=== PATIENT | male | born 1970 | race Caucasian/White ===

== ENCOUNTER 2017-01-31 22:04 | Inpatient (IN) | payer OTHER ==
[~2017-01-31] VITALS: Ht 188 cm; Wt 62.3 kg
[~2017-01-31 22:04] MED LIST: [UNRECOGNIZED DRUG - REMARK]
[2017-01-31] MEDS ORDERED: SODIUM CHLORIDE 0.9% 1L BAG IV* STA (22:22)
[2017-01-31 22:36] LABS: ADD SCAN DIFF NO
[2017-01-31 22:38] LABS: ABNORMAL IP MESSAGE 1; HEMATOCRIT 41.2 % (42.0-52.0); HEMOGLOBIN 14.3 g/dl (14.0-18.0); MEAN CORPUSCULAR HEMOGLOBIN 29.1 pg (29.0-33.0); MEAN CORPUSCULAR HGB CONC 34.7 g/dl (32.0-37.0); MEAN CORPUSCULAR VOLUME 83.7 fl (82.0-101.0); MEAN PLATELET VOLUME 10.3 fl (7.4-10.4); PLATELET COUNT 272 10^3/UL (140-415); RED BLOOD COUNT 4.92 10^6/ul (4.70-6.10); RED CELL DISTRIBUTION WIDTH 14.5 % (11.5-14.5); WHITE BLOOD COUNT 6.5 10^3/ul (4.8-10.8)
[2017-01-31 22:51] LABS: INR 1.1; PROTIME 14.2 Sec (12.2-14.2); PT RATIO 1.1
[2017-01-31 22:52] LABS: PARTIAL THROMBOPLASTIN TIME 24.9 Sec (25.0-35.0)
[2017-01-31] MEDS ORDERED: ONDANSETRON 4 MG INJ IV STA (22:52)
[2017-01-31] MEDS ORDERED: morphine 4 MG/ML VIAL IV STA (22:52)
[2017-01-31 23:00] LABS: ALANINE AMINOTRANSFERASE 18 IU/L (13-69); ALBUMIN 2.7 g/dl (3.3-4.9); ALBUMIN/GLOBULIN RATIO 0.71; ALKALINE PHOSPHATASE 131 IU/L (42-121); ANION GAP 20 (8-16); ASPARTATE AMINO TRANSFERASE 59 IU/L (15-46); BILIRUBIN,INDIRECT 0.7 mg/dl (0-1.1); BILIRUBIN,TOTAL 0.7 mg/dl (0.2-1.3); BLOOD UREA NITROGEN 15 mg/dl (7-20); CALCIUM 6.9 mg/dl (8.4-10.2); CARBON DIOXIDE 25 mmol/L (21-31); CHLORIDE 84 mmol/L (97-110); CREATININE 1.22 mg/dl (0.61-1.24); GLUCOSE 170 mg/dl (70-220); SODIUM 127 mmol/L (135-144); TOTAL PROTEIN 6.5 g/dl (6.1-8.1)
[2017-01-31 23:11] LABS: POTASSIUM 2.2 mmol/L (3.5-5.1)
[2017-01-31] MEDS ORDERED: metroNIDAZOLE 500 MG/NS (PMX) 100 ML IVPB STA (23:11)
[2017-01-31] MEDS ORDERED: PIPER-TAZO 3.375 GM IV (PMX) 100 ML IVPB STA (23:11)
--- NOTE | 2017-01-31 23:11 | RADRPT ---
PROCEDURE: Chest. CLINICAL INDICATION: Chest pain. TECHNIQUE: Single frontal view of the chest was obtained. COMPARISON: None. FINDINGS: The cardiac silhouette is within normal limits. The aortic arch is unremarkable. There is no focal consolidation, vascular congestion or pleural effusion. There is no pneumothorax. IMPRESSION: No evidence for active cardiopulmonary disease. .Wayne Abarca MD, MD Date Time Electronically viewed and signed by .Wayne Abarca MD, on 01/31/2017 23:11 .T/
[2017-01-31 23:12] LABS: TROPONIN-I < 0.012 ng/ml (0.00-0.12)
[2017-01-31] MEDS: POTASSIUM CHLORIDE 250 ML IVPB SCH (23:24)
[2017-01-31 23:57] LABS: LYMPHOCYTES # 1.8 10^3/ul (0.8-2.9); MONOCYTE # 0.3 10^3/ul (0.3-0.9); NEUTROPHIL # 2.7 10^3/ul (1.6-7.5)
[2017-02-01] VITALS (46 sets, daily range): BP systolic 69–102; BP diastolic 43–83; PULSE 100–156; RESP 18–57; TEMP 97.6; Ht 188 cm; Wt 62.3 kg
[2017-02-01] MEDS ORDERED: HYDROmorphONE 1 MG/ML SYG IV STA (00:50)
--- NOTE | 2017-02-01 01:31 | RADRPT ---
PROCEDURE: CT Abdomen and Pelvis without contrast. CLINICAL INDICATION: Sepsis, abdominal pain, history of Crohn's disease. TECHNIQUE: A CT scan of the abdomen and pelvis was performed without intravenous contrast. Cameron l and sagittal reformatted images were generated. Images were reviewed on a high-resolution PACS wor kstation. CTDIvol: 6.36 mGy. DLP: 411.33 mGy-cm. One or more of the following dose reduction techniques were used: - Automated exposure control. - Adjustment of the mA and/or kV according to patient size. - Use of iterative reconstruction technique. COMPARISON: None. FINDINGS: There is mild atelectasis in both lower lobes. Evaluation of the abdominal and pelvic viscera is limited by the lack of oral and intravenous contra st. The liver is enlarged (21.8 cm) and diffusely hypodense, consistent with fatty infiltration. There are stones in the gallbladder. The common bile duct is not dilated. The spleen is not enlarged. No pancreatic lesion is identified and there is no pancreatic ductal dilatation. The adrenal glands are unremarkable. The kidneys are normal in size. There is mild symmetric perinephric fat stranding, nonspecific No hy dronephrosis is seen. No urinary stone is identified. Wall thickening is noted along a loop of jejunum in the left abdominopelvic region. There is wall t hickening and pericolonic inflammation along the proximal and mid sigmoid colon, probably representi ng Crohn's colitis. There is a small to moderate amount of abdominal and pelvic hemoperitoneum, wit h several foci of gas along the right side of the mid sigmoid colon, suggestive of a perforation in this region. The appendix is dilated (10 mm) and there are a few foci of gas adjacent to its tip, h owever there is no significant periappendiceal inflammation. No definite abscess is identified. The urinary bladder is unremarkable. The pelvic organs are within normal limits. No lymphadenopathy is identified. There is a small volume of pelvic ascites. No pneumoperitoneum is seen. There are no arterial calcifications. No suspicious osseous lesion is idenitified. A left-sided trochanteric femoral nail is partially real ged. IMPRESSION: 1. Wall thickening and pericolonic inflammation along the proximal and mid sigmoid colon, probably representing Crohn's colitis. There is also wall thickening along the loop of jejunum in the left a bdominopelvic region, possibly representing Crohn's enteritis. 2. Small to moderate amount of pneumoperitoneum, consistent with a perforated viscus. There are se veral foci of gas along the right side of the mid sigmoid colon, suggestive of a perforation at this site. No definite abscess is identified. 3. Dilated appendix (10 mm), with a few foci of gas adjacent to its tip. There is no significant pe riappendiceal inflammation, however, suggesting that these are secondary findings related to the sma ll bowel and sigmoid colon pathology. 4. Hepatomegaly and fatty infiltration of the liver. 5. Cholelithiasis. Call report: A call report of the findings was made to Dr. Dave at 01:20 a.m. on 02/01/2017. RPTAT: HTAR .Jace Washburn MD, Date Time Electronically viewed and signed by .Jace Washburn MD, on 02/01/2017 01:31 .R/
--- NOTE | 2017-02-01 02:13 | ERA ---
ER Documentation Chief Complaint Date/Time DATE: 02/01/17 TIME: 02:10 Chief Complaint abd pain hx of crohn's HPI This is a 46-year-old male comes in because of 24 hours of abdominal pain getting progressively worse. No fevers no chills. Patient does have history of Crohn's. 2-3 episodes of diarrhea per hour over the past 24 hours. No blood in the diarrhea per the patient. He has noticed some mild abdominal distention as well. No fevers or chills. No other current complaints. ROS All systems reviewed and are negative except as per history of present illness. Medications Home Meds Reported Medications [Med For Chron's] No Conflict Check 06/02/16 Allergies Allergies: Coded Allergies: No Known Allergy (Unverified , 06/01/16) PMhx/Soc History of Surgery: Yes (ANAL FISTULA,LT LEG SURGERY) Anesthesia Reaction: No Hx Neurological Disorder: No Hx Respiratory Disorders: No Hx Cardiac Disorders: No Hx Psychiatric Problems: No Hx Miscellaneous Medical Probl: Yes (CHRONS DISEASE) Hx Alcohol Use: Yes Hx Substance Use: Yes Hx Tobacco Use: Yes Smoking Status: Former smoker Physical Exam Vitals Vital Signs Date Time Temp Pulse Resp B/P Pulse Ox O2 Delivery O2 Flow Rate FiO2 02/01/17 01:55 96.8 143 16 103/81 100 Nasal Cannula 02/01/17 00:07 120 16 120/80 100 Nasal Cannula 01/31/17 23:31 130 16 120/80 100 Nasal Cannula 01/31/17 22:19 128 16 86/66 100 Room Air 01/31/17 22:15 Nasal Cannula 2 01/31/17 22:12 96.8 163 20 78/53 97 Physical Exam Const: [] Head: Atraumatic Eyes: Normal Conjunctiva ENT: Normal External Ears, Nose and Mouth. Neck: Full range of motion..~ No meningismus. Resp: Clear to auscultation bilaterally Cardio: Regular rate and rhythm, no murmurs Abd: Soft, non tender, non distended. Normal bowel sounds Skin: No petechiae or rashes Back: No midline or flank tenderness Ext: No cyanosis, or edema Neur: Awake and alert Psych: Normal Mood and Affect Result Diagram: 01/31/17222301/31/172223 Results 24 hrs Laboratory Tests Test 01/31/17 22:24 02/01/17 00:32 White Blood Count 6.510^3/ul Red Blood Count 4.9210^6/ul Hemoglobin 14.3g/dl Hematocrit 41.2% Mean Corpuscular Volume 83.7fl Mean Corpuscular Hemoglobin 29.1pg Mean Corpuscular Hemoglobin Concent 34.7g/dl Red Cell Distribution Width 14.5% Platelet Count 45538^3/UL Mean Platelet Volume 10.3fl Neutrophils % 41.0% Band Neutrophils % 26.0% Lymphocytes % 28.0% Reactive Lymphocytes % 1.0% Monocytes % 4.0% Eosinophils % % Nucleated Red Blood Cells % 1.0/100WBC Neutrophils # 2.710^3/ul Lymphocytes # 1.810^3/ul Monocytes # 0.310^3/ul Eosinophils # 10^3/ul Prothrombin Time 14.2Sec Prothrombin Time Ratio 1.1 INR International Normalized Ratio 1.10 Activated Partial Thromboplast Time 24.9Sec Sodium Level 127mmol/L Potassium Level 2.2mmol/L Chloride Level 84mmol/L Carbon Dioxide Level 25mmol/L Anion Gap 20 Blood Urea Nitrogen 15mg/dl Creatinine 1.22mg/dl Glucose Level 170mg/dl Lactic Acid Level 6.8mmol/L 3.9mmol/L Calcium Level 6.9mg/dl Total Bilirubin 0.7mg/dl Direct Bilirubin 0.00mg/dl Indirect Bilirubin 0.7mg/dl Aspartate Amino Transf (AST/SGOT) 59IU/L Alanine Aminotransferase (ALT/SGPT) 18IU/L Alkaline Phosphatase 131IU/L Troponin I < 0.012ng/ml Total Protein 6.5g/dl Albumin 2.7g/dl Globulin 3.80g/dl Albumin/Globulin Ratio 0.71 Current Medications Medications (Trade) Dose Ordered Sig/Malcom Route PRN Reason Start Time Stop Time Status Last Admin Dose Admin Sodium Chloride (NS) 2,020 ml BOLUS OVER 2 HOURS STAT IV* 01/31/17 22:22 01/31/17 22:23 DC 01/31/17 22:24 Morphine Sulfate (morphine) 4 mg ONCE STAT IV 01/31/17 22:52 01/31/17 22:53 DC 01/31/17 22:58 Ondansetron HCl 4 mg 4 mg ONCE STAT IV 01/31/17 22:52 01/31/17 22:53 DC 01/31/17 22:58 Piperacillin Sod/ Tazobactam Sod 100 ml @ 200 mls/hr ONCE STAT IVPB 01/31/17 23:11 01/31/17 23:40 DC 01/31/17 23:21 Metronidazole 100 ml @ 100 mls/hr ONCE STAT IVPB 01/31/17 23:11 02/01/17 00:10 DC 02/01/17 00:05 Potassium Chloride (KCl 40 MEQ/250 ML NS) 250 ml @ 62.5 mls/hr Q4H IVPB 01/31/17 23:30 02/01/17 07:29 01/31/17 23:24 Hydromorphone HCl (Dilaudid) 1 mg ONCE STAT IV 02/01/17 00:50 02/01/17 00:53 DC 02/01/17 00:59 Procedures/MDM Patient's infectious symptoms have not stabilized and the patient is at risk of rapid decompensation. The patient will be admitted for careful hydration, antibiotic therapy, and infectious source control. Severe Sepsis Assessment: Infectious Source: Intestinal perforation End organ damage indicated by: Lactate > 2.0 mmol/L Hypotension( SBP < 90 or >40 mmHG drop or MAP < 65) Severe Sepsis Managment: Blood Cultures X 2 before broad spectrum antibiotics initiated within 3 hours of recognition. 30 ml/kg NS bolus Completed Initial Lactate: 6.8 Repeat Lactate pending Critical Care: Time: 45 minutes Treatments/Evaluations: Emergent fluid management, while maintaining close respiratory support. Immediate broad spectrum antibiotic therapy. Simultaneous assessment for possible sources in order to direct therapy. Consideration for invasive and chemical support to prevent respiratory or cardiac collapse. Septic Shock Assessment (1 hour post 30 ml/kg fluid bolus): Hypotension (SBP < 90 or 40 mmHg drop, MAP < 65): No Lactic acid > 4.0 yes Perfusion Reassessment for Septic Shock: Temp 98.9, Pulse 113, RR 18, BP 120/80 Heart Exam: Tachycardic Lung Exam: No Crackles Capillary Refill: Delayed Peripheral Pulses: Radially present Skin: Mottled, pale Accepting Care Team: Current data and ongoing care discussed. Time: 2 AM Primary Provider: Hospitalist Consulting: XOXOXO Outstanding Data: none Dr. Rankin was consulted from surgery for sigmoid perforation. Per his recommendations, patient admitted to ICU. Hospitalist made aware. Hospitalist evaluated patient here in the ER. Chest X-ray 1V Interpreted by me: Soft Tissue: No acute abnormalities Bones: No acute abnormalities Mediastinum/Cardiac Silhouette/Lungs: No acute abnormalities EKG: Rate/Rhythm: Sinus tachycardia at 1 35 bpm QRS, ST, T-waves: [No changes consistent w/ acute ischemia] Impression: Sinus tachycardia Departure Diagnosis: Primary Impression: Sepsis Qualified Code: A41.9 - Sepsis, due to unspecified organism Additional Impression: Intestinal perforation Condition: Critical CATIE LEBLANC Feb 01, 2017 02:13
[2017-02-01] MEDS ORDERED: D5W-0.45 NACL + KCL 20 MEQ 1,000 ML IV SCH (03:04)
[2017-02-01] MEDS ORDERED: ONDANSETRON 4 MG INJ IV PRN (03:30)
[2017-02-01] MEDS ORDERED: SOD CHLORIDE 0.9% 250 ML IV ONE (03:30)
[2017-02-01] MEDS: PIPER-TAZO 3.375 GM IV (PMX) 100 ML IVPB SCH ×4 (03:30→23:10)
[2017-02-01] MEDS: POTASSIUM CHLORIDE 250 ML IVPB SCH ×2 (03:30→04:30)
[2017-02-01] MEDS ORDERED: morphine 2 MG INJ IV PRN (03:30)
[2017-02-01] MEDS ORDERED: D5-NS + KCL 20 MEQ 1,000 ML IV SCH (03:30)
[2017-02-01 05:25] LABS: ADD SCAN DIFF NO
[2017-02-01 05:33] LABS: ABNORMAL IP MESSAGE 1; BASOPHIL # 0.1 10^3/ul (0.0-0.1); BASOPHILS % 1.3 % (0.0-2.0); HEMATOCRIT 37.2 % (42.0-52.0); HEMOGLOBIN 12.9 g/dl (14.0-18.0); LYMPHOCYTES # 0.3 10^3/ul (0.8-2.9); LYMPHOCYTES % 6.9 % (15.0-51.0); MEAN CORPUSCULAR HEMOGLOBIN 29.1 pg (29.0-33.0); MEAN CORPUSCULAR HGB CONC 34.7 g/dl (32.0-37.0); MEAN PLATELET VOLUME 10.8 fl (7.4-10.4); MONOCYTE # 0.3 10^3/ul (0.3-0.9); MONOCYTES % 5.6 % (0.0-11.0); NEUTROPHIL # 3.8 10^3/ul (1.6-7.5); NEUTROPHILS % 85.1 % (39.0-77.0); NUCLEATED RED BLOOD CELLS% 0.4 /100WBC (0.0-0.0); PLATELET COUNT 193 10^3/UL (140-415); RED BLOOD COUNT 4.43 10^6/ul (4.70-6.10); RED CELL DISTRIBUTION WIDTH 14.6 % (11.5-14.5); WHITE BLOOD COUNT 4.5 10^3/ul (4.8-10.8)
[2017-02-01 05:38] LABS: ALBUMIN/GLOBULIN RATIO 0.68; BILIRUBIN,INDIRECT 0.4 mg/dl (0-1.1); BILIRUBIN,TOTAL 0.4 mg/dl (0.2-1.3); CREATININE 1.26 mg/dl (0.61-1.24); TOTAL PROTEIN 4.9 g/dl (6.1-8.1)
[2017-02-01 05:45] LABS: POTASSIUM 2.6 mmol/L (3.5-5.1)
[2017-02-01 05:46] LABS: CALCIUM 5.9 mg/dl (8.4-10.2); MAGNESIUM 0.6 mg/dl (1.7-2.5)
[2017-02-01] MEDS ORDERED: SODIUM CHLORIDE 0.9% 1L BAG IV* STA (05:46)
[2017-02-01] MEDS ORDERED: POTASSIUM CHLORIDE 20 MEQ in SOD CHLORIDE 0.9% 100 ML IVPB ONE (06:30)
[2017-02-01] MEDS ORDERED: CALCIUM GLUCONATE 10% 2 GM in SOD CHLORIDE 0.9% 100 ML IVPB ONE ×2 (06:30→16:00)
[2017-02-01] MEDS ORDERED: MAGNESIUM SULFATE 6 GM in SOD CHLORIDE 0.9% 100 ML IVPB ONE (06:30)
[2017-02-01] MEDS: PANTOPRAZOLE 40 MG INJ IV SCH (06:35)
[2017-02-01] MEDS: MAG SULFATE 2GM IN 50 ML IVPB SCH ×3 (07:23→11:18)
--- NOTE | 2017-02-01 08:22 | HP ---
DATE OF ADMISSION: 01/31/2017 CHIEF COMPLAINT: Abdominal pain and diarrhea. HISTORY OF PRESENT ILLNESS: The patient is a 46-year-old male with a history of Crohn's disease sterling gnosed 4 years ago, and history of anal fistula, who presented to the emergency department complaini ng of abdominal pain, diarrhea, and vomiting. He stated the pain started 3 weeks ago and was associ ated with watery diarrhea, which according to him he was experiencing every 45 minutes. His vomitin g was described as nonbilious, nonbloody. He also denies blood in his diarrhea. Over the past 2 da ys; however, he only had 1 episode of diarrhea on each day, so diarrhea has gotten better over the p ast 2 days. He denied any chest pain, shortness of breath, fever, or chills. When he presented to the ER, he was hypotensive with a blood pressure of 78/53, tachycardia with a h eart rate of 163, respiratory rate 20, temperature 96.8, oxygen saturation 97%. Laboratory value sh ows a sodium of 127, potassium 2.2, chloride 84, lactic acid 6.8, calcium 6.9 with albumin of 2.7, A ST 59, alkaline phosphatase 131. CT of abdomen and pelvis without contrast was done, it showed findings of Crohn's colitis and possib ly Crohn's enteritis. Also, he was noted to have a small to moderate amount of pneumoperitoneum, co nsistent with a perforated viscus, right side of the mid sigmoid colon perforation without definite abscess. Also he was noted to have a dilated appendix with a few foci of gas adjacent without significant periappendiceal inflammation, so this is suggestive that this is a secondary finding re lated to the small bowel and sigmoid colon pathology. He also has cholelithiasis and hepatomegaly w ith fatty infiltration of the liver. Patient was started on antibiotics and given IV fluid, pain me dication, and his potassium was replaced. Dr. Kuo, the on-call surgeon, is aware of patient's pr esentation, who recommended an ICU admission. REVIEW OF SYSTEMS: A 12-point review of systems was performed and negative except as mentioned in H PI. PAST MEDICAL HISTORY: As per HPI. PAST SURGICAL HISTORY: He has a knee surgery and a possible surgery for anal fistula. SOCIAL HISTORY: He used to smoke, but he said he quit about a month ago. He also used to drink on a weekly basis in the past. Denied a history of illicit drug use. FAMILY HISTORY: Father with history of thyroid cancer. ALLERGIES: NO KNOWN DRUG ALLERGIES. HOME MEDICATIONS: He takes medication for Crohn's, but he does not remember the name. PHYSICAL EXAMINATION: VITAL SIGNS: Blood pressure 103/81, heart rate 143, respiratory rate 16, temperature 96.8, oxygen s aturation 100% on 2 liters. GENERAL: The patient looks uncomfortable because of the abdominal pain and also he just started hav ing continuous hiccups. He is, however, answering questions appropriately, but had to stop talking between obtain because of pain. HEENT: No obvious head deformity. No scleral icterus. Pupils reactive to light. CARDIOVASCULAR: Tachycardic, regular rhythm. LUNGS: Clear anteriorly. ABDOMEN: Not distended, was tender. He does have positive bowel sounds. EXTREMITIES: No edema. NEUROLOGIC: Unable to fully assess because of his pain, but he was noted to be able to spontaneousl y move all his extremities. LABORATORY: Pertinent positive results as mentioned in the HPI. IMAGING: CT abdomen and pelvis with results as mentioned in the HPI, and chest x-ray with no eviden ce for active cardiopulmonary disease. IMPRESSION: 1. Perforated sigmoid colon. 2. Abdominal pain, secondary to above. 3. History of Crohn's disease, diagnosed 4 years ago. 4. Diarrhea, likely secondary to Crohn's flare up. 5. Severe hypokalemia. 6. Hyponatremia. 7. Lactic acidosis. 8. Sinus tachycardia, likely a combination of pain and dehydration from excessive diarrhea. PLAN: We will admit to ICU. We will keep n.p.o. with IV fluids. He will be placed on Zofran. We will provide pain medication as needed. We will replace electrolytes. We will follow up on culture results. Currently, he is awaiting surgical evaluation and he is likely to go to the operating [place] [facility] in the morning. We will trend his lactic acid. We will also place a gastroenterology consult to help manage his Crohn's disease. He only had 2 episodes of diarrhea over the past 2 days, and prior to that for 3 weeks he had been having diarrhea every 45 minutes. We will collect stool sample, as he does have diarrhea again. Given perforated colon with lactic acidosis/infection, I am kind of h esitant to give him steroids, given the possible infectious process, and we will leave the decision up to GI. Further workup and management will be per clinical course. Dictated By: CATIE GALAN/YAN Conf#: [id number] DID#: [id number]
--- NOTE | 2017-02-01 09:12 | HPN ---
Date/Time of Note Date/Time of Note DATE: 02/01/17 TIME: 09:11 Interval H&P Admission Note Pt. seen H&P reviewed: No system changes Pt. seen H&P reviewed. No system changes (I attest that I have seen and examined the patient and reviewed the operation in detail, as well as its risks , benefits and alternatives of the operation). I attest that I have seen and examined the patient and reviewed in detail the operation, and its associated risks, benefits and alternative. I have answered all the patient's questions to the best of my ability and the patient wishes to proceed. Please refer to rest of electronic medical record for additional updates. TI HILTON M.D. Feb 01, 2017 09:12
[2017-02-01] MEDS: METOCLOPRAMIDE 10 MG INJ IV SCH ×3 (09:49→23:10)
--- NOTE | 2017-02-01 09:59 | CONS ---
[facility] INITIAL INPATIENT CONSULTATION NOTE DATE OF CONSULTATION: 02/01/2017 PLACE OF SERVICE: [facility] Emergency Department IMPRESSION AND PLAN: A very pleasant, but unfortunate 46-year-old gentleman with history of Crohn's, presenting with Crohn's colitis that appears to be moderate to severe, with perhaps a small perforation around the sigmoid colon. He does not present a picture of a major contamination of the abdominal cavity, but given his slight peritoneal signs and abdominal pain as well as tachycardia I have recommended that we consider laparoscopic exploration with washout, and if there is enough evidence of uncontrolled perforation to then consider a partial enterectomy or colon resection, and possible ostomy as a consequence. He also has fatty liver disease on the CAT scan, and we can consider doing a biopsy of the liver at that time if needed. I explained the operation and the rationale behind our recommendation as well as the risks, benefits and alternatives in detail with the patient along with his father at bedside, and obtained a consent for the operation. Patient and family appeared to understand and agreed with the plan. With above assessment, I recommend the followin. Continue aggressive resuscitation. 2. Continue broad-spectrum antimicrobials. 3. Check lactic acid every 6 hours until stabilized. 4. To the operating room in the next available time slot today for above operation. Thank you again for allowing us to participate in the care of this very pleasant gentleman and his wonderful family. If there are any questions, please feel free to contact me at . Total visit time 45 minutes, of which more than half was spent in [id number] discussion with the patient, discussions with his family, as well as coordination of care between multiple physicians and providers. UPDATED CLINICAL SUMMARY: Patient is a very pleasant 46-year-old gentleman with history of Crohn's disease as well as prior surgery for anal fistula approximately 5 years ago, and a torn meniscus repair on the left knee, presenting with abdominal pain associated with a few weeks' duration of diarrhea. COMORBIDITIES: 1. Crohn's disease. 2. Repair of anal fistula approximately 5 years ago. 3. Torn meniscus on the left knee, status post repair. DATE OF ADMISSION: 02/01/2017 HISTORY OF PRESENT ILLNESS: The patient is a very pleasant 46-year-old gentleman with above-mentioned comorbidities whom we were kindly asked to consult regarding management of abdominal pain. The patient's Crohn's disease was diagnosed approximately 4 years ago and had a history of anal fistula repair around the same time. He reported having diarrhea for a number of weeks and associated with recent nausea and vomiting and abdominal pain that brought him to the emergency department. There was no blood in his urine diarrhea or in his urine. His emesis also was nonbloody. The patient's initial presentation was concerning for shock with blood pressure 78/53 and tachycardic in 140s to 160s. Interestingly, his white blood cell count was normal, but his lactic acid was 6.8. He had a CT scan of abdomen and pelvis that demonstrated Crohn's colitis and possible Crohn's enteritis. He also had small amount of pneumoperitoneum with small bubbles of air around the colon and perhaps slight amount in the underside of the diaphragm, but no major amount of free air and no abscess noted. The patient was resuscitated and showed slight improvement in his tachycardia and his lactic acid in the ensuing next few hours. Note that I personally reviewed the patient's CT scan at approximately 1:30 a.m. and my impression was that of a contained perforation, and the patient needed further resuscitation, and because of this we did not schedule an emergency operation in the middle of the night. This morning he reported feeling slightly better, but still had abdominal pain. No other major complaints. ALLERGIES: NO KNOWN DRUG ALLERGIES. MEDICATIONS: We do not have a list of his medications currently. INPATIENT MEDICATIONS: Include: 1. DuoNeb. 2. Dilaudid. 3. Magnesium sulfate. 4. Reglan. 5. Morphine. 6. Zofran. 7. Protonix IV. 8. Zosyn. 9. Potassium chloride. SOCIAL HISTORY: The patient lives with his family. He reported quitting smoking about a month ago. He drinks on social occasions and does not use any intravenous drugs. FAMILY HISTORY: No mention of major medical, surgical, or oncologic problems in the family. There is history of thyroid cancer in the patient's father, but no other malignancies of the intestine or history of Crohn's disease mentioned. REVIEW OF SYSTEMS: Other than the above-mentioned, there are no other pertinent positives or pertinent negatives in a complete 14-point review of systems. PHYSICAL EXAMINATION: GENERAL: The patient appears to be a very pleasant gentleman of non- descent, lying in bed relatively comfortably and in no acute distress. BMI 19.4. VITAL SIGNS: Temperature 97.6. Blood pressure 94/67, pulse 148, respiratory rate 16, pulse oximetry 95% on 2 liters of nasal cannula. HEENT: Normocephalic and atraumatic. Extraocular muscles and hearing are grossly intact bilaterally and symmetrically. Sclerae are nonicteric. Oral cavity is clear; oral mucosa appeared to be pink and moist. Dentition: fair. NECK: Supple. There is no lymphadenopathy or JVD. There is no submental, submandibular or supraclavicular lymphadenopathy. CHEST: Rises symmetrically with each breath; patient is breathing comfortably. There are no audible wheezes, rales or rhonchi on the gross exam. HEART: Pulse is regular and palpable on the right wrist. Capillary refill was normal. Carotid pulses are palpable bilaterally and symmetrically in the neck. EXTREMITIES: Lower extremities contain no pitting edema around the ankles bilaterally and symmetrically. ABDOMEN: Shows a slightly distended abdomen that is soft, but tender to palpation in all quadrants with mild guarding and mild peritoneal signs. There is no evidence of organomegaly, caput medusae, engorged subcutaneous veins, or obvious evidence of ascites. SKIN: Appears to be pink and feels warm to touch. NEUROLOGIC: Awake, alert, and follows commands appropriately. LABORATORY VALUES: White blood cell count 4.5, hemoglobin 12.9, platelets 193, 000. Electrolytes show sodium 133, potassium 2.6, improved from admission level of 2.2. CO2 22, creatinine 1.26, up from 1.22. Lactic acid was 6.8, on admission 3.9 following admission around 12:30 midnight, and then 4.8 at approximately 3:50 a.m. Calcium 5.9, magnesium 0.6, total bilirubin 0.4, AST 109, ALT 34, alkaline phosphatase 77, albumin 2.0 with rehydration. INR 1.10. IMAGING: As above. Note that I personally reviewed the CT scan as mentioned above, at approximately 1:30 a.m. when I was initially called with the patient' s information, and I agree in general with their overall reported findings. Note that the official report mentions wall thickening and pericolonic inflammation along the proximal and mid sigmoid colon, probably representing Crohn's colitis. There is also wall thickening along the loop of jejunum in the left abdominopelvic region, possibly representing Crohn's enteritis. There is a small to moderate amount of pneumoperitoneum consistent with a perforated viscus. Several foci of gas along the right side of the mid sigmoid colon are present, suggestive of a perforation at this site. No definite abscess was identified. The appendix was dilated to 10 mm with a few foci of gas adjacent to its tip. There was no significant periappendiceal inflammation. There is hepatomegaly and fatty infiltration of the liver, and cholelithiasis noted. Dictated By: TI RICHMOND/YAN Conf#: [id number] DID#: [id number]
[2017-02-01] MEDS: LEVALBUTEROL (NEB) 0.63 MG/3 ML AMP HHN PRN ×2 (10:47→15:29)
[2017-02-01] MEDS ORDERED: SOD CHLORIDE 0.9% 1,000 ML IV ONE (11:30)
--- NOTE | 2017-02-01 12:00 | CONS ---
DATE OF ADMISSION: 02/01/2017 DATE OF CONSULTATION: TYPE OF CONSULTATION: Pulmonary. REASON FOR CONSULTATION: Shortness of breath. Thank you, Dr. Kuo, for this consultation. HISTORY OF PRESENT ILLNESS: This is a 46-year-old gentleman with a history of Crohn's disease, with a history of anal fistula repair 5 years ago, comes in with a several-day history of increasing abd ominal pain, nausea, vomiting and increasing abdominal distention. He had nonbloody emesis. No rect al bleeding; however, on admission found to have significant leukocytosis and lactic acidosis. CT o f the abdomen was performed and demonstrated colitis with possible enteritis and pneumoperitoneum co ncerning for possible perforation. The patient is to be taken to the OR emergently this morning by Dr. Kuo for exploration and currently remains mildly tachycardic and tachypneic. PAST MEDICAL HISTORY: Crohn disease and torn left meniscus, status post repair. SOCIAL HISTORY: He has a positive tobacco history, smoked half a pack a day up until 2 weeks ago. D enies any history of inhaler use. No history of drug use. MEDICATIONS: Per chart. ALLERGIES: NONE. FAMILY HISTORY: Noncontributory. SYSTEMS REVIEW: A 14-point review of systems was negative other than that mentioned above. PHYSICAL EXAMINATION: GENERAL: Well-nourished, well-developed gentleman, appears comfortable at rest, no acute distress. VITAL SIGNS: Temperature 98, pulse is 140, blood pressure 97/67, O2 saturation 96% on 2 L nasal can nula. NECK: Supple. No JVD or lymphadenopathy. CARDIAC: S1, S2, no added sounds or murmurs. CHEST: Diminished air entry bilaterally. ABDOMEN: Distended with mild tenderness, diminished bowel sounds. EXTREMITIES: No cyanosis, clubbing or edema. NEUROLOGIC: Generalized weakness. LABORATORY DATA: White count 4.5, hemoglobin 12.9, platelets of 193. Sodium 133, potassium 2.6, BU N 18, creatinine 1.26, bicarbonate was 22. Lactic acid initially 6.8, now 4.8, calcium 5.9. CT abdomen shows Crohn's colitis, small pneumoperitoneum with perforated viscus. IMPRESSION AND PLAN: 1. Acute abdomen. 2. Possible perforated bowel. 3. Severe sepsis. 4. Hypoxemia, likely secondary to hypoventilation from distended abdomen and diaphragmatic splintin g. Patient will require: 1. Emergent surgical evaluation with exploratory laparotomy. 2. Correction of electrolyte abnormalities preoperatively. 3. Adequate pain control. 4. DVT and GI prophylaxis. 5. Post-extubation incentive spirometry and surgical recommendations. Dictated By: RAMON CAMPA/YAN Conf#: [id number] DID#: [id number]
[2017-02-01 12:58] LABS: ADD SCAN DIFF NO
[2017-02-01 13:01] LABS: ABNORMAL IP MESSAGE 1; HEMATOCRIT 35.3 % (42.0-52.0); HEMOGLOBIN 11.9 g/dl (14.0-18.0); MEAN CORPUSCULAR HGB CONC 33.7 g/dl (32.0-37.0); MEAN CORPUSCULAR VOLUME 85.9 fl (82.0-101.0); MEAN PLATELET VOLUME 10.9 fl (7.4-10.4); PLATELET COUNT 133 10^3/UL (140-415); RED BLOOD COUNT 4.11 10^6/ul (4.70-6.10); RED CELL DISTRIBUTION WIDTH 14.9 % (11.5-14.5); WHITE BLOOD COUNT 5.9 10^3/ul (4.8-10.8)
[2017-02-01 13:17] LABS: ALBUMIN 1.8 g/dl (3.3-4.9); ALBUMIN/GLOBULIN RATIO 0.64; BILIRUBIN,INDIRECT 0.2 mg/dl (0-1.1); BILIRUBIN,TOTAL 0.2 mg/dl (0.2-1.3); CALCIUM 6.1 mg/dl (8.4-10.2); CREATININE 1.19 mg/dl (0.61-1.24); MAGNESIUM 2.4 mg/dl (1.7-2.5); PHOSPHORUS 3.9 mg/dl (2.5-4.9); TOTAL PROTEIN 4.6 g/dl (6.1-8.1)
[2017-02-01 14:07] LABS: LYMPHOCYTES # 0.6 10^3/ul (0.8-2.9); MONOCYTE # 0.9 10^3/ul (0.3-0.9); NEUTROPHIL # 4.2 10^3/ul (1.6-7.5); PLATELET ESTIMATE PLT APPEAR ADEQUATE
[2017-02-01] MEDS: NS + KCL 20 MEQ 1,000 ML IV SCH ×3 (14:30→23:11)
[2017-02-01] MEDS ORDERED: POTASSIUM CHLORIDE 250 ML IVPB ONE (14:30)
[2017-02-01] MEDS ORDERED: SOD CHLORIDE 0.9% 500 ML IV ONE (14:30)
[2017-02-01] MEDS ORDERED: PROPOFOL 20 ML ONE (16:50)
[2017-02-01] MEDS ORDERED: NEOSTIGMINE 3 MG/3 ML SYRINGE ONE (16:50)
[2017-02-01] MEDS ORDERED: ROCURONIUM 50 MG INJ ONE (16:50)
[2017-02-01] MEDS ORDERED: MIDAZOLAM 1 MG/ML 2 ML INJ ONE ×2 (16:50→18:02)
[2017-02-01] MEDS ORDERED: GLYCOPYRROLATE 0.4 MG INJ ONE (16:50)
[2017-02-01] MEDS ORDERED: LIDOCAINE 2% (SDV) 5 ML INJ ONE (16:50)
[2017-02-01] MEDS ORDERED: FENTAnyl 50 MCG/ML VIAL ONE ×2 (16:51→18:12)
[2017-02-01] MEDS ORDERED: HYDROCORTISONE 100 MG INJ ONE (17:20)
[2017-02-01] MEDS ORDERED: BUPIVACAINE 0.25%/EPI (SDV) 30 ML INJ ONE (17:47)
[2017-02-01] MEDS ORDERED: BUPIVACAINE 0.25%/EPI (SDV) 30 ML INJ INJ ONE (18:18)
[2017-02-01] MEDS ORDERED: FUROSEMIDE 20 MG INJ ONE (19:23)
[2017-02-01] MEDS ORDERED: NA PHOSPHATE/BIPHOS 133 ML ENEMA PR PRN (20:30)
[2017-02-01] MEDS ORDERED: DOCUSATE SODIUM 100 MG CAP PO PRN (20:30)
[2017-02-01] MEDS ORDERED: BISACODYL 10 MG SUPP PR PRN (20:30)
[2017-02-01] MEDS ORDERED: ALBUMIN HUMAN 5% 250 ML ONE ×2 (20:50→21:03)
--- NOTE | 2017-02-01 20:50 | OPR ---
Date/Time of Note Date/Time of Note DATE: 02/01/17 TIME: 20:48 Operative Report Free Text/Dictation [facility] Immediate Post Operative Note: Pre-op Diagnosis: perforated viscus in the setting of Crohn's dz Post-Op Diagnosis: perforated sigmoid colon in the setting of Crohn's dz Procedure: lap to open Cronin's procedure with end colostomy, liver biopsy and abdominal lavage with MARTIN Surgeon: Raina Hilton MD Technology Training Associate: none [facility] Anesthesiologist: Dr. Messer Findings: as above EBL: 200 ml Blood Products: none Specimen: sigmoid colon and liver core needle biopsy seg 5 (x3 cores) Complication: None Disposition: to pacu Disclaimer: Inadvertent spelling and grammatical errors are likely due to EHR/ dictation use and do not reflect on the quality of the delivered patient care. TI HILTON M.D. Feb 01, 2017 20:50
[2017-02-01 21:12] LABS: ADD SCAN DIFF NO
[2017-02-01 21:13] LABS: ABNORMAL IP MESSAGE 1; BASOPHILS % 0.4 % (0.0-2.0); HEMATOCRIT 35.3 % (42.0-52.0); HEMOGLOBIN 11.2 g/dl (14.0-18.0); LYMPHOCYTES # 0.3 10^3/ul (0.8-2.9); MEAN CORPUSCULAR HEMOGLOBIN 28.4 pg (29.0-33.0); MEAN CORPUSCULAR HGB CONC 31.7 g/dl (32.0-37.0); MEAN CORPUSCULAR VOLUME 89.6 fl (82.0-101.0); MEAN PLATELET VOLUME 11.3 fl (7.4-10.4); MONOCYTE # 0.3 10^3/ul (0.3-0.9); MONOCYTES % 4.5 % (0.0-11.0); NEUTROPHIL # 6.5 10^3/ul (1.6-7.5); NEUTROPHILS % 89.5 % (39.0-77.0); NUCLEATED RED BLOOD CELLS% 0.3 /100WBC (0.0-0.0); PLATELET COUNT 110 10^3/UL (140-415); RED BLOOD COUNT 3.94 10^6/ul (4.70-6.10); RED CELL DISTRIBUTION WIDTH 15.5 % (11.5-14.5); WHITE BLOOD COUNT 7.3 10^3/ul (4.8-10.8)
[2017-02-01 21:18] LABS: LYMPHOCYTES % 4.2 % (15.0-51.0)
[2017-02-01 21:23] LABS: ALBUMIN 1.7 g/dl (3.3-4.9); POTASSIUM 3.3 mmol/L (3.5-5.1)
[2017-02-01 21:24] LABS: INR 1.37; PROTIME 16.9 Sec (12.2-14.2); PT RATIO 1.3
[2017-02-01 21:25] LABS: CREATININE 1.24 mg/dl (0.61-1.24); MAGNESIUM 2.3 mg/dl (1.7-2.5); PARTIAL THROMBOPLASTIN TIME 37.9 Sec (25.0-35.0); PHOSPHORUS 5.5 mg/dl (2.5-4.9)
[2017-02-01 21:26] LABS: ALBUMIN/GLOBULIN RATIO 0.68; BILIRUBIN,INDIRECT 0.1 mg/dl (0-1.1); BILIRUBIN,TOTAL 0.1 mg/dl (0.2-1.3); TOTAL PROTEIN 4.2 g/dl (6.1-8.1)
[2017-02-01 21:40] LABS: AADO2 Arterial 348.6 mmHg (7.0-24.0); Allen Test ACCEPTAB; Arterial Base Excess -11.8 mmol/L (-3.0-3); Arterial COHb 0.3 % (0.0-3.0); Arterial Fraction of Oxyhgb 96.6 % (93.0-99.0); Arterial HCO3 14.5 mmol/L (22.0-26.0); Arterial MetHb 0.1 % (0.0-1.5); Arterial Total Hemglobin 10.6 g/dl (12.0-18.0); Blood Gas Low PEEP Setting 0 cmH2O; MODE VENT - AC
[2017-02-01] MEDS: HYDROmorphONE 1 MG/ML SYG IV PRN (21:44)
[2017-02-01] MEDS ORDERED: DEXTROSE 50% 50 ML SYRINGE ONE (22:02)
[2017-02-01] MEDS ORDERED: DEXTROSE 50% 50 ML SYRINGE IV STA (22:07)
--- NOTE | 2017-02-01 22:36 | RADRPT ---
PROCEDURE: XR Chest. CLINICAL INDICATION: Intubation. TECHNIQUE: Portable AP supine view of the chest was obtained. COMPARISON: 01/31/2017 FINDINGS: The cardiomediastinal silhouette is within normal limits. Distal tip of the new endotracheal tube i s in good position projecting 5.2 cm above the hira. A new nasogastric/orogastric tube tip is bel ow the diaphragm and inferior margin of the exposure in the region of the mid stomach. Interval dev elopment of bibasilar subsegmental atelectasis worse on the left is seen. The osseous structures ar e intact with no evidence for acute abnormality. RPTAT:HJJR IMPRESSION: 1. Distal tip of the new endotracheal tube is in good position projecting 5.2 cm above the hira. 2. New nasogastric/orogastric tube distal tip is below the inferior margin of the exposure within t he region of the stomach. 3. Development of bibasilar subsegmental atelectasis compared to 01/31/2017. Physician Myron Date Time Electronically viewed and signed by Physician Myron on 02/01/2017 22:36 JR/
[2017-02-01] MEDS: PROPOFOL 100 ML IV SCH (23:19)
[2017-02-02] VITALS (60 sets, daily range): BP systolic 85–121; BP diastolic 53–78; PULSE 105–141; RESP 12–36
--- NOTE | 2017-02-02 00:50 | OPR ---
[facility] OPERATIVE NOTE DATE OF OPERATION: 02/01/2017 PLACE OF SERVICE: [facility] PREOPERATIVE DIAGNOSES: 1. Crohn disease with perforated bowel. 2. Repair of anal fistula approximately 5 years ago. 3. Torn meniscus on the left knee status post repair. POSTOPERATIVE DIAGNOSES 1. Crohn disease with perforation of sigmoid colon and sepsis. 2. Repair of a fistula approximately 5 years ago. 3. Torn meniscus on the left knee status post repair. OPERATION PERFORMED: 1. Laparoscopic exploration converted to open sigmoid colectomy with Deena type procedure and end colostomy. 2. Core needle liver biopsy, segment 5 x3. 3. Lysis of adhesions. 4. Abdominal lavage. SURGEON: Ti Kuo MD HEATING AND VENTILATING DRAFTER: None. ANESTHESIA: General endotracheal tube anesthesia. ANESTHESIOLOGIST: Marcio Dougherty MD BRIEF SUMMARY: An otherwise uncomplicated diagnostic laparoscopy was converted first to hand assist and then to open exploration when perforated sigmoid colon was found and it was resected with a Deena type procedure and end colostomy as well as core needle liver biopsy, segment 5, due to presence of fatty liver disease, lysis of adhesions, and abdominal lavage. BRIEF HISTORY: The patient is a very pleasant 46-year-old gentleman with above- mentioned comorbidities who was admitted through the emergency department with what appeared to be a perforated viscus in the setting of Crohn disease. We spent a number of hours trying resuscitate the patient and even though he was somewhat improved with IV fluids and intravenous antimicrobials, his lactic acid was still in a 4.5 range and he had peritoneal type signs. I had consented the patient for an exploration and clearly indicated to him and his family that the operation would depend completely on what we find in the operating room. I explained to them the range of different findings of which would be anywhere from a clean contained perforation of the colon to a perforation that is jonathan and presence of stool, and the possibility of operations would include laparoscopic lavage versus exploration versus bowel resection and possible need for an ostomy placement. We also reviewed the risks , benefits, and alternatives, and after careful consideration of all of these options, the patient and family appeared to understand and agreed with plans. STATEMENT OF INFORMED CONSENT: The patient and family appeared to understand the risk of the operation to include, but not be limited to risk of postoperative pain, scar tissue, possible infection or bleeding requiring other interventions such as placement of drainage catheters under x-ray guidance or even operative interventions, possible need for bowel resection and ostomy placement, and further need for surgical takedown of the ostomy, possible injury to surrounding structures including bowel, bladder, bile duct, or blood vessels, or other solid organs such as liver, pancreas, kidneys, or other organs causing significant increase in morbidity and chance of mortality, and possibly requiring other interventions. We also discussed specifically about Crohn disease and how this disease process puts him at increased risk for fistula formation as well as further issues with bowel erosion, perforation, and enterocutaneous fistulas. We also discussed the potential of more serious problems, such significant pulmonary embolism causing major pulmonary dysfunction, myocardial arrhythmias, and infarctions, and even . We also discussed potential of blood transfusions, although I thought that this chance was very low. The patient and family appeared to understand all the above and agreed with the plans. OPERATIVE DETAILS: After obtaining informed consent, the patient was brought into the operating room and was placed in a normal supine position where successful general endotracheal tube anesthesia was performed. Intravenous access was assured by anesthesia and intravenous fluids and intravenous antimicrobials were continued. Note that the patient remained somewhat hypotensive with heart rate in the 130s in the early phases of the operation. We prepped and draped the patient's abdominal skin from the nipple line down to the level of the groins in the usual sterile fashion after placing him in a supine stirrups position. We then called a surgical time-out where patient's identification, date of , nature of the operation, presence of needed antimicrobials, presence of needed equipment, and any other concerns were reviewed and agreed upon by all members of the operating room team. I then placed a 5 mm skin incision in the right lower quadrant and introduced an [employer] trocar into the peritoneal space, visualizing all the layers of the abdominal wall as we entered. There was no indication of any injury to underlying structures once we entered the peritoneum. We noticed pus in the abdominal cavity. We insufflated the abdominal cavity to a maximum pressure of 15 mmHg and again inspected the insertion site and ensured that there was no injury to underlying structures prior to visualization of the rest of the abdominal cavity. There was significant amount of purulent adhesions on the surface of the bowel that was otherwise healthy and pink, but somewhat inflamed. I placed eventually 3 other 5 mm trocars, 1 in the right upper quadrant, 1 in the upper midline, and 1 in the lower midline and attempted to do a laparoscopic exploration. We focused our attention initially on the duodenal sweep, and the first and second portion of duodenum under the right lobe of the liver. I could not see any evidence of any perforated duodenal ulcer. We then carefully started exploring laparoscopically down towards the pelvis and it became obvious very quickly that we did not have adequate visualization with laparoscopy given the amount of inflammation that was present in the abdominal cavity. In order to assist with the visualization, I then placed a 9 cm skin incision in the lower midline and introduced a Gelport device and attempted to do a laparoscopic hand-assisted exploration. This assisted us with localizing the problem to the sigmoid. There were indeed 2 or 3 holes reminiscent of inflammatory bowel disease on the sigmoid colon where stool was coming out into the abdominal cavity. The amount of adhesions in that region were too dense for a laparoscopic hand-assisted approach and I even tried a hybrid approach, but eventually opened the lower midline to slightly above the umbilicus from the suprapubic area and placed the Florentino retractor in order to give us adequate visualization and access to the abdominal cavity. With this exposure, we were able to do adhesiolysis and dissection of the sigmoid colon from the bladder its surrounding pelvic wall and I was able to see the healthy appearing rectum more distal to the sigmoid colon. The area of inflammation appeared to be approximately 10 cm in length and the rest of the colon appeared to be reasonably healthy. I made a decision to do a Deena procedure and I intentionally did not do a colocolonic anastomosis and divert the patient given the amount of inflammation that was present. My thought process was that the patient probably did not have adequate treatment of his Crohn disease that he could benefit significantly with decreased risk of complications if we could do a Deena type procedure and end colostomy and then get the patient to recover from this operation with the plans of having intense treatment for his Crohn disease and then verification of response to the treatment and then electively to bring the patient back with a bowel prep, most likely through the expertise of one of our colorectal colleagues, in order to reverse the Deena procedure and put him back together. With this decision making, I went ahead and got circumferential control over and around the proximal rectum using a combination of blunt dissection, as well as very judicious use of cautery, and then transected the colon using a Contour curvilinear stapler using a blue load. The stapler fired without any difficulty and the staple rows were steno typist. We then repeated the same process proximally on the descending colon with another use of the blue load of the same stapler, and then used the LigaSure device to remove the perforated sigmoid as specimen. I marked the specimen with a suture proximally. Interestingly, the distal end of the bowel did have an area of methylene blue injection. The discussion that I had with the patient did include a colonoscopy that the patient had had over at [facility], but my impression was that this was more than 2 years ago. The methylene blue was present there and indicated more recent instrumentation of this area. We sent this specimen to pathology for permanent sections. We then returned to the abdominal cavity and performed more lysis of adhesions and dissection of the descending colon in order to free up a length of the descending colon that would easily reach the anterior abdominal wall for us to be able to do a tension -free end colostomy. I then did abdominal lavage using approximately 6 liters of normal saline, washing out all quadrants to clear drainage. We then used a Bard liver needle biopsy to do 3 cores from segment 5 of the liver and then sending these to pathology as a second specimen. We obtained adequate hemostasis on the surface of the liver using cautery. I then created a circular defect in the anterior abdominal wall to the left of the umbilicus and caudal to it, below the beltline, brought to the anterior rectus sheath, taking a cylinder of skin and subcutaneous tissue using scissors and then cautery to get the subcutaneous fat off. We then created a defect along the fibers of the anterior rectus sheath, and then did a muscle-splitting entry in through the posterior tissues and created a defect large enough to put 2-1/2 fingers through the defect. We then were able to deliver the distal end of the descending colon out through this area and this stayed without any tension onto the anterior abdominal wall region. Prior to closure of the fascia, we placed a 19-Chinese Luis Armando drain through the right lower quadrant 5 mm trocar site and secured this in place with a 2-0 nylon suture on the skin and laid the tip of the drain into the pelvis after cutting the drain to size. We then ensured adequate hemostasis prior to closing the fascia using running #1 PDS suture, followed by washing the wounds with copious amounts of normal saline. We then washed the wounds with copious amounts of normal saline prior to reapproximating the skin using a skin stapler that were placed widely apart. We then covered this area with a laparotomy pad and towel prior to maturing the end colostomy in the usual Neyda fashion, attaching the edges of the bowel onto the edges of the skin with a few of them anchoring the suture onto the body of the colon more proximally in order to have a nice everting colostomy and open where I was able to place my little finger and checked the patency of the colostomy. The colostomy appeared to be viable and pink. I then fashioned a colostomy bag over this area. Light dressing was then applied. At the end of the operation, both the sponge count and needle count were reported correct x2. The patient reportedly tolerated the procedure very well without any major cardiac or pulmonary issues. He was hypotensive to the 80s throughout the case , but he was responding to fluids and his tachycardia and decreased to the 110s to the 120s. Note that this was also part of that decision making for doing a Deena procedure without putting the patient back together and then diverting him. ESTIMATED BLOOD LOSS: 200 mL. SPECIMENS: 1. Sigmoid colon. 2. Core needle liver biopsy, segment 5, x3 cores. COMPLICATIONS: None. DISPOSITION: The patient is to the recovery area and then transfer to the ICU. Dictated By: TI RICHMOND/YAN Conf#: [id number] DID#: [id number] CC: CATIE ELENA MD;*EndCC* MTDD
[2017-02-02] MEDS: METOCLOPRAMIDE 10 MG INJ IV SCH ×4 (04:55→20:55)
[2017-02-02] MEDS: PIPER-TAZO 3.375 GM IV (PMX) 100 ML IVPB SCH ×4 (04:55→20:56)
[2017-02-02] MEDS: NS + KCL 20 MEQ 1,000 ML IV SCH (05:55)
[2017-02-02] MEDS: PANTOPRAZOLE 40 MG INJ IV SCH (05:55)
[2017-02-02 06:06] LABS: ADD SCAN DIFF NO
[2017-02-02 06:26] LABS: ABNORMAL IP MESSAGE 1; BASOPHIL # 0.1 10^3/ul (0.0-0.1); BASOPHILS % 1.4 % (0.0-2.0); HEMOGLOBIN 10.3 g/dl (14.0-18.0); INR 1.33; LYMPHOCYTES # 0.3 10^3/ul (0.8-2.9); LYMPHOCYTES % 3.9 % (15.0-51.0); MEAN CORPUSCULAR HEMOGLOBIN 28.5 pg (29.0-33.0); MEAN CORPUSCULAR HGB CONC 32.2 g/dl (32.0-37.0); MEAN CORPUSCULAR VOLUME 88.6 fl (82.0-101.0); MONOCYTE # 0.2 10^3/ul (0.3-0.9); MONOCYTES % 3.5 % (0.0-11.0); NEUTROPHIL # 5.7 10^3/ul (1.6-7.5); NEUTROPHILS % 85.8 % (39.0-77.0); PLATELET COUNT 91 10^3/UL (140-415); PROTIME 16.6 Sec (12.2-14.2); PT RATIO 1.3; RED BLOOD COUNT 3.61 10^6/ul (4.70-6.10); RED CELL DISTRIBUTION WIDTH 15.8 % (11.5-14.5); WHITE BLOOD COUNT 6.6 10^3/ul (4.8-10.8)
[2017-02-02 06:27] LABS: PARTIAL THROMBOPLASTIN TIME 36.5 Sec (25.0-35.0)
[2017-02-02 06:28] LABS: INR 1.36; PROTIME 16.8 Sec (12.2-14.2); PT RATIO 1.3; THROMBIN TIME 14.7 SEC (13.8-19.1)
[2017-02-02 06:29] LABS: PARTIAL THROMBOPLASTIN TIME 37.2 Sec (25.0-35.0)
[2017-02-02 06:38] LABS: PHOSPHORUS 3.1 mg/dl (2.5-4.9)
[2017-02-02 06:47] LABS: ALBUMIN 1.6 g/dl (3.3-4.9)
[2017-02-02 06:48] LABS: POTASSIUM 3.1 mmol/L (3.5-5.1)
[2017-02-02 06:50] LABS: BILIRUBIN,INDIRECT 0.2 mg/dl (0-1.1); BILIRUBIN,TOTAL 0.2 mg/dl (0.2-1.3); CREATININE 0.97 mg/dl (0.61-1.24)
[2017-02-02 06:51] LABS: ALBUMIN/GLOBULIN RATIO 0.72; TOTAL PROTEIN 3.8 g/dl (6.1-8.1)
[2017-02-02 06:58] LABS: CALCIUM 5.6 mg/dl (8.4-10.2)
[2017-02-02] MEDS ORDERED: POTASSIUM CHLORIDE 40 MEQ in SOD CHLORIDE 0.9% 1,000 ML IV SCH (07:30)
[2017-02-02 08:23] LABS: AADO2 Arterial 164.3 mmHg (7.0-24.0); Allen Test ACCEPTAB; Arterial Base Excess -10.3 mmol/L (-3.0-3); Arterial COHb 0.1 % (0.0-3.0); Arterial Fraction of Oxyhgb 96.3 % (93.0-99.0); Arterial HCO3 12.9 mmol/L (22.0-26.0); Arterial MetHb 0.3 % (0.0-1.5); Arterial Total Hemglobin 11.3 g/dl (12.0-18.0); Blood Gas Low PEEP Setting 0 cmH2O; MODE VENT - AC
[2017-02-02] MEDS ORDERED: NA BICARBONATE 8.4% 50 ML SYG IV STA (08:41)
[2017-02-02] MEDS ORDERED: ENOXAPARIN 40 MG/0.4 ML SYG SC SCH (09:00)
--- NOTE | 2017-02-02 09:00 | PN ---
Date/Time of Note Date/Time of Note DATE: 02/02/17 TIME: 08:51 Assessment/Plan VTE Prophylaxis VTE Prophylaxis Intervention: SCD's VTE Contraindication Reason: thrombocytopenia Lines/Catheters IV Catheter Type (from Nrs): Peripheral IV Urinary Cath still in place: Yes Reason Cath still needed: other (indicate) (intuabted) Assessment/Plan Assessment/Plan 46 yo M with 1. Perforated sigmoid colon 2/2 Severe Crohn's colitis S/p Urgent Open Cronin's procedure with end colostomy, liver biopsy and abdominal lavage 02/01/17 2. Abdominal pain, secondary to above. 3. History of Crohn's disease, diagnosed 4 years ago. 4. Diarrhea, likely secondary to Crohn's flare up. 5. Severe hypokalemia: improved 6. Hypocalcemia / Hypokalemia 7. SIRS with lactic acidosis 2/2 severe colitis: improved 8. Post Operative resp failure still vent dependent PLAN: * Today is post op day 1 * Continue vent weaning and possible extubation today * Continue current ICU post op care and Mgt * GI consult to aid with mgt of crohn's colitis * Replace electrolytes / monitor labs * PRN pain control/ antiemetics/ antipyretics/ supportive care PROPHYLAXIS: SCDS / PPI CC time >35mins Subjective 24 Hr Interval Summary Free Text/Dictation Patient seen alert but remains intubated and now on CPAP trials. Exam/Review of Systems Vital Signs Vitals Vital Signs Date Time Temp Pulse Resp B/P Pulse Ox O2 Delivery O2 Flow Rate FiO2 02/02/17 08:00 98.2 132 26 94/66 97 Mechanical Ventilator 02/02/17 04:59 40 02/01/17 16:30 3.0 Intake and Output 02/01/17 02/01/17 02/02/17 15:00 23:00 07:00 Intake Total 3060 ml 4845.0 ml 1060 ml Output Total 550 ml 550 ml 850 ml Balance 2510 ml 4295.0 ml 210 ml Exam Constitutional: alert, other (comfortable on the ventilator), No distress Head: normocephalic Eyes: PERRL, No icteric ENMT: intubated Respiratory: clear to auscultation, diminished breath sounds, respirations ( tachypneic), No wheezing Cardiovascular: other (tachycardic no murmuirs) Gastrointestinal: surgical scars (covered in mildly stained dressing, colostomy noted in R side, lower abd drain also noted. No concerning katt; lultitis or rash noted) Genitourinary - Male: other (abbott) Musculoskeletal: nl extremities to inspection Extremities: No edema Neurological: lethargic Results Result Diagram: 02/02/17 0545 02/02/17 0545 Results 24 hrs Laboratory Tests Test 02/01/17 12:45 02/01/17 14:20 02/01/17 21:00 02/01/17 21:08 White Blood Count 5.9 # 7.3 # Red Blood Count 4.11 L 3.94 L Hemoglobin 11.9 L 11.2 L Hematocrit 35.3 L 35.3 L Mean Corpuscular Volume 85.9 89.6 Mean Corpuscular Hemoglobin 29.0 28.4 L Mean Corpuscular Hemoglobin Concent 33.7 31.7 L Red Cell Distribution Width 14.9 H 15.5 H Platelet Count 133 #L 110 L Mean Platelet Volume 10.9 H 11.3 H Neutrophils % 72.0 89.5 H Band Neutrophils % 3.0 Lymphocytes % 10.0 L 4.2 L Monocytes % 15.0 H 4.5 Eosinophils % 0.0 Neutrophils # 4.2 6.5 Lymphocytes # 0.6 L 0.3 L Monocytes # 0.9 0.3 Eosinophils # 0.0 Platelet Estimate PLT APPEAR ADEQUATE Sodium Level 129 L 134 L Potassium Level 3.0 L 3.3 L Chloride Level 101 103 Carbon Dioxide Level 17 L 18 L Anion Gap 14 16 Blood Urea Nitrogen 18 17 Creatinine 1.19 1.24 Glucose Level 88 59 #L Lactic Acid Level 4.7 *H 5.1 *H Calcium Level 6.1 L 6.0 L Phosphorus Level 3.9 5.5 H Magnesium Level 2.4 # 2.3 Total Bilirubin 0.2 0.1 L Direct Bilirubin 0.00 0.00 Indirect Bilirubin 0.2 0.1 Aspartate Amino Transf (AST/SGOT) 157 H 203 H Alanine Aminotransferase (ALT/SGPT) 42 50 Alkaline Phosphatase 69 51 Total Protein 4.6 L 4.2 L Albumin 1.8 L 1.7 L Globulin 2.80 2.50 Albumin/Globulin Ratio 0.64 0.68 Ionized Calcium (Measured) 0.9 L Basophils % 0.4 Nucleated Red Blood Cells % 0.3 H Basophils # 0.0 Nucleated Red Blood Cells # 0.0 Prothrombin Time 16.9 H Prothrombin Time Ratio 1.3 INR International Normalized Ratio 1.37 Activated Partial Thromboplast Time 37.9 H Blood Gas Specimen Source Blood arterial Arterial Blood Date Drawn 02/01/2017 9:29:40 PM Arterial Blood pH (Temp corrected) 7.242 *L Arterial Blood pCO2 (Temp correct) 34.5 L Arterial Blood pO2 (Temp corrected) 113.4 H Arterial Blood HCO3 14.5 L Arterial Blood Base Excess -11.8 L Arterial Blood Oxygen Saturation 97.0 Raffy Test ACCEPTAB Arterial Blood Gas Puncture Site Left Radial Arterial Blood Carboxyhemoglobin 0.3 Arterial Blood Methemoglobin 0.1 Blood Gas A-a O2 Differential 348.6 H Oxyhemoglobin Percent 96.6 Total Hemoglobin 10.6 L Blood Gas Temperature 37.0 Blood Gas Respiration Rate 12.0 Blood Gas Actual Respiration Rate 22 Blood Gas Modality VENT - AC FiO2 70.0 Blood Gas Tidal Volume 650.0 Blood Gas Low PEEP Setting 0 Blood Gas Inspiratory Pressure 26.0 Blood Gas Critical Value Read Back Marcio SARKAR MD Blood Gas Notified Whom RTR Blood Gas Notified Time 02/01/2017 9:40:00 PM Test 02/01/17 21:57 02/01/17 22:52 02/02/17 05:45 02/02/17 07:00 Bedside Glucose 58 L 123 White Blood Count 6.6 Red Blood Count 3.61 L Hemoglobin 10.3 L Hematocrit 32.0 L Mean Corpuscular Volume 88.6 Mean Corpuscular Hemoglobin 28.5 L Mean Corpuscular Hemoglobin Concent 32.2 Red Cell Distribution Width 15.8 H Platelet Count 91 L Mean Platelet Volume 12.0 H Neutrophils % 85.8 H Lymphocytes % 3.9 L Monocytes % 3.5 Eosinophils % 0.0 Basophils % 1.4 Nucleated Red Blood Cells % 0.0 Neutrophils # 5.7 Lymphocytes # 0.3 L Monocytes # 0.2 L Eosinophils # 0.0 Basophils # 0.1 Nucleated Red Blood Cells # 0.0 Prothrombin Time 16.6 H Prothrombin Time Ratio 1.3 INR International Normalized Ratio 1.33 Activated Partial Thromboplast Time 36.5 H Thrombin Time 14.7 Sodium Level 135 Potassium Level 3.1 L Chloride Level 107 Carbon Dioxide Level 16 L Anion Gap 15 Blood Urea Nitrogen 17 Creatinine 0.97 Glucose Level 100 # Lactic Acid Level 2.1 Calcium Level 5.6 *L Phosphorus Level 3.1 # Magnesium Level 2.0 Total Bilirubin 0.2 Direct Bilirubin 0.00 Indirect Bilirubin 0.2 Aspartate Amino Transf (AST/SGOT) 165 H Alanine Aminotransferase (ALT/SGPT) 47 Alkaline Phosphatase 38 L B-Type Natriuretic Peptide 4170 H Total Protein 3.8 L Albumin 1.6 L Globulin 2.20 Albumin/Globulin Ratio 0.72 Blood Gas Specimen Source Blood arterial Arterial Blood Date Drawn 02/02/2017 7:45:45 AM Arterial Blood pH (Temp corrected) 7.383 Arterial Blood pCO2 (Temp correct) 22.2 L Arterial Blood pO2 (Temp corrected) 95.4 Arterial Blood HCO3 12.9 L Arterial Blood Base Excess -10.3 L Arterial Blood Oxygen Saturation 96.7 Raffy Test ACCEPTAB Arterial Blood Gas Puncture Site Right Radial Arterial Blood Carboxyhemoglobin 0.1 Arterial Blood Methemoglobin 0.3 Blood Gas A-a O2 Differential 164.3 H Oxyhemoglobin Percent 96.3 Total Hemoglobin 11.3 L Blood Gas Temperature 37.0 Blood Gas Respiration Rate 12.0 Blood Gas Actual Respiration Rate 32 Blood Gas Modality VENT - AC FiO2 40.0 Blood Gas Tidal Volume 650.0 Blood Gas Low PEEP Setting 0 Blood Gas Notified Whom JLD Blood Gas Notified Time 02/02/2017 8:22:48 AM Medications Medications Current Medications Ondansetron HCl (Zofran Inj) 4 mg Q6H PRN IV NAUSEA AND/OR VOMITING; Start at 03:30 Metoclopramide HCl (Reglan) 10 mg Q6H IV Last administered on 02/02/17 04:55; Admin Dose 10 MG; Start 02/01/17 at 03:30 Hydromorphone HCl (Dilaudid) 1 mg Q4H PRN IV pain Last administered on 21:44; Admin Dose 1 MG; Start 02/01/17 at 03:30 Pantoprazole 40 mg 40 mg DAILY@06 IV Last administered on 02/02/17 05:55; Admin Dose 40 MG; Start 02/01/17 at 06:00 Piperacillin Sod/ Tazobactam Sod (Zosyn 3.375gm/ 100 ml (Pmx)) 100 ml @ 200 mls /hr Q6H IVPB Last administered on 02/02/17 04:55; Admin Dose 200 MLS/HR; Start 02/01/17 at 03:30 Acetaminophen/ Hydrocodone Bitart ([place] (5/325)) 1 tab Q4H PRN PO PAIN LEVEL 4 -7; Start 02/01/17 at 20:30 Acetaminophen/ Hydrocodone Bitart ([place] (5/325)) 2 tab Q4H PRN PO PAIN LEVEL 7 -10; Start 02/01/17 at 20:30 Hydromorphone HCl (Dilaudid) 0.5 mg Q2 PRN IV PAIN; Start 02/01/17 at 20:30 Hydromorphone HCl (Dilaudid) 1 mg Q2 PRN IV PAIN; Start 02/01/17 at 20:30 Docusate Sodium (Colace) 100 mg BID PRN PO CONSTIPATION; Start 02/01/17 at 20: 30 Bisacodyl (Dulcolax Supp) 10 mg BID PRN [place] CONSTIPATION; Start 02/01/17 at 20: 30 Sodium Biphosphate/ Sodium Phosphate (Fleet Enema) 133 ml BID PRN [place] CONSTIPATION; Start 02/01/17 at 20:30 Enoxaparin Sodium 40 mg 40 mg DAILY SC Last administered on 02/02/17 08:38; Admin Dose 40 MG; Start 02/02/17 at 09:00 Propofol 100 ml @ 2.202 mls/ hr Q12H IV Last administered on 02/01/17 23:19; Admin Dose 4.404 MLS/HR; Start 02/01/17 at 23:30 Potassium Chloride 40 meq/ Sodium Chloride 1,020 ml @ 125 mls/hr Q8H10M IV ; Start 02/02/17 at 07:30 Potassium Chloride/Sodium Bicarbonate/ Dextrose/Sodium Chloride (KCl/Na Bicarb/ D5-1/2ns) 1,120 ml @ 125 mls/hr Q8H58M IV ; Start 02/02/17 at 10:00 Procedures Procedures PROCEDURE: XR Chest. CLINICAL INDICATION: Shortness of breath. TECHNIQUE: Single frontal view. COMPARISON: 02/01/2017. FINDINGS: The endotracheal tube and nasogastric tube remain in satisfactory position. Atelectasis at the lung bases is unchanged. The lungs are otherwise clear. The heart size is normal. There is no pleural effusion. There is no pneumothorax. IMPRESSION: 1. No change from 02/01/2017. RPTAT: QQ .Rogelio Vera MD, Date Time Electronically viewed and signed by .Rogelio Vera MD, on 02/02/2017 11:05 .R/ CC: RAMON DOUGLAS MD, [facility] VINCE PADGETT Feb 02, 2017 09:00
--- NOTE | 2017-02-02 09:16 | PN ---
Date/Time of Note Date/Time of Note DATE: 02/02/17 TIME: 09:11 Assessment/Plan Lines/Catheters IV Catheter Type (from Nrs): Peripheral IV Zeng in Place (from Nrs): Yes Assessment/Plan Assessment/Plan [facility] Progress Note Date of Service: 02/02/17 Today's Impression & Plan: Overall stable and improving. No obvious major post operative complication. No major wound problems. With above assessment, I've recommended the following for today: 1. Wean to extubate 2. D/c NG 3. Clear liquid diet and advance to regular 4. GI consultation for Crohn's management 5. Dilaudid [employer] once extubated and unrestrained 6. Toradol x4 doses 7. Lasix x4 doses 8. May decrease IV fluid rate to 100 cc/hr 9. Labs in am 10. Increase activity 11. Increase ICS 12. Keep in ICU 13. Possible transfer to regular floor tomorrow (not today) Thank you again for your great care of this very pleasant patient and wonderful family. If there are any questions, please feel free to call me at [phone]. TOTAL VISIT TIME: 20 minutes of which more than half was spent in [id number] discussion with the patient, possibly including family, as well as coordination of care between multiple physicians and providers. Disclaimer: Inadvertent spelling or grammatical errors are likely due to EHR/ dictation software use and do not reflect on the overall quality of patient care. Updated Clinical Summary: a very pleasant 46-year-old gentleman with history of Crohn's disease as well as prior surgery for anal fistula approximately 5 years ago, and a torn meniscus repair on the left knee, presenting with abdominal pain associated with a few weeks' duration of diarrhea. S/p an otherwise uncomplicated diagnostic laparoscopy was converted first to hand assist and then to open exploration when perforated sigmoid colon was found and it was resected with a Deena type procedure and end colostomy as well as core needle liver biopsy, segment 5, due to presence of fatty liver disease, lysis of adhesions, and abdominal lavage on 02/01/17. COMORBIDITIES: 1. Crohn disease with perforation of sigmoid colon and sepsis. S/p an otherwise uncomplicated diagnostic laparoscopy was converted first to hand assist and then to open exploration when perforated sigmoid colon was found and it was resected with a Deena type procedure and end colostomy as well as core needle liver biopsy, segment 5, due to presence of fatty liver disease, lysis of adhesions, and abdominal lavage on 02/01/17. 2. Repair of a fistula approximately 5 years ago. 3. Torn meniscus on the left knee status post repair. Subjective: No major events or complaints overnight; remains intubated; no abd pain and under control with medications; no n/v/d; no sob or cp; - flatus; - BM; + activity Objective: Vitals: See below Exam: GENERAL: On exam, the patient was laying in bed and appeared to be comfortable and in no acute distress. ABDOMEN: Soft, nontender and nondistended. Incision dressings are clean, dry and intact without any evidence of underlying obvious erythema, edema, discharge , or hernia. Surgery drain ss. Ostomy pink and viable; no sig air or stool. There are no peritoneal signs or guarding. SKIN: Skin appears to be pink and feels warm to touch. NEUROLOGIC: Patient is awake, alert, and follows commands appropriately. Exam/Review of Systems Vital Signs Vitals Vital Signs Date Time Temp Pulse Resp B/P Pulse Ox O2 Delivery O2 Flow Rate FiO2 02/02/17 08:00 98.2 132 26 94/66 97 Mechanical Ventilator 02/02/17 04:59 40 02/01/17 16:30 3.0 Intake and Output 02/01/17 02/01/17 02/02/17 15:00 23:00 07:00 Intake Total 3060 ml 4845.0 ml 1060 ml Output Total 550 ml 550 ml 850 ml Balance 2510 ml 4295.0 ml 210 ml Results Result Diagram: 02/02/17 0545 02/02/17 0545 TI HILTON M.D. Feb 02, 2017 09:16
[2017-02-02] MEDS ORDERED: KETOROLAC 30 MG INJ IV PRN (09:30)
[2017-02-02] MEDS ORDERED: CALCIUM GLUCONATE 10% 2 GM in SOD CHLORIDE 0.9% 100 ML IVPB ONE (10:00)
--- NOTE | 2017-02-02 10:40 | CONS ---
Date/Time of Note Date/Time of Note DATE: 02/02/17 TIME: 10:37 Consult Date/Type/Reason Admit Date/Time Feb 01, 2017 at 03:10 Initial Consult Date Type of Consultation: pulmonary ICU Subjective Patient underwent exploratory laparotomy yesterday Found to have Crohn disease with perforation of sigmoid colon and sepsis. Laparoscopic exploration converted to open sigmoid colectomy with Deena type procedure and end colostomy in addition to core needle liver biopsy, segment 5 x3 and lysis of additions with abdominal lavage. Patient remained intubated on mechanical ventilation overnight this morning is awake alert and oriented Objective Vital Signs Date Time Temp Pulse Resp B/P Pulse Ox O2 Delivery O2 Flow Rate FiO2 02/02/17 08:00 132 02/02/17 08:00 98.2 26 94/66 97 Mechanical Ventilator 02/02/17 04:59 40 02/01/17 16:30 3.0 Intake and Output 02/01/17 02/01/17 02/02/17 14:59 22:59 06:59 Intake Total 2935 ml 4970.0 ml 1060 ml Output Total 550 ml 500 ml 840 ml Balance 2385 ml 4470.0 ml 220 ml Exam PHYSICAL EXAMINATION GENERAL: Young gentleman on mechanical ventilation appears comfortable at rest VITAL SIGNS: see below. HEENT: Pupils equal, round, and reactive to light. CARDIAC: S1, S2, tachycardia. CHEST: Diminished air entry bilaterally. ABDOMEN: Mildly distended. No bowel sounds. EXTREMITIES: No cyanosis, clubbing or edema. NEUROLOGIC: No focal deficits. Results/Medications Result Diagram: 02/02/17 0545 02/02/17 0545 Results 24 hrs Laboratory Tests Test 02/01/17 12:45 02/01/17 14:20 02/01/17 21:00 02/01/17 21:08 White Blood Count 5.9 # 7.3 # Red Blood Count 4.11 L 3.94 L Hemoglobin 11.9 L 11.2 L Hematocrit 35.3 L 35.3 L Mean Corpuscular Volume 85.9 89.6 Mean Corpuscular Hemoglobin 29.0 28.4 L Mean Corpuscular Hemoglobin Concent 33.7 31.7 L Red Cell Distribution Width 14.9 H 15.5 H Platelet Count 133 #L 110 L Mean Platelet Volume 10.9 H 11.3 H Neutrophils % 72.0 89.5 H Band Neutrophils % 3.0 Lymphocytes % 10.0 L 4.2 L Monocytes % 15.0 H 4.5 Eosinophils % 0.0 Neutrophils # 4.2 6.5 Lymphocytes # 0.6 L 0.3 L Monocytes # 0.9 0.3 Eosinophils # 0.0 Platelet Estimate PLT APPEAR ADEQUATE Sodium Level 129 L 134 L Potassium Level 3.0 L 3.3 L Chloride Level 101 103 Carbon Dioxide Level 17 L 18 L Anion Gap 14 16 Blood Urea Nitrogen 18 17 Creatinine 1.19 1.24 Glucose Level 88 59 #L Lactic Acid Level 4.7 *H 5.1 *H Calcium Level 6.1 L 6.0 L Phosphorus Level 3.9 5.5 H Magnesium Level 2.4 # 2.3 Total Bilirubin 0.2 0.1 L Direct Bilirubin 0.00 0.00 Indirect Bilirubin 0.2 0.1 Aspartate Amino Transf (AST/SGOT) 157 H 203 H Alanine Aminotransferase (ALT/SGPT) 42 50 Alkaline Phosphatase 69 51 Total Protein 4.6 L 4.2 L Albumin 1.8 L 1.7 L Globulin 2.80 2.50 Albumin/Globulin Ratio 0.64 0.68 Ionized Calcium (Measured) 0.9 L Basophils % 0.4 Nucleated Red Blood Cells % 0.3 H Basophils # 0.0 Nucleated Red Blood Cells # 0.0 Prothrombin Time 16.9 H Prothrombin Time Ratio 1.3 INR International Normalized Ratio 1.37 Activated Partial Thromboplast Time 37.9 H Blood Gas Specimen Source Blood arterial Arterial Blood Date Drawn 02/01/2017 9:29:40 PM Arterial Blood pH (Temp corrected) 7.242 *L Arterial Blood pCO2 (Temp correct) 34.5 L Arterial Blood pO2 (Temp corrected) 113.4 H Arterial Blood HCO3 14.5 L Arterial Blood Base Excess -11.8 L Arterial Blood Oxygen Saturation 97.0 Raffy Test ACCEPTAB Arterial Blood Gas Puncture Site Left Radial Arterial Blood Carboxyhemoglobin 0.3 Arterial Blood Methemoglobin 0.1 Blood Gas A-a O2 Differential 348.6 H Oxyhemoglobin Percent 96.6 Total Hemoglobin 10.6 L Blood Gas Temperature 37.0 Blood Gas Respiration Rate 12.0 Blood Gas Actual Respiration Rate 22 Blood Gas Modality VENT - AC FiO2 70.0 Blood Gas Tidal Volume 650.0 Blood Gas Low PEEP Setting 0 Blood Gas Inspiratory Pressure 26.0 Blood Gas Critical Value Read Back Marcio SARKAR MD Blood Gas Notified Whom RTR Blood Gas Notified Time 02/01/2017 9:40:00 PM Test 02/01/17 21:57 02/01/17 22:52 02/02/17 05:45 02/02/17 07:00 Bedside Glucose 58 L 123 White Blood Count 6.6 Red Blood Count 3.61 L Hemoglobin 10.3 L Hematocrit 32.0 L Mean Corpuscular Volume 88.6 Mean Corpuscular Hemoglobin 28.5 L Mean Corpuscular Hemoglobin Concent 32.2 Red Cell Distribution Width 15.8 H Platelet Count 91 L Mean Platelet Volume 12.0 H Neutrophils % 85.8 H Lymphocytes % 3.9 L Monocytes % 3.5 Eosinophils % 0.0 Basophils % 1.4 Nucleated Red Blood Cells % 0.0 Neutrophils # 5.7 Lymphocytes # 0.3 L Monocytes # 0.2 L Eosinophils # 0.0 Basophils # 0.1 Nucleated Red Blood Cells # 0.0 Prothrombin Time 16.6 H Prothrombin Time Ratio 1.3 INR International Normalized Ratio 1.33 Activated Partial Thromboplast Time 36.5 H Thrombin Time 14.7 Sodium Level 135 Potassium Level 3.1 L Chloride Level 107 Carbon Dioxide Level 16 L Anion Gap 15 Blood Urea Nitrogen 17 Creatinine 0.97 Glucose Level 100 # Lactic Acid Level 2.1 Calcium Level 5.6 *L Phosphorus Level 3.1 # Magnesium Level 2.0 Total Bilirubin 0.2 Direct Bilirubin 0.00 Indirect Bilirubin 0.2 Aspartate Amino Transf (AST/SGOT) 165 H Alanine Aminotransferase (ALT/SGPT) 47 Alkaline Phosphatase 38 L B-Type Natriuretic Peptide 4170 H Total Protein 3.8 L Albumin 1.6 L Globulin 2.20 Albumin/Globulin Ratio 0.72 Blood Gas Specimen Source Blood arterial Arterial Blood Date Drawn 02/02/2017 7:45:45 AM Arterial Blood pH (Temp corrected) 7.383 Arterial Blood pCO2 (Temp correct) 22.2 L Arterial Blood pO2 (Temp corrected) 95.4 Arterial Blood HCO3 12.9 L Arterial Blood Base Excess -10.3 L Arterial Blood Oxygen Saturation 96.7 Raffy Test ACCEPTAB Arterial Blood Gas Puncture Site Right Radial Arterial Blood Carboxyhemoglobin 0.1 Arterial Blood Methemoglobin 0.3 Blood Gas A-a O2 Differential 164.3 H Oxyhemoglobin Percent 96.3 Total Hemoglobin 11.3 L Blood Gas Temperature 37.0 Blood Gas Respiration Rate 12.0 Blood Gas Actual Respiration Rate 32 Blood Gas Modality VENT - AC FiO2 40.0 Blood Gas Tidal Volume 650.0 Blood Gas Low PEEP Setting 0 Blood Gas Notified Whom JLD Blood Gas Notified Time 02/02/2017 8:22:48 AM Medications Current Medications Ondansetron HCl (Zofran Inj) 4 mg Q6H PRN IV NAUSEA AND/OR VOMITING; Start at 03:30 Metoclopramide HCl (Reglan) 10 mg Q6H IV Last administered on 02/02/17 09:33; Admin Dose 10 MG; Start 02/01/17 at 03:30 Hydromorphone HCl (Dilaudid) 1 mg Q4H PRN IV pain Last administered on 21:44; Admin Dose 1 MG; Start 02/01/17 at 03:30 Pantoprazole 40 mg 40 mg DAILY@06 IV Last administered on 02/02/17 05:55; Admin Dose 40 MG; Start 02/01/17 at 06:00 Piperacillin Sod/ Tazobactam Sod (Zosyn 3.375gm/ 100 ml (Pmx)) 100 ml @ 200 mls /hr Q6H IVPB Last administered on 02/02/17 09:34; Admin Dose 200 MLS/HR; Start 02/01/17 at 03:30 Acetaminophen/ Hydrocodone Bitart ([place] (5/325)) 1 tab Q4H PRN PO PAIN LEVEL 4 -7; Start 02/01/17 at 20:30 Acetaminophen/ Hydrocodone Bitart ([place] (5/325)) 2 tab Q4H PRN PO PAIN LEVEL 7 -10; Start 02/01/17 at 20:30 Hydromorphone HCl (Dilaudid) 0.5 mg Q2 PRN IV PAIN; Start 02/01/17 at 20:30 Hydromorphone HCl (Dilaudid) 1 mg Q2 PRN IV PAIN; Start 02/01/17 at 20:30 Docusate Sodium (Colace) 100 mg BID PRN PO CONSTIPATION; Start 02/01/17 at 20: 30 Bisacodyl (Dulcolax Supp) 10 mg BID PRN [place] CONSTIPATION; Start 02/01/17 at 20: 30 Sodium Biphosphate/ Sodium Phosphate (Fleet Enema) 133 ml BID PRN [place] CONSTIPATION; Start 02/01/17 at 20:30 Enoxaparin Sodium 40 mg 40 mg DAILY SC Last administered on 02/02/17t 08:38; Admin Dose 40 MG; Start 02/02/17 at 09:00 Propofol 100 ml @ 2.202 mls/ hr Q12H IV Last administered on 02/01/17t 23:19; Admin Dose 4.404 MLS/HR; Start 02/01/17 at 23:30 Potassium Chloride 40 meq/ Sodium Bicarbonate 100 meq/Dextrose/ Sodium Chloride 1,120 ml @ 125 mls/hr Q8H58M IV ; Start 02/02/17 at 10:00 Calcium Gluconate 2 gm/Sodium Chloride 120 ml @ 60 mls/hr ONCE ONCE IVPB ; Start 02/02/17 at 10:00; Stop 02/02/17 at 11:59 Potassium Chloride (KCl 40 MEQ/250 ML NS) 250 ml @ 62.5 mls/hr Q4H IVPB ; Start 02/02/17 at 10:00; Stop 02/02/17 at 17:59 Furosemide (Lasix) 20 mg Q6 IV ; Start 02/02/17 at 12:00; Stop 02/03/17 at 06:01 Ketorolac Tromethamine (Toradol) 30 mg Q6H PRN IV PAIN; Start 02/02/17 at 09:30 Assessment/Plan Chief Complaint/Hosp Course Assessment 1. Crohn's disease with perforation of sigmoid colon and sepsis status post arthroscopic sigmoid colectomy and end colostomy with lysis of adhesions 2. Metabolic acidosis likely secondary to hypoperfusion 3. Hypokalemia 4. Continues mechanical ventilation. Plan 1. Continue surgical care recommendations 2. Replace bicarbonate 3. Place potassium 4. CPAP weaning trial this morning extubation incentive spirometry 5. DVT and GI prophylaxis 6. Antibiotics per surgery Disposition Continue ICU care Problems: RAM[facility] D[facility]GLAS [facility], [facility] Feb 02, 2017 10:40
[2017-02-02] MEDS: POTASSIUM CHLORIDE 250 ML IVPB SCH ×2 (10:45→16:44)
[2017-02-02] MEDS ORDERED: SOD CHLORIDE 0.9% 1,000 ML IV ONE (11:00)
--- NOTE | 2017-02-02 11:06 | RADRPT ---
PROCEDURE: XR Chest. CLINICAL INDICATION: Shortness of breath. TECHNIQUE: Single frontal view. COMPARISON: 02/01/2017. FINDINGS: The endotracheal tube and nasogastric tube remain in satisfactory position. Atelectasis at the lung bases is unchanged. The lungs are otherwise clear. The heart size is normal. There is no pleural effusion. There is no pneumothorax. IMPRESSION: 1. No change from 02/01/2017. RPTAT: QQ .Rogelio Vera MD, MD Date Time Electronically viewed and signed by .Rogelio Vera MD, MD on 02/02/2017 11:05 .R/
[2017-02-02] MEDS: HYDROmorphONE 1 MG/ML SYG IV PRN (11:24)
[2017-02-02] MEDS: POTASSIUM CHLORIDE IV SCH ×2 (11:27→19:00)
[2017-02-02] MEDS: [UNRECOGNIZED DRUG - OTHER] IV SCH ×2 (11:27→19:00)
[2017-02-02] MEDS: SODIUM BICARBONATE IV SCH ×2 (11:27→19:00)
[2017-02-02] MEDS: PROPOFOL 100 ML IV SCH (12:58)
[2017-02-02] MEDS: FUROSEMIDE 20 MG INJ IV SCH ×2 (13:03→18:22)
--- NOTE | 2017-02-02 15:04 | CONS ---
DATE OF ADMISSION: 02/01/2017 DATE OF CONSULTATION: 02/02/2017 TYPE OF CONSULTATION: Infectious disease. REASON FOR CONSULTATION: Antibiotic management. HISTORY OF PRESENT ILLNESS: Lanre Frye is a 46-year-old male who was admitted with abdominal jose n and diarrhea. His past problems include: 1. History of Crohn's disease diagnosed 4 years ago. 2. History of anal fistula. 3. Status post knee surgery and possible surgery for anal fistula. Acutely, the patient presents to the emergency room with complaints of abdominal pain, diarrhea and vomiting. Pain started 3 weeks ago, was associated with watery diarrhea which occurred almost every 45 minutes. Over the past 2 days; however, he only had 1 episode of diarrhea on each day, but when he presented to the emergency room he was hypotensive with a blood pressure of 78/53. He was tachy cardic with heart rate of 163, respiratory rate of 20, and he was afebrile. His BUN and creatinine were 17/0.97, calcium was low at 5.6, albumin was also very low at 1.6 consistent without finding, t otal protein 3.8. Blood cultures were negative. A blood fluid culture of the abdominal fluid showe d gram-negative rods. A chest x-ray showed no evidence of acute cardiopulmonary disease, but a CT s can of the abdomen and pelvis showed wall thickening and pericolonic inflammation along the proximal and mid sigmoid colon, probably representing Crohn colitis. There is also wall thickening along the loop of jejunum in the left abdominopelvic region representing Crohn enteritis, small to moderate a mount of pneumoperitoneum consistent with perforated viscus. There are several foci of gas along the right side of the mid sigmoid colon, dilated appendix with a few foci of gas adjacent to its tip. No significant periappendiceal inflammation. HOSPITAL COURSE: The patient was seen in consultation by Dr. Ahmet Kuo. The patient had Crohn d isease, repair of anal fistula. On the the patient underwent a procedure laparoscopic to open Deena's procedure with end colostomy, liver biopsy and abdominal lavage for perforated sigmoid co kevin in the setting of Crohn's disease. HOSPITAL COURSE: The patient was seen in consultation by Dr. Britt, pulmonary as well. Found to have Crohn disease with perforated sigmoid colon and sepsis. He had an open sigmoid colectomy with Deena's type pouch procedure and end colostomy in addition to core needle biopsy. White count on the was 6.6. The patient is currently on propofol and he is on Zosyn. PAST MEDICAL HISTORY: Operations as outlined. FAMILY HISTORY: Noncontributory. SOCIAL HISTORY: He does not smoke, drink or abuse drugs. ALLERGIES: NONE TO PENICILLIN, SULFA OR FOODS. MEDICATIONS: Per chart. REVIEW OF SYSTEMS: As per HPI. PHYSICAL EXAMINATION: GENERAL: The patient is intubated on a respirator. VITAL SIGNS: Stable. He is afebrile. SKIN: Without generalized rash. HEENT: Within normal limits. He has an ET tube, NG tube. NECK: Supple. LYMPH NODES: None palpable. CHEST: Decreased breath sounds at the bases. HEART: Without murmur or gallop. ABDOMEN: Soft, tender. He has a colectomy, colostomy in place. EXTREMITIES: Without cyanosis, clubbing, or edema. RECTAL AND GENITAL: Deferred. NEUROLOGIC: No focal neurological abnormality. IMPRESSION AND PLAN: Mr. Frye is a 46-year-old male with Crohn disease status post perforated visc us, status post open sigmoid colectomy, Deena procedure with end colostomy and abdominal lavage, lysis of adhesions and 5 core needle biopsies. Will continue him on current therapy [facility] I will dictate my findings the hospitalist as well as Dr. Ahmet Kuo, Dr. Chris lawton Dictated By: MICKY REYES MD, JD/YAN Conf#: [id number] DID#: [id number]
--- NOTE | 2017-02-02 16:30 | CONS ---
Date/Time of Note Date/Time of Note DATE: 02/02/17 TIME: 16:07 Assessment/Plan Assessment/Plan Additional Assessment/Plan Assessment * Perforated sigmoid colon * Laparoscopic exploration,open sigmoid colectomy with Deena end colostomy * Crohns Disease * Respiratory failure stable on ventilator * Plan * continue present management * Will evaluate treatment for crohn's once recovering Consultation Date/Type/Reason Admit Date/Time Feb 01, 2017 at 03:10 Date of Consultation: Feb 02, 2017 Type of Consultation: GASTROENTEROLOGY Reason for Consultation CROHN DISEASE Referring Provider: VINCE PADGETT Hx of Present Illness 46 y/o male who had history of severe Crohns disease ,anal fistula who presented in the er 3 weeks history of diarrhea ,abdominal pain and vomiting. CT abdomen pelvis 02/02/2017 1. Wall thickening and pericolonic inflammation along the proximal and mid sigmoid colon, probably representing Crohn's colitis. There is also wall thickening along the loop of jejunum in the left abdominopelvic region, possibly representing Crohn's enteritis. 2. Small to moderate amount of pneumoperitoneum, consistent with a perforated viscus. There are several foci of gas along the right side of the mid sigmoid colon, suggestive of a perforation at this site. No definite abscess is identified. 3. Dilated appendix (10 mm), with a few foci of gas adjacent to its tip. There is no significant periappendiceal inflammation, however, suggesting that these are secondary findings related to the small bowel and sigmoid colon pathology. 4. Hepatomegaly and fatty infiltration of the liver. 5. Cholelithiasis. Patient subsequently underwent laparoscopic exploration,open sigmoid colectomy with Hartmanns end colostomy. Presently ,patient is in ICU,orally intubated,NGT in place.Patient is awake with stable vital signs. History is obtained from records and nurse in ICU Past Medical History Medical History: other (crohns disease) Social History Smoking Status: Former smoker Exam/Review of Systems Vital Signs Vitals Vital Signs Date Time Temp Pulse Resp B/P Pulse Ox O2 Delivery O2 Flow Rate FiO2 02/02/17 13:03 128 26 96/71 99 Mechanical Ventilator 02/02/17 12:00 98.3 02/02/17 11:40 40 02/01/17 16:30 3.0 Intake and Output 02/01/17 02/01/17 02/02/17 15:00 23:00 07:00 Intake Total 3060 ml 4845.0 ml 1189.404 ml Output Total 550 ml 550 ml 850 ml Balance 2510 ml 4295.0 ml 339.404 ml Exam Constitutional: frail Head: normocephalic ENMT: other (ngt in placed) Neck: supple Respiratory: diminished breath sounds, other (orally intubated on ventilator) Cardiovascular: nl pulses, regular rate and rhythm Gastrointestinal: distended, other (midline incision dressing dry ,colostomy), soft Extremities: normal pulses Skin: rash or lesions Results Result Diagram: 02/02/17 0545 02/02/17 0545 Results 24 hrs Laboratory Tests Test 02/01/17 21:00 02/01/17 21:08 02/01/17 21:57 02/01/17 22:52 White Blood Count 7.3 # Red Blood Count 3.94 L Hemoglobin 11.2 L Hematocrit 35.3 L Mean Corpuscular Volume 89.6 Mean Corpuscular Hemoglobin 28.4 L Mean Corpuscular Hemoglobin Concent 31.7 L Red Cell Distribution Width 15.5 H Platelet Count 110 L Mean Platelet Volume 11.3 H Neutrophils % 89.5 H Lymphocytes % 4.2 L Monocytes % 4.5 Eosinophils % 0.0 Basophils % 0.4 Nucleated Red Blood Cells % 0.3 H Neutrophils # 6.5 Lymphocytes # 0.3 L Monocytes # 0.3 Eosinophils # 0.0 Basophils # 0.0 Nucleated Red Blood Cells # 0.0 Prothrombin Time 16.9 H Prothrombin Time Ratio 1.3 INR International Normalized Ratio 1.37 Activated Partial Thromboplast Time 37.9 H Sodium Level 134 L Potassium Level 3.3 L Chloride Level 103 Carbon Dioxide Level 18 L Anion Gap 16 Blood Urea Nitrogen 17 Creatinine 1.24 Glucose Level 59 #L Lactic Acid Level 5.1 *H Calcium Level 6.0 L Phosphorus Level 5.5 H Magnesium Level 2.3 Total Bilirubin 0.1 L Direct Bilirubin 0.00 Indirect Bilirubin 0.1 Aspartate Amino Transf (AST/SGOT) 203 H Alanine Aminotransferase (ALT/SGPT) 50 Alkaline Phosphatase 51 Total Protein 4.2 L Albumin 1.7 L Globulin 2.50 Albumin/Globulin Ratio 0.68 Blood Gas Specimen Source Blood arterial Arterial Blood Date Drawn 02/01/2017 9:29:40 PM Arterial Blood pH (Temp corrected) 7.242 *L Arterial Blood pCO2 (Temp correct) 34.5 L Arterial Blood pO2 (Temp corrected) 113.4 H Arterial Blood HCO3 14.5 L Arterial Blood Base Excess -11.8 L Arterial Blood Oxygen Saturation 97.0 Raffy Test ACCEPTAB Arterial Blood Gas Puncture Site Left Radial Arterial Blood Carboxyhemoglobin 0.3 Arterial Blood Methemoglobin 0.1 Blood Gas A-a O2 Differential 348.6 H Oxyhemoglobin Percent 96.6 Total Hemoglobin 10.6 L Blood Gas Temperature 37.0 Blood Gas Respiration Rate 12.0 Blood Gas Actual Respiration Rate 22 Blood Gas Modality VENT - AC FiO2 70.0 Blood Gas Tidal Volume 650.0 Blood Gas Low PEEP Setting 0 Blood Gas Inspiratory Pressure 26.0 Blood Gas Critical Value Read Back Marcio SARKAR MD Blood Gas Notified Whom RTR Blood Gas Notified Time 02/01/2017 9:40:00 PM Bedside Glucose 58 L 123 Test 02/02/17 05:45 02/02/17 07:00 White Blood Count 6.6 Red Blood Count 3.61 L Hemoglobin 10.3 L Hematocrit 32.0 L Mean Corpuscular Volume 88.6 Mean Corpuscular Hemoglobin 28.5 L Mean Corpuscular Hemoglobin Concent 32.2 Red Cell Distribution Width 15.8 H Platelet Count 91 L Mean Platelet Volume 12.0 H Neutrophils % 85.8 H Lymphocytes % 3.9 L Monocytes % 3.5 Eosinophils % 0.0 Basophils % 1.4 Nucleated Red Blood Cells % 0.0 Neutrophils # 5.7 Lymphocytes # 0.3 L Monocytes # 0.2 L Eosinophils # 0.0 Basophils # 0.1 Nucleated Red Blood Cells # 0.0 Prothrombin Time 16.6 H Prothrombin Time Ratio 1.3 INR International Normalized Ratio 1.33 Activated Partial Thromboplast Time 36.5 H Thrombin Time 14.7 Sodium Level 135 Potassium Level 3.1 L Chloride Level 107 Carbon Dioxide Level 16 L Anion Gap 15 Blood Urea Nitrogen 17 Creatinine 0.97 Glucose Level 100 # Lactic Acid Level 2.1 Calcium Level 5.6 *L Phosphorus Level 3.1 # Magnesium Level 2.0 Total Bilirubin 0.2 Direct Bilirubin 0.00 Indirect Bilirubin 0.2 Aspartate Amino Transf (AST/SGOT) 165 H Alanine Aminotransferase (ALT/SGPT) 47 Alkaline Phosphatase 38 L B-Type Natriuretic Peptide 4170 H Total Protein 3.8 L Albumin 1.6 L Globulin 2.20 Albumin/Globulin Ratio 0.72 Blood Gas Specimen Source Blood arterial Arterial Blood Date Drawn 02/02/2017 7:45:45 AM Arterial Blood pH (Temp corrected) 7.383 Arterial Blood pCO2 (Temp correct) 22.2 L Arterial Blood pO2 (Temp corrected) 95.4 Arterial Blood HCO3 12.9 L Arterial Blood Base Excess -10.3 L Arterial Blood Oxygen Saturation 96.7 Raffy Test ACCEPTAB Arterial Blood Gas Puncture Site Right Radial Arterial Blood Carboxyhemoglobin 0.1 Arterial Blood Methemoglobin 0.3 Blood Gas A-a O2 Differential 164.3 H Oxyhemoglobin Percent 96.3 Total Hemoglobin 11.3 L Blood Gas Temperature 37.0 Blood Gas Respiration Rate 12.0 Blood Gas Actual Respiration Rate 32 Blood Gas Modality VENT - AC FiO2 40.0 Blood Gas Tidal Volume 650.0 Blood Gas Low PEEP Setting 0 Blood Gas Notified Whom JLD Blood Gas Notified Time 02/02/2017 8:22:48 AM Medications Medications Current Medications Ondansetron HCl (Zofran Inj) 4 mg Q6H PRN IV NAUSEA AND/OR VOMITING; Start at 03:30 Metoclopramide HCl (Reglan) 10 mg Q6H IV Last administered on 02/02/17 09:33; Admin Dose 10 MG; Start 02/01/17 at 03:30 Hydromorphone HCl (Dilaudid) 1 mg Q4H PRN IV pain Last administered on 21:44; Admin Dose 1 MG; Start 02/01/17 at 03:30 Pantoprazole 40 mg 40 mg DAILY@06 IV Last administered on 02/02/17 05:55; Admin Dose 40 MG; Start 02/01/17 at 06:00 Piperacillin Sod/ Tazobactam Sod (Zosyn 3.375gm/ 100 ml (Pmx)) 100 ml @ 200 mls /hr Q6H IVPB Last administered on 02/02/17 09:34; Admin Dose 200 MLS/HR; Start 02/01/17 at 03:30 Acetaminophen/ Hydrocodone Bitart ([place] (5/325)) 1 tab Q4H PRN PO PAIN LEVEL 4 -7; Start 02/01/17 at 20:30 Acetaminophen/ Hydrocodone Bitart ([place] (5/325)) 2 tab Q4H PRN PO PAIN LEVEL 7 -10; Start 02/01/17 at 20:30 Hydromorphone HCl (Dilaudid) 0.5 mg Q2 PRN IV PAIN; Start 02/01/17 at 20:30 Hydromorphone HCl (Dilaudid) 1 mg Q2 PRN IV PAIN Last administered on 11:24; Admin Dose 1 MG; Start 02/01/17 at 20:30 Docusate Sodium (Colace) 100 mg BID PRN PO CONSTIPATION; Start 02/01/17 at 20: 30 Bisacodyl (Dulcolax Supp) 10 mg BID PRN [place] CONSTIPATION; Start 02/01/17 at 20: 30 Sodium Biphosphate/ Sodium Phosphate (Fleet Enema) 133 ml BID PRN [place] CONSTIPATION; Start 02/01/17 at 20:30 Enoxaparin Sodium 40 mg 40 mg DAILY SC Last administered on 02/02/17 08:38; Admin Dose 40 MG; Start 02/02/17 at 09:00 Propofol 100 ml @ 2.202 mls/ hr Q12H IV Last administered on 02/02/17 12:58; Admin Dose 6.606 MLS/HR; Start 02/01/17 at 23:30 Potassium Chloride 40 meq/ Sodium Bicarbonate 100 meq/Dextrose/ Sodium Chloride 1,120 ml @ 125 mls/hr Q8H58M IV Last administered on 02/02/17 11:27; Admin Dose 125 MLS/HR; Start 02/02/17 at 10:00 Potassium Chloride (KCl 40 MEQ/250 ML NS) 250 ml @ 62.5 mls/hr Q4H IVPB Last administered on 02/02/17 10:45; Admin Dose 62.5 MLS/HR; Start 02/02/17 at 10:00 ; Stop 02/02/17 at 17:59 Furosemide (Lasix) 20 mg Q6 IV Last administered on 02/02/17 13:03; Admin Dose 20 MG; Start 02/02/17 at 12:00; Stop 02/03/17 at 06:01 Ketorolac Tromethamine (Toradol) 30 mg Q6H PRN IV PAIN; Start 02/02/17 at 09:30 SANDRA DAVIS MD Feb 02, 2017 16:17
[2017-02-02 23:28] LABS: ALBUMIN 1.7 g/dl (3.3-4.9); ALBUMIN/GLOBULIN RATIO 0.7; BILIRUBIN,INDIRECT 0.1 mg/dl (0-1.1); BILIRUBIN,TOTAL 0.1 mg/dl (0.2-1.3); CREATININE 1.27 mg/dl (0.61-1.24); PHOSPHORUS 1.6 mg/dl (2.5-4.9); POTASSIUM 3.8 mmol/L (3.5-5.1); TOTAL PROTEIN 4.1 g/dl (6.1-8.1)
[2017-02-02 23:30] LABS: CALCIUM 5.8 mg/dl (8.4-10.2)
[2017-02-03] VITALS (37 sets, daily range): BP systolic 92–127; BP diastolic 65–91; PULSE 107–127; RESP 10–35
[2017-02-03] MEDS ORDERED: CALCIUM GLUCONATE 10% 2 GM in SOD CHLORIDE 0.9% 100 ML IVPB ONE ×2
[2017-02-03] MEDS: PROPOFOL 100 ML IV SCH ×3 (00:27→21:22)
[2017-02-03] MEDS: FUROSEMIDE 20 MG INJ IV SCH ×2 (00:34→05:32)
[2017-02-03] MEDS: PIPER-TAZO 3.375 GM IV (PMX) 100 ML IVPB SCH ×2 (03:14→09:11)
[2017-02-03] MEDS: METOCLOPRAMIDE 10 MG INJ IV SCH ×4 (03:14→21:37)
[2017-02-03] MEDS: [UNRECOGNIZED DRUG - OTHER] IV SCH ×2 (04:08→09:11)
[2017-02-03] MEDS: SODIUM BICARBONATE IV SCH ×2 (04:08→09:11)
[2017-02-03] MEDS: POTASSIUM CHLORIDE IV SCH ×2 (04:08→09:11)
[2017-02-03] MEDS: HYDROmorphONE 1 MG/ML SYG IV PRN ×2 (04:38→11:57)
[2017-02-03] MEDS: PANTOPRAZOLE 40 MG INJ IV SCH (05:32)
[2017-02-03 06:30] LABS: ADD SCAN DIFF NO
[2017-02-03 06:41] LABS: ABNORMAL IP MESSAGE 1; HEMOGLOBIN 8.6 g/dl (14.0-18.0); MEAN CORPUSCULAR HEMOGLOBIN 28.9 pg (29.0-33.0); MEAN CORPUSCULAR HGB CONC 33.1 g/dl (32.0-37.0); MEAN CORPUSCULAR VOLUME 87.2 fl (82.0-101.0); MEAN PLATELET VOLUME 12.9 fl (7.4-10.4); PLATELET COUNT 49 10^3/UL (140-415); RED BLOOD COUNT 2.98 10^6/ul (4.70-6.10); RED CELL DISTRIBUTION WIDTH 16.2 % (11.5-14.5); WHITE BLOOD COUNT 5.7 10^3/ul (4.8-10.8)
[2017-02-03 06:48] LABS: ALBUMIN 1.7 g/dl (3.3-4.9); POTASSIUM 3.2 mmol/L (3.5-5.1)
[2017-02-03 06:50] LABS: PHOSPHORUS 1.1 mg/dl (2.5-4.9)
[2017-02-03 06:51] LABS: ALBUMIN/GLOBULIN RATIO 0.73; BILIRUBIN,INDIRECT 0.2 mg/dl (0-1.1); BILIRUBIN,TOTAL 0.2 mg/dl (0.2-1.3); CALCIUM 6.5 mg/dl (8.4-10.2); CREATININE 1.33 mg/dl (0.61-1.24)
[2017-02-03 06:52] LABS: MAGNESIUM 1.8 mg/dl (1.7-2.5); PARTIAL THROMBOPLASTIN TIME 32.7 Sec (25.0-35.0); PROTIME 13.2 Sec (12.2-14.2)
--- NOTE | 2017-02-03 08:53 | RADRPT ---
PROCEDURE: XR Chest. CLINICAL INDICATION: Pneumonia, CHF TECHNIQUE: AP view of the chest was obtained. COMPARISON: 1970 FINDINGS: ET tube and NG tube remain in place. The cardiomediastinal silhouette is within normal limits. T here are increasing opacities in the bilateral [id number]-[id number] lungs. No large pleural effusion is see n. There is no pneumothorax. IMPRESSION: Increasing bilateral mid - lower lung opacities which may reflect atelectasis, edema or consolidatio n. RPTAT: VV .Haroldo Mchugh MD, MD Date Time Electronically viewed and signed by .Haroldo Mchugh MD, MD on 02/03/2017 08:52 .O/
--- NOTE | 2017-02-03 09:27 | CONS ---
Date/Time of Note Date/Time of Note DATE: 02/03/17 TIME: 09:24 Assessment/Plan Assessment/Plan Additional Assessment/Plan X-ray was reviewed from today which is showing endotracheal tube at an adequate level, bibasilar atelectatic changes are present. Possibly superimposed small bilateral pleural effusions. Ventilator settings; AC of 12, tidal volume 650, PEEP of 0, 30% FiO2. Assessment recommendations; 1. Patient admitted with acute abdomen status post sigmoid resection with colostomy. 2. Respiratory failure, with bibasilar atelectasis. 3. Anemia. 4. Acute renal injury. 5. Thrombocytopenia. Discontinue Zosyn and switch the patient to cefepime because of thrombocytopenia. Stop sedation. Once the patient is off sedative effect he will be evaluated for possible weaning from ventilator. Consultation Date/Type/Reason Admit Date/Time Feb 01, 2017 at 03:10 Initial Consult Date 02/02/17 Type of Consultation: Pulmonary/critical care Referring Provider: VINCE PADGETT 24 HR Interval Summary Free Text/Dictation Patient remains critical. Still requiring full ventilator support. Has remained hemodynamically stable. General exam; middle-aged male, orally intubated, sedated, currently in no distress. Exam/Review of Systems Vital Signs Vitals Vital Signs Date Time Temp Pulse Resp B/P Pulse Ox O2 Delivery O2 Flow Rate FiO2 02/03/17 06:00 108 20 95/68 99 Mechanical Ventilator 02/03/17 05:10 30 02/03/17 04:00 98.3 02/01/17 16:30 3.0 Intake and Output 02/02/17 02/02/17 02/03/17 15:00 23:00 07:00 Intake Total 2267.078 ml 1187.824 ml 1225.41 ml Output Total 570 ml 1210 ml 1840 ml Balance 1697.078 ml -22.176 ml -614.59 ml Exam HEENT exam is; supple neck, pupils are midsize reactive to light. No lymphadenopathy. No thyromegaly. No neck bruits. Orally intubated. Dentition is fair. Chest examined; depressed breath on lung bases bilaterally. Upper lobes are clear to auscultation. S1-S2 audible, no murmurs. Regular rhythm. Abdomen exam; the colostomy placed. Midline dressings. Bowel sounds are absent. Abdomen is nondistended. Extremity exam is; no peripheral edema. Pulses 1+ bilaterally. 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 Results Result Diagram: 02/03/17 0600 02/03/17 0600 Results 24 hrs Laboratory Tests Test 02/02/17 23:00 02/03/17 06:00 Sodium Level 136 142 Potassium Level 3.8 3.2 L Chloride Level 110 109 Carbon Dioxide Level 18 L 22 Anion Gap 12 14 Blood Urea Nitrogen 21 H 21 H Creatinine 1.27 H 1.33 H Glucose Level 133 150 Calcium Level 5.8 *L 6.5 L Phosphorus Level 1.6 #L 1.1 L Magnesium Level 2.0 1.8 Total Bilirubin 0.1 L 0.2 Direct Bilirubin 0.00 0.00 Indirect Bilirubin 0.1 0.2 Aspartate Amino Transf (AST/SGOT) 127 H 115 H Alanine Aminotransferase (ALT/SGPT) 42 38 Alkaline Phosphatase 48 55 Total Protein 4.1 L 4.0 L Albumin 1.7 L 1.7 L Globulin 2.40 2.30 Albumin/Globulin Ratio 0.70 0.73 White Blood Count 5.7 Red Blood Count 2.98 L Hemoglobin 8.6 L Hematocrit 26.0 L Mean Corpuscular Volume 87.2 Mean Corpuscular Hemoglobin 28.9 L Mean Corpuscular Hemoglobin Concent 33.1 Red Cell Distribution Width 16.2 H Platelet Count 49 #L Mean Platelet Volume 12.9 H Neutrophils % Eosinophils % Neutrophils # Eosinophils # Prothrombin Time 13.2 # Prothrombin Time Ratio 1.0 INR International Normalized Ratio 1.00 Activated Partial Thromboplast Time 32.7 Lactic Acid Level 1.9 B-Type Natriuretic Peptide 5090 H Medications Medications Current Medications Ondansetron HCl (Zofran Inj) 4 mg Q6H PRN IV NAUSEA AND/OR VOMITING; Start at 03:30 Metoclopramide HCl (Reglan) 10 mg Q6H IV Last administered on 02/03/17 09:11; Admin Dose 10 MG; Start 02/01/17 at 03:30 Hydromorphone HCl (Dilaudid) 1 mg Q4H PRN IV pain Last administered on 21:44; Admin Dose 1 MG; Start 02/01/17 at 03:30 Pantoprazole 40 mg 40 mg DAILY@06 IV Last administered on 02/03/17 05:32; Admin Dose 40 MG; Start 02/01/17 at 06:00 Piperacillin Sod/ Tazobactam Sod (Zosyn 3.375gm/ 100 ml (Pmx)) 100 ml @ 200 mls /hr Q6H IVPB Last administered on 02/03/17 09:11; Admin Dose 200 MLS/HR; Start 02/01/17 at 03:30 Acetaminophen/ Hydrocodone Bitart ([place] (5/325)) 1 tab Q4H PRN PO PAIN LEVEL 4 -7; Start 02/01/17 at 20:30 Acetaminophen/ Hydrocodone Bitart ([place] (5/325)) 2 tab Q4H PRN PO PAIN LEVEL 7 -10; Start 02/01/17 at 20:30 Hydromorphone HCl (Dilaudid) 0.5 mg Q2 PRN IV PAIN; Start 02/01/17 at 20:30 Hydromorphone HCl (Dilaudid) 1 mg Q2 PRN IV PAIN Last administered on 04:38; Admin Dose 1 MG; Start 02/01/17 at 20:30 Docusate Sodium (Colace) 100 mg BID PRN PO CONSTIPATION; Start 02/01/17 at 20: 30 Bisacodyl (Dulcolax Supp) 10 mg BID PRN [place] CONSTIPATION; Start 02/01/17 at 20: 30 Sodium Biphosphate/ Sodium Phosphate (Fleet Enema) 133 ml BID PRN [place] CONSTIPATION; Start 02/01/17 at 20:30 Enoxaparin Sodium 40 mg 40 mg DAILY SC Last administered on 02/02/17 08:38; Admin Dose 40 MG; Start 02/02/17 at 09:00; Status Future Hold Propofol 100 ml @ 2.202 mls/ hr Q12H IV Last administered on 02/03/17 07:38; Admin Dose 11.01 MLS/HR; Start 02/01/17 at 23:30 Potassium Chloride/Sodium Bicarbonate/ Dextrose/Sodium Chloride (KCl/Na Bicarb/ D5-1/2ns) 1,120 ml @ 125 mls/hr Q8H58M IV Last administered on 02/03/17 09:11 ; Admin Dose 125 MLS/HR; Start 02/02/17 at 10:00 Ketorolac Tromethamine (Toradol) 30 mg Q6H PRN IV PAIN; Start 02/02/17 at 09:30 RICHAR ADRIAN Feb 03, 2017 09:26
[2017-02-03 09:44] LABS: LYMPHOCYTES # 0.3 10^3/ul (0.8-2.9); MONOCYTE # 0.1 10^3/ul (0.3-0.9); NEUTROPHIL # 4.2 10^3/ul (1.6-7.5)
[2017-02-03 09:45] LABS: PLATELET ESTIMATE PLT APPEAR DECREASED
--- NOTE | 2017-02-03 10:13 | PN ---
Date/Time of Note Date/Time of Note DATE: 02/03/17 TIME: 09:59 Assessment/Plan VTE Prophylaxis VTE Prophylaxis Intervention: SCD's Lines/Catheters IV Catheter Type (from Nrs): Peripheral IV Urinary Cath still in place: Yes Reason Cath still needed: terminal illness/intractable pain Assessment/Plan Assessment/Plan 1. Perforated sigmoid colon 2/2 Severe Crohn's colitis S/p Urgent Open Cronin's procedure with end colostomy, liver biopsy and abdominal lavage 02/01/17 2. Abdominal pain, secondary to above. 3. History of Crohn's disease, diagnosed 4 years ago. 4. Diarrhea, likely secondary to Crohn's flare up. 5. Electrolyte Abnormalities 6. SIRS with lactic acidosis 2/2 severe colitis: improved 7. Post Operative Resp failure , on a vent PLAN: * Today is post op day 2 * * Continue vent weaning and possible extubation. Failed CPAP trial yesterday * Continue current ICU post op care and Mgt * GI now on board to aid with mgt of C * Crohn's colitis * Replace electrolytes as needed * PRN pain control/ antiemetics/ antipyretics/ supportive care Subjective 24 Hr Interval Summary Free Text/Dictation Failed CPAP trial yesterday. no acute issues overnight. remained intubated Exam/Review of Systems Vital Signs Vitals Vital Signs Date Time Temp Pulse Resp B/P Pulse Ox O2 Delivery O2 Flow Rate FiO2 02/03/17 06:00 108 20 95/68 99 Mechanical Ventilator 02/03/17 05:10 30 02/03/17 04:00 98.3 02/01/17 16:30 3.0 Intake and Output 02/02/17 02/02/17 02/03/17 15:00 23:00 07:00 Intake Total 2267.078 ml 1187.824 ml 1225.41 ml Output Total 570 ml 1210 ml 1840 ml Balance 1697.078 ml -22.176 ml -614.59 ml Exam Constitutional: other (intubated. no distress on vent) Head: atraumatic, normocephalic Eyes: PERRL Respiratory: diminished breath sounds Cardiovascular: other (tachycardic with regular rhythm) Gastrointestinal: other (Right sided colostomy. surgial site covered. draining tube in place) Extremities: normal pulses Results Result Diagram: 02/03/17 0600 02/03/17 0600 Results 24 hrs Laboratory Tests Test 02/02/17 23:00 02/03/17 06:00 Sodium Level 136 142 Potassium Level 3.8 3.2 L Chloride Level 110 109 Carbon Dioxide Level 18 L 22 Anion Gap 12 14 Blood Urea Nitrogen 21 H 21 H Creatinine 1.27 H 1.33 H Glucose Level 133 150 Calcium Level 5.8 *L 6.5 L Phosphorus Level 1.6 #L 1.1 L Magnesium Level 2.0 1.8 Total Bilirubin 0.1 L 0.2 Direct Bilirubin 0.00 0.00 Indirect Bilirubin 0.1 0.2 Aspartate Amino Transf (AST/SGOT) 127 H 115 H Alanine Aminotransferase (ALT/SGPT) 42 38 Alkaline Phosphatase 48 55 Total Protein 4.1 L 4.0 L Albumin 1.7 L 1.7 L Globulin 2.40 2.30 Albumin/Globulin Ratio 0.70 0.73 White Blood Count 5.7 Red Blood Count 2.98 L Hemoglobin 8.6 L Hematocrit 26.0 L Mean Corpuscular Volume 87.2 Mean Corpuscular Hemoglobin 28.9 L Mean Corpuscular Hemoglobin Concent 33.1 Red Cell Distribution Width 16.2 H Platelet Count 49 #L Mean Platelet Volume 12.9 H Neutrophils % 74.0 Band Neutrophils % 16.0 H Lymphocytes % 5.0 L Monocytes % 1.0 Eosinophils % Metamyelocytes % 4.0 H Neutrophils # 4.2 Lymphocytes # 0.3 L Monocytes # 0.1 L Eosinophils # Metamyelocytes # 0.2 Platelet Estimate PLT APPEAR DECREASED Prothrombin Time 13.2 # Prothrombin Time Ratio 1.0 INR International Normalized Ratio 1.00 Activated Partial Thromboplast Time 32.7 Lactic Acid Level 1.9 B-Type Natriuretic Peptide 5090 H Medications Medications Current Medications Ondansetron HCl (Zofran Inj) 4 mg Q6H PRN IV NAUSEA AND/OR VOMITING; Start at 03:30 Metoclopramide HCl (Reglan) 10 mg Q6H IV Last administered on 02/03/17 09:11; Admin Dose 10 MG; Start 02/01/17 at 03:30 Hydromorphone HCl (Dilaudid) 1 mg Q4H PRN IV pain Last administered on 21:44; Admin Dose 1 MG; Start 02/01/17 at 03:30 Pantoprazole (Protonix Iv) 40 mg DAILY@06 IV Last administered on 02/03/17 05: 32; Admin Dose 40 MG; Start 02/01/17 at 06:00 Acetaminophen/ Hydrocodone Bitart ([place] (5/325)) 1 tab Q4H PRN PO PAIN LEVEL 4 -7; Start 02/01/17 at 20:30 Acetaminophen/ Hydrocodone Bitart ([place] (5/325)) 2 tab Q4H PRN PO PAIN LEVEL 7 -10; Start 02/01/17 at 20:30 Hydromorphone HCl (Dilaudid) 0.5 mg Q2 PRN IV PAIN; Start 02/01/17 at 20:30 Hydromorphone HCl (Dilaudid) 1 mg Q2 PRN IV PAIN Last administered on 04:38; Admin Dose 1 MG; Start 02/01/17 at 20:30 Docusate Sodium (Colace) 100 mg BID PRN PO CONSTIPATION; Start 02/01/17 at 20: 30 Bisacodyl (Dulcolax Supp) 10 mg BID PRN [place] CONSTIPATION; Start 02/01/17 at 20: 30 Sodium Biphosphate/ Sodium Phosphate (Fleet Enema) 133 ml BID PRN [place] CONSTIPATION; Start 02/01/17 at 20:30 Enoxaparin Sodium 40 mg 40 mg DAILY SC Last administered on 02/02/17 08:38; Admin Dose 40 MG; Start 02/02/17 at 09:00; Status Future Hold Propofol 100 ml @ 2.202 mls/ hr Q12H IV Last administered on 02/03/17 07:38; Admin Dose 11.01 MLS/HR; Start 02/01/17 at 23:30 Potassium Chloride/Sodium Bicarbonate/ Dextrose/Sodium Chloride (KCl/Na Bicarb/ D5-1/2ns) 1,120 ml @ 125 mls/hr Q8H58M IV Last administered on 02/03/17 09:11 ; Admin Dose 125 MLS/HR; Start 02/02/17 at 10:00 Ketorolac Tromethamine 30 mg 30 mg Q6H PRN IV PAIN; Start 02/02/17 at 09:30 Cefepime HCl 50 ml @ 100 mls/hr Q12 IVPB ; Start 02/03/17 at 21:00 Potassium Phosphate/Sodium Chloride (K Phos (Mm)/NS) 260 ml @ 65 mls/hr ONCE ONCE IVPB ; Start 02/03/17 at 11:30; Stop 02/03/17 at 15:29 CATIE ELENA MD Feb 03, 2017 10:13
[2017-02-03] MEDS ORDERED: POTASSIUM PHOSPHATE 30 MM in SOD CHLORIDE 0.9% 250 ML IVPB ONE (11:30)
--- NOTE | 2017-02-03 12:24 | PN ---
Date/Time of Note Date/Time of Note DATE: 02/03/17 TIME: 08:58 Assessment/Plan Lines/Catheters IV Catheter Type (from Nrsg): Peripheral IV Zeng in Place (from Nrsg): Yes Assessment/Plan Assessment/Plan [facility] Progress Note Date of Service: 02/03/17 Today's Impression & Plan: Overall stable and improving. Still needing ventilation. Indicative of how severely septic the patient was from this process. No obvious major post operative complication. No major wound problems. With above assessment, I've recommended the following for today: 1. Wean to extubate 2. D/c NG once extubated 3. Clear liquid diet and advance to regular after above 4. Dilaudid [employer]DITIONER once extubated and unrestrained 5. Consider further Lasix x4 doses 6. Labs in am 7. Increase activity 8. Increase ICS 9. Keep in ICU Thank you again for your great care of this very pleasant patient and wonderful family. If there are any questions, please feel free to call me at [phone]. TOTAL VISIT TIME: 20 minutes of which more than half was spent in [id number] discussion with the patient, possibly including family, as well as coordination of care between multiple physicians and providers. Disclaimer: Inadvertent spelling or grammatical errors are likely due to EHR/ dictation software use and do not reflect on the overall quality of patient care. Updated Clinical Summary: a very pleasant 46-year-old gentleman with history of Crohn's disease as well as prior surgery for anal fistula approximately 5 years ago, and a torn meniscus repair on the left knee, presenting with abdominal pain associated with a few weeks' duration of diarrhea. S/p an otherwise uncomplicated diagnostic laparoscopy was converted first to hand assist and then to open exploration when perforated sigmoid colon was found and it was resected with a Deena type procedure and end colostomy as well as core needle liver biopsy, segment 5, due to presence of fatty liver disease, lysis of adhesions, and abdominal lavage on 02/01/17. COMORBIDITIES: 1. Crohn disease with perforation of sigmoid colon and sepsis. S/p an otherwise uncomplicated diagnostic laparoscopy was converted first to hand assist and then to open exploration when perforated sigmoid colon was found and it was resected with a Deena type procedure and end colostomy as well as core needle liver biopsy, segment 5, due to presence of fatty liver disease, lysis of adhesions, and abdominal lavage on 02/01/17. 2. Repair of a fistula approximately 5 years ago. 3. Torn meniscus on the left knee status post repair. Subjective: No major events or complaints overnight; remains intubated; no abd pain and under control with medications; no n/v/d; no sob or cp; - flatus; - BM; + activity Objective: Vitals: See below Exam: GENERAL: On exam, the patient was laying in bed and appeared to be comfortable and in no acute distress. ABDOMEN: Soft, nontender and nondistended. Incision dressings d/c'd and incisions are clean, dry and intact without any evidence of obvious erythema, edema, discharge, or hernia. Surgery drain ss. Ostomy pink and viable; no sig air or stool. There are no peritoneal signs or guarding. SKIN: Skin appears to be pink and feels warm to touch. NEUROLOGIC: Patient is awake, alert, and follows commands appropriately. Exam/Review of Systems Vital Signs Vitals Vital Signs Date Time Temp Pulse Resp B/P Pulse Ox O2 Delivery O2 Flow Rate FiO2 02/03/17 11:00 126 35 123/89 100 Mechanical Ventilator 02/03/17 08:00 30 02/03/17 08:00 98.4 02/01/17 16:30 3.0 Intake and Output 02/02/17 02/02/17 02/03/17 15:00 23:00 07:00 Intake Total 2267.078 ml 1187.824 ml 1225.41 ml Output Total 570 ml 1210 ml 2040 ml Balance 1697.078 ml -22.176 ml -814.59 ml Results Result Diagram: 02/03/17 0600 02/03/17 0600 TI HILTON M.D. Feb 03, 2017 12:24
[2017-02-03 13:04] LABS: AADO2 Arterial 114.6 mmHg (7.0-24.0); Allen Test ACCEPTAB; Arterial Base Excess -0.7 mmol/L (-3.0-3); Arterial COHb 0.3 % (0.0-3.0); Arterial Fraction of Oxyhgb 91.1 % (93.0-99.0); Arterial HCO3 22.4 mmol/L (22.0-26.0); Arterial MetHb 0.1 % (0.0-1.5); Arterial Total Hemglobin 9.7 g/dl (12.0-18.0); Blood Gas Low PEEP Setting 0 cmH2O; Blood Gas PS 10; MODE VENT - CPAP
--- NOTE | 2017-02-03 15:43 | PN ---
Date/Time of Note Date/Time of Note DATE: 02/03/17 TIME: 15:37 Assessment/Plan VTE Prophylaxis VTE Prophylaxis Intervention: SCD's Lines/Catheters IV [facility] Type (from [facility]): Peripheral IV Urinary Cath still in place: Yes Reason Cath still needed: urinary retention Assessment/Plan Chief Complaint/Hosp Course 4 Problems: Assessment/Plan Perforated sigmoid colon * Laparoscopic exploration,open sigmoid colectomy with Deena end colostomy with liver biopsy segment V * Crohn's disease * Respiratory failure stable on ventilator * Plan * continue present management * Will evaluate treatment for Crohn's once recovering Subjective 24 Hr Interval Summary Free Text/Dictation * Course reviewed with RN * patient seen and examined * still orally intubated ,on ventilator * failed CPAP trial Exam/Review of Systems Vital Signs Vitals Vital Signs Date Time Temp Pulse Resp B/P Pulse Ox O2 Delivery O2 Flow Rate FiO2 02/03/17 15:00 113 15 92/66 96 Mechanical Ventilator 02/03/17 13:40 30 02/03/17 12:00 99.0 02/01/17 16:30 3.0 Intake and Output 02/02/17 02/02/17 02/03/17 15:00 23:00 07:00 Intake Total 2267.078 ml 1187.824 ml 1361.42 ml Output Total 570 ml 1210 ml 2040 ml Balance 1697.078 ml -22.176 ml -678.58 ml Exam Constitutional: frail ENMT: other (NGT in placed) Neck: supple Respiratory: diminished breath sounds, other (orally intubated on ventilator) Gastrointestinal: distended, other (dressing intact,colostomy pink in color), soft Genitourinary - Male: other (abbott catheter) Results Result Diagram: 02/03/17 0600 02/03/17 0600 Results 24 hrs Laboratory Tests Test 02/02/17 23:00 02/03/17 06:00 02/03/17 12:30 Sodium Level 136 142 Potassium Level 3.8 3.2 L Chloride Level 110 109 Carbon Dioxide Level 18 L 22 Anion Gap 12 14 Blood Urea Nitrogen 21 H 21 H Creatinine 1.27 H 1.33 H Glucose Level 133 150 Calcium Level 5.8 *L 6.5 L Phosphorus Level 1.6 #L 1.1 L Magnesium Level 2.0 1.8 Total Bilirubin 0.1 L 0.2 Direct Bilirubin 0.00 0.00 Indirect Bilirubin 0.1 0.2 Aspartate Amino Transf (AST/SGOT) 127 H 115 H Alanine Aminotransferase (ALT/SGPT) 42 38 Alkaline Phosphatase 48 55 Total Protein 4.1 L 4.0 L Albumin 1.7 L 1.7 L Globulin 2.40 2.30 Albumin/Globulin Ratio 0.70 0.73 White Blood Count 5.7 Red Blood Count 2.98 L Hemoglobin 8.6 L Hematocrit 26.0 L Mean Corpuscular Volume 87.2 Mean Corpuscular Hemoglobin 28.9 L Mean Corpuscular Hemoglobin Concent 33.1 Red Cell Distribution Width 16.2 H Platelet Count 49 #L Mean Platelet Volume 12.9 H Neutrophils % 74.0 Band Neutrophils % 16.0 H Lymphocytes % 5.0 L Monocytes % 1.0 Eosinophils % Metamyelocytes % 4.0 H Neutrophils # 4.2 Lymphocytes # 0.3 L Monocytes # 0.1 L Eosinophils # Metamyelocytes # 0.2 Platelet Estimate PLT APPEAR DECREASED Prothrombin Time 13.2 # Prothrombin Time Ratio 1.0 INR International Normalized Ratio 1.00 Activated Partial Thromboplast Time 32.7 Lactic Acid Level 1.9 B-Type Natriuretic Peptide 5090 H Blood Gas Specimen Source Blood arterial Arterial Blood Date Drawn 02/03/2017 12:30:16 PM Arterial Blood pH (Temp corrected) 7.474 H Arterial Blood pCO2 (Temp correct) 31.2 L Arterial Blood pO2 (Temp corrected) 62.6 L Arterial Blood HCO3 22.4 Arterial Blood Base Excess -0.7 Arterial Blood Oxygen Saturation 91.5 L Raffy Test ACCEPTAB Arterial Blood Gas Puncture Site Right Radial Arterial Blood Carboxyhemoglobin 0.3 Arterial Blood Methemoglobin 0.1 Blood Gas A-a O2 Differential 114.6 H Oxyhemoglobin Percent 91.1 L Total Hemoglobin 9.7 L Blood Gas Temperature 37.0 Blood Gas Actual Respiration Rate 32 Blood Gas Modality VENT - CPAP FiO2 30.0 Blood Gas Low PEEP Setting 0 Blood Gas Pressure Support 10 Blood Gas Notified Whom JLD Blood Gas Notified Time 02/03/2017 1:03:52 PM Medications Medications Current Medications Ondansetron HCl (Zofran Inj) 4 mg Q6H PRN IV NAUSEA AND/OR VOMITING; Start at 03:30 Metoclopramide HCl (Reglan) 10 mg Q6H IV Last administered on 02/03/17 09:11; Admin Dose 10 MG; Start 02/01/17 at 03:30 Hydromorphone HCl (Dilaudid) 1 mg Q4H PRN IV pain Last administered on 21:44; Admin Dose 1 MG; Start 02/01/17 at 03:30 Pantoprazole (Protonix Iv) 40 mg DAILY@06 IV Last administered on 02/03/17 05: 32; Admin Dose 40 MG; Start 02/01/17 at 06:00 Acetaminophen/ Hydrocodone Bitart ([place] (5/325)) 1 tab Q4H PRN PO PAIN LEVEL 4 -7; Start 02/01/17 at 20:30 Acetaminophen/ Hydrocodone Bitart ([place] (5/325)) 2 tab Q4H PRN PO PAIN LEVEL 7 -10; Start 02/01/17 at 20:30 Hydromorphone HCl (Dilaudid) 0.5 mg Q2 PRN IV PAIN; Start 02/01/17 at 20:30 Hydromorphone HCl (Dilaudid) 1 mg Q2 PRN IV PAIN Last administered on 11:57; Admin Dose 1 MG; Start 02/01/17 at 20:30 Docusate Sodium (Colace) 100 mg BID PRN PO CONSTIPATION; Start 02/01/17 at 20: 30 Bisacodyl (Dulcolax Supp) 10 mg BID PRN [place] CONSTIPATION; Start 02/01/17 at 20: 30 Sodium Biphosphate/ Sodium Phosphate (Fleet Enema) 133 ml BID PRN [place] CONSTIPATION; Start 02/01/17 at 20:30 Enoxaparin Sodium 40 mg 40 mg DAILY SC Last administered on 02/02/17 08:38; Admin Dose 40 MG; Start 02/02/17 at 09:00; Status Future Hold Propofol (Diprivan) 100 ml @ 2.202 mls/ hr Q12H IV Last administered on 07:38; Admin Dose 11.01 MLS/HR; Start 02/01/17 at 23:30 Ketorolac Tromethamine 30 mg 30 mg Q6H PRN IV PAIN; Start 02/02/17 at 09:30 Cefepime HCl 50 ml @ 100 mls/hr Q12 IVPB ; Start 02/03/17 at 21:00 Potassium Chloride/Dextrose/ Sod Cl (D5-1/2ns + KCl 40 Meq) 1,000 ml @ 125 mls/ hr Q8H IV ; Start 02/03/17 at 16:30 SANDRA DAVIS MD Feb 03, 2017 15:43
[2017-02-03] MEDS: D5W-0.45 NACL + KCL 40 MEQ 1,000 ML IV SCH (17:02)
--- NOTE | 2017-02-03 17:38 | PN ---
DATE: 02/03/2017 SUBJECTIVE: Patient is awake, comfortable on CPAP. Family at bedside. No fevers. WBC 5.7, H and H 8.6 and 26, platelets 49, neutrophils 74, bands 16, lymphs 5, BUN 21, creatinine 1.83, lactic acid 1.9. MICROBIOLOGY: Intra-abdominal fluid collection growing E. coli, enterococcus species, strep with fi nal sensitivities pending. INDWELLINGS: Endotracheal tube, NG tube, Zeng, right-sided STEVE and colostomy. ANTIMICROBIALS: The patient is on cefepime. Status post Zosyn. PHYSICAL EXAMINATION: GENERAL: This is a fragile, elderly man who is in no distress. HEENT: Head atraumatic, normocephalic. Sclerae anicteric. Buccal mucosa dry. NECK: Supple, trachea midline. CHEST: Rise symmetrical. Breath sounds diminished to bases. HEART: S1, S2. ABDOMEN: Distended. Bowel sounds hyperactive. EXTREMITIES: Without cyanosis or edema. ASSESSMENT 1. Status post perforated viscus repair on 02/01/2017. 2. Crohn's disease. 3. Acute renal failure. 4. Transaminitis with elevated total bilirubin, improving. 5. Anemia. 6. Respiratory failure with bibasilar atelectasis. 7. Significant thrombocytopenia. PLAN: We are going to change patient back to Zosyn for enterococcal coverage. Monitor his platelet count closely. Await for final intra-abdominal fluid cultures and sensitivities. Continue followi ng surgical, pulmonary and GI recommendations. Dictated By: THOMAS ELLIS EAR MACHINE OPERATOR for MICKY RAMÍREZ/NTS Conf#: [id number] DID#: [id number]
[2017-02-03] MEDS ORDERED: CEFEPIME 1GM/50 ML (PMX) 50 ML IVPB SCH (21:00)
[2017-02-03] MEDS: PIPER-TAZO 2.25 GM (PMX) 50 ML IVPB SCH (21:39)
[2017-02-04] VITALS (76 sets, daily range): BP systolic 88–113; BP diastolic 60–91; PULSE 97–117; RESP 12–34
[2017-02-04] MEDS: HYDROmorphONE 1 MG/ML SYG IV PRN (00:47)
[2017-02-04] MEDS: D5W-0.45 NACL + KCL 40 MEQ 1,000 ML IV SCH ×4 (00:50→21:06)
[2017-02-04] MEDS: METOCLOPRAMIDE 10 MG INJ IV SCH ×4 (04:34→21:06)
[2017-02-04] MEDS: PROPOFOL 100 ML IV SCH ×4 (04:41→21:07)
[2017-02-04] MEDS: PIPER-TAZO 2.25 GM (PMX) 50 ML IVPB SCH (05:28)
[2017-02-04] MEDS: PANTOPRAZOLE 40 MG INJ IV SCH (05:28)
[2017-02-04 05:58] LABS: ADD SCAN DIFF NO
[2017-02-04 05:59] LABS: AADO2 Arterial 116.2 mmHg (7.0-24.0); Allen Test ACCEPTAB; Arterial Base Excess 1.2 mmol/L (-3.0-3); Arterial COHb 0.2 % (0.0-3.0); Arterial Fraction of Oxyhgb 91.1 % (93.0-99.0); Arterial MetHb 0 % (0.0-1.5); Arterial Total Hemglobin 10.8 g/dl (12.0-18.0); Blood Gas Low PEEP Setting 0 cmH2O; MODE VENT - AC
[2017-02-04 06:16] LABS: ALBUMIN 1.8 g/dl (3.3-4.9)
[2017-02-04 06:17] LABS: POTASSIUM 3.7 mmol/L (3.5-5.1)
[2017-02-04 06:19] LABS: ALBUMIN/GLOBULIN RATIO 0.72; BILIRUBIN,INDIRECT 0.3 mg/dl (0-1.1); BILIRUBIN,TOTAL 0.3 mg/dl (0.2-1.3); CREATININE 0.94 mg/dl (0.61-1.24); TOTAL PROTEIN 4.3 g/dl (6.1-8.1)
[2017-02-04 06:20] LABS: CALCIUM 6.3 mg/dl (8.4-10.2)
[2017-02-04 06:24] LABS: ABNORMAL IP MESSAGE 1; BASOPHILS % 0.2 % (0.0-2.0); EOSINOPHILS % 0.5 % (0.0-7.0); HEMATOCRIT 27.7 % (42.0-52.0); HEMOGLOBIN 9.1 g/dl (14.0-18.0); LYMPHOCYTES # 0.4 10^3/ul (0.8-2.9); LYMPHOCYTES % 5.7 % (15.0-51.0); MEAN CORPUSCULAR HEMOGLOBIN 28.5 pg (29.0-33.0); MEAN CORPUSCULAR HGB CONC 32.9 g/dl (32.0-37.0); MEAN CORPUSCULAR VOLUME 86.8 fl (82.0-101.0); MONOCYTE # 0.3 10^3/ul (0.3-0.9); MONOCYTES % 5.1 % (0.0-11.0); NEUTROPHIL # 5.5 10^3/ul (1.6-7.5); NEUTROPHILS % 87.1 % (39.0-77.0); RED BLOOD COUNT 3.19 10^6/ul (4.70-6.10); RED CELL DISTRIBUTION WIDTH 16.4 % (11.5-14.5); WHITE BLOOD COUNT 6.3 10^3/ul (4.8-10.8)
[2017-02-04 06:34] LABS: PLATELET COUNT 29 10^3/UL (140-415)
--- NOTE | 2017-02-04 08:15 | RADRPT ---
PROCEDURE: XR Chest. CLINICAL INDICATION: INTUBATED TECHNIQUE: Single frontal view of the chest was obtained. COMPARISON: Chest x-ray from 02/03/2017 FINDINGS: The endotracheal tube and enteric tube are unchanged in position. The heart and mediastinum are within normal limits. Hazy opacities are again noted over the right mid to lower lung zones due to atelectasis and / or in filtrate. There is no significant pleural effusion or pneumothorax. IMPRESSION: No significant interval change. RPTAT: EE Physician Carlee Date Time Electronically viewed and signed by Physician Carlee on 02/04/2017 08:14 /
--- NOTE | 2017-02-04 10:14 | PN ---
Date/Time of Note Date/Time of Note DATE: 02/04/17 TIME: 10:04 Assessment/Plan VTE Prophylaxis VTE Prophylaxis Intervention: SCD's Lines/Catheters IV Catheter Type (from Nrs): Peripheral IV Urinary Cath still in place: Yes Reason Cath still needed: terminal illness/intractable pain Assessment/Plan Assessment/Plan IMPRESSION 1. Perforated sigmoid colon 2/2 Severe Crohn's colitis S/p Urgent Open Cronin's procedure with end colostomy, liver biopsy and abdominal lavage 02/01/17 2. Abdominal pain, secondary to above. 3. History of Crohn's disease, diagnosed 4 years ago. 4. Diarrhea: resolved. initial issue was likely secondary to Crohn's flare up. 5. Electrolyte Abnormalities 6. SIRS with lactic acidosis 2/2 severe colitis: improved 7. Post Operative Resp failure, on a vent: failed CPAP trial again today 8. Thrombocytopenia: PLAN: * Today is post op day #3 * Continue vent weaning and possible extubation. Failed CPAP trial again today * Continue current ICU post op care and Mgt * GI now on board to aid with mgt of Crohn's colitis * Replace electrolytes as needed * PRN pain control/ antiemetics/ antipyretics/ supportive care * Will repeat PLT in the afternoon and transfuse as needed. There is no sign of bleeding, colostomy bag with greenish/brownish stool and hgb with slight improvement from yesterday. Will send some DIC panel and also place a hematology consult Subjective 24 Hr Interval Summary Free Text/Dictation Intubated, on CPAP trial. Opens eyes to verbal stimuli and attempts to follow commands, but is lethargic. . Exam/Review of Systems Vital Signs Vitals Vital Signs Date Time Temp Pulse Resp B/P Pulse Ox O2 Delivery O2 Flow Rate FiO2 02/04/17 08:00 104 02/04/17 07:45 18 99 02/04/17 07:30 100.3 112/91 Mechanical Ventilator 02/04/17 05:10 30 02/01/17 16:30 3.0 Intake and Output 02/03/17 02/03/17 02/04/17 15:00 23:00 07:00 Intake Total 1252.02 ml 1281.20 ml 1418.16 ml Output Total 1375 ml 735 ml 975 ml Balance -122.98 ml 546.20 ml 443.16 ml Exam Constitutional: intubated. no distress on vent. lethargic, but opens eyes to verbal stimuli and attempts to follow commands, but he is weak Head: atraumatic, normocephalic Eyes: PERRL Respiratory: diminished breath sounds Cardiovascular: tachycardic with regular rhythm Gastrointestinal: Soft, Right sided colostomy with brownish/greenish stool. surgical site covered. Right sided draining tube in place Extremities: normal pulses Results Result Diagram: 02/04/17 0430 02/04/17 0430 Results 24 hrs Laboratory Tests Test 02/03/17 12:30 02/04/17 04:30 02/04/17 05:00 Blood Gas Specimen Source Blood arterial Blood arterial Arterial Blood Date Drawn 02/03/2017 12:30:16 PM 02/04/2017 5:45:54 AM Arterial Blood pH (Temp corrected) 7.474 H 7.494 H Arterial Blood pCO2 (Temp correct) 31.2 L 31.9 L Arterial Blood pO2 (Temp corrected) 62.6 L 60.2 L Arterial Blood HCO3 22.4 24.0 Arterial Blood Base Excess -0.7 1.2 Arterial Blood Oxygen Saturation 91.5 L 91.3 L Raffy Test ACCEPTAB ACCEPTAB Arterial Blood Gas Puncture Site Right Radial Right Radial Arterial Blood Carboxyhemoglobin 0.3 0.2 Arterial Blood Methemoglobin 0.1 0 Blood Gas A-a O2 Differential 114.6 H 116.2 H Oxyhemoglobin Percent 91.1 L 91.1 L Total Hemoglobin 9.7 L 10.8 L Blood Gas Temperature 37.0 37.0 Blood Gas Actual Respiration Rate 32 23 Blood Gas Modality VENT - CPAP VENT - AC FiO2 30.0 30.0 Blood Gas Low PEEP Setting 0 0 Blood Gas Pressure Support 10 Blood Gas Notified Whom BARBIE MAI Blood Gas Notified Time 02/03/2017 1:03:52 PM 02/04/2017 5:59:44 AM White Blood Count 6.3 Red Blood Count 3.19 L Hemoglobin 9.1 L Hematocrit 27.7 L Mean Corpuscular Volume 86.8 Mean Corpuscular Hemoglobin 28.5 L Mean Corpuscular Hemoglobin Concent 32.9 Red Cell Distribution Width 16.4 H Platelet Count 29 #*L Mean Platelet Volume Neutrophils % 87.1 H Lymphocytes % 5.7 L Monocytes % 5.1 Eosinophils % 0.5 Basophils % 0.2 Nucleated Red Blood Cells % 0.0 Neutrophils # 5.5 Lymphocytes # 0.4 L Monocytes # 0.3 Eosinophils # 0.0 Basophils # 0.0 Nucleated Red Blood Cells # 0.0 Sodium Level 145 H Potassium Level 3.7 Chloride Level 110 Carbon Dioxide Level 24 Anion Gap 15 Blood Urea Nitrogen 19 Creatinine 0.94 Glucose Level 119 Calcium Level 6.3 L Phosphorus Level 2.0 L Magnesium Level 1.7 Total Bilirubin 0.3 Direct Bilirubin 0.00 Indirect Bilirubin 0.3 Aspartate Amino Transf (AST/SGOT) 74 H Alanine Aminotransferase (ALT/SGPT) 31 Alkaline Phosphatase 73 Total Protein 4.3 L Albumin 1.8 L Globulin 2.50 Albumin/Globulin Ratio 0.72 Blood Gas Respiration Rate 12.0 Blood Gas Tidal Volume 650.0 Medications Medications Current Medications Ondansetron HCl (Zofran Inj) 4 mg Q6H PRN IV NAUSEA AND/OR VOMITING; Start at 03:30 Metoclopramide HCl (Reglan) 10 mg Q6H IV Last administered on 02/04/17 04:34; Admin Dose 10 MG; Start 02/01/17 at 03:30 Hydromorphone HCl (Dilaudid) 1 mg Q4H PRN IV pain Last administered on 00:47; Admin Dose 1 MG; Start 02/01/17 at 03:30 Pantoprazole (Protonix Iv) 40 mg DAILY@06 IV Last administered on 02/04/17 05: 28; Admin Dose 40 MG; Start 02/01/17 at 06:00 Acetaminophen/ Hydrocodone Bitart ([place] (5/325)) 1 tab Q4H PRN PO PAIN LEVEL 4 -7; Start 02/01/17 at 20:30 Acetaminophen/ Hydrocodone Bitart ([place] (5/325)) 2 tab Q4H PRN PO PAIN LEVEL 7 -10; Start 02/01/17 at 20:30 Hydromorphone HCl (Dilaudid) 0.5 mg Q2 PRN IV PAIN; Start 02/01/17 at 20:30 Hydromorphone HCl (Dilaudid) 1 mg Q2 PRN IV PAIN Last administered on 11:57; Admin Dose 1 MG; Start 02/01/17 at 20:30 Docusate Sodium (Colace) 100 mg BID PRN PO CONSTIPATION; Start 02/01/17 at 20: 30 Bisacodyl (Dulcolax Supp) 10 mg BID PRN [place] CONSTIPATION; Start 02/01/17 at 20: 30 Sodium Biphosphate/ Sodium Phosphate (Fleet Enema) 133 ml BID PRN [place] CONSTIPATION; Start 02/01/17 at 20:30 Enoxaparin Sodium 40 mg 40 mg DAILY SC Last administered on 02/02/17 08:38; Admin Dose 40 MG; Start 02/02/17 at 09:00; Status Future Hold Propofol (Diprivan) 100 ml @ 2.202 mls/ hr Q12H IV Last administered on 04:41; Admin Dose 13.212 MLS/HR; Start 02/01/17 at 23:30 Ketorolac Tromethamine 30 mg 30 mg Q6H PRN IV PAIN; Start 02/02/17 at 09:30 Potassium Chloride/Dextrose/ Sod Cl 1,000 ml @ 125 mls/hr Q8H IV Last administered on 02/04/17 08:04; Admin Dose 125 MLS/HR; Start 02/03/17 at 16:30 Piperacillin Sod/ Tazobactam Sod (Zosyn 2.25gm/ 50ml (Pmx)) 50 ml @ 100 mls/hr Q8 IVPB Last administered on 02/04/17 05:28; Admin Dose 100 MLS/HR; Start at 22:00 CATIE ELENA MD Feb 04, 2017 10:14
[2017-02-04] MEDS ORDERED: MAGNESIUM SULFATE 2 GM/50 ML 50 ML IVPB ONE (10:30)
--- NOTE | 2017-02-04 10:58 | CONS ---
Date/Time of Note Date/Time of Note DATE: 02/04/17 TIME: 10:56 Consult Date/Type/Reason Admit Date/Time Feb 01, 2017 at 03:10 Type of Consultation: Pulmonary/critical care Ordering Provider: VINCE PADGETT Patient remains intubated sedated on mechanical ventilation currently not requiring vasopressor support Failed previous weaning trial secondary to low tidal volume increased work of breathing Objective Vital Signs Date Time Temp Pulse Resp B/P Pulse Ox O2 Delivery O2 Flow Rate FiO2 02/04/17 10:30 111 21 94/71 100 02/04/17 07:30 100.3 Mechanical Ventilator 02/04/17 05:10 30 02/01/17 16:30 3.0 Intake and Output 02/03/17 02/03/17 02/04/17 15:00 23:00 07:00 Intake Total 1252.02 ml 1281.20 ml 1418.16 ml Output Total 1375 ml 735 ml 975 ml Balance -122.98 ml 546.20 ml 443.16 ml Exam PHYSICAL EXAMINATION GENERAL: Young gentleman on mechanical ventilation appears comfortable at rest VITAL SIGNS: see below. HEENT: Pupils equal, round, and reactive to light. CARDIAC: S1, S2, tachycardia. CHEST: Diminished air entry bilaterally. ABDOMEN: Mildly distended. No bowel sounds. EXTREMITIES: No cyanosis, clubbing or edema. NEUROLOGIC: No focal deficits. Results/Medications Result Diagram: 02/04/17 0430 02/04/17 0430 Results 24 hrs Laboratory Tests Test 02/03/17 12:30 02/04/17 04:30 02/04/17 05:00 Blood Gas Specimen Source Blood arterial Blood arterial Arterial Blood Date Drawn 02/03/2017 12:30:16 PM 02/04/2017 5:45:54 AM Arterial Blood pH (Temp corrected) 7.474 H 7.494 H Arterial Blood pCO2 (Temp correct) 31.2 L 31.9 L Arterial Blood pO2 (Temp corrected) 62.6 L 60.2 L Arterial Blood HCO3 22.4 24.0 Arterial Blood Base Excess -0.7 1.2 Arterial Blood Oxygen Saturation 91.5 L 91.3 L Raffy Test ACCEPTAB ACCEPTAB Arterial Blood Gas Puncture Site Right Radial Right Radial Arterial Blood Carboxyhemoglobin 0.3 0.2 Arterial Blood Methemoglobin 0.1 0 Blood Gas A-a O2 Differential 114.6 H 116.2 H Oxyhemoglobin Percent 91.1 L 91.1 L Total Hemoglobin 9.7 L 10.8 L Blood Gas Temperature 37.0 37.0 Blood Gas Actual Respiration Rate 32 23 Blood Gas Modality VENT - CPAP VENT - AC FiO2 30.0 30.0 Blood Gas Low PEEP Setting 0 0 Blood Gas Pressure Support 10 Blood Gas Notified Whom BARBIE MAI Blood Gas Notified Time 02/03/2017 1:03:52 PM 02/04/2017 5:59:44 AM White Blood Count 6.3 Red Blood Count 3.19 L Hemoglobin 9.1 L Hematocrit 27.7 L Mean Corpuscular Volume 86.8 Mean Corpuscular Hemoglobin 28.5 L Mean Corpuscular Hemoglobin Concent 32.9 Red Cell Distribution Width 16.4 H Platelet Count 29 #*L Mean Platelet Volume Neutrophils % 87.1 H Lymphocytes % 5.7 L Monocytes % 5.1 Eosinophils % 0.5 Basophils % 0.2 Nucleated Red Blood Cells % 0.0 Neutrophils # 5.5 Lymphocytes # 0.4 L Monocytes # 0.3 Eosinophils # 0.0 Basophils # 0.0 Nucleated Red Blood Cells # 0.0 Sodium Level 145 H Potassium Level 3.7 Chloride Level 110 Carbon Dioxide Level 24 Anion Gap 15 Blood Urea Nitrogen 19 Creatinine 0.94 Glucose Level 119 Calcium Level 6.3 L Phosphorus Level 2.0 L Magnesium Level 1.7 Total Bilirubin 0.3 Direct Bilirubin 0.00 Indirect Bilirubin 0.3 Aspartate Amino Transf (AST/SGOT) 74 H Alanine Aminotransferase (ALT/SGPT) 31 Alkaline Phosphatase 73 Total Protein 4.3 L Albumin 1.8 L Globulin 2.50 Albumin/Globulin Ratio 0.72 Blood Gas Respiration Rate 12.0 Blood Gas Tidal Volume 650.0 Medications Current Medications Ondansetron HCl (Zofran Inj) 4 mg Q6H PRN IV NAUSEA AND/OR VOMITING; Start at 03:30 Metoclopramide HCl (Reglan) 10 mg Q6H IV Last administered on 02/04/17 04:34; Admin Dose 10 MG; Start 02/01/17 at 03:30 Hydromorphone HCl (Dilaudid) 1 mg Q4H PRN IV pain Last administered on 00:47; Admin Dose 1 MG; Start 02/01/17 at 03:30 Pantoprazole (Protonix Iv) 40 mg DAILY@06 IV Last administered on 02/04/17 05: 28; Admin Dose 40 MG; Start 02/01/17 at 06:00 Acetaminophen/ Hydrocodone Bitart ([place] (5/325)) 1 tab Q4H PRN PO PAIN LEVEL 4 -7; Start 02/01/17 at 20:30 Acetaminophen/ Hydrocodone Bitart ([place] (5/325)) 2 tab Q4H PRN PO PAIN LEVEL 7 -10; Start 02/01/17 at 20:30 Hydromorphone HCl (Dilaudid) 0.5 mg Q2 PRN IV PAIN; Start 02/01/17 at 20:30 Hydromorphone HCl (Dilaudid) 1 mg Q2 PRN IV PAIN Last administered on 11:57; Admin Dose 1 MG; Start 02/01/17 at 20:30 Docusate Sodium (Colace) 100 mg BID PRN PO CONSTIPATION; Start 02/01/17 at 20: 30 Bisacodyl (Dulcolax Supp) 10 mg BID PRN [place] CONSTIPATION; Start 02/01/17 at 20: 30 Sodium Biphosphate/ Sodium Phosphate (Fleet Enema) 133 ml BID PRN [place] CONSTIPATION; Start 02/01/17 at 20:30 Enoxaparin Sodium 40 mg 40 mg DAILY SC Last administered on 02/02/17 08:38; Admin Dose 40 MG; Start 02/02/17 at 09:00; Status Future Hold Propofol (Diprivan) 100 ml @ 2.202 mls/ hr Q12H IV Last administered on 04:41; Admin Dose 13.212 MLS/HR; Start 02/01/17 at 23:30 Ketorolac Tromethamine 30 mg 30 mg Q6H PRN IV PAIN; Start 02/02/17 at 09:30 Potassium Chloride/Dextrose/ Sod Cl 1,000 ml @ 125 mls/hr Q8H IV Last administered on 02/04/17 08:04; Admin Dose 125 MLS/HR; Start 02/03/17 at 16:30 Piperacillin Sod/ Tazobactam Sod 50 ml @ 100 mls/hr Q8 IVPB Last administered on 02/04/17 05:28; Admin Dose 100 MLS/HR; Start 02/03/17 at 22:00 Potassium Phosphate 30 mm/ Sodium Chloride 260 ml @ 65 mls/hr ONCE ONCE IVPB ; Start 02/04/17 at 12:00; Stop 02/04/17 at 15:59 Magnesium Sulfate (Magnesium Sulfate 2 Gm/50 ml) 50 ml @ 25 mls/hr ONCE ONCE IVPB ; Start 02/04/17 at 10:30; Stop 02/04/17 at 12:29 Assessment/Plan Chief Complaint/Hosp Course Assessment 1. Crohn's disease with perforation of sigmoid colon and sepsis status post arthroscopic sigmoid colectomy and end colostomy with lysis of adhesions 2. Metabolic acidosis likely secondary to hypoperfusion 3. Hypokalemia 4. Hypoxemic respiratory failure possibly underlying pleural effusions with compressive atelectasis resulting in failure to wean from mechanical ventilation 5. Thrombocytopenia questionable DIC versus HIT Plan 1. Continue surgical care recommendations 2. Monitor electrolytes 3. Nasogastric tube to suction for surgery 4. CPAP weaning trial this morning as tolerated if fails will require CT chest to evaluate lung parenchyma 5. DVT and GI prophylaxis 6. Antibiotics per primary team Disposition Continue ICU care Discussed with nursing staff Critical care time 35 minutes Problems: RAMON DOUGLAS MD, [facility] Feb 04, 2017 10:58
[2017-02-04] MEDS ORDERED: POTASSIUM PHOSPHATE 30 MM in SOD CHLORIDE 0.9% 250 ML IVPB ONE (12:00)
[2017-02-04 14:21] LABS: INR 1.09; PROTIME 14.1 Sec (12.2-14.2); PT RATIO 1.1
[2017-02-04 14:22] LABS: PARTIAL THROMBOPLASTIN TIME 33.4 Sec (25.0-35.0)
[2017-02-04 14:30] LABS: FIBRIN SPLIT PRODUCT <10 ug/ml (<10)
--- NOTE | 2017-02-04 14:51 | PN ---
Date/Time of Note Date/Time of Note DATE: 02/04/17 TIME: 14:45 Assessment/Plan Lines/Catheters IV Catheter Type (from Nrs): Peripheral IV Zeng in Place (from Nrs): Yes Assessment/Plan Assessment/Plan [facility] Progress Note Date of Service: 02/04/17 Today's Impression & Plan: Overall stable and improving. Failed weaning trial again today. D/w Dr. Britt and agree with cardiology consultation and possible echo. May need L pleurocentesis. No obvious major post operative complication. No major wound problems. Updated patient's mother over the phone. With above assessment, I've recommended the following for today: 1. Wean to extubate 2. D/c NG once extubated 3. Clear liquid diet and advance to regular after above; for now, start gastric feeds through NG 4. Dilaudid [employer] once extubated and unrestrained 5. Consider further diuresis 6. Labs in am 7. Increase activity 8. Increase ICS 9. Keep in ICU 10. Agree with cardiology consultation with consideration for echo 11. Agree with holding anticoagulation while thrombocytopenic 12. Appreciate ID and rest of the excellent medical input regarding management of broad spec antimicrobials in the setting of thrombocytopenia Thank you again for your great care of this very pleasant patient and wonderful family. If there are any questions, please feel free to call me at [phone]. TOTAL VISIT TIME: 20 minutes of which more than half was spent in [id number] discussion with the patient, possibly including family, as well as coordination of care between multiple physicians and providers. Disclaimer: Inadvertent spelling or grammatical errors are likely due to EHR/ dictation software use and do not reflect on the overall quality of patient care. Updated Clinical Summary: a very pleasant 46-year-old gentleman with history of Crohn's disease as well as prior surgery for anal fistula approximately 5 years ago, and a torn meniscus repair on the left knee, presenting with abdominal pain associated with a few weeks' duration of diarrhea. S/p an otherwise uncomplicated diagnostic laparoscopy was converted first to hand assist and then to open exploration when perforated sigmoid colon was found and it was resected with a Deena type procedure and end colostomy as well as core needle liver biopsy, segment 5, due to presence of fatty liver disease, lysis of adhesions, and abdominal lavage on 02/01/17. COMORBIDITIES: 1. Crohn disease with perforation of sigmoid colon and sepsis. S/p an otherwise uncomplicated diagnostic laparoscopy was converted first to hand assist and then to open exploration when perforated sigmoid colon was found and it was resected with a Deena type procedure and end colostomy as well as core needle liver biopsy, segment 5, due to presence of fatty liver disease, lysis of adhesions, and abdominal lavage on 02/01/17. 2. Repair of a fistula approximately 5 years ago. 3. Torn meniscus on the left knee status post repair. Subjective: No major events or complaints overnight; remains intubated and failed weaning trial again; no abd pain and under control with medications; no n/v/d; no sob or cp; + flatus; + BM; + activity Objective: Vitals: See below Exam: GENERAL: On exam, the patient was laying in bed and appeared to be comfortable and in no acute distress. ABDOMEN: Soft, nontender and nondistended. Incision dressings are clean, dry and intact without any evidence of obvious underlying erythema, edema, discharge , or hernia. Surgery drain ss. Ostomy pink and viable; some air and stool in the bag. There are no peritoneal signs or guarding. SKIN: Skin appears to be pink and feels warm to touch. NEUROLOGIC: Patient is awake, alert, and follows commands appropriately. Exam/Review of Systems Vital Signs Vitals Vital Signs Date Time Temp Pulse Resp B/P Pulse Ox O2 Delivery O2 Flow Rate FiO2 02/04/17 13:32 107 25 99 35 02/04/17 11:30 96/60 02/04/17 07:30 100.3 Mechanical Ventilator 02/01/17 16:30 3.0 Intake and Output 02/03/17 02/03/17 02/04/17 15:00 23:00 07:00 Intake Total 1252.02 ml 1281.20 ml 1418.16 ml Output Total 1375 ml 735 ml 975 ml Balance -122.98 ml 546.20 ml 443.16 ml Results Result Diagram: 02/04/17 0430 02/04/17 0430 TI HILTON M.D. Feb 04, 2017 14:51
[2017-02-04] MEDS ORDERED: VANCOMYCIN IV PER PHARMACY XX SCH (15:00)
--- NOTE | 2017-02-04 15:01 | PN ---
DATE: 02/04/2017 SUBJECTIVE: The patient failed weaning yesterday. He is lying comfortably in bed, intubated, sedat ed. VITAL SIGNS: Temperature max 100.3, pulse 107, respirations 21, blood pressure 94/66, saturation 99 % on vent. LABORATORY DATA: WBC 6.3, H and H 9.1 and 27.7, platelets 29, neutrophils 87.1, no bands. BUN 19, creatinine 0.94. MICROBIOLOGY: Intra-abdominal fluid culture growing enterococcus species, strep, Proteus mirabilis, E. coli. INDWELLINGS: Endotracheal tube, NG tube, colostomy, right STEVE, Zeng catheter. ANTIMICROBIALS: The patient is on Zosyn. PHYSICAL EXAMINATION: GENERAL: This is well-developed, middle-aged white man who is lying comfortably in bed. HEENT: Head atraumatic, normocephalic. Sclerae anicteric. Buccal mucosa dry. NECK: Supple, trachea midline. CHEST: Rise symmetrical. Breath sounds diminished to bases. HEART: S1, S2. ABDOMEN: Distended, soft. Bowel sounds hyperactive. EXTREMITIES: Without cyanosis. ASSESSMENT: 1. Severe sepsis. 2. Crohn's disease status post perforated viscus repair on 02/01/2017. 3. Anemia. 4. Persistent thrombocytopenia. 5. Acute kidney injury with kidney function improving. PLAN: We are going to change antibiotics to Levaquin and vancomycin given progressive thrombocytope ulices. Monitor his renal function closely. Continue management as per primary team. We will add emp iric Flagyl for anaerobic coverage. Dictated By: THOMAS ELLIS BUTTER PRINTER for MICKY RAMÍREZ/NTS Conf#: [id number] DID#: [id number]
--- NOTE | 2017-02-04 15:12 | RADRPT ---
PROCEDURE: CT Chest without contrast. CLINICAL INDICATION: Hypoxemic respiratory failure. TECHNIQUE: Multiple contiguous helical CT images of the chest were obtained without the administra tion of intravenous contrast. Coronal and sagittal reformatted images were obtained from the source images. CTDIvol (mGy): 7.91; Total Exam DLP (mGy-cm): 298.19. One or more of the following dose reduction techniques were utilized: - Automated exposure control. - Adjustment of the mA and/or kV according to patient size. - Use of iterative reconstruction technique. COMPARISON: Chest x-ray 02/04/2017. CT abdomen/pelvis 02/01/2017. FINDINGS: Limited imaging of the lower neck is unremarkable. The heart is not enlarged. There is no pericardial effusion. There is no mediastinal, hilar or axi llary lymphadenopathy. The thoracic aorta is normal in caliber. The pulmonary arteries are not enl arged. An endotracheal tube is in place terminating within the mid portion of the trachea. Small layering bilateral pleural effusions are present. Consolidation within the dependent portions of the bilater al lower lobes is observed. Patchy ground-glass opacification with background interstitial thickeni ng is seen predominately within the anterior upper lungs. The tracheobronchial tree is normal in ca liber. Limited imaging of the upper abdomen demonstrates fatty infiltration of the liver. An enteric tube terminates within the stomach. Skeletal structures are unremarkable. Chest wall soft tissues are unremarkable. IMPRESSION: Patchy symmetric ground-glass opacification with background interstitial thickening, basilar consoli dation and small bilateral pleural effusions. Imaging findings can be seen in the setting of acute interstitial pneumonia or ARDS. Pulmonary edema and pneumonia are also included in the differential . Correlate with appropriate clinical data. RPTAT: HLST .Kandice Bonds MD, MD Date Time Electronically viewed and signed by .Kandice Bonds MD, MD on 02/04/2017 15:12 .T/
--- NOTE | 2017-02-04 15:30 | PN ---
Date/Time of Note Date/Time of Note DATE: 02/04/17 TIME: 15:25 Assessment/Plan VTE Prophylaxis VTE Prophylaxis Intervention: SCD's Lines/Catheters IV [facility] Peripheral IV Central line still needed: Yes Urinary Cath still in place: Yes Reason Cath still needed: urinary retention Assessment/Plan Assessment/Plan Perforated sigmoid colon * Laparoscopic exploration,open sigmoid colectomy with Deena end colostomy with liver biopsy segment V * Crohn's disease * Respiratory failure stable on ventilator * Plan * continue present management * Will evaluate treatment for Crohn's once recovering Subjective 24 Hr Interval Summary Free Text/Dictation * Course reviewed with RN * patient seen and examined * failed CPAP trial Exam/Review of Systems Vital Signs Vitals Vital Signs Date Time Temp Pulse Resp B/P Pulse Ox O2 Delivery O2 Flow Rate FiO2 02/04/17 13:32 107 25 99 35 02/04/17 11:30 96/60 02/04/17 07:30 100.3 Mechanical Ventilator 02/01/17 16:30 3.0 Intake and Output 02/03/17 02/03/17 02/04/17 14:59 22:59 06:59 Intake Total 1187.02 ml 1344.09 ml 1418.16 ml Output Total 1475 ml 735 ml 1075 ml Balance -287.98 ml 609.09 ml 343.16 ml Exam Constitutional: frail ENMT: intubated, other (ng tube in placed) Neck: non-tender, supple Respiratory: diminished breath sounds, other (on ventilator) Cardiovascular: nl pulses, regular rate and rhythm Gastrointestinal: bowel sounds, distended, non-tender, other (colostomy), soft Genitourinary - Male: other (abbott catheter ) Extremities: normal pulses Results Result Diagram: 02/04/17 1340 02/04/17 0430 Results 24 hrs Laboratory Tests Test 02/04/17 04:30 02/04/17 05:00 02/04/17 13:40 White Blood Count 6.3 Red Blood Count 3.19 L Hemoglobin 9.1 L Hematocrit 27.7 L Mean Corpuscular Volume 86.8 Mean Corpuscular Hemoglobin 28.5 L Mean Corpuscular Hemoglobin Concent 32.9 Red Cell Distribution Width 16.4 H Platelet Count 29 #*L Pending Mean Platelet Volume Neutrophils % 87.1 H Lymphocytes % 5.7 L Monocytes % 5.1 Eosinophils % 0.5 Basophils % 0.2 Nucleated Red Blood Cells % 0.0 Neutrophils # 5.5 Lymphocytes # 0.4 L Monocytes # 0.3 Eosinophils # 0.0 Basophils # 0.0 Nucleated Red Blood Cells # 0.0 Sodium Level 145 H Potassium Level 3.7 Chloride Level 110 Carbon Dioxide Level 24 Anion Gap 15 Blood Urea Nitrogen 19 Creatinine 0.94 Glucose Level 119 Calcium Level 6.3 L Phosphorus Level 2.0 L Magnesium Level 1.7 Total Bilirubin 0.3 Direct Bilirubin 0.00 Indirect Bilirubin 0.3 Aspartate Amino Transf (AST/SGOT) 74 H Alanine Aminotransferase (ALT/SGPT) 31 Alkaline Phosphatase 73 Total Protein 4.3 L Albumin 1.8 L Globulin 2.50 Albumin/Globulin Ratio 0.72 Blood Gas Specimen Source Blood arterial Arterial Blood Date Drawn 02/04/2017 5:45:54 AM Arterial Blood pH (Temp corrected) 7.494 H Arterial Blood pCO2 (Temp correct) 31.9 L Arterial Blood pO2 (Temp corrected) 60.2 L Arterial Blood HCO3 24.0 Arterial Blood Base Excess 1.2 Arterial Blood Oxygen Saturation 91.3 L Raffy Test ACCEPTAB Arterial Blood Gas Puncture Site Right Radial Arterial Blood Carboxyhemoglobin 0.2 Arterial Blood Methemoglobin 0 Blood Gas A-a O2 Differential 116.2 H Oxyhemoglobin Percent 91.1 L Total Hemoglobin 10.8 L Blood Gas Temperature 37.0 Blood Gas Respiration Rate 12.0 Blood Gas Actual Respiration Rate 23 Blood Gas Modality VENT - AC FiO2 30.0 Blood Gas Tidal Volume 650.0 Blood Gas Low PEEP Setting 0 Blood Gas Notified Whom MA Blood Gas Notified Time 02/04/2017 5:59:44 AM Prothrombin Time 14.1 Prothrombin Time Ratio 1.1 INR International Normalized Ratio 1.09 Activated Partial Thromboplast Time 33.4 Thrombin Time Pending Fibrinogen 407.0 Plasma Fibrin Degradation Products <10 D-Dimer Pending Medications Medications Current Medications Ondansetron HCl (Zofran Inj) 4 mg Q6H PRN IV NAUSEA AND/OR VOMITING; Start at 03:30 Metoclopramide HCl (Reglan) 10 mg Q6H IV Last administered on 02/04/17t 11:29; Admin Dose 10 MG; Start 02/01/17 at 03:30 Hydromorphone HCl (Dilaudid) 1 mg Q4H PRN IV pain Last administered on 00:47; Admin Dose 1 MG; Start 02/01/17 at 03:30 Pantoprazole (Protonix Iv) 40 mg DAILY@06 IV Last administered on 02/04/17 05: 28; Admin Dose 40 MG; Start 02/01/17 at 06:00 Acetaminophen/ Hydrocodone Bitart ([place] (5/325)) 1 tab Q4H PRN PO PAIN LEVEL 4 -7; Start 02/01/17 at 20:30 Acetaminophen/ Hydrocodone Bitart ([place] (5/325)) 2 tab Q4H PRN PO PAIN LEVEL 7 -10; Start 02/01/17 at 20:30 Hydromorphone HCl (Dilaudid) 0.5 mg Q2 PRN IV PAIN; Start 02/01/17 at 20:30 Hydromorphone HCl (Dilaudid) 1 mg Q2 PRN IV PAIN Last administered on 11:57; Admin Dose 1 MG; Start 02/01/17 at 20:30 Docusate Sodium (Colace) 100 mg BID PRN PO CONSTIPATION; Start 02/01/17 at 20: 30 Bisacodyl (Dulcolax Supp) 10 mg BID PRN [place] CONSTIPATION; Start 02/01/17 at 20: 30 Sodium Biphosphate/ Sodium Phosphate (Fleet Enema) 133 ml BID PRN [place] CONSTIPATION; Start 02/01/17 at 20:30 Enoxaparin Sodium 40 mg 40 mg DAILY SC Last administered on 02/02/17 08:38; Admin Dose 40 MG; Start 02/02/17 at 09:00; Status Future Hold Propofol (Diprivan) 100 ml @ 2.202 mls/ hr Q12H IV Last administered on 11:23; Admin Dose 13.212 MLS/HR; Start 02/01/17 at 23:30 Ketorolac Tromethamine 30 mg 30 mg Q6H PRN IV PAIN; Start 02/02/17 at 09:30 Potassium Chloride/Dextrose/ Sod Cl 1,000 ml @ 125 mls/hr Q8H IV Last administered on 02/04/17 08:04; Admin Dose 125 MLS/HR; Start 02/03/17 at 16:30 Potassium Phosphate 30 mm/ Sodium Chloride 260 ml @ 65 mls/hr ONCE ONCE IVPB Last administered on 02/04/17t 11:30; Admin Dose 65 MLS/HR; Start 02/04/17 at 12 :00; Stop 02/04/17 at 15:59 Fentanyl 100 ml @ 2.5 mls/hr TITRATE IV ; Start 02/04/17 at 11:00 Levofloxacin/ Dextrose 150 ml @ 100 mls/hr Q24H IVPB ; Start 02/04/17 at 16:00 Metronidazole 100 ml @ 100 mls/hr Q8 IVPB ; Start 02/04/17 at 15:00 Vancomycin HCl 1.25 gm/Sodium Chloride 250 ml @ 83.333 mls/ hr ONCE IVPB ; Start 02/04/17 at 18:00; Stop 02/04/17 at 23:00 Vancomycin HCl (Vancocin) 250 ml @ 125 mls/hr Q12H IVPB ; Start 02/05/17 at 06: 00 SANDRA DAVIS MD Feb 04, 2017 15:30
[2017-02-04 15:55] LABS: D-DIMER 6013.06 ng/ml (<460); THROMBIN TIME 14.7 SEC (13.8-19.1)
[2017-02-04] MEDS ORDERED: LEVOFLOXACIN 750MG/D5W (PMX) 150 ML IVPB SCH (16:00)
[2017-02-04] MEDS: metroNIDAZOLE 500 MG/NS (PMX) 100 ML IVPB SCH ×2 (16:58→23:48)
[2017-02-04 17:44] LABS: PLATELET COUNT 31 10^3/UL (140-440)
[2017-02-04] MEDS ORDERED: VANCOMYCIN 1.25 GM in SOD CHLORIDE 0.9% 250 ML IVPB SCH (18:00)
--- NOTE | 2017-02-04 18:54 | CONS ---
Date/Time of Note Date/Time of Note DATE: 02/04/17 TIME: 18:46 Assessment/Plan Assessment/Plan Additional Assessment/Plan Perforated colon status post surgery Severe sepsis Respiratory failure Crohn's disease Thrombocytopenia -Patient status post CT chest with evidence of possible ARDS versus pneumonia. There is evidence of pulmonary vascular congestion on CT chest as well as well as peripheral edema. Unfortunately, patient's hypotension at the current time inhibits the use of diuretics currently. If pressure tolerates, would start low -dose IV diuretic therapy, check echocardiogram. Consultation Date/Type/Reason Admit Date/Time Feb 01, 2017 at 03:10 Type of Consultation: cv Reason for Consultation Respiratory failure Hx of Present Illness This is a 46-year-old male with history of Crohn's disease with perforated intestine status post abdominal surgery. Patient initially on IV pressors and has remained intubated since surgery. Patient with difficulty with weaning and cardiology consultation was requested to evaluate for any cardiac etiology is possible contributing factor to his respiratory failure. History was obtained from the medical chart and patient intubated. He is able to be awakened and answers questions with head nodding. Denies any chest pain or shortness of breath at the current time. He denies any history of any cardiac etiology. Unable to be performed at the current time given patient's current status Past Medical History Medical History: other (crohns disease) Past Surgical History Abdominal surgery Social History Smoking Status: Former smoker Exam/Review of Systems Vital Signs Vitals Vital Signs Date Time Temp Pulse Resp B/P Pulse Ox O2 Delivery O2 Flow Rate FiO2 02/04/17 17:30 99 20 95/71 100 02/04/17 17:15 98.8 02/04/17 17:02 35 02/04/17 07:30 Mechanical Ventilator 02/01/17 16:30 3.0 Intake and Output 02/03/17 02/03/17 02/04/17 15:00 23:00 07:00 Intake Total 1252.02 ml 1281.20 ml 1418.16 ml Output Total 1375 ml 735 ml 975 ml Balance -122.98 ml 546.20 ml 443.16 ml Exam Sleeping but arousable, follows commands, intubated, no apparent distress Head: normocephalic ENMT: intubated Respiratory: other (Coarse breath sounds bilaterally, no wheezing) Cardiovascular: other (S1-S2 heard), regular rate and rhythm Gastrointestinal: bowel sounds, other (Bandages on abdomen), soft Extremities: edema, other (No cyanosis) Results Result Diagram: 02/04/17 1340 02/04/17 0430 Results 24 hrs Laboratory Tests Test 02/04/17 04:30 02/04/17 05:00 02/04/17 13:40 White Blood Count 6.3 Red Blood Count 3.19 L Hemoglobin 9.1 L Hematocrit 27.7 L Mean Corpuscular Volume 86.8 Mean Corpuscular Hemoglobin 28.5 L Mean Corpuscular Hemoglobin Concent 32.9 Red Cell Distribution Width 16.4 H Platelet Count 29 #*L 31 #L Mean Platelet Volume Neutrophils % 87.1 H Lymphocytes % 5.7 L Monocytes % 5.1 Eosinophils % 0.5 Basophils % 0.2 Nucleated Red Blood Cells % 0.0 Neutrophils # 5.5 Lymphocytes # 0.4 L Monocytes # 0.3 Eosinophils # 0.0 Basophils # 0.0 Nucleated Red Blood Cells # 0.0 Sodium Level 145 H Potassium Level 3.7 Chloride Level 110 Carbon Dioxide Level 24 Anion Gap 15 Blood Urea Nitrogen 19 Creatinine 0.94 Glucose Level 119 Calcium Level 6.3 L Phosphorus Level 2.0 L Magnesium Level 1.7 Total Bilirubin 0.3 Direct Bilirubin 0.00 Indirect Bilirubin 0.3 Aspartate Amino Transf (AST/SGOT) 74 H Alanine Aminotransferase (ALT/SGPT) 31 Alkaline Phosphatase 73 Total Protein 4.3 L Albumin 1.8 L Globulin 2.50 Albumin/Globulin Ratio 0.72 Blood Gas Specimen Source Blood arterial Arterial Blood Date Drawn 02/04/2017 5:45:54 AM Arterial Blood pH (Temp corrected) 7.494 H Arterial Blood pCO2 (Temp correct) 31.9 L Arterial Blood pO2 (Temp corrected) 60.2 L Arterial Blood HCO3 24.0 Arterial Blood Base Excess 1.2 Arterial Blood Oxygen Saturation 91.3 L Raffy Test ACCEPTAB Arterial Blood Gas Puncture Site Right Radial Arterial Blood Carboxyhemoglobin 0.2 Arterial Blood Methemoglobin 0 Blood Gas A-a O2 Differential 116.2 H Oxyhemoglobin Percent 91.1 L Total Hemoglobin 10.8 L Blood Gas Temperature 37.0 Blood Gas Respiration Rate 12.0 Blood Gas Actual Respiration Rate 23 Blood Gas Modality VENT - AC FiO2 30.0 Blood Gas Tidal Volume 650.0 Blood Gas Low PEEP Setting 0 Blood Gas Notified Whom MA Blood Gas Notified Time 02/04/2017 5:59:44 AM Prothrombin Time 14.1 Prothrombin Time Ratio 1.1 INR International Normalized Ratio 1.09 Activated Partial Thromboplast Time 33.4 Thrombin Time 14.7 Fibrinogen 407.0 Plasma Fibrin Degradation Products <10 D-Dimer 6013.06 H D-Dimer Comment Medications Medications Current Medications Ondansetron HCl (Zofran Inj) 4 mg Q6H PRN IV NAUSEA AND/OR VOMITING; Start at 03:30 Metoclopramide HCl (Reglan) 10 mg Q6H IV Last administered on 02/04/17 16:31; Admin Dose 10 MG; Start 02/01/17 at 03:30 Hydromorphone HCl (Dilaudid) 1 mg Q4H PRN IV pain Last administered on 00:47; Admin Dose 1 MG; Start 02/01/17 at 03:30 Pantoprazole (Protonix Iv) 40 mg DAILY@06 IV Last administered on 02/04/17 05: 28; Admin Dose 40 MG; Start 02/01/17 at 06:00 Acetaminophen/ Hydrocodone Bitart ([place] (5/325)) 1 tab Q4H PRN PO PAIN LEVEL 4 -7; Start 02/01/17 at 20:30 Acetaminophen/ Hydrocodone Bitart ([place] (5/325)) 2 tab Q4H PRN PO PAIN LEVEL 7 -10; Start 02/01/17 at 20:30 Hydromorphone HCl (Dilaudid) 0.5 mg Q2 PRN IV PAIN; Start 02/01/17 at 20:30 Hydromorphone HCl (Dilaudid) 1 mg Q2 PRN IV PAIN Last administered on 11:57; Admin Dose 1 MG; Start 02/01/17 at 20:30 Docusate Sodium (Colace) 100 mg BID PRN PO CONSTIPATION; Start 02/01/17 at 20: 30 Bisacodyl (Dulcolax Supp) 10 mg BID PRN [place] CONSTIPATION; Start 02/01/17 at 20: 30 Sodium Biphosphate/ Sodium Phosphate (Fleet Enema) 133 ml BID PRN [place] CONSTIPATION; Start 02/01/17 at 20:30 Enoxaparin Sodium 40 mg 40 mg DAILY SC Last administered on 02/02/17 08:38; Admin Dose 40 MG; Start 02/02/17 at 09:00; Status Future Hold Propofol (Diprivan) 100 ml @ 2.202 mls/ hr Q12H IV Last administered on 16:25; Admin Dose 22.02 MLS/HR; Start 02/01/17 at 23:30 Ketorolac Tromethamine 30 mg 30 mg Q6H PRN IV PAIN; Start 02/02/17 at 09:30 Potassium Chloride/Dextrose/ Sod Cl 1,000 ml @ 125 mls/hr Q8H IV Last administered on 02/04/17 08:04; Admin Dose 125 MLS/HR; Start 02/03/17 at 16:30 Fentanyl 100 ml @ 2.5 mls/hr TITRATE IV ; Start 02/04/17 at 11:00 Levofloxacin/ Dextrose 150 ml @ 100 mls/hr Q24H IVPB Last administered on 02/04 16:31; Admin Dose 100 MLS/HR; Start 02/04/17 at 16:00 Metronidazole 100 ml @ 100 mls/hr Q8 IVPB Last administered on 02/04/17 16:58 ; Admin Dose 100 MLS/HR; Start 02/04/17 at 15:00 Vancomycin HCl 1.25 gm/Sodium Chloride 250 ml @ 83.333 mls/ hr ONCE IVPB Last administered on 02/04/17 17:40; Admin Dose 83.333 MLS/HR; Start 02/04/17 at 18: 00; Stop 02/04/17 at 23:00 Vancomycin HCl (Vancocin) 250 ml @ 125 mls/hr Q12H IVPB ; Start 02/05/17 at 06: 00 Procedures Procedures ECG done January 31 demonstrates sinus tachycardia at 139 bpm, QRS 86 ms, no significant ischemic STT wave abnormalities Keith Gandhi DO Feb 04, 2017 18:54
[2017-02-04] MEDS: FENTAnyl (DRIP) 1000 mcg/100mL 100 ML IV SCH (21:12)
[2017-02-05] VITALS (54 sets, daily range): BP systolic 90–117; BP diastolic 56–79; PULSE 96–110; RESP 0–38
[2017-02-05] MEDS: PROPOFOL 100 ML IV SCH ×4 (02:45→23:49)
[2017-02-05] MEDS: METOCLOPRAMIDE 10 MG INJ IV SCH ×4 (04:11→21:31)
[2017-02-05] MEDS: D5W-0.45 NACL + KCL 40 MEQ 1,000 ML IV SCH (05:34)
[2017-02-05] MEDS: metroNIDAZOLE 500 MG/NS (PMX) 100 ML IVPB SCH ×3 (05:35→21:31)
[2017-02-05] MEDS: VANCOMYCIN 1 GM in NS 250 ML IVPB SCH ×2 (05:36→17:58)
[2017-02-05] MEDS: PANTOPRAZOLE 40 MG INJ IV SCH (05:37)
[2017-02-05] MEDS: FUROSEMIDE 20 MG INJ IV SCH ×2 (05:37→17:57)
[2017-02-05 06:06] LABS: ADD SCAN DIFF NO
[2017-02-05 07:08] LABS: ALBUMIN 1.8 g/dl (3.3-4.9); ALBUMIN/GLOBULIN RATIO 0.66; BILIRUBIN,INDIRECT 0.2 mg/dl (0-1.1); BILIRUBIN,TOTAL 0.2 mg/dl (0.2-1.3); CALCIUM 6.4 mg/dl (8.4-10.2); CREATININE 0.96 mg/dl (0.61-1.24); POTASSIUM 4.4 mmol/L (3.5-5.1); TOTAL PROTEIN 4.5 g/dl (6.1-8.1)
[2017-02-05 07:09] LABS: CALCIUM 6.3 mg/dl (8.4-10.2); PHOSPHORUS 3.1 mg/dl (2.5-4.9)
[2017-02-05 07:13] LABS: INR 1.14; PROTIME 14.6 Sec (12.2-14.2); PT RATIO 1.1
[2017-02-05 07:14] LABS: PARTIAL THROMBOPLASTIN TIME 33.9 Sec (25.0-35.0)
--- NOTE | 2017-02-05 07:43 | RADRPT ---
PROCEDURE: XR Chest. CLINICAL INDICATION: pna chf TECHNIQUE: Single frontal view of the chest was obtained. COMPARISON: Chest x-ray and CT chest from 02/04/2017 FINDINGS: The endotracheal tube is unchanged in position. The heart and mediastinum are within normal limits. There are stable small bilateral pleural effusions with compressive bibasilar atelectasis. There are increased patchy opacities in the right mid to lower lung zone due to worsening infiltrate s and / or atelectasis. There is increased prominence of interstitial markings consistent with worse ciaran congestive changes. IMPRESSION: Increased congestive changes. Increased prominence of patchy opacities in the right mid to lower lung zone consistent with worseni ng infiltrates and / or atelectasis. Small bilateral pleural effusions. RPTAT: EE Physician Carlee Date Time Electronically viewed and signed by Physician Carlee on 02/05/2017 07:43 /
[2017-02-05 07:54] LABS: Allen Test ACCEPTAB; Arterial Base Excess 0.3 mmol/L (-3.0-3); Arterial COHb 0.4 % (0.0-3.0); Arterial Fraction of Oxyhgb 94.2 % (93.0-99.0); Arterial HCO3 22.3 mmol/L (22.0-26.0); Arterial MetHb 0.4 % (0.0-1.5); Arterial Total Hemglobin 9.4 g/dl (12.0-18.0); Blood Gas Low PEEP Setting 0 cmH2O; MODE VENT - AC
--- NOTE | 2017-02-05 08:46 | PN ---
Date/Time of Note Date/Time of Note DATE: 02/05/17 TIME: 08:38 Assessment/Plan VTE Prophylaxis VTE Prophylaxis Intervention: SCD's VTE Contraindication Reason: thrombocytopenia Lines/Catheters IV Catheter Type (from Nrsg): Peripheral IV Urinary Cath still in place: Yes Reason Cath still needed: other (indicate) Assessment/Plan Assessment/Plan IMPRESSION 1. Perforated sigmoid colon 2/2 Severe Crohn's colitis S/p Urgent Open Cronin's procedure with end colostomy, liver biopsy and abdominal lavage 02/01/17 2. Acute Resp failure / ARDS, Vent dependent 3. Chronic Crohn's disease with acute colitis and diarrhea: improved Cultures growing ecoli / proteus and enterococcus 4. Persistent hypocalcemia 5. Thrombocytopenia: ?HIT 6. SIRS with lactic acidosis 2/2 severe colitis: improved PLAN: * Today is post op day #4 * Continue vent mgt / gentle diuresis / ?steroids * Continue current ICU post op care and Mgt * Replace electrolytes as needed * Continue abx per ID/ appreciate review * PRN pain control/ antiemetics/ antipyretics/ supportive care * Monitor platelet count and await hematology recs * Patient now on low dose tube feeds. Colostomy seems to be functioning well CRITICAL CARE TIME: >35 mins Subjective 24 Hr Interval Summary Free Text/Dictation Intubated and sedated for comfort, but no pressor support. Subjective hx not possible: pt non-verbal, pt critical status Exam/Review of Systems Vital Signs Vitals Vital Signs Date Time Temp Pulse Resp B/P Pulse Ox O2 Delivery O2 Flow Rate FiO2 02/05/17 08:29 104 22 100 35 02/05/17 07:00 101/63 Mechanical Ventilator 02/05/17 04:00 99.0 02/01/17 16:30 3.0 Intake and Output 02/04/17 02/04/17 02/05/17 15:00 23:00 07:00 Intake Total 1083.130 ml 1501.6392 ml 1207.836 ml Output Total 760 ml 840 ml 1175 ml Balance 323.130 ml 661.6392 ml 32.836 ml Exam Constitutional: intubated. no distress on vent. lethargic, but opens eyes to verbal stimuli and attempts to follow commands, but he is weak Head: atraumatic, normocephalic Eyes: PERRL Respiratory: diminished breath sounds Cardiovascular: tachycardic with regular rhythm Gastrointestinal: Soft, Right sided colostomy with brownish/greenish stool. surgical site covered. Right sided draining tube in place Extremities: normal pulses Genitourinary - Male: other (scrotal edema ++ . abbott to bedside drainage) Results Result Diagram: 02/04/17 1340 02/05/17 0530 Results 24 hrs Laboratory Tests Test 02/04/17 13:40 02/05/17 05:30 02/05/17 07:00 Platelet Count 31 #L Prothrombin Time 14.1 14.6 H Prothrombin Time Ratio 1.1 1.1 INR International Normalized Ratio 1.09 1.14 Activated Partial Thromboplast Time 33.4 33.9 Thrombin Time 14.7 Fibrinogen 407.0 Plasma Fibrin Degradation Products <10 D-Dimer 6013.06 H D-Dimer Comment Sodium Level 142 Potassium Level 4.4 Chloride Level 112 H Carbon Dioxide Level 25 Anion Gap 9 # Blood Urea Nitrogen 18 Creatinine 0.96 Glucose Level 125 Calcium Level 6.4 L Phosphorus Level 3.1 Magnesium Level 2.0 Total Bilirubin 0.2 Direct Bilirubin 0.00 Indirect Bilirubin 0.2 Aspartate Amino Transf (AST/SGOT) 39 Alanine Aminotransferase (ALT/SGPT) 30 Alkaline Phosphatase 88 B-Type Natriuretic Peptide 4110 H Total Protein 4.5 L Albumin 1.8 L Globulin 2.70 Albumin/Globulin Ratio 0.66 Blood Gas Specimen Source Blood arterial Arterial Blood Date Drawn 02/05/2017 7:42:08 AM Arterial Blood pH (Temp corrected) 7.536 H Arterial Blood pCO2 (Temp correct) 26.9 L Arterial Blood pO2 (Temp corrected) 76.3 L Arterial Blood HCO3 22.3 Arterial Blood Base Excess 0.3 Arterial Blood Oxygen Saturation 95.0 Raffy Test ACCEPTAB Arterial Blood Gas Puncture Site Right Radial Arterial Blood Carboxyhemoglobin 0.4 Arterial Blood Methemoglobin 0.4 Blood Gas A-a O2 Differential 142.0 H Oxyhemoglobin Percent 94.2 Total Hemoglobin 9.4 L Blood Gas Temperature 37.0 Blood Gas Respiration Rate 12.0 Blood Gas Actual Respiration Rate 21 Blood Gas Modality VENT - AC FiO2 35.0 Blood Gas Tidal Volume 650.0 Blood Gas Low PEEP Setting 0 Blood Gas Notified Whom JLD Blood Gas Notified Time 02/05/2017 7:53:49 AM Medications Medications Current Medications Ondansetron HCl (Zofran Inj) 4 mg Q6H PRN IV NAUSEA AND/OR VOMITING; Start at 03:30 Metoclopramide HCl (Reglan) 10 mg Q6H IV Last administered on 02/05/17 04:11; Admin Dose 10 MG; Start 02/01/17 at 03:30 Hydromorphone HCl (Dilaudid) 1 mg Q4H PRN IV pain Last administered on 00:47; Admin Dose 1 MG; Start 02/01/17 at 03:30 Pantoprazole (Protonix Iv) 40 mg DAILY@06 IV Last administered on 02/05/17 05: 37; Admin Dose 40 MG; Start 02/01/17 at 06:00 Acetaminophen/ Hydrocodone Bitart ([place] (5/325)) 1 tab Q4H PRN PO PAIN LEVEL 4 -7; Start 02/01/17 at 20:30 Acetaminophen/ Hydrocodone Bitart ([place] (5/325)) 2 tab Q4H PRN PO PAIN LEVEL 7 -10; Start 02/01/17 at 20:30 Hydromorphone HCl (Dilaudid) 0.5 mg Q2 PRN IV PAIN; Start 02/01/17 at 20:30 Hydromorphone HCl (Dilaudid) 1 mg Q2 PRN IV PAIN Last administered on 11:57; Admin Dose 1 MG; Start 02/01/17 at 20:30 Docusate Sodium (Colace) 100 mg BID PRN PO CONSTIPATION; Start 02/01/17 at 20: 30 Bisacodyl (Dulcolax Supp) 10 mg BID PRN [place] CONSTIPATION; Start 02/01/17 at 20: 30 Sodium Biphosphate/ Sodium Phosphate (Fleet Enema) 133 ml BID PRN [place] CONSTIPATION; Start 02/01/17 at 20:30 Enoxaparin Sodium 40 mg 40 mg DAILY SC Last administered on 02/02/17 08:38; Admin Dose 40 MG; Start 02/02/17 at 09:00; Status Future Hold Propofol (Diprivan) 100 ml @ 2.202 mls/ hr Q12H IV Last administered on 02:45; Admin Dose 17.616 MLS/HR; Start 02/01/17 at 23:30 Ketorolac Tromethamine 30 mg 30 mg Q6H PRN IV PAIN; Start 02/02/17 at 09:30 Potassium Chloride/Dextrose/ Sod Cl 1,000 ml @ 125 mls/hr Q8H IV Last administered on 02/05/17 05:34; Admin Dose 125 MLS/HR; Start 02/03/17 at 16:30 Fentanyl 100 ml @ 2.5 mls/hr TITRATE IV Last administered on 02/04/17 21:12; Admin Dose 2.5 MLS/HR; Start 02/04/17 at 11:00 Levofloxacin/ Dextrose 150 ml @ 100 mls/hr Q24H IVPB Last administered on 02/04 16:31; Admin Dose 100 MLS/HR; Start 02/04/17 at 16:00 Metronidazole 100 ml @ 100 mls/hr Q8 IVPB Last administered on 02/05/17 05:35 ; Admin Dose 100 MLS/HR; Start 02/04/17 at 15:00 Vancomycin HCl 250 ml @ 125 mls/hr Q12H IVPB Last administered on 02/05/17 05 :36; Admin Dose 125 MLS/HR; Start 02/05/17 at 06:00 Calcium Gluconate/ Sodium Chloride (Ca Gluc/NS) 120 ml @ 60 mls/hr ONCE ONCE IVPB ; Start 02/05/17 at 09:00; Stop 02/05/17 at 10:59; Status VINCE YOU Feb 05, 2017 08:46
[2017-02-05 09:31] LABS: ABNORMAL IP MESSAGE 1; HEMATOCRIT 30.5 % (42.0-52.0); HEMOGLOBIN 9.7 g/dl (14.0-18.0); MEAN CORPUSCULAR HEMOGLOBIN 28.7 pg (29.0-33.0); MEAN CORPUSCULAR HGB CONC 31.8 g/dl (32.0-37.0); MEAN CORPUSCULAR VOLUME 90.2 fl (82.0-101.0); MEAN PLATELET VOLUME 12.5 fl (7.4-10.4); PLATELET COUNT 42 10^3/UL (140-415); RED BLOOD COUNT 3.38 10^6/ul (4.70-6.10); WHITE BLOOD COUNT 10.7 10^3/ul (4.8-10.8)
--- NOTE | 2017-02-05 09:50 | PN ---
Date/Time of Note Date/Time of Note DATE: 02/05/17 TIME: 09:44 Assessment/Plan VTE Prophylaxis VTE Prophylaxis Intervention: SCD's Lines/Catheters [facility] Peripheral IV Central line still needed: Yes Urinary Cath still in place: Yes Reason Cath still needed: urinary retention Assessment/Plan Assessment/Plan Perforated sigmoid colon * Laparoscopic exploration,open sigmoid colectomy with Deena end colostomy with liver biopsy segment V * Crohn's disease * Respiratory failure stable on ventilator * Plan * continue present management * CPAP trial * Will evaluate treatment for Crohn's once recovering Subjective 24 Hr Interval Summary Free Text/Dictation * Course reviewed with RN * patient seen and examined * patient on CPAP trial * tube feeding on hold while on CPAP trial Exam/Review of Systems Vital Signs Vitals Vital Signs Date Time Temp Pulse Resp B/P Pulse Ox O2 Delivery O2 Flow Rate FiO2 02/05/17 09:16 102 22 100 35 02/05/17 09:00 94/62 Mechanical Ventilator 02/05/17 08:00 97.8 02/01/17 16:30 3.0 Intake and Output 02/04/17 02/04/17 02/05/17 15:00 23:00 07:00 Intake Total 1083.130 ml 1501.6392 ml 1207.836 ml Output Total 760 ml 840 ml 1175 ml Balance 323.130 ml 661.6392 ml 32.836 ml Exam Constitutional: frail ENMT: intubated, other (ng tube in placed) Neck: supple Respiratory: diminished breath sounds, normal air movement, other (on ventilator) Cardiovascular: regular rate and rhythm Gastrointestinal: bowel sounds, non-tender, other (colostomy ), No rebound or guarding Musculoskeletal: nl extremities to inspection Results Result Diagram: 02/04/17 1340 02/05/17 0530 Results 24 hrs Laboratory Tests Test 02/04/17 13:40 02/05/17 05:30 02/05/17 07:00 Platelet Count 31 #L Prothrombin Time 14.1 14.6 H Prothrombin Time Ratio 1.1 1.1 INR International Normalized Ratio 1.09 1.14 Activated Partial Thromboplast Time 33.4 33.9 Thrombin Time 14.7 Fibrinogen 407.0 Plasma Fibrin Degradation Products <10 D-Dimer 6013.06 H D-Dimer Comment Sodium Level 142 Potassium Level 4.4 Chloride Level 112 H Carbon Dioxide Level 25 Anion Gap 9 # Blood Urea Nitrogen 18 Creatinine 0.96 Glucose Level 125 Calcium Level 6.4 L Phosphorus Level 3.1 Magnesium Level 2.0 Total Bilirubin 0.2 Direct Bilirubin 0.00 Indirect Bilirubin 0.2 Aspartate Amino Transf (AST/SGOT) 39 Alanine Aminotransferase (ALT/SGPT) 30 Alkaline Phosphatase 88 B-Type Natriuretic Peptide 4110 H Total Protein 4.5 L Albumin 1.8 L Globulin 2.70 Albumin/Globulin Ratio 0.66 Blood Gas Specimen Source Blood arterial Arterial Blood Date Drawn 02/05/2017 7:42:08 AM Arterial Blood pH (Temp corrected) 7.536 H Arterial Blood pCO2 (Temp correct) 26.9 L Arterial Blood pO2 (Temp corrected) 76.3 L Arterial Blood HCO3 22.3 Arterial Blood Base Excess 0.3 Arterial Blood Oxygen Saturation 95.0 Raffy Test ACCEPTAB Arterial Blood Gas Puncture Site Right Radial Arterial Blood Carboxyhemoglobin 0.4 Arterial Blood Methemoglobin 0.4 Blood Gas A-a O2 Differential 142.0 H Oxyhemoglobin Percent 94.2 Total Hemoglobin 9.4 L Blood Gas Temperature 37.0 Blood Gas Respiration Rate 12.0 Blood Gas Actual Respiration Rate 21 Blood Gas Modality VENT - AC FiO2 35.0 Blood Gas Tidal Volume 650.0 Blood Gas Low PEEP Setting 0 Blood Gas Notified Whom JLD Blood Gas Notified Time 02/05/2017 7:53:49 AM Medications Medications Current Medications Ondansetron HCl (Zofran Inj) 4 mg Q6H PRN IV NAUSEA AND/OR VOMITING; Start at 03:30 Metoclopramide HCl (Reglan) 10 mg Q6H IV Last administered on 02/05/17 09:02; Admin Dose 10 MG; Start 02/01/17 at 03:30 Hydromorphone HCl (Dilaudid) 1 mg Q4H PRN IV pain Last administered on 00:47; Admin Dose 1 MG; Start 02/01/17 at 03:30 Pantoprazole (Protonix Iv) 40 mg DAILY@06 IV Last administered on 02/05/17 05: 37; Admin Dose 40 MG; Start 02/01/17 at 06:00 Acetaminophen/ Hydrocodone Bitart ([place] (5/325)) 1 tab Q4H PRN PO PAIN LEVEL 4 -7; Start 02/01/17 at 20:30 Acetaminophen/ Hydrocodone Bitart ([place] (5/325)) 2 tab Q4H PRN PO PAIN LEVEL 7 -10; Start 02/01/17 at 20:30 Hydromorphone HCl (Dilaudid) 0.5 mg Q2 PRN IV PAIN; Start 02/01/17 at 20:30 Hydromorphone HCl (Dilaudid) 1 mg Q2 PRN IV PAIN Last administered on 11:57; Admin Dose 1 MG; Start 02/01/17 at 20:30 Docusate Sodium (Colace) 100 mg BID PRN PO CONSTIPATION; Start 02/01/17 at 20: 30 Bisacodyl (Dulcolax Supp) 10 mg BID PRN [place] CONSTIPATION; Start 02/01/17 at 20: 30 Sodium Biphosphate/ Sodium Phosphate (Fleet Enema) 133 ml BID PRN [place] CONSTIPATION; Start 02/01/17 at 20:30 Enoxaparin Sodium 40 mg 40 mg DAILY SC Last administered on 02/02/17 08:38; Admin Dose 40 MG; Start 02/02/17 at 09:00; Status Future Hold Propofol (Diprivan) 100 ml @ 2.202 mls/ hr Q12H IV Last administered on 09:06; Admin Dose 17.616 MLS/HR; Start 02/01/17 at 23:30 Ketorolac Tromethamine 30 mg 30 mg Q6H PRN IV PAIN; Start 02/02/17 at 09:30 Potassium Chloride/Dextrose/ Sod Cl 1,000 ml @ 125 mls/hr Q8H IV Last administered on 02/05/17 05:34; Admin Dose 125 MLS/HR; Start 02/03/17 at 16:30 Fentanyl 100 ml @ 2.5 mls/hr TITRATE IV Last administered on 02/04/17 21:12; Admin Dose 2.5 MLS/HR; Start 02/04/17 at 11:00 Levofloxacin/ Dextrose 150 ml @ 100 mls/hr Q24H IVPB Last administered on 02/04 16:31; Admin Dose 100 MLS/HR; Start 02/04/17 at 16:00 Metronidazole 100 ml @ 100 mls/hr Q8 IVPB Last administered on 02/05/17 05:35 ; Admin Dose 100 MLS/HR; Start 02/04/17 at 15:00 Vancomycin HCl 250 ml @ 125 mls/hr Q12H IVPB Last administered on 02/05/17 05 :36; Admin Dose 125 MLS/HR; Start 02/05/17 at 06:00 Calcium Gluconate/ Sodium Chloride (Ca Gluc/NS) 120 ml @ 60 mls/hr ONCE ONCE IVPB ; Start 02/05/17 at 10:00; Stop 02/05/17 at 11:59 SANDRA DAVIS MD Feb 05, 2017 09:50
[2017-02-05] MEDS ORDERED: CALCIUM GLUCONATE 10% 2 GM in SOD CHLORIDE 0.9% 100 ML IVPB ONE (10:00)
--- NOTE | 2017-02-05 10:24 | CONS ---
Date/Time of Note Date/Time of Note DATE: 02/05/17 TIME: 10:22 Consult Date/Type/Reason Admit Date/Time Feb 01, 2017 at 03:10 Type of Consultation: pulmonary ICU Ordering Provider: VINCE PADGETT Patient remains intubated sedated this morning. Patient failed prior CPAP trials. Currently hemodynamically stable Objective Vital Signs Date Time Temp Pulse Resp B/P Pulse Ox O2 Delivery O2 Flow Rate FiO2 02/05/17 09:16 102 22 100 35 02/05/17 09:00 94/62 Mechanical Ventilator 02/05/17 08:00 97.8 02/01/17 16:30 3.0 Intake and Output 02/04/17 02/04/17 02/05/17 15:00 23:00 07:00 Intake Total 1083.130 ml 1501.6392 ml 1207.836 ml Output Total 760 ml 840 ml 1175 ml Balance 323.130 ml 661.6392 ml 32.836 ml Exam PHYSICAL EXAMINATION GENERAL: Young gentleman on mechanical ventilation appears comfortable at rest VITAL SIGNS: see below. HEENT: Pupils equal, round, and reactive to light. CARDIAC: S1, S2, tachycardia. CHEST: Diminished air entry bilaterally. ABDOMEN: Mildly distended. No bowel sounds. EXTREMITIES: No cyanosis, clubbing or edema. NEUROLOGIC: No focal deficits. Results/Medications Result Diagram: 02/05/17 0530 02/05/17 [address] chest Bilateral pleural effusions with compressive atelectasis Laboratory Tests Test 02/04/17 13:40 02/05/17 05:30 02/05/17 07:00 Platelet Count 31 #L 42 #L Prothrombin Time 14.1 14.6 H Prothrombin Time Ratio 1.1 1.1 INR International Normalized Ratio 1.09 1.14 Activated Partial Thromboplast Time 33.4 33.9 Thrombin Time 14.7 Fibrinogen 407.0 Plasma Fibrin Degradation Products <10 D-Dimer 6013.06 H D-Dimer Comment White Blood Count 10.7 # Red Blood Count 3.38 L Hemoglobin 9.7 L Hematocrit 30.5 L Mean Corpuscular Volume 90.2 Mean Corpuscular Hemoglobin 28.7 L Mean Corpuscular Hemoglobin Concent 31.8 L Red Cell Distribution Width 16.0 H Mean Platelet Volume 12.5 H Neutrophils % Lymphocytes % Monocytes % Eosinophils % Neutrophils # Lymphocytes # Monocytes # Eosinophils # Sodium Level 142 Potassium Level 4.4 Chloride Level 112 H Carbon Dioxide Level 25 Anion Gap 9 # Blood Urea Nitrogen 18 Creatinine 0.96 Glucose Level 125 Calcium Level 6.4 L Phosphorus Level 3.1 Magnesium Level 2.0 Total Bilirubin 0.2 Direct Bilirubin 0.00 Indirect Bilirubin 0.2 Aspartate Amino Transf (AST/SGOT) 39 Alanine Aminotransferase (ALT/SGPT) 30 Alkaline Phosphatase 88 B-Type Natriuretic Peptide 4110 H Total Protein 4.5 L Albumin 1.8 L Globulin 2.70 Albumin/Globulin Ratio 0.66 Blood Gas Specimen Source Blood arterial Arterial Blood Date Drawn 02/05/2017 7:42:08 AM Arterial Blood pH (Temp corrected) 7.536 H Arterial Blood pCO2 (Temp correct) 26.9 L Arterial Blood pO2 (Temp corrected) 76.3 L Arterial Blood HCO3 22.3 Arterial Blood Base Excess 0.3 Arterial Blood Oxygen Saturation 95.0 Raffy Test ACCEPTAB Arterial Blood Gas Puncture Site Right Radial Arterial Blood Carboxyhemoglobin 0.4 Arterial Blood Methemoglobin 0.4 Blood Gas A-a O2 Differential 142.0 H Oxyhemoglobin Percent 94.2 Total Hemoglobin 9.4 L Blood Gas Temperature 37.0 Blood Gas Respiration Rate 12.0 Blood Gas Actual Respiration Rate 21 Blood Gas Modality VENT - AC FiO2 35.0 Blood Gas Tidal Volume 650.0 Blood Gas Low PEEP Setting 0 Blood Gas Notified Whom JLD Blood Gas Notified Time 02/05/2017 7:53:49 AM Medications Current Medications Ondansetron HCl (Zofran Inj) 4 mg Q6H PRN IV NAUSEA AND/OR VOMITING; Start at 03:30 Metoclopramide HCl (Reglan) 10 mg Q6H IV Last administered on 02/05/17 09:02; Admin Dose 10 MG; Start 02/01/17 at 03:30 Hydromorphone HCl (Dilaudid) 1 mg Q4H PRN IV pain Last administered on 00:47; Admin Dose 1 MG; Start 02/01/17 at 03:30 Pantoprazole (Protonix Iv) 40 mg DAILY@06 IV Last administered on 02/05/17 05: 37; Admin Dose 40 MG; Start 02/01/17 at 06:00 Acetaminophen/ Hydrocodone Bitart ([place] (5/325)) 1 tab Q4H PRN PO PAIN LEVEL 4 -7; Start 02/01/17 at 20:30 Acetaminophen/ Hydrocodone Bitart ([place] (5/325)) 2 tab Q4H PRN PO PAIN LEVEL 7 -10; Start 02/01/17 at 20:30 Hydromorphone HCl (Dilaudid) 0.5 mg Q2 PRN IV PAIN; Start 02/01/17 at 20:30 Hydromorphone HCl (Dilaudid) 1 mg Q2 PRN IV PAIN Last administered on 11:57; Admin Dose 1 MG; Start 02/01/17 at 20:30 Docusate Sodium (Colace) 100 mg BID PRN PO CONSTIPATION; Start 02/01/17 at 20: 30 Bisacodyl (Dulcolax Supp) 10 mg BID PRN [place] CONSTIPATION; Start 02/01/17 at 20: 30 Sodium Biphosphate/ Sodium Phosphate (Fleet Enema) 133 ml BID PRN [place] CONSTIPATION; Start 02/01/17 at 20:30 Enoxaparin Sodium 40 mg 40 mg DAILY SC Last administered on 02/02/17 08:38; Admin Dose 40 MG; Start 02/02/17 at 09:00; Status Future Hold Propofol (Diprivan) 100 ml @ 2.202 mls/ hr Q12H IV Last administered on 09:06; Admin Dose 17.616 MLS/HR; Start 02/01/17 at 23:30 Ketorolac Tromethamine 30 mg 30 mg Q6H PRN IV PAIN; Start 02/02/17 at 09:30 Fentanyl 100 ml @ 2.5 mls/hr TITRATE IV Last administered on 02/04/17 21:12; Admin Dose 2.5 MLS/HR; Start 02/04/17 at 11:00 Levofloxacin/ Dextrose 150 ml @ 100 mls/hr Q24H IVPB Last administered on 02/04 16:31; Admin Dose 100 MLS/HR; Start 02/04/17 at 16:00 Metronidazole 100 ml @ 100 mls/hr Q8 IVPB Last administered on 02/05/17 05:35 ; Admin Dose 100 MLS/HR; Start 02/04/17 at 15:00 Vancomycin HCl 250 ml @ 125 mls/hr Q12H IVPB Last administered on 02/05/17t 05 :36; Admin Dose 125 MLS/HR; Start 02/05/17 at 06:00 Calcium Gluconate/ Sodium Chloride (Ca Gluc/NS) 120 ml @ 60 mls/hr ONCE ONCE IVPB ; Start 02/05/17 at 10:00; Stop 02/05/17 at 11:59 Assessment/Plan Chief Complaint/Hosp Course Assessment 1. Crohn's disease with perforation of sigmoid colon and sepsis status post arthroscopic sigmoid colectomy and end colostomy with lysis of adhesions 2. Resolved metabolic acidosis with septic shock 3. Improved electrolyte imbalance 4. Hypoxemic respiratory failure possibly underlying pleural effusions with compressive atelectasis resulting in failure to wean from mechanical ventilation 5. Thrombocytopenia questionable DIC versus HIT Plan 1. Continue surgical care recommendations 2. Monitor electrolytes 3. Nasogastric tube to suction for surgery 4. CPAP weaning trial this morning this morning with decreased sedation 5. DVT and GI prophylaxis 6. Antibiotics per primary team 7. Consider hematology evaluation. HIT antibodies sent, DIC panel pending. Disposition Continue ICU care Discussed with nursing staff Critical care time 35 minutes Problems: RAMON DOUGLAS MD, [facility] Feb 05, 2017 10:24
--- NOTE | 2017-02-05 10:44 | PN ---
Date/Time of Note Date/Time of Note DATE: 02/05/17 TIME: 10:41 Assessment/Plan Lines/Catheters IV Catheter Type (from Nrs): Peripheral IV Zeng in Place (from Nrs): Yes Assessment/Plan Assessment/Plan [facility] Progress Note Date of Service: 02/05/17 Today's Impression & Plan: Overall stable and improving. Failed weaning trial again. No obvious major post operative complication. No major wound problems. Updated patient's father over the phone ([phone]). With above assessment, I've recommended the following for today: 1. Wean to extubate 2. D/c NG once extubated 3. Clear liquid diet and advance to regular after above; for now, cont gastric feeds through NG 4. Dilaudid [employer] once extubated and unrestrained 5. Consider further diuresis 6. Labs in am 7. Increase activity 8. Increase ICS 9. Keep in ICU 10. F/u with cardiology consultation (much appreciate Dr. Gandhi's excellent care) with consideration for echo 11. Agree with holding anticoagulation while thrombocytopenic 12. Appreciate ID (Dr. Solares) and rest of the excellent medical input regarding management of broad spec antimicrobials in the setting of thrombocytopenia Thank you again for your great care of this very pleasant patient and wonderful family. If there are any questions, please feel free to call me at [phone]. TOTAL VISIT TIME: 20 minutes of which more than half was spent in [id number] discussion with the patient, possibly including family, as well as coordination of care between multiple physicians and providers. Disclaimer: Inadvertent spelling or grammatical errors are likely due to EHR/ dictation software use and do not reflect on the overall quality of patient care. Updated Clinical Summary: a very pleasant 46-year-old gentleman with history of Crohn's disease as well as prior surgery for anal fistula approximately 5 years ago, and a torn meniscus repair on the left knee, presenting with abdominal pain associated with a few weeks' duration of diarrhea. S/p an otherwise uncomplicated diagnostic laparoscopy was converted first to hand assist and then to open exploration when perforated sigmoid colon was found and it was resected with a Deena type procedure and end colostomy as well as core needle liver biopsy, segment 5, due to presence of fatty liver disease, lysis of adhesions, and abdominal lavage on 02/01/17. COMORBIDITIES: 1. Crohn disease with perforation of sigmoid colon and sepsis. S/p an otherwise uncomplicated diagnostic laparoscopy was converted first to hand assist and then to open exploration when perforated sigmoid colon was found and it was resected with a Deena type procedure and end colostomy as well as core needle liver biopsy, segment 5, due to presence of fatty liver disease, lysis of adhesions, and abdominal lavage on 02/01/17. 2. Repair of a fistula approximately 5 years ago. 3. Torn meniscus on the left knee status post repair. Subjective: No major events or complaints overnight; remains intubated and failed weaning trial again; no abd pain and under control with medications; no n/v/d; no sob or cp; + flatus; + BM; + activity Objective: Vitals: See below Exam: GENERAL: On exam, the patient was laying in bed and appeared to be comfortable and in no acute distress. ABDOMEN: Soft, nontender and nondistended. Incision dressings are clean, dry and intact without any evidence of obvious underlying erythema, edema, discharge , or hernia. Surgery drain ss. Ostomy pink and viable; some air and stool in the bag. There are no peritoneal signs or guarding. SKIN: Skin appears to be pink and feels warm to touch. NEUROLOGIC: Patient is arousable, alert, and follows commands appropriately. Exam/Review of Systems Vital Signs Vitals Vital Signs Date Time Temp Pulse Resp B/P Pulse Ox O2 Delivery O2 Flow Rate FiO2 02/05/17 09:16 102 22 100 35 02/05/17 09:00 94/62 Mechanical Ventilator 02/05/17 08:00 97.8 02/01/17 16:30 3.0 Intake and Output 02/04/17 02/04/17 02/05/17 15:00 23:00 07:00 Intake Total 1083.130 ml 1501.6392 ml 1207.836 ml Output Total 760 ml 840 ml 1175 ml Balance 323.130 ml 661.6392 ml 32.836 ml Results Result Diagram: 02/05/17 0530 02/05/17 0530 TI HILTON M.D. Feb 05, 2017 10:44
--- NOTE | 2017-02-05 11:29 | CONS ---
Date/Time of Note Date/Time of Note DATE: 02/05/17 TIME: 11:26 Assessment/Plan Assessment/Plan Additional Assessment/Plan Perforated colon status post surgery Severe sepsis Respiratory failure Volume overload Crohn's disease Thrombocytopenia -Patient started on IV gentle diuresis with increased urine output. Would continue diuretics as blood pressure and renal function permits. If no contraindication, would titrate off IV fluids. Echocardiogram pending. Consultation Date/Type/Reason Admit Date/Time Feb 01, 2017 at 03:10 Initial Consult Date 02/02/17 Type of Consultation: cv Referring Provider: VINCE PADGETT 24 HR Interval Summary Free Text/Dictation Patient seen and examined. Denies current chest pain or shortness of breath Exam/Review of Systems Vital Signs Vitals Vital Signs Date Time Temp Pulse Resp B/P Pulse Ox O2 Delivery O2 Flow Rate FiO2 02/05/17 11:07 105 23 99 35 02/05/17 09:00 94/62 Mechanical Ventilator 02/05/17 08:00 97.8 02/01/17 16:30 3.0 Intake and Output 02/04/17 02/04/17 02/05/17 15:00 23:00 07:00 Intake Total 1083.130 ml 1501.6392 ml 1207.836 ml Output Total 760 ml 840 ml 1175 ml Balance 323.130 ml 661.6392 ml 32.836 ml Exam Awake, follows commands, nods his head to questions, no apparent distress Head: normocephalic ENMT: intubated Respiratory: other (Coarse breath sounds bilaterally, no wheezing) Cardiovascular: other (S1-S2 heard), regular rate and rhythm Gastrointestinal: bowel sounds, other (Bandages on abdomen), soft Extremities: edema Results Result Diagram: 02/05/17 0530 02/05/17 0530 Results 24 hrs Laboratory Tests Test 02/04/17 13:40 02/05/17 05:30 02/05/17 07:00 Platelet Count 31 #L 42 #L Prothrombin Time 14.1 14.6 H Prothrombin Time Ratio 1.1 1.1 INR International Normalized Ratio 1.09 1.14 Activated Partial Thromboplast Time 33.4 33.9 Thrombin Time 14.7 Fibrinogen 407.0 Plasma Fibrin Degradation Products <10 D-Dimer 6013.06 H D-Dimer Comment White Blood Count 10.7 # Red Blood Count 3.38 L Hemoglobin 9.7 L Hematocrit 30.5 L Mean Corpuscular Volume 90.2 Mean Corpuscular Hemoglobin 28.7 L Mean Corpuscular Hemoglobin Concent 31.8 L Red Cell Distribution Width 16.0 H Mean Platelet Volume 12.5 H Neutrophils % Lymphocytes % Monocytes % Eosinophils % Neutrophils # Lymphocytes # Monocytes # Eosinophils # Sodium Level 142 Potassium Level 4.4 Chloride Level 112 H Carbon Dioxide Level 25 Anion Gap 9 # Blood Urea Nitrogen 18 Creatinine 0.96 Glucose Level 125 Calcium Level 6.4 L Phosphorus Level 3.1 Magnesium Level 2.0 Total Bilirubin 0.2 Direct Bilirubin 0.00 Indirect Bilirubin 0.2 Aspartate Amino Transf (AST/SGOT) 39 Alanine Aminotransferase (ALT/SGPT) 30 Alkaline Phosphatase 88 B-Type Natriuretic Peptide 4110 H Total Protein 4.5 L Albumin 1.8 L Globulin 2.70 Albumin/Globulin Ratio 0.66 Blood Gas Specimen Source Blood arterial Arterial Blood Date Drawn 02/05/2017 7:42:08 AM Arterial Blood pH (Temp corrected) 7.536 H Arterial Blood pCO2 (Temp correct) 26.9 L Arterial Blood pO2 (Temp corrected) 76.3 L Arterial Blood HCO3 22.3 Arterial Blood Base Excess 0.3 Arterial Blood Oxygen Saturation 95.0 Raffy Test ACCEPTAB Arterial Blood Gas Puncture Site Right Radial Arterial Blood Carboxyhemoglobin 0.4 Arterial Blood Methemoglobin 0.4 Blood Gas A-a O2 Differential 142.0 H Oxyhemoglobin Percent 94.2 Total Hemoglobin 9.4 L Blood Gas Temperature 37.0 Blood Gas Respiration Rate 12.0 Blood Gas Actual Respiration Rate 21 Blood Gas Modality VENT - AC FiO2 35.0 Blood Gas Tidal Volume 650.0 Blood Gas Low PEEP Setting 0 Blood Gas Notified Whom JLD Blood Gas Notified Time 02/05/2017 7:53:49 AM Medications Medications Current Medications Ondansetron HCl (Zofran Inj) 4 mg Q6H PRN IV NAUSEA AND/OR VOMITING; Start at 03:30 Metoclopramide HCl (Reglan) 10 mg Q6H IV Last administered on 02/05/17 09:02; Admin Dose 10 MG; Start 02/01/17 at 03:30 Hydromorphone HCl (Dilaudid) 1 mg Q4H PRN IV pain Last administered on 00:47; Admin Dose 1 MG; Start 02/01/17 at 03:30 Pantoprazole (Protonix Iv) 40 mg DAILY@06 IV Last administered on 02/05/17 05: 37; Admin Dose 40 MG; Start 02/01/17 at 06:00 Acetaminophen/ Hydrocodone Bitart ([place] (5/325)) 1 tab Q4H PRN PO PAIN LEVEL 4 -7; Start 02/01/17 at 20:30 Acetaminophen/ Hydrocodone Bitart ([place] (5/325)) 2 tab Q4H PRN PO PAIN LEVEL 7 -10; Start 02/01/17 at 20:30 Hydromorphone HCl (Dilaudid) 0.5 mg Q2 PRN IV PAIN; Start 02/01/17 at 20:30 Hydromorphone HCl (Dilaudid) 1 mg Q2 PRN IV PAIN Last administered on 11:57; Admin Dose 1 MG; Start 02/01/17 at 20:30 Docusate Sodium (Colace) 100 mg BID PRN PO CONSTIPATION; Start 02/01/17 at 20: 30 Bisacodyl (Dulcolax Supp) 10 mg BID PRN [place] CONSTIPATION; Start 02/01/17 at 20: 30 Sodium Biphosphate/ Sodium Phosphate (Fleet Enema) 133 ml BID PRN [place] CONSTIPATION; Start 02/01/17 at 20:30 Enoxaparin Sodium 40 mg 40 mg DAILY SC Last administered on 02/02/17 08:38; Admin Dose 40 MG; Start 02/02/17 at 09:00; Status Future Hold Propofol (Diprivan) 100 ml @ 2.202 mls/ hr Q12H IV Last administered on 09:06; Admin Dose 17.616 MLS/HR; Start 02/01/17 at 23:30 Ketorolac Tromethamine 30 mg 30 mg Q6H PRN IV PAIN; Start 02/02/17 at 09:30 Fentanyl 100 ml @ 2.5 mls/hr TITRATE IV Last administered on 02/04/17 21:12; Admin Dose 2.5 MLS/HR; Start 02/04/17 at 11:00 Levofloxacin/ Dextrose 150 ml @ 100 mls/hr Q24H IVPB Last administered on 4/20 /17at 16:31; Admin Dose 100 MLS/HR; Start 02/04/17 at 16:00 Metronidazole 100 ml @ 100 mls/hr Q8 IVPB Last administered on 02/05/17 05:35 ; Admin Dose 100 MLS/HR; Start 02/04/17 at 15:00 Vancomycin HCl 250 ml @ 125 mls/hr Q12H IVPB Last administered on 02/05/17 05 :36; Admin Dose 125 MLS/HR; Start 02/05/17 at 06:00 Calcium Gluconate/ Sodium Chloride (Ca Gluc/NS) 120 ml @ 60 mls/hr ONCE ONCE IVPB Last administered on 02/05/17 11:26; Admin Dose 60 MLS/HR; Start at 10:00; Stop 02/05/17 at 11:59 Keith Gandhi DO Feb 05, 2017 11:29
--- NOTE | 2017-02-05 11:54 | CONS ---
DATE OF ADMISSION: 02/01/2017 DATE OF CONSULTATION: 02/05/2017 PHYSICIAN REQUESTING CONSULTATION: Dr. Johnson. REASON FOR CONSULTATION: Thrombocytopenia. Dear Dr. Johnson: Thank you very much for asking me to see this very pleasant gentleman in hematologic consultation. As you know, Mr. Frye is a 46-year-old male who was admitted to [facility] on 02/01/2017. At that time, the patient had presented to the emergency room with complaints of abdominal pain. The patient had been experiencing some complaints of diarrhea for 1 or 2 weeks prior to admission. The patient also had recent onset of abdominal pain, as well as nausea and vomiting. The patient then came to the emergency room. The patient was hypotensive and tachycardic. He did have a CT scan of the abdomen and pelvis, which demonstrated changes felt to be consistent with Crohn' s disease or with inflammatory bowel disease. The patient also did have a pneumoperitoneum. The patient was seen in consultation by Dr. Ahmet Kuo in surgical evaluation. The patient was then taken to the OR on 02/01/2017. He underwent a laparoscopic exploration, which was converted to an open procedure. The patient underwent a sigmoid colectomy for a perforation of the sigmoid colon and a Deena procedure with end colostomy. Cultures taken of abdominal fluid did demonstrate 3+ E. coli, 2+ Proteus mirabilis, and Enterococcus species. On presentation to the emergency room, the patient had a white count of 6500, hemoglobin 14.3, hematocrit 41.2, and platelet count 272,000. At that time, the patient had a sodium of 127, potassium 2.2, BUN 15, creatinine 1.2. Lactic acid was 6.8. Total bilirubin 0.7, AST 59, ALT 18, alkaline phosphatase 131. On 02/01/2017, postoperatively, the patient's platelet count was 110,000; on , it was 91,000; on 02/03/2017, 49,000; on 02/04/2017, it had dropped to 29,000. Today, the patient's white count is 10,700, hemoglobin 9.7, hematocrit 30.5, and platelet count is 42,000. Pro time today is 41.6 seconds, INR is 1.14, and PTT is 33.9 seconds. Yesterday , fibrinogen was 407. Fibrin degradation products were less than 10, and D- dimer was 6013. Today, the patient's BUN is 18, creatinine 0.96, calcium is 6.4, albumin only 8.1. The patient is presently on vancomycin and levofloxacin, as well as metronidazole. He did receive Zosyn on 02/03/2017 and 02/04/2017; this has been discontinued. The patient also received enoxaparin 40 mg 1 time, 1 dose on 02/02/2017. The patient, unfortunately, is intubated at this time and on a ventilator. He remains sedated with propofol. Therefore, most of the information concerning the patient's presentation and past history has been obtained from the old chart. The patient does have a known history of Crohn's disease. He states apparently this had been diagnosed approximately 4 years ago. It is not clear how the patient has been treated and if in fact he has had any recent colonoscopic examinations. There is apparently a history of an anal fistula in the past. Other surgeries include some type of a knee surgery. No known history of hypertension, heart disease, diabetes, renal or hepatic disease. The patient has no known exposures to industrial toxins or ionizing radiation. He previously was a smoker, but has noted that he has not smoked now in 1 month. FAMILY HISTORY: Apparently includes the fact that his father had thyroid carcinoma. PHYSICAL EXAMINATION GENERAL: At this time reveals a well-developed male. As noted, the patient is sedated with propofol. VITAL SIGNS: Temperature is 98.7 axillary, pulse 102, respirations 20, blood pressure 94/62, pulse oximetry is 100% on FiO2 of 35. The patient is on mechanical ventilator. SKIN: No ecchymosis or petechia. There is, however, erythema, which blanches and warms to the touch in both flanks. There is no subcutaneous crepitance noted. There is tattoo present. HEAD, EARS, EYES, NOSE, AND THROAT: Normocephalic. No evidence of trauma. There is an NG tube in place. The patient has an endotracheal tube. NECK: Supple. No jugular venous distention or thyroid enlargement. CHEST: No rhonchi, wheezes, rales, or rubs. HEART: Sinus tachycardia. No S3, S4, or murmurs. No rubs. BREASTS: No gynecomastia. NODES: No palpable lymphadenopathy in the lymph node-bearing area. ABDOMEN: Distended. There is a midline surgical incision, which is covered with dressing. There is a stoma in the left lower quadrant that is putting out a dark liquid. EXTREMITIES: No clubbing. No edema or cyanosis. No palpable cords or Homans' sign. LABORATORY DATA: The peripheral smear has been reviewed. Red blood cell morphology is normal, except for some mild increased rouleaux formation. There are no fragmented red blood cells and no spherocytes. The white blood cells are slightly increased in number and some increased bands. There is definite toxic granulation and Dohle bodies present. There are no immature neutrophils, no hypersegmented polys, and no nucleated red blood cells. Lymphocytes appear normal in number and morphology. The platelets are moderately decreased, with large platelet forms seen. DISCUSSION: The patient is a 46-year-old gentleman who presented with a perforation of the sigmoid colon with resulting peritonitis. The patient has developed thrombocytopenia, which began almost immediately postoperatively. Surgery was on 02/01 and platelet count was dropping within the immediate postoperative period. The patient does not have any evidence of a consumptive coagulopathy, such as DIC, TTP, or hemolytic uremic syndrome. The patient has received agents which may be associated with thrombocytopenia, including enoxaparin and Zosyn. It should be noted, however, that thrombocytopenia started before introduction of either of these agents. As noted, I do not feel this patient has DIC. The elevated D-dimer is due to the postoperative state and I do not feel related to either a thrombotic episode or DIC. As noted, review of the peripheral smear does show some bands, but also definite toxic granulation and Dohle bodies, suggesting an infection. I am concerned by the erythema noted in the patient's flanks. The patient does have an increased MPV, which suggests that there is the production of young platelets. Also, as noted, the patient's platelet count has increased from 29,000 to 42,000 in the past 24 hours. There was a mention that the patient had received platelet transfusions; however, this does not appear to be the case. I have contacted the blood bank, and they have not released any platelets to this patient nor had any order for platelets. We will obtain a platelet antibody panel now, as well as heparin-induced platelet antibodies. We will also recheck fibrinogen. I do not feel the patient requires platelet transfusion at this time, but should be monitored closely. It is likely that the patient's platelets will recover with treatment of any infectious process. Dictated By: FEDERICO SAHA MD, SR/YAN Conf#: [id number] DID#: [id number]
[2017-02-05 13:46] LABS: PLATELET ESTIMATE PLT APPEAR DECREASED; TOXIC GRANULATION OCCASIONAL
[2017-02-05 13:47] LABS: LYMPHOCYTES # 0.3 10^3/ul (0.8-2.9); MONOCYTE # 0.1 10^3/ul (0.3-0.9); MYELOCYTES # 0.2; NEUTROPHIL # 8.2 10^3/ul (1.6-7.5); POLYCHROMASIA RARE
--- NOTE | 2017-02-05 13:55 | RADRPT ---
Echocardiogram Report Patient Name: ENIO MARROQUIN Gender: Male Date: 1970 Study Date: 05-Feb-2017 Building Maintenance Repairer: Gwendolyn Shaver ASHU Location: [facility] Ref. Physician: KEITH GANDHI Quality: Adequate Procedures: Transthoracic echocardiogram with complete 2D, M-Mode, and doppler examination. Indications: resp failure. 2D/M Mode Doppler Measurement Value Normal Ranges Measurement Value Normal Ranges LVIDd 2D 5.2 3.5 - 5.6 cm AV Peak Adilson 1.4 m/sec LVIDs 2D 3.9 2.1 - 4.1 cm AV Peak PG 7.5 mmHg LVPWd 2D 0.8 0.6 - 1.1 cm LVOT Peak Adilson 1.1 m/sec IVSd 2D 0.8 0.6 - 1.1 cm LVOT Peak PG 4.7 mmHg AoR Diam 2D 2.9 2.0 - 3.7 cm MV E Peak Adilson 0.8 m/sec EDV 2D 128.9 cm3 MV A Peak Adilson 0.6 m/sec ESV 2D 57.4 cm3 MV E/A 1.5 LA Dimen 2D 3.2 2.3 - 4.0 cm MV Decel Time 100 msec MV Decel Coke 8 MV E/A 1.5 TR Peak Adilson 2.6 m/sec TR Peak PG 26.1 mmHg RVSP 34.0 mmHg Findings Left Ventricle: Lower limits of normal systolic function. Normal left ventricular cavity size. Normal left ventricular wall thickness. Ejection fraction is visually estimated at 50 %. Right Ventricle: Normal right ventricular systolic function. Mild enlargement of right ventricle. Left Atrium: The left atrium is normal in size. Right Atrium: There is mild enlargement of right atrium. Mitral Valve: Mitral valve leaflets appear mildly thickened. Mild mitral annular calcification. Trace mitral regurgitation. Aortic Valve: Normal appearance of the aortic valve. No significant aortic stenosis or insufficiency. Tricuspid Valve: Normal appearance of the tricuspid valve. Estimated peak PA systolic pressure 34 mmHg. There is trace tricuspid regurgitation. Pulmonic Valve: Pulmonic valve not well visualized. Pericardium: Left pleural effusion seen. Aorta: Normal aortic root. IVC: Inferior vena cava without respiratory collapse, however, patient on ventilator. Conclusions 1.Lower limits of normal systolic function. Normal left ventricular cavity size. Normal left ventricular wall thickness. Ejection fraction is visually estimated at 50 %. 2.Normal right ventricular systolic function. Mild enlargement of right ventricle. 3.The left atrium is normal in size. 4.There is mild enlargement of right atrium. 5.No significant valvular stenosis or regurgitation seen. 6.Left pleural effusion seen. Electronically Signed By: Keith Gandhi 05-Feb-2017 13:54:20 -0700 Patient Name: ENIO MARROQUIN Study Date: 05-Feb-2017 [id number]
--- NOTE | 2017-02-05 17:43 | PN ---
DATE: 02/05/2017 SUBJECTIVE: The patient is lying comfortably in bed. Afebrile. He tolerates tube feeding at 20 mL/hour. WBC today increased to 10.7, platelets 42, neutrophils 77, bands 13, lymphs 3, monos 1. BUN 18, creatinine 0.96 and tones. MICROBIOLOGY: Abdominal fluid culture growing Proteus mirabilis, E. coli, enterococcus species and strep. INDWELLINGS: Endotracheal tube, NG tube, STEVE, Zeng catheter. ANTIMICROBIALS: The patient is on: 1. Vancomycin. 2. Levaquin. 3. Flagyl. PHYSICAL EXAMINATION: GENERAL: Well-developed, well-nourished, middle-aged man who is lying comfortably in bed. HEENT: Head atraumatic, normocephalic. Sclerae anicteric. Buccal mucosa dry. NECK: Supple, trachea midline. CHEST: Rise symmetrical. Breath sounds diminished to bases. HEART: S1, S2. ABDOMEN: Distended, bowel tones hypoactive. EXTREMITIES: Without cyanosis. ASSESSMENT: 1. Sepsis, status post perforated viscus repair. 2. Postoperative respiratory failure. 3. Anemia with persistent thrombocytopenia, rule out heparin-induced thrombocytopenia versus other etiologies, possibly secondary to sepsis and antibiotics. Zosyn was changed to Levaquin. 4. History of Crohn's disease. 5. Status post acute renal failure. PLAN: The patient remains stable. We will continue him on current antimicrobials. Follow recommendations of consultants. The patient had a chest x-ray this morning that revealed increased infiltrate concerning for pneumonia. We are going to change Levaquin to meropenem. Dictated By: THOMAS ELLIS MECHANICAL SERVICE TECHNICIAN for MICKY RAMÍREZ/YAN Conf#: [id number] DID#: [id number] MTDD
[2017-02-05] MEDS: ACETAMINOPHEN 650MG/20.3ML CUP GTB PRN (19:46)
[2017-02-05] MEDS: MEROPENEM 500 MG/100 ML (PMX) 100 ML IVPB SCH (21:31)
[2017-02-05] MEDS: FENTAnyl (DRIP) 1000 mcg/100mL 100 ML IV SCH (21:43)
[2017-02-06] VITALS (66 sets, daily range): BP systolic 76–113; BP diastolic 49–81; PULSE 91–108; RESP 0–28
[2017-02-06] MEDS: METOCLOPRAMIDE 10 MG INJ IV SCH ×4 (03:40→21:14)
[2017-02-06 04:52] LABS: ADD UMIC NO; URINE BILIRUBIN (Dip) NEGATIVE (NEGATIVE); URINE BLOOD (Dip) NEGATIVE (NEGATIVE); URINE COLOR LT. YELLOW (YELLOW); URINE GLUCOSE (Dip) NEGATIVE (NEGATIVE); URINE KETONES (Dip) NEGATIVE (NEGATIVE); URINE LEUKOCYTE ESTERASE (Dip) NEGATIVE (NEGATIVE); URINE NITRITE (Dip) NEGATIVE (NEGATIVE); URINE TOTAL PROTEIN (Dip) NEGATIVE (NEGATIVE); URINE UROBILINOGEN (Dip) 0.2 E.U./dL (0.1-1.0)
[2017-02-06] MEDS: ACETAMINOPHEN 650MG/20.3ML CUP GTB PRN (05:06)
[2017-02-06] MEDS: PANTOPRAZOLE 40 MG INJ IV SCH (05:06)
[2017-02-06] MEDS: FUROSEMIDE 20 MG INJ IV SCH (05:07)
[2017-02-06] MEDS: metroNIDAZOLE 500 MG/NS (PMX) 100 ML IVPB SCH ×3 (05:07→21:14)
[2017-02-06] MEDS: PROPOFOL 100 ML IV SCH ×3 (05:12→15:52)
[2017-02-06] MEDS: MEROPENEM 500 MG/100 ML (PMX) 100 ML IVPB SCH ×3 (05:18→21:14)
[2017-02-06 05:39] LABS: ALBUMIN 1.6 g/dl (3.3-4.9)
[2017-02-06 05:40] LABS: POTASSIUM 3.4 mmol/L (3.5-5.1)
[2017-02-06 05:42] LABS: BILIRUBIN,INDIRECT 0.2 mg/dl (0-1.1); BILIRUBIN,TOTAL 0.2 mg/dl (0.2-1.3); CREATININE 0.95 mg/dl (0.61-1.24); TOTAL PROTEIN 4.2 g/dl (6.1-8.1)
[2017-02-06 05:43] LABS: CALCIUM 6.8 mg/dl (8.4-10.2); MAGNESIUM 1.7 mg/dl (1.7-2.5); PHOSPHORUS 4.1 mg/dl (2.5-4.9)
[2017-02-06] MEDS: VANCOMYCIN 1 GM in NS 250 ML IVPB SCH ×2 (06:29→17:59)
[2017-02-06] MEDS ORDERED: NORepinephrine 8MG/250 ML (PMX 250 ML ONE (07:37)
[2017-02-06 08:11] LABS: ADD SCAN DIFF NO
[2017-02-06 08:18] LABS: ABNORMAL IP MESSAGE 1; HEMATOCRIT 25.7 % (42.0-52.0); HEMOGLOBIN 8.4 g/dl (14.0-18.0); MEAN CORPUSCULAR HEMOGLOBIN 29.2 pg (29.0-33.0); MEAN CORPUSCULAR HGB CONC 32.7 g/dl (32.0-37.0); MEAN CORPUSCULAR VOLUME 89.2 fl (82.0-101.0); MEAN PLATELET VOLUME 14.1 fl (7.4-10.4); PLATELET COUNT 78 10^3/UL (140-415); RED BLOOD COUNT 2.88 10^6/ul (4.70-6.10); RED CELL DISTRIBUTION WIDTH 15.5 % (11.5-14.5); WHITE BLOOD COUNT 12.4 10^3/ul (4.8-10.8)
[2017-02-06] MEDS ORDERED: SOD CHLORIDE 0.9% 1,000 ML IV SCH (08:30)
[2017-02-06] MEDS ORDERED: NORepinephrine 8MG/250 ML (PMX 250 ML IV SCH (08:30)
[2017-02-06] MEDS ORDERED: SOD CHLORIDE 0.9% 500 ML IV ONE (08:30)
--- NOTE | 2017-02-06 08:40 | CONS ---
Date/Time of Note Date/Time of Note DATE: 02/06/17 TIME: 08:39 Assessment/Plan Assessment/Plan Chief Complaint/Hosp Course ID PROGRESS NOTE TOTAL ABX DAY #7 => Vanco IV, Levaquin, Flagyl S/P Zosyn 24H INTERVAL SUMMARY * Mildly sedated on Propofol, ETT secure to Vent, opens eyes, sinus tach 111, Tc 100.0, WBC up today * Chart reviewed: Abdominal fluid culture growing Proteus mirabilis, E. coli, enterococcus species and strep * CXR 02/06/17: IMPRESSION: * 1. Findings suggestive of pulmonary vascular congestion with small bilateral pleural effusions. Lung aeration is significantly improved when compared to the prior examination. 2. Tubes and lines, as described above. 02/06/17 0445 02/06/17 0445 MICRO: BODY FLUID CULTURE Final Organism 1 ESCHERICHIA COLI QUANTITY 3+ Organism 2 PROTEUS MIRABILIS QUANTITY 2+ Organism 3 ENTEROCOCCUS SPECIES QUANTITY ISOLATED FROM BROTH ONLY Organism 4 STREP GRP D NOT ENTEROCOCCUS QUANTITY ISOLATED FROM BROTH ONLY E COLI P. MIRAB ENT SPS M.I.C. RX M.I.C. RX M.I.C. RX --------- --- --------- --- --------- --- AMPICILLIN 4 S <=2 S <=2 S CEFAZOLIN S CEFOTAXIME S S CIPROFLOXACIN <=0.25 S <=0.25 S GENTAMICIN <=1 S <=1 S LEVOFLOXACIN <=0.12 S <=0.12 S PENICILLIN-G 0.5 S VANCOMYCIN 2 S TOBRAMYCIN <=1 S <=1 S TRIMETHOPRIM/SULFAMETHOXAZOLE <=20 S <=20 S STR GRP D Zone Size RX --------- --- * AMPICILLIN S * CEFAZOLIN S * CEFOTAXIME S * CEFUROXIME S * CIPROFLOXACIN S * CLINDAMYCIN S * ERYTHROMYCIN R * PENICILLIN S * VANCOMYCIN S PHYSICAL EXAMINATION: GENERAL: VSS, NAD HEENT: Unremarkable NECK: Supple, trach-> midline CHEST: Equal chest rise bilaterally, without dyspnea on observation HEART: Pulse RRR ABDOMEN: EXTREMITIES: Warm SKIN: Warm, dry ID ASSESSMENT: 46 yo M w/PMHx Crohn's disease admitted with: 1. Sepsis, status post perforated viscus repair. * MICRO: Abdominal fluid culture growing Proteus mirabilis, E. coli, enterococcus species and strep 2. Postoperative respiratory failure. 3. HCAP w/infiltrate developing on CXR 02/05/17 4. Anemia with persistent thrombocytopenia, possibly secondary to sepsis and antibiotics. Zosyn was changed to Levaquin. * rule out heparin-induced thrombocytopenia versus other etiologies, 6. Status post acute renal failure. (-)MRSA Nares INVASIVES: * Endotracheal tube, NG tube, STEVE, Zeng catheter. ABX ALLERGIES: KNDA CURRENT ABX: TOTAL ABX DAY #7 => Vanco IV, Levaquin, Flagyl S/P Zosyn ID RECOMMENDATIONS: 1. Continue current ABX over the weekend and monitor clinical status 2. Send sputum for C&S if not in process . Problems: Consultation Date/Type/Reason Admit Date/Time Feb 01, 2017 at 03:10 Initial Consult Date 02/02/17 Type of Consultation: ID Referring Provider: VINCE PADGETT Exam/Review of Systems Vital Signs Vitals Vital Signs Date Time Temp Pulse Resp B/P Pulse Ox O2 Delivery O2 Flow Rate FiO2 02/06/17 08:00 100.0 96 18 76/59 96 Mechanical Ventilator 02/06/17 05:30 35 Intake and Output 02/05/17 02/05/17 02/06/17 14:59 22:59 06:59 Intake Total 895 ml 875.12 ml 413.58 ml Output Total 860 ml 2305 ml 3385 ml Balance 35 ml -1429.88 ml -2971.42 ml Results Result Diagram: 02/06/175 02/06/175 Results 24 hrs Laboratory Tests Test 02/05/17 11:55 02/05/17 19:00 02/06/17 04:45 Fibrinogen 483.0 #H Urine Color LT. YELLOW Urine Clarity CLEAR Urine pH 5.0 Urine Specific [place] 1.015 Urine Ketones NEGATIVE Urine Nitrite NEGATIVE Urine Bilirubin NEGATIVE Urine Urobilinogen 0.2 E.U./dL Urine Leukocyte Esterase NEGATIVE Urine Hemoglobin NEGATIVE Urine Glucose NEGATIVE Urine Total Protein NEGATIVE White Blood Count 12.4 H Red Blood Count 2.88 L Hemoglobin 8.4 L Hematocrit 25.7 L Mean Corpuscular Volume 89.2 Mean Corpuscular Hemoglobin 29.2 Mean Corpuscular Hemoglobin Concent 32.7 Red Cell Distribution Width 15.5 H Platelet Count 78 #L Mean Platelet Volume 14.1 H Neutrophils % Lymphocytes % Monocytes % Eosinophils % Neutrophils # Lymphocytes # Monocytes # Eosinophils # Sodium Level 144 Potassium Level 3.4 L Chloride Level 110 Carbon Dioxide Level 25 Anion Gap 12 Blood Urea Nitrogen 21 H Creatinine 0.95 Glucose Level 96 Calcium Level 6.8 L Phosphorus Level 4.1 Magnesium Level 1.7 Total Bilirubin 0.2 Direct Bilirubin 0.00 Indirect Bilirubin 0.2 Aspartate Amino Transf (AST/SGOT) 22 Alanine Aminotransferase (ALT/SGPT) 24 Alkaline Phosphatase 66 Total Protein 4.2 L Albumin 1.6 L Vancomycin Level Trough 12.0 Medications Medications Current Medications Ondansetron HCl (Zofran Inj) 4 mg Q6H PRN IV NAUSEA AND/OR VOMITING; Start at 03:30 Metoclopramide HCl (Reglan) 10 mg Q6H IV Last administered on 02/06/17 03:40; Admin Dose 10 MG; Start 02/01/17 at 03:30 Hydromorphone HCl (Dilaudid) 1 mg Q4H PRN IV pain Last administered on 00:47; Admin Dose 1 MG; Start 02/01/17 at 03:30 Pantoprazole (Protonix Iv) 40 mg DAILY@06 IV Last administered on 02/06/17 05: 06; Admin Dose 40 MG; Start 02/01/17 at 06:00 Acetaminophen/ Hydrocodone Bitart ([place] (5/325)) 1 tab Q4H PRN PO PAIN LEVEL 4 -7; Start 02/01/17 at 20:30 Acetaminophen/ Hydrocodone Bitart ([place] (5/325)) 2 tab Q4H PRN PO PAIN LEVEL 7 -10; Start 02/01/17 at 20:30 Hydromorphone HCl (Dilaudid) 0.5 mg Q2 PRN IV PAIN; Start 02/01/17 at 20:30 Hydromorphone HCl (Dilaudid) 1 mg Q2 PRN IV PAIN Last administered on 11:57; Admin Dose 1 MG; Start 02/01/17 at 20:30 Docusate Sodium (Colace) 100 mg BID PRN PO CONSTIPATION; Start 02/01/17 at 20: 30 Bisacodyl (Dulcolax Supp) 10 mg BID PRN [place] CONSTIPATION; Start 02/01/17 at 20: 30 Sodium Biphosphate/ Sodium Phosphate (Fleet Enema) 133 ml BID PRN [place] CONSTIPATION; Start 02/01/17 at 20:30 Enoxaparin Sodium 40 mg 40 mg DAILY SC Last administered on 02/02/17 08:38; Admin Dose 40 MG; Start 02/02/17 at 09:00; Status Future Hold Propofol (Diprivan) 100 ml @ 2.202 mls/ hr Q12H IV Last administered on 05:12; Admin Dose 17.616 MLS/HR; Start 02/01/17 at 23:30 Ketorolac Tromethamine 30 mg 30 mg Q6H PRN IV PAIN; Start 02/02/17 at 09:30 Fentanyl 100 ml @ 2.5 mls/hr TITRATE IV Last administered on 02/05/17 21:43; Admin Dose 2.5 MLS/HR; Start 02/04/17 at 11:00 Metronidazole 100 ml @ 100 mls/hr Q8 IVPB Last administered on 02/06/17 05:07 ; Admin Dose 100 MLS/HR; Start 02/04/17 at 15:00 Vancomycin HCl 250 ml @ 125 mls/hr Q12H IVPB Last administered on 02/06/17 06 :29; Admin Dose 125 MLS/HR; Start 02/05/17 at 06:00 Meropenem (Merrem 500 Mg/ 100 ml (Pmx)) 100 ml @ 200 mls/hr Q8 IVPB Last administered on 02/06/17 05:18; Admin Dose 200 MLS/HR; Start 02/05/17 at 22:00 Acetaminophen 650 mg 650 mg Q4H PRN GTB PAIN AND OR ELEVATED TEMP Last administered on 02/06/17 05:06; Admin Dose 650 MG; Start 02/05/17 at 18:30 Sodium Chloride 500 ml @ 500 mls/hr Q1H ONCE IV Last administered on 07:50; Admin Dose 500 MLS/HR; Start 02/06/17 at 08:30; Stop 02/06/17 at 09: 29 Sodium Chloride 1,000 ml @ 100 mls/hr Q10H IV ; Start 02/06/17 at 08:30 Norepinephrine 250 ml @ 1.875 mls/ hr TITRATE IV Last administered on 08:17; Admin Dose 1.875 MLS/HR; Start 02/06/17 at 08:30; Stop 02/06/17 at 12:00 Norepinephrine/ Dextrose (Levophed/D5W) 500 ml @ 1.87 mls/hr TITRATE IV ; Start 02/06/17 at 12:00 DARIUSZ QUINTERO NP Feb 06, 2017 08:40
--- NOTE | 2017-02-06 09:16 | PN ---
Date/Time of Note Date/Time of Note DATE: 02/06/17 TIME: 09:02 Assessment/Plan VTE Prophylaxis VTE Prophylaxis Intervention: SCD's Lines/Catheters [facility] Peripheral IV Urinary Cath still in place: Yes Reason Cath still needed: other (indicate) Assessment/Plan Assessment/Plan IMPRESSION 1. Perforated sigmoid colon 2/2 Severe Crohn's colitis S/p Urgent Open Cronin's procedure with end colostomy, liver biopsy and abdominal lavage 02/01/17 2. Acute Resp failure / ?ARDS, Vent dependent 3. Chronic Crohn's disease with acute colitis and diarrhea: improved Cultures growing ecoli / proteus / enterococcus 4. Persistent hypocalcemia and hypokalemia 5. Thrombocytopenia: ?HIT 6. SIRS with lactic acidosis 2/2 severe colitis 7. Systemic shock likely hypovolemic from third spacing with hypoalbuminemia PLAN: * Today is post op day #5 * Continue vent mgt / abx * Albumin infusion / wean pressors / gentle fluid hydration while NPO * NGT remains to LIS still with good output / ?reglan * Continue current ICU post op care and Mgt * Replace electrolytes as needed * PRN pain control/ antiemetics/ antipyretics/ supportive care CRITICAL CARE TIME: >35 mins Subjective 24 Hr Interval Summary Free Text/Dictation Patient seen and examined. was not tolerating tube feeds and became hypotensive overnight. Has responded well to gentle fluid boluses though. Is only now on low dose pressors. Also had mild fever yesterday Subjective hx not possible: pt non-verbal, pt critical status Exam/Review of Systems Vital Signs Vitals Vital Signs Date Time Temp Pulse Resp B/P Pulse Ox O2 Delivery O2 Flow Rate FiO2 02/06/17 08:00 100.0 96 18 76/59 96 Mechanical Ventilator 02/06/17 05:30 35 Intake and Output 02/05/17 02/05/17 02/06/17 15:00 23:00 07:00 Intake Total 905 ml 870.12 ml 408.58 ml Output Total 900 ml 2340 ml 3310 ml Balance 5 ml -1469.88 ml -2901.42 ml Exam Constitutional: intubated. no distress on vent. sedated , Head: atraumatic, normocephalic Eyes: PERRL Respiratory: diminished breath sounds Cardiovascular: tachycardic with regular rhythm Gastrointestinal: Soft, Right sided colostomy with brownish/greenish stool. surgical site covered. Right sided draining tube in place Extremities: normal pulses, generalized edema on abd as well Genitourinary - Male: other (scrotal edema ++ . abbott to bedside drainage) Results Result Diagram: 02/06/17 0445 02/06/175 Results 24 hrs Laboratory Tests Test 02/05/17 11:55 02/05/17 19:00 02/06/17 04:45 Fibrinogen 483.0 #H Urine Color LT. YELLOW Urine Clarity CLEAR Urine pH 5.0 Urine Specific [place] 1.015 Urine Ketones NEGATIVE Urine Nitrite NEGATIVE Urine Bilirubin NEGATIVE Urine Urobilinogen 0.2 E.U./dL Urine Leukocyte Esterase NEGATIVE Urine Hemoglobin NEGATIVE Urine Glucose NEGATIVE Urine Total Protein NEGATIVE White Blood Count 12.4 H Red Blood Count 2.88 L Hemoglobin 8.4 L Hematocrit 25.7 L Mean Corpuscular Volume 89.2 Mean Corpuscular Hemoglobin 29.2 Mean Corpuscular Hemoglobin Concent 32.7 Red Cell Distribution Width 15.5 H Platelet Count 78 #L Mean Platelet Volume 14.1 H Neutrophils % Lymphocytes % Monocytes % Eosinophils % Neutrophils # Lymphocytes # Monocytes # Eosinophils # Sodium Level 144 Potassium Level 3.4 L Chloride Level 110 Carbon Dioxide Level 25 Anion Gap 12 Blood Urea Nitrogen 21 H Creatinine 0.95 Glucose Level 96 Calcium Level 6.8 L Phosphorus Level 4.1 Magnesium Level 1.7 Total Bilirubin 0.2 Direct Bilirubin 0.00 Indirect Bilirubin 0.2 Aspartate Amino Transf (AST/SGOT) 22 Alanine Aminotransferase (ALT/SGPT) 24 Alkaline Phosphatase 66 Total Protein 4.2 L Albumin 1.6 L Vancomycin Level Trough 12.0 Medications Medications Current Medications Ondansetron HCl (Zofran Inj) 4 mg Q6H PRN IV NAUSEA AND/OR VOMITING; Start at 03:30 Metoclopramide HCl (Reglan) 10 mg Q6H IV Last administered on 02/06/17 08:42; Admin Dose 10 MG; Start 02/01/17 at 03:30 Hydromorphone HCl (Dilaudid) 1 mg Q4H PRN IV pain Last administered on 00:47; Admin Dose 1 MG; Start 02/01/17 at 03:30 Pantoprazole (Protonix Iv) 40 mg DAILY@06 IV Last administered on 02/06/17 05: 06; Admin Dose 40 MG; Start 02/01/17 at 06:00 Acetaminophen/ Hydrocodone Bitart ([place] (5/325)) 1 tab Q4H PRN PO PAIN LEVEL 4 -7; Start 02/01/17 at 20:30 Acetaminophen/ Hydrocodone Bitart ([place] (5/325)) 2 tab Q4H PRN PO PAIN LEVEL 7 -10; Start 02/01/17 at 20:30 Hydromorphone HCl (Dilaudid) 0.5 mg Q2 PRN IV PAIN; Start 02/01/17 at 20:30 Hydromorphone HCl (Dilaudid) 1 mg Q2 PRN IV PAIN Last administered on 11:57; Admin Dose 1 MG; Start 02/01/17 at 20:30 Docusate Sodium (Colace) 100 mg BID PRN PO CONSTIPATION; Start 02/01/17 at 20: 30 Bisacodyl (Dulcolax Supp) 10 mg BID PRN [place] CONSTIPATION; Start 02/01/17 at 20: 30 Sodium Biphosphate/ Sodium Phosphate (Fleet Enema) 133 ml BID PRN [place] CONSTIPATION; Start 02/01/17 at 20:30 Enoxaparin Sodium 40 mg 40 mg DAILY SC Last administered on 02/02/17 08:38; Admin Dose 40 MG; Start 02/02/17 at 09:00; Status Future Hold Propofol (Diprivan) 100 ml @ 2.202 mls/ hr Q12H IV Last administered on 05:12; Admin Dose 17.616 MLS/HR; Start 02/01/17 at 23:30 Ketorolac Tromethamine 30 mg 30 mg Q6H PRN IV PAIN; Start 02/02/17 at 09:30 Fentanyl 100 ml @ 2.5 mls/hr TITRATE IV Last administered on 02/05/17 21:43; Admin Dose 2.5 MLS/HR; Start 02/04/17 at 11:00 Metronidazole 100 ml @ 100 mls/hr Q8 IVPB Last administered on 02/06/17 05:07 ; Admin Dose 100 MLS/HR; Start 02/04/17 at 15:00 Vancomycin HCl 250 ml @ 125 mls/hr Q12H IVPB Last administered on 02/06/17 06 :29; Admin Dose 125 MLS/HR; Start 02/05/17 at 06:00 Meropenem (Merrem 500 Mg/ 100 ml (Pmx)) 100 ml @ 200 mls/hr Q8 IVPB Last administered on 02/06/17 05:18; Admin Dose 200 MLS/HR; Start 02/05/17 at 22:00 Acetaminophen 650 mg 650 mg Q4H PRN GTB PAIN AND OR ELEVATED TEMP Last administered on 02/06/17 05:06; Admin Dose 650 MG; Start 02/05/17 at 18:30 Sodium Chloride 500 ml @ 500 mls/hr Q1H ONCE IV Last administered on 07:50; Admin Dose 500 MLS/HR; Start 02/06/17 at 08:30; Stop 02/06/17 at 09: 29 Sodium Chloride 1,000 ml @ 100 mls/hr Q10H IV Last administered on 02/06/17 08:50; Admin Dose 100 MLS/HR; Start 02/06/17 at 08:30 Norepinephrine 250 ml @ 1.875 mls/ hr TITRATE IV Last administered on 08:17; Admin Dose 1.875 MLS/HR; Start 02/06/17 at 08:30; Stop 02/06/17 at 12:00 Norepinephrine/ Dextrose (Levophed/D5W) 500 ml @ 1.87 mls/hr TITRATE IV ; Start 02/06/17 at 12:00 VINCE PADGETT Feb 06, 2017 09:12
[2017-02-06] MEDS ORDERED: POTASSIUM CHLORIDE 250 ML IVPB ONE (09:30)
[2017-02-06] MEDS ORDERED: ALBUMIN HUMAN 25% 100 ML IV ONE (09:30)
[2017-02-06 09:46] LABS: LYMPHOCYTES # 0.1 10^3/ul (0.8-2.9); MONOCYTE # 0.4 10^3/ul (0.3-0.9); NEUTROPHIL # 10.3 10^3/ul (1.6-7.5); PLATELET ESTIMATE PLT APPEAR DECREASED; TOXIC GRANULATION 1+
[2017-02-06 09:47] LABS: TARGET CELLS OCCASIONAL
--- NOTE | 2017-02-06 10:11 | RADRPT ---
PROCEDURE: XR Chest. CLINICAL INDICATION: Respiratory failure TECHNIQUE: An AP view of the chest was obtained. COMPARISON: Chest x-ray dated 02/05/2017 FINDINGS: The endotracheal tube tip is approximately 3.5 cm above the hira. The tip of the enteric tube ex tends below the left diaphragm. There is prominence of the central pulmonary vascular markings with small bilateral pleural effusion s. No focal airspace opacification or pneumothorax is seen. The cardiomediastinal silhouette is wi thin normal limits for size. The osseous structures are unremarkable. IMPRESSION: 1. Findings suggestive of pulmonary vascular congestion with small bilateral pleural effusions. Mikayla ng aeration is significantly improved when compared to the prior examination. 2. Tubes and lines, as described above. RPTAT: HH .Ignacia Maxwell MD, MD Date Time Electronically viewed and signed by .Ignacia Maxwell MD, MD on 02/06/2017 10:11 .G/
[2017-02-06] MEDS: D5W-0.45 NACL + KCL 40 MEQ 1,000 ML IV SCH (10:41)
--- NOTE | 2017-02-06 11:00 | PN ---
Date/Time of Note Date/Time of Note DATE: 02/06/17 TIME: 10:59 Assessment/Plan VTE Prophylaxis VTE Prophylaxis Intervention: SCD's Lines/Catheters IV Catheter Type (from Nrs): Peripheral IV Urinary Cath still in place: Yes Reason Cath still needed: urinary retention Assessment/Plan Assessment/Plan Perforated colon status post surgery Severe sepsis Respiratory failure Volume overload Crohn's disease Thrombocytopenia Hypotension -wean off levophed -ivf initiated -d/c lasix due to profound output and hypotension - hold lasix for now may need to decrease fluids soon as flutid overload recently Subjective 24 Hr Interval Summary Free Text/Dictation The patient with increasaed output and hypotension Exam/Review of Systems Vital Signs Vitals Vital Signs Date Time Temp Pulse Resp B/P Pulse Ox O2 Delivery O2 Flow Rate FiO2 02/06/17 08:00 100.0 96 18 76/59 96 Mechanical Ventilator 02/06/17 05:30 35 Intake and Output 02/05/17 02/05/17 02/06/17 15:00 23:00 07:00 Intake Total 905 ml 870.12 ml 408.58 ml Output Total 900 ml 2340 ml 3310 ml Balance 5 ml -1469.88 ml -2901.42 ml Results Result Diagram: 02/06/17 0445 02/06/17 0445 Results 24 hrs Laboratory Tests Test 02/05/17 11:55 02/05/17 19:00 02/06/17 04:45 Fibrinogen 483.0 #H Urine Color LT. YELLOW Urine Clarity CLEAR Urine pH 5.0 Urine Specific [place] 1.015 Urine Ketones NEGATIVE Urine Nitrite NEGATIVE Urine Bilirubin NEGATIVE Urine Urobilinogen 0.2 E.U./dL Urine Leukocyte Esterase NEGATIVE Urine Hemoglobin NEGATIVE Urine Glucose NEGATIVE Urine Total Protein NEGATIVE White Blood Count 12.4 H Red Blood Count 2.88 L Hemoglobin 8.4 L Hematocrit 25.7 L Mean Corpuscular Volume 89.2 Mean Corpuscular Hemoglobin 29.2 Mean Corpuscular Hemoglobin Concent 32.7 Red Cell Distribution Width 15.5 H Platelet Count 78 #L Mean Platelet Volume 14.1 H Neutrophils % 83.0 H Band Neutrophils % 13.0 H Lymphocytes % 1.0 L Monocytes % 3.0 Eosinophils % Neutrophils # 10.3 H Lymphocytes # 0.1 L Monocytes # 0.4 Eosinophils # Toxic Granulation 1+ Platelet Estimate PLT APPEAR DECREASED Large Platelets FEW Target Cells OCCASIONAL Sodium Level 144 Potassium Level 3.4 L Chloride Level 110 Carbon Dioxide Level 25 Anion Gap 12 Blood Urea Nitrogen 21 H Creatinine 0.95 Glucose Level 96 Calcium Level 6.8 L Phosphorus Level 4.1 Magnesium Level 1.7 Total Bilirubin 0.2 Direct Bilirubin 0.00 Indirect Bilirubin 0.2 Aspartate Amino Transf (AST/SGOT) 22 Alanine Aminotransferase (ALT/SGPT) 24 Alkaline Phosphatase 66 Total Protein 4.2 L Albumin 1.6 L Vancomycin Level Trough 12.0 Medications Medications Current Medications Ondansetron HCl (Zofran Inj) 4 mg Q6H PRN IV NAUSEA AND/OR VOMITING; Start at 03:30 Metoclopramide HCl (Reglan) 10 mg Q6H IV Last administered on 02/06/17 08:42; Admin Dose 10 MG; Start 02/01/17 at 03:30 Hydromorphone HCl (Dilaudid) 1 mg Q4H PRN IV pain Last administered on 00:47; Admin Dose 1 MG; Start 02/01/17 at 03:30 Pantoprazole (Protonix Iv) 40 mg DAILY@06 IV Last administered on 02/06/17 05: 06; Admin Dose 40 MG; Start 02/01/17 at 06:00 Acetaminophen/ Hydrocodone Bitart ([place] (5/325)) 1 tab Q4H PRN PO PAIN LEVEL 4 -7; Start 02/01/17 at 20:30 Acetaminophen/ Hydrocodone Bitart ([place] (5/325)) 2 tab Q4H PRN PO PAIN LEVEL 7 -10; Start 02/01/17 at 20:30 Hydromorphone HCl (Dilaudid) 0.5 mg Q2 PRN IV PAIN; Start 02/01/17 at 20:30 Hydromorphone HCl (Dilaudid) 1 mg Q2 PRN IV PAIN Last administered on 11:57; Admin Dose 1 MG; Start 02/01/17 at 20:30 Docusate Sodium (Colace) 100 mg BID PRN PO CONSTIPATION; Start 02/01/17 at 20: 30 Bisacodyl (Dulcolax Supp) 10 mg BID PRN [place] CONSTIPATION; Start 02/01/17 at 20: 30 Sodium Biphosphate/ Sodium Phosphate (Fleet Enema) 133 ml BID PRN [place] CONSTIPATION; Start 02/01/17 at 20:30 Enoxaparin Sodium 40 mg 40 mg DAILY SC Last administered on 02/02/17 08:38; Admin Dose 40 MG; Start 02/02/17 at 09:00; Status Future Hold Propofol (Diprivan) 100 ml @ 2.202 mls/ hr Q12H IV Last administered on 10:39; Admin Dose 17.616 MLS/HR; Start 02/01/17 at 23:30 Ketorolac Tromethamine 30 mg 30 mg Q6H PRN IV PAIN; Start 02/02/17 at 09:30 Fentanyl 100 ml @ 2.5 mls/hr TITRATE IV Last administered on 02/05/17 21:43; Admin Dose 2.5 MLS/HR; Start 02/04/17 at 11:00 Metronidazole 100 ml @ 100 mls/hr Q8 IVPB Last administered on 02/06/17 05:07 ; Admin Dose 100 MLS/HR; Start 02/04/17 at 15:00 Vancomycin HCl 250 ml @ 125 mls/hr Q12H IVPB Last administered on 02/06/17 06 :29; Admin Dose 125 MLS/HR; Start 02/05/17 at 06:00 Meropenem (Merrem 500 Mg/ 100 ml (Pmx)) 100 ml @ 200 mls/hr Q8 IVPB Last administered on 02/06/17 05:18; Admin Dose 200 MLS/HR; Start 02/05/17 at 22:00 Acetaminophen 650 mg 650 mg Q4H PRN GTB PAIN AND OR ELEVATED TEMP Last administered on 02/06/17 05:06; Admin Dose 650 MG; Start 02/05/17 at 18:30 Sodium Chloride 1,000 ml @ 100 mls/hr Q10H IV Last administered on 02/06/17 08:50; Admin Dose 100 MLS/HR; Start 02/06/17 at 08:30; Status Future Hold Norepinephrine 250 ml @ 1.875 mls/ hr TITRATE IV Last administered on 08:17; Admin Dose 1.875 MLS/HR; Start 02/06/17 at 08:30; Stop 02/06/17 at 12:00 Norepinephrine 16 mg/Dextrose 500 ml @ 1.87 mls/hr TITRATE IV ; Start 02/06/17 at 12:00 Calcium Gluconate 2 gm/Sodium Chloride 120 ml @ 60 mls/hr Q4H IVPB ; Start at 10:00; Stop 02/06/17 at 15:59 Potassium Chloride 250 ml @ 62.5 mls/hr ONCE ONCE IVPB Last administered on 10:41; Admin Dose 62.5 MLS/HR; Start 02/06/17 at 09:30; Stop 02/06/17 at 13:29 Potassium Chloride/Dextrose/ Sod Cl 1,000 ml @ 60 mls/hr [id number] IV Last administered on 02/06/17 10:41; Admin Dose 60 MLS/HR; Start 02/06/17 at 10:00 Albumin Human (Albumin Human 25%) 100 ml @ 100 mls/hr Q8H IV ; Start 02/06/17 at 17:30; Stop 02/07/17 at 02:29 FILEMON WYNNE MD Feb 06, 2017 11:00
--- NOTE | 2017-02-06 12:11 | CONS ---
Date/Time of Note Date/Time of Note DATE: 02/06/17 TIME: 12:06 Consult Date/Type/Reason Admit Date/Time Feb 01, 2017 at 03:10 Initial Consult Date 02/02/17 Type of Consultation: Pulm/CCM Ordering Provider: VINCE PADGETT Subjective Sedated on MV. Failed CPAP trial this morning with RR to 50. Objective Vital Signs Date Time Temp Pulse Resp B/P Pulse Ox O2 Delivery O2 Flow Rate FiO2 02/06/17 08:00 91 02/06/17 08:00 100.0 18 76/59 96 Mechanical Ventilator 02/06/17 08:00 30 Intake and Output 02/05/17 02/05/17 02/06/17 15:00 23:00 07:00 Intake Total 905 ml 870.12 ml 408.58 ml Output Total 900 ml 2340 ml 3310 ml Balance 5 ml -1469.88 ml -2901.42 ml Exam HEENT: Pupils equal, round, and reactive to light. CARDIAC: S1, S2, tachycardia. CHEST: Diminished air entry bilaterally. ABDOMEN: Mildly distended. No bowel sounds. EXTREMITIES: No cyanosis, clubbing or edema. Results/Medications Result Diagram: 02/06/17 0445 02/06/17 0445 Results 24 hrs Laboratory Tests Test 02/05/17 19:00 02/06/17 04:45 Urine Color LT. YELLOW Urine Clarity CLEAR Urine pH 5.0 Urine Specific [place] 1.015 Urine Ketones NEGATIVE Urine Nitrite NEGATIVE Urine Bilirubin NEGATIVE Urine Urobilinogen 0.2 E.U./dL Urine Leukocyte Esterase NEGATIVE Urine Hemoglobin NEGATIVE Urine Glucose NEGATIVE Urine Total Protein NEGATIVE White Blood Count 12.4 H Red Blood Count 2.88 L Hemoglobin 8.4 L Hematocrit 25.7 L Mean Corpuscular Volume 89.2 Mean Corpuscular Hemoglobin 29.2 Mean Corpuscular Hemoglobin Concent 32.7 Red Cell Distribution Width 15.5 H Platelet Count 78 #L Mean Platelet Volume 14.1 H Neutrophils % 83.0 H Band Neutrophils % 13.0 H Lymphocytes % 1.0 L Monocytes % 3.0 Eosinophils % Neutrophils # 10.3 H Lymphocytes # 0.1 L Monocytes # 0.4 Eosinophils # Toxic Granulation 1+ Platelet Estimate PLT APPEAR DECREASED Large Platelets FEW Target Cells OCCASIONAL Sodium Level 144 Potassium Level 3.4 L Chloride Level 110 Carbon Dioxide Level 25 Anion Gap 12 Blood Urea Nitrogen 21 H Creatinine 0.95 Glucose Level 96 Calcium Level 6.8 L Phosphorus Level 4.1 Magnesium Level 1.7 Total Bilirubin 0.2 Direct Bilirubin 0.00 Indirect Bilirubin 0.2 Aspartate Amino Transf (AST/SGOT) 22 Alanine Aminotransferase (ALT/SGPT) 24 Alkaline Phosphatase 66 Total Protein 4.2 L Albumin 1.6 L Vancomycin Level Trough 12.0 Medications Current Medications Ondansetron HCl (Zofran Inj) 4 mg Q6H PRN IV NAUSEA AND/OR VOMITING; Start at 03:30 Metoclopramide HCl (Reglan) 10 mg Q6H IV Last administered on 02/06/17 08:42; Admin Dose 10 MG; Start 02/01/17 at 03:30 Hydromorphone HCl (Dilaudid) 1 mg Q4H PRN IV pain Last administered on 00:47; Admin Dose 1 MG; Start 02/01/17 at 03:30 Pantoprazole (Protonix Iv) 40 mg DAILY@06 IV Last administered on 02/06/17 05: 06; Admin Dose 40 MG; Start 02/01/17 at 06:00 Acetaminophen/ Hydrocodone Bitart ([place] (5/325)) 1 tab Q4H PRN PO PAIN LEVEL 4 -7; Start 02/01/17 at 20:30 Acetaminophen/ Hydrocodone Bitart ([place] (5/325)) 2 tab Q4H PRN PO PAIN LEVEL 7 -10; Start 02/01/17 at 20:30 Hydromorphone HCl (Dilaudid) 0.5 mg Q2 PRN IV PAIN; Start 02/01/17 at 20:30 Hydromorphone HCl (Dilaudid) 1 mg Q2 PRN IV PAIN Last administered on 11:57; Admin Dose 1 MG; Start 02/01/17 at 20:30 Docusate Sodium (Colace) 100 mg BID PRN PO CONSTIPATION; Start 02/01/17 at 20: 30 Bisacodyl (Dulcolax Supp) 10 mg BID PRN [place] CONSTIPATION; Start 02/01/17 at 20: 30 Sodium Biphosphate/ Sodium Phosphate (Fleet Enema) 133 ml BID PRN [place] CONSTIPATION; Start 02/01/17 at 20:30 Enoxaparin Sodium 40 mg 40 mg DAILY SC Last administered on 02/02/17 08:38; Admin Dose 40 MG; Start 02/02/17 at 09:00; Status Future Hold Propofol (Diprivan) 100 ml @ 2.202 mls/ hr Q12H IV Last administered on 10:39; Admin Dose 17.616 MLS/HR; Start 02/01/17 at 23:30 Ketorolac Tromethamine 30 mg 30 mg Q6H PRN IV PAIN; Start 02/02/17 at 09:30 Fentanyl 100 ml @ 2.5 mls/hr TITRATE IV Last administered on 02/05/17 21:43; Admin Dose 2.5 MLS/HR; Start 02/04/17 at 11:00 Metronidazole 100 ml @ 100 mls/hr Q8 IVPB Last administered on 02/06/17 05:07 ; Admin Dose 100 MLS/HR; Start 02/04/17 at 15:00 Vancomycin HCl 250 ml @ 125 mls/hr Q12H IVPB Last administered on 02/06/17 06 :29; Admin Dose 125 MLS/HR; Start 02/05/17 at 06:00 Meropenem (Merrem 500 Mg/ 100 ml (Pmx)) 100 ml @ 200 mls/hr Q8 IVPB Last administered on 02/06/17 05:18; Admin Dose 200 MLS/HR; Start 02/05/17 at 22:00 Acetaminophen 650 mg 650 mg Q4H PRN GTB PAIN AND OR ELEVATED TEMP Last administered on 02/06/17 05:06; Admin Dose 650 MG; Start 02/05/17 at 18:30 Sodium Chloride 1,000 ml @ 100 mls/hr Q10H IV Last administered on 02/06/17 08:50; Admin Dose 100 MLS/HR; Start 02/06/17 at 08:30; Status Future Hold Norepinephrine 16 mg/Dextrose 500 ml @ 1.87 mls/hr TITRATE IV ; Start 02/06/17 at 12:00 Calcium Gluconate 2 gm/Sodium Chloride 120 ml @ 60 mls/hr Q4H IVPB ; Start at 10:00; Stop 02/06/17 at 15:59 Potassium Chloride 250 ml @ 62.5 mls/hr ONCE ONCE IVPB Last administered on 10:41; Admin Dose 62.5 MLS/HR; Start 02/06/17 at 09:30; Stop 02/06/17 at 13:29 Potassium Chloride/Dextrose/ Sod Cl 1,000 ml @ 60 mls/hr [id number] IV Last administered on 02/06/17 10:41; Admin Dose 60 MLS/HR; Start 02/06/17 at 10:00 Albumin Human (Albumin Human 25%) 100 ml @ 100 mls/hr Q8H IV ; Start 02/06/17 at 17:30; Stop 02/07/17 at 02:29 Assessment/Plan Additional Assessment/Plan IMP: 1. Crohn's disease with perforation of sigmoid colon and sepsis status post arthroscopic sigmoid colectomy and end colostomy with lysis of adhesions 2. Resolved metabolic acidosis with septic shock 3. Hypoxemic respiratory failure--with imaging showing patchy GGO and effusions. Failing weaned. Etiology remains unclear. Not likely due to agitation as I tried CPAP while on deep sedation. 4. Thrombocytopenia--DIC versus HIT 5. Anemia RECS: 1. Continue surgical care recommendations 2. Vent support 3. Nasogastric tube to LIS 4. Will assess NIF/VC to assess resp muscle fxn 5. DVT and GI prophylaxis 6. Antibiotics Disposition Continue ICU care Discussed with nursing staff Critical care time 35 minutes JAYA POPE MD Feb 06, 2017 12:11
--- NOTE | 2017-02-06 12:15 | CONS ---
DATE OF ADMISSION: 02/01/2017 DATE OF CONSULTATION: 02/06/2017 SUBJECTIVE: GENERAL: The patient remains unchanged. He is still sedated with propofol and ventilator dependent . OBJECTIVE: VITAL SIGNS: Temperature 100 axillary, pulse 96 per minute and regular, respirations 18, blood pres sure 76/95 and pulse oximetry 96% on 35% oxygen by ventilator support. SKIN: No ecchymosis, no petechiae or rashes. The erythema previously noted in the flank areas has resolved. HEENT: The patient has NG tube in place and also endotracheal tube. There is no scleral icterus. NECK: Supple. No jugular venous distention or thyroid enlargement. CHEST: Clear to auscultation and percussion. No rhonchi, wheezes, rales or rubs. NODES: No palpable lymphadenopathy in lymph node bearing area. HEART: Regular sinus rhythm, no S3, S4 or murmurs. ABDOMEN: Soft. No bowel sounds. No succussion splash. There is a stoma in the anterior abdomen, which is not functioning at this time. EXTREMITIES: No clubbing or cyanosis. NEUROLOGIC: As noted, the patient is sedated with propofol, but is arousable. Protime 14.____ seconds, INR 1.14, PTT 35.9 seconds, fibrinogen 483. Creatinine is 0.95, BUN 21, al bumin is only 1.6. White count 12,400, hemoglobin 8.4, hematocrit 25.7 and platelet count is now 78,000. ASSESSMENT: 1. Perforation of sigmoid colon due to inflammatory bowel disease. 2. Thrombocytopenia, likely due to sepsis, resolving. PLAN: We will continue to monitor the patient's CBC. Platelet transfusion not required at this joycelyn e. The patient has been hypotensive. We will give a bolus of fluid as well as start on pressors. It i s likely that some of the hypotension is due to volume loss, given the fact that the patient had an NG tube output yesterday of 1700 mL. Dictated By: FEDERICO SAHA MD, SR/NTS Conf#: [id number] DID#: [id number]
--- NOTE | 2017-02-06 12:34 | PN ---
Date/Time of Note Date/Time of Note DATE: 02/06/17 TIME: 12:28 Assessment/Plan VTE Prophylaxis VTE Prophylaxis Intervention: SCD's Lines/Catheters IV Catheter Type (from [facility]): Peripheral IV Urinary Cath still in place: Yes Reason Cath still needed: other (indicate) Assessment/Plan Assessment/Plan Assessment: Perforated sigmoid colon * Laparoscopic exploration,open sigmoid colectomy with Deena end colostomy with liver biopsy segment V * h/o Crohn's disease * Respiratory failure stable on ventilator * Thrombocytopenia Plan: * continue present management * Will evaluate treatment for Crohn's once recovering Subjective 24 Hr Interval Summary Free Text/Dictation Course reviewed with RN Patient seen and examined Lethargic, episode of hypotensive Exam/Review of Systems Vital Signs Vitals Vital Signs Date Time Temp Pulse Resp B/P Pulse Ox O2 Delivery O2 Flow Rate FiO2 02/06/17 11:30 100 27 95 35 02/06/17 08:00 100.0 76/59 Mechanical Ventilator Intake and Output 02/05/17 02/05/17 02/06/17 15:00 23:00 07:00 Intake Total 905 ml 870.12 ml 408.58 ml Output Total 900 ml 2340 ml 3310 ml Balance 5 ml -1469.88 ml -2901.42 ml Exam Constitutional: frail ENMT: intubated, other (ng tube in placed) Neck: supple Respiratory: diminished breath sounds, normal air movement, other (on ventilator) Cardiovascular: regular rate and rhythm Gastrointestinal: bowel sounds, non-tender, other (colostomy ), No rebound or guarding Musculoskeletal: nl extremities to inspection Results Result Diagram: 02/06/17 0445 02/06/17 0445 Results 24 hrs Laboratory Tests Test 02/05/17 19:00 02/06/17 04:45 Urine Color LT. YELLOW Urine Clarity CLEAR Urine pH 5.0 Urine Specific [place] 1.015 Urine Ketones NEGATIVE Urine Nitrite NEGATIVE Urine Bilirubin NEGATIVE Urine Urobilinogen 0.2 E.U./dL Urine Leukocyte Esterase NEGATIVE Urine Hemoglobin NEGATIVE Urine Glucose NEGATIVE Urine Total Protein NEGATIVE White Blood Count 12.4 H Red Blood Count 2.88 L Hemoglobin 8.4 L Hematocrit 25.7 L Mean Corpuscular Volume 89.2 Mean Corpuscular Hemoglobin 29.2 Mean Corpuscular Hemoglobin Concent 32.7 Red Cell Distribution Width 15.5 H Platelet Count 78 #L Mean Platelet Volume 14.1 H Neutrophils % 83.0 H Band Neutrophils % 13.0 H Lymphocytes % 1.0 L Monocytes % 3.0 Eosinophils % Neutrophils # 10.3 H Lymphocytes # 0.1 L Monocytes # 0.4 Eosinophils # Toxic Granulation 1+ Platelet Estimate PLT APPEAR DECREASED Large Platelets FEW Target Cells OCCASIONAL Sodium Level 144 Potassium Level 3.4 L Chloride Level 110 Carbon Dioxide Level 25 Anion Gap 12 Blood Urea Nitrogen 21 H Creatinine 0.95 Glucose Level 96 Calcium Level 6.8 L Phosphorus Level 4.1 Magnesium Level 1.7 Total Bilirubin 0.2 Direct Bilirubin 0.00 Indirect Bilirubin 0.2 Aspartate Amino Transf (AST/SGOT) 22 Alanine Aminotransferase (ALT/SGPT) 24 Alkaline Phosphatase 66 Total Protein 4.2 L Albumin 1.6 L Vancomycin Level Trough 12.0 Medications Medications Current Medications Ondansetron HCl (Zofran Inj) 4 mg Q6H PRN IV NAUSEA AND/OR VOMITING; Start at 03:30 Metoclopramide HCl (Reglan) 10 mg Q6H IV Last administered on 02/06/17 08:42; Admin Dose 10 MG; Start 02/01/17 at 03:30 Hydromorphone HCl (Dilaudid) 1 mg Q4H PRN IV pain Last administered on 00:47; Admin Dose 1 MG; Start 02/01/17 at 03:30 Pantoprazole (Protonix Iv) 40 mg DAILY@06 IV Last administered on 02/06/17 05: 06; Admin Dose 40 MG; Start 02/01/17 at 06:00 Acetaminophen/ Hydrocodone Bitart ([place] (5/325)) 1 tab Q4H PRN PO PAIN LEVEL 4 -7; Start 02/01/17 at 20:30 Acetaminophen/ Hydrocodone Bitart ([place] (5/325)) 2 tab Q4H PRN PO PAIN LEVEL 7 -10; Start 02/01/17 at 20:30 Hydromorphone HCl (Dilaudid) 0.5 mg Q2 PRN IV PAIN; Start 02/01/17 at 20:30 Hydromorphone HCl (Dilaudid) 1 mg Q2 PRN IV PAIN Last administered on 11:57; Admin Dose 1 MG; Start 02/01/17 at 20:30 Docusate Sodium (Colace) 100 mg BID PRN PO CONSTIPATION; Start 02/01/17 at 20: 30 Bisacodyl (Dulcolax Supp) 10 mg BID PRN [place] CONSTIPATION; Start 02/01/17 at 20: 30 Sodium Biphosphate/ Sodium Phosphate (Fleet Enema) 133 ml BID PRN [place] CONSTIPATION; Start 02/01/17 at 20:30 Enoxaparin Sodium 40 mg 40 mg DAILY SC Last administered on 02/02/17 08:38; Admin Dose 40 MG; Start 02/02/17 at 09:00; Status Future Hold Propofol (Diprivan) 100 ml @ 2.202 mls/ hr Q12H IV Last administered on 10:39; Admin Dose 17.616 MLS/HR; Start 02/01/17 at 23:30 Ketorolac Tromethamine 30 mg 30 mg Q6H PRN IV PAIN; Start 02/02/17 at 09:30 Fentanyl 100 ml @ 2.5 mls/hr TITRATE IV Last administered on 02/05/17 21:43; Admin Dose 2.5 MLS/HR; Start 02/04/17 at 11:00 Metronidazole 100 ml @ 100 mls/hr Q8 IVPB Last administered on 02/06/17 05:07 ; Admin Dose 100 MLS/HR; Start 02/04/17 at 15:00 Vancomycin HCl 250 ml @ 125 mls/hr Q12H IVPB Last administered on 02/06/17 06 :29; Admin Dose 125 MLS/HR; Start 02/05/17 at 06:00 Meropenem (Merrem 500 Mg/ 100 ml (Pmx)) 100 ml @ 200 mls/hr Q8 IVPB Last administered on 02/06/17 05:18; Admin Dose 200 MLS/HR; Start 02/05/17 at 22:00 Acetaminophen 650 mg 650 mg Q4H PRN GTB PAIN AND OR ELEVATED TEMP Last administered on 02/06/17 05:06; Admin Dose 650 MG; Start 02/05/17 at 18:30 Sodium Chloride 1,000 ml @ 100 mls/hr Q10H IV Last administered on 02/06/17 08:50; Admin Dose 100 MLS/HR; Start 02/06/17 at 08:30; Status Future Hold Norepinephrine 16 mg/Dextrose 500 ml @ 1.87 mls/hr TITRATE IV ; Start 02/06/17 at 12:00 Calcium Gluconate 2 gm/Sodium Chloride 120 ml @ 60 mls/hr Q4H IVPB ; Start at 10:00; Stop 02/06/17 at 15:59 Potassium Chloride 250 ml @ 62.5 mls/hr ONCE ONCE IVPB Last administered on 10:41; Admin Dose 62.5 MLS/HR; Start 02/06/17 at 09:30; Stop 02/06/17 at 13:29 Potassium Chloride/Dextrose/ Sod Cl 1,000 ml @ 60 mls/hr [id number] IV Last administered on 02/06/17 10:41; Admin Dose 60 MLS/HR; Start 02/06/17 at 10:00 Albumin Human (Albumin Human 25%) 100 ml @ 100 mls/hr Q8H IV ; Start 02/06/17 at 17:30; Stop 02/07/17 at 02:29 SANDRA DAVIS MD Feb 06, 2017 12:34
[2017-02-06] MEDS: CALCIUM GLUCONATE 10% 2 GM in SOD CHLORIDE 0.9% 100 ML IVPB SCH ×2 (12:36→15:00)
--- NOTE | 2017-02-06 13:22 | PN ---
Date/Time of Note Date/Time of Note DATE: 02/06/17 TIME: 13:02 Assessment/Plan Lines/Catheters IV Catheter Type (from Nrsg): Peripheral IV Zeng in Place (from Nrsg): Yes Assessment/Plan Assessment/Plan [facility] Progress Note Date of Service: 02/06/17 Today's Impression & Plan: Overall stable but remains dependent on the Vent. No obvious major post operative complication. No major wound problems. Cannot explain vent dependence. With high D-dimer and hypoxia on the vent, PE needs to be ruled out (even though they could be confounded by his other clinical issues). His left and right lower lungs are down and there is fluid in the chest. Agree with Dr. Sweeney that the likelihood that pleural effusion drainage and bronch will make a meaningful difference in the clinical picture is low. May be something to consider if no other interveneable issue identified. His increased NG output is likely reflective of his clinically stressed picture, but CT will help. D/w team. With above assessment, I've recommended the following for today: 1. CT angio of chest to evaluate for PE; in conjunction with IV and oral contrast CT abd/pelvis 2. If PE, ok to fully anticoagulate (please discuss with cardiology and ICU) 3. May need parenteral nutrition if unable to feed by Wednesday 4. 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 Consider further diuresis when BP allows 6. Labs in am 7. Increase activity 8. Increase ICS 9. Keep in ICU Thank you again for your great care of this very pleasant patient and wonderful family. If there are any questions, please feel free to call me at [phone]. TOTAL VISIT TIME: 20 minutes of which more than half was spent in [id number] discussion with the patient, possibly including family, as well as coordination of care between multiple physicians and providers. Disclaimer: Inadvertent spelling or grammatical errors are likely due to EHR/ dictation software use and do not reflect on the overall quality of patient care. Updated Clinical Summary: a very pleasant 46-year-old gentleman with history of Crohn's disease as well as prior surgery for anal fistula approximately 5 years ago, and a torn meniscus repair on the left knee, presenting with abdominal pain associated with a few weeks' duration of diarrhea. S/p an otherwise uncomplicated diagnostic laparoscopy was converted first to hand assist and then to open exploration when perforated sigmoid colon was found and it was resected with a Deena type procedure and end colostomy as well as core needle liver biopsy, segment 5, due to presence of fatty liver disease, lysis of adhesions, and abdominal lavage on 02/01/17. Failed to wean off the vent through 02/06/17. COMORBIDITIES: 1. Crohn disease with perforation of sigmoid colon and sepsis. S/p an otherwise uncomplicated diagnostic laparoscopy was converted first to hand assist and then to open exploration when perforated sigmoid colon was found and it was resected with a Deena type procedure and end colostomy as well as core needle liver biopsy, segment 5, due to presence of fatty liver disease, lysis of adhesions, and abdominal lavage on 02/01/17. 2. Repair of a fistula approximately 5 years ago. 3. Torn meniscus on the left knee status post repair. Subjective: No major events or complaints overnight; remains intubated and failed weaning trial again; no abd pain and under control with medications; no n/v/d; no sob or cp; + flatus; + BM; + activity Objective: Vitals: See below Exam: GENERAL: On exam, the patient was laying in bed and appeared to be comfortable and in no acute distress. ABDOMEN: Soft, nontender and nondistended. Incision dressings are clean, dry and intact without any evidence of obvious underlying erythema, edema, discharge , or hernia. Surgery drain ss. Ostomy pink and viable; some air and stool in the bag. There are no peritoneal signs or guarding. SKIN: Skin appears to be pink and feels warm to touch. NEUROLOGIC: Patient is arousable, and follows commands appropriately. Exam/Review of Systems Vital Signs Vitals Vital Signs Date Time Temp Pulse Resp B/P Pulse Ox O2 Delivery O2 Flow Rate FiO2 02/06/17 11:30 100 27 95 35 02/06/17 08:00 100.0 76/59 Mechanical Ventilator Intake and Output 02/05/17 02/05/17 02/06/17 15:00 23:00 07:00 Intake Total 905 ml 870.12 ml 408.58 ml Output Total 900 ml 2340 ml 3310 ml Balance 5 ml -1469.88 ml -2901.42 ml Results Result Diagram: 02/06/17 0445 02/06/17 0445 TI HILTON M.D. Feb 06, 2017 13:13
[2017-02-06 16:08] LABS: Allen Test ACCEPTAB; Arterial Base Excess 0.5 mmol/L (-3.0-3); Arterial COHb 0.4 % (0.0-3.0); Arterial Fraction of Oxyhgb 88.6 % (93.0-99.0); Arterial HCO3 23.3 mmol/L (22.0-26.0); Arterial MetHb 0.2 % (0.0-1.5); Arterial Total Hemglobin 8.9 g/dl (12.0-18.0); MODE VENT - AC
[2017-02-06] MEDS ORDERED: LIDOCAINE 1% (MPF) 5 ML VIAL INJ ONE (17:00)
[2017-02-06] MEDS: ALBUMIN HUMAN 25% 100 ML IV SCH (18:12)
[2017-02-06 22:25] LABS: AADO2 Arterial 203.5 mmHg (7.0-24.0); Allen Test ACCEPTAB; Arterial Base Excess -0.6 mmol/L (-3.0-3); Arterial COHb 0.4 % (0.0-3.0); Arterial Fraction of Oxyhgb 97.2 % (93.0-99.0); Arterial HCO3 22.8 mmol/L (22.0-26.0); Arterial MetHb 0.5 % (0.0-1.5); MODE VENT - AC
[2017-02-07] VITALS (43 sets, daily range): BP systolic 96–150; BP diastolic 56–109; PULSE 85–120; RESP 14–36
[2017-02-07] MEDS ORDERED: IOHEXOL 100 ML ONE ×2 (00:28→00:31)
[2017-02-07] MEDS ORDERED: SOD CHLORIDE 0.9% 100 ML ONE (00:28)
[2017-02-07] MEDS ORDERED: DIATR MEGLU/DIATRIZOATE SODIUM 120 ML BTL ONE (00:30)
[2017-02-07] MEDS ORDERED: IOHEXOL 350MG/ML 50 ML BTL ONE (00:30)
[2017-02-07] MEDS: PROPOFOL 100 ML IV SCH ×2 (02:52→08:04)
[2017-02-07] MEDS: ALBUMIN HUMAN 25% 100 ML IV SCH (02:53)
[2017-02-07] MEDS: MEROPENEM 500 MG/100 ML (PMX) 100 ML IVPB SCH ×3 (05:29→21:43)
[2017-02-07] MEDS: VANCOMYCIN 1 GM in NS 250 ML IVPB SCH ×2 (05:29→18:10)
[2017-02-07] MEDS: metroNIDAZOLE 500 MG/NS (PMX) 100 ML IVPB SCH ×3 (05:30→21:44)
[2017-02-07] MEDS: PANTOPRAZOLE 40 MG INJ IV SCH (05:30)
[2017-02-07] MEDS: METOCLOPRAMIDE 10 MG INJ IV SCH ×4 (05:30→21:43)
--- NOTE | 2017-02-07 05:45 | RADRPT ---
PROCEDURE: CT angiogram chest. CLINICAL INDICATION: Shortness of breath. TECHNIQUE: CT angiogram of the chest was performed utilizing axial images with reconstructions in sagittal and coronal planes following the intravenous administration of 125 cc Omnipaque 350 contras t. The administered radiation dose is CTDI 13.9 mGy, DLP 477 mGy-cm. COMPARISON: 02/04/2017 FINDINGS: Pulmonary angiogram: The pulmonary arteries are adequately opacified to the level of the segmental pulmonary artery branches. There is minimal respiratory motion artifact. There is no evidence of p ulmonary embolus. Aortogram: There is no evidence of aortic dissection or aneurysm. Major branches of the aorta are patent. Chest: There are small to moderate bilateral pleural effusions. There is complete atelectasis of the left lower lobe and partial atelectasis of the right lower lobe. Some mosaic ground-glass opacities are seen within the perihilar regions of the aerated lungs, predominately in the upper lobes. The trach eobronchial tree is unremarkable. There is mild cardiomegaly. Coronary artery calcifications are noted. No mediastinal or hilar kisha opathy is identified. Visualized Upper abdomen: Please refer to the separately dictated examination of the abdomen. Osseous structures: Unremarkable. IMPRESSION: No evidence of pulmonary embolus. Bilateral pleural effusions with associated atelectasis. Predominantly perihilar ground-glass opacities likely due to mild pulmonary edema although numerous other entities can have an identical appearance. Findings are similar to the prior. RPTAT: HIKT .Lake Estrella MD, MD Date Time Electronically viewed and signed by .Lake Estrella MD, on 02/07/2017 05:45 .T/
[2017-02-07 05:50] LABS: INR 1.24; PROTIME 15.7 Sec (12.2-14.2); PT RATIO 1.2
[2017-02-07 05:51] LABS: PARTIAL THROMBOPLASTIN TIME 40.6 Sec (25.0-35.0)
--- NOTE | 2017-02-07 05:51 | RADRPT ---
PROCEDURE: CT abdomen and pelvis without intravenous contrast. CLINICAL INDICATION: Pain. TECHNIQUE: CT of the abdomen/pelvis was performed utilizing axial images with reconstructions in s agittal and coronal planes. The administered radiation dose is CTDI 17 mGy, DLP 945 mGy-cm. COMPARISON: No pertinent prior examinations were submitted for comparison. FINDINGS: Visualized Chest: Please refer to the separately dictated examination of the chest. Abdomen: The spleen, pancreas, and adrenal glands are unremarkable. The liver is markedly, diffusely decre ased in attenuation, compatible with hepatic steatosis. Stones are noted within the gallbladder. Th ere is gallbladder wall thickening. The gallbladder is without abnormal distension. The kidneys are without hydronephrosis. No definite urinary calculi are seen. There is dense contrast within the stomach and some of the duodenum. There is diffuse thickening of the small bowel. Previous partial resection of the sigmoid colon is noted with left lower quadrant colostomy formation. A recent midline ventral abdominal incision is noted. Moderate edema is noted throughout the mesentery. There is no evidence of intra-abdominal adenopathy. There is mild intra-abdominal ascites. Anasarc a is noted. Pelvis: No pelvic adenopathy is identified. There is a small amount of ascites within the pelvis. The prost ate and bladder are unremarkable. Osseous structures: Unremarkable. IMPRESSION: Anasarca and mild intra-abdominal ascites as well as mesenteric edema. Diffuse thickening of the small bowel and colon may be related to the ascites although enterocolitis could have an identical appearance. Marked hepatic steatosis. Cholelithiasis. Gallbladder wall thickening is likely secondary to liver disease and / or ascites. RPTAT: HIKT .Lake Estrella MD, Date Time Electronically viewed and signed by .Lake Estrella MD, on 02/07/2017 05:51 .T/
[2017-02-07 05:52] LABS: ALBUMIN 2.3 g/dl (3.3-4.9); ALBUMIN/GLOBULIN RATIO 0.88; BILIRUBIN,INDIRECT 0.2 mg/dl (0-1.1); BILIRUBIN,TOTAL 0.2 mg/dl (0.2-1.3); CALCIUM 7.6 mg/dl (8.4-10.2); CREATININE 0.92 mg/dl (0.61-1.24); MAGNESIUM 1.9 mg/dl (1.7-2.5); POTASSIUM 3.8 mmol/L (3.5-5.1); TOTAL PROTEIN 4.9 g/dl (6.1-8.1)
[2017-02-07 06:09] LABS: ALBUMIN 2.1 g/dl (3.3-4.9); CALCIUM 7.4 mg/dl (8.4-10.2); CREATININE 0.9 mg/dl (0.61-1.24); PHOSPHORUS 3.9 mg/dl (2.5-4.9)
[2017-02-07 07:41] LABS: ABNORMAL IP MESSAGE 1; BASOPHILS % 0.1 % (0.0-2.0); EOSINOPHILS # 0.1 10^3/ul (0.0-0.5); EOSINOPHILS % 0.5 % (0.0-7.0); HEMATOCRIT 22.6 % (42.0-52.0); HEMOGLOBIN 7.1 g/dl (14.0-18.0); LYMPHOCYTES # 0.6 10^3/ul (0.8-2.9); LYMPHOCYTES % 5.2 % (15.0-51.0); MEAN CORPUSCULAR HEMOGLOBIN 28.4 pg (29.0-33.0); MEAN CORPUSCULAR HGB CONC 31.4 g/dl (32.0-37.0); MEAN CORPUSCULAR VOLUME 90.4 fl (82.0-101.0); MEAN PLATELET VOLUME 13.7 fl (7.4-10.4); MONOCYTE # 0.6 10^3/ul (0.3-0.9); MONOCYTES % 4.8 % (0.0-11.0); NEUTROPHIL # 10.7 10^3/ul (1.6-7.5); NEUTROPHILS % 87.8 % (39.0-77.0); PLATELET COUNT 118 10^3/UL (140-415); RED CELL DISTRIBUTION WIDTH 15.8 % (11.5-14.5); WHITE BLOOD COUNT 12.2 10^3/ul (4.8-10.8)
[2017-02-07 07:44] LABS: ADD SCAN DIFF YES
[2017-02-07] MEDS: FENTAnyl (DRIP) 1000 mcg/100mL 100 ML IV SCH (08:05)
[2017-02-07] MEDS: D5W-0.45 NACL + KCL 40 MEQ 1,000 ML IV SCH ×2 (08:05→19:20)
--- NOTE | 2017-02-07 09:20 | PN ---
Date/Time of Note Date/Time of Note DATE: 02/07/17 TIME: 09:16 Assessment/Plan VTE Prophylaxis VTE Prophylaxis Intervention: SCD's VTE Contraindication Reason: thrombocytopenia Lines/Catheters IV Catheter Type (from Nrsg): Peripheral IV Urinary Cath still in place: Yes Reason Cath still needed: other (indicate) Assessment/Plan Assessment/Plan IMPRESSION 1. Perforated sigmoid colon 2/2 Severe Crohn's colitis S/p Urgent Open Cronin's procedure with end colostomy, liver biopsy and abdominal lavage 02/01/17 2. Acute Resp failure / ?ARDS, Vent dependent 3. Chronic Crohn's disease with acute colitis and diarrhea: improved Cultures growing ecoli / proteus / enterococcus 4. Persistent hypocalcemia and hypokalemia 5. Thrombocytopenia: ?HIT 6. SIRS with lactic acidosis 2/2 severe colitis 7. Systemic shock likely hypovolemic from third spacing with hypoalbuminemia : improved, now off pressors 8. Hx of heavy alcohol and tobacco use just until admission 9. Probable underlying COPD and Cirrhosis based on hx which explains hypoalbuminemia PLAN: * Today is post op day #6 * Continue vent mgt / abx * Continue gentle fluid hydration while NPO * NGT remains to LIS still with good output / ?reglan * Continue restraints * Continue current ICU post op care and Mgt * Replace electrolytes as needed * PRN pain control/ antiemetics/ antipyretics/ supportive care CRITICAL CARE TIME: >35 mins Subjective 24 Hr Interval Summary Free Text/Dictation Patient seen and examined. Intubated and sedated for comfort, but no pressor support. requiring restraints spoke at bedside for a long time with parents Exam/Review of Systems Vital Signs Vitals Vital Signs Date Time Temp Pulse Resp B/P Pulse Ox O2 Delivery O2 Flow Rate FiO2 02/07/17 08:00 93 02/07/17 06:00 24 111/71 99 02/07/17 05:30 Mechanical Ventilator 02/07/17 05:15 45 02/07/17 04:00 98.9 Intake and Output 02/06/17 02/06/17 02/07/17 15:00 23:00 07:00 Intake Total 450 ml 2083.480 ml 1340.812 ml Output Total 765 ml 3315 ml 1325 ml Balance -315 ml -1231.520 ml 15.812 ml Results Result Diagram: 02/07/17 0445 02/07/17 0445 Results 24 hrs Laboratory Tests Test 02/06/17 13:00 02/06/17 22:20 02/07/17 04:45 Blood Gas Specimen Source Blood arterial Blood arterial Arterial Blood Date Drawn 02/06/2017 1:10:51 PM 02/06/2017 10:10:26 PM Arterial Blood pH (Temp corrected) 7.502 H 7.466 H Arterial Blood pCO2 (Temp correct) 30.4 L 32.4 L Arterial Blood pO2 (Temp corrected) 58.2 L 152.6 H Arterial Blood HCO3 23.3 22.8 Arterial Blood Base Excess 0.5 -0.6 Arterial Blood Oxygen Saturation 89.1 L 98.1 H Raffy Test ACCEPTAB ACCEPTAB Arterial Blood Gas Puncture Site Right Radial Right Radial Arterial Blood Carboxyhemoglobin 0.4 0.4 Arterial Blood Methemoglobin 0.2 0.5 Blood Gas A-a O2 Differential 156.0 H 203.5 H Oxyhemoglobin Percent 88.6 L 97.2 Total Hemoglobin 8.9 L 8.0 L Blood Gas Temperature 37.0 37.0 Blood Gas Respiration Rate 16.0 12.0 Blood Gas Actual Respiration Rate 22 19 Blood Gas Modality VENT - AC VENT - AC FiO2 35.0 55.0 Blood Gas Tidal Volume 650.0 650.0 Blood Gas Low PEEP Setting 5.0 5.0 Blood Gas Critical Value Read Back Ayesha ISBELL RN Blood Gas Notified Whom RDIX UP Blood Gas Notified Time 02/06/2017 1:21:05 PM 02/06/2017 10:25:30 PM White Blood Count 12.2 H Red Blood Count 2.50 L Hemoglobin 7.1 L Hematocrit 22.6 L Mean Corpuscular Volume 90.4 Mean Corpuscular Hemoglobin 28.4 L Mean Corpuscular Hemoglobin Concent 31.4 L Red Cell Distribution Width 15.8 H Platelet Count 118 #L Mean Platelet Volume 13.7 H Neutrophils % 87.8 H Lymphocytes % 5.2 L Monocytes % 4.8 Eosinophils % 0.5 Basophils % 0.1 Nucleated Red Blood Cells % 0.0 Neutrophils # 10.7 H Lymphocytes # 0.6 L Monocytes # 0.6 Eosinophils # 0.1 Basophils # 0.0 Nucleated Red Blood Cells # 0.0 Prothrombin Time 15.7 H Prothrombin Time Ratio 1.2 INR International Normalized Ratio 1.24 Activated Partial Thromboplast Time 40.6 H Sodium Level 145 H Potassium Level 4.0 Chloride Level 114 H Carbon Dioxide Level 24 Anion Gap 11 Blood Urea Nitrogen 20 Creatinine 0.90 Glucose Level 96 Lactic Acid Level 1.4 Calcium Level 7.4 L Phosphorus Level 3.9 Magnesium Level 1.9 Total Bilirubin 0.2 Direct Bilirubin 0.00 Indirect Bilirubin 0.2 Aspartate Amino Transf (AST/SGOT) 19 Alanine Aminotransferase (ALT/SGPT) 27 Alkaline Phosphatase 52 B-Type Natriuretic Peptide 1570 H Total Protein 4.9 L Albumin 2.1 L Globulin 2.60 Albumin/Globulin Ratio 0.88 Lipase 191 Medications Medications Current Medications Ondansetron HCl (Zofran Inj) 4 mg Q6H PRN IV NAUSEA AND/OR VOMITING; Start at 03:30 Metoclopramide HCl (Reglan) 10 mg Q6H IV Last administered on 02/07/17 05:30; Admin Dose 10 MG; Start 02/01/17 at 03:30 Hydromorphone HCl (Dilaudid) 1 mg Q4H PRN IV pain Last administered on 00:47; Admin Dose 1 MG; Start 02/01/17 at 03:30 Pantoprazole (Protonix Iv) 40 mg DAILY@06 IV Last administered on 02/07/17 05: 30; Admin Dose 40 MG; Start 02/01/17 at 06:00 Acetaminophen/ Hydrocodone Bitart ([place] (5/325)) 1 tab Q4H PRN PO PAIN LEVEL 4 -7; Start 02/01/17 at 20:30 Acetaminophen/ Hydrocodone Bitart ([place] (5/325)) 2 tab Q4H PRN PO PAIN LEVEL 7 -10; Start 02/01/17 at 20:30 Hydromorphone HCl (Dilaudid) 0.5 mg Q2 PRN IV PAIN; Start 02/01/17 at 20:30 Hydromorphone HCl (Dilaudid) 1 mg Q2 PRN IV PAIN Last administered on 11:57; Admin Dose 1 MG; Start 02/01/17 at 20:30 Docusate Sodium (Colace) 100 mg BID PRN PO CONSTIPATION; Start 02/01/17 at 20: 30 Bisacodyl (Dulcolax Supp) 10 mg BID PRN [place] CONSTIPATION; Start 02/01/17 at 20: 30 Sodium Biphosphate/ Sodium Phosphate (Fleet Enema) 133 ml BID PRN [place] CONSTIPATION; Start 02/01/17 at 20:30 Enoxaparin Sodium 40 mg 40 mg DAILY SC Last administered on 02/02/17 08:38; Admin Dose 40 MG; Start 02/02/17 at 09:00; Status Future Hold Propofol (Diprivan) 100 ml @ 2.202 mls/ hr Q12H IV Last administered on 08:04; Admin Dose 17.616 MLS/HR; Start 02/01/17 at 23:30 Ketorolac Tromethamine 30 mg 30 mg Q6H PRN IV PAIN; Start 02/02/17 at 09:30 Fentanyl 100 ml @ 2.5 mls/hr TITRATE IV Last administered on 02/07/17 08:05; Admin Dose 2.5 MLS/HR; Start 02/04/17 at 11:00 Metronidazole 100 ml @ 100 mls/hr Q8 IVPB Last administered on 02/07/17 05:30 ; Admin Dose 100 MLS/HR; Start 02/04/17 at 15:00 Vancomycin HCl 250 ml @ 125 mls/hr Q12H IVPB Last administered on 02/07/17 05 :29; Admin Dose 125 MLS/HR; Start 02/05/17 at 06:00 Meropenem (Merrem 500 Mg/ 100 ml (Pmx)) 100 ml @ 200 mls/hr Q8 IVPB Last administered on 02/07/17 05:29; Admin Dose 200 MLS/HR; Start 02/05/17 at 22:00 Acetaminophen 650 mg 650 mg Q4H PRN GTB PAIN AND OR ELEVATED TEMP Last administered on 02/06/17 05:06; Admin Dose 650 MG; Start 02/05/17 at 18:30 Sodium Chloride 1,000 ml @ 100 mls/hr Q10H IV Last administered on 02/06/17 08:50; Admin Dose 100 MLS/HR; Start 02/06/17 at 08:30; Status Future Hold Norepinephrine 16 mg/Dextrose 500 ml @ 1.87 mls/hr TITRATE IV ; Start 02/06/17 at 12:00 Potassium Chloride/Dextrose/ Sod Cl (D5-1/2ns + KCl 40 Meq) 1,000 ml @ 60 mls/ hr [id number] IV Last administered on 02/07/17t 08:05; Admin Dose 60 MLS/HR; Start 02/06/17 at 10:00 Procedures Procedures PROCEDURE: XR Chest. CLINICAL INDICATION: Respiratory failure TECHNIQUE: An AP view of the chest was obtained. COMPARISON: Chest x-ray dated 02/05/2017 FINDINGS: The endotracheal tube tip is approximately 3.5 cm above the hira. The tip of the enteric tube extends below the left diaphragm. There is prominence of the central pulmonary vascular markings with small bilateral pleural effusions. No focal airspace opacification or pneumothorax is seen. The cardiomediastinal silhouette is within normal limits for size. The osseous structures are unremarkable. IMPRESSION: 1. Findings suggestive of pulmonary vascular congestion with small bilateral pleural effusions. Lung aeration is significantly improved when compared to the prior examination. 2. Tubes and lines, as described above. RPTAT: HH .Ignacia Maxwell MD, MD Date Time Electronically viewed and signed by .Ignacia Maxwell MD, MD on 02/06/2017 10 :11 .G/ CC: RAMON DOUGLAS MD, [facility] Feb 07, 2017 09:20
--- NOTE | 2017-02-07 09:35 | PN ---
DATE: 02/07/2017 HEMATOLOGY PROGRESS NOTE SUBJECTIVE: There has been no unusual bruising or bleeding. The patient remains sedated and on the ventilator. OBJECTIVE: VITAL SIGNS: Temperature 98.9 axillary, pulse 97 per minute, respirations 24, blood pressure 111/71 , pulse oximetry 99% on ventilator with FIO2 of 45. SKIN: No ecchymosis, no petechiae or rashes. HEENT: No mucosal lesions. No scleral icterus. NG tube in place, and endotracheal tube in place. CHEST: Clear to auscultation and percussion. No rhonchi, wheezes, rales, or rubs. NODES: No palpable lymphadenopathy. ABDOMEN: No masses or ascites. Stoma is present. EXTREMITIES: No clubbing, edema, or cyanosis. No palpable cords or Homans sign. LABORATORY DATA: White count 12,200, hemoglobin 7.1, hematocrit 22.6, and platelet count is 118,000 . Sodium 145, potassium 4, creatinine 0.90, BUN 20. ASSESSMENT: 1. Perforation of sigmoid colon. 2. Inflammatory bowel disease. 3. Thrombocytopenia, resolving. 4. Anemia. PLAN: The patient will receive 1 unit of packed red blood cells today. No other hematologic recomm endations at this time. Dictated By: FEDERICO SAHA MD SR/YAN Conf#: [id number] DID#: [id number]
--- NOTE | 2017-02-07 10:20 | RADRPT ---
PROCEDURE: XR Chest. CLINICAL INDICATION: Assess ventilator patient. TECHNIQUE: PA and Lateral views of the chest were obtained. COMPARISON: Chest x-ray 02/06/2017 06:18 a.m. FINDINGS: The soft tissues are normal. The bony elements are normal. The left ventricle is enlarged. The ca rdiomediastinal silhouette and hilar structures are normal. The pulmonary vasculature is equilibrate d could reflect supine positioning. There is a left-sided aorta. There are asymmetric perihilar and basilar infiltrates which are more extensive in the left lower lobe. The left diaphragm is silhouet ryder. A left pleural effusion is noted. An NG tube passes through the esophagus into the stomach. The left costophrenic angle is not visualized. IMPRESSION: 1. Cardiomegaly with asymmetric perihilar and basilar infiltrates greater in the left lower lobe. A pneumonia with mild pain venous obstruction might present this fashion. Pulmonary vascular congesti on worsen when compared to 02/06/2017. 2. A left pleural effusion is suspected. 3. The endotracheal tube is well-positioned T3-T4. 4. Satisfactory positioning of an NG tube distal to the GE junction. RPTAT:AAJJ Physician Rukhsana Date Time Electronically viewed and signed by Physician Rukhsana on 02/07/2017 10:20 EMIGDIO/
--- NOTE | 2017-02-07 10:30 | PN ---
Date/Time of Note Date/Time of Note DATE: 02/07/17 TIME: 10:26 Assessment/Plan Lines/Catheters IV Catheter Type (from Nrs): Peripheral IV Zeng in Place (from [email or web address] Yes Assessment/Plan Assessment/Plan [facility] Progress Note Date of Service: 02/07/17 Today's Impression & Plan: Overall stable and remains dependent on the Vent. No obvious major post operative complication. No major wound problems. Cannot explain vent dependence. PE was evaluated yesterday with Chest CT angio and no evidence found. CT abd/pelvis also did not show actionable findings (no abscess; bowel thickening somewhat expected). We still do not quite understand why he is so dependent on the vent. No indication for acute surgical intervention. Low Hg noted, but still above 7 and no evidence of obvious bleeding. I respectfully cancelled the order for blood transfusion for now and asked the team to maintain a multidisciplinary stance around blood product transfusion decisions. D/w team. With above assessment, I've recommended the following for today: 1. Cont current cares 2. Labs in am 3. May need parenteral nutrition if unable to feed by Wednesday 4. 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 Lasix today 6. Labs in am 7. Increase activity 8. Increase ICS 9. Keep in ICU Thank you again for your great care of this very pleasant patient and wonderful family. If there are any questions, please feel free to call me at [phone]. TOTAL VISIT TIME: 20 minutes of which more than half was spent in [id number] discussion with the patient, possibly including family, as well as coordination of care between multiple physicians and providers. Disclaimer: Inadvertent spelling or grammatical errors are likely due to EHR/ dictation software use and do not reflect on the overall quality of patient care. Updated Clinical Summary: a very pleasant 46-year-old gentleman with history of Crohn's disease as well as prior surgery for anal fistula approximately 5 years ago, and a torn meniscus repair on the left knee, presenting with abdominal pain associated with a few weeks' duration of diarrhea. S/p an otherwise uncomplicated diagnostic laparoscopy was converted first to hand assist and then to open exploration when perforated sigmoid colon was found and it was resected with a Deena type procedure and end colostomy as well as core needle liver biopsy, segment 5, due to presence of fatty liver disease, lysis of adhesions, and abdominal lavage on 02/01/17. Failed to wean off the vent through 02/06/17. PE was evaluated 02/07/[address] angio and no evidence found. CT abd/pelvis also did not show actionable findings (no abscess; bowel thickening somewhat expected). COMORBIDITIES: 1. Crohn disease with perforation of sigmoid colon and sepsis. S/p an otherwise uncomplicated diagnostic laparoscopy was converted first to hand assist and then to open exploration when perforated sigmoid colon was found and it was resected with a Deena type procedure and end colostomy as well as core needle liver biopsy, segment 5, due to presence of fatty liver disease, lysis of adhesions, and abdominal lavage on 02/01/17. 2. Repair of a fistula approximately 5 years ago. 3. Torn meniscus on the left knee status post repair. Subjective: No major events or complaints overnight; remains intubated and failed weaning trial again; no abd pain and under control with medications; no n/v/d; no sob or cp; + flatus; + BM; - activity Objective: Vitals: See below Exam: GENERAL: On exam, the patient was laying in bed and appeared to be comfortable and in no acute distress. ABDOMEN: Soft, nontender and nondistended. Incision dressings are clean, dry and intact without any evidence of obvious underlying erythema, edema, discharge , or hernia. Surgery drain ss. Ostomy pink and viable; some air and stool in the bag. There are no peritoneal signs or guarding. NG bilious. SKIN: Skin appears to be pink and feels warm to touch. NEUROLOGIC: Patient is arousable, and follows commands appropriately. Exam/Review of Systems Vital Signs Vitals Vital Signs Date Time Temp Pulse Resp B/P Pulse Ox O2 Delivery O2 Flow Rate FiO2 02/07/17 10:00 86 16 96/60 100 02/07/17 08:00 99.9 02/07/17 05:30 Mechanical Ventilator 02/07/17 05:15 45 Intake and Output 02/06/17 02/06/17 02/07/17 15:00 23:00 07:00 Intake Total 450 ml 2083.480 ml 1340.812 ml Output Total 765 ml 3315 ml 1325 ml Balance -315 ml -1231.520 ml 15.812 ml Results Result Diagram: 02/07/17 0445 02/07/17 0445 TI HILTON M.D. Feb 07, 2017 10:30
[2017-02-07] MEDS: FUROSEMIDE 20 MG INJ IV SCH ×3 (10:40→18:10)
[2017-02-07] MEDS: SALMETEROL/FLUTICASONE 250/50 INHA INH SCH ×2 (11:00→21:44)
--- NOTE | 2017-02-07 12:01 | PN ---
Date/Time of Note Date/Time of Note DATE: 02/07/17 TIME: 11:49 Assessment/Plan VTE Prophylaxis VTE Prophylaxis Intervention: SCD's Lines/Catheters IV [facility] (from [facility] Peripheral IV Urinary Cath still in place: Yes Reason Cath still needed: urinary retention Assessment/Plan Assessment/Plan Perforated sigmoid colon * Laparoscopic exploration,open sigmoid colectomy with Deena end colostomy with liver biopsy segment V * h/o Crohn's disease * Respiratory failure stable on ventilator * Thrombocytopenia Plan: * continue present management * Will evaluate treatment for Crohn's once recovering Subjective 24 Hr Interval Summary Free Text/Dictation * Course reviewed with RN * Patient seen and examined * Still orally intubated,on ventilator * Hemoglobin 7.1 Exam/Review of Systems Vital Signs Vitals Vital Signs Date Time Temp Pulse Resp B/P Pulse Ox O2 Delivery O2 Flow Rate FiO2 02/07/17 10:00 86 16 96/60 100 02/07/17 08:00 99.9 02/07/17 05:30 Mechanical Ventilator 02/07/17 05:15 45 Intake and Output 02/06/17 02/06/17 02/07/17 15:00 23:00 07:00 Intake Total 450 ml 2083.480 ml 1340.812 ml Output Total 765 ml 3315 ml 1375 ml Balance -315 ml -1231.520 ml -34.188 ml Exam Constitutional: frail, other (orally intubated) Head: normocephalic Eyes: nl sclera ENMT: intubated, other (ng tube in placed) Neck: non-tender, supple Respiratory: clear to auscultation, diminished breath sounds, normal air movement Cardiovascular: nl pulses, regular rate and rhythm Gastrointestinal: nl liver, spleen, non-tender, soft Musculoskeletal: nl extremities to inspection Extremities: normal pulses Skin: nl turgor, rash or lesions Lymph: nl lymph nodes Results Result Diagram: 02/07/17 0445 02/07/17 0445 Results 24 hrs Laboratory Tests Test 02/06/17 13:00 02/06/17 22:20 02/07/17 04:45 Blood Gas Specimen Source Blood arterial Blood arterial Arterial Blood Date Drawn 02/06/2017 1:10:51 PM 02/06/2017 10:10:26 PM Arterial Blood pH (Temp corrected) 7.502 H 7.466 H Arterial Blood pCO2 (Temp correct) 30.4 L 32.4 L Arterial Blood pO2 (Temp corrected) 58.2 L 152.6 H Arterial Blood HCO3 23.3 22.8 Arterial Blood Base Excess 0.5 -0.6 Arterial Blood Oxygen Saturation 89.1 L 98.1 H Raffy Test ACCEPTAB ACCEPTAB Arterial Blood Gas Puncture Site Right Radial Right Radial Arterial Blood Carboxyhemoglobin 0.4 0.4 Arterial Blood Methemoglobin 0.2 0.5 Blood Gas A-a O2 Differential 156.0 H 203.5 H Oxyhemoglobin Percent 88.6 L 97.2 Total Hemoglobin 8.9 L 8.0 L Blood Gas Temperature 37.0 37.0 Blood Gas Respiration Rate 16.0 12.0 Blood Gas Actual Respiration Rate 22 19 Blood Gas Modality VENT - AC VENT - AC FiO2 35.0 55.0 Blood Gas Tidal Volume 650.0 650.0 Blood Gas Low PEEP Setting 5.0 5.0 Blood Gas Critical Value Read Back Ayesha ISBELL RN Blood Gas Notified Whom RDIX UP Blood Gas Notified Time 02/06/2017 1:21:05 PM 02/06/2017 10:25:30 PM White Blood Count 12.2 H Red Blood Count 2.50 L Hemoglobin 7.1 L Hematocrit 22.6 L Mean Corpuscular Volume 90.4 Mean Corpuscular Hemoglobin 28.4 L Mean Corpuscular Hemoglobin Concent 31.4 L Red Cell Distribution Width 15.8 H Platelet Count 118 #L Mean Platelet Volume 13.7 H Neutrophils % 87.8 H Lymphocytes % 5.2 L Monocytes % 4.8 Eosinophils % 0.5 Basophils % 0.1 Nucleated Red Blood Cells % 0.0 Neutrophils # 10.7 H Lymphocytes # 0.6 L Monocytes # 0.6 Eosinophils # 0.1 Basophils # 0.0 Nucleated Red Blood Cells # 0.0 Prothrombin Time 15.7 H Prothrombin Time Ratio 1.2 INR International Normalized Ratio 1.24 Activated Partial Thromboplast Time 40.6 H Sodium Level 145 H Potassium Level 4.0 Chloride Level 114 H Carbon Dioxide Level 24 Anion Gap 11 Blood Urea Nitrogen 20 Creatinine 0.90 Glucose Level 96 Lactic Acid Level 1.4 Calcium Level 7.4 L Phosphorus Level 3.9 Magnesium Level 1.9 Total Bilirubin 0.2 Direct Bilirubin 0.00 Indirect Bilirubin 0.2 Aspartate Amino Transf (AST/SGOT) 19 Alanine Aminotransferase (ALT/SGPT) 27 Alkaline Phosphatase 52 B-Type Natriuretic Peptide 1570 H Total Protein 4.9 L Albumin 2.1 L Globulin 2.60 Albumin/Globulin Ratio 0.88 Lipase 191 Medications Medications Current Medications Ondansetron HCl (Zofran Inj) 4 mg Q6H PRN IV NAUSEA AND/OR VOMITING; Start at 03:30 Metoclopramide HCl (Reglan) 10 mg Q6H IV Last administered on 02/07/17 10:40; Admin Dose 10 MG; Start 02/01/17 at 03:30 Hydromorphone HCl (Dilaudid) 1 mg Q4H PRN IV pain Last administered on 00:47; Admin Dose 1 MG; Start 02/01/17 at 03:30 Pantoprazole (Protonix Iv) 40 mg DAILY@06 IV Last administered on 02/07/17 05: 30; Admin Dose 40 MG; Start 02/01/17 at 06:00 Acetaminophen/ Hydrocodone Bitart ([place] (5/325)) 1 tab Q4H PRN PO PAIN LEVEL 4 -7; Start 02/01/17 at 20:30 Acetaminophen/ Hydrocodone Bitart ([place] (5/325)) 2 tab Q4H PRN PO PAIN LEVEL 7 -10; Start 02/01/17 at 20:30 Hydromorphone HCl (Dilaudid) 0.5 mg Q2 PRN IV PAIN; Start 02/01/17 at 20:30 Hydromorphone HCl (Dilaudid) 1 mg Q2 PRN IV PAIN Last administered on 11:57; Admin Dose 1 MG; Start 02/01/17 at 20:30 Docusate Sodium (Colace) 100 mg BID PRN PO CONSTIPATION; Start 02/01/17 at 20: 30 Bisacodyl (Dulcolax Supp) 10 mg BID PRN [place] CONSTIPATION; Start 02/01/17 at 20: 30 Sodium Biphosphate/ Sodium Phosphate (Fleet Enema) 133 ml BID PRN [place] CONSTIPATION; Start 02/01/17 at 20:30 Enoxaparin Sodium 40 mg 40 mg DAILY SC Last administered on 02/02/17 08:38; Admin Dose 40 MG; Start 02/02/17 at 09:00; Status Future Hold Propofol (Diprivan) 100 ml @ 2.202 mls/ hr Q12H IV Last administered on 08:04; Admin Dose 17.616 MLS/HR; Start 02/01/17 at 23:30 Ketorolac Tromethamine 30 mg 30 mg Q6H PRN IV PAIN; Start 02/02/17 at 09:30 Fentanyl 100 ml @ 2.5 mls/hr TITRATE IV Last administered on 02/07/17 08:05; Admin Dose 2.5 MLS/HR; Start 02/04/17 at 11:00 Metronidazole 100 ml @ 100 mls/hr Q8 IVPB Last administered on 02/07/17 05:30 ; Admin Dose 100 MLS/HR; Start 02/04/17 at 15:00 Vancomycin HCl 250 ml @ 125 mls/hr Q12H IVPB Last administered on 02/07/17 05 :29; Admin Dose 125 MLS/HR; Start 02/05/17 at 06:00 Meropenem (Merrem 500 Mg/ 100 ml (Pmx)) 100 ml @ 200 mls/hr Q8 IVPB Last administered on 02/07/17 05:29; Admin Dose 200 MLS/HR; Start 02/05/17 at 22:00 Acetaminophen 650 mg 650 mg Q4H PRN GTB PAIN AND OR ELEVATED TEMP Last administered on 02/06/17 05:06; Admin Dose 650 MG; Start 02/05/17 at 18:30 Sodium Chloride 1,000 ml @ 100 mls/hr Q10H IV Last administered on 02/06/17 08:50; Admin Dose 100 MLS/HR; Start 02/06/17 at 08:30; Status Future Hold Norepinephrine 16 mg/Dextrose 500 ml @ 1.87 mls/hr TITRATE IV ; Start 02/06/17 at 12:00 Potassium Chloride/Dextrose/ Sod Cl (D5-1/2ns + KCl 40 Meq) 1,000 ml @ 60 mls/ hr [id number] IV Last administered on 02/07/17 08:05; Admin Dose 60 MLS/HR; Start 02/06/17 at 10:00 Salmeterol Xinafoate/ Fluticasone (Advair 250/50 Diskus) 1 inh BID INH ; Start 02/07/17 at 11:00 Furosemide (Lasix) 20 mg DAILY IV Last administered on 02/07/17t 10:40; Admin Dose 20 MG; Start 02/07/17 at 10:00 Furosemide (Lasix) 20 mg Q6 IV ; Start 02/07/17 at 12:00; Stop 02/08/17 at 06:01 SANDRA DAVIS MD Feb 07, 2017 11:59
--- NOTE | 2017-02-07 12:16 | CONS ---
Date/Time of Note Date/Time of Note DATE: 02/07/17 TIME: 12:12 Consult Date/Type/Reason Admit Date/Time Feb 01, 2017 at 03:10 Initial Consult Date 02/02/17 Type of Consultation: Pulm/CCM Ordering Provider: VINCE PADGETT Subjective CTA negative for PE. Looks better this am. s/p diuresis. Objective Vital Signs Date Time Temp Pulse Resp B/P Pulse Ox O2 Delivery O2 Flow Rate FiO2 02/07/17 10:00 86 16 96/60 100 02/07/17 08:00 99.9 02/07/17 05:30 Mechanical Ventilator 02/07/17 05:15 45 Intake and Output 02/06/17 02/06/17 02/07/17 15:00 23:00 07:00 Intake Total 450 ml 2083.480 ml 1340.812 ml Output Total 765 ml 3315 ml 1375 ml Balance -315 ml -1231.520 ml -34.188 ml Exam HEENT: Pupils equal, round, and reactive to light. CARDIAC: S1, S2, tachycardia. CHEST: Diminished air entry bilaterally. ABDOMEN: Mildly distended. No bowel sounds. EXTREMITIES: No cyanosis, clubbing or edema. Results/Medications Result Diagram: 02/07/17 0445 02/07/17 0445 Results 24 hrs Laboratory Tests Test 02/06/17 13:00 02/06/17 22:20 02/07/17 04:45 Blood Gas Specimen Source Blood arterial Blood arterial Arterial Blood Date Drawn 02/06/2017 1:10:51 PM 02/06/2017 10:10:26 PM Arterial Blood pH (Temp corrected) 7.502 H 7.466 H Arterial Blood pCO2 (Temp correct) 30.4 L 32.4 L Arterial Blood pO2 (Temp corrected) 58.2 L 152.6 H Arterial Blood HCO3 23.3 22.8 Arterial Blood Base Excess 0.5 -0.6 Arterial Blood Oxygen Saturation 89.1 L 98.1 H Raffy Test ACCEPTAB ACCEPTAB Arterial Blood Gas Puncture Site Right Radial Right Radial Arterial Blood Carboxyhemoglobin 0.4 0.4 Arterial Blood Methemoglobin 0.2 0.5 Blood Gas A-a O2 Differential 156.0 H 203.5 H Oxyhemoglobin Percent 88.6 L 97.2 Total Hemoglobin 8.9 L 8.0 L Blood Gas Temperature 37.0 37.0 Blood Gas Respiration Rate 16.0 12.0 Blood Gas Actual Respiration Rate 22 19 Blood Gas Modality VENT - AC VENT - AC FiO2 35.0 55.0 Blood Gas Tidal Volume 650.0 650.0 Blood Gas Low PEEP Setting 5.0 5.0 Blood Gas Critical Value Read Back Ayesha ISBELL RN Blood Gas Notified Whom RDIX UP Blood Gas Notified Time 02/06/2017 1:21:05 PM 02/06/2017 10:25:30 PM White Blood Count 12.2 H Red Blood Count 2.50 L Hemoglobin 7.1 L Hematocrit 22.6 L Mean Corpuscular Volume 90.4 Mean Corpuscular Hemoglobin 28.4 L Mean Corpuscular Hemoglobin Concent 31.4 L Red Cell Distribution Width 15.8 H Platelet Count 118 #L Mean Platelet Volume 13.7 H Neutrophils % 87.8 H Lymphocytes % 5.2 L Monocytes % 4.8 Eosinophils % 0.5 Basophils % 0.1 Nucleated Red Blood Cells % 0.0 Neutrophils # 10.7 H Lymphocytes # 0.6 L Monocytes # 0.6 Eosinophils # 0.1 Basophils # 0.0 Nucleated Red Blood Cells # 0.0 Prothrombin Time 15.7 H Prothrombin Time Ratio 1.2 INR International Normalized Ratio 1.24 Activated Partial Thromboplast Time 40.6 H Sodium Level 145 H Potassium Level 4.0 Chloride Level 114 H Carbon Dioxide Level 24 Anion Gap 11 Blood Urea Nitrogen 20 Creatinine 0.90 Glucose Level 96 Lactic Acid Level 1.4 Calcium Level 7.4 L Phosphorus Level 3.9 Magnesium Level 1.9 Total Bilirubin 0.2 Direct Bilirubin 0.00 Indirect Bilirubin 0.2 Aspartate Amino Transf (AST/SGOT) 19 Alanine Aminotransferase (ALT/SGPT) 27 Alkaline Phosphatase 52 B-Type Natriuretic Peptide 1570 H Total Protein 4.9 L Albumin 2.1 L Globulin 2.60 Albumin/Globulin Ratio 0.88 Lipase 191 Medications Current Medications Ondansetron HCl (Zofran Inj) 4 mg Q6H PRN IV NAUSEA AND/OR VOMITING; Start at 03:30 Metoclopramide HCl (Reglan) 10 mg Q6H IV Last administered on 02/07/17t 10:40; Admin Dose 10 MG; Start 02/01/17 at 03:30 Hydromorphone HCl (Dilaudid) 1 mg Q4H PRN IV pain Last administered on 00:47; Admin Dose 1 MG; Start 02/01/17 at 03:30 Pantoprazole (Protonix Iv) 40 mg DAILY@06 IV Last administered on 02/07/17 05: 30; Admin Dose 40 MG; Start 02/01/17 at 06:00 Acetaminophen/ Hydrocodone Bitart ([place] (5/325)) 1 tab Q4H PRN PO PAIN LEVEL 4 -7; Start 02/01/17 at 20:30 Acetaminophen/ Hydrocodone Bitart ([place] (5/325)) 2 tab Q4H PRN PO PAIN LEVEL 7 -10; Start 02/01/17 at 20:30 Hydromorphone HCl (Dilaudid) 0.5 mg Q2 PRN IV PAIN; Start 02/01/17 at 20:30 Hydromorphone HCl (Dilaudid) 1 mg Q2 PRN IV PAIN Last administered on 11:57; Admin Dose 1 MG; Start 02/01/17 at 20:30 Docusate Sodium (Colace) 100 mg BID PRN PO CONSTIPATION; Start 02/01/17 at 20: 30 Bisacodyl (Dulcolax Supp) 10 mg BID PRN [place] CONSTIPATION; Start 02/01/17 at 20: 30 Sodium Biphosphate/ Sodium Phosphate (Fleet Enema) 133 ml BID PRN [place] CONSTIPATION; Start 02/01/17 at 20:30 Enoxaparin Sodium 40 mg 40 mg DAILY SC Last administered on 02/02/17 08:38; Admin Dose 40 MG; Start 02/02/17 at 09:00; Status Future Hold Propofol (Diprivan) 100 ml @ 2.202 mls/ hr Q12H IV Last administered on 08:04; Admin Dose 17.616 MLS/HR; Start 02/01/17 at 23:30 Ketorolac Tromethamine 30 mg 30 mg Q6H PRN IV PAIN; Start 02/02/17 at 09:30 Fentanyl 100 ml @ 2.5 mls/hr TITRATE IV Last administered on 02/07/17 08:05; Admin Dose 2.5 MLS/HR; Start 02/04/17 at 11:00 Metronidazole 100 ml @ 100 mls/hr Q8 IVPB Last administered on 02/07/17 05:30 ; Admin Dose 100 MLS/HR; Start 02/04/17 at 15:00 Vancomycin HCl 250 ml @ 125 mls/hr Q12H IVPB Last administered on 02/07/17 05 :29; Admin Dose 125 MLS/HR; Start 02/05/17 at 06:00 Meropenem (Merrem 500 Mg/ 100 ml (Pmx)) 100 ml @ 200 mls/hr Q8 IVPB Last administered on 02/07/17 05:29; Admin Dose 200 MLS/HR; Start 02/05/17 at 22:00 Acetaminophen 650 mg 650 mg Q4H PRN GTB PAIN AND OR ELEVATED TEMP Last administered on 02/06/17 05:06; Admin Dose 650 MG; Start 02/05/17 at 18:30 Sodium Chloride 1,000 ml @ 100 mls/hr Q10H IV Last administered on 02/06/17 08:50; Admin Dose 100 MLS/HR; Start 02/06/17 at 08:30; Status Future Hold Norepinephrine 16 mg/Dextrose 500 ml @ 1.87 mls/hr TITRATE IV ; Start 02/06/17 at 12:00 Potassium Chloride/Dextrose/ Sod Cl (D5-1/2ns + KCl 40 Meq) 1,000 ml @ 60 mls/ hr [id number] IV Last administered on 02/07/17 08:05; Admin Dose 60 MLS/HR; Start 02/06/17 at 10:00 Salmeterol Xinafoate/ Fluticasone (Advair 250/50 Diskus) 1 inh BID INH ; Start 02/07/17 at 11:00 Furosemide (Lasix) 20 mg DAILY IV Last administered on 02/07/17 10:40; Admin Dose 20 MG; Start 02/07/17 at 10:00 Furosemide (Lasix) 20 mg Q6 IV ; Start 02/07/17 at 12:00; Stop 02/08/17 at 06:01 Furosemide (Lasix) 20 mg ONCE ONCE IV ; Start 02/07/17 at 12:30; Stop 02/07/17 at 12:31; Status UNV Assessment/Plan Additional Assessment/Plan IMP: 1. Crohn's disease with perforation of sigmoid colon and sepsis status post arthroscopic sigmoid colectomy and end colostomy with lysis of adhesions 2. Resolved metabolic acidosis with septic shock 3. Hypoxemic respiratory failure--with imaging showing patchy GGO and effusions 4. Thrombocytopenia--DIC versus HIT 5. Anemia RECS: 1. Wean now to CPAP/PS--> attempt to extubate 2. Lasix 3. start solumedrol 4. Will assess NIF/VC to assess resp muscle fxn 5. DVT and GI prophylaxis 6. Antibiotics Critical care time 35 minutes JAYA POPE MD Feb 07, 2017 12:16
[2017-02-07] MEDS ORDERED: FUROSEMIDE 20 MG INJ IV ONE (12:30)
--- NOTE | 2017-02-07 12:58 | CONS ---
Date/Time of Note Date/Time of Note DATE: 02/07/17 TIME: 12:56 Assessment/Plan Assessment/Plan Additional Assessment/Plan Perforated colon status post surgery Severe sepsis Respiratory failure Low normal ejection fraction 50% Volume overload Crohn's disease Thrombocytopenia, improving Anemia -Diuretics have been restarted by our pulmonary colleagues, continue his blood pressure and renal function permits. Maintain potassium above 4.0 and magnesium above 2.0. Given worsening anemia, consider blood transfusion Consultation Date/Type/Reason Admit Date/Time Feb 01, 2017 at 03:10 Initial Consult Date 02/02/17 Type of Consultation: cv Referring Provider: VINCE PADGETT 24 HR Interval Summary Free Text/Dictation Patient undergoing CPAP trials, no new cardiac issues as per nursing staff Exam/Review of Systems Vital Signs Vitals Vital Signs Date Time Temp Pulse Resp B/P Pulse Ox O2 Delivery O2 Flow Rate FiO2 02/07/17 12:00 90 02/07/17 11:40 15 99 60 02/07/17 10:00 96/60 02/07/17 08:00 99.9 02/07/17 05:30 Mechanical Ventilator Intake and Output 02/06/17 02/06/17 02/07/17 15:00 23:00 07:00 Intake Total 450 ml 2083.480 ml 1340.812 ml Output Total 765 ml 3315 ml 1375 ml Balance -315 ml -1231.520 ml -34.188 ml Exam Sedated but opens his eyes to name, no apparent distress Head: normocephalic ENMT: intubated Respiratory: other (Coarse breath sounds bilaterally, no wheezing) Cardiovascular: other (S1-S2 heard), regular rate and rhythm Gastrointestinal: bowel sounds, non-tender, soft Extremities: edema Results Result Diagram: 02/07/17 0445 02/07/17 0445 Results 24 hrs Laboratory Tests Test 02/06/17 13:00 02/06/17 22:20 02/07/17 04:45 Blood Gas Specimen Source Blood arterial Blood arterial Arterial Blood Date Drawn 02/06/2017 1:10:51 PM 02/06/2017 10:10:26 PM Arterial Blood pH (Temp corrected) 7.502 H 7.466 H Arterial Blood pCO2 (Temp correct) 30.4 L 32.4 L Arterial Blood pO2 (Temp corrected) 58.2 L 152.6 H Arterial Blood HCO3 23.3 22.8 Arterial Blood Base Excess 0.5 -0.6 Arterial Blood Oxygen Saturation 89.1 L 98.1 H Raffy Test ACCEPTAB ACCEPTAB Arterial Blood Gas Puncture Site Right Radial Right Radial Arterial Blood Carboxyhemoglobin 0.4 0.4 Arterial Blood Methemoglobin 0.2 0.5 Blood Gas A-a O2 Differential 156.0 H 203.5 H Oxyhemoglobin Percent 88.6 L 97.2 Total Hemoglobin 8.9 L 8.0 L Blood Gas Temperature 37.0 37.0 Blood Gas Respiration Rate 16.0 12.0 Blood Gas Actual Respiration Rate 22 19 Blood Gas Modality VENT - AC VENT - AC FiO2 35.0 55.0 Blood Gas Tidal Volume 650.0 650.0 Blood Gas Low PEEP Setting 5.0 5.0 Blood Gas Critical Value Read Back Ayesha ISBELL RN Blood Gas Notified Whom RDIX UP Blood Gas Notified Time 02/06/2017 1:21:05 PM 02/06/2017 10:25:30 PM White Blood Count 12.2 H Red Blood Count 2.50 L Hemoglobin 7.1 L Hematocrit 22.6 L Mean Corpuscular Volume 90.4 Mean Corpuscular Hemoglobin 28.4 L Mean Corpuscular Hemoglobin Concent 31.4 L Red Cell Distribution Width 15.8 H Platelet Count 118 #L Mean Platelet Volume 13.7 H Neutrophils % 87.8 H Lymphocytes % 5.2 L Monocytes % 4.8 Eosinophils % 0.5 Basophils % 0.1 Nucleated Red Blood Cells % 0.0 Neutrophils # 10.7 H Lymphocytes # 0.6 L Monocytes # 0.6 Eosinophils # 0.1 Basophils # 0.0 Nucleated Red Blood Cells # 0.0 Prothrombin Time 15.7 H Prothrombin Time Ratio 1.2 INR International Normalized Ratio 1.24 Activated Partial Thromboplast Time 40.6 H Sodium Level 145 H Potassium Level 4.0 Chloride Level 114 H Carbon Dioxide Level 24 Anion Gap 11 Blood Urea Nitrogen 20 Creatinine 0.90 Glucose Level 96 Lactic Acid Level 1.4 Calcium Level 7.4 L Phosphorus Level 3.9 Magnesium Level 1.9 Total Bilirubin 0.2 Direct Bilirubin 0.00 Indirect Bilirubin 0.2 Aspartate Amino Transf (AST/SGOT) 19 Alanine Aminotransferase (ALT/SGPT) 27 Alkaline Phosphatase 52 B-Type Natriuretic Peptide 1570 H Total Protein 4.9 L Albumin 2.1 L Globulin 2.60 Albumin/Globulin Ratio 0.88 Lipase 191 Medications Medications Current Medications Ondansetron HCl (Zofran Inj) 4 mg Q6H PRN IV NAUSEA AND/OR VOMITING; Start at 03:30 Metoclopramide HCl (Reglan) 10 mg Q6H IV Last administered on 02/07/17 10:40; Admin Dose 10 MG; Start 02/01/17 at 03:30 Hydromorphone HCl (Dilaudid) 1 mg Q4H PRN IV pain Last administered on 00:47; Admin Dose 1 MG; Start 02/01/17 at 03:30 Pantoprazole (Protonix Iv) 40 mg DAILY@06 IV Last administered on 02/07/17 05: 30; Admin Dose 40 MG; Start 02/01/17 at 06:00 Acetaminophen/ Hydrocodone Bitart ([place] (5/325)) 1 tab Q4H PRN PO PAIN LEVEL 4 -7; Start 02/01/17 at 20:30 Acetaminophen/ Hydrocodone Bitart ([place] (5/325)) 2 tab Q4H PRN PO PAIN LEVEL 7 -10; Start 02/01/17 at 20:30 Hydromorphone HCl (Dilaudid) 0.5 mg Q2 PRN IV PAIN; Start 02/01/17 at 20:30 Hydromorphone HCl (Dilaudid) 1 mg Q2 PRN IV PAIN Last administered on 11:57; Admin Dose 1 MG; Start 02/01/17 at 20:30 Docusate Sodium (Colace) 100 mg BID PRN PO CONSTIPATION; Start 02/01/17 at 20: 30 Bisacodyl (Dulcolax Supp) 10 mg BID PRN [place] CONSTIPATION; Start 02/01/17 at 20: 30 Sodium Biphosphate/ Sodium Phosphate (Fleet Enema) 133 ml BID PRN [place] CONSTIPATION; Start 02/01/17 at 20:30 Enoxaparin Sodium 40 mg 40 mg DAILY SC Last administered on 02/02/17 08:38; Admin Dose 40 MG; Start 02/02/17 at 09:00; Status Future Hold Propofol (Diprivan) 100 ml @ 2.202 mls/ hr Q12H IV Last administered on 08:04; Admin Dose 17.616 MLS/HR; Start 02/01/17 at 23:30 Ketorolac Tromethamine 30 mg 30 mg Q6H PRN IV PAIN; Start 02/02/17 at 09:30 Fentanyl 100 ml @ 2.5 mls/hr TITRATE IV Last administered on 02/07/17 08:05; Admin Dose 2.5 MLS/HR; Start 02/04/17 at 11:00 Metronidazole 100 ml @ 100 mls/hr Q8 IVPB Last administered on 02/07/17 05:30 ; Admin Dose 100 MLS/HR; Start 02/04/17 at 15:00 Vancomycin HCl 250 ml @ 125 mls/hr Q12H IVPB Last administered on 02/07/17 05 :29; Admin Dose 125 MLS/HR; Start 02/05/17 at 06:00 Meropenem (Merrem 500 Mg/ 100 ml (Pmx)) 100 ml @ 200 mls/hr Q8 IVPB Last administered on 02/07/17 05:29; Admin Dose 200 MLS/HR; Start 02/05/17 at 22:00 Acetaminophen 650 mg 650 mg Q4H PRN GTB PAIN AND OR ELEVATED TEMP Last administered on 02/06/17 05:06; Admin Dose 650 MG; Start 02/05/17 at 18:30 Sodium Chloride 1,000 ml @ 100 mls/hr Q10H IV Last administered on 02/06/17 08:50; Admin Dose 100 MLS/HR; Start 02/06/17 at 08:30; Status Future Hold Norepinephrine 16 mg/Dextrose 500 ml @ 1.87 mls/hr TITRATE IV ; Start 02/06/17 at 12:00 Potassium Chloride/Dextrose/ Sod Cl (D5-1/2ns + KCl 40 Meq) 1,000 ml @ 60 mls/ hr [id number] IV Last administered on 02/07/17 08:05; Admin Dose 60 MLS/HR; Start 02/06/17 at 10:00 Salmeterol Xinafoate/ Fluticasone (Advair 250/50 Diskus) 1 inh BID INH ; Start 02/07/17 at 11:00 Furosemide (Lasix) 20 mg DAILY IV Last administered on 02/07/17 10:40; Admin Dose 20 MG; Start 02/07/17 at 10:00 Furosemide (Lasix) 20 mg Q6 IV Last administered on 02/07/17t 12:27; Admin Dose 20 MG; Start 02/07/17 at 12:00; Stop 02/08/17 at 06:01 Methylprednisolone Sodium Succinate (Solu-Medrol) 40 mg Q12 IV ; Start 02/07/17 at 12:30 Keith Gandhi DO Feb 07, 2017 12:58
[2017-02-07] MEDS ORDERED: LIDOCAINE 1% (MPF) 5 ML VIAL SC ONE (14:00)
--- NOTE | 2017-02-07 14:08 | RADRPT ---
PROCEDURE: XR Chest. CLINICAL INDICATION: PICC line placement TECHNIQUE: Frontal chest x-ray COMPARISON: 02/07/2017 FINDINGS: Left-sided PICC line terminates at the cavoatrial junction. ET and NG tube remains in satisfactory position. Perihilar and lower lobe hazy opacities are again identified. There is no pneumothorax. The cardiomediastinal silhouette is unchanged. The osseous structures are intact. IMPRESSION: Left PICC line is in satisfactory position. RPTAT: QQ .Marky Goss MD, MD Date Time Electronically viewed and signed by .Marky Goss MD, on 02/07/2017 14:08 .O/
[2017-02-07] MEDS: METHYLPREDNISOLONE 40 MG INJ IV SCH ×2 (14:58→21:43)
[2017-02-07] MEDS: HYDROmorphONE 1 MG/ML SYG IV PRN (17:29)
--- NOTE | 2017-02-07 17:29 | RADRPT ---
PROCEDURE: US guidance for PICC line CLINICAL INDICATION: PICC line placement TECHNIQUE: Multiple real-time images were acquired of the patient's arm utilizing a high resolutio n transducer. This was performed by the PICC line nurse for venous access. COMPARISON: None FINDINGS: Ultrasound guidance for PICC line placement. IMPRESSION: Ultrasound guidance for PICC line placement. RPTAT: AA .Roderick Barron MD, MD Date Time Electronically viewed and signed by .Roderick Barron MD, on 02/07/2017 17:29 .S/
--- NOTE | 2017-02-07 19:43 | CONS ---
Date/Time of Note Date/Time of Note DATE: 02/07/17 TIME: 19:40 Assessment/Plan Assessment/Plan Chief Complaint/Hosp Course ID PROGRESS NOTE TOTAL ABX DAY #8 => Vanco IV, Levaquin, Flagyl S/P Zosyn 24H INTERVAL SUMMARY * Low grade TMax 100.0, NEW PICC today * Zosyn was DC'd due to progressive thrombocytopenia -- PLTs now improved 118 * MIRCO Abdominal fluid culture growing Proteus mirabilis, E. coli, enterococcus species and strep * CXR 02/07/17: worsening pulm edema / PNA MICRO: BODY FLUID CULTURE Final Organism 1 ESCHERICHIA COLI QUANTITY 3+ Organism 2 PROTEUS MIRABILIS QUANTITY 2+ Organism 3 ENTEROCOCCUS SPECIES QUANTITY ISOLATED FROM BROTH ONLY Organism 4 STREP GRP D NOT ENTEROCOCCUS QUANTITY ISOLATED FROM BROTH ONLY E COLI P. MIRAB ENT SPS M.I.C. RX M.I.C. RX M.I.C. RX --------- --- --------- --- --------- --- AMPICILLIN 4 S <=2 S <=2 S CEFAZOLIN S CEFOTAXIME S S CIPROFLOXACIN <=0.25 S <=0.25 S GENTAMICIN <=1 S <=1 S LEVOFLOXACIN <=0.12 S <=0.12 S PENICILLIN-G 0.5 S VANCOMYCIN 2 S TOBRAMYCIN <=1 S <=1 S TRIMETHOPRIM/SULFAMETHOXAZOLE <=20 S <=20 S STR GRP D Zone Size RX --------- --- * AMPICILLIN S * CEFAZOLIN S * CEFOTAXIME S * CEFUROXIME S * CIPROFLOXACIN S * CLINDAMYCIN S * ERYTHROMYCIN R * PENICILLIN S * VANCOMYCIN S PHYSICAL EXAMINATION: GENERAL: VSS, NAD HEENT: Unremarkable NECK: Supple, trach-> midline CHEST: Equal chest rise bilaterally, without dyspnea on observation HEART: Pulse RRR ABDOMEN: EXTREMITIES: Warm SKIN: Warm, dry ID ASSESSMENT: 46 yo M w/PMHx Crohn's disease admitted with: 1. Sepsis, status post perforated viscus repair. * MICRO: Abdominal fluid culture growing Proteus mirabilis, E. coli, enterococcus species and strep 2. Postoperative respiratory failure. 3. HCAP w/infiltrate developing on CXR 02/05/17 4. Anemia with persistent thrombocytopenia, possibly secondary to sepsis and antibiotics. Zosyn was changed to Levaquin. * rule out heparin-induced thrombocytopenia versus other etiologies, 6. Status post acute renal failure. (-)MRSA Nares INVASIVES: * ETT, NGT, STEVE, Zeng catheter. ABX ALLERGIES: KNDA CURRENT ABX: TOTAL ABX DAY #8 => Vanco IV, Levaquin, Flagyl S/P Zosyn ID RECOMMENDATIONS: 1. Continue current ABX over the weekend and monitor clinical status 2. Send sputum for C&S if not in process 3. Zosyn was DC'd due to progressive thrombocytopenia -- PLTs now improved 118 . . Problems: Consultation Date/Type/Reason Admit Date/Time Feb 01, 2017 at 03:10 Initial Consult Date 02/02/17 Type of Consultation: ID Referring Provider: VINCE PADGETT Exam/Review of Systems Vital Signs Vitals Vital Signs Date Time Temp Pulse Resp B/P Pulse Ox O2 Delivery O2 Flow Rate FiO2 02/07/17 19:00 96 23 123/81 96 02/07/17 16:00 98.2 02/07/17 16:00 Nasal Cannula 3.0 02/07/17 12:00 40 Intake and Output 02/06/17 02/06/17 02/07/17 15:00 23:00 07:00 Intake Total 450 ml 2083.480 ml 1340.812 ml Output Total 765 ml 3315 ml 1375 ml Balance -315 ml -1231.520 ml -34.188 ml Results Result Diagram: 02/07/17 0445 02/07/17 0445 Results 24 hrs Laboratory Tests Test 02/06/17 22:20 02/07/17 04:45 Blood Gas Specimen Source Blood arterial Arterial Blood Date Drawn 02/06/2017 10:10:26 PM Arterial Blood pH (Temp corrected) 7.466 H Arterial Blood pCO2 (Temp correct) 32.4 L Arterial Blood pO2 (Temp corrected) 152.6 H Arterial Blood HCO3 22.8 Arterial Blood Base Excess -0.6 Arterial Blood Oxygen Saturation 98.1 H Raffy Test ACCEPTAB Arterial Blood Gas Puncture Site Right Radial Arterial Blood Carboxyhemoglobin 0.4 Arterial Blood Methemoglobin 0.5 Blood Gas A-a O2 Differential 203.5 H Oxyhemoglobin Percent 97.2 Total Hemoglobin 8.0 L Blood Gas Temperature 37.0 Blood Gas Respiration Rate 12.0 Blood Gas Actual Respiration Rate 19 Blood Gas Modality VENT - AC FiO2 55.0 Blood Gas Tidal Volume 650.0 Blood Gas Low PEEP Setting 5.0 Blood Gas Notified Whom UP Blood Gas Notified Time 02/06/2017 10:25:30 PM White Blood Count 12.2 H Red Blood Count 2.50 L Hemoglobin 7.1 L Hematocrit 22.6 L Mean Corpuscular Volume 90.4 Mean Corpuscular Hemoglobin 28.4 L Mean Corpuscular Hemoglobin Concent 31.4 L Red Cell Distribution Width 15.8 H Platelet Count 118 #L Mean Platelet Volume 13.7 H Neutrophils % 87.8 H Lymphocytes % 5.2 L Monocytes % 4.8 Eosinophils % 0.5 Basophils % 0.1 Nucleated Red Blood Cells % 0.0 Neutrophils # 10.7 H Lymphocytes # 0.6 L Monocytes # 0.6 Eosinophils # 0.1 Basophils # 0.0 Nucleated Red Blood Cells # 0.0 Prothrombin Time 15.7 H Prothrombin Time Ratio 1.2 INR International Normalized Ratio 1.24 Activated Partial Thromboplast Time 40.6 H Sodium Level 145 H Potassium Level 4.0 Chloride Level 114 H Carbon Dioxide Level 24 Anion Gap 11 Blood Urea Nitrogen 20 Creatinine 0.90 Glucose Level 96 Lactic Acid Level 1.4 Calcium Level 7.4 L Phosphorus Level 3.9 Magnesium Level 1.9 Total Bilirubin 0.2 Direct Bilirubin 0.00 Indirect Bilirubin 0.2 Aspartate Amino Transf (AST/SGOT) 19 Alanine Aminotransferase (ALT/SGPT) 27 Alkaline Phosphatase 52 B-Type Natriuretic Peptide 1570 H Total Protein 4.9 L Albumin 2.1 L Globulin 2.60 Albumin/Globulin Ratio 0.88 Lipase 191 Medications Medications Current Medications Ondansetron HCl (Zofran Inj) 4 mg Q6H PRN IV NAUSEA AND/OR VOMITING; Start at 03:30 Metoclopramide HCl (Reglan) 10 mg Q6H IV Last administered on 02/07/17t 14:58; Admin Dose 10 MG; Start 02/01/17 at 03:30 Hydromorphone HCl (Dilaudid) 1 mg Q4H PRN IV pain Last administered on 17:29; Admin Dose 1 MG; Start 02/01/17 at 03:30 Pantoprazole (Protonix Iv) 40 mg DAILY@06 IV Last administered on 02/07/17 05: 30; Admin Dose 40 MG; Start 02/01/17 at 06:00 Acetaminophen/ Hydrocodone Bitart ([place] (5/325)) 1 tab Q4H PRN PO PAIN LEVEL 4 -7; Start 02/01/17 at 20:30 Acetaminophen/ Hydrocodone Bitart ([place] (5/325)) 2 tab Q4H PRN PO PAIN LEVEL 7 -10; Start 02/01/17 at 20:30 Hydromorphone HCl (Dilaudid) 0.5 mg Q2 PRN IV PAIN; Start 02/01/17 at 20:30 Hydromorphone HCl (Dilaudid) 1 mg Q2 PRN IV PAIN Last administered on 11:57; Admin Dose 1 MG; Start 02/01/17 at 20:30 Docusate Sodium (Colace) 100 mg BID PRN PO CONSTIPATION; Start 02/01/17 at 20: 30 Bisacodyl (Dulcolax Supp) 10 mg BID PRN [place] CONSTIPATION; Start 02/01/17 at 20: 30 Sodium Biphosphate/ Sodium Phosphate (Fleet Enema) 133 ml BID PRN [place] CONSTIPATION; Start 02/01/17 at 20:30 Enoxaparin Sodium 40 mg 40 mg DAILY SC Last administered on 02/02/17 08:38; Admin Dose 40 MG; Start 02/02/17 at 09:00; Status Future Hold Propofol (Diprivan) 100 ml @ 2.202 mls/ hr Q12H IV Last administered on 08:04; Admin Dose 17.616 MLS/HR; Start 02/01/17 at 23:30 Ketorolac Tromethamine 30 mg 30 mg Q6H PRN IV PAIN; Start 02/02/17 at 09:30 Fentanyl 100 ml @ 2.5 mls/hr TITRATE IV Last administered on 02/07/17 08:05; Admin Dose 2.5 MLS/HR; Start 02/04/17 at 11:00 Metronidazole 100 ml @ 100 mls/hr Q8 IVPB Last administered on 02/07/17 14:58 ; Admin Dose 100 MLS/HR; Start 02/04/17 at 15:00 Vancomycin HCl 250 ml @ 125 mls/hr Q12H IVPB Last administered on 02/07/17 18 :10; Admin Dose 125 MLS/HR; Start 02/05/17 at 06:00 Meropenem (Merrem 500 Mg/ 100 ml (Pmx)) 100 ml @ 200 mls/hr Q8 IVPB Last administered on 02/07/17 15:01; Admin Dose 200 MLS/HR; Start 02/05/17 at 22:00 Acetaminophen 650 mg 650 mg Q4H PRN GTB PAIN AND OR ELEVATED TEMP Last administered on 02/06/17 05:06; Admin Dose 650 MG; Start 02/05/17 at 18:30 Sodium Chloride 1,000 ml @ 100 mls/hr Q10H IV Last administered on 02/06/17 08:50; Admin Dose 100 MLS/HR; Start 02/06/17 at 08:30; Status Future Hold Norepinephrine 16 mg/Dextrose 500 ml @ 1.87 mls/hr TITRATE IV ; Start 02/06/17 at 12:00 Potassium Chloride/Dextrose/ Sod Cl (D5-1/2ns + KCl 40 Meq) 1,000 ml @ 60 mls/ hr [id number] IV Last administered on 02/07/17 08:05; Admin Dose 60 MLS/HR; Start 02/06/17 at 10:00 Salmeterol Xinafoate/ Fluticasone (Advair 250/50 Diskus) 1 inh BID INH ; Start 02/07/17 at 11:00 Furosemide (Lasix) 20 mg DAILY IV Last administered on 02/07/17 10:40; Admin Dose 20 MG; Start 02/07/17 at 10:00 Furosemide (Lasix) 20 mg Q6 IV Last administered on 02/07/17 18:10; Admin Dose 20 MG; Start 02/07/17 at 12:00; Stop 02/08/17 at 06:01 Methylprednisolone Sodium Succinate (Solu-Medrol) 40 mg Q12 IV Last administered on 4/23/17at 14:58; Admin Dose 40 MG; Start 02/07/17 at 12:30 IV Flush (NS 10 ml) 10 ml PRN PRN IV IV PROTOCOL; Start 02/07/17 at 14:30 DARIUSZ QUINTERO NP Feb 07, 2017 19:43
[2017-02-07] MEDS ORDERED: DIPHENHYDRAMINE 50 MG INJ IV PRN (20:00)
--- NOTE | 2017-02-07 22:11 | RADRPT ---
PROCEDURE: US DVT. CLINICAL INDICATION: Left upper extremity swelling, PICC line. TECHNIQUE: Multiple longitudinal and transverse images of the bilateral upper extremity veins were obtained with echeverria scale and color Doppler imaging. 2D grayscale measurements with compression, co odalis Doppler flow, and augmentation was performed. COMPARISON: No prior studies are available for comparison. FINDINGS: The bilateral internal jugular, subclavian, axillary, brachial, antecubital, radial, and ulnar veins are patent. There is thrombus alongside PICC line within the left basilic vein. There is occlusiv e thrombus in the bilateral cephalic veins. IMPRESSION: 1. No DVT in the bilateral upper extremities. 2. Thrombus alongside a PICC line in the left basilic vein. 3. Occlusive thrombus in the bilateral cephalic veins. RPTAT: HTAR .Jace Washburn MD, Date Time Electronically viewed and signed by .Jace Washburn MD, on 02/07/2017 22:11 .R/
[2017-02-07 22:24] LABS: HEPARIN INDUCED PLATELET AB NEGATIVE (NEGATIVE)
[2017-02-08] VITALS (21 sets, daily range): BP systolic 110–133; BP diastolic 76–99; PULSE 69–121; RESP 15–30
[2017-02-08] MEDS: FUROSEMIDE 20 MG INJ IV SCH ×4 (00:17→18:04)
[2017-02-08] MEDS: METOCLOPRAMIDE 10 MG INJ IV SCH ×4 (03:23→20:58)
[2017-02-08] MEDS: VANCOMYCIN 1 GM in NS 250 ML IVPB SCH ×2 (05:28→18:03)
[2017-02-08] MEDS: MEROPENEM 500 MG/100 ML (PMX) 100 ML IVPB SCH ×3 (05:28→22:25)
[2017-02-08] MEDS: metroNIDAZOLE 500 MG/NS (PMX) 100 ML IVPB SCH ×3 (05:29→21:07)
[2017-02-08] MEDS: PANTOPRAZOLE 40 MG INJ IV SCH (05:29)
[2017-02-08 05:50] LABS: ADD SCAN DIFF NO
[2017-02-08 05:52] LABS: ABNORMAL IP MESSAGE 1; BASOPHILS % 0.1 % (0.0-2.0); HEMATOCRIT 24.8 % (42.0-52.0); HEMOGLOBIN 7.7 g/dl (14.0-18.0); LYMPHOCYTES # 0.5 10^3/ul (0.8-2.9); LYMPHOCYTES % 3.6 % (15.0-51.0); MEAN CORPUSCULAR VOLUME 90.2 fl (82.0-101.0); MEAN PLATELET VOLUME 13.2 fl (7.4-10.4); MONOCYTE # 0.3 10^3/ul (0.3-0.9); MONOCYTES % 2.1 % (0.0-11.0); NEUTROPHIL # 13.4 10^3/ul (1.6-7.5); PLATELET COUNT 175 10^3/UL (140-415); RED BLOOD COUNT 2.75 10^6/ul (4.70-6.10); RED CELL DISTRIBUTION WIDTH 15.6 % (11.5-14.5); WHITE BLOOD COUNT 14.5 10^3/ul (4.8-10.8)
[2017-02-08 06:00] LABS: NEUTROPHILS % 92.7 % (39.0-77.0)
[2017-02-08 06:02] LABS: ALBUMIN 2.1 g/dl (3.3-4.9); POTASSIUM 3.4 mmol/L (3.5-5.1)
[2017-02-08 06:04] LABS: CREATININE 0.85 mg/dl (0.61-1.24)
[2017-02-08 06:05] LABS: ALBUMIN 1.9 g/dl (3.3-4.9); CALCIUM 7.3 mg/dl (8.4-10.2); PHOSPHORUS 4.1 mg/dl (2.5-4.9)
[2017-02-08 06:06] LABS: POTASSIUM 3.6 mmol/L (3.5-5.1)
[2017-02-08 06:08] LABS: ALBUMIN/GLOBULIN RATIO 0.76; BILIRUBIN,INDIRECT 0.2 mg/dl (0-1.1); BILIRUBIN,TOTAL 0.2 mg/dl (0.2-1.3); CREATININE 0.77 mg/dl (0.61-1.24); INR 1.15; PROTIME 14.7 Sec (12.2-14.2); PT RATIO 1.1; TOTAL PROTEIN 4.4 g/dl (6.1-8.1)
[2017-02-08 06:09] LABS: CALCIUM 7.3 mg/dl (8.4-10.2); PARTIAL THROMBOPLASTIN TIME 34.3 Sec (25.0-35.0)
--- NOTE | 2017-02-08 07:59 | RADRPT ---
PROCEDURE: XR Chest. CLINICAL INDICATION: vent TECHNIQUE: Single frontal view of the chest was obtained. COMPARISON: Chest x-ray from 02/07/2017 FINDINGS: A left-sided PICC line is again noted with its tip at the superior cavoatrial junction. There has been interval extubation and removal of the enteric tube seen previously. There is increased prominence of interstitial markings, likely due to mild to moderate congestive ch anges. There is new discoid opacity in the right mid lung due to atelectasis and / or infiltrate. There is right basilar atelectasis. There may be a layering left pleural effusion which does not appear significantly changed as well as a stable retrocardiac opacity due to atelectasis, infiltrate, and / or effusion. IMPRESSION: Interval extubation and removal of the enteric tube seen previously. Left-sided PICC line is unchanged in position. Mild to moderate congestive changes which have increased. Possible layering left pleural effusion and stable retrocardiac opacity. New discoid atelectasis versus infiltrate in the right mid lung. RPTAT: EE Physician Carlee Date Time Electronically viewed and signed by Physician Carlee on 02/08/2017 07:58 /
[2017-02-08] MEDS: PROPOFOL 100 ML IV SCH (08:33)
[2017-02-08] MEDS: METHYLPREDNISOLONE 40 MG INJ IV SCH ×2 (08:57→20:57)
[2017-02-08] MEDS: SALMETEROL/FLUTICASONE 250/50 INHA INH SCH ×2 (08:58→20:57)
--- NOTE | 2017-02-08 09:39 | CONS ---
DATE OF ADMISSION: 02/01/2017 DATE OF CONSULTATION: 02/08/2017 TYPE OF CONSULTATION: Hematology progress note. SUBJECTIVE: Mr. Frye states he is feeling better. He has no specific complaints today. The patient has been extubated. OBJECTIVE: VITAL SIGNS: Temperature 95 axillary, pulse 84 per minute and regular, respirations 20, blood pressu re 133/79, pulse oximetry 94. SKIN: Scattered ecchymoses. No petechiae or rashes. HEENT: No mucosal lesions. No scleral icterus. NECK: Supple, no jugular venous distention or thyroid enlargement. CHEST: Clear to auscultation and percussion. No rhonchi, wheezes, rales or rubs. NODES: No palpable lymphadenopathy. ABDOMEN: Soft, no masses or ascites. There is evidence of the previous surgery and colostomy. EXTREMITIES: No clubbing, edema or cyanosis. NEUROLOGIC: Normal. LABORATORY DATA: White count 14,500 with absolute neutrophil count of 13,400, hemoglobin 7.7, hemat ocrit 24.8, and platelet count is 175,000. ASSESSMENT: 1. Inflammatory bowel disease. 2. Perforated sigmoid secondary to #1. 3. Thrombocytopenia, resolved. PLAN: The patient's thrombocytopenia has resolved. Hemoglobin is stable. We will see the patient as needed in the future. Thank you very much for allowing us to see this interesting patient in sandeep [facility] consultation. Dictated By: FEDERICO SAHA MD SR/NTS Conf#: [id number] DID#: [id number]
--- NOTE | 2017-02-08 10:59 | CONS ---
Date/Time of Note Date/Time of Note DATE: 02/08/17 TIME: 10:57 Consult Date/Type/Reason Admit Date/Time Feb 01, 2017 at 03:10 Type of Consultation: pulmonary ICU Ordering Provider: VINCE PADGETT Subjective Patient stable following extubation awake alert and oriented Objective Vital Signs Date Time Temp Pulse Resp B/P Pulse Ox O2 Delivery O2 Flow Rate FiO2 02/08/17 08:00 77 02/08/17 05:00 21 133/79 94 02/08/17 00:00 98.5 02/07/17 20:00 Nasal Cannula 3.0 02/07/17 12:00 40 Intake and Output 02/07/17 02/07/17 02/08/17 15:00 23:00 07:00 Intake Total 0 ml 380 ml 860 ml Output Total 1825 ml 1550 ml 1150 ml Balance -1825 ml -1170 ml -290 ml Exam GENERAL: Elderly gentleman comfortable at rest no acute distress VITAL SIGNS: per chart NECK: Supple. No JVD or lymphadenopathy. CARDIAC EXAM: S1, S2. No added sounds or murmurs. CHEST: clear bilaterally, No added sounds, rales or wheezes ABDOMEN: Soft, nontender. No guarding or rebound. EXTREMITIES: No cyanosis, clubbing or edema. NEUROLOGIC: Generalized weakness. No focal deficits. Results/Medications Result Diagram: 02/08/17 0530 02/08/17 0530 Results 24 hrs Laboratory Tests Test 02/08/17 05:30 White Blood Count 14.5 H Red Blood Count 2.75 L Hemoglobin 7.7 L Hematocrit 24.8 L Mean Corpuscular Volume 90.2 Mean Corpuscular Hemoglobin 28.0 L Mean Corpuscular Hemoglobin Concent 31.0 L Red Cell Distribution Width 15.6 H Platelet Count 175 # Mean Platelet Volume 13.2 H Neutrophils % 92.7 H Lymphocytes % 3.6 L Monocytes % 2.1 Eosinophils % 0.0 Basophils % 0.1 Nucleated Red Blood Cells % 0.0 Neutrophils # 13.4 H Lymphocytes # 0.5 L Monocytes # 0.3 Eosinophils # 0.0 Basophils # 0.0 Nucleated Red Blood Cells # 0.0 Prothrombin Time 14.7 H Prothrombin Time Ratio 1.1 INR International Normalized Ratio 1.15 Activated Partial Thromboplast Time 34.3 Sodium Level 146 H Potassium Level 3.4 L Chloride Level 108 Carbon Dioxide Level 25 Anion Gap 16 Blood Urea Nitrogen 26 H Creatinine 0.85 Glucose Level 173 Lactic Acid Level 1.3 Calcium Level 7.3 L Phosphorus Level 4.1 Magnesium Level 1.7 Total Bilirubin 0.2 Direct Bilirubin 0.00 Indirect Bilirubin 0.2 Aspartate Amino Transf (AST/SGOT) 24 Alanine Aminotransferase (ALT/SGPT) 28 Alkaline Phosphatase 58 B-Type Natriuretic Peptide 4070 H Total Protein 4.4 L Albumin 2.1 L Globulin 2.50 Albumin/Globulin Ratio 0.76 Medications Current Medications Ondansetron HCl (Zofran Inj) 4 mg Q6H PRN IV NAUSEA AND/OR VOMITING; Start at 03:30 Metoclopramide HCl (Reglan) 10 mg Q6H IV Last administered on 02/08/17 03:23; Admin Dose 10 MG; Start 02/01/17 at 03:30 Hydromorphone HCl (Dilaudid) 1 mg Q4H PRN IV pain Last administered on 17:29; Admin Dose 1 MG; Start 02/01/17 at 03:30 Pantoprazole (Protonix Iv) 40 mg DAILY@06 IV Last administered on 02/08/17 05: 29; Admin Dose 40 MG; Start 02/01/17 at 06:00 Acetaminophen/ Hydrocodone Bitart ([place] (5/325)) 1 tab Q4H PRN PO PAIN LEVEL 4 -7; Start 02/01/17 at 20:30 Acetaminophen/ Hydrocodone Bitart ([place] (5/325)) 2 tab Q4H PRN PO PAIN LEVEL 7 -10; Start 02/01/17 at 20:30 Hydromorphone HCl (Dilaudid) 0.5 mg Q2 PRN IV PAIN; Start 02/01/17 at 20:30 Hydromorphone HCl (Dilaudid) 1 mg Q2 PRN IV PAIN Last administered on 11:57; Admin Dose 1 MG; Start 02/01/17 at 20:30 Docusate Sodium (Colace) 100 mg BID PRN PO CONSTIPATION; Start 02/01/17 at 20: 30 Bisacodyl (Dulcolax Supp) 10 mg BID PRN [place] CONSTIPATION; Start 02/01/17 at 20: 30 Sodium Biphosphate/ Sodium Phosphate (Fleet Enema) 133 ml BID PRN [place] CONSTIPATION; Start 02/01/17 at 20:30 Enoxaparin Sodium 40 mg 40 mg DAILY SC Last administered on 02/02/17 08:38; Admin Dose 40 MG; Start 02/02/17 at 09:00; Status Future Hold Propofol (Diprivan) 100 ml @ 2.202 mls/ hr Q12H IV Last administered on 08:04; Admin Dose 17.616 MLS/HR; Start 02/01/17 at 23:30 Ketorolac Tromethamine 30 mg 30 mg Q6H PRN IV PAIN; Start 02/02/17 at 09:30 Fentanyl 100 ml @ 2.5 mls/hr TITRATE IV Last administered on 02/07/17 08:05; Admin Dose 2.5 MLS/HR; Start 02/04/17 at 11:00 Metronidazole 100 ml @ 100 mls/hr Q8 IVPB Last administered on 02/08/17 05:29 ; Admin Dose 100 MLS/HR; Start 02/04/17 at 15:00 Vancomycin HCl 250 ml @ 125 mls/hr Q12H IVPB Last administered on 02/08/17 05 :28; Admin Dose 125 MLS/HR; Start 02/05/17 at 06:00 Meropenem (Merrem 500 Mg/ 100 ml (Pmx)) 100 ml @ 200 mls/hr Q8 IVPB Last administered on 02/08/17 05:28; Admin Dose 200 MLS/HR; Start 02/05/17 at 22:00 Acetaminophen 650 mg 650 mg Q4H PRN GTB PAIN AND OR ELEVATED TEMP Last administered on 02/06/17 05:06; Admin Dose 650 MG; Start 02/05/17 at 18:30 Sodium Chloride 1,000 ml @ 100 mls/hr Q10H IV Last administered on 02/06/17 08:50; Admin Dose 100 MLS/HR; Start 02/06/17 at 08:30; Status Future Hold Norepinephrine 16 mg/Dextrose 500 ml @ 1.87 mls/hr TITRATE IV ; Start 02/06/17 at 12:00 Potassium Chloride/Dextrose/ Sod Cl (D5-1/2ns + KCl 40 Meq) 1,000 ml @ 60 mls/ hr [id number] IV Last administered on 02/07/17 19:20; Admin Dose 60 MLS/HR; Start 02/06/17 at 10:00 Salmeterol Xinafoate/ Fluticasone (Advair 250/50 Diskus) 1 inh BID INH Last administered on 02/08/17 08:58; Admin Dose 1 INH; Start 02/07/17 at 11:00 Furosemide (Lasix) 20 mg DAILY IV Last administered on 02/08/17 08:58; Admin Dose 20 MG; Start 02/07/17 at 10:00 Methylprednisolone Sodium Succinate (Solu-Medrol) 40 mg Q12 IV Last administered on 02/08/17 08:57; Admin Dose 40 MG; Start 02/07/17 at 12:30 IV Flush (NS 10 ml) 10 ml PRN PRN IV IV PROTOCOL; Start 02/07/17 at 14:30 Diphenhydramine HCl (Benadryl) 25 mg Q6H PRN IV itching ; Start 02/07/17 at 20: 00 Assessment/Plan Chief Complaint/Hosp Course Assessment 1. Crohn's disease with perforation of sigmoid colon and sepsis status post arthroscopic sigmoid colectomy and end colostomy with lysis of adhesions 2. Resolved metabolic acidosis with septic shock 3. Improved electrolyte imbalance 4. Hypoxemic respiratory failure possibly underlying pleural effusions with compressive atelectasis resulting in failure to wean from mechanical ventilation 5. Thrombocytopenia improved Plan 1. Continue surgical care recommendations 2. Monitor electrolytes 3. Advance diet slowly 4. Incentive spirometry 5. DVT and GI prophylaxis 6. Antibiotics per primary team 7. Physical therapy evaluation 8. Consider iron replacement for anemia Disposition Stable to transfer to telemetry from pulmonary standpoint Discussed with nursing staff Critical care time 35 minutes Problems: RAMON DOUGLAS MD, [facility] Feb 08, 2017 10:59
[2017-02-08] MEDS: D5W-0.45 NACL + KCL 40 MEQ 1,000 ML IV SCH (12:24)
--- NOTE | 2017-02-08 13:06 | CONS ---
Date/Time of Note Date/Time of Note DATE: 02/08/17 TIME: 12:52 Assessment/Plan Assessment/Plan Chief Complaint/Hosp Course ID PROGRESS NOTE TOTAL ABX DAY #9 => Vanco IV, Merrem, Flagyl S/P Zosyn 02/03 & 02/04 24H INTERVAL SUMMARY * A/A/O -> doing well, no c/o, VSS, no fevers, on supplemental O2 via NC * s/p new PICC - WBC slightly elevated * Zosyn was DC'd due to progressive thrombocytopenia -- PLTs improved * MIRCO Abdominal fluid culture growing Proteus mirabilis, E. coli, enterococcus species and strep * CXR 02/07/17: worsening pulm edema / PNA * PATHO REPORT: LIVER: A trichrome stain shows no evidence of fibrosis. A reticulin stain shows distorted architecture of hepatic plates with normal thickness. Rare iron deposition is identified in the iron stain. A PAS with diastase stain is negative for Alpha-1 antitrypsin globules. B-Liver, segment 5 , core needle biopsy:-- Steatohepatitis with minimal necroinflammatory activity and no fibrosis. MICRO: BODY FLUID CULTURE Final Organism 1 ESCHERICHIA COLI QUANTITY 3+ Organism 2 PROTEUS MIRABILIS QUANTITY 2+ Organism 3 ENTEROCOCCUS SPECIES QUANTITY ISOLATED FROM BROTH ONLY Organism 4 STREP GRP D NOT ENTEROCOCCUS QUANTITY ISOLATED FROM BROTH ONLY E COLI P. MIRAB ENT SPS M.I.C. RX M.I.C. RX M.I.C. RX --------- --- --------- --- --------- --- AMPICILLIN 4 S <=2 S <=2 S CEFAZOLIN S CEFOTAXIME S S CIPROFLOXACIN <=0.25 S <=0.25 S GENTAMICIN <=1 S <=1 S LEVOFLOXACIN <=0.12 S <=0.12 S PENICILLIN-G 0.5 S VANCOMYCIN 2 S TOBRAMYCIN <=1 S <=1 S TRIMETHOPRIM/SULFAMETHOXAZOLE <=20 S <=20 S STR GRP D Zone Size RX --------- --- * AMPICILLIN S * CEFAZOLIN S * CEFOTAXIME S * CEFUROXIME S * CIPROFLOXACIN S * CLINDAMYCIN S * ERYTHROMYCIN R * PENICILLIN S * VANCOMYCIN S PHYSICAL EXAMINATION: GENERAL: VSS, NAD HEENT: Unremarkable NECK: Supple, trach-> midline CHEST: Equal chest rise bilaterally, without dyspnea on observation HEART: Pulse RRR ABDOMEN: EXTREMITIES: Warm SKIN: Warm, dry ID ASSESSMENT: 46 yo M w/PMHx Crohn's disease admitted with: 1. Sepsis, status post perforated viscus repair. * MICRO: Abdominal fluid culture growing Proteus mirabilis, E. coli, enterococcus species and strep * PATHO REPORT: A-Sigmoid colon, segmental resection: -- Perforation site with transmural ulcer and granulation tissue formation. -- Abscess cavity in pericolic adipose tissue. -- Multiple foci of deep fissuring ulcer with granulation tissue formation. -- Thickened muscularis propria. -- Poorly formed epithelioid granulomas. -- Reactive lymph nodes. -- Resection margins are viable. -- No evidence of malignancy. 2. Postoperative respiratory failure=> HCAP w/infiltrate developing on CXR 02/05 => EXTUBATED AND STABLE 4. Anemia with persistent thrombocytopenia, possibly secondary to sepsis and antibiotics.=> IMPROVED * Zosyn was changed to Levaquin. * rule out heparin-induced thrombocytopenia versus other etiologies, 6. Status post acute renal failure. 7. LIVER DX: Fatty liver w/necroinflammatory activity, no fibrosis --> DDx Hemochromotosis ? (+)Iron deposit on patho report ? * A trichrome stain shows no evidence of fibrosis. A reticulin stain shows distorted architecture of hepatic plates with normal thickness. Rare iron deposition is identified in the iron stain. A PAS with diastase stain is negative for Alpha-1 antitrypsin globules. B-Liver, segment 5, core needle biopsy:-- Steatohepatitis with minimal necroinflammatory activity and no fibrosis. (-)MRSA Nares INVASIVES: * ETT, NGT, STEVE, FC, PICC 02/07 ABX ALLERGIES: KNDA CURRENT ABX: TOTAL ABX DAY #9 => Vanco IV, Merrem, Flagyl S/P Zosyn ID RECOMMENDATIONS: 1. Continue current ABX => WBC elevated; PLTs improved once Zosyn DC'd 2. Liver w/Iron deposit on patho report -> Does he need work up for Hemochromatosis ? 3. Await resolution of abdominal sepsis . . Problems: Consultation Date/Type/Reason Admit Date/Time Feb 01, 2017 at 03:10 Initial Consult Date 02/02/17 Type of Consultation: ID Referring Provider: VINCE PADGETT Exam/Review of Systems Vital Signs Vitals Vital Signs Date Time Temp Pulse Resp B/P Pulse Ox O2 Delivery O2 Flow Rate FiO2 02/08/17 12:00 111 02/08/17 11:00 28 122/82 93 Nasal Cannula 02/08/17 08:00 97.7 02/07/17 20:00 3.0 02/07/17 12:00 40 Intake and Output 02/07/17 02/07/17 02/08/17 15:00 23:00 07:00 Intake Total 0 ml 380 ml 860 ml Output Total 1825 ml 1550 ml 1150 ml Balance -1825 ml -1170 ml -290 ml Results Result Diagram: 02/08/17 0530 02/08/17 0530 Results 24 hrs Laboratory Tests Test 02/08/17 05:30 White Blood Count 14.5 H Red Blood Count 2.75 L Hemoglobin 7.7 L Hematocrit 24.8 L Mean Corpuscular Volume 90.2 Mean Corpuscular Hemoglobin 28.0 L Mean Corpuscular Hemoglobin Concent 31.0 L Red Cell Distribution Width 15.6 H Platelet Count 175 # Mean Platelet Volume 13.2 H Neutrophils % 92.7 H Lymphocytes % 3.6 L Monocytes % 2.1 Eosinophils % 0.0 Basophils % 0.1 Nucleated Red Blood Cells % 0.0 Neutrophils # 13.4 H Lymphocytes # 0.5 L Monocytes # 0.3 Eosinophils # 0.0 Basophils # 0.0 Nucleated Red Blood Cells # 0.0 Prothrombin Time 14.7 H Prothrombin Time Ratio 1.1 INR International Normalized Ratio 1.15 Activated Partial Thromboplast Time 34.3 Sodium Level 146 H Potassium Level 3.4 L Chloride Level 108 Carbon Dioxide Level 25 Anion Gap 16 Blood Urea Nitrogen 26 H Creatinine 0.85 Glucose Level 173 Lactic Acid Level 1.3 Calcium Level 7.3 L Phosphorus Level 4.1 Magnesium Level 1.7 Total Bilirubin 0.2 Direct Bilirubin 0.00 Indirect Bilirubin 0.2 Aspartate Amino Transf (AST/SGOT) 24 Alanine Aminotransferase (ALT/SGPT) 28 Alkaline Phosphatase 58 B-Type Natriuretic Peptide 4070 H Total Protein 4.4 L Albumin 2.1 L Globulin 2.50 Albumin/Globulin Ratio 0.76 Medications Medications Current Medications Ondansetron HCl (Zofran Inj) 4 mg Q6H PRN IV NAUSEA AND/OR VOMITING; Start at 03:30 Metoclopramide HCl (Reglan) 10 mg Q6H IV Last administered on 02/08/17 12:24; Admin Dose 10 MG; Start 02/01/17 at 03:30 Hydromorphone HCl (Dilaudid) 1 mg Q4H PRN IV pain Last administered on 17:29; Admin Dose 1 MG; Start 02/01/17 at 03:30 Pantoprazole (Protonix Iv) 40 mg DAILY@06 IV Last administered on 02/08/17 05: 29; Admin Dose 40 MG; Start 02/01/17 at 06:00 Acetaminophen/ Hydrocodone Bitart ([place] (5/325)) 1 tab Q4H PRN PO PAIN LEVEL 4 -7; Start 02/01/17 at 20:30 Acetaminophen/ Hydrocodone Bitart ([place] (5/325)) 2 tab Q4H PRN PO PAIN LEVEL 7 -10; Start 02/01/17 at 20:30 Hydromorphone HCl (Dilaudid) 0.5 mg Q2 PRN IV PAIN; Start 02/01/17 at 20:30 Hydromorphone HCl (Dilaudid) 1 mg Q2 PRN IV PAIN Last administered on 11:57; Admin Dose 1 MG; Start 02/01/17 at 20:30 Docusate Sodium (Colace) 100 mg BID PRN PO CONSTIPATION; Start 02/01/17 at 20: 30 Bisacodyl (Dulcolax Supp) 10 mg BID PRN [place] CONSTIPATION; Start 02/01/17 at 20: 30 Sodium Biphosphate/ Sodium Phosphate (Fleet Enema) 133 ml BID PRN [place] CONSTIPATION; Start 02/01/17 at 20:30 Enoxaparin Sodium 40 mg 40 mg DAILY SC Last administered on 02/02/17 08:38; Admin Dose 40 MG; Start 02/02/17 at 09:00; Status Future Hold Propofol (Diprivan) 100 ml @ 2.202 mls/ hr Q12H IV Last administered on 08:04; Admin Dose 17.616 MLS/HR; Start 02/01/17 at 23:30 Ketorolac Tromethamine 30 mg 30 mg Q6H PRN IV PAIN; Start 02/02/17 at 09:30 Fentanyl 100 ml @ 2.5 mls/hr TITRATE IV Last administered on 02/07/17 08:05; Admin Dose 2.5 MLS/HR; Start 02/04/17 at 11:00 Metronidazole 100 ml @ 100 mls/hr Q8 IVPB Last administered on 02/08/17 05:29 ; Admin Dose 100 MLS/HR; Start 02/04/17 at 15:00 Vancomycin HCl 250 ml @ 125 mls/hr Q12H IVPB Last administered on 02/08/17 05 :28; Admin Dose 125 MLS/HR; Start 02/05/17 at 06:00 Meropenem (Merrem 500 Mg/ 100 ml (Pmx)) 100 ml @ 200 mls/hr Q8 IVPB Last administered on 02/08/17 05:28; Admin Dose 200 MLS/HR; Start 02/05/17 at 22:00 Acetaminophen 650 mg 650 mg Q4H PRN GTB PAIN AND OR ELEVATED TEMP Last administered on 02/06/17 05:06; Admin Dose 650 MG; Start 02/05/17 at 18:30 Sodium Chloride 1,000 ml @ 100 mls/hr Q10H IV Last administered on 02/06/17 08:50; Admin Dose 100 MLS/HR; Start 02/06/17 at 08:30; Status Future Hold Norepinephrine 16 mg/Dextrose 500 ml @ 1.87 mls/hr TITRATE IV ; Start 02/06/17 at 12:00 Potassium Chloride/Dextrose/ Sod Cl (D5-1/2ns + KCl 40 Meq) 1,000 ml @ 60 mls/ hr [id number] IV Last administered on 02/08/17 12:24; Admin Dose 60 MLS/HR; Start 02/06/17 at 10:00 Salmeterol Xinafoate/ Fluticasone (Advair 250/50 Diskus) 1 inh BID INH Last administered on 02/08/17 08:58; Admin Dose 1 INH; Start 02/07/17 at 11:00 Furosemide (Lasix) 20 mg DAILY IV Last administered on 02/08/17 08:58; Admin Dose 20 MG; Start 02/07/17 at 10:00 Methylprednisolone Sodium Succinate (Solu-Medrol) 40 mg Q12 IV Last administered on 02/08/17 08:57; Admin Dose 40 MG; Start 02/07/17 at 12:30 IV Flush (NS 10 ml) 10 ml PRN PRN IV IV PROTOCOL; Start 02/07/17 at 14:30 Diphenhydramine HCl (Benadryl) 25 mg Q6H PRN IV itching ; Start 02/07/17 at 20: 00 DARIUSZ QUINTERO NP Feb 08, 2017 13:02
--- NOTE | 2017-02-08 14:48 | PN ---
Date/Time of Note Date/Time of Note DATE: 02/08/17 TIME: 14:44 Assessment/Plan Lines/Catheters IV Catheter Type (from Nrsg): PICC Line Zeng in Place (from Nrsg): Yes Assessment/Plan Assessment/Plan [facility] Progress Note Date of Service: 02/08/17 Today's Impression & Plan: Overall stable and improved. Off vent and breathing well. Abd remains benign. Hg stable. Can likely transfer to tele. Recovery will take extra time with likely need for rehab. D/w team. With above assessment, I've recommended the following for today: 1. Ok to transfer to tele 2. Labs in am 3. Slowly advance diet 4. Can consider dilaudid PHYSIOTHERAPY ASSISTANT for pain control 5. Cont gentle diuresis to BMP < 200 6. Social work and case management to please start working of possible rehab vs. home health nurse set up 7. Increase activity 8. Increase ICS 9. D/c Zeng in am Thank you again for your great care of this very pleasant patient and wonderful family. If there are any questions, please feel free to call me at [phone]. TOTAL VISIT TIME: 20 minutes of which more than half was spent in [id number] discussion with the patient, possibly including family, as well as coordination of care between multiple physicians and providers. Disclaimer: Inadvertent spelling or grammatical errors are likely due to EHR/ dictation software use and do not reflect on the overall quality of patient care. Updated Clinical Summary: a very pleasant 46-year-old gentleman with history of Crohn's disease as well as prior surgery for anal fistula approximately 5 years ago, and a torn meniscus repair on the left knee, presenting with abdominal pain associated with a few weeks' duration of diarrhea. S/p an otherwise uncomplicated diagnostic laparoscopy was converted first to hand assist and then to open exploration when perforated sigmoid colon was found and it was resected with a Deena type procedure and end colostomy as well as core needle liver biopsy, segment 5, due to presence of fatty liver disease, lysis of adhesions, and abdominal lavage on 02/01/17. Failed to wean off the vent through 02/06/17. PE was evaluated 02/07/[address] angio and no evidence found. CT abd/pelvis also did not show actionable findings (no abscess; bowel thickening somewhat expected). Extubated 02/07/17. COMORBIDITIES: 1. Crohn disease with perforation of sigmoid colon and sepsis. S/p an otherwise uncomplicated diagnostic laparoscopy was converted first to hand assist and then to open exploration when perforated sigmoid colon was found and it was resected with a Deena type procedure and end colostomy as well as core needle liver biopsy, segment 5, due to presence of fatty liver disease, lysis of adhesions, and abdominal lavage on 02/01/17. 2. Repair of a fistula approximately 5 years ago. 3. Torn meniscus on the left knee status post repair. Subjective: No major events or complaints overnight other than above; off the vent and no major pulmonary complaints; tolerating liquids; no abd pain and under control with medications; no n/v/d; no sob or cp; + flatus; + BM; - activity Objective: Vitals: See below Exam: GENERAL: On exam, the patient was laying in bed and appeared to be comfortable and in no acute distress. ABDOMEN: Soft, nontender and nondistended. Incision dressings are clean, dry and intact without any evidence of obvious underlying erythema, edema, discharge , or hernia. Surgery drain ss. Ostomy pink and viable; some air and stool in the bag. There are no peritoneal signs or guarding. SKIN: Skin appears to be pink and feels warm to touch. NEUROLOGIC: Patient is awake, alert and follows commands appropriately. Exam/Review of Systems Vital Signs Vitals Vital Signs Date Time Temp Pulse Resp B/P Pulse Ox O2 Delivery O2 Flow Rate FiO2 02/08/17 12:00 111 02/08/17 12:00 98.1 25 114/79 93 Nasal Cannula 02/08/17 08:00 3.0 02/07/17 12:00 40 Intake and Output 02/07/17 02/07/17 02/08/17 15:00 23:00 07:00 Intake Total 0 ml 380 ml 860 ml Output Total 1825 ml 1550 ml 1350 ml Balance -1825 ml -1170 ml -490 ml Results Result Diagram: 02/08/17 0530 02/08/1730 TI HILTON M.D. Feb 08, 2017 14:48
--- NOTE | 2017-02-08 15:01 | PN ---
Date/Time of Note Date/Time of Note DATE: 02/08/17 TIME: 14:50 Assessment/Plan VTE Prophylaxis VTE Prophylaxis Intervention: SCD's Lines/Catheters IV Catheter Type (from Nrs): PICC Line Central line still needed: Yes Urinary Cath still in place: Yes Reason Cath still needed: urinary retention Assessment/Plan Chief Complaint/Hosp Course Assessment/Plan: 46M with: 1. Perforated sigmoid colon 2/2 Severe Crohn's colitis - S/p Urgent Open Cronin's procedure with end colostomy, liver biopsy and abdominal lavage POD # 7 - f/u surgery rec's 2. Acute Resp failure / ?ARDS, Vent dependent - Continue vent mgt / abx 3. Chronic Crohn's disease with acute colitis and diarrhea: improved - Cultures growing ecoli / proteus / enterococcus - continue current abx 4. Persistent hypocalcemia and hypokalemia - replete as needed 5. Thrombocytopenia: ?HIT - plt nL now, monitor 6. SIRS with lactic acidosis 2/2 severe colitis - abx, f/u surgery and ID rec' s 7. Systemic shock likely hypovolemic from third spacing with hypoalbuminemia : improved, now off pressors 8. Hx of heavy alcohol and tobacco use just until admission - in house counsel on cessation 9. Probable underlying COPD and Cirrhosis based on hx which explains hypoalbuminemia - monitor CRITICAL CARE TIME: = 45 mins Problems: Subjective 24 Hr Interval Summary Free Text/Dictation Pt awake, tolerating liquid diet. Exam/Review of Systems Vital Signs Vitals Vital Signs Date Time Temp Pulse Resp B/P Pulse Ox O2 Delivery O2 Flow Rate FiO2 02/08/17 12:00 111 02/08/17 12:00 98.1 25 114/79 93 Nasal Cannula 02/08/17 08:00 3.0 02/07/17 12:00 40 Intake and Output 02/07/17 02/07/17 02/08/17 15:00 23:00 07:00 Intake Total 0 ml 380 ml 860 ml Output Total 1825 ml 1550 ml 1350 ml Balance -1825 ml -1170 ml -490 ml Exam Constitutional: awake, alert, NAD, Head: atraumatic, normocephalic Eyes: PERRL Respiratory: slightly diminished breath sounds Cardiovascular: tachycardic with regular rhythm Gastrointestinal: Soft, Right sided colostomy with brownish/greenish stool. surgical site covered Extremities: normal pulses, generalized edema on abd as well Results Result Diagram: 02/08/17 0530 02/08/17 0530 Results 24 hrs Laboratory Tests Test 02/08/17 05:30 White Blood Count 14.5 H Red Blood Count 2.75 L Hemoglobin 7.7 L Hematocrit 24.8 L Mean Corpuscular Volume 90.2 Mean Corpuscular Hemoglobin 28.0 L Mean Corpuscular Hemoglobin Concent 31.0 L Red Cell Distribution Width 15.6 H Platelet Count 175 # Mean Platelet Volume 13.2 H Neutrophils % 92.7 H Lymphocytes % 3.6 L Monocytes % 2.1 Eosinophils % 0.0 Basophils % 0.1 Nucleated Red Blood Cells % 0.0 Neutrophils # 13.4 H Lymphocytes # 0.5 L Monocytes # 0.3 Eosinophils # 0.0 Basophils # 0.0 Nucleated Red Blood Cells # 0.0 Prothrombin Time 14.7 H Prothrombin Time Ratio 1.1 INR International Normalized Ratio 1.15 Activated Partial Thromboplast Time 34.3 Sodium Level 146 H Potassium Level 3.4 L Chloride Level 108 Carbon Dioxide Level 25 Anion Gap 16 Blood Urea Nitrogen 26 H Creatinine 0.85 Glucose Level 173 Lactic Acid Level 1.3 Calcium Level 7.3 L Phosphorus Level 4.1 Magnesium Level 1.7 Total Bilirubin 0.2 Direct Bilirubin 0.00 Indirect Bilirubin 0.2 Aspartate Amino Transf (AST/SGOT) 24 Alanine Aminotransferase (ALT/SGPT) 28 Alkaline Phosphatase 58 B-Type Natriuretic Peptide 4070 H Total Protein 4.4 L Albumin 2.1 L Globulin 2.50 Albumin/Globulin Ratio 0.76 Medications Medications Current Medications Ondansetron HCl (Zofran Inj) 4 mg Q6H PRN IV NAUSEA AND/OR VOMITING; Start at 03:30 Metoclopramide HCl (Reglan) 10 mg Q6H IV Last administered on 02/08/17 12:24; Admin Dose 10 MG; Start 02/01/17 at 03:30 Hydromorphone HCl (Dilaudid) 1 mg Q4H PRN IV pain Last administered on 17:29; Admin Dose 1 MG; Start 02/01/17 at 03:30 Pantoprazole (Protonix Iv) 40 mg DAILY@06 IV Last administered on 02/08/17 05: 29; Admin Dose 40 MG; Start 02/01/17 at 06:00 Acetaminophen/ Hydrocodone Bitart ([place] (5/325)) 1 tab Q4H PRN PO PAIN LEVEL 4 -7; Start 02/01/17 at 20:30 Acetaminophen/ Hydrocodone Bitart ([place] (5/325)) 2 tab Q4H PRN PO PAIN LEVEL 7 -10; Start 02/01/17 at 20:30 Hydromorphone HCl (Dilaudid) 0.5 mg Q2 PRN IV PAIN; Start 02/01/17 at 20:30 Hydromorphone HCl (Dilaudid) 1 mg Q2 PRN IV PAIN Last administered on 11:57; Admin Dose 1 MG; Start 02/01/17 at 20:30 Docusate Sodium (Colace) 100 mg BID PRN PO CONSTIPATION; Start 02/01/17 at 20: 30 Bisacodyl (Dulcolax Supp) 10 mg BID PRN [place] CONSTIPATION; Start 02/01/17 at 20: 30 Sodium Biphosphate/ Sodium Phosphate (Fleet Enema) 133 ml BID PRN [place] CONSTIPATION; Start 02/01/17 at 20:30 Enoxaparin Sodium 40 mg 40 mg DAILY SC Last administered on 02/02/17 08:38; Admin Dose 40 MG; Start 02/02/17 at 09:00; Status Future Hold Propofol (Diprivan) 100 ml @ 2.202 mls/ hr Q12H IV Last administered on 08:04; Admin Dose 17.616 MLS/HR; Start 02/01/17 at 23:30 Ketorolac Tromethamine 30 mg 30 mg Q6H PRN IV PAIN; Start 02/02/17 at 09:30 Fentanyl 100 ml @ 2.5 mls/hr TITRATE IV Last administered on 02/07/17 08:05; Admin Dose 2.5 MLS/HR; Start 02/04/17 at 11:00 Metronidazole 100 ml @ 100 mls/hr Q8 IVPB Last administered on 02/08/17 05:29 ; Admin Dose 100 MLS/HR; Start 02/04/17 at 15:00 Vancomycin HCl 250 ml @ 125 mls/hr Q12H IVPB Last administered on 02/08/17 05 :28; Admin Dose 125 MLS/HR; Start 02/05/17 at 06:00 Meropenem (Merrem 500 Mg/ 100 ml (Pmx)) 100 ml @ 200 mls/hr Q8 IVPB Last administered on 02/08/17 05:28; Admin Dose 200 MLS/HR; Start 02/05/17 at 22:00 Acetaminophen 650 mg 650 mg Q4H PRN GTB PAIN AND OR ELEVATED TEMP Last administered on 02/06/17 05:06; Admin Dose 650 MG; Start 02/05/17 at 18:30 Sodium Chloride 1,000 ml @ 100 mls/hr Q10H IV Last administered on 02/06/17 08:50; Admin Dose 100 MLS/HR; Start 02/06/17 at 08:30; Status Future Hold Norepinephrine 16 mg/Dextrose 500 ml @ 1.87 mls/hr TITRATE IV ; Start 02/06/17 at 12:00 Potassium Chloride/Dextrose/ Sod Cl (D5-1/2ns + KCl 40 Meq) 1,000 ml @ 60 mls/ hr [id number] IV Last administered on 02/08/17 12:24; Admin Dose 60 MLS/HR; Start 02/06/17 at 10:00 Salmeterol Xinafoate/ Fluticasone (Advair 250/50 Diskus) 1 inh BID INH Last administered on 02/08/17 08:58; Admin Dose 1 INH; Start 02/07/17 at 11:00 Furosemide (Lasix) 20 mg DAILY IV Last administered on 02/08/17 08:58; Admin Dose 20 MG; Start 02/07/17 at 10:00 Methylprednisolone Sodium Succinate (Solu-Medrol) 40 mg Q12 IV Last administered on 02/08/17 08:57; Admin Dose 40 MG; Start 02/07/17 at 12:30 IV Flush (NS 10 ml) 10 ml PRN PRN IV IV PROTOCOL; Start 02/07/17 at 14:30 Diphenhydramine HCl (Benadryl) 25 mg Q6H PRN IV itching ; Start 02/07/17 at 20: 00 SUSAN SANCHEZ Feb 08, 2017 15:01
--- NOTE | 2017-02-08 15:04 | PN ---
Date/Time of Note Date/Time of Note DATE: 02/08/17 TIME: 15:00 Assessment/Plan VTE Prophylaxis VTE Prophylaxis Intervention: SCD's Lines/Catheters IV Catheter Type (from [facility]): PICC Line Central line still needed: Yes Urinary Cath still in place: Yes Reason Cath still needed: urinary retention Assessment/Plan Assessment/Plan Perforated sigmoid colon * Laparoscopic exploration,open sigmoid colectomy with Deena end colostomy with liver biopsy segment V * h/o Crohn's disease * S/P extubation * Thrombocytopenia Plan: * continue present management * Will start on Pentasa 1 gram qid Subjective 24 Hr Interval Summary Free Text/Dictation * Course reviewed with RN * patient seen and examined * S/P extubation 02/07/2017 * Good colostomy output Exam/Review of Systems Vital Signs Vitals Vital Signs Date Time Temp Pulse Resp B/P Pulse Ox O2 Delivery O2 Flow Rate FiO2 02/08/17 12:00 111 02/08/17 12:00 98.1 25 114/79 93 Nasal Cannula 02/08/17 08:00 3.0 02/07/17 12:00 40 Intake and Output 02/07/17 02/07/17 02/08/17 14:59 22:59 06:59 Intake Total 0 ml 380 ml 860 ml Output Total 1725 ml 1500 ml 1350 ml Balance -1725 ml -1120 ml -490 ml Exam Constitutional: alert, oriented Head: normocephalic Eyes: PERRL, nl sclera Respiratory: clear to auscultation, diminished breath sounds, normal air movement Cardiovascular: nl pulses, regular rate and rhythm Gastrointestinal: bowel sounds, non-tender, other (colostomy functioning), soft , No rebound or guarding Neurological: nl speech Skin: nl turgor Results Result Diagram: 02/08/17 0530 02/08/17 0530 Results 24 hrs Laboratory Tests Test 02/08/17 05:30 White Blood Count 14.5 H Red Blood Count 2.75 L Hemoglobin 7.7 L Hematocrit 24.8 L Mean Corpuscular Volume 90.2 Mean Corpuscular Hemoglobin 28.0 L Mean Corpuscular Hemoglobin Concent 31.0 L Red Cell Distribution Width 15.6 H Platelet Count 175 # Mean Platelet Volume 13.2 H Neutrophils % 92.7 H Lymphocytes % 3.6 L Monocytes % 2.1 Eosinophils % 0.0 Basophils % 0.1 Nucleated Red Blood Cells % 0.0 Neutrophils # 13.4 H Lymphocytes # 0.5 L Monocytes # 0.3 Eosinophils # 0.0 Basophils # 0.0 Nucleated Red Blood Cells # 0.0 Prothrombin Time 14.7 H Prothrombin Time Ratio 1.1 INR International Normalized Ratio 1.15 Activated Partial Thromboplast Time 34.3 Sodium Level 146 H Potassium Level 3.4 L Chloride Level 108 Carbon Dioxide Level 25 Anion Gap 16 Blood Urea Nitrogen 26 H Creatinine 0.85 Glucose Level 173 Lactic Acid Level 1.3 Calcium Level 7.3 L Phosphorus Level 4.1 Magnesium Level 1.7 Total Bilirubin 0.2 Direct Bilirubin 0.00 Indirect Bilirubin 0.2 Aspartate Amino Transf (AST/SGOT) 24 Alanine Aminotransferase (ALT/SGPT) 28 Alkaline Phosphatase 58 B-Type Natriuretic Peptide 4070 H Total Protein 4.4 L Albumin 2.1 L Globulin 2.50 Albumin/Globulin Ratio 0.76 Medications Medications Current Medications Ondansetron HCl (Zofran Inj) 4 mg Q6H PRN IV NAUSEA AND/OR VOMITING; Start at 03:30 Metoclopramide HCl (Reglan) 10 mg Q6H IV Last administered on 02/08/17 12:24; Admin Dose 10 MG; Start 02/01/17 at 03:30 Hydromorphone HCl (Dilaudid) 1 mg Q4H PRN IV pain Last administered on 17:29; Admin Dose 1 MG; Start 02/01/17 at 03:30 Pantoprazole (Protonix Iv) 40 mg DAILY@06 IV Last administered on 02/08/17 05: 29; Admin Dose 40 MG; Start 02/01/17 at 06:00 Acetaminophen/ Hydrocodone Bitart ([place] (5/325)) 1 tab Q4H PRN PO PAIN LEVEL 4 -7; Start 02/01/17 at 20:30 Acetaminophen/ Hydrocodone Bitart ([place] (5/325)) 2 tab Q4H PRN PO PAIN LEVEL 7 -10; Start 02/01/17 at 20:30 Hydromorphone HCl (Dilaudid) 0.5 mg Q2 PRN IV PAIN; Start 02/01/17 at 20:30 Hydromorphone HCl (Dilaudid) 1 mg Q2 PRN IV PAIN Last administered on 11:57; Admin Dose 1 MG; Start 02/01/17 at 20:30 Docusate Sodium (Colace) 100 mg BID PRN PO CONSTIPATION; Start 02/01/17 at 20: 30 Bisacodyl (Dulcolax Supp) 10 mg BID PRN [place] CONSTIPATION; Start 02/01/17 at 20: 30 Sodium Biphosphate/ Sodium Phosphate (Fleet Enema) 133 ml BID PRN [place] CONSTIPATION; Start 02/01/17 at 20:30 Enoxaparin Sodium 40 mg 40 mg DAILY SC Last administered on 02/02/17 08:38; Admin Dose 40 MG; Start 02/02/17 at 09:00; Status Future Hold Propofol (Diprivan) 100 ml @ 2.202 mls/ hr Q12H IV Last administered on 08:04; Admin Dose 17.616 MLS/HR; Start 02/01/17 at 23:30 Ketorolac Tromethamine 30 mg 30 mg Q6H PRN IV PAIN; Start 02/02/17 at 09:30 Fentanyl 100 ml @ 2.5 mls/hr TITRATE IV Last administered on 02/07/17 08:05; Admin Dose 2.5 MLS/HR; Start 02/04/17 at 11:00 Metronidazole 100 ml @ 100 mls/hr Q8 IVPB Last administered on 02/08/17 05:29 ; Admin Dose 100 MLS/HR; Start 02/04/17 at 15:00 Vancomycin HCl 250 ml @ 125 mls/hr Q12H IVPB Last administered on 02/08/17 05 :28; Admin Dose 125 MLS/HR; Start 02/05/17 at 06:00 Meropenem (Merrem 500 Mg/ 100 ml (Pmx)) 100 ml @ 200 mls/hr Q8 IVPB Last administered on 02/08/17 05:28; Admin Dose 200 MLS/HR; Start 02/05/17 at 22:00 Acetaminophen 650 mg 650 mg Q4H PRN GTB PAIN AND OR ELEVATED TEMP Last administered on 02/06/17 05:06; Admin Dose 650 MG; Start 02/05/17 at 18:30 Sodium Chloride 1,000 ml @ 100 mls/hr Q10H IV Last administered on 02/06/17 08:50; Admin Dose 100 MLS/HR; Start 02/06/17 at 08:30; Status Future Hold Norepinephrine 16 mg/Dextrose 500 ml @ 1.87 mls/hr TITRATE IV ; Start 02/06/17 at 12:00 Potassium Chloride/Dextrose/ Sod Cl (D5-1/2ns + KCl 40 Meq) 1,000 ml @ 60 mls/ hr [id number] IV Last administered on 02/08/17 12:24; Admin Dose 60 MLS/HR; Start 02/06/17 at 10:00 Salmeterol Xinafoate/ Fluticasone (Advair 250/50 Diskus) 1 inh BID INH Last administered on 02/08/17 08:58; Admin Dose 1 INH; Start 02/07/17 at 11:00 Furosemide (Lasix) 20 mg DAILY IV Last administered on 02/08/17 08:58; Admin Dose 20 MG; Start 02/07/17 at 10:00 Methylprednisolone Sodium Succinate (Solu-Medrol) 40 mg Q12 IV Last administered on 02/08/17 08:57; Admin Dose 40 MG; Start 02/07/17 at 12:30 IV Flush (NS 10 ml) 10 ml PRN PRN IV IV PROTOCOL; Start 02/07/17 at 14:30 Diphenhydramine HCl (Benadryl) 25 mg Q6H PRN IV itching ; Start 02/07/17 at 20: 00 SANDRA DAVIS MD Feb 08, 2017 15:04
[2017-02-08] MEDS ORDERED: POTASSIUM CHLORIDE (SR) 20 MEQ TAB PO STA (15:06)
--- NOTE | 2017-02-08 15:10 | CONS ---
Date/Time of Note Date/Time of Note DATE: 02/08/17 TIME: 15:08 Assessment/Plan Assessment/Plan Additional Assessment/Plan Perforated colon status post surgery Severe sepsis Respiratory failure-extubated Low normal ejection fraction 50% Volume overload Crohn's disease Thrombocytopenia, improving Anemia -Patient status post extubation, continue Lasix 20 mg IV twice daily as blood pressure and renal function permits. Supplement potassium to maintain above 4.0 and magnesium above 2.0. Patient with bilateral superficial thrombi as well as thrombus around PICC line. Would strongly consider removing PICC line and obtain peripheral access. Consultation Date/Type/Reason Admit Date/Time Feb 01, 2017 at 03:10 Initial Consult Date 02/02/17 Type of Consultation: cv Referring Provider: VINCE PADGETT 24 HR Interval Summary Free Text/Dictation Denies chest pain, shortness of breath is better Exam/Review of Systems Vital Signs Vitals Vital Signs Date Time Temp Pulse Resp B/P Pulse Ox O2 Delivery O2 Flow Rate FiO2 02/08/17 12:00 111 02/08/17 12:00 98.1 25 114/79 93 Nasal Cannula 02/08/17 08:00 3.0 02/07/17 12:00 40 Intake and Output 02/07/17 02/07/17 02/08/17 15:00 23:00 07:00 Intake Total 0 ml 380 ml 860 ml Output Total 1825 ml 1550 ml 1350 ml Balance -1825 ml -1170 ml -490 ml Exam No apparent distress Constitutional: alert, oriented Head: normocephalic Respiratory: other (Coarse breath sounds bilaterally, no wheezing) Cardiovascular: other (S1-S2 heard), regular rate and rhythm Gastrointestinal: bowel sounds, other (Bandages), soft Extremities: edema Results Result Diagram: 02/08/17 0530 02/08/17 0530 Results 24 hrs Laboratory Tests Test 02/08/17 05:30 White Blood Count 14.5 H Red Blood Count 2.75 L Hemoglobin 7.7 L Hematocrit 24.8 L Mean Corpuscular Volume 90.2 Mean Corpuscular Hemoglobin 28.0 L Mean Corpuscular Hemoglobin Concent 31.0 L Red Cell Distribution Width 15.6 H Platelet Count 175 # Mean Platelet Volume 13.2 H Neutrophils % 92.7 H Lymphocytes % 3.6 L Monocytes % 2.1 Eosinophils % 0.0 Basophils % 0.1 Nucleated Red Blood Cells % 0.0 Neutrophils # 13.4 H Lymphocytes # 0.5 L Monocytes # 0.3 Eosinophils # 0.0 Basophils # 0.0 Nucleated Red Blood Cells # 0.0 Prothrombin Time 14.7 H Prothrombin Time Ratio 1.1 INR International Normalized Ratio 1.15 Activated Partial Thromboplast Time 34.3 Sodium Level 146 H Potassium Level 3.4 L Chloride Level 108 Carbon Dioxide Level 25 Anion Gap 16 Blood Urea Nitrogen 26 H Creatinine 0.85 Glucose Level 173 Lactic Acid Level 1.3 Calcium Level 7.3 L Phosphorus Level 4.1 Magnesium Level 1.7 Total Bilirubin 0.2 Direct Bilirubin 0.00 Indirect Bilirubin 0.2 Aspartate Amino Transf (AST/SGOT) 24 Alanine Aminotransferase (ALT/SGPT) 28 Alkaline Phosphatase 58 B-Type Natriuretic Peptide 4070 H Total Protein 4.4 L Albumin 2.1 L Globulin 2.50 Albumin/Globulin Ratio 0.76 Medications Medications Current Medications Ondansetron HCl (Zofran Inj) 4 mg Q6H PRN IV NAUSEA AND/OR VOMITING; Start at 03:30 Metoclopramide HCl (Reglan) 10 mg Q6H IV Last administered on 02/08/17 12:24; Admin Dose 10 MG; Start 02/01/17 at 03:30 Hydromorphone HCl (Dilaudid) 1 mg Q4H PRN IV pain Last administered on 17:29; Admin Dose 1 MG; Start 02/01/17 at 03:30 Pantoprazole (Protonix Iv) 40 mg DAILY@06 IV Last administered on 02/08/17 05: 29; Admin Dose 40 MG; Start 02/01/17 at 06:00 Acetaminophen/ Hydrocodone Bitart ([place] (5/325)) 1 tab Q4H PRN PO PAIN LEVEL 4 -7; Start 02/01/17 at 20:30 Acetaminophen/ Hydrocodone Bitart ([place] (5/325)) 2 tab Q4H PRN PO PAIN LEVEL 7 -10; Start 02/01/17 at 20:30 Hydromorphone HCl (Dilaudid) 0.5 mg Q2 PRN IV PAIN; Start 02/01/17 at 20:30 Hydromorphone HCl (Dilaudid) 1 mg Q2 PRN IV PAIN Last administered on 11:57; Admin Dose 1 MG; Start 02/01/17 at 20:30 Docusate Sodium (Colace) 100 mg BID PRN PO CONSTIPATION; Start 02/01/17 at 20: 30 Bisacodyl (Dulcolax Supp) 10 mg BID PRN [place] CONSTIPATION; Start 02/01/17 at 20: 30 Sodium Biphosphate/ Sodium Phosphate (Fleet Enema) 133 ml BID PRN [place] CONSTIPATION; Start 02/01/17 at 20:30 Enoxaparin Sodium 40 mg 40 mg DAILY SC Last administered on 02/02/17 08:38; Admin Dose 40 MG; Start 02/02/17 at 09:00; Status Future Hold Propofol (Diprivan) 100 ml @ 2.202 mls/ hr Q12H IV Last administered on 08:04; Admin Dose 17.616 MLS/HR; Start 02/01/17 at 23:30 Ketorolac Tromethamine 30 mg 30 mg Q6H PRN IV PAIN; Start 02/02/17 at 09:30 Fentanyl 100 ml @ 2.5 mls/hr TITRATE IV Last administered on 02/07/17 08:05; Admin Dose 2.5 MLS/HR; Start 02/04/17 at 11:00 Metronidazole 100 ml @ 100 mls/hr Q8 IVPB Last administered on 02/08/17 05:29 ; Admin Dose 100 MLS/HR; Start 02/04/17 at 15:00 Vancomycin HCl 250 ml @ 125 mls/hr Q12H IVPB Last administered on 02/08/17 05 :28; Admin Dose 125 MLS/HR; Start 02/05/17 at 06:00 Meropenem (Merrem 500 Mg/ 100 ml (Pmx)) 100 ml @ 200 mls/hr Q8 IVPB Last administered on 02/08/17 05:28; Admin Dose 200 MLS/HR; Start 02/05/17 at 22:00 Acetaminophen 650 mg 650 mg Q4H PRN GTB PAIN AND OR ELEVATED TEMP Last administered on 02/06/17 05:06; Admin Dose 650 MG; Start 02/05/17 at 18:30 Sodium Chloride 1,000 ml @ 100 mls/hr Q10H IV Last administered on 02/06/17 08:50; Admin Dose 100 MLS/HR; Start 02/06/17 at 08:30; Status Future Hold Norepinephrine 16 mg/Dextrose 500 ml @ 1.87 mls/hr TITRATE IV ; Start 02/06/17 at 12:00 Potassium Chloride/Dextrose/ Sod Cl (D5-1/2ns + KCl 40 Meq) 1,000 ml @ 60 mls/ hr [id number] IV Last administered on 02/08/17 12:24; Admin Dose 60 MLS/HR; Start 02/06/17 at 10:00 Salmeterol Xinafoate/ Fluticasone (Advair 250/50 Diskus) 1 inh BID INH Last administered on 02/08/17 08:58; Admin Dose 1 INH; Start 02/07/17 at 11:00 Furosemide (Lasix) 20 mg DAILY IV Last administered on 02/08/17 08:58; Admin Dose 20 MG; Start 02/07/17 at 10:00 Methylprednisolone Sodium Succinate (Solu-Medrol) 40 mg Q12 IV Last administered on 02/08/17 08:57; Admin Dose 40 MG; Start 02/07/17 at 12:30 IV Flush (NS 10 ml) 10 ml PRN PRN IV IV PROTOCOL; Start 02/07/17 at 14:30 Diphenhydramine HCl (Benadryl) 25 mg Q6H PRN IV itching ; Start 02/07/17 at 20: 00 Mesalamine (Pentasa) 1,000 mg QID PO ; Start 02/08/17 at 17:00; Status Keith Arita DO Feb 08, 2017 15:09
[2017-02-08] MEDS ORDERED: MAGNESIUM SULFATE 2 GM/50 ML 50 ML IVPB ONE (15:30)
[2017-02-08] MEDS ORDERED: SOD CHLORIDE 0.9% 100 ML ONE (17:48)
[2017-02-08] MEDS: MESALAMINE (SR) 250 MG CAP PO SCH ×2 (18:13→20:57)
[2017-02-08 22:06] LABS: HEPARIN INDUCED PLATELET AB NEGATIVE (NEGATIVE)
[2017-02-09] VITALS (13 sets, daily range): BP systolic 126–143; BP diastolic 73–92; PULSE 66–94; RESP 16–22
[2017-02-09] MEDS: LEVALBUTEROL (NEB) 0.63 MG/3 ML AMP HHN PRN (01:11)
[2017-02-09 02:35] LABS: PLATELET ANTIBODY - IGA NEGATIVE (NEGATIVE); PLATELET ANTIBODY - IGG NEGATIVE (NEGATIVE); PLATELET ANTIBODY - IGM NEGATIVE (NEGATIVE)
--- NOTE | 2017-02-09 02:58 | RADRPT ---
PROCEDURE: XR Abdomen. CLINICAL INDICATION: Abdominal pain. TECHNIQUE: AP abdomen x-ray. COMPARISON: There are no similar studies submitted for comparison. FINDINGS: Dilated loops of bowel are seen throughout the abdomen. Midline surgical clips are noted. A drain age catheter tip is within the pelvis. There are no definite densities overlying the kidneys and ur eters. IMPRESSION: Dilated bowel loops likely due to an ileus although obstruction would not be excluded. RPTAT: HIKT .Lake Estrella MD, MD Date Time Electronically viewed and signed by .Lake Estrella MD, MD on 02/09/2017 02:58 .T/
[2017-02-09] MEDS: ONDANSETRON INJ 8 MG in DEXTROSE 5% 50 ML IV SCH ×4 (04:08→19:49)
[2017-02-09] MEDS: METOCLOPRAMIDE 10 MG INJ IV SCH ×4 (04:09→21:40)
[2017-02-09] MEDS: D5W-0.45 NACL + KCL 40 MEQ 1,000 ML IV SCH (04:40)
[2017-02-09] MEDS: PANTOPRAZOLE 40 MG INJ IV SCH (05:34)
[2017-02-09] MEDS: FUROSEMIDE 20 MG INJ IV SCH ×2 (05:35→18:49)
[2017-02-09] MEDS: MEROPENEM 500 MG/100 ML (PMX) 100 ML IVPB SCH ×3 (05:35→21:40)
[2017-02-09] MEDS: metroNIDAZOLE 500 MG/NS (PMX) 100 ML IVPB SCH ×3 (06:33→22:33)
[2017-02-09] MEDS: VANCOMYCIN 1 GM in NS 250 ML IVPB SCH ×2 (07:12→18:49)
[2017-02-09 07:41] LABS: INR 1.01; PROTIME 13.3 Sec (12.2-14.2)
[2017-02-09 07:56] LABS: ALBUMIN 2.2 g/dl (3.3-4.9); ALBUMIN/GLOBULIN RATIO 0.7; BILIRUBIN,INDIRECT 0.1 mg/dl (0-1.1); BILIRUBIN,TOTAL 0.1 mg/dl (0.2-1.3); CALCIUM 7.6 mg/dl (8.4-10.2); CREATININE 0.72 mg/dl (0.61-1.24); MAGNESIUM 1.8 mg/dl (1.7-2.5); PHOSPHORUS 3.8 mg/dl (2.5-4.9); POTASSIUM 3.7 mmol/L (3.5-5.1); TOTAL PROTEIN 5.3 g/dl (6.1-8.1)
[2017-02-09] MEDS: ALBUTEROL/IPRATROPIUM (NEB) 3 ML AMP NEB PRN (08:00)
--- NOTE | 2017-02-09 08:26 | PN ---
Date/Time of Note Date/Time of Note DATE: 02/09/17 TIME: 08:23 Assessment/Plan Lines/Catheters IV Catheter Type (from Nrsg): Peripheral IV Zeng in Place (from Nrsg): Yes Assessment/Plan Assessment/Plan [facility] Progress Note Date of Service: 02/09/17 Today's Impression & Plan: Overall stable and improving. Abd remains benign. Hg stable. Can likely transfer to reg floor. Recovery will take extra time with likely need for rehab. D/w team. Updated his father over the phone yesterday. With above assessment, I've recommended the following for today: 1. Ok to transfer to regular floor 2. Labs in am 3. Advance diet as tolerated to regular 4. Can consider dilaudid ADMINISTRATIVE SERVICES SPECIALIST for pain control 5. Cont gentle diuresis to BMP < 200 6. Social work and case management to please start working on possible rehab vs. home health nurse set up 7. Increase activity 8. Increase ICS 9. I'll d/c surgical drain in 24-48 hrs Thank you again for your great care of this very pleasant patient and wonderful family. If there are any questions, please feel free to call me at [phone]. TOTAL VISIT TIME: 20 minutes of which more than half was spent in [id number] discussion with the patient, possibly including family, as well as coordination of care between multiple physicians and providers. Disclaimer: Inadvertent spelling or grammatical errors are likely due to EHR/ dictation software use and do not reflect on the overall quality of patient care. Updated Clinical Summary: a very pleasant 46-year-old gentleman with history of Crohn's disease as well as prior surgery for anal fistula approximately 5 years ago, and a torn meniscus repair on the left knee, presenting with abdominal pain associated with a few weeks' duration of diarrhea. S/p an otherwise uncomplicated diagnostic laparoscopy was converted first to hand assist and then to open exploration when perforated sigmoid colon was found and it was resected with a Deena type procedure and end colostomy as well as core needle liver biopsy, segment 5, due to presence of fatty liver disease, lysis of adhesions, and abdominal lavage on 02/01/17. Failed to wean off the vent through 02/06/17. PE was evaluated 02/07/[address] angio and no evidence found. CT abd/pelvis also did not show actionable findings (no abscess; bowel thickening somewhat expected). Extubated 02/07/17. COMORBIDITIES: 1. Crohn disease with perforation of sigmoid colon and sepsis. S/p an otherwise uncomplicated diagnostic laparoscopy was converted first to hand assist and then to open exploration when perforated sigmoid colon was found and it was resected with a Deena type procedure and end colostomy as well as core needle liver biopsy, segment 5, due to presence of fatty liver disease, lysis of adhesions, and abdominal lavage on 02/01/17. 2. Repair of a fistula approximately 5 years ago. 3. Torn meniscus on the left knee status post repair. Subjective: No major events or complaints overnight; no major pulmonary complaints; tolerating liquids; no abd pain and under control with medications; no n/v/d; no sob or cp; + flatus; + BM; minimal activity Objective: Vitals: See below Exam: GENERAL: On exam, the patient was laying in bed and appeared to be comfortable and in no acute distress. ABDOMEN: Soft, nontender and nondistended. Incision dressings are clean, dry and intact without any evidence of obvious underlying erythema, edema, discharge , or hernia. Surgery drain ss. Ostomy pink and viable; some air and stool in the bag. There are no peritoneal signs or guarding. SKIN: Skin appears to be pink and feels warm to touch. NEUROLOGIC: Patient is awake, alert and follows commands appropriately. Exam/Review of Systems Vital Signs Vitals Vital Signs Date Time Temp Pulse Resp B/P Pulse Ox O2 Delivery O2 Flow Rate FiO2 02/09/17 07:08 98.2 90 20 126/84 92 02/09/17 01:22 Nasal Cannula 2.0 02/07/17 12:00 40 Intake and Output 02/08/17 02/08/17 02/09/17 15:00 23:00 07:00 Intake Total 790 ml 1340 ml 784 ml Output Total 1670 ml 1125 ml 1090 ml Balance -880 ml 215 ml -306 ml Results Result Diagram: 02/08/17 0530 02/08/17 0530 TI HILTON M.D. Feb 09, 2017 08:26
[2017-02-09] MEDS: SALMETEROL/FLUTICASONE 250/50 INHA INH SCH ×2 (09:35→20:01)
[2017-02-09] MEDS: METHYLPREDNISOLONE 40 MG INJ IV SCH ×2 (09:35→19:49)
[2017-02-09] MEDS: MESALAMINE (SR) 250 MG CAP PO SCH ×2 (09:35→13:01)
[2017-02-09 10:35] LABS: ADD SCAN DIFF NO
[2017-02-09 10:47] LABS: ALBUMIN 2.3 g/dl (3.3-4.9); CALCIUM 7.7 mg/dl (8.4-10.2); CREATININE 0.73 mg/dl (0.61-1.24); PHOSPHORUS 3.9 mg/dl (2.5-4.9); POTASSIUM 3.7 mmol/L (3.5-5.1)
[2017-02-09 11:09] LABS: ABNORMAL IP MESSAGE 1; HEMATOCRIT 28.3 % (42.0-52.0); MEAN CORPUSCULAR HEMOGLOBIN 28.7 pg (29.0-33.0); MEAN CORPUSCULAR HGB CONC 31.8 g/dl (32.0-37.0); MEAN CORPUSCULAR VOLUME 90.1 fl (82.0-101.0); MEAN PLATELET VOLUME 14.1 fl (7.4-10.4); PLATELET COUNT 251 10^3/UL (140-415); RED BLOOD COUNT 3.14 10^6/ul (4.70-6.10); RED CELL DISTRIBUTION WIDTH 15.5 % (11.5-14.5); WHITE BLOOD COUNT 18.9 10^3/ul (4.8-10.8)
--- NOTE | 2017-02-09 11:14 | PN ---
Date/Time of Note Date/Time of Note DATE: 02/09/17 TIME: 11:12 Assessment/Plan VTE Prophylaxis VTE Prophylaxis Intervention: SCD's Lines/Catheters IV Catheter Type (from Nrs): Peripheral IV Urinary Cath still in place: Yes Reason Cath still needed: urinary retention Assessment/Plan Chief Complaint/Hosp Course Assessment/Plan: 46M with: 1. Perforated sigmoid colon 2/2 Severe Crohn's colitis - S/p Urgent Open Cronin's procedure with end colostomy, liver biopsy and abdominal lavage POD # 8 - f/u surgery rec's, will also get ARU eval 2. Acute Resp failure / ?ARDS, Vent dependent - Continue vent mgt / abx 3. Chronic Crohn's disease with acute colitis and diarrhea: improved - Cultures growing ecoli / proteus / enterococcus - continue current abx 4. Persistent hypocalcemia and hypokalemia - replete as needed 5. Thrombocytopenia: ?HIT - plt nL now, monitor 6. SIRS with lactic acidosis 2/2 severe colitis - abx, f/u surgery and ID rec' s 7. Systemic shock likely hypovolemic from third spacing with hypoalbuminemia : improved, now off pressors 8. Hx of heavy alcohol and tobacco use just until admission - reimbursement counselor on cessation 9. Probable underlying COPD and Cirrhosis based on hx which explains hypoalbuminemia - monitor 10. Anemia - transfuse per surgery rec's. Problems: Subjective 24 Hr Interval Summary Free Text/Dictation Pt had some nausea smpts this AM. Exam/Review of Systems Vital Signs Vitals Vital Signs Date Time Temp Pulse Resp B/P Pulse Ox O2 Delivery O2 Flow Rate FiO2 02/09/17 08:33 70 02/09/17 08:01 22 92 Nasal Cannula 2.0 02/09/17 07:08 98.2 126/84 02/07/17 12:00 40 Intake and Output 02/08/17 02/08/17 02/09/17 15:00 23:00 07:00 Intake Total 790 ml 1340 ml 784 ml Output Total 1670 ml 1125 ml 1090 ml Balance -880 ml 215 ml -306 ml Exam Constitutional: awake, alert, NAD, family at bedside Head: atraumatic, normocephalic Eyes: PERRL Respiratory: slightly diminished breath sounds Cardiovascular: tachycardic with regular rhythm Gastrointestinal: Soft, Right sided colostomy with brownish/greenish stool. surgical site covered Extremities: normal pulses, generalized edema on abd as well Results Result Diagram: 02/09/1763402/09/1735 Results 24 hrs Laboratory Tests Test 02/09/17 06:35 White Blood Count 18.9 #H Red Blood Count 3.14 L Hemoglobin 9.0 L Hematocrit 28.3 L Mean Corpuscular Volume 90.1 Mean Corpuscular Hemoglobin 28.7 L Mean Corpuscular Hemoglobin Concent 31.8 L Red Cell Distribution Width 15.5 H Platelet Count 251 # Mean Platelet Volume 14.1 H Neutrophils % 92.6 H Lymphocytes % 2.7 L Monocytes % 3.5 Eosinophils % 0.0 Basophils % 0.2 Nucleated Red Blood Cells % 0.2 H Neutrophils # 17.5 H Lymphocytes # 0.5 L Monocytes # 0.7 Eosinophils # 0.0 Basophils # 0.0 Nucleated Red Blood Cells # 0.0 Prothrombin Time 13.3 Prothrombin Time Ratio 1.0 INR International Normalized Ratio 1.01 Activated Partial Thromboplast Time 31.0 Sodium Level 144 Potassium Level 3.7 Chloride Level 111 H Carbon Dioxide Level 24 Anion Gap 13 Blood Urea Nitrogen 31 H Creatinine 0.73 Glucose Level 130 Calcium Level 7.7 L Phosphorus Level 3.9 Magnesium Level 1.8 Total Bilirubin 0.1 L Direct Bilirubin 0.00 Indirect Bilirubin 0.1 Aspartate Amino Transf (AST/SGOT) 32 Alanine Aminotransferase (ALT/SGPT) 25 Alkaline Phosphatase 109 # B-Type Natriuretic Peptide 2450 H Total Protein 5.3 L Albumin 2.3 L Globulin 3.10 Albumin/Globulin Ratio 0.70 Medications Medications Current Medications Metoclopramide HCl (Reglan) 10 mg Q6H IV Last administered on 02/09/17 09:35; Admin Dose 10 MG; Start 02/01/17 at 03:30 Hydromorphone HCl (Dilaudid) 1 mg Q4H PRN IV pain Last administered on 17:29; Admin Dose 1 MG; Start 02/01/17 at 03:30 Pantoprazole (Protonix Iv) 40 mg DAILY@06 IV Last administered on 02/09/17 05: 34; Admin Dose 40 MG; Start 02/01/17 at 06:00 Acetaminophen/ Hydrocodone Bitart ([place] (5/325)) 1 tab Q4H PRN PO PAIN LEVEL 4 -7; Start 02/01/17 at 20:30 Acetaminophen/ Hydrocodone Bitart ([place] (5/325)) 2 tab Q4H PRN PO PAIN LEVEL 7 -10; Start 02/01/17 at 20:30 Hydromorphone HCl (Dilaudid) 0.5 mg Q2 PRN IV PAIN; Start 02/01/17 at 20:30 Hydromorphone HCl (Dilaudid) 1 mg Q2 PRN IV PAIN Last administered on 11:57; Admin Dose 1 MG; Start 02/01/17 at 20:30 Docusate Sodium (Colace) 100 mg BID PRN PO CONSTIPATION; Start 02/01/17 at 20: 30 Bisacodyl (Dulcolax Supp) 10 mg BID PRN [place] CONSTIPATION; Start 02/01/17 at 20: 30 Sodium Biphosphate/ Sodium Phosphate 133 ml 133 ml BID PRN [place] CONSTIPATION; Start 02/01/17 at 20:30 Metronidazole 100 ml @ 100 mls/hr Q8 IVPB Last administered on 02/09/17 06:33 ; Admin Dose 100 MLS/HR; Start 02/04/17 at 15:00 Vancomycin HCl 250 ml @ 125 mls/hr Q12H IVPB Last administered on 02/09/17 07 :12; Admin Dose 125 MLS/HR; Start 02/05/17 at 06:00 Meropenem (Merrem 500 Mg/ 100 ml (Pmx)) 100 ml @ 200 mls/hr Q8 IVPB Last administered on 02/09/17 05:35; Admin Dose 200 MLS/HR; Start 02/05/17 at 22:00 Acetaminophen (Tylenol Liquid) 650 mg Q4H PRN GTB PAIN AND OR ELEVATED TEMP Last administered on 02/06/17 05:06; Admin Dose 650 MG; Start 02/05/17 at 18:30 Salmeterol Xinafoate/ Fluticasone (Advair 250/50 Diskus) 1 inh BID INH Last administered on 02/09/17 09:35; Admin Dose 1 INH; Start 02/07/17 at 11:00 Methylprednisolone Sodium Succinate (Solu-Medrol) 40 mg Q12 IV Last administered on 02/09/17 09:35; Admin Dose 40 MG; Start 02/07/17 at 12:30 IV Flush (NS 10 ml) 10 ml PRN PRN IV IV PROTOCOL; Start 02/07/17 at 14:30 Diphenhydramine HCl (Benadryl) 25 mg Q6H PRN IV itching ; Start 02/07/17 at 20: 00 Mesalamine 1000 mg 1,000 mg QID PO Last administered on 02/09/17 09:35; Admin Dose 1,000 MG; Start 02/08/17 at 17:00 Ondansetron HCl/ Dextrose (Zofran Inj/D5W) 54 ml @ 108 mls/hr Q6H IV Last administered on 02/09/17 07:49; Admin Dose 108 MLS/HR; Start 02/09/17 at 01:30 ; Stop 02/10/17 at 01:30 Ondansetron HCl (Zofran Inj) 8 mg Q6H PRN IV NAUSEA AND/OR VOMITING; Start at 15:30; Status SUSAN US Feb 09, 2017 11:14
[2017-02-09] MEDS ORDERED: ONDANSETRON INJ 8 MG in SOD CHLORIDE 0.9% 50 ML IV PRN (11:30)
--- NOTE | 2017-02-09 11:44 | CONS ---
Date/Time of Note Date/Time of Note DATE: 02/09/17 TIME: 11:41 Assessment/Plan Assessment/Plan Additional Assessment/Plan Assessment recommendations; 1. Patient admitted for sigmoid perforation status post laparoscopic resection with end-to-end anastomosis. 2. Mild pulmonary edema. 3. Electrolyte imbalance with interval correction. 4. Likely underlying COPD. 5. Leukocytosis, likely a steroid response. Continue current treatment. Obtain a follow-up chest x-ray. Consultation Date/Type/Reason Admit Date/Time Feb 01, 2017 at 03:10 Initial Consult Date 02/02/17 Type of Consultation: Pulmonary Referring Provider: VINCE PADGETT 24 HR Interval Summary Free Text/Dictation Patient condition stable. Complains of occasional episodes of shortness of breath and chest tightness without any overt wheezing. Denies any cough or sputum production. Denies any nausea vomiting. Denies any abdominal pain. General exam; middle-aged male, awake alert currently in no distress. Exam/Review of Systems Vital Signs Vitals Vital Signs Date Time Temp Pulse Resp B/P Pulse Ox O2 Delivery O2 Flow Rate FiO2 02/09/17 11:37 98.1 81 22 138/85 93 02/09/17 08:01 Nasal Cannula 2.0 02/07/17 12:00 40 Intake and Output 02/08/17 02/08/17 02/09/17 15:00 23:00 07:00 Intake Total 790 ml 1340 ml 784 ml Output Total 1670 ml 1125 ml 1090 ml Balance -880 ml 215 ml -306 ml Exam HEENT examined; supple neck, no JVD. No lymphadenopathy. Midline trachea. No thyromegaly. Pharynx is clear. Pupils are midsize reactive to light. Chest examination; clear to auscultation bilaterally. No added sound. S1-S2 audible, no murmurs. Regular rhythm. Abdomen exam is; soft, nontender. Normal distention. No organomegaly. Bowel sounds audible. Extremity exam is; no peripheral edema. Pulses 1+ bilaterally. Next [employer] examination; no focal deficit. Results Result Diagram: 02/09/17 0635 02/09/17 0635 Results 24 hrs Laboratory Tests Test 02/09/17 06:35 White Blood Count 18.9 #H Red Blood Count 3.14 L Hemoglobin 9.0 L Hematocrit 28.3 L Mean Corpuscular Volume 90.1 Mean Corpuscular Hemoglobin 28.7 L Mean Corpuscular Hemoglobin Concent 31.8 L Red Cell Distribution Width 15.5 H Platelet Count 251 # Mean Platelet Volume 14.1 H Neutrophils % 92.6 H Lymphocytes % 2.7 L Monocytes % 3.5 Eosinophils % 0.0 Basophils % 0.2 Nucleated Red Blood Cells % 0.2 H Neutrophils # 17.5 H Lymphocytes # 0.5 L Monocytes # 0.7 Eosinophils # 0.0 Basophils # 0.0 Nucleated Red Blood Cells # 0.0 Prothrombin Time 13.3 Prothrombin Time Ratio 1.0 INR International Normalized Ratio 1.01 Activated Partial Thromboplast Time 31.0 Sodium Level 144 Potassium Level 3.7 Chloride Level 111 H Carbon Dioxide Level 24 Anion Gap 13 Blood Urea Nitrogen 31 H Creatinine 0.73 Glucose Level 130 Calcium Level 7.7 L Phosphorus Level 3.9 Magnesium Level 1.8 Total Bilirubin 0.1 L Direct Bilirubin 0.00 Indirect Bilirubin 0.1 Aspartate Amino Transf (AST/SGOT) 32 Alanine Aminotransferase (ALT/SGPT) 25 Alkaline Phosphatase 109 # B-Type Natriuretic Peptide 2450 H Total Protein 5.3 L Albumin 2.3 L Globulin 3.10 Albumin/Globulin Ratio 0.70 Medications Medications Current Medications Metoclopramide HCl (Reglan) 10 mg Q6H IV Last administered on 02/09/17 09:35; Admin Dose 10 MG; Start 02/01/17 at 03:30 Hydromorphone HCl (Dilaudid) 1 mg Q4H PRN IV pain Last administered on 17:29; Admin Dose 1 MG; Start 02/01/17 at 03:30 Pantoprazole (Protonix Iv) 40 mg DAILY@06 IV Last administered on 02/09/17 05: 34; Admin Dose 40 MG; Start 02/01/17 at 06:00 Acetaminophen/ Hydrocodone Bitart ([place] (5/325)) 1 tab Q4H PRN PO PAIN LEVEL 4 -7; Start 02/01/17 at 20:30 Acetaminophen/ Hydrocodone Bitart ([place] (5/325)) 2 tab Q4H PRN PO PAIN LEVEL 7 -10; Start 02/01/17 at 20:30 Hydromorphone HCl (Dilaudid) 0.5 mg Q2 PRN IV PAIN; Start 02/01/17 at 20:30 Hydromorphone HCl (Dilaudid) 1 mg Q2 PRN IV PAIN Last administered on 11:57; Admin Dose 1 MG; Start 02/01/17 at 20:30 Docusate Sodium (Colace) 100 mg BID PRN PO CONSTIPATION; Start 02/01/17 at 20: 30 Bisacodyl (Dulcolax Supp) 10 mg BID PRN [place] CONSTIPATION; Start 02/01/17 at 20: 30 Sodium Biphosphate/ Sodium Phosphate 133 ml 133 ml BID PRN [place] CONSTIPATION; Start 02/01/17 at 20:30 Metronidazole 100 ml @ 100 mls/hr Q8 IVPB Last administered on 02/09/17 06:33 ; Admin Dose 100 MLS/HR; Start 02/04/17 at 15:00 Vancomycin HCl 250 ml @ 125 mls/hr Q12H IVPB Last administered on 02/09/17 07 :12; Admin Dose 125 MLS/HR; Start 02/05/17 at 06:00 Meropenem (Merrem 500 Mg/ 100 ml (Pmx)) 100 ml @ 200 mls/hr Q8 IVPB Last administered on 02/09/17 05:35; Admin Dose 200 MLS/HR; Start 02/05/17 at 22:00 Acetaminophen (Tylenol Liquid) 650 mg Q4H PRN GTB PAIN AND OR ELEVATED TEMP Last administered on 02/06/17 05:06; Admin Dose 650 MG; Start 02/05/17 at 18:30 Salmeterol Xinafoate/ Fluticasone (Advair 250/50 Diskus) 1 inh BID INH Last administered on 02/09/17 09:35; Admin Dose 1 INH; Start 02/07/17 at 11:00 Methylprednisolone Sodium Succinate (Solu-Medrol) 40 mg Q12 IV Last administered on 02/09/17 09:35; Admin Dose 40 MG; Start 02/07/17 at 12:30 IV Flush (NS 10 ml) 10 ml PRN PRN IV IV PROTOCOL; Start 02/07/17 at 14:30 Diphenhydramine HCl (Benadryl) 25 mg Q6H PRN IV itching ; Start 02/07/17 at 20: 00 Mesalamine 1000 mg 1,000 mg QID PO Last administered on 02/09/17 09:35; Admin Dose 1,000 MG; Start 02/08/17 at 17:00 Ondansetron HCl 8 mg/Dextrose 54 ml @ 108 mls/hr Q6H IV Last administered on 07:49; Admin Dose 108 MLS/HR; Start 02/09/17 at 01:30; Stop 02/10/17 at 01:30 Ondansetron HCl/ Sodium Chloride (Zofran Inj/NS) 54 ml @ 216 mls/hr Q6H PRN IV NAUSEA AND/OR VOMITING; Start 02/09/17 at 11:30 RICHAR ADRIAN Feb 09, 2017 11:43
--- NOTE | 2017-02-09 14:21 | CONS ---
Date/Time of Note Date/Time of Note DATE: 02/09/17 TIME: 14:18 Assessment/Plan Assessment/Plan Additional Assessment/Plan Perforated colon status post surgery Severe sepsis Respiratory failure-extubated Low normal ejection fraction 50% Volume overload Crohn's disease Thrombocytopenia, improving Anemia -Peripheral edema and lung examination improved, continue Lasix 20 mg IV twice daily as blood pressure and renal function permits. Supplement potassium to maintain above 4.0 and magnesium above 2.0. Consultation Date/Type/Reason Admit Date/Time Feb 01, 2017 at 03:10 Initial Consult Date 02/02/17 Type of Consultation: cv Referring Provider: VINCE PADGETT 24 HR Interval Summary Free Text/Dictation Denies shortness of breath, still difficulty with p.o. intake Exam/Review of Systems Vital Signs Vitals Vital Signs Date Time Temp Pulse Resp B/P Pulse Ox O2 Delivery O2 Flow Rate FiO2 02/09/17 12:49 85 02/09/17 11:37 98.1 22 138/85 93 02/09/17 08:01 Nasal Cannula 2.0 02/07/17 12:00 40 Intake and Output 02/08/17 02/08/17 02/09/17 15:00 23:00 07:00 Intake Total 790 ml 1340 ml 784 ml Output Total 1670 ml 1125 ml 1090 ml Balance -880 ml 215 ml -306 ml Exam No apparent distress Constitutional: alert, oriented Head: normocephalic Respiratory: other (Coarse breath sounds bilaterally, no wheezing) Cardiovascular: other (S1-S2 heard), regular rate and rhythm Gastrointestinal: bowel sounds, soft Extremities: edema Results Result Diagram: 02/09/17 0635 02/09/17 0635 Results 24 hrs Laboratory Tests Test 02/09/17 06:35 White Blood Count 18.9 #H Red Blood Count 3.14 L Hemoglobin 9.0 L Hematocrit 28.3 L Mean Corpuscular Volume 90.1 Mean Corpuscular Hemoglobin 28.7 L Mean Corpuscular Hemoglobin Concent 31.8 L Red Cell Distribution Width 15.5 H Platelet Count 251 # Mean Platelet Volume 14.1 H Neutrophils % 92.6 H Lymphocytes % 2.7 L Monocytes % 3.5 Eosinophils % 0.0 Basophils % 0.2 Nucleated Red Blood Cells % 0.2 H Neutrophils # 17.5 H Lymphocytes # 0.5 L Monocytes # 0.7 Eosinophils # 0.0 Basophils # 0.0 Nucleated Red Blood Cells # 0.0 Prothrombin Time 13.3 Prothrombin Time Ratio 1.0 INR International Normalized Ratio 1.01 Activated Partial Thromboplast Time 31.0 Sodium Level 144 Potassium Level 3.7 Chloride Level 111 H Carbon Dioxide Level 24 Anion Gap 13 Blood Urea Nitrogen 31 H Creatinine 0.73 Glucose Level 130 Calcium Level 7.7 L Phosphorus Level 3.9 Magnesium Level 1.8 Total Bilirubin 0.1 L Direct Bilirubin 0.00 Indirect Bilirubin 0.1 Aspartate Amino Transf (AST/SGOT) 32 Alanine Aminotransferase (ALT/SGPT) 25 Alkaline Phosphatase 109 # B-Type Natriuretic Peptide 2450 H Total Protein 5.3 L Albumin 2.3 L Globulin 3.10 Albumin/Globulin Ratio 0.70 Medications Medications Current Medications Metoclopramide HCl (Reglan) 10 mg Q6H IV Last administered on 02/09/17 09:35; Admin Dose 10 MG; Start 02/01/17 at 03:30 Hydromorphone HCl (Dilaudid) 1 mg Q4H PRN IV pain Last administered on 17:29; Admin Dose 1 MG; Start 02/01/17 at 03:30 Pantoprazole (Protonix Iv) 40 mg DAILY@06 IV Last administered on 02/09/17 05: 34; Admin Dose 40 MG; Start 02/01/17 at 06:00 Acetaminophen/ Hydrocodone Bitart ([place] (5/325)) 1 tab Q4H PRN PO PAIN LEVEL 4 -7; Start 02/01/17 at 20:30 Acetaminophen/ Hydrocodone Bitart ([place] (5/325)) 2 tab Q4H PRN PO PAIN LEVEL 7 -10; Start 02/01/17 at 20:30 Hydromorphone HCl (Dilaudid) 0.5 mg Q2 PRN IV PAIN; Start 02/01/17 at 20:30 Hydromorphone HCl (Dilaudid) 1 mg Q2 PRN IV PAIN Last administered on 11:57; Admin Dose 1 MG; Start 02/01/17 at 20:30 Docusate Sodium (Colace) 100 mg BID PRN PO CONSTIPATION; Start 02/01/17 at 20: 30 Bisacodyl (Dulcolax Supp) 10 mg BID PRN [place] CONSTIPATION; Start 02/01/17 at 20: 30 Sodium Biphosphate/ Sodium Phosphate 133 ml 133 ml BID PRN [place] CONSTIPATION; Start 02/01/17 at 20:30 Metronidazole 100 ml @ 100 mls/hr Q8 IVPB Last administered on 02/09/17 06:33 ; Admin Dose 100 MLS/HR; Start 02/04/17 at 15:00 Vancomycin HCl 250 ml @ 125 mls/hr Q12H IVPB Last administered on 02/09/17 07 :12; Admin Dose 125 MLS/HR; Start 02/05/17 at 06:00 Meropenem (Merrem 500 Mg/ 100 ml (Pmx)) 100 ml @ 200 mls/hr Q8 IVPB Last administered on 02/09/17 13:53; Admin Dose 200 MLS/HR; Start 02/05/17 at 22:00 Acetaminophen (Tylenol Liquid) 650 mg Q4H PRN GTB PAIN AND OR ELEVATED TEMP Last administered on 02/06/17 05:06; Admin Dose 650 MG; Start 02/05/17 at 18:30 Salmeterol Xinafoate/ Fluticasone (Advair 250/50 Diskus) 1 inh BID INH Last administered on 02/09/17 09:35; Admin Dose 1 INH; Start 02/07/17 at 11:00 Methylprednisolone Sodium Succinate (Solu-Medrol) 40 mg Q12 IV Last administered on 02/09/17 09:35; Admin Dose 40 MG; Start 02/07/17 at 12:30 IV Flush (NS 10 ml) 10 ml PRN PRN IV IV PROTOCOL; Start 02/07/17 at 14:30 Diphenhydramine HCl (Benadryl) 25 mg Q6H PRN IV itching ; Start 02/07/17 at 20: 00 Mesalamine 1000 mg 1,000 mg QID PO Last administered on 02/09/17 13:01; Admin Dose 1,000 MG; Start 02/08/17 at 17:00 Ondansetron HCl 8 mg/Dextrose 54 ml @ 108 mls/hr Q6H IV Last administered on 13:27; Admin Dose 108 MLS/HR; Start 02/09/17 at 01:30; Stop 02/10/17 at 01:30 Ondansetron HCl/ Sodium Chloride (Zofran Inj/NS) 54 ml @ 216 mls/hr Q6H PRN IV NAUSEA AND/OR VOMITING; Start 02/09/17 at 11:30 Keith Gandhi DO Feb 09, 2017 14:21
[2017-02-09 14:25] LABS: LYMPHOCYTES # 0.4 10^3/ul (0.8-2.9); MONOCYTE # 0.2 10^3/ul (0.3-0.9)
[2017-02-09] MEDS ORDERED: MAGNESIUM SULFATE 2 GM/50 ML 50 ML IVPB ONE (14:30)
[2017-02-09] MEDS ORDERED: ONDANSETRON 4 MG INJ IV PRN (15:30)
--- NOTE | 2017-02-09 16:53 | PN ---
Date/Time of Note Date/Time of Note DATE: 02/09/17 TIME: 16:47 Assessment/Plan VTE Prophylaxis VTE Prophylaxis Intervention: SCD's Lines/Catheters IV Catheter Type (from [facility]): Peripheral IV Urinary Cath still in place: Yes Reason Cath still needed: urinary retention Assessment/Plan Assessment/Plan erforated sigmoid colon * Laparoscopic exploration,open sigmoid colectomy with Deena end colostomy with liver biopsy segment V * h/o Crohn's disease * S/P extubation * Thrombocytopenia Plan: * continue present management * d/c pentasa * will reevaluate for crohns disease once recovered from surgery Subjective 24 Hr Interval Summary Free Text/Dictation * Course reviewed with RN * Patient seen and examined * Refused pentasa alleging causing his vomiting Exam/Review of Systems Vital Signs Vitals Vital Signs Date Time Temp Pulse Resp B/P Pulse Ox O2 Delivery O2 Flow Rate FiO2 02/09/17 16:15 78 02/09/17 16:00 2.0 02/09/17 15:06 98.2 16 138/87 92 02/09/17 08:01 Nasal Cannula 02/07/17 12:00 40 Intake and Output 02/08/17 02/08/17 02/09/17 15:00 23:00 07:00 Intake Total 790 ml 1340 ml 784 ml Output Total 1670 ml 1125 ml 1090 ml Balance -880 ml 215 ml -306 ml Exam Constitutional: alert Eyes: PERRL, nl sclera Neck: non-tender, supple Respiratory: congested cough, crackles/rales, diminished breath sounds Cardiovascular: nl pulses, regular rate and rhythm Gastrointestinal: bowel sounds, distended, non-tender, other (colostomy functioning), soft Genitourinary - Male: other (abbott catheter in placed) Musculoskeletal: muscle weakness Extremities: normal pulses Neurological: nl speech Skin: nl turgor Results Result Diagram: 02/09/17 0635 02/09/17 0635 Results 24 hrs Laboratory Tests Test 02/09/17 06:35 White Blood Count 18.9 #H Red Blood Count 3.14 L Hemoglobin 9.0 L Hematocrit 28.3 L Mean Corpuscular Volume 90.1 Mean Corpuscular Hemoglobin 28.7 L Mean Corpuscular Hemoglobin Concent 31.8 L Red Cell Distribution Width 15.5 H Platelet Count 251 # Mean Platelet Volume 14.1 H Neutrophils % 95.0 H Band Neutrophils % 2.0 Lymphocytes % 2.0 L Monocytes % 1.0 Eosinophils % Basophils % Nucleated Red Blood Cells % Neutrophils # 18.0 H Lymphocytes # 0.4 L Monocytes # 0.2 L Eosinophils # Basophils # Nucleated Red Blood Cells # Differential Comment MANUAL DIFF Prothrombin Time 13.3 Prothrombin Time Ratio 1.0 INR International Normalized Ratio 1.01 Activated Partial Thromboplast Time 31.0 Sodium Level 144 Potassium Level 3.7 Chloride Level 111 H Carbon Dioxide Level 24 Anion Gap 13 Blood Urea Nitrogen 31 H Creatinine 0.73 Glucose Level 130 Calcium Level 7.7 L Phosphorus Level 3.9 Magnesium Level 1.8 Total Bilirubin 0.1 L Direct Bilirubin 0.00 Indirect Bilirubin 0.1 Aspartate Amino Transf (AST/SGOT) 32 Alanine Aminotransferase (ALT/SGPT) 25 Alkaline Phosphatase 109 # B-Type Natriuretic Peptide 2450 H Total Protein 5.3 L Albumin 2.3 L Globulin 3.10 Albumin/Globulin Ratio 0.70 Medications Medications Current Medications Metoclopramide HCl (Reglan) 10 mg Q6H IV Last administered on 02/09/17 15:44; Admin Dose 10 MG; Start 02/01/17 at 03:30 Hydromorphone HCl (Dilaudid) 1 mg Q4H PRN IV pain Last administered on 17:29; Admin Dose 1 MG; Start 02/01/17 at 03:30 Pantoprazole (Protonix Iv) 40 mg DAILY@06 IV Last administered on 02/09/17 05: 34; Admin Dose 40 MG; Start 02/01/17 at 06:00 Acetaminophen/ Hydrocodone Bitart ([place] (5/325)) 1 tab Q4H PRN PO PAIN LEVEL 4 -7; Start 02/01/17 at 20:30 Acetaminophen/ Hydrocodone Bitart ([place] (5/325)) 2 tab Q4H PRN PO PAIN LEVEL 7 -10; Start 02/01/17 at 20:30 Hydromorphone HCl (Dilaudid) 0.5 mg Q2 PRN IV PAIN; Start 02/01/17 at 20:30 Hydromorphone HCl (Dilaudid) 1 mg Q2 PRN IV PAIN Last administered on 11:57; Admin Dose 1 MG; Start 02/01/17 at 20:30 Docusate Sodium (Colace) 100 mg BID PRN PO CONSTIPATION; Start 02/01/17 at 20: 30 Bisacodyl (Dulcolax Supp) 10 mg BID PRN [place] CONSTIPATION; Start 02/01/17 at 20: 30 Sodium Biphosphate/ Sodium Phosphate 133 ml 133 ml BID PRN [place] CONSTIPATION; Start 02/01/17 at 20:30 Metronidazole 100 ml @ 100 mls/hr Q8 IVPB Last administered on 02/09/17 14:50 ; Admin Dose 100 MLS/HR; Start 02/04/17 at 15:00 Vancomycin HCl 250 ml @ 125 mls/hr Q12H IVPB Last administered on 02/09/17 07 :12; Admin Dose 125 MLS/HR; Start 02/05/17 at 06:00 Meropenem (Merrem 500 Mg/ 100 ml (Pmx)) 100 ml @ 200 mls/hr Q8 IVPB Last administered on 02/09/17 13:53; Admin Dose 200 MLS/HR; Start 02/05/17 at 22:00 Acetaminophen (Tylenol Liquid) 650 mg Q4H PRN GTB PAIN AND OR ELEVATED TEMP Last administered on 02/06/17 05:06; Admin Dose 650 MG; Start 02/05/17 at 18:30 Salmeterol Xinafoate/ Fluticasone (Advair 250/50 Diskus) 1 inh BID INH Last administered on 02/09/17 09:35; Admin Dose 1 INH; Start 02/07/17 at 11:00 Methylprednisolone Sodium Succinate (Solu-Medrol) 40 mg Q12 IV Last administered on 02/09/17 09:35; Admin Dose 40 MG; Start 02/07/17 at 12:30 IV Flush (NS 10 ml) 10 ml PRN PRN IV IV PROTOCOL; Start 02/07/17 at 14:30 Diphenhydramine HCl (Benadryl) 25 mg Q6H PRN IV itching ; Start 02/07/17 at 20: 00 Mesalamine 1000 mg 1,000 mg QID PO Last administered on 02/09/17 13:01; Admin Dose 1,000 MG; Start 02/08/17 at 17:00 Ondansetron HCl 8 mg/Dextrose 54 ml @ 108 mls/hr Q6H IV Last administered on t 13:27; Admin Dose 108 MLS/HR; Start 02/09/17 at 01:30; Stop 02/10/17 at 01:30 Ondansetron HCl/ Sodium Chloride (Zofran Inj/NS) 54 ml @ 216 mls/hr Q6H PRN IV NAUSEA AND/OR VOMITING; Start 02/09/17 at 11:30 SANDRA DAVIS MD Feb 09, 2017 16:53
[2017-02-09] MEDS: HYDROCODONE/APAP (5/325) TAB PO PRN (18:48)
--- NOTE | 2017-02-09 18:49 | CONS ---
Date/Time of Note Date/Time of Note DATE: 02/09/17 TIME: 18:39 Assessment/Plan Assessment/Plan Chief Complaint/Hosp Course ID PROGRESS NOTE TOTAL ABX DAY #10 => Vanco IV, Merrem, Flagyl S/P Zosyn 02/03 & 02/04 Zosyn was DC'd due to progressive thrombocytopenia -- PLTs improved 24H INTERVAL SUMMARY * TNS out of ICU to Tele --- A/A/O -> doing OK no c/o, VSS, no fevers, on supplemental O2 via NC * WBC continues to rise, reported nausea w/Mesalamine now DC'd w/plan to Tx Crohn's once recovered * ABD X-ray today : Dilated bowel loops likely due to an ileus although obstruction would not be excluded. * Colostomy producing output * CXR 02/08/17: worsening pulm edema / PNA: Possible layering left pleural effusion and stable retrocardiac opacity. New discoid atelectasis versus infiltrate in the right mid lung. * PATHO REPORT: LIVER: A trichrome stain shows no evidence of fibrosis. A reticulin stain shows distorted architecture of hepatic plates with normal thickness. Rare iron deposition is identified in the iron stain. A PAS with diastase stain is negative for Alpha-1 antitrypsin globules. B-Liver, segment 5 , core needle biopsy:-- Steatohepatitis with minimal necroinflammatory activity and no fibrosis. MICRO: BODY FLUID CULTURE Final Organism 1 ESCHERICHIA COLI QUANTITY 3+ Organism 2 PROTEUS MIRABILIS QUANTITY 2+ Organism 3 ENTEROCOCCUS SPECIES QUANTITY ISOLATED FROM BROTH ONLY Organism 4 STREP GRP D NOT ENTEROCOCCUS QUANTITY ISOLATED FROM BROTH ONLY PHYSICAL EXAMINATION: GENERAL: VSS, NAD HEENT: Unremarkable NECK: Supple, trach-> midline CHEST: Equal chest rise bilaterally, without dyspnea on observation HEART: Pulse RRR ABDOMEN: STEVE present EXTREMITIES: Warm SKIN: Warm, dry ID ASSESSMENT: 46 yo M w/PMHx Crohn's disease admitted with: 1. Sepsis, status post perforated viscus repair. * MICRO: Abdominal fluid culture growing Proteus mirabilis, E. coli, enterococcus species and strep * PATHO REPORT: A-Sigmoid colon, segmental resection: -- Perforation site with transmural ulcer and granulation tissue formation. -- Abscess cavity in pericolic adipose tissue. -- Multiple foci of deep fissuring ulcer with granulation tissue formation. -- Thickened muscularis propria. -- Poorly formed epithelioid granulomas. -- Reactive lymph nodes. -- Resection margins are viable. -- No evidence of malignancy. 2. Postoperative respiratory failure=> HCAP w/infiltrate developing on CXR 02/05 => EXTUBATED AND STABLE 4. Anemia with persistent thrombocytopenia, possibly secondary to sepsis and antibiotics.=> IMPROVED * Zosyn was changed to Levaquin. * rule out heparin-induced thrombocytopenia versus other etiologies, 6. Status post acute renal failure. 7. LIVER DX: Fatty liver w/necroinflammatory activity, no fibrosis (-)MRSA Nares INVASIVES: * ETT, NGT, STEVE, FC, PICC 02/07 ABX ALLERGIES: KNDA CURRENT ABX: TOTAL ABX DAY #10 => Vanco IV, Merrem, Flagyl S/P Zosyn ID RECOMMENDATIONS: 1. Continue current ABX => WBC elevated; PLTs improved once Zosyn DC'd 2. Plan for increased activity and progression of diet . . . Problems: Consultation Date/Type/Reason Admit Date/Time Feb 01, 2017 at 03:10 Initial Consult Date 02/02/17 Type of Consultation: cv Referring Provider: VINCE PADGETT Exam/Review of Systems Vital Signs Vitals Vital Signs Date Time Temp Pulse Resp B/P Pulse Ox O2 Delivery O2 Flow Rate FiO2 02/09/17 16:15 78 02/09/17 16:00 2.0 02/09/17 15:06 98.2 16 138/87 92 02/09/17 08:01 Nasal Cannula 02/07/17 12:00 40 Intake and Output 02/08/17 02/08/17 02/09/17 15:00 23:00 07:00 Intake Total 790 ml 1340 ml 784 ml Output Total 1670 ml 1125 ml 1090 ml Balance -880 ml 215 ml -306 ml Results Result Diagram: 02/09/17 0635 02/09/17 0635 Results 24 hrs Laboratory Tests Test 02/09/17 06:35 White Blood Count 18.9 #H Red Blood Count 3.14 L Hemoglobin 9.0 L Hematocrit 28.3 L Mean Corpuscular Volume 90.1 Mean Corpuscular Hemoglobin 28.7 L Mean Corpuscular Hemoglobin Concent 31.8 L Red Cell Distribution Width 15.5 H Platelet Count 251 # Mean Platelet Volume 14.1 H Neutrophils % 95.0 H Band Neutrophils % 2.0 Lymphocytes % 2.0 L Monocytes % 1.0 Eosinophils % Basophils % Nucleated Red Blood Cells % Neutrophils # 18.0 H Lymphocytes # 0.4 L Monocytes # 0.2 L Eosinophils # Basophils # Nucleated Red Blood Cells # Differential Comment MANUAL DIFF Prothrombin Time 13.3 Prothrombin Time Ratio 1.0 INR International Normalized Ratio 1.01 Activated Partial Thromboplast Time 31.0 Sodium Level 144 Potassium Level 3.7 Chloride Level 111 H Carbon Dioxide Level 24 Anion Gap 13 Blood Urea Nitrogen 31 H Creatinine 0.73 Glucose Level 130 Calcium Level 7.7 L Phosphorus Level 3.9 Magnesium Level 1.8 Total Bilirubin 0.1 L Direct Bilirubin 0.00 Indirect Bilirubin 0.1 Aspartate Amino Transf (AST/SGOT) 32 Alanine Aminotransferase (ALT/SGPT) 25 Alkaline Phosphatase 109 # B-Type Natriuretic Peptide 2450 H Total Protein 5.3 L Albumin 2.3 L Globulin 3.10 Albumin/Globulin Ratio 0.70 Medications Medications Current Medications Metoclopramide HCl (Reglan) 10 mg Q6H IV Last administered on 02/09/17 15:44; Admin Dose 10 MG; Start 02/01/17 at 03:30 Hydromorphone HCl (Dilaudid) 1 mg Q4H PRN IV pain Last administered on 17:29; Admin Dose 1 MG; Start 02/01/17 at 03:30 Pantoprazole (Protonix Iv) 40 mg DAILY@06 IV Last administered on 02/09/17 05: 34; Admin Dose 40 MG; Start 02/01/17 at 06:00 Acetaminophen/ Hydrocodone Bitart ([place] (5/325)) 1 tab Q4H PRN PO PAIN LEVEL 4 -7; Start 02/01/17 at 20:30 Acetaminophen/ Hydrocodone Bitart ([place] (5/325)) 2 tab Q4H PRN PO PAIN LEVEL 7 -10; Start 02/01/17 at 20:30 Hydromorphone HCl (Dilaudid) 0.5 mg Q2 PRN IV PAIN; Start 02/01/17 at 20:30 Hydromorphone HCl (Dilaudid) 1 mg Q2 PRN IV PAIN Last administered on 11:57; Admin Dose 1 MG; Start 02/01/17 at 20:30 Docusate Sodium (Colace) 100 mg BID PRN PO CONSTIPATION; Start 02/01/17 at 20: 30 Bisacodyl (Dulcolax Supp) 10 mg BID PRN [place] CONSTIPATION; Start 02/01/17 at 20: 30 Sodium Biphosphate/ Sodium Phosphate 133 ml 133 ml BID PRN [place] CONSTIPATION; Start 02/01/17 at 20:30 Metronidazole 100 ml @ 100 mls/hr Q8 IVPB Last administered on 02/09/17 14:50 ; Admin Dose 100 MLS/HR; Start 02/04/17 at 15:00 Vancomycin HCl 250 ml @ 125 mls/hr Q12H IVPB Last administered on 02/09/17 07 :12; Admin Dose 125 MLS/HR; Start 02/05/17 at 06:00 Meropenem (Merrem 500 Mg/ 100 ml (Pmx)) 100 ml @ 200 mls/hr Q8 IVPB Last administered on 02/09/17 13:53; Admin Dose 200 MLS/HR; Start 02/05/17 at 22:00 Acetaminophen (Tylenol Liquid) 650 mg Q4H PRN GTB PAIN AND OR ELEVATED TEMP Last administered on 02/06/17 05:06; Admin Dose 650 MG; Start 02/05/17 at 18:30 Salmeterol Xinafoate/ Fluticasone (Advair 250/50 Diskus) 1 inh BID INH Last administered on 02/09/17 09:35; Admin Dose 1 INH; Start 02/07/17 at 11:00 Methylprednisolone Sodium Succinate (Solu-Medrol) 40 mg Q12 IV Last administered on 02/09/17 09:35; Admin Dose 40 MG; Start 02/07/17 at 12:30 IV Flush (NS 10 ml) 10 ml PRN PRN IV IV PROTOCOL; Start 02/07/17 at 14:30 Diphenhydramine HCl 25 mg 25 mg Q6H PRN IV itching ; Start 02/07/17 at 20:00 Ondansetron HCl 8 mg/Dextrose 54 ml @ 108 mls/hr Q6H IV Last administered on 13:27; Admin Dose 108 MLS/HR; Start 02/09/17 at 01:30; Stop 02/10/17 at 01:30 Ondansetron HCl/ Sodium Chloride (Zofran Inj/NS) 54 ml @ 216 mls/hr Q6H PRN IV NAUSEA AND/OR VOMITING; Start 02/09/17 at 11:30 DARISUZ QUINTERO LEAD FORMER Feb 09, 2017 18:49
[2017-02-10] VITALS (12 sets, daily range): BP systolic 112–142; BP diastolic 69–89; PULSE 74–128; RESP 17–20
[2017-02-10] MEDS: ONDANSETRON INJ 8 MG in DEXTROSE 5% 50 ML IV SCH (02:14)
[2017-02-10] MEDS: PANTOPRAZOLE 40 MG INJ IV SCH (05:01)
[2017-02-10] MEDS: METOCLOPRAMIDE 10 MG INJ IV SCH ×3 (05:01→15:30)
[2017-02-10] MEDS: metroNIDAZOLE 500 MG/NS (PMX) 100 ML IVPB SCH ×3 (05:01→22:35)
[2017-02-10] MEDS: FUROSEMIDE 20 MG INJ IV SCH ×2 (05:02→20:14)
[2017-02-10] MEDS: MEROPENEM 500 MG/100 ML (PMX) 100 ML IVPB SCH ×3 (05:30→23:03)
[2017-02-10] MEDS: VANCOMYCIN 1 GM in NS 250 ML IVPB SCH ×2 (06:14→20:15)
[2017-02-10 06:55] LABS: INR 1.06; PROTIME 13.8 Sec (12.2-14.2); PT RATIO 1.1
[2017-02-10 06:56] LABS: PARTIAL THROMBOPLASTIN TIME 26.3 Sec (25.0-35.0)
[2017-02-10 07:07] LABS: ALBUMIN 2.2 g/dl (3.3-4.9); ALBUMIN/GLOBULIN RATIO 0.73; BILIRUBIN,INDIRECT 0.3 mg/dl (0-1.1); BILIRUBIN,TOTAL 0.3 mg/dl (0.2-1.3); CALCIUM 7.6 mg/dl (8.4-10.2); CREATININE 0.75 mg/dl (0.61-1.24); PHOSPHORUS 3.7 mg/dl (2.5-4.9); POTASSIUM 3.5 mmol/L (3.5-5.1); TOTAL PROTEIN 5.2 g/dl (6.1-8.1)
[2017-02-10 08:39] LABS: ADD SCAN DIFF NO
[2017-02-10 08:49] LABS: ABNORMAL IP MESSAGE 1; BASOPHILS % 0.1 % (0.0-2.0); HEMATOCRIT 27.8 % (42.0-52.0); HEMOGLOBIN 8.9 g/dl (14.0-18.0); LYMPHOCYTES # 0.8 10^3/ul (0.8-2.9); LYMPHOCYTES % 4.9 % (15.0-51.0); MEAN CORPUSCULAR HEMOGLOBIN 28.7 pg (29.0-33.0); MEAN CORPUSCULAR VOLUME 89.7 fl (82.0-101.0); MEAN PLATELET VOLUME 13.7 fl (7.4-10.4); MONOCYTE # 0.7 10^3/ul (0.3-0.9); MONOCYTES % 4.3 % (0.0-11.0); NEUTROPHIL # 14.1 10^3/ul (1.6-7.5); NEUTROPHILS % 89.7 % (39.0-77.0); PLATELET COUNT 328 10^3/UL (140-415); RED CELL DISTRIBUTION WIDTH 14.8 % (11.5-14.5); WHITE BLOOD COUNT 15.7 10^3/ul (4.8-10.8)
--- NOTE | 2017-02-10 08:50 | RADRPT ---
PROCEDURE: XR Chest. CLINICAL INDICATION: chf TECHNIQUE: Single frontal view of the chest was obtained. COMPARISON: Chest x-ray from 02/08/2017 FINDINGS: There has been interval removal of the left-sided PICC line seen previously. Heart size is within normal limits. Foci of discoid atelectasis seen previously in the right mid lung are less prominent. There is a stable retrocardiac opacity due to atelectasis, infiltrate, and / or effusion. IMPRESSION: Improved aeration with decreased congestive changes and decreased prominence of opacities seen previ ously in the right mid lung. Interval removal of the left-sided PICC line seen previously. Stable retrocardiac opacity due to atelectasis, infiltrate, and / or effusion. RPTAT: EE Physician Carlee Date Time Electronically viewed and signed by Physician Carlee on 02/10/2017 08:49 /
[2017-02-10 09:07] LABS: ALBUMIN 2.2 g/dl (3.3-4.9); CALCIUM 7.8 mg/dl (8.4-10.2); CREATININE 0.74 mg/dl (0.61-1.24); PHOSPHORUS 3.7 mg/dl (2.5-4.9); POTASSIUM 3.5 mmol/L (3.5-5.1)
[2017-02-10] MEDS: METHYLPREDNISOLONE 40 MG INJ IV SCH (10:04)
[2017-02-10] MEDS: SALMETEROL/FLUTICASONE 250/50 INHA INH SCH ×2 (10:05→20:22)
--- NOTE | 2017-02-10 10:57 | PN ---
Date/Time of Note Date/Time of Note DATE: 02/10/17 TIME: 10:53 Assessment/Plan Lines/Catheters IV Catheter Type (from Nrs): Peripheral IV Zeng in Place (from Nrs): Yes Assessment/Plan Assessment/Plan [facility] Progress Note Date of Service: 02/10/17 Today's Impression & Plan: Overall stable but somewhat deteriorated with continuing rise in WBC as well as new onset confusion, all concerning for uncontrolled infection. At risk for intra-abdominal abscess given clinical picture. I took out magdalena from his wound since the wound appeared to have slightly purulent discharge. C-diff needs to be evaluated. Will also need further abdominal imaging for evaluation of abscess. High risk for complication given perforated colon in the setting of uncontrolled Crohn's. Recovery will take extra time with likely need for rehab. D/w team. With above assessment, I've recommended the following for today: 1. Check C-diff 2. Labs in am 3. May have to stay on liquid diet for now 4. Abd/pelvic CT with IV and oral contrast 5. Cont gentle diuresis to BMP < 200 6. Social work and case management to please start working on possible rehab vs. home health nurse set up 7. Increase activity 8. Increase ICS 9. Cont broad spec antimicrobials 10. Low threshold for repeat cultures 11. Low threshold for transfer back to ICU if deteriorates Thank you again for your great care of this very pleasant patient and wonderful family. If there are any questions, please feel free to call me at [phone]. TOTAL VISIT TIME: 20 minutes of which more than half was spent in [id number] discussion with the patient, possibly including family, as well as coordination of care between multiple physicians and providers. Disclaimer: Inadvertent spelling or grammatical errors are likely due to EHR/ dictation software use and do not reflect on the overall quality of patient care. Updated Clinical Summary: a very pleasant 46-year-old gentleman with history of Crohn's disease as well as prior surgery for anal fistula approximately 5 years ago, and a torn meniscus repair on the left knee, presenting with abdominal pain associated with a few weeks' duration of diarrhea. S/p an otherwise uncomplicated diagnostic laparoscopy was converted first to hand assist and then to open exploration when perforated sigmoid colon was found and it was resected with a Deena type procedure and end colostomy as well as core needle liver biopsy, segment 5, due to presence of fatty liver disease, lysis of adhesions, and abdominal lavage on 02/01/17. Failed to wean off the vent through 02/06/17. PE was evaluated 02/07/[address] angio and no evidence found. CT abd/pelvis also did not show actionable findings (no abscess; bowel thickening somewhat expected). Extubated 02/07/17. COMORBIDITIES: 1. Crohn disease with perforation of sigmoid colon and sepsis. S/p an otherwise uncomplicated diagnostic laparoscopy was converted first to hand assist and then to open exploration when perforated sigmoid colon was found and it was resected with a Deena type procedure and end colostomy as well as core needle liver biopsy, segment 5, due to presence of fatty liver disease, lysis of adhesions, and abdominal lavage on 02/01/17. 2. Repair of a fistula approximately 5 years ago. 3. Torn meniscus on the left knee status post repair. Subjective: No major events or complaints overnight; confusion reported by nursing staff; no major pulmonary complaints; tolerating liquids, but had emesis; no abd pain and under control with medications; no n/v/d currently; no sob or cp; + flatus; + BM; minimal activity Objective: Vitals: See below Exam: GENERAL: On exam, the patient was laying in bed and appeared to be comfortable and in no acute distress. ABDOMEN: Soft, nontender and nondistended. Incision dressings are clean, dry and intact without any evidence of obvious underlying erythema, edema, discharge , or hernia. Surgery drain ss and d/c'd at bedside without issues. Ostomy pink and viable; some air and stool in the bag. There are no peritoneal signs or guarding. SKIN: Skin appears to be pink and feels warm to touch. NEUROLOGIC: Patient is awake, alert but not oriented to place, and follows commands appropriately. Exam/Review of Systems Vital Signs Vitals Vital Signs Date Time Temp Pulse Resp B/P Pulse Ox O2 Delivery O2 Flow Rate FiO2 02/10/17 08:32 98 02/10/17 07:22 98.3 18 123/82 92 02/10/17 01:31 2.0 02/09/17 21:00 Nasal Cannula 02/07/17 12:00 40 Intake and Output 02/09/17 02/09/17 02/10/17 15:00 23:00 07:00 Intake Total 794 ml 580 ml 300 ml Output Total 910 ml 800 ml Balance 794 ml -330 ml -500 ml Results Result Diagram: 02/10/1759902/10/17599 TI HILTON M.D. Feb 10, 2017 10:57
--- NOTE | 2017-02-10 10:59 | PN ---
Date/Time of Note Date/Time of Note DATE: 02/10/17 TIME: 10:55 Assessment/Plan VTE Prophylaxis VTE Prophylaxis Intervention: SCD's Lines/Catheters IV [facility] Type (from [facility]): Peripheral IV Urinary Cath still in place: Yes Reason Cath still needed: urinary retention Assessment/Plan Chief Complaint/Hosp Course Assessment/Plan: 46M with: 1. Perforated sigmoid colon 2/2 Severe Crohn's colitis - S/p Urgent Open Cronin's procedure with end colostomy, liver biopsy and abdominal lavage POD # 9 - f/u surgery rec's, f/u ARU eval as well 2. Acute Resp failure / ?ARDS, Vent dependent - Continue vent mgt / abx 3. Chronic Crohn's disease with acute colitis and diarrhea: improved - Cultures growing ecoli / proteus / enterococcus - continue current abx 4. Persistent hypocalcemia and hypokalemia - replete as needed 5. Thrombocytopenia: ?HIT - plt nL now, monitor 6. SIRS with lactic acidosis 2/2 severe colitis - abx, f/u surgery and ID rec' s 7. Systemic shock likely hypovolemic from third spacing with hypoalbuminemia : improved, now off pressors 8. 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 Probable underlying COPD and Cirrhosis based on hx which explains hypoalbuminemia - monitor 10. Anemia - transfuse per surgery rec's. Problems: Subjective 24 Hr Interval Summary Free Text/Dictation Pt had some hallucinations this AM, still awaiting ARU eval. Exam/Review of Systems Vital Signs Vitals Vital Signs Date Time Temp Pulse Resp B/P Pulse Ox O2 Delivery O2 Flow Rate FiO2 02/10/17 08:32 98 02/10/17 07:22 98.3 18 123/82 92 02/10/17 01:31 2.0 02/09/17 21:00 Nasal Cannula 02/07/17 12:00 40 Intake and Output 02/09/17 02/09/17 02/10/17 15:00 23:00 07:00 Intake Total 794 ml 580 ml 300 ml Output Total 910 ml 800 ml Balance 794 ml -330 ml -500 ml Exam Constitutional: sleeping presently, NAD Head: atraumatic, normocephalic Eyes: PERRL Respiratory: slightly diminished breath sounds Cardiovascular: tachycardic with regular rhythm Gastrointestinal: Soft, Right sided colostomy with brownish/greenish stool. surgical site covered Extremities: normal pulses, generalized edema on abd as well Results Result Diagram: 02/10/17 0600 02/10/17 0600 Results 24 hrs Laboratory Tests Test 02/10/17 06:00 White Blood Count 15.7 H Red Blood Count 3.10 L Hemoglobin 8.9 L Hematocrit 27.8 L Mean Corpuscular Volume 89.7 Mean Corpuscular Hemoglobin 28.7 L Mean Corpuscular Hemoglobin Concent 32.0 Red Cell Distribution Width 14.8 H Platelet Count 328 # Mean Platelet Volume 13.7 H Neutrophils % 89.7 H Lymphocytes % 4.9 L Monocytes % 4.3 Eosinophils % 0.0 Basophils % 0.1 Nucleated Red Blood Cells % 0.0 Neutrophils # 14.1 H Lymphocytes # 0.8 Monocytes # 0.7 Eosinophils # 0.0 Basophils # 0.0 Nucleated Red Blood Cells # 0.0 Prothrombin Time 13.8 Prothrombin Time Ratio 1.1 INR International Normalized Ratio 1.06 Activated Partial Thromboplast Time 26.3 Sodium Level 140 Potassium Level 3.5 Chloride Level 110 Carbon Dioxide Level 25 Anion Gap 9 Blood Urea Nitrogen 30 H Creatinine 0.74 Glucose Level 94 Calcium Level 7.8 L Phosphorus Level 3.7 Magnesium Level 2.0 Total Bilirubin 0.3 Direct Bilirubin 0.00 Indirect Bilirubin 0.3 Aspartate Amino Transf (AST/SGOT) 39 Alanine Aminotransferase (ALT/SGPT) 27 Alkaline Phosphatase 161 H B-Type Natriuretic Peptide 2370 H Total Protein 5.2 L Albumin 2.2 L Globulin 3.00 Albumin/Globulin Ratio 0.73 Medications Medications Current Medications Metoclopramide HCl (Reglan) 10 mg Q6H IV Last administered on 02/10/17 10:03; Admin Dose 10 MG; Start 02/01/17 at 03:30 Hydromorphone HCl (Dilaudid) 1 mg Q4H PRN IV pain Last administered on 17:29; Admin Dose 1 MG; Start 02/01/17 at 03:30 Pantoprazole (Protonix Iv) 40 mg DAILY@06 IV Last administered on 02/10/17 05: 01; Admin Dose 40 MG; Start 02/01/17 at 06:00 Acetaminophen/ Hydrocodone Bitart ([place] (5/325)) 1 tab Q4H PRN PO PAIN LEVEL 4 -7 Last administered on 02/09/17 18:48; Admin Dose 1 TAB; Start 02/01/17 at 20: 30 Acetaminophen/ Hydrocodone Bitart ([place] (5/325)) 2 tab Q4H PRN PO PAIN LEVEL 7 -10; Start 02/01/17 at 20:30 Hydromorphone HCl (Dilaudid) 0.5 mg Q2 PRN IV PAIN; Start 02/01/17 at 20:30 Hydromorphone HCl (Dilaudid) 1 mg Q2 PRN IV PAIN Last administered on 11:57; Admin Dose 1 MG; Start 02/01/17 at 20:30 Docusate Sodium (Colace) 100 mg BID PRN PO CONSTIPATION; Start 02/01/17 at 20: 30 Bisacodyl (Dulcolax Supp) 10 mg BID PRN [place] CONSTIPATION; Start 02/01/17 at 20: 30 Sodium Biphosphate/ Sodium Phosphate 133 ml 133 ml BID PRN [place] CONSTIPATION; Start 02/01/17 at 20:30 Metronidazole 100 ml @ 100 mls/hr Q8 IVPB Last administered on 02/10/17 05:01 ; Admin Dose 100 MLS/HR; Start 02/04/17 at 15:00 Vancomycin HCl 250 ml @ 125 mls/hr Q12H IVPB Last administered on 02/10/17 06 :14; Admin Dose 125 MLS/HR; Start 02/05/17 at 06:00 Meropenem (Merrem 500 Mg/ 100 ml (Pmx)) 100 ml @ 200 mls/hr Q8 IVPB Last administered on 02/10/17 05:30; Admin Dose 200 MLS/HR; Start 02/05/17 at 22:00 Acetaminophen (Tylenol Liquid) 650 mg Q4H PRN GTB PAIN AND OR ELEVATED TEMP Last administered on 02/06/17 05:06; Admin Dose 650 MG; Start 02/05/17 at 18:30 Salmeterol Xinafoate/ Fluticasone (Advair 250/50 Diskus) 1 inh BID INH Last administered on 02/10/17 10:05; Admin Dose 1 INH; Start 02/07/17 at 11:00 Methylprednisolone Sodium Succinate (Solu-Medrol) 40 mg Q12 IV Last administered on 02/10/17t 10:04; Admin Dose 40 MG; Start 02/07/17 at 12:30 IV Flush (NS 10 ml) 10 ml PRN PRN IV IV PROTOCOL; Start 02/07/17 at 14:30 Diphenhydramine HCl 25 mg 25 mg Q6H PRN IV itching ; Start 02/07/17 at 20:00 Ondansetron HCl/ Sodium Chloride (Zofran Inj/NS) 54 ml @ 216 mls/hr Q6H PRN IV NAUSEA AND/OR VOMITING; Start 02/09/17 at 11:30 SUSAN SANCHEZ Feb 10, 2017 10:59
[2017-02-10] MEDS ORDERED: IOHEXOL 300MG/ML 30 ML BTL ONE (11:58)
[2017-02-10] MEDS ORDERED: SOD CHLORIDE 0.9% 1,000 ML IV ONE (12:30)
--- NOTE | 2017-02-10 13:10 | CONS ---
Date/Time of Note Date/Time of Note DATE: 02/10/17 TIME: 13:08 Assessment/Plan Assessment/Plan Additional Assessment/Plan Perforated colon status post surgery Severe sepsis Respiratory failure-extubated Low normal ejection fraction 50% Volume overload Crohn's disease Thrombocytopenia, improving Anemia -Peripheral edema and lung examination improved as well as chest x-ray, patient with frequent episodes of sinus tachycardia, we decrease Lasix to daily, supplement potassium to maintain above 4.0 and magnesium above 2.0. Consultation Date/Type/Reason Admit Date/Time Feb 01, 2017 at 03:10 Initial Consult Date 02/02/17 Type of Consultation: cv Referring Provider: VINCE PADGETT 24 HR Interval Summary Free Text/Dictation Denies chest pain, shortness of breath, palpitations Exam/Review of Systems Vital Signs Vitals Vital Signs Date Time Temp Pulse Resp B/P Pulse Ox O2 Delivery O2 Flow Rate FiO2 02/10/17 12:15 128 02/10/17 11:34 98.3 18 123/82 96 02/10/17 01:31 2.0 02/09/17 21:00 Nasal Cannula 02/07/17 12:00 40 Intake and Output 02/09/17 02/09/17 02/10/17 15:00 23:00 07:00 Intake Total 794 ml 580 ml 300 ml Output Total 910 ml 800 ml Balance 794 ml -330 ml -500 ml Exam No apparent distress, eating lunch Constitutional: alert, oriented Head: normocephalic Respiratory: other (Coarse breath sounds bilaterally, no wheezing) Cardiovascular: other, regular rate and rhythm Gastrointestinal: bowel sounds, other (Discomfort with palpation), soft Extremities: edema Results Result Diagram: 02/10/17 0600 02/10/17 0600 Results 24 hrs Laboratory Tests Test 02/10/17 06:00 White Blood Count 15.7 H Red Blood Count 3.10 L Hemoglobin 8.9 L Hematocrit 27.8 L Mean Corpuscular Volume 89.7 Mean Corpuscular Hemoglobin 28.7 L Mean Corpuscular Hemoglobin Concent 32.0 Red Cell Distribution Width 14.8 H Platelet Count 328 # Mean Platelet Volume 13.7 H Neutrophils % 89.7 H Lymphocytes % 4.9 L Monocytes % 4.3 Eosinophils % 0.0 Basophils % 0.1 Nucleated Red Blood Cells % 0.0 Neutrophils # 14.1 H Lymphocytes # 0.8 Monocytes # 0.7 Eosinophils # 0.0 Basophils # 0.0 Nucleated Red Blood Cells # 0.0 Prothrombin Time 13.8 Prothrombin Time Ratio 1.1 INR International Normalized Ratio 1.06 Activated Partial Thromboplast Time 26.3 Sodium Level 140 Potassium Level 3.5 Chloride Level 110 Carbon Dioxide Level 25 Anion Gap 9 Blood Urea Nitrogen 30 H Creatinine 0.74 Glucose Level 94 Calcium Level 7.8 L Phosphorus Level 3.7 Magnesium Level 2.0 Total Bilirubin 0.3 Direct Bilirubin 0.00 Indirect Bilirubin 0.3 Aspartate Amino Transf (AST/SGOT) 39 Alanine Aminotransferase (ALT/SGPT) 27 Alkaline Phosphatase 161 H B-Type Natriuretic Peptide 2370 H Total Protein 5.2 L Albumin 2.2 L Globulin 3.00 Albumin/Globulin Ratio 0.73 Medications Medications Current Medications Metoclopramide HCl (Reglan) 10 mg Q6H IV Last administered on 02/10/17 10:03; Admin Dose 10 MG; Start 02/01/17 at 03:30 Hydromorphone HCl (Dilaudid) 1 mg Q4H PRN IV pain Last administered on 17:29; Admin Dose 1 MG; Start 02/01/17 at 03:30 Pantoprazole (Protonix Iv) 40 mg DAILY@06 IV Last administered on 02/10/17 05: 01; Admin Dose 40 MG; Start 02/01/17 at 06:00 Acetaminophen/ Hydrocodone Bitart ([place] (5/325)) 1 tab Q4H PRN PO PAIN LEVEL 4 -7 Last administered on 02/09/17 18:48; Admin Dose 1 TAB; Start 02/01/17 at 20: 30 Acetaminophen/ Hydrocodone Bitart ([place] (5/325)) 2 tab Q4H PRN PO PAIN LEVEL 7 -10; Start 02/01/17 at 20:30 Hydromorphone HCl (Dilaudid) 0.5 mg Q2 PRN IV PAIN; Start 02/01/17 at 20:30 Hydromorphone HCl (Dilaudid) 1 mg Q2 PRN IV PAIN Last administered on 11:57; Admin Dose 1 MG; Start 02/01/17 at 20:30 Docusate Sodium (Colace) 100 mg BID PRN PO CONSTIPATION; Start 02/01/17 at 20: 30 Bisacodyl (Dulcolax Supp) 10 mg BID PRN [place] CONSTIPATION; Start 02/01/17 at 20: 30 Sodium Biphosphate/ Sodium Phosphate 133 ml 133 ml BID PRN [place] CONSTIPATION; Start 02/01/17 at 20:30 Metronidazole 100 ml @ 100 mls/hr Q8 IVPB Last administered on 02/10/17 05:01 ; Admin Dose 100 MLS/HR; Start 02/04/17 at 15:00 Vancomycin HCl 250 ml @ 125 mls/hr Q12H IVPB Last administered on 02/10/17 06 :14; Admin Dose 125 MLS/HR; Start 02/05/17 at 06:00 Meropenem (Merrem 500 Mg/ 100 ml (Pmx)) 100 ml @ 200 mls/hr Q8 IVPB Last administered on 02/10/17 05:30; Admin Dose 200 MLS/HR; Start 02/05/17 at 22:00 Acetaminophen (Tylenol Liquid) 650 mg Q4H PRN GTB PAIN AND OR ELEVATED TEMP Last administered on 02/06/17 05:06; Admin Dose 650 MG; Start 02/05/17 at 18:30 Salmeterol Xinafoate/ Fluticasone (Advair 250/50 Diskus) 1 inh BID INH Last administered on 02/10/17 10:05; Admin Dose 1 INH; Start 02/07/17 at 11:00 IV Flush (NS 10 ml) 10 ml PRN PRN IV IV PROTOCOL; Start 02/07/17 at 14:30 Diphenhydramine HCl 25 mg 25 mg Q6H PRN IV itching ; Start 02/07/17 at 20:00 Ondansetron HCl/ Sodium Chloride (Zofran Inj/NS) 54 ml @ 216 mls/hr Q6H PRN IV NAUSEA AND/OR VOMITING; Start 02/09/17 at 11:30 Prednisone (Prednisone) 40 mg DAILY PO ; Start 02/11/17 at 09:00 Miscellaneous Information VANCOMYCIN TROUGH AT 1700 ONCE ONCE XX ; Start 02/10/17 at 17:00; Stop 02/10/17 at 17:01 Sodium Chloride (NS) 1,000 ml @ 1,000 mls/hr Q1H ONCE IV Last administered on 4/26/17at 12:17; Admin Dose 1,000 MLS/HR; Start 02/10/17 at 12:30; Stop at 13:29 Keith Gandhi DO Feb 10, 2017 13:10
[2017-02-10] MEDS ORDERED: POTASSIUM CHLORIDE 20 MEQ POWDER FOR ORAL SOLN PO ONE (13:30)
--- NOTE | 2017-02-10 14:44 | CONS ---
Date/Time of Note Date/Time of Note DATE: 02/10/17 TIME: 14:42 Assessment/Plan Assessment/Plan Additional Assessment/Plan Chest x-ray was reviewed from today which is essentially clear. Assessment recommendations; 1. Patient admitted for sigmoid perforation status post laparoscopic resection with end-to-end anastomosis. 2. Status post respiratory failure. 3. Underlying COPD. 4. Leukocytosis with interval improvement. Patient off Solu-Medrol. Continue current treatment. We will sign off. Please reconsult if needed, thanks for the referral. Consultation Date/Type/Reason Admit Date/Time Feb 01, 2017 at 03:10 Initial Consult Date 02/02/17 Type of Consultation: Pulmonary Referring Provider: VINCE PADGETT 24 HR Interval Summary Free Text/Dictation Patient condition is stable. Denies any shortness of breath, abdominal pain, nausea vomiting. General exam; young male, awake alert currently in no distress. Exam/Review of Systems Vital Signs Vitals Vital Signs Date Time Temp Pulse Resp B/P Pulse Ox O2 Delivery O2 Flow Rate FiO2 02/10/17 12:15 128 02/10/17 11:34 98.3 18 123/82 96 02/10/17 08:30 Nasal Cannula 3.0 02/07/17 12:00 40 Intake and Output 02/09/17 02/09/17 02/10/17 15:00 23:00 07:00 Intake Total 794 ml 580 ml 300 ml Output Total 910 ml 800 ml Balance 794 ml -330 ml -500 ml Exam HEENT exam is; supple neck, no JVD. No lymphadenopathy. Midline trachea. No thyromegaly. Pharynx is clear. Chest examination; clear to auscultation. No added sound. S1-S2 audible, no murmurs. Regular rhythm. Abdomen exam is; soft, nontender. No organomegaly. There are dressings applied over recent laparoscopic incision sites. Extremity exam is; no peripheral edema. RIDING COACH examination; no focal deficit. Results Result Diagram: 02/10/17 0600 02/10/17 0600 Results 24 hrs Laboratory Tests Test 02/10/17 06:00 White Blood Count 15.7 H Red Blood Count 3.10 L Hemoglobin 8.9 L Hematocrit 27.8 L Mean Corpuscular Volume 89.7 Mean Corpuscular Hemoglobin 28.7 L Mean Corpuscular Hemoglobin Concent 32.0 Red Cell Distribution Width 14.8 H Platelet Count 328 # Mean Platelet Volume 13.7 H Neutrophils % 89.7 H Lymphocytes % 4.9 L Monocytes % 4.3 Eosinophils % 0.0 Basophils % 0.1 Nucleated Red Blood Cells % 0.0 Neutrophils # 14.1 H Lymphocytes # 0.8 Monocytes # 0.7 Eosinophils # 0.0 Basophils # 0.0 Nucleated Red Blood Cells # 0.0 Prothrombin Time 13.8 Prothrombin Time Ratio 1.1 INR International Normalized Ratio 1.06 Activated Partial Thromboplast Time 26.3 Sodium Level 140 Potassium Level 3.5 Chloride Level 110 Carbon Dioxide Level 25 Anion Gap 9 Blood Urea Nitrogen 30 H Creatinine 0.74 Glucose Level 94 Calcium Level 7.8 L Phosphorus Level 3.7 Magnesium Level 2.0 Total Bilirubin 0.3 Direct Bilirubin 0.00 Indirect Bilirubin 0.3 Aspartate Amino Transf (AST/SGOT) 39 Alanine Aminotransferase (ALT/SGPT) 27 Alkaline Phosphatase 161 H B-Type Natriuretic Peptide 2370 H Total Protein 5.2 L Albumin 2.2 L Globulin 3.00 Albumin/Globulin Ratio 0.73 Medications Medications Current Medications Metoclopramide HCl (Reglan) 10 mg Q6H IV Last administered on 02/10/17 10:03; Admin Dose 10 MG; Start 02/01/17 at 03:30 Hydromorphone HCl (Dilaudid) 1 mg Q4H PRN IV pain Last administered on 17:29; Admin Dose 1 MG; Start 02/01/17 at 03:30 Pantoprazole (Protonix Iv) 40 mg DAILY@06 IV Last administered on 02/10/17 05: 01; Admin Dose 40 MG; Start 02/01/17 at 06:00 Acetaminophen/ Hydrocodone Bitart ([place] (5/325)) 1 tab Q4H PRN PO PAIN LEVEL 4 -7 Last administered on 02/09/17 18:48; Admin Dose 1 TAB; Start 02/01/17 at 20: 30 Acetaminophen/ Hydrocodone Bitart ([place] (5/325)) 2 tab Q4H PRN PO PAIN LEVEL 7 -10; Start 02/01/17 at 20:30 Hydromorphone HCl (Dilaudid) 0.5 mg Q2 PRN IV PAIN; Start 02/01/17 at 20:30 Hydromorphone HCl (Dilaudid) 1 mg Q2 PRN IV PAIN Last administered on 11:57; Admin Dose 1 MG; Start 02/01/17 at 20:30 Docusate Sodium (Colace) 100 mg BID PRN PO CONSTIPATION; Start 02/01/17 at 20: 30 Bisacodyl (Dulcolax Supp) 10 mg BID PRN [place] CONSTIPATION; Start 02/01/17 at 20: 30 Sodium Biphosphate/ Sodium Phosphate 133 ml 133 ml BID PRN [place] CONSTIPATION; Start 02/01/17 at 20:30 Metronidazole 100 ml @ 100 mls/hr Q8 IVPB Last administered on 02/10/17 14:13 ; Admin Dose 100 MLS/HR; Start 02/04/17 at 15:00 Vancomycin HCl 250 ml @ 125 mls/hr Q12H IVPB Last administered on 02/10/17 06 :14; Admin Dose 125 MLS/HR; Start 02/05/17 at 06:00 Meropenem (Merrem 500 Mg/ 100 ml (Pmx)) 100 ml @ 200 mls/hr Q8 IVPB Last administered on 02/10/17 05:30; Admin Dose 200 MLS/HR; Start 02/05/17 at 22:00 Acetaminophen (Tylenol Liquid) 650 mg Q4H PRN GTB PAIN AND OR ELEVATED TEMP Last administered on 02/06/17 05:06; Admin Dose 650 MG; Start 02/05/17 at 18:30 Salmeterol Xinafoate/ Fluticasone (Advair 250/50 Diskus) 1 inh BID INH Last administered on 02/10/17 10:05; Admin Dose 1 INH; Start 02/07/17 at 11:00 IV Flush (NS 10 ml) 10 ml PRN PRN IV IV PROTOCOL; Start 02/07/17 at 14:30 Diphenhydramine HCl 25 mg 25 mg Q6H PRN IV itching ; Start 02/07/17 at 20:00 Ondansetron HCl/ Sodium Chloride (Zofran Inj/NS) 54 ml @ 216 mls/hr Q6H PRN IV NAUSEA AND/OR VOMITING; Start 02/09/17 at 11:30 Prednisone (Prednisone) 40 mg DAILY PO ; Start 02/11/17 at 09:00 Miscellaneous Information (*Rx Drug Level Order Reminder*) VANCOMYCIN TROUGH AT 1700 ONCE ONCE XX ; Start 02/10/17 at 17:00; Stop 02/10/17 at 17:01 Furosemide (Lasix) 20 mg DAILY IV ; Start 02/11/17 at 09:00 RICHAR ADRIAN Feb 10, 2017 14:44
[2017-02-10] MEDS ORDERED: SOD CHLORIDE 0.9% 0 ML ONE (16:13)
--- NOTE | 2017-02-10 16:13 | PN ---
Date/Time of Note Date/Time of Note DATE: 02/10/17 TIME: 16:09 Assessment/Plan VTE Prophylaxis VTE Prophylaxis Intervention: SCD's Lines/Catheters IV [facility] (from [facility] Peripheral IV Urinary Cath still in place: Yes Reason Cath still needed: urinary retention Assessment/Plan Assessment/Plan Perforated sigmoid colon * Laparoscopic exploration,open sigmoid colectomy with Deena end colostomy with liver biopsy segment V * h/o Crohn's disease * S/P extubation * Thrombocytopenia Plan: * continue present management * will await CT abdomen pelvis result * will reevaluate for crohns disease once recovered from surgery Subjective 24 Hr Interval Summary Free Text/Dictation * Course reviewed with RN * Patient seen and examined * patient appears confused * awaiting CT pritchett of abdomen Exam/Review of Systems Vital Signs Vitals Vital Signs Date Time Temp Pulse Resp B/P Pulse Ox O2 Delivery O2 Flow Rate FiO2 02/10/17 15:42 98.0 99 18 134/82 94 02/10/17 12:32 2.0 28 02/10/17 08:30 Nasal Cannula Intake and Output 02/09/17 02/09/17 02/10/17 15:00 23:00 07:00 Intake Total 794 ml 580 ml 300 ml Output Total 910 ml 800 ml Balance 794 ml -330 ml -500 ml Exam Constitutional: frail, other (confused) Eyes: nl sclera Neck: non-tender, supple Respiratory: diminished breath sounds, normal air movement Cardiovascular: nl pulses, regular rate and rhythm Gastrointestinal: bowel sounds, distended, other (colostomy), soft Genitourinary - Male: other (abbott catheter) Musculoskeletal: nl extremities to inspection Skin: nl turgor, rash or lesions Results Result Diagram: 02/10/17 0600 02/10/17 0600 Results 24 hrs Laboratory Tests Test 02/10/17 06:00 White Blood Count 15.7 H Red Blood Count 3.10 L Hemoglobin 8.9 L Hematocrit 27.8 L Mean Corpuscular Volume 89.7 Mean Corpuscular Hemoglobin 28.7 L Mean Corpuscular Hemoglobin Concent 32.0 Red Cell Distribution Width 14.8 H Platelet Count 328 # Mean Platelet Volume 13.7 H Neutrophils % 89.7 H Lymphocytes % 4.9 L Monocytes % 4.3 Eosinophils % 0.0 Basophils % 0.1 Nucleated Red Blood Cells % 0.0 Neutrophils # 14.1 H Lymphocytes # 0.8 Monocytes # 0.7 Eosinophils # 0.0 Basophils # 0.0 Nucleated Red Blood Cells # 0.0 Prothrombin Time 13.8 Prothrombin Time Ratio 1.1 INR International Normalized Ratio 1.06 Activated Partial Thromboplast Time 26.3 Sodium Level 140 Potassium Level 3.5 Chloride Level 110 Carbon Dioxide Level 25 Anion Gap 9 Blood Urea Nitrogen 30 H Creatinine 0.74 Glucose Level 94 Calcium Level 7.8 L Phosphorus Level 3.7 Magnesium Level 2.0 Total Bilirubin 0.3 Direct Bilirubin 0.00 Indirect Bilirubin 0.3 Aspartate Amino Transf (AST/SGOT) 39 Alanine Aminotransferase (ALT/SGPT) 27 Alkaline Phosphatase 161 H B-Type Natriuretic Peptide 2370 H Total Protein 5.2 L Albumin 2.2 L Globulin 3.00 Albumin/Globulin Ratio 0.73 Medications Medications Current Medications Metoclopramide HCl (Reglan) 10 mg Q6H IV Last administered on 02/10/17 10:03; Admin Dose 10 MG; Start 02/01/17 at 03:30 Hydromorphone HCl (Dilaudid) 1 mg Q4H PRN IV pain Last administered on 17:29; Admin Dose 1 MG; Start 02/01/17 at 03:30 Pantoprazole (Protonix Iv) 40 mg DAILY@06 IV Last administered on 02/10/17 05: 01; Admin Dose 40 MG; Start 02/01/17 at 06:00 Acetaminophen/ Hydrocodone Bitart ([place] (5/325)) 1 tab Q4H PRN PO PAIN LEVEL 4 -7 Last administered on 02/09/17 18:48; Admin Dose 1 TAB; Start 02/01/17 at 20: 30 Acetaminophen/ Hydrocodone Bitart ([place] (5/325)) 2 tab Q4H PRN PO PAIN LEVEL 7 -10; Start 02/01/17 at 20:30 Hydromorphone HCl (Dilaudid) 0.5 mg Q2 PRN IV PAIN; Start 02/01/17 at 20:30 Hydromorphone HCl (Dilaudid) 1 mg Q2 PRN IV PAIN Last administered on 11:57; Admin Dose 1 MG; Start 02/01/17 at 20:30 Docusate Sodium (Colace) 100 mg BID PRN PO CONSTIPATION; Start 02/01/17 at 20: 30 Bisacodyl (Dulcolax Supp) 10 mg BID PRN ID CONSTIPATION; Start 02/01/17 at 20: 30 Sodium Biphosphate/ Sodium Phosphate 133 ml 133 ml BID PRN ID CONSTIPATION; Start 02/01/17 at 20:30 Metronidazole 100 ml @ 100 mls/hr Q8 IVPB Last administered on 02/10/17 14:13 ; Admin Dose 100 MLS/HR; Start 02/04/17 at 15:00 Vancomycin HCl 250 ml @ 125 mls/hr Q12H IVPB Last administered on 02/10/17 06 :14; Admin Dose 125 MLS/HR; Start 02/05/17 at 06:00 Meropenem (Merrem 500 Mg/ 100 ml (Pmx)) 100 ml @ 200 mls/hr Q8 IVPB Last administered on 02/10/17 05:30; Admin Dose 200 MLS/HR; Start 02/05/17 at 22:00 Acetaminophen (Tylenol Liquid) 650 mg Q4H PRN GTB PAIN AND OR ELEVATED TEMP Last administered on 02/06/17 05:06; Admin Dose 650 MG; Start 02/05/17 at 18:30 Salmeterol Xinafoate/ Fluticasone (Advair 250/50 Diskus) 1 inh BID INH Last administered on 02/10/17 10:05; Admin Dose 1 INH; Start 02/07/17 at 11:00 IV Flush (NS 10 ml) 10 ml PRN PRN IV IV PROTOCOL; Start 02/07/17 at 14:30 Diphenhydramine HCl 25 mg 25 mg Q6H PRN IV itching ; Start 02/07/17 at 20:00 Ondansetron HCl/ Sodium Chloride (Zofran Inj/NS) 54 ml @ 216 mls/hr Q6H PRN IV NAUSEA AND/OR VOMITING; Start 02/09/17 at 11:30 Prednisone (Prednisone) 40 mg DAILY PO ; Start 02/11/17 at 09:00 Miscellaneous Information (*Rx Drug Level Order Reminder*) VANCOMYCIN TROUGH AT 1700 ONCE ONCE XX ; Start 02/10/17 at 17:00; Stop 02/10/17 at 17:01 Furosemide (Lasix) 20 mg DAILY IV ; Start 02/11/17 at 09:00 SANDRA DAVIS MD Feb 10, 2017 16:12
[2017-02-10] MEDS ORDERED: IOHEXOL 300MG/ML 150 ML BTL ONE (16:14)
[2017-02-10] MEDS ORDERED: LORAZEPAM 2 MG INJ IM PRN (19:00)
[2017-02-10] MEDS ORDERED: CHLORDIAZEPOXIDE 25 MG CAP PO SCH (19:00)
[2017-02-10] MEDS ORDERED: TRIMETHOBENZAMIDE 100 MG/ML VIAL IM PRN (19:30)
[2017-02-10] MEDS: CHLORDIAZEPOXIDE 25 MG CAP PO SCH (20:19)
[2017-02-10] MEDS: LORAZEPAM 2 MG INJ IV PRN (21:40)
[2017-02-10] MEDS: MULTIVITAMINS 10 ML, THIAMINE 100 MG, FOLIC ACID 1 MG in SOD CHLORIDE 0.9% 1,000 ML IVPB SCH (23:40)
[2017-02-11] VITALS (12 sets, daily range): BP systolic 118–139; BP diastolic 58–89; PULSE 119–141; RESP 18–36
[2017-02-11] MEDS: LORAZEPAM 2 MG INJ IV PRN ×2 (03:41→14:31)
[2017-02-11] MEDS ORDERED: SOD CHLORIDE 0.9% 250 ML IV ONE (05:00)
[2017-02-11] MEDS: PANTOPRAZOLE 40 MG INJ IV SCH (05:21)
[2017-02-11] MEDS: metroNIDAZOLE 500 MG/NS (PMX) 100 ML IVPB SCH ×3 (05:21→21:42)
[2017-02-11] MEDS: MEROPENEM 500 MG/100 ML (PMX) 100 ML IVPB SCH ×3 (05:57→21:44)
[2017-02-11] MEDS: VANCOMYCIN 1 GM in NS 250 ML IVPB SCH ×2 (06:33→18:50)
[2017-02-11] MEDS: LEVALBUTEROL (NEB) 0.63 MG/3 ML AMP HHN PRN ×2 (07:37→13:08)
[2017-02-11 08:08] LABS: ADD SCAN DIFF NO
[2017-02-11 08:16] LABS: ABNORMAL IP MESSAGE 1; HEMATOCRIT 26.1 % (42.0-52.0); HEMOGLOBIN 8.5 g/dl (14.0-18.0); MEAN CORPUSCULAR HEMOGLOBIN 28.8 pg (29.0-33.0); MEAN CORPUSCULAR HGB CONC 32.6 g/dl (32.0-37.0); MEAN CORPUSCULAR VOLUME 88.5 fl (82.0-101.0); MEAN PLATELET VOLUME 13.2 fl (7.4-10.4); PLATELET COUNT 360 10^3/UL (140-415); RED BLOOD COUNT 2.95 10^6/ul (4.70-6.10); RED CELL DISTRIBUTION WIDTH 14.3 % (11.5-14.5)
[2017-02-11 08:24] LABS: POTASSIUM 3.3 mmol/L (3.5-5.1)
[2017-02-11 08:26] LABS: CREATININE 0.67 mg/dl (0.61-1.24)
[2017-02-11 08:27] LABS: CALCIUM 7.4 mg/dl (8.4-10.2)
[2017-02-11 08:33] LABS: MAGNESIUM 1.6 mg/dl (1.7-2.5)
[2017-02-11] MEDS: SALMETEROL/FLUTICASONE 250/50 INHA INH SCH ×2 (09:00→20:43)
[2017-02-11] MEDS ORDERED: FUROSEMIDE 20 MG INJ IV SCH (09:00)
[2017-02-11] MEDS: MULTIVITAMINS 10 ML, THIAMINE 100 MG, FOLIC ACID 1 MG in SOD CHLORIDE 0.9% 1,000 ML IVPB SCH (09:16)
[2017-02-11] MEDS: predniSONE 20 MG TAB PO SCH (09:28)
[2017-02-11] MEDS: CHLORDIAZEPOXIDE 25 MG CAP PO SCH ×3 (09:29→20:43)
[2017-02-11] MEDS ORDERED: POTASSIUM CHLORIDE 250 ML IVPB ONE (09:30)
[2017-02-11] MEDS ORDERED: MAGNESIUM SULFATE 2 GM/50 ML 50 ML IVPB ONE (09:30)
[2017-02-11] MEDS ORDERED: BARIUM SULF 2% 450 ML BTL (BERRY SMOOTHIE) PO ONE (10:00)
[2017-02-11 10:44] LABS: AADO2 Arterial 134.3 mmHg (7.0-24.0); Allen Test ACCEPTAB; Arterial Base Excess -0.8 mmol/L (-3.0-3); Arterial COHb 0.3 % (0.0-3.0); Arterial Fraction of Oxyhgb 94.8 % (93.0-99.0); Arterial HCO3 22.2 mmol/L (22.0-26.0); Arterial MetHb 0.1 % (0.0-1.5); Arterial Total Hemglobin 9.6 g/dl (12.0-18.0); MODE NASAL CANNULA
--- NOTE | 2017-02-11 10:59 | PN ---
Date/Time of Note Date/Time of Note DATE: 02/11/17 TIME: 10:50 Assessment/Plan VTE Prophylaxis VTE Prophylaxis Intervention: SCD's Lines/Catheters IV Catheter Type (from Nrs): [place] Urinary Cath still in place: Yes Reason Cath still needed: urinary retention Assessment/Plan Chief Complaint/Hosp Course Assessment/Plan: 46M with: 1. Perforated sigmoid colon 2/2 Severe Crohn's colitis - S/p Urgent Open Cronin's procedure with end colostomy, liver biopsy and abdominal lavage POD # 10. Pt with some HR tachy today, more AMS. R/O worsening sepsis vs reglan withdrawal (he had received 38 doses of this prior to yesterday, when it was stopped) vs EtOH withdrawal (has prior Hx of EtOH use before admission, per family), or combo of these 3. - f/u surgery rec's, for CT scan's today C/A/P - apparently pt refused ABG - will taper reglan off over 2 days (want to avoid abrupt stoppage of this med) - continue ativan, librium low dose prn, bananna bag 2. Acute Resp failure / ?ARDS, Vent dependent - Continue vent mgt / abx - f/u CT scan's, PO steroids 3. Chronic Crohn's disease with acute colitis and diarrhea: improved - Cultures growing ecoli / proteus / enterococcus - continue current abx 4. Persistent hypocalcemia and hypokalemia - replete as needed 5. Thrombocytopenia: ?HIT - plt nL now, monitor 6. SIRS with lactic acidosis 2/2 severe colitis - abx, f/u surgery and ID rec' s 7. Systemic shock likely hypovolemic from third spacing with hypoalbuminemia : improved, now off pressors 8. Hx of heavy alcohol and tobacco use just until admission - certified alcohol counselor on cessation, see # 1 as well for possible withdrawal tx. 9. Probable underlying COPD and Cirrhosis based on hx which explains hypoalbuminemia - monitor 10. Anemia - transfuse per surgery rec's. Problems: Subjective 24 Hr Interval Summary Free Text/Dictation Pt more lethargic, and agitated this AM. Awaiting CT scan's (pending) Exam/Review of Systems Vital Signs Vitals Vital Signs Date Time Temp Pulse Resp B/P Pulse Ox O2 Delivery O2 Flow Rate FiO2 02/11/17 08:21 141 02/11/17 07:39 25 93 Nasal Cannula 4.0 02/11/17 07:23 99.8 119/83 02/10/17 17:30 28 Intake and Output 02/10/17 02/10/17 02/11/17 15:00 23:00 07:00 Intake Total 1000 ml 1000 ml 200 ml Output Total 1100 ml 1200 ml Balance 1000 ml -100 ml -1000 ml Exam Constitutional: opens eyes, but minimally responsive Head: atraumatic, normocephalic Eyes: PERRL Respiratory: slightly diminished breath sounds B/L Cardiovascular: tachycardic with regular rhythm Gastrointestinal: Soft, Right sided colostomy with brownish/greenish stool. surgical site covered Extremities: normal pulses, generalized edema on abd as well Results Result Diagram: 02/11/17 0736 02/11/17 0736 Results 24 hrs Laboratory Tests Test 02/10/17 17:20 02/11/17 07:36 02/11/17 09:07 Vancomycin Level Trough 14.0 Ethyl Alcohol Level < 10.0 White Blood Count 22.0 #H Red Blood Count 2.95 L Hemoglobin 8.5 L Hematocrit 26.1 L Mean Corpuscular Volume 88.5 Mean Corpuscular Hemoglobin 28.8 L Mean Corpuscular Hemoglobin Concent 32.6 Red Cell Distribution Width 14.3 Platelet Count 360 Mean Platelet Volume 13.2 H Neutrophils % Eosinophils % Neutrophils # Eosinophils # Sodium Level 141 Potassium Level 3.3 L Chloride Level 109 Carbon Dioxide Level 24 Anion Gap 11 Blood Urea Nitrogen 22 H Creatinine 0.67 Glucose Level 81 Calcium Level 7.4 L Phosphorus Level 4.0 Magnesium Level 1.6 L Blood Gas Specimen Source Blood arterial Arterial Blood Date Drawn 02/11/2017 10:35:52 AM Arterial Blood pH (Temp corrected) 7.475 H Arterial Blood pCO2 (Temp correct) 30.9 L Arterial Blood pO2 (Temp corrected) 86.5 Arterial Blood HCO3 22.2 Arterial Blood Base Excess -0.8 Arterial Blood Oxygen Saturation 95.2 Raffy Test ACCEPTAB Arterial Blood Gas Puncture Site Right Radial Arterial Blood Carboxyhemoglobin 0.3 Arterial Blood Methemoglobin 0.1 Blood Gas A-a O2 Differential 134.3 H Oxyhemoglobin Percent 94.8 Total Hemoglobin 9.6 L Blood Gas Temperature 37.0 Blood Gas Modality NASAL CANNULA FiO2 36.0 Blood Gas Notified Whom JLD Blood Gas Notified Time 02/11/2017 10:44:26 AM Medications Medications Current Medications Hydromorphone HCl (Dilaudid) 1 mg Q4H PRN IV pain Last administered on 17:29; Admin Dose 1 MG; Start 02/01/17 at 03:30 Pantoprazole (Protonix Iv) 40 mg DAILY@06 IV Last administered on 02/11/17 05: 21; Admin Dose 40 MG; Start 02/01/17 at 06:00 Acetaminophen/ Hydrocodone Bitart ([place] (5/325)) 1 tab Q4H PRN PO PAIN LEVEL 4 -7 Last administered on 02/09/17 18:48; Admin Dose 1 TAB; Start 02/01/17 at 20: 30 Acetaminophen/ Hydrocodone Bitart ([place] (5/325)) 2 tab Q4H PRN PO PAIN LEVEL 7 -10; Start 02/01/17 at 20:30 Hydromorphone HCl (Dilaudid) 0.5 mg Q2 PRN IV PAIN; Start 02/01/17 at 20:30 Hydromorphone HCl (Dilaudid) 1 mg Q2 PRN IV PAIN Last administered on 11:57; Admin Dose 1 MG; Start 02/01/17 at 20:30 Docusate Sodium (Colace) 100 mg BID PRN PO CONSTIPATION; Start 02/01/17 at 20: 30 Bisacodyl (Dulcolax Supp) 10 mg BID PRN NE CONSTIPATION; Start 02/01/17 at 20: 30 Sodium Biphosphate/ Sodium Phosphate 133 ml 133 ml BID PRN NE CONSTIPATION; Start 02/01/17 at 20:30 Metronidazole 100 ml @ 100 mls/hr Q8 IVPB Last administered on 02/11/17 05:21 ; Admin Dose 100 MLS/HR; Start 02/04/17 at 15:00 Vancomycin HCl 250 ml @ 125 mls/hr Q12H IVPB Last administered on 02/11/17 06 :33; Admin Dose 125 MLS/HR; Start 02/05/17 at 06:00 Meropenem (Merrem 500 Mg/ 100 ml (Pmx)) 100 ml @ 200 mls/hr Q8 IVPB Last administered on 02/11/17 05:57; Admin Dose 200 MLS/HR; Start 02/05/17 at 22:00 Acetaminophen (Tylenol Liquid) 650 mg Q4H PRN GTB PAIN AND OR ELEVATED TEMP Last administered on 02/06/17 05:06; Admin Dose 650 MG; Start 02/05/17 at 18:30 Salmeterol Xinafoate/ Fluticasone (Advair 250/50 Diskus) 1 inh BID INH Last administered on 02/10/17 20:22; Admin Dose 1 INH; Start 02/07/17 at 11:00 IV Flush (NS 10 ml) 10 ml PRN PRN IV IV PROTOCOL; Start 02/07/17 at 14:30 Diphenhydramine HCl 25 mg 25 mg Q6H PRN IV itching ; Start 02/07/17 at 20:00 Ondansetron HCl/ Sodium Chloride (Zofran Inj/NS) 54 ml @ 216 mls/hr Q6H PRN IV NAUSEA AND/OR VOMITING; Start 02/09/17 at 11:30 Prednisone (Prednisone) 40 mg DAILY PO Last administered on 02/11/17 09:28; Admin Dose 40 MG; Start 02/11/17 at 09:00 Furosemide (Lasix) 20 mg DAILY IV Last administered on 02/11/17 09:29; Admin Dose 20 MG; Start 02/11/17 at 09:00; Status Future Hold Lorazepam 1 mg 1 mg Q2 PRN IV AGITATION/ANXIETY Last administered on 02/11/17 03:41; Admin Dose 1 MG; Start 02/10/17 at 17:00 Multivitamins/ Thiamine HCl/ Folic Acid/Sodium Chloride (Mvi Adult/ Vitamin B1/ Folic Acid/NS) 1,011.2 ml @ 75 mls/hr DAILY IVPB Last administered on 09:16; Admin Dose 75 MLS/HR; Start 02/10/17 at 18:00 Lorazepam (Ativan) 1 mg Q1HWA PRN IM AGITATION/ANXIETY; Start 02/10/17 at 19:00 Chlordiazepoxide (Librium) 25 mg TID PO Last administered on 02/11/17 09:29; Admin Dose 25 MG; Start 02/10/17 at 21:00 Trimethobenzamide HCl 200 mg 200 mg Q6H PRN IM NAUSEA AND/OR VOMITING; Start at 19:30 Magnesium Sulfate 50 ml @ 25 mls/hr ONCE ONCE IVPB ; Start 02/11/17 at 09:30; Stop 02/11/17 at 11:29 Potassium Chloride (KCl 40 MEQ/250 ML NS) 250 ml @ 62.5 mls/hr ONCE ONCE IVPB ; Start 02/11/17 at 09:30; Stop 02/11/17 at 13:29 SUSAN SANCHEZ Feb 11, 2017 10:59
[2017-02-11] MEDS ORDERED: SOD CHLORIDE 0.9% 100 ML ONE (11:11)
[2017-02-11] MEDS ORDERED: IODIXANOL LOCM 100 ML BTL ONE (11:11)
[2017-02-11 11:48] LABS: LYMPHOCYTES # 0.9 10^3/ul (0.8-2.9); MONOCYTE # 0.4 10^3/ul (0.3-0.9); MYELOCYTES # 0.2
[2017-02-11] MEDS: METOCLOPRAMIDE 10 MG INJ IV SCH ×2 (11:58→20:36)
--- NOTE | 2017-02-11 13:26 | RADRPT ---
PROCEDURE: CT Chest with contrast. CLINICAL INDICATION: Shortness of breath. TECHNIQUE: CT scan of the chest with contrast was performed following the uncomplicated intravenou s administration of 100 cc of Visipaque 320. Coronal and sagittal reformatted images were obtained from the axial source images. Images were reviewed on a high-resolution PACS workstation. CTDIvol (m Gy): 13.98; Total Exam DLP (mGy-cm): 1217.65 One or more of the following dose reduction techniques were utilized: - Automated exposure control. - Adjustment of the mA and/or kV according to patient size. - Use of iterative reconstruction technique. COMPARISON: Chest x-ray 02/10/2017. CTA chest 02/07/2017. FINDINGS: Limited imaging of the lower neck is unremarkable. The heart is not enlarged. There is no pericardial effusion. There is no mediastinal, hilar or axi llary lymphadenopathy. The thoracic aorta is normal in caliber. The pulmonary arteries are not enl arged. Moderate large layering bilateral pleural effusions are present and increased. Passive atelectasis within the bilateral lower lobes is observed. Mild degenerative changes of the thoracic spine are present. Body wall soft tissues are unremarkable . IMPRESSION: Moderate large layering bilateral pleural effusions with passive atelectasis within the lung bases. RPTAT: HLST .Kandice Bonds MD, Date Time Electronically viewed and signed by .Kandice Bonds MD, on 02/11/2017 13:26 .T/
--- NOTE | 2017-02-11 13:51 | RADRPT ---
PROCEDURE: CT Abdomen and Pelvis with contrast. CLINICAL INDICATION: Elevated white blood cell count. History of perforated colon.. TECHNIQUE: Multiple contiguous axial CT images of the abdomen and pelvis were obtained following t he administration of 100 cc of Visipaque 320. Coronal and sagittal reconstructions were also perfor med. CTDIvol (mGy): 13.98; Total Exam DLP (mGy-cm): 1217.65. One or more of the following dose reduction techniques were utilized: - Automated exposure control. - Adjustment of the mA and/or kV according to patient size. - Use of iterative reconstruction technique. COMPARISON: Abdominal x-ray 02/09/2017. CT abdomen/pelvis 02/07/2017. FINDINGS: The liver and spleen are homogeneous in enhancement. The liver is diffusely low in attenuation amor tible with fatty infiltration. The hepatic and portal veins are patent. Cholelithiasis is present. The gallbladder is collapsed. Mild concentric gallbladder wall edema is observed. Mild josé miguel hepat ic fluid is present. Associated peritoneal enhancement is observed. The spleen, pancreas and adren al glands are unremarkable. The kidneys are symmetric in size and enhancement. There is no hydronephrosis or abnormal perinephr ic inflammation. There are no ureteral stones. The abdominal aorta is normal in caliber. There is no periaortic / retroperitoneal lymphadenopathy. The stomach is partially distended. A small amount of free fluid around the greater curvature is pr esent. Surgical changes compatible with sigmoid colon resection and end colostomy are again identifi ed. The visual rectal stump is collapsed. Mild fluid-filled distension of the small intestines is observed. Mild submucosal edema is also present. This is slightly improved from prior examination. Interloop ascites is present and grossly unchanged. Diffuse mesenteric edema and mesenteric hyper emia are observed. A small amount of fluid of the anterolateral left side of the abdomen is present and unchanged. Mild associated peritoneal enhancement is observed. A small amount of contrast is seen within the distal small intestines and throughout the colon. There is no extravasation of intr aluminal contrast. Abdominal surgical drain has been removed. The bladder is collapsed around a Zeng. Concentric bladder wall thickening is observed. The prost ate gland and seminal vesicles are unremarkable. Trace free pelvic fluid is present. There is no pe lvic sidewall or inguinal lymphadenopathy. Degenerative changes of the upper mid lumbar spine are present. Left femoral hardware is in place. Diffuse mesenteric edema is observed. A large wound of the lower ventral abdominal wall soft tissu es is present. IMPRESSION: Small volume ascites with mild associated peritoneal enhancement. Correlate with signs and symptoms of parotitis. A small accumulation of fluid is seen anterolaterally within the left side of the ab domen and is unchanged. Surgical changes compatible with sigmoidectomy and end colostomy. Mild fluid-filled distension of the small intestines with mild submucosal edema. RPTAT: HLST .Kandice Bonds MD, MD Date Time Electronically viewed and signed by .Kandice Bonds MD, on 02/11/2017 13:51 .T/
--- NOTE | 2017-02-11 14:17 | CONS ---
Date/Time of Note Date/Time of Note DATE: 02/11/17 TIME: 13:56 Assessment/Plan Assessment/Plan Chief Complaint/Hosp Course ID PROGRESS NOTE TOTAL ABX DAY #11 => Vanco IV, Merrem, Flagyl * S/P Zosyn 02/03 & 02/04 =>Zosyn was DC'd due to progressive thrombocytopenia -- PLTs improved * POD # 02/01/17 => s/p Laparoscopic exploration,open sigmoid colectomy with Deena end colostomy with liver biopsy segment V * 02/11/17 0736 02/11/17 0736 24H INTERVAL SUMMARY * Patient is a bit more restless today suspect delirium, appears weak, w/mild tachypnea, Tmax 99.8 + diaphoresis -- less engaging, less communicative -- still has drain. * WBC continues to rise 22,000 w/8% BANDEMIA , colostomy w/stool present * CT ABD 02/11/17: Small volume ascites with mild associated peritoneal enhancement. Correlate with signs and symptoms of parotitis [peritonitis?]. A small accumulation of fluid is seen anterolaterally within the left side of the abdomen and is unchanged. Surgical changes compatible with sigmoidectomy and end colostomy. Mild fluid-filled distension of the small intestines with mild submucosal edema. * CT CHEST 02/11/17: Moderate large layering bilateral pleural effusions with passive atelectasis within the lung bases. PHYSICAL EXAMINATION: GENERAL: VSS, restless, diaphoretic, less communicative today HEENT: Diaphoretic NECK: Supple, trach-> midline CHEST: Equal chest rise bilaterally,Mild tachypnea HEART: Pulse RRR ABDOMEN: STEVE present EXTREMITIES: Warm SKIN: Warm, dry ID ASSESSMENT: 46 yo M w/PMHx Crohn's disease admitted with: * POD # 02/01/17 => s/p Laparoscopic exploration,open sigmoid colectomy with Deena end colostomy with liver biopsy segment V 1. Sepsis, status post perforated viscus repair - SIRS continues w/ * WORSE TODAY: 22,000 w/8% BANDEMIA + TMax 99.8 today, (+)Diaphoresis, tachypnea , increased delirium => Bilateral effusions * MICRO: Abdominal fluid culture growing Proteus mirabilis, E. coli, enterococcus species and strep * CT ABD 02/11: Small volume ascites w/enhancement suggestive of peritonitis 2. Postoperative respiratory failure=> HCAP w/infiltrate developing on CXR 02/05 * CT Chest 02/11: Moderate large layering bilateral pleural effusions with passive atelectasis within the lung bases. 4. Anemia with persistent thrombocytopenia, possibly secondary to sepsis and antibiotics.=> IMPROVED * Zosyn was changed to Levaquin. * rule out heparin-induced thrombocytopenia versus other etiologies, 6. Status post acute renal failure. 7. LIVER DX: Fatty liver w/necroinflammatory activity, no fibrosis, small iron deposit on stain 9. Hx of heavy alcohol and tobacco use just until admission - ?ETOH Withdrawal SXS? 9. Probable underlying COPD and Cirrhosis based on hx which explains hypoalbuminemia - monitor (-)MRSA Nares INVASIVES: * STEVE, PICC 02/07 ABX ALLERGIES: KNDA CURRENT ABX: TOTAL ABX DAY #11 => Vanco IV, Merrem, Flagyl S/P Zosyn ID RECOMMENDATIONS: 1. WORSE TODAY: 22,000 w/8% BANDEMIA + TMax 99.8 today, (+)Diaphoresis, tachypnea, increased delirium => Bilateral effusions * CT Chest 02/11: Moderate large layering bilateral pleural effusions with passive atelectasis within the lung bases. * Suspect superimposed HCAP * Peritonitis persisting per CT ABD 2. Continue current ABX 3. Plan for increased activity and progression of diet => Patient not ready for this much activity 4. Further recs pulmonary & surgery appreciated / . . . Problems: Consultation Date/Type/Reason Admit Date/Time Feb 01, 2017 at 03:10 Initial Consult Date 02/02/17 Type of Consultation: ID Referring Provider: VINCE PADGETT Exam/Review of Systems Vital Signs Vitals Vital Signs Date Time Temp Pulse Resp B/P Pulse Ox O2 Delivery O2 Flow Rate FiO2 02/11/17 13:10 124 20 93 Nasal Cannula 4.0 02/11/17 11:44 98.0 122/66 02/10/17 17:30 28 Intake and Output 02/10/17 02/10/17 02/11/17 15:00 23:00 07:00 Intake Total 1000 ml 1000 ml 200 ml Output Total 1100 ml 1200 ml Balance 1000 ml -100 ml -1000 ml Results Result Diagram: 02/11/17 0736 02/11/17 0736 Results 24 hrs Laboratory Tests Test 02/10/17 17:20 02/11/17 07:36 02/11/17 09:07 02/11/17 10:28 Vancomycin Level Trough 14.0 Ethyl Alcohol Level < 10.0 White Blood Count 22.0 #H Red Blood Count 2.95 L Hemoglobin 8.5 L Hematocrit 26.1 L Mean Corpuscular Volume 88.5 Mean Corpuscular Hemoglobin 28.8 L Mean Corpuscular Hemoglobin Concent 32.6 Red Cell Distribution Width 14.3 Platelet Count 360 Mean Platelet Volume 13.2 H Neutrophils % 82.0 H Band Neutrophils % 8.0 H Lymphocytes % 4.0 L Reactive Lymphocytes % 2.0 Monocytes % 2.0 Eosinophils % Metamyelocytes % 1.0 H Myelocytes % 1.0 H Neutrophils # 18.0 H Lymphocytes # 0.9 Monocytes # 0.4 Eosinophils # Metamyelocytes # 0.2 Myelocytes # 0.2 Sodium Level 141 Potassium Level 3.3 L Chloride Level 109 Carbon Dioxide Level 24 Anion Gap 11 Blood Urea Nitrogen 22 H Creatinine 0.67 Glucose Level 81 Calcium Level 7.4 L Phosphorus Level 4.0 Magnesium Level 1.6 L Blood Gas Specimen Source Blood arterial Arterial Blood Date Drawn 02/11/2017 10:35:52 AM Arterial Blood pH (Temp corrected) 7.475 H Arterial Blood pCO2 (Temp correct) 30.9 L Arterial Blood pO2 (Temp corrected) 86.5 Arterial Blood HCO3 22.2 Arterial Blood Base Excess -0.8 Arterial Blood Oxygen Saturation 95.2 Raffy Test ACCEPTAB Arterial Blood Gas Puncture Site Right Radial Arterial Blood Carboxyhemoglobin 0.3 Arterial Blood Methemoglobin 0.1 Blood Gas A-a O2 Differential 134.3 H Oxyhemoglobin Percent 94.8 Total Hemoglobin 9.6 L Blood Gas Temperature 37.0 Blood Gas Modality NASAL CANNULA FiO2 36.0 Blood Gas Notified Whom JLD Blood Gas Notified Time 02/11/2017 10:44:26 AM Lactic Acid Level 0.9 Medications Medications Current Medications Hydromorphone HCl (Dilaudid) 1 mg Q4H PRN IV pain Last administered on 17:29; Admin Dose 1 MG; Start 02/01/17 at 03:30 Pantoprazole (Protonix Iv) 40 mg DAILY@06 IV Last administered on 02/11/17 05: 21; Admin Dose 40 MG; Start 02/01/17 at 06:00 Acetaminophen/ Hydrocodone Bitart ([place] (5/325)) 1 tab Q4H PRN PO PAIN LEVEL 4 -7 Last administered on 02/09/17 18:48; Admin Dose 1 TAB; Start 02/01/17 at 20: 30 Acetaminophen/ Hydrocodone Bitart ([place] (5/325)) 2 tab Q4H PRN PO PAIN LEVEL 7 -10; Start 02/01/17 at 20:30 Hydromorphone HCl (Dilaudid) 0.5 mg Q2 PRN IV PAIN; Start 02/01/17 at 20:30 Hydromorphone HCl (Dilaudid) 1 mg Q2 PRN IV PAIN Last administered on 11:57; Admin Dose 1 MG; Start 02/01/17 at 20:30 Docusate Sodium (Colace) 100 mg BID PRN PO CONSTIPATION; Start 02/01/17 at 20: 30 Bisacodyl (Dulcolax Supp) 10 mg BID PRN [place] CONSTIPATION; Start 02/01/17 at 20: 30 Sodium Biphosphate/ Sodium Phosphate 133 ml 133 ml BID PRN [place] CONSTIPATION; Start 02/01/17 at 20:30 Metronidazole 100 ml @ 100 mls/hr Q8 IVPB Last administered on 02/11/17 05:21 ; Admin Dose 100 MLS/HR; Start 02/04/17 at 15:00 Vancomycin HCl 250 ml @ 125 mls/hr Q12H IVPB Last administered on 02/11/17 06 :33; Admin Dose 125 MLS/HR; Start 02/05/17 at 06:00 Meropenem (Merrem 500 Mg/ 100 ml (Pmx)) 100 ml @ 200 mls/hr Q8 IVPB Last administered on 02/11/17 05:57; Admin Dose 200 MLS/HR; Start 02/05/17 at 22:00 Acetaminophen (Tylenol Liquid) 650 mg Q4H PRN GTB PAIN AND OR ELEVATED TEMP Last administered on 02/06/17 05:06; Admin Dose 650 MG; Start 02/05/17 at 18:30 Salmeterol Xinafoate/ Fluticasone (Advair 250/50 Diskus) 1 inh BID INH Last administered on 4/26/17at 20:22; Admin Dose 1 INH; Start 02/07/17 at 11:00 IV Flush (NS 10 ml) 10 ml PRN PRN IV IV PROTOCOL; Start 02/07/17 at 14:30 Diphenhydramine HCl 25 mg 25 mg Q6H PRN IV itching ; Start 02/07/17 at 20:00 Ondansetron HCl/ Sodium Chloride (Zofran Inj/NS) 54 ml @ 216 mls/hr Q6H PRN IV NAUSEA AND/OR VOMITING; Start 02/09/17 at 11:30 Prednisone (Prednisone) 40 mg DAILY PO Last administered on 02/11/17 09:28; Admin Dose 40 MG; Start 02/11/17 at 09:00 Furosemide (Lasix) 20 mg DAILY IV Last administered on 02/11/17 09:29; Admin Dose 20 MG; Start 02/11/17 at 09:00; Status Future Hold Lorazepam 1 mg 1 mg Q2 PRN IV AGITATION/ANXIETY Last administered on 02/11/17 03:41; Admin Dose 1 MG; Start 02/10/17 at 17:00 Multivitamins/ Thiamine HCl/ Folic Acid/Sodium Chloride (Mvi Adult/ Vitamin B1/ Folic Acid/NS) 1,011.2 ml @ 75 mls/hr DAILY IVPB Last administered on 09:16; Admin Dose 75 MLS/HR; Start 02/10/17 at 18:00 Lorazepam (Ativan) 1 mg Q1HWA PRN IM AGITATION/ANXIETY; Start 02/10/17 at 19:00 Chlordiazepoxide (Librium) 25 mg TID PO Last administered on 02/11/17 09:29; Admin Dose 25 MG; Start 02/10/17 at 21:00 Trimethobenzamide HCl (Tigan) 200 mg Q6H PRN IM NAUSEA AND/OR VOMITING; Start 02/10/17 at 19:30 Metoclopramide HCl (Reglan) 5 mg BID IV Last administered on 02/11/17 11:58; Admin Dose 5 MG; Start 02/11/17 at 11:00; Stop 02/12/17 at 23:55 DARIUSZ QUINTERO NP Feb 11, 2017 14:06
--- NOTE | 2017-02-11 14:35 | PN ---
Date/Time of Note Date/Time of Note DATE: 02/11/17 TIME: 14:30 Assessment/Plan VTE Prophylaxis VTE Prophylaxis Intervention: SCD's Lines/Catheters IV Catheter Type (from [facility]): Peripheral IV Urinary Cath still in place: Yes Reason Cath still needed: urinary retention Assessment/Plan Assessment/Plan Perforated sigmoid colon * Laparoscopic exploration,open sigmoid colectomy with Deena end colostomy with liver biopsy segment V * h/o Crohn's disease * Thrombocytopenia Plan: * continue present management * will reevaluate for Crohn disease once recovered from surgery Subjective 24 Hr Interval Summary Free Text/Dictation * Course reviewed with RN * patient seen and examined * still with confusion * CT abdomen/pelvis * Small volume ascites with mild associated peritoneal enhancement. Correlate with signs and symptoms of parotitis. A small accumulation of fluid is seen anterolaterally within the left side of the abdomen and is unchanged. Surgical changes compatible with sigmoidectomy and end colostomy. Mild fluid-filled distension of the small intestines with mild submucosal edema. Exam/Review of Systems Vital Signs Vitals Vital Signs Date Time Temp Pulse Resp B/P Pulse Ox O2 Delivery O2 Flow Rate FiO2 02/11/17 13:10 124 20 93 Nasal Cannula 4.0 02/11/17 11:44 98.0 122/66 02/10/17 17:30 28 Intake and Output 02/10/17 02/10/17 02/11/17 15:00 23:00 07:00 Intake Total 1000 ml 1000 ml 200 ml Output Total 1100 ml 1200 ml Balance 1000 ml -100 ml -1000 ml Exam Constitutional: frail Eyes: PERRL, nl sclera Neck: non-tender, supple Respiratory: crackles/rales, diminished breath sounds Cardiovascular: nl pulses, regular rate and rhythm Gastrointestinal: bowel sounds, distended, non-tender, other (colostomy ), soft Genitourinary - Male: other (abbott catheter) Musculoskeletal: nl extremities to inspection Extremities: normal pulses Skin: rash or lesions Results Result Diagram: 02/11/17 0736 02/11/17 0736 Results 24 hrs Laboratory Tests Test 02/10/17 17:20 02/11/17 07:36 02/11/17 09:07 02/11/17 10:28 Vancomycin Level Trough 14.0 Ethyl Alcohol Level < 10.0 White Blood Count 22.0 #H Red Blood Count 2.95 L Hemoglobin 8.5 L Hematocrit 26.1 L Mean Corpuscular Volume 88.5 Mean Corpuscular Hemoglobin 28.8 L Mean Corpuscular Hemoglobin Concent 32.6 Red Cell Distribution Width 14.3 Platelet Count 360 Mean Platelet Volume 13.2 H Neutrophils % 82.0 H Band Neutrophils % 8.0 H Lymphocytes % 4.0 L Reactive Lymphocytes % 2.0 Monocytes % 2.0 Eosinophils % Metamyelocytes % 1.0 H Myelocytes % 1.0 H Neutrophils # 18.0 H Lymphocytes # 0.9 Monocytes # 0.4 Eosinophils # Metamyelocytes # 0.2 Myelocytes # 0.2 Sodium Level 141 Potassium Level 3.3 L Chloride Level 109 Carbon Dioxide Level 24 Anion Gap 11 Blood Urea Nitrogen 22 H Creatinine 0.67 Glucose Level 81 Calcium Level 7.4 L Phosphorus Level 4.0 Magnesium Level 1.6 L Blood Gas Specimen Source Blood arterial Arterial Blood Date Drawn 02/11/2017 10:35:52 AM Arterial Blood pH (Temp corrected) 7.475 H Arterial Blood pCO2 (Temp correct) 30.9 L Arterial Blood pO2 (Temp corrected) 86.5 Arterial Blood HCO3 22.2 Arterial Blood Base Excess -0.8 Arterial Blood Oxygen Saturation 95.2 Raffy Test ACCEPTAB Arterial Blood Gas Puncture Site Right Radial Arterial Blood Carboxyhemoglobin 0.3 Arterial Blood Methemoglobin 0.1 Blood Gas A-a O2 Differential 134.3 H Oxyhemoglobin Percent 94.8 Total Hemoglobin 9.6 L Blood Gas Temperature 37.0 Blood Gas Modality NASAL CANNULA FiO2 36.0 Blood Gas Notified Whom JLD Blood Gas Notified Time 02/11/2017 10:44:26 AM Lactic Acid Level 0.9 Medications Medications Current Medications Hydromorphone HCl (Dilaudid) 1 mg Q4H PRN IV pain Last administered on 17:29; Admin Dose 1 MG; Start 02/01/17 at 03:30 Pantoprazole (Protonix Iv) 40 mg DAILY@06 IV Last administered on 02/11/17 05: 21; Admin Dose 40 MG; Start 02/01/17 at 06:00 Acetaminophen/ Hydrocodone Bitart ([place] (5/325)) 1 tab Q4H PRN PO PAIN LEVEL 4 -7 Last administered on 02/09/17 18:48; Admin Dose 1 TAB; Start 02/01/17 at 20: 30 Acetaminophen/ Hydrocodone Bitart ([place] (5/325)) 2 tab Q4H PRN PO PAIN LEVEL 7 -10; Start 02/01/17 at 20:30 Hydromorphone HCl (Dilaudid) 0.5 mg Q2 PRN IV PAIN; Start 02/01/17 at 20:30 Hydromorphone HCl (Dilaudid) 1 mg Q2 PRN IV PAIN Last administered on 11:57; Admin Dose 1 MG; Start 02/01/17 at 20:30 Docusate Sodium (Colace) 100 mg BID PRN PO CONSTIPATION; Start 02/01/17 at 20: 30 Bisacodyl (Dulcolax Supp) 10 mg BID PRN [place] CONSTIPATION; Start 02/01/17 at 20: 30 Sodium Biphosphate/ Sodium Phosphate 133 ml 133 ml BID PRN [place] CONSTIPATION; Start 02/01/17 at 20:30 Metronidazole 100 ml @ 100 mls/hr Q8 IVPB Last administered on 02/11/17 14:27 ; Admin Dose 100 MLS/HR; Start 02/04/17 at 15:00 Vancomycin HCl 250 ml @ 125 mls/hr Q12H IVPB Last administered on 02/11/17 06 :33; Admin Dose 125 MLS/HR; Start 02/05/17 at 06:00 Meropenem (Merrem 500 Mg/ 100 ml (Pmx)) 100 ml @ 200 mls/hr Q8 IVPB Last administered on 02/11/17 05:57; Admin Dose 200 MLS/HR; Start 02/05/17 at 22:00 Acetaminophen (Tylenol Liquid) 650 mg Q4H PRN GTB PAIN AND OR ELEVATED TEMP Last administered on 02/06/17 05:06; Admin Dose 650 MG; Start 02/05/17 at 18:30 Salmeterol Xinafoate/ Fluticasone (Advair 250/50 Diskus) 1 inh BID INH Last administered on 02/10/17 20:22; Admin Dose 1 INH; Start 02/07/17 at 11:00 IV Flush (NS 10 ml) 10 ml PRN PRN IV IV PROTOCOL; Start 02/07/17 at 14:30 Diphenhydramine HCl 25 mg 25 mg Q6H PRN IV itching ; Start 02/07/17 at 20:00 Ondansetron HCl/ Sodium Chloride (Zofran Inj/NS) 54 ml @ 216 mls/hr Q6H PRN IV NAUSEA AND/OR VOMITING; Start 02/09/17 at 11:30 Prednisone (Prednisone) 40 mg DAILY PO Last administered on 02/11/17 09:28; Admin Dose 40 MG; Start 02/11/17 at 09:00 Furosemide (Lasix) 20 mg DAILY IV Last administered on 02/11/17 09:29; Admin Dose 20 MG; Start 02/11/17 at 09:00; Status Future Hold Lorazepam 1 mg 1 mg Q2 PRN IV AGITATION/ANXIETY Last administered on 02/11/17 03:41; Admin Dose 1 MG; Start 02/10/17 at 17:00 Multivitamins/ Thiamine HCl/ Folic Acid/Sodium Chloride (Mvi Adult/ Vitamin B1/ Folic Acid/NS) 1,011.2 ml @ 75 mls/hr DAILY IVPB Last administered on 09:16; Admin Dose 75 MLS/HR; Start 02/10/17 at 18:00 Lorazepam (Ativan) 1 mg Q1HWA PRN IM AGITATION/ANXIETY; Start 02/10/17 at 19:00 Chlordiazepoxide (Librium) 25 mg TID PO Last administered on 02/11/17 09:29; Admin Dose 25 MG; Start 02/10/17 at 21:00 Trimethobenzamide HCl (Tigan) 200 mg Q6H PRN IM NAUSEA AND/OR VOMITING; Start 02/10/17 at 19:30 Metoclopramide HCl (Reglan) 5 mg BID IV Last administered on 02/11/17 11:58; Admin Dose 5 MG; Start 02/11/17 at 11:00; Stop 02/12/17 at 23:55 SANDRA DAVIS MD Feb 11, 2017 14:35
--- NOTE | 2017-02-11 14:44 | PN ---
Date/Time of Note Date/Time of Note DATE: 02/11/17 TIME: 14:36 Assessment/Plan Lines/Catheters IV Catheter Type (from Nrs): Peripheral IV Zeng in Place (from Nrs): Yes Assessment/Plan Assessment/Plan [facility] Progress Note Date of Service: 02/11/17 Today's Impression & Plan: Overall stable. WBC 22 today, with bandemia, but less neutrophil component; abd remains benign; CT showed similar picture to before without obvious abscess ( awaiting discussion with IR); not likely that he will need drainage, but will discuss further; patient confirmed significant ETOH use, supporting ETOH withdrawal as a component of his clinical picture. No indication for acute surgical intervention. Remains high risk for complication given perforated colon in the setting of uncontrolled Crohn's. Recovery will take extra time with likely need for rehab. D/w team. With above assessment, I've recommended the following for today: 1. F/u on C-diff 2. Labs in am 3. May have to stay on liquid diet for now 4. Treat ETOH withdrawal 5. Cont gentle diuresis to BMP < 200 6. Social work and case management to please start working on possible rehab vs. home health nurse set up 7. Increase activity 8. Increase ICS 9. Cont broad spec antimicrobials 10. Low threshold for repeat cultures 11. Low threshold for transfer back to ICU if deteriorates Thank you again for your great care of this very pleasant patient and wonderful family. If there are any questions, please feel free to call me at [phone]. TOTAL VISIT TIME: 20 minutes of which more than half was spent in [id number] discussion with the patient, possibly including family, as well as coordination of care between multiple physicians and providers. Disclaimer: Inadvertent spelling or grammatical errors are likely due to EHR/ dictation software use and do not reflect on the overall quality of patient care. Updated Clinical Summary: a very pleasant 46-year-old gentleman with history of Crohn's disease as well as prior surgery for anal fistula approximately 5 years ago, and a torn meniscus repair on the left knee, presenting with abdominal pain associated with a few weeks' duration of diarrhea. S/p an otherwise uncomplicated diagnostic laparoscopy was converted first to hand assist and then to open exploration when perforated sigmoid colon was found and it was resected with a Deena type procedure and end colostomy as well as core needle liver biopsy, segment 5, due to presence of fatty liver disease, lysis of adhesions, and abdominal lavage on 02/01/17. Failed to wean off the vent through 02/06/17. PE was evaluated 02/07/[address] angio and no evidence found. CT abd/pelvis also did not show actionable findings (no abscess; bowel thickening somewhat expected). Extubated 02/07/17. COMORBIDITIES: 1. Crohn disease with perforation of sigmoid colon and sepsis. S/p an otherwise uncomplicated diagnostic laparoscopy was converted first to hand assist and then to open exploration when perforated sigmoid colon was found and it was resected with a Deena type procedure and end colostomy as well as core needle liver biopsy, segment 5, due to presence of fatty liver disease, lysis of adhesions, and abdominal lavage on 02/01/17. 2. Repair of a fistula approximately 5 years ago. 3. Torn meniscus on the left knee status post repair. Subjective: No major events or complaints overnight; confusion continues, but less agitated ; no major pulmonary complaints; tolerating liquids and no emesis; no abd pain and under control with medications; no n/v/d currently; no sob or cp; + flatus; + BM; minimal activity Objective: Vitals: See below Exam: GENERAL: On exam, the patient was laying in bed and appeared to be comfortable and in no acute distress. ABDOMEN: Soft, nontender and nondistended. Incision dressings are clean, dry and intact without any evidence of obvious underlying erythema, edema, discharge , or hernia. Surgery drain site clean. Ostomy pink and viable; some air and stool in the bag. There are no peritoneal signs or guarding. SKIN: Skin appears to be pink and feels warm to touch. NEUROLOGIC: Patient is awake, alert, and follows commands appropriately. Exam/Review of Systems Vital Signs Vitals Vital Signs Date Time Temp Pulse Resp B/P Pulse Ox O2 Delivery O2 Flow Rate FiO2 02/11/17 13:10 124 20 93 Nasal Cannula 4.0 02/11/17 11:44 98.0 122/66 02/10/17 17:30 28 Intake and Output 02/10/17 02/10/17 02/11/17 15:00 23:00 07:00 Intake Total 1000 ml 1000 ml 200 ml Output Total 1100 ml 1200 ml Balance 1000 ml -100 ml -1000 ml Results Result Diagram: 02/11/17 0736 02/11/17 0736 TI HILTON M.D. Feb 11, 2017 14:43
--- NOTE | 2017-02-11 14:52 | CONS ---
Date/Time of Note Date/Time of Note DATE: 02/11/17 TIME: 14:48 Assessment/Plan Assessment/Plan Additional Assessment/Plan Perforated colon status post surgery Severe sepsis Respiratory failure-extubated Low normal ejection fraction 50% Volume overload Crohn's disease Thrombocytopenia, improving Anemia Encephalopathy -Patient with worsening mental status today and confusion. Undergoing medication adjustments. Fluid status has improved, diuretics currently on hold. Consultation Date/Type/Reason Admit Date/Time Feb 01, 2017 at 03:10 Initial Consult Date 02/02/17 Type of Consultation: cv Referring Provider: VINCE PADGETT 24 HR Interval Summary Free Text/Dictation Patient increased confusion today Exam/Review of Systems Vital Signs Vitals Vital Signs Date Time Temp Pulse Resp B/P Pulse Ox O2 Delivery O2 Flow Rate FiO2 02/11/17 13:10 124 20 93 Nasal Cannula 4.0 02/11/17 11:44 98.0 122/66 02/10/17 17:30 28 Intake and Output 02/10/17 02/10/17 02/11/17 15:00 23:00 07:00 Intake Total 1000 ml 1000 ml 200 ml Output Total 1100 ml 1200 ml Balance 1000 ml -100 ml -1000 ml Exam Confused, trying to get out of bed Head: normocephalic Respiratory: other (Coarse breath sounds bilaterally, no wheezing) Cardiovascular: other (S1-S2 heard), regular rate and rhythm (Tachycardic) Gastrointestinal: bowel sounds, non-tender, soft Extremities: edema Results Result Diagram: 02/11/17 0736 02/11/17 0736 Results 24 hrs Laboratory Tests Test 02/10/17 17:20 02/11/17 07:36 02/11/17 09:07 02/11/17 10:28 Vancomycin Level Trough 14.0 Ethyl Alcohol Level < 10.0 White Blood Count 22.0 #H Red Blood Count 2.95 L Hemoglobin 8.5 L Hematocrit 26.1 L Mean Corpuscular Volume 88.5 Mean Corpuscular Hemoglobin 28.8 L Mean Corpuscular Hemoglobin Concent 32.6 Red Cell Distribution Width 14.3 Platelet Count 360 Mean Platelet Volume 13.2 H Neutrophils % 82.0 H Band Neutrophils % 8.0 H Lymphocytes % 4.0 L Reactive Lymphocytes % 2.0 Monocytes % 2.0 Eosinophils % Metamyelocytes % 1.0 H Myelocytes % 1.0 H Neutrophils # 18.0 H Lymphocytes # 0.9 Monocytes # 0.4 Eosinophils # Metamyelocytes # 0.2 Myelocytes # 0.2 Sodium Level 141 Potassium Level 3.3 L Chloride Level 109 Carbon Dioxide Level 24 Anion Gap 11 Blood Urea Nitrogen 22 H Creatinine 0.67 Glucose Level 81 Calcium Level 7.4 L Phosphorus Level 4.0 Magnesium Level 1.6 L Blood Gas Specimen Source Blood arterial Arterial Blood Date Drawn 02/11/2017 10:35:52 AM Arterial Blood pH (Temp corrected) 7.475 H Arterial Blood pCO2 (Temp correct) 30.9 L Arterial Blood pO2 (Temp corrected) 86.5 Arterial Blood HCO3 22.2 Arterial Blood Base Excess -0.8 Arterial Blood Oxygen Saturation 95.2 Raffy Test ACCEPTAB Arterial Blood Gas Puncture Site Right Radial Arterial Blood Carboxyhemoglobin 0.3 Arterial Blood Methemoglobin 0.1 Blood Gas A-a O2 Differential 134.3 H Oxyhemoglobin Percent 94.8 Total Hemoglobin 9.6 L Blood Gas Temperature 37.0 Blood Gas Modality NASAL CANNULA FiO2 36.0 Blood Gas Notified Whom JLD Blood Gas Notified Time 02/11/2017 10:44:26 AM Lactic Acid Level 0.9 Medications Medications Current Medications Hydromorphone HCl (Dilaudid) 1 mg Q4H PRN IV pain Last administered on 17:29; Admin Dose 1 MG; Start 02/01/17 at 03:30 Pantoprazole (Protonix Iv) 40 mg DAILY@06 IV Last administered on 02/11/17 05: 21; Admin Dose 40 MG; Start 02/01/17 at 06:00 Acetaminophen/ Hydrocodone Bitart ([place] (5/325)) 1 tab Q4H PRN PO PAIN LEVEL 4 -7 Last administered on 02/09/17 18:48; Admin Dose 1 TAB; Start 02/01/17 at 20: 30 Acetaminophen/ Hydrocodone Bitart ([place] (5/325)) 2 tab Q4H PRN PO PAIN LEVEL 7 -10; Start 02/01/17 at 20:30 Hydromorphone HCl (Dilaudid) 0.5 mg Q2 PRN IV PAIN; Start 02/01/17 at 20:30 Hydromorphone HCl (Dilaudid) 1 mg Q2 PRN IV PAIN Last administered on 11:57; Admin Dose 1 MG; Start 02/01/17 at 20:30 Docusate Sodium (Colace) 100 mg BID PRN PO CONSTIPATION; Start 02/01/17 at 20: 30 Bisacodyl (Dulcolax Supp) 10 mg BID PRN [place] CONSTIPATION; Start 02/01/17 at 20: 30 Sodium Biphosphate/ Sodium Phosphate 133 ml 133 ml BID PRN [place] CONSTIPATION; Start 02/01/17 at 20:30 Metronidazole 100 ml @ 100 mls/hr Q8 IVPB Last administered on 02/11/17 14:27 ; Admin Dose 100 MLS/HR; Start 02/04/17 at 15:00 Vancomycin HCl 250 ml @ 125 mls/hr Q12H IVPB Last administered on 02/11/17 06 :33; Admin Dose 125 MLS/HR; Start 02/05/17 at 06:00 Meropenem (Merrem 500 Mg/ 100 ml (Pmx)) 100 ml @ 200 mls/hr Q8 IVPB Last administered on 02/11/17 05:57; Admin Dose 200 MLS/HR; Start 02/05/17 at 22:00 Acetaminophen (Tylenol Liquid) 650 mg Q4H PRN GTB PAIN AND OR ELEVATED TEMP Last administered on 02/06/17 05:06; Admin Dose 650 MG; Start 02/05/17 at 18:30 Salmeterol Xinafoate/ Fluticasone (Advair 250/50 Diskus) 1 inh BID INH Last administered on 02/10/17 20:22; Admin Dose 1 INH; Start 02/07/17 at 11:00 IV Flush (NS 10 ml) 10 ml PRN PRN IV IV PROTOCOL; Start 02/07/17 at 14:30 Diphenhydramine HCl 25 mg 25 mg Q6H PRN IV itching ; Start 02/07/17 at 20:00 Ondansetron HCl/ Sodium Chloride (Zofran Inj/NS) 54 ml @ 216 mls/hr Q6H PRN IV NAUSEA AND/OR VOMITING; Start 02/09/17 at 11:30 Prednisone (Prednisone) 40 mg DAILY PO Last administered on 02/11/17 09:28; Admin Dose 40 MG; Start 02/11/17 at 09:00 Furosemide (Lasix) 20 mg DAILY IV Last administered on 02/11/17 09:29; Admin Dose 20 MG; Start 02/11/17 at 09:00; Status Future Hold Lorazepam 1 mg 1 mg Q2 PRN IV AGITATION/ANXIETY Last administered on 02/11/17 14:31; Admin Dose 1 MG; Start 02/10/17 at 17:00 Multivitamins/ Thiamine HCl/ Folic Acid/Sodium Chloride (Mvi Adult/ Vitamin B1/ Folic Acid/NS) 1,011.2 ml @ 75 mls/hr DAILY IVPB Last administered on 09:16; Admin Dose 75 MLS/HR; Start 02/10/17 at 18:00 Lorazepam (Ativan) 1 mg Q1HWA PRN IM AGITATION/ANXIETY; Start 02/10/17 at 19:00 Chlordiazepoxide (Librium) 25 mg TID PO Last administered on 02/11/17 09:29; Admin Dose 25 MG; Start 02/10/17 at 21:00 Trimethobenzamide HCl (Tigan) 200 mg Q6H PRN IM NAUSEA AND/OR VOMITING; Start 02/10/17 at 19:30 Metoclopramide HCl (Reglan) 5 mg BID IV Last administered on 02/11/17 11:58; Admin Dose 5 MG; Start 02/11/17 at 11:00; Stop 02/12/17 at 23:55 Keith Gandhi DO Feb 11, 2017 14:52
[2017-02-12] VITALS (12 sets, daily range): BP systolic 105–120; BP diastolic 65–73; PULSE 93–121; RESP 18–22
[2017-02-12] MEDS: PANTOPRAZOLE 40 MG INJ IV SCH (05:01)
[2017-02-12] MEDS: MEROPENEM 500 MG/100 ML (PMX) 100 ML IVPB SCH ×3 (05:02→21:20)
[2017-02-12] MEDS: metroNIDAZOLE 500 MG/NS (PMX) 100 ML IVPB SCH ×3 (05:02→21:09)
[2017-02-12] MEDS: VANCOMYCIN 1 GM in NS 250 ML IVPB SCH ×2 (05:35→17:29)
[2017-02-12 06:40] LABS: ADD SCAN DIFF NO
[2017-02-12 06:45] LABS: EOSINOPHILS # 0.1 10^3/ul (0.0-0.5); EOSINOPHILS % 0.4 % (0.0-7.0); HEMATOCRIT 24.9 % (42.0-52.0); HEMOGLOBIN 7.7 g/dl (14.0-18.0); LYMPHOCYTES # 0.8 10^3/ul (0.8-2.9); MEAN CORPUSCULAR HEMOGLOBIN 28.5 pg (29.0-33.0); MEAN CORPUSCULAR HGB CONC 30.9 g/dl (32.0-37.0); MEAN CORPUSCULAR VOLUME 92.2 fl (82.0-101.0); MEAN PLATELET VOLUME 12.6 fl (7.4-10.4); MONOCYTE # 0.7 10^3/ul (0.3-0.9); MONOCYTES % 3.6 % (0.0-11.0); NEUTROPHIL # 18.4 10^3/ul (1.6-7.5); PLATELET COUNT 412 10^3/UL (140-415); RED CELL DISTRIBUTION WIDTH 14.7 % (11.5-14.5); WHITE BLOOD COUNT 20.4 10^3/ul (4.8-10.8)
[2017-02-12 07:00] LABS: NEUTROPHILS % 90.4 % (39.0-77.0)
[2017-02-12 07:10] LABS: MAGNESIUM 1.8 mg/dl (1.7-2.5); PHOSPHORUS 4.1 mg/dl (2.5-4.9)
[2017-02-12 07:16] LABS: POTASSIUM 3.3 mmol/L (3.5-5.1)
[2017-02-12 07:19] LABS: CREATININE 0.66 mg/dl (0.61-1.24)
[2017-02-12 07:20] LABS: CALCIUM 7.4 mg/dl (8.4-10.2)
[2017-02-12] MEDS: SALMETEROL/FLUTICASONE 250/50 INHA INH SCH ×2 (09:03→21:00)
[2017-02-12] MEDS: predniSONE 20 MG TAB PO SCH (09:03)
[2017-02-12] MEDS: METOCLOPRAMIDE 10 MG INJ IV SCH ×2 (09:03→21:09)
[2017-02-12] MEDS: MULTIVITAMINS 10 ML, THIAMINE 100 MG, FOLIC ACID 1 MG in SOD CHLORIDE 0.9% 1,000 ML IVPB SCH (09:03)
--- NOTE | 2017-02-12 09:05 | CONS ---
Date/Time of Note Date/Time of Note DATE: 02/12/17 TIME: 09:03 Assessment/Plan Assessment/Plan Additional Assessment/Plan Perforated sigmoid colon * Laparoscopic exploration,open sigmoid colectomy with Deena end colostomy with liver biopsy segment V h/o Crohn's disease Thrombocytopenia Liver Cirrhosis Plan: * continue present management * will reevaluate for Crohn disease once recovered from surgery * Further recommendations depend on clinical course * Pt seen in collaboration with Dr. Jackson Consultation Date/Type/Reason Admit Date/Time Feb 01, 2017 at 03:10 Initial Consult Date 02/02/17 Type of Consultation: GI Referring Provider: VINCE PADGETT 24 HR Interval Summary Free Text/Dictation Bernarda full liquid diet Unable to follow commands at bedside Thoracentesis planned today Exam/Review of Systems Vital Signs Vitals Vital Signs Date Time Temp Pulse Resp B/P Pulse Ox O2 Delivery O2 Flow Rate FiO2 02/12/17 08:42 110 02/12/17 07:16 98.1 20 119/71 93 02/11/17 20:32 4.0 02/11/17 19:15 Nasal Cannula 02/10/17 17:30 28 Intake and Output 02/11/17 02/11/17 02/12/17 15:00 23:00 07:00 Intake Total 50 ml 1661.2 ml 250 ml Output Total 2100 ml 1250 ml Balance 50 ml -438.8 ml -1000 ml Exam Constitutional: frail Eyes: PERRL, nl sclera Neck: non-tender, supple Respiratory: crackles/rales, diminished breath sounds Cardiovascular: nl pulses, regular rate and rhythm Gastrointestinal: bowel sounds, distended, non-tender, other (colostomy ), soft Musculoskeletal: nl extremities to inspection Extremities: normal pulses Skin: rash or lesions Results Result Diagram: 02/12/17 0608 02/12/17 0608 Results 24 hrs Laboratory Tests Test 02/11/17 09:07 02/11/17 10:28 02/12/17 06:08 Blood Gas Specimen Source Blood arterial Arterial Blood Date Drawn 02/11/2017 10:35:52 AM Arterial Blood pH (Temp corrected) 7.475 H Arterial Blood pCO2 (Temp correct) 30.9 L Arterial Blood pO2 (Temp corrected) 86.5 Arterial Blood HCO3 22.2 Arterial Blood Base Excess -0.8 Arterial Blood Oxygen Saturation 95.2 Raffy Test ACCEPTAB Arterial Blood Gas Puncture Site Right Radial Arterial Blood Carboxyhemoglobin 0.3 Arterial Blood Methemoglobin 0.1 Blood Gas A-a O2 Differential 134.3 H Oxyhemoglobin Percent 94.8 Total Hemoglobin 9.6 L Blood Gas Temperature 37.0 Blood Gas Modality NASAL CANNULA FiO2 36.0 Blood Gas Notified Whom JLD Blood Gas Notified Time 02/11/2017 10:44:26 AM Lactic Acid Level 0.9 White Blood Count 20.4 H Red Blood Count 2.70 L Hemoglobin 7.7 L Hematocrit 24.9 L Mean Corpuscular Volume 92.2 Mean Corpuscular Hemoglobin 28.5 L Mean Corpuscular Hemoglobin Concent 30.9 L Red Cell Distribution Width 14.7 H Platelet Count 412 Mean Platelet Volume 12.6 H Neutrophils % 90.4 H Lymphocytes % 4.0 L Monocytes % 3.6 Eosinophils % 0.4 Basophils % 0.0 Nucleated Red Blood Cells % 0.0 Neutrophils # 18.4 H Lymphocytes # 0.8 Monocytes # 0.7 Eosinophils # 0.1 Basophils # 0.0 Nucleated Red Blood Cells # 0.0 Sodium Level 145 H Potassium Level 3.3 L Chloride Level 111 H Carbon Dioxide Level 21 Anion Gap 16 Blood Urea Nitrogen 20 Creatinine 0.66 Glucose Level 87 Calcium Level 7.4 L Phosphorus Level 4.1 Magnesium Level 1.8 Medications Medications Current Medications Hydromorphone HCl (Dilaudid) 1 mg Q4H PRN IV pain Last administered on 17:29; Admin Dose 1 MG; Start 02/01/17 at 03:30 Pantoprazole (Protonix Iv) 40 mg DAILY@06 IV Last administered on 02/12/17 05: 01; Admin Dose 40 MG; Start 02/01/17 at 06:00 Acetaminophen/ Hydrocodone Bitart ([place] (5/325)) 1 tab Q4H PRN PO PAIN LEVEL 4 -7 Last administered on 02/09/17 18:48; Admin Dose 1 TAB; Start 02/01/17 at 20: 30 Acetaminophen/ Hydrocodone Bitart ([place] (5/325)) 2 tab Q4H PRN PO PAIN LEVEL 7 -10; Start 02/01/17 at 20:30 Hydromorphone HCl (Dilaudid) 0.5 mg Q2 PRN IV PAIN; Start 02/01/17 at 20:30 Hydromorphone HCl (Dilaudid) 1 mg Q2 PRN IV PAIN Last administered on 11:57; Admin Dose 1 MG; Start 02/01/17 at 20:30 Docusate Sodium (Colace) 100 mg BID PRN PO CONSTIPATION; Start 02/01/17 at 20: 30 Bisacodyl (Dulcolax Supp) 10 mg BID PRN [place] CONSTIPATION; Start 02/01/17 at 20: 30 Sodium Biphosphate/ Sodium Phosphate 133 ml 133 ml BID PRN [place] CONSTIPATION; Start 02/01/17 at 20:30 Metronidazole 100 ml @ 100 mls/hr Q8 IVPB Last administered on 02/12/17 05:02 ; Admin Dose 100 MLS/HR; Start 02/04/17 at 15:00 Vancomycin HCl 250 ml @ 125 mls/hr Q12H IVPB Last administered on 02/12/17 05 :35; Admin Dose 125 MLS/HR; Start 02/05/17 at 06:00 Meropenem (Merrem 500 Mg/ 100 ml (Pmx)) 100 ml @ 200 mls/hr Q8 IVPB Last administered on 02/12/17 05:02; Admin Dose 200 MLS/HR; Start 02/05/17 at 22:00 Acetaminophen (Tylenol Liquid) 650 mg Q4H PRN GTB PAIN AND OR ELEVATED TEMP Last administered on 02/06/17 05:06; Admin Dose 650 MG; Start 02/05/17 at 18:30 Salmeterol Xinafoate/ Fluticasone (Advair 250/50 Diskus) 1 inh BID INH Last administered on 02/11/17 20:43; Admin Dose 1 INH; Start 02/07/17 at 11:00 IV Flush (NS 10 ml) 10 ml PRN PRN IV IV PROTOCOL; Start 02/07/17 at 14:30 Diphenhydramine HCl 25 mg 25 mg Q6H PRN IV itching ; Start 02/07/17 at 20:00 Ondansetron HCl/ Sodium Chloride (Zofran Inj/NS) 54 ml @ 216 mls/hr Q6H PRN IV NAUSEA AND/OR VOMITING; Start 02/09/17 at 11:30 Prednisone (Prednisone) 40 mg DAILY PO Last administered on 02/11/17 09:28; Admin Dose 40 MG; Start 02/11/17 at 09:00 Furosemide (Lasix) 20 mg DAILY IV Last administered on 02/11/17 09:29; Admin Dose 20 MG; Start 02/11/17 at 09:00; Status Future Hold Lorazepam 1 mg 1 mg Q2 PRN IV AGITATION/ANXIETY Last administered on 02/11/17 14:31; Admin Dose 1 MG; Start 02/10/17 at 17:00 Multivitamins/ Thiamine HCl/ Folic Acid/Sodium Chloride (Mvi Adult/ Vitamin B1/ Folic Acid/NS) 1,011.2 ml @ 75 mls/hr DAILY IVPB Last administered on 09:16; Admin Dose 75 MLS/HR; Start 02/10/17 at 18:00 Lorazepam (Ativan) 1 mg Q1HWA PRN IM AGITATION/ANXIETY; Start 02/10/17 at 19:00 Chlordiazepoxide (Librium) 25 mg TID PO Last administered on 02/11/17 09:29; Admin Dose 25 MG; Start 02/10/17 at 21:00 Trimethobenzamide HCl (Tigan) 200 mg Q6H PRN IM NAUSEA AND/OR VOMITING; Start 02/10/17 at 19:30 Metoclopramide HCl (Reglan) 5 mg BID IV Last administered on 02/11/17 20:36; Admin Dose 5 MG; Start 02/11/17 at 11:00; Stop 02/12/17 at 23:55 TONY MCCRAY Feb 12, 2017 09:04
[2017-02-12] MEDS: CHLORDIAZEPOXIDE 25 MG CAP PO SCH ×3 (10:19→21:00)
[2017-02-12] MEDS ORDERED: POTASSIUM CHLORIDE 250 ML IVPB ONE (10:30)
--- NOTE | 2017-02-12 10:51 | PN ---
Date/Time of Note Date/Time of Note DATE: 02/12/17 TIME: 10:35 Assessment/Plan Lines/Catheters IV Catheter Type (from Nrs): Peripheral IV Zeng in Place (from Nrs): Yes Assessment/Plan Assessment/Plan [facility] Progress Note Date of Service: 02/12/17 Today's Impression & Plan: Overall stable. WBC 20.4 (from 22 yesterday); abd remains benign; ETOH withdrawal ongoing. Discussed case with IR (Dr. Vera) and agreed with aspirating the RUQ and LLQ fluid pockets with plans to put in drains if purulent. No indication for acute surgical intervention. Remains high risk for complication given perforated colon in the setting of uncontrolled Crohn's. Recovery will take extra time with likely need for rehab. D/w team. With above assessment, I've recommended the following for today: 1. F/u on C-diff 2. Labs in am 3. May have to start TPN given length of time and likelihood of not being able to take enough calories in 4. Treat ETOH withdrawal 5. Cont gentle diuresis to BMP < 200 6. Social work and case management to please start working on possible rehab vs. home health nurse set up 7. Increase activity 8. Increase ICS 9. Cont broad spec antimicrobials 10. Low threshold for repeat cultures 11. Low threshold for transfer back to ICU if deteriorates 12. CT-guided drainage of abscess LLQ and RUQ as above Thank you again for your great care of this very pleasant patient and wonderful family. If there are any questions, please feel free to call me at [phone]. TOTAL VISIT TIME: 20 minutes of which more than half was spent in [id number] discussion with the patient, possibly including family, as well as coordination of care between multiple physicians and providers. Disclaimer: Inadvertent spelling or grammatical errors are likely due to EHR/ dictation software use and do not reflect on the overall quality of patient care. Updated Clinical Summary: a very pleasant 46-year-old gentleman with history of Crohn's disease as well as prior surgery for anal fistula approximately 5 years ago, and a torn meniscus repair on the left knee, presenting with abdominal pain associated with a few weeks' duration of diarrhea. S/p an otherwise uncomplicated diagnostic laparoscopy was converted first to hand assist and then to open exploration when perforated sigmoid colon was found and it was resected with a Deena type procedure and end colostomy as well as core needle liver biopsy, segment 5, due to presence of fatty liver disease, lysis of adhesions, and abdominal lavage on 02/01/17. Failed to wean off the vent through 02/06/17. PE was evaluated 02/07/[address] angio and no evidence found. CT abd/pelvis also did not show actionable findings (no abscess; bowel thickening somewhat expected). Extubated 02/07/17. COMORBIDITIES: 1. Crohn disease with perforation of sigmoid colon and sepsis. S/p an otherwise uncomplicated diagnostic laparoscopy was converted first to hand assist and then to open exploration when perforated sigmoid colon was found and it was resected with a Deena type procedure and end colostomy as well as core needle liver biopsy, segment 5, due to presence of fatty liver disease, lysis of adhesions, and abdominal lavage on 02/01/17. 2. Repair of a fistula approximately 5 years ago. 3. Torn meniscus on the left knee status post repair. Subjective: No major events or complaints overnight; confusion continues, but less agitated ; no major pulmonary complaints; tolerating liquids and no emesis (PO intake amounts are low); no abd pain and under control with medications; no n/v/d currently; no sob or cp; + flatus; + BM; minimal activity Objective: Vitals: See below Exam: GENERAL: On exam, the patient was laying in bed and appeared to be comfortable and in no acute distress. ABDOMEN: Soft, nontender and nondistended. Incision dressings are clean, dry and without any evidence of obvious erythema, edema, discharge, or hernia. Surgery drain site clean. Ostomy pink and viable; some air and stool in the bag. There are no peritoneal signs or guarding. SKIN: Skin appears to be pink and feels warm to touch. NEUROLOGIC: Patient is awake, alert, and follows commands appropriately. Exam/Review of Systems Vital Signs Vitals Vital Signs Date Time Temp Pulse Resp B/P Pulse Ox O2 Delivery O2 Flow Rate FiO2 02/12/17 08:42 110 02/12/17 07:16 98.1 20 119/71 93 02/11/17 20:32 4.0 02/11/17 19:15 Nasal Cannula 02/10/17 17:30 28 Intake and Output 02/11/17 02/11/1702/12/17 15:00 23:00 07:00 Intake Total 50 ml 1661.2 ml 250 ml Output Total 2100 ml 1250 ml Balance 50 ml -438.8 ml -1000 ml Results Result Diagram: 02/12/17 0608 02/12/17 0608 TI HILTON M.D. Feb 12, 2017 10:51
--- NOTE | 2017-02-12 11:12 | PN ---
Date/Time of Note Date/Time of Note DATE: 02/12/17 TIME: 11:09 Assessment/Plan VTE Prophylaxis VTE Prophylaxis Intervention: SCD's Lines/Catheters IV [facility] Peripheral IV Urinary Cath still in place: Yes Reason Cath still needed: urinary retention Assessment/Plan Chief Complaint/Hosp Course Assessment/Plan: 46M with: 1. Perforated sigmoid colon 2/2 Severe Crohn's colitis - S/p Urgent Open Cronin's procedure with end colostomy, liver biopsy and abdominal lavage POD # 11. Pt with some HR tachy today, more AMS. R/O worsening sepsis vs reglan withdrawal (he had received 38 doses of this prior to yesterday, when it was stopped) vs EtOH withdrawal (has prior Hx of EtOH use before admission, per family), or combo of these 3. - f/u surgery rec's, per their rec's and CT results - planning for aspirating the RUQ and LLQ fluid pockets with plans to put in drains if purulent. - will taper reglan off over 1 day now (want to avoid abrupt stoppage of this med) - continue ativan, librium low dose prn, bananna bag 2. Acute Resp failure / ?ARDS, Vent dependent - Continue vent mgt / abx - f/u CT scan's, PO steroids 3. Chronic Crohn's disease with acute colitis and diarrhea: improved - Cultures growing ecoli / proteus / enterococcus - continue current abx 4. Persistent hypocalcemia and hypokalemia - replete as needed 5. Thrombocytopenia: ?HIT - plt nL now, monitor 6. SIRS with lactic acidosis 2/2 severe colitis - abx, f/u surgery and ID rec' s 7. Systemic shock likely hypovolemic from third spacing with hypoalbuminemia : improved, now off pressors 8. Hx of heavy alcohol and tobacco use just until admission - outreach counselor on cessation, see # 1 as well for possible withdrawal tx. 9. Probable underlying COPD and Cirrhosis based on hx which explains hypoalbuminemia - monitor 10. Anemia - transfuse per surgery rec's. Problems: Subjective 24 Hr Interval Summary Free Text/Dictation Pt still with some hallucinations, seen by surgery team today. Less tachy. Exam/Review of Systems Vital Signs Vitals Vital Signs Date Time Temp Pulse Resp B/P Pulse Ox O2 Delivery O2 Flow Rate FiO2 02/12/17 08:42 110 02/12/17 07:16 98.1 20 119/71 93 02/11/17 20:32 4.0 02/11/17 19:15 Nasal Cannula 02/10/17 17:30 28 Intake and Output 02/11/17 02/11/17 02/12/17 15:00 23:00 07:00 Intake Total 50 ml 1661.2 ml 250 ml Output Total 2100 ml 1250 ml Balance 50 ml -438.8 ml -1000 ml Exam Constitutional: opens eyes, but minimally responsive Head: atraumatic, normocephalic Eyes: PERRL Respiratory: slightly diminished breath sounds B/L Cardiovascular: tachycardic with regular rhythm Gastrointestinal: Soft, Right sided colostomy with brownish/greenish stool. surgical site covered Extremities: normal pulses, generalized edema on abd as well Results Result Diagram: 02/12/17 0608 02/12/17 0608 Results 24 hrs Laboratory Tests Test 02/12/17 06:08 White Blood Count 20.4 H Red Blood Count 2.70 L Hemoglobin 7.7 L Hematocrit 24.9 L Mean Corpuscular Volume 92.2 Mean Corpuscular Hemoglobin 28.5 L Mean Corpuscular Hemoglobin Concent 30.9 L Red Cell Distribution Width 14.7 H Platelet Count 412 Mean Platelet Volume 12.6 H Neutrophils % 90.4 H Lymphocytes % 4.0 L Monocytes % 3.6 Eosinophils % 0.4 Basophils % 0.0 Nucleated Red Blood Cells % 0.0 Neutrophils # 18.4 H Lymphocytes # 0.8 Monocytes # 0.7 Eosinophils # 0.1 Basophils # 0.0 Nucleated Red Blood Cells # 0.0 Sodium Level 145 H Potassium Level 3.3 L Chloride Level 111 H Carbon Dioxide Level 21 Anion Gap 16 Blood Urea Nitrogen 20 Creatinine 0.66 Glucose Level 87 Calcium Level 7.4 L Phosphorus Level 4.1 Magnesium Level 1.8 Medications Medications Current Medications Hydromorphone HCl (Dilaudid) 1 mg Q4H PRN IV pain Last administered on 17:29; Admin Dose 1 MG; Start 02/01/17 at 03:30 Pantoprazole (Protonix Iv) 40 mg DAILY@06 IV Last administered on 02/12/17 05: 01; Admin Dose 40 MG; Start 02/01/17 at 06:00 Acetaminophen/ Hydrocodone Bitart ([place] (5/325)) 1 tab Q4H PRN PO PAIN LEVEL 4 -7 Last administered on 02/09/17 18:48; Admin Dose 1 TAB; Start 02/01/17 at 20: 30 Acetaminophen/ Hydrocodone Bitart ([place] (5/325)) 2 tab Q4H PRN PO PAIN LEVEL 7 -10; Start 02/01/17 at 20:30 Hydromorphone HCl (Dilaudid) 0.5 mg Q2 PRN IV PAIN; Start 02/01/17 at 20:30 Hydromorphone HCl (Dilaudid) 1 mg Q2 PRN IV PAIN Last administered on 11:57; Admin Dose 1 MG; Start 02/01/17 at 20:30 Docusate Sodium (Colace) 100 mg BID PRN PO CONSTIPATION; Start 02/01/17 at 20: 30 Bisacodyl (Dulcolax Supp) 10 mg BID PRN [place] CONSTIPATION; Start 02/01/17 at 20: 30 Sodium Biphosphate/ Sodium Phosphate 133 ml 133 ml BID PRN [place] CONSTIPATION; Start 02/01/17 at 20:30 Metronidazole 100 ml @ 100 mls/hr Q8 IVPB Last administered on 02/12/17 05:02 ; Admin Dose 100 MLS/HR; Start 02/04/17 at 15:00 Vancomycin HCl 250 ml @ 125 mls/hr Q12H IVPB Last administered on 02/12/17 05 :35; Admin Dose 125 MLS/HR; Start 02/05/17 at 06:00 Meropenem (Merrem 500 Mg/ 100 ml (Pmx)) 100 ml @ 200 mls/hr Q8 IVPB Last administered on 02/12/17 05:02; Admin Dose 200 MLS/HR; Start 02/05/17 at 22:00 Acetaminophen (Tylenol Liquid) 650 mg Q4H PRN GTB PAIN AND OR ELEVATED TEMP Last administered on 02/06/17 05:06; Admin Dose 650 MG; Start 02/05/17 at 18:30 Salmeterol Xinafoate/ Fluticasone (Advair 250/50 Diskus) 1 inh BID INH Last administered on 02/12/17 09:03; Admin Dose 1 INH; Start 02/07/17 at 11:00 IV Flush (NS 10 ml) 10 ml PRN PRN IV IV PROTOCOL; Start 02/07/17 at 14:30 Diphenhydramine HCl 25 mg 25 mg Q6H PRN IV itching ; Start 02/07/17 at 20:00 Ondansetron HCl/ Sodium Chloride (Zofran Inj/NS) 54 ml @ 216 mls/hr Q6H PRN IV NAUSEA AND/OR VOMITING; Start 02/09/17 at 11:30 Prednisone (Prednisone) 40 mg DAILY PO Last administered on 02/12/17 09:03; Admin Dose 40 MG; Start 02/11/17 at 09:00 Furosemide (Lasix) 20 mg DAILY IV Last administered on 02/11/17 09:29; Admin Dose 20 MG; Start 02/11/17 at 09:00; Status Future Hold Lorazepam 1 mg 1 mg Q2 PRN IV AGITATION/ANXIETY Last administered on 02/11/17 14:31; Admin Dose 1 MG; Start 02/10/17 at 17:00 Multivitamins/ Thiamine HCl/ Folic Acid/Sodium Chloride (Mvi Adult/ Vitamin B1/ Folic Acid/NS) 1,011.2 ml @ 75 mls/hr DAILY IVPB Last administered on 09:03; Admin Dose 75 MLS/HR; Start 02/10/17 at 18:00 Lorazepam (Ativan) 1 mg Q1HWA PRN IM AGITATION/ANXIETY; Start 02/10/17 at 19:00 Chlordiazepoxide (Librium) 25 mg TID PO Last administered on 02/12/17 10:19; Admin Dose 25 MG; Start 02/10/17 at 21:00 Trimethobenzamide HCl (Tigan) 200 mg Q6H PRN IM NAUSEA AND/OR VOMITING; Start 02/10/17 at 19:30 Metoclopramide HCl 5 mg 5 mg BID IV Last administered on 02/12/17 09:03; Admin Dose 5 MG; Start 02/11/17 at 11:00; Stop 02/12/17 at 23:55 Potassium Chloride (KCl 40 MEQ/250 ML NS) 250 ml @ 62.5 mls/hr ONCE ONCE IVPB Last administered on 02/12/17 10:19; Admin Dose 62.5 MLS/HR; Start 02/12/17 at 10:30; Stop 02/12/17 at 14:29 SUSAN SANCHEZ Feb 12, 2017 11:12
--- NOTE | 2017-02-12 11:58 | CONS ---
Date/Time of Note Date/Time of Note DATE: 02/12/17 TIME: 11:54 Assessment/Plan Assessment/Plan Additional Assessment/Plan Perforated colon status post surgery Severe sepsis Respiratory failure-extubated Low normal ejection fraction 50% Volume overload Crohn's disease Thrombocytopenia, improving Anemia Encephalopathy -Patient still with confusion. Undergoing medication adjustments. Appears more congestion on lung examination today, would restart gentle IV diuretics as blood pressure and renal function permits. Supplement potassium to maintain above 4.0 and magnesium above 2.0. Consultation Date/Type/Reason Admit Date/Time Feb 01, 2017 at 03:10 Initial Consult Date 02/02/17 Type of Consultation: cv Referring Provider: VINCE PADGETT 24 HR Interval Summary Free Text/Dictation Patient still with confusion, denies shortness of breath Exam/Review of Systems Vital Signs Vitals Vital Signs Date Time Temp Pulse Resp B/P Pulse Ox O2 Delivery O2 Flow Rate FiO2 02/12/17 11:50 97.8 113 18 114/68 90 02/11/17 20:32 4.0 02/11/17 19:15 Nasal Cannula 02/10/17 17:30 28 Intake and Output 02/11/17 02/11/17 02/12/17 15:00 23:00 07:00 Intake Total 50 ml 1661.2 ml 250 ml Output Total 2100 ml 1250 ml Balance 50 ml -438.8 ml -1000 ml Exam Confused, intermittently following commands Head: normocephalic Respiratory: other (Coarse breath sounds bilaterally with mild scattered crackles, no wheezing) Cardiovascular: other (S1-S2 heard), regular rate and rhythm Gastrointestinal: bowel sounds, non-tender, soft Extremities: edema Results Result Diagram: 02/12/17 0608 02/12/17 0608 Results 24 hrs Laboratory Tests Test 02/12/17 06:08 White Blood Count 20.4 H Red Blood Count 2.70 L Hemoglobin 7.7 L Hematocrit 24.9 L Mean Corpuscular Volume 92.2 Mean Corpuscular Hemoglobin 28.5 L Mean Corpuscular Hemoglobin Concent 30.9 L Red Cell Distribution Width 14.7 H Platelet Count 412 Mean Platelet Volume 12.6 H Neutrophils % 90.4 H Lymphocytes % 4.0 L Monocytes % 3.6 Eosinophils % 0.4 Basophils % 0.0 Nucleated Red Blood Cells % 0.0 Neutrophils # 18.4 H Lymphocytes # 0.8 Monocytes # 0.7 Eosinophils # 0.1 Basophils # 0.0 Nucleated Red Blood Cells # 0.0 Sodium Level 145 H Potassium Level 3.3 L Chloride Level 111 H Carbon Dioxide Level 21 Anion Gap 16 Blood Urea Nitrogen 20 Creatinine 0.66 Glucose Level 87 Calcium Level 7.4 L Phosphorus Level 4.1 Magnesium Level 1.8 Medications Medications Current Medications Hydromorphone HCl (Dilaudid) 1 mg Q4H PRN IV pain Last administered on 17:29; Admin Dose 1 MG; Start 02/01/17 at 03:30 Pantoprazole (Protonix Iv) 40 mg DAILY@06 IV Last administered on 02/12/17 05: 01; Admin Dose 40 MG; Start 02/01/17 at 06:00 Acetaminophen/ Hydrocodone Bitart ([place] (5/325)) 1 tab Q4H PRN PO PAIN LEVEL 4 -7 Last administered on 02/09/17 18:48; Admin Dose 1 TAB; Start 02/01/17 at 20: 30 Acetaminophen/ Hydrocodone Bitart ([place] (5/325)) 2 tab Q4H PRN PO PAIN LEVEL 7 -10; Start 02/01/17 at 20:30 Hydromorphone HCl (Dilaudid) 0.5 mg Q2 PRN IV PAIN; Start 02/01/17 at 20:30 Hydromorphone HCl (Dilaudid) 1 mg Q2 PRN IV PAIN Last administered on 11:57; Admin Dose 1 MG; Start 02/01/17 at 20:30 Docusate Sodium (Colace) 100 mg BID PRN PO CONSTIPATION; Start 02/01/17 at 20: 30 Bisacodyl (Dulcolax Supp) 10 mg BID PRN [place] CONSTIPATION; Start 02/01/17 at 20: 30 Sodium Biphosphate/ Sodium Phosphate 133 ml 133 ml BID PRN [place] CONSTIPATION; Start 02/01/17 at 20:30 Metronidazole 100 ml @ 100 mls/hr Q8 IVPB Last administered on 02/12/17 05:02 ; Admin Dose 100 MLS/HR; Start 02/04/17 at 15:00 Vancomycin HCl 250 ml @ 125 mls/hr Q12H IVPB Last administered on 02/12/17 05 :35; Admin Dose 125 MLS/HR; Start 02/05/17 at 06:00 Meropenem (Merrem 500 Mg/ 100 ml (Pmx)) 100 ml @ 200 mls/hr Q8 IVPB Last administered on 02/12/17 05:02; Admin Dose 200 MLS/HR; Start 02/05/17 at 22:00 Acetaminophen (Tylenol Liquid) 650 mg Q4H PRN GTB PAIN AND OR ELEVATED TEMP Last administered on 02/06/17 05:06; Admin Dose 650 MG; Start 02/05/17 at 18:30 Salmeterol Xinafoate/ Fluticasone (Advair 250/50 Diskus) 1 inh BID INH Last administered on 02/12/17 09:03; Admin Dose 1 INH; Start 02/07/17 at 11:00 IV Flush (NS 10 ml) 10 ml PRN PRN IV IV PROTOCOL; Start 02/07/17 at 14:30 Diphenhydramine HCl 25 mg 25 mg Q6H PRN IV itching ; Start 02/07/17 at 20:00 Ondansetron HCl/ Sodium Chloride (Zofran Inj/NS) 54 ml @ 216 mls/hr Q6H PRN IV NAUSEA AND/OR VOMITING; Start 02/09/17 at 11:30 Prednisone (Prednisone) 40 mg DAILY PO Last administered on 02/12/17 09:03; Admin Dose 40 MG; Start 02/11/17 at 09:00 Furosemide (Lasix) 20 mg DAILY IV Last administered on 02/11/17 09:29; Admin Dose 20 MG; Start 02/11/17 at 09:00; Status Future Hold Lorazepam 1 mg 1 mg Q2 PRN IV AGITATION/ANXIETY Last administered on 02/11/17 14:31; Admin Dose 1 MG; Start 02/10/17 at 17:00 Multivitamins/ Thiamine HCl/ Folic Acid/Sodium Chloride (Mvi Adult/ Vitamin B1/ Folic Acid/NS) 1,011.2 ml @ 75 mls/hr DAILY IVPB Last administered on 09:03; Admin Dose 75 MLS/HR; Start 02/10/17 at 18:00 Lorazepam (Ativan) 1 mg Q1HWA PRN IM AGITATION/ANXIETY; Start 02/10/17 at 19:00 Chlordiazepoxide (Librium) 25 mg TID PO Last administered on 02/12/17 10:19; Admin Dose 25 MG; Start 02/10/17 at 21:00 Trimethobenzamide HCl (Tigan) 200 mg Q6H PRN IM NAUSEA AND/OR VOMITING; Start 02/10/17 at 19:30 Metoclopramide HCl 5 mg 5 mg BID IV Last administered on 02/12/17 09:03; Admin Dose 5 MG; Start 02/11/17 at 11:00; Stop 02/12/17 at 23:55 Potassium Chloride (KCl 40 MEQ/250 ML NS) 250 ml @ 62.5 mls/hr ONCE ONCE IVPB Last administered on 02/12/17 10:19; Admin Dose 62.5 MLS/HR; Start 02/12/17 at 10:30; Stop 02/12/17 at 14:29 Keith Gandhi DO Feb 12, 2017 11:58
[2017-02-12] MEDS ORDERED: MAGNESIUM SULFATE 2 GM/50 ML 50 ML IVPB ONE ×2 (12:00→12:30)
[2017-02-12] MEDS: FUROSEMIDE 20 MG INJ IV SCH ×2 (12:01→17:29)
[2017-02-12] MEDS ORDERED: LIDOCAINE 1% (MPF) 5 ML VIAL ONE (15:11)
[2017-02-12 16:30] LABS: AADO2 Arterial 599.6 mmHg (7.0-24.0); Allen Test ACCEPTAB; Arterial Base Excess -3.9 mmol/L (-3.0-3); Arterial COHb 0.3 % (0.0-3.0); Arterial Fraction of Oxyhgb 91.5 % (93.0-99.0); Arterial HCO3 21.1 mmol/L (22.0-26.0); Arterial MetHb 0.1 % (0.0-1.5); Arterial Total Hemglobin 8.8 g/dl (12.0-18.0); MODE MASK - NRB
--- NOTE | 2017-02-12 17:20 | RADRPT ---
PROCEDURE: XR Chest. CLINICAL INDICATION: Shortness of breath. Post right thoracentesis. TECHNIQUE: Single frontal view. COMPARISON: 02/10/2017. FINDINGS: There is atelectasis at the lung bases with left worse than right. The heart size is normal. There is a small right pleural effusion and moderate left pleural effusion. There is no pneumothorax. IMPRESSION: 1. No pneumothorax following right thoracentesis. RPTAT: QQ .Rogelio Vera MD, MD Date Time Electronically viewed and signed by .Rogelio Vera MD, MD on 02/12/2017 17:19 .R/
--- NOTE | 2017-02-12 17:35 | RADRPT ---
PROCEDURE: US guided right thoracentesis. CLINICAL INDICATION: Shortness of breath. Right pleural effusion. TECHNIQUE: Prior to the procedure, informed consent was obtained. The risks, benefits, and alternatives were e xplained to the patient or the patient's family, including but not limited to bleeding, infection, p ain, visceral or vascular damage, shock, pneumothorax, chest tube placement, air embolism, and . The patient or the patient's family understood the risks and the alternatives and wished to proce ed with the study. Informed written consent was obtained. A procedural pause was performed. The patient's name, date of , and procedure to be performed were verified. Ultrasound of the right hemithorax was performed in the axial and sagittal planes. A right pleural e ffusion is noted. Utilizing ultrasound guidance, optimal location for entry to the pleural cavity wa s ascertained. The overlying skin was prepped and draped in the usual sterile fashion. Approximate ly 10 ml of 1% Xylocaine was injected locally for pain control. Using ultrasound guidance, a 5-Fren ch Yueh catheter was introduced into the right pleural space without difficulty. Fluid was aspirated . COMPARISON: None. FINDINGS: Initial ultrasound demonstrates fluid in the right pleural space. Approximately 0.600 liters of ser ous fluid was aspirated and sent to the laboratory. IMPRESSION: 1. Satisfactory ultrasound-guided right thoracentesis. RPTAT: QQ .Rogelio Vera MD, Date Time Electronically viewed and signed by .Rogelio Vera MD, on 02/12/2017 17:34 .R/
[2017-02-12 18:09] LABS: FLUID APPEARANCE SLIGHTLY HAZY; FLUID TYPE THORACENTHESIS
[2017-02-12 18:10] LABS: FLUID LYMPHOCYTES 5 %; FLUID MONOCYTES 10 %; FLUID NEUTROPHILS 85 %; FLUID RBC EST 1+; FLUID WBC'S 531 /cmm
[2017-02-12 18:20] LABS: FLUID GLUCOSE 83 mg/dl; FLUID TYPE PLEURAL FLUID
[2017-02-12 18:21] LABS: FLUID AMYLASE < 30 U/L; FLUID TOTAL PROTEIN < 2.0 g/dl; FLUID TYPE PLEURAL FLUID
--- NOTE | 2017-02-12 18:24 | CONS ---
Date/Time of Note Date/Time of Note DATE: 02/12/17 TIME: 18:18 Assessment/Plan Assessment/Plan Chief Complaint/Hosp Course ID PROGRESS NOTE TOTAL ABX DAY #12 => Vanco IV, Merrem, Flagyl * S/P Zosyn 02/03 & 02/04 =>Zosyn was DC'd due to progressive thrombocytopenia -- PLTs improved * POD # 02/01/17 => s/p Laparoscopic exploration,open sigmoid colectomy with Deena end colostomy with liver biopsy segment V 24H INTERVAL SUMMARY * Confused, increased work of breathing started yesterday, CXR showed BLL moderate effusions, he underwent RIGHT THORA last night with some improvement, CXR post thora revealed: There is a small right pleural effusion and moderate left pleural effusion. PLEURAL FLUID HAZY WBC 538 w/increased Neuts * Now on 100% NRB, no fevers, mild tachypnea: * PLAN for IR aspirating the RUQ and LLQ fluid pockets with plans to put in drains if purulent. PHYSICAL EXAMINATION: GENERAL: VSS, restless, diaphoretic, less communicative today HEENT: Diaphoretic NECK: Supple, trach-> midline CHEST: Equal chest rise bilaterally,Mild tachypnea HEART: Pulse RRR ABDOMEN: STEVE present EXTREMITIES: Warm SKIN: Warm, dry ID ASSESSMENT: 46 yo M w/PMHx Crohn's disease admitted with: * POD # 02/01/17 => s/p Laparoscopic exploration,open sigmoid colectomy with Deena end colostomy with liver biopsy segment V 1. Sepsis, status post perforated viscus repair - SIRS continues w/ * WORSE TODAY: 22,000 w/8% BANDEMIA + TMax 99.8 today, (+)Diaphoresis, tachypnea , increased delirium => Bilateral effusions * MICRO: Abdominal fluid culture growing Proteus mirabilis, E. coli, enterococcus species and strep * CT ABD 02/11: Small volume ascites w/enhancement suggestive of peritonitis 2. Postoperative respiratory failure=> HCAP w/infiltrate developing on CXR 02/05 * CT Chest 02/11: Moderate large layering bilateral pleural effusions with passive atelectasis within the lung bases. 4. Anemia with persistent thrombocytopenia, possibly secondary to sepsis and antibiotics.=> IMPROVED * Zosyn was changed to Levaquin. * rule out heparin-induced thrombocytopenia versus other etiologies, 6. Status post acute renal failure. 7. LIVER DX: Fatty liver w/necroinflammatory activity, no fibrosis, small iron deposit on stain 9. Hx of heavy alcohol and tobacco use just until admission - ?ETOH Withdrawal SXS? 9. Probable underlying COPD and Cirrhosis based on hx which explains hypoalbuminemia - monitor (-)MRSA Nares INVASIVES: * STEVE, PICC 02/07 ABX ALLERGIES: KNDA CURRENT ABX: TOTAL ABX DAY #11 => Vanco IV, Merrem, Flagyl S/P Zosyn ID RECOMMENDATIONS: 1. PLAN for IR aspirating the RUQ and LLQ fluid pockets with plans to put in drains if purulent. 2. Continue current ABX 3. Further recs pulmonary & surgery appreciated / . . . Problems: Consultation Date/Type/Reason Admit Date/Time Feb 01, 2017 at 03:10 Initial Consult Date 02/02/17 Type of Consultation: cv Referring Provider: VINCE PADGETT Exam/Review of Systems Vital Signs Vitals Vital Signs Date Time Temp Pulse Resp B/P Pulse Ox O2 Delivery O2 Flow Rate FiO2 02/12/17 18:09 15.0 100 02/12/17 16:25 103 02/12/17 15:45 21 106/67 93 Non Rebreather 02/12/17 11:50 97.8 Intake and Output 02/11/17 02/11/17 02/12/17 15:00 23:00 07:00 Intake Total 50 ml 1661.2 ml 250 ml Output Total 2100 ml 1250 ml Balance 50 ml -438.8 ml -1000 ml Results Result Diagram: 02/12/17 0608 02/12/17 0608 Results 24 hrs Laboratory Tests Test 02/12/17 06:08 02/12/17 15:05 02/12/17 16:01 02/12/17 16:45 White Blood Count 20.4 H Red Blood Count 2.70 L Hemoglobin 7.7 L Hematocrit 24.9 L Mean Corpuscular Volume 92.2 Mean Corpuscular Hemoglobin 28.5 L Mean Corpuscular Hemoglobin Concent 30.9 L Red Cell Distribution Width 14.7 H Platelet Count 412 Mean Platelet Volume 12.6 H Neutrophils % 90.4 H Lymphocytes % 4.0 L Monocytes % 3.6 Eosinophils % 0.4 Basophils % 0.0 Nucleated Red Blood Cells % 0.0 Neutrophils # 18.4 H Lymphocytes # 0.8 Monocytes # 0.7 Eosinophils # 0.1 Basophils # 0.0 Nucleated Red Blood Cells # 0.0 Sodium Level 145 H Potassium Level 3.3 L Chloride Level 111 H Carbon Dioxide Level 21 Anion Gap 16 Blood Urea Nitrogen 20 Creatinine 0.66 Glucose Level 87 Calcium Level 7.4 L Phosphorus Level 4.1 Magnesium Level 1.8 Body Fluid Type THORACENTHESIS Body Fluid Volume 600.0 Body Fluid Color YELLOW Body Fluid Appearance SLIGHTLY HAZY Body Fluid WBC 531 Body Fluid RBC 1+ Body Fluid Neutrophils % 85 Body Fluid Lymphocytes (%) 5 Body Fluid Monocytes % 10 Body Fluid Other Cells (%) Blood Gas Specimen Source Blood arterial Arterial Blood Date Drawn 02/12/2017 4:14:26 PM Arterial Blood pH (Temp corrected) 7.366 Arterial Blood pCO2 (Temp correct) 37.6 Arterial Blood pO2 (Temp corrected) 75.8 L Arterial Blood HCO3 21.1 L Arterial Blood Base Excess -3.9 L Arterial Blood Oxygen Saturation 91.9 L Raffy Test ACCEPTAB Arterial Blood Gas Puncture Site Right Radial Arterial Blood Carboxyhemoglobin 0.3 Arterial Blood Methemoglobin 0.1 Blood Gas A-a O2 Differential 599.6 H Oxyhemoglobin Percent 91.5 L Total Hemoglobin 8.8 L Blood Gas Temperature 37.0 Blood Gas Modality MASK - NRB FiO2 100.0 Blood Gas Notified Whom LC Blood Gas Notified Time 02/12/2017 4:30:03 PM Lactic Acid Level 0.6 Troponin I < 0.012 Medications Medications Current Medications Hydromorphone HCl (Dilaudid) 1 mg Q4H PRN IV pain Last administered on 17:29; Admin Dose 1 MG; Start 02/01/17 at 03:30 Pantoprazole (Protonix Iv) 40 mg DAILY@06 IV Last administered on 02/12/17 05: 01; Admin Dose 40 MG; Start 02/01/17 at 06:00 Acetaminophen/ Hydrocodone Bitart ([place] (5/325)) 1 tab Q4H PRN PO PAIN LEVEL 4 -7 Last administered on 02/09/17 18:48; Admin Dose 1 TAB; Start 02/01/17 at 20: 30 Acetaminophen/ Hydrocodone Bitart ([place] (5/325)) 2 tab Q4H PRN PO PAIN LEVEL 7 -10; Start 02/01/17 at 20:30 Hydromorphone HCl (Dilaudid) 0.5 mg Q2 PRN IV PAIN; Start 02/01/17 at 20:30 Hydromorphone HCl (Dilaudid) 1 mg Q2 PRN IV PAIN Last administered on 11:57; Admin Dose 1 MG; Start 02/01/17 at 20:30 Docusate Sodium (Colace) 100 mg BID PRN PO CONSTIPATION; Start 02/01/17 at 20: 30 Bisacodyl (Dulcolax Supp) 10 mg BID PRN [place] CONSTIPATION; Start 02/01/17 at 20: 30 Sodium Biphosphate/ Sodium Phosphate 133 ml 133 ml BID PRN ND CONSTIPATION; Start 02/01/17 at 20:30 Metronidazole 100 ml @ 100 mls/hr Q8 IVPB Last administered on 02/12/17 15:43 ; Admin Dose 100 MLS/HR; Start 02/04/17 at 15:00 Vancomycin HCl 250 ml @ 125 mls/hr Q12H IVPB Last administered on 02/12/17 17 :29; Admin Dose 125 MLS/HR; Start 02/05/17 at 06:00 Meropenem (Merrem 500 Mg/ 100 ml (Pmx)) 100 ml @ 200 mls/hr Q8 IVPB Last administered on 02/12/17 16:42; Admin Dose 200 MLS/HR; Start 02/05/17 at 22:00 Acetaminophen (Tylenol Liquid) 650 mg Q4H PRN GTB PAIN AND OR ELEVATED TEMP Last administered on 02/06/17 05:06; Admin Dose 650 MG; Start 02/05/17 at 18:30 Salmeterol Xinafoate/ Fluticasone (Advair 250/50 Diskus) 1 inh BID INH Last administered on 02/12/17 09:03; Admin Dose 1 INH; Start 02/07/17 at 11:00 IV Flush (NS 10 ml) 10 ml PRN PRN IV IV PROTOCOL; Start 02/07/17 at 14:30 Diphenhydramine HCl 25 mg 25 mg Q6H PRN IV itching ; Start 02/07/17 at 20:00 Ondansetron HCl/ Sodium Chloride (Zofran Inj/NS) 54 ml @ 216 mls/hr Q6H PRN IV NAUSEA AND/OR VOMITING; Start 02/09/17 at 11:30 Prednisone (Prednisone) 40 mg DAILY PO Last administered on 02/12/17 09:03; Admin Dose 40 MG; Start 02/11/17 at 09:00 Lorazepam 1 mg 1 mg Q2 PRN IV AGITATION/ANXIETY Last administered on 02/11/17 14:31; Admin Dose 1 MG; Start 02/10/17 at 17:00 Multivitamins/ Thiamine HCl/ Folic Acid/Sodium Chloride (Mvi Adult/ Vitamin B1/ Folic Acid/NS) 1,011.2 ml @ 75 mls/hr DAILY IVPB Last administered on 09:03; Admin Dose 75 MLS/HR; Start 02/10/17 at 18:00 Lorazepam (Ativan) 1 mg Q1HWA PRN IM AGITATION/ANXIETY; Start 02/10/17 at 19:00 Chlordiazepoxide (Librium) 25 mg TID PO Last administered on 02/12/17 10:19; Admin Dose 25 MG; Start 02/10/17 at 21:00 Trimethobenzamide HCl (Tigan) 200 mg Q6H PRN IM NAUSEA AND/OR VOMITING; Start 02/10/17 at 19:30 Metoclopramide HCl (Reglan) 5 mg BID IV Last administered on 02/12/17 09:03; Admin Dose 5 MG; Start 02/11/17 at 11:00; Stop 02/12/17 at 23:55 DARIUSZ QUINTERO NP Feb 12, 2017 18:24
[2017-02-12] MEDS: LEVALBUTEROL (NEB) 0.63 MG/3 ML AMP HHN PRN (19:22)
[2017-02-12] MEDS ORDERED: FUROSEMIDE 20 MG INJ IV ONE (21:00)
--- NOTE | 2017-02-12 22:18 | RADRPT ---
PROCEDURE: XR Chest. CLINICAL INDICATION: Oxygen desaturation. TECHNIQUE: Single frontal view of the chest. COMPARISON: Today, about 6 hours ago. FINDINGS: Cardiomegaly. Bilateral pleural effusions are mild to moderate, left greater than right, with bilat eral dependent atelectasis versus airspace disease. No pneumothorax. The osseous structures and sof t tissues are unremarkable. IMPRESSION: No evidence for active cardiopulmonary disease. RPTAT: [facility] Physician [place] Date Time Electronically viewed and signed by Tamara Hernandes Physician on 02/12/2017 22:18 RS/
[2017-02-13] VITALS (79 sets, daily range): BP systolic 65–121; BP diastolic 43–97; PULSE 61–117; RESP 13–44
[2017-02-13] MEDS: PANTOPRAZOLE 40 MG INJ IV SCH (05:01)
[2017-02-13] MEDS: FUROSEMIDE 20 MG INJ IV SCH ×2 (05:02→05:04)
[2017-02-13] MEDS: MEROPENEM 500 MG/100 ML (PMX) 100 ML IVPB SCH ×3 (05:02→21:40)
[2017-02-13] MEDS ORDERED: SOD CHLORIDE 0.9% 500 ML IV ONE (05:30)
--- NOTE | 2017-02-13 06:28 | EN ---
Date/Time of Note Date/Time of Note DATE: 02/13/17 TIME: 06:26 ER Progress Note I was asked by the hospitalist Dr Patel to intubate the patient in ICU room 118 due to acute respiratory failure On arrival, he was having agonal breathing, respiratory therapist were at the bedside Endotracheal Intubation by me: Pre assessment performed. See preceding note for details. Pre-oxygenation performed with 100% oxygen RSI: Performed w/o complication or hypoxic events. Medications as ordered. Blade: Sidney Scope ET Tube: 7.5 cm Depth: 23 cm at the lip Intubation confirmed by colorimetric CO2, equal breath sounds, quiet over the stomach. I would not transfer the care back to the hospitalist Dr. Patel was at the bedside at 6 am CRISTINA COULTER MD Feb 13, 2017 06:28
[2017-02-13] MEDS ORDERED: NORepinephrine 8MG/250 ML (PMX 250 ML IV SCH ×2 (06:30→07:00)
--- NOTE | 2017-02-13 06:54 | EN ---
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 Started IVF and was quickly sent to ICU. While still in tele floor, his HR was noted to be in 50s. Soon after pt arrived to ICU, he became severely bradycardic with HR in 20s. He was given atropine with improvement of his HR. Pt was intubated, then became hypotensive with SBP in 50s. He was started on IVF bolus and currently SBP is 104 while on his 2nd bolus. A central line was just placed. CATIE ELENA MD Feb 13, 2017 06:54
[2017-02-13] MEDS ORDERED: DEXTROSE 5%-0.45% NACL 1,000 ML IV SCH (07:00)
--- NOTE | 2017-02-13 07:00 | RADRPT ---
PROCEDURE: XR Chest. CLINICAL INDICATION: POST INTUBATION TECHNIQUE: Portable single view of the chest COMPARISON: 02/12 FINDINGS: Endotracheal tube has been placed and appears in good position. Increased veiling density of both h emithoraces is likely due to layering pleural effusions. No pneumothorax is seen. IMPRESSION: New endotracheal tube in good position. RPTAT: [facility] Kavitha Ham Physician Date Time Electronically viewed and signed by Kavitha Ham Physician on 02/13/2017 07:00 QUINN/
[2017-02-13] MEDS: metroNIDAZOLE 500 MG/NS (PMX) 100 ML IVPB SCH ×3 (07:05→22:25)
[2017-02-13] MEDS: VANCOMYCIN 1 GM in NS 250 ML IVPB SCH ×2 (07:08→17:41)
--- NOTE | 2017-02-13 07:58 | RADRPT ---
PROCEDURE: XR Chest. CLINICAL INDICATION: Central line placement TECHNIQUE: Portable single view of the chest COMPARISON: 02/13 FINDINGS: Right internal jugular central venous line is seen with tip at the atriocaval junction. No pneumoth orax is seen. The exam is otherwise unchanged. Endotracheal tube remains in good position. IMPRESSION: New right internal jugular central venous line in good position without visible pneumothorax. RPTAT: [facility]BE Kavitha Ham Physician Date Time Electronically viewed and signed by Kavitha Ham Physician on 02/13/2017 07:57 LE/
--- NOTE | 2017-02-13 08:01 | EN ---
Date/Time of Note Date/Time of Note DATE: 02/13/17 TIME: 07:59 ER Progress Note I was called to the ICU for a 46-year-old male who was recently intubated and on pressors for hypotension with request for central line placement. According to nursing, the patient's family was unavailable to provide consent, but the patient meets criteria for emergent central line placement. Central Line Placement by me: Patient consented, sterilely draped, full prep, gown, glove, mask, time out performed. Anesthesia: None due to patient adequately sedated Location: Right internal jugular Device: Multiple lumen Technique: Seldinger technique. Secured with suture. Results: Venous return from all ports with easy saline flush. No complications. Guide wire retrieved and disposed of. No evidence of immediate complications ED Ultrasound: Central line placed by me using concurrent ultrasound guidance. Chest x-ray ordered and to be reviewed by radiology and/or primary physician. SAY JACKSON MD Feb 13, 2017 08:01
--- NOTE | 2017-02-13 08:06 | EN ---
Date/Time of Note Date/Time of Note DATE: 02/13/17 TIME: 08:04 ER Progress Note Addendum to central line procedure note: Limited history per nursing. The patient has been hypotensive and on pressors, experienced respiratory failure requiring intubation earlier this morning. Brief physical exam performed. Vital signs reviewed, blood pressure 90s over 50s. General: Unresponsive to noxious stimuli. Cor: Tachycardia, regular rhythm, no murmurs or gallops. Lungs: Clear to auscultation bilaterally. SAY JACKSON MD Feb 13, 2017 08:06
[2017-02-13 08:27] LABS: ADD SCAN DIFF NO
--- NOTE | 2017-02-13 08:36 | CONS ---
Date/Time of Note Date/Time of Note DATE: 02/13/17 TIME: 08:31 Assessment/Plan Assessment/Plan Additional Assessment/Plan Chest x-ray was reviewed from today which is showing bilateral hazy infiltrates involving lung farias bilaterally. Endotracheal tube is at an adequate level. Current ventilator settings; AC of 24, tidal volume 500, PEEP of 0, 50% FiO2. Assessment recommendations; 1. Patient initially admitted for diverticulitis status post laparoscopic sigmoid resection with colostomy. 2. Patient became hypotensive and bradycardic early this morning requiring brief CPR with intubation. 3. Status post recent thoracentesis. 4. Sepsis. 5. Likely development of large bilateral pleural effusions. Continue current treatment. Obtain CT scan of chest without contrast. Was a CT scan of chest is done I will review it and make further recommendations. 35 minutes of critical care time was spent evaluating the patient. Consultation Date/Type/Reason Admit Date/Time Feb 01, 2017 at 03:10 Initial Consult Date 02/02/17 Type of Consultation: Pulmonary/critical care Referring Provider: VINCE PADGETT 24 HR Interval Summary Free Text/Dictation Patient's condition is critical. Patient developed severe bradycardia early this morning then developed respiratory failure and had to be intubated. CPR was done lasting less than 4 minutes. By the time I saw him the patient is orally intubated, awake and alert. During resuscitation patient also received fluid bolus with interval improvement in blood pressure. General exam; young male, orally intubated, awake currently in no distress. Exam/Review of Systems Vital Signs Vitals Vital Signs Date Time Temp Pulse Resp B/P Pulse Ox O2 Delivery O2 Flow Rate FiO2 02/13/17 08:00 97.5 105 26 108/79 100 Mechanical Ventilator 02/13/17 06:05 100 02/13/17 04:30 15.0 Intake and Output 02/12/17 02/12/17 02/13/17 15:00 23:00 07:00 Intake Total 300 ml 900 ml 100 ml Output Total 900 ml 1100 ml Balance 300 ml 0 ml -1000 ml Exam HEENT exam is; supple neck, no JVD. No lymphadenopathy. Midline trachea. No thyromegaly. Patient has fair dentition. Pupils are small bilaterally. No neck masses. Chest examination; diminished breath sounds in lung bases bilaterally. Upper lobes are clear. S1-S2 audible, no murmurs. Regular rhythm. Abdomen examination; soft, there is a left lower quadrant colostomy in place. STEVE drain has been removed. Bowel sounds are sluggish. Extremity exam is; no peripheral edema. Pulses 1+ bilaterally. [employer] CRANBERRY examination; patient is awake, follow simple commands. Results Result Diagram: 02/12/17 0608 02/12/17 0608 Results 24 hrs Laboratory Tests Test 02/12/17 15:05 02/12/17 16:01 02/12/17 16:45 02/13/17 05:21 Body Fluid Type PLEURAL FLUID Body Fluid Volume 600.0 Body Fluid Color YELLOW Body Fluid Appearance SLIGHTLY HAZY Body Fluid WBC 531 Body Fluid RBC 1+ Body Fluid Neutrophils % 85 Body Fluid Lymphocytes (%) 5 Body Fluid Monocytes % 10 Body Fluid Other Cells (%) Body Fluid Glucose 83 Body Fluid Total Protein < 2.0 Body Fluid Lactate Dehydrogenase Body Fluid Amylase < 30 Blood Gas Specimen Source Blood arterial Arterial Blood Date Drawn 02/12/2017 4:14:26 PM Arterial Blood pH (Temp corrected) 7.366 Arterial Blood pCO2 (Temp correct) 37.6 Arterial Blood pO2 (Temp corrected) 75.8 L Arterial Blood HCO3 21.1 L Arterial Blood Base Excess -3.9 L Arterial Blood Oxygen Saturation 91.9 L Raffy Test ACCEPTAB Arterial Blood Gas Puncture Site Right Radial Arterial Blood Carboxyhemoglobin 0.3 Arterial Blood Methemoglobin 0.1 Blood Gas A-a O2 Differential 599.6 H Oxyhemoglobin Percent 91.5 L Total Hemoglobin 8.8 L Blood Gas Temperature 37.0 Blood Gas Modality MASK - NRB FiO2 100.0 Blood Gas Notified Whom LC Blood Gas Notified Time 02/12/2017 4:30:03 PM Lactic Acid Level 0.6 Troponin I < 0.012 Bedside Glucose 111 Medications Medications Current Medications Hydromorphone HCl (Dilaudid) 1 mg Q4H PRN IV pain Last administered on 17:29; Admin Dose 1 MG; Start 02/01/17 at 03:30 Pantoprazole (Protonix Iv) 40 mg DAILY@06 IV Last administered on 02/13/17 05: 01; Admin Dose 40 MG; Start 02/01/17 at 06:00 Acetaminophen/ Hydrocodone Bitart ([place] (5/325)) 1 tab Q4H PRN PO PAIN LEVEL 4 -7 Last administered on 02/09/17 18:48; Admin Dose 1 TAB; Start 02/01/17 at 20: 30 Acetaminophen/ Hydrocodone Bitart ([place] (5/325)) 2 tab Q4H PRN PO PAIN LEVEL 7 -10; Start 02/01/17 at 20:30 Hydromorphone HCl (Dilaudid) 0.5 mg Q2 PRN IV PAIN; Start 02/01/17 at 20:30 Hydromorphone HCl (Dilaudid) 1 mg Q2 PRN IV PAIN Last administered on 11:57; Admin Dose 1 MG; Start 02/01/17 at 20:30 Docusate Sodium (Colace) 100 mg BID PRN PO CONSTIPATION; Start 02/01/17 at 20: 30 Bisacodyl (Dulcolax Supp) 10 mg BID PRN [place] CONSTIPATION; Start 02/01/17 at 20: 30 Sodium Biphosphate/ Sodium Phosphate 133 ml 133 ml BID PRN [place] CONSTIPATION; Start 02/01/17 at 20:30 Metronidazole 100 ml @ 100 mls/hr Q8 IVPB Last administered on 02/13/17 07:05 ; Admin Dose 100 MLS/HR; Start 02/04/17 at 15:00 Vancomycin HCl 250 ml @ 125 mls/hr Q12H IVPB Last administered on 02/13/17 07 :08; Admin Dose 125 MLS/HR; Start 02/05/17 at 06:00 Meropenem (Merrem 500 Mg/ 100 ml (Pmx)) 100 ml @ 200 mls/hr Q8 IVPB Last administered on 02/13/17 05:02; Admin Dose 200 MLS/HR; Start 02/05/17 at 22:00 Acetaminophen (Tylenol Liquid) 650 mg Q4H PRN GTB PAIN AND OR ELEVATED TEMP Last administered on 02/06/17 05:06; Admin Dose 650 MG; Start 02/05/17 at 18:30 Salmeterol Xinafoate/ Fluticasone (Advair 250/50 Diskus) 1 inh BID INH Last administered on 02/12/17 09:03; Admin Dose 1 INH; Start 02/07/17 at 11:00 IV Flush (NS 10 ml) 10 ml PRN PRN IV IV PROTOCOL; Start 02/07/17 at 14:30 Diphenhydramine HCl 25 mg 25 mg Q6H PRN IV itching ; Start 02/07/17 at 20:00 Ondansetron HCl/ Sodium Chloride (Zofran Inj/NS) 54 ml @ 216 mls/hr Q6H PRN IV NAUSEA AND/OR VOMITING; Start 02/09/17 at 11:30 Prednisone (Prednisone) 40 mg DAILY PO Last administered on 02/12/17 09:03; Admin Dose 40 MG; Start 02/11/17 at 09:00 Lorazepam (Ativan) 1 mg Q2 PRN IV AGITATION/ANXIETY Last administered on 14:31; Admin Dose 1 MG; Start 02/10/17 at 17:00 Lorazepam (Ativan) 1 mg Q1HWA PRN IM AGITATION/ANXIETY; Start 02/10/17 at 19:00 Chlordiazepoxide (Librium) 25 mg TID PO Last administered on 02/12/17 10:19; Admin Dose 25 MG; Start 02/10/17 at 21:00 Trimethobenzamide HCl 200 mg 200 mg Q6H PRN IM NAUSEA AND/OR VOMITING; Start at 19:30 Norepinephrine 250 ml @ 1.875 mls/ hr TITRATE IV Last administered on 07:49; Admin Dose 1.875 MLS/HR; Start 02/13/17 at 06:30 Norepinephrine 250 ml @ 1.875 mls/ hr TITRATE IV ; Start 02/13/17 at 07:00; Stop 02/13/17 at 12:00 Dextrose/Sodium Chloride 1,000 ml @ 100 mls/hr Q10H IV Last administered on 07:24; Admin Dose 100 MLS/HR; Start 02/13/17 at 07:00 Norepinephrine/ Dextrose (Levophed/D5W) 500 ml @ 1.87 mls/hr TITRATE IV ; Start 02/13/17 at 12:00 RICHAR ADRIAN Feb 13, 2017 08:36
[2017-02-13 08:39] LABS: ABNORMAL IP MESSAGE 1; HEMATOCRIT 22.4 % (42.0-52.0); MEAN CORPUSCULAR HEMOGLOBIN 28.8 pg (29.0-33.0); MEAN CORPUSCULAR HGB CONC 29.9 g/dl (32.0-37.0); MEAN CORPUSCULAR VOLUME 96.1 fl (82.0-101.0); MEAN PLATELET VOLUME 11.7 fl (7.4-10.4); PLATELET COUNT 492 10^3/UL (140-415); RED BLOOD COUNT 2.33 10^6/ul (4.70-6.10); RED CELL DISTRIBUTION WIDTH 14.7 % (11.5-14.5)
[2017-02-13 08:45] LABS: HEMOGLOBIN 6.7 g/dl (14.0-18.0)
[2017-02-13 08:47] LABS: POTASSIUM 3.9 mmol/L (3.5-5.1)
[2017-02-13 08:49] LABS: ALBUMIN/GLOBULIN RATIO 0.71; BILIRUBIN,INDIRECT 0.1 mg/dl (0-1.1); BILIRUBIN,TOTAL 0.1 mg/dl (0.2-1.3); CREATININE 0.8 mg/dl (0.61-1.24); TOTAL PROTEIN 4.8 g/dl (6.1-8.1)
[2017-02-13 08:50] LABS: CALCIUM 7.4 mg/dl (8.4-10.2); MAGNESIUM 1.9 mg/dl (1.7-2.5)
[2017-02-13] MEDS: SALMETEROL/FLUTICASONE 250/50 INHA INH SCH ×2 (09:00→21:00)
[2017-02-13] MEDS: CHLORDIAZEPOXIDE 25 MG CAP PO SCH (09:00)
--- NOTE | 2017-02-13 09:10 | PN ---
Date/Time of Note Date/Time of Note DATE: 02/13/17 TIME: 09:03 Assessment/Plan VTE Prophylaxis VTE Prophylaxis Intervention: SCD's Lines/Catheters [facility] Central Line Central line still needed: Yes Urinary Cath still in place: Yes Reason Cath still needed: urinary retention Assessment/Plan Chief Complaint/Hosp Course Assessment/Plan: 46M with: 1. Perforated sigmoid colon 2/2 Severe Crohn's colitis - S/p Urgent Open Cronin's procedure with end colostomy, liver biopsy and abdominal lavage POD # 12. Pt now intubated. R/O worsening sepsis vs reglan withdrawal (he had received 38 doses of this prior to yesterday, then it was tapered off 2 days ago) vs EtOH withdrawal (has prior Hx of EtOH use before admission, per family) vs res distress sec to pleural effusions. - f/u surgery rec's, per their rec's and CT results - planning for aspirating the RUQ and LLQ fluid pockets with plans to put in drains if purulent - will attempt again today, possible second thoracentesis today as well. - have tapered of reglan now - continue ativan, librium low dose prn, bananna bag 2. Acute Resp failure / ?ARDS, Vent dependent - Continue vent mgt / abx , f/u pulm rec's - PO steroids 3. Chronic Crohn's disease with acute colitis and diarrhea: improved - Cultures growing ecoli / proteus / enterococcus - continue current abx 4. Persistent hypocalcemia and hypokalemia - replete as needed 5. Thrombocytopenia: ?HIT - plt nL now, monitor 6. SIRS with lactic acidosis 2/2 severe colitis - abx, f/u surgery and ID rec' s 7. Systemic shock likely hypovolemic from third spacing with hypoalbuminemia : improved, now off pressors 8. Hx of heavy alcohol and tobacco use just until admission - peer counselor on cessation, see # 1 as well for possible withdrawal tx. 9. Probable underlying COPD and Cirrhosis based on hx which explains hypoalbuminemia - monitor 10. Anemia - transfuse per surgery rec's - will get one unit today pRBC. Critical care time = 45 min. Problems: Subjective 24 Hr Interval Summary Free Text/Dictation Pt sent to ICU this AM after res distress, was able before that yesterday to get thoracentesis x 1 yesterday but abd drains not able to placed yesterday - now intubated. Awake however, opens eyes. Exam/Review of Systems Vital Signs Vitals Vital Signs Date Time Temp Pulse Resp B/P Pulse Ox O2 Delivery O2 Flow Rate FiO2 02/13/17 08:00 97.5 105 26 108/79 100 Mechanical Ventilator 02/13/17 06:05 100 02/13/17 04:30 15.0 Intake and Output 02/12/17 02/12/17 02/13/17 15:00 23:00 07:00 Intake Total 300 ml 900 ml 100 ml Output Total 900 ml 1100 ml Balance 300 ml 0 ml -1000 ml Exam Constitutional: intubated, opens eyes Head: atraumatic, normocephalic Eyes: PERRL Respiratory: slightly diminished breath sounds B/L Cardiovascular: tachycardic with regular rhythm Gastrointestinal: Soft, Right sided colostomy with brownish/greenish stool. surgical site covered Extremities: normal pulses, generalized edema on abd as well Results Result Diagram: 02/13/17 0807 02/13/17 0807 Results 24 hrs Laboratory Tests Test 02/12/17 15:05 02/12/17 16:01 02/12/17 16:45 02/13/17 05:21 Body Fluid Type PLEURAL FLUID Body Fluid Volume 600.0 Body Fluid Color YELLOW Body Fluid Appearance SLIGHTLY HAZY Body Fluid WBC 531 Body Fluid RBC 1+ Body Fluid Neutrophils % 85 Body Fluid Lymphocytes (%) 5 Body Fluid Monocytes % 10 Body Fluid Other Cells (%) Body Fluid Glucose 83 Body Fluid Total Protein < 2.0 Body Fluid Lactate Dehydrogenase Body Fluid Amylase < 30 Blood Gas Specimen Source Blood arterial Arterial Blood Date Drawn 02/12/2017 4:14:26 PM Arterial Blood pH (Temp corrected) 7.366 Arterial Blood pCO2 (Temp correct) 37.6 Arterial Blood pO2 (Temp corrected) 75.8 L Arterial Blood HCO3 21.1 L Arterial Blood Base Excess -3.9 L Arterial Blood Oxygen Saturation 91.9 L Raffy Test ACCEPTAB Arterial Blood Gas Puncture Site Right Radial Arterial Blood Carboxyhemoglobin 0.3 Arterial Blood Methemoglobin 0.1 Blood Gas A-a O2 Differential 599.6 H Oxyhemoglobin Percent 91.5 L Total Hemoglobin 8.8 L Blood Gas Temperature 37.0 Blood Gas Modality MASK - NRB FiO2 100.0 Blood Gas Notified Whom LC Blood Gas Notified Time 02/12/2017 4:30:03 PM Lactic Acid Level 0.6 Troponin I < 0.012 Bedside Glucose 111 Test 02/13/17 08:07 White Blood Count 19.0 H Red Blood Count 2.33 L Hemoglobin 6.7 *L Hematocrit 22.4 L Mean Corpuscular Volume 96.1 Mean Corpuscular Hemoglobin 28.8 L Mean Corpuscular Hemoglobin Concent 29.9 L Red Cell Distribution Width 14.7 H Platelet Count 492 H Mean Platelet Volume 11.7 H Neutrophils % Eosinophils % Neutrophils # Eosinophils # Sodium Level 147 H Potassium Level 3.9 Chloride Level 113 H Carbon Dioxide Level 23 Anion Gap 15 Blood Urea Nitrogen 22 H Creatinine 0.80 Glucose Level 117 Calcium Level 7.4 L Magnesium Level 1.9 Total Bilirubin 0.1 L Direct Bilirubin 0.00 Indirect Bilirubin 0.1 Aspartate Amino Transf (AST/SGOT) 24 Alanine Aminotransferase (ALT/SGPT) 24 Alkaline Phosphatase 87 B-Type Natriuretic Peptide Pending Total Protein 4.8 L Albumin 2.0 L Globulin 2.80 Albumin/Globulin Ratio 0.71 Medications Medications Current Medications Hydromorphone HCl (Dilaudid) 1 mg Q4H PRN IV pain Last administered on 17:29; Admin Dose 1 MG; Start 02/01/17 at 03:30 Pantoprazole (Protonix Iv) 40 mg DAILY@06 IV Last administered on 02/13/17 05: 01; Admin Dose 40 MG; Start 02/01/17 at 06:00 Acetaminophen/ Hydrocodone Bitart ([place] (5/325)) 1 tab Q4H PRN PO PAIN LEVEL 4 -7 Last administered on 02/09/17 18:48; Admin Dose 1 TAB; Start 02/01/17 at 20: 30 Acetaminophen/ Hydrocodone Bitart ([place] (5/325)) 2 tab Q4H PRN PO PAIN LEVEL 7 -10; Start 02/01/17 at 20:30 Hydromorphone HCl (Dilaudid) 0.5 mg Q2 PRN IV PAIN; Start 02/01/17 at 20:30 Hydromorphone HCl (Dilaudid) 1 mg Q2 PRN IV PAIN Last administered on 11:57; Admin Dose 1 MG; Start 02/01/17 at 20:30 Docusate Sodium (Colace) 100 mg BID PRN PO CONSTIPATION; Start 02/01/17 at 20: 30 Bisacodyl (Dulcolax Supp) 10 mg BID PRN [place] CONSTIPATION; Start 02/01/17 at 20: 30 Sodium Biphosphate/ Sodium Phosphate 133 ml 133 ml BID PRN [place] CONSTIPATION; Start 02/01/17 at 20:30 Metronidazole 100 ml @ 100 mls/hr Q8 IVPB Last administered on 02/13/17 07:05 ; Admin Dose 100 MLS/HR; Start 02/04/17 at 15:00 Vancomycin HCl 250 ml @ 125 mls/hr Q12H IVPB Last administered on 02/13/17 07 :08; Admin Dose 125 MLS/HR; Start 02/05/17 at 06:00 Meropenem (Merrem 500 Mg/ 100 ml (Pmx)) 100 ml @ 200 mls/hr Q8 IVPB Last administered on 02/13/17 05:02; Admin Dose 200 MLS/HR; Start 02/05/17 at 22:00 Acetaminophen (Tylenol Liquid) 650 mg Q4H PRN GTB PAIN AND OR ELEVATED TEMP Last administered on 02/06/17 05:06; Admin Dose 650 MG; Start 02/05/17 at 18:30 Salmeterol Xinafoate/ Fluticasone (Advair 250/50 Diskus) 1 inh BID INH Last administered on 02/12/17 09:03; Admin Dose 1 INH; Start 02/07/17 at 11:00 IV Flush (NS 10 ml) 10 ml PRN PRN IV IV PROTOCOL; Start 02/07/17 at 14:30 Diphenhydramine HCl 25 mg 25 mg Q6H PRN IV itching ; Start 02/07/17 at 20:00 Ondansetron HCl/ Sodium Chloride (Zofran Inj/NS) 54 ml @ 216 mls/hr Q6H PRN IV NAUSEA AND/OR VOMITING; Start 02/09/17 at 11:30 Prednisone (Prednisone) 40 mg DAILY PO Last administered on 02/12/17 09:03; Admin Dose 40 MG; Start 02/11/17 at 09:00 Lorazepam (Ativan) 1 mg Q2 PRN IV AGITATION/ANXIETY Last administered on 14:31; Admin Dose 1 MG; Start 02/10/17 at 17:00 Lorazepam (Ativan) 1 mg Q1HWA PRN IM AGITATION/ANXIETY; Start 02/10/17 at 19:00 Chlordiazepoxide (Librium) 25 mg TID PO Last administered on 02/12/17 10:19; Admin Dose 25 MG; Start 02/10/17 at 21:00 Trimethobenzamide HCl 200 mg 200 mg Q6H PRN IM NAUSEA AND/OR VOMITING; Start at 19:30 Norepinephrine 250 ml @ 1.875 mls/ hr TITRATE IV Last administered on 07:49; Admin Dose 1.875 MLS/HR; Start 02/13/17 at 06:30 Norepinephrine 250 ml @ 1.875 mls/ hr TITRATE IV ; Start 02/13/17 at 07:00; Stop 02/13/17 at 12:00 Dextrose/Sodium Chloride 1,000 ml @ 100 mls/hr Q10H IV Last administered on 07:24; Admin Dose 100 MLS/HR; Start 02/13/17 at 07:00 Norepinephrine/ Dextrose (Levophed/D5W) 500 ml @ 1.87 mls/hr TITRATE IV ; Start 02/13/17 at 12:00 SUSAN SANCHEZ Feb 13, 2017 09:10
--- NOTE | 2017-02-13 09:25 | CONS ---
Date/Time of Note Date/Time of Note DATE: 02/13/17 TIME: 09:22 Assessment/Plan Assessment/Plan Additional Assessment/Plan Perforated sigmoid colon * Laparoscopic exploration,open sigmoid colectomy with Deena end colostomy with liver biopsy segment V h/o Crohn's disease Thrombocytopenia Liver Cirrhosis Plan: * continue present management * will reevaluate for Crohn disease once recovered from surgery * Further recommendations depend on clinical course * Pt seen in collaboration with Dr. Jacskon Consultation Date/Type/Reason Admit Date/Time Feb 01, 2017 at 03:10 Initial Consult Date 02/02/17 Type of Consultation: GI Referring Provider: VINCE PADGETT 24 HR Interval Summary Free Text/Dictation Hgb 6.7, one unit of PRBC ordered Pt intubated and in NAD Thoracentesis planned today Exam/Review of Systems Vital Signs Vitals Vital Signs Date Time Temp Pulse Resp B/P Pulse Ox O2 Delivery O2 Flow Rate FiO2 02/13/17 09:00 97 20 107/71 100 Mechanical Ventilator 02/13/17 08:00 97.5 02/13/17 06:05 100 02/13/17 04:30 15.0 Intake and Output 02/12/17 02/12/17 02/13/17 15:00 23:00 07:00 Intake Total 300 ml 900 ml 100 ml Output Total 900 ml 1100 ml Balance 300 ml 0 ml -1000 ml Exam Constitutional: frail Eyes: PERRL, nl sclera Neck: non-tender, supple Respiratory: intubated Cardiovascular: nl pulses, regular rate and rhythm Gastrointestinal: bowel sounds, distended, non-tender, other (colostomy ), soft Musculoskeletal: nl extremities to inspection Extremities: normal pulses Skin: rash or lesions Results Result Diagram: 02/13/17 0807 02/13/17 0807 Results 24 hrs Laboratory Tests Test 02/12/17 15:05 02/12/17 16:01 02/12/17 16:45 02/13/17 05:21 Body Fluid Type PLEURAL FLUID Body Fluid Volume 600.0 Body Fluid Color YELLOW Body Fluid Appearance SLIGHTLY HAZY Body Fluid WBC 531 Body Fluid RBC 1+ Body Fluid Neutrophils % 85 Body Fluid Lymphocytes (%) 5 Body Fluid Monocytes % 10 Body Fluid Other Cells (%) Body Fluid Glucose 83 Body Fluid Total Protein < 2.0 Body Fluid Lactate Dehydrogenase Body Fluid Amylase < 30 Blood Gas Specimen Source Blood arterial Arterial Blood Date Drawn 02/12/2017 4:14:26 PM Arterial Blood pH (Temp corrected) 7.366 Arterial Blood pCO2 (Temp correct) 37.6 Arterial Blood pO2 (Temp corrected) 75.8 L Arterial Blood HCO3 21.1 L Arterial Blood Base Excess -3.9 L Arterial Blood Oxygen Saturation 91.9 L Raffy Test ACCEPTAB Arterial Blood Gas Puncture Site Right Radial Arterial Blood Carboxyhemoglobin 0.3 Arterial Blood Methemoglobin 0.1 Blood Gas A-a O2 Differential 599.6 H Oxyhemoglobin Percent 91.5 L Total Hemoglobin 8.8 L Blood Gas Temperature 37.0 Blood Gas Modality MASK - NRB FiO2 100.0 Blood Gas Notified Whom LC Blood Gas Notified Time 02/12/2017 4:30:03 PM Lactic Acid Level 0.6 Troponin I < 0.012 Bedside Glucose 111 Test 02/13/17 08:07 White Blood Count 19.0 H Red Blood Count 2.33 L Hemoglobin 6.7 *L Hematocrit 22.4 L Mean Corpuscular Volume 96.1 Mean Corpuscular Hemoglobin 28.8 L Mean Corpuscular Hemoglobin Concent 29.9 L Red Cell Distribution Width 14.7 H Platelet Count 492 H Mean Platelet Volume 11.7 H Neutrophils % Eosinophils % Neutrophils # Eosinophils # Sodium Level 147 H Potassium Level 3.9 Chloride Level 113 H Carbon Dioxide Level 23 Anion Gap 15 Blood Urea Nitrogen 22 H Creatinine 0.80 Glucose Level 117 Calcium Level 7.4 L Magnesium Level 1.9 Total Bilirubin 0.1 L Direct Bilirubin 0.00 Indirect Bilirubin 0.1 Aspartate Amino Transf (AST/SGOT) 24 Alanine Aminotransferase (ALT/SGPT) 24 Alkaline Phosphatase 87 B-Type Natriuretic Peptide 1150 H Total Protein 4.8 L Albumin 2.0 L Globulin 2.80 Albumin/Globulin Ratio 0.71 Medications Medications Current Medications Hydromorphone HCl (Dilaudid) 1 mg Q4H PRN IV pain Last administered on 17:29; Admin Dose 1 MG; Start 02/01/17 at 03:30 Pantoprazole (Protonix Iv) 40 mg DAILY@06 IV Last administered on 02/13/17 05: 01; Admin Dose 40 MG; Start 02/01/17 at 06:00 Acetaminophen/ Hydrocodone Bitart ([place] (5/325)) 1 tab Q4H PRN PO PAIN LEVEL 4 -7 Last administered on 02/09/17 18:48; Admin Dose 1 TAB; Start 02/01/17 at 20: 30 Acetaminophen/ Hydrocodone Bitart ([place] (5/325)) 2 tab Q4H PRN PO PAIN LEVEL 7 -10; Start 02/01/17 at 20:30 Hydromorphone HCl (Dilaudid) 0.5 mg Q2 PRN IV PAIN; Start 02/01/17 at 20:30 Hydromorphone HCl (Dilaudid) 1 mg Q2 PRN IV PAIN Last administered on 11:57; Admin Dose 1 MG; Start 02/01/17 at 20:30 Docusate Sodium (Colace) 100 mg BID PRN PO CONSTIPATION; Start 02/01/17 at 20: 30 Bisacodyl (Dulcolax Supp) 10 mg BID PRN [place] CONSTIPATION; Start 02/01/17 at 20: 30 Sodium Biphosphate/ Sodium Phosphate 133 ml 133 ml BID PRN [place] CONSTIPATION; Start 02/01/17 at 20:30 Metronidazole 100 ml @ 100 mls/hr Q8 IVPB Last administered on 02/13/17 07:05 ; Admin Dose 100 MLS/HR; Start 02/04/17 at 15:00 Vancomycin HCl 250 ml @ 125 mls/hr Q12H IVPB Last administered on 02/13/17 07 :08; Admin Dose 125 MLS/HR; Start 02/05/17 at 06:00 Meropenem (Merrem 500 Mg/ 100 ml (Pmx)) 100 ml @ 200 mls/hr Q8 IVPB Last administered on 02/13/17 05:02; Admin Dose 200 MLS/HR; Start 02/05/17 at 22:00 Acetaminophen (Tylenol Liquid) 650 mg Q4H PRN GTB PAIN AND OR ELEVATED TEMP Last administered on 02/06/17 05:06; Admin Dose 650 MG; Start 02/05/17 at 18:30 Salmeterol Xinafoate/ Fluticasone (Advair 250/50 Diskus) 1 inh BID INH Last administered on 02/12/17 09:03; Admin Dose 1 INH; Start 02/07/17 at 11:00 IV Flush (NS 10 ml) 10 ml PRN PRN IV IV PROTOCOL; Start 02/07/17 at 14:30 Diphenhydramine HCl 25 mg 25 mg Q6H PRN IV itching ; Start 02/07/17 at 20:00 Ondansetron HCl/ Sodium Chloride (Zofran Inj/NS) 54 ml @ 216 mls/hr Q6H PRN IV NAUSEA AND/OR VOMITING; Start 02/09/17 at 11:30 Prednisone (Prednisone) 40 mg DAILY PO Last administered on 02/12/17 09:03; Admin Dose 40 MG; Start 02/11/17 at 09:00 Lorazepam (Ativan) 1 mg Q2 PRN IV AGITATION/ANXIETY Last administered on 14:31; Admin Dose 1 MG; Start 02/10/17 at 17:00 Lorazepam (Ativan) 1 mg Q1HWA PRN IM AGITATION/ANXIETY; Start 02/10/17 at 19:00 Chlordiazepoxide (Librium) 25 mg TID PO Last administered on 02/12/17 10:19; Admin Dose 25 MG; Start 02/10/17 at 21:00 Trimethobenzamide HCl 200 mg 200 mg Q6H PRN IM NAUSEA AND/OR VOMITING; Start at 19:30 Norepinephrine 250 ml @ 1.875 mls/ hr TITRATE IV Last administered on 07:49; Admin Dose 1.875 MLS/HR; Start 02/13/17 at 06:30 Norepinephrine 250 ml @ 1.875 mls/ hr TITRATE IV ; Start 02/13/17 at 07:00; Stop 02/13/17 at 12:00 Norepinephrine 16 mg/Dextrose 500 ml @ 1.87 mls/hr TITRATE IV ; Start 02/13/17 at 12:00 Dextrose (D5W) 1,000 ml @ 75 mls/hr [id number] IV ; Start 02/13/17 at 09:30; Stop 02/13/17 at 15:00 TONY MCCRAY Feb 13, 2017 09:25
[2017-02-13] MEDS ORDERED: DEXTROSE 5% 1,000 ML IV SCH (09:30)
[2017-02-13] MEDS ORDERED: PROPOFOL 100 ML ONE (09:39)
[2017-02-13] MEDS: PROPOFOL 100 ML IV SCH ×3 (09:45→21:07)
[2017-02-13 11:17] LABS: LYMPHOCYTES # 0.6 10^3/ul (0.8-2.9); MONOCYTE # 0.6 10^3/ul (0.3-0.9)
[2017-02-13 11:18] LABS: PLATELET ESTIMATE PLT APPEAR ADEQUATE
[2017-02-13 11:29] LABS: AADO2 Arterial 535.6 mmHg (7.0-24.0); Arterial Base Excess -5.5 mmol/L (-3.0-3); Arterial COHb 0.3 % (0.0-3.0); Arterial Fraction of Oxyhgb 96.4 % (93.0-99.0); Arterial MetHb 0.2 % (0.0-1.5); Arterial Total Hemglobin 8.9 g/dl (12.0-18.0); MODE VENT - AC
[2017-02-13 13:18] LABS: ADD UMIC YES; URINE BILIRUBIN (Dip) NEGATIVE (NEGATIVE); URINE BLOOD (Dip) TRACE (NEGATIVE); URINE COLOR YELLOW (YELLOW); URINE GLUCOSE (Dip) NEGATIVE (NEGATIVE); URINE KETONES (Dip) NEGATIVE (NEGATIVE); URINE LEUKOCYTE ESTERASE (Dip) NEGATIVE (NEGATIVE); URINE NITRITE (Dip) NEGATIVE (NEGATIVE); URINE TOTAL PROTEIN (Dip) NEGATIVE (NEGATIVE); URINE UROBILINOGEN (Dip) 0.2 E.U./dL (0.1-1.0)
[2017-02-13 13:44] LABS: MUCUS,URINE OCCASIONAL; URINE RBCS 0-2 /HPF (0)
--- NOTE | 2017-02-13 13:58 | PN ---
Date/Time of Note Date/Time of Note DATE: 02/13/17 TIME: 13:48 Assessment/Plan Lines/Catheters IV Catheter Type (from Nrsg): Central Line Zeng in Place (from Nrsg): Yes Assessment/Plan Assessment/Plan [facility] Progress Note Date of Service: 02/13/17 Today's Impression & Plan: Overall deteriorated with RELIEF MAN called early this am with a few minutes coding, requiring intubation and transfer to ICU. Fortunately, mentally appears to be intact and not on pressors. Lactic acid and CO2 normal with benign appearing abd and viable ostomy. Not certain that the fluid collections in the abd are not infected, and for this reason still have plans of interrogating those through IR. Wound appears to have possibly dehisced, but no evisceration at the moment and no issues with sig fluid loss. Will need surgical repair, but will wait 24-48 hrs prior to taking to OR to assess stability. Due to infectious concerns, will likely need to do temporary closure (+/- biologics) to gain control over the situation. Equal concern are the lungs. Awaiting further clarification of the pulmonary system. Remains high risk for complication given perforated colon in the setting of uncontrolled Crohn's. Recovery will take extra time with likely need for rehab. D/w team. With above assessment, I've recommended the following for today: 1. Cont current cares in ICU 2. F/u on C-diff 3. Start TPN given length of time and likelihood of not being able to take enough calories in 4. Treat ETOH withdrawal 5. Cont gentle diuresis to BMP < 200 6. Social work and case management to please start working on possible rehab vs. home health nurse set up 7. Increase activity 8. Increase ICS 9. Cont broad spec antimicrobials 10. F/u on repeat cultures from today 11. Cont current wound care for now; will tentatively put on the schedule for Wednesday for exploration and fascia closure 12. CT-guided drainage of abscess LLQ and RUQ as above 13. Labs in am Thank you again for your great care of this very pleasant patient and wonderful family. If there are any questions, please feel free to call me at [phone]. TOTAL VISIT TIME: 20 minutes of which more than half was spent in [id number] discussion with the patient, possibly including family, as well as coordination of care between multiple physicians and providers. Disclaimer: Inadvertent spelling or grammatical errors are likely due to EHR/ dictation software use and do not reflect on the overall quality of patient care. Updated Clinical Summary: a very pleasant 46-year-old gentleman with history of Crohn's disease as well as prior surgery for anal fistula approximately 5 years ago, and a torn meniscus repair on the left knee, presenting with abdominal pain associated with a few weeks' duration of diarrhea. S/p an otherwise uncomplicated diagnostic laparoscopy was converted first to hand assist and then to open exploration when perforated sigmoid colon was found and it was resected with a Deena type procedure and end colostomy as well as core needle liver biopsy, segment 5, due to presence of fatty liver disease, lysis of adhesions, and abdominal lavage on 02/01/17. Failed to wean off the vent through 02/06/17. PE was evaluated 02/07/[address] angio and no evidence found. CT abd/pelvis also did not show actionable findings (no abscess; bowel thickening somewhat expected). Extubated 02/07/17. RELIEF MAN called early am 02/13/17 with a few minutes coding, requiring intubation and transfer to ICU. Fortunately, mentally appears to be intact and not on pressors. Lactic acid and CO2 normal with benign appearing abd and viable ostomy. COMORBIDITIES: 1. Crohn disease with perforation of sigmoid colon and sepsis. S/p an otherwise uncomplicated diagnostic laparoscopy was converted first to hand assist and then to open exploration when perforated sigmoid colon was found and it was resected with a Deena type procedure and end colostomy as well as core needle liver biopsy, segment 5, due to presence of fatty liver disease, lysis of adhesions, and abdominal lavage on 02/01/17. Complicated by respiratory failure, return trip to ICU and fascia dehiscence. 2. Repair of a fistula approximately 5 years ago. 3. Torn meniscus on the left knee status post repair. Subjective: Major events overnigh; no major complaints; arousable but sedated; does not appear to report abd pain when asked Objective: Vitals: See below Exam: GENERAL: On exam, the patient was laying in bed and appeared to be comfortable and in no acute distress. Intubated. ABDOMEN: Soft, nontender and nondistended. Incision dressings are clean without any evidence of obvious erythema, edema, discharge, but with possible fascia dehiscence given appearance of the closure suture in the middle of what appears to be widened midline fascia; no bowel evisceration; no sig leakage of fluid. Surgery drain site clean. Ostomy pink and viable; some air and stool in the bag. There are no peritoneal signs or guarding. SKIN: Skin appears to be pink and feels warm to touch. NEUROLOGIC: Patient is sedated, but appears to wake up to voice and does not follow commands appropriately. Exam/Review of Systems Vital Signs Vitals Vital Signs Date Time Temp Pulse Resp B/P Pulse Ox O2 Delivery O2 Flow Rate FiO2 02/13/17 12:00 82 02/13/17 10:30 26 99 02/13/17 10:00 100/63 Mechanical Ventilator 02/13/17 09:25 60 02/13/17 08:00 97.5 02/13/17 04:30 15.0 Intake and Output 02/12/17 02/12/17 02/13/17 15:00 23:00 07:00 Intake Total 300 ml 900 ml 100 ml Output Total 900 ml 1100 ml Balance 300 ml 0 ml -1000 ml Results Result Diagram: 02/13/17 0807 02/13/17 0807 TI HILTON M.D. Feb 13, 2017 13:58
[2017-02-13] MEDS: predniSONE 20 MG TAB PO SCH (14:05)
--- NOTE | 2017-02-13 17:13 | RADRPT ---
PROCEDURE: US guided left thoracentesis. CLINICAL INDICATION: Shortness of breath. Left pleural effusion. TECHNIQUE: Prior to the procedure, informed consent was obtained. The risks, benefits, and alternatives were e xplained to the patient or the patient's family, including but not limited to bleeding, infection, p ain, visceral or vascular damage, shock, pneumothorax, chest tube placement, air embolism, and . The patient or the patient's family understood the risks and the alternatives and wished to proce ed with the study. Informed written consent was obtained. A procedural pause was performed. The patient's name, date of , and procedure to be performed were verified. Ultrasound of the left hemithorax was performed in the axial and sagittal planes. A left pleural eff usion is noted. Utilizing ultrasound guidance, optimal location for entry to the pleural cavity was ascertained. The overlying skin was prepped and draped in the usual sterile fashion. Approximately 10 ml of 1% Xylocaine was injected locally for pain control. Using ultrasound guidance, a 5-[place] Yueh catheter was introduced into the left pleural space without difficulty. Fluid was aspirated. COMPARISON: None. FINDINGS: Initial ultrasound demonstrates fluid in the left pleural space. Approximately 0.500 liters of sero us fluid was aspirated and discarded. IMPRESSION: 1. Satisfactory ultrasound-guided left thoracentesis. RPTAT: QQ .Rogelio Vera MD, Date Time Electronically viewed and signed by .Rogelio Vera MD, on 02/13/2017 17:13 .R/
[2017-02-13] MEDS ORDERED: LIDOCAINE 1% (MPF) 5 ML VIAL ONE (17:33)
--- NOTE | 2017-02-13 18:12 | CONS ---
Date/Time of Note Date/Time of Note DATE: 02/13/17 TIME: 18:08 Assessment/Plan Assessment/Plan Chief Complaint/Hosp Course ID PROGRESS NOTE TOTAL ABX DAY #13 => Vanco IV, Merrem, Flagyl * S/P Zosyn 02/03 & 02/04 =>Zosyn was DC'd due to progressive thrombocytopenia -- PLTs improved * POD # 02/01/17 => s/p Laparoscopic exploration,open sigmoid colectomy with Deena end colostomy with liver biopsy segment V 24H INTERVAL SUMMARY * Recurrent acute hypoxic/hypercapnic respiratory failure, s/p THORA, with failure to improve, was re-intubated after successfully weaned off the Vent earlier this week and was stable for a couple of days up on tele -> progressive BLL effusions developed in addition to delirium, hypoxia. * Low grade temps, WBC remains elevated PHYSICAL EXAMINATION: GENERAL: VSS, restless, diaphoretic, less communicative today HEENT: Diaphoretic NECK: Supple, trach-> midline CHEST: Equal chest rise bilaterally,Mild tachypnea HEART: Pulse RRR ABDOMEN: STEVE present EXTREMITIES: Warm SKIN: Warm, dry ID ASSESSMENT: 46 yo M w/PMHx Crohn's disease admitted with: * POD # 02/01/17 => s/p Laparoscopic exploration,open sigmoid colectomy with Deena end colostomy with liver biopsy segment V 1. Sepsis, status post perforated viscus repair - SIRS continues w/ * WORSE 02/11/17 22,000 w/8% BANDEMIA + TMax 99.8 (+)Diaphoresis, tachypnea, increased delirium => Bilateral effusions * MICRO: Abdominal fluid culture growing Proteus mirabilis, E. coli, enterococcus species and strep * CT ABD 02/11: Small volume ascites w/enhancement suggestive of peritonitis 2. Acute recurrent respiratory failure=>Re-intubated * CT Chest 02/11: Moderate large layering bilateral pleural effusions with passive atelectasis within the lung bases. 4. Anemia with persistent thrombocytopenia, possibly secondary to sepsis and antibiotics.=> IMPROVED * Zosyn was changed to Levaquin. * rule out heparin-induced thrombocytopenia versus other etiologies, 6. Status post acute renal failure. 7. LIVER DX: Fatty liver w/necroinflammatory activity, no fibrosis, small iron deposit on stain 9. Hx of heavy alcohol and tobacco use just until admission - ?ETOH Withdrawal SXS? 9. Probable underlying COPD and Cirrhosis based on hx which explains hypoalbuminemia - monitor (-)MRSA Nares INVASIVES: * STEVE, PICC 02/07 ABX ALLERGIES: KNDA CURRENT ABX: TOTAL ABX DAY #13 => Vanco IV, Merrem, Flagyl S/P Zosyn ID RECOMMENDATIONS: 1. PLAN for IR aspirating the RUQ and LLQ fluid pockets with plans to put in drains if purulent. 2. Continue current ABX - repeat sputum cx in AM post intubation 3. Further recs pulmonary & surgery appreciated / . . . Problems: Consultation Date/Type/Reason Admit Date/Time Feb 01, 2017 at 03:10 Initial Consult Date 02/02/17 Type of Consultation: ID Referring Provider: VINCE PADGETT Exam/Review of Systems Vital Signs Vitals Vital Signs Date Time Temp Pulse Resp B/P Pulse Ox O2 Delivery O2 Flow Rate FiO2 02/13/17 17:49 91 28 99 50 02/13/17 17:15 112/72 Mechanical Ventilator 02/13/17 16:00 99.1 02/13/17 04:30 15.0 Intake and Output 02/12/17 02/12/17 02/13/17 15:00 23:00 07:00 Intake Total 300 ml 900 ml 100 ml Output Total 900 ml 1100 ml Balance 300 ml 0 ml -1000 ml Results Result Diagram: 02/13/17 0807 02/13/17 0807 Results 24 hrs Laboratory Tests Test 02/13/17 05:21 02/13/17 07:45 02/13/17 08:07 02/13/17 08:45 Bedside Glucose 111 Blood Gas Specimen Source Blood arterial Arterial Blood Date Drawn 02/13/2017 8:10:00 AM Arterial Blood pH (Temp corrected) 7.231 *L Arterial Blood pCO2 (Temp correct) 53.5 H Arterial Blood pO2 (Temp corrected) 123.9 H Arterial Blood HCO3 22.0 Arterial Blood Base Excess -5.5 L Arterial Blood Oxygen Saturation 96.9 Raffy Test N/A Arterial Blood Gas Puncture Site LB Arterial Blood Carboxyhemoglobin 0.3 Arterial Blood Methemoglobin 0.2 Blood Gas A-a O2 Differential 535.6 H Oxyhemoglobin Percent 96.4 Total Hemoglobin 8.9 L Blood Gas Temperature 37.0 Blood Gas Respiration Rate 18.0 Blood Gas Actual Respiration Rate 18 Blood Gas Modality VENT - AC FiO2 100.0 Blood Gas Tidal Volume 500.0 Blood Gas Low PEEP Setting 5.0 Blood Gas Critical Value Read Back E AMARA CHAPPELL Blood Gas Notified Whom CW Blood Gas Notified Time 02/13/2017 8:34:00 AM White Blood Count 19.0 H Red Blood Count 2.33 L Hemoglobin 6.7 *L Hematocrit 22.4 L Mean Corpuscular Volume 96.1 Mean Corpuscular Hemoglobin 28.8 L Mean Corpuscular Hemoglobin Concent 29.9 L Red Cell Distribution Width 14.7 H Platelet Count 492 H Mean Platelet Volume 11.7 H Neutrophils % 79.0 H Band Neutrophils % 15.0 H Lymphocytes % 3.0 L Monocytes % 3.0 Eosinophils % Neutrophils # 15.0 H Lymphocytes # 0.6 L Monocytes # 0.6 Eosinophils # Platelet Estimate PLT APPEAR ADEQUATE Sodium Level 147 H Potassium Level 3.9 Chloride Level 113 H Carbon Dioxide Level 23 Anion Gap 15 Blood Urea Nitrogen 22 H Creatinine 0.80 Glucose Level 117 Calcium Level 7.4 L Phosphorus Level 6.2 #H Magnesium Level 1.9 Total Bilirubin 0.1 L Direct Bilirubin 0.00 Indirect Bilirubin 0.1 Aspartate Amino Transf (AST/SGOT) 24 Alanine Aminotransferase (ALT/SGPT) 24 Alkaline Phosphatase 87 B-Type Natriuretic Peptide 1150 H Total Protein 4.8 L Albumin 2.0 L Globulin 2.80 Albumin/Globulin Ratio 0.71 Urine Color YELLOW Urine Clarity CLEAR Urine pH 5.0 Urine Specific [place] >=1.030 H Urine Ketones NEGATIVE Urine Nitrite NEGATIVE Urine Bilirubin NEGATIVE Urine Urobilinogen 0.2 E.U./dL Urine Leukocyte Esterase NEGATIVE Urine Microscopic RBC 0-2 Urine Microscopic WBC NONE SEEN Urine Amorphous Urates FEW Urine Mucus OCCASIONAL Urine Hemoglobin TRACE Urine Glucose NEGATIVE Urine Total Protein NEGATIVE Test 02/13/17 09:00 Stool Occult Blood NEGATIVE Lactic Acid Level 0.6 Medications Medications Current Medications Hydromorphone HCl (Dilaudid) 1 mg Q4H PRN IV pain Last administered on 17:29; Admin Dose 1 MG; Start 02/01/17 at 03:30 Pantoprazole (Protonix Iv) 40 mg DAILY@06 IV Last administered on 02/13/17 05: 01; Admin Dose 40 MG; Start 02/01/17 at 06:00 Acetaminophen/ Hydrocodone Bitart ([place] (5/325)) 1 tab Q4H PRN PO PAIN LEVEL 4 -7 Last administered on 02/09/17 18:48; Admin Dose 1 TAB; Start 02/01/17 at 20: 30 Acetaminophen/ Hydrocodone Bitart ([place] (5/325)) 2 tab Q4H PRN PO PAIN LEVEL 7 -10; Start 02/01/17 at 20:30 Hydromorphone HCl (Dilaudid) 0.5 mg Q2 PRN IV PAIN; Start 02/01/17 at 20:30 Hydromorphone HCl (Dilaudid) 1 mg Q2 PRN IV PAIN Last administered on 11:57; Admin Dose 1 MG; Start 02/01/17 at 20:30 Docusate Sodium (Colace) 100 mg BID PRN PO CONSTIPATION; Start 02/01/17 at 20: 30 Bisacodyl (Dulcolax Supp) 10 mg BID PRN [place] CONSTIPATION; Start 02/01/17 at 20: 30 Sodium Biphosphate/ Sodium Phosphate 133 ml 133 ml BID PRN [place] CONSTIPATION; Start 02/01/17 at 20:30 Metronidazole 100 ml @ 100 mls/hr Q8 IVPB Last administered on 02/13/17 14:14 ; Admin Dose 100 MLS/HR; Start 02/04/17 at 15:00 Vancomycin HCl 250 ml @ 125 mls/hr Q12H IVPB Last administered on 02/13/17 17 :41; Admin Dose 125 MLS/HR; Start 02/05/17 at 06:00 Meropenem (Merrem 500 Mg/ 100 ml (Pmx)) 100 ml @ 200 mls/hr Q8 IVPB Last administered on 02/13/17 15:51; Admin Dose 200 MLS/HR; Start 02/05/17 at 22:00 Acetaminophen (Tylenol Liquid) 650 mg Q4H PRN GTB PAIN AND OR ELEVATED TEMP Last administered on 02/06/17 05:06; Admin Dose 650 MG; Start 02/05/17 at 18:30 Salmeterol Xinafoate/ Fluticasone (Advair 250/50 Diskus) 1 inh BID INH Last administered on 02/12/17 09:03; Admin Dose 1 INH; Start 02/07/17 at 11:00 IV Flush (NS 10 ml) 10 ml PRN PRN IV IV PROTOCOL; Start 02/07/17 at 14:30 Diphenhydramine HCl 25 mg 25 mg Q6H PRN IV itching ; Start 02/07/17 at 20:00 Ondansetron HCl/ Sodium Chloride (Zofran Inj/NS) 54 ml @ 216 mls/hr Q6H PRN IV NAUSEA AND/OR VOMITING; Start 02/09/17 at 11:30 Prednisone (Prednisone) 40 mg DAILY PO Last administered on 02/12/17 09:03; Admin Dose 40 MG; Start 02/11/17 at 09:00 Lorazepam (Ativan) 1 mg Q2 PRN IV AGITATION/ANXIETY Last administered on 14:31; Admin Dose 1 MG; Start 02/10/17 at 17:00 Lorazepam (Ativan) 1 mg Q1HWA PRN IM AGITATION/ANXIETY; Start 02/10/17 at 19:00 Trimethobenzamide HCl 200 mg 200 mg Q6H PRN IM NAUSEA AND/OR VOMITING; Start at 19:30 Norepinephrine 250 ml @ 1.875 mls/ hr TITRATE IV Last administered on 16:18; Admin Dose 7.5 MLS/HR; Start 02/13/17 at 07:00; Stop 02/13/17 at 18: 59 Norepinephrine 16 mg/Dextrose 500 ml @ 1.87 mls/hr TITRATE IV ; Start 02/13/17 at 12:00; Status Future hold Propofol (Diprivan) 100 ml @ 2.202 mls/ hr Q12H IV Last administered on 15:21; Admin Dose 17.616 MLS/HR; Start 02/13/17 at 10:00 Chlordiazepoxide (Librium) 10 mg TID PO ; Start 02/13/17 at 21:00 DARIUSZ QUINTERO NP Feb 13, 2017 18:12
[2017-02-13] MEDS: HYDROmorphONE 1 MG/ML SYG IV PRN (19:56)
--- NOTE | 2017-02-13 20:34 | RADRPT ---
PROCEDURE: XR Chest. CLINICAL INDICATION: Shortness of breath. TECHNIQUE: Single frontal view. COMPARISON: 02/13/2017. 0651 hours. FINDINGS: The right internal jugular vein catheter and endotracheal tube remain in satisfactory position. The re is bilateral pulmonary air space disease in the mid and lower lung zones consistent with atelecta sis or pneumonia. The heart size is normal. There is a moderate right pleural effusion, larger than seen previously. There is a small left pleu ral effusion. There is no pneumothorax. IMPRESSION: 1. Larger right pleural effusion. 2. No pneumothorax following left thoracentesis. 3. No other change from the prior study done earlier the same day. RPTAT: QQ .Rogelio Vera MD, MD Date Time Electronically viewed and signed by .Rogelio Vera MD, on 02/13/2017 20:34 .R/
[2017-02-13] MEDS ORDERED: CHLORDIAZEPOXIDE 5 MG CAP PO SCH (21:00)
--- NOTE | 2017-02-13 21:03 | RADRPT ---
PROCEDURE: CT Chest without contrast. CLINICAL INDICATION: Shortness of breath. TECHNIQUE: Helical axial sections were obtained through the chest without intravenous contrast enh ancement. Coronal and sagittal reformatted images were obtained from the axial source images. Total exam DLP is 652.01 mGy-cm. CTDIvol is 14.96 mGy. One or more of the following dose reduction jose luis hniques were used: Automated exposure control, adjustment of the mA and/or kV according to patient s ize, use of iterative reconstruction technique. COMPARISON: Chest radiograph done earlier the same day. CT scan of the chest dated 02/11/2017. FINDINGS: The endotracheal tube and right internal jugular vein catheter are in satisfactory position. There is atelectasis bilaterally in the lower lobes with left worse than right. Mild patchy bilateral pul monary air space disease is also present consistent with bilateral multifocal pneumonia. The lungs are otherwise clear. There is no pulmonary nodule or mass lesion. There is no mediastinal or hilar lymphadenopathy or mass. There is no axillary, supraclavicular, or internal mammary lymphadenopathy. The thoracic aorta is not dilated. The heart size is normal. There is a small right pleural effusion and moderate left pleural effusion. There is no pericardial effusion. Images through the upper abdomen demonstrate normal visualized portions of the liver, spleen, and ad renals. There is contrast persisting within the renal parenchyma bilaterally from prior contrast inj ection dated 02/11/2017, which may indicate acute kidney injury. The osseous structures are grossly normal. IMPRESSION: 1. Endotracheal tube and right IJ catheter in satisfactory position. 2. Atelectasis bilaterally with left worse than right. 3. Mild bilateral multifocal pneumonia. 4. Small right pleural effusion and moderate left pleural effusion. 5. Possible acute kidney injury with contrast remaining in the renal parenchyma, related to prior c ontrast injection dated 02/11/2017. 6. Otherwise unremarkable study. RPTAT: QQ .Rogelio Vera MD, MD Date Time Electronically viewed and signed by .Rogelio Vera MD, on 02/13/2017 21:03 .R/
--- NOTE | 2017-02-13 22:47 | RADRPT ---
PROCEDURE: XR Chest. CLINICAL INDICATION: Check nasogastric tube position. TECHNIQUE: Single frontal view. COMPARISON: 02/13/2017. 1718 hours. FINDINGS: The endotracheal tube and right internal jugular vein catheter remain in satisfactory position. The re is a new nasogastric tube with the tip in the stomach. Bilateral pulmonary air space disease in the mid and lower lung zones consistent with atelectasis or pneumonia is unchanged. The heart size is normal. There is a moderate right pleural effusion and small left pleural effusion, unchanged. There is no pneumothorax. IMPRESSION: 1. Nasogastric tube inserted with the tip in the stomach. 2. No other change from the prior study done earlier the same day. RPTAT: QQ .Rogelio Vera MD, MD Date Time Electronically viewed and signed by .Rogelio Vera MD, MD on 02/13/2017 22:46 .R/
[2017-02-14] VITALS (91 sets, daily range): BP systolic 84–136; BP diastolic 52–80; PULSE 79–116; RESP 17–36
[2017-02-14] MEDS: PROPOFOL 100 ML IV SCH ×5 (02:05→21:37)
[2017-02-14 05:46] LABS: ADD SCAN DIFF NO
[2017-02-14 06:00] LABS: ABNORMAL IP MESSAGE 1; HEMATOCRIT 24.9 % (42.0-52.0); HEMOGLOBIN 7.7 g/dl (14.0-18.0); MEAN CORPUSCULAR HEMOGLOBIN 28.3 pg (29.0-33.0); MEAN CORPUSCULAR HGB CONC 30.9 g/dl (32.0-37.0); MEAN CORPUSCULAR VOLUME 91.5 fl (82.0-101.0); MEAN PLATELET VOLUME 11.7 fl (7.4-10.4); PLATELET COUNT 425 10^3/UL (140-415); RED BLOOD COUNT 2.72 10^6/ul (4.70-6.10); WHITE BLOOD COUNT 17.1 10^3/ul (4.8-10.8)
[2017-02-14] MEDS: MEROPENEM 500 MG/100 ML (PMX) 100 ML IVPB SCH ×3 (06:02→21:38)
[2017-02-14] MEDS: VANCOMYCIN 1 GM in NS 250 ML IVPB SCH ×2 (06:08→17:55)
[2017-02-14] MEDS: metroNIDAZOLE 500 MG/NS (PMX) 100 ML IVPB SCH ×3 (06:08→21:38)
[2017-02-14] MEDS: PANTOPRAZOLE 40 MG INJ IV SCH (06:09)
[2017-02-14 06:20] LABS: CREATININE 0.75 mg/dl (0.61-1.24)
[2017-02-14 06:21] LABS: CALCIUM 7.3 mg/dl (8.4-10.2)
[2017-02-14 08:16] LABS: AADO2 Arterial 264.4 mmHg (7.0-24.0); Arterial COHb 0.3 % (0.0-3.0); Arterial Fraction of Oxyhgb 90.7 % (93.0-99.0); Arterial HCO3 19.8 mmol/L (22.0-26.0); Arterial MetHb 0.3 % (0.0-1.5); Arterial Total Hemglobin 9.2 g/dl (12.0-18.0); MODE VENT - AC
[2017-02-14] MEDS ORDERED: POTASSIUM CHLORIDE 250 ML IVPB ONE (09:00)
[2017-02-14] MEDS ORDERED: MAGNESIUM SULFATE 2 GM/50 ML 50 ML IVPB ONE (09:00)
[2017-02-14] MEDS: predniSONE 20 MG TAB PO SCH (09:00)
[2017-02-14] MEDS: SALMETEROL/FLUTICASONE 250/50 INHA INH SCH (09:00)
--- NOTE | 2017-02-14 09:23 | CONS ---
Date/Time of Note Date/Time of Note DATE: 02/14/17 TIME: 09:03 Assessment/Plan Assessment/Plan Additional Assessment/Plan Perforated sigmoid colon * Laparoscopic exploration,open sigmoid colectomy with Deena end colostomy with liver biopsy segment V h/o Crohn's disease Thrombocytopenia Liver Cirrhosis Anemia Plan: Continue present management Will reevaluate for Crohn disease once recovered from surgery Monitor hemoglobin every 8 hours, transfuse 1 unit for hemoglobin less than 7.5 and 2 units for hemoglobin less than 7.0 Further recommendations depend on clinical course Pt seen in collaboration with Dr. Jackson Consultation Date/Type/Reason Admit Date/Time Feb 01, 2017 at 03:10 Initial Consult Date 02/02/17 Type of Consultation: GI Referring Provider: VINCE PADGETT 24 HR Interval Summary Free Text/Dictation s/p thoracentesis Intubated and sedated Hgb stable status post 1 unit PRBC yesterday Exam/Review of Systems Vital Signs Vitals Vital Signs Date Time Temp Pulse Resp B/P Pulse Ox O2 Delivery O2 Flow Rate FiO2 02/14/17 08:15 98.9 100 27 101/63 95 Mechanical Ventilator 02/14/17 07:17 50 02/13/17 04:30 15.0 Intake and Output 02/13/17 02/13/17 02/14/17 15:00 23:00 07:00 Intake Total 857.2 ml 682.426 ml 352.1156 ml Output Total 455 ml 640 ml 560 ml Balance 402.2 ml 42.426 ml -207.8844 ml Exam Constitutional: frail Eyes: PERRL, nl sclera Neck: non-tender, supple Respiratory: intubated Cardiovascular: nl pulses, regular rate and rhythm Gastrointestinal: bowel sounds, distended, non-tender, other (colostomy ), soft Musculoskeletal: nl extremities to inspection Extremities: normal pulses Skin: rash or lesions Results Result Diagram: 02/14/17 0430 02/14/17 0430 Results 24 hrs Laboratory Tests Test 02/14/17 04:30 02/14/17 05:31 02/14/17 07:20 White Blood Count 17.1 H Red Blood Count 2.72 L Hemoglobin 7.7 L Hematocrit 24.9 L Mean Corpuscular Volume 91.5 Mean Corpuscular Hemoglobin 28.3 L Mean Corpuscular Hemoglobin Concent 30.9 L Red Cell Distribution Width 16.0 H Platelet Count 425 H Mean Platelet Volume 11.7 H Neutrophils % Eosinophils % Neutrophils # Eosinophils # Sodium Level 146 H Potassium Level 3.0 L Chloride Level 113 H Carbon Dioxide Level 24 Anion Gap 12 Blood Urea Nitrogen 20 Creatinine 0.75 Glucose Level 91 Calcium Level 7.3 L Lab Scanned Report BLOOD TRANSFUSION Blood Gas Specimen Source Blood arterial Arterial Blood Date Drawn 02/14/2017 7:50:55 AM Arterial Blood pH (Temp corrected) 7.476 H Arterial Blood pCO2 (Temp correct) 27.4 L Arterial Blood pO2 (Temp corrected) 61.3 L Arterial Blood HCO3 19.8 L Arterial Blood Base Excess -3.0 Arterial Blood Oxygen Saturation 91.2 L Raffy Test N/A Arterial Blood Gas Puncture Site Right Brachial Arterial Blood Carboxyhemoglobin 0.3 Arterial Blood Methemoglobin 0.3 Blood Gas A-a O2 Differential 264.4 H Oxyhemoglobin Percent 90.7 L Total Hemoglobin 9.2 L Blood Gas Temperature 37.0 Blood Gas Respiration Rate 18.0 Blood Gas Actual Respiration Rate 28 Blood Gas Modality VENT - AC FiO2 50.0 Blood Gas Tidal Volume 550.0 Blood Gas Low PEEP Setting 5.0 Blood Gas Notified Whom CW Blood Gas Notified Time 02/14/2017 8:15:59 AM Medications Medications Current Medications Hydromorphone HCl (Dilaudid) 1 mg Q4H PRN IV pain Last administered on 19:56; Admin Dose 1 MG; Start 02/01/17 at 03:30 Pantoprazole (Protonix Iv) 40 mg DAILY@06 IV Last administered on 02/14/17 06: 09; Admin Dose 40 MG; Start 02/01/17 at 06:00 Acetaminophen/ Hydrocodone Bitart ([place] (5/325)) 1 tab Q4H PRN PO PAIN LEVEL 4 -7 Last administered on 02/09/17 18:48; Admin Dose 1 TAB; Start 02/01/17 at 20: 30 Acetaminophen/ Hydrocodone Bitart ([place] (5/325)) 2 tab Q4H PRN PO PAIN LEVEL 7 -10; Start 02/01/17 at 20:30 Hydromorphone HCl (Dilaudid) 0.5 mg Q2 PRN IV PAIN; Start 02/01/17 at 20:30 Hydromorphone HCl (Dilaudid) 1 mg Q2 PRN IV PAIN Last administered on 11:57; Admin Dose 1 MG; Start 02/01/17 at 20:30 Docusate Sodium (Colace) 100 mg BID PRN PO CONSTIPATION; Start 02/01/17 at 20: 30 Bisacodyl (Dulcolax Supp) 10 mg BID PRN [place] CONSTIPATION; Start 02/01/17 at 20: 30 Sodium Biphosphate/ Sodium Phosphate 133 ml 133 ml BID PRN [place] CONSTIPATION; Start 02/01/17 at 20:30 Metronidazole 100 ml @ 100 mls/hr Q8 IVPB Last administered on 02/14/17 06:08 ; Admin Dose 100 MLS/HR; Start 02/04/17 at 15:00 Vancomycin HCl 250 ml @ 125 mls/hr Q12H IVPB Last administered on 02/14/17 06 :08; Admin Dose 125 MLS/HR; Start 02/05/17 at 06:00 Meropenem (Merrem 500 Mg/ 100 ml (Pmx)) 100 ml @ 200 mls/hr Q8 IVPB Last administered on 02/14/17 06:02; Admin Dose 200 MLS/HR; Start 02/05/17 at 22:00 Acetaminophen (Tylenol Liquid) 650 mg Q4H PRN GTB PAIN AND OR ELEVATED TEMP Last administered on 02/06/17 05:06; Admin Dose 650 MG; Start 02/05/17 at 18:30 Salmeterol Xinafoate/ Fluticasone (Advair 250/50 Diskus) 1 inh BID INH Last administered on 02/12/17 09:03; Admin Dose 1 INH; Start 02/07/17 at 11:00 IV Flush (NS 10 ml) 10 ml PRN PRN IV IV PROTOCOL; Start 02/07/17 at 14:30 Diphenhydramine HCl 25 mg 25 mg Q6H PRN IV itching ; Start 02/07/17 at 20:00 Ondansetron HCl/ Sodium Chloride (Zofran Inj/NS) 54 ml @ 216 mls/hr Q6H PRN IV NAUSEA AND/OR VOMITING; Start 02/09/17 at 11:30 Prednisone (Prednisone) 40 mg DAILY PO Last administered on 02/12/17 09:03; Admin Dose 40 MG; Start 02/11/17 at 09:00 Lorazepam (Ativan) 1 mg Q2 PRN IV AGITATION/ANXIETY Last administered on 14:31; Admin Dose 1 MG; Start 02/10/17 at 17:00 Lorazepam (Ativan) 1 mg Q1HWA PRN IM AGITATION/ANXIETY; Start 02/10/17 at 19:00 Trimethobenzamide HCl 200 mg 200 mg Q6H PRN IM NAUSEA AND/OR VOMITING; Start at 19:30 Norepinephrine 16 mg/Dextrose 500 ml @ 1.87 mls/hr TITRATE IV ; Start 02/13/17 at 12:00; Status Future hold Propofol 100 ml @ 2.202 mls/ hr Q12H IV Last administered on 02/14/17 08:00; Admin Dose 17.616 MLS/HR; Start 02/13/17 at 10:00 Magnesium Sulfate 50 ml @ 25 mls/hr ONCE ONCE IVPB ; Start 02/14/17 at 09:00; Stop 02/14/17 at 10:59 Potassium Chloride 250 ml @ 62.5 mls/hr ONCE ONCE IVPB ; Start 02/14/17 at 09: 00; Stop 02/14/17 at 12:59 Potassium Chloride 20 meq/ Sodium Chloride 110 ml @ 55 mls/hr ONCE ONCE IVPB ; Start 02/14/17 at 15:00; Stop 02/14/17 at 16:59 Total Parenteral Nutrition (Tpn) 1,000 ml @ 80 mls/hr [id number] IV ; Start at 09:00; Status TONY MORALES Feb 14, 2017 09:13
[2017-02-14] MEDS: HYDROmorphONE 1 MG/ML SYG IV PRN ×2 (09:34→16:14)
--- NOTE | 2017-02-14 11:28 | CONS ---
Date/Time of Note Date/Time of Note DATE: 02/14/17 TIME: 11:24 Assessment/Plan Assessment/Plan Additional Assessment/Plan CT chest was reviewed yesterday which is showing bilateral moderate pleural effusions with compressive atelectasis involving lower lobes bilaterally. Patient underwent left thoracentesis yesterday 400 mL of fluid was removed. Current ventilator settings; AC of 18, tidal volume 550, PEEP of 5, 50% FiO2. Patient on Levophed at 1.1 mics per minute, propofol 40 mics per kilogram per minute. TPN has been started. Assessment recommendations; 1. Patient admitted for acute abdomen discovered to have perforated diverticula , status post sigmoid resection with colostomy. 2. Respiratory failure by the patient was informed of the floor due to hypotension and bradycardia. Requiring intubation. 3. Bilateral moderate to large pleural effusion status post bilateral thoracentesis. Compressive atelectasis involving lower lobes bilaterally. 4. Persistent leukocytosis due to underlying sepsis. 5. Ileus. Continue current supportive care. Continue current antibiotics. Obtain follow- up chest x-ray in 24 hours. 35 minutes of critical care time was spent evaluating the patient. Consultation Date/Type/Reason Admit Date/Time Feb 01, 2017 at 03:10 Initial Consult Date 02/02/17 Type of Consultation: Pulmonary/critical care Referring Provider: VINCE PADGETT 24 HR Interval Summary Free Text/Dictation Patient condition remains critical. Still requiring full ventilator support. Currently on tapering dose of Levophed. General exam; young male, orally intubated, currently in no distress. Exam/Review of Systems Vital Signs Vitals Vital Signs Date Time Temp Pulse Resp B/P Pulse Ox O2 Delivery O2 Flow Rate FiO2 02/14/17 10:45 85 22 100/65 99 Mechanical Ventilator 02/14/17 09:10 50 02/14/17 08:15 98.9 02/13/17 04:30 15.0 Intake and Output 02/13/17 02/13/17 02/14/17 15:00 23:00 07:00 Intake Total 857.2 ml 682.426 ml 352.1156 ml Output Total 455 ml 640 ml 560 ml Balance 402.2 ml 42.426 ml -207.8844 ml Exam HEENT exam is; supple neck, no JVD. No lymphadenopathy. Midline trachea. No thyromegaly. Orally intubated. Pupils are small bilaterally. Patient has a multiple carious teeth. Chest examination; diminished breath on lung bases bilaterally. Upper lobes are clear. S1-S2 audible, no murmurs. Regular rhythm. Abdomen examination; soft, nondistended. No organomegaly. Bowel sounds are very sluggish. There is a left lower quadrant colostomy in place. Extremity examination; no peripheral edema. Pulses 1+ bilaterally. Next [employer] examination; patient is sedated. Results Result Diagram: 02/14/17 0430 02/14/17 0430 Results 24 hrs Laboratory Tests Test 02/14/17 04:30 02/14/17 05:31 02/14/17 07:20 White Blood Count 17.1 H Red Blood Count 2.72 L Hemoglobin 7.7 L Hematocrit 24.9 L Mean Corpuscular Volume 91.5 Mean Corpuscular Hemoglobin 28.3 L Mean Corpuscular Hemoglobin Concent 30.9 L Red Cell Distribution Width 16.0 H Platelet Count 425 H Mean Platelet Volume 11.7 H Neutrophils % Eosinophils % Neutrophils # Eosinophils # Sodium Level 146 H Potassium Level 3.0 L Chloride Level 113 H Carbon Dioxide Level 24 Anion Gap 12 Blood Urea Nitrogen 20 Creatinine 0.75 Glucose Level 91 Calcium Level 7.3 L Lab Scanned Report BLOOD TRANSFUSION Blood Gas Specimen Source Blood arterial Arterial Blood Date Drawn 02/14/2017 7:50:55 AM Arterial Blood pH (Temp corrected) 7.476 H Arterial Blood pCO2 (Temp correct) 27.4 L Arterial Blood pO2 (Temp corrected) 61.3 L Arterial Blood HCO3 19.8 L Arterial Blood Base Excess -3.0 Arterial Blood Oxygen Saturation 91.2 L Raffy Test N/A Arterial Blood Gas Puncture Site Right Brachial Arterial Blood Carboxyhemoglobin 0.3 Arterial Blood Methemoglobin 0.3 Blood Gas A-a O2 Differential 264.4 H Oxyhemoglobin Percent 90.7 L Total Hemoglobin 9.2 L Blood Gas Temperature 37.0 Blood Gas Respiration Rate 18.0 Blood Gas Actual Respiration Rate 28 Blood Gas Modality VENT - AC FiO2 50.0 Blood Gas Tidal Volume 550.0 Blood Gas Low PEEP Setting 5.0 Blood Gas Notified Whom CW Blood Gas Notified Time 02/14/2017 8:15:59 AM Medications Medications Current Medications Hydromorphone HCl (Dilaudid) 1 mg Q4H PRN IV pain Last administered on 19:56; Admin Dose 1 MG; Start 02/01/17 at 03:30 Pantoprazole (Protonix Iv) 40 mg DAILY@06 IV Last administered on 02/14/17 06: 09; Admin Dose 40 MG; Start 02/01/17 at 06:00 Acetaminophen/ Hydrocodone Bitart ([place] (5/325)) 1 tab Q4H PRN PO PAIN LEVEL 4 -7 Last administered on 02/09/17 18:48; Admin Dose 1 TAB; Start 02/01/17 at 20: 30 Acetaminophen/ Hydrocodone Bitart ([place] (5/325)) 2 tab Q4H PRN PO PAIN LEVEL 7 -10; Start 02/01/17 at 20:30 Hydromorphone HCl (Dilaudid) 0.5 mg Q2 PRN IV PAIN Last administered on 09:34; Admin Dose 0.5 MG; Start 02/01/17 at 20:30 Hydromorphone HCl (Dilaudid) 1 mg Q2 PRN IV PAIN Last administered on 11:57; Admin Dose 1 MG; Start 02/01/17 at 20:30 Docusate Sodium (Colace) 100 mg BID PRN PO CONSTIPATION; Start 02/01/17 at 20: 30 Bisacodyl (Dulcolax Supp) 10 mg BID PRN [place] CONSTIPATION; Start 02/01/17 at 20: 30 Sodium Biphosphate/ Sodium Phosphate 133 ml 133 ml BID PRN [place] CONSTIPATION; Start 02/01/17 at 20:30 Metronidazole 100 ml @ 100 mls/hr Q8 IVPB Last administered on 02/14/17 06:08 ; Admin Dose 100 MLS/HR; Start 02/04/17 at 15:00 Vancomycin HCl 250 ml @ 125 mls/hr Q12H IVPB Last administered on 02/14/17 06 :08; Admin Dose 125 MLS/HR; Start 02/05/17 at 06:00 Meropenem (Merrem 500 Mg/ 100 ml (Pmx)) 100 ml @ 200 mls/hr Q8 IVPB Last administered on 02/14/17 06:02; Admin Dose 200 MLS/HR; Start 02/05/17 at 22:00 Acetaminophen (Tylenol Liquid) 650 mg Q4H PRN GTB PAIN AND OR ELEVATED TEMP Last administered on 02/06/17 05:06; Admin Dose 650 MG; Start 02/05/17 at 18:30 Salmeterol Xinafoate/ Fluticasone (Advair 250/50 Diskus) 1 inh BID INH Last administered on 02/12/17 09:03; Admin Dose 1 INH; Start 02/07/17 at 11:00 IV Flush (NS 10 ml) 10 ml PRN PRN IV IV PROTOCOL; Start 02/07/17 at 14:30 Diphenhydramine HCl 25 mg 25 mg Q6H PRN IV itching ; Start 02/07/17 at 20:00 Ondansetron HCl/ Sodium Chloride (Zofran Inj/NS) 54 ml @ 216 mls/hr Q6H PRN IV NAUSEA AND/OR VOMITING; Start 02/09/17 at 11:30 Prednisone (Prednisone) 40 mg DAILY PO Last administered on 02/12/17 09:03; Admin Dose 40 MG; Start 02/11/17 at 09:00 Lorazepam (Ativan) 1 mg Q2 PRN IV AGITATION/ANXIETY Last administered on 14:31; Admin Dose 1 MG; Start 02/10/17 at 17:00 Lorazepam (Ativan) 1 mg Q1HWA PRN IM AGITATION/ANXIETY; Start 02/10/17 at 19:00 Trimethobenzamide HCl 200 mg 200 mg Q6H PRN IM NAUSEA AND/OR VOMITING; Start at 19:30 Norepinephrine 16 mg/Dextrose 500 ml @ 1.87 mls/hr TITRATE IV ; Start 02/13/17 at 12:00; Status Future hold Propofol 100 ml @ 2.202 mls/ hr Q12H IV Last administered on 02/14/17 11:10; Admin Dose 17.616 MLS/HR; Start 02/13/17 at 10:00 Potassium Chloride 250 ml @ 62.5 mls/hr ONCE ONCE IVPB Last administered on 09:15; Admin Dose 62.5 MLS/HR; Start 02/14/17 at 09:00; Stop 02/14/17 at 12:59 Potassium Chloride 20 meq/ Sodium Chloride 110 ml @ 55 mls/hr ONCE ONCE IVPB ; Start 02/14/17 at 15:00; Stop 02/14/17 at 16:59 Total Parenteral Nutrition (Tpn) 1,000 ml @ 40 mls/hr Q24H IV ; Start 02/14/17 at 12:00 RICHAR ADRIAN Feb 14, 2017 11:28
[2017-02-14 11:34] LABS: BASOPHIL # 0.3 10^3/ul (0.0-0.1); EOSINOPHILS # 2.4 10^3/ul (0.0-0.5); LYMPHOCYTES # 0.9 10^3/ul (0.8-2.9); MONOCYTE # 1.4 10^3/ul (0.3-0.9); NEUTROPHIL # 12.1 10^3/ul (1.6-7.5); PLATELET ESTIMATE PLT APPEAR INCREASED
--- NOTE | 2017-02-14 11:44 | PN ---
Date/Time of Note Date/Time of Note DATE: 02/14/17 TIME: 11:42 Assessment/Plan VTE Prophylaxis VTE Prophylaxis Intervention: SCD's Lines/Catheters [facility] Central Line Central line still needed: Yes Urinary Cath still in place: Yes Reason Cath still needed: urinary retention Assessment/Plan Chief Complaint/Hosp Course Assessment/Plan: 46M with: 1. Perforated sigmoid colon 2/2 Severe Crohn's colitis - S/p Urgent Open Cronin's procedure with end colostomy, liver biopsy and abdominal lavage POD # 13. Pt now intubated. R/O worsening sepsis vs reglan withdrawal (he had received 38 doses of this prior to yesterday, then it was tapered off 3 days ago) vs EtOH withdrawal (has prior Hx of EtOH use before admission, per family) vs res distress sec to pleural effusions. - f/u surgery rec's, per their rec's and CT results - planning for aspirating the RUQ and LLQ fluid pockets with plans to put in drains if purulent - will attempt again today - have tapered of reglan now - continue ativan, librium low dose prn, bananna bag 2. Acute Resp failure / ?ARDS, Vent dependent - Continue vent mgt / abx , f/u pulm rec's - PO steroids 3. Chronic Crohn's disease with acute colitis and diarrhea: improved - Cultures growing ecoli / proteus / enterococcus - continue current abx 4. Persistent hypocalcemia and hypokalemia - replete as needed 5. Thrombocytopenia: ?HIT - plt nL now, monitor 6. SIRS with lactic acidosis 2/2 severe colitis - abx, f/u surgery and ID rec' s 7. Systemic shock likely hypovolemic from third spacing with hypoalbuminemia : improved, now off pressors 8. Hx of heavy alcohol and tobacco use just until admission - program counselor on cessation, see # 1 as well for possible withdrawal tx. 9. Probable underlying COPD and Cirrhosis based on hx which explains hypoalbuminemia - monitor 10. Anemia - transfuse per surgery rec's - will get one unit today pRBC. Critical care time = 40 min. Problems: Subjective 24 Hr Interval Summary Free Text/Dictation Pt had thoracentesis left side yesterday. Still intubated, on levophed. Exam/Review of Systems Vital Signs Vitals Vital Signs Date Time Temp Pulse Resp B/P Pulse Ox O2 Delivery O2 Flow Rate FiO2 02/14/17 10:45 85 22 100/65 99 Mechanical Ventilator 02/14/17 09:10 50 02/14/17 08:15 98.9 02/13/17 04:30 15.0 Intake and Output 02/13/17 02/13/17 02/14/17 15:00 23:00 07:00 Intake Total 857.2 ml 682.426 ml 352.1156 ml Output Total 455 ml 640 ml 560 ml Balance 402.2 ml 42.426 ml -207.8844 ml Exam Constitutional: intubated, opens eyes Head: atraumatic, normocephalic Eyes: PERRL Respiratory: slightly diminished breath sounds B/L Cardiovascular: tachycardic with regular rhythm Gastrointestinal: Soft, Right sided colostomy with brownish/greenish stool. surgical site covered Extremities: normal pulses, generalized edema on abd as well Results Result Diagram: 02/14/17 0430 02/14/17 0430 Results 24 hrs Laboratory Tests Test 02/14/17 04:30 02/14/17 05:31 02/14/17 07:20 White Blood Count 17.1 H Red Blood Count 2.72 L Hemoglobin 7.7 L Hematocrit 24.9 L Mean Corpuscular Volume 91.5 Mean Corpuscular Hemoglobin 28.3 L Mean Corpuscular Hemoglobin Concent 30.9 L Red Cell Distribution Width 16.0 H Platelet Count 425 H Mean Platelet Volume 11.7 H Neutrophils % 71.0 Lymphocytes % 5.0 L Monocytes % 8.0 Eosinophils % 14.0 H Basophils % 2.0 Neutrophils # 12.1 H Lymphocytes # 0.9 Monocytes # 1.4 H Eosinophils # 2.4 H Basophils # 0.3 H Platelet Estimate PLT APPEAR INCREASED Sodium Level 146 H Potassium Level 3.0 L Chloride Level 113 H Carbon Dioxide Level 24 Anion Gap 12 Blood Urea Nitrogen 20 Creatinine 0.75 Glucose Level 91 Calcium Level 7.3 L Lab Scanned Report BLOOD TRANSFUSION Blood Gas Specimen Source Blood arterial Arterial Blood Date Drawn 02/14/2017 7:50:55 AM Arterial Blood pH (Temp corrected) 7.476 H Arterial Blood pCO2 (Temp correct) 27.4 L Arterial Blood pO2 (Temp corrected) 61.3 L Arterial Blood HCO3 19.8 L Arterial Blood Base Excess -3.0 Arterial Blood Oxygen Saturation 91.2 L Raffy Test N/A Arterial Blood Gas Puncture Site Right Brachial Arterial Blood Carboxyhemoglobin 0.3 Arterial Blood Methemoglobin 0.3 Blood Gas A-a O2 Differential 264.4 H Oxyhemoglobin Percent 90.7 L Total Hemoglobin 9.2 L Blood Gas Temperature 37.0 Blood Gas Respiration Rate 18.0 Blood Gas Actual Respiration Rate 28 Blood Gas Modality VENT - AC FiO2 50.0 Blood Gas Tidal Volume 550.0 Blood Gas Low PEEP Setting 5.0 Blood Gas Notified Whom CW Blood Gas Notified Time 02/14/2017 8:15:59 AM Medications Medications Current Medications Hydromorphone HCl (Dilaudid) 1 mg Q4H PRN IV pain Last administered on 19:56; Admin Dose 1 MG; Start 02/01/17 at 03:30 Pantoprazole (Protonix Iv) 40 mg DAILY@06 IV Last administered on 02/14/17 06: 09; Admin Dose 40 MG; Start 02/01/17 at 06:00 Acetaminophen/ Hydrocodone Bitart ([place] (5/325)) 1 tab Q4H PRN PO PAIN LEVEL 4 -7 Last administered on 02/09/17 18:48; Admin Dose 1 TAB; Start 02/01/17 at 20: 30 Acetaminophen/ Hydrocodone Bitart ([place] (5/325)) 2 tab Q4H PRN PO PAIN LEVEL 7 -10; Start 02/01/17 at 20:30 Hydromorphone HCl (Dilaudid) 0.5 mg Q2 PRN IV PAIN Last administered on 09:34; Admin Dose 0.5 MG; Start 02/01/17 at 20:30 Hydromorphone HCl (Dilaudid) 1 mg Q2 PRN IV PAIN Last administered on 11:57; Admin Dose 1 MG; Start 02/01/17 at 20:30 Docusate Sodium (Colace) 100 mg BID PRN PO CONSTIPATION; Start 02/01/17 at 20: 30 Bisacodyl (Dulcolax Supp) [address] CONSTIPATION; Start 02/01/17 at 20: 30 Sodium Biphosphate/ Sodium Phosphate 133 ml [address] CONSTIPATION; Start 02/01/17 at 20:30 Metronidazole 100 ml @ 100 mls/hr Q8 IVPB Last administered on 02/14/17 06:08 ; Admin Dose 100 MLS/HR; Start 02/04/17 at 15:00 Vancomycin HCl 250 ml @ 125 mls/hr Q12H IVPB Last administered on 02/14/17 06 :08; Admin Dose 125 MLS/HR; Start 02/05/17 at 06:00 Meropenem (Merrem 500 Mg/ 100 ml (Pmx)) 100 ml @ 200 mls/hr Q8 IVPB Last administered on 02/14/17 06:02; Admin Dose 200 MLS/HR; Start 02/05/17 at 22:00 Acetaminophen (Tylenol Liquid) 650 mg Q4H PRN GTB PAIN AND OR ELEVATED TEMP Last administered on 02/06/17 05:06; Admin Dose 650 MG; Start 02/05/17 at 18:30 Salmeterol Xinafoate/ Fluticasone (Advair 250/50 Diskus) 1 inh BID INH Last administered on 02/12/17 09:03; Admin Dose 1 INH; Start 02/07/17 at 11:00 IV Flush (NS 10 ml) 10 ml PRN PRN IV IV PROTOCOL; Start 02/07/17 at 14:30 Diphenhydramine HCl 25 mg 25 mg Q6H PRN IV itching ; Start 02/07/17 at 20:00 Ondansetron HCl/ Sodium Chloride (Zofran Inj/NS) 54 ml @ 216 mls/hr Q6H PRN IV NAUSEA AND/OR VOMITING; Start 02/09/17 at 11:30 Prednisone (Prednisone) 40 mg DAILY PO Last administered on 02/12/17 09:03; Admin Dose 40 MG; Start 02/11/17 at 09:00 Lorazepam (Ativan) 1 mg Q2 PRN IV AGITATION/ANXIETY Last administered on 14:31; Admin Dose 1 MG; Start 02/10/17 at 17:00 Lorazepam (Ativan) 1 mg Q1HWA PRN IM AGITATION/ANXIETY; Start 02/10/17 at 19:00 Trimethobenzamide HCl 200 mg 200 mg Q6H PRN IM NAUSEA AND/OR VOMITING; Start at 19:30 Norepinephrine 16 mg/Dextrose 500 ml @ 1.87 mls/hr TITRATE IV ; Start 02/13/17 at 12:00; Status Future hold Propofol 100 ml @ 2.202 mls/ hr Q12H IV Last administered on 02/14/17 11:10; Admin Dose 17.616 MLS/HR; Start 02/13/17 at 10:00 Potassium Chloride 250 ml @ 62.5 mls/hr ONCE ONCE IVPB Last administered on 09:15; Admin Dose 62.5 MLS/HR; Start 02/14/17 at 09:00; Stop 02/14/17 at 12:59 Potassium Chloride 20 meq/ Sodium Chloride 110 ml @ 55 mls/hr ONCE ONCE IVPB ; Start 02/14/17 at 15:00; Stop 02/14/17 at 16:59 Total Parenteral Nutrition (Tpn) 1,000 ml @ 40 mls/hr Q24H IV ; Start 02/14/17 at 12:00 SUSAN SANCHEZ Feb 14, 2017 11:44
--- NOTE | 2017-02-14 12:47 | CONS ---
Date/Time of Note Date/Time of Note DATE: 02/14/17 TIME: 12:44 Assessment/Plan Assessment/Plan Chief Complaint/Hosp Course ID PROGRESS NOTE TOTAL ABX DAY #14 => Vanco IV, Merrem, Flagyl * S/P Zosyn 02/03 & 02/04 =>Zosyn was DC'd due to progressive thrombocytopenia -- PLTs improved * POD # 02/01/17 => s/p Laparoscopic exploration,open sigmoid colectomy with Deena end colostomy with liver biopsy segment V 24H INTERVAL SUMMARY * Sedated, orally intubated on the Vent -- ABD wound open w/DSG changes per RN * Recurrent acute hypoxic/hypercapnic respiratory failure, s/p THORA, with failure to improve, was re-intubated after successfully weaned off the Vent earlier this week and was stable for a couple of days up on tele -> progressive BLL effusions developed in addition to delirium, hypoxia. * Low grade temps, WBC remains elevated PHYSICAL EXAMINATION: GENERAL: VSS, restless, diaphoretic, less communicative today HEENT: Diaphoretic NECK: Supple, trach-> midline CHEST: Equal chest rise bilaterally,Mild tachypnea HEART: Pulse RRR ABDOMEN: STEVE present EXTREMITIES: Warm SKIN: Warm, dry ID ASSESSMENT: 46 yo M w/PMHx Crohn's disease admitted with: * POD # 02/01/17 => s/p Laparoscopic exploration,open sigmoid colectomy with Deena end colostomy with liver biopsy segment V 1. Sepsis, status post perforated viscus repair - SIRS continues w/ * WORSE 02/11/17 22,000 w/8% BANDEMIA + TMax 99.8 (+)Diaphoresis, tachypnea, increased delirium => Bilateral effusions * MICRO: Abdominal fluid culture growing Proteus mirabilis, E. coli, enterococcus species and strep * CT ABD 02/11: Small volume ascites w/enhancement suggestive of peritonitis 2. Acute recurrent respiratory failure=>Re-intubated * CT Chest 02/11: Moderate large layering bilateral pleural effusions with passive atelectasis within the lung bases. 4. Anemia with persistent thrombocytopenia, possibly secondary to sepsis and antibiotics.=> IMPROVED * Zosyn was changed to Levaquin. * rule out heparin-induced thrombocytopenia versus other etiologies, 6. Status post acute renal failure. 7. LIVER DX: Fatty liver w/necroinflammatory activity, no fibrosis, small iron deposit on stain 9. Hx of heavy alcohol and tobacco use just until admission - ?ETOH Withdrawal SXS? 9. Probable underlying COPD and Cirrhosis based on hx which explains hypoalbuminemia - monitor (-)MRSA Nares INVASIVES: * STEVE, PICC 02/07 ABX ALLERGIES: KNDA CURRENT ABX: TOTAL ABX DAY #14 => Vanco IV, Merrem, Flagyl S/P Zosyn ID RECOMMENDATIONS: 1. PLAN for IR aspirating the RUQ and LLQ fluid pockets with plans to put in drains if purulent. 2. Continue current ABX - repeat sputum cx and repeat ABD open wound Cx 3. Further recs pulmonary & surgery appreciated / . . . Problems: Consultation Date/Type/Reason Admit Date/Time Feb 01, 2017 at 03:10 Initial Consult Date 02/02/17 Type of Consultation: ID Referring Provider: VINCE PADGETT Exam/Review of Systems Vital Signs Vitals Vital Signs Date Time Temp Pulse Resp B/P Pulse Ox O2 Delivery O2 Flow Rate FiO2 02/14/17 10:45 85 22 100/65 99 Mechanical Ventilator 02/14/17 09:10 50 02/14/17 08:15 98.9 02/13/17 04:30 15.0 Intake and Output 02/13/17 02/13/17 02/14/17 15:00 23:00 07:00 Intake Total 857.2 ml 682.426 ml 352.1156 ml Output Total 455 ml 640 ml 560 ml Balance 402.2 ml 42.426 ml -207.8844 ml Results Result Diagram: 02/14/17 0430 02/14/17 0430 Results 24 hrs Laboratory Tests Test 02/14/17 04:30 02/14/17 05:31 02/14/17 07:20 White Blood Count 17.1 H Red Blood Count 2.72 L Hemoglobin 7.7 L Hematocrit 24.9 L Mean Corpuscular Volume 91.5 Mean Corpuscular Hemoglobin 28.3 L Mean Corpuscular Hemoglobin Concent 30.9 L Red Cell Distribution Width 16.0 H Platelet Count 425 H Mean Platelet Volume 11.7 H Neutrophils % 71.0 Lymphocytes % 5.0 L Monocytes % 8.0 Eosinophils % 14.0 H Basophils % 2.0 Neutrophils # 12.1 H Lymphocytes # 0.9 Monocytes # 1.4 H Eosinophils # 2.4 H Basophils # 0.3 H Platelet Estimate PLT APPEAR INCREASED Sodium Level 146 H Potassium Level 3.0 L Chloride Level 113 H Carbon Dioxide Level 24 Anion Gap 12 Blood Urea Nitrogen 20 Creatinine 0.75 Glucose Level 91 Calcium Level 7.3 L Lab Scanned Report BLOOD TRANSFUSION Blood Gas Specimen Source Blood arterial Arterial Blood Date Drawn 02/14/2017 7:50:55 AM Arterial Blood pH (Temp corrected) 7.476 H Arterial Blood pCO2 (Temp correct) 27.4 L Arterial Blood pO2 (Temp corrected) 61.3 L Arterial Blood HCO3 19.8 L Arterial Blood Base Excess -3.0 Arterial Blood Oxygen Saturation 91.2 L Raffy Test N/A Arterial Blood Gas Puncture Site Right Brachial Arterial Blood Carboxyhemoglobin 0.3 Arterial Blood Methemoglobin 0.3 Blood Gas A-a O2 Differential 264.4 H Oxyhemoglobin Percent 90.7 L Total Hemoglobin 9.2 L Blood Gas Temperature 37.0 Blood Gas Respiration Rate 18.0 Blood Gas Actual Respiration Rate 28 Blood Gas Modality VENT - AC FiO2 50.0 Blood Gas Tidal Volume 550.0 Blood Gas Low PEEP Setting 5.0 Blood Gas Notified Whom CW Blood Gas Notified Time 02/14/2017 8:15:59 AM Medications Medications Current Medications Hydromorphone HCl (Dilaudid) 1 mg Q4H PRN IV pain Last administered on 19:56; Admin Dose 1 MG; Start 02/01/17 at 03:30 Pantoprazole (Protonix Iv) 40 mg DAILY@06 IV Last administered on 02/14/17 06: 09; Admin Dose 40 MG; Start 02/01/17 at 06:00 Acetaminophen/ Hydrocodone Bitart (Lane (5/325)) 1 tab Q4H PRN PO PAIN LEVEL 4 -7 Last administered on 02/09/17 18:48; Admin Dose 1 TAB; Start 02/01/17 at 20: 30 Acetaminophen/ Hydrocodone Bitart (Lane (5/325)) 2 tab Q4H PRN PO PAIN LEVEL 7 -10; Start 02/01/17 at 20:30 Hydromorphone HCl (Dilaudid) 0.5 mg Q2 PRN IV PAIN Last administered on 09:34; Admin Dose 0.5 MG; Start 02/01/17 at 20:30 Hydromorphone HCl (Dilaudid) 1 mg Q2 PRN IV PAIN Last administered on 11:57; Admin Dose 1 MG; Start 02/01/17 at 20:30 Docusate Sodium (Colace) 100 mg BID PRN PO CONSTIPATION; Start 02/01/17 at 20: 30 Bisacodyl (Dulcolax Supp) 10 mg BID PRN MO CONSTIPATION; Start 02/01/17 at 20: 30 Sodium Biphosphate/ Sodium Phosphate 133 ml 133 ml BID PRN MO CONSTIPATION; Start 02/01/17 at 20:30 Metronidazole 100 ml @ 100 mls/hr Q8 IVPB Last administered on 02/14/17 06:08 ; Admin Dose 100 MLS/HR; Start 02/04/17 at 15:00 Vancomycin HCl 250 ml @ 125 mls/hr Q12H IVPB Last administered on 02/14/17 06 :08; Admin Dose 125 MLS/HR; Start 02/05/17 at 06:00 Meropenem (Merrem 500 Mg/ 100 ml (Pmx)) 100 ml @ 200 mls/hr Q8 IVPB Last administered on 02/14/17 06:02; Admin Dose 200 MLS/HR; Start 02/05/17 at 22:00 Acetaminophen (Tylenol Liquid) 650 mg Q4H PRN GTB PAIN AND OR ELEVATED TEMP Last administered on 02/06/17 05:06; Admin Dose 650 MG; Start 02/05/17 at 18:30 Salmeterol Xinafoate/ Fluticasone (Advair 250/50 Diskus) 1 inh BID INH Last administered on 02/12/17 09:03; Admin Dose 1 INH; Start 02/07/17 at 11:00; Status Future Hold IV Flush (NS 10 ml) 10 ml PRN PRN IV IV PROTOCOL; Start 02/07/17 at 14:30 Diphenhydramine HCl 25 mg 25 mg Q6H PRN IV itching ; Start 02/07/17 at 20:00 Ondansetron HCl/ Sodium Chloride (Zofran Inj/NS) 54 ml @ 216 mls/hr Q6H PRN IV NAUSEA AND/OR VOMITING; Start 02/09/17 at 11:30 Prednisone (Prednisone) 40 mg DAILY PO Last administered on 02/12/17 09:03; Admin Dose 40 MG; Start 02/11/17 at 09:00; Status Future Hold Lorazepam (Ativan) 1 mg Q2 PRN IV AGITATION/ANXIETY Last administered on 14:31; Admin Dose 1 MG; Start 02/10/17 at 17:00 Lorazepam (Ativan) 1 mg Q1HWA PRN IM AGITATION/ANXIETY; Start 02/10/17 at 19:00 Trimethobenzamide HCl 200 mg 200 mg Q6H PRN IM NAUSEA AND/OR VOMITING; Start at 19:30 Norepinephrine 16 mg/Dextrose 500 ml @ 1.87 mls/hr TITRATE IV ; Start 02/13/17 at 12:00; Status Future hold Propofol 100 ml @ 2.202 mls/ hr Q12H IV Last administered on 02/14/17 11:10; Admin Dose 17.616 MLS/HR; Start 02/13/17 at 10:00 Potassium Chloride 250 ml @ 62.5 mls/hr ONCE ONCE IVPB Last administered on 09:15; Admin Dose 62.5 MLS/HR; Start 02/14/17 at 09:00; Stop 02/14/17 at 12:59 Potassium Chloride 20 meq/ Sodium Chloride 110 ml @ 55 mls/hr ONCE ONCE IVPB ; Start 02/14/17 at 15:00; Stop 02/14/17 at 16:59 Total Parenteral Nutrition (Tpn) 1,000 ml @ 40 mls/hr Q24H IV ; Start 02/14/17 at 12:00 DARIUSZ QUINTERO NP Feb 14, 2017 12:47
[2017-02-14] MEDS: TPN 1,000 ML IV SCH (12:50)
[2017-02-14] MEDS ORDERED: IOHEXOL 300MG/ML 30 ML BTL ONE (14:11)
[2017-02-14] MEDS ORDERED: LIDOCAINE 1% (MDV) 20 ML INJ ONE (14:31)
[2017-02-14] MEDS ORDERED: POTASSIUM CHLORIDE 20 MEQ in SOD CHLORIDE 0.9% 100 ML IVPB ONE (15:00)
[2017-02-14] MEDS ORDERED: LIDOCAINE 1% (MPF) 5 ML VIAL SC ONE (16:30)
--- NOTE | 2017-02-14 16:33 | RADRPT ---
PROCEDURE: XR Chest. CLINICAL INDICATION: Verify central line placement. TECHNIQUE: Portable AP view of the chest was obtained. COMPARISON: 02/13/2017 FINDINGS: Interval retraction of the right internal jugular central venous access catheter from a satisfactory position in the superior vena cava to the thoracic inlet. The cardiomediastinal silhouette is with in normal limits. Endotracheal tube remains in good position the distal tip projecting 5 cm above t he hira. Distal tip of the nasogastric tube is below the diaphragm presumably within the stomach and unchanged. Bilateral pleural effusions slightly larger on the right with associated bibasilar a telectasis and mild interstitial edema is stable compared to the previous exam. There is no obvious pneumothorax. The osseous structures are intact with no evidence for acute abnormality. RPTAT:HJJR IMPRESSION: 1. Interval retraction of the right internal jugular approach central venous access catheter compar ed to the study of 02/13/2017, the distal tip now projecting at the thoracic inlet. 2. No evidence of pneumothorax. 3. Stable right larger than left pleural effusions and bilateral lower lobe consolidation likely at electasis in this intubated patient, the endotracheal and nasogastric tubes remain in satisfactory r adiographic positions. Physician Myron Date Time Electronically viewed and signed by Physician Myron on 02/14/2017 16:33 JR/
[2017-02-14 16:51] LABS: HEMATOCRIT 25.4 % (42.0-52.0); HEMOGLOBIN 8.2 g/dl (14.0-18.0)
[2017-02-14] MEDS: ACCU-CHEK XX SCH ×2 (17:54→21:38)
--- NOTE | 2017-02-14 18:46 | RADRPT ---
PROCEDURE: CT guided abdominal abscess drainage CLINICAL INDICATION: At pericolic gutter abscess status post surgery. TECHNIQUE: Informed written consent was obtained. The risks, benefits, and alternatives of the pr ocedure were explained to the patient. The patient was compliant and understood and wished to proce ed with the examination. A time-out was performed. A preliminary wic site coordinator CT scan of the abdomen was performed. Markers were placed on the skin for localization. The overlying skin of the left lower quadrant of the abdomen was prepped and draped in the usual sterile fashion. 10 cc of 1% lidocaine was injected locally for pain control. 10 cm long 18-gauge Chiba needle was advanced into the fluid collection using CT guidance. A 70 cm a long 0.035 inch Amplatz superstiff guide wire was placed t hrough the needle and into the fluid collection., the tract was dilated, and an 8.5 Maltese locking p igtail catheter was placed into the fluid collection without difficulty. Serous fluid was aspirated without difficulty and sent to the laboratory for further analysis. The patient tolerated procedure well. No complications occurred. Postprocedural CT scan revealed no complications. No significant hemorrhage or other abnormality was seen. Exam CTDI equals 190 mGy, and exam and DLP equals 996 mGy- cm. COMPARISON: CT dated 02/13/2017 FINDINGS: Successful percutaneous placement of 8.5 Maltese pigtail catheter to left lower quadrant fluid collec tion. Preprocedural diagnosis: Intra-abdominal abscess. Postprocedural diagnosis: Ascites. Surgeon: Dottie JOSHI. Condition: Stable Estimated blood loss: 0 cc. Specimens removed: 140 cc serous fluid Complications: None IMPRESSION: 1. Successful CT guided left lower quadrant fluid collection drainage and pigtail catheter placemen t. 2. No immediate complications. RPTAT: II .Blake Sinclair MD, Date Time Electronically viewed and signed by .Blake Sinclair MD, on 02/14/2017 18:45 .M/
[2017-02-14] MEDS ORDERED: HEPARIN (10 UNITS/ML) 5ML SYG IV ONE (20:30)
--- NOTE | 2017-02-14 20:36 | RADRPT ---
PROCEDURE: XR Chest. CLINICAL INDICATION: PICC line placement. TECHNIQUE: Portable AP view of the chest was obtained. COMPARISON: 02/14/2017 at 15:52 FINDINGS: Distal tip of the new right PICC points inferiorly in the region of the superior vena cava just abov e the right atrial junction. The cardiomediastinal silhouette is within normal limits. Bilateral l ower lobe consolidation either atelectasis or infiltrates slightly less conspicuous on the prior joe dy. Distal tip of the endotracheal tube and nasogastric tube unchanged in satisfactory positions. Distal tip of the right internal jugular central venous access catheter projects at the thoracic inl et, stable. There is no evidence of pneumothorax. The right larger left pleural effusions are agai n noted. The osseous structures are intact with no evidence for acute abnormality. Multiple monitor ing wires overlie the chest limiting fine evaluation. RPTAT:HJJR IMPRESSION: 1. Successful interval right-sided PICC placement, the distal tip projecting at the level of the fischer perior vena cava just above the right atrial junction. 2. Slight decrease in bilateral lower lobe consolidation and pleural effusions for this intubated p atient as compared to earlier the same day. 3. Right internal jugular central venous access catheter again suggested projecting at the right th oracic inlet. 4. Endotracheal and nasogastric tube stable in satisfactory positions. Physician Myron Date Time Electronically viewed and signed by Physician Myron on 02/14/2017 20:36 JR/
[2017-02-14 23:10] LABS: HEMATOCRIT 22.7 % (42.0-52.0); HEMOGLOBIN 7.3 g/dl (14.0-18.0)
[2017-02-15] VITALS (75 sets, daily range): BP systolic 95–124; BP diastolic 60–81; PULSE 84–116; RESP 16–32
[2017-02-15] MEDS ORDERED: SOD CHLORIDE 0.9% 250 ML IV* ONE
[2017-02-15] MEDS: ACCU-CHEK XX SCH ×6 (01:32→22:00)
[2017-02-15] MEDS: PROPOFOL 100 ML IV SCH ×4 (02:50→22:30)
[2017-02-15] MEDS: ACETAMINOPHEN 650MG/20.3ML CUP GTB PRN (02:52)
[2017-02-15] MEDS: PANTOPRAZOLE 40 MG INJ IV SCH (05:56)
[2017-02-15] MEDS: VANCOMYCIN 1 GM in NS 250 ML IVPB SCH ×2 (05:56→18:23)
[2017-02-15] MEDS: metroNIDAZOLE 500 MG/NS (PMX) 100 ML IVPB SCH ×3 (05:56→22:00)
[2017-02-15] MEDS: LORAZEPAM 2 MG INJ IV PRN (05:57)
[2017-02-15] MEDS: MEROPENEM 500 MG/100 ML (PMX) 100 ML IVPB SCH ×3 (05:57→22:00)
[2017-02-15 07:07] LABS: ADD SCAN DIFF NO
[2017-02-15 07:09] LABS: ABNORMAL IP MESSAGE 1; BASOPHILS % 0.1 % (0.0-2.0); EOSINOPHILS # 0.1 10^3/ul (0.0-0.5); EOSINOPHILS % 0.7 % (0.0-7.0); HEMATOCRIT 25.4 % (42.0-52.0); HEMOGLOBIN 8.2 g/dl (14.0-18.0); LYMPHOCYTES # 0.5 10^3/ul (0.8-2.9); LYMPHOCYTES % 2.6 % (15.0-51.0); MEAN CORPUSCULAR HGB CONC 32.3 g/dl (32.0-37.0); MEAN CORPUSCULAR VOLUME 89.8 fl (82.0-101.0); MEAN PLATELET VOLUME 11.6 fl (7.4-10.4); MONOCYTE # 0.5 10^3/ul (0.3-0.9); MONOCYTES % 2.5 % (0.0-11.0); NEUTROPHIL # 17.6 10^3/ul (1.6-7.5); PLATELET COUNT 375 10^3/UL (140-415); RED BLOOD COUNT 2.83 10^6/ul (4.70-6.10); RED CELL DISTRIBUTION WIDTH 15.4 % (11.5-14.5)
[2017-02-15 07:12] LABS: NEUTROPHILS % 92.6 % (39.0-77.0)
--- NOTE | 2017-02-15 07:15 | PN ---
DATE: 02/14/2017 CARDIOLOGY FOLLOWUP SUBJECTIVE: Discussed with the staff. Events noted. The patient with a cardiopulmonary arrest and marked bradycardia, respiratory failure post-thoracentesis. Required to be intubated and transferr ed to ICU. Currently intubated on Levophed drip. Rhythm strip was reviewed. Remains in sinus rhyt hm so far since then. Also had thoracentesis done on the other side as well. Remains nonverbal in the ICU on the vent on Levophed drip. MEDICATIONS: Reviewed as per medication reconciliation, personally reviewed. PHYSICAL EXAMINATION: VITAL SIGNS: Temperature 98.9, heart rate of 100, blood pressure 101/63, respiration rate of 27, sa turating 95% on 50% oxygen. HEENT: Normocephalic, atraumatic. Pupils are equal. Status post intubation on the vent. CARDIOVASCULAR: Regular rate and rhythm, ____ murmur. PULMONARY: Mild rhonchi bilateral. GASTROINTESTINAL: Status post surgery with colostomy and dressing in place. EXTREMITIES: With trivial lower extremity edema. NEUROLOGIC: Sedated. PSYCHIATRIC: Appears to be calm. LABORATORY: Sodium 146, potassium is 3, BUN of 20, creatinine 0.75, glucose of 91, proBNP of 1150 y esterday. Albumin is 2.0 as of yesterday. WBC of 17.1, hemoglobin 7.7, platelets of 425. ABG show s pH of 7.47, pCO2 of 27, pO2 of 61, bicarbonate of 19.8. Chest x-ray most recent done last night s hows NG tube inserted in the stomach, no significant change. Bilateral pulmonary airspace disease i n mid and lower lungs consistent with atelectasis or pneumonia is unchanged. Moderate right pleural effusion and small left pleural effusion. ASSESSMENT AND PLAN: 1. Status post cardiopulmonary arrest. 2. Septic shock. 3. Perforated colon, status post surgery, Deena procedure and colostomy. 4. Respiratory failure, intubated on the vent. 5. History of Crohn disease. 6. Electrolyte abnormality, hypercalcemia. 7. Thrombocytopenia. 8. History of alcohol and tobacco use. 9. History of probable chronic obstructive pulmonary disease with recurrent pleural effusion, statu s post multiple thoracenteses. 10. Severe anemia, status post transfusions. 11. Electrolyte abnormalities with hypokalemia as well as hypernatremia. RECOMMENDATIONS: I will replace the potassium. I will replace the magnesium as well. Continue wit h the ICU care. Vent support. Weaning as tolerated, will be deferred to pulmonary team. Levophed will be continued as needed and try to titrate off as tolerated. We will continue with the ICU care . More than 37 minutes of critical care time was spent in management of this patient excluding any pro cedures. Dictated By: LEONID GORDILLO MD AV/NTS Conf#: [id number] DID#: [id number] CC: SUSAN SANCHEZ; CATIE ELENA MD; TI HILTON MD;*EndCC*
[2017-02-15 07:23] LABS: ALBUMIN 1.6 g/dl (3.3-4.9)
[2017-02-15 07:24] LABS: HDL CHOLESTEROL 11 mg/dl (27-67); POTASSIUM 3.4 mmol/L (3.5-5.1); TRIGLYCERIDES 178 mg/dl (0-149)
[2017-02-15 07:26] LABS: ALBUMIN/GLOBULIN RATIO 0.69; BILIRUBIN,INDIRECT 0.3 mg/dl (0-1.1); BILIRUBIN,TOTAL 0.3 mg/dl (0.2-1.3); CREATININE 0.63 mg/dl (0.61-1.24); TOTAL PROTEIN 3.9 g/dl (6.1-8.1)
[2017-02-15 07:27] LABS: CALCIUM 7.1 mg/dl (8.4-10.2); MAGNESIUM 1.7 mg/dl (1.7-2.5)
[2017-02-15 07:28] LABS: INR 1.28; PROTIME 16.1 Sec (12.2-14.2); PT RATIO 1.3
[2017-02-15 07:31] LABS: PREALBUMIN 5.8 mg/dl (17.6-36.0)
[2017-02-15 07:33] LABS: CHOLESTEROL < 50 mg/dl (100-200)
--- NOTE | 2017-02-15 07:43 | PN ---
Date/Time of Note Date/Time of Note DATE: 02/14/17 TIME: 11:37 Assessment/Plan Lines/Catheters IV Catheter Type (from Nrsg): PICC Line Zeng in Place (from Nrsg): Yes Assessment/Plan Assessment/Plan [facility] Progress Note (late entry) Date of Service: 02/14/17 Today's Impression & Plan: Overall has remained in a critically ill but stable state. Still on the vent. C- diff negative. Awaiting interrogating the abdominal fluid collections through IR. Wound appears to have possibly dehisced, but no evisceration at the moment and no issues with sig fluid loss. On the schedule for OR for Wednesday. Due to infectious concerns, will likely need to do temporary closure (+/- biologics) to gain control over the situation. Awaiting further clarification of the pulmonary system. Remains high risk for complication given perforated colon in the setting of uncontrolled Crohn's. Recovery will take extra time with likely need for rehab. D/w team. With above assessment, I've recommended the following for today: 1. Cont current cares in ICU 2. F/u on cultures 3. TPN ordered given length of time and likelihood of not being able to take enough calories in 4. Treat ETOH withdrawal 5. Cont gentle diuresis to BMP < 200 6. Social work and case management to please start working on possible rehab vs. home health nurse set up 7. Increase activity 8. Increase ICS 9. Cont broad spec antimicrobials 10. Labs in am 11. Cont current wound care for now; will tentatively put on the schedule for Wednesday for exploration and fascia closure 12. CT-guided drainage of abscess LLQ and RUQ as above Thank you again for your great care of this very pleasant patient and wonderful family. If there are any questions, please feel free to call me at [phone]. TOTAL VISIT TIME: 20 minutes of which more than half was spent in tcup-at-radk discussion with the patient, possibly including family, as well as coordination of care between multiple physicians and providers. Disclaimer: Inadvertent spelling or grammatical errors are likely due to EHR/ dictation software use and do not reflect on the overall quality of patient care. Updated Clinical Summary: a very pleasant 46-year-old gentleman with history of Crohn's disease as well as prior surgery for anal fistula approximately 5 years ago, and a torn meniscus repair on the left knee, presenting with abdominal pain associated with a few weeks' duration of diarrhea. S/p an otherwise uncomplicated diagnostic laparoscopy was converted first to hand assist and then to open exploration when perforated sigmoid colon was found and it was resected with a Deena type procedure and end colostomy as well as core needle liver biopsy, segment 5, due to presence of fatty liver disease, lysis of adhesions, and abdominal lavage on 02/01/17. Failed to wean off the vent through 02/06/17. PE was evaluated 02/07/[address] angio and no evidence found. CT abd/pelvis also did not show actionable findings (no abscess; bowel thickening somewhat expected). Extubated 02/07/17. [employer]PER[employer] called early am 02/13/17 with a few minutes coding, requiring intubation and transfer to ICU. Fortunately, mentally appears to be intact and not on pressors. Lactic acid and CO2 normal with benign appearing abd and viable ostomy. COMORBIDITIES: 1. Crohn disease with perforation of sigmoid colon and sepsis. S/p an otherwise uncomplicated diagnostic laparoscopy was converted first to hand assist and then to open exploration when perforated sigmoid colon was found and it was resected with a Deena type procedure and end colostomy as well as core needle liver biopsy, segment 5, due to presence of fatty liver disease, lysis of adhesions, and abdominal lavage on 02/01/17. Complicated by respiratory failure, return trip to ICU and fascia dehiscence. 2. Repair of a fistula approximately 5 years ago. 3. Torn meniscus on the left knee status post repair. Subjective: Major events overnight; no major complaints; arousable but sedated; does not appear to report abd pain when asked Objective: Vitals: See below Exam: GENERAL: On exam, the patient was laying in bed and appeared to be comfortable and in no acute distress. Intubated. ABDOMEN: Soft, nontender and nondistended. Incision dressings are clean without any evidence of obvious erythema, edema, discharge, but with possible fascia dehiscence given appearance of the closure suture in the middle of what appears to be widened midline fascia; no bowel evisceration; no sig leakage of fluid. Surgery drain site clean. Ostomy pink and viable; some air and stool in the bag. There are no peritoneal signs or guarding. SKIN: Skin appears to be pink and feels warm to touch. NEUROLOGIC: Patient is sedated, but appears to wake up to voice and does not follow commands appropriately. Exam/Review of Systems Vital Signs Vitals Vital Signs Date Time Temp Pulse Resp B/P Pulse Ox O2 Delivery O2 Flow Rate FiO2 02/15/17 07:30 98.3 85 22 106/72 99 Mechanical Ventilator 02/15/17 05:45 50 02/13/17 04:30 15.0 Intake and Output 02/14/17 02/14/17 02/15/17 15:00 23:00 07:00 Intake Total 721.6 ml 226.4 ml Output Total 400 ml 670 ml 470 ml Balance 321.6 ml -443.6 ml -470 ml Results Result Diagram: 02/15/17 0630 02/15/17 0630 TI HILTON M.D. February 15, 2017 07:43
--- NOTE | 2017-02-15 09:08 | RADRPT ---
PROCEDURE: XR Chest. CLINICAL INDICATION: Check PICC line position. TECHNIQUE: Single frontal view. COMPARISON: 02/14/2017. 1922 hours. FINDINGS: There is a right arm PICC line with the tip in the lower superior vena cava. The endotracheal tube and nasogastric tube remain in satisfactory position. There is atelectasis at both lung bases, unch anged from the prior study done earlier the same day. The heart size is normal. There are moderate bilateral pleural effusions with right larger than left. There is no pneumothorax. IMPRESSION: 1. Satisfactory position of right arm PICC line. 2. No other change from the prior study done earlier the same day. RPTAT: QQ .Rogelio Vera MD, MD Date Time Electronically viewed and signed by .Rogelio Vera MD, on 02/15/2017 09:08 .R/
--- NOTE | 2017-02-15 09:09 | RADRPT ---
PROCEDURE: XR Chest. CLINICAL INDICATION: Shortness of breath. TECHNIQUE: Single frontal view. COMPARISON: 02/14/2017. FINDINGS: The right arm PICC line, endotracheal tube, nasogastric tube remain in satisfactory position. There is atelectasis at the lung bases, unchanged. The lungs are otherwise clear. The heart size is normal. Moderate bilateral pleural effusions with right larger than left are unchanged. There is no pneumothorax. IMPRESSION: 1. No change from 02/14/2017. RPTAT: QQ .Rogelio Vera MD, MD Date Time Electronically viewed and signed by .Rogelio Vera MD, MD on 02/15/2017 09:09 .R/
--- NOTE | 2017-02-15 09:33 | CONS ---
Date/Time of Note Date/Time of Note DATE: 02/15/17 TIME: 09:28 Assessment/Plan Assessment/Plan Additional Assessment/Plan Chest x-ray was reviewed from today which is showing significant improvement in bilateral pleural effusions. Endotracheal tube is at an adequate level. Ventilator settings; AC of 18, tidal volume 550, PEEP of 5, 50% FiO2. Assessment and recommendations; 1. Patient admitted for acute abdomen discovered to have perforated sigmoid colon due to diverticulitis status post laparoscopic sigmoid resection with colostomy. 2. Patient had to be reintubated because of hypotension and sepsis. 3. Anemia, patient status post packed RBC transfusion. No overt bleeding noted. 4. Persistent ileus. 5. Increasing leukocytosis. Continue current treatment. Patient will undergo reexploration of the abdomen today. Meanwhile I would recommend adding caspofungin 70 mg IV daily. Continue TPN, current sedation, other antibiotics. 35 minutes of critical care time was spent evaluating the patient . Consultation Date/Type/Reason Admit Date/Time Feb 01, 2017 at 03:10 Initial Consult Date 02/02/17 Type of Consultation: Pulmonary/critical care Referring Provider: VINCE PADGETT 24 HR Interval Summary Free Text/Dictation Patient condition remains critical. Remains ventilator dependent. Patient however has remained hemodynamically stable. Currently maintained on propofol drip. Also has been started on TPN due to ileus. General exam; young male, orally intubated, sedated, currently in no distress. Exam/Review of Systems Vital Signs Vitals Vital Signs Date Time Temp Pulse Resp B/P Pulse Ox O2 Delivery O2 Flow Rate FiO2 02/15/17 08:05 95 26 99 50 02/15/17 08:00 105/68 02/15/17 07:30 98.3 Mechanical Ventilator 02/13/17 04:30 15.0 Intake and Output 02/14/17 02/14/17 02/15/17 15:00 23:00 07:00 Intake Total 721.6 ml 226.4 ml Output Total 400 ml 670 ml 470 ml Balance 321.6 ml -443.6 ml -470 ml Exam HEENT exam is; supple neck, no JVD. No lymphadenopathy. Midline trachea. No thyromegaly. Patient has fair dentition. Pupils are small bilaterally. Chest examination; improved based on lung bases bilaterally. Upper lobes are clear. S1-S2 audible, no murmurs. Regular rhythm. Abdomen examination; soft, colostomy in place. Mildly distended. Bowel sounds are absent. Extremity exam; trace peripheral edema. Pulses 1+ bilaterally. RED CAP examination; patient is sedated. Results Result Diagram: 02/15/17 0630 02/15/17 0630 Results 24 hrs Laboratory Tests Test 02/14/17 12:47 02/14/17 16:00 02/14/17 16:35 02/14/17 17:54 Bedside Glucose 76 88 Hemoglobin 8.2 L Hematocrit 25.4 L Vancomycin Level Trough 13.6 Test 02/14/17 21:43 02/14/17 22:53 02/15/17 01:30 02/15/17 05:55 Bedside Glucose 88 100 109 Hemoglobin 7.3 L Hematocrit 22.7 L Test 02/15/17 06:30 02/15/17 08:53 White Blood Count 19.0 H Red Blood Count 2.83 L Hemoglobin 8.2 L Hematocrit 25.4 L Mean Corpuscular Volume 89.8 Mean Corpuscular Hemoglobin 29.0 Mean Corpuscular Hemoglobin Concent 32.3 Red Cell Distribution Width 15.4 H Platelet Count 375 Mean Platelet Volume 11.6 H Neutrophils % 92.6 H Lymphocytes % 2.6 L Monocytes % 2.5 Eosinophils % 0.7 Basophils % 0.1 Nucleated Red Blood Cells % 0.0 Neutrophils # 17.6 H Lymphocytes # 0.5 L Monocytes # 0.5 Eosinophils # 0.1 Basophils # 0.0 Nucleated Red Blood Cells # 0.0 Prothrombin Time 16.1 H Prothrombin Time Ratio 1.3 INR International Normalized Ratio 1.28 Sodium Level 146 H Potassium Level 3.4 L Chloride Level 113 H Carbon Dioxide Level 26 Anion Gap 10 Blood Urea Nitrogen 16 Creatinine 0.63 Glucose Level 106 Calcium Level 7.1 L Phosphorus Level 3.2 # Magnesium Level 1.7 Total Bilirubin 0.3 Direct Bilirubin 0.00 Indirect Bilirubin 0.3 Aspartate Amino Transf (AST/SGOT) 18 Alanine Aminotransferase (ALT/SGPT) 26 Alkaline Phosphatase 75 Total Protein 3.9 L Albumin 1.6 L Globulin 2.30 Albumin/Globulin Ratio 0.69 Prealbumin 5.8 L Triglycerides Level 178 H Cholesterol Level < 50 L LDL Cholesterol, Calculated HDL Cholesterol 11 L Cholesterol/HDL Ratio Bedside Glucose 116 Medications Medications Current Medications Hydromorphone HCl (Dilaudid) 1 mg Q4H PRN IV pain Last administered on 19:56; Admin Dose 1 MG; Start 02/01/17 at 03:30 Pantoprazole (Protonix Iv) 40 mg DAILY@06 IV Last administered on 02/15/17 05: 56; Admin Dose 40 MG; Start 02/01/17 at 06:00 Acetaminophen/ Hydrocodone Bitart ([place] (5/325)) 1 tab Q4H PRN PO PAIN LEVEL 4 -7 Last administered on 02/09/17 18:48; Admin Dose 1 TAB; Start 02/01/17 at 20: 30 Acetaminophen/ Hydrocodone Bitart ([place] (5/325)) 2 tab Q4H PRN PO PAIN LEVEL 7 -10; Start 02/01/17 at 20:30 Hydromorphone HCl (Dilaudid) 0.5 mg Q2 PRN IV PAIN Last administered on 16:14; Admin Dose 0.5 MG; Start 02/01/17 at 20:30 Hydromorphone HCl (Dilaudid) 1 mg Q2 PRN IV PAIN Last administered on 11:57; Admin Dose 1 MG; Start 02/01/17 at 20:30 Docusate Sodium (Colace) 100 mg BID PRN PO CONSTIPATION; Start 02/01/17 at 20: 30 Bisacodyl (Dulcolax Supp) 10 mg BID PRN [place] CONSTIPATION; Start 02/01/17 at 20: 30 Sodium Biphosphate/ Sodium Phosphate 133 ml 133 ml BID PRN [place] CONSTIPATION; Start 02/01/17 at 20:30 Metronidazole 100 ml @ 100 mls/hr Q8 IVPB Last administered on 02/15/17 05:56 ; Admin Dose 100 MLS/HR; Start 02/04/17 at 15:00 Vancomycin HCl 250 ml @ 125 mls/hr Q12H IVPB Last administered on 02/15/17 05: 56; Admin Dose 125 MLS/HR; Start 02/05/17 at 06:00 Meropenem (Merrem 500 Mg/ 100 ml (Pmx)) 100 ml @ 200 mls/hr Q8 IVPB Last administered on 02/15/17 05:57; Admin Dose 200 MLS/HR; Start 02/05/17 at 22:00 Acetaminophen (Tylenol Liquid) 650 mg Q4H PRN GTB PAIN AND OR ELEVATED TEMP Last administered on 02/15/17 02:52; Admin Dose 650 MG; Start 02/05/17 at 18:30 Salmeterol Xinafoate/ Fluticasone (Advair 250/50 Diskus) 1 inh BID INH Last administered on 02/12/17 09:03; Admin Dose 1 INH; Start 02/07/17 at 11:00; Status Future Hold IV Flush (NS 10 ml) 10 ml PRN PRN IV IV PROTOCOL; Start 02/07/17 at 14:30 Diphenhydramine HCl 25 mg 25 mg Q6H PRN IV itching ; Start 02/07/17 at 20:00 Ondansetron HCl/ Sodium Chloride (Zofran Inj/NS) 54 ml @ 216 mls/hr Q6H PRN IV NAUSEA AND/OR VOMITING; Start 02/09/17 at 11:30 Prednisone (Prednisone) 40 mg DAILY PO Last administered on 02/12/17 09:03; Admin Dose 40 MG; Start 02/11/17 at 09:00; Status Future Hold Lorazepam (Ativan) 1 mg Q2 PRN IV AGITATION/ANXIETY Last administered on 05:57; Admin Dose 1 MG; Start 02/10/17 at 17:00 Lorazepam (Ativan) 1 mg Q1HWA PRN IM AGITATION/ANXIETY; Start 02/10/17 at 19:00 Trimethobenzamide HCl 200 mg 200 mg Q6H PRN IM NAUSEA AND/OR VOMITING; Start at 19:30 Norepinephrine 16 mg/Dextrose 500 ml @ 1.87 mls/hr TITRATE IV ; Start 02/13/17 at 12:00; Status Future hold Propofol 100 ml @ 2.202 mls/ hr Q12H IV Last administered on 02/15/17 07:00; Admin Dose 13.212 MLS/HR; Start 02/13/17 at 10:00 Total Parenteral Nutrition (Tpn) 1,000 ml @ 40 mls/hr Q24H IV Last administered on 02/14/17 12:50; Admin Dose 40 MLS/HR; Start 02/14/17 at 12:00 Diagnostic Test (Pha) (Accu-Chek) 1 ea Q4 XX Last administered on 02/15/17t 05: 55; Admin Dose 1 EA; Start 02/14/17 at 17:00 RICHAR ADRIAN February 15, 2017 09:33
[2017-02-15] MEDS ORDERED: POTASSIUM CHLORIDE 250 ML IVPB ONE (10:00)
--- NOTE | 2017-02-15 10:00 | PN ---
Date/Time of Note Date/Time of Note DATE: 02/15/17 TIME: 09:43 Assessment/Plan VTE Prophylaxis VTE Prophylaxis Intervention: heparin Lines/Catheters IV Catheter Type (from Nrs): PICC Line Central line still needed: Yes Urinary Cath still in place: Yes Reason Cath still needed: other (indicate) Assessment/Plan Assessment/Plan IMPRESSION 1. Perforated sigmoid colon 2/2 Severe Crohn's colitis S/p Urgent Open Cronin's procedure with end colostomy, liver biopsy and abdominal lavage 02/01/17 Post operative paracolic abscess drained via CT 02/14/[address] 2. Recurrent Resp failure: reintubated 02/13: vent dependent 3. Exacerbation of Crohn's disease with acute colitis and diarrhea Cultures growing ecoli / proteus / enterococcus 4. Multifocal PNA + Mook Pleural effusions Effusions likely hydrostatic from hypoalbuminemia 5. Severe Sepsis with lactic acidosis 2/2 severe colitis / PNA 6. S/p Systemic shock (hypovolemic +septic) 7. TPN therapy for low prealbumin 8. Hx of heavy alcohol and tobacco use just until admission 9. Probable underlying COPD and Cirrhosis based on hx which explains hypoalbuminemia and anasarca 10. Severe anemia : improved post transfusion PLAN: * Continue current ICU care and Vent Mgt and weaning * ID managing abx and antifungal * Replace electrolytes as needed * PRN pain control/ antiemetics/ antipyretics/ supportive care CRITICAL CARE TIME: >35 mins Subjective 24 Hr Interval Summary Free Text/Dictation Patient seen and examined. Intubated and sedated for comfort Nursing reports no acute overnight events. s/p CT guided left lower quadrant fluid collection drainage and pigtail catheter placement yesterday Subjective hx not possible: pt critical status Exam/Review of Systems Vital Signs Vitals Vital Signs Date Time Temp Pulse Resp B/P Pulse Ox O2 Delivery O2 Flow Rate FiO2 02/15/17 08:05 95 26 99 50 02/15/17 08:00 105/68 02/15/17 07:30 98.3 Mechanical Ventilator 02/13/17 04:30 15.0 Intake and Output 02/14/17 02/14/17 02/15/17 14:59 22:59 06:59 Intake Total 823.4 ml 226.4 ml Output Total 400 ml 610 ml 530 ml Balance 423.4 ml -383.6 ml -530 ml Exam Constitutional: intubated, opens eyes Head: atraumatic, normocephalic Eyes: PERRL Respiratory: slightly diminished breath sounds B/L Cardiovascular: tachycardic with regular rhythm Gastrointestinal: Soft, Right sided colostomy with brownish/greenish stool. surgical site covered Extremities: normal pulses, generalized edema on abd as well Results Result Diagram: 02/15/17 0630 02/15/17 0630 Results 24 hrs Laboratory Tests Test 02/14/17 12:47 02/14/17 16:00 02/14/17 16:35 02/14/17 17:54 Bedside Glucose 76 88 Hemoglobin 8.2 L Hematocrit 25.4 L Vancomycin Level Trough 13.6 Test 02/14/17 21:43 02/14/17 22:53 02/15/17 01:30 02/15/17 05:55 Bedside Glucose 88 100 109 Hemoglobin 7.3 L Hematocrit 22.7 L Test 02/15/17 06:30 02/15/17 08:53 White Blood Count 19.0 H Red Blood Count 2.83 L Hemoglobin 8.2 L Hematocrit 25.4 L Mean Corpuscular Volume 89.8 Mean Corpuscular Hemoglobin 29.0 Mean Corpuscular Hemoglobin Concent 32.3 Red Cell Distribution Width 15.4 H Platelet Count 375 Mean Platelet Volume 11.6 H Neutrophils % 92.6 H Lymphocytes % 2.6 L Monocytes % 2.5 Eosinophils % 0.7 Basophils % 0.1 Nucleated Red Blood Cells % 0.0 Neutrophils # 17.6 H Lymphocytes # 0.5 L Monocytes # 0.5 Eosinophils # 0.1 Basophils # 0.0 Nucleated Red Blood Cells # 0.0 Prothrombin Time 16.1 H Prothrombin Time Ratio 1.3 INR International Normalized Ratio 1.28 Sodium Level 146 H Potassium Level 3.4 L Chloride Level 113 H Carbon Dioxide Level 26 Anion Gap 10 Blood Urea Nitrogen 16 Creatinine 0.63 Glucose Level 106 Calcium Level 7.1 L Phosphorus Level 3.2 # Magnesium Level 1.7 Total Bilirubin 0.3 Direct Bilirubin 0.00 Indirect Bilirubin 0.3 Aspartate Amino Transf (AST/SGOT) 18 Alanine Aminotransferase (ALT/SGPT) 26 Alkaline Phosphatase 75 Total Protein 3.9 L Albumin 1.6 L Globulin 2.30 Albumin/Globulin Ratio 0.69 Prealbumin 5.8 L Triglycerides Level 178 H Cholesterol Level < 50 L LDL Cholesterol, Calculated HDL Cholesterol 11 L Cholesterol/HDL Ratio Bedside Glucose 116 Medications Medications Current Medications Hydromorphone HCl (Dilaudid) 1 mg Q4H PRN IV pain Last administered on 19:56; Admin Dose 1 MG; Start 02/01/17 at 03:30 Pantoprazole (Protonix Iv) 40 mg DAILY@06 IV Last administered on 02/15/17 05: 56; Admin Dose 40 MG; Start 02/01/17 at 06:00 Acetaminophen/ Hydrocodone Bitart ([place] (5/325)) 1 tab Q4H PRN PO PAIN LEVEL 4 -7 Last administered on 02/09/17 18:48; Admin Dose 1 TAB; Start 02/01/17 at 20: 30 Acetaminophen/ Hydrocodone Bitart ([place] (5/325)) 2 tab Q4H PRN PO PAIN LEVEL 7 -10; Start 02/01/17 at 20:30 Hydromorphone HCl (Dilaudid) 0.5 mg Q2 PRN IV PAIN Last administered on 16:14; Admin Dose 0.5 MG; Start 02/01/17 at 20:30 Hydromorphone HCl (Dilaudid) 1 mg Q2 PRN IV PAIN Last administered on 11:57; Admin Dose 1 MG; Start 02/01/17 at 20:30 Docusate Sodium (Colace) 100 mg BID PRN PO CONSTIPATION; Start 02/01/17 at 20: 30 Bisacodyl (Dulcolax Supp) 10 mg BID PRN [place] CONSTIPATION; Start 02/01/17 at 20: 30 Sodium Biphosphate/ Sodium Phosphate 133 ml 133 ml BID PRN [place] CONSTIPATION; Start 02/01/17 at 20:30 Metronidazole 100 ml @ 100 mls/hr Q8 IVPB Last administered on 02/15/17 05:56 ; Admin Dose 100 MLS/HR; Start 02/04/17 at 15:00 Vancomycin HCl 250 ml @ 125 mls/hr Q12H IVPB Last administered on 02/15/17 05: 56; Admin Dose 125 MLS/HR; Start 02/05/17 at 06:00 Meropenem (Merrem 500 Mg/ 100 ml (Pmx)) 100 ml @ 200 mls/hr Q8 IVPB Last administered on 02/15/17 05:57; Admin Dose 200 MLS/HR; Start 02/05/17 at 22:00 Acetaminophen (Tylenol Liquid) 650 mg Q4H PRN GTB PAIN AND OR ELEVATED TEMP Last administered on 02/15/17 02:52; Admin Dose 650 MG; Start 02/05/17 at 18:30 Salmeterol Xinafoate/ Fluticasone (Advair 250/50 Diskus) 1 inh BID INH Last administered on 02/12/17 09:03; Admin Dose 1 INH; Start 02/07/17 at 11:00; Status Future Hold IV Flush (NS 10 ml) 10 ml PRN PRN IV IV PROTOCOL; Start 02/07/17 at 14:30 Diphenhydramine HCl 25 mg 25 mg Q6H PRN IV itching ; Start 02/07/17 at 20:00 Ondansetron HCl/ Sodium Chloride (Zofran Inj/NS) 54 ml @ 216 mls/hr Q6H PRN IV NAUSEA AND/OR VOMITING; Start 02/09/17 at 11:30 Prednisone (Prednisone) 40 mg DAILY PO Last administered on 02/12/17 09:03; Admin Dose 40 MG; Start 02/11/17 at 09:00; Status Future Hold Lorazepam (Ativan) 1 mg Q2 PRN IV AGITATION/ANXIETY Last administered on 05:57; Admin Dose 1 MG; Start 02/10/17 at 17:00 Lorazepam (Ativan) 1 mg Q1HWA PRN IM AGITATION/ANXIETY; Start 02/10/17 at 19:00 Trimethobenzamide HCl 200 mg 200 mg Q6H PRN IM NAUSEA AND/OR VOMITING; Start at 19:30 Norepinephrine 16 mg/Dextrose 500 ml @ 1.87 mls/hr TITRATE IV ; Start 02/13/17 at 12:00; Status Future hold Propofol 100 ml @ 2.202 mls/ hr Q12H IV Last administered on 02/15/17 07:00; Admin Dose 13.212 MLS/HR; Start 02/13/17 at 10:00 Total Parenteral Nutrition (Tpn) 1,000 ml @ 40 mls/hr Q24H IV Last administered on 02/14/17 12:50; Admin Dose 40 MLS/HR; Start 02/14/17 at 12:00 Diagnostic Test (Pha) 1 ea 1 ea Q4 XX Last administered on 02/15/17t 05:55; Admin Dose 1 EA; Start 02/14/17 at 17:00 Caspofungin/ Sodium Chloride ([place]/NS) 250 ml @ 250 mls/hr ONCE IVPB ; Start 02/15/17 at 11:00; Stop 02/15/17 at 11:59 Procedures Procedures PROCEDURE: XR Chest. CLINICAL INDICATION: Verify central line placement. TECHNIQUE: Portable AP view of the chest was obtained. COMPARISON: 02/13/2017 FINDINGS: Interval retraction of the right internal jugular central venous access catheter from a satisfactory position in the superior vena cava to the thoracic inlet. The cardiomediastinal silhouette is within normal limits. Endotracheal tube remains in good position the distal tip projecting 5 cm above the hira. Distal tip of the nasogastric tube is below the diaphragm presumably within the stomach and unchanged. Bilateral pleural effusions slightly larger on the right with associated bibasilar atelectasis and mild interstitial edema is stable compared to the previous exam. There is no obvious pneumothorax. The osseous structures are intact with no evidence for acute abnormality. RPTAT:HJJR IMPRESSION: 1. Interval retraction of the right internal jugular approach central venous access catheter compared to the study of 02/13/2017, the distal tip now projecting at the thoracic inlet. 2. No evidence of pneumothorax. 3. Stable right larger than left pleural effusions and bilateral lower lobe consolidation likely atelectasis in this intubated patient, the endotracheal and nasogastric tubes remain in satisfactory radiographic positions. Physician Myron Date Time Electronically viewed and signed by Tyrell Schroeder Physician on 02/14/2017 16:33 JR/ CC: SUSAN SANCHEZ BOLATITO M. February 15, 2017 09:54
[2017-02-15] MEDS ORDERED: CASPOFUNGIN 70 MG in SOD CHLORIDE 0.9% 250 ML IVPB SCH (11:00)
[2017-02-15] MEDS ORDERED: MIDAZOLAM 1 MG/ML 2 ML INJ ONE (11:26)
[2017-02-15] MEDS ORDERED: FENTAnyl 50 MCG/ML VIAL ONE (11:26)
--- NOTE | 2017-02-15 11:26 | HPN ---
Date/Time of Note Date/Time of Note DATE: 02/15/17 TIME: 11:26 Interval H&P Admission Note Pt. seen H&P reviewed: No system changes Pt. seen H&P reviewed. No system changes (I attest that I have seen and examined the patient and reviewed the operation in detail, as well as its risks , benefits and alternatives of the operation). I attest that I have seen and examined the patient and reviewed in detail the operation, and its associated risks, benefits and alternative. I have answered all the patient's questions to the best of my ability and the patient wishes to proceed. Please refer to rest of electronic medical record for additional updates. TI HILTON M.D. February 15, 2017 11:26
[2017-02-15] MEDS ORDERED: PROPOFOL 20 ML ONE (12:13)
[2017-02-15] MEDS ORDERED: FENTAnyl 50 MCG/ML VIAL IV PRN (12:30)
--- NOTE | 2017-02-15 13:20 | OPR ---
Date/Time of Note Date/Time of Note DATE: 02/15/17 TIME: 13:06 Operative Report Operative\Procedure Findings [facility] OPERATIVE NOTE DATE OF OPERATION: 02/15/2017 PLACE OF SERVICE: [facility] PREOPERATIVE DIAGNOSES: 1. Crohn disease with perforation of sigmoid colon and sepsis. S/p an otherwise uncomplicated diagnostic laparoscopy was converted first to hand assist and then to open exploration when perforated sigmoid colon was found and it was resected with a Deena type procedure and end colostomy as well as core needle liver biopsy, segment 5, due to presence of fatty liver disease, lysis of adhesions, and abdominal lavage on 02/01/17. Complicated by respiratory failure, return trip to ICU and fascia dehiscence. 2. Repair of a fistula approximately 5 years ago. 3. Torn meniscus on the left knee status post repair. POSTOPERATIVE DIAGNOSES 1. Crohn disease with perforation of sigmoid colon and sepsis. S/p an otherwise uncomplicated diagnostic laparoscopy was converted first to hand assist and then to open exploration when perforated sigmoid colon was found and it was resected with a Deena type procedure and end colostomy as well as core needle liver biopsy, segment 5, due to presence of fatty liver disease, lysis of adhesions, and abdominal lavage on 02/01/17. Complicated by respiratory failure, return trip to ICU and fascia dehiscence. 2. Repair of a fistula approximately 5 years ago. 3. Torn meniscus on the left knee status post repair. OPERATION PERFORMED: 1. Exploration of abdomen through recent laparotomy 2. Closure of fascia 4. Abdominal lavage. SURGEON: Ti Hilton MD BRAND SALES MANAGER: None. ANESTHESIA: General endotracheal tube anesthesia. ANESTHESIOLOGIST: Gwendolyn Ruffin MD BRIEF SUMMARY: An otherwise uncomplicated exploration of abdomen through recent laparotomy, closure of fascia and abdominal lavage was performed. Updated Clinical Summary: A very pleasant 46-year-old gentleman with history of Crohn's disease as well as prior surgery for anal fistula approximately 5 years ago, and a torn meniscus repair on the left knee, presenting with abdominal pain associated with a few weeks' duration of diarrhea. S/p an otherwise uncomplicated diagnostic laparoscopy was converted first to hand assist and then to open exploration when perforated sigmoid colon was found and it was resected with a Deena type procedure and end colostomy as well as core needle liver biopsy, segment 5, due to presence of fatty liver disease, lysis of adhesions, and abdominal lavage on 02/01/17. Failed to wean off the vent through 02/06/17. PE was evaluated 02/07/[address] angio and no evidence found. CT abd/pelvis also did not show actionable findings (no abscess; bowel thickening somewhat expected). Extubated 02/07/17. RN MOBILE called early am 02/13/17 with a few minutes coding, requiring intubation and transfer to ICU. Fortunately, mentally appears to be intact and not on pressors. Lactic acid and CO2 normal with benign appearing abd and viable ostomy. Complicated by fascia dehiscence. COMORBIDITIES: 1. Crohn disease with perforation of sigmoid colon and sepsis. S/p an otherwise uncomplicated diagnostic laparoscopy was converted first to hand assist and then to open exploration when perforated sigmoid colon was found and it was resected with a Deena type procedure and end colostomy as well as core needle liver biopsy, segment 5, due to presence of fatty liver disease, lysis of adhesions, and abdominal lavage on 02/01/17. Complicated by respiratory failure, return trip to ICU and fascia dehiscence. 2. Repair of a fistula approximately 5 years ago. 3. Torn meniscus on the left knee status post repair. BRIEF HISTORY: The patient is a very pleasant 46-year-old gentleman with history of Crohn's disease as well as prior surgery for anal fistula approximately 5 years ago, and a torn meniscus repair on the left knee, presenting with abdominal pain associated with a few weeks' duration of diarrhea. S/p an otherwise uncomplicated diagnostic laparoscopy was converted first to hand assist and then to open exploration when perforated sigmoid colon was found and it was resected with a Deena type procedure and end colostomy as well as core needle liver biopsy, segment 5, due to presence of fatty liver disease, lysis of adhesions, and abdominal lavage on 02/01/17. Failed to wean off the vent through 02/06/17. PE was evaluated 02/07/[address] angio and no evidence found. CT abd/pelvis also did not show actionable findings (no abscess; bowel thickening somewhat expected). Extubated 02/07/17. RN MOBILE called early am 02/13/17 with a few minutes coding, requiring intubation and transfer to ICU. Fortunately, mentally appears to be intact and not on pressors. Lactic acid and CO2 normal with benign appearing abd and viable ostomy. I had consented the patient's father for an exploration with possible need for temporary abdominal closure vs. possible primary repair of the fascia dehiscence. We reviewed the risks, benefits, and alternatives, and after careful consideration of all of these options, the patient's father appeared to understand and agreed with plans. Note that the patient himself was not capable of giving consent due to critical illness. STATEMENT OF INFORMED CONSENT: The patient's father appeared to understand the risk of the operation to include, but not be limited to risk of postoperative pain, scar tissue, possible infection or bleeding requiring other interventions such as placement of drainage catheters under x-ray guidance or even operative interventions, possible need for bowel resection and ostomy placement, and further need for surgical takedown of the ostomy, possible injury to surrounding structures including bowel, bladder, bile duct, or blood vessels, or other solid organs such as liver, pancreas, kidneys, or other organs causing significant increase in morbidity and chance of mortality, and possibly requiring other interventions. We also discussed specifically about increased risk for hernia development in the future, bowel erosion, perforation, and enterocutaneous fistulas. We also discussed the potential of more serious problems, such significant pulmonary embolism causing major pulmonary dysfunction, myocardial arrhythmias, and infarctions, and even . We also discussed potential of blood transfusions, although I thought that this chance was very low. The patient's father appeared to understand all the above and agreed with the plans. OPERATIVE DETAILS: After obtaining informed consent, the patient was brought into the operating room and was placed in a normal supine position where successful general endotracheal tube anesthesia was performed. Intravenous access was assured by anesthesia and intravenous fluids and intravenous antimicrobials were continued. We prepped and draped the patient's abdominal skin from the nipple line down to the level of the groins in the usual sterile fashion after placing him in a supine stirrups position. We isolated the colostomy site with a 10-10 drape. We then called a surgical time-out where patient's identification, date of , nature of the operation, presence of needed antimicrobials, presence of needed equipment, and any other concerns were reviewed and agreed upon by all members of the operating room team. I then inspected the midline fascia after taking off the few magdalena that were at the most cephalad and caudad portions of the midline incision. The midline fascia indeed appeared to have dehisced with the middle portion open approximately 90% of the length of the length of the incision. The original PDS was still intact and the fascia appeared to have fallen apart at the insertion points. Note that the intestines did not appear to be distended at this stage. I removed the middle portion of the original PDS suture and opened the laparotomy site to inspect the bowel underneath. All appeared viable. I also was able to get into the upper and lower quadrants and did gentle lavage of these areas (around 1 liter of normal saline). Clear fluid was present and no sign of abscess. I then placed interrupted [id number] #1 PDS sutures to close the dehisced fascia, followed by replacement of a few magdalena around the umbilicus to reapproximate the skin there, as well as 2 magdalena in the most cephalad portion of the skin incision, followed by placing moist Kerlix gauze in the wound. I also placed a figure-of eight 0-Vicryl suture to close the previous drain site fascia under direct visualization, but keeping the skip open. I then fashioned a colostomy bag over the viable and pink appearing colostomy site. Light dressing was then applied. At the end of the operation, both the sponge count and needle count were reported correct x2. The patient reportedly tolerated the procedure very well without any major cardiac or pulmonary issues. ESTIMATED BLOOD LOSS: 5 mL. SPECIMENS: None COMPLICATIONS: None. DISPOSITION: The patient is to the recovery area and then transfer to the ICU. TI HILTON M.D. February 15, 2017 13:19
--- NOTE | 2017-02-15 13:59 | PN ---
DATE: 02/15/2017 INFECTIOUS DISEASE PROGRESS NOTE SUBJECTIVE: No acute changes. No fevers. The patient is lying comfortably in bed, intubated, crystal ryder. He is on TPN. OBJECTIVE: VITAL SIGNS: Temperature 98.3, pulse 98, respirations 28, blood pressure 115/78, saturation 98 on 5 0 FIO2. WBC 19, H and H 8.2 and 25.4, platelets 375, neutrophils 92.6, BUN 16, creatinine 0.63. MICROBIOLOGY: Intra-abdominal fluid cultures on February 01 grew enterococcus strep, Proteus mirabil is and E. coli. DIAGNOSTICS: Chest x-ray this morning revealed unchanged atelectasis at the lung bases. INDWELLINGS: Endotracheal tube, NG tube, right upper extremity PICC line placed on February 14. Left -sided abdominal drainage catheter, colostomy. ANTIMICROBIALS: The patient is on 1. Cancidas. 2. Meropenem. 3. Flagyl. 4. Vancomycin. PHYSICAL EXAMINATION: GENERAL: Well-developed, middle-aged white man who is lying comfortably in bed. HEENT: Head atraumatic, normocephalic. Sclerae anicteric. Buccal mucosa dry. NECK: Supple, trachea midline. CHEST: Rise symmetrical. Breath sounds diminished to bases. HEART: S1, S2. ABDOMEN: Distended. Bowel tones hypoactive. EXTREMITIES: With trace edema. SKIN: With anasarca. ASSESSMENT: 1. Sepsis with persistent leukocytosis. 2. Status post perforated viscus repair. 3. Postop respiratory failure. 4. History of Crohn's disease. 5. Status post CT-guided left lower quadrant fluid collection drainage with pigtail catheter placem ent on 01/14/2017. PLAN: The patient remains hemodynamically stable, clinically unchanged. Pending exploration of the abdominal today. Continue on current antibiotics. Dictated By: THOMAS ELLIS RUBBER MOULDING MACHINE OPERATOR for MICKY RAMÍREZ/YAN Conf#: [id number] DID#: [id number]
--- NOTE | 2017-02-15 14:00 | PN ---
Date/Time of Note Date/Time of Note DATE: 02/15/17 TIME: 13:52 Assessment/Plan VTE Prophylaxis VTE Prophylaxis Intervention: SCD's Lines/Catheters IV [facility]atheter [facility] (from [facility]): PICC Line Central line still needed: Yes Urinary Cath still in place: Yes Reason Cath still needed: urinary retention Assessment/Plan Assessment/Plan S/P exploration Fascial dehiscence Perforated sigmoid colon * Laparoscopic exploration,open sigmoid colectomy with Deena end colostomy with liver biopsy segment V h/o Crohn's disease Thrombocytopenia Liver Cirrhosis Plan: * continue present management * will reevaluate for Crohn disease once recovered from surgery Subjective 24 Hr Interval Summary Free Text/Dictation * Course reviewed with RN * Patient seen and examined * S/P reexploration * Patient orally intubated,on ventilator Exam/Review of Systems Vital Signs Vitals Vital Signs Date Time Temp Pulse Resp B/P Pulse Ox O2 Delivery O2 Flow Rate FiO2 02/15/17 13:41 70 02/15/17 13:13 112 22 100 02/15/17 11:30 98.6 104/74 02/15/17 07:30 Mechanical Ventilator 02/13/17 04:30 15.0 Intake and Output 02/14/17 02/14/17 02/15/17 15:00 23:00 07:00 Intake Total 721.6 ml 226.4 ml Output Total 400 ml 670 ml 470 ml Balance 321.6 ml -443.6 ml -470 ml Exam Constitutional: frail Head: normocephalic Neck: non-tender, supple Respiratory: diminished breath sounds, other (on ventilator) Cardiovascular: nl pulses, regular rate and rhythm Gastrointestinal: distended, other (colostomy intact), soft Genitourinary - Male: other (abbott catheter) Extremities: normal pulses Skin: nl turgor Results Result Diagram: 02/15/17 0630 02/15/17 0630 Results 24 hrs Laboratory Tests Test 02/14/17 16:00 02/14/17 16:35 02/14/17 17:54 02/14/17 21:43 Hemoglobin 8.2 L Hematocrit 25.4 L Vancomycin Level Trough 13.6 Bedside Glucose 88 88 Test 02/14/17 22:53 02/15/17 01:30 02/15/17 05:55 02/15/17 06:30 Hemoglobin 7.3 L 8.2 L Hematocrit 22.7 L 25.4 L Bedside Glucose 100 109 White Blood Count 19.0 H Red Blood Count 2.83 L Mean Corpuscular Volume 89.8 Mean Corpuscular Hemoglobin 29.0 Mean Corpuscular Hemoglobin Concent 32.3 Red Cell Distribution Width 15.4 H Platelet Count 375 Mean Platelet Volume 11.6 H Neutrophils % 92.6 H Lymphocytes % 2.6 L Monocytes % 2.5 Eosinophils % 0.7 Basophils % 0.1 Nucleated Red Blood Cells % 0.0 Neutrophils # 17.6 H Lymphocytes # 0.5 L Monocytes # 0.5 Eosinophils # 0.1 Basophils # 0.0 Nucleated Red Blood Cells # 0.0 Prothrombin Time 16.1 H Prothrombin Time Ratio 1.3 INR International Normalized Ratio 1.28 Sodium Level 146 H Potassium Level 3.4 L Chloride Level 113 H Carbon Dioxide Level 26 Anion Gap 10 Blood Urea Nitrogen 16 Creatinine 0.63 Glucose Level 106 Calcium Level 7.1 L Phosphorus Level 3.2 # Magnesium Level 1.7 Total Bilirubin 0.3 Direct Bilirubin 0.00 Indirect Bilirubin 0.3 Aspartate Amino Transf (AST/SGOT) 18 Alanine Aminotransferase (ALT/SGPT) 26 Alkaline Phosphatase 75 Total Protein 3.9 L Albumin 1.6 L Globulin 2.30 Albumin/Globulin Ratio 0.69 Prealbumin 5.8 L Triglycerides Level 178 H Cholesterol Level < 50 L LDL Cholesterol, Calculated HDL Cholesterol 11 L Cholesterol/HDL Ratio Test 02/15/17 08:53 Bedside Glucose 116 Medications Medications Current Medications Hydromorphone HCl (Dilaudid) 1 mg Q4H PRN IV pain Last administered on 19:56; Admin Dose 1 MG; Start 02/01/17 at 03:30 Pantoprazole (Protonix Iv) 40 mg DAILY@06 IV Last administered on 02/15/17 05: 56; Admin Dose 40 MG; Start 02/01/17 at 06:00 Acetaminophen/ Hydrocodone Bitart ([place] (5/325)) 1 tab Q4H PRN PO PAIN LEVEL 4 -7 Last administered on 02/09/17 18:48; Admin Dose 1 TAB; Start 02/01/17 at 20: 30 Acetaminophen/ Hydrocodone Bitart ([place] (5/325)) 2 tab Q4H PRN PO PAIN LEVEL 7 -10; Start 02/01/17 at 20:30 Hydromorphone HCl (Dilaudid) 0.5 mg Q2 PRN IV PAIN Last administered on 16:14; Admin Dose 0.5 MG; Start 02/01/17 at 20:30 Hydromorphone HCl (Dilaudid) 1 mg Q2 PRN IV PAIN Last administered on 11:57; Admin Dose 1 MG; Start 02/01/17 at 20:30 Docusate Sodium (Colace) 100 mg BID PRN PO CONSTIPATION; Start 02/01/17 at 20: 30 Bisacodyl (Dulcolax Supp) 10 mg BID PRN [place] CONSTIPATION; Start 02/01/17 at 20: 30 Sodium Biphosphate/ Sodium Phosphate 133 ml 133 ml BID PRN [place] CONSTIPATION; Start 02/01/17 at 20:30 Metronidazole 100 ml @ 100 mls/hr Q8 IVPB Last administered on 02/15/17 05:56 ; Admin Dose 100 MLS/HR; Start 02/04/17 at 15:00 Vancomycin HCl 250 ml @ 125 mls/hr Q12H IVPB Last administered on 02/15/17 05: 56; Admin Dose 125 MLS/HR; Start 02/05/17 at 06:00 Meropenem (Merrem 500 Mg/ 100 ml (Pmx)) 100 ml @ 200 mls/hr Q8 IVPB Last administered on 02/15/17 05:57; Admin Dose 200 MLS/HR; Start 02/05/17 at 22:00 Acetaminophen (Tylenol Liquid) 650 mg Q4H PRN GTB PAIN AND OR ELEVATED TEMP Last administered on 02/15/17 02:52; Admin Dose 650 MG; Start 02/05/17 at 18:30 Salmeterol Xinafoate/ Fluticasone (Advair 250/50 Diskus) 1 inh BID INH Last administered on 02/12/17 09:03; Admin Dose 1 INH; Start 02/07/17 at 11:00; Status Future Hold IV Flush (NS 10 ml) 10 ml PRN PRN IV IV PROTOCOL; Start 02/07/17 at 14:30 Diphenhydramine HCl 25 mg 25 mg Q6H PRN IV itching ; Start 02/07/17 at 20:00 Ondansetron HCl/ Sodium Chloride (Zofran Inj/NS) 54 ml @ 216 mls/hr Q6H PRN IV NAUSEA AND/OR VOMITING; Start 02/09/17 at 11:30 Prednisone (Prednisone) 40 mg DAILY PO Last administered on 02/12/17 09:03; Admin Dose 40 MG; Start 02/11/17 at 09:00; Status Future Hold Lorazepam (Ativan) 1 mg Q2 PRN IV AGITATION/ANXIETY Last administered on 05:57; Admin Dose 1 MG; Start 02/10/17 at 17:00 Lorazepam (Ativan) 1 mg Q1HWA PRN IM AGITATION/ANXIETY; Start 02/10/17 at 19:00 Trimethobenzamide HCl 200 mg 200 mg Q6H PRN IM NAUSEA AND/OR VOMITING; Start at 19:30 Norepinephrine 16 mg/Dextrose 500 ml @ 1.87 mls/hr TITRATE IV ; Start 02/13/17 at 12:00; Status Future hold Propofol 100 ml @ 2.202 mls/ hr Q12H IV Last administered on 02/15/17 07:00; Admin Dose 13.212 MLS/HR; Start 02/13/17 at 10:00 Total Parenteral Nutrition (Tpn) 1,000 ml @ 40 mls/hr Q24H IV Last administered on 02/14/17 12:50; Admin Dose 40 MLS/HR; Start 02/14/17 at 12:00 Diagnostic Test (Pha) 1 ea 1 ea Q4 XX Last administered on 02/15/17 05:55; Admin Dose 1 EA; Start 02/14/17 at 17:00 Potassium Chloride (KCl 40 MEQ/250 ML NS) 250 ml @ 62.5 mls/hr ONCE ONCE IVPB Last administered on 02/15/17 13:35; Admin Dose 62.5 MLS/HR; Start 02/15/17 at 10:00; Stop 02/15/17 at 13:59 SANDRA DAVIS MD February 15, 2017 14:00
[2017-02-15] MEDS: TPN 1,000 ML IV SCH ×2 (14:10→22:30)
--- NOTE | 2017-02-15 16:06 | CONS ---
Date/Time of Note Date/Time of Note DATE: 02/15/17 TIME: 15:59 Assessment/Plan Assessment/Plan Additional Assessment/Plan Perforated colon status post surgery Severe sepsis Respiratory failure-reintubated Low normal ejection fraction 50% Volume overload Crohn's disease -Patient with respiratory failure and bradycardic cardiopulmonary arrest over the weekend. Transfer to ICU. Status post repeat abdominal surgery today. Maintain potassium above 4.0 and magnesium above 2.0. Blood pressure trend improving. Consultation Date/Type/Reason Admit Date/Time Feb 01, 2017 at 03:10 Initial Consult Date 02/02/17 Type of Consultation: cv Referring Provider: VINCE PADGETT 24 HR Interval Summary Free Text/Dictation Patient status post repeat abdominal surgery today. No new cardiac issues as per nursing staff Exam/Review of Systems Vital Signs Vitals Vital Signs Date Time Temp Pulse Resp B/P Pulse Ox O2 Delivery O2 Flow Rate FiO2 02/15/17 15:11 89 19 100 60 02/15/17 14:00 100/69 02/15/17 11:30 98.6 02/15/17 07:30 Mechanical Ventilator 02/13/17 04:30 15.0 Intake and Output 02/14/17 02/14/17 02/15/17 15:00 23:00 07:00 Intake Total 721.6 ml 226.4 ml Output Total 400 ml 670 ml 470 ml Balance 321.6 ml -443.6 ml -470 ml Exam Intubated, no apparent distress Head: normocephalic ENMT: intubated Respiratory: other (Coarse breath sounds bilaterally, no wheezing) Cardiovascular: other (S1-S2 heard), regular rate and rhythm Gastrointestinal: bowel sounds, other (No grimacing), soft Extremities: edema Results Result Diagram: 02/15/17 0630 02/15/17 0630 Results 24 hrs Laboratory Tests Test 02/14/17 16:00 02/14/17 16:35 02/14/17 17:54 02/14/17 21:43 Hemoglobin 8.2 L Hematocrit 25.4 L Vancomycin Level Trough 13.6 Bedside Glucose 88 88 Test 02/14/17 22:53 02/15/17 01:30 02/15/17 05:55 02/15/17 06:30 Hemoglobin 7.3 L 8.2 L Hematocrit 22.7 L 25.4 L Bedside Glucose 100 109 White Blood Count 19.0 H Red Blood Count 2.83 L Mean Corpuscular Volume 89.8 Mean Corpuscular Hemoglobin 29.0 Mean Corpuscular Hemoglobin Concent 32.3 Red Cell Distribution Width 15.4 H Platelet Count 375 Mean Platelet Volume 11.6 H Neutrophils % 92.6 H Lymphocytes % 2.6 L Monocytes % 2.5 Eosinophils % 0.7 Basophils % 0.1 Nucleated Red Blood Cells % 0.0 Neutrophils # 17.6 H Lymphocytes # 0.5 L Monocytes # 0.5 Eosinophils # 0.1 Basophils # 0.0 Nucleated Red Blood Cells # 0.0 Prothrombin Time 16.1 H Prothrombin Time Ratio 1.3 INR International Normalized Ratio 1.28 Sodium Level 146 H Potassium Level 3.4 L Chloride Level 113 H Carbon Dioxide Level 26 Anion Gap 10 Blood Urea Nitrogen 16 Creatinine 0.63 Glucose Level 106 Calcium Level 7.1 L Phosphorus Level 3.2 # Magnesium Level 1.7 Total Bilirubin 0.3 Direct Bilirubin 0.00 Indirect Bilirubin 0.3 Aspartate Amino Transf (AST/SGOT) 18 Alanine Aminotransferase (ALT/SGPT) 26 Alkaline Phosphatase 75 Total Protein 3.9 L Albumin 1.6 L Globulin 2.30 Albumin/Globulin Ratio 0.69 Prealbumin 5.8 L Triglycerides Level 178 H Cholesterol Level < 50 L LDL Cholesterol, Calculated HDL Cholesterol 11 L Cholesterol/HDL Ratio Test 02/15/17 08:53 02/15/17 14:01 Bedside Glucose 116 113 Medications Medications Current Medications Hydromorphone HCl (Dilaudid) 1 mg Q4H PRN IV pain Last administered on 19:56; Admin Dose 1 MG; Start 02/01/17 at 03:30 Pantoprazole (Protonix Iv) 40 mg DAILY@06 IV Last administered on 02/15/17 05: 56; Admin Dose 40 MG; Start 02/01/17 at 06:00 Acetaminophen/ Hydrocodone Bitart ([place] (5/325)) 1 tab Q4H PRN PO PAIN LEVEL 4 -7 Last administered on 02/09/17 18:48; Admin Dose 1 TAB; Start 02/01/17 at 20: 30 Acetaminophen/ Hydrocodone Bitart ([place] (5/325)) 2 tab Q4H PRN PO PAIN LEVEL 7 -10; Start 02/01/17 at 20:30 Hydromorphone HCl (Dilaudid) 0.5 mg Q2 PRN IV PAIN Last administered on 16:14; Admin Dose 0.5 MG; Start 02/01/17 at 20:30 Hydromorphone HCl (Dilaudid) 1 mg Q2 PRN IV PAIN Last administered on 11:57; Admin Dose 1 MG; Start 02/01/17 at 20:30 Docusate Sodium (Colace) 100 mg BID PRN PO CONSTIPATION; Start 02/01/17 at 20: 30 Bisacodyl (Dulcolax Supp) 10 mg BID PRN [place] CONSTIPATION; Start 02/01/17 at 20: 30 Sodium Biphosphate/ Sodium Phosphate 133 ml 133 ml BID PRN [place] CONSTIPATION; Start 02/01/17 at 20:30 Metronidazole 100 ml @ 100 mls/hr Q8 IVPB Last administered on 02/15/17 15:41 ; Admin Dose 100 MLS/HR; Start 02/04/17 at 15:00 Vancomycin HCl 250 ml @ 125 mls/hr Q12H IVPB Last administered on 02/15/17 05: 56; Admin Dose 125 MLS/HR; Start 02/05/17 at 06:00 Meropenem (Merrem 500 Mg/ 100 ml (Pmx)) 100 ml @ 200 mls/hr Q8 IVPB Last administered on 02/15/17 13:54; Admin Dose 200 MLS/HR; Start 02/05/17 at 22:00 Acetaminophen (Tylenol Liquid) 650 mg Q4H PRN GTB PAIN AND OR ELEVATED TEMP Last administered on 02/15/17 02:52; Admin Dose 650 MG; Start 02/05/17 at 18:30 Salmeterol Xinafoate/ Fluticasone (Advair 250/50 Diskus) 1 inh BID INH Last administered on 02/12/17 09:03; Admin Dose 1 INH; Start 02/07/17 at 11:00; Status Future Hold IV Flush (NS 10 ml) 10 ml PRN PRN IV IV PROTOCOL; Start 02/07/17 at 14:30 Diphenhydramine HCl 25 mg 25 mg Q6H PRN IV itching ; Start 02/07/17 at 20:00 Ondansetron HCl/ Sodium Chloride (Zofran Inj/NS) 54 ml @ 216 mls/hr Q6H PRN IV NAUSEA AND/OR VOMITING; Start 02/09/17 at 11:30 Prednisone (Prednisone) 40 mg DAILY PO Last administered on 02/12/17 09:03; Admin Dose 40 MG; Start 02/11/17 at 09:00; Status Future Hold Lorazepam (Ativan) 1 mg Q2 PRN IV AGITATION/ANXIETY Last administered on 05:57; Admin Dose 1 MG; Start 02/10/17 at 17:00 Lorazepam (Ativan) 1 mg Q1HWA PRN IM AGITATION/ANXIETY; Start 02/10/17 at 19:00 Trimethobenzamide HCl 200 mg 200 mg Q6H PRN IM NAUSEA AND/OR VOMITING; Start at 19:30 Norepinephrine 16 mg/Dextrose 500 ml @ 1.87 mls/hr TITRATE IV ; Start 02/13/17 at 12:00; Status Future hold Propofol 100 ml @ 2.202 mls/ hr Q12H IV Last administered on 02/15/17 15:40; Admin Dose 13.212 MLS/HR; Start 02/13/17 at 10:00 Total Parenteral Nutrition (Tpn) 1,000 ml @ 40 mls/hr Q24H IV Last administered on 02/15/17 14:10; Admin Dose 40 MLS/HR; Start 02/14/17 at 12:00 Diagnostic Test (Pha) (Accu-Chek) 1 ea Q4 XX Last administered on 02/15/17 05: 55; Admin Dose 1 EA; Start 02/14/17 at 17:00 Keith Gandhi DO February 15, 2017 16:06
[2017-02-15 16:20] LABS: HEMOGLOBIN 8.5 g/dl (14.0-18.0)
[2017-02-15 23:20] LABS: HEMOGLOBIN 8.5 g/dl (14.0-18.0)
[2017-02-16] VITALS (50 sets, daily range): BP systolic 92–125; BP diastolic 60–81; PULSE 83–100; RESP 10–35
[2017-02-16] MEDS: ACCU-CHEK XX SCH ×6 (01:19→21:44)
[2017-02-16] MEDS: LORAZEPAM 2 MG INJ IV PRN (01:51)
[2017-02-16] MEDS: PROPOFOL 100 ML IV SCH ×3 (06:00→17:31)
[2017-02-16] MEDS: MEROPENEM 500 MG/100 ML (PMX) 100 ML IVPB SCH ×3 (06:00→21:37)
[2017-02-16] MEDS: VANCOMYCIN 1 GM in NS 250 ML IVPB SCH ×2 (06:01→17:30)
[2017-02-16] MEDS: PANTOPRAZOLE 40 MG INJ IV SCH (06:01)
[2017-02-16] MEDS: metroNIDAZOLE 500 MG/NS (PMX) 100 ML IVPB SCH ×3 (06:01→21:37)
[2017-02-16 07:26] LABS: CREATININE 0.66 mg/dl (0.61-1.24)
[2017-02-16 07:27] LABS: CALCIUM 7.1 mg/dl (8.4-10.2)
[2017-02-16 07:40] LABS: MAGNESIUM 1.6 mg/dl (1.7-2.5); PHOSPHORUS 2.9 mg/dl (2.5-4.9)
[2017-02-16 07:56] LABS: POTASSIUM 2.9 mmol/L (3.5-5.1)
--- NOTE | 2017-02-16 08:10 | RADRPT ---
PROCEDURE: Ultrasound guidance for placement of needle in right upper extremity vein. CLINICAL INDICATION: Venous access. TECHNIQUE: Limited sonography of the right upper extremity was performed. Ultrasound images were recorded and stored in the patient's medical record. COMPARISON: None. FINDINGS: The ultrasound images demonstrate a patent right upper extremity vein. The PICC line was inserted b y the PICC line nurse. IMPRESSION: 1. Ultrasound guidance for a needle placement in a right upper extremity vein. 2. The visualized right upper extremity vein is patent. RPTAT: QQ .Rogelio Vera MD, MD Date Time Electronically viewed and signed by .Rogelio Vera MD, on 02/16/2017 08:10 .R/
[2017-02-16] MEDS: POTASSIUM CHLORIDE 250 ML IVPB SCH ×2 (08:18→12:33)
[2017-02-16] MEDS ORDERED: MAGNESIUM SULFATE 1 GM/D5W 100 ML IVPB ONE (08:30)
--- NOTE | 2017-02-16 10:02 | CONS ---
Date/Time of Note Date/Time of Note DATE: 02/16/17 TIME: 09:58 Assessment/Plan Assessment/Plan Additional Assessment/Plan Ventilator settings; AC of 18, tidal volume 500, PEEP of 5, 50% FiO2. Patient is on propofol at 30 mics per milligram per minute. BP and also is being administered.. Assessment recommendations; 1. Patient admitted for acute abdomen discovered to have sigmoid diverticulitis with perforation status post laparoscopic sigmoidectomy with colostomy. 2. Status post laparotomy yesterday. However no abscess was discovered. Patient underwent abdominal cavity irrigation. 3. Bilateral pleural effusions. 4. Persistent ileus. Continue current treatment. Obtain a chest x-ray. Once x-ray is done, patient to be evaluated for possible weaning from ventilator. Meanwhile continue current antibiotics, other supportive measures. Repeat CBC. Consultation Date/Type/Reason Admit Date/Time Feb 01, 2017 at 03:10 Initial Consult Date 02/02/17 Type of Consultation: Pulmonary/critical care Referring Provider: VINCE PADGETT 24 HR Interval Summary Free Text/Dictation Patient's condition remains critical. Underwent exploratory laparotomy yesterday however no abscess was discovered. Patient underwent abdominal cavity irrigation. General exam; young male, on ventilator, orally intubated, awake and alert. Currently in no distress. Exam/Review of Systems Vital Signs Vitals Vital Signs Date Time Temp Pulse Resp B/P Pulse Ox O2 Delivery O2 Flow Rate FiO2 02/16/17 09:30 93 29 92/69 98 Mechanical Ventilator 02/16/17 08:00 50 02/16/17 07:45 98.3 02/13/17 04:30 15.0 Intake and Output 02/15/17 02/15/17 02/16/17 15:00 23:00 07:00 Intake Total 943.908 ml 962.484 ml 620.000 ml Output Total 405 ml 360 ml 275 ml Balance 538.908 ml 602.484 ml 345.000 ml Exam HEENT exam is; supple neck, or intubated, no JVD. No lymphadenopathy. Midline trachea. No thyromegaly. No neck masses. Pupils are small bilaterally. Chest examination; diminished breath sounds lower lobes bilaterally. Upper lobes are clear to auscultation. S1-S2 audible, no murmurs. Regular rhythm. Abdomen examination; soft, midline dressing in place. STEVE drain in place. Colostomy in place. Bowel sounds are absent. Extremity examination; no peripheral edema in upper extremities. Lower extremities reveal 2+ bilateral pitting edema. 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 Results Result Diagram: 02/15/17 2300 02/16/17 0500 Results 24 hrs Laboratory Tests Test 02/15/17 14:01 02/15/17 16:10 02/15/17 18:18 02/15/17 22:02 Bedside Glucose 113 103 99 Hemoglobin 8.5 L Hematocrit 26.0 L Test 02/15/17 23:00 02/16/17 01:17 02/16/17 04:58 02/16/17 05:00 Hemoglobin 8.5 L Hematocrit 26.0 L Bedside Glucose 109 Lab Scanned Report BLOOD TRANSFUSION Sodium Level 145 H Potassium Level 2.9 *L Chloride Level 112 H Carbon Dioxide Level 26 Anion Gap 10 Blood Urea Nitrogen 16 Creatinine 0.66 Glucose Level 91 Calcium Level 7.1 L Phosphorus Level 2.9 Magnesium Level 1.6 L Test 02/16/17 05:35 02/16/17 08:41 Bedside Glucose 122 113 Medications Medications Current Medications Hydromorphone HCl (Dilaudid) 1 mg Q4H PRN IV pain Last administered on 19:56; Admin Dose 1 MG; Start 02/01/17 at 03:30 Pantoprazole (Protonix Iv) 40 mg DAILY@06 IV Last administered on 02/16/17 06: 01; Admin Dose 40 MG; Start 02/01/17 at 06:00 Acetaminophen/ Hydrocodone Bitart ([place] (5/325)) 1 tab Q4H PRN PO PAIN LEVEL 4 -7 Last administered on 02/09/17 18:48; Admin Dose 1 TAB; Start 02/01/17 at 20: 30 Acetaminophen/ Hydrocodone Bitart ([place] (5/325)) 2 tab Q4H PRN PO PAIN LEVEL 7 -10; Start 02/01/17 at 20:30 Hydromorphone HCl (Dilaudid) 0.5 mg Q2 PRN IV PAIN Last administered on 16:14; Admin Dose 0.5 MG; Start 02/01/17 at 20:30 Hydromorphone HCl (Dilaudid) 1 mg Q2 PRN IV PAIN Last administered on 11:57; Admin Dose 1 MG; Start 02/01/17 at 20:30 Docusate Sodium (Colace) 100 mg BID PRN PO CONSTIPATION; Start 02/01/17 at 20: 30 Bisacodyl (Dulcolax Supp) 10 mg BID PRN [place] CONSTIPATION; Start 02/01/17 at 20: 30 Sodium Biphosphate/ Sodium Phosphate 133 ml 133 ml BID PRN [place] CONSTIPATION; Start 02/01/17 at 20:30 Metronidazole 100 ml @ 100 mls/hr Q8 IVPB Last administered on 02/16/17 06:01 ; Admin Dose 100 MLS/HR; Start 02/04/17 at 15:00 Vancomycin HCl 250 ml @ 125 mls/hr Q12H IVPB Last administered on 02/16/17 06: 01; Admin Dose 125 MLS/HR; Start 02/05/17 at 06:00 Meropenem (Merrem 500 Mg/ 100 ml (Pmx)) 100 ml @ 200 mls/hr Q8 IVPB Last administered on 02/16/17 06:00; Admin Dose 200 MLS/HR; Start 02/05/17 at 22:00 Acetaminophen (Tylenol Liquid) 650 mg Q4H PRN GTB PAIN AND OR ELEVATED TEMP Last administered on 02/15/17 02:52; Admin Dose 650 MG; Start 02/05/17 at 18:30 Salmeterol Xinafoate/ Fluticasone (Advair 250/50 Diskus) 1 inh BID INH Last administered on 02/12/17 09:03; Admin Dose 1 INH; Start 02/07/17 at 11:00; Status Future Hold IV Flush (NS 10 ml) 10 ml PRN PRN IV IV PROTOCOL; Start 02/07/17 at 14:30 Diphenhydramine HCl 25 mg 25 mg Q6H PRN IV itching ; Start 02/07/17 at 20:00 Ondansetron HCl/ Sodium Chloride (Zofran Inj/NS) 54 ml @ 216 mls/hr Q6H PRN IV NAUSEA AND/OR VOMITING; Start 02/09/17 at 11:30 Prednisone (Prednisone) 40 mg DAILY PO Last administered on 02/12/17 09:03; Admin Dose 40 MG; Start 02/11/17 at 09:00; Status Future Hold Lorazepam (Ativan) 1 mg Q2 PRN IV AGITATION/ANXIETY Last administered on 01:51; Admin Dose 1 MG; Start 02/10/17 at 17:00 Lorazepam (Ativan) 1 mg Q1HWA PRN IM AGITATION/ANXIETY; Start 02/10/17 at 19:00 Trimethobenzamide HCl 200 mg 200 mg Q6H PRN IM NAUSEA AND/OR VOMITING; Start at 19:30 Norepinephrine 16 mg/Dextrose 500 ml @ 1.87 mls/hr TITRATE IV ; Start 02/13/17 at 12:00; Status Future hold Propofol 100 ml @ 2.202 mls/ hr Q12H IV Last administered on 02/16/17 06:00; Admin Dose 13.212 MLS/HR; Start 02/13/17 at 10:00 Total Parenteral Nutrition (Tpn) 1,000 ml @ 40 mls/hr Q24H IV Last administered on 02/15/17 22:30; Admin Dose 40 MLS/HR; Start 02/14/17 at 12:00 Diagnostic Test (Pha) 1 ea 1 ea Q4 XX Last administered on 02/16/17 08:41; Admin Dose 1 EA; Start 02/14/17 at 17:00 Potassium Chloride (KCl 40 MEQ/250 ML NS) 250 ml @ 62.5 mls/hr Q4H IVPB Last administered on 02/16/17 08:18; Admin Dose 62.5 MLS/HR; Start 02/16/17 at 08:30; Stop 02/16/17 at 16:29 RICHAR ADRIAN February 16, 2017 10:02
[2017-02-16 10:08] LABS: ADD SCAN DIFF NO
[2017-02-16 10:10] LABS: ABNORMAL IP MESSAGE 1; HEMATOCRIT 26.3 % (42.0-52.0); HEMOGLOBIN 8.3 g/dl (14.0-18.0); MEAN CORPUSCULAR HEMOGLOBIN 29.2 pg (29.0-33.0); MEAN CORPUSCULAR HGB CONC 31.6 g/dl (32.0-37.0); MEAN CORPUSCULAR VOLUME 92.6 fl (82.0-101.0); MEAN PLATELET VOLUME 12.2 fl (7.4-10.4); PLATELET COUNT 339 10^3/UL (140-415); RED BLOOD COUNT 2.84 10^6/ul (4.70-6.10); RED CELL DISTRIBUTION WIDTH 15.9 % (11.5-14.5); WHITE BLOOD COUNT 16.3 10^3/ul (4.8-10.8)
[2017-02-16] MEDS: HYDROmorphONE 1 MG/ML SYG IV PRN ×3 (10:15→23:52)
[2017-02-16 11:00] LABS: BASOPHILS % 0.2 % (0.0-2.0); EOSINOPHILS # 0.2 10^3/ul (0.0-0.5); EOSINOPHILS % 1.2 % (0.0-7.0); LYMPHOCYTES # 0.6 10^3/ul (0.8-2.9); LYMPHOCYTES % 3.6 % (15.0-51.0); MONOCYTE # 0.5 10^3/ul (0.3-0.9); MONOCYTES % 3.1 % (0.0-11.0); NEUTROPHIL # 14.6 10^3/ul (1.6-7.5); NEUTROPHILS % 89.7 % (39.0-77.0); TOTAL CELLS COUNTED % 100
--- NOTE | 2017-02-16 12:10 | PN ---
DATE: 02/16/2017 SUBJECTIVE: No acute changes overnight. The patient remains intubated, looks comfortable Per RN, t here is no urine output and they are trying to flush the Zeng catheter and possibly change it. VITAL SIGNS: Temperature 98.3, pulse 93, respirations 23, blood pressure 106/66, saturation 99% on 50 FIO2. LABORATORIES: WBC 16.3, H and H 8.3 and 26.3, platelets 339, BUN 16, creatinine 0.66. MICROBIOLOGY: Microbiology intraoperative cultures pending. INDWELLINGS: Endotracheal tube, NG tube, PICC line placed on 02/14/2017, Zeng catheter, left abdom inal drainage catheter. ANTIMICROBIALS: 1. Meropenem. 2. Vancomycin 3. Flagyl 4. Cancidas. PHYSICAL EXAMINATION: GENERAL: This is a well-developed, middle-aged white man who is lying comfortably in bed. HEENT: Head atraumatic, normocephalic. Sclerae anicteric. Buccal mucosa dry. NECK: Supple, trachea midline. CHEST: Rise symmetrical. Breath sounds diminished. HEART: S1, S2. ABDOMEN: Distended. Mid abdominal dressing intact. EXTREMITIES: With trace edema. SKIN: Positive for anasarca and scrotal and penile edema. ASSESSMENT 1. Sepsis. 2. Status post tolerated viscus repair on 02/01/2017, with exploration of the abdomen, closure of f ascia and abdominal lavage on 02/15/2017. 3. Respiratory failure, postoperative, possible pneumonia. 4. History of Crohn's disease. 5. Liver cirrhosis. 6. Status post CT-guided left lower quadrant abdominal fluid collection drainage on 01/14/2017. PLAN: The patient remains hemodynamically stable. We will continue him on current antimicrobials a nd follow surgical recommendations. Vent management as per pulmonary. The patient is also being se en by gastroenterology. Dictated By: THOMAS ELLIS ORCHESTRA TEACHER for MICKY RAMÍREZ/YAN Conf#: [id number] DID#: [id number]
--- NOTE | 2017-02-16 13:07 | PN ---
Date/Time of Note Date/Time of Note DATE: 02/16/17 TIME: 13:00 Assessment/Plan VTE Prophylaxis VTE Prophylaxis Intervention: heparin Lines/Catheters IV Catheter Type (from Nrs): Saline Lock Urinary Cath still in place: Yes Reason Cath still needed: other (indicate) Assessment/Plan Assessment/Plan IMPRESSION 1. Perforated sigmoid colon 2/2 Severe Crohn's colitis * S/p Urgent Open Cronin's procedure with end colostomy, liver biopsy and abdominal lavage 02/01/17P * S/p post operative paracolic abscess drained via CT 02/14/[address] * S/p Exploration of abdomen through recent laparotomy site with losure of fascia done 02/15/17 for Fascia dehiscence 2. Recurrent Resp failure: Extubated then reintubated 02/13: currently vent dependent 3. Exacerbation of Crohn's disease with acute colitis and diarrhea Cultures growing ecoli / proteus / enterococcus 4. Multifocal PNA + Mook Pleural effusions Effusions likely hydrostatic from hypoalbuminemia 5. Severe Sepsis with lactic acidosis 2/2 severe colitis / PNA 6. S/p Systemic shock (hypovolemic +septic) 7. TPN therapy for low prealbumin 8. Hx of heavy alcohol and tobacco use just until admission 9. Probable underlying COPD and Cirrhosis based on hx which explains hypoalbuminemia and anasarca 10. Severe anemia : improved post transfusion PLAN: * Continue current ICU care and Vent Mgt and weaning * Continue post Op care/ electrolyte management / TPN management * Will slightly increase rate from TPN * ID managing abx and antifungal * Replace electrolytes as needed * PRN pain control/ antiemetics/ antipyretics/ supportive care CRITICAL CARE TIME: >35 mins Subjective 24 Hr Interval Summary Free Text/Dictation Patient seen and examined. will open eyes and try to pull at ET tube when off sedation Subjective hx not possible: pt non-verbal, pt critical status Exam/Review of Systems Vital Signs Vitals Vital Signs Date Time Temp Pulse Resp B/P Pulse Ox O2 Delivery O2 Flow Rate FiO2 02/16/17 12:00 98.2 90 22 106/73 100 Mechanical Ventilator 02/16/17 11:30 50 02/13/17 04:30 15.0 Intake and Output 02/15/17 02/15/17 02/16/17 15:00 23:00 07:00 Intake Total 943.908 ml 962.484 ml 620.000 ml Output Total 405 ml 360 ml 275 ml Balance 538.908 ml 602.484 ml 345.000 ml Exam Constitutional: intubated, opens eyes Head: atraumatic, normocephalic Eyes: PERRL Respiratory: slightly diminished breath sounds B/L Cardiovascular: tachycardic with regular rhythm Gastrointestinal: Soft, Right sided colostomy currently empty. surgical site covered Extremities: Severe anasarca Results Result Diagram: 02/16/17 0500 02/16/17 0500 Results 24 hrs Laboratory Tests Test 02/15/17 14:01 02/15/17 16:10 02/15/17 18:18 02/15/17 22:02 Bedside Glucose 113 103 99 Hemoglobin 8.5 L Hematocrit 26.0 L Test 02/15/17 23:00 02/16/17 01:17 02/16/17 04:58 02/16/17 05:00 Hemoglobin 8.5 L 8.3 L Hematocrit 26.0 L 26.3 L Bedside Glucose 109 Lab Scanned Report BLOOD TRANSFUSION White Blood Count 16.3 H Red Blood Count 2.84 L Mean Corpuscular Volume 92.6 Mean Corpuscular Hemoglobin 29.2 Mean Corpuscular Hemoglobin Concent 31.6 L Red Cell Distribution Width 15.9 H Platelet Count 339 Mean Platelet Volume 12.2 H Neutrophils % 89.7 H Band Neutrophils % 0.0 Lymphocytes % 3.6 L Monocytes % 3.1 Eosinophils % 1.2 Basophils % 0.2 Nucleated Red Blood Cells % 0.0 Neutrophils # 14.6 H Lymphocytes # 0.6 L Monocytes # 0.5 Eosinophils # 0.2 Basophils # 0.0 Nucleated Red Blood Cells # 0.0 Sodium Level 145 H Potassium Level 2.9 *L Chloride Level 112 H Carbon Dioxide Level 26 Anion Gap 10 Blood Urea Nitrogen 16 Creatinine 0.66 Glucose Level 91 Calcium Level 7.1 L Phosphorus Level 2.9 Magnesium Level 1.6 L Test 02/16/17 05:35 02/16/17 08:41 Bedside Glucose 122 113 Medications Medications Current Medications Hydromorphone HCl (Dilaudid) 1 mg Q4H PRN IV pain Last administered on t 19:56; Admin Dose 1 MG; Start 02/01/17 at 03:30 Pantoprazole (Protonix Iv) 40 mg DAILY@06 IV Last administered on 02/16/17 06: 01; Admin Dose 40 MG; Start 02/01/17 at 06:00 Acetaminophen/ Hydrocodone Bitart ([place] (5/325)) 1 tab Q4H PRN PO PAIN LEVEL 4 -7 Last administered on 02/09/17 18:48; Admin Dose 1 TAB; Start 02/01/17 at 20: 30 Acetaminophen/ Hydrocodone Bitart ([place] (5/325)) 2 tab Q4H PRN PO PAIN LEVEL 7 -10; Start 02/01/17 at 20:30 Hydromorphone HCl (Dilaudid) 0.5 mg Q2 PRN IV PAIN Last administered on 10:15; Admin Dose 0.5 MG; Start 02/01/17 at 20:30 Hydromorphone HCl (Dilaudid) 1 mg Q2 PRN IV PAIN Last administered on 11:57; Admin Dose 1 MG; Start 02/01/17 at 20:30 Docusate Sodium (Colace) 100 mg BID PRN PO CONSTIPATION; Start 02/01/17 at 20: 30 Bisacodyl (Dulcolax Supp) 10 mg BID PRN [place] CONSTIPATION; Start 02/01/17 at 20: 30 Sodium Biphosphate/ Sodium Phosphate 133 ml 133 ml BID PRN [place] CONSTIPATION; Start 02/01/17 at 20:30 Metronidazole 100 ml @ 100 mls/hr Q8 IVPB Last administered on 02/16/17 06:01 ; Admin Dose 100 MLS/HR; Start 02/04/17 at 15:00 Vancomycin HCl 250 ml @ 125 mls/hr Q12H IVPB Last administered on 02/16/17 06: 01; Admin Dose 125 MLS/HR; Start 02/05/17 at 06:00 Meropenem (Merrem 500 Mg/ 100 ml (Pmx)) 100 ml @ 200 mls/hr Q8 IVPB Last administered on 02/16/17 06:00; Admin Dose 200 MLS/HR; Start 02/05/17 at 22:00 Acetaminophen (Tylenol Liquid) 650 mg Q4H PRN GTB PAIN AND OR ELEVATED TEMP Last administered on 02/15/17 02:52; Admin Dose 650 MG; Start 02/05/17 at 18:30 Salmeterol Xinafoate/ Fluticasone (Advair 250/50 Diskus) 1 inh BID INH Last administered on 02/12/17 09:03; Admin Dose 1 INH; Start 02/07/17 at 11:00; Status Future Hold IV Flush (NS 10 ml) 10 ml PRN PRN IV IV PROTOCOL; Start 02/07/17 at 14:30 Diphenhydramine HCl 25 mg 25 mg Q6H PRN IV itching ; Start 02/07/17 at 20:00 Ondansetron HCl/ Sodium Chloride (Zofran Inj/NS) 54 ml @ 216 mls/hr Q6H PRN IV NAUSEA AND/OR VOMITING; Start 02/09/17 at 11:30 Prednisone (Prednisone) 40 mg DAILY PO Last administered on 02/12/17 09:03; Admin Dose 40 MG; Start 02/11/17 at 09:00; Status Future Hold Lorazepam (Ativan) 1 mg Q2 PRN IV AGITATION/ANXIETY Last administered on 01:51; Admin Dose 1 MG; Start 02/10/17 at 17:00 Lorazepam (Ativan) 1 mg Q1HWA PRN IM AGITATION/ANXIETY; Start 02/10/17 at 19:00 Trimethobenzamide HCl 200 mg 200 mg Q6H PRN IM NAUSEA AND/OR VOMITING; Start at 19:30 Norepinephrine 16 mg/Dextrose 500 ml @ 1.87 mls/hr TITRATE IV ; Start 02/13/17 at 12:00; Status Future hold Propofol 100 ml @ 2.202 mls/ hr Q12H IV Last administered on 02/16/17 12:05; Admin Dose 13.1 MLS/HR; Start 02/13/17 at 10:00 Total Parenteral Nutrition (Tpn) 1,000 ml @ 40 mls/hr Q24H IV Last administered on 02/15/17 22:30; Admin Dose 40 MLS/HR; Start 02/14/17 at 12:00 Diagnostic Test (Pha) 1 ea 1 ea Q4 XX Last administered on 02/16/17 08:41; Admin Dose 1 EA; Start 02/14/17 at 17:00 Potassium Chloride 250 ml @ 62.5 mls/hr Q4H IVPB Last administered on 5/2/ 17at 12:33; Admin Dose 62.5 MLS/HR; Start 02/16/17 at 08:30; Stop 02/16/17 at 16: 29 Caspofungin/ Sodium Chloride (Cancidas/NS) 250 ml @ 250 mls/hr Q24H IVPB ; Start 02/16/17 at 12:00 Procedures Procedures PROCEDURE: XR Chest. CLINICAL INDICATION: Shortness of breath. TECHNIQUE: Single frontal view. COMPARISON: 02/14/2017. FINDINGS: The right arm PICC line, endotracheal tube, nasogastric tube remain in satisfactory position. There is atelectasis at the lung bases, unchanged. The lungs are otherwise clear. The heart size is normal. Moderate bilateral pleural effusions with right larger than left are unchanged. There is no pneumothorax. IMPRESSION: 1. No change from 02/14/2017. RPTAT: QQ .Rogelio Vera MD, MD Date Time Electronically viewed and signed by .Rogelio Vera MD, on 02/15/2017 09:09 .R/ CC: RICHAR ADRIAN BOLATITO M. February 16, 2017 13:07
[2017-02-16] MEDS: CASPOFUNGIN 50 MG in SOD CHLORIDE 0.9% 250 ML IVPB SCH (13:53)
--- NOTE | 2017-02-16 14:09 | RADRPT ---
PROCEDURE: Chest Radiograph. CLINICAL INDICATION: CHF TECHNIQUE: Single frontal chest radiograph. COMPARISON: Chest radiograph 02/15/2017 FINDINGS: An endotracheal tube, nasogastric tube, right upper extremity PICC remain in stable and radiographic ally appropriate position. The cardiomediastinal silhouette is within normal limits. There is impro landry aeration of the bilateral lung bases consistent with improving infiltrates or effusions.. The bones are intact. IMPRESSION: 1. Improving bibasilar pleural / parenchymal disease. RPTAT: KK .Patrick Rodriguez MD, MD Date Time Electronically viewed and signed by .Patrick Rodriguez MD, MD on 02/16/2017 14:09 .B/
--- NOTE | 2017-02-16 14:50 | CONS ---
Date/Time of Note Date/Time of Note DATE: 02/16/17 TIME: 14:49 Assessment/Plan Assessment/Plan Additional Assessment/Plan Perforated colon status post surgery Severe sepsis Respiratory failure-reintubated Low normal ejection fraction 50% Volume overload Crohn's disease -Blood pressure trend remained stable off IV pressors. Good urine output without IV diuretics, no need for IV diuretics at the current time. Maintain potassium above 4.0 and magnesium above 2.0. Consultation Date/Type/Reason Admit Date/Time Feb 01, 2017 at 03:10 Initial Consult Date 02/02/17 Type of Consultation: cv Referring Provider: VINCE PADGETT 24 HR Interval Summary Free Text/Dictation Patient seen and examined, no new cardiac issues as per nursing staff Exam/Review of Systems Vital Signs Vitals Vital Signs Date Time Temp Pulse Resp B/P Pulse Ox O2 Delivery O2 Flow Rate FiO2 02/16/17 12:00 98.2 90 22 106/73 100 Mechanical Ventilator 02/16/17 11:30 50 02/13/17 04:30 15.0 Intake and Output 02/15/17 02/15/17 02/16/17 15:00 23:00 07:00 Intake Total 943.908 ml 962.484 ml 620.000 ml Output Total 405 ml 360 ml 275 ml Balance 538.908 ml 602.484 ml 345.000 ml Exam Sedated and intubated Head: normocephalic ENMT: intubated Respiratory: other (Coarse breath sounds bilaterally, no wheezing) Cardiovascular: other (S1-S2 heard), regular rate and rhythm Gastrointestinal: bowel sounds, other (Bandages), soft Extremities: edema Results Result Diagram: 02/16/17 0500 02/16/17 0500 Results 24 hrs Laboratory Tests Test 02/15/17 16:10 02/15/17 18:18 02/15/17 22:02 02/15/17 23:00 Hemoglobin 8.5 L 8.5 L Hematocrit 26.0 L 26.0 L Bedside Glucose 103 99 Test 02/16/17 01:17 02/16/17 04:58 02/16/17 05:00 02/16/17 05:35 Bedside Glucose 109 122 Lab Scanned Report BLOOD TRANSFUSION White Blood Count 16.3 H Red Blood Count 2.84 L Hemoglobin 8.3 L Hematocrit 26.3 L Mean Corpuscular Volume 92.6 Mean Corpuscular Hemoglobin 29.2 Mean Corpuscular Hemoglobin Concent 31.6 L Red Cell Distribution Width 15.9 H Platelet Count 339 Mean Platelet Volume 12.2 H Neutrophils % 89.7 H Band Neutrophils % 0.0 Lymphocytes % 3.6 L Monocytes % 3.1 Eosinophils % 1.2 Basophils % 0.2 Nucleated Red Blood Cells % 0.0 Neutrophils # 14.6 H Lymphocytes # 0.6 L Monocytes # 0.5 Eosinophils # 0.2 Basophils # 0.0 Nucleated Red Blood Cells # 0.0 Sodium Level 145 H Potassium Level 2.9 *L Chloride Level 112 H Carbon Dioxide Level 26 Anion Gap 10 Blood Urea Nitrogen 16 Creatinine 0.66 Glucose Level 91 Calcium Level 7.1 L Phosphorus Level 2.9 Magnesium Level 1.6 L Test 02/16/17 08:41 02/16/17 13:36 Bedside Glucose 113 92 Medications Medications Current Medications Hydromorphone HCl (Dilaudid) 1 mg Q4H PRN IV pain Last administered on 19:56; Admin Dose 1 MG; Start 02/01/17 at 03:30 Pantoprazole (Protonix Iv) 40 mg DAILY@06 IV Last administered on 02/16/17 06: 01; Admin Dose 40 MG; Start 02/01/17 at 06:00 Acetaminophen/ Hydrocodone Bitart ([place] (5/325)) 1 tab Q4H PRN PO PAIN LEVEL 4 -7 Last administered on 02/09/17 18:48; Admin Dose 1 TAB; Start 02/01/17 at 20: 30 Acetaminophen/ Hydrocodone Bitart ([place] (5/325)) 2 tab Q4H PRN PO PAIN LEVEL 7 -10; Start 02/01/17 at 20:30 Hydromorphone HCl (Dilaudid) 0.5 mg Q2 PRN IV PAIN Last administered on 10:15; Admin Dose 0.5 MG; Start 02/01/17 at 20:30 Hydromorphone HCl (Dilaudid) 1 mg Q2 PRN IV PAIN Last administered on 11:57; Admin Dose 1 MG; Start 02/01/17 at 20:30 Docusate Sodium (Colace) 100 mg BID PRN PO CONSTIPATION; Start 02/01/17 at 20: 30 Bisacodyl (Dulcolax Supp) 10 mg BID PRN [place] CONSTIPATION; Start 02/01/17 at 20: 30 Sodium Biphosphate/ Sodium Phosphate 133 ml 133 ml BID PRN [place] CONSTIPATION; Start 02/01/17 at 20:30 Metronidazole 100 ml @ 100 mls/hr Q8 IVPB Last administered on 02/16/17 13:15 ; Admin Dose 100 MLS/HR; Start 02/04/17 at 15:00 Vancomycin HCl 250 ml @ 125 mls/hr Q12H IVPB Last administered on 02/16/17 06: 01; Admin Dose 125 MLS/HR; Start 02/05/17 at 06:00 Meropenem (Merrem 500 Mg/ 100 ml (Pmx)) 100 ml @ 200 mls/hr Q8 IVPB Last administered on 02/16/17 14:17; Admin Dose 200 MLS/HR; Start 02/05/17 at 22:00 Acetaminophen (Tylenol Liquid) 650 mg Q4H PRN GTB PAIN AND OR ELEVATED TEMP Last administered on 02/15/17 02:52; Admin Dose 650 MG; Start 02/05/17 at 18:30 Salmeterol Xinafoate/ Fluticasone (Advair 250/50 Diskus) 1 inh BID INH Last administered on 02/12/17 09:03; Admin Dose 1 INH; Start 02/07/17 at 11:00; Status Future Hold IV Flush (NS 10 ml) 10 ml PRN PRN IV IV PROTOCOL; Start 02/07/17 at 14:30 Diphenhydramine HCl 25 mg 25 mg Q6H PRN IV itching ; Start 02/07/17 at 20:00 Ondansetron HCl/ Sodium Chloride (Zofran Inj/NS) 54 ml @ 216 mls/hr Q6H PRN IV NAUSEA AND/OR VOMITING; Start 02/09/17 at 11:30 Prednisone (Prednisone) 40 mg DAILY PO Last administered on 02/12/17 09:03; Admin Dose 40 MG; Start 02/11/17 at 09:00; Status Future Hold Lorazepam (Ativan) 1 mg Q2 PRN IV AGITATION/ANXIETY Last administered on 01:51; Admin Dose 1 MG; Start 02/10/17 at 17:00 Lorazepam (Ativan) 1 mg Q1HWA PRN IM AGITATION/ANXIETY; Start 02/10/17 at 19:00 Trimethobenzamide HCl 200 mg 200 mg Q6H PRN IM NAUSEA AND/OR VOMITING; Start at 19:30 Norepinephrine 16 mg/Dextrose 500 ml @ 1.87 mls/hr TITRATE IV ; Start 02/13/17 at 12:00; Status Future hold Propofol 100 ml @ 2.202 mls/ hr Q12H IV Last administered on 02/16/17 12:05; Admin Dose 13.1 MLS/HR; Start 02/13/17 at 10:00 Total Parenteral Nutrition (Tpn) 1,000 ml @ 50 mls/hr Q20H IV Last administered on 02/15/17 22:30; Admin Dose 40 MLS/HR; Start 02/14/17 at 12:00 Diagnostic Test (Pha) 1 ea 1 ea Q4 XX Last administered on 02/16/17 08:41; Admin Dose 1 EA; Start 02/14/17 at 17:00 Potassium Chloride 250 ml @ 62.5 mls/hr Q4H IVPB Last administered on 12:33; Admin Dose 62.5 MLS/HR; Start 02/16/17 at 08:30; Stop 02/16/17 at 16: 29 Caspofungin/ Sodium Chloride (Cancidas/NS) 250 ml @ 250 mls/hr Q24H IVPB Last administered on 02/16/17 13:53; Admin Dose 250 MLS/HR; Start 02/16/17 at 12:00 Keith Gandhi DO February 16, 2017 14:50
--- NOTE | 2017-02-16 15:23 | PN ---
Date/Time of Note Date/Time of Note DATE: 02/16/17 TIME: 14:52 Assessment/Plan Lines/Catheters IV Catheter Type (from Nrsg): Saline Lock Zeng in Place (from Nrs): Yes Assessment/Plan Assessment/Plan [facility] Progress Note Date of Service: 02/16/17 Today's Impression & Plan: Overall has remained stable on the vent since OR yesterday. No obvious issues with the wound and sutures holding well. Given clean abdomen, most issues likely pulmonary and exacerbated by ETOH withdrawal. No indication for acute surgical intervention. Remains high risk for complication given perforated colon in the setting of uncontrolled Crohn's. Recovery will take extra time with likely need for rehab. D/w team. Updated patient's father. With above assessment, I've recommended the following for today: 1. Cont current cares in ICU 2. F/u on cultures 3. Cont TPN 4. Treat ETOH withdrawal 5. Cont gentle diuresis to BMP < 200 6. Social work and case management to please start working on possible rehab vs. home health nurse set up 7. Increase activity 8. Increase ICS 9. Cont broad spec antimicrobials 10. Labs in am 11. Cont current wound care for now; wound nurse consult with placement of wound vac 12. trophic feeds through NG at 10 cc per hour (will consider advancing tomorrow ) Thank you again for your great care of this very pleasant patient and wonderful family. If there are any questions, please feel free to call me at [phone]. TOTAL VISIT TIME: 20 minutes of which more than half was spent in [id number] discussion with the patient, possibly including family, as well as coordination of care between multiple physicians and providers. Disclaimer: Inadvertent spelling or grammatical errors are likely due to EHR/ dictation software use and do not reflect on the overall quality of patient care. Updated Clinical Summary: A very pleasant 46-year-old gentleman with history of Crohn's disease as well as prior surgery for anal fistula approximately 5 years ago, and a torn meniscus repair on the left knee, presenting with abdominal pain associated with a few weeks' duration of diarrhea. S/p an otherwise uncomplicated diagnostic laparoscopy was converted first to hand assist and then to open exploration when perforated sigmoid colon was found and it was resected with a Deena type procedure and end colostomy as well as core needle liver biopsy, segment 5, due to presence of fatty liver disease, lysis of adhesions, and abdominal lavage on 02/01/17. Failed to wean off the vent through 02/06/17. PE was evaluated 02/07/[address] angio and no evidence found. CT abd/pelvis also did not show actionable findings (no abscess; bowel thickening somewhat expected). Extubated 02/07/17. 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 Fortunately, mentally appears to be intact and not on pressors. Lactic acid and CO2 normal with benign appearing abd and viable ostomy. Complicated by fascia dehiscence. S/p exploration of abdomen through recent laparotomy, primary closure of fascia and abdominal lavage on 02/15/17. COMORBIDITIES: 1. Crohn disease with perforation of sigmoid colon and sepsis. S/p an otherwise uncomplicated diagnostic laparoscopy was converted first to hand assist and then to open exploration when perforated sigmoid colon was found and it was resected with a Deena type procedure and end colostomy as well as core needle liver biopsy, segment 5, due to presence of fatty liver disease, lysis of adhesions, and abdominal lavage on 02/01/17. Complicated by respiratory failure, return trip to ICU and fascia dehiscence. S/p exploration of abdomen through recent laparotomy, primary closure of fascia and abdominal lavage on 02/15. 2. Repair of a fistula approximately 5 years ago. 3. Torn meniscus on the left knee status post repair. Subjective: No major events overnight; no major complaints; arousable but sedated; does not appear to report abd pain when asked; no reported BM Objective: Vitals: See below Exam: GENERAL: On exam, the patient was laying in bed and appeared to be comfortable and in no acute distress. Intubated. ABDOMEN: Soft, nontender and nondistended. Incision dressings are clean without any evidence of obvious erythema, edema, discharge, or hernia; sutures seem to be intact. Surgery drain site clean. Ostomy pink and viable; some air and stool in the bag. There are no peritoneal signs or guarding. SKIN: Skin appears to be pink and feels warm to touch. NEUROLOGIC: Patient is sedated, but appears to wake up to voice and does not follow commands appropriately. Exam/Review of Systems Vital Signs Vitals Vital Signs Date Time Temp Pulse Resp B/P Pulse Ox O2 Delivery O2 Flow Rate FiO2 02/16/17 12:00 98.2 90 22 106/73 100 Mechanical Ventilator 02/16/17 11:30 50 02/13/17 04:30 15.0 Intake and Output 02/15/17 02/15/17 02/16/17 15:00 23:00 07:00 Intake Total 943.908 ml 962.484 ml 620.000 ml Output Total 405 ml 360 ml 275 ml Balance 538.908 ml 602.484 ml 345.000 ml Results Result Diagram: 02/16/17 0500 02/16/17 0500 TI HILTON M.D. February 16, 2017 15:23
--- NOTE | 2017-02-16 16:25 | PN ---
Date/Time of Note Date/Time of Note DATE: 02/16/17 TIME: 16:18 Assessment/Plan VTE Prophylaxis VTE Prophylaxis Intervention: SCD's Lines/Catheters IV Catheter Type (from [facility]): Saline Lock Urinary Cath still in place: Yes Reason Cath still needed: urinary retention Assessment/Plan Assessment/Plan Respiratory failure on ventilator S/P exploration Fascial dehiscence Perforated sigmoid colon * Laparoscopic exploration,open sigmoid colectomy with Deena end colostomy with liver biopsy segment V h/o Crohn's disease Thrombocytopenia Liver Cirrhosis Plan: * continue present management * will reevaluate for Crohn disease once recovered from surgery Subjective 24 Hr Interval Summary Free Text/Dictation * Course reviewed with RN * Patient seen and examined * Orally intubated on ventilator Exam/Review of Systems Vital Signs Vitals Vital Signs Date Time Temp Pulse Resp B/P Pulse Ox O2 Delivery O2 Flow Rate FiO2 02/16/17 15:00 90 35 102/69 99 Mechanical Ventilator 02/16/17 12:00 98.2 02/16/17 11:30 50 02/13/17 04:30 15.0 Intake and Output 02/15/17 02/15/17 02/16/17 14:59 22:59 06:59 Intake Total 890.696 ml 862.484 ml 620.000 ml Output Total 375 ml 350 ml 300 ml Balance 515.696 ml 512.484 ml 320.000 ml Exam Constitutional: frail Neck: non-tender, supple Respiratory: clear to auscultation, normal air movement Cardiovascular: nl pulses, regular rate and rhythm Gastrointestinal: bowel sounds, other (colostomy), soft Musculoskeletal: nl extremities to inspection Extremities: normal pulses Results Result Diagram: 02/16/17 0500 02/16/17 0500 Results 24 hrs Laboratory Tests Test 02/15/17 18:18 02/15/17 22:02 02/15/17 23:00 02/16/17 01:17 Bedside Glucose 103 99 109 Hemoglobin 8.5 L Hematocrit 26.0 L Test 02/16/17 04:58 02/16/17 05:00 02/16/17 05:35 02/16/17 08:41 Lab Scanned Report BLOOD TRANSFUSION White Blood Count 16.3 H Red Blood Count 2.84 L Hemoglobin 8.3 L Hematocrit 26.3 L Mean Corpuscular Volume 92.6 Mean Corpuscular Hemoglobin 29.2 Mean Corpuscular Hemoglobin Concent 31.6 L Red Cell Distribution Width 15.9 H Platelet Count 339 Mean Platelet Volume 12.2 H Neutrophils % 89.7 H Band Neutrophils % 0.0 Lymphocytes % 3.6 L Monocytes % 3.1 Eosinophils % 1.2 Basophils % 0.2 Nucleated Red Blood Cells % 0.0 Neutrophils # 14.6 H Lymphocytes # 0.6 L Monocytes # 0.5 Eosinophils # 0.2 Basophils # 0.0 Nucleated Red Blood Cells # 0.0 Sodium Level 145 H Potassium Level 2.9 *L Chloride Level 112 H Carbon Dioxide Level 26 Anion Gap 10 Blood Urea Nitrogen 16 Creatinine 0.66 Glucose Level 91 Calcium Level 7.1 L Phosphorus Level 2.9 Magnesium Level 1.6 L Bedside Glucose 122 113 Test 02/16/17 13:36 Bedside Glucose 92 Medications Medications Current Medications Hydromorphone HCl (Dilaudid) 1 mg Q4H PRN IV pain Last administered on 19:56; Admin Dose 1 MG; Start 02/01/17 at 03:30 Pantoprazole (Protonix Iv) 40 mg DAILY@06 IV Last administered on 02/16/17 06: 01; Admin Dose 40 MG; Start 02/01/17 at 06:00 Acetaminophen/ Hydrocodone Bitart ([place] (5/325)) 1 tab Q4H PRN PO PAIN LEVEL 4 -7 Last administered on 02/09/17 18:48; Admin Dose 1 TAB; Start 02/01/17 at 20: 30 Acetaminophen/ Hydrocodone Bitart ([place] (5/325)) 2 tab Q4H PRN PO PAIN LEVEL 7 -10; Start 02/01/17 at 20:30 Hydromorphone HCl (Dilaudid) 0.5 mg Q2 PRN IV PAIN Last administered on 10:15; Admin Dose 0.5 MG; Start 02/01/17 at 20:30 Hydromorphone HCl (Dilaudid) 1 mg Q2 PRN IV PAIN Last administered on 11:57; Admin Dose 1 MG; Start 02/01/17 at 20:30 Docusate Sodium (Colace) 100 mg BID PRN PO CONSTIPATION; Start 02/01/17 at 20: 30 Bisacodyl (Dulcolax Supp) 10 mg BID PRN [place] CONSTIPATION; Start 02/01/17 at 20: 30 Sodium Biphosphate/ Sodium Phosphate 133 ml 133 ml BID PRN [place] CONSTIPATION; Start 02/01/17 at 20:30 Metronidazole 100 ml @ 100 mls/hr Q8 IVPB Last administered on 02/16/17 13:15 ; Admin Dose 100 MLS/HR; Start 02/04/17 at 15:00 Vancomycin HCl 250 ml @ 125 mls/hr Q12H IVPB Last administered on 02/16/17 06: 01; Admin Dose 125 MLS/HR; Start 02/05/17 at 06:00 Meropenem (Merrem 500 Mg/ 100 ml (Pmx)) 100 ml @ 200 mls/hr Q8 IVPB Last administered on 02/16/17 14:17; Admin Dose 200 MLS/HR; Start 02/05/17 at 22:00 Acetaminophen (Tylenol Liquid) 650 mg Q4H PRN GTB PAIN AND OR ELEVATED TEMP Last administered on 02/15/17 02:52; Admin Dose 650 MG; Start 02/05/17 at 18:30 Salmeterol Xinafoate/ Fluticasone (Advair 250/50 Diskus) 1 inh BID INH Last administered on 02/12/17 09:03; Admin Dose 1 INH; Start 02/07/17 at 11:00; Status Future Hold IV Flush (NS 10 ml) 10 ml PRN PRN IV IV PROTOCOL; Start 02/07/17 at 14:30 Diphenhydramine HCl 25 mg 25 mg Q6H PRN IV itching ; Start 02/07/17 at 20:00 Ondansetron HCl/ Sodium Chloride (Zofran Inj/NS) 54 ml @ 216 mls/hr Q6H PRN IV NAUSEA AND/OR VOMITING; Start 02/09/17 at 11:30 Prednisone (Prednisone) 40 mg DAILY PO Last administered on 02/12/17 09:03; Admin Dose 40 MG; Start 02/11/17 at 09:00; Status Future Hold Lorazepam (Ativan) 1 mg Q2 PRN IV AGITATION/ANXIETY Last administered on 01:51; Admin Dose 1 MG; Start 02/10/17 at 17:00 Lorazepam (Ativan) 1 mg Q1HWA PRN IM AGITATION/ANXIETY; Start 02/10/17 at 19:00 Trimethobenzamide HCl 200 mg 200 mg Q6H PRN IM NAUSEA AND/OR VOMITING; Start at 19:30 Norepinephrine 16 mg/Dextrose 500 ml @ 1.87 mls/hr TITRATE IV ; Start 02/13/17 at 12:00; Status Future hold Propofol 100 ml @ 2.202 mls/ hr Q12H IV Last administered on 02/16/17 12:05; Admin Dose 13.1 MLS/HR; Start 02/13/17 at 10:00 Total Parenteral Nutrition (Tpn) 1,000 ml @ 50 mls/hr Q20H IV Last administered on 02/15/17 22:30; Admin Dose 40 MLS/HR; Start 02/14/17 at 12:00 Diagnostic Test (Pha) 1 ea 1 ea Q4 XX Last administered on 02/16/17 08:41; Admin Dose 1 EA; Start 02/14/17 at 17:00 Potassium Chloride 250 ml @ 62.5 mls/hr Q4H IVPB Last administered on 12:33; Admin Dose 62.5 MLS/HR; Start 02/16/17 at 08:30; Stop 02/16/17 at 16: 29 Caspofungin/ Sodium Chloride (Cancidas/NS) 250 ml @ 250 mls/hr Q24H IVPB Last administered on 02/16/17 13:53; Admin Dose 250 MLS/HR; Start 02/16/17 at 12:00 SANDRA DAVIS MD February 16, 2017 16:25
[2017-02-17] VITALS (53 sets, daily range): BP systolic 90–125; BP diastolic 49–83; PULSE 88–103; RESP 12–32
[2017-02-17] MEDS: TPN 1,000 ML IV SCH ×2 (00:57→22:42)
[2017-02-17] MEDS: PROPOFOL 100 ML IV SCH ×4 (01:34→18:42)
[2017-02-17] MEDS: ACCU-CHEK XX SCH ×6 (01:37→21:32)
[2017-02-17 04:42] LABS: ADD SCAN DIFF NO
[2017-02-17 04:51] LABS: BASOPHILS % 0.1 % (0.0-2.0); EOSINOPHILS # 0.3 10^3/ul (0.0-0.5); EOSINOPHILS % 1.7 % (0.0-7.0); HEMATOCRIT 24.8 % (42.0-52.0); HEMOGLOBIN 7.7 g/dl (14.0-18.0); LYMPHOCYTES # 0.7 10^3/ul (0.8-2.9); LYMPHOCYTES % 4.3 % (15.0-51.0); MEAN CORPUSCULAR HEMOGLOBIN 28.3 pg (29.0-33.0); MEAN CORPUSCULAR VOLUME 91.2 fl (82.0-101.0); MEAN PLATELET VOLUME 11.4 fl (7.4-10.4); MONOCYTE # 0.5 10^3/ul (0.3-0.9); MONOCYTES % 3.5 % (0.0-11.0); NEUTROPHIL # 13.2 10^3/ul (1.6-7.5); NEUTROPHILS % 88.6 % (39.0-77.0); PLATELET COUNT 316 10^3/UL (140-415); RED BLOOD COUNT 2.72 10^6/ul (4.70-6.10); RED CELL DISTRIBUTION WIDTH 15.9 % (11.5-14.5)
[2017-02-17 05:17] LABS: POTASSIUM 3.5 mmol/L (3.5-5.1)
[2017-02-17 05:20] LABS: CREATININE 0.65 mg/dl (0.61-1.24)
[2017-02-17 05:21] LABS: CALCIUM 7.1 mg/dl (8.4-10.2); MAGNESIUM 1.7 mg/dl (1.7-2.5); PHOSPHORUS 2.9 mg/dl (2.5-4.9)
[2017-02-17] MEDS: metroNIDAZOLE 500 MG/NS (PMX) 100 ML IVPB SCH ×3 (05:36→21:33)
[2017-02-17] MEDS: MEROPENEM 500 MG/100 ML (PMX) 100 ML IVPB SCH ×3 (05:36→21:33)
[2017-02-17] MEDS: VANCOMYCIN 1 GM in NS 250 ML IVPB SCH ×2 (05:36→18:44)
[2017-02-17] MEDS: PANTOPRAZOLE 40 MG INJ IV SCH (05:36)
[2017-02-17] MEDS: ACETAMINOPHEN 650MG/20.3ML CUP GTB PRN ×2 (06:39→20:18)
--- NOTE | 2017-02-17 09:38 | CONS ---
Date/Time of Note Date/Time of Note DATE: 02/17/17 TIME: 09:32 Assessment/Plan Assessment/Plan Additional Assessment/Plan Chest x-ray was reviewed from yesterday afternoon which is showing marked improvement in bilateral pleural effusions. Endotracheal tube is at an adequate level. Ventilator settings; AC of 18, tidal volume 550, PEEP of 5, 35% FiO2. Patient currently on propofol at 30 mics per kilogram per minute, TPN. Assessment recommendations; 1. Patient admitted for diverticular formation status post laparoscopic sigmoidectomy with colostomy. 2. Episode of brief cardiac arrest on the medical floor requiring intubation and brief CPR with preservation of mental status. 3. Status post exploration laparotomy with negative findings. 4. Generalized anasarca. 5. Anemia. 6. Improving sepsis. Continue current treatment. Add Lasix 40 mg every 12 hours preceded by albumin 25 g every 8 hours at least for 3 doses. The patient was given a weaning trial tomorrow morning. Patient was briefly assessed at bedside on CPAP mode and currently does not meet weaning criteria. Consultation Date/Type/Reason Admit Date/Time Feb 01, 2017 at 03:10 Initial Consult Date 02/02/17 Type of Consultation: Pulmonary/critical care Referring Provider: VINCE PADGETT 24 HR Interval Summary Free Text/Dictation Patient condition remains critical but patient has remained hemodynamically stable. Still on full ventilator support. Ileus has resolved, patient started on tube feeding. General exam; young male, orally intubated, readily arousable. Currently in no distress. Exam/Review of Systems Vital Signs Vitals Vital Signs Date Time Temp Pulse Resp B/P Pulse Ox O2 Delivery O2 Flow Rate FiO2 02/17/17 08:00 98.8 97 29 109/75 96 Mechanical Ventilator 02/17/17 05:25 40 Intake and Output 02/16/17 02/16/17 02/17/17 15:00 23:00 07:00 Intake Total 1455.724 ml 776.060 ml 919.193 ml Output Total 490 ml 530 ml 420 ml Balance 965.724 ml 246.060 ml 499.193 ml Exam HEENT examination; supple neck, no JVD. No lymphadenopathy. Midline trachea. No thyromegaly. Patient has fair dentition. Orally intubated. No neck masses. Chest examination; clear to auscultation. S1-S2 audible, no murmurs. Regular rhythm. Abdomen examination; soft, midline dressing in place. STEVE drain in place. Bowel sounds audible. Colostomy in place. Extremity exam is; there is generalized 2+ anasarca. 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 Results Result Diagram: 02/17/17 0400 02/17/17 0400 Results 24 hrs Laboratory Tests Test 02/16/17 13:36 02/16/17 17:23 02/16/17 21:35 02/17/17 01:06 Bedside Glucose 92 83 98 104 Test 02/17/17 04:00 02/17/17 05:20 02/17/17 09:22 White Blood Count 15.0 H Red Blood Count 2.72 L Hemoglobin 7.7 L Hematocrit 24.8 L Mean Corpuscular Volume 91.2 Mean Corpuscular Hemoglobin 28.3 L Mean Corpuscular Hemoglobin Concent 31.0 L Red Cell Distribution Width 15.9 H Platelet Count 316 Mean Platelet Volume 11.4 H Neutrophils % 88.6 H Lymphocytes % 4.3 L Monocytes % 3.5 Eosinophils % 1.7 Basophils % 0.1 Nucleated Red Blood Cells % 0.0 Neutrophils # 13.2 H Lymphocytes # 0.7 L Monocytes # 0.5 Eosinophils # 0.3 Basophils # 0.0 Nucleated Red Blood Cells # 0.0 Sodium Level 144 Potassium Level 3.5 Chloride Level 113 H Carbon Dioxide Level 25 Anion Gap 10 Blood Urea Nitrogen 18 Creatinine 0.65 Glucose Level 97 Calcium Level 7.1 L Phosphorus Level 2.9 Magnesium Level 1.7 Bedside Glucose 101 113 Medications Medications Current Medications Hydromorphone HCl (Dilaudid) 1 mg Q4H PRN IV pain Last administered on 19:56; Admin Dose 1 MG; Start 02/01/17 at 03:30 Pantoprazole (Protonix Iv) 40 mg DAILY@06 IV Last administered on 02/17/17 05: 36; Admin Dose 40 MG; Start 02/01/17 at 06:00 Acetaminophen/ Hydrocodone Bitart ([place] (5/325)) 1 tab Q4H PRN PO PAIN LEVEL 4 -7 Last administered on 02/09/17 18:48; Admin Dose 1 TAB; Start 02/01/17 at 20: 30 Acetaminophen/ Hydrocodone Bitart ([place] (5/325)) 2 tab Q4H PRN PO PAIN LEVEL 7 -10; Start 02/01/17 at 20:30 Hydromorphone HCl (Dilaudid) 0.5 mg Q2 PRN IV PAIN Last administered on 23:52; Admin Dose 0.5 MG; Start 02/01/17 at 20:30 Hydromorphone HCl (Dilaudid) 1 mg Q2 PRN IV PAIN Last administered on 11:57; Admin Dose 1 MG; Start 02/01/17 at 20:30 Docusate Sodium (Colace) 100 mg BID PRN PO CONSTIPATION; Start 02/01/17 at 20: 30 Bisacodyl (Dulcolax Supp) 10 mg BID PRN [place] CONSTIPATION; Start 02/01/17 at 20: 30 Sodium Biphosphate/ Sodium Phosphate 133 ml 133 ml BID PRN [place] CONSTIPATION; Start 02/01/17 at 20:30 Metronidazole 100 ml @ 100 mls/hr Q8 IVPB Last administered on 02/17/17 05:36 ; Admin Dose 100 MLS/HR; Start 02/04/17 at 15:00 Vancomycin HCl 250 ml @ 125 mls/hr Q12H IVPB Last administered on 02/17/17 05: 36; Admin Dose 125 MLS/HR; Start 02/05/17 at 06:00 Meropenem (Merrem 500 Mg/ 100 ml (Pmx)) 100 ml @ 200 mls/hr Q8 IVPB Last administered on 02/17/17 05:36; Admin Dose 200 MLS/HR; Start 02/05/17 at 22:00 Acetaminophen (Tylenol Liquid) 650 mg Q4H PRN GTB PAIN AND OR ELEVATED TEMP Last administered on 02/17/17 06:39; Admin Dose 650 MG; Start 02/05/17 at 18:30 Salmeterol Xinafoate/ Fluticasone (Advair 250/50 Diskus) 1 inh BID INH Last administered on 02/12/17 09:03; Admin Dose 1 INH; Start 02/07/17 at 11:00; Status Future Hold IV Flush (NS 10 ml) 10 ml PRN PRN IV IV PROTOCOL; Start 02/07/17 at 14:30 Diphenhydramine HCl 25 mg 25 mg Q6H PRN IV itching ; Start 02/07/17 at 20:00 Ondansetron HCl/ Sodium Chloride (Zofran Inj/NS) 54 ml @ 216 mls/hr Q6H PRN IV NAUSEA AND/OR VOMITING; Start 02/09/17 at 11:30 Prednisone (Prednisone) 40 mg DAILY PO Last administered on 02/12/17 09:03; Admin Dose 40 MG; Start 02/11/17 at 09:00; Status Future Hold Lorazepam (Ativan) 1 mg Q2 PRN IV AGITATION/ANXIETY Last administered on 01:51; Admin Dose 1 MG; Start 02/10/17 at 17:00 Lorazepam (Ativan) 1 mg Q1HWA PRN IM AGITATION/ANXIETY; Start 02/10/17 at 19:00 Trimethobenzamide HCl 200 mg 200 mg Q6H PRN IM NAUSEA AND/OR VOMITING; Start at 19:30 Norepinephrine 16 mg/Dextrose 500 ml @ 1.87 mls/hr TITRATE IV ; Start 02/13/17 at 12:00; Status Future hold Propofol 100 ml @ 2.202 mls/ hr Q12H IV Last administered on 02/17/17 07:04; Admin Dose 13.212 MLS/HR; Start 02/13/17 at 10:00 Total Parenteral Nutrition (Tpn) 1,000 ml @ 50 mls/hr Q20H IV Last administered on 02/17/17 00:57; Admin Dose 50 MLS/HR; Start 02/14/17 at 12:00 Diagnostic Test (Pha) 1 ea 1 ea Q4 XX Last administered on 02/17/17 05:32; Admin Dose 1 EA; Start 02/14/17 at 17:00 Caspofungin/ Sodium Chloride (Cancidas/NS) 250 ml @ 250 mls/hr Q24H IVPB Last administered on 02/16/17 13:53; Admin Dose 250 MLS/HR; Start 02/16/17 at 12:00 RICHAR ADRIAN February 17, 2017 09:37
[2017-02-17] MEDS ORDERED: FUROSEMIDE 40 MG INJ IV SCH (10:00)
[2017-02-17] MEDS: ALBUMIN HUMAN 25% 50 ML IV SCH ×2 (10:24→17:37)
--- NOTE | 2017-02-17 10:25 | PN ---
Date/Time of Note Date/Time of Note DATE: 02/17/17 TIME: 10:23 Assessment/Plan Lines/Catheters IV Catheter Type (from Nrsg): PICC Line Zeng in Place (from Nrsg): Yes Assessment/Plan Assessment/Plan [facility] Progress Note Date of Service: 02/17/17 Today's Impression & Plan: Overall stable. Still on the vent. No obvious issues with the wound and sutures holding well. Abd remains benign. Still with pulmonary issues exacerbated by ETOH withdrawal. No indication for acute surgical intervention. Remains high risk for complication given perforated colon in the setting of uncontrolled Crohn's. Recovery will take extra time with likely need for rehab. D/w team. With above assessment, I've recommended the following for today: 1. Cont current cares in ICU 2. F/u on cultures 3. Cont TPN 4. Treat ETOH withdrawal 5. Cont gentle diuresis to BMP < 200 6. Social work and case management to please start working on possible rehab vs. home health nurse set up 7. Increase activity 8. Increase ICS 9. Cont broad spec antimicrobials 10. Labs in am 11. Cont current wound care; wound nurse consult with placement of wound vac 12. Increase gastric feeds to goal rate as tolerated Thank you again for your great care of this very pleasant patient and wonderful family. If there are any questions, please feel free to call me at [phone]. TOTAL VISIT TIME: 20 minutes of which more than half was spent in [id number] discussion with the patient, possibly including family, as well as coordination of care between multiple physicians and providers. Disclaimer: Inadvertent spelling or grammatical errors are likely due to EHR/ dictation software use and do not reflect on the overall quality of patient care. Updated Clinical Summary: A very pleasant 46-year-old gentleman with history of Crohn's disease as well as prior surgery for anal fistula approximately 5 years ago, and a torn meniscus repair on the left knee, presenting with abdominal pain associated with a few weeks' duration of diarrhea. S/p an otherwise uncomplicated diagnostic laparoscopy was converted first to hand assist and then to open exploration when perforated sigmoid colon was found and it was resected with a Deena type procedure and end colostomy as well as core needle liver biopsy, segment 5, due to presence of fatty liver disease, lysis of adhesions, and abdominal lavage on 02/01/17. Failed to wean off the vent through 02/06/17. PE was evaluated 02/07/[address] angio and no evidence found. CT abd/pelvis also did not show actionable findings (no abscess; bowel thickening somewhat expected). Extubated 02/07/17. 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 Fortunately, mentally appears to be intact and not on pressors. Lactic acid and CO2 normal with benign appearing abd and viable ostomy. Complicated by fascia dehiscence. S/p exploration of abdomen through recent laparotomy, primary closure of fascia and abdominal lavage on 02/15/17. COMORBIDITIES: 1. Crohn disease with perforation of sigmoid colon and sepsis. S/p an otherwise uncomplicated diagnostic laparoscopy was converted first to hand assist and then to open exploration when perforated sigmoid colon was found and it was resected with a Deena type procedure and end colostomy as well as core needle liver biopsy, segment 5, due to presence of fatty liver disease, lysis of adhesions, and abdominal lavage on 02/01/17. Complicated by respiratory failure, return trip to ICU and fascia dehiscence. S/p exploration of abdomen through recent laparotomy, primary closure of fascia and abdominal lavage on 02/15. 2. Repair of a fistula approximately 5 years ago. 3. Torn meniscus on the left knee status post repair. Subjective: No major events overnight; no major complaints; arousable but sedated; does not appear to report abd pain when asked; no reported BM Objective: Vitals: See below Exam: GENERAL: On exam, the patient was laying in bed and appeared to be comfortable and in no acute distress. Intubated. ABDOMEN: Soft, nontender and nondistended. Incision dressings are clean without any evidence of obvious erythema, edema, discharge, or hernia; sutures seem to be intact. Surgery drain site clean. Ostomy pink and viable; some air and stool in the bag. There are no peritoneal signs or guarding. SKIN: Skin appears to be pink and feels warm to touch. NEUROLOGIC: Patient is sedated, but appears to wake up to voice and does not follow commands appropriately. Exam/Review of Systems Vital Signs Vitals Vital Signs Date Time Temp Pulse Resp B/P Pulse Ox O2 Delivery O2 Flow Rate FiO2 02/17/17 08:00 98.8 97 29 109/75 96 Mechanical Ventilator 02/17/17 05:25 40 Intake and Output 02/16/17 02/16/17 02/17/17 15:00 23:00 07:00 Intake Total 1455.724 ml 776.060 ml 919.193 ml Output Total 490 ml 530 ml 420 ml Balance 965.724 ml 246.060 ml 499.193 ml Results Result Diagram: 02/17/17 0400 02/17/17 0400 TI HILTON M.D. February 17, 2017 10:25
--- NOTE | 2017-02-17 11:40 | RADRPT ---
PROCEDURE: XR Chest 1 View. CLINICAL INDICATION: Shortness of breath TECHNIQUE: AP view of the chest was obtained. COMPARISON: Yesterday FINDINGS: The cardiomediastinal silhouette is within normal limits. Endotracheal and nasogastric tubes are sta ble right-sided PICC line is unchanged. Central pulmonary vascular congestion and interstitial prom inence in both lungs is unchanged. Bilateral lower lung infiltrates, combined with small pleural ef fusions are stable. The osseous structures are unchanged. IMPRESSION: Stable central pulmonary vascular congestion and interstitial prominence in both lungs. Stable bilateral lower lung infiltrates, combined with small pleural effusions. RPTAT: AA .Schuyler Ugalde MD, MD Date Time Electronically viewed and signed by .cShuyler Ugalde MD, MD on 02/17/2017 11:40 .P/
[2017-02-17 12:18] LABS: HEMATOCRIT 23.4 % (42.0-52.0); HEMOGLOBIN 7.2 g/dl (14.0-18.0)
[2017-02-17 12:27] LABS: POTASSIUM 4.1 mmol/L (3.5-5.1)
[2017-02-17 12:30] LABS: MAGNESIUM 1.6 mg/dl (1.7-2.5)
[2017-02-17] MEDS: CASPOFUNGIN 50 MG in SOD CHLORIDE 0.9% 250 ML IVPB SCH (12:54)
[2017-02-17] MEDS: HYDROmorphONE 1 MG/ML SYG IV PRN (13:00)
--- NOTE | 2017-02-17 13:33 | CONS ---
Date/Time of Note Date/Time of Note DATE: 02/17/17 TIME: 13:32 Assessment/Plan Assessment/Plan Additional Assessment/Plan Perforated colon status post surgery Severe sepsis Respiratory failure-reintubated Low normal ejection fraction 50% Volume overload Crohn's disease Acute blood loss anemia -Blood pressure trend overall remained stable off IV pressors. Patient started on IV diuretics. Would order potassium and magnesium supplementation currently. Maintain potassium above 4.0 and magnesium above 2.0. Patient's anemia is worsening, would consider transfusion Consultation Date/Type/Reason Admit Date/Time Feb 01, 2017 at 03:10 Initial Consult Date 02/02/17 Type of Consultation: cv Referring Provider: VINCE PADGETT 24 HR Interval Summary Free Text/Dictation Patient seen and examined, no new cardiac issues as per nursing staff Exam/Review of Systems Vital Signs Vitals Vital Signs Date Time Temp Pulse Resp B/P Pulse Ox O2 Delivery O2 Flow Rate FiO2 02/17/17 11:30 97 28 101/63 96 Mechanical Ventilator 02/17/17 11:20 40 02/17/17 08:00 98.8 Intake and Output 02/16/17 02/16/17 02/17/17 15:00 23:00 07:00 Intake Total 1455.724 ml 776.060 ml 919.193 ml Output Total 490 ml 530 ml 420 ml Balance 965.724 ml 246.060 ml 499.193 ml Exam Sedated but occasionally following commands, no apparent distress Head: normocephalic ENMT: intubated Respiratory: other (Coarse breath sounds bilaterally, no wheezing) Cardiovascular: other (S1-S2 heard), regular rate and rhythm Gastrointestinal: bowel sounds, non-tender, soft Extremities: edema Results Result Diagram: 02/17/17 1200 02/17/17 1200 Results 24 hrs Laboratory Tests Test 02/16/17 13:36 02/16/17 17:23 02/16/17 21:35 02/17/17 01:06 Bedside Glucose 92 83 98 104 Test 02/17/17 04:00 02/17/17 05:20 02/17/17 09:22 02/17/17 12:00 White Blood Count 15.0 H Red Blood Count 2.72 L Hemoglobin 7.7 L 7.2 L Hematocrit 24.8 L 23.4 L Mean Corpuscular Volume 91.2 Mean Corpuscular Hemoglobin 28.3 L Mean Corpuscular Hemoglobin Concent 31.0 L Red Cell Distribution Width 15.9 H Platelet Count 316 Mean Platelet Volume 11.4 H Neutrophils % 88.6 H Lymphocytes % 4.3 L Monocytes % 3.5 Eosinophils % 1.7 Basophils % 0.1 Nucleated Red Blood Cells % 0.0 Neutrophils # 13.2 H Lymphocytes # 0.7 L Monocytes # 0.5 Eosinophils # 0.3 Basophils # 0.0 Nucleated Red Blood Cells # 0.0 Sodium Level 144 Potassium Level 3.5 4.1 Chloride Level 113 H Carbon Dioxide Level 25 Anion Gap 10 Blood Urea Nitrogen 18 Creatinine 0.65 Glucose Level 97 Calcium Level 7.1 L Phosphorus Level 2.9 Magnesium Level 1.7 1.6 L Bedside Glucose 101 113 Test 02/17/17 13:04 Bedside Glucose 115 Medications Medications Current Medications Hydromorphone HCl (Dilaudid) 1 mg Q4H PRN IV pain Last administered on 13:00; Admin Dose 1 MG; Start 02/01/17 at 03:30 Pantoprazole (Protonix Iv) 40 mg DAILY@06 IV Last administered on 02/17/17 05: 36; Admin Dose 40 MG; Start 02/01/17 at 06:00 Acetaminophen/ Hydrocodone Bitart ([employer] (5/325)) 1 tab Q4H PRN PO PAIN LEVEL 4 -7 Last administered on 02/09/17 18:48; Admin Dose 1 TAB; Start 02/01/17 at 20: 30 Acetaminophen/ Hydrocodone Bitart ([employer] (5/325)) 2 tab Q4H PRN PO PAIN LEVEL 7 -10; Start 02/01/17 at 20:30 Hydromorphone HCl (Dilaudid) 0.5 mg Q2 PRN IV PAIN Last administered on 23:52; Admin Dose 0.5 MG; Start 02/01/17 at 20:30 Hydromorphone HCl (Dilaudid) 1 mg Q2 PRN IV PAIN Last administered on 11:57; Admin Dose 1 MG; Start 02/01/17 at 20:30 Docusate Sodium (Colace) 100 mg BID PRN PO CONSTIPATION; Start 02/01/17 at 20: 30 Bisacodyl (Dulcolax Supp) 10 mg BID PRN [place] CONSTIPATION; Start 02/01/17 at 20: 30 Sodium Biphosphate/ Sodium Phosphate 133 ml 133 ml BID PRN [place] CONSTIPATION; Start 02/01/17 at 20:30 Metronidazole 100 ml @ 100 mls/hr Q8 IVPB Last administered on 02/17/17 05:36 ; Admin Dose 100 MLS/HR; Start 02/04/17 at 15:00 Vancomycin HCl 250 ml @ 125 mls/hr Q12H IVPB Last administered on 02/17/17 05: 36; Admin Dose 125 MLS/HR; Start 02/05/17 at 06:00 Meropenem (Merrem 500 Mg/ 100 ml (Pmx)) 100 ml @ 200 mls/hr Q8 IVPB Last administered on 02/17/17 05:36; Admin Dose 200 MLS/HR; Start 02/05/17 at 22:00 Acetaminophen (Tylenol Liquid) 650 mg Q4H PRN GTB PAIN AND OR ELEVATED TEMP Last administered on 02/17/17 06:39; Admin Dose 650 MG; Start 02/05/17 at 18:30 Salmeterol Xinafoate/ Fluticasone (Advair 250/50 Diskus) 1 inh BID INH Last administered on 02/12/17 09:03; Admin Dose 1 INH; Start 02/07/17 at 11:00; Status Future Hold IV Flush (NS 10 ml) 10 ml PRN PRN IV IV PROTOCOL; Start 02/07/17 at 14:30 Diphenhydramine HCl 25 mg 25 mg Q6H PRN IV itching ; Start 02/07/17 at 20:00 Ondansetron HCl/ Sodium Chloride (Zofran Inj/NS) 54 ml @ 216 mls/hr Q6H PRN IV NAUSEA AND/OR VOMITING; Start 02/09/17 at 11:30 Prednisone (Prednisone) 40 mg DAILY PO Last administered on 02/12/17 09:03; Admin Dose 40 MG; Start 02/11/17 at 09:00; Status Future Hold Lorazepam (Ativan) 1 mg Q2 PRN IV AGITATION/ANXIETY Last administered on 01:51; Admin Dose 1 MG; Start 02/10/17 at 17:00 Lorazepam (Ativan) 1 mg Q1HWA PRN IM AGITATION/ANXIETY; Start 02/10/17 at 19:00 Trimethobenzamide HCl 200 mg 200 mg Q6H PRN IM NAUSEA AND/OR VOMITING; Start at 19:30 Norepinephrine 16 mg/Dextrose 500 ml @ 1.87 mls/hr TITRATE IV ; Start 02/13/17 at 12:00; Status Future hold Propofol 100 ml @ 2.202 mls/ hr Q12H IV Last administered on 02/17/17 07:04; Admin Dose 13.212 MLS/HR; Start 02/13/17 at 10:00 Total Parenteral Nutrition (Tpn) 1,000 ml @ 50 mls/hr Q20H IV Last administered on 02/17/17 00:57; Admin Dose 50 MLS/HR; Start 02/14/17 at 12:00 Diagnostic Test (Pha) 1 ea 1 ea Q4 XX Last administered on 02/17/17 05:32; Admin Dose 1 EA; Start 02/14/17 at 17:00 Caspofungin 50 mg/ Sodium Chloride 250 ml @ 250 mls/hr Q24H IVPB Last administered on 02/17/17 12:54; Admin Dose 250 MLS/HR; Start 02/16/17 at 12:00 Albumin Human (Albumin Human 25%) 50 ml @ 100 mls/hr Q8H IV Last administered on 02/17/17 10:24; Admin Dose 100 MLS/HR; Start 02/17/17 at 09:30; Stop 02/18/17 at 01:59 Keith Gandhi DO February 17, 2017 13:33
[2017-02-17] MEDS ORDERED: POTASSIUM CHLORIDE 20 MEQ POWDER FOR ORAL SOLN NGT ONE (14:00)
--- NOTE | 2017-02-17 14:28 | PN ---
Date/Time of Note Date/Time of Note DATE: 02/17/17 TIME: 09.00 Assessment/Plan VTE Prophylaxis VTE Prophylaxis Intervention: heparin Lines/Catheters IV Catheter Type (from Nrs): PICC Line Central line still needed: Yes Urinary Cath still in place: Yes Reason Cath still needed: other (indicate) Assessment/Plan Assessment/Plan IMPRESSION 1. Perforated sigmoid colon 2/2 Severe Crohn's colitis * S/p Urgent Open Cronin's procedure with end colostomy, liver biopsy and abdominal lavage 02/01/17P * S/p post operative paracolic abscess drained via CT 02/14/[address] * S/p Exploration of abdomen through recent laparotomy site with closure of fascia done 02/15/17 for Fascia dehiscence 2. Recurrent Resp failure: Extubated then reintubated 02/13: currently vent dependent 3. Exacerbation of Crohn's disease with acute colitis and diarrhea Cultures growing ecoli / proteus / enterococcus 4. Multifocal PNA + Mook Pleural effusions Effusions likely hydrostatic from hypoalbuminemia 5. Severe Sepsis with lactic acidosis 2/2 severe colitis / PNA 6. S/p Systemic shock (hypovolemic +septic) 7. TPN therapy for low prealbumin 8. Hx of heavy alcohol and tobacco use just until admission 9. Probable underlying COPD and Cirrhosis based on hx which explains hypoalbuminemia and anasarca 10. Severe recurrent anemia 11. Hypomagnesemia PLAN: * Continue current ICU care and Vent Mgt and weaning * Continue post Op wound care/ electrolyte management / TPN management * Planned for wound vac placement today * Agree with transfusion * Pulm also giving Lasix / albumin combo today * ID managing abx and antifungal * Replace electrolytes as needed * PRN pain control/ antiemetics/ antipyretics/ supportive care * Low dose heparin for prophylaxis CRITICAL CARE TIME: >35 mins Subjective 24 Hr Interval Summary Free Text/Dictation Patient seen and examined. Intubated and sedated for comfort, but no pressor support. Subjective hx not possible: pt non-verbal, pt critical status Exam/Review of Systems Vital Signs Vitals Vital Signs Date Time Temp Pulse Resp B/P Pulse Ox O2 Delivery O2 Flow Rate FiO2 02/17/17 14:00 95 20 105/65 96 Mechanical Ventilator 02/17/17 12:00 98.9 02/17/17 11:20 40 Intake and Output 02/16/17 02/16/17 02/17/17 15:00 23:00 07:00 Intake Total 1455.724 ml 776.060 ml 919.193 ml Output Total 490 ml 530 ml 420 ml Balance 965.724 ml 246.060 ml 499.193 ml Exam Constitutional: other (arousable, able to shake hands and move both upper extremities) Head: normocephalic Eyes: PERRL, icteric ENMT: intubated Respiratory: crackles/rales (coarse), diminished breath sounds, No labored breathing Cardiovascular: nl pulses, regular rate and rhythm Gastrointestinal: bowel sounds, distended (mildly), other (surgical wound clean and non oozing with mid line deficit, Colostomy to the Left still empty), soft Genitourinary - Male: other (still with scrotal and penile edema) Extremities: pitting pedal edema (+++) Neurological: lethargic, No unresponsive Skin: other (icteric) Results Result Diagram: 02/17/17 1200 02/17/17 1200 Results 24 hrs Laboratory Tests Test 02/16/17 17:23 02/16/17 21:35 02/17/17 01:06 02/17/17 04:00 Bedside Glucose 83 98 104 White Blood Count 15.0 H Red Blood Count 2.72 L Hemoglobin 7.7 L Hematocrit 24.8 L Mean Corpuscular Volume 91.2 Mean Corpuscular Hemoglobin 28.3 L Mean Corpuscular Hemoglobin Concent 31.0 L Red Cell Distribution Width 15.9 H Platelet Count 316 Mean Platelet Volume 11.4 H Neutrophils % 88.6 H Lymphocytes % 4.3 L Monocytes % 3.5 Eosinophils % 1.7 Basophils % 0.1 Nucleated Red Blood Cells % 0.0 Neutrophils # 13.2 H Lymphocytes # 0.7 L Monocytes # 0.5 Eosinophils # 0.3 Basophils # 0.0 Nucleated Red Blood Cells # 0.0 Sodium Level 144 Potassium Level 3.5 Chloride Level 113 H Carbon Dioxide Level 25 Anion Gap 10 Blood Urea Nitrogen 18 Creatinine 0.65 Glucose Level 97 Calcium Level 7.1 L Phosphorus Level 2.9 Magnesium Level 1.7 Test 02/17/17 05:20 02/17/17 09:22 02/17/17 12:00 02/17/17 13:04 Bedside Glucose 101 113 115 Hemoglobin 7.2 L Hematocrit 23.4 L Potassium Level 4.1 Magnesium Level 1.6 L Medications Medications Current Medications Hydromorphone HCl (Dilaudid) 1 mg Q4H PRN IV pain Last administered on 13:00; Admin Dose 1 MG; Start 02/01/17 at 03:30 Pantoprazole (Protonix Iv) 40 mg DAILY@06 IV Last administered on 02/17/17 05: 36; Admin Dose 40 MG; Start 02/01/17 at 06:00 Acetaminophen/ Hydrocodone Bitart ([place] (5/325)) 1 tab Q4H PRN PO PAIN LEVEL 4 -7 Last administered on 02/09/17 18:48; Admin Dose 1 TAB; Start 02/01/17 at 20: 30 Acetaminophen/ Hydrocodone Bitart ([place] (5/325)) 2 tab Q4H PRN PO PAIN LEVEL 7 -10; Start 02/01/17 at 20:30 Hydromorphone HCl (Dilaudid) 0.5 mg Q2 PRN IV PAIN Last administered on 23:52; Admin Dose 0.5 MG; Start 02/01/17 at 20:30 Hydromorphone HCl (Dilaudid) 1 mg Q2 PRN IV PAIN Last administered on 11:57; Admin Dose 1 MG; Start 02/01/17 at 20:30 Docusate Sodium (Colace) 100 mg BID PRN PO CONSTIPATION; Start 02/01/17 at 20: 30 Bisacodyl (Dulcolax Supp) 10 mg BID PRN [place] CONSTIPATION; Start 02/01/17 at 20: 30 Sodium Biphosphate/ Sodium Phosphate 133 ml 133 ml BID PRN [place] CONSTIPATION; Start 02/01/17 at 20:30 Metronidazole 100 ml @ 100 mls/hr Q8 IVPB Last administered on 02/17/17 05:36 ; Admin Dose 100 MLS/HR; Start 02/04/17 at 15:00 Vancomycin HCl 250 ml @ 125 mls/hr Q12H IVPB Last administered on 02/17/17 05: 36; Admin Dose 125 MLS/HR; Start 02/05/17 at 06:00 Meropenem (Merrem 500 Mg/ 100 ml (Pmx)) 100 ml @ 200 mls/hr Q8 IVPB Last administered on 02/17/17 05:36; Admin Dose 200 MLS/HR; Start 02/05/17 at 22:00 Acetaminophen (Tylenol Liquid) 650 mg Q4H PRN GTB PAIN AND OR ELEVATED TEMP Last administered on 02/17/17 06:39; Admin Dose 650 MG; Start 02/05/17 at 18:30 Salmeterol Xinafoate/ Fluticasone (Advair 250/50 Diskus) 1 inh BID INH Last administered on 02/12/17 09:03; Admin Dose 1 INH; Start 02/07/17 at 11:00; Status Future Hold IV Flush (NS 10 ml) 10 ml PRN PRN IV IV PROTOCOL; Start 02/07/17 at 14:30 Diphenhydramine HCl 25 mg 25 mg Q6H PRN IV itching ; Start 02/07/17 at 20:00 Ondansetron HCl/ Sodium Chloride (Zofran Inj/NS) 54 ml @ 216 mls/hr Q6H PRN IV NAUSEA AND/OR VOMITING; Start 02/09/17 at 11:30 Prednisone (Prednisone) 40 mg DAILY PO Last administered on 02/12/17 09:03; Admin Dose 40 MG; Start 02/11/17 at 09:00; Status Future Hold Lorazepam (Ativan) 1 mg Q2 PRN IV AGITATION/ANXIETY Last administered on 01:51; Admin Dose 1 MG; Start 02/10/17 at 17:00 Lorazepam (Ativan) 1 mg Q1HWA PRN IM AGITATION/ANXIETY; Start 02/10/17 at 19:00 Trimethobenzamide HCl 200 mg 200 mg Q6H PRN IM NAUSEA AND/OR VOMITING; Start at 19:30 Norepinephrine 16 mg/Dextrose 500 ml @ 1.87 mls/hr TITRATE IV ; Start 02/13/17 at 12:00; Status Future hold Propofol 100 ml @ 2.202 mls/ hr Q12H IV Last administered on 02/17/17 13:37; Admin Dose 17.616 MLS/HR; Start 02/13/17 at 10:00 Total Parenteral Nutrition (Tpn) 1,000 ml @ 50 mls/hr Q20H IV Last administered on 02/17/17 00:57; Admin Dose 50 MLS/HR; Start 02/14/17 at 12:00 Diagnostic Test (Pha) 1 ea 1 ea Q4 XX Last administered on 02/17/17 05:32; Admin Dose 1 EA; Start 02/14/17 at 17:00 Caspofungin 50 mg/ Sodium Chloride 250 ml @ 250 mls/hr Q24H IVPB Last administered on 02/17/17 12:54; Admin Dose 250 MLS/HR; Start 02/16/17 at 12:00 Albumin Human 50 ml @ 100 mls/hr Q8H IV Last administered on 02/17/17 10:24; Admin Dose 100 MLS/HR; Start 02/17/17 at 09:30; Stop 02/18/17 at 01:59 Magnesium Sulfate/ Sodium Chloride (Magnesium Sulfate/NS) 106 ml @ 35.333 mls/ hr ONCE ONCE IVPB ; Start 02/17/17 at 15:00; Stop 02/17/17 at 17:59 Procedures Procedures PROCEDURE: XR Chest 1 View. CLINICAL INDICATION: Shortness of breath TECHNIQUE: AP view of the chest was obtained. COMPARISON: Yesterday FINDINGS: The cardiomediastinal silhouette is within normal limits. Endotracheal and nasogastric tubes are stable right-sided PICC line is unchanged. Central pulmonary vascular congestion and interstitial prominence in both lungs is unchanged. Bilateral lower lung infiltrates, combined with small pleural effusions are stable. The osseous structures are unchanged. IMPRESSION: Stable central pulmonary vascular congestion and interstitial prominence in both lungs. Stable bilateral lower lung infiltrates, combined with small pleural effusions. RPTAT: AA .Schuyler Ugalde MD, Date Time Electronically viewed and signed by .Schuyler Ugalde MD, on 02/17/2017 11:40 .P/ CC: TAHMINA JHA BOLATITO M. February 17, 2017 14:28
[2017-02-17] MEDS ORDERED: MAGNESIUM SULFATE 2 GM/50 ML 50 ML IVPB ONE (14:30)
[2017-02-17] MEDS ORDERED: MAGNESIUM SULFATE 3 GM in SOD CHLORIDE 0.9% 100 ML IVPB ONE (15:00)
--- NOTE | 2017-02-17 17:54 | PN ---
Date/Time of Note Date/Time of Note DATE: 02/17/17 TIME: 17:51 Assessment/Plan VTE Prophylaxis VTE Prophylaxis Intervention: SCD's Lines/Catheters IV [facility] ([facility]): P[facility] Line Central line still needed: Yes Urinary Cath still in place: Yes Reason Cath still needed: urinary retention Assessment/Plan Assessment/Plan S/P exploration Fascial dehiscence Perforated sigmoid colon * Laparoscopic exploration,open sigmoid colectomy with Deena end colostomy with liver biopsy segment V h/o Crohn's disease Thrombocytopenia Liver Cirrhosis Plan: * continue present management * will reevaluate for Crohn disease once recovered from surgery Subjective 24 Hr Interval Summary Free Text/Dictation * Course reviewed with RN * Patient on TPN/tube feeding * afebrile Exam/Review of Systems Vital Signs Vitals Vital Signs Date Time Temp Pulse Resp B/P Pulse Ox O2 Delivery O2 Flow Rate FiO2 02/17/17 16:00 93 02/17/17 15:20 32 97 40 02/17/17 14:00 105/65 Mechanical Ventilator 02/17/17 12:00 98.9 Intake and Output 02/16/17 02/16/17 02/17/17 14:59 22:59 06:59 Intake Total 1608.936 ml 712.848 ml 872.405 ml Output Total 455 ml 510 ml 390 ml Balance 1153.936 ml 202.848 ml 482.405 ml Exam Constitutional: frail ENMT: intubated Neck: supple Respiratory: diminished breath sounds, normal air movement Cardiovascular: nl pulses, regular rate and rhythm Gastrointestinal: non-tender, soft, No rebound or guarding Musculoskeletal: nl extremities to inspection Extremities: normal pulses Results Result Diagram: 02/17/17 1200 02/17/17 1200 Results 24 hrs Laboratory Tests Test 02/16/17 21:35 02/17/17 01:06 02/17/17 04:00 02/17/17 05:20 Bedside Glucose 98 104 101 White Blood Count 15.0 H Red Blood Count 2.72 L Hemoglobin 7.7 L Hematocrit 24.8 L Mean Corpuscular Volume 91.2 Mean Corpuscular Hemoglobin 28.3 L Mean Corpuscular Hemoglobin Concent 31.0 L Red Cell Distribution Width 15.9 H Platelet Count 316 Mean Platelet Volume 11.4 H Neutrophils % 88.6 H Lymphocytes % 4.3 L Monocytes % 3.5 Eosinophils % 1.7 Basophils % 0.1 Nucleated Red Blood Cells % 0.0 Neutrophils # 13.2 H Lymphocytes # 0.7 L Monocytes # 0.5 Eosinophils # 0.3 Basophils # 0.0 Nucleated Red Blood Cells # 0.0 Sodium Level 144 Potassium Level 3.5 Chloride Level 113 H Carbon Dioxide Level 25 Anion Gap 10 Blood Urea Nitrogen 18 Creatinine 0.65 Glucose Level 97 Calcium Level 7.1 L Phosphorus Level 2.9 Magnesium Level 1.7 Test 02/17/17 09:22 02/17/17 12:00 02/17/17 13:04 02/17/17 17:47 Bedside Glucose 113 115 103 Hemoglobin 7.2 L Hematocrit 23.4 L Potassium Level 4.1 Magnesium Level 1.6 L Medications Medications Current Medications Hydromorphone HCl (Dilaudid) 1 mg Q4H PRN IV pain Last administered on 13:00; Admin Dose 1 MG; Start 02/01/17 at 03:30 Pantoprazole (Protonix Iv) 40 mg DAILY@06 IV Last administered on 02/17/17 05: 36; Admin Dose 40 MG; Start 02/01/17 at 06:00 Acetaminophen/ Hydrocodone Bitart ([place] (5/325)) 1 tab Q4H PRN PO PAIN LEVEL 4 -7 Last administered on 02/09/17 18:48; Admin Dose 1 TAB; Start 02/01/17 at 20: 30 Acetaminophen/ Hydrocodone Bitart ([employer] (5/325)) 2 tab Q4H PRN PO PAIN LEVEL 7 -10; Start 02/01/17 at 20:30 Hydromorphone HCl (Dilaudid) 0.5 mg Q2 PRN IV PAIN Last administered on 23:52; Admin Dose 0.5 MG; Start 02/01/17 at 20:30 Hydromorphone HCl (Dilaudid) 1 mg Q2 PRN IV PAIN Last administered on 11:57; Admin Dose 1 MG; Start 02/01/17 at 20:30 Docusate Sodium (Colace) 100 mg BID PRN PO CONSTIPATION; Start 02/01/17 at 20: 30 Bisacodyl (Dulcolax Supp) 10 mg BID PRN [place] CONSTIPATION; Start 02/01/17 at 20: 30 Sodium Biphosphate/ Sodium Phosphate 133 ml 133 ml BID PRN [place] CONSTIPATION; Start 02/01/17 at 20:30 Metronidazole 100 ml @ 100 mls/hr Q8 IVPB Last administered on 02/17/17 14:50 ; Admin Dose 100 MLS/HR; Start 02/04/17 at 15:00 Vancomycin HCl 250 ml @ 125 mls/hr Q12H IVPB Last administered on 02/17/17 05: 36; Admin Dose 125 MLS/HR; Start 02/05/17 at 06:00 Meropenem (Merrem 500 Mg/ 100 ml (Pmx)) 100 ml @ 200 mls/hr Q8 IVPB Last administered on 02/17/17 14:50; Admin Dose 200 MLS/HR; Start 02/05/17 at 22:00 Acetaminophen (Tylenol Liquid) 650 mg Q4H PRN GTB PAIN AND OR ELEVATED TEMP Last administered on 02/17/17 06:39; Admin Dose 650 MG; Start 02/05/17 at 18:30 Salmeterol Xinafoate/ Fluticasone (Advair 250/50 Diskus) 1 inh BID INH Last administered on 02/12/17 09:03; Admin Dose 1 INH; Start 02/07/17 at 11:00; Status Future Hold IV Flush (NS 10 ml) 10 ml PRN PRN IV IV PROTOCOL; Start 02/07/17 at 14:30 Diphenhydramine HCl 25 mg 25 mg Q6H PRN IV itching ; Start 02/07/17 at 20:00 Ondansetron HCl/ Sodium Chloride (Zofran Inj/NS) 54 ml @ 216 mls/hr Q6H PRN IV NAUSEA AND/OR VOMITING; Start 02/09/17 at 11:30 Prednisone (Prednisone) 40 mg DAILY PO Last administered on 02/12/17 09:03; Admin Dose 40 MG; Start 02/11/17 at 09:00; Status Future Hold Lorazepam (Ativan) 1 mg Q2 PRN IV AGITATION/ANXIETY Last administered on 01:51; Admin Dose 1 MG; Start 02/10/17 at 17:00 Lorazepam (Ativan) 1 mg Q1HWA PRN IM AGITATION/ANXIETY; Start 02/10/17 at 19:00 Trimethobenzamide HCl 200 mg 200 mg Q6H PRN IM NAUSEA AND/OR VOMITING; Start at 19:30 Norepinephrine 16 mg/Dextrose 500 ml @ 1.87 mls/hr TITRATE IV ; Start 02/13/17 at 12:00; Status Future hold Propofol 100 ml @ 2.202 mls/ hr Q12H IV Last administered on 02/17/17 13:37; Admin Dose 17.616 MLS/HR; Start 02/13/17 at 10:00 Total Parenteral Nutrition (Tpn) 1,000 ml @ 50 mls/hr Q20H IV Last administered on 02/17/17 00:57; Admin Dose 50 MLS/HR; Start 02/14/17 at 12:00 Diagnostic Test (Pha) 1 ea 1 ea Q4 XX Last administered on 02/17/17 05:32; Admin Dose 1 EA; Start 02/14/17 at 17:00 Caspofungin 50 mg/ Sodium Chloride 250 ml @ 250 mls/hr Q24H IVPB Last administered on 02/17/17 12:54; Admin Dose 250 MLS/HR; Start 02/16/17 at 12:00 Albumin Human 50 ml @ 100 mls/hr Q8H IV Last administered on 02/17/17 17:37; Admin Dose 100 MLS/HR; Start 02/17/17 at 09:30; Stop 02/18/17 at 01:59 Magnesium Sulfate/ Sodium Chloride (Magnesium Sulfate/NS) 106 ml @ 35.333 mls/ hr ONCE ONCE IVPB ; Start 02/17/17 at 15:00; Stop 02/17/17 at 17:59 Miscellaneous Information (*Rx Drug Level Order Reminder*) VANCO TR LEVEL PRIOR... ONCE ONCE XX ; Start 02/18/17 at 17:00; Stop 02/18/17 at 17:01 Furosemide (Lasix) 20 mg Q6 IV ; Start 02/18/17 at 00:00 SANDRA DAVIS MD February 17, 2017 17:54
[2017-02-18] VITALS (59 sets, daily range): BP systolic 100–131; BP diastolic 62–99; PULSE 85–124; RESP 13–35
[2017-02-18] MEDS: FUROSEMIDE 20 MG INJ IV SCH ×4 (00:10→17:22)
[2017-02-18] MEDS: PROPOFOL 100 ML IV SCH ×3 (00:49→14:00)
[2017-02-18] MEDS: ACCU-CHEK XX SCH ×6 (01:00→21:08)
[2017-02-18] MEDS: ALBUMIN HUMAN 25% 50 ML IV SCH (01:01)
[2017-02-18 04:50] LABS: ADD SCAN DIFF NO
[2017-02-18 05:02] LABS: BASOPHILS % 0.1 % (0.0-2.0); EOSINOPHILS # 0.2 10^3/ul (0.0-0.5); EOSINOPHILS % 1.5 % (0.0-7.0); HEMATOCRIT 26.9 % (42.0-52.0); HEMOGLOBIN 8.5 g/dl (14.0-18.0); LYMPHOCYTES # 0.7 10^3/ul (0.8-2.9); LYMPHOCYTES % 4.2 % (15.0-51.0); MEAN CORPUSCULAR HEMOGLOBIN 28.2 pg (29.0-33.0); MEAN CORPUSCULAR HGB CONC 31.6 g/dl (32.0-37.0); MEAN CORPUSCULAR VOLUME 89.4 fl (82.0-101.0); MEAN PLATELET VOLUME 11.7 fl (7.4-10.4); MONOCYTE # 0.7 10^3/ul (0.3-0.9); MONOCYTES % 4.5 % (0.0-11.0); PLATELET COUNT 299 10^3/UL (140-415); RED BLOOD COUNT 3.01 10^6/ul (4.70-6.10)
[2017-02-18 05:16] LABS: POTASSIUM 3.6 mmol/L (3.5-5.1)
[2017-02-18 05:19] LABS: CREATININE 0.69 mg/dl (0.61-1.24)
[2017-02-18 05:20] LABS: CALCIUM 7.5 mg/dl (8.4-10.2); MAGNESIUM 1.7 mg/dl (1.7-2.5); PHOSPHORUS 3.2 mg/dl (2.5-4.9)
[2017-02-18] MEDS: PANTOPRAZOLE 40 MG INJ IV SCH (05:40)
[2017-02-18] MEDS: VANCOMYCIN 1 GM in NS 250 ML IVPB SCH ×2 (05:41→17:22)
[2017-02-18] MEDS: MEROPENEM 500 MG/100 ML (PMX) 100 ML IVPB SCH ×3 (05:41→21:45)
[2017-02-18 05:44] LABS: NEUTROPHILS % 87.6 % (39.0-77.0)
--- NOTE | 2017-02-18 06:49 | PN ---
DATE: 02/17/2017 SUBJECTIVE: The patient spiked fever this morning of 101.3. Per report, he was pancultured He is in no distress, intubated and sedated. VITAL SIGNS: Temperature currently 98.8, pulse 97, respirations 29, blood pressure 109/75, saturation 96% on 35% FIO2. LABORATORY DATA: WBC 15, H and H 7.7 and 24.8, platelets 316, neutrophils 88.6, no bands. BUN 18 , creatinine 0.65. MICROBIOLOGY: Intraoperative cultures since 02/14/2017 remain negative. INDWELLINGS: Endotracheal tube, NG tube, Zeng catheter, left-sided intra- abdominal catheter and PICC line placed on 02/14/2017 ANTIMICROBIALS: The patient is on: 1. Cancidas. 2. Meropenem. 3. Vancomycin. 4. Flagyl. PHYSICAL EXAMINATION: GENERAL: Well-developed, middle-aged white man who is in no distress. HEENT: Head atraumatic, normocephalic. Sclerae anicteric. Buccal mucosa dry. NECK: Supple, trachea midline. CHEST: Rise symmetrical. Breath sounds diminished to bases. HEART: S1, S2. ABDOMEN: Distended, bowel sounds hypoactive. EXTREMITIES: With bilateral edema. ASSESSMENT: 1. Sepsis. 2. Status post perforated viscus repair on 02/01/2017, complicated by intra- abdominal abscess, status post fluid collection drainage on 02/14/2017. 3. Status post exploration of the abdomen, closure of fascia and abdominal lavage on 02/24/2017. 4. Respiratory failure. 5. Pneumonia. 6. History of Crohn's disease. PLAN: The patient remains hemodynamically stable. Surgery on case. Pulmonary , gastroenterology, cardiology follows him as well. He is covered with broad- spectrum antibiotics. Panculture was done this morning. Dictated By: THOMAS ELLIS [employer] EXP[employer]ER for MICKY REYES MD NI/NTS Conf#: [id number] DID#: [id number]
[2017-02-18] MEDS: metroNIDAZOLE 500 MG/NS (PMX) 100 ML IVPB SCH ×3 (06:53→21:45)
[2017-02-18 08:24] LABS: POST-TRANSFUSION BILIRUBIN 0.1 mg/dl
[2017-02-18] MEDS: ACETAMINOPHEN 650MG/20.3ML CUP GTB PRN (08:34)
--- NOTE | 2017-02-18 09:50 | CONS ---
Date/Time of Note Date/Time of Note DATE: 02/18/17 TIME: 09:46 Assessment/Plan Assessment/Plan Additional Assessment/Plan Ventilator setting; AC of 18, tidal volume 550, PEEP of 5, 30% FiO2. The patient currently on propofol at 40 mics per milligram per minute. ABN's continue. Patient also tube feeding centimeters per hour. Next Assessment recommendations; 1. Patient admitted for diverticulitis with perforated sigmoid colon status post laparoscopic sigmoidectomy with colostomy. 2. Episode of aortic arrest on the floor requiring brief CPR with preservation of adequate mental status. 3. Ongoing sepsis, with interval improvement. 4. Patient status post reexploration of the abdomen, no obvious pathology was discovered. 5. Generalized edema, patient started on intravenous Lasix and albumin. 6. Bilateral pleural effusions, radiologically improved. 7. Anemia. 8. Improving ileus. Obtain a chest x-ray. Hold sedation. Once x-ray is done I will reviewed and make further recommendations regarding weaning from ventilator. 35 minutes of critical care time was spent evaluating the patient. Consultation Date/Type/Reason Admit Date/Time Feb 01, 2017 at 03:10 Initial Consult Date 02/02/17 Type of Consultation: Pulmonary/critical care Referring Provider: VINCE PADGETT 24 HR Interval Summary Free Text/Dictation Patient condition remains critical. Still requiring full ventilator support. Patient however has remained hemodynamically stable, not requiring any pressor support. General exam; young male, orally intubated, arousable. Currently in no distress. Exam/Review of Systems Vital Signs Vitals Vital Signs Date Time Temp Pulse Resp B/P Pulse Ox O2 Delivery O2 Flow Rate FiO2 02/18/17 09:27 96 26 95 30 02/18/17 06:30 108/70 02/18/17 06:00 99.6 Mechanical Ventilator Intake and Output 02/17/17 02/17/17 02/18/17 15:00 23:00 07:00 Intake Total 1162.886 ml 1820.928 ml 918.312 ml Output Total 1350 ml 595 ml 1780 ml Balance -187.114 ml 1225.928 ml -861.688 ml Exam HEENT exam is; supple neck, no JVD. No lymphadenopathy. Midline trachea. No thyromegaly. Orally intubated. Patient has fair dentition. Pupils are small bilaterally. Chest examination; diminished but clear breath sounds bilaterally. S1-S2 audible, normal murmurs. Regular rhythm. Abdomen examination; soft, colostomy in place. Midline dressing in place. Bowel sounds are audible. Extremity exam is; decreased generalized anasarca. INFORMATION SYSTEMS ARCHITECT examination; patient is mildly sedated but arousable. Results Result Diagram: 02/18/17 0330 02/18/17 0330 Results 24 hrs Laboratory Tests Test 02/17/17 12:00 02/17/17 13:00 02/17/17 13:04 02/17/17 17:47 Hemoglobin 7.2 L Hematocrit 23.4 L Potassium Level 4.1 Magnesium Level 1.6 L Stool Occult Blood NEGATIVE Bedside Glucose 115 103 Test 02/17/17 21:32 02/18/17 01:00 02/18/17 03:30 02/18/17 05:25 Bedside Glucose 103 107 102 White Blood Count 16.0 H Red Blood Count 3.01 L Hemoglobin 8.5 L Hematocrit 26.9 L Mean Corpuscular Volume 89.4 Mean Corpuscular Hemoglobin 28.2 L Mean Corpuscular Hemoglobin Concent 31.6 L Red Cell Distribution Width 16.0 H Platelet Count 299 Mean Platelet Volume 11.7 H Neutrophils % 87.6 H Lymphocytes % 4.2 L Monocytes % 4.5 Eosinophils % 1.5 Basophils % 0.1 Nucleated Red Blood Cells % 0.0 Neutrophils # 14.0 H Lymphocytes # 0.7 L Monocytes # 0.7 Eosinophils # 0.2 Basophils # 0.0 Nucleated Red Blood Cells # 0.0 Sodium Level 142 Potassium Level 3.6 Chloride Level 110 Carbon Dioxide Level 25 Anion Gap 11 Blood Urea Nitrogen 18 Creatinine 0.69 Glucose Level 105 Calcium Level 7.5 L Phosphorus Level 3.2 Magnesium Level 1.7 Test 02/18/17 05:26 02/18/17 08:53 Lab Scanned Report BLOOD TRANSFUSION Bedside Glucose 113 Medications Medications Current Medications Hydromorphone HCl (Dilaudid) 1 mg Q4H PRN IV pain Last administered on 13:00; Admin Dose 1 MG; Start 02/01/17 at 03:30 Pantoprazole (Protonix Iv) 40 mg DAILY@06 IV Last administered on 02/18/17 05: 40; Admin Dose 40 MG; Start 02/01/17 at 06:00 Acetaminophen/ Hydrocodone Bitart ([place] (5/325)) 1 tab Q4H PRN PO PAIN LEVEL 4 -7 Last administered on 02/09/17 18:48; Admin Dose 1 TAB; Start 02/01/17 at 20: 30 Acetaminophen/ Hydrocodone Bitart ([place] (5/325)) 2 tab Q4H PRN PO PAIN LEVEL 7 -10; Start 02/01/17 at 20:30 Hydromorphone HCl (Dilaudid) 0.5 mg Q2 PRN IV PAIN Last administered on 23:52; Admin Dose 0.5 MG; Start 02/01/17 at 20:30 Hydromorphone HCl (Dilaudid) 1 mg Q2 PRN IV PAIN Last administered on 11:57; Admin Dose 1 MG; Start 02/01/17 at 20:30 Docusate Sodium (Colace) 100 mg BID PRN PO CONSTIPATION; Start 02/01/17 at 20: 30 Bisacodyl (Dulcolax Supp) 10 mg BID PRN [place] CONSTIPATION; Start 02/01/17 at 20: 30 Sodium Biphosphate/ Sodium Phosphate 133 ml 133 ml BID PRN [place] CONSTIPATION; Start 02/01/17 at 20:30 Metronidazole 100 ml @ 100 mls/hr Q8 IVPB Last administered on 02/18/17 06:53 ; Admin Dose 100 MLS/HR; Start 02/04/17 at 15:00 Vancomycin HCl 250 ml @ 125 mls/hr Q12H IVPB Last administered on 02/18/17 05: 41; Admin Dose 125 MLS/HR; Start 02/05/17 at 06:00 Meropenem (Merrem 500 Mg/ 100 ml (Pmx)) 100 ml @ 200 mls/hr Q8 IVPB Last administered on 02/18/17 05:41; Admin Dose 200 MLS/HR; Start 02/05/17 at 22:00 Acetaminophen (Tylenol Liquid) 650 mg Q4H PRN GTB PAIN AND OR ELEVATED TEMP Last administered on 02/18/17 08:34; Admin Dose 650 MG; Start 02/05/17 at 18:30 Salmeterol Xinafoate/ Fluticasone (Advair 250/50 Diskus) 1 inh BID INH Last administered on 02/12/17 09:03; Admin Dose 1 INH; Start 02/07/17 at 11:00; Status Future Hold IV Flush (NS 10 ml) 10 ml PRN PRN IV IV PROTOCOL; Start 02/07/17 at 14:30 Diphenhydramine HCl 25 mg 25 mg Q6H PRN IV itching ; Start 02/07/17 at 20:00 Ondansetron HCl/ Sodium Chloride (Zofran Inj/NS) 54 ml @ 216 mls/hr Q6H PRN IV NAUSEA AND/OR VOMITING; Start 02/09/17 at 11:30 Prednisone (Prednisone) 40 mg DAILY PO Last administered on 02/12/17 09:03; Admin Dose 40 MG; Start 02/11/17 at 09:00; Status Future Hold Lorazepam (Ativan) 1 mg Q2 PRN IV AGITATION/ANXIETY Last administered on 01:51; Admin Dose 1 MG; Start 02/10/17 at 17:00 Lorazepam (Ativan) 1 mg Q1HWA PRN IM AGITATION/ANXIETY; Start 02/10/17 at 19:00 Trimethobenzamide HCl 200 mg 200 mg Q6H PRN IM NAUSEA AND/OR VOMITING; Start at 19:30 Norepinephrine 16 mg/Dextrose 500 ml @ 1.87 mls/hr TITRATE IV ; Start 02/13/17 at 12:00; Status Future hold Propofol 100 ml @ 2.202 mls/ hr Q12H IV Last administered on 02/18/17 05:23; Admin Dose 17.616 MLS/HR; Start 02/13/17 at 10:00 Total Parenteral Nutrition (Tpn) 1,000 ml @ 50 mls/hr Q20H IV Last administered on 02/17/17 22:42; Admin Dose 50 MLS/HR; Start 02/14/17 at 12:00 Diagnostic Test (Pha) 1 ea 1 ea Q4 XX Last administered on 02/18/17 05:25; Admin Dose 1 EA; Start 02/14/17 at 17:00 Caspofungin/ Sodium Chloride (Cancidas/NS) 250 ml @ 250 mls/hr Q24H IVPB Last administered on 02/17/17 12:54; Admin Dose 250 MLS/HR; Start 02/16/17 at 12:00 Miscellaneous Information (*Rx Drug Level Order Reminder*) VANCO TR LEVEL PRIOR... ONCE ONCE XX ; Start 02/18/17 at 17:00; Stop 02/18/17 at 17:01 Furosemide (Lasix) 20 mg Q6 IV Last administered on 02/18/17t 05:40; Admin Dose 20 MG; Start 02/18/17 at 00:00 RICHAR ADRIAN February 18, 2017 09:50
[2017-02-18 11:27] LABS: AADO2 Arterial 104.8 mmHg (7.0-24.0); Allen Test ACCEPTAB; Arterial Base Excess 1.5 mmol/L (-3.0-3); Arterial COHb 0.3 % (0.0-3.0); Arterial Fraction of Oxyhgb 92.5 % (93.0-99.0); Arterial MetHb 0.2 % (0.0-1.5); Arterial Total Hemglobin 9.3 g/dl (12.0-18.0); Blood Gas PS 10; MODE VENT - CPAP
[2017-02-18] MEDS: CASPOFUNGIN 50 MG in SOD CHLORIDE 0.9% 250 ML IVPB SCH (12:07)
--- NOTE | 2017-02-18 12:08 | PN ---
DATE: 02/17/2017 SUBJECTIVE: The patient is in CPAP, awake, follows commands, looks comfortable. He is afebrile. VITAL SIGNS: Temperature max this morning 100.8, heart rate 95, respirations 26, blood pressure 116 /68, saturation 100% on 30% FIO2. LABORATORY DATA: WBC 16, H and H 8.5 and 26.9, platelets 299, neutrophils 87.6. BUN 18, creatinine 0.69. MICROBIOLOGY: Blood and urine cultures since 02/14/2017 remain negative. INDWELLINGS: Endotracheal tube, NG tube, Zeng catheter, intra-abdominal catheter and PICC line. ANTIMICROBIALS: 1. Cancidas. 2. Meropenem. 3. Vancomycin. 4. Flagyl. PHYSICAL EXAMINATION: GENERAL: This is a chronically ill-appearing, middle-aged white man who is awake, in no distress. HEENT: Head atraumatic, normocephalic. Sclerae anicteric. Buccal mucosa dry. NECK: Supple, trachea midline. CHEST: Rise symmetrical. Breath sounds with scattered rhonchi. HEART: S1, S2. ABDOMEN: Distended. Mid abdominal dressing intact. Bowel sounds hyperactive. EXTREMITIES: With bilateral lower extremity edema. ASSESSMENT: 1. Sepsis with low-grade fevers and leukocytosis. 2. Status post perforated viscus repair on 02/01/2017 complicated by intra-abdominal abscess draina ge on 02/14/2017. 3. Status post exploration of the abdomen, closure of fascia and abdominal lavage on 02/15/2017. 4. Respiratory failure, possible pneumonia. 5. History of Crohn's disease. PLAN: The patient remains hemodynamically stable. So far tolerates weaning trials. He is covered with broad-spectrum antibiotics. Dictated By: THOMAS ELLIS BURGLAR ALARM SUPERINTENDENT for MICKY RAMÍREZ/NTS Conf#: [id number] DID#: [id number]
--- NOTE | 2017-02-18 14:33 | PN ---
Date/Time of Note Date/Time of Note DATE: 02/18/17 TIME: 14:31 Assessment/Plan Lines/Catheters IV Catheter Type (from Nrsg): PICC Line Zeng in Place (from Nrsg): Yes Assessment/Plan Assessment/Plan [facility] Progress Note Date of Service: 02/18/17 Today's Impression & Plan: Overall stable. Still on the vent. No obvious issues with the wound and sutures holding well, now with wound vac. Abd remains benign. Still with pulmonary issues exacerbated by ETOH withdrawal. No indication for acute surgical intervention. Remains high risk for complication given perforated colon in the setting of uncontrolled Crohn's. Recovery will take extra time with likely need for rehab. D/w team. With above assessment, I've recommended the following for today: 1. Cont current cares in ICU 2. F/u on cultures 3. Cont TPN 4. Treat ETOH withdrawal 5. Cont gentle diuresis to BMP < 200 6. Social work and case management to please start working on possible rehab vs. home health nurse set up 7. Increase activity 8. Increase ICS 9. Cont broad spec antimicrobials 10. Labs in am 11. Cont current wound care with wound vac 12. Increase gastric feeds to goal rate as tolerated Thank you again for your great care of this very pleasant patient and wonderful family. If there are any questions, please feel free to call me at [phone]. TOTAL VISIT TIME: 20 minutes of which more than half was spent in [id number] discussion with the patient, possibly including family, as well as coordination of care between multiple physicians and providers. Disclaimer: Inadvertent spelling or grammatical errors are likely due to EHR/ dictation software use and do not reflect on the overall quality of patient care. Updated Clinical Summary: A very pleasant 46-year-old gentleman with history of Crohn's disease as well as prior surgery for anal fistula approximately 5 years ago, and a torn meniscus repair on the left knee, presenting with abdominal pain associated with a few weeks' duration of diarrhea. S/p an otherwise uncomplicated diagnostic laparoscopy was converted first to hand assist and then to open exploration when perforated sigmoid colon was found and it was resected with a Deena type procedure and end colostomy as well as core needle liver biopsy, segment 5, due to presence of fatty liver disease, lysis of adhesions, and abdominal lavage on 02/01/17. Failed to wean off the vent through 02/06/17. PE was evaluated 02/07/[address] angio and no evidence found. CT abd/pelvis also did not show actionable findings (no abscess; bowel thickening somewhat expected). Extubated 02/07/17. 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 Fortunately, mentally appears to be intact and not on pressors. Lactic acid and CO2 normal with benign appearing abd and viable ostomy. Complicated by fascia dehiscence. S/p exploration of abdomen through recent laparotomy, primary closure of fascia and abdominal lavage on 02/15/17. COMORBIDITIES: 1. Crohn disease with perforation of sigmoid colon and sepsis. S/p an otherwise uncomplicated diagnostic laparoscopy was converted first to hand assist and then to open exploration when perforated sigmoid colon was found and it was resected with a Deena type procedure and end colostomy as well as core needle liver biopsy, segment 5, due to presence of fatty liver disease, lysis of adhesions, and abdominal lavage on 02/01/17. Complicated by respiratory failure, return trip to ICU and fascia dehiscence. S/p exploration of abdomen through recent laparotomy, primary closure of fascia and abdominal lavage on 02/15. 2. Repair of a fistula approximately 5 years ago. 3. Torn meniscus on the left knee status post repair. Subjective: No major events overnight; no major complaints; arousable but sedated; does not appear to report abd pain when asked; + BM Objective: Vitals: See below Exam: GENERAL: On exam, the patient was laying in bed and appeared to be comfortable and in no acute distress. Intubated. ABDOMEN: Soft, nontender and nondistended. Incision wound vac dressings are clean without any evidence of obvious erythema, edema, discharge, or hernia. Surgery drain site clean. Ostomy pink and viable; some air and stool in the bag. There are no peritoneal signs or guarding. SKIN: Skin appears to be pink and feels warm to touch. NEUROLOGIC: Patient is sedated, but appears to wake up to voice and does not follow commands appropriately. Exam/Review of Systems Vital Signs Vitals Vital Signs Date Time Temp Pulse Resp B/P Pulse Ox O2 Delivery O2 Flow Rate FiO2 02/18/17 13:45 84 27 95 30 02/18/17 12:30 106/68 Mechanical Ventilator 02/18/17 12:00 97.6 Intake and Output 02/17/17 02/17/17 02/18/17 15:00 23:00 07:00 Intake Total 1162.886 ml 1820.928 ml 935.928 ml Output Total 1350 ml 595 ml 1780 ml Balance -187.114 ml 1225.928 ml -844.072 ml Results Result Diagram: 02/18/17 0330 02/18/17 0330 TI HILTON M.D. February 18, 2017 14:33
--- NOTE | 2017-02-18 14:40 | CONS ---
Date/Time of Note Date/Time of Note DATE: 02/18/17 TIME: 14:39 Assessment/Plan Assessment/Plan Additional Assessment/Plan Perforated colon status post surgery Severe sepsis Respiratory failure-reintubated Low normal ejection fraction 50% Volume overload Crohn's disease Acute blood loss anemia -Lower extremity edema improving. Continue IV diuretics as blood pressure and renal function permits. Supplement potassium to maintain above 4.0 and magnesium above 2.0. Consultation Date/Type/Reason Admit Date/Time Feb 01, 2017 at 03:10 Initial Consult Date 02/02/17 Type of Consultation: cv Referring Provider: VINCE PADGETT 24 HR Interval Summary Free Text/Dictation Patient seen and examined, no new cardiac issues as per nursing staff Exam/Review of Systems Vital Signs Vitals Vital Signs Date Time Temp Pulse Resp B/P Pulse Ox O2 Delivery O2 Flow Rate FiO2 02/18/17 13:45 84 27 95 30 02/18/17 12:30 106/68 Mechanical Ventilator 02/18/17 12:00 97.6 Intake and Output 02/17/17 02/17/17 02/18/17 15:00 23:00 07:00 Intake Total 1162.886 ml 1820.928 ml 935.928 ml Output Total 1350 ml 595 ml 1780 ml Balance -187.114 ml 1225.928 ml -844.072 ml Exam Sedated but opens his eyes to his name, no apparent distress Head: normocephalic ENMT: intubated Respiratory: other (Coarse breath sounds bilaterally, no wheezing) Cardiovascular: other (S1-S2 heard), regular rate and rhythm Gastrointestinal: bowel sounds, non-tender, other (Bandages), soft Extremities: edema Results Result Diagram: 02/18/17 0330 02/18/17 0330 Results 24 hrs Laboratory Tests Test 02/17/17 17:47 02/17/17 21:32 02/18/17 01:00 02/18/17 03:30 Bedside Glucose 103 103 107 White Blood Count 16.0 H Red Blood Count 3.01 L Hemoglobin 8.5 L Hematocrit 26.9 L Mean Corpuscular Volume 89.4 Mean Corpuscular Hemoglobin 28.2 L Mean Corpuscular Hemoglobin Concent 31.6 L Red Cell Distribution Width 16.0 H Platelet Count 299 Mean Platelet Volume 11.7 H Neutrophils % 87.6 H Lymphocytes % 4.2 L Monocytes % 4.5 Eosinophils % 1.5 Basophils % 0.1 Nucleated Red Blood Cells % 0.0 Neutrophils # 14.0 H Lymphocytes # 0.7 L Monocytes # 0.7 Eosinophils # 0.2 Basophils # 0.0 Nucleated Red Blood Cells # 0.0 Sodium Level 142 Potassium Level 3.6 Chloride Level 110 Carbon Dioxide Level 25 Anion Gap 11 Blood Urea Nitrogen 18 Creatinine 0.69 Glucose Level 105 Calcium Level 7.5 L Phosphorus Level 3.2 Magnesium Level 1.7 Test 02/18/17 05:25 02/18/17 05:26 02/18/17 08:53 02/18/17 11:15 Bedside Glucose 102 113 Lab Scanned Report BLOOD TRANSFUSION Blood Gas Specimen Source Blood arterial Arterial Blood Date Drawn 02/18/2017 11:15:29 AM Arterial Blood pH (Temp corrected) 7.472 H Arterial Blood pCO2 (Temp correct) 35.0 Arterial Blood pO2 (Temp corrected) 68.0 L Arterial Blood HCO3 25.0 Arterial Blood Base Excess 1.5 Arterial Blood Oxygen Saturation 93.0 L Raffy Test ACCEPTAB Arterial Blood Gas Puncture Site Right Radial Arterial Blood Carboxyhemoglobin 0.3 Arterial Blood Methemoglobin 0.2 Blood Gas A-a O2 Differential 104.8 H Oxyhemoglobin Percent 92.5 L Total Hemoglobin 9.3 L Blood Gas Temperature 37.0 Blood Gas Actual Respiration Rate 27 Blood Gas Modality VENT - CPAP FiO2 30.0 Blood Gas Low PEEP Setting 5.0 Blood Gas Pressure Support 10 Blood Gas Notified Whom JLD Blood Gas Notified Time 02/18/2017 11:27:13 AM Test 02/18/17 11:54 02/18/17 13:14 Lab Scanned Report REFERENCE LAB Bedside Glucose 115 Medications Medications Current Medications Hydromorphone HCl (Dilaudid) 1 mg Q4H PRN IV pain Last administered on 13:00; Admin Dose 1 MG; Start 02/01/17 at 03:30 Pantoprazole (Protonix Iv) 40 mg DAILY@06 IV Last administered on 02/18/17 05: 40; Admin Dose 40 MG; Start 02/01/17 at 06:00 Acetaminophen/ Hydrocodone Bitart ([place] (5/325)) 1 tab Q4H PRN PO PAIN LEVEL 4 -7 Last administered on 02/09/17 18:48; Admin Dose 1 TAB; Start 02/01/17 at 20: 30 Acetaminophen/ Hydrocodone Bitart ([place] (5/325)) 2 tab Q4H PRN PO PAIN LEVEL 7 -10; Start 02/01/17 at 20:30 Hydromorphone HCl (Dilaudid) 0.5 mg Q2 PRN IV PAIN Last administered on 23:52; Admin Dose 0.5 MG; Start 02/01/17 at 20:30 Hydromorphone HCl (Dilaudid) 1 mg Q2 PRN IV PAIN Last administered on 11:57; Admin Dose 1 MG; Start 02/01/17 at 20:30 Docusate Sodium (Colace) 100 mg BID PRN PO CONSTIPATION; Start 02/01/17 at 20: 30 Bisacodyl (Dulcolax Supp) 10 mg BID PRN [place] CONSTIPATION; Start 02/01/17 at 20: 30 Sodium Biphosphate/ Sodium Phosphate 133 ml 133 ml BID PRN [place] CONSTIPATION; Start 02/01/17 at 20:30 Metronidazole 100 ml @ 100 mls/hr Q8 IVPB Last administered on 02/18/17 14:09 ; Admin Dose 100 MLS/HR; Start 02/04/17 at 15:00 Vancomycin HCl 250 ml @ 125 mls/hr Q12H IVPB Last administered on 02/18/17 05: 41; Admin Dose 125 MLS/HR; Start 02/05/17 at 06:00 Meropenem (Merrem 500 Mg/ 100 ml (Pmx)) 100 ml @ 200 mls/hr Q8 IVPB Last administered on 02/18/17 14:08; Admin Dose 200 MLS/HR; Start 02/05/17 at 22:00 Acetaminophen (Tylenol Liquid) 650 mg Q4H PRN GTB PAIN AND OR ELEVATED TEMP Last administered on 02/18/17 08:34; Admin Dose 650 MG; Start 02/05/17 at 18:30 Salmeterol Xinafoate/ Fluticasone (Advair 250/50 Diskus) 1 inh BID INH Last administered on 02/12/17 09:03; Admin Dose 1 INH; Start 02/07/17 at 11:00; Status Future Hold IV Flush (NS 10 ml) 10 ml PRN PRN IV IV PROTOCOL; Start 02/07/17 at 14:30 Diphenhydramine HCl 25 mg 25 mg Q6H PRN IV itching ; Start 02/07/17 at 20:00 Ondansetron HCl/ Sodium Chloride (Zofran Inj/NS) 54 ml @ 216 mls/hr Q6H PRN IV NAUSEA AND/OR VOMITING; Start 02/09/17 at 11:30 Prednisone (Prednisone) 40 mg DAILY PO Last administered on 02/12/17 09:03; Admin Dose 40 MG; Start 02/11/17 at 09:00; Status Future Hold Lorazepam (Ativan) 1 mg Q2 PRN IV AGITATION/ANXIETY Last administered on 01:51; Admin Dose 1 MG; Start 02/10/17 at 17:00 Lorazepam (Ativan) 1 mg Q1HWA PRN IM AGITATION/ANXIETY; Start 02/10/17 at 19:00 Trimethobenzamide HCl 200 mg 200 mg Q6H PRN IM NAUSEA AND/OR VOMITING; Start at 19:30 Norepinephrine 16 mg/Dextrose 500 ml @ 1.87 mls/hr TITRATE IV ; Start 02/13/17 at 12:00; Status Future hold Propofol 100 ml @ 2.202 mls/ hr Q12H IV Last administered on 02/18/17 14:00; Admin Dose 17.616 MLS/HR; Start 02/13/17 at 10:00 Total Parenteral Nutrition (Tpn) 1,000 ml @ 50 mls/hr Q20H IV Last administered on 02/17/17 22:42; Admin Dose 50 MLS/HR; Start 02/14/17 at 12:00 Diagnostic Test (Pha) 1 ea 1 ea Q4 XX Last administered on 02/18/17 13:15; Admin Dose 1 EA; Start 02/14/17 at 17:00 Caspofungin/ Sodium Chloride (Cancidas/NS) 250 ml @ 250 mls/hr Q24H IVPB Last administered on 02/18/17 12:07; Admin Dose 250 MLS/HR; Start 02/16/17 at 12:00 Miscellaneous Information (*Rx Drug Level Order Reminder*) VANCO TR LEVEL PRIOR... ONCE ONCE XX ; Start 02/18/17 at 17:00; Stop 02/18/17 at 17:01 Furosemide (Lasix) 20 mg Q6 IV Last administered on 02/18/17t 12:06; Admin Dose 20 MG; Start 02/18/17 at 00:00 Keith Gandhi DO February 18, 2017 14:40
[2017-02-18] MEDS ORDERED: POTASSIUM CHLORIDE 20 MEQ POWDER FOR ORAL SOLN NGT ONE (15:00)
[2017-02-18] MEDS ORDERED: MAGNESIUM SULFATE 2 GM/50 ML 50 ML IVPB ONE (15:00)
--- NOTE | 2017-02-18 16:58 | PN ---
Date/Time of Note Date/Time of Note DATE: 02/18/17 TIME: 16:54 Assessment/Plan VTE Prophylaxis VTE Prophylaxis Intervention: heparin Lines/Catheters IV Catheter Type (from Nrs): PICC Line Central line still needed: Yes Urinary Cath still in place: Yes Reason Cath still needed: other (indicate) Assessment/Plan Assessment/Plan IMPRESSION 1. Perforated sigmoid colon 2/2 Severe Crohn's colitis * S/p Urgent Open Cronin's procedure with end colostomy, liver biopsy and abdominal lavage 02/01/17P * S/p post operative paracolic abscess drained via CT 02/14/[address] * S/p Exploration of abdomen through recent laparotomy site with closure of fascia done 02/15/17 for Fascia dehiscence 2. Recurrent Resp failure: Extubated then reintubated 02/13: currently vent dependent 3. Exacerbation of Crohn's disease with acute colitis and diarrhea Cultures growing ecoli / proteus / enterococcus 4. Multifocal PNA + Mook Pleural effusions Effusions likely hydrostatic from hypoalbuminemia 5. Severe Sepsis with lactic acidosis 2/2 severe colitis / PNA 6. S/p Systemic shock (hypovolemic +septic) 7. TPN therapy for low prealbumin + tube feeds 8. Hx of heavy alcohol and tobacco use just until admission 9. Probable underlying COPD and Cirrhosis based on hx which explains hypoalbuminemia and anasarca 10. Severe recurrent anemia likely 2/2 occult blood loss from multiple sources : PRN transfusions 11. Hypomagnesemia PLAN: * Continue current ICU care and Vent Mgt and weaning * Continue post Op wound care/ electrolyte management * Begin to wean TPN if tolerating tube feeds * Continue Wound care and wound Vac * ID managing abx and antifungal * Replace electrolytes as needed * Continue albumin therapy * PRN pain control/ antiemetics/ antipyretics/ supportive care * Low dose heparin for prophylaxis CRITICAL CARE TIME: >35 mins Subjective 24 Hr Interval Summary Free Text/Dictation Patient seen and examined. Remains intubated. No pressor support. Currently on both TPN, and has been started on tube feeds. Now having dark greenish produce in his colostomy bag. Possible CPAP trials today. Nursing reports no acute overnight events. Exam/Review of Systems Vital Signs Vitals Vital Signs Date Time Temp Pulse Resp B/P Pulse Ox O2 Delivery O2 Flow Rate FiO2 02/18/17 16:00 99.5 95 30 116/80 97 Mechanical Ventilator 02/18/17 15:45 30 Intake and Output 02/17/17 02/17/17 02/18/17 15:00 23:00 07:00 Intake Total 1162.886 ml 1820.928 ml 985.928 ml Output Total 1350 ml 595 ml 1780 ml Balance -187.114 ml 1225.928 ml -794.072 ml Exam Constitutional: other (arousable, able to shake hands and move both upper extremities) Head: normocephalic Eyes: PERRL, icteric ENMT: intubated Respiratory: crackles/rales (coarse), diminished breath sounds, No labored breathing Cardiovascular: nl pulses, regular rate and rhythm Gastrointestinal: bowel sounds, distended (mildly), other (surgical wound clean and non oozing with mid line deficit covered with wound vac, Colostomy with dark gren stool), soft Genitourinary - Male: other (still with scrotal and penile edema) Extremities: pitting pedal edema (+++) Neurological: lethargic, No unresponsive Skin: other (icteric) Results Result Diagram: 02/18/17 0330 02/18/17 0330 Results 24 hrs Laboratory Tests Test 02/17/17 17:47 02/17/17 21:32 02/18/17 01:00 02/18/17 03:30 Bedside Glucose 103 103 107 White Blood Count 16.0 H Red Blood Count 3.01 L Hemoglobin 8.5 L Hematocrit 26.9 L Mean Corpuscular Volume 89.4 Mean Corpuscular Hemoglobin 28.2 L Mean Corpuscular Hemoglobin Concent 31.6 L Red Cell Distribution Width 16.0 H Platelet Count 299 Mean Platelet Volume 11.7 H Neutrophils % 87.6 H Lymphocytes % 4.2 L Monocytes % 4.5 Eosinophils % 1.5 Basophils % 0.1 Nucleated Red Blood Cells % 0.0 Neutrophils # 14.0 H Lymphocytes # 0.7 L Monocytes # 0.7 Eosinophils # 0.2 Basophils # 0.0 Nucleated Red Blood Cells # 0.0 Sodium Level 142 Potassium Level 3.6 Chloride Level 110 Carbon Dioxide Level 25 Anion Gap 11 Blood Urea Nitrogen 18 Creatinine 0.69 Glucose Level 105 Calcium Level 7.5 L Phosphorus Level 3.2 Magnesium Level 1.7 Test 02/18/17 05:25 02/18/17 05:26 02/18/17 08:53 02/18/17 11:15 Bedside Glucose 102 113 Lab Scanned Report BLOOD TRANSFUSION Blood Gas Specimen Source Blood arterial Arterial Blood Date Drawn 02/18/2017 11:15:29 AM Arterial Blood pH (Temp corrected) 7.472 H Arterial Blood pCO2 (Temp correct) 35.0 Arterial Blood pO2 (Temp corrected) 68.0 L Arterial Blood HCO3 25.0 Arterial Blood Base Excess 1.5 Arterial Blood Oxygen Saturation 93.0 L Raffy Test ACCEPTAB Arterial Blood Gas Puncture Site Right Radial Arterial Blood Carboxyhemoglobin 0.3 Arterial Blood Methemoglobin 0.2 Blood Gas A-a O2 Differential 104.8 H Oxyhemoglobin Percent 92.5 L Total Hemoglobin 9.3 L Blood Gas Temperature 37.0 Blood Gas Actual Respiration Rate 27 Blood Gas Modality VENT - CPAP FiO2 30.0 Blood Gas Low PEEP Setting 5.0 Blood Gas Pressure Support 10 Blood Gas Notified Whom JLD Blood Gas Notified Time 02/18/2017 11:27:13 AM Test 02/18/17 11:54 02/18/17 13:14 Lab Scanned Report REFERENCE LAB Bedside Glucose 115 Medications Medications Current Medications Hydromorphone HCl (Dilaudid) 1 mg Q4H PRN IV pain Last administered on 13:00; Admin Dose 1 MG; Start 02/01/17 at 03:30 Pantoprazole (Protonix Iv) 40 mg DAILY@06 IV Last administered on 02/18/17 05: 40; Admin Dose 40 MG; Start 02/01/17 at 06:00 Acetaminophen/ Hydrocodone Bitart ([place] (5/325)) 1 tab Q4H PRN PO PAIN LEVEL 4 -7 Last administered on 02/09/17 18:48; Admin Dose 1 TAB; Start 02/01/17 at 20: 30 Acetaminophen/ Hydrocodone Bitart ([place] (5/325)) 2 tab Q4H PRN PO PAIN LEVEL 7 -10; Start 02/01/17 at 20:30 Hydromorphone HCl (Dilaudid) 0.5 mg Q2 PRN IV PAIN Last administered on 23:52; Admin Dose 0.5 MG; Start 02/01/17 at 20:30 Hydromorphone HCl (Dilaudid) 1 mg Q2 PRN IV PAIN Last administered on 11:57; Admin Dose 1 MG; Start 02/01/17 at 20:30 Docusate Sodium (Colace) 100 mg BID PRN PO CONSTIPATION; Start 02/01/17 at 20: 30 Bisacodyl (Dulcolax Supp) 10 mg BID PRN [place] CONSTIPATION; Start 02/01/17 at 20: 30 Sodium Biphosphate/ Sodium Phosphate 133 ml 133 ml BID PRN [place] CONSTIPATION; Start 02/01/17 at 20:30 Metronidazole 100 ml @ 100 mls/hr Q8 IVPB Last administered on 02/18/17 14:09 ; Admin Dose 100 MLS/HR; Start 02/04/17 at 15:00 Vancomycin HCl 250 ml @ 125 mls/hr Q12H IVPB Last administered on 02/18/17 05: 41; Admin Dose 125 MLS/HR; Start 02/05/17 at 06:00 Meropenem (Merrem 500 Mg/ 100 ml (Pmx)) 100 ml @ 200 mls/hr Q8 IVPB Last administered on 02/18/17 14:08; Admin Dose 200 MLS/HR; Start 02/05/17 at 22:00 Acetaminophen (Tylenol Liquid) 650 mg Q4H PRN GTB PAIN AND OR ELEVATED TEMP Last administered on 02/18/17 08:34; Admin Dose 650 MG; Start 02/05/17 at 18:30 Salmeterol Xinafoate/ Fluticasone (Advair 250/50 Diskus) 1 inh BID INH Last administered on 02/12/17 09:03; Admin Dose 1 INH; Start 02/07/17 at 11:00; Status Future Hold IV Flush (NS 10 ml) 10 ml PRN PRN IV IV PROTOCOL; Start 02/07/17 at 14:30 Diphenhydramine HCl 25 mg 25 mg Q6H PRN IV itching ; Start 02/07/17 at 20:00 Ondansetron HCl/ Sodium Chloride (Zofran Inj/NS) 54 ml @ 216 mls/hr Q6H PRN IV NAUSEA AND/OR VOMITING; Start 02/09/17 at 11:30 Prednisone (Prednisone) 40 mg DAILY PO Last administered on 02/12/17 09:03; Admin Dose 40 MG; Start 02/11/17 at 09:00; Status Future Hold Lorazepam (Ativan) 1 mg Q2 PRN IV AGITATION/ANXIETY Last administered on 01:51; Admin Dose 1 MG; Start 02/10/17 at 17:00 Lorazepam (Ativan) 1 mg Q1HWA PRN IM AGITATION/ANXIETY; Start 02/10/17 at 19:00 Trimethobenzamide HCl 200 mg 200 mg Q6H PRN IM NAUSEA AND/OR VOMITING; Start at 19:30 Norepinephrine 16 mg/Dextrose 500 ml @ 1.87 mls/hr TITRATE IV ; Start 02/13/17 at 12:00; Status Future hold Propofol 100 ml @ 2.202 mls/ hr Q12H IV Last administered on 02/18/17 14:00; Admin Dose 17.616 MLS/HR; Start 02/13/17 at 10:00 Total Parenteral Nutrition (Tpn) 1,000 ml @ 50 mls/hr Q20H IV Last administered on 02/17/17 22:42; Admin Dose 50 MLS/HR; Start 02/14/17 at 12:00 Diagnostic Test (Pha) 1 ea 1 ea Q4 XX Last administered on 02/18/17 13:15; Admin Dose 1 EA; Start 02/14/17 at 17:00 Caspofungin/ Sodium Chloride (Cancidas/NS) 250 ml @ 250 mls/hr Q24H IVPB Last administered on 02/18/17 12:07; Admin Dose 250 MLS/HR; Start 02/16/17 at 12:00 Miscellaneous Information (*Rx Drug Level Order Reminder*) VANCO TR LEVEL PRIOR... ONCE ONCE XX ; Start 02/18/17 at 17:00; Stop 02/18/17 at 17:01 Furosemide 20 mg 20 mg Q6 IV Last administered on 02/18/17 12:06; Admin Dose 20 MG; Start 02/18/17 at 00:00 Magnesium Sulfate (Magnesium Sulfate 2 Gm/50 ml) 50 ml @ 25 mls/hr ONCE ONCE IVPB Last administered on 02/18/17 15:47; Admin Dose 25 MLS/HR; Start 02/18/17 at 15:00; Stop 02/18/17 at 16:59 Procedures Procedures PROCEDURE: XR Chest 1 View. CLINICAL INDICATION: Shortness of breath TECHNIQUE: AP view of the chest was obtained. COMPARISON: Yesterday FINDINGS: The cardiomediastinal silhouette is within normal limits. Endotracheal and nasogastric tubes are stable right-sided PICC line is unchanged. Central pulmonary vascular congestion and interstitial prominence in both lungs is unchanged. Bilateral lower lung infiltrates, combined with small pleural effusions are stable. The osseous structures are unchanged. IMPRESSION: Stable central pulmonary vascular congestion and interstitial prominence in both lungs. Stable bilateral lower lung infiltrates, combined with small pleural effusions. RPTAT: AA .Schuyler Ugalde MD, MD Date Time Electronically viewed and signed by .Schuyler Ugalde MD, on 02/17/2017 11:40 .P/ CC: TAHMINA JHA BOLATITO M. February 18, 2017 16:58
--- NOTE | 2017-02-18 17:29 | PN ---
Date/Time of Note Date/Time of Note DATE: 02/18/17 TIME: 17:27 Assessment/Plan VTE Prophylaxis VTE Prophylaxis Intervention: SCD's Lines/Catheters IV [facility] Type (from [facility]): PICC Line Central line still needed: Yes Urinary Cath still in place: Yes Reason Cath still needed: urinary retention Assessment/Plan Assessment/Plan Respiratory failure on ventilator S/P exploration Fascial dehiscence Perforated sigmoid colon * Laparoscopic exploration,open sigmoid colectomy with Deena end colostomy with liver biopsy segment V h/o Crohn's disease Thrombocytopenia Plan: * continue present management * will reevaluate for Crohn disease once recovered from surgery Subjective 24 Hr Interval Summary Free Text/Dictation * Course reviewed with RN * patient seen and examined * ventilator dependent Exam/Review of Systems Vital Signs Vitals Vital Signs Date Time Temp Pulse Resp B/P Pulse Ox O2 Delivery O2 Flow Rate FiO2 02/18/17 16:00 99.5 95 30 116/80 97 Mechanical Ventilator 02/18/17 15:45 30 Intake and Output 02/17/17 02/17/17 02/18/17 15:00 23:00 07:00 Intake Total 1162.886 ml 1820.928 ml 985.928 ml Output Total 1350 ml 595 ml 1780 ml Balance -187.114 ml 1225.928 ml -794.072 ml Exam Constitutional: frail ENMT: intubated Respiratory: congested cough, diminished breath sounds Cardiovascular: nl pulses, regular rate and rhythm Gastrointestinal: bowel sounds, other (colostomy), soft Extremities: normal pulses Results Result Diagram: 02/18/17 0330 02/18/17 0330 Results 24 hrs Laboratory Tests Test 02/17/17 17:47 02/17/17 21:32 02/18/17 01:00 02/18/17 03:30 Bedside Glucose 103 103 107 White Blood Count 16.0 H Red Blood Count 3.01 L Hemoglobin 8.5 L Hematocrit 26.9 L Mean Corpuscular Volume 89.4 Mean Corpuscular Hemoglobin 28.2 L Mean Corpuscular Hemoglobin Concent 31.6 L Red Cell Distribution Width 16.0 H Platelet Count 299 Mean Platelet Volume 11.7 H Neutrophils % 87.6 H Lymphocytes % 4.2 L Monocytes % 4.5 Eosinophils % 1.5 Basophils % 0.1 Nucleated Red Blood Cells % 0.0 Neutrophils # 14.0 H Lymphocytes # 0.7 L Monocytes # 0.7 Eosinophils # 0.2 Basophils # 0.0 Nucleated Red Blood Cells # 0.0 Sodium Level 142 Potassium Level 3.6 Chloride Level 110 Carbon Dioxide Level 25 Anion Gap 11 Blood Urea Nitrogen 18 Creatinine 0.69 Glucose Level 105 Calcium Level 7.5 L Phosphorus Level 3.2 Magnesium Level 1.7 Test 02/18/17 05:25 02/18/17 05:26 02/18/17 08:53 02/18/17 11:15 Bedside Glucose 102 113 Lab Scanned Report BLOOD TRANSFUSION Blood Gas Specimen Source Blood arterial Arterial Blood Date Drawn 02/18/2017 11:15:29 AM Arterial Blood pH (Temp corrected) 7.472 H Arterial Blood pCO2 (Temp correct) 35.0 Arterial Blood pO2 (Temp corrected) 68.0 L Arterial Blood HCO3 25.0 Arterial Blood Base Excess 1.5 Arterial Blood Oxygen Saturation 93.0 L Raffy Test ACCEPTAB Arterial Blood Gas Puncture Site Right Radial Arterial Blood Carboxyhemoglobin 0.3 Arterial Blood Methemoglobin 0.2 Blood Gas A-a O2 Differential 104.8 H Oxyhemoglobin Percent 92.5 L Total Hemoglobin 9.3 L Blood Gas Temperature 37.0 Blood Gas Actual Respiration Rate 27 Blood Gas Modality VENT - CPAP FiO2 30.0 Blood Gas Low PEEP Setting 5.0 Blood Gas Pressure Support 10 Blood Gas Notified Whom JLD Blood Gas Notified Time 02/18/2017 11:27:13 AM Test 02/18/17 11:54 02/18/17 13:14 02/18/17 17:17 Lab Scanned Report REFERENCE LAB Bedside Glucose 115 92 Medications Medications Current Medications Hydromorphone HCl (Dilaudid) 1 mg Q4H PRN IV pain Last administered on 13:00; Admin Dose 1 MG; Start 02/01/17 at 03:30 Pantoprazole (Protonix Iv) 40 mg DAILY@06 IV Last administered on 02/18/17 05: 40; Admin Dose 40 MG; Start 02/01/17 at 06:00 Acetaminophen/ Hydrocodone Bitart ([place] (5/325)) 1 tab Q4H PRN PO PAIN LEVEL 4 -7 Last administered on 02/09/17 18:48; Admin Dose 1 TAB; Start 02/01/17 at 20: 30 Acetaminophen/ Hydrocodone Bitart ([place] (5/325)) 2 tab Q4H PRN PO PAIN LEVEL 7 -10; Start 02/01/17 at 20:30 Hydromorphone HCl (Dilaudid) 0.5 mg Q2 PRN IV PAIN Last administered on 23:52; Admin Dose 0.5 MG; Start 02/01/17 at 20:30 Hydromorphone HCl (Dilaudid) 1 mg Q2 PRN IV PAIN Last administered on 11:57; Admin Dose 1 MG; Start 02/01/17 at 20:30 Docusate Sodium (Colace) 100 mg BID PRN PO CONSTIPATION; Start 02/01/17 at 20: 30 Bisacodyl (Dulcolax Supp) 10 mg BID PRN [place] CONSTIPATION; Start 02/01/17 at 20: 30 Sodium Biphosphate/ Sodium Phosphate 133 ml 133 ml BID PRN [place] CONSTIPATION; Start 02/01/17 at 20:30 Metronidazole 100 ml @ 100 mls/hr Q8 IVPB Last administered on 02/18/17 14:09 ; Admin Dose 100 MLS/HR; Start 02/04/17 at 15:00 Vancomycin HCl 250 ml @ 125 mls/hr Q12H IVPB Last administered on 02/18/17 17: 22; Admin Dose 125 MLS/HR; Start 02/05/17 at 06:00 Meropenem (Merrem 500 Mg/ 100 ml (Pmx)) 100 ml @ 200 mls/hr Q8 IVPB Last administered on 02/18/17 14:08; Admin Dose 200 MLS/HR; Start 02/05/17 at 22:00 Acetaminophen (Tylenol Liquid) 650 mg Q4H PRN GTB PAIN AND OR ELEVATED TEMP Last administered on 02/18/17 08:34; Admin Dose 650 MG; Start 02/05/17 at 18:30 Salmeterol Xinafoate/ Fluticasone (Advair 250/50 Diskus) 1 inh BID INH Last administered on 02/12/17 09:03; Admin Dose 1 INH; Start 02/07/17 at 11:00; Status Future Hold IV Flush (NS 10 ml) 10 ml PRN PRN IV IV PROTOCOL; Start 02/07/17 at 14:30 Diphenhydramine HCl 25 mg 25 mg Q6H PRN IV itching ; Start 02/07/17 at 20:00 Ondansetron HCl/ Sodium Chloride (Zofran Inj/NS) 54 ml @ 216 mls/hr Q6H PRN IV NAUSEA AND/OR VOMITING; Start 02/09/17 at 11:30 Prednisone (Prednisone) 40 mg DAILY PO Last administered on 02/12/17 09:03; Admin Dose 40 MG; Start 02/11/17 at 09:00; Status Future Hold Lorazepam (Ativan) 1 mg Q2 PRN IV AGITATION/ANXIETY Last administered on 01:51; Admin Dose 1 MG; Start 02/10/17 at 17:00 Lorazepam (Ativan) 1 mg Q1HWA PRN IM AGITATION/ANXIETY; Start 02/10/17 at 19:00 Trimethobenzamide HCl 200 mg 200 mg Q6H PRN IM NAUSEA AND/OR VOMITING; Start at 19:30 Norepinephrine 16 mg/Dextrose 500 ml @ 1.87 mls/hr TITRATE IV ; Start 02/13/17 at 12:00; Status Future hold Propofol 100 ml @ 2.202 mls/ hr Q12H IV Last administered on 02/18/17 14:00; Admin Dose 17.616 MLS/HR; Start 02/13/17 at 10:00 Total Parenteral Nutrition (Tpn) 1,000 ml @ 50 mls/hr Q20H IV Last administered on 02/17/17 22:42; Admin Dose 50 MLS/HR; Start 02/14/17 at 12:00 Diagnostic Test (Pha) 1 ea 1 ea Q4 XX Last administered on 02/18/17 17:18; Admin Dose 1 EA; Start 02/14/17 at 17:00 Caspofungin/ Sodium Chloride (Cancidas/NS) 250 ml @ 250 mls/hr Q24H IVPB Last administered on 02/18/17 12:07; Admin Dose 250 MLS/HR; Start 02/16/17 at 12:00 Furosemide 20 mg 20 mg Q6 IV Last administered on 02/18/17 17:22; Admin Dose 20 MG; Start 02/18/17 at 00:00 Albumin Human (Albumin Human 25%) 100 ml @ 100 mls/hr DAILY IV ; Start 02/19/17 at 09:00; Stop 02/21/17 at 09:59 SANRDA DAVIS MD February 18, 2017 17:29
[2017-02-18] MEDS: HYDROmorphONE 1 MG/ML SYG IV PRN (17:31)
[2017-02-18] MEDS: LORAZEPAM 2 MG INJ IV PRN (17:31)
[2017-02-19] VITALS (61 sets, daily range): BP systolic 94–133; BP diastolic 58–87; PULSE 87–108; RESP 14–38
[2017-02-19] MEDS: TPN 1,000 ML IV SCH ×2 (00:04→20:33)
[2017-02-19] MEDS: ACCU-CHEK XX SCH ×6 (00:46→20:33)
[2017-02-19] MEDS: FUROSEMIDE 20 MG INJ IV SCH ×4 (00:46→17:30)
[2017-02-19] MEDS: PROPOFOL 100 ML IV SCH ×5 (01:14→20:32)
[2017-02-19 05:10] LABS: ADD SCAN DIFF NO
[2017-02-19 05:17] LABS: BASOPHILS % 0.1 % (0.0-2.0); EOSINOPHILS # 0.3 10^3/ul (0.0-0.5); EOSINOPHILS % 1.9 % (0.0-7.0); HEMATOCRIT 26.5 % (42.0-52.0); HEMOGLOBIN 8.4 g/dl (14.0-18.0); LYMPHOCYTES # 0.7 10^3/ul (0.8-2.9); LYMPHOCYTES % 4.1 % (15.0-51.0); MEAN CORPUSCULAR HEMOGLOBIN 28.2 pg (29.0-33.0); MEAN CORPUSCULAR HGB CONC 31.7 g/dl (32.0-37.0); MEAN CORPUSCULAR VOLUME 88.9 fl (82.0-101.0); MEAN PLATELET VOLUME 11.6 fl (7.4-10.4); MONOCYTE # 0.8 10^3/ul (0.3-0.9); NEUTROPHIL # 14.7 10^3/ul (1.6-7.5); NEUTROPHILS % 86.9 % (39.0-77.0); PLATELET COUNT 304 10^3/UL (140-415); RED BLOOD COUNT 2.98 10^6/ul (4.70-6.10); RED CELL DISTRIBUTION WIDTH 15.7 % (11.5-14.5); WHITE BLOOD COUNT 16.9 10^3/ul (4.8-10.8)
[2017-02-19 05:42] LABS: POTASSIUM 3.4 mmol/L (3.5-5.1)
[2017-02-19 05:45] LABS: CREATININE 0.66 mg/dl (0.61-1.24)
[2017-02-19 05:46] LABS: CALCIUM 7.7 mg/dl (8.4-10.2); MAGNESIUM 1.6 mg/dl (1.7-2.5); PHOSPHORUS 3.9 mg/dl (2.5-4.9)
[2017-02-19] MEDS ORDERED: VANCOMYCIN 1.25 GM in SOD CHLORIDE 0.9% 250 ML IVPB SCH (06:00)
[2017-02-19] MEDS: PANTOPRAZOLE 40 MG INJ IV SCH (06:12)
[2017-02-19] MEDS: MEROPENEM 500 MG/100 ML (PMX) 100 ML IVPB SCH ×3 (06:12→23:06)
[2017-02-19] MEDS: metroNIDAZOLE 500 MG/NS (PMX) 100 ML IVPB SCH ×3 (06:12→23:06)
[2017-02-19] MEDS: ACETAMINOPHEN 650MG/20.3ML CUP GTB PRN ×2 (06:35→12:52)
--- NOTE | 2017-02-19 07:48 | RADRPT ---
PROCEDURE: XR Chest. CLINICAL INDICATION: Shortness of breath. TECHNIQUE: Single frontal view. COMPARISON: 02/17/2017. FINDINGS: The endotracheal tube and nasogastric tube are in satisfactory position. There is atelectasis or pn eumonia at the lung bases, unchanged. The heart size is normal. There are small bilateral pleural effusions. There is no pneumothorax. IMPRESSION: 1. No change from 02/17/2017. RPTAT: QQ .Rogelio Vera MD, MD Date Time Electronically viewed and signed by .Rogelio Vera MD, MD on 02/19/2017 07:48 .R/
--- NOTE | 2017-02-19 08:43 | CONS ---
Date/Time of Note Date/Time of Note DATE: 02/19/17 TIME: 08:43 Assessment/Plan Assessment/Plan Additional Assessment/Plan Perforated sigmoid colon * Laparoscopic exploration,open sigmoid colectomy with Deena end colostomy with liver biopsy segment V h/o Crohn's disease Thrombocytopenia Liver Cirrhosis Anemia Plan: Continue present management Will reevaluate for Crohn's disease once recovered from surgery Monitor hemoglobin every 8 hours, transfuse 1 unit for hemoglobin less than 7.5 and 2 units for hemoglobin less than 7.0 Further recommendations depend on clinical course Pt seen in collaboration with Dr. Jackson Consultation Date/Type/Reason Admit Date/Time Feb 01, 2017 at 03:10 Initial Consult Date 02/02/17 Type of Consultation: cv Referring Provider: VINCE PADGETT Exam/Review of Systems Vital Signs Vitals Vital Signs Date Time Temp Pulse Resp B/P Pulse Ox O2 Delivery O2 Flow Rate FiO2 02/19/17 07:21 105 25 96 45 02/19/17 07:00 99.8 110/71 Mechanical Ventilator Intake and Output 02/18/17 02/18/17 02/19/17 15:00 23:00 07:00 Intake Total 1098.080 ml 715.232 ml 1255.814 ml Output Total 965 ml 1860 ml 1245 ml Balance 133.080 ml -1144.768 ml 10.814 ml Exam Constitutional: frail Eyes: PERRL, nl sclera Neck: non-tender, supple Respiratory: intubated Cardiovascular: nl pulses, regular rate and rhythm Gastrointestinal: bowel sounds, distended, non-tender, other (colostomy ), soft Musculoskeletal: nl extremities to inspection Extremities: normal pulses Skin: rash or lesions Results Result Diagram: 02/19/17 0500 02/19/17 0500 Results 24 hrs Laboratory Tests Test 02/18/17 08:53 02/18/17 11:15 02/18/17 11:54 02/18/17 13:14 Bedside Glucose 113 115 Blood Gas Specimen Source Blood arterial Arterial Blood Date Drawn 02/18/2017 11:15:29 AM Arterial Blood pH (Temp corrected) 7.472 H Arterial Blood pCO2 (Temp correct) 35.0 Arterial Blood pO2 (Temp corrected) 68.0 L Arterial Blood HCO3 25.0 Arterial Blood Base Excess 1.5 Arterial Blood Oxygen Saturation 93.0 L Raffy Test ACCEPTAB Arterial Blood Gas Puncture Site Right Radial Arterial Blood Carboxyhemoglobin 0.3 Arterial Blood Methemoglobin 0.2 Blood Gas A-a O2 Differential 104.8 H Oxyhemoglobin Percent 92.5 L Total Hemoglobin 9.3 L Blood Gas Temperature 37.0 Blood Gas Actual Respiration Rate 27 Blood Gas Modality VENT - CPAP FiO2 30.0 Blood Gas Low PEEP Setting 5.0 Blood Gas Pressure Support 10 Blood Gas Notified Whom JLD Blood Gas Notified Time 02/18/2017 11:27:13 AM Lab Scanned Report REFERENCE LAB Test 02/18/17 16:55 02/18/17 17:17 02/18/17 21:07 02/19/17 00:46 Vancomycin Level Trough 8.9 L Bedside Glucose 92 77 104 Test 02/19/17 05:00 02/19/17 06:23 White Blood Count 16.9 H Red Blood Count 2.98 L Hemoglobin 8.4 L Hematocrit 26.5 L Mean Corpuscular Volume 88.9 Mean Corpuscular Hemoglobin 28.2 L Mean Corpuscular Hemoglobin Concent 31.7 L Red Cell Distribution Width 15.7 H Platelet Count 304 Mean Platelet Volume 11.6 H Neutrophils % 86.9 H Lymphocytes % 4.1 L Monocytes % 5.0 Eosinophils % 1.9 Basophils % 0.1 Nucleated Red Blood Cells % 0.0 Neutrophils # 14.7 H Lymphocytes # 0.7 L Monocytes # 0.8 Eosinophils # 0.3 Basophils # 0.0 Nucleated Red Blood Cells # 0.0 Sodium Level 140 Potassium Level 3.4 L Chloride Level 105 Carbon Dioxide Level 25 Anion Gap 13 Blood Urea Nitrogen 18 Creatinine 0.66 Glucose Level 102 Calcium Level 7.7 L Phosphorus Level 3.9 Magnesium Level 1.6 L Bedside Glucose 125 Medications Medications Current Medications Hydromorphone HCl (Dilaudid) 1 mg Q4H PRN IV pain Last administered on 17:31; Admin Dose 1 MG; Start 02/01/17 at 03:30 Pantoprazole (Protonix Iv) 40 mg DAILY@06 IV Last administered on 02/19/17 06: 12; Admin Dose 40 MG; Start 02/01/17 at 06:00 Acetaminophen/ Hydrocodone Bitart ([place] (5/325)) 1 tab Q4H PRN PO PAIN LEVEL 4 -7 Last administered on 02/09/17 18:48; Admin Dose 1 TAB; Start 02/01/17 at 20: 30 Acetaminophen/ Hydrocodone Bitart ([place] (5/325)) 2 tab Q4H PRN PO PAIN LEVEL 7 -10; Start 02/01/17 at 20:30 Hydromorphone HCl (Dilaudid) 0.5 mg Q2 PRN IV PAIN Last administered on 23:52; Admin Dose 0.5 MG; Start 02/01/17 at 20:30 Hydromorphone HCl (Dilaudid) 1 mg Q2 PRN IV PAIN Last administered on 11:57; Admin Dose 1 MG; Start 02/01/17 at 20:30 Docusate Sodium (Colace) 100 mg BID PRN PO CONSTIPATION; Start 02/01/17 at 20: 30 Bisacodyl (Dulcolax Supp) 10 mg BID PRN [place] CONSTIPATION; Start 02/01/17 at 20: 30 Sodium Biphosphate/ Sodium Phosphate 133 ml 133 ml BID PRN [place] CONSTIPATION; Start 02/01/17 at 20:30 Metronidazole 100 ml @ 100 mls/hr Q8 IVPB Last administered on 02/19/17 06:12 ; Admin Dose 100 MLS/HR; Start 02/04/17 at 15:00 Meropenem (Merrem 500 Mg/ 100 ml (Pmx)) 100 ml @ 200 mls/hr Q8 IVPB Last administered on 02/19/17 06:12; Admin Dose 200 MLS/HR; Start 02/05/17 at 22:00 Acetaminophen (Tylenol Liquid) 650 mg Q4H PRN GTB PAIN AND OR ELEVATED TEMP Last administered on 02/19/17 06:35; Admin Dose 650 MG; Start 02/05/17 at 18:30 Salmeterol Xinafoate/ Fluticasone (Advair 250/50 Diskus) 1 inh BID INH Last administered on 02/12/17 09:03; Admin Dose 1 INH; Start 02/07/17 at 11:00; Status Future Hold IV Flush (NS 10 ml) 10 ml PRN PRN IV IV PROTOCOL; Start 02/07/17 at 14:30 Diphenhydramine HCl 25 mg 25 mg Q6H PRN IV itching ; Start 02/07/17 at 20:00 Ondansetron HCl/ Sodium Chloride (Zofran Inj/NS) 54 ml @ 216 mls/hr Q6H PRN IV NAUSEA AND/OR VOMITING; Start 02/09/17 at 11:30 Prednisone (Prednisone) 40 mg DAILY PO Last administered on 02/12/17 09:03; Admin Dose 40 MG; Start 02/11/17 at 09:00; Status Future Hold Lorazepam (Ativan) 1 mg Q2 PRN IV AGITATION/ANXIETY Last administered on 17:31; Admin Dose 1 MG; Start 02/10/17 at 17:00 Lorazepam (Ativan) 1 mg Q1HWA PRN IM AGITATION/ANXIETY; Start 02/10/17 at 19:00 Trimethobenzamide HCl 200 mg 200 mg Q6H PRN IM NAUSEA AND/OR VOMITING; Start at 19:30 Norepinephrine 16 mg/Dextrose 500 ml @ 1.87 mls/hr TITRATE IV ; Start 02/13/17 at 12:00; Status Future hold Propofol 100 ml @ 2.202 mls/ hr Q12H IV Last administered on 02/19/17 04:18; Admin Dose 15.414 MLS/HR; Start 02/13/17 at 10:00 Total Parenteral Nutrition (Tpn) 1,000 ml @ 50 mls/hr Q20H IV Last administered on 02/19/17 00:04; Admin Dose 50 MLS/HR; Start 02/14/17 at 12:00 Diagnostic Test (Pha) 1 ea 1 ea Q4 XX Last administered on 02/19/17 05:00; Admin Dose 1 EA; Start 02/14/17 at 17:00 Caspofungin/ Sodium Chloride (Cancidas/NS) 250 ml @ 250 mls/hr Q24H IVPB Last administered on 02/18/17 12:07; Admin Dose 250 MLS/HR; Start 02/16/17 at 12:00 Furosemide 20 mg 20 mg Q6 IV Last administered on 02/19/17 06:12; Admin Dose 20 MG; Start 02/18/17 at 00:00 Albumin Human 100 ml @ 100 mls/hr DAILY IV ; Start 02/19/17 at 09:00; Stop at 09:59 Vancomycin HCl/ Sodium Chloride (Vancocin/NS) 250 ml @ 83.333 mls/ hr Q12H IVPB Last administered on 02/19/17t 06:33; Admin Dose 83.333 MLS/HR; Start at 06:00 TONY MCCRAY February 19, 2017 08:43
[2017-02-19] MEDS: ALBUMIN HUMAN 25% 100 ML IV SCH (09:20)
[2017-02-19] MEDS: FENTAnyl (DRIP) 1000 mcg/100mL 100 ML IV SCH (10:42)
--- NOTE | 2017-02-19 10:57 | CONS ---
Date/Time of Note Date/Time of Note DATE: 02/19/17 TIME: 10:55 Consult Date/Type/Reason Admit Date/Time Feb 01, 2017 at 03:10 Type of Consultation: pulmonary ICU Ordering Provider: VINCE PADGETT Subjective Patient remains intubated on mechanical ventilation, mostly somnolent on sedation but follows simple commands off propofol Currently hemodynamically stable Objective Vital Signs Date Time Temp Pulse Resp B/P Pulse Ox O2 Delivery O2 Flow Rate FiO2 02/19/17 08:00 104 02/19/17 07:21 25 96 45 02/19/17 07:00 99.8 110/71 Mechanical Ventilator Intake and Output 02/18/17 02/18/17 02/19/17 15:00 23:00 07:00 Intake Total 1098.080 ml 715.232 ml 1255.814 ml Output Total 965 ml 1860 ml 1245 ml Balance 133.080 ml -1144.768 ml 10.814 ml Exam PHYSICAL EXAMINATION GENERAL chronically ill-appearing gentleman on mechanical ventilation comfortable at rest VITAL SIGNS: see below. HEENT: Pupils equal, round, and reactive to light. CARDIAC: S1, S2, tachycardia. CHEST: Diminished air entry bilaterally. ABDOMEN: Mildly distended. Distal bowel sounds no guarding or rebound EXTREMITIES: No cyanosis, clubbing edema +2 NEUROLOGIC: Generalized weakness Results/Medications Result Diagram: 02/19/17 0500 02/19/17 0500 Results 24 hrs Laboratory Tests Test 02/18/17 11:15 02/18/17 11:54 02/18/17 13:14 02/18/17 16:55 Blood Gas Specimen Source Blood arterial Arterial Blood Date Drawn 02/18/2017 11:15:29 AM Arterial Blood pH (Temp corrected) 7.472 H Arterial Blood pCO2 (Temp correct) 35.0 Arterial Blood pO2 (Temp corrected) 68.0 L Arterial Blood HCO3 25.0 Arterial Blood Base Excess 1.5 Arterial Blood Oxygen Saturation 93.0 L Raffy Test ACCEPTAB Arterial Blood Gas Puncture Site Right Radial Arterial Blood Carboxyhemoglobin 0.3 Arterial Blood Methemoglobin 0.2 Blood Gas A-a O2 Differential 104.8 H Oxyhemoglobin Percent 92.5 L Total Hemoglobin 9.3 L Blood Gas Temperature 37.0 Blood Gas Actual Respiration Rate 27 Blood Gas Modality VENT - CPAP FiO2 30.0 Blood Gas Low PEEP Setting 5.0 Blood Gas Pressure Support 10 Blood Gas Notified Whom JLD Blood Gas Notified Time 02/18/2017 11:27:13 AM Lab Scanned Report REFERENCE LAB Bedside Glucose 115 Vancomycin Level Trough 8.9 L Test 02/18/17 17:17 02/18/17 21:07 02/19/17 00:46 02/19/17 05:00 Bedside Glucose 92 77 104 White Blood Count 16.9 H Red Blood Count 2.98 L Hemoglobin 8.4 L Hematocrit 26.5 L Mean Corpuscular Volume 88.9 Mean Corpuscular Hemoglobin 28.2 L Mean Corpuscular Hemoglobin Concent 31.7 L Red Cell Distribution Width 15.7 H Platelet Count 304 Mean Platelet Volume 11.6 H Neutrophils % 86.9 H Lymphocytes % 4.1 L Monocytes % 5.0 Eosinophils % 1.9 Basophils % 0.1 Nucleated Red Blood Cells % 0.0 Neutrophils # 14.7 H Lymphocytes # 0.7 L Monocytes # 0.8 Eosinophils # 0.3 Basophils # 0.0 Nucleated Red Blood Cells # 0.0 Sodium Level 140 Potassium Level 3.4 L Chloride Level 105 Carbon Dioxide Level 25 Anion Gap 13 Blood Urea Nitrogen 18 Creatinine 0.66 Glucose Level 102 Calcium Level 7.7 L Phosphorus Level 3.9 Magnesium Level 1.6 L Test 02/19/17 06:23 02/19/17 09:21 Bedside Glucose 125 128 Medications Current Medications Hydromorphone HCl (Dilaudid) 1 mg Q4H PRN IV pain Last administered on 17:31; Admin Dose 1 MG; Start 02/01/17 at 03:30 Pantoprazole (Protonix Iv) 40 mg DAILY@06 IV Last administered on 02/19/17 06: 12; Admin Dose 40 MG; Start 02/01/17 at 06:00 Acetaminophen/ Hydrocodone Bitart ([place] (5/325)) 1 tab Q4H PRN PO PAIN LEVEL 4 -7 Last administered on 02/09/17 18:48; Admin Dose 1 TAB; Start 02/01/17 at 20: 30 Acetaminophen/ Hydrocodone Bitart ([place] (5/325)) 2 tab Q4H PRN PO PAIN LEVEL 7 -10; Start 02/01/17 at 20:30 Hydromorphone HCl (Dilaudid) 0.5 mg Q2 PRN IV PAIN Last administered on 23:52; Admin Dose 0.5 MG; Start 02/01/17 at 20:30 Hydromorphone HCl (Dilaudid) 1 mg Q2 PRN IV PAIN Last administered on 11:57; Admin Dose 1 MG; Start 02/01/17 at 20:30 Docusate Sodium (Colace) 100 mg BID PRN PO CONSTIPATION; Start 02/01/17 at 20: 30 Bisacodyl (Dulcolax Supp) 10 mg BID PRN [place] CONSTIPATION; Start 02/01/17 at 20: 30 Sodium Biphosphate/ Sodium Phosphate 133 ml 133 ml BID PRN [place] CONSTIPATION; Start 02/01/17 at 20:30 Metronidazole 100 ml @ 100 mls/hr Q8 IVPB Last administered on 02/19/17 06:12 ; Admin Dose 100 MLS/HR; Start 02/04/17 at 15:00 Meropenem (Merrem 500 Mg/ 100 ml (Pmx)) 100 ml @ 200 mls/hr Q8 IVPB Last administered on 02/19/17 06:12; Admin Dose 200 MLS/HR; Start 02/05/17 at 22:00 Acetaminophen (Tylenol Liquid) 650 mg Q4H PRN GTB PAIN AND OR ELEVATED TEMP Last administered on 02/19/17 06:35; Admin Dose 650 MG; Start 02/05/17 at 18:30 Salmeterol Xinafoate/ Fluticasone (Advair 250/50 Diskus) 1 inh BID INH Last administered on 02/12/17 09:03; Admin Dose 1 INH; Start 02/07/17 at 11:00; Status Future Hold IV Flush (NS 10 ml) 10 ml PRN PRN IV IV PROTOCOL; Start 02/07/17 at 14:30 Diphenhydramine HCl 25 mg 25 mg Q6H PRN IV itching ; Start 02/07/17 at 20:00 Ondansetron HCl/ Sodium Chloride (Zofran Inj/NS) 54 ml @ 216 mls/hr Q6H PRN IV NAUSEA AND/OR VOMITING; Start 02/09/17 at 11:30 Prednisone (Prednisone) 40 mg DAILY PO Last administered on 02/12/17 09:03; Admin Dose 40 MG; Start 02/11/17 at 09:00; Status Future Hold Lorazepam (Ativan) 1 mg Q2 PRN IV AGITATION/ANXIETY Last administered on 17:31; Admin Dose 1 MG; Start 02/10/17 at 17:00 Lorazepam (Ativan) 1 mg Q1HWA PRN IM AGITATION/ANXIETY; Start 02/10/17 at 19:00 Trimethobenzamide HCl 200 mg 200 mg Q6H PRN IM NAUSEA AND/OR VOMITING; Start at 19:30 Norepinephrine 16 mg/Dextrose 500 ml @ 1.87 mls/hr TITRATE IV ; Start 02/13/17 at 12:00; Status Future hold Propofol 100 ml @ 2.202 mls/ hr Q12H IV Last administered on 02/19/17 10:44; Admin Dose 15.414 MLS/HR; Start 02/13/17 at 10:00 Total Parenteral Nutrition (Tpn) 1,000 ml @ 50 mls/hr Q20H IV Last administered on 02/19/17 00:04; Admin Dose 50 MLS/HR; Start 02/14/17 at 12:00 Diagnostic Test (Pha) 1 ea 1 ea Q4 XX Last administered on 02/19/17 09:20; Admin Dose 1 EA; Start 02/14/17 at 17:00 Caspofungin/ Sodium Chloride (Cancidas/NS) 250 ml @ 250 mls/hr Q24H IVPB Last administered on 02/18/17 12:07; Admin Dose 250 MLS/HR; Start 02/16/17 at 12:00 Furosemide 20 mg 20 mg Q6 IV Last administered on 02/19/17 06:12; Admin Dose 20 MG; Start 02/18/17 at 00:00 Albumin Human 100 ml @ 100 mls/hr DAILY IV Last administered on 02/19/17 09:20 ; Admin Dose 100 MLS/HR; Start 02/19/17 at 09:00; Stop 02/21/17 at 09:59 Vancomycin HCl 1.25 gm/Sodium Chloride 250 ml @ 83.333 mls/ hr Q12H IVPB Last administered on 02/19/17 06:33; Admin Dose 83.333 MLS/HR; Start 02/19/17 at 06:00 Fentanyl (Sublimaze) 100 ml @ 2.5 mls/hr TITRATE IV Last administered on t 10:42; Admin Dose 2.5 MLS/HR; Start 02/19/17 at 10:00 Assessment/Plan Chief Complaint/Hosp Course Assessment 1. Crohn's disease with perforation of sigmoid colon and sepsis status post arthroscopic sigmoid colectomy and end colostomy with lysis of adhesions 2. Resolved metabolic acidosis with septic shock 3. Improved electrolyte imbalance 4. Hypoxemic respiratory failure possibly underlying pleural effusions with compressive atelectasis resulting in failure to wean from mechanical ventilation 5. Thrombocytopenia improved Plan 1. Add fentanyl to sedatives, decrease propofol as tolerated 2. CPAP trial if neurologically more alert decrease propofol 3. Continue surgical wound care 4. Continue broad-spectrum antibiotic coverage 5. Feeding via TPN 6. DVT GI prophylaxis Disposition Continue ICU care Disposition Stable to transfer to telemetry from pulmonary standpoint Discussed with nursing staff Critical care time 35 minutes Problems: RAMON DOUGLAS MD, FCCP February 19, 2017 10:57
--- NOTE | 2017-02-19 11:53 | CONS ---
Date/Time of Note Date/Time of Note DATE: 02/19/17 TIME: 11:51 Assessment/Plan Assessment/Plan Additional Assessment/Plan Perforated colon status post surgery Severe sepsis Respiratory failure-reintubated Low normal ejection fraction 50% Volume overload Crohn's disease Acute blood loss anemia -Lower extremity edema and respiratory status improving. Continue IV diuretics as blood pressure and renal function permits. Supplement potassium to maintain above 4.0 and magnesium above 2.0. Consultation Date/Type/Reason Admit Date/Time Feb 01, 2017 at 03:10 Initial Consult Date 02/02/17 Type of Consultation: cv Referring Provider: VINCE PADGETT 24 HR Interval Summary Free Text/Dictation Patient remains intubated, no new cardiac issues as per nursing staff Exam/Review of Systems Vital Signs Vitals Vital Signs Date Time Temp Pulse Resp B/P Pulse Ox O2 Delivery O2 Flow Rate FiO2 02/19/17 08:00 104 02/19/17 07:21 25 96 45 02/19/17 07:00 99.8 110/71 Mechanical Ventilator Intake and Output 02/18/17 02/18/17 02/19/17 15:00 23:00 07:00 Intake Total 1098.080 ml 715.232 ml 1255.814 ml Output Total 965 ml 1860 ml 1245 ml Balance 133.080 ml -1144.768 ml 10.814 ml Exam Intubated and sedated, no apparent distress Head: normocephalic ENMT: intubated Respiratory: other (Coarse breath sounds bilaterally, no wheezing) Cardiovascular: other (S1-S2 heard), regular rate and rhythm Gastrointestinal: bowel sounds, non-tender, soft Extremities: edema Results Result Diagram: 02/19/17 0500 02/19/17 0500 Results 24 hrs Laboratory Tests Test 02/18/17 11:54 02/18/17 13:14 02/18/17 16:55 02/18/17 17:17 Lab Scanned Report REFERENCE LAB Bedside Glucose 115 92 Vancomycin Level Trough 8.9 L Test 02/18/17 21:07 02/19/17 00:46 02/19/17 05:00 02/19/17 06:23 Bedside Glucose 77 104 125 White Blood Count 16.9 H Red Blood Count 2.98 L Hemoglobin 8.4 L Hematocrit 26.5 L Mean Corpuscular Volume 88.9 Mean Corpuscular Hemoglobin 28.2 L Mean Corpuscular Hemoglobin Concent 31.7 L Red Cell Distribution Width 15.7 H Platelet Count 304 Mean Platelet Volume 11.6 H Neutrophils % 86.9 H Lymphocytes % 4.1 L Monocytes % 5.0 Eosinophils % 1.9 Basophils % 0.1 Nucleated Red Blood Cells % 0.0 Neutrophils # 14.7 H Lymphocytes # 0.7 L Monocytes # 0.8 Eosinophils # 0.3 Basophils # 0.0 Nucleated Red Blood Cells # 0.0 Sodium Level 140 Potassium Level 3.4 L Chloride Level 105 Carbon Dioxide Level 25 Anion Gap 13 Blood Urea Nitrogen 18 Creatinine 0.66 Glucose Level 102 Calcium Level 7.7 L Phosphorus Level 3.9 Magnesium Level 1.6 L Test 02/19/17 09:21 Bedside Glucose 128 Medications Medications Current Medications Hydromorphone HCl (Dilaudid) 1 mg Q4H PRN IV pain Last administered on 17:31; Admin Dose 1 MG; Start 02/01/17 at 03:30 Pantoprazole (Protonix Iv) 40 mg DAILY@06 IV Last administered on 02/19/17 06: 12; Admin Dose 40 MG; Start 02/01/17 at 06:00 Acetaminophen/ Hydrocodone Bitart ([place] (5/325)) 1 tab Q4H PRN PO PAIN LEVEL 4 -7 Last administered on 02/09/17 18:48; Admin Dose 1 TAB; Start 02/01/17 at 20: 30 Acetaminophen/ Hydrocodone Bitart ([place] (5/325)) 2 tab Q4H PRN PO PAIN LEVEL 7 -10; Start 02/01/17 at 20:30 Hydromorphone HCl (Dilaudid) 0.5 mg Q2 PRN IV PAIN Last administered on 23:52; Admin Dose 0.5 MG; Start 02/01/17 at 20:30 Hydromorphone HCl (Dilaudid) 1 mg Q2 PRN IV PAIN Last administered on 11:57; Admin Dose 1 MG; Start 02/01/17 at 20:30 Docusate Sodium (Colace) 100 mg BID PRN PO CONSTIPATION; Start 02/01/17 at 20: 30 Bisacodyl (Dulcolax Supp) 10 mg BID PRN [place] CONSTIPATION; Start 02/01/17 at 20: 30 Sodium Biphosphate/ Sodium Phosphate 133 ml 133 ml BID PRN [place] CONSTIPATION; Start 02/01/17 at 20:30 Metronidazole 100 ml @ 100 mls/hr Q8 IVPB Last administered on 02/19/17 06:12 ; Admin Dose 100 MLS/HR; Start 02/04/17 at 15:00 Meropenem (Merrem 500 Mg/ 100 ml (Pmx)) 100 ml @ 200 mls/hr Q8 IVPB Last administered on 02/19/17 06:12; Admin Dose 200 MLS/HR; Start 02/05/17 at 22:00 Acetaminophen (Tylenol Liquid) 650 mg Q4H PRN GTB PAIN AND OR ELEVATED TEMP Last administered on 02/19/17 06:35; Admin Dose 650 MG; Start 02/05/17 at 18:30 Salmeterol Xinafoate/ Fluticasone (Advair 250/50 Diskus) 1 inh BID INH Last administered on 02/12/17 09:03; Admin Dose 1 INH; Start 02/07/17 at 11:00; Status Future Hold IV Flush (NS 10 ml) 10 ml PRN PRN IV IV PROTOCOL; Start 02/07/17 at 14:30 Diphenhydramine HCl 25 mg 25 mg Q6H PRN IV itching ; Start 02/07/17 at 20:00 Ondansetron HCl/ Sodium Chloride (Zofran Inj/NS) 54 ml @ 216 mls/hr Q6H PRN IV NAUSEA AND/OR VOMITING; Start 02/09/17 at 11:30 Prednisone (Prednisone) 40 mg DAILY PO Last administered on 02/12/17 09:03; Admin Dose 40 MG; Start 02/11/17 at 09:00; Status Future Hold Lorazepam (Ativan) 1 mg Q2 PRN IV AGITATION/ANXIETY Last administered on 17:31; Admin Dose 1 MG; Start 02/10/17 at 17:00 Lorazepam (Ativan) 1 mg Q1HWA PRN IM AGITATION/ANXIETY; Start 02/10/17 at 19:00 Trimethobenzamide HCl 200 mg 200 mg Q6H PRN IM NAUSEA AND/OR VOMITING; Start at 19:30 Norepinephrine 16 mg/Dextrose 500 ml @ 1.87 mls/hr TITRATE IV ; Start 02/13/17 at 12:00; Status Future hold Propofol 100 ml @ 2.202 mls/ hr Q12H IV Last administered on 02/19/17 10:44; Admin Dose 15.414 MLS/HR; Start 02/13/17 at 10:00 Total Parenteral Nutrition (Tpn) 1,000 ml @ 50 mls/hr Q20H IV Last administered on 02/19/17 00:04; Admin Dose 50 MLS/HR; Start 02/14/17 at 12:00 Diagnostic Test (Pha) 1 ea 1 ea Q4 XX Last administered on 02/19/17 09:20; Admin Dose 1 EA; Start 02/14/17 at 17:00 Caspofungin/ Sodium Chloride (Cancidas/NS) 250 ml @ 250 mls/hr Q24H IVPB Last administered on 02/18/17 12:07; Admin Dose 250 MLS/HR; Start 02/16/17 at 12:00 Furosemide 20 mg 20 mg Q6 IV Last administered on 02/19/17 06:12; Admin Dose 20 MG; Start 02/18/17 at 00:00 Albumin Human 100 ml @ 100 mls/hr DAILY IV Last administered on 02/19/17 09:20 ; Admin Dose 100 MLS/HR; Start 02/19/17 at 09:00; Stop 02/21/17 at 09:59 Vancomycin HCl 1.25 gm/Sodium Chloride 250 ml @ 83.333 mls/ hr Q12H IVPB Last administered on 02/19/17 06:33; Admin Dose 83.333 MLS/HR; Start 02/19/17 at 06:00 Fentanyl (Sublimaze) 100 ml @ 2.5 mls/hr TITRATE IV Last administered on 10:42; Admin Dose 2.5 MLS/HR; Start 02/19/17 at 10:00 Keith Gandhi DO February 19, 2017 11:53
[2017-02-19] MEDS ORDERED: POTASSIUM CHLORIDE 20 MEQ POWDER FOR ORAL SOLN NGT ONE ×2 (12:00→18:00)
--- NOTE | 2017-02-19 12:06 | PN ---
Date/Time of Note Date/Time of Note DATE: 02/19/17 TIME: 11:59 Assessment/Plan VTE Prophylaxis VTE Prophylaxis Intervention: heparin Lines/Catheters IV Catheter Type (from Nrs): PICC Line Central line still needed: Yes Urinary Cath still in place: Yes Reason Cath still needed: other (indicate) Assessment/Plan Assessment/Plan IMPRESSION 1. Perforated sigmoid colon 2/2 Severe Crohn's colitis * S/p Urgent Open Cronin's procedure with end colostomy, liver biopsy and abdominal lavage 02/01/17P * S/p post operative paracolic abscess drained via CT 02/14/[address] * S/p Exploration of abdomen through recent laparotomy site with closure of fascia done 02/15/17 for Fascia dehiscence 2. Recurrent Resp failure: Extubated then reintubated 02/13: currently vent dependent 3. Exacerbation of Crohn's disease with acute colitis and diarrhea Cultures growing ecoli / proteus / enterococcus 4. Multifocal PNA + Mook Pleural effusions Effusions likely hydrostatic from hypoalbuminemia 5. Severe Sepsis with lactic acidosis 2/2 severe colitis / PNA 6. S/p Systemic shock (hypovolemic +septic) 7. TPN therapy for low prealbumin + tube feeds 8. Hx of heavy alcohol and tobacco use just until admission 9. Probable underlying COPD and Cirrhosis based on hx which explains hypoalbuminemia and anasarca 10. Severe recurrent anemia likely 2/2 occult blood loss from multiple sources : PRN transfusions 11. Hypomagnesemia PLAN: * Continue current ICU care and Vent Mgt and weaning * Continue post Op wound care/ electrolyte management * Begin to wean TPN if tolerating tube feeds * Continue Wound care and wound Vac * ID managing abx and antifungal * Replace electrolytes as needed * Continue albumin therapy * PRN pain control/ antiemetics/ antipyretics/ supportive care * Low dose heparin for prophylaxis CRITICAL CARE TIME: >35 mins Subjective 24 Hr Interval Summary Free Text/Dictation Patient seen and examined. Nursing reports no acute overnight events. Subjective hx not possible: pt non-verbal, pt critical status Exam/Review of Systems Vital Signs Vitals Vital Signs Date Time Temp Pulse Resp B/P Pulse Ox O2 Delivery O2 Flow Rate FiO2 02/19/17 08:00 104 02/19/17 07:21 25 96 45 02/19/17 07:00 99.8 110/71 Mechanical Ventilator Intake and Output 02/18/17 02/18/17 02/19/17 15:00 23:00 07:00 Intake Total 1098.080 ml 715.232 ml 1255.814 ml Output Total 965 ml 1860 ml 1245 ml Balance 133.080 ml -1144.768 ml 10.814 ml Exam Constitutional: other (arousable, able to shake hands and move both upper extremities) Head: normocephalic Eyes: PERRL, icteric ENMT: intubated Respiratory: crackles/rales (coarse), diminished breath sounds, No labored breathing Cardiovascular: nl pulses, regular rate and rhythm Gastrointestinal: bowel sounds, distended (mildly), other (surgical wound clean and non oozing with mid line deficit covered with wound vac, Colostomy with dark green stool), soft Genitourinary - Male: other (still with scrotal and penile edema) Extremities: pitting edema in all extremities (+++) Neurological: lethargic, No unresponsive Skin: other (icteric) Results Result Diagram: 02/19/17 0500 02/19/17 0500 Results 24 hrs Laboratory Tests Test 02/18/17 13:14 02/18/17 16:55 02/18/17 17:17 02/18/17 21:07 Bedside Glucose 115 92 77 Vancomycin Level Trough 8.9 L Test 02/19/17 00:46 02/19/17 05:00 02/19/17 06:23 02/19/17 09:21 Bedside Glucose 104 125 128 White Blood Count 16.9 H Red Blood Count 2.98 L Hemoglobin 8.4 L Hematocrit 26.5 L Mean Corpuscular Volume 88.9 Mean Corpuscular Hemoglobin 28.2 L Mean Corpuscular Hemoglobin Concent 31.7 L Red Cell Distribution Width 15.7 H Platelet Count 304 Mean Platelet Volume 11.6 H Neutrophils % 86.9 H Lymphocytes % 4.1 L Monocytes % 5.0 Eosinophils % 1.9 Basophils % 0.1 Nucleated Red Blood Cells % 0.0 Neutrophils # 14.7 H Lymphocytes # 0.7 L Monocytes # 0.8 Eosinophils # 0.3 Basophils # 0.0 Nucleated Red Blood Cells # 0.0 Sodium Level 140 Potassium Level 3.4 L Chloride Level 105 Carbon Dioxide Level 25 Anion Gap 13 Blood Urea Nitrogen 18 Creatinine 0.66 Glucose Level 102 Calcium Level 7.7 L Phosphorus Level 3.9 Magnesium Level 1.6 L Medications Medications Current Medications Hydromorphone HCl (Dilaudid) 1 mg Q4H PRN IV pain Last administered on 17:31; Admin Dose 1 MG; Start 02/01/17 at 03:30 Pantoprazole (Protonix Iv) 40 mg DAILY@06 IV Last administered on 02/19/17 06: 12; Admin Dose 40 MG; Start 02/01/17 at 06:00 Acetaminophen/ Hydrocodone Bitart ([place] (5/325)) 1 tab Q4H PRN PO PAIN LEVEL 4 -7 Last administered on 02/09/17 18:48; Admin Dose 1 TAB; Start 02/01/17 at 20: 30 Acetaminophen/ Hydrocodone Bitart ([place] (5/325)) 2 tab Q4H PRN PO PAIN LEVEL 7 -10; Start 02/01/17 at 20:30 Hydromorphone HCl (Dilaudid) 0.5 mg Q2 PRN IV PAIN Last administered on 23:52; Admin Dose 0.5 MG; Start 02/01/17 at 20:30 Hydromorphone HCl (Dilaudid) 1 mg Q2 PRN IV PAIN Last administered on 11:57; Admin Dose 1 MG; Start 02/01/17 at 20:30 Docusate Sodium (Colace) 100 mg BID PRN PO CONSTIPATION; Start 02/01/17 at 20: 30 Bisacodyl (Dulcolax Supp) 10 mg BID PRN [place] CONSTIPATION; Start 02/01/17 at 20: 30 Sodium Biphosphate/ Sodium Phosphate 133 ml 133 ml BID PRN [place] CONSTIPATION; Start 02/01/17 at 20:30 Metronidazole 100 ml @ 100 mls/hr Q8 IVPB Last administered on 02/19/17 06:12 ; Admin Dose 100 MLS/HR; Start 02/04/17 at 15:00 Meropenem (Merrem 500 Mg/ 100 ml (Pmx)) 100 ml @ 200 mls/hr Q8 IVPB Last administered on 02/19/17 06:12; Admin Dose 200 MLS/HR; Start 02/05/17 at 22:00 Acetaminophen (Tylenol Liquid) 650 mg Q4H PRN GTB PAIN AND OR ELEVATED TEMP Last administered on 02/19/17 06:35; Admin Dose 650 MG; Start 02/05/17 at 18:30 Salmeterol Xinafoate/ Fluticasone (Advair 250/50 Diskus) 1 inh BID INH Last administered on 02/12/17 09:03; Admin Dose 1 INH; Start 02/07/17 at 11:00; Status Future Hold IV Flush (NS 10 ml) 10 ml PRN PRN IV IV PROTOCOL; Start 02/07/17 at 14:30 Diphenhydramine HCl 25 mg 25 mg Q6H PRN IV itching ; Start 02/07/17 at 20:00 Ondansetron HCl/ Sodium Chloride (Zofran Inj/NS) 54 ml @ 216 mls/hr Q6H PRN IV NAUSEA AND/OR VOMITING; Start 02/09/17 at 11:30 Prednisone (Prednisone) 40 mg DAILY PO Last administered on 02/12/17 09:03; Admin Dose 40 MG; Start 02/11/17 at 09:00; Status Future Hold Lorazepam (Ativan) 1 mg Q2 PRN IV AGITATION/ANXIETY Last administered on 17:31; Admin Dose 1 MG; Start 02/10/17 at 17:00 Lorazepam (Ativan) 1 mg Q1HWA PRN IM AGITATION/ANXIETY; Start 02/10/17 at 19:00 Trimethobenzamide HCl 200 mg 200 mg Q6H PRN IM NAUSEA AND/OR VOMITING; Start at 19:30 Norepinephrine 16 mg/Dextrose 500 ml @ 1.87 mls/hr TITRATE IV ; Start 02/13/17 at 12:00; Status Future hold Propofol 100 ml @ 2.202 mls/ hr Q12H IV Last administered on 02/19/17 10:44; Admin Dose 15.414 MLS/HR; Start 02/13/17 at 10:00 Total Parenteral Nutrition (Tpn) 1,000 ml @ 50 mls/hr Q20H IV Last administered on 02/19/17 00:04; Admin Dose 50 MLS/HR; Start 02/14/17 at 12:00 Diagnostic Test (Pha) 1 ea 1 ea Q4 XX Last administered on 02/19/17 09:20; Admin Dose 1 EA; Start 02/14/17 at 17:00 Caspofungin/ Sodium Chloride (Cancidas/NS) 250 ml @ 250 mls/hr Q24H IVPB Last administered on 02/18/17 12:07; Admin Dose 250 MLS/HR; Start 02/16/17 at 12:00 Furosemide 20 mg 20 mg Q6 IV Last administered on 02/19/17 06:12; Admin Dose 20 MG; Start 02/18/17 at 00:00 Albumin Human 100 ml @ 100 mls/hr DAILY IV Last administered on 02/19/17 09:20 ; Admin Dose 100 MLS/HR; Start 02/19/17 at 09:00; Stop 02/21/17 at 09:59 Vancomycin HCl 1.25 gm/Sodium Chloride 250 ml @ 83.333 mls/ hr Q12H IVPB Last administered on 02/19/17 06:33; Admin Dose 83.333 MLS/HR; Start 02/19/17 at 06:00 Fentanyl 100 ml @ 2.5 mls/hr TITRATE IV Last administered on 02/19/17 10:42; Admin Dose 2.5 MLS/HR; Start 02/19/17 at 10:00 Magnesium Sulfate/ Sodium Chloride (Magnesium Sulfate/NS) 106 ml @ 35.333 mls/ hr ONCE ONCE IVPB ; Start 02/19/17 at 12:00; Stop 02/19/17 at 14:59; Status UNV Potassium Chloride (Potassium Chloride Pwd/Soln) 40 meq ONCE ONCE NGT ; Start 02/19/17 at 12:00; Stop 02/19/17 at 12:01; Status UNV Potassium Chloride (Potassium Chloride Pwd/Soln) 40 meq ONCE ONCE NGT ; Start 02/19/17 at 18:00; Stop 02/19/17 at 18:01; Status UNV Procedures Procedures PROCEDURE: XR Chest. CLINICAL INDICATION: Shortness of breath. TECHNIQUE: Single frontal view. COMPARISON: 02/17/2017. FINDINGS: The endotracheal tube and nasogastric tube are in satisfactory position. There is atelectasis or pneumonia at the lung bases, unchanged. The heart size is normal. There are small bilateral pleural effusions. There is no pneumothorax. IMPRESSION: 1. No change from 02/17/2017. RPTAT: QQ .Rogelio Vera MD, MD Date Time Electronically viewed and signed by .Rogelio Vera MD, on 02/19/2017 07:48 .R/ CC: RICHAR ADRIAN BOLATITO M. February 19, 2017 12:06
[2017-02-19] MEDS: CASPOFUNGIN 50 MG in SOD CHLORIDE 0.9% 250 ML IVPB SCH (12:52)
[2017-02-19] MEDS ORDERED: MAGNESIUM SULFATE 3 GM in SOD CHLORIDE 0.9% 100 ML IVPB ONE (13:00)
--- NOTE | 2017-02-19 13:09 | PN ---
DATE: 02/19/2017 SUBJECTIVE: No acute changes overnight. The patient again spiked fever today of 100.2 in the morni ng. He is awake, comfortable, on vent and in no distress. VITAL SIGNS: Temperature 99.8, pulse 104, respirations 27, blood pressure 110/71, saturation 93% on 45% FIO2. LABORATORY DATA: WBC 16.9, H and H 8.1 and 26.5, platelet 304, neutrophils 86.9. BUN 18, creatinin e 0.66. MICROBIOLOGY: Cultures remain negative. INDWELLINGS: Endotracheal tube, NG tube, Zeng catheter, left-sided abdominal drainage catheter. DIAGNOSTICS: Chest x-ray revealed unchanged atelectasis or pneumonia at lung bases. ANTIMICROBIALS: 1. Vancomycin. 2. Cancidas. 3. Meropenem. 4. Flagyl. PHYSICAL EXAMINATION: GENERAL: This is a well-developed, middle-aged white man who is awake, in no distress. HEENT: Head atraumatic, normocephalic. Sclerae anicteric. Buccal mucosa dry. NECK: Supple. CHEST: Rise symmetrical. Breath sounds clear, diminished to bases. HEART: S1, S2. ABDOMEN: Soft. Mid abdominal dressing to wound VAC. EXTREMITIES: Without cyanosis. Bilateral edema, dependent. SKIN: Positive for anasarca. ASSESSMENT: 1. Ongoing sepsis with low-grade fevers and leukocytosis. 2. Healthcare-associated pneumonia. 3. History of Crohn's disease. 4. Status post perforated viscus repair on 02/01/2017 complicated by intra-abdominal abscess, statu s post drainage on 02/14/2017. 5. Status post exploration of the abdomen with abdominal lavage on 02/15/2017. 6. Anemia. PLAN: The patient remains hemodynamically stable. Failed weaning trials yesterday. Covered with b road-spectrum antibiotics. Surgery, cardiology, gastroenterology and pulmonary follow. Dictated By: THOMAS ELLIS POND TENDER for MICKY RAMÍREZ/YAN Conf#: [id number] DID#: [id number]
--- NOTE | 2017-02-19 13:58 | PN ---
Date/Time of Note Date/Time of Note DATE: 02/19/17 TIME: 13:56 Assessment/Plan Lines/Catheters IV Catheter Type (from Nrsg): PICC Line Zeng in Place (from Nrsg): Yes Assessment/Plan Assessment/Plan [facility] Progress Note Date of Service: 02/19/17 Today's Impression & Plan: Overall stable and seems more improved. Still on the vent. No obvious issues with the wound and abd remains benign. Still with pulmonary issues exacerbated by ETOH withdrawal. Fevers noted last night. No indication for acute surgical intervention. Remains high risk for complication given perforated colon in the setting of uncontrolled Crohn's. Recovery will take extra time with likely need for rehab. D/w team and updated patient's father over the phone. With above assessment, I've recommended the following for today: 1. Cont current cares in ICU 2. F/u on cultures 3. Cont TPN 4. Treat ETOH withdrawal 5. Cont gentle diuresis to BMP < 200 6. Social work and case management to please start working on possible rehab vs. home health nurse set up 7. Increase activity 8. Increase ICS 9. Cont broad spec antimicrobials 10. Labs in am 11. Cont current wound care with wound vac 12. Increase gastric feeds to goal rate as tolerated Thank you again for your great care of this very pleasant patient and wonderful family. If there are any questions, please feel free to call me at [phone]. TOTAL VISIT TIME: 20 minutes of which more than half was spent in [id number] discussion with the patient, possibly including family, as well as coordination of care between multiple physicians and providers. Disclaimer: Inadvertent spelling or grammatical errors are likely due to EHR/ dictation software use and do not reflect on the overall quality of patient care. Updated Clinical Summary: A very pleasant 46-year-old gentleman with history of Crohn's disease as well as prior surgery for anal fistula approximately 5 years ago, and a torn meniscus repair on the left knee, presenting with abdominal pain associated with a few weeks' duration of diarrhea. S/p an otherwise uncomplicated diagnostic laparoscopy was converted first to hand assist and then to open exploration when perforated sigmoid colon was found and it was resected with a Deena type procedure and end colostomy as well as core needle liver biopsy, segment 5, due to presence of fatty liver disease, lysis of adhesions, and abdominal lavage on 02/01/17. Failed to wean off the vent through 02/06/17. PE was evaluated 02/07/[address] angio and no evidence found. CT abd/pelvis also did not show actionable findings (no abscess; bowel thickening somewhat expected). Extubated 02/07/17. 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 Fortunately, mentally appears to be intact and not on pressors. Lactic acid and CO2 normal with benign appearing abd and viable ostomy. Complicated by fascia dehiscence. S/p exploration of abdomen through recent laparotomy, primary closure of fascia and abdominal lavage on 02/15/17. COMORBIDITIES: 1. Crohn disease with perforation of sigmoid colon and sepsis. S/p an otherwise uncomplicated diagnostic laparoscopy was converted first to hand assist and then to open exploration when perforated sigmoid colon was found and it was resected with a Deena type procedure and end colostomy as well as core needle liver biopsy, segment 5, due to presence of fatty liver disease, lysis of adhesions, and abdominal lavage on 02/01/17. Complicated by respiratory failure, return trip to ICU and fascia dehiscence. S/p exploration of abdomen through recent laparotomy, primary closure of fascia and abdominal lavage on 02/15. 2. Repair of a fistula approximately 5 years ago. 3. Torn meniscus on the left knee status post repair. Subjective: No major events overnight; no major complaints; arousable but sedated; does not appear to report abd pain when asked; + BM Objective: Vitals: See below Exam: GENERAL: On exam, the patient was laying in bed and appeared to be comfortable and in no acute distress. Intubated. ABDOMEN: Soft, nontender and nondistended. Incision wound vac dressings are clean without any evidence of obvious erythema, edema, discharge, or hernia. Surgery drain site clean. Ostomy pink and viable; some air and stool in the bag. There are no peritoneal signs or guarding. SKIN: Skin appears to be pink and feels warm to touch. NEUROLOGIC: Patient is sedated, but appears to wake up to voice and does not follow commands appropriately. Exam/Review of Systems Vital Signs Vitals Vital Signs Date Time Temp Pulse Resp B/P Pulse Ox O2 Delivery O2 Flow Rate FiO2 02/19/17 13:08 95 29 97 40 02/19/17 07:00 99.8 110/71 Mechanical Ventilator Intake and Output 02/18/17 02/18/17 02/19/17 15:00 23:00 07:00 Intake Total 1098.080 ml 715.232 ml 1255.814 ml Output Total 965 ml 1860 ml 1245 ml Balance 133.080 ml -1144.768 ml 10.814 ml Results Result Diagram: 02/19/17 0500 02/19/17 0500 TI HILTON M.D. February 19, 2017 13:58
[2017-02-19] MEDS: VANCOMYCIN 1.5 GM in SOD CHLORIDE 0.9% 250 ML IVPB SCH (17:30)
[2017-02-20] VITALS (36 sets, daily range): BP systolic 93–128; BP diastolic 55–84; PULSE 85–115; RESP 18–35
[2017-02-20] MEDS: FUROSEMIDE 20 MG INJ IV SCH ×4 (00:31→18:07)
[2017-02-20] MEDS: ACCU-CHEK XX SCH ×6 (00:36→21:17)
[2017-02-20] MEDS: ACETAMINOPHEN 650MG/20.3ML CUP GTB PRN (01:22)
[2017-02-20] MEDS: PROPOFOL 100 ML IV SCH ×2 (01:55→08:21)
[2017-02-20] MEDS: FENTAnyl (DRIP) 1000 mcg/100mL 100 ML IV SCH (04:45)
[2017-02-20 05:07] LABS: ADD SCAN DIFF NO
[2017-02-20 05:12] LABS: BASOPHILS % 0.2 % (0.0-2.0); EOSINOPHILS # 0.3 10^3/ul (0.0-0.5); EOSINOPHILS % 2.1 % (0.0-7.0); HEMATOCRIT 23.8 % (42.0-52.0); HEMOGLOBIN 7.5 g/dl (14.0-18.0); LYMPHOCYTES # 0.7 10^3/ul (0.8-2.9); LYMPHOCYTES % 4.7 % (15.0-51.0); MEAN CORPUSCULAR HEMOGLOBIN 28.5 pg (29.0-33.0); MEAN CORPUSCULAR HGB CONC 31.5 g/dl (32.0-37.0); MEAN CORPUSCULAR VOLUME 90.5 fl (82.0-101.0); MEAN PLATELET VOLUME 11.7 fl (7.4-10.4); MONOCYTE # 0.8 10^3/ul (0.3-0.9); MONOCYTES % 5.6 % (0.0-11.0); NEUTROPHIL # 12.1 10^3/ul (1.6-7.5); NEUTROPHILS % 85.1 % (39.0-77.0); PLATELET COUNT 306 10^3/UL (140-415); RED BLOOD COUNT 2.63 10^6/ul (4.70-6.10); RED CELL DISTRIBUTION WIDTH 15.1 % (11.5-14.5); WHITE BLOOD COUNT 14.2 10^3/ul (4.8-10.8)
[2017-02-20] MEDS: metroNIDAZOLE 500 MG/NS (PMX) 100 ML IVPB SCH ×3 (05:19→22:05)
[2017-02-20] MEDS: MEROPENEM 500 MG/100 ML (PMX) 100 ML IVPB SCH ×3 (05:19→21:32)
[2017-02-20] MEDS: PANTOPRAZOLE 40 MG INJ IV SCH (05:19)
[2017-02-20 05:34] LABS: POTASSIUM 3.9 mmol/L (3.5-5.1)
[2017-02-20 05:36] LABS: CREATININE 0.66 mg/dl (0.61-1.24)
[2017-02-20 05:37] LABS: CALCIUM 7.4 mg/dl (8.4-10.2); MAGNESIUM 1.7 mg/dl (1.7-2.5); PHOSPHORUS 4.1 mg/dl (2.5-4.9)
[2017-02-20] MEDS: VANCOMYCIN 1.5 GM in SOD CHLORIDE 0.9% 250 ML IVPB SCH ×2 (05:58→18:07)
--- NOTE | 2017-02-20 07:41 | CONS ---
Date/Time of Note Date/Time of Note DATE: 02/20/17 TIME: 07:32 Assessment/Plan Assessment/Plan Additional Assessment/Plan Additional Assessment/Plan Perforated sigmoid colon * Laparoscopic exploration,open sigmoid colectomy with Deena end colostomy with liver biopsy segment V h/o Crohn's disease Thrombocytopenia Liver Cirrhosis Anemia Plan: Continue present management Will reevaluate for Crohn's disease once recovered from surgery Monitor hemoglobin every 8 hours, transfuse 1 unit for hemoglobin less than 7.5 and 2 units for hemoglobin less than 7.0 Further recommendations depend on clinical course Pt seen in collaboration with Dr. Jackson Consultation Date/Type/Reason Admit Date/Time Feb 01, 2017 at 03:10 Initial Consult Date 02/02/17 Type of Consultation: Gastroenterology Referring Provider: VINCE PADGETT 24 HR Interval Summary Free Text/Dictation Hemoglobin stable at 7.5, rechecked at 1200 Tube feed at goal rate with minimal residual Intubated and sedated Exam/Review of Systems Vital Signs Vitals Vital Signs Date Time Temp Pulse Resp B/P Pulse Ox O2 Delivery O2 Flow Rate FiO2 02/20/17 06:00 96 20 105/63 96 Mechanical Ventilator 02/20/17 05:08 40 02/20/17 04:00 99.3 Intake and Output 02/19/17 02/19/17 02/20/17 15:00 23:00 07:00 Intake Total 1443.790 ml 1115.232 ml 929.161 ml Output Total 1195 ml 1910 ml 1220 ml Balance 248.790 ml -794.768 ml -290.839 ml Exam Constitutional: frail, intubated and sedated Eyes: nl sclera Neck: non-tender, supple Respiratory: intubated Cardiovascular: nl pulses, regular rate and rhythm Gastrointestinal: bowel sounds, distended, non-tender, other (colostomy ), soft Musculoskeletal: nl extremities to inspection Extremities: normal pulses Skin: rash or lesions Results Result Diagram: 02/20/1743902/20/17439 Results 24 hrs Laboratory Tests Test 02/19/17 09:21 02/19/17 12:58 02/19/17 17:17 02/19/17 20:35 Bedside Glucose 128 93 117 91 Test 02/20/17 00:35 02/20/17 04:40 02/20/17 05:18 Bedside Glucose 96 116 White Blood Count 14.2 H Red Blood Count 2.63 L Hemoglobin 7.5 L Hematocrit 23.8 L Mean Corpuscular Volume 90.5 Mean Corpuscular Hemoglobin 28.5 L Mean Corpuscular Hemoglobin Concent 31.5 L Red Cell Distribution Width 15.1 H Platelet Count 306 Mean Platelet Volume 11.7 H Neutrophils % 85.1 H Lymphocytes % 4.7 L Monocytes % 5.6 Eosinophils % 2.1 Basophils % 0.2 Nucleated Red Blood Cells % 0.0 Neutrophils # 12.1 H Lymphocytes # 0.7 L Monocytes # 0.8 Eosinophils # 0.3 Basophils # 0.0 Nucleated Red Blood Cells # 0.0 Sodium Level 136 Potassium Level 3.9 Chloride Level 102 Carbon Dioxide Level 28 Anion Gap 10 Blood Urea Nitrogen 17 Creatinine 0.66 Glucose Level 103 Calcium Level 7.4 L Phosphorus Level 4.1 Magnesium Level 1.7 Medications Medications Current Medications Hydromorphone HCl (Dilaudid) 1 mg Q4H PRN IV pain Last administered on 17:31; Admin Dose 1 MG; Start 02/01/17 at 03:30 Pantoprazole (Protonix Iv) 40 mg DAILY@06 IV Last administered on 02/20/17 05: 19; Admin Dose 40 MG; Start 02/01/17 at 06:00 Acetaminophen/ Hydrocodone Bitart ([place] (5/325)) 1 tab Q4H PRN PO PAIN LEVEL 4 -7 Last administered on 02/09/17 18:48; Admin Dose 1 TAB; Start 02/01/17 at 20: 30 Acetaminophen/ Hydrocodone Bitart ([place] (5/325)) 2 tab Q4H PRN PO PAIN LEVEL 7 -10; Start 02/01/17 at 20:30 Hydromorphone HCl (Dilaudid) 0.5 mg Q2 PRN IV PAIN Last administered on 23:52; Admin Dose 0.5 MG; Start 02/01/17 at 20:30 Hydromorphone HCl (Dilaudid) 1 mg Q2 PRN IV PAIN Last administered on 11:57; Admin Dose 1 MG; Start 02/01/17 at 20:30 Docusate Sodium (Colace) 100 mg BID PRN PO CONSTIPATION; Start 02/01/17 at 20: 30 Bisacodyl (Dulcolax Supp) 10 mg BID PRN [place] CONSTIPATION; Start 02/01/17 at 20: 30 Sodium Biphosphate/ Sodium Phosphate 133 ml 133 ml BID PRN [place] CONSTIPATION; Start 02/01/17 at 20:30 Metronidazole 100 ml @ 100 mls/hr Q8 IVPB Last administered on 02/20/17 05:19 ; Admin Dose 100 MLS/HR; Start 02/04/17 at 15:00 Meropenem (Merrem 500 Mg/ 100 ml (Pmx)) 100 ml @ 200 mls/hr Q8 IVPB Last administered on 02/20/17 05:19; Admin Dose 200 MLS/HR; Start 02/05/17 at 22:00 Acetaminophen (Tylenol Liquid) 650 mg Q4H PRN GTB PAIN AND OR ELEVATED TEMP Last administered on 02/20/17 01:22; Admin Dose 650 MG; Start 02/05/17 at 18:30 Salmeterol Xinafoate/ Fluticasone (Advair 250/50 Diskus) 1 inh BID INH Last administered on 02/12/17 09:03; Admin Dose 1 INH; Start 02/07/17 at 11:00; Status Future Hold IV Flush (NS 10 ml) 10 ml PRN PRN IV IV PROTOCOL; Start 02/07/17 at 14:30 Diphenhydramine HCl 25 mg 25 mg Q6H PRN IV itching ; Start 02/07/17 at 20:00 Ondansetron HCl/ Sodium Chloride (Zofran Inj/NS) 54 ml @ 216 mls/hr Q6H PRN IV NAUSEA AND/OR VOMITING; Start 02/09/17 at 11:30 Prednisone (Prednisone) 40 mg DAILY PO Last administered on 02/12/17 09:03; Admin Dose 40 MG; Start 02/11/17 at 09:00; Status Future Hold Lorazepam (Ativan) 1 mg Q2 PRN IV AGITATION/ANXIETY Last administered on 17:31; Admin Dose 1 MG; Start 02/10/17 at 17:00 Lorazepam (Ativan) 1 mg Q1HWA PRN IM AGITATION/ANXIETY; Start 02/10/17 at 19:00 Trimethobenzamide HCl 200 mg 200 mg Q6H PRN IM NAUSEA AND/OR VOMITING; Start at 19:30 Norepinephrine 16 mg/Dextrose 500 ml @ 1.87 mls/hr TITRATE IV ; Start 02/13/17 at 12:00; Status Future hold Propofol 100 ml @ 2.202 mls/ hr Q12H IV Last administered on 02/20/17 01:55; Admin Dose 15.414 MLS/HR; Start 02/13/17 at 10:00 Total Parenteral Nutrition (Tpn) 1,000 ml @ 50 mls/hr Q20H IV Last administered on 02/19/17 20:33; Admin Dose 50 MLS/HR; Start 02/14/17 at 12:00 Diagnostic Test (Pha) 1 ea 1 ea Q4 XX Last administered on 02/20/17 05:10; Admin Dose 1 EA; Start 02/14/17 at 17:00 Caspofungin/ Sodium Chloride (Cancidas/NS) 250 ml @ 250 mls/hr Q24H IVPB Last administered on 02/19/17 12:52; Admin Dose 250 MLS/HR; Start 02/16/17 at 12:00 Furosemide 20 mg 20 mg Q6 IV Last administered on 02/20/17 05:20; Admin Dose 20 MG; Start 02/18/17 at 00:00 Albumin Human 100 ml @ 100 mls/hr DAILY IV Last administered on 02/19/17 09:20 ; Admin Dose 100 MLS/HR; Start 02/19/17 at 09:00; Stop 02/21/17 at 09:59 Fentanyl 100 ml @ 2.5 mls/hr TITRATE IV Last administered on 02/20/17 04:45; Admin Dose 5 MLS/HR; Start 02/19/17 at 10:00 Vancomycin HCl/ Sodium Chloride (Vancocin/NS) 250 ml @ 83.333 mls/ hr Q12H IVPB Last administered on 02/20/17 05:58; Admin Dose 83.333 MLS/HR; Start at 18:00 TONY MCCRAY February 20, 2017 07:41
[2017-02-20 08:07] LABS: AADO2 Arterial 139.6 mmHg (7.0-24.0); Allen Test ACCEPTAB; Arterial Base Excess 1.2 mmol/L (-3.0-3); Arterial COHb 0.3 % (0.0-3.0); Arterial Fraction of Oxyhgb 95.7 % (93.0-99.0); Arterial MetHb 0.5 % (0.0-1.5); Arterial Total Hemglobin 9.5 g/dl (12.0-18.0); MODE VENT - AC
[2017-02-20] MEDS: ALBUMIN HUMAN 25% 100 ML IV SCH (09:06)
--- NOTE | 2017-02-20 09:18 | CONS ---
Date/Time of Note Date/Time of Note DATE: 02/20/17 TIME: 09:17 Assessment/Plan Assessment/Plan Chief Complaint/Hosp Course Perforated colon status post surgery Severe sepsis Respiratory failure-reintubated Low normal ejection fraction 50% Volume overload Crohn's disease Acute blood loss anemia Problems: Additional Assessment/Plan no change in cardiac care ventilator mgt, weaning trial ongoing Consultation Date/Type/Reason Admit Date/Time Feb 01, 2017 at 03:10 Initial Consult Date 02/02/17 Type of Consultation: cv Referring Provider: VINCE PADGETT 24 HR Interval Summary Free Text/Dictation intubated Subjective hx not possible: pt non-verbal, pt critical status Exam/Review of Systems Vital Signs Vitals Vital Signs Date Time Temp Pulse Resp B/P Pulse Ox O2 Delivery O2 Flow Rate FiO2 02/20/17 08:00 92 02/20/17 06:00 20 105/63 96 Mechanical Ventilator 02/20/17 05:08 40 02/20/17 04:00 99.3 Intake and Output 02/19/17 02/19/17 02/20/17 15:00 23:00 07:00 Intake Total 1443.790 ml 1115.232 ml 929.161 ml Output Total 1195 ml 1910 ml 1220 ml Balance 248.790 ml -794.768 ml -290.839 ml Exam ENMT: intubated Neck: jvd Respiratory: clear to auscultation Cardiovascular: regular rate and rhythm Musculoskeletal: nl extremities to inspection Results Result Diagram: 02/20/17 0440 02/20/17 0440 Results 24 hrs Laboratory Tests Test 02/19/17 09:21 02/19/17 12:58 02/19/17 17:17 02/19/17 20:35 Bedside Glucose 128 93 117 91 Test 02/20/17 00:35 02/20/17 04:40 02/20/17 05:18 02/20/17 07:00 Bedside Glucose 96 116 White Blood Count 14.2 H Red Blood Count 2.63 L Hemoglobin 7.5 L Hematocrit 23.8 L Mean Corpuscular Volume 90.5 Mean Corpuscular Hemoglobin 28.5 L Mean Corpuscular Hemoglobin Concent 31.5 L Red Cell Distribution Width 15.1 H Platelet Count 306 Mean Platelet Volume 11.7 H Neutrophils % 85.1 H Lymphocytes % 4.7 L Monocytes % 5.6 Eosinophils % 2.1 Basophils % 0.2 Nucleated Red Blood Cells % 0.0 Neutrophils # 12.1 H Lymphocytes # 0.7 L Monocytes # 0.8 Eosinophils # 0.3 Basophils # 0.0 Nucleated Red Blood Cells # 0.0 Sodium Level 136 Potassium Level 3.9 Chloride Level 102 Carbon Dioxide Level 28 Anion Gap 10 Blood Urea Nitrogen 17 Creatinine 0.66 Glucose Level 103 Calcium Level 7.4 L Phosphorus Level 4.1 Magnesium Level 1.7 Blood Gas Specimen Source Blood arterial Arterial Blood Date Drawn 02/20/2017 7:38:00 AM Arterial Blood pH (Temp corrected) 7.406 Arterial Blood pCO2 (Temp correct) 42.4 Arterial Blood pO2 (Temp corrected) 96.8 Arterial Blood HCO3 26.0 Arterial Blood Base Excess 1.2 Arterial Blood Oxygen Saturation 96.5 Raffy Test ACCEPTAB Arterial Blood Gas Puncture Site Right Radial Arterial Blood Carboxyhemoglobin 0.3 Arterial Blood Methemoglobin 0.5 Blood Gas A-a O2 Differential 139.6 H Oxyhemoglobin Percent 95.7 Total Hemoglobin 9.5 L Blood Gas Temperature 37.0 Blood Gas Respiration Rate 18.0 Blood Gas Actual Respiration Rate 18 Blood Gas Modality VENT - AC FiO2 40.0 Blood Gas Tidal Volume 550.0 Blood Gas Low PEEP Setting 5.0 Blood Gas Notified Whom DT Blood Gas Notified Time 02/20/2017 8:07:00 AM Test 02/20/17 09:08 Bedside Glucose 99 Medications Medications Current Medications Hydromorphone HCl (Dilaudid) 1 mg Q4H PRN IV pain Last administered on 17:31; Admin Dose 1 MG; Start 02/01/17 at 03:30 Pantoprazole (Protonix Iv) 40 mg DAILY@06 IV Last administered on 02/20/17 05: 19; Admin Dose 40 MG; Start 02/01/17 at 06:00 Acetaminophen/ Hydrocodone Bitart ([place] (5/325)) 1 tab Q4H PRN PO PAIN LEVEL 4 -7 Last administered on 02/09/17 18:48; Admin Dose 1 TAB; Start 02/01/17 at 20: 30 Acetaminophen/ Hydrocodone Bitart ([place] (5/325)) 2 tab Q4H PRN PO PAIN LEVEL 7 -10; Start 02/01/17 at 20:30 Hydromorphone HCl (Dilaudid) 0.5 mg Q2 PRN IV PAIN Last administered on 23:52; Admin Dose 0.5 MG; Start 02/01/17 at 20:30 Hydromorphone HCl (Dilaudid) 1 mg Q2 PRN IV PAIN Last administered on 11:57; Admin Dose 1 MG; Start 02/01/17 at 20:30 Docusate Sodium (Colace) 100 mg BID PRN PO CONSTIPATION; Start 02/01/17 at 20: 30 Bisacodyl (Dulcolax Supp) 10 mg BID PRN [place] CONSTIPATION; Start 02/01/17 at 20: 30 Sodium Biphosphate/ Sodium Phosphate 133 ml 133 ml BID PRN [place] CONSTIPATION; Start 02/01/17 at 20:30 Metronidazole 100 ml @ 100 mls/hr Q8 IVPB Last administered on 02/20/17 05:19 ; Admin Dose 100 MLS/HR; Start 02/04/17 at 15:00 Meropenem (Merrem 500 Mg/ 100 ml (Pmx)) 100 ml @ 200 mls/hr Q8 IVPB Last administered on 02/20/17 05:19; Admin Dose 200 MLS/HR; Start 02/05/17 at 22:00 Acetaminophen (Tylenol Liquid) 650 mg Q4H PRN GTB PAIN AND OR ELEVATED TEMP Last administered on 02/20/17 01:22; Admin Dose 650 MG; Start 02/05/17 at 18:30 Salmeterol Xinafoate/ Fluticasone (Advair 250/50 Diskus) 1 inh BID INH Last administered on 02/12/17 09:03; Admin Dose 1 INH; Start 02/07/17 at 11:00; Status Future Hold IV Flush (NS 10 ml) 10 ml PRN PRN IV IV PROTOCOL; Start 02/07/17 at 14:30 Diphenhydramine HCl 25 mg 25 mg Q6H PRN IV itching ; Start 02/07/17 at 20:00 Ondansetron HCl/ Sodium Chloride (Zofran Inj/NS) 54 ml @ 216 mls/hr Q6H PRN IV NAUSEA AND/OR VOMITING; Start 02/09/17 at 11:30 Prednisone (Prednisone) 40 mg DAILY PO Last administered on 02/12/17 09:03; Admin Dose 40 MG; Start 02/11/17 at 09:00; Status Future Hold Lorazepam (Ativan) 1 mg Q2 PRN IV AGITATION/ANXIETY Last administered on 17:31; Admin Dose 1 MG; Start 02/10/17 at 17:00 Lorazepam (Ativan) 1 mg Q1HWA PRN IM AGITATION/ANXIETY; Start 02/10/17 at 19:00 Trimethobenzamide HCl 200 mg 200 mg Q6H PRN IM NAUSEA AND/OR VOMITING; Start at 19:30 Norepinephrine 16 mg/Dextrose 500 ml @ 1.87 mls/hr TITRATE IV ; Start 02/13/17 at 12:00; Status Future hold Propofol 100 ml @ 2.202 mls/ hr Q12H IV Last administered on 02/20/17 08:21; Admin Dose 15.414 MLS/HR; Start 02/13/17 at 10:00 Total Parenteral Nutrition (Tpn) 1,000 ml @ 50 mls/hr Q20H IV Last administered on 02/19/17 20:33; Admin Dose 50 MLS/HR; Start 02/14/17 at 12:00 Diagnostic Test (Pha) 1 ea 1 ea Q4 XX Last administered on 02/20/17 09:08; Admin Dose 1 EA; Start 02/14/17 at 17:00 Caspofungin/ Sodium Chloride (Cancidas/NS) 250 ml @ 250 mls/hr Q24H IVPB Last administered on 02/19/17 12:52; Admin Dose 250 MLS/HR; Start 02/16/17 at 12:00 Furosemide 20 mg 20 mg Q6 IV Last administered on 02/20/17 05:20; Admin Dose 20 MG; Start 02/18/17 at 00:00 Albumin Human 100 ml @ 100 mls/hr DAILY IV Last administered on 02/20/17 09:06 ; Admin Dose 100 MLS/HR; Start 02/19/17 at 09:00; Stop 02/21/17 at 09:59 Fentanyl 100 ml @ 2.5 mls/hr TITRATE IV Last administered on 02/20/17 04:45; Admin Dose 5 MLS/HR; Start 02/19/17 at 10:00 Vancomycin HCl/ Sodium Chloride (Vancocin/NS) 250 ml @ 83.333 mls/ hr Q12H IVPB Last administered on 02/20/17t 05:58; Admin Dose 83.333 MLS/HR; Start at 18:00 CAIT ELLIS MD February 20, 2017 09:18
--- NOTE | 2017-02-20 09:32 | CONS ---
Date/Time of Note Date/Time of Note DATE: 02/20/17 TIME: 09:30 Consult Date/Type/Reason Admit Date/Time Feb 01, 2017 at 03:10 Type of Consultation: Pulmonary ICU Ordering Provider: VINCE PADGETT Subjective Patient awake alert this morning for simple commands still has significant neuromuscular weakness Objective Vital Signs Date Time Temp Pulse Resp B/P Pulse Ox O2 Delivery O2 Flow Rate FiO2 02/20/17 08:00 92 02/20/17 06:00 20 105/63 96 Mechanical Ventilator 02/20/17 05:08 40 02/20/17 04:00 99.3 Intake and Output 02/19/17 02/19/17 02/20/17 15:00 23:00 07:00 Intake Total 1443.790 ml 1115.232 ml 929.161 ml Output Total 1195 ml 1910 ml 1220 ml Balance 248.790 ml -794.768 ml -290.839 ml Exam PHYSICAL EXAMINATION GENERAL chronically ill-appearing gentleman on mechanical ventilation comfortable at rest VITAL SIGNS: see below. HEENT: Pupils equal, round, and reactive to light. CARDIAC: S1, S2, tachycardia. CHEST: Diminished air entry bilaterally. ABDOMEN: Mildly distended. Distal bowel sounds no guarding or rebound EXTREMITIES: No cyanosis, clubbing edema +2 NEUROLOGIC: Generalized weakness Results/Medications Result Diagram: 02/20/17 0440 02/20/17 0440 Results 24 hrs Chest x-ray Mild pulmonary edema Laboratory Tests Test 02/19/17 12:58 02/19/17 17:17 02/19/17 20:35 02/20/17 00:35 Bedside Glucose 93 117 91 96 Test 02/20/17 04:40 02/20/17 05:18 02/20/17 07:00 02/20/17 09:08 White Blood Count 14.2 H Red Blood Count 2.63 L Hemoglobin 7.5 L Hematocrit 23.8 L Mean Corpuscular Volume 90.5 Mean Corpuscular Hemoglobin 28.5 L Mean Corpuscular Hemoglobin Concent 31.5 L Red Cell Distribution Width 15.1 H Platelet Count 306 Mean Platelet Volume 11.7 H Neutrophils % 85.1 H Lymphocytes % 4.7 L Monocytes % 5.6 Eosinophils % 2.1 Basophils % 0.2 Nucleated Red Blood Cells % 0.0 Neutrophils # 12.1 H Lymphocytes # 0.7 L Monocytes # 0.8 Eosinophils # 0.3 Basophils # 0.0 Nucleated Red Blood Cells # 0.0 Sodium Level 136 Potassium Level 3.9 Chloride Level 102 Carbon Dioxide Level 28 Anion Gap 10 Blood Urea Nitrogen 17 Creatinine 0.66 Glucose Level 103 Calcium Level 7.4 L Phosphorus Level 4.1 Magnesium Level 1.7 Bedside Glucose 116 99 Blood Gas Specimen Source Blood arterial Arterial Blood Date Drawn 02/20/2017 7:38:00 AM Arterial Blood pH (Temp corrected) 7.406 Arterial Blood pCO2 (Temp correct) 42.4 Arterial Blood pO2 (Temp corrected) 96.8 Arterial Blood HCO3 26.0 Arterial Blood Base Excess 1.2 Arterial Blood Oxygen Saturation 96.5 Raffy Test ACCEPTAB Arterial Blood Gas Puncture Site Right Radial Arterial Blood Carboxyhemoglobin 0.3 Arterial Blood Methemoglobin 0.5 Blood Gas A-a O2 Differential 139.6 H Oxyhemoglobin Percent 95.7 Total Hemoglobin 9.5 L Blood Gas Temperature 37.0 Blood Gas Respiration Rate 18.0 Blood Gas Actual Respiration Rate 18 Blood Gas Modality VENT - AC FiO2 40.0 Blood Gas Tidal Volume 550.0 Blood Gas Low PEEP Setting 5.0 Blood Gas Notified Whom DT Blood Gas Notified Time 02/20/2017 8:07:00 AM Medications Current Medications Hydromorphone HCl (Dilaudid) 1 mg Q4H PRN IV pain Last administered on 17:31; Admin Dose 1 MG; Start 02/01/17 at 03:30 Pantoprazole (Protonix Iv) 40 mg DAILY@06 IV Last administered on 02/20/17 05: 19; Admin Dose 40 MG; Start 02/01/17 at 06:00 Acetaminophen/ Hydrocodone Bitart ([place] (5/325)) 1 tab Q4H PRN PO PAIN LEVEL 4 -7 Last administered on 02/09/17 18:48; Admin Dose 1 TAB; Start 02/01/17 at 20: 30 Acetaminophen/ Hydrocodone Bitart ([place] (5/325)) 2 tab Q4H PRN PO PAIN LEVEL 7 -10; Start 02/01/17 at 20:30 Hydromorphone HCl (Dilaudid) 0.5 mg Q2 PRN IV PAIN Last administered on 23:52; Admin Dose 0.5 MG; Start 02/01/17 at 20:30 Hydromorphone HCl (Dilaudid) 1 mg Q2 PRN IV PAIN Last administered on 11:57; Admin Dose 1 MG; Start 02/01/17 at 20:30 Docusate Sodium (Colace) 100 mg BID PRN PO CONSTIPATION; Start 02/01/17 at 20: 30 Bisacodyl (Dulcolax Supp) 10 mg BID PRN [place] CONSTIPATION; Start 02/01/17 at 20: 30 Sodium Biphosphate/ Sodium Phosphate 133 ml 133 ml BID PRN [place] CONSTIPATION; Start 02/01/17 at 20:30 Metronidazole 100 ml @ 100 mls/hr Q8 IVPB Last administered on 02/20/17 05:19 ; Admin Dose 100 MLS/HR; Start 02/04/17 at 15:00 Meropenem (Merrem 500 Mg/ 100 ml (Pmx)) 100 ml @ 200 mls/hr Q8 IVPB Last administered on 02/20/17 05:19; Admin Dose 200 MLS/HR; Start 02/05/17 at 22:00 Acetaminophen (Tylenol Liquid) 650 mg Q4H PRN GTB PAIN AND OR ELEVATED TEMP Last administered on 02/20/17 01:22; Admin Dose 650 MG; Start 02/05/17 at 18:30 Salmeterol Xinafoate/ Fluticasone (Advair 250/50 Diskus) 1 inh BID INH Last administered on 02/12/17 09:03; Admin Dose 1 INH; Start 02/07/17 at 11:00; Status Future Hold IV Flush (NS 10 ml) 10 ml PRN PRN IV IV PROTOCOL; Start 02/07/17 at 14:30 Diphenhydramine HCl 25 mg 25 mg Q6H PRN IV itching ; Start 02/07/17 at 20:00 Ondansetron HCl/ Sodium Chloride (Zofran Inj/NS) 54 ml @ 216 mls/hr Q6H PRN IV NAUSEA AND/OR VOMITING; Start 02/09/17 at 11:30 Prednisone (Prednisone) 40 mg DAILY PO Last administered on 02/12/17 09:03; Admin Dose 40 MG; Start 02/11/17 at 09:00; Status Future Hold Lorazepam (Ativan) 1 mg Q2 PRN IV AGITATION/ANXIETY Last administered on 17:31; Admin Dose 1 MG; Start 02/10/17 at 17:00 Lorazepam (Ativan) 1 mg Q1HWA PRN IM AGITATION/ANXIETY; Start 02/10/17 at 19:00 Trimethobenzamide HCl 200 mg 200 mg Q6H PRN IM NAUSEA AND/OR VOMITING; Start at 19:30 Norepinephrine 16 mg/Dextrose 500 ml @ 1.87 mls/hr TITRATE IV ; Start 02/13/17 at 12:00; Status Future hold Propofol 100 ml @ 2.202 mls/ hr Q12H IV Last administered on 02/20/17 08:21; Admin Dose 15.414 MLS/HR; Start 02/13/17 at 10:00 Total Parenteral Nutrition (Tpn) 1,000 ml @ 50 mls/hr Q20H IV Last administered on 02/19/17 20:33; Admin Dose 50 MLS/HR; Start 02/14/17 at 12:00 Diagnostic Test (Pha) 1 ea 1 ea Q4 XX Last administered on 02/20/17 09:08; Admin Dose 1 EA; Start 02/14/17 at 17:00 Caspofungin/ Sodium Chloride (Cancidas/NS) 250 ml @ 250 mls/hr Q24H IVPB Last administered on 02/19/17 12:52; Admin Dose 250 MLS/HR; Start 02/16/17 at 12:00 Furosemide 20 mg 20 mg Q6 IV Last administered on 02/20/17 05:20; Admin Dose 20 MG; Start 02/18/17 at 00:00 Albumin Human 100 ml @ 100 mls/hr DAILY IV Last administered on 02/20/17 09:06 ; Admin Dose 100 MLS/HR; Start 02/19/17 at 09:00; Stop 02/21/17 at 09:59 Fentanyl 100 ml @ 2.5 mls/hr TITRATE IV Last administered on 02/20/17 04:45; Admin Dose 5 MLS/HR; Start 02/19/17 at 10:00 Vancomycin HCl/ Sodium Chloride (Vancocin/NS) 250 ml @ 83.333 mls/ hr Q12H IVPB Last administered on 02/20/17 05:58; Admin Dose 83.333 MLS/HR; Start at 18:00 Assessment/Plan Chief Complaint/Hosp Course Assessment 1. Crohn's disease with perforation of sigmoid colon and sepsis status post arthroscopic sigmoid colectomy and end colostomy with lysis of adhesions 2. Resolved metabolic acidosis with septic shock 3. Improved electrolyte imbalance 4. Hypoxemic respiratory failure possibly underlying pleural effusions with compressive atelectasis resulting in failure to wean from mechanical ventilation 5. Thrombocytopenia improved 6. Postop anemia Plan 1. Add fentanyl to sedatives, decrease propofol as tolerated 2. CPAP trial if neurologically more alert decrease propofol 3. Continue surgical wound care 4. Continue broad-spectrum antibiotic coverage 5. Feeding via TPN and nasogastric tube 6. DVT GI prophylaxis Disposition Continue ICU care Problems: RAMON DOUGLAS MD, FCCP February 20, 2017 09:32
--- NOTE | 2017-02-20 09:38 | RADRPT ---
PROCEDURE: XR Chest 1 View. CLINICAL INDICATION: Shortness of breath TECHNIQUE: AP view of the chest was obtained. COMPARISON: Yesterday FINDINGS: The cardiomediastinal silhouette is within normal limits. Endotracheal and nasogastric tubes are sta ble and appear in grossly appropriate location. Left lower lobe infiltrates and small left pleural effusion are stable. Patchy right basilar infiltrates are stable. Right-sided PICC line is unchange d. The osseous structures are stable. IMPRESSION: Stable left lower lobe infiltrates, combined small pleural effusion. Stable right basilar infiltrates. RPTAT: AA .Schuyler Ugalde MD, Date Time Electronically viewed and signed by .Scuhyler Ugalde MD, on 02/20/2017 09:38 .P/
[2017-02-20 12:16] LABS: HEMATOCRIT 24.3 % (42.0-52.0); HEMOGLOBIN 7.6 g/dl (14.0-18.0)
[2017-02-20] MEDS: CASPOFUNGIN 50 MG in SOD CHLORIDE 0.9% 250 ML IVPB SCH (12:42)
--- NOTE | 2017-02-20 13:04 | CONS ---
Date/Time of Note Date/Time of Note DATE: 02/20/17 TIME: 13:02 Assessment/Plan Assessment/Plan Chief Complaint/Hosp Course SUBJECTIVE: No acute changes overnight. The patien spiked fever today of 102. He is awake, comfortable, on vent and in no distress. MICROBIOLOGY: Cultures remain negative. INDWELLINGS: Endotracheal tube, NG tube, Zeng catheter, left-sided abdominal drainage catheter. DIAGNOSTICS: Chest x-ray revealed unchanged atelectasis or pneumonia at lung bases. ANTIMICROBIALS: 1. Vancomycin. 2. Cancidas. 3. Meropenem. 4. Flagyl. PHYSICAL EXAMINATION: GENERAL: This is a well-developed, middle-aged white man who is awake, in no distress. HEENT: Head atraumatic, normocephalic. Sclerae anicteric. Buccal mucosa dry. NECK: Supple. CHEST: Rise symmetrical. Breath sounds clear, diminished to bases. HEART: S1, S2. ABDOMEN: Soft. Mid abdominal dressing to wound VAC. EXTREMITIES: Without cyanosis. Bilateral edema, dependent. SKIN: Positive for anasarca. ASSESSMENT: 1. Ongoing sepsis with on/off fevers and leukocytosis. 2. Healthcare-associated pneumonia. 3. History of Crohn's disease. 4. Status post perforated viscus repair on 02/01/2017 complicated by intra- abdominal abscess, status post drainage on 02/14/2017. 5. Status post exploration of the abdomen with abdominal lavage on 02/15/2017. 6. Anemia. PLAN: The patient remains hemodynamically stable. Given ongoing fevers recommend repeat CT abdomen, continue abx, weaning trials per pulmonary, GI/ surgical rec-s [facility] staff Problems: Consultation Date/Type/Reason Admit Date/Time Feb 01, 2017 at 03:10 Initial Consult Date 02/02/17 Type of Consultation: ID Referring Provider: VINCE PADGETT Exam/Review of Systems Vital Signs Vitals Vital Signs Date Time Temp Pulse Resp B/P Pulse Ox O2 Delivery O2 Flow Rate FiO2 02/20/17 12:00 107 02/20/17 10:55 18 98 40 02/20/17 09:00 110/72 Mechanical Ventilator 02/20/17 07:30 98.8 Intake and Output 02/19/17 02/19/17 02/20/17 15:00 23:00 07:00 Intake Total 1443.790 ml 1115.232 ml 969.161 ml Output Total 1195 ml 1910 ml 1470 ml Balance 248.790 ml -794.768 ml -500.839 ml Results Result Diagram: 02/20/17 1145 02/20/17 0440 Results 24 hrs Laboratory Tests Test 02/19/17 17:17 02/19/17 20:35 02/20/17 00:35 02/20/17 04:40 Bedside Glucose 117 91 96 White Blood Count 14.2 H Red Blood Count 2.63 L Hemoglobin 7.5 L Hematocrit 23.8 L Mean Corpuscular Volume 90.5 Mean Corpuscular Hemoglobin 28.5 L Mean Corpuscular Hemoglobin Concent 31.5 L Red Cell Distribution Width 15.1 H Platelet Count 306 Mean Platelet Volume 11.7 H Neutrophils % 85.1 H Lymphocytes % 4.7 L Monocytes % 5.6 Eosinophils % 2.1 Basophils % 0.2 Nucleated Red Blood Cells % 0.0 Neutrophils # 12.1 H Lymphocytes # 0.7 L Monocytes # 0.8 Eosinophils # 0.3 Basophils # 0.0 Nucleated Red Blood Cells # 0.0 Sodium Level 136 Potassium Level 3.9 Chloride Level 102 Carbon Dioxide Level 28 Anion Gap 10 Blood Urea Nitrogen 17 Creatinine 0.66 Glucose Level 103 Calcium Level 7.4 L Phosphorus Level 4.1 Magnesium Level 1.7 Test 02/20/17 05:18 02/20/17 07:00 02/20/17 09:08 02/20/17 11:45 Bedside Glucose 116 99 Blood Gas Specimen Source Blood arterial Arterial Blood Date Drawn 02/20/2017 7:38:00 AM Arterial Blood pH (Temp corrected) 7.406 Arterial Blood pCO2 (Temp correct) 42.4 Arterial Blood pO2 (Temp corrected) 96.8 Arterial Blood HCO3 26.0 Arterial Blood Base Excess 1.2 Arterial Blood Oxygen Saturation 96.5 Raffy Test ACCEPTAB Arterial Blood Gas Puncture Site Right Radial Arterial Blood Carboxyhemoglobin 0.3 Arterial Blood Methemoglobin 0.5 Blood Gas A-a O2 Differential 139.6 H Oxyhemoglobin Percent 95.7 Total Hemoglobin 9.5 L Blood Gas Temperature 37.0 Blood Gas Respiration Rate 18.0 Blood Gas Actual Respiration Rate 18 Blood Gas Modality VENT - AC FiO2 40.0 Blood Gas Tidal Volume 550.0 Blood Gas Low PEEP Setting 5.0 Blood Gas Notified Whom DT Blood Gas Notified Time 02/20/2017 8:07:00 AM Hemoglobin 7.6 L Hematocrit 24.3 L Medications Medications Current Medications Hydromorphone HCl (Dilaudid) 1 mg Q4H PRN IV pain Last administered on 17:31; Admin Dose 1 MG; Start 02/01/17 at 03:30 Pantoprazole (Protonix Iv) 40 mg DAILY@06 IV Last administered on 02/20/17 05: 19; Admin Dose 40 MG; Start 02/01/17 at 06:00 Acetaminophen/ Hydrocodone Bitart ([place] (5/325)) 1 tab Q4H PRN PO PAIN LEVEL 4 -7 Last administered on 02/09/17 18:48; Admin Dose 1 TAB; Start 02/01/17 at 20: 30 Acetaminophen/ Hydrocodone Bitart ([place] (5/325)) 2 tab Q4H PRN PO PAIN LEVEL 7 -10; Start 02/01/17 at 20:30 Hydromorphone HCl (Dilaudid) 0.5 mg Q2 PRN IV PAIN Last administered on 23:52; Admin Dose 0.5 MG; Start 02/01/17 at 20:30 Hydromorphone HCl (Dilaudid) 1 mg Q2 PRN IV PAIN Last administered on 11:57; Admin Dose 1 MG; Start 02/01/17 at 20:30 Docusate Sodium (Colace) 100 mg BID PRN PO CONSTIPATION; Start 02/01/17 at 20: 30 Bisacodyl (Dulcolax Supp) 10 mg BID PRN [place] CONSTIPATION; Start 02/01/17 at 20: 30 Sodium Biphosphate/ Sodium Phosphate 133 ml 133 ml BID PRN [place] CONSTIPATION; Start 02/01/17 at 20:30 Metronidazole 100 ml @ 100 mls/hr Q8 IVPB Last administered on 02/20/17 05:19 ; Admin Dose 100 MLS/HR; Start 02/04/17 at 15:00 Meropenem (Merrem 500 Mg/ 100 ml (Pmx)) 100 ml @ 200 mls/hr Q8 IVPB Last administered on 02/20/17 05:19; Admin Dose 200 MLS/HR; Start 02/05/17 at 22:00 Acetaminophen (Tylenol Liquid) 650 mg Q4H PRN GTB PAIN AND OR ELEVATED TEMP Last administered on 02/20/17 01:22; Admin Dose 650 MG; Start 02/05/17 at 18:30 Salmeterol Xinafoate/ Fluticasone (Advair 250/50 Diskus) 1 inh BID INH Last administered on 02/12/17 09:03; Admin Dose 1 INH; Start 02/07/17 at 11:00; Status Future Hold IV Flush (NS 10 ml) 10 ml PRN PRN IV IV PROTOCOL; Start 02/07/17 at 14:30 Diphenhydramine HCl 25 mg 25 mg Q6H PRN IV itching ; Start 02/07/17 at 20:00 Ondansetron HCl/ Sodium Chloride (Zofran Inj/NS) 54 ml @ 216 mls/hr Q6H PRN IV NAUSEA AND/OR VOMITING; Start 02/09/17 at 11:30 Prednisone (Prednisone) 40 mg DAILY PO Last administered on 02/12/17 09:03; Admin Dose 40 MG; Start 02/11/17 at 09:00; Status Future Hold Lorazepam (Ativan) 1 mg Q2 PRN IV AGITATION/ANXIETY Last administered on 17:31; Admin Dose 1 MG; Start 02/10/17 at 17:00 Lorazepam (Ativan) 1 mg Q1HWA PRN IM AGITATION/ANXIETY; Start 02/10/17 at 19:00 Trimethobenzamide HCl 200 mg 200 mg Q6H PRN IM NAUSEA AND/OR VOMITING; Start at 19:30 Norepinephrine 16 mg/Dextrose 500 ml @ 1.87 mls/hr TITRATE IV ; Start 02/13/17 at 12:00; Status Future hold Total Parenteral Nutrition (Tpn) 1,000 ml @ 50 mls/hr Q20H IV Last administered on 02/19/17 20:33; Admin Dose 50 MLS/HR; Start 02/14/17 at 12:00 Diagnostic Test (Pha) 1 ea 1 ea Q4 XX Last administered on 02/20/17 09:08; Admin Dose 1 EA; Start 02/14/17 at 17:00 Caspofungin/ Sodium Chloride (Cancidas/NS) 250 ml @ 250 mls/hr Q24H IVPB Last administered on 02/20/17 12:42; Admin Dose 250 MLS/HR; Start 02/16/17 at 12:00 Furosemide 20 mg 20 mg Q6 IV Last administered on 02/20/17 12:42; Admin Dose 20 MG; Start 02/18/17 at 00:00 Albumin Human 100 ml @ 100 mls/hr DAILY IV Last administered on 02/20/17 09:06 ; Admin Dose 100 MLS/HR; Start 02/19/17 at 09:00; Stop 02/21/17 at 09:59 Vancomycin HCl/ Sodium Chloride (Vancocin/NS) 250 ml @ 83.333 mls/ hr Q12H IVPB Last administered on 02/20/17 05:58; Admin Dose 83.333 MLS/HR; Start at 18:00 THOMAS ELLIS NP February 20, 2017 13:04
[2017-02-20 14:41] LABS: AADO2 Arterial 148.3 mmHg (7.0-24.0); Allen Test ACCEPTAB; Arterial Base Excess 1.8 mmol/L (-3.0-3); Arterial COHb 0.3 % (0.0-3.0); Arterial Fraction of Oxyhgb 95.3 % (93.0-99.0); Arterial HCO3 26.6 mmol/L (22.0-26.0); Arterial MetHb 0.3 % (0.0-1.5); Arterial Total Hemglobin 10.1 g/dl (12.0-18.0); Blood Gas PS 10; MODE VENT - CPAP
--- NOTE | 2017-02-20 15:54 | PN ---
Date/Time of Note Date/Time of Note DATE: 02/20/17 TIME: 15:51 Assessment/Plan Lines/Catheters IV Catheter Type (from Nrs): Peripheral IV Zeng in Place (from Nrs): Yes Assessment/Plan Assessment/Plan [facility] Progress Note Date of Service: 02/20/17 Today's Impression & Plan: Overall stable and seems improved. Extubated earlier. So far doing well from a pulmonary standpoint. No obvious issues with the wound and abd remains benign. No indication for acute surgical intervention. Remains high risk for complication given perforated colon in the setting of uncontrolled Crohn's. Recovery will take extra time with likely need for rehab. D/w team and updated patient's father over the phone. With above assessment, I've recommended the following for today: 1. Cont current cares in ICU 2. F/u on cultures 3. Cont TPN 4. Treat ETOH withdrawal 5. Cont gentle diuresis to BMP < 200 6. Social work and case management to please start working on possible rehab vs. home health nurse set up 7. Increase activity 8. Increase ICS 9. Cont broad spec antimicrobials 10. Labs in am 11. Cont current wound care with wound vac 12. Increase gastric feeds to goal rate as tolerated 13. SBFT testing on Wednesday and possible d/c NG and start of diet afterwards 14. D/c L abdominal drain on Wednesday Thank you again for your great care of this very pleasant patient and wonderful family. If there are any questions, please feel free to call me at [phone]. TOTAL VISIT TIME: 20 minutes of which more than half was spent in [id number] discussion with the patient, possibly including family, as well as coordination of care between multiple physicians and providers. Disclaimer: Inadvertent spelling or grammatical errors are likely due to EHR/ dictation software use and do not reflect on the overall quality of patient care. Updated Clinical Summary: A very pleasant 46-year-old gentleman with history of Crohn's disease as well as prior surgery for anal fistula approximately 5 years ago, and a torn meniscus repair on the left knee, presenting with abdominal pain associated with a few weeks' duration of diarrhea. S/p an otherwise uncomplicated diagnostic laparoscopy was converted first to hand assist and then to open exploration when perforated sigmoid colon was found and it was resected with a Deena type procedure and end colostomy as well as core needle liver biopsy, segment 5, due to presence of fatty liver disease, lysis of adhesions, and abdominal lavage on 02/01/17. Failed to wean off the vent through 02/06/17. PE was evaluated 02/07/[address] angio and no evidence found. CT abd/pelvis also did not show actionable findings (no abscess; bowel thickening somewhat expected). Extubated 02/07/17. W[employer] OPERATOR called early am 02/13/17 with a few minutes coding, requiring intubation and transfer to ICU. Fortunately, mentally appears to be intact and not on pressors. Lactic acid and CO2 normal with benign appearing abd and viable ostomy. Complicated by fascia dehiscence. S/p exploration of abdomen through recent laparotomy, primary closure of fascia and abdominal lavage on 02/15/17. COMORBIDITIES: 1. Crohn disease with perforation of sigmoid colon and sepsis. S/p an otherwise uncomplicated diagnostic laparoscopy was converted first to hand assist and then to open exploration when perforated sigmoid colon was found and it was resected with a Deena type procedure and end colostomy as well as core needle liver biopsy, segment 5, due to presence of fatty liver disease, lysis of adhesions, and abdominal lavage on 02/01/17. Complicated by respiratory failure, return trip to ICU and fascia dehiscence. S/p exploration of abdomen through recent laparotomy, primary closure of fascia and abdominal lavage on 02/15. 2. Repair of a fistula approximately 5 years ago. 3. Torn meniscus on the left knee status post repair. Subjective: No major events overnight; no major complaints; mild SOB, but no CP; + BM Objective: Vitals: See below Exam: GENERAL: On exam, the patient was laying in bed and appeared to be comfortable and in no acute distress. ABDOMEN: Soft, nontender and nondistended. Incision wound vac dressings are clean without any evidence of obvious erythema, edema, discharge, or hernia. Surgery drain site clean. Ostomy pink and viable; some air and stool in the bag. There are no peritoneal signs or guarding. SKIN: Skin appears to be pink and feels warm to touch. NEUROLOGIC: Patient is awake, alert and follows commands appropriately. Exam/Review of Systems Vital Signs Vitals Vital Signs Date Time Temp Pulse Resp B/P Pulse Ox O2 Delivery O2 Flow Rate FiO2 02/20/17 15:17 95 3.0 02/20/17 12:00 107 02/20/17 10:55 18 40 02/20/17 09:00 110/72 Mechanical Ventilator 02/20/17 07:30 98.8 Intake and Output 02/19/17 02/19/17 02/20/17 15:00 23:00 07:00 Intake Total 1443.790 ml 1115.232 ml 969.161 ml Output Total 1195 ml 1910 ml 1470 ml Balance 248.790 ml -794.768 ml -500.839 ml Results Result Diagram: 02/20/17 1145 02/20/17 0440 TI HILTON M.D. February 20, 2017 15:54
[2017-02-20] MEDS: TPN 1,000 ML IV SCH (18:08)
--- NOTE | 2017-02-20 18:24 | PN ---
Date/Time of Note Date/Time of Note DATE: 02/20/17 TIME: 929 Assessment/Plan VTE Prophylaxis VTE Prophylaxis Intervention: heparin Lines/Catheters IV Catheter Type (from Nrs): Peripheral IV Urinary Cath still in place: Yes Reason Cath still needed: other (indicate) Assessment/Plan Assessment/Plan IMPRESSION 1. Perforated sigmoid colon 2/2 Severe Crohn's colitis * S/p Urgent Open Cronin's procedure with end colostomy, liver biopsy and abdominal lavage 02/01/17P * S/p post operative paracolic abscess drained via CT 02/14/[address] * S/p Exploration of abdomen through recent laparotomy site with closure of fascia done 02/15/17 for Fascia dehiscence 2. Recurrent Resp failure: Extubated then reintubated 02/13: currently vent dependent 3. Exacerbation of Crohn's disease with acute colitis and diarrhea Cultures growing ecoli / proteus / enterococcus 4. Multifocal PNA + Mook Pleural effusions Effusions likely hydrostatic from hypoalbuminemia 5. Severe Sepsis with lactic acidosis 2/2 severe colitis / PNA 6. S/p Systemic shock (hypovolemic +septic) 7. TPN therapy for low prealbumin + tube feeds 8. Hx of heavy alcohol and tobacco use just until admission 9. Probable underlying COPD and Cirrhosis based on hx which explains hypoalbuminemia and anasarca 10. Severe recurrent anemia likely 2/2 occult blood loss from multiple sources : PRN transfusions 11. Hypomagnesemia PLAN: * Continue current ICU care and Vent weaning / CPAP trials * Continue post Op wound care/ electrolyte management * Cut dose of TPN in 1/2, d/c tomorrow if patient continues to tolerate tube feeds * Continue Wound care and wound Vac * ID managing abx and antifungal * Replace electrolytes as needed * Continue albumin therapy * PRN pain control/ antiemetics/ antipyretics/ supportive care * Low dose heparin for prophylaxis CRITICAL CARE TIME: >35 mins Subjective 24 Hr Interval Summary Free Text/Dictation CPAP trials Nursing reports no acute overnight events. Patient seen and examined. Exam/Review of Systems Vital Signs Vitals Vital Signs Date Time Temp Pulse Resp B/P Pulse Ox O2 Delivery O2 Flow Rate FiO2 02/20/17 16:00 111 02/20/17 15:17 95 3.0 02/20/17 10:55 18 40 02/20/17 09:00 110/72 Mechanical Ventilator 02/20/17 07:30 98.8 Intake and Output 02/19/17 02/19/17 02/20/17 15:00 23:00 07:00 Intake Total 1443.790 ml 1115.232 ml 969.161 ml Output Total 1195 ml 1910 ml 1470 ml Balance 248.790 ml -794.768 ml -500.839 ml Exam Constitutional: other (arousable, able to shake hands and move both upper extremities) Head: normocephalic Eyes: PERRL, icteric ENMT: intubated Respiratory: crackles/rales (coarse), diminished breath sounds, No labored breathing Cardiovascular: nl pulses, regular rate and rhythm Gastrointestinal: bowel sounds, distended (mildly), other (surgical wound clean and non oozing with mid line deficit covered with wound vac, Colostomy with dark green stool), soft Genitourinary - Male: other (still with scrotal and penile edema) Extremities: pitting edema in all extremities (+++) Neurological: lethargic, No unresponsive Skin: other (icteric) Results Result Diagram: 02/20/17 1145 02/20/17 0440 Results 24 hrs Laboratory Tests Test 02/19/17 20:35 02/20/17 00:35 02/20/17 04:40 02/20/17 05:18 Bedside Glucose 91 96 116 White Blood Count 14.2 H Red Blood Count 2.63 L Hemoglobin 7.5 L Hematocrit 23.8 L Mean Corpuscular Volume 90.5 Mean Corpuscular Hemoglobin 28.5 L Mean Corpuscular Hemoglobin Concent 31.5 L Red Cell Distribution Width 15.1 H Platelet Count 306 Mean Platelet Volume 11.7 H Neutrophils % 85.1 H Lymphocytes % 4.7 L Monocytes % 5.6 Eosinophils % 2.1 Basophils % 0.2 Nucleated Red Blood Cells % 0.0 Neutrophils # 12.1 H Lymphocytes # 0.7 L Monocytes # 0.8 Eosinophils # 0.3 Basophils # 0.0 Nucleated Red Blood Cells # 0.0 Sodium Level 136 Potassium Level 3.9 Chloride Level 102 Carbon Dioxide Level 28 Anion Gap 10 Blood Urea Nitrogen 17 Creatinine 0.66 Glucose Level 103 Calcium Level 7.4 L Phosphorus Level 4.1 Magnesium Level 1.7 Test 02/20/17 07:00 02/20/17 09:08 02/20/17 11:00 02/20/17 11:45 Blood Gas Specimen Source Blood arterial Blood arterial Arterial Blood Date Drawn 02/20/2017 7:38:00 AM 02/20/2017 11:10:00 AM Arterial Blood pH (Temp corrected) 7.406 7.415 Arterial Blood pCO2 (Temp correct) 42.4 42.4 Arterial Blood pO2 (Temp corrected) 96.8 88.1 Arterial Blood HCO3 26.0 26.6 H Arterial Blood Base Excess 1.2 1.8 Arterial Blood Oxygen Saturation 96.5 95.9 Raffy Test ACCEPTAB ACCEPTAB Arterial Blood Gas Puncture Site Right Radial Right Radial Arterial Blood Carboxyhemoglobin 0.3 0.3 Arterial Blood Methemoglobin 0.5 0.3 Blood Gas A-a O2 Differential 139.6 H 148.3 H Oxyhemoglobin Percent 95.7 95.3 Total Hemoglobin 9.5 L 10.1 L Blood Gas Temperature 37.0 37.0 Blood Gas Respiration Rate 18.0 Blood Gas Actual Respiration Rate 18 20 Blood Gas Modality VENT - AC VENT - CPAP FiO2 40.0 40.0 Blood Gas Tidal Volume 550.0 Blood Gas Low PEEP Setting 5.0 Blood Gas Notified Whom DT TM Blood Gas Notified Time 02/20/2017 8:07:00 AM 02/20/2017 11:17:00 AM Bedside Glucose 99 Blood Gas High PEEP Setting 5.0 Blood Gas Pressure Support 10 Hemoglobin 7.6 L Hematocrit 24.3 L Test 02/20/17 13:19 02/20/17 18:05 Bedside Glucose 99 105 Medications Medications Current Medications Hydromorphone HCl (Dilaudid) 1 mg Q4H PRN IV pain Last administered on 17:31; Admin Dose 1 MG; Start 02/01/17 at 03:30 Pantoprazole (Protonix Iv) 40 mg DAILY@06 IV Last administered on 02/20/17 05: 19; Admin Dose 40 MG; Start 02/01/17 at 06:00 Acetaminophen/ Hydrocodone Bitart ([place] (5/325)) 1 tab Q4H PRN PO PAIN LEVEL 4 -7 Last administered on 02/09/17 18:48; Admin Dose 1 TAB; Start 02/01/17 at 20: 30 Acetaminophen/ Hydrocodone Bitart ([place] (5/325)) 2 tab Q4H PRN PO PAIN LEVEL 7 -10; Start 02/01/17 at 20:30 Hydromorphone HCl (Dilaudid) 0.5 mg Q2 PRN IV PAIN Last administered on 23:52; Admin Dose 0.5 MG; Start 02/01/17 at 20:30 Hydromorphone HCl (Dilaudid) 1 mg Q2 PRN IV PAIN Last administered on 11:57; Admin Dose 1 MG; Start 02/01/17 at 20:30 Docusate Sodium (Colace) 100 mg BID PRN PO CONSTIPATION; Start 02/01/17 at 20: 30 Bisacodyl (Dulcolax Supp) 10 mg BID PRN [place] CONSTIPATION; Start 02/01/17 at 20: 30 Sodium Biphosphate/ Sodium Phosphate 133 ml 133 ml BID PRN [place] CONSTIPATION; Start 02/01/17 at 20:30 Metronidazole 100 ml @ 100 mls/hr Q8 IVPB Last administered on 02/20/17 13:23 ; Admin Dose 100 MLS/HR; Start 02/04/17 at 15:00 Meropenem (Merrem 500 Mg/ 100 ml (Pmx)) 100 ml @ 200 mls/hr Q8 IVPB Last administered on 02/20/17 13:23; Admin Dose 200 MLS/HR; Start 02/05/17 at 22:00 Acetaminophen (Tylenol Liquid) 650 mg Q4H PRN GTB PAIN AND OR ELEVATED TEMP Last administered on 02/20/17 01:22; Admin Dose 650 MG; Start 02/05/17 at 18:30 Salmeterol Xinafoate/ Fluticasone (Advair 250/50 Diskus) 1 inh BID INH Last administered on 02/12/17 09:03; Admin Dose 1 INH; Start 02/07/17 at 11:00; Status Future Hold IV Flush (NS 10 ml) 10 ml PRN PRN IV IV PROTOCOL; Start 02/07/17 at 14:30 Diphenhydramine HCl 25 mg 25 mg Q6H PRN IV itching ; Start 02/07/17 at 20:00 Ondansetron HCl/ Sodium Chloride (Zofran Inj/NS) 54 ml @ 216 mls/hr Q6H PRN IV NAUSEA AND/OR VOMITING; Start 02/09/17 at 11:30 Prednisone (Prednisone) 40 mg DAILY PO Last administered on 02/12/17 09:03; Admin Dose 40 MG; Start 02/11/17 at 09:00; Status Future Hold Lorazepam (Ativan) 1 mg Q2 PRN IV AGITATION/ANXIETY Last administered on 17:31; Admin Dose 1 MG; Start 02/10/17 at 17:00 Lorazepam (Ativan) 1 mg Q1HWA PRN IM AGITATION/ANXIETY; Start 02/10/17 at 19:00 Trimethobenzamide HCl 200 mg 200 mg Q6H PRN IM NAUSEA AND/OR VOMITING; Start at 19:30 Norepinephrine 16 mg/Dextrose 500 ml @ 1.87 mls/hr TITRATE IV ; Start 02/13/17 at 12:00; Status Future hold Total Parenteral Nutrition (Tpn) 1,000 ml @ 0 mls/hr Q20H IV Last administered on 02/20/17 18:08; Admin Dose 20 MLS/HR; Start 02/14/17 at 12:00 Diagnostic Test (Pha) 1 ea 1 ea Q4 XX Last administered on 02/20/17 17:00; Admin Dose 1 EA; Start 02/14/17 at 17:00 Caspofungin/ Sodium Chloride (Cancidas/NS) 250 ml @ 250 mls/hr Q24H IVPB Last administered on 02/20/17 12:42; Admin Dose 250 MLS/HR; Start 02/16/17 at 12:00 Furosemide 20 mg 20 mg Q6 IV Last administered on 02/20/17 18:07; Admin Dose 20 MG; Start 02/18/17 at 00:00 Albumin Human 100 ml @ 100 mls/hr DAILY IV Last administered on 02/20/17 09:06 ; Admin Dose 100 MLS/HR; Start 02/19/17 at 09:00; Stop 02/21/17 at 09:59 Vancomycin HCl/ Sodium Chloride (Vancocin/NS) 250 ml @ 83.333 mls/ hr Q12H IVPB Last administered on 02/20/17 18:07; Admin Dose 83.333 MLS/HR; Start at 18:00 Miscellaneous Information (*Rx Drug Level Order Reminder*) VANCOMYCIN TROUGH 02/21 AT 0500 ONCE ONCE XX ; Start 02/21/17 at 05:00; Stop 02/21/17 at 05:01 VINCE PADGETT February 20, 2017 18:24
[2017-02-20] MEDS ORDERED: DOCUSATE SODIUM 100 MG CAP PO SCH (21:00)
[2017-02-20] MEDS: DOCUSATE SODIUM 10 MG/ML (10ML CUP) NGT SCH ×2 (21:17→21:32)
[2017-02-21] VITALS (24 sets, daily range): BP systolic 104–119; BP diastolic 62–90; PULSE 97–113; RESP 16–38
[2017-02-21] MEDS: FUROSEMIDE 20 MG INJ IV SCH ×4 (00:15→17:56)
[2017-02-21] MEDS: ACCU-CHEK XX SCH ×6 (00:21→20:47)
[2017-02-21 05:08] LABS: ADD SCAN DIFF NO
[2017-02-21 05:13] LABS: BASOPHILS % 0.2 % (0.0-2.0); EOSINOPHILS # 0.3 10^3/ul (0.0-0.5); HEMATOCRIT 22.7 % (42.0-52.0); HEMOGLOBIN 7.3 g/dl (14.0-18.0); LYMPHOCYTES # 0.6 10^3/ul (0.8-2.9); LYMPHOCYTES % 4.5 % (15.0-51.0); MEAN CORPUSCULAR HEMOGLOBIN 28.6 pg (29.0-33.0); MEAN CORPUSCULAR HGB CONC 32.2 g/dl (32.0-37.0); MEAN PLATELET VOLUME 11.2 fl (7.4-10.4); MONOCYTES % 6.9 % (0.0-11.0); NEUTROPHIL # 11.8 10^3/ul (1.6-7.5); NEUTROPHILS % 84.5 % (39.0-77.0); PLATELET COUNT 326 10^3/UL (140-415); RED BLOOD COUNT 2.55 10^6/ul (4.70-6.10); RED CELL DISTRIBUTION WIDTH 14.5 % (11.5-14.5); WHITE BLOOD COUNT 13.9 10^3/ul (4.8-10.8)
[2017-02-21 05:25] LABS: POTASSIUM 3.4 mmol/L (3.5-5.1)
[2017-02-21 05:27] LABS: CREATININE 0.59 mg/dl (0.61-1.24)
[2017-02-21 05:28] LABS: PHOSPHORUS 4.3 mg/dl (2.5-4.9)
[2017-02-21 05:29] LABS: CALCIUM 7.6 mg/dl (8.4-10.2); MAGNESIUM 1.3 mg/dl (1.7-2.5)
[2017-02-21] MEDS: PANTOPRAZOLE 40 MG INJ IV SCH (05:30)
[2017-02-21] MEDS: MEROPENEM 500 MG/100 ML (PMX) 100 ML IVPB SCH ×3 (05:30→22:08)
[2017-02-21] MEDS: metroNIDAZOLE 500 MG/NS (PMX) 100 ML IVPB SCH ×3 (06:14→22:08)
--- NOTE | 2017-02-21 08:22 | CONS ---
Date/Time of Note Date/Time of Note DATE: 02/21/17 TIME: 08:21 Assessment/Plan Assessment/Plan Additional Assessment/Plan Perforated sigmoid colon * Laparoscopic exploration,open sigmoid colectomy with Deena end colostomy with liver biopsy segment V h/o Crohn's disease Thrombocytopenia Liver Cirrhosis Anemia Plan: Continue present management Will reevaluate for Crohn's disease once recovered from surgery Monitor hemoglobin every 8 hours, transfuse 1 unit for hemoglobin less than 7.5 and 2 units for hemoglobin less than 7.0 Further recommendations depend on clinical course Pt seen in collaboration with Dr. Jackson Consultation Date/Type/Reason Admit Date/Time Feb 01, 2017 at 03:10 Initial Consult Date 02/02/17 Type of Consultation: GI Referring Provider: VINCE PADGETT 24 HR Interval Summary Free Text/Dictation Successfully extubated yesterday Tube feed with minimal residual Exam/Review of Systems Vital Signs Vitals Vital Signs Date Time Temp Pulse Resp B/P Pulse Ox O2 Delivery O2 Flow Rate FiO2 02/21/17 07:00 109 35 118/70 91 Nasal Cannula 3.0 02/21/17 04:00 98.5 02/20/17 10:55 40 Intake and Output 02/20/17 02/20/17 02/21/17 15:00 23:00 07:00 Intake Total 930.414 ml 1330.00 ml 840 ml Output Total 1650 ml 1440 ml 1425 ml Balance -719.586 ml -110.00 ml -585 ml Exam Constitutional: frail Eyes: nl sclera Neck: non-tender, supple Respiratory: intubated Cardiovascular: nl pulses, regular rate and rhythm Gastrointestinal: bowel sounds, distended, non-tender, other (colostomy ), soft Musculoskeletal: nl extremities to inspection Extremities: normal pulses Skin: rash or lesions Results Result Diagram: 02/21/17 0500 02/21/17 0500 Results 24 hrs Laboratory Tests Test 02/20/17 09:08 02/20/17 11:00 02/20/17 11:45 02/20/17 13:19 Bedside Glucose 99 99 Blood Gas Specimen Source Blood arterial Arterial Blood Date Drawn 02/20/2017 11:10:00 AM Arterial Blood pH (Temp corrected) 7.415 Arterial Blood pCO2 (Temp correct) 42.4 Arterial Blood pO2 (Temp corrected) 88.1 Arterial Blood HCO3 26.6 H Arterial Blood Base Excess 1.8 Arterial Blood Oxygen Saturation 95.9 Raffy Test ACCEPTAB Arterial Blood Gas Puncture Site Right Radial Arterial Blood Carboxyhemoglobin 0.3 Arterial Blood Methemoglobin 0.3 Blood Gas A-a O2 Differential 148.3 H Oxyhemoglobin Percent 95.3 Total Hemoglobin 10.1 L Blood Gas Temperature 37.0 Blood Gas Actual Respiration Rate 20 Blood Gas Modality VENT - CPAP FiO2 40.0 Blood Gas High PEEP Setting 5.0 Blood Gas Pressure Support 10 Blood Gas Notified Whom TM Blood Gas Notified Time 02/20/2017 11:17:00 AM Hemoglobin 7.6 L Hematocrit 24.3 L Test 02/20/17 18:05 02/20/17 21:15 02/21/17 00:18 02/21/17 05:00 Bedside Glucose 105 112 108 White Blood Count 13.9 H Red Blood Count 2.55 L Hemoglobin 7.3 L Hematocrit 22.7 L Mean Corpuscular Volume 89.0 Mean Corpuscular Hemoglobin 28.6 L Mean Corpuscular Hemoglobin Concent 32.2 Red Cell Distribution Width 14.5 Platelet Count 326 Mean Platelet Volume 11.2 H Neutrophils % 84.5 H Lymphocytes % 4.5 L Monocytes % 6.9 Eosinophils % 2.0 Basophils % 0.2 Nucleated Red Blood Cells % 0.0 Neutrophils # 11.8 H Lymphocytes # 0.6 L Monocytes # 1.0 H Eosinophils # 0.3 Basophils # 0.0 Nucleated Red Blood Cells # 0.0 Sodium Level 137 Potassium Level 3.4 L Chloride Level 97 Carbon Dioxide Level 32 H Anion Gap 11 Blood Urea Nitrogen 17 Creatinine 0.59 L Glucose Level 107 Calcium Level 7.6 L Phosphorus Level 4.3 Magnesium Level 1.3 L Prealbumin 6.6 L Vancomycin Level Trough 21.8 *H Test 02/21/17 05:01 Bedside Glucose 115 Medications Medications Current Medications Pantoprazole (Protonix Iv) 40 mg DAILY@06 IV Last administered on 02/21/17 05: 30; Admin Dose 40 MG; Start 02/01/17 at 06:00 Acetaminophen/ Hydrocodone Bitart ([place] (5/325)) 1 tab Q4H PRN PO PAIN LEVEL 4 -7 Last administered on 02/09/17 18:48; Admin Dose 1 TAB; Start 02/01/17 at 20: 30 Acetaminophen/ Hydrocodone Bitart ([place] (5/325)) 2 tab Q4H PRN PO PAIN LEVEL 7 -10; Start 02/01/17 at 20:30 Bisacodyl (Dulcolax Supp) 10 mg BID PRN [place] CONSTIPATION; Start 02/01/17 at 20: 30 Sodium Biphosphate/ Sodium Phosphate 133 ml 133 ml BID PRN IN CONSTIPATION; Start 02/01/17 at 20:30 Metronidazole 100 ml @ 100 mls/hr Q8 IVPB Last administered on 02/21/17 06:14 ; Admin Dose 100 MLS/HR; Start 02/04/17 at 15:00 Meropenem (Merrem 500 Mg/ 100 ml (Pmx)) 100 ml @ 200 mls/hr Q8 IVPB Last administered on 02/21/17 05:30; Admin Dose 200 MLS/HR; Start 02/05/17 at 22:00 Acetaminophen (Tylenol Liquid) 650 mg Q4H PRN GTB PAIN AND OR ELEVATED TEMP Last administered on 02/20/17 01:22; Admin Dose 650 MG; Start 02/05/17 at 18:30 Salmeterol Xinafoate/ Fluticasone (Advair 250/50 Diskus) 1 inh BID INH Last administered on 02/12/17 09:03; Admin Dose 1 INH; Start 02/07/17 at 11:00; Status Future Hold IV Flush (NS 10 ml) 10 ml PRN PRN IV IV PROTOCOL; Start 02/07/17 at 14:30 Diphenhydramine HCl 25 mg 25 mg Q6H PRN IV itching ; Start 02/07/17 at 20:00 Ondansetron HCl/ Sodium Chloride (Zofran Inj/NS) 54 ml @ 216 mls/hr Q6H PRN IV NAUSEA AND/OR VOMITING; Start 02/09/17 at 11:30 Prednisone (Prednisone) 40 mg DAILY PO Last administered on 02/12/17 09:03; Admin Dose 40 MG; Start 02/11/17 at 09:00; Status Future Hold Lorazepam (Ativan) 1 mg Q2 PRN IV AGITATION/ANXIETY Last administered on 17:31; Admin Dose 1 MG; Start 02/10/17 at 17:00 Lorazepam (Ativan) 1 mg Q1HWA PRN IM AGITATION/ANXIETY; Start 02/10/17 at 19:00 Trimethobenzamide HCl 200 mg 200 mg Q6H PRN IM NAUSEA AND/OR VOMITING; Start at 19:30 Norepinephrine 16 mg/Dextrose 500 ml @ 1.87 mls/hr TITRATE IV ; Start 02/13/17 at 12:00; Status Future hold Total Parenteral Nutrition (Tpn) 1,000 ml @ 0 mls/hr Q20H IV Last administered on 02/20/17 18:08; Admin Dose 20 MLS/HR; Start 02/14/17 at 12:00 Diagnostic Test (Pha) 1 ea 1 ea Q4 XX Last administered on 02/21/17 05:06; Admin Dose 1 EA; Start 02/14/17 at 17:00 Caspofungin/ Sodium Chloride (Cancidas/NS) 250 ml @ 250 mls/hr Q24H IVPB Last administered on 02/20/17 12:42; Admin Dose 250 MLS/HR; Start 02/16/17 at 12:00 Furosemide (Lasix) 20 mg Q6 IV Last administered on 02/21/17 05:30; Admin Dose 20 MG; Start 02/18/17 at 00:00 Morphine Sulfate (morphine) 2 mg Q4H PRN IV pain; Start 02/20/17 at 18:30 Docusate Sodium 100 mg 100 mg BID NGT Last administered on 02/20/17 21:32; Admin Dose 100 MG; Start 02/20/17 at 21:00 Vancomycin HCl/ Sodium Chloride (Vancocin/NS) 250 ml @ 83.333 mls/ hr Q12H IVPB ; Start 02/21/17 at 09:00 TONY MCCRAY February 21, 2017 08:22
[2017-02-21] MEDS: LEVALBUTEROL (NEB) 0.63 MG/3 ML AMP HHN PRN (08:45)
[2017-02-21] MEDS: DOCUSATE SODIUM 10 MG/ML (10ML CUP) NGT SCH ×2 (09:04→20:57)
[2017-02-21] MEDS: VANCOMYCIN 1.25 GM in SOD CHLORIDE 0.9% 250 ML IVPB SCH ×2 (09:05→20:44)
[2017-02-21] MEDS ORDERED: MAGNESIUM SULFATE 1 GM/D5W 100 ML IVPB ONE (09:30)
[2017-02-21] MEDS ORDERED: POTASSIUM CHLORIDE 20 MEQ in SOD CHLORIDE 0.9% 100 ML IVPB ONE (10:30)
--- NOTE | 2017-02-21 10:49 | PN ---
Date/Time of Note Date/Time of Note DATE: 02/21/17 TIME: 10:47 Assessment/Plan Lines/Catheters IV Catheter Type (from Nrs): Peripheral IV Zeng in Place (from Nrs): Yes Assessment/Plan Assessment/Plan [facility] Progress Note Date of Service: 02/21/17 Today's Impression & Plan: Overall stable. Remains extubated with tenuous, but acceptable pulmonary picture. No obvious issues with the wound and abd remains benign. No indication for acute surgical intervention. Remains high risk for complication given perforated colon in the setting of uncontrolled Crohn's. Recovery will take extra time with likely need for rehab. D/w team and updated patient's father over the phone. With above assessment, I've recommended the following for today: 1. Cont current cares in ICU 2. F/u on cultures 3. Cont TPN 4. Treat ETOH withdrawal 5. Cont gentle diuresis to BMP < 200 6. Social work and case management to please start working on possible rehab vs. home health nurse set up 7. Increase activity 8. Increase ICS 9. Cont broad spec antimicrobials 10. Labs in am 11. Cont current wound care with wound vac 12. D/C NG 13. Swallow test and if ok, to start clear liquid diet 14. D/c L abdominal drain on Wednesday Thank you again for your great care of this very pleasant patient and wonderful family. If there are any questions, please feel free to call me at [phone]. TOTAL VISIT TIME: 20 minutes of which more than half was spent in [id number] discussion with the patient, possibly including family, as well as coordination of care between multiple physicians and providers. Disclaimer: Inadvertent spelling or grammatical errors are likely due to EHR/ dictation software use and do not reflect on the overall quality of patient care. Updated Clinical Summary: A very pleasant 46-year-old gentleman with history of Crohn's disease as well as prior surgery for anal fistula approximately 5 years ago, and a torn meniscus repair on the left knee, presenting with abdominal pain associated with a few weeks' duration of diarrhea. S/p an otherwise uncomplicated diagnostic laparoscopy was converted first to hand assist and then to open exploration when perforated sigmoid colon was found and it was resected with a Deena type procedure and end colostomy as well as core needle liver biopsy, segment 5, due to presence of fatty liver disease, lysis of adhesions, and abdominal lavage on 02/01/17. Failed to wean off the vent through 02/06/17. PE was evaluated 02/07/[address] angio and no evidence found. CT abd/pelvis also did not show actionable findings (no abscess; bowel thickening somewhat expected). Extubated 02/07/17. [employer] called early am 02/13/17 with a few minutes coding, requiring intubation and transfer to ICU. Fortunately, mentally appears to be intact and not on pressors. Lactic acid and CO2 normal with benign appearing abd and viable ostomy. Complicated by fascia dehiscence. S/p exploration of abdomen through recent laparotomy, primary closure of fascia and abdominal lavage on 02/15/17. COMORBIDITIES: 1. Crohn disease with perforation of sigmoid colon and sepsis. S/p an otherwise uncomplicated diagnostic laparoscopy was converted first to hand assist and then to open exploration when perforated sigmoid colon was found and it was resected with a Deena type procedure and end colostomy as well as core needle liver biopsy, segment 5, due to presence of fatty liver disease, lysis of adhesions, and abdominal lavage on 02/01/17. Complicated by respiratory failure, return trip to ICU and fascia dehiscence. S/p exploration of abdomen through recent laparotomy, primary closure of fascia and abdominal lavage on 02/15. 2. Repair of a fistula approximately 5 years ago. 3. Torn meniscus on the left knee status post repair. Subjective: No major events overnight; no major complaints; mild SOB, but no CP; + BM Objective: Vitals: See below Exam: GENERAL: On exam, the patient was laying in bed and appeared to be comfortable and in no acute distress. ABDOMEN: Soft, nontender and nondistended. Incision wound vac dressings are clean without any evidence of obvious erythema, edema, discharge, or hernia. Surgery drain site clean. Ostomy pink and viable; some air and stool in the bag. There are no peritoneal signs or guarding. SKIN: Skin appears to be pink and feels warm to touch. NEUROLOGIC: Patient is awake, alert and follows commands appropriately. Exam/Review of Systems Vital Signs Vitals Vital Signs Date Time Temp Pulse Resp B/P Pulse Ox O2 Delivery O2 Flow Rate FiO2 02/21/17 08:46 100 24 93 Nasal Cannula 4.0 02/21/17 07:00 118/70 02/21/17 04:00 98.5 02/20/17 10:55 40 Intake and Output 02/20/17 02/20/17 02/21/17 14:59 22:59 06:59 Intake Total 1013.747 ml 1210.00 ml 880 ml Output Total 1725 ml 1465 ml 1575 ml Balance -711.253 ml -255.00 ml -695 ml Results Result Diagram: 02/21/17 0500 02/21/17 0500 TI HILTON M.D. February 21, 2017 10:49
[2017-02-21 11:34] LABS: INR 1.26; PROTIME 15.9 Sec (12.2-14.2); PT RATIO 1.2
[2017-02-21] MEDS: CASPOFUNGIN 50 MG in SOD CHLORIDE 0.9% 250 ML IVPB SCH (11:51)
[2017-02-21] MEDS ORDERED: MAGNESIUM SULFATE 2 GM/50 ML 50 ML IVPB ONE (12:30)
[2017-02-21] MEDS ORDERED: POTASSIUM CHLORIDE 20 MEQ POWDER FOR ORAL SOLN NGT ONE (12:30)
--- NOTE | 2017-02-21 12:30 | CONS ---
Date/Time of Note Date/Time of Note DATE: 02/21/17 TIME: 12:28 Assessment/Plan Assessment/Plan Additional Assessment/Plan Perforated colon status post surgery Severe sepsis Respiratory failure-extubated Low normal ejection fraction 50% Acute decompensated diastolic congestive heart failure Crohn's disease Acute blood loss anemia -Patient extubated, continue diuretics as blood pressure and renal function permits. Supplement potassium to maintain above 4.0 and magnesium above 2.0. Consultation Date/Type/Reason Admit Date/Time Feb 01, 2017 at 03:10 Initial Consult Date 02/02/17 Type of Consultation: cv Referring Provider: VINCE PADGETT 24 HR Interval Summary Free Text/Dictation Patient seen and examined, extubated yesterday, no new cardiac issues as per nursing staff Exam/Review of Systems Vital Signs Vitals Vital Signs Date Time Temp Pulse Resp B/P Pulse Ox O2 Delivery O2 Flow Rate FiO2 02/21/17 10:00 102 23 106/78 93 Nasal Cannula 3.0 02/21/17 08:00 99.1 02/20/17 10:55 40 Intake and Output 02/20/17 02/20/17 02/21/17 15:00 23:00 07:00 Intake Total 930.414 ml 1330.00 ml 880 ml Output Total 1650 ml 1440 ml 1625 ml Balance -719.586 ml -110.00 ml -745 ml Exam Confused, no apparent distress Constitutional: alert Head: normocephalic Respiratory: other (Coarse breath sounds bilaterally, no wheezing) Cardiovascular: other (S1-S2 heard), regular rate and rhythm Gastrointestinal: bowel sounds, non-tender, soft Extremities: edema Results Result Diagram: 02/21/17 0500 02/21/17 0500 Results 24 hrs Laboratory Tests Test 02/20/17 13:19 02/20/17 18:05 02/20/17 21:15 02/21/17 00:18 Bedside Glucose 99 105 112 108 Test 02/21/17 05:00 02/21/17 05:01 02/21/17 09:07 02/21/17 10:48 White Blood Count 13.9 H Red Blood Count 2.55 L Hemoglobin 7.3 L Hematocrit 22.7 L Mean Corpuscular Volume 89.0 Mean Corpuscular Hemoglobin 28.6 L Mean Corpuscular Hemoglobin Concent 32.2 Red Cell Distribution Width 14.5 Platelet Count 326 Mean Platelet Volume 11.2 H Neutrophils % 84.5 H Lymphocytes % 4.5 L Monocytes % 6.9 Eosinophils % 2.0 Basophils % 0.2 Nucleated Red Blood Cells % 0.0 Neutrophils # 11.8 H Lymphocytes # 0.6 L Monocytes # 1.0 H Eosinophils # 0.3 Basophils # 0.0 Nucleated Red Blood Cells # 0.0 Sodium Level 137 Potassium Level 3.4 L Chloride Level 97 Carbon Dioxide Level 32 H Anion Gap 11 Blood Urea Nitrogen 17 Creatinine 0.59 L Glucose Level 107 Calcium Level 7.6 L Phosphorus Level 4.3 Magnesium Level 1.3 L Prealbumin 6.6 L Vancomycin Level Trough 21.8 *H Bedside Glucose 115 122 Prothrombin Time 15.9 H Prothrombin Time Ratio 1.2 INR International Normalized Ratio 1.26 Ionized Calcium (Measured) 1.1 Medications Medications Current Medications Pantoprazole (Protonix Iv) 40 mg DAILY@06 IV Last administered on 02/21/17 05: 30; Admin Dose 40 MG; Start 02/01/17 at 06:00 Acetaminophen/ Hydrocodone Bitart ([place] (5/325)) 1 tab Q4H PRN PO PAIN LEVEL 4 -7 Last administered on 02/09/17 18:48; Admin Dose 1 TAB; Start 02/01/17 at 20: 30 Acetaminophen/ Hydrocodone Bitart ([place] (5/325)) 2 tab Q4H PRN PO PAIN LEVEL 7 -10; Start 02/01/17 at 20:30 Bisacodyl (Dulcolax Supp) 10 mg BID PRN [place] CONSTIPATION; Start 02/01/17 at 20: 30 Sodium Biphosphate/ Sodium Phosphate 133 ml 133 ml BID PRN DE CONSTIPATION; Start 02/01/17 at 20:30 Metronidazole 100 ml @ 100 mls/hr Q8 IVPB Last administered on 02/21/17 06:14 ; Admin Dose 100 MLS/HR; Start 02/04/17 at 15:00 Meropenem (Merrem 500 Mg/ 100 ml (Pmx)) 100 ml @ 200 mls/hr Q8 IVPB Last administered on 02/21/17 05:30; Admin Dose 200 MLS/HR; Start 02/05/17 at 22:00 Acetaminophen (Tylenol Liquid) 650 mg Q4H PRN GTB PAIN AND OR ELEVATED TEMP Last administered on 02/20/17 01:22; Admin Dose 650 MG; Start 02/05/17 at 18:30 Salmeterol Xinafoate/ Fluticasone (Advair 250/50 Diskus) 1 inh BID INH Last administered on 02/12/17 09:03; Admin Dose 1 INH; Start 02/07/17 at 11:00; Status Future Hold IV Flush (NS 10 ml) 10 ml PRN PRN IV IV PROTOCOL; Start 02/07/17 at 14:30 Diphenhydramine HCl 25 mg 25 mg Q6H PRN IV itching ; Start 02/07/17 at 20:00 Ondansetron HCl/ Sodium Chloride (Zofran Inj/NS) 54 ml @ 216 mls/hr Q6H PRN IV NAUSEA AND/OR VOMITING; Start 02/09/17 at 11:30 Prednisone (Prednisone) 40 mg DAILY PO Last administered on 02/12/17 09:03; Admin Dose 40 MG; Start 02/11/17 at 09:00; Status Future Hold Lorazepam (Ativan) 1 mg Q2 PRN IV AGITATION/ANXIETY Last administered on 17:31; Admin Dose 1 MG; Start 02/10/17 at 17:00 Lorazepam (Ativan) 1 mg Q1HWA PRN IM AGITATION/ANXIETY; Start 02/10/17 at 19:00 Trimethobenzamide HCl 200 mg 200 mg Q6H PRN IM NAUSEA AND/OR VOMITING; Start at 19:30 Norepinephrine 16 mg/Dextrose 500 ml @ 1.87 mls/hr TITRATE IV ; Start 02/13/17 at 12:00; Status Future hold Total Parenteral Nutrition (Tpn) 1,000 ml @ 0 mls/hr Q20H IV Last administered on 02/20/17 18:08; Admin Dose 20 MLS/HR; Start 02/14/17 at 12:00 Diagnostic Test (Pha) 1 ea 1 ea Q4 XX Last administered on 02/21/17 09:07; Admin Dose 1 EA; Start 02/14/17 at 17:00 Caspofungin/ Sodium Chloride (Cancidas/NS) 250 ml @ 250 mls/hr Q24H IVPB Last administered on 5/7/17at 11:51; Admin Dose 250 MLS/HR; Start 02/16/17 at 12:00 Furosemide (Lasix) 20 mg Q6 IV Last administered on 02/21/17 11:49; Admin Dose 20 MG; Start 02/18/17 at 00:00 Morphine Sulfate (morphine) 2 mg Q4H PRN IV pain; Start 02/20/17 at 18:30 Docusate Sodium 100 mg 100 mg BID NGT Last administered on 02/21/17 09:04; Admin Dose 100 MG; Start 02/20/17 at 21:00 Vancomycin HCl 1.25 gm/Sodium Chloride 250 ml @ 83.333 mls/ hr Q12H IVPB Last administered on 02/21/17 09:05; Admin Dose 83.333 MLS/HR; Start 02/21/17 at 09:00 Potassium Chloride/Sodium Chloride (KCl/NS) 110 ml @ 55 mls/hr ONCE ONCE IVPB Last administered on 02/21/17 11:49; Admin Dose 55 MLS/HR; Start 02/21/17 at 10 :30; Stop 02/21/17 at 12:29 Keith Gandhi DO February 21, 2017 12:29
--- NOTE | 2017-02-21 13:31 | CONS ---
Date/Time of Note Date/Time of Note DATE: 02/21/17 TIME: 13:29 Consult Date/Type/Reason Admit Date/Time Feb 01, 2017 at 03:10 Type of Consultation: pulmonary ICU Ordering Provider: VINCE PADGETT Subjective Patient stable postextubation Awake alert and oriented Denies chest pain Mild shortness of breath with productive cough which is able to clear Objective Vital Signs Date Time Temp Pulse Resp B/P Pulse Ox O2 Delivery O2 Flow Rate FiO2 02/21/17 12:00 99 02/21/17 10:00 23 106/78 93 Nasal Cannula 3.0 02/21/17 08:00 99.1 02/20/17 10:55 40 Intake and Output 02/20/17 02/20/17 02/21/17 15:00 23:00 07:00 Intake Total 930.414 ml 1330.00 ml 880 ml Output Total 1650 ml 1440 ml 1625 ml Balance -719.586 ml -110.00 ml -745 ml Exam PHYSICAL EXAMINATION GENERAL chronically ill-appearing gentleman nasal cannula oxygen VITAL SIGNS: see below. HEENT: Pupils equal, round, and reactive to light. CARDIAC: S1, S2, CHEST: Diminished air entry bilaterally. ABDOMEN: Mildly distended. Distal bowel sounds no guarding or rebound EXTREMITIES: No cyanosis, clubbing edema +2 NEUROLOGIC: Generalized weakness Results/Medications Result Diagram: 02/21/17 0500 02/21/17 0500 Results 24 hrs Laboratory Tests Test 02/20/17 18:05 02/20/17 21:15 02/21/17 00:18 02/21/17 05:00 Bedside Glucose 105 112 108 White Blood Count 13.9 H Red Blood Count 2.55 L Hemoglobin 7.3 L Hematocrit 22.7 L Mean Corpuscular Volume 89.0 Mean Corpuscular Hemoglobin 28.6 L Mean Corpuscular Hemoglobin Concent 32.2 Red Cell Distribution Width 14.5 Platelet Count 326 Mean Platelet Volume 11.2 H Neutrophils % 84.5 H Lymphocytes % 4.5 L Monocytes % 6.9 Eosinophils % 2.0 Basophils % 0.2 Nucleated Red Blood Cells % 0.0 Neutrophils # 11.8 H Lymphocytes # 0.6 L Monocytes # 1.0 H Eosinophils # 0.3 Basophils # 0.0 Nucleated Red Blood Cells # 0.0 Sodium Level 137 Potassium Level 3.4 L Chloride Level 97 Carbon Dioxide Level 32 H Anion Gap 11 Blood Urea Nitrogen 17 Creatinine 0.59 L Glucose Level 107 Calcium Level 7.6 L Phosphorus Level 4.3 Magnesium Level 1.3 L Prealbumin 6.6 L Vancomycin Level Trough 21.8 *H Test 02/21/17 05:01 02/21/17 09:07 02/21/17 10:48 02/21/17 12:37 Bedside Glucose 115 122 112 Prothrombin Time 15.9 H Prothrombin Time Ratio 1.2 INR International Normalized Ratio 1.26 Ionized Calcium (Measured) 1.1 Medications Current Medications Pantoprazole (Protonix Iv) 40 mg DAILY@06 IV Last administered on 02/21/17 05: 30; Admin Dose 40 MG; Start 02/01/17 at 06:00 Acetaminophen/ Hydrocodone Bitart ([place] (5/325)) 1 tab Q4H PRN PO PAIN LEVEL 4 -7 Last administered on 02/09/17 18:48; Admin Dose 1 TAB; Start 02/01/17 at 20: 30 Acetaminophen/ Hydrocodone Bitart ([place] (5/325)) 2 tab Q4H PRN PO PAIN LEVEL 7 -10; Start 02/01/17 at 20:30 Bisacodyl (Dulcolax Supp) 10 mg BID PRN [place] CONSTIPATION; Start 02/01/17 at 20: 30 Sodium Biphosphate/ Sodium Phosphate 133 ml 133 ml BID PRN [place] CONSTIPATION; Start 02/01/17 at 20:30 Metronidazole 100 ml @ 100 mls/hr Q8 IVPB Last administered on 02/21/17 06:14 ; Admin Dose 100 MLS/HR; Start 02/04/17 at 15:00 Meropenem (Merrem 500 Mg/ 100 ml (Pmx)) 100 ml @ 200 mls/hr Q8 IVPB Last administered on 02/21/17 05:30; Admin Dose 200 MLS/HR; Start 02/05/17 at 22:00 Acetaminophen (Tylenol Liquid) 650 mg Q4H PRN GTB PAIN AND OR ELEVATED TEMP Last administered on 02/20/17 01:22; Admin Dose 650 MG; Start 02/05/17 at 18:30 Salmeterol Xinafoate/ Fluticasone (Advair 250/50 Diskus) 1 inh BID INH Last administered on 02/12/17 09:03; Admin Dose 1 INH; Start 02/07/17 at 11:00; Status Future Hold IV Flush (NS 10 ml) 10 ml PRN PRN IV IV PROTOCOL; Start 02/07/17 at 14:30 Diphenhydramine HCl 25 mg 25 mg Q6H PRN IV itching ; Start 02/07/17 at 20:00 Ondansetron HCl/ Sodium Chloride (Zofran Inj/NS) 54 ml @ 216 mls/hr Q6H PRN IV NAUSEA AND/OR VOMITING; Start 02/09/17 at 11:30 Prednisone (Prednisone) 40 mg DAILY PO Last administered on 02/12/17 09:03; Admin Dose 40 MG; Start 02/11/17 at 09:00; Status Future Hold Lorazepam (Ativan) 1 mg Q2 PRN IV AGITATION/ANXIETY Last administered on 17:31; Admin Dose 1 MG; Start 02/10/17 at 17:00 Lorazepam (Ativan) 1 mg Q1HWA PRN IM AGITATION/ANXIETY; Start 02/10/17 at 19:00 Trimethobenzamide HCl 200 mg 200 mg Q6H PRN IM NAUSEA AND/OR VOMITING; Start at 19:30 Norepinephrine/ Dextrose (Levophed/D5W) 500 ml @ 1.87 mls/hr TITRATE IV ; Start 02/13/17 at 12:00; Status Future hold Diagnostic Test (Pha) 1 ea 1 ea Q4 XX Last administered on 02/21/17 12:38; Admin Dose 1 EA; Start 02/14/17 at 17:00 Caspofungin/ Sodium Chloride (Cancidas/NS) 250 ml @ 250 mls/hr Q24H IVPB Last administered on 02/21/17 11:51; Admin Dose 250 MLS/HR; Start 02/16/17 at 12:00 Furosemide (Lasix) 20 mg Q6 IV Last administered on 02/21/17 11:49; Admin Dose 20 MG; Start 02/18/17 at 00:00 Morphine Sulfate (morphine) 2 mg Q4H PRN IV pain; Start 02/20/17 at 18:30 Docusate Sodium 100 mg 100 mg BID NGT Last administered on 02/21/17 09:04; Admin Dose 100 MG; Start 02/20/17 at 21:00 Vancomycin HCl 1.25 gm/Sodium Chloride 250 ml @ 83.333 mls/ hr Q12H IVPB Last administered on 02/21/17 09:05; Admin Dose 83.333 MLS/HR; Start 02/21/17 at 09:00 Magnesium Sulfate (Magnesium Sulfate 2 Gm/50 ml) 50 ml @ 25 mls/hr ONCE ONCE IVPB Last administered on 02/21/17 12:40; Admin Dose 25 MLS/HR; Start 02/21/17 at 12:30; Stop 02/21/17 at 14:29 Assessment/Plan Chief Complaint/Hosp Course Assessment 1. Crohn's disease with perforation of sigmoid colon and sepsis status post arthroscopic sigmoid colectomy and end colostomy with lysis of adhesions 2. Resolved metabolic acidosis with septic shock 3. Improved electrolyte imbalance 4. Hypoxemic respiratory failure possibly underlying pleural effusions with compressive atelectasis now extubated, probable left pleural effusion 5. Thrombocytopenia improved 6. Postop anemia Plan 1. Continue pain control 2. Continue incentive spirometry, likely need thoracentesis of left pleural effusion tomorrow 3. Continue surgical wound care 4. Continue broad-spectrum antibiotic coverage 5. Consider removal of nasogastric tube tomorrow speech therapy evaluation 6. DVT GI prophylaxis Disposition Continue ICU care Problems: RAMON DOUGLAS MD, [facility] February 21, 2017 13:31
--- NOTE | 2017-02-21 13:36 | RADRPT ---
PROCEDURE: XR Chest. CLINICAL INDICATION: Shortness of breath. TECHNIQUE: Single frontal view. COMPARISON: 02/20/2017. FINDINGS: The endotracheal tube has been removed. The nasogastric tube tip is in the stomach. Mild pulmonary edema is worse than seen previously. There is mild atelectasis at the lung bases, also worse than seen previously. The heart size is normal. There are small bilateral pleural effusions, slightly larger than seen previously. There is no pneumothorax. IMPRESSION: 1. Worse appearance of the lungs and larger bilateral pleural effusions. 2. Endotracheal tube removed. 3. No other change from 02/20/2017. RPTAT: QQ .Rogelio Vera MD, MD Date Time Electronically viewed and signed by .Rogelio Vera MD, on 02/21/2017 13:36 .R/
--- NOTE | 2017-02-21 14:59 | PN ---
Date/Time of Note Date/Time of Note DATE: 02/21/17 TIME: 14:53 Assessment/Plan VTE Prophylaxis VTE Prophylaxis Intervention: heparin VTE Contraindication Reason: thrombocytopenia Lines/Catheters IV Catheter Type (from Nrsg): Peripheral IV Urinary Cath still in place: Yes Reason Cath still needed: other (indicate) Assessment/Plan Assessment/Plan IMPRESSION 1. Perforated sigmoid colon 2/2 Severe Crohn's colitis * S/p Urgent Open Cronin's procedure with end colostomy, liver biopsy and abdominal lavage 02/01/17P * S/p post operative paracolic abscess drained via CT 02/14/[address] * S/p Exploration of abdomen through recent laparotomy site with closure of fascia done 02/15/17 for Fascia dehiscence 2. Recurrent Resp failure: Extubated then reintubated 02/13: currently vent dependent 3. Exacerbation of Crohn's disease with acute colitis and diarrhea Cultures growing ecoli / proteus / enterococcus 4. Multifocal PNA + Mook Pleural effusions Effusions likely hydrostatic from hypoalbuminemia 5. Severe Sepsis with lactic acidosis 2/2 severe colitis / PNA 6. S/p Systemic shock (hypovolemic +septic) 7. TPN therapy for low prealbumin + tube feeds 8. Hx of heavy alcohol and tobacco use just until admission 9. Probable underlying COPD and Cirrhosis based on hx which explains hypoalbuminemia and anasarca 10. Severe recurrent anemia likely 2/2 occult blood loss from multiple sources : PRN transfusions 11. Hypomagnesemia PLAN: * d/c TPN and Continue tube feeds * Gentle diuresis with daily albumin * Continue post Op wound care/ electrolyte management * Continue Wound care and wound Vac * ID managing abx and antifungal * Replace electrolytes as needed * PRN pain control/ antiemetics/ antipyretics/ supportive care * Low dose heparin for prophylaxis CRITICAL CARE TIME: >35 mins Subjective 24 Hr Interval Summary Free Text/Dictation patient stable post extubation Confused speech Nursing reports no acute overnight events. Exam/Review of Systems Vital Signs Vitals Vital Signs Date Time Temp Pulse Resp B/P Pulse Ox O2 Delivery O2 Flow Rate FiO2 02/21/17 12:00 99 02/21/17 10:00 23 106/78 93 Nasal Cannula 3.0 02/21/17 08:00 99.1 02/20/17 10:55 40 Intake and Output 02/20/17 02/20/1717 14:59 22:59 06:59 Intake Total 1013.747 ml 1210.00 ml 880 ml Output Total 1725 ml 1465 ml 1575 ml Balance -711.253 ml -255.00 ml -695 ml Exam Constitutional: alert, No distress, No oriented Psych: confusion Head: normocephalic Eyes: PERRL, icteric ENMT: other (NGT) Respiratory: congested cough, diminished breath sounds, No wheezing Cardiovascular: regular rate and rhythm, No murmurs/extra sounds Gastrointestinal: distended (mildly), firm (mildly), other (midline surgical dressing with wound vac / L sided colostomy and drain / colostomy has dark green fluidy stool), soft Genitourinary - Male: other (significant scrotal and penile edema) Musculoskeletal: swelling (generalized severe anasarca) Extremities: pitting pedal edema Neurological: confused, lethargic Results Result Diagram: 02/21/17 0500 02/21/17 0500 Results 24 hrs Laboratory Tests Test 02/20/17 18:05 02/20/17 21:15 02/21/17 00:18 02/21/17 05:00 Bedside Glucose 105 112 108 White Blood Count 13.9 H Red Blood Count 2.55 L Hemoglobin 7.3 L Hematocrit 22.7 L Mean Corpuscular Volume 89.0 Mean Corpuscular Hemoglobin 28.6 L Mean Corpuscular Hemoglobin Concent 32.2 Red Cell Distribution Width 14.5 Platelet Count 326 Mean Platelet Volume 11.2 H Neutrophils % 84.5 H Lymphocytes % 4.5 L Monocytes % 6.9 Eosinophils % 2.0 Basophils % 0.2 Nucleated Red Blood Cells % 0.0 Neutrophils # 11.8 H Lymphocytes # 0.6 L Monocytes # 1.0 H Eosinophils # 0.3 Basophils # 0.0 Nucleated Red Blood Cells # 0.0 Sodium Level 137 Potassium Level 3.4 L Chloride Level 97 Carbon Dioxide Level 32 H Anion Gap 11 Blood Urea Nitrogen 17 Creatinine 0.59 L Glucose Level 107 Calcium Level 7.6 L Phosphorus Level 4.3 Magnesium Level 1.3 L Prealbumin 6.6 L Vancomycin Level Trough 21.8 *H Test 02/21/17 05:01 02/21/17 09:07 02/21/17 10:48 02/21/17 12:37 Bedside Glucose 115 122 112 Prothrombin Time 15.9 H Prothrombin Time Ratio 1.2 INR International Normalized Ratio 1.26 Ionized Calcium (Measured) 1.1 Medications Medications Current Medications Pantoprazole (Protonix Iv) 40 mg DAILY@06 IV Last administered on 02/21/17 05: 30; Admin Dose 40 MG; Start 02/01/17 at 06:00 Acetaminophen/ Hydrocodone Bitart ([place] (5/325)) 1 tab Q4H PRN PO PAIN LEVEL 4 -7 Last administered on 02/09/17 18:48; Admin Dose 1 TAB; Start 02/01/17 at 20: 30 Acetaminophen/ Hydrocodone Bitart ([place] (5/325)) 2 tab Q4H PRN PO PAIN LEVEL 7 -10; Start 02/01/17 at 20:30 Bisacodyl (Dulcolax Supp) 10 mg BID PRN IN CONSTIPATION; Start 02/01/17 at 20: 30 Sodium Biphosphate/ Sodium Phosphate 133 ml 133 ml BID PRN IN CONSTIPATION; Start 02/01/17 at 20:30 Metronidazole 100 ml @ 100 mls/hr Q8 IVPB Last administered on 02/21/17 06:14 ; Admin Dose 100 MLS/HR; Start 02/04/17 at 15:00 Meropenem (Merrem 500 Mg/ 100 ml (Pmx)) 100 ml @ 200 mls/hr Q8 IVPB Last administered on 02/21/17 05:30; Admin Dose 200 MLS/HR; Start 02/05/17 at 22:00 Acetaminophen (Tylenol Liquid) 650 mg Q4H PRN GTB PAIN AND OR ELEVATED TEMP Last administered on 02/20/17 01:22; Admin Dose 650 MG; Start 02/05/17 at 18:30 Salmeterol Xinafoate/ Fluticasone (Advair 250/50 Diskus) 1 inh BID INH Last administered on 02/12/17 09:03; Admin Dose 1 INH; Start 02/07/17 at 11:00; Status Future Hold IV Flush (NS 10 ml) 10 ml PRN PRN IV IV PROTOCOL; Start 02/07/17 at 14:30 Diphenhydramine HCl 25 mg 25 mg Q6H PRN IV itching ; Start 02/07/17 at 20:00 Ondansetron HCl/ Sodium Chloride (Zofran Inj/NS) 54 ml @ 216 mls/hr Q6H PRN IV NAUSEA AND/OR VOMITING; Start 02/09/17 at 11:30 Prednisone (Prednisone) 40 mg DAILY PO Last administered on 02/12/17 09:03; Admin Dose 40 MG; Start 02/11/17 at 09:00; Status Future Hold Lorazepam (Ativan) 1 mg Q2 PRN IV AGITATION/ANXIETY Last administered on 17:31; Admin Dose 1 MG; Start 02/10/17 at 17:00 Lorazepam (Ativan) 1 mg Q1HWA PRN IM AGITATION/ANXIETY; Start 02/10/17 at 19:00 Trimethobenzamide HCl 200 mg 200 mg Q6H PRN IM NAUSEA AND/OR VOMITING; Start at 19:30 Norepinephrine/ Dextrose (Levophed/D5W) 500 ml @ 1.87 mls/hr TITRATE IV ; Start 02/13/17 at 12:00; Status Future hold Diagnostic Test (Pha) 1 ea 1 ea Q4 XX Last administered on 02/21/17 12:38; Admin Dose 1 EA; Start 02/14/17 at 17:00 Caspofungin/ Sodium Chloride (Cancidas/NS) 250 ml @ 250 mls/hr Q24H IVPB Last administered on 02/21/17 11:51; Admin Dose 250 MLS/HR; Start 02/16/17 at 12:00 Furosemide (Lasix) 20 mg Q6 IV Last administered on 02/21/17 11:49; Admin Dose 20 MG; Start 02/18/17 at 00:00 Morphine Sulfate (morphine) 2 mg Q4H PRN IV pain; Start 02/20/17 at 18:30 Docusate Sodium 100 mg 100 mg BID NGT Last administered on 02/21/17 09:04; Admin Dose 100 MG; Start 02/20/17 at 21:00 Vancomycin HCl/ Sodium Chloride (Vancocin/NS) 250 ml @ 83.333 mls/ hr Q12H IVPB Last administered on 02/21/17 09:05; Admin Dose 83.333 MLS/HR; Start at 09:00 Procedures Procedures PROCEDURE: XR Chest. CLINICAL INDICATION: Shortness of breath. TECHNIQUE: Single frontal view. COMPARISON: 02/20/2017. FINDINGS: The endotracheal tube has been removed. The nasogastric tube tip is in the stomach. Mild pulmonary edema is worse than seen previously. There is mild atelectasis at the lung bases, also worse than seen previously. The heart size is normal. There are small bilateral pleural effusions, slightly larger than seen previously. There is no pneumothorax. IMPRESSION: 1. Worse appearance of the lungs and larger bilateral pleural effusions. 2. Endotracheal tube removed. 3. No other change from 02/20/2017. RPTAT: QQ .Rogelio Vera MD, MD Date Time Electronically viewed and signed by .Rogelio Vera MD, MD on 02/21/2017 13:36 .R/ CC: RAMON DOUGLAS MD, [facility] VINCE PADGETT February 21, 2017 14:59
--- NOTE | 2017-02-21 15:53 | CONS ---
Date/Time of Note Date/Time of Note DATE: 02/21/17 TIME: 15:51 Assessment/Plan Assessment/Plan Chief Complaint/Hosp Course SUBJECTIVE: No acute changes overnight. S/p extubated, alert, looks comfortable, no fevers INDWELLINGS: NG tube, Zeng catheter, left-sided abdominal drainage catheter. ANTIMICROBIALS: 1. Vancomycin. 2. Cancidas. 3. Meropenem. 4. Flagyl. PHYSICAL EXAMINATION: GENERAL: This is a well-developed, middle-aged white man who is awake, in no distress. HEENT: Head atraumatic, normocephalic. Sclerae anicteric. Buccal mucosa dry. NECK: Supple. CHEST: Rise symmetrical. Breath sounds clear, diminished to bases. HEART: S1, S2. ABDOMEN: Soft. Mid abdominal dressing to wound VAC. EXTREMITIES: Without cyanosis. Bilateral edema, dependent. SKIN: Positive for anasarca. ASSESSMENT: 1. Sepsis 2. Healthcare-associated pneumonia. 3. History of Crohn's disease. 4. Status post perforated viscus repair on 02/01/2017 complicated by intra- abdominal abscess, status post drainage on 02/14/2017. 5. Status post exploration of the abdomen with abdominal lavage on 02/15/2017. 6. Anemia. PLAN: The patient remains stable post extubation. Continue abx, aspiration precautions, f/u pulmonary/GI/surgical rec-s. Consider repeat CT abdomen if spikes fever [facility] staff Problems: Consultation Date/Type/Reason Admit Date/Time Feb 01, 2017 at 03:10 Initial Consult Date 02/02/17 Type of Consultation: ID Referring Provider: VINCE PADGETT Exam/Review of Systems Vital Signs Vitals Vital Signs Date Time Temp Pulse Resp B/P Pulse Ox O2 Delivery O2 Flow Rate FiO2 02/21/17 12:00 99 02/21/17 10:00 23 106/78 93 Nasal Cannula 3.0 02/21/17 08:00 99.1 02/20/17 10:55 40 Intake and Output 02/20/17 02/20/17 02/21/17 15:00 23:00 07:00 Intake Total 930.414 ml 1330.00 ml 880 ml Output Total 1650 ml 1440 ml 1625 ml Balance -719.586 ml -110.00 ml -745 ml Results Result Diagram: 02/21/17 0500 02/21/17 0500 Results 24 hrs Laboratory Tests Test 02/20/17 18:05 02/20/17 21:15 02/21/17 00:18 02/21/17 05:00 Bedside Glucose 105 112 108 White Blood Count 13.9 H Red Blood Count 2.55 L Hemoglobin 7.3 L Hematocrit 22.7 L Mean Corpuscular Volume 89.0 Mean Corpuscular Hemoglobin 28.6 L Mean Corpuscular Hemoglobin Concent 32.2 Red Cell Distribution Width 14.5 Platelet Count 326 Mean Platelet Volume 11.2 H Neutrophils % 84.5 H Lymphocytes % 4.5 L Monocytes % 6.9 Eosinophils % 2.0 Basophils % 0.2 Nucleated Red Blood Cells % 0.0 Neutrophils # 11.8 H Lymphocytes # 0.6 L Monocytes # 1.0 H Eosinophils # 0.3 Basophils # 0.0 Nucleated Red Blood Cells # 0.0 Sodium Level 137 Potassium Level 3.4 L Chloride Level 97 Carbon Dioxide Level 32 H Anion Gap 11 Blood Urea Nitrogen 17 Creatinine 0.59 L Glucose Level 107 Calcium Level 7.6 L Phosphorus Level 4.3 Magnesium Level 1.3 L Prealbumin 6.6 L Vancomycin Level Trough 21.8 *H Test 02/21/17 05:01 02/21/17 09:07 02/21/17 10:48 02/21/17 12:37 Bedside Glucose 115 122 112 Prothrombin Time 15.9 H Prothrombin Time Ratio 1.2 INR International Normalized Ratio 1.26 Ionized Calcium (Measured) 1.1 Medications Medications Current Medications Pantoprazole (Protonix Iv) 40 mg DAILY@06 IV Last administered on 02/21/17 05: 30; Admin Dose 40 MG; Start 02/01/17 at 06:00 Acetaminophen/ Hydrocodone Bitart ([place] (5/325)) 1 tab Q4H PRN PO PAIN LEVEL 4 -7 Last administered on 02/09/17 18:48; Admin Dose 1 TAB; Start 02/01/17 at 20: 30 Acetaminophen/ Hydrocodone Bitart ([place] (5/325)) 2 tab Q4H PRN PO PAIN LEVEL 7 -10; Start 02/01/17 at 20:30 Bisacodyl (Dulcolax Supp) 10 mg BID PRN [place] CONSTIPATION; Start 02/01/17 at 20: 30 Sodium Biphosphate/ Sodium Phosphate 133 ml 133 ml BID PRN [place] CONSTIPATION; Start 02/01/17 at 20:30 Metronidazole 100 ml @ 100 mls/hr Q8 IVPB Last administered on 02/21/17 15:08 ; Admin Dose 100 MLS/HR; Start 02/04/17 at 15:00 Meropenem (Merrem 500 Mg/ 100 ml (Pmx)) 100 ml @ 200 mls/hr Q8 IVPB Last administered on 02/21/17 15:10; Admin Dose 200 MLS/HR; Start 02/05/17 at 22:00 Acetaminophen (Tylenol Liquid) 650 mg Q4H PRN GTB PAIN AND OR ELEVATED TEMP Last administered on 02/20/17 01:22; Admin Dose 650 MG; Start 02/05/17 at 18:30 Salmeterol Xinafoate/ Fluticasone (Advair 250/50 Diskus) 1 inh BID INH Last administered on 02/12/17 09:03; Admin Dose 1 INH; Start 02/07/17 at 11:00; Status Future Hold IV Flush (NS 10 ml) 10 ml PRN PRN IV IV PROTOCOL; Start 02/07/17 at 14:30 Diphenhydramine HCl 25 mg 25 mg Q6H PRN IV itching ; Start 02/07/17 at 20:00 Ondansetron HCl/ Sodium Chloride (Zofran Inj/NS) 54 ml @ 216 mls/hr Q6H PRN IV NAUSEA AND/OR VOMITING; Start 02/09/17 at 11:30 Prednisone (Prednisone) 40 mg DAILY PO Last administered on 02/12/17 09:03; Admin Dose 40 MG; Start 02/11/17 at 09:00; Status Future Hold Lorazepam (Ativan) 1 mg Q2 PRN IV AGITATION/ANXIETY Last administered on 17:31; Admin Dose 1 MG; Start 02/10/17 at 17:00 Lorazepam (Ativan) 1 mg Q1HWA PRN IM AGITATION/ANXIETY; Start 02/10/17 at 19:00 Trimethobenzamide HCl 200 mg 200 mg Q6H PRN IM NAUSEA AND/OR VOMITING; Start at 19:30 Norepinephrine/ Dextrose (Levophed/D5W) 500 ml @ 1.87 mls/hr TITRATE IV ; Start 02/13/17 at 12:00; Status Future hold Diagnostic Test (Pha) 1 ea 1 ea Q4 XX Last administered on 02/21/17 12:38; Admin Dose 1 EA; Start 02/14/17 at 17:00 Caspofungin/ Sodium Chloride (Cancidas/NS) 250 ml @ 250 mls/hr Q24H IVPB Last administered on 02/21/17 11:51; Admin Dose 250 MLS/HR; Start 02/16/17 at 12:00 Furosemide (Lasix) 20 mg Q6 IV Last administered on 02/21/17 11:49; Admin Dose 20 MG; Start 02/18/17 at 00:00 Morphine Sulfate (morphine) 2 mg Q4H PRN IV pain; Start 02/20/17 at 18:30 Docusate Sodium 100 mg 100 mg BID NGT Last administered on 02/21/17 09:04; Admin Dose 100 MG; Start 02/20/17 at 21:00 Vancomycin HCl/ Sodium Chloride (Vancocin/NS) 250 ml @ 83.333 mls/ hr Q12H IVPB Last administered on 02/21/17 09:05; Admin Dose 83.333 MLS/HR; Start at 09:00 THOMAS ELLIS NP February 21, 2017 15:53
[2017-02-21] MEDS: morphine 2 MG INJ IV PRN (19:56)
[2017-02-21] MEDS ORDERED: ZOLPIDEM 5 MG TAB PO PRN (21:00)
[2017-02-22] VITALS (24 sets, daily range): BP systolic 105–135; BP diastolic 64–115; PULSE 105–119; RESP 15–39
[2017-02-22] MEDS: FUROSEMIDE 20 MG INJ IV SCH ×4 (00:18→17:22)
[2017-02-22] MEDS: ACCU-CHEK XX SCH ×3 (01:02→08:40)
[2017-02-22] MEDS: metroNIDAZOLE 500 MG/NS (PMX) 100 ML IVPB SCH (05:39)
[2017-02-22] MEDS: MEROPENEM 500 MG/100 ML (PMX) 100 ML IVPB SCH ×3 (05:39→21:10)
[2017-02-22] MEDS: PANTOPRAZOLE 40 MG INJ IV SCH (05:49)
[2017-02-22 06:01] LABS: ADD SCAN DIFF NO
[2017-02-22 06:17] LABS: BASOPHILS % 0.2 % (0.0-2.0); EOSINOPHILS # 0.3 10^3/ul (0.0-0.5); EOSINOPHILS % 2.2 % (0.0-7.0); HEMATOCRIT 22.7 % (42.0-52.0); HEMOGLOBIN 7.3 g/dl (14.0-18.0); LYMPHOCYTES # 0.7 10^3/ul (0.8-2.9); LYMPHOCYTES % 5.4 % (15.0-51.0); MEAN CORPUSCULAR HEMOGLOBIN 28.2 pg (29.0-33.0); MEAN CORPUSCULAR HGB CONC 32.2 g/dl (32.0-37.0); MEAN CORPUSCULAR VOLUME 87.6 fl (82.0-101.0); MEAN PLATELET VOLUME 11.4 fl (7.4-10.4); MONOCYTE # 0.9 10^3/ul (0.3-0.9); NEUTROPHIL # 10.8 10^3/ul (1.6-7.5); PLATELET COUNT 386 10^3/UL (140-415); RED BLOOD COUNT 2.59 10^6/ul (4.70-6.10); RED CELL DISTRIBUTION WIDTH 14.3 % (11.5-14.5); WHITE BLOOD COUNT 12.9 10^3/ul (4.8-10.8)
[2017-02-22 06:32] LABS: INR 1.2; PROTIME 15.3 Sec (12.2-14.2); PT RATIO 1.2
[2017-02-22 06:33] LABS: PARTIAL THROMBOPLASTIN TIME 42.1 Sec (25.0-35.0)
[2017-02-22 06:43] LABS: ALBUMIN 2.1 g/dl (3.3-4.9); ALBUMIN/GLOBULIN RATIO 0.67; BILIRUBIN,INDIRECT 0.3 mg/dl (0-1.1); BILIRUBIN,TOTAL 0.3 mg/dl (0.2-1.3); CALCIUM 7.7 mg/dl (8.4-10.2); CREATININE 0.62 mg/dl (0.61-1.24); MAGNESIUM 1.6 mg/dl (1.7-2.5); PHOSPHORUS 3.8 mg/dl (2.5-4.9); POTASSIUM 3.2 mmol/L (3.5-5.1); TOTAL PROTEIN 5.2 g/dl (6.1-8.1)
[2017-02-22] MEDS: DOCUSATE SODIUM 10 MG/ML (10ML CUP) NGT SCH ×2 (08:39→21:00)
[2017-02-22] MEDS: VANCOMYCIN 1.25 GM in SOD CHLORIDE 0.9% 250 ML IVPB SCH (08:39)
--- NOTE | 2017-02-22 09:02 | RADRPT ---
PROCEDURE: Chest Radiograph. CLINICAL INDICATION: Pneumonia. CHF. TECHNIQUE: Single frontal chest radiograph. COMPARISON: Chest radiograph 02/21/2017 FINDINGS: A nasogastric tube and right upper extremity PICC remain in stable and radiographically appropriate position. There is mild improved aeration of the bilateral lung farias with persistent patchy bilat eral infiltrates or edema. Small bilateral pleural effusions are likely present. The bones are i ntact. IMPRESSION: 1. Mild improved aeration of the bilateral lung farias. 2. Otherwise stable radiographic appearance of chest compared to 02/21/2017. RPTAT: [facility] .Patrick Rodriguez MD, MD Date Time Electronically viewed and signed by .Patrick Rodriguez MD, on 02/22/2017 09:02 .B/
[2017-02-22 09:06] LABS: AADO2 Arterial 111.7 mmHg (7.0-24.0); Allen Test ACCEPTAB; Arterial Base Excess 9.2 mmol/L (-3.0-3); Arterial COHb 0.3 % (0.0-3.0); Arterial MetHb 0.4 % (0.0-1.5); Arterial Total Hemglobin 8.2 g/dl (12.0-18.0); MODE NASAL CANNULA
[2017-02-22] MEDS ORDERED: POTASSIUM CHLORIDE (SR) 20 MEQ TAB PO STA (09:26)
[2017-02-22] MEDS ORDERED: MAGNESIUM SULFATE 2 GM/50 ML 50 ML IVPB ONE (09:30)
[2017-02-22] MEDS ORDERED: POTASSIUM CHLORIDE 20 MEQ POWDER FOR ORAL SOLN PO SCH (09:31)
--- NOTE | 2017-02-22 10:49 | CONS ---
Date/Time of Note Date/Time of Note DATE: 02/22/17 TIME: 10:49 Consult Date/Type/Reason Admit Date/Time Feb 01, 2017 at 03:10 Type of Consultation: pulmonary ICU Ordering Provider: VINCE PADGETT Subjective Patient comfortable this morning Confused and disoriented No respiratory distress Objective Vital Signs Date Time Temp Pulse Resp B/P Pulse Ox O2 Delivery O2 Flow Rate FiO2 02/22/17 09:00 114 30 120/76 94 Nasal Cannula 3.0 02/22/17 07:00 99.0 02/20/17 10:55 40 Intake and Output 02/21/17 02/21/17 02/22/17 15:00 23:00 07:00 Intake Total 1240.00 ml 936.66 ml 663.33 ml Output Total 1570 ml 1340 ml 1080 ml Balance -330.00 ml -403.34 ml -416.67 ml Exam PHYSICAL EXAMINATION GENERAL chronically ill-appearing gentleman nasal cannula oxygen VITAL SIGNS: see below. HEENT: Pupils equal, round, and reactive to light. CARDIAC: S1, S2, CHEST: Diminished air entry bilaterally. ABDOMEN: Mildly distended. Distal bowel sounds no guarding or rebound EXTREMITIES: No cyanosis, clubbing edema +2 NEUROLOGIC: Generalized weakness Results/Medications Result Diagram: 02/22/17 0500 02/22/17 0500 Results 24 hrs Laboratory Tests Test 02/21/17 12:37 02/21/17 17:21 02/21/17 20:46 02/22/17 01:01 Bedside Glucose 112 99 113 103 Test 02/22/17 04:57 02/22/17 05:00 02/22/17 07:57 02/22/17 08:40 Bedside Glucose 112 120 White Blood Count 12.9 H Red Blood Count 2.59 L Hemoglobin 7.3 L Hematocrit 22.7 L Mean Corpuscular Volume 87.6 Mean Corpuscular Hemoglobin 28.2 L Mean Corpuscular Hemoglobin Concent 32.2 Red Cell Distribution Width 14.3 Platelet Count 386 Mean Platelet Volume 11.4 H Neutrophils % 84.0 H Lymphocytes % 5.4 L Monocytes % 7.0 Eosinophils % 2.2 Basophils % 0.2 Nucleated Red Blood Cells % 0.0 Neutrophils # 10.8 H Lymphocytes # 0.7 L Monocytes # 0.9 Eosinophils # 0.3 Basophils # 0.0 Nucleated Red Blood Cells # 0.0 Prothrombin Time 15.3 H Prothrombin Time Ratio 1.2 INR International Normalized Ratio 1.20 Activated Partial Thromboplast Time 42.1 H Sodium Level 134 L Potassium Level 3.2 L Chloride Level 98 Carbon Dioxide Level 32 H Anion Gap 7 L Blood Urea Nitrogen 14 Creatinine 0.62 Glucose Level 101 Calcium Level 7.7 L Phosphorus Level 3.8 Magnesium Level 1.6 L Total Bilirubin 0.3 Direct Bilirubin 0.00 Indirect Bilirubin 0.3 Aspartate Amino Transf (AST/SGOT) 30 Alanine Aminotransferase (ALT/SGPT) 30 Alkaline Phosphatase 101 B-Type Natriuretic Peptide 508 H Total Protein 5.2 L Albumin 2.1 L Globulin 3.10 Albumin/Globulin Ratio 0.67 Blood Gas Specimen Source Blood arterial Arterial Blood Date Drawn 02/22/2017 8:20:34 AM Arterial Blood pH (Temp corrected) 7.561 *H Arterial Blood pCO2 (Temp correct) 36.5 Arterial Blood pO2 (Temp corrected) 59.3 L Arterial Blood HCO3 32.0 H Arterial Blood Base Excess 9.2 H Arterial Blood Oxygen Saturation 90.6 L Raffy Test ACCEPTAB Arterial Blood Gas Puncture Site Right Radial Arterial Blood Carboxyhemoglobin 0.3 Arterial Blood Methemoglobin 0.4 Blood Gas A-a O2 Differential 111.7 H Oxyhemoglobin Percent 90.0 L Total Hemoglobin 8.2 L Blood Gas Temperature 37.0 Blood Gas Modality NASAL CANNULA FiO2 30.0 Blood Gas Critical Value Read Back Shelli BAE RN Blood Gas Notified Whom JLD Blood Gas Notified Time 02/22/2017 9:06:15 AM Medications Current Medications Pantoprazole (Protonix Iv) 40 mg DAILY@06 IV Last administered on 02/22/17 05: 49; Admin Dose 40 MG; Start 02/01/17 at 06:00 Acetaminophen/ Hydrocodone Bitart ([place] (5/325)) 1 tab Q4H PRN PO PAIN LEVEL 4 -7 Last administered on 02/09/17 18:48; Admin Dose 1 TAB; Start 02/01/17 at 20: 30 Acetaminophen/ Hydrocodone Bitart ([place] (5/325)) 2 tab Q4H PRN PO PAIN LEVEL 7 -10; Start 02/01/17 at 20:30 Bisacodyl (Dulcolax Supp) 10 mg BID PRN [place] CONSTIPATION; Start 02/01/17 at 20: 30 Sodium Biphosphate/ Sodium Phosphate 133 ml 133 ml BID PRN [place] CONSTIPATION; Start 02/01/17 at 20:30 Metronidazole 100 ml @ 100 mls/hr Q8 IVPB Last administered on 02/22/17 05:39 ; Admin Dose 100 MLS/HR; Start 02/04/17 at 15:00 Meropenem (Merrem 500 Mg/ 100 ml (Pmx)) 100 ml @ 200 mls/hr Q8 IVPB Last administered on 02/22/17 05:39; Admin Dose 200 MLS/HR; Start 02/05/17 at 22:00 Acetaminophen (Tylenol Liquid) 650 mg Q4H PRN GTB PAIN AND OR ELEVATED TEMP Last administered on 02/20/17 01:22; Admin Dose 650 MG; Start 02/05/17 at 18:30 Salmeterol Xinafoate/ Fluticasone (Advair 250/50 Diskus) 1 inh BID INH Last administered on 02/12/17 09:03; Admin Dose 1 INH; Start 02/07/17 at 11:00; Status Future Hold IV Flush (NS 10 ml) 10 ml PRN PRN IV IV PROTOCOL; Start 02/07/17 at 14:30 Diphenhydramine HCl 25 mg 25 mg Q6H PRN IV itching ; Start 02/07/17 at 20:00 Ondansetron HCl/ Sodium Chloride (Zofran Inj/NS) 54 ml @ 216 mls/hr Q6H PRN IV NAUSEA AND/OR VOMITING; Start 02/09/17 at 11:30 Prednisone (Prednisone) 40 mg DAILY PO Last administered on 02/12/17 09:03; Admin Dose 40 MG; Start 02/11/17 at 09:00; Status Future Hold Lorazepam (Ativan) 1 mg Q2 PRN IV AGITATION/ANXIETY Last administered on 17:31; Admin Dose 1 MG; Start 02/10/17 at 17:00 Lorazepam (Ativan) 1 mg Q1HWA PRN IM AGITATION/ANXIETY; Start 02/10/17 at 19:00 Trimethobenzamide HCl 200 mg 200 mg Q6H PRN IM NAUSEA AND/OR VOMITING; Start at 19:30 Norepinephrine/ Dextrose (Levophed/D5W) 500 ml @ 1.87 mls/hr TITRATE IV ; Start 02/13/17 at 12:00; Status Future hold Diagnostic Test (Pha) 1 ea 1 ea Q4 XX Last administered on 02/22/17 08:40; Admin Dose 1 EA; Start 02/14/17 at 17:00 Caspofungin/ Sodium Chloride (Cancidas/NS) 250 ml @ 250 mls/hr Q24H IVPB Last administered on 02/21/17 11:51; Admin Dose 250 MLS/HR; Start 02/16/17 at 12:00 Furosemide (Lasix) 20 mg Q6 IV Last administered on 02/22/17 05:40; Admin Dose 20 MG; Start 02/18/17 at 00:00 Morphine Sulfate (morphine) 2 mg Q4H PRN IV pain Last administered on 02/21/17 19:56; Admin Dose 2 MG; Start 02/20/17 at 18:30 Docusate Sodium 100 mg 100 mg BID NGT Last administered on 02/22/17 08:39; Admin Dose 100 MG; Start 02/20/17 at 21:00 Vancomycin HCl 1.25 gm/Sodium Chloride 250 ml @ 83.333 mls/ hr Q12H IVPB Last administered on 02/22/17 08:39; Admin Dose 83.333 MLS/HR; Start 02/21/17 at 09:00 Magnesium Sulfate (Magnesium Sulfate 2 Gm/50 ml) 50 ml @ 25 mls/hr ONCE ONCE IVPB Last administered on 02/22/17 09:38; Admin Dose 25 MLS/HR; Start 02/22/17 at 09:30; Stop 02/22/17 at 11:29 Assessment/Plan Chief Complaint/Hosp Course Assessment 1. Crohn's disease with perforation of sigmoid colon and sepsis status post arthroscopic sigmoid colectomy and end colostomy with lysis of adhesions 2. Resolved metabolic acidosis with septic shock 3. Improved electrolyte imbalance 4. Hypoxemic respiratory failure possibly underlying pleural effusions with compressive atelectasis now extubated, probable left pleural effusion 5. Thrombocytopenia improved 6. Postop anemia 7. Encephalopathy likely toxic metabolic Plan 1. Withdrawal pain meds possible 2. Continue incentive spirometry, likely need thoracentesis of left pleural effusion tomorrow 3. Continue surgical wound care 4. Continue broad-spectrum antibiotic coverage 5. Patient still has significant aspiration risk discussed with speech therapy 6. DVT GI prophylaxis Disposition Continue ICU care Problems: RAMON DOUGLAS MD, FCCP February 22, 2017 10:49
--- NOTE | 2017-02-22 11:44 | PN ---
Date/Time of Note Date/Time of Note DATE: 02/22/17 TIME: 11:40 Assessment/Plan VTE Prophylaxis VTE Prophylaxis Intervention: heparin Lines/Catheters IV Catheter Type (from Nrs): PICC Line Central line still needed: Yes Urinary Cath still in place: Yes Reason Cath still needed: urinary retention Assessment/Plan Chief Complaint/Hosp Course Assessment/Plan: 46M with: 1. Perforated sigmoid colon 2/2 Severe Crohn's colitis * S/p Urgent Open Cronin's procedure with end colostomy, liver biopsy and abdominal lavage 02/01/17P * S/p post operative paracolic abscess drained via CT 02/14/[address] * S/p Exploration of abdomen through recent laparotomy site with closure of fascia done 02/15/17 for Fascia dehiscence 2. Recurrent Resp failure: Extubated then reintubated 02/13: currently vent dependent 3. Exacerbation of Crohn's disease with acute colitis and diarrhea Cultures growing ecoli / proteus / enterococcus 4. Multifocal PNA + Mook Pleural effusions - Effusions likely hydrostatic from hypoalbuminemia - monitor 5. Severe Sepsis with lactic acidosis 2/2 severe colitis / PNA 6. S/p Systemic shock (hypovolemic +septic) 7. TPN therapy for low prealbumin + tube feeds - Gentle diuresis with daily albumin 8. Hx of heavy alcohol and tobacco use just until admission - monitor 9. Probable underlying COPD and Cirrhosis based on hx which explains hypoalbuminemia and anasarca 10. Severe recurrent anemia likely 2/2 occult blood loss from multiple sources : PRN transfusions 11. Hypomagnesemia - replete PLAN: * Continue tube feeds * Continue post Op wound care/ electrolyte management * Continue Wound care and wound Vac * ID managing abx and antifungal * Replace electrolytes as needed * PRN pain control/ antiemetics/ antipyretics/ supportive care * Low dose heparin for prophylaxis CRITICAL CARE TIME: 45 mins Problems: Subjective 24 Hr Interval Summary Free Text/Dictation Pt still confused. Exam/Review of Systems Vital Signs Vitals Vital Signs Date Time Temp Pulse Resp B/P Pulse Ox O2 Delivery O2 Flow Rate FiO2 02/22/17 11:00 107 26 119/83 93 Nasal Cannula 3.0 02/22/17 07:00 99.0 02/20/17 10:55 40 Intake and Output 02/21/17 02/21/17 02/22/17 15:00 23:00 07:00 Intake Total 1240.00 ml 936.66 ml 663.33 ml Output Total 1570 ml 1340 ml 1080 ml Balance -330.00 ml -403.34 ml -416.67 ml Exam Constitutional: awake, confused, No distress Psych: confusion Head: normocephalic Eyes: PERRL, icteric ENMT: other (NGT) Respiratory: congested cough, diminished breath sounds, No wheezing Cardiovascular: regular rate and rhythm, No murmurs/extra sounds Gastrointestinal: distended (mildly), firm (mildly), other (midline surgical dressing with wound vac / L sided colostomy and drain / colostomy has dark green fluidy stool), soft Genitourinary - Male: other (significant scrotal and penile edema) Musculoskeletal: swelling (generalized severe anasarca) Extremities: pitting pedal edema Neurological: confused, lethargic Results Result Diagram: 02/22/17 0500 02/22/17 0500 Results 24 hrs Laboratory Tests Test 02/21/17 12:37 02/21/17 17:21 02/21/17 20:46 02/22/17 01:01 Bedside Glucose 112 99 113 103 Test 02/22/17 04:57 02/22/17 05:00 02/22/17 07:57 02/22/17 08:40 Bedside Glucose 112 120 White Blood Count 12.9 H Red Blood Count 2.59 L Hemoglobin 7.3 L Hematocrit 22.7 L Mean Corpuscular Volume 87.6 Mean Corpuscular Hemoglobin 28.2 L Mean Corpuscular Hemoglobin Concent 32.2 Red Cell Distribution Width 14.3 Platelet Count 386 Mean Platelet Volume 11.4 H Neutrophils % 84.0 H Lymphocytes % 5.4 L Monocytes % 7.0 Eosinophils % 2.2 Basophils % 0.2 Nucleated Red Blood Cells % 0.0 Neutrophils # 10.8 H Lymphocytes # 0.7 L Monocytes # 0.9 Eosinophils # 0.3 Basophils # 0.0 Nucleated Red Blood Cells # 0.0 Prothrombin Time 15.3 H Prothrombin Time Ratio 1.2 INR International Normalized Ratio 1.20 Activated Partial Thromboplast Time 42.1 H Sodium Level 134 L Potassium Level 3.2 L Chloride Level 98 Carbon Dioxide Level 32 H Anion Gap 7 L Blood Urea Nitrogen 14 Creatinine 0.62 Glucose Level 101 Calcium Level 7.7 L Phosphorus Level 3.8 Magnesium Level 1.6 L Total Bilirubin 0.3 Direct Bilirubin 0.00 Indirect Bilirubin 0.3 Aspartate Amino Transf (AST/SGOT) 30 Alanine Aminotransferase (ALT/SGPT) 30 Alkaline Phosphatase 101 B-Type Natriuretic Peptide 508 H Total Protein 5.2 L Albumin 2.1 L Globulin 3.10 Albumin/Globulin Ratio 0.67 Blood Gas Specimen Source Blood arterial Arterial Blood Date Drawn 02/22/2017 8:20:34 AM Arterial Blood pH (Temp corrected) 7.561 *H Arterial Blood pCO2 (Temp correct) 36.5 Arterial Blood pO2 (Temp corrected) 59.3 L Arterial Blood HCO3 32.0 H Arterial Blood Base Excess 9.2 H Arterial Blood Oxygen Saturation 90.6 L Raffy Test ACCEPTAB Arterial Blood Gas Puncture Site Right Radial Arterial Blood Carboxyhemoglobin 0.3 Arterial Blood Methemoglobin 0.4 Blood Gas A-a O2 Differential 111.7 H Oxyhemoglobin Percent 90.0 L Total Hemoglobin 8.2 L Blood Gas Temperature 37.0 Blood Gas Modality NASAL CANNULA FiO2 30.0 Blood Gas Critical Value Read Back Shelli BAE RN Blood Gas Notified Whom [place] Blood Gas Notified Time 02/22/2017 9:06:15 AM Medications Medications Current Medications Pantoprazole (Protonix Iv) 40 mg DAILY@06 IV Last administered on 02/22/17 05: 49; Admin Dose 40 MG; Start 02/01/17 at 06:00 Acetaminophen/ Hydrocodone Bitart ([place] (5/325)) 1 tab Q4H PRN PO PAIN LEVEL 4 -7 Last administered on 02/09/17 18:48; Admin Dose 1 TAB; Start 02/01/17 at 20: 30 Acetaminophen/ Hydrocodone Bitart ([place] (5/325)) 2 tab Q4H PRN PO PAIN LEVEL 7 -10; Start 02/01/17 at 20:30 Bisacodyl (Dulcolax Supp) 10 mg BID PRN [place] CONSTIPATION; Start 02/01/17 at 20: 30 Sodium Biphosphate/ Sodium Phosphate 133 ml 133 ml BID PRN [place] CONSTIPATION; Start 02/01/17 at 20:30 Metronidazole 100 ml @ 100 mls/hr Q8 IVPB Last administered on 02/22/17 05:39 ; Admin Dose 100 MLS/HR; Start 02/04/17 at 15:00 Meropenem (Merrem 500 Mg/ 100 ml (Pmx)) 100 ml @ 200 mls/hr Q8 IVPB Last administered on 02/22/17 05:39; Admin Dose 200 MLS/HR; Start 02/05/17 at 22:00 Acetaminophen (Tylenol Liquid) 650 mg Q4H PRN GTB PAIN AND OR ELEVATED TEMP Last administered on 02/20/17 01:22; Admin Dose 650 MG; Start 02/05/17 at 18:30 Salmeterol Xinafoate/ Fluticasone (Advair 250/50 Diskus) 1 inh BID INH Last administered on 02/12/17 09:03; Admin Dose 1 INH; Start 02/07/17 at 11:00; Status Future Hold IV Flush (NS 10 ml) 10 ml PRN PRN IV IV PROTOCOL; Start 02/07/17 at 14:30 Diphenhydramine HCl 25 mg 25 mg Q6H PRN IV itching ; Start 02/07/17 at 20:00 Ondansetron HCl/ Sodium Chloride (Zofran Inj/NS) 54 ml @ 216 mls/hr Q6H PRN IV NAUSEA AND/OR VOMITING; Start 02/09/17 at 11:30 Prednisone (Prednisone) 40 mg DAILY PO Last administered on 02/12/17 09:03; Admin Dose 40 MG; Start 02/11/17 at 09:00; Status Future Hold Lorazepam (Ativan) 1 mg Q2 PRN IV AGITATION/ANXIETY Last administered on 17:31; Admin Dose 1 MG; Start 02/10/17 at 17:00 Lorazepam (Ativan) 1 mg Q1HWA PRN IM AGITATION/ANXIETY; Start 02/10/17 at 19:00 Trimethobenzamide HCl 200 mg 200 mg Q6H PRN IM NAUSEA AND/OR VOMITING; Start at 19:30 Norepinephrine/ Dextrose (Levophed/D5W) 500 ml @ 1.87 mls/hr TITRATE IV ; Start 02/13/17 at 12:00; Status Future hold Diagnostic Test (Pha) 1 ea 1 ea Q4 XX Last administered on 02/22/17 08:40; Admin Dose 1 EA; Start 02/14/17 at 17:00 Caspofungin/ Sodium Chloride (Cancidas/NS) 250 ml @ 250 mls/hr Q24H IVPB Last administered on 02/21/17 11:51; Admin Dose 250 MLS/HR; Start 02/16/17 at 12:00 Furosemide (Lasix) 20 mg Q6 IV Last administered on 02/22/17 05:40; Admin Dose 20 MG; Start 02/18/17 at 00:00 Morphine Sulfate (morphine) 2 mg Q4H PRN IV pain Last administered on 02/21/17 19:56; Admin Dose 2 MG; Start 02/20/17 at 18:30 Docusate Sodium 100 mg 100 mg BID NGT Last administered on 02/22/17 08:39; Admin Dose 100 MG; Start 02/20/17 at 21:00 Vancomycin HCl/ Sodium Chloride (Vancocin/NS) 250 ml @ 83.333 mls/ hr Q12H IVPB Last administered on 02/22/17 08:39; Admin Dose 83.333 MLS/HR; Start at 09:00 SUSAN SANCHEZ February 22, 2017 11:44
[2017-02-22] MEDS: CASPOFUNGIN 50 MG in SOD CHLORIDE 0.9% 250 ML IVPB SCH (12:22)
--- NOTE | 2017-02-22 13:03 | CONS ---
Date/Time of Note Date/Time of Note DATE: 02/22/17 TIME: 13:01 Assessment/Plan Assessment/Plan Chief Complaint/Hosp Course SUBJECTIVE: No acute changes overnight. Awake, confused, tolerates TF, no fevers, nad INDWELLINGS: NG tube, Zeng catheter, left-sided abdominal drainage catheter, PICC ANTIMICROBIALS: 1. Vancomycin. 2. Cancidas. 3. Meropenem. 4. Flagyl. PHYSICAL EXAMINATION: GENERAL: This is a well-developed, middle-aged white man who is awake, in no distress. HEENT: Head atraumatic, normocephalic. Sclerae anicteric. Buccal mucosa dry. NECK: Supple. CHEST: Rise symmetrical. Breath sounds clear, diminished to bases. HEART: S1, S2. ABDOMEN: Soft. Mid abdominal dressing to wound VAC. EXTREMITIES: Without cyanosis. Bilateral edema, dependent. SKIN: Positive for anasarca. ASSESSMENT: 1. Sepsis 2. Healthcare-associated pneumonia. 3. History of Crohn's disease. 4. Status post perforated viscus repair on 02/01/2017 complicated by intra- abdominal abscess, status post drainage on 02/14/2017. 5. Status post exploration of the abdomen with abdominal lavage on 02/15/2017. 6. Anemia. PLAN: The patient remains stable post extubation. Continue abx, aspiration precautions, dc Flagyl NATHANIEL staff Problems: Consultation Date/Type/Reason Admit Date/Time Feb 01, 2017 at 03:10 Initial Consult Date 02/02/17 Type of Consultation: ID Referring Provider: VINCE PADGETT Exam/Review of Systems Vital Signs Vitals Vital Signs Date Time Temp Pulse Resp B/P Pulse Ox O2 Delivery O2 Flow Rate FiO2 02/22/17 12:00 98.8 107 28 117/80 94 Nasal Cannula 3.0 02/20/17 10:55 40 Intake and Output 02/21/17 02/21/17 02/22/17 15:00 23:00 07:00 Intake Total 1240.00 ml 936.66 ml 663.33 ml Output Total 1570 ml 1340 ml 1080 ml Balance -330.00 ml -403.34 ml -416.67 ml Results Result Diagram: 02/22/17 0500 02/22/17 0500 Results 24 hrs Laboratory Tests Test 02/21/17 17:21 02/21/17 20:46 02/22/17 01:01 02/22/17 04:57 Bedside Glucose 99 113 103 112 Test 02/22/17 05:00 02/22/17 07:57 02/22/17 08:40 White Blood Count 12.9 H Red Blood Count 2.59 L Hemoglobin 7.3 L Hematocrit 22.7 L Mean Corpuscular Volume 87.6 Mean Corpuscular Hemoglobin 28.2 L Mean Corpuscular Hemoglobin Concent 32.2 Red Cell Distribution Width 14.3 Platelet Count 386 Mean Platelet Volume 11.4 H Neutrophils % 84.0 H Lymphocytes % 5.4 L Monocytes % 7.0 Eosinophils % 2.2 Basophils % 0.2 Nucleated Red Blood Cells % 0.0 Neutrophils # 10.8 H Lymphocytes # 0.7 L Monocytes # 0.9 Eosinophils # 0.3 Basophils # 0.0 Nucleated Red Blood Cells # 0.0 Prothrombin Time 15.3 H Prothrombin Time Ratio 1.2 INR International Normalized Ratio 1.20 Activated Partial Thromboplast Time 42.1 H Sodium Level 134 L Potassium Level 3.2 L Chloride Level 98 Carbon Dioxide Level 32 H Anion Gap 7 L Blood Urea Nitrogen 14 Creatinine 0.62 Glucose Level 101 Calcium Level 7.7 L Phosphorus Level 3.8 Magnesium Level 1.6 L Total Bilirubin 0.3 Direct Bilirubin 0.00 Indirect Bilirubin 0.3 Aspartate Amino Transf (AST/SGOT) 30 Alanine Aminotransferase (ALT/SGPT) 30 Alkaline Phosphatase 101 B-Type Natriuretic Peptide 508 H Total Protein 5.2 L Albumin 2.1 L Globulin 3.10 Albumin/Globulin Ratio 0.67 Blood Gas Specimen Source Blood arterial Arterial Blood Date Drawn 02/22/2017 8:20:34 AM Arterial Blood pH (Temp corrected) 7.561 *H Arterial Blood pCO2 (Temp correct) 36.5 Arterial Blood pO2 (Temp corrected) 59.3 L Arterial Blood HCO3 32.0 H Arterial Blood Base Excess 9.2 H Arterial Blood Oxygen Saturation 90.6 L Raffy Test ACCEPTAB Arterial Blood Gas Puncture Site Right Radial Arterial Blood Carboxyhemoglobin 0.3 Arterial Blood Methemoglobin 0.4 Blood Gas A-a O2 Differential 111.7 H Oxyhemoglobin Percent 90.0 L Total Hemoglobin 8.2 L Blood Gas Temperature 37.0 Blood Gas Modality NASAL CANNULA FiO2 30.0 Blood Gas Critical Value Read Back Shelli BAE RN Blood Gas Notified Whom JLD Blood Gas Notified Time 02/22/2017 9:06:15 AM Bedside Glucose 120 Medications Medications Current Medications Pantoprazole (Protonix Iv) 40 mg DAILY@06 IV Last administered on 02/22/17 05: 49; Admin Dose 40 MG; Start 02/01/17 at 06:00 Acetaminophen/ Hydrocodone Bitart (Flora (5/325)) 1 tab Q4H PRN PO PAIN LEVEL 4 -7 Last administered on 02/09/17 18:48; Admin Dose 1 TAB; Start 02/01/17 at 20: 30 Acetaminophen/ Hydrocodone Bitart (Flora (5/325)) 2 tab Q4H PRN PO PAIN LEVEL 7 -10; Start 02/01/17 at 20:30 Bisacodyl (Dulcolax Supp) 10 mg BID PRN [place] CONSTIPATION; Start 02/01/17 at 20: 30 Sodium Biphosphate/ Sodium Phosphate 133 ml 133 ml BID PRN [place] CONSTIPATION; Start 02/01/17 at 20:30 Metronidazole 100 ml @ 100 mls/hr Q8 IVPB Last administered on 02/22/17 05:39 ; Admin Dose 100 MLS/HR; Start 02/04/17 at 15:00 Meropenem (Merrem 500 Mg/ 100 ml (Pmx)) 100 ml @ 200 mls/hr Q8 IVPB Last administered on 02/22/17 05:39; Admin Dose 200 MLS/HR; Start 02/05/17 at 22:00 Acetaminophen (Tylenol Liquid) 650 mg Q4H PRN GTB PAIN AND OR ELEVATED TEMP Last administered on 02/20/17 01:22; Admin Dose 650 MG; Start 02/05/17 at 18:30 Salmeterol Xinafoate/ Fluticasone (Advair 250/50 Diskus) 1 inh BID INH Last administered on 02/12/17 09:03; Admin Dose 1 INH; Start 02/07/17 at 11:00; Status Future Hold IV Flush (NS 10 ml) 10 ml PRN PRN IV IV PROTOCOL; Start 02/07/17 at 14:30 Diphenhydramine HCl 25 mg 25 mg Q6H PRN IV itching ; Start 02/07/17 at 20:00 Ondansetron HCl/ Sodium Chloride (Zofran Inj/NS) 54 ml @ 216 mls/hr Q6H PRN IV NAUSEA AND/OR VOMITING; Start 02/09/17 at 11:30 Prednisone (Prednisone) 40 mg DAILY PO Last administered on 02/12/17 09:03; Admin Dose 40 MG; Start 02/11/17 at 09:00; Status Future Hold Lorazepam (Ativan) 1 mg Q2 PRN IV AGITATION/ANXIETY Last administered on 17:31; Admin Dose 1 MG; Start 02/10/17 at 17:00 Lorazepam (Ativan) 1 mg Q1HWA PRN IM AGITATION/ANXIETY; Start 02/10/17 at 19:00 Trimethobenzamide HCl 200 mg 200 mg Q6H PRN IM NAUSEA AND/OR VOMITING; Start at 19:30 Norepinephrine 16 mg/Dextrose 500 ml @ 1.87 mls/hr TITRATE IV ; Start 02/13/17 at 12:00; Status Future hold Caspofungin/ Sodium Chloride (Cancidas/NS) 250 ml @ 250 mls/hr Q24H IVPB Last administered on 02/22/17 12:22; Admin Dose 250 MLS/HR; Start 02/16/17 at 12:00 Furosemide (Lasix) 20 mg Q6 IV Last administered on 02/22/17 12:04; Admin Dose 20 MG; Start 02/18/17 at 00:00 Morphine Sulfate (morphine) 2 mg Q4H PRN IV pain Last administered on 02/21/17 19:56; Admin Dose 2 MG; Start 02/20/17 at 18:30 Docusate Sodium 100 mg 100 mg BID NGT Last administered on 02/22/17 08:39; Admin Dose 100 MG; Start 02/20/17 at 21:00 Vancomycin HCl/ Sodium Chloride (Vancocin/NS) 250 ml @ 83.333 mls/ hr Q12H IVPB Last administered on 02/22/17 08:39; Admin Dose 83.333 MLS/HR; Start at 09:00 Miscellaneous Information (*Rx Drug Level Order Reminder*) 1 ONCE ONCE XX ; Start 02/22/17 at 20:00; Stop 02/22/17 at 20:01 THOMAS ELLIS NP February 22, 2017 13:03
[2017-02-22] MEDS: LORAZEPAM 2 MG INJ IV PRN ×2 (13:17→16:47)
--- NOTE | 2017-02-22 14:58 | CONS ---
Date/Time of Note Date/Time of Note DATE: 02/22/17 TIME: 14:57 Assessment/Plan Assessment/Plan Additional Assessment/Plan Perforated colon status post surgery Severe sepsis Respiratory failure-extubated Low normal ejection fraction 50% Acute decompensated diastolic congestive heart failure Crohn's disease Acute blood loss anemia -Continue diuretics as blood pressure and renal function permits. Supplement potassium to maintain above 4.0 and magnesium above 2.0. Consultation Date/Type/Reason Admit Date/Time Feb 01, 2017 at 03:10 Initial Consult Date 02/02/17 Type of Consultation: cv Referring Provider: VINCE PADGETT 24 HR Interval Summary Free Text/Dictation No new cardiac issues as per nursing staff Exam/Review of Systems Vital Signs Vitals Vital Signs Date Time Temp Pulse Resp B/P Pulse Ox O2 Delivery O2 Flow Rate FiO2 02/22/17 14:00 109 28 123/79 96 Nasal Cannula 3.0 02/22/17 12:00 98.8 02/20/17 10:55 40 Intake and Output 02/21/17 02/21/17 02/22/17 15:00 23:00 07:00 Intake Total 1240.00 ml 936.66 ml 663.33 ml Output Total 1570 ml 1340 ml 1080 ml Balance -330.00 ml -403.34 ml -416.67 ml Exam Alert but confused at times, no apparent distress, following commands Head: normocephalic Respiratory: other (Coarse breath sounds bilaterally, no wheezing) Cardiovascular: other (S1-S2 heard), regular rate and rhythm Gastrointestinal: bowel sounds, non-tender, soft Extremities: edema Results Result Diagram: 02/22/17 0500 02/22/17 0500 Results 24 hrs Laboratory Tests Test 02/21/17 17:21 02/21/17 20:46 02/22/17 01:01 02/22/17 04:57 Bedside Glucose 99 113 103 112 Test 02/22/17 05:00 02/22/17 07:57 02/22/17 08:40 White Blood Count 12.9 H Red Blood Count 2.59 L Hemoglobin 7.3 L Hematocrit 22.7 L Mean Corpuscular Volume 87.6 Mean Corpuscular Hemoglobin 28.2 L Mean Corpuscular Hemoglobin Concent 32.2 Red Cell Distribution Width 14.3 Platelet Count 386 Mean Platelet Volume 11.4 H Neutrophils % 84.0 H Lymphocytes % 5.4 L Monocytes % 7.0 Eosinophils % 2.2 Basophils % 0.2 Nucleated Red Blood Cells % 0.0 Neutrophils # 10.8 H Lymphocytes # 0.7 L Monocytes # 0.9 Eosinophils # 0.3 Basophils # 0.0 Nucleated Red Blood Cells # 0.0 Prothrombin Time 15.3 H Prothrombin Time Ratio 1.2 INR International Normalized Ratio 1.20 Activated Partial Thromboplast Time 42.1 H Sodium Level 134 L Potassium Level 3.2 L Chloride Level 98 Carbon Dioxide Level 32 H Anion Gap 7 L Blood Urea Nitrogen 14 Creatinine 0.62 Glucose Level 101 Calcium Level 7.7 L Phosphorus Level 3.8 Magnesium Level 1.6 L Total Bilirubin 0.3 Direct Bilirubin 0.00 Indirect Bilirubin 0.3 Aspartate Amino Transf (AST/SGOT) 30 Alanine Aminotransferase (ALT/SGPT) 30 Alkaline Phosphatase 101 B-Type Natriuretic Peptide 508 H Total Protein 5.2 L Albumin 2.1 L Globulin 3.10 Albumin/Globulin Ratio 0.67 Blood Gas Specimen Source Blood arterial Arterial Blood Date Drawn 02/22/2017 8:20:34 AM Arterial Blood pH (Temp corrected) 7.561 *H Arterial Blood pCO2 (Temp correct) 36.5 Arterial Blood pO2 (Temp corrected) 59.3 L Arterial Blood HCO3 32.0 H Arterial Blood Base Excess 9.2 H Arterial Blood Oxygen Saturation 90.6 L Raffy Test ACCEPTAB Arterial Blood Gas Puncture Site Right Radial Arterial Blood Carboxyhemoglobin 0.3 Arterial Blood Methemoglobin 0.4 Blood Gas A-a O2 Differential 111.7 H Oxyhemoglobin Percent 90.0 L Total Hemoglobin 8.2 L Blood Gas Temperature 37.0 Blood Gas Modality NASAL CANNULA FiO2 30.0 Blood Gas Critical Value Read Back Shelli BAE RN Blood Gas Notified Whom SORAIDAD Blood Gas Notified Time 02/22/2017 9:06:15 AM Bedside Glucose 120 Medications Medications Current Medications Pantoprazole (Protonix Iv) 40 mg DAILY@06 IV Last administered on 02/22/17 05: 49; Admin Dose 40 MG; Start 02/01/17 at 06:00 Acetaminophen/ Hydrocodone Bitart ([place] (5/325)) 1 tab Q4H PRN PO PAIN LEVEL 4 -7 Last administered on 02/09/17 18:48; Admin Dose 1 TAB; Start 02/01/17 at 20: 30 Acetaminophen/ Hydrocodone Bitart ([place] (5/325)) 2 tab Q4H PRN PO PAIN LEVEL 7 -10; Start 02/01/17 at 20:30 Bisacodyl (Dulcolax Supp) 10 mg BID PRN [place] CONSTIPATION; Start 02/01/17 at 20: 30 Sodium Biphosphate/ Sodium Phosphate 133 ml 133 ml BID PRN [place] CONSTIPATION; Start 02/01/17 at 20:30 Meropenem (Merrem 500 Mg/ 100 ml (Pmx)) 100 ml @ 200 mls/hr Q8 IVPB Last administered on 02/22/17 14:03; Admin Dose 200 MLS/HR; Start 02/05/17 at 22:00 Acetaminophen (Tylenol Liquid) 650 mg Q4H PRN GTB PAIN AND OR ELEVATED TEMP Last administered on 02/20/17 01:22; Admin Dose 650 MG; Start 02/05/17 at 18:30 Salmeterol Xinafoate/ Fluticasone (Advair 250/50 Diskus) 1 inh BID INH Last administered on 02/12/17 09:03; Admin Dose 1 INH; Start 02/07/17 at 11:00; Status Future Hold IV Flush (NS 10 ml) 10 ml PRN PRN IV IV PROTOCOL; Start 02/07/17 at 14:30 Diphenhydramine HCl 25 mg 25 mg Q6H PRN IV itching ; Start 02/07/17 at 20:00 Ondansetron HCl/ Sodium Chloride (Zofran Inj/NS) 54 ml @ 216 mls/hr Q6H PRN IV NAUSEA AND/OR VOMITING; Start 02/09/17 at 11:30 Prednisone (Prednisone) 40 mg DAILY PO Last administered on 02/12/17 09:03; Admin Dose 40 MG; Start 02/11/17 at 09:00; Status Future Hold Lorazepam (Ativan) 1 mg Q2 PRN IV AGITATION/ANXIETY Last administered on 13:17; Admin Dose 1 MG; Start 02/10/17 at 17:00 Lorazepam (Ativan) 1 mg Q1HWA PRN IM AGITATION/ANXIETY; Start 02/10/17 at 19:00 Trimethobenzamide HCl 200 mg 200 mg Q6H PRN IM NAUSEA AND/OR VOMITING; Start at 19:30 Norepinephrine 16 mg/Dextrose 500 ml @ 1.87 mls/hr TITRATE IV ; Start 02/13/17 at 12:00; Status Future hold Caspofungin/ Sodium Chloride (Cancidas/NS) 250 ml @ 250 mls/hr Q24H IVPB Last administered on 02/22/17 12:22; Admin Dose 250 MLS/HR; Start 02/16/17 at 12:00 Furosemide (Lasix) 20 mg Q6 IV Last administered on 02/22/17 12:04; Admin Dose 20 MG; Start 02/18/17 at 00:00 Morphine Sulfate (morphine) 2 mg Q4H PRN IV pain Last administered on 02/21/17 19:56; Admin Dose 2 MG; Start 02/20/17 at 18:30 Docusate Sodium 100 mg 100 mg BID NGT Last administered on 02/22/17 08:39; Admin Dose 100 MG; Start 02/20/17 at 21:00 Vancomycin HCl/ Sodium Chloride (Vancocin/NS) 250 ml @ 83.333 mls/ hr Q12H IVPB Last administered on 02/22/17 08:39; Admin Dose 83.333 MLS/HR; Start at 09:00 Miscellaneous Information (*Rx Drug Level Order Reminder*) 1 ONCE ONCE XX ; Start 02/22/17 at 20:00; Stop 02/22/17 at 20:01 Keith Gandhi DO February 22, 2017 14:58
--- NOTE | 2017-02-22 16:53 | PN ---
Date/Time of Note Date/Time of Note DATE: 02/22/17 TIME: 16:51 Assessment/Plan VTE Prophylaxis VTE Prophylaxis Intervention: SCD's Lines/Catheters IV C[facility]ter Type (from [facility]): PICC Line Central line still needed: Yes Urinary Cath still in place: Yes Reason Cath still needed: urinary retention Assessment/Plan Assessment/Plan Perforated sigmoid colon * Laparoscopic exploration,open sigmoid colectomy with Deena end colostomy with liver biopsy segment V h/o Crohn's disease Thrombocytopenia Liver Cirrhosis Anemia Plan: Continue present management Will reevaluate for Crohn's disease once recovered from surgery Subjective 24 Hr Interval Summary Free Text/Dictation * Course reviewed with RN * patient seen and examined * extubayed ,but with confusion Exam/Review of Systems Vital Signs Vitals Vital Signs Date Time Temp Pulse Resp B/P Pulse Ox O2 Delivery O2 Flow Rate FiO2 02/22/17 16:00 110 02/22/17 16:00 99.1 24 129/81 96 Nasal Cannula 3.0 02/20/17 10:55 40 Intake and Output 02/21/17 02/21/17 02/22/17 15:00 23:00 07:00 Intake Total 1240.00 ml 936.66 ml 663.33 ml Output Total 1570 ml 1340 ml 1080 ml Balance -330.00 ml -403.34 ml -416.67 ml Exam Constitutional: alert, frail Neck: non-tender, supple Respiratory: clear to auscultation, normal air movement Cardiovascular: regular rate and rhythm Gastrointestinal: bowel sounds, non-tender, other (colostomy), soft Musculoskeletal: nl gait and stance Extremities: normal pulses Skin: nl turgor Results Result Diagram: 02/22/17 0500 02/22/17 0500 Results 24 hrs Laboratory Tests Test 02/21/17 17:21 02/21/17 20:46 02/22/17 01:01 02/22/17 04:57 Bedside Glucose 99 113 103 112 Test 02/22/17 05:00 02/22/17 07:57 02/22/17 08:40 White Blood Count 12.9 H Red Blood Count 2.59 L Hemoglobin 7.3 L Hematocrit 22.7 L Mean Corpuscular Volume 87.6 Mean Corpuscular Hemoglobin 28.2 L Mean Corpuscular Hemoglobin Concent 32.2 Red Cell Distribution Width 14.3 Platelet Count 386 Mean Platelet Volume 11.4 H Neutrophils % 84.0 H Lymphocytes % 5.4 L Monocytes % 7.0 Eosinophils % 2.2 Basophils % 0.2 Nucleated Red Blood Cells % 0.0 Neutrophils # 10.8 H Lymphocytes # 0.7 L Monocytes # 0.9 Eosinophils # 0.3 Basophils # 0.0 Nucleated Red Blood Cells # 0.0 Prothrombin Time 15.3 H Prothrombin Time Ratio 1.2 INR International Normalized Ratio 1.20 Activated Partial Thromboplast Time 42.1 H Sodium Level 134 L Potassium Level 3.2 L Chloride Level 98 Carbon Dioxide Level 32 H Anion Gap 7 L Blood Urea Nitrogen 14 Creatinine 0.62 Glucose Level 101 Calcium Level 7.7 L Phosphorus Level 3.8 Magnesium Level 1.6 L Total Bilirubin 0.3 Direct Bilirubin 0.00 Indirect Bilirubin 0.3 Aspartate Amino Transf (AST/SGOT) 30 Alanine Aminotransferase (ALT/SGPT) 30 Alkaline Phosphatase 101 B-Type Natriuretic Peptide 508 H Total Protein 5.2 L Albumin 2.1 L Globulin 3.10 Albumin/Globulin Ratio 0.67 Blood Gas Specimen Source Blood arterial Arterial Blood Date Drawn 02/22/2017 8:20:34 AM Arterial Blood pH (Temp corrected) 7.561 *H Arterial Blood pCO2 (Temp correct) 36.5 Arterial Blood pO2 (Temp corrected) 59.3 L Arterial Blood HCO3 32.0 H Arterial Blood Base Excess 9.2 H Arterial Blood Oxygen Saturation 90.6 L Raffy Test ACCEPTAB Arterial Blood Gas Puncture Site Right Radial Arterial Blood Carboxyhemoglobin 0.3 Arterial Blood Methemoglobin 0.4 Blood Gas A-a O2 Differential 111.7 H Oxyhemoglobin Percent 90.0 L Total Hemoglobin 8.2 L Blood Gas Temperature 37.0 Blood Gas Modality NASAL CANNULA FiO2 30.0 Blood Gas Critical Value Read Back Shelli BAE RN Blood Gas Notified Whom SORAIDAD Blood Gas Notified Time 02/22/2017 9:06:15 AM Bedside Glucose 120 Medications Medications Current Medications Pantoprazole (Protonix Iv) 40 mg DAILY@06 IV Last administered on 02/22/17 05: 49; Admin Dose 40 MG; Start 02/01/17 at 06:00 Acetaminophen/ Hydrocodone Bitart ([place] (5/325)) 1 tab Q4H PRN PO PAIN LEVEL 4 -7 Last administered on 02/09/17 18:48; Admin Dose 1 TAB; Start 02/01/17 at 20: 30 Acetaminophen/ Hydrocodone Bitart ([place] (5/325)) 2 tab Q4H PRN PO PAIN LEVEL 7 -10; Start 02/01/17 at 20:30 Bisacodyl (Dulcolax Supp) 10 mg BID PRN [place] CONSTIPATION; Start 02/01/17 at 20: 30 Sodium Biphosphate/ Sodium Phosphate 133 ml 133 ml BID PRN [place] CONSTIPATION; Start 02/01/17 at 20:30 Meropenem (Merrem 500 Mg/ 100 ml (Pmx)) 100 ml @ 200 mls/hr Q8 IVPB Last administered on 02/22/17 14:03; Admin Dose 200 MLS/HR; Start 02/05/17 at 22:00 Acetaminophen (Tylenol Liquid) 650 mg Q4H PRN GTB PAIN AND OR ELEVATED TEMP Last administered on 02/20/17 01:22; Admin Dose 650 MG; Start 02/05/17 at 18:30 Salmeterol Xinafoate/ Fluticasone (Advair 250/50 Diskus) 1 inh BID INH Last administered on 02/12/17 09:03; Admin Dose 1 INH; Start 02/07/17 at 11:00; Status Future Hold IV Flush (NS 10 ml) 10 ml PRN PRN IV IV PROTOCOL; Start 02/07/17 at 14:30 Diphenhydramine HCl 25 mg 25 mg Q6H PRN IV itching ; Start 02/07/17 at 20:00 Ondansetron HCl/ Sodium Chloride (Zofran Inj/NS) 54 ml @ 216 mls/hr Q6H PRN IV NAUSEA AND/OR VOMITING; Start 02/09/17 at 11:30 Prednisone (Prednisone) 40 mg DAILY PO Last administered on 02/12/17 09:03; Admin Dose 40 MG; Start 02/11/17 at 09:00; Status Future Hold Lorazepam (Ativan) 1 mg Q2 PRN IV AGITATION/ANXIETY Last administered on 16:47; Admin Dose 1 MG; Start 02/10/17 at 17:00 Lorazepam (Ativan) 1 mg Q1HWA PRN IM AGITATION/ANXIETY; Start 02/10/17 at 19:00 Trimethobenzamide HCl 200 mg 200 mg Q6H PRN IM NAUSEA AND/OR VOMITING; Start at 19:30 Norepinephrine 16 mg/Dextrose 500 ml @ 1.87 mls/hr TITRATE IV ; Start 02/13/17 at 12:00; Status Future hold Caspofungin/ Sodium Chloride (Cancidas/NS) 250 ml @ 250 mls/hr Q24H IVPB Last administered on 02/22/17 12:22; Admin Dose 250 MLS/HR; Start 02/16/17 at 12:00 Furosemide (Lasix) 20 mg Q6 IV Last administered on 02/22/17 12:04; Admin Dose 20 MG; Start 02/18/17 at 00:00 Morphine Sulfate (morphine) 2 mg Q4H PRN IV pain Last administered on 02/21/17 19:56; Admin Dose 2 MG; Start 02/20/17 at 18:30 Docusate Sodium 100 mg 100 mg BID NGT Last administered on 02/22/17 08:39; Admin Dose 100 MG; Start 02/20/17 at 21:00 Vancomycin HCl/ Sodium Chloride (Vancocin/NS) 250 ml @ 83.333 mls/ hr Q12H IVPB Last administered on 02/22/17 08:39; Admin Dose 83.333 MLS/HR; Start at 09:00 Miscellaneous Information (*Rx Drug Level Order Reminder*) 1 ONCE ONCE XX ; Start 02/22/17 at 20:00; Stop 02/22/17 at 20:01 SANDRA DAVIS MD February 22, 2017 16:53
[2017-02-23] VITALS (24 sets, daily range): BP systolic 104–125; BP diastolic 69–102; PULSE 92–115; RESP 10–35
[2017-02-23] MEDS: FUROSEMIDE 20 MG INJ IV SCH ×4 (00:41→17:11)
[2017-02-23] MEDS: VANCOMYCIN 1 GM in NS 250 ML IVPB SCH ×2 (01:00→12:37)
[2017-02-23 05:21] LABS: ADD SCAN DIFF NO
[2017-02-23] MEDS: MEROPENEM 500 MG/100 ML (PMX) 100 ML IVPB SCH (05:33)
[2017-02-23] MEDS: PANTOPRAZOLE 40 MG INJ IV SCH (05:33)
[2017-02-23 05:35] LABS: ABNORMAL IP MESSAGE 1; MEAN CORPUSCULAR HEMOGLOBIN 28.2 pg (29.0-33.0); MEAN CORPUSCULAR HGB CONC 31.4 g/dl (32.0-37.0); MEAN CORPUSCULAR VOLUME 89.8 fl (82.0-101.0); MEAN PLATELET VOLUME 10.9 fl (7.4-10.4); PLATELET COUNT 443 10^3/UL (140-415); RED BLOOD COUNT 2.45 10^6/ul (4.70-6.10); RED CELL DISTRIBUTION WIDTH 14.4 % (11.5-14.5); WHITE BLOOD COUNT 13.3 10^3/ul (4.8-10.8)
[2017-02-23 05:57] LABS: POTASSIUM 3.1 mmol/L (3.5-5.1)
[2017-02-23 06:00] LABS: CREATININE 0.61 mg/dl (0.61-1.24)
[2017-02-23 06:01] LABS: CALCIUM 7.4 mg/dl (8.4-10.2); MAGNESIUM 1.6 mg/dl (1.7-2.5); PHOSPHORUS 5.2 mg/dl (2.5-4.9)
[2017-02-23 06:16] LABS: HEMOGLOBIN 6.9 g/dl (14.0-18.0)
[2017-02-23] MEDS: DOCUSATE SODIUM 10 MG/ML (10ML CUP) NGT SCH ×2 (08:03→21:00)
[2017-02-23] MEDS: LEVALBUTEROL (NEB) 0.63 MG/3 ML AMP HHN PRN (08:04)
[2017-02-23] MEDS: POTASSIUM CHLORIDE 50 ML IVPB PRN ×5 (08:56→16:39)
[2017-02-23] MEDS ORDERED: MAGNESIUM SULFATE 2 GM/50 ML 50 ML IVPB ONE ×2 (09:00→15:00)
--- NOTE | 2017-02-23 09:32 | RADRPT ---
PROCEDURE: XR Chest. CLINICAL INDICATION: Pneumonia. CHF. TECHNIQUE: Single frontal chest x-ray. COMPARISON: Exam dated 02/22/2017. FINDINGS: An enteric tube has been removed. There is a well-positioned right-sided PICC tip overlying the sup erior cavoatrial junction. The cardiomediastinal silhouette is within normal limits. Layering bilat eral pleural effusions are not significantly changed. Mild diffuse prominence of the interstitium i s improved. There is no pneumothorax. There are no acute osseous abnormalities. IMPRESSION: 1. Improved interstitial disease with similar layering bilateral effusions. 2. Interval removal of the enteric tube. RPTAT: GG .Wilfrido Soto MD, MD Date Time Electronically viewed and signed by .Wilfrido Soto MD, MD on 02/23/2017 09:31 .P/
[2017-02-23 10:26] LABS: AADO2 Arterial 468.3 mmHg (7.0-24.0); Allen Test ACCEPTAB; Arterial Base Excess 8.3 mmol/L (-3.0-3); Arterial COHb 0.3 % (0.0-3.0); Arterial Fraction of Oxyhgb 98.2 % (93.0-99.0); Arterial HCO3 33.7 mmol/L (22.0-26.0); Arterial MetHb 0.3 % (0.0-1.5); Arterial Total Hemglobin 7.6 g/dl (12.0-18.0); MODE MASK - NRB
--- NOTE | 2017-02-23 10:58 | PN ---
Date/Time of Note Date/Time of Note DATE: 02/23/17 TIME: 10:55 Assessment/Plan VTE Prophylaxis VTE Prophylaxis Intervention: heparin Lines/Catheters IV Catheter Type (from Nrs): PICC Line Central line still needed: Yes Urinary Cath still in place: Yes Reason Cath still needed: urinary retention Assessment/Plan Chief Complaint/Hosp Course Assessment/Plan: 46M with: 1. Perforated sigmoid colon 2/2 Severe Crohn's colitis * S/p Urgent Open Cronin's procedure with end colostomy, liver biopsy and abdominal lavage 02/01/17P * S/p post operative paracolic abscess drained via CT 02/14/[address] * S/p Exploration of abdomen through recent laparotomy site with closure of fascia done 02/15/17 for Fascia dehiscence - Continue Wound care and wound Vac 2. Recurrent Resp failure: Extubated then reintubated 02/13: currently vent dependent 3. Exacerbation of Crohn's disease with acute colitis and diarrhea Cultures growing ecoli / proteus / enterococcus 4. Multifocal PNA + Mook Pleural effusions - Effusions likely hydrostatic from hypoalbuminemia - monitor, ID managing abx and antifungal 5. Severe Sepsis with lactic acidosis 2/2 severe colitis / PNA 6. S/p Systemic shock (hypovolemic +septic) 7. TPN therapy for low prealbumin + tube feeds - Gentle diuresis with daily albumin 8. Hx of heavy alcohol and tobacco use just until admission - monitor 9. Probable underlying COPD and Cirrhosis based on hx which explains hypoalbuminemia and anasarca 10. Severe recurrent anemia likely 2/2 occult blood loss from multiple sources : PRN transfusions - for one unit pRBC today 11. Hypomagnesemia - replete again today * PRN pain control/ antiemetics/ antipyretics/ supportive care * Low dose heparin for prophylaxis CRITICAL CARE TIME: 40 mins Problems: Subjective 24 Hr Interval Summary Free Text/Dictation Pt more lethargic today. Getting one unit pRBC transfusion today as well. Exam/Review of Systems Vital Signs Vitals Vital Signs Date Time Temp Pulse Resp B/P Pulse Ox O2 Delivery O2 Flow Rate FiO2 02/23/17 10:00 98.9 97 35 111/75 92 Non Rebreather 15.0 02/20/17 10:55 40 Intake and Output 02/22/17 02/22/17 02/23/17 15:00 23:00 07:00 Intake Total 1033.332 ml 200 ml 0 ml Output Total 1935 ml 730 ml 765 ml Balance -901.668 ml -530 ml -765 ml Exam Constitutional: confused, No distress Head: normocephalic Eyes: PERRL, icteric ENMT: other (NGT) Respiratory: some diminished breath sounds, No wheezing Cardiovascular: regular rate and rhythm, No murmurs/extra sounds Gastrointestinal: distended (mildly), firm (mildly), other (midline surgical dressing with wound vac / L sided colostomy and drain / colostomy has dark green fluidy stool), soft Genitourinary - Male: other (significant scrotal and penile edema) Musculoskeletal: swelling (generalized severe anasarca) Extremities: pitting pedal edema Neurological: confused, lethargic Results Result Diagram: 02/23/17 0430 02/23/17 0430 Results 24 hrs Laboratory Tests Test 02/22/17 20:10 02/23/17 04:30 02/23/17 09:42 Vancomycin Level Trough 18.6 White Blood Count 13.3 H Red Blood Count 2.45 L Hemoglobin 6.9 *L Hematocrit 22.0 L Mean Corpuscular Volume 89.8 Mean Corpuscular Hemoglobin 28.2 L Mean Corpuscular Hemoglobin Concent 31.4 L Red Cell Distribution Width 14.4 Platelet Count 443 H Mean Platelet Volume 10.9 H Neutrophils % Eosinophils % Neutrophils # Eosinophils # Sodium Level 137 Potassium Level 3.1 L Chloride Level 95 L Carbon Dioxide Level 33 H Anion Gap 12 Blood Urea Nitrogen 13 Creatinine 0.61 Glucose Level 94 Calcium Level 7.4 L Phosphorus Level 5.2 H Magnesium Level 1.6 L Blood Gas Specimen Source Blood arterial Arterial Blood Date Drawn 02/23/2017 10:15:45 AM Arterial Blood pH (Temp corrected) 7.421 Arterial Blood pCO2 (Temp correct) 53.1 H Arterial Blood pO2 (Temp corrected) 191.6 H Arterial Blood HCO3 33.7 H Arterial Blood Base Excess 8.3 H Arterial Blood Oxygen Saturation 98.8 H Raffy Test ACCEPTAB Arterial Blood Gas Puncture Site Right Radial Arterial Blood Carboxyhemoglobin 0.3 Arterial Blood Methemoglobin 0.3 Blood Gas A-a O2 Differential 468.3 H Oxyhemoglobin Percent 98.2 Total Hemoglobin 7.6 L Blood Gas Temperature 37.0 Blood Gas Modality MASK - NRB FiO2 100.0 Blood Gas Notified Whom JLD Blood Gas Notified Time 02/23/2017 10:26:22 AM Medications Medications Current Medications Pantoprazole (Protonix Iv) 40 mg DAILY@06 IV Last administered on 02/23/17 05: 33; Admin Dose 40 MG; Start 02/01/17 at 06:00 Acetaminophen/ Hydrocodone Bitart ([place] (5/325)) 1 tab Q4H PRN PO PAIN LEVEL 4 -7 Last administered on 02/09/17 18:48; Admin Dose 1 TAB; Start 02/01/17 at 20: 30 Acetaminophen/ Hydrocodone Bitart ([place] (5/325)) 2 tab Q4H PRN PO PAIN LEVEL 7 -10; Start 02/01/17 at 20:30 Bisacodyl (Dulcolax Supp) 10 mg BID PRN [place] CONSTIPATION; Start 02/01/17 at 20: 30 Sodium Biphosphate/ Sodium Phosphate 133 ml 133 ml BID PRN [place] CONST[place]ATION; Start 02/01/17 at 20:30 Meropenem (Merrem 500 Mg/ 100 ml (Pmx)) 100 ml @ 200 mls/hr Q8 IVPB Last administered on 02/23/17 05:33; Admin Dose 200 MLS/HR; Start 02/05/17 at 22:00 Acetaminophen (Tylenol Liquid) 650 mg Q4H PRN GTB PAIN AND OR ELEVATED TEMP Last administered on 02/20/17 01:22; Admin Dose 650 MG; Start 02/05/17 at 18:30 Salmeterol Xinafoate/ Fluticasone (Advair 250/50 Diskus) 1 inh BID INH Last administered on 02/12/17 09:03; Admin Dose 1 INH; Start 02/07/17 at 11:00; Status Future Hold IV Flush (NS 10 ml) 10 ml PRN PRN IV IV PROTOCOL; Start 02/07/17 at 14:30 Diphenhydramine HCl 25 mg 25 mg Q6H PRN IV itching ; Start 02/07/17 at 20:00 Ondansetron HCl/ Sodium Chloride (Zofran Inj/NS) 54 ml @ 216 mls/hr Q6H PRN IV NAUSEA AND/OR VOMITING; Start 02/09/17 at 11:30 Prednisone (Prednisone) 40 mg DAILY PO Last administered on 02/12/17 09:03; Admin Dose 40 MG; Start 02/11/17 at 09:00; Status Future Hold Lorazepam (Ativan) 1 mg Q2 PRN IV AGITATION/ANXIETY Last administered on 16:47; Admin Dose 1 MG; Start 02/10/17 at 17:00 Lorazepam (Ativan) 1 mg Q1HWA PRN IM AGITATION/ANXIETY; Start 02/10/17 at 19:00 Trimethobenzamide HCl 200 mg 200 mg Q6H PRN IM NAUSEA AND/OR VOMITING; Start at 19:30 Norepinephrine 16 mg/Dextrose 500 ml @ 1.87 mls/hr TITRATE IV ; Start 02/13/17 at 12:00; Status Future hold Caspofungin/ Sodium Chloride (Cancidas/NS) 250 ml @ 250 mls/hr Q24H IVPB Last administered on 02/22/17 12:22; Admin Dose 250 MLS/HR; Start 02/16/17 at 12:00 Furosemide (Lasix) 20 mg Q6 IV Last administered on 02/23/17 05:32; Admin Dose 20 MG; Start 02/18/17 at 00:00 Morphine Sulfate (morphine) 2 mg Q4H PRN IV pain Last administered on 02/21/17 19:56; Admin Dose 2 MG; Start 02/20/17 at 18:30 Docusate Sodium 100 mg 100 mg BID NGT Last administered on 02/22/17 08:39; Admin Dose 100 MG; Start 02/20/17 at 21:00 Vancomycin HCl 250 ml @ 125 mls/hr Q12H IVPB Last administered on 02/23/17 01: 00; Admin Dose 125 MLS/HR; Start 02/23/17 at 01:00 Magnesium Sulfate (Magnesium Sulfate 2 Gm/50 ml) 50 ml @ 25 mls/hr ONCE ONCE IVPB Last administered on 02/23/17 08:53; Admin Dose 25 MLS/HR; Start 02/23/17 at 09:00; Stop 02/23/17 at 10:59 SUSAN SANCHEZ February 23, 2017 10:58
[2017-02-23 11:16] LABS: EOSINOPHILS # 0.4 10^3/ul (0.0-0.5); HYPOCHROMASIA 1+; LYMPHOCYTES # 0.8 10^3/ul (0.8-2.9); MONOCYTE # 0.3 10^3/ul (0.3-0.9); NEUTROPHIL # 11.8 10^3/ul (1.6-7.5)
--- NOTE | 2017-02-23 11:19 | CONS ---
Date/Time of Note Date/Time of Note DATE: 02/23/17 TIME: 11:18 Consult Date/Type/Reason Admit Date/Time Feb 01, 2017 at 03:10 Type of Consultation: pulmonary ICU Ordering Provider: VINCE PADGETT Subjective Patient remains confused this morning increasing lethargy Poor inspiratory effort Remains hemodynamic stable at present Objective Vital Signs Date Time Temp Pulse Resp B/P Pulse Ox O2 Delivery O2 Flow Rate FiO2 02/23/17 10:00 98.9 97 35 111/75 92 Non Rebreather 15.0 02/20/17 10:55 40 Intake and Output 02/22/17 02/22/17 02/23/17 15:00 23:00 07:00 Intake Total 1033.332 ml 200 ml 0 ml Output Total 1935 ml 730 ml 765 ml Balance -901.668 ml -530 ml -765 ml Exam PHYSICAL EXAMINATION GENERAL chronically ill-appearing gentleman nasal cannula oxygen VITAL SIGNS: see below. HEENT: Pupils equal, round, and reactive to light. CARDIAC: S1, S2, CHEST: Diminished air entry bilaterally. ABDOMEN: Mildly distended. Distal bowel sounds no guarding or rebound EXTREMITIES: No cyanosis, clubbing edema +2 NEUROLOGIC: Generalized weakness Results/Medications Result Diagram: 02/23/17 0430 02/23/17 0430 Results 24 hrs Chest x-ray Bilateral pleural effusions left greater than right Laboratory Tests Test 02/22/17 20:10 02/23/17 04:30 02/23/17 09:42 Vancomycin Level Trough 18.6 White Blood Count 13.3 H Red Blood Count 2.45 L Hemoglobin 6.9 *L Hematocrit 22.0 L Mean Corpuscular Volume 89.8 Mean Corpuscular Hemoglobin 28.2 L Mean Corpuscular Hemoglobin Concent 31.4 L Red Cell Distribution Width 14.4 Platelet Count 443 H Mean Platelet Volume 10.9 H Neutrophils % 89.0 H Lymphocytes % 6.0 L Monocytes % 2.0 Eosinophils % 3.0 Neutrophils # 11.8 H Lymphocytes # 0.8 Monocytes # 0.3 Eosinophils # 0.4 Hypochromasia 1+ Sodium Level 137 Potassium Level 3.1 L Chloride Level 95 L Carbon Dioxide Level 33 H Anion Gap 12 Blood Urea Nitrogen 13 Creatinine 0.61 Glucose Level 94 Calcium Level 7.4 L Phosphorus Level 5.2 H Magnesium Level 1.6 L Blood Gas Specimen Source Blood arterial Arterial Blood Date Drawn 02/23/2017 10:15:45 AM Arterial Blood pH (Temp corrected) 7.421 Arterial Blood pCO2 (Temp correct) 53.1 H Arterial Blood pO2 (Temp corrected) 191.6 H Arterial Blood HCO3 33.7 H Arterial Blood Base Excess 8.3 H Arterial Blood Oxygen Saturation 98.8 H Raffy Test ACCEPTAB Arterial Blood Gas Puncture Site Right Radial Arterial Blood Carboxyhemoglobin 0.3 Arterial Blood Methemoglobin 0.3 Blood Gas A-a O2 Differential 468.3 H Oxyhemoglobin Percent 98.2 Total Hemoglobin 7.6 L Blood Gas Temperature 37.0 Blood Gas Modality MASK - NRB FiO2 100.0 Blood Gas Notified Whom JLD Blood Gas Notified Time 02/23/2017 10:26:22 AM Medications Current Medications Pantoprazole (Protonix Iv) 40 mg DAILY@06 IV Last administered on 02/23/17 05: 33; Admin Dose 40 MG; Start 02/01/17 at 06:00 Acetaminophen/ Hydrocodone Bitart ([place] (5/325)) 1 tab Q4H PRN PO PAIN LEVEL 4 -7 Last administered on 02/09/17 18:48; Admin Dose 1 TAB; Start 02/01/17 at 20: 30 Acetaminophen/ Hydrocodone Bitart ([place] (5/325)) 2 tab Q4H PRN PO PAIN LEVEL 7 -10; Start 02/01/17 at 20:30 Bisacodyl (Dulcolax Supp) 10 mg BID PRN [place] CONSTIPATION; Start 02/01/17 at 20: 30 Sodium Biphosphate/ Sodium Phosphate 133 ml 133 ml BID PRN [place] CONSTIPATION; Start 02/01/17 at 20:30 Meropenem (Merrem 500 Mg/ 100 ml (Pmx)) 100 ml @ 200 mls/hr Q8 IVPB Last administered on 02/23/17 05:33; Admin Dose 200 MLS/HR; Start 02/05/17 at 22:00 Acetaminophen (Tylenol Liquid) 650 mg Q4H PRN GTB PAIN AND OR ELEVATED TEMP Last administered on 02/20/17 01:22; Admin Dose 650 MG; Start 02/05/17 at 18:30 Salmeterol Xinafoate/ Fluticasone (Advair 250/50 Diskus) 1 inh BID INH Last administered on 02/12/17 09:03; Admin Dose 1 INH; Start 02/07/17 at 11:00; Status Future Hold IV Flush (NS 10 ml) 10 ml PRN PRN IV IV PROTOCOL; Start 02/07/17 at 14:30 Diphenhydramine HCl 25 mg 25 mg Q6H PRN IV itching ; Start 02/07/17 at 20:00 Ondansetron HCl/ Sodium Chloride (Zofran Inj/NS) 54 ml @ 216 mls/hr Q6H PRN IV NAUSEA AND/OR VOMITING; Start 02/09/17 at 11:30 Prednisone (Prednisone) 40 mg DAILY PO Last administered on 02/12/17 09:03; Admin Dose 40 MG; Start 02/11/17 at 09:00; Status Future Hold Lorazepam (Ativan) 1 mg Q2 PRN IV AGITATION/ANXIETY Last administered on 16:47; Admin Dose 1 MG; Start 02/10/17 at 17:00 Lorazepam (Ativan) 1 mg Q1HWA PRN IM AGITATION/ANXIETY; Start 02/10/17 at 19:00 Trimethobenzamide HCl 200 mg 200 mg Q6H PRN IM NAUSEA AND/OR VOMITING; Start at 19:30 Norepinephrine 16 mg/Dextrose 500 ml @ 1.87 mls/hr TITRATE IV ; Start 02/13/17 at 12:00; Status Future hold Caspofungin/ Sodium Chloride (Cancidas/NS) 250 ml @ 250 mls/hr Q24H IVPB Last administered on 02/22/17 12:22; Admin Dose 250 MLS/HR; Start 02/16/17 at 12:00 Furosemide (Lasix) 20 mg Q6 IV Last administered on 02/23/17 05:32; Admin Dose 20 MG; Start 02/18/17 at 00:00 Morphine Sulfate (morphine) 2 mg Q4H PRN IV pain Last administered on 02/21/17 19:56; Admin Dose 2 MG; Start 02/20/17 at 18:30 Docusate Sodium 100 mg 100 mg BID NGT Last administered on 02/22/17 08:39; Admin Dose 100 MG; Start 02/20/17 at 21:00 Vancomycin HCl (Vancocin) 250 ml @ 125 mls/hr Q12H IVPB Last administered on t 01:00; Admin Dose 125 MLS/HR; Start 02/23/17 at 01:00 Assessment/Plan Chief Complaint/Hosp Course Assessment 1. Crohn's disease with perforation of sigmoid colon and sepsis status post arthroscopic sigmoid colectomy and end colostomy with lysis of adhesions 2. Resolved metabolic acidosis with septic shock 3. Improved electrolyte imbalance 4. Hypoxemic respiratory failure possibly underlying pleural effusions with compressive atelectasis now extubated, moderate left pleural effusion chest x- ray 5. Thrombocytopenia improved 6. Anemia worsening hemoglobin no active GI bleeding 7. Encephalopathy likely toxic metabolic Plan 1. DC sedation 2. Continue incentive spirometry, thoracentesis left lung with pleural fluid studies 3. Continue surgical wound care 4. Continue broad-spectrum antibiotic coverage 5. Patient still has significant aspiration risk discussed with speech therapy 6. DVT GI prophylaxis Disposition Continue ICU care Problems: RAMON DOUGLAS MD, FCCP February 23, 2017 11:19
[2017-02-23] MEDS: CASPOFUNGIN 50 MG in SOD CHLORIDE 0.9% 250 ML IVPB SCH (11:36)
--- NOTE | 2017-02-23 13:23 | CONS ---
Date/Time of Note Date/Time of Note DATE: 02/23/17 TIME: 13:20 Assessment/Plan Assessment/Plan Chief Complaint/Hosp Course SUBJECTIVE: No acute changes overnight. Awake, on venti mask, no fevers, nad INDWELLINGS: Zeng catheter, left-sided abdominal drainage catheter, PICC ANTIMICROBIALS: 1. Vancomycin. 2. Cancidas. 3. Meropenem. PHYSICAL EXAMINATION: GENERAL: This is a well-developed, middle-aged white man who is awake, in no distress. HEENT: Head atraumatic, normocephalic. Sclerae anicteric. Buccal mucosa dry. NECK: Supple. CHEST: Rise symmetrical. Breath sounds clear, diminished to bases. HEART: S1, S2. ABDOMEN: Soft. Mid abdominal dressing to wound VAC. EXTREMITIES: Without cyanosis. Bilateral edema, dependent. SKIN: Positive for anasarca. ASSESSMENT: 1. S/p sepsis 2. S/p healthcare-associated pneumonia. 3. History of Crohn's disease. 4. Status post perforated viscus repair on 02/01/2017 complicated by intra- abdominal abscess, status post drainage on 02/14/2017. 5. Status post exploration of the abdomen with abdominal lavage on 02/15/2017. 6. Anemia. 7. Resp failure/pl effusion PLAN: Hemodynamically stable, no fevers, repeat cx's negative, willl dc abx and observe, plan for thoracentesis, aspiration precautions DW staff DW Dr Raina Kuo Problems: Consultation Date/Type/Reason Admit Date/Time Feb 01, 2017 at 03:10 Initial Consult Date 02/02/17 Type of Consultation: ID Referring Provider: VINCE PADGETT Exam/Review of Systems Vital Signs Vitals Vital Signs Date Time Temp Pulse Resp B/P Pulse Ox O2 Delivery O2 Flow Rate FiO2 02/23/17 12:00 93 30 112/77 99 Non Rebreather 15.0 02/23/17 10:00 98.9 02/20/17 10:55 40 Intake and Output 02/22/17 02/22/17 02/23/17 15:00 23:00 07:00 Intake Total 1033.332 ml 200 ml 0 ml Output Total 1935 ml 730 ml 765 ml Balance -901.668 ml -530 ml -765 ml Results Result Diagram: 02/23/17 0430 02/23/17 0430 Results 24 hrs Laboratory Tests Test 02/22/17 20:10 02/23/17 04:30 02/23/17 09:42 Vancomycin Level Trough 18.6 White Blood Count 13.3 H Red Blood Count 2.45 L Hemoglobin 6.9 *L Hematocrit 22.0 L Mean Corpuscular Volume 89.8 Mean Corpuscular Hemoglobin 28.2 L Mean Corpuscular Hemoglobin Concent 31.4 L Red Cell Distribution Width 14.4 Platelet Count 443 H Mean Platelet Volume 10.9 H Neutrophils % 89.0 H Lymphocytes % 6.0 L Monocytes % 2.0 Eosinophils % 3.0 Neutrophils # 11.8 H Lymphocytes # 0.8 Monocytes # 0.3 Eosinophils # 0.4 Hypochromasia 1+ Sodium Level 137 Potassium Level 3.1 L Chloride Level 95 L Carbon Dioxide Level 33 H Anion Gap 12 Blood Urea Nitrogen 13 Creatinine 0.61 Glucose Level 94 Calcium Level 7.4 L Phosphorus Level 5.2 H Magnesium Level 1.6 L Blood Gas Specimen Source Blood arterial Arterial Blood Date Drawn 02/23/2017 10:15:45 AM Arterial Blood pH (Temp corrected) 7.421 Arterial Blood pCO2 (Temp correct) 53.1 H Arterial Blood pO2 (Temp corrected) 191.6 H Arterial Blood HCO3 33.7 H Arterial Blood Base Excess 8.3 H Arterial Blood Oxygen Saturation 98.8 H Raffy Test ACCEPTAB Arterial Blood Gas Puncture Site Right Radial Arterial Blood Carboxyhemoglobin 0.3 Arterial Blood Methemoglobin 0.3 Blood Gas A-a O2 Differential 468.3 H Oxyhemoglobin Percent 98.2 Total Hemoglobin 7.6 L Blood Gas Temperature 37.0 Blood Gas Modality MASK - NRB FiO2 100.0 Blood Gas Notified Whom JLD Blood Gas Notified Time 02/23/2017 10:26:22 AM Medications Medications Current Medications Pantoprazole (Protonix Iv) 40 mg DAILY@06 IV Last administered on 02/23/17 05: 33; Admin Dose 40 MG; Start 02/01/17 at 06:00 Acetaminophen/ Hydrocodone Bitart ([place] (5/325)) 1 tab Q4H PRN PO PAIN LEVEL 4 -7 Last administered on 02/09/17 18:48; Admin Dose 1 TAB; Start 02/01/17 at 20: 30 Acetaminophen/ Hydrocodone Bitart ([place] (5/325)) 2 tab Q4H PRN PO PAIN LEVEL 7 -10; Start 02/01/17 at 20:30 Bisacodyl (Dulcolax Supp) 10 mg BID PRN [place] CONSTIPATION; Start 02/01/17 at 20: 30 Sodium Biphosphate/ Sodium Phosphate 133 ml 133 ml BID PRN [place] CONSTIPATION; Start 02/01/17 at 20:30 Meropenem (Merrem 500 Mg/ 100 ml (Pmx)) 100 ml @ 200 mls/hr Q8 IVPB Last administered on 02/23/17 05:33; Admin Dose 200 MLS/HR; Start 02/05/17 at 22:00 Acetaminophen (Tylenol Liquid) 650 mg Q4H PRN GTB PAIN AND OR ELEVATED TEMP Last administered on 02/20/17 01:22; Admin Dose 650 MG; Start 02/05/17 at 18:30 Salmeterol Xinafoate/ Fluticasone (Advair 250/50 Diskus) 1 inh BID INH Last administered on 02/12/17 09:03; Admin Dose 1 INH; Start 02/07/17 at 11:00; Status Future Hold IV Flush (NS 10 ml) 10 ml PRN PRN IV IV PROTOCOL; Start 02/07/17 at 14:30 Diphenhydramine HCl 25 mg 25 mg Q6H PRN IV itching ; Start 02/07/17 at 20:00 Ondansetron HCl/ Sodium Chloride (Zofran Inj/NS) 54 ml @ 216 mls/hr Q6H PRN IV NAUSEA AND/OR VOMITING; Start 02/09/17 at 11:30 Prednisone (Prednisone) 40 mg DAILY PO Last administered on 02/12/17 09:03; Admin Dose 40 MG; Start 02/11/17 at 09:00; Status Future Hold Lorazepam (Ativan) 1 mg Q2 PRN IV AGITATION/ANXIETY Last administered on 16:47; Admin Dose 1 MG; Start 02/10/17 at 17:00 Lorazepam (Ativan) 1 mg Q1HWA PRN IM AGITATION/ANXIETY; Start 02/10/17 at 19:00 Trimethobenzamide HCl 200 mg 200 mg Q6H PRN IM NAUSEA AND/OR VOMITING; Start at 19:30 Norepinephrine 16 mg/Dextrose 500 ml @ 1.87 mls/hr TITRATE IV ; Start 02/13/17 at 12:00; Status Future hold Caspofungin/ Sodium Chloride (Cancidas/NS) 250 ml @ 250 mls/hr Q24H IVPB Last administered on 02/23/17 11:36; Admin Dose 250 MLS/HR; Start 02/16/17 at 12:00 Furosemide (Lasix) 20 mg Q6 IV Last administered on 02/23/17 11:36; Admin Dose 20 MG; Start 02/18/17 at 00:00 Morphine Sulfate (morphine) 2 mg Q4H PRN IV pain Last administered on 02/21/17 19:56; Admin Dose 2 MG; Start 02/20/17 at 18:30 Docusate Sodium 100 mg 100 mg BID NGT Last administered on 02/22/17 08:39; Admin Dose 100 MG; Start 02/20/17 at 21:00 Vancomycin HCl (Vancocin) 250 ml @ 125 mls/hr Q12H IVPB Last administered on 12:37; Admin Dose 125 MLS/HR; Start 02/23/17 at 01:00 THOMAS ELLIS NP February 23, 2017 13:23
--- NOTE | 2017-02-23 13:46 | PN ---
Date/Time of Note Date/Time of Note DATE: 02/22/17 TIME: 13:37 Assessment/Plan Lines/Catheters IV Catheter Type (from Nrsg): PICC Line Zeng in Place (from Nrsg): Yes Assessment/Plan Assessment/Plan [facility] Progress Note (late entry) Date of Service: 02/22/17 Today's Impression & Plan: Overall stable. Remains extubated with improved pulmonary picture. No obvious issues with the wound and abd remains benign. No indication for acute surgical intervention. Remains high risk for complication given perforated colon in the setting of uncontrolled Crohn's. Recovery will take extra time with likely need for rehab. With above assessment, I've recommended the following for today: 1. Cont current cares in ICU 2. F/u on cultures 3. Cont TPN 4. Treat ETOH withdrawal 5. Cont gentle diuresis to BMP < 200 6. Social work and case management to please start working on possible rehab vs. home health nurse set up 7. Increase activity 8. Increase ICS 9. Cont broad spec antimicrobials 10. Labs in am 11. Cont current wound care with wound vac 12. D/C NG 13. Swallow test and if ok, to start clear liquid diet 14. D/c L abdominal drain Thank you again for your great care of this very pleasant patient and wonderful family. If there are any questions, please feel free to call me at [phone]. TOTAL VISIT TIME: 20 minutes of which more than half was spent in [id number] discussion with the patient, possibly including family, as well as coordination of care between multiple physicians and providers. Disclaimer: Inadvertent spelling or grammatical errors are likely due to EHR/ dictation software use and do not reflect on the overall quality of patient care. Updated Clinical Summary: A very pleasant 46-year-old gentleman with history of Crohn's disease as well as prior surgery for anal fistula approximately 5 years ago, and a torn meniscus repair on the left knee, presenting with abdominal pain associated with a few weeks' duration of diarrhea. S/p an otherwise uncomplicated diagnostic laparoscopy was converted first to hand assist and then to open exploration when perforated sigmoid colon was found and it was resected with a Deena type procedure and end colostomy as well as core needle liver biopsy, segment 5, due to presence of fatty liver disease, lysis of adhesions, and abdominal lavage on 02/01/17. Failed to wean off the vent through 02/06/17. PE was evaluated 02/07/[address] angio and no evidence found. CT abd/pelvis also did not show actionable findings (no abscess; bowel thickening somewhat expected). Extubated 02/07/17. STATIONARY FIREMAN called early am 02/13/17 with a few minutes coding, requiring intubation and transfer to ICU. Fortunately, mentally appears to be intact and not on pressors. Lactic acid and CO2 normal with benign appearing abd and viable ostomy. Complicated by fascia dehiscence. S/p exploration of abdomen through recent laparotomy, primary closure of fascia and abdominal lavage on 02/15/17. COMORBIDITIES: 1. Crohn disease with perforation of sigmoid colon and sepsis. S/p an otherwise uncomplicated diagnostic laparoscopy was converted first to hand assist and then to open exploration when perforated sigmoid colon was found and it was resected with a Deena type procedure and end colostomy as well as core needle liver biopsy, segment 5, due to presence of fatty liver disease, lysis of adhesions, and abdominal lavage on 02/01/17. Complicated by respiratory failure, return trip to ICU and fascia dehiscence. S/p exploration of abdomen through recent laparotomy, primary closure of fascia and abdominal lavage on 02/15. 2. Repair of a fistula approximately 5 years ago. 3. Torn meniscus on the left knee status post repair. Subjective: No major events overnight; no major complaints; no major SOB and no CP; + BM Objective: Vitals: See below Exam: GENERAL: On exam, the patient was laying in bed and appeared to be comfortable and in no acute distress. ABDOMEN: Soft, nontender and nondistended. Incision wound vac dressings are clean without any evidence of obvious erythema, edema, discharge, or hernia. Surgery drain site clean. Ostomy pink and viable; some air and stool in the bag. There are no peritoneal signs or guarding. SKIN: Skin appears to be pink and feels warm to touch. NEUROLOGIC: Patient is awake, alert and follows commands appropriately. Exam/Review of Systems Vital Signs Vitals Vital Signs Date Time Temp Pulse Resp B/P Pulse Ox O2 Delivery O2 Flow Rate FiO2 02/23/17 12:00 93 30 112/77 99 Non Rebreather 15.0 02/23/17 10:00 98.9 02/20/17 10:55 40 Intake and Output 02/22/17 02/22/17 02/23/17 15:00 23:00 07:00 Intake Total 1033.332 ml 200 ml 0 ml Output Total 1935 ml 730 ml 765 ml Balance -901.668 ml -530 ml -765 ml Results Result Diagram: 02/23/17 0430 02/23/17 0430 TI HILTON M.D. February 23, 2017 13:46
--- NOTE | 2017-02-23 13:49 | PN ---
Date/Time of Note Date/Time of Note DATE: 02/23/17 TIME: 13:46 Assessment/Plan Lines/Catheters IV Catheter Type (from Nrs): PICC Line Zeng in Place (from Nrs): Yes Assessment/Plan Assessment/Plan [facility] Progress Note Date of Service: 02/23/17 Today's Impression & Plan: Overall stable. Remains extubated with improved pulmonary picture. Still with waxing mental status (not hypoxic and follows commands; no evidence for brain injury or stroke, but may need to evaluate if this continues). No obvious issues with the wound and abd remains benign. No indication for acute surgical intervention. Remains high risk for complication given perforated colon in the setting of uncontrolled Crohn's. Recovery will take extra time with likely need for rehab. D/W Dr. Britt and with patient's father over the phone. With above assessment, I've recommended the following for today: 1. Cont current cares in ICU 2. F/u on cultures 3. Cont TPN 4. Treat ETOH withdrawal 5. Cont gentle diuresis to BMP < 200 6. Social work and case management to please start working on possible rehab vs. home health nurse set up 7. Increase activity 8. Increase ICS 9. Cont broad spec antimicrobials 10. Labs in am 11. Cont current wound care with wound vac 12. Consider brain CT 13. Swallow test and if ok, to start clear liquid diet 14. D/c L abdominal drain Thank you again for your great care of this very pleasant patient and wonderful family. If there are any questions, please feel free to call me at [phone]. TOTAL VISIT TIME: 20 minutes of which more than half was spent in [id number] discussion with the patient, possibly including family, as well as coordination of care between multiple physicians and providers. Disclaimer: Inadvertent spelling or grammatical errors are likely due to EHR/ dictation software use and do not reflect on the overall quality of patient care. Updated Clinical Summary: A very pleasant 46-year-old gentleman with history of Crohn's disease as well as prior surgery for anal fistula approximately 5 years ago, and a torn meniscus repair on the left knee, presenting with abdominal pain associated with a few weeks' duration of diarrhea. S/p an otherwise uncomplicated diagnostic laparoscopy was converted first to hand assist and then to open exploration when perforated sigmoid colon was found and it was resected with a Deena type procedure and end colostomy as well as core needle liver biopsy, segment 5, due to presence of fatty liver disease, lysis of adhesions, and abdominal lavage on 02/01/17. Failed to wean off the vent through 02/06/17. PE was evaluated 02/07/[address] angio and no evidence found. CT abd/pelvis also did not show actionable findings (no abscess; bowel thickening somewhat expected). Extubated 02/07/17. HEBREW PROFESSOR called early am 02/13/17 with a few minutes coding, requiring intubation and transfer to ICU. Fortunately, mentally appears to be intact and not on pressors. Lactic acid and CO2 normal with benign appearing abd and viable ostomy. Complicated by fascia dehiscence. S/p exploration of abdomen through recent laparotomy, primary closure of fascia and abdominal lavage on 02/15/17. COMORBIDITIES: 1. Crohn disease with perforation of sigmoid colon and sepsis. S/p an otherwise uncomplicated diagnostic laparoscopy was converted first to hand assist and then to open exploration when perforated sigmoid colon was found and it was resected with a Deena type procedure and end colostomy as well as core needle liver biopsy, segment 5, due to presence of fatty liver disease, lysis of adhesions, and abdominal lavage on 02/01/17. Complicated by respiratory failure, return trip to ICU and fascia dehiscence. S/p exploration of abdomen through recent laparotomy, primary closure of fascia and abdominal lavage on 02/15. 2. Repair of a fistula approximately 5 years ago. 3. Torn meniscus on the left knee status post repair. Subjective: No major events overnight; no major complaints; no major SOB and no CP; + BM; reported "yes" to whether he was hungry Objective: Vitals: See below Exam: GENERAL: On exam, the patient was laying in bed and appeared to be comfortable and in no acute distress. ABDOMEN: Soft, nontender and nondistended. Incision wound vac dressings are clean without any evidence of obvious erythema, edema, discharge, or hernia. Wound vac with no sig drainage. Surgery drain site clean. Ostomy pink and viable ; some air and stool in the bag. There are no peritoneal signs or guarding. SKIN: Skin appears to be pink and feels warm to touch. NEUROLOGIC: Patient is awake, alert and follows commands appropriately. Exam/Review of Systems Vital Signs Vitals Vital Signs Date Time Temp Pulse Resp B/P Pulse Ox O2 Delivery O2 Flow Rate FiO2 02/23/17 12:00 93 30 112/77 99 Non Rebreather 15.0 02/23/17 10:00 98.9 02/20/17 10:55 40 Intake and Output 02/22/17 02/22/17 02/23/17 15:00 23:00 07:00 Intake Total 1033.332 ml 200 ml 0 ml Output Total 1935 ml 730 ml 765 ml Balance -901.668 ml -530 ml -765 ml Results Result Diagram: 02/23/17 0430 02/23/17 0430 TI HILTON M.D. February 23, 2017 13:49
[2017-02-23] MEDS: ALBUTEROL/IPRATROPIUM (NEB) 3 ML AMP HHN SCH ×2 (14:19→20:24)
[2017-02-23] MEDS ORDERED: FUROSEMIDE 20 MG INJ IV ONE (14:30)
[2017-02-23 14:38] LABS: HEMATOCRIT 26.1 % (42.0-52.0); HEMOGLOBIN 8.3 g/dl (14.0-18.0)
[2017-02-23] MEDS ORDERED: POTASSIUM CHLORIDE (SR) 20 MEQ TAB PO STA (14:40)
--- NOTE | 2017-02-23 14:43 | CONS ---
Date/Time of Note Date/Time of Note DATE: 02/23/17 TIME: 14:42 Assessment/Plan Assessment/Plan Additional Assessment/Plan Perforated colon status post surgery Severe sepsis Respiratory failure-extubated Low normal ejection fraction 50% Acute decompensated diastolic congestive heart failure Crohn's disease Acute blood loss anemia -We will order extra dose of diuretics, patient planned for thoracentesis. Supplement potassium to maintain above 4.0 and magnesium above 2.0. Consultation Date/Type/Reason Admit Date/Time Feb 01, 2017 at 03:10 Initial Consult Date 02/02/17 Type of Consultation: cv Referring Provider: VINCE PADGETT 24 HR Interval Summary Free Text/Dictation Patient denies shortness of breath. Requiring nonrebreather secondary to hypoxia Exam/Review of Systems Vital Signs Vitals Vital Signs Date Time Temp Pulse Resp B/P Pulse Ox O2 Delivery O2 Flow Rate FiO2 02/23/17 14:20 95 30 95 Non Rebreather Mask 15.0 02/23/17 14:00 125/102 02/23/17 10:00 98.9 02/20/17 10:55 40 Intake and Output 02/22/17 02/22/17 02/23/17 15:00 23:00 07:00 Intake Total 1033.332 ml 200 ml 0 ml Output Total 1935 ml 730 ml 765 ml Balance -901.668 ml -530 ml -765 ml Exam Follows commands, confused at times, on nonrebreather mask, no apparent distress Constitutional: alert Head: normocephalic Respiratory: other Cardiovascular: other (S1-S2 heard), regular rate and rhythm Gastrointestinal: bowel sounds, non-tender, soft Extremities: edema Results Result Diagram: 02/23/17 0430 02/23/17 0430 Results 24 hrs Laboratory Tests Test 02/22/17 20:10 02/23/17 04:30 02/23/17 09:42 Vancomycin Level Trough 18.6 White Blood Count 13.3 H Red Blood Count 2.45 L Hemoglobin 6.9 *L Hematocrit 22.0 L Mean Corpuscular Volume 89.8 Mean Corpuscular Hemoglobin 28.2 L Mean Corpuscular Hemoglobin Concent 31.4 L Red Cell Distribution Width 14.4 Platelet Count 443 H Mean Platelet Volume 10.9 H Neutrophils % 89.0 H Lymphocytes % 6.0 L Monocytes % 2.0 Eosinophils % 3.0 Neutrophils # 11.8 H Lymphocytes # 0.8 Monocytes # 0.3 Eosinophils # 0.4 Hypochromasia 1+ Sodium Level 137 Potassium Level 3.1 L Chloride Level 95 L Carbon Dioxide Level 33 H Anion Gap 12 Blood Urea Nitrogen 13 Creatinine 0.61 Glucose Level 94 Calcium Level 7.4 L Phosphorus Level 5.2 H Magnesium Level 1.6 L Blood Gas Specimen Source Blood arterial Arterial Blood Date Drawn 02/23/2017 10:15:45 AM Arterial Blood pH (Temp corrected) 7.421 Arterial Blood pCO2 (Temp correct) 53.1 H Arterial Blood pO2 (Temp corrected) 191.6 H Arterial Blood HCO3 33.7 H Arterial Blood Base Excess 8.3 H Arterial Blood Oxygen Saturation 98.8 H Raffy Test ACCEPTAB Arterial Blood Gas Puncture Site Right Radial Arterial Blood Carboxyhemoglobin 0.3 Arterial Blood Methemoglobin 0.3 Blood Gas A-a O2 Differential 468.3 H Oxyhemoglobin Percent 98.2 Total Hemoglobin 7.6 L Blood Gas Temperature 37.0 Blood Gas Modality MASK - NRB FiO2 100.0 Blood Gas Notified Whom JLD Blood Gas Notified Time 02/23/2017 10:26:22 AM Medications Medications Current Medications Pantoprazole (Protonix Iv) 40 mg DAILY@06 IV Last administered on 02/23/17 05: 33; Admin Dose 40 MG; Start 02/01/17 at 06:00 Acetaminophen/ Hydrocodone Bitart ([place] (5/325)) 1 tab Q4H PRN PO PAIN LEVEL 4 -7 Last administered on 02/09/17 18:48; Admin Dose 1 TAB; Start 02/01/17 at 20: 30 Acetaminophen/ Hydrocodone Bitart ([place] (5/325)) 2 tab Q4H PRN PO PAIN LEVEL 7 -10; Start 02/01/17 at 20:30 Bisacodyl (Dulcolax Supp) 10 mg BID PRN [place] CONSTIPATION; Start 02/01/17 at 20: 30 Sodium Biphosphate/ Sodium Phosphate (Fleet Enema) 133 ml BID PRN [place] CONSTIPATION; Start 02/01/17 at 20:30 Acetaminophen (Tylenol Liquid) 650 mg Q4H PRN GTB PAIN AND OR ELEVATED TEMP Last administered on 02/20/17 01:22; Admin Dose 650 MG; Start 02/05/17 at 18:30 Salmeterol Xinafoate/ Fluticasone (Advair 250/50 Diskus) 1 inh BID INH Last administered on 02/12/17 09:03; Admin Dose 1 INH; Start 02/07/17 at 11:00; Status Future Hold IV Flush (NS 10 ml) 10 ml PRN PRN IV IV PROTOCOL; Start 02/07/17 at 14:30 Diphenhydramine HCl 25 mg 25 mg Q6H PRN IV itching ; Start 02/07/17 at 20:00 Ondansetron HCl/ Sodium Chloride (Zofran Inj/NS) 54 ml @ 216 mls/hr Q6H PRN IV NAUSEA AND/OR VOMITING; Start 02/09/17 at 11:30 Prednisone (Prednisone) 40 mg DAILY PO Last administered on 02/12/17 09:03; Admin Dose 40 MG; Start 02/11/17 at 09:00; Status Future Hold Lorazepam (Ativan) 1 mg Q2 PRN IV AGITATION/ANXIETY Last administered on 16:47; Admin Dose 1 MG; Start 02/10/17 at 17:00 Lorazepam (Ativan) 1 mg Q1HWA PRN IM AGITATION/ANXIETY; Start 02/10/17 at 19:00 Trimethobenzamide HCl 200 mg 200 mg Q6H PRN IM NAUSEA AND/OR VOMITING; Start at 19:30 Norepinephrine/ Dextrose (Levophed/D5W) 500 ml @ 1.87 mls/hr TITRATE IV ; Start 02/13/17 at 12:00; Status Future hold Furosemide (Lasix) 20 mg Q6 IV Last administered on 02/23/17 11:36; Admin Dose 20 MG; Start 02/18/17 at 00:00 Morphine Sulfate (morphine) 2 mg Q4H PRN IV pain Last administered on 02/21/17 19:56; Admin Dose 2 MG; Start 02/20/17 at 18:30 Docusate Sodium (Colace Liquid Cup) 100 mg BID NGT Last administered on 08:39; Admin Dose 100 MG; Start 02/20/17 at 21:00 Keith Gandhi DO February 23, 2017 14:43
[2017-02-23] MEDS ORDERED: MAGNESIUM SULFATE 3 GM in SOD CHLORIDE 0.9% 100 ML IVPB ONE (15:00)
[2017-02-23] MEDS ORDERED: LIDOCAINE 1% (MPF) 5 ML VIAL ONE (15:21)
--- NOTE | 2017-02-23 15:35 | RADRPT ---
PROCEDURE: XR Chest. CLINICAL INDICATION: Status post thoracentesis TECHNIQUE: Single portable view of the chest was obtained COMPARISON: Yesterday FINDINGS: There is decreased left pleural effusion. The heart, lungs and mediastinum are otherwise unchanged. There is no evidence of pneumothorax status post thoracentesis. The heart is normal in size. There is a small to moderate right pleural effusion. There is a right-sided PICC line in appropriate posi tion. RPTAT:AA IMPRESSION: Decreased left pleural effusion. No pneumothorax status post thoracentesis. .Roderick Barron MD, MD Date Time Electronically viewed and signed by .Roderick Barron MD, on 02/23/2017 15:35 .S/
--- NOTE | 2017-02-23 15:45 | RADRPT ---
PROCEDURE: US guided left thoracentesis. CLINICAL INDICATION: Shortness of breath. Left pleural effusion. TECHNIQUE: Prior to the procedure, informed consent was obtained. The risks, benefits, and alternatives were e xplained to the patient or the patient's family, including but not limited to bleeding, infection, p ain, visceral or vascular damage, shock, pneumothorax, chest tube placement, air embolism, and . The patient or the patient's family understood the risks and the alternatives and wished to proce ed with the study. Informed written consent was obtained. A procedural pause was performed. The patient's name, date of , and procedure to be performed were verified. Ultrasound of the left hemithorax was performed in the axial and sagittal planes. A left pleural eff usion is noted. Utilizing ultrasound guidance, optimal location for entry to the pleural cavity was ascertained. The overlying skin was prepped and draped in the usual sterile fashion. Approximately 10 ml of 1% Xylocaine was injected locally for pain control. Using ultrasound guidance, a 5-Nepali Yueh catheter was introduced into the left pleural space without difficulty. Fluid was aspirated. COMPARISON: None. FINDINGS: Initial ultrasound demonstrates fluid in the left pleural space. Approximately 0.700 liters of sero us fluid was aspirated and sent to the laboratory. IMPRESSION: 1. Satisfactory ultrasound-guided left thoracentesis. RPTAT: QQ .Rogelio Vera MD, Date Time Electronically viewed and signed by .Rogelio Vera MD, on 02/23/2017 15:44 .R/
[2017-02-23] MEDS: morphine 2 MG INJ IV PRN (15:57)
--- NOTE | 2017-02-23 17:01 | PN ---
Date/Time of Note Date/Time of Note DATE: 02/23/17 TIME: 16:57 Assessment/Plan VTE Prophylaxis VTE Prophylaxis Intervention: SCD's Lines/Catheters IV Catheter Type (from [facility] PICC Line Central line still needed: Yes Urinary Cath still in place: Yes Reason Cath still needed: urinary retention Assessment/Plan Assessment/Plan Perforated sigmoid colon * Laparoscopic exploration,open sigmoid colectomy with Deena end colostomy with liver biopsy segment V h/o Crohn's disease Thrombocytopenia Liver Cirrhosis Anemia hemoglobin 8.3 Plan: Continue present management Will reevaluate for Crohn's disease once recovered from surgery Subjective 24 Hr Interval Summary Free Text/Dictation * Course reviewed with RN * Patient seen and examined * Hemoglobin 8.3 Exam/Review of Systems Vital Signs Vitals Vital Signs Date Time Temp Pulse Resp B/P Pulse Ox O2 Delivery O2 Flow Rate FiO2 02/23/17 16:00 98.9 104 35 116/83 91 Non Rebreather 15.0 02/20/17 10:55 40 Intake and Output 02/22/17 02/22/17 02/23/17 15:00 23:00 07:00 Intake Total 1033.332 ml 200 ml 0 ml Output Total 1935 ml 730 ml 765 ml Balance -901.668 ml -530 ml -765 ml Exam Constitutional: frail Neck: supple Respiratory: clear to auscultation, normal air movement Cardiovascular: nl pulses, regular rate and rhythm Gastrointestinal: bowel sounds, non-tender, soft Musculoskeletal: nl extremities to inspection Results Result Diagram: 02/23/17 1406 02/23/17 1406 Results 24 hrs Laboratory Tests Test 02/22/17 20:10 02/23/17 04:30 02/23/17 09:42 02/23/17 14:06 Vancomycin Level Trough 18.6 White Blood Count 13.3 H Red Blood Count 2.45 L Hemoglobin 6.9 *L 8.3 #L Hematocrit 22.0 L 26.1 L Mean Corpuscular Volume 89.8 Mean Corpuscular Hemoglobin 28.2 L Mean Corpuscular Hemoglobin Concent 31.4 L Red Cell Distribution Width 14.4 Platelet Count 443 H Mean Platelet Volume 10.9 H Neutrophils % 89.0 H Lymphocytes % 6.0 L Monocytes % 2.0 Eosinophils % 3.0 Neutrophils # 11.8 H Lymphocytes # 0.8 Monocytes # 0.3 Eosinophils # 0.4 Hypochromasia 1+ Sodium Level 137 Potassium Level 3.1 L 3.6 Chloride Level 95 L Carbon Dioxide Level 33 H Anion Gap 12 Blood Urea Nitrogen 13 Creatinine 0.61 Glucose Level 94 Calcium Level 7.4 L Phosphorus Level 5.2 H Magnesium Level 1.6 L Blood Gas Specimen Source Blood arterial Arterial Blood Date Drawn 02/23/2017 10:15:45 AM Arterial Blood pH (Temp corrected) 7.421 Arterial Blood pCO2 (Temp correct) 53.1 H Arterial Blood pO2 (Temp corrected) 191.6 H Arterial Blood HCO3 33.7 H Arterial Blood Base Excess 8.3 H Arterial Blood Oxygen Saturation 98.8 H Raffy Test ACCEPTAB Arterial Blood Gas Puncture Site Right Radial Arterial Blood Carboxyhemoglobin 0.3 Arterial Blood Methemoglobin 0.3 Blood Gas A-a O2 Differential 468.3 H Oxyhemoglobin Percent 98.2 Total Hemoglobin 7.6 L Blood Gas Temperature 37.0 Blood Gas Modality MASK - NRB FiO2 100.0 Blood Gas Notified Whom JLD Blood Gas Notified Time 02/23/2017 10:26:22 AM Medications Medications Current Medications Pantoprazole (Protonix Iv) 40 mg DAILY@06 IV Last administered on 02/23/17 05: 33; Admin Dose 40 MG; Start 02/01/17 at 06:00 Acetaminophen/ Hydrocodone Bitart ([place] (5/325)) 1 tab Q4H PRN PO PAIN LEVEL 4 -7 Last administered on 02/09/17 18:48; Admin Dose 1 TAB; Start 02/01/17 at 20: 30 Acetaminophen/ Hydrocodone Bitart ([place] (5/325)) 2 tab Q4H PRN PO PAIN LEVEL 7 -10; Start 02/01/17 at 20:30 Bisacodyl (Dulcolax Supp) 10 mg BID PRN [place] CONSTIPATION; Start 02/01/17 at 20: 30 Sodium Biphosphate/ Sodium Phosphate (Fleet Enema) 133 ml BID PRN [place] CONSTIPATION; Start 02/01/17 at 20:30 Acetaminophen (Tylenol Liquid) 650 mg Q4H PRN GTB PAIN AND OR ELEVATED TEMP Last administered on 02/20/17 01:22; Admin Dose 650 MG; Start 02/05/17 at 18:30 Salmeterol Xinafoate/ Fluticasone (Advair 250/50 Diskus) 1 inh BID INH Last administered on 02/12/17 09:03; Admin Dose 1 INH; Start 02/07/17 at 11:00; Status Future Hold IV Flush (NS 10 ml) 10 ml PRN PRN IV IV PROTOCOL; Start 02/07/17 at 14:30 Diphenhydramine HCl 25 mg 25 mg Q6H PRN IV itching ; Start 02/07/17 at 20:00 Ondansetron HCl/ Sodium Chloride (Zofran Inj/NS) 54 ml @ 216 mls/hr Q6H PRN IV NAUSEA AND/OR VOMITING; Start 02/09/17 at 11:30 Prednisone (Prednisone) 40 mg DAILY PO Last administered on 02/12/17 09:03; Admin Dose 40 MG; Start 02/11/17 at 09:00; Status Future Hold Lorazepam (Ativan) 1 mg Q2 PRN IV AGITATION/ANXIETY Last administered on 16:47; Admin Dose 1 MG; Start 02/10/17 at 17:00 Lorazepam (Ativan) 1 mg Q1HWA PRN IM AGITATION/ANXIETY; Start 02/10/17 at 19:00 Trimethobenzamide HCl 200 mg 200 mg Q6H PRN IM NAUSEA AND/OR VOMITING; Start at 19:30 Norepinephrine/ Dextrose (Levophed/D5W) 500 ml @ 1.87 mls/hr TITRATE IV ; Start 02/13/17 at 12:00; Status Future hold Furosemide (Lasix) 20 mg Q6 IV Last administered on 02/23/17 11:36; Admin Dose 20 MG; Start 02/18/17 at 00:00; Stop 02/23/17 at 18:00 Morphine Sulfate (morphine) 2 mg Q4H PRN IV pain Last administered on 02/23/17 15:57; Admin Dose 2 MG; Start 02/20/17 at 18:30 Docusate Sodium 100 mg 100 mg BID NGT Last administered on 02/22/17 08:39; Admin Dose 100 MG; Start 02/20/17 at 21:00 Magnesium Sulfate (Magnesium Sulfate 2 Gm/50 ml) 50 ml @ 25 mls/hr ONCE ONCE IVPB Last administered on 02/23/17 15:00; Admin Dose 25 MLS/HR; Start 02/23/17 at 15:00; Stop 02/23/17 at 16:59 SANDRA DAVIS MD February 23, 2017 17:01
[2017-02-23 17:21] LABS: FLUID LD 387 U/L; FLUID TOTAL PROTEIN < 2.0 g/dl; FLUID TYPE FLUID
[2017-02-23 18:06] LABS: FLUID APPEARANCE SLIGHTLY HAZY; FLUID RBC EST 1+; FLUID TYPE PLEURAL; FLUID WBC'S 263 /cmm
[2017-02-23 18:07] LABS: FLUID BASOPHIL 0 %; FLUID EOSINOPHIL 0 %; FLUID LYMPHOCYTES 19 %; FLUID MONOCYTES 12 %; FLUID NEUTROPHILS 69 %
[2017-02-23 19:53] LABS: FLUID GLUCOSE 85 mg/dl; FLUID TYPE FLUID
[2017-02-23] MEDS ORDERED: POTASSIUM CHLORIDE (SR) 20 MEQ TAB PO ONE (21:00)
[2017-02-24] VITALS (35 sets, daily range): BP systolic 94–130; BP diastolic 56–95; PULSE 98–129; RESP 10–43
[2017-02-24] MEDS: POTASSIUM CHLORIDE 50 ML IVPB PRN ×4 (00:17→23:30)
[2017-02-24] MEDS: ALBUTEROL/IPRATROPIUM (NEB) 3 ML AMP HHN SCH ×4 (02:47→19:39)
[2017-02-24] MEDS: FUROSEMIDE 40 MG INJ IV SCH ×2 (05:04→18:16)
[2017-02-24] MEDS: PANTOPRAZOLE 40 MG INJ IV SCH (05:04)
[2017-02-24 05:22] LABS: ADD SCAN DIFF NO
[2017-02-24 05:26] LABS: BASOPHIL # 0.1 10^3/ul (0.0-0.1); BASOPHILS % 0.3 % (0.0-2.0); EOSINOPHILS # 0.3 10^3/ul (0.0-0.5); EOSINOPHILS % 1.5 % (0.0-7.0); HEMATOCRIT 26.1 % (42.0-52.0); HEMOGLOBIN 8.3 g/dl (14.0-18.0); LYMPHOCYTES # 0.7 10^3/ul (0.8-2.9); MEAN CORPUSCULAR HEMOGLOBIN 28.5 pg (29.0-33.0); MEAN CORPUSCULAR HGB CONC 31.8 g/dl (32.0-37.0); MEAN CORPUSCULAR VOLUME 89.7 fl (82.0-101.0); MEAN PLATELET VOLUME 10.5 fl (7.4-10.4); MONOCYTES % 5.9 % (0.0-11.0); NEUTROPHIL # 14.5 10^3/ul (1.6-7.5); NEUTROPHILS % 87.6 % (39.0-77.0); PLATELET COUNT 460 10^3/UL (140-415); RED BLOOD COUNT 2.91 10^6/ul (4.70-6.10); RED CELL DISTRIBUTION WIDTH 14.3 % (11.5-14.5); WHITE BLOOD COUNT 16.5 10^3/ul (4.8-10.8)
[2017-02-24 05:44] LABS: POTASSIUM 3.6 mmol/L (3.5-5.1)
[2017-02-24 05:47] LABS: CREATININE 0.59 mg/dl (0.61-1.24)
[2017-02-24 05:48] LABS: CALCIUM 7.4 mg/dl (8.4-10.2); MAGNESIUM 1.9 mg/dl (1.7-2.5); PHOSPHORUS 3.7 mg/dl (2.5-4.9)
[2017-02-24 08:12] LABS: AADO2 Arterial 611.8 mmHg (7.0-24.0); Allen Test ACCEPTAB; Arterial Base Excess 7.1 mmol/L (-3.0-3); Arterial COHb 0.1 % (0.0-3.0); Arterial Fraction of Oxyhgb 91.5 % (93.0-99.0); Arterial HCO3 30.4 mmol/L (22.0-26.0); Arterial MetHb 0.6 % (0.0-1.5); Arterial Total Hemglobin 8.7 g/dl (12.0-18.0); MODE MASK - NRB
--- NOTE | 2017-02-24 08:48 | RADRPT ---
PROCEDURE: Chest Radiograph. CLINICAL INDICATION: Pneumonia. CHF. TECHNIQUE: Single frontal chest radiograph. COMPARISON: Chest radiograph of 07/04 FINDINGS: A right upper extremity PICC remains in place with distal tip in the region of the cavoatrial juncti on. There has been interval complete whiteout of the left hemithorax with mediastinal shift to the left consistent with collapse of the left lung. An underlying effusion may be present. There is a trace right pleural effusion with adjacent atelectasis. The bones are intact. IMPRESSION: 1. Interval complete whiteout of the left hemithorax with mediastinal shift to the left consistent with complete collapse of the left lung. 2. Trace right pleural effusion with adjacent atelectasis. Call report: A call report was made to patient's RN Donna at approximately 08:45 a.m. on 02/24/2017 . RPTAT: KK .Patrick Rodriguez MD, Date Time Electronically viewed and signed by .Patrick Rodriguez MD, MD on 02/24/2017 08:48 .B/
[2017-02-24] MEDS: DOCUSATE SODIUM 10 MG/ML (10ML CUP) NGT SCH ×2 (09:00→21:00)
--- NOTE | 2017-02-24 09:32 | PN ---
Date/Time of Note Date/Time of Note DATE: 02/24/17 TIME: 09:25 Assessment/Plan Lines/Catheters IV Catheter Type (from Nrs): Saline Lock Zeng in Place (from Nrs): Yes Assessment/Plan Assessment/Plan [facility] Progress Note Date of Service: 02/24/17 Today's Impression & Plan: Overall stable. Remains extubated with ongoing pulmonary issues, including possible more effusion on the left vs mucus plug (CXR this am shows whitening of the left lung farias). Still with waxing mental status (not hypoxic and follows commands; for the most part oriented, which is an improvement over the last few weeks; no evidence for brain injury or stroke, but may need to evaluate if this continues). No obvious issues with the wound and abd remains benign. No indication for acute surgical intervention. Remains high risk for complication given perforated colon in the setting of uncontrolled Crohn's. Recovery will take extra time with likely need for rehab. D/W Dr. Britt today and with patient's father over the phone yesterday. With above assessment, I've recommended the following for today: 1. Cont current cares in ICU 2. F/u on cultures 3. Cont TPN 4. Pulmonary toilet and recheck of status for the left lung 5. Cont gentle diuresis to BMP < 200 6. Social work and case management to please start working on possible rehab vs. home health nurse set up 7. Increase activity 8. Increase ICS 9. Cont broad spec antimicrobials 10. Labs in am 11. Cont current wound care with wound vac 12. Consider neurohormonal lab checks (TSH, PTH, cortisol levels, etc) 13. Ongoing swallow evaluation and once ok, to start increase oral intake 14. D/c L abdominal drain Thank you again for your great care of this very pleasant patient and wonderful family. If there are any questions, please feel free to call me at [phone]. TOTAL VISIT TIME: 20 minutes of which more than half was spent in [id number] discussion with the patient, possibly including family, as well as coordination of care between multiple physicians and providers. Disclaimer: Inadvertent spelling or grammatical errors are likely due to EHR/ dictation software use and do not reflect on the overall quality of patient care. Updated Clinical Summary: A very pleasant 46-year-old gentleman with history of Crohn's disease as well as prior surgery for anal fistula approximately 5 years ago, and a torn meniscus repair on the left knee, presenting with abdominal pain associated with a few weeks' duration of diarrhea. S/p an otherwise uncomplicated diagnostic laparoscopy was converted first to hand assist and then to open exploration when perforated sigmoid colon was found and it was resected with a Deena type procedure and end colostomy as well as core needle liver biopsy, segment 5, due to presence of fatty liver disease, lysis of adhesions, and abdominal lavage on 02/01/17. Failed to wean off the vent through 02/06/17. PE was evaluated 02/07/[address] angio and no evidence found. CT abd/pelvis also did not show actionable findings (no abscess; bowel thickening somewhat expected). Extubated 02/07/17. [facility] FORMER called early am 02/13/17 with a few minutes coding, requiring intubation and transfer to ICU. Fortunately, mentally appears to be intact and not on pressors. Lactic acid and CO2 normal with benign appearing abd and viable ostomy. Complicated by fascia dehiscence. S/p exploration of abdomen through recent laparotomy, primary closure of fascia and abdominal lavage on 02/15/17. COMORBIDITIES: 1. Crohn disease with perforation of sigmoid colon and sepsis. S/p an otherwise uncomplicated diagnostic laparoscopy was converted first to hand assist and then to open exploration when perforated sigmoid colon was found and it was resected with a Deena type procedure and end colostomy as well as core needle liver biopsy, segment 5, due to presence of fatty liver disease, lysis of adhesions, and abdominal lavage on 02/01/17. Complicated by respiratory failure, return trip to ICU and fascia dehiscence. S/p exploration of abdomen through recent laparotomy, primary closure of fascia and abdominal lavage on 02/15. 2. Repair of a fistula approximately 5 years ago. 3. Torn meniscus on the left knee status post repair. Subjective: No major events overnight; no major complaints; no major SOB and no CP; + BM; confused, but more oriented on direct questioning Objective: Vitals: See below Exam: GENERAL: On exam, the patient was laying in bed and appeared to be comfortable and in no acute distress. ABDOMEN: Soft, nontender and nondistended. Incision wound vac dressings are clean without any evidence of obvious erythema, edema, discharge, or hernia. Wound vac with no sig drainage. Surgery drain site clean. Ostomy pink and viable ; some air and stool in the bag. There are no peritoneal signs or guarding. SKIN: Skin appears to be pink and feels warm to touch. NEUROLOGIC: Patient is awake, alert and follows commands appropriately. Oriented to self, place (for the most part), year and president. Exam/Review of Systems Vital Signs Vitals Vital Signs Date Time Temp Pulse Resp B/P Pulse Ox O2 Delivery O2 Flow Rate FiO2 02/24/17 08:20 15.0 02/24/17 08:20 109 26 91 Non Rebreather Mask 02/24/17 05:00 118/59 02/24/17 04:00 98.0 02/20/17 10:55 40 Intake and Output 02/23/17 02/23/17 02/24/17 15:00 23:00 07:00 Intake Total 250 ml 150 ml 50 ml Output Total 1015 ml 1130 ml 1000 ml Balance -765 ml -980 ml -950 ml Results Result Diagram: 02/24/17 0500 02/24/17 0500 TI HILTON M.D. February 24, 2017 09:32
--- NOTE | 2017-02-24 10:59 | CONS ---
Date/Time of Note Date/Time of Note DATE: 02/24/17 TIME: 10:57 Consult Date/Type/Reason Admit Date/Time Feb 01, 2017 at 03:10 Type of Consultation: pulmonary ICU Ordering Provider: VINCE PADGETT Patient underwent thoracentesis of 0.7 L from left lung yesterday Tolerated procedure without decortication This morning has complete opacification of left lung likely consistent with mucous plugging less confused Adequate saturations Objective Vital Signs Date Time Temp Pulse Resp B/P Pulse Ox O2 Delivery O2 Flow Rate FiO2 02/24/17 08:20 15.0 02/24/17 08:20 109 26 91 Non Rebreather Mask 02/24/17 05:00 118/59 02/24/17 04:00 98.0 02/20/17 10:55 40 Intake and Output 02/23/17 02/23/17 02/24/17 15:00 23:00 07:00 Intake Total 250 ml 150 ml 50 ml Output Total 1015 ml 1130 ml 1000 ml Balance -765 ml -980 ml -950 ml Results/Medications Result Diagram: 02/24/17 0500 02/24/17 0500 Results 24 hrs Laboratory Tests Test 02/23/17 14:00 02/23/17 14:06 02/23/17 19:54 02/24/17 05:00 Body Fluid Type FLUID Body Fluid Volume 725.0 Body Fluid Color YELLOW Body Fluid Appearance SLIGHTLY HAZY Body Fluid WBC 263 Body Fluid RBC 1+ Body Fluid Neutrophils % 69 Body Fluid Lymphocytes (%) 19 Body Fluid Monocytes % 12 Body Fluid Eosinophils % 0 Body Fluid Basophils % 0 Body Fluid Other Cells (%) Body Fluid Glucose 85 Body Fluid Total Protein < 2.0 Body Fluid Lactate Dehydrogenase 387 Hemoglobin 8.3 #L 8.3 L Hematocrit 26.1 L 26.1 L Potassium Level 3.6 3.7 3.6 White Blood Count 16.5 #H Red Blood Count 2.91 L Mean Corpuscular Volume 89.7 Mean Corpuscular Hemoglobin 28.5 L Mean Corpuscular Hemoglobin Concent 31.8 L Red Cell Distribution Width 14.3 Platelet Count 460 H Mean Platelet Volume 10.5 H Neutrophils % 87.6 H Lymphocytes % 4.0 L Monocytes % 5.9 Eosinophils % 1.5 Basophils % 0.3 Nucleated Red Blood Cells % 0.0 Neutrophils # 14.5 H Lymphocytes # 0.7 L Monocytes # 1.0 H Eosinophils # 0.3 Basophils # 0.1 Nucleated Red Blood Cells # 0.0 Sodium Level 140 Chloride Level 97 Carbon Dioxide Level 31 Anion Gap 16 Blood Urea Nitrogen 13 Creatinine 0.59 L Glucose Level 85 Calcium Level 7.4 L Phosphorus Level 3.7 Magnesium Level 1.9 Test 02/24/17 05:46 02/24/17 07:00 Lab Scanned Report BLOOD TRANSFUSION Blood Gas Specimen Source Blood arterial Arterial Blood Date Drawn 02/24/2017 7:33:01 AM Arterial Blood pH (Temp corrected) 7.520 H Arterial Blood pCO2 (Temp correct) 38.1 Arterial Blood pO2 (Temp corrected) 63.1 L Arterial Blood HCO3 30.4 H Arterial Blood Base Excess 7.1 H Arterial Blood Oxygen Saturation 92.1 L Raffy Test ACCEPTAB Arterial Blood Gas Puncture Site Right Radial Arterial Blood Carboxyhemoglobin 0.1 Arterial Blood Methemoglobin 0.6 Blood Gas A-a O2 Differential 611.8 H Oxyhemoglobin Percent 91.5 L Total Hemoglobin 8.7 L Blood Gas Temperature 37.0 Blood Gas Modality MASK - NRB FiO2 100.0 Blood Gas Notified Whom JLD Blood Gas Notified Time 02/24/2017 8:12:43 AM Medications Current Medications Pantoprazole (Protonix Iv) 40 mg DAILY@06 IV Last administered on 02/24/17 05: 04; Admin Dose 40 MG; Start 02/01/17 at 06:00 Acetaminophen/ Hydrocodone Bitart ([place] (5/325)) 1 tab Q4H PRN PO PAIN LEVEL 4 -7 Last administered on 02/09/17 18:48; Admin Dose 1 TAB; Start 02/01/17 at 20: 30 Acetaminophen/ Hydrocodone Bitart ([place] (5/325)) 2 tab Q4H PRN PO PAIN LEVEL 7 -10; Start 02/01/17 at 20:30 Bisacodyl (Dulcolax Supp) 10 mg BID PRN [place] CONSTIPATION; Start 02/01/17 at 20: 30 Sodium Biphosphate/ Sodium Phosphate (Fleet Enema) 133 ml BID PRN [place] CONSTIPATION; Start 02/01/17 at 20:30 Acetaminophen (Tylenol Liquid) 650 mg Q4H PRN GTB PAIN AND OR ELEVATED TEMP Last administered on 02/20/17 01:22; Admin Dose 650 MG; Start 02/05/17 at 18:30 Salmeterol Xinafoate/ Fluticasone (Advair 250/50 Diskus) 1 inh BID INH Last administered on 02/12/17 09:03; Admin Dose 1 INH; Start 02/07/17 at 11:00; Status Future Hold IV Flush (NS 10 ml) 10 ml PRN PRN IV IV PROTOCOL; Start 02/07/17 at 14:30 Diphenhydramine HCl 25 mg 25 mg Q6H PRN IV itching ; Start 02/07/17 at 20:00 Ondansetron HCl/ Sodium Chloride (Zofran Inj/NS) 54 ml @ 216 mls/hr Q6H PRN IV NAUSEA AND/OR VOMITING; Start 02/09/17 at 11:30 Prednisone (Prednisone) 40 mg DAILY PO Last administered on 02/12/17 09:03; Admin Dose 40 MG; Start 02/11/17 at 09:00; Status Future Hold Lorazepam (Ativan) 1 mg Q2 PRN IV AGITATION/ANXIETY Last administered on 16:47; Admin Dose 1 MG; Start 02/10/17 at 17:00 Lorazepam (Ativan) 1 mg Q1HWA PRN IM AGITATION/ANXIETY; Start 02/10/17 at 19:00 Trimethobenzamide HCl 200 mg 200 mg Q6H PRN IM NAUSEA AND/OR VOMITING; Start at 19:30 Norepinephrine/ Dextrose (Levophed/D5W) 500 ml @ 1.87 mls/hr TITRATE IV ; Start 02/13/17 at 12:00; Status Future hold Morphine Sulfate (morphine) 2 mg Q4H PRN IV pain Last administered on 02/23/17 15:57; Admin Dose 2 MG; Start 02/20/17 at 18:30 Docusate Sodium (Colace Liquid Cup) 100 mg BID NGT Last administered on 08:39; Admin Dose 100 MG; Start 02/20/17 at 21:00 Assessment/Plan Chief Complaint/Hosp Course Assessment 1. Crohn's disease with perforation of sigmoid colon and sepsis status post arthroscopic sigmoid colectomy and end colostomy with lysis of adhesions 2. Resolved metabolic acidosis with septic shock 3. Improved electrolyte imbalance 4. Hypoxemic respiratory failure possibly underlying pleural effusions with compressive atelectasis now extubated, moderate left pleural effusion chest x- ray status post thoracentesis now with likely mucous plugging with complete volume loss of left lung 5. Thrombocytopenia improved 6. Anemia worsening hemoglobin no active GI bleeding 7. Encephalopathy likely toxic metabolic Plan 1. DC sedation 2. Continue incentive spirometry, pleural fluid consistent with transudative effusion given low protein count. Left lung opacification likely secondary to mucous plugging will add Mucomyst and initiate chest PT. If this fails patient will require bronchoscopy which may require intubation which would set him back in his recovery. 3. Continue surgical wound care 4. Continue broad-spectrum antibiotic coverage 5. Patient still has significant aspiration risk discussed with speech therapy 6. DVT GI prophylaxis Disposition Continue ICU care Discussed with general surgery Problems: RAMON DOUGLAS MD, [facility] February 24, 2017 10:59
--- NOTE | 2017-02-24 11:13 | PN ---
Date/Time of Note Date/Time of Note DATE: 02/24/17 TIME: 11:07 Assessment/Plan VTE Prophylaxis VTE Prophylaxis Intervention: heparin Lines/Catheters IV Catheter Type (from Nrs): Saline Lock Urinary Cath still in place: Yes Reason Cath still needed: urinary retention Assessment/Plan Chief Complaint/Hosp Course Assessment/Plan: 46M with: 1. Perforated sigmoid colon 2/2 Severe Crohn's colitis * S/p Urgent Open Cronin's procedure with end colostomy, liver biopsy and abdominal lavage 02/01/17P * S/p post operative paracolic abscess drained via CT 02/14/[address] * S/p Exploration of abdomen through recent laparotomy site with closure of fascia done 02/15/17 for Fascia dehiscence - Continue Wound care and wound Vac 2. Recurrent Resp failure: Extubated then reintubated 02/13: now extubated, on NRB. CXR with left sided whiteout - for CBT, and mucomist, per pulm hold off on bronch for now. 3. Exacerbation of Crohn's disease with acute colitis and diarrhea Cultures growing ecoli / proteus / enterococcus 4. Multifocal PNA + Mook Pleural effusions - Effusions likely hydrostatic from hypoalbuminemia - monitor, ID managing abx and antifungal 5. Severe Sepsis with lactic acidosis 2/2 severe colitis / PNA 6. S/p Systemic shock (hypovolemic +septic) 7. TPN therapy for low prealbumin + tube feeds - Gentle diuresis with daily albumin 8. Hx of heavy alcohol and tobacco use just until admission - monitor 9. Probable underlying COPD and Cirrhosis based on hx which explains hypoalbuminemia and anasarca 10. Severe recurrent anemia likely 2/2 occult blood loss from multiple sources : PRN transfusions 11. Hypomagnesemia - replete as needed * PRN pain control/ antiemetics/ antipyretics/ supportive care * Low dose heparin for prophylaxis CRITICAL CARE TIME: 40 mins Problems: Subjective 24 Hr Interval Summary Free Text/Dictation Pt a bit more alert today, has left lung white out on CXR, on NRB since yesterday. Exam/Review of Systems Vital Signs Vitals Vital Signs Date Time Temp Pulse Resp B/P Pulse Ox O2 Delivery O2 Flow Rate FiO2 02/24/17 08:20 15.0 02/24/17 08:20 109 26 91 Non Rebreather Mask 02/24/17 05:00 118/59 02/24/17 04:00 98.0 02/20/17 10:55 40 Intake and Output 02/23/17 02/23/17 02/24/17 14:59 22:59 06:59 Intake Total 250 ml 150 ml 50 ml Output Total 1215 ml 1230 ml 1100 ml Balance -965 ml -1080 ml -1050 ml Exam Constitutional: confused, No distress Head: normocephalic Eyes: PERRL, icteric ENMT: other (NGT) Respiratory: some diminished breath sounds, No wheezing Cardiovascular: regular rate and rhythm, No murmurs/extra sounds Gastrointestinal: other (midline surgical dressing with wound vac / L sided colostomy and drain / colostomy has dark green fluidy stool), soft otherwise Genitourinary - Male: other (significant scrotal and penile edema) Musculoskeletal: swelling (generalized severe anasarca) Extremities: pitting pedal edema Neurological: confused, lethargic Results Result Diagram: 02/24/17 0500 02/24/17 0500 Results 24 hrs Laboratory Tests Test 02/23/17 14:00 02/23/17 14:06 02/23/17 19:54 02/24/17 05:00 Body Fluid Type FLUID Body Fluid Volume 725.0 Body Fluid Color YELLOW Body Fluid Appearance SLIGHTLY HAZY Body Fluid WBC 263 Body Fluid RBC 1+ Body Fluid Neutrophils % 69 Body Fluid Lymphocytes (%) 19 Body Fluid Monocytes % 12 Body Fluid Eosinophils % 0 Body Fluid Basophils % 0 Body Fluid Other Cells (%) Body Fluid Glucose 85 Body Fluid Total Protein < 2.0 Body Fluid Lactate Dehydrogenase 387 Hemoglobin 8.3 #L 8.3 L Hematocrit 26.1 L 26.1 L Potassium Level 3.6 3.7 3.6 White Blood Count 16.5 #H Red Blood Count 2.91 L Mean Corpuscular Volume 89.7 Mean Corpuscular Hemoglobin 28.5 L Mean Corpuscular Hemoglobin Concent 31.8 L Red Cell Distribution Width 14.3 Platelet Count 460 H Mean Platelet Volume 10.5 H Neutrophils % 87.6 H Lymphocytes % 4.0 L Monocytes % 5.9 Eosinophils % 1.5 Basophils % 0.3 Nucleated Red Blood Cells % 0.0 Neutrophils # 14.5 H Lymphocytes # 0.7 L Monocytes # 1.0 H Eosinophils # 0.3 Basophils # 0.1 Nucleated Red Blood Cells # 0.0 Sodium Level 140 Chloride Level 97 Carbon Dioxide Level 31 Anion Gap 16 Blood Urea Nitrogen 13 Creatinine 0.59 L Glucose Level 85 Calcium Level 7.4 L Phosphorus Level 3.7 Magnesium Level 1.9 Test 02/24/17 05:46 02/24/17 07:00 Lab Scanned Report BLOOD TRANSFUSION Blood Gas Specimen Source Blood arterial Arterial Blood Date Drawn 02/24/2017 7:33:01 AM Arterial Blood pH (Temp corrected) 7.520 H Arterial Blood pCO2 (Temp correct) 38.1 Arterial Blood pO2 (Temp corrected) 63.1 L Arterial Blood HCO3 30.4 H Arterial Blood Base Excess 7.1 H Arterial Blood Oxygen Saturation 92.1 L Raffy Test ACCEPTAB Arterial Blood Gas Puncture Site Right Radial Arterial Blood Carboxyhemoglobin 0.1 Arterial Blood Methemoglobin 0.6 Blood Gas A-a O2 Differential 611.8 H Oxyhemoglobin Percent 91.5 L Total Hemoglobin 8.7 L Blood Gas Temperature 37.0 Blood Gas Modality MASK - NRB FiO2 100.0 Blood Gas Notified Whom JLD Blood Gas Notified Time 02/24/2017 8:12:43 AM Medications Medications Current Medications Pantoprazole (Protonix Iv) 40 mg DAILY@06 IV Last administered on 02/24/17 05: 04; Admin Dose 40 MG; Start 02/01/17 at 06:00 Acetaminophen/ Hydrocodone Bitart ([place] (5/325)) 1 tab Q4H PRN PO PAIN LEVEL 4 -7 Last administered on 02/09/17 18:48; Admin Dose 1 TAB; Start 02/01/17 at 20: 30 Acetaminophen/ Hydrocodone Bitart ([place] (5/325)) 2 tab Q4H PRN PO PAIN LEVEL 7 -10; Start 02/01/17 at 20:30 Bisacodyl (Dulcolax Supp) 10 mg BID PRN [place] CONSTIPATION; Start 02/01/17 at 20: 30 Sodium Biphosphate/ Sodium Phosphate (Fleet Enema) 133 ml BID PRN [place] CONSTIPATION; Start 02/01/17 at 20:30 Acetaminophen (Tylenol Liquid) 650 mg Q4H PRN GTB PAIN AND OR ELEVATED TEMP Last administered on 02/20/17 01:22; Admin Dose 650 MG; Start 02/05/17 at 18:30 Salmeterol Xinafoate/ Fluticasone (Advair 250/50 Diskus) 1 inh BID INH Last administered on 02/12/17 09:03; Admin Dose 1 INH; Start 02/07/17 at 11:00; Status Future Hold IV Flush (NS 10 ml) 10 ml PRN PRN IV IV PROTOCOL; Start 02/07/17 at 14:30 Diphenhydramine HCl 25 mg 25 mg Q6H PRN IV itching ; Start 02/07/17 at 20:00 Ondansetron HCl/ Sodium Chloride (Zofran Inj/NS) 54 ml @ 216 mls/hr Q6H PRN IV NAUSEA AND/OR VOMITING; Start 02/09/17 at 11:30 Prednisone (Prednisone) 40 mg DAILY PO Last administered on 02/12/17 09:03; Admin Dose 40 MG; Start 02/11/17 at 09:00; Status Future Hold Lorazepam (Ativan) 1 mg Q2 PRN IV AGITATION/ANXIETY Last administered on 16:47; Admin Dose 1 MG; Start 02/10/17 at 17:00 Lorazepam (Ativan) 1 mg Q1HWA PRN IM AGITATION/ANXIETY; Start 02/10/17 at 19:00 Trimethobenzamide HCl 200 mg 200 mg Q6H PRN IM NAUSEA AND/OR VOMITING; Start at 19:30 Norepinephrine/ Dextrose (Levophed/D5W) 500 ml @ 1.87 mls/hr TITRATE IV ; Start 02/13/17 at 12:00; Status Future hold Morphine Sulfate (morphine) 2 mg Q4H PRN IV pain Last administered on 02/23/17 15:57; Admin Dose 2 MG; Start 02/20/17 at 18:30 Docusate Sodium (Colace Liquid Cup) 100 mg BID NGT Last administered on 08:39; Admin Dose 100 MG; Start 02/20/17 at 21:00 SUSAN SANCHEZ February 24, 2017 11:13
[2017-02-24] MEDS: ALBUTEROL/IPRATROPIUM (NEB) 3 ML AMP NEB PRN (12:06)
[2017-02-24] MEDS: ACETYLCYSTEINE 20% 4 ML VIAL NEB SCH ×3 (12:06→19:40)
[2017-02-24] MEDS: morphine 2 MG INJ IV PRN (12:41)
--- NOTE | 2017-02-24 13:13 | PN ---
DATE: 02/24/2017 INFECTIOUS DISEASE PROGRESS NOTE SUBJECTIVE: The patient is awake, on face mask, looks comfortable. He had a low-grade fever of 100 this morning. VITAL SIGNS: Temperature 98, pulse 109, respirations 26, blood pressure 118/59, saturation 94 on 15 liters nonrebreather mask. LABORATORY DATA: WBC 16.5, H and H 8.3 and 26.1, platelets 460, neutrophils 87.6, no bands. BUN 13 , creatinine 0.59. MICROBIOLOGY: The patient had thoracentesis yesterday, fluid cultures pending. INDWELLINGS: PICC line, colostomy, Zeng catheter. DIAGNOSTICS: Chest x-ray revealed complete whiteout of the left hemothorax with mediastinal shift t he left, consistent with complete collapse of the left lung. Trace right pleural effusion with rivera cent atelectasis. PHYSICAL EXAMINATION: GENERAL: This is a well-nourished, well-developed, middle-aged white man who is awake, in no distre ss. HEENT: Head atraumatic, normocephalic. Sclerae anicteric. Buccal mucosa dry. NECK: Supple, trachea midline. CHEST: Rise symmetrical. Breath sounds diminished to bases. HEART: S1, S2. ABDOMEN: Soft. Bowel sounds present. Wound VAC present. EXTREMITIES: Without cyanosis. ASSESSMENT: 1. Resolving sepsis. 2. Crohn's disease status post perforated viscus repair on 02/01/2017, status post abscess drainag e on 02/14/2017, status post exploration and abdominal lavage on 02/15/2017 with the wound VAC place ment. 3. Respiratory failure. 4. Pleural effusion status post thoracentesis. 5. Status post sepsis pneumonia. PLAN: The patient completed antibiotics, currently off, hemodynamically clinically stable, pulmonar y, gastroenterology, and surgery on case, cardiology also on case. We will oneal culture him p.r.n. i f he spikes fever of 101 and above. Dictated By: THOMAS ELLIS BEEHIVE KILN SUPERVISOR for MICKY RAMÍREZ/YAN Conf#: [id number] DID#: [id number]
--- NOTE | 2017-02-24 13:52 | CONS ---
Date/Time of Note Date/Time of Note DATE: 02/24/17 TIME: 13:51 Assessment/Plan Assessment/Plan Additional Assessment/Plan Perforated colon status post surgery Severe sepsis Respiratory failure-extubated Low normal ejection fraction 50% Acute decompensated diastolic congestive heart failure Crohn's disease Acute blood loss anemia -Patient with collapsed left lung, undergoing treatment with our pulmonary colleagues. Continue diuretics as blood pressure and renal function permits and plan to titrate down over the next 1-2 days if continues to improve. May potassium above 4.0 and magnesium above 2.0. Consultation Date/Type/Reason Admit Date/Time Feb 01, 2017 at 03:10 Initial Consult Date 02/02/17 Type of Consultation: cv Referring Provider: VINCE PADGETT 24 HR Interval Summary Free Text/Dictation Patient with hypoxia noted today with left lung collapse Exam/Review of Systems Vital Signs Vitals Vital Signs Date Time Temp Pulse Resp B/P Pulse Ox O2 Delivery O2 Flow Rate FiO2 02/24/17 11:50 11 28 93 Non Rebreather Mask 15.0 02/24/17 05:00 118/59 02/24/17 04:00 98.0 02/20/17 10:55 40 Intake and Output 02/23/17 02/23/17 02/24/17 15:00 23:00 07:00 Intake Total 250 ml 150 ml 50 ml Output Total 1015 ml 1130 ml 1000 ml Balance -765 ml -980 ml -950 ml Exam Confused at times, on nonrebreather Constitutional: alert Head: normocephalic Respiratory: other (Decreased breath sounds left lung field, no wheezing) Cardiovascular: other (S1-S2 heard), regular rate and rhythm Gastrointestinal: bowel sounds, non-tender Extremities: edema Results Result Diagram: 02/24/17 0500 02/24/17 0500 Results 24 hrs Laboratory Tests Test 02/23/17 14:00 02/23/17 14:06 02/23/17 19:54 02/24/17 05:00 Body Fluid Type FLUID Body Fluid Volume 725.0 Body Fluid Color YELLOW Body Fluid Appearance SLIGHTLY HAZY Body Fluid WBC 263 Body Fluid RBC 1+ Body Fluid Neutrophils % 69 Body Fluid Lymphocytes (%) 19 Body Fluid Monocytes % 12 Body Fluid Eosinophils % 0 Body Fluid Basophils % 0 Body Fluid Other Cells (%) Body Fluid Glucose 85 Body Fluid Total Protein < 2.0 Body Fluid Lactate Dehydrogenase 387 Hemoglobin 8.3 #L 8.3 L Hematocrit 26.1 L 26.1 L Potassium Level 3.6 3.7 3.6 White Blood Count 16.5 #H Red Blood Count 2.91 L Mean Corpuscular Volume 89.7 Mean Corpuscular Hemoglobin 28.5 L Mean Corpuscular Hemoglobin Concent 31.8 L Red Cell Distribution Width 14.3 Platelet Count 460 H Mean Platelet Volume 10.5 H Neutrophils % 87.6 H Lymphocytes % 4.0 L Monocytes % 5.9 Eosinophils % 1.5 Basophils % 0.3 Nucleated Red Blood Cells % 0.0 Neutrophils # 14.5 H Lymphocytes # 0.7 L Monocytes # 1.0 H Eosinophils # 0.3 Basophils # 0.1 Nucleated Red Blood Cells # 0.0 Sodium Level 140 Chloride Level 97 Carbon Dioxide Level 31 Anion Gap 16 Blood Urea Nitrogen 13 Creatinine 0.59 L Glucose Level 85 Calcium Level 7.4 L Phosphorus Level 3.7 Magnesium Level 1.9 Test 02/24/17 05:46 02/24/17 07:00 02/24/17 11:40 Lab Scanned Report BLOOD TRANSFUSION Blood Gas Specimen Source Blood arterial Arterial Blood Date Drawn 02/24/2017 7:33:01 AM Arterial Blood pH (Temp corrected) 7.520 H Arterial Blood pCO2 (Temp correct) 38.1 Arterial Blood pO2 (Temp corrected) 63.1 L Arterial Blood HCO3 30.4 H Arterial Blood Base Excess 7.1 H Arterial Blood Oxygen Saturation 92.1 L Raffy Test ACCEPTAB Arterial Blood Gas Puncture Site Right Radial Arterial Blood Carboxyhemoglobin 0.1 Arterial Blood Methemoglobin 0.6 Blood Gas A-a O2 Differential 611.8 H Oxyhemoglobin Percent 91.5 L Total Hemoglobin 8.7 L Blood Gas Temperature 37.0 Blood Gas Modality MASK - NRB FiO2 100.0 Blood Gas Notified Whom JLD Blood Gas Notified Time 02/24/2017 8:12:43 AM Ammonia < 0 L Medications Medications Current Medications Pantoprazole (Protonix Iv) 40 mg DAILY@06 IV Last administered on 02/24/17 05: 04; Admin Dose 40 MG; Start 02/01/17 at 06:00 Acetaminophen/ Hydrocodone Bitart ([place] (5/325)) 1 tab Q4H PRN PO PAIN LEVEL 4 -7 Last administered on 02/09/17 18:48; Admin Dose 1 TAB; Start 02/01/17 at 20: 30 Acetaminophen/ Hydrocodone Bitart ([place] (5/325)) 2 tab Q4H PRN PO PAIN LEVEL 7 -10; Start 02/01/17 at 20:30 Bisacodyl (Dulcolax Supp) 10 mg BID PRN [place] CONSTIPATION; Start 02/01/17 at 20: 30 Sodium Biphosphate/ Sodium Phosphate (Fleet Enema) 133 ml BID PRN [place] CONSTIPATION; Start 02/01/17 at 20:30 Acetaminophen (Tylenol Liquid) 650 mg Q4H PRN GTB PAIN AND OR ELEVATED TEMP Last administered on 02/20/17 01:22; Admin Dose 650 MG; Start 02/05/17 at 18:30 Salmeterol Xinafoate/ Fluticasone (Advair 250/50 Diskus) 1 inh BID INH Last administered on 02/12/17 09:03; Admin Dose 1 INH; Start 02/07/17 at 11:00; Status Future Hold IV Flush (NS 10 ml) 10 ml PRN PRN IV IV PROTOCOL; Start 02/07/17 at 14:30 Diphenhydramine HCl 25 mg 25 mg Q6H PRN IV itching ; Start 02/07/17 at 20:00 Ondansetron HCl/ Sodium Chloride (Zofran Inj/NS) 54 ml @ 216 mls/hr Q6H PRN IV NAUSEA AND/OR VOMITING; Start 02/09/17 at 11:30 Prednisone (Prednisone) 40 mg DAILY PO Last administered on 02/12/17 09:03; Admin Dose 40 MG; Start 02/11/17 at 09:00; Status Future Hold Lorazepam (Ativan) 1 mg Q2 PRN IV AGITATION/ANXIETY Last administered on 16:47; Admin Dose 1 MG; Start 02/10/17 at 17:00 Lorazepam (Ativan) 1 mg Q1HWA PRN IM AGITATION/ANXIETY; Start 02/10/17 at 19:00 Trimethobenzamide HCl 200 mg 200 mg Q6H PRN IM NAUSEA AND/OR VOMITING; Start at 19:30 Norepinephrine/ Dextrose (Levophed/D5W) 500 ml @ 1.87 mls/hr TITRATE IV ; Start 02/13/17 at 12:00; Status Future hold Morphine Sulfate (morphine) 2 mg Q4H PRN IV pain Last administered on 12:41; Admin Dose 2 MG; Start 02/20/17 at 18:30 Docusate Sodium (Colace Liquid Cup) 100 mg BID NGT Last administered on 08:39; Admin Dose 100 MG; Start 02/20/17 at 21:00 Keith Gandhi DO February 24, 2017 13:52
[2017-02-24] MEDS ORDERED: MAGNESIUM SULFATE 2 GM/50 ML 50 ML IVPB ONE (14:00)
--- NOTE | 2017-02-24 15:33 | PN ---
Date/Time of Note Date/Time of Note DATE: 02/24/17 TIME: 15:28 Assessment/Plan VTE Prophylaxis VTE Prophylaxis Intervention: SCD's Lines/Catheters IV Catheter Type (from Nrs): PICC Line Central line still needed: Yes Urinary Cath still in place: Yes Reason Cath still needed: urinary retention Assessment/Plan Assessment/Plan Assessment/Plan Perforated sigmoid colon * Laparoscopic exploration,open sigmoid colectomy with Deena end colostomy with liver biopsy segment V h/o Crohn's disease Thrombocytopenia Liver Cirrhosis Anemia hemoglobin Atelectasis,compressive managed by pulmonary Plan: Continue present management Will reevaluate for Crohn's disease once recovered from surgery Subjective 24 Hr Interval Summary Free Text/Dictation * Course reviewed with RN * patient seen and examined * Collapsed left lung by x ray Exam/Review of Systems Vital Signs Vitals Vital Signs Date Time Temp Pulse Resp B/P Pulse Ox O2 Delivery O2 Flow Rate FiO2 02/24/17 12:00 105 02/24/17 11:50 28 93 Non Rebreather Mask 15.0 02/24/17 05:00 118/59 02/24/17 04:00 98.0 02/20/17 10:55 40 Intake and Output 02/23/17 02/23/17 02/24/17 15:00 23:00 07:00 Intake Total 250 ml 150 ml 50 ml Output Total 1015 ml 1130 ml 1125 ml Balance -765 ml -980 ml -1075 ml Exam Constitutional: frail Neck: non-tender, supple Respiratory: crackles/rales, diminished breath sounds Cardiovascular: nl pulses, regular rate and rhythm Gastrointestinal: non-tender, other (colostomy ), soft Musculoskeletal: nl extremities to inspection Lymph: nl lymph nodes Results Result Diagram: 02/24/17 0500 02/24/17 0500 Results 24 hrs Laboratory Tests Test 02/23/17 19:54 02/24/17 05:00 02/24/17 05:46 02/24/17 07:00 Potassium Level 3.7 3.6 White Blood Count 16.5 #H Red Blood Count 2.91 L Hemoglobin 8.3 L Hematocrit 26.1 L Mean Corpuscular Volume 89.7 Mean Corpuscular Hemoglobin 28.5 L Mean Corpuscular Hemoglobin Concent 31.8 L Red Cell Distribution Width 14.3 Platelet Count 460 H Mean Platelet Volume 10.5 H Neutrophils % 87.6 H Lymphocytes % 4.0 L Monocytes % 5.9 Eosinophils % 1.5 Basophils % 0.3 Nucleated Red Blood Cells % 0.0 Neutrophils # 14.5 H Lymphocytes # 0.7 L Monocytes # 1.0 H Eosinophils # 0.3 Basophils # 0.1 Nucleated Red Blood Cells # 0.0 Sodium Level 140 Chloride Level 97 Carbon Dioxide Level 31 Anion Gap 16 Blood Urea Nitrogen 13 Creatinine 0.59 L Glucose Level 85 Calcium Level 7.4 L Phosphorus Level 3.7 Magnesium Level 1.9 Lab Scanned Report BLOOD TRANSFUSION Blood Gas Specimen Source Blood arterial Arterial Blood Date Drawn 02/24/2017 7:33:01 AM Arterial Blood pH (Temp corrected) 7.520 H Arterial Blood pCO2 (Temp correct) 38.1 Arterial Blood pO2 (Temp corrected) 63.1 L Arterial Blood HCO3 30.4 H Arterial Blood Base Excess 7.1 H Arterial Blood Oxygen Saturation 92.1 L Raffy Test ACCEPTAB Arterial Blood Gas Puncture Site Right Radial Arterial Blood Carboxyhemoglobin 0.1 Arterial Blood Methemoglobin 0.6 Blood Gas A-a O2 Differential 611.8 H Oxyhemoglobin Percent 91.5 L Total Hemoglobin 8.7 L Blood Gas Temperature 37.0 Blood Gas Modality MASK - NRB FiO2 100.0 Blood Gas Notified Whom JLD Blood Gas Notified Time 02/24/2017 8:12:43 AM Test 02/24/17 11:40 Ammonia < 0 L Medications Medications Current Medications Pantoprazole (Protonix Iv) 40 mg DAILY@06 IV Last administered on 02/24/17 05: 04; Admin Dose 40 MG; Start 02/01/17 at 06:00 Acetaminophen/ Hydrocodone Bitart ([place] (5/325)) 1 tab Q4H PRN PO PAIN LEVEL 4 -7 Last administered on 02/09/17 18:48; Admin Dose 1 TAB; Start 02/01/17 at 20: 30 Acetaminophen/ Hydrocodone Bitart ([place] (5/325)) 2 tab Q4H PRN PO PAIN LEVEL 7 -10; Start 02/01/17 at 20:30 Bisacodyl (Dulcolax Supp) 10 mg BID PRN [place] CONSTIPATION; Start 02/01/17 at 20: 30 Sodium Biphosphate/ Sodium Phosphate (Fleet Enema) 133 ml BID PRN [place] CONSTIPATION; Start 02/01/17 at 20:30 Acetaminophen (Tylenol Liquid) 650 mg Q4H PRN GTB PAIN AND OR ELEVATED TEMP Last administered on 02/20/17 01:22; Admin Dose 650 MG; Start 02/05/17 at 18:30 Salmeterol Xinafoate/ Fluticasone (Advair 250/50 Diskus) 1 inh BID INH Last administered on 02/12/17 09:03; Admin Dose 1 INH; Start 02/07/17 at 11:00; Status Future Hold IV Flush (NS 10 ml) 10 ml PRN PRN IV IV PROTOCOL; Start 02/07/17 at 14:30 Diphenhydramine HCl 25 mg 25 mg Q6H PRN IV itching ; Start 02/07/17 at 20:00 Ondansetron HCl/ Sodium Chloride (Zofran Inj/NS) 54 ml @ 216 mls/hr Q6H PRN IV NAUSEA AND/OR VOMITING; Start 02/09/17 at 11:30 Prednisone (Prednisone) 40 mg DAILY PO Last administered on 02/12/17 09:03; Admin Dose 40 MG; Start 02/11/17 at 09:00; Status Future Hold Lorazepam (Ativan) 1 mg Q2 PRN IV AGITATION/ANXIETY Last administered on 16:47; Admin Dose 1 MG; Start 02/10/17 at 17:00 Lorazepam (Ativan) 1 mg Q1HWA PRN IM AGITATION/ANXIETY; Start 02/10/17 at 19:00 Trimethobenzamide HCl 200 mg 200 mg Q6H PRN IM NAUSEA AND/OR VOMITING; Start at 19:30 Norepinephrine/ Dextrose (Levophed/D5W) 500 ml @ 1.87 mls/hr TITRATE IV ; Start 02/13/17 at 12:00; Status Future hold Morphine Sulfate (morphine) 2 mg Q4H PRN IV pain Last administered on 12:41; Admin Dose 2 MG; Start 02/20/17 at 18:30 Docusate Sodium 100 mg 100 mg BID NGT Last administered on 02/22/17 08:39; Admin Dose 100 MG; Start 02/20/17 at 21:00 Magnesium Sulfate (Magnesium Sulfate 2 Gm/50 ml) 50 ml @ 25 mls/hr ONCE ONCE IVPB Last administered on 5/10/17at 14:58; Admin Dose 25 MLS/HR; Start at 14:00; Stop 02/24/17 at 15:59 SANDRA DAVIS MD February 24, 2017 15:33
[2017-02-24] MEDS: LORAZEPAM 2 MG INJ IV PRN (20:10)
[2017-02-25] VITALS (76 sets, daily range): BP systolic 71–133; BP diastolic 46–96; PULSE 103–137; RESP 8–35
[2017-02-25] MEDS: ACETAMINOPHEN 650MG/20.3ML CUP GTB PRN ×3 (00:33→20:00)
[2017-02-25] MEDS: POTASSIUM CHLORIDE 50 ML IVPB PRN ×2 (00:33→08:16)
[2017-02-25] MEDS ORDERED: ACETAMINOPHEN 1000MG/100ML IV 100 ML IVPB ONE (01:00)
[2017-02-25 01:03] LABS: AADO2 Arterial 619.1 mmHg (7.0-24.0); Allen Test ACCEPTAB; Arterial Base Excess 7.9 mmol/L (-3.0-3); Arterial COHb 0.3 % (0.0-3.0); Arterial Fraction of Oxyhgb 86.7 % (93.0-99.0); Arterial HCO3 31.4 mmol/L (22.0-26.0); Arterial MetHb 0.4 % (0.0-1.5); Arterial Total Hemglobin 9.5 g/dl (12.0-18.0); MODE HFNC
[2017-02-25] MEDS: ACETYLCYSTEINE 20% 4 ML VIAL NEB SCH ×4 (01:10→20:10)
[2017-02-25] MEDS: ALBUTEROL/IPRATROPIUM (NEB) 3 ML AMP HHN SCH ×3 (01:10→14:24)
[2017-02-25 03:47] LABS: AADO2 Arterial 603.4 mmHg (7.0-24.0); Allen Test ACCEPTAB; Arterial Base Excess 8.5 mmol/L (-3.0-3); Arterial COHb 0.3 % (0.0-3.0); Arterial HCO3 32.6 mmol/L (22.0-26.0); Arterial MetHb 0.2 % (0.0-1.5); Arterial Total Hemglobin 9.8 g/dl (12.0-18.0); Blood Gas IEPAP 15/5; Blood Gas PS 10; MODE MASK - BIPAP
[2017-02-25 05:38] LABS: ADD SCAN DIFF NO
[2017-02-25 05:42] LABS: BASOPHIL # 0.1 10^3/ul (0.0-0.1); BASOPHILS % 0.3 % (0.0-2.0); EOSINOPHILS # 0.2 10^3/ul (0.0-0.5); EOSINOPHILS % 1.2 % (0.0-7.0); HEMOGLOBIN 8.3 g/dl (14.0-18.0); LYMPHOCYTES # 0.8 10^3/ul (0.8-2.9); MEAN CORPUSCULAR HEMOGLOBIN 28.8 pg (29.0-33.0); MEAN CORPUSCULAR HGB CONC 31.9 g/dl (32.0-37.0); MEAN CORPUSCULAR VOLUME 90.3 fl (82.0-101.0); MEAN PLATELET VOLUME 10.9 fl (7.4-10.4); MONOCYTE # 1.3 10^3/ul (0.3-0.9); MONOCYTES % 6.5 % (0.0-11.0); NEUTROPHIL # 17.2 10^3/ul (1.6-7.5); NEUTROPHILS % 87.1 % (39.0-77.0); PLATELET COUNT 514 10^3/UL (140-415); RED BLOOD COUNT 2.88 10^6/ul (4.70-6.10); RED CELL DISTRIBUTION WIDTH 14.5 % (11.5-14.5); WHITE BLOOD COUNT 19.7 10^3/ul (4.8-10.8)
[2017-02-25] MEDS: PANTOPRAZOLE 40 MG INJ IV SCH (05:51)
[2017-02-25] MEDS: FUROSEMIDE 40 MG INJ IV SCH (05:51)
[2017-02-25 06:41] LABS: POTASSIUM 3.7 mmol/L (3.5-5.1)
[2017-02-25 06:44] LABS: CREATININE 0.51 mg/dl (0.61-1.24)
[2017-02-25 06:45] LABS: CALCIUM 7.7 mg/dl (8.4-10.2); MAGNESIUM 1.7 mg/dl (1.7-2.5)
--- NOTE | 2017-02-25 08:26 | RADRPT ---
PROCEDURE: Chest Radiograph. CLINICAL INDICATION: Pneumonia. CHF. TECHNIQUE: Single frontal chest radiograph. COMPARISON: Chest radiograph 02/24/2017 FINDINGS: A right upper extremity PICC is in unchanged position. There is persistent complete whiteout of the left hemithorax with air bronchograms consistent with complete collapse. The right lung remains cl ear. The bones are intact. IMPRESSION: 1. Stable radiographic appearance of chest compared to 02/24/2017 with complete whiteout of the lef t hemithorax. RPTAT: KK .Patrick Rodriguez MD, MD Date Time Electronically viewed and signed by .Patrick Rodriguez MD, on 02/25/2017 08:25 .B/
[2017-02-25 08:39] LABS: AADO2 Arterial 521.3 mmHg (7.0-24.0); Allen Test ACCEPTAB; Arterial Base Excess 10.3 mmol/L (-3.0-3); Arterial COHb 0.3 % (0.0-3.0); Arterial Fraction of Oxyhgb 97.7 % (93.0-99.0); Arterial HCO3 34.5 mmol/L (22.0-26.0); Arterial MetHb 0.5 % (0.0-1.5); Arterial Total Hemglobin 9.4 g/dl (12.0-18.0); Blood Gas IEPAP 15/5; MODE MASK - BIPAP
[2017-02-25] MEDS ORDERED: SUCCINYLCHOLINE CHLORIDE 100 MG/5 ML SYG IV ONE ×2 (10:00→12:00)
[2017-02-25] MEDS ORDERED: MIDAZOLAM 1 MG/ML 2 ML INJ IV ONE (10:00)
[2017-02-25] MEDS ORDERED: morphine 2 MG INJ IV ONE (10:00)
[2017-02-25] MEDS ORDERED: ETOMIDATE 20 MG INJ IV ONE (10:00)
[2017-02-25] MEDS: FENTAnyl (DRIP) 1000 mcg/100mL 100 ML IV SCH (10:15)
[2017-02-25] MEDS: MIDAZOLAM (DRIP) 50 mg/50 mL 50 ML IV SCH ×2 (10:15→18:11)
--- NOTE | 2017-02-25 11:03 | CONS ---
Date/Time of Note Date/Time of Note DATE: 02/25/17 TIME: 10:59 Consult Date/Type/Reason Admit Date/Time Feb 01, 2017 at 03:10 Type of Consultation: Pulmonary ICU Ordering Provider: VINCE PADGETT Subjective Patient placed on BiPAP overnight for increasing shortness of breath Significant lethargy this morning Saturating adequately Objective Vital Signs Date Time Temp Pulse Resp B/P Pulse Ox O2 Delivery O2 Flow Rate FiO2 02/25/17 08:56 131 100 100 02/25/17 08:47 43 02/25/17 08:00 97.4 125/85 BIPAP 02/24/17 13:00 15.0 Intake and Output 02/24/17 02/24/17 02/25/17 15:00 23:00 07:00 Intake Total 150 ml 300 ml 100 ml Output Total 550 ml 890 ml 900 ml Balance -400 ml -590 ml -800 ml Exam PHYSICAL EXAMINATION GENERAL chronically ill-appearing gentleman BiPAP VITAL SIGNS: see below. HEENT: Pupils equal, round, and reactive to light. CARDIAC: S1, S2, CHEST: Diminished air entry bilaterally. ABDOMEN: Mildly distended. Distal bowel sounds no guarding or rebound EXTREMITIES: No cyanosis, clubbing edema +2 NEUROLOGIC: Generalized weakness Results/Medications Result Diagram: 02/25/17 0450 02/25/17 0450 Results 24 hrs Laboratory Tests Test 02/24/17 11:40 02/24/17 21:15 02/25/17 00:48 02/25/17 03:30 Ammonia < 9 L Potassium Level 3.4 L Blood Gas Specimen Source Blood arterial Blood arterial Arterial Blood Date Drawn 02/25/2017 12:55:16 AM 02/25/2017 3:30:54 AM Arterial Blood pH (Temp corrected) 7.516 H 7.496 H Arterial Blood pCO2 (Temp correct) 39.7 43.1 Arterial Blood pO2 (Temp corrected) 54.2 *L 66.5 L Arterial Blood HCO3 31.4 H 32.6 H Arterial Blood Base Excess 7.9 H 8.5 H Arterial Blood Oxygen Saturation 87.3 L 92.5 L Raffy Test ACCEPTAB ACCEPTAB Arterial Blood Gas Puncture Site Right Radial Right Radial Arterial Blood Carboxyhemoglobin 0.3 0.3 Arterial Blood Methemoglobin 0.4 0.2 Blood Gas A-a O2 Differential 619.1 H 603.4 H Oxyhemoglobin Percent 86.7 L 92.0 L Total Hemoglobin 9.5 L 9.8 L Blood Gas Temperature 37.0 37.0 Blood Gas Actual Respiration Rate 32 32 Blood Gas Modality HFNC MASK - BIPAP FiO2 100.0 100.0 Blood Gas Critical Value Read Back AYO CHAPPELL Blood Gas Notified Whom PAU MAI Blood Gas Notified Time 02/25/2017 1:03:17 AM 02/25/2017 3:47:31 AM Blood Gas Respiration Rate 16.0 Blood Gas Pressure Support 10 Blood Gas IPAP/EPAP Ratio 15/ Test 02/25/17 04:50 02/25/17 07:00 White Blood Count 19.7 H Red Blood Count 2.88 L Hemoglobin 8.3 L Hematocrit 26.0 L Mean Corpuscular Volume 90.3 Mean Corpuscular Hemoglobin 28.8 L Mean Corpuscular Hemoglobin Concent 31.9 L Red Cell Distribution Width 14.5 Platelet Count 514 H Mean Platelet Volume 10.9 H Neutrophils % 87.1 H Lymphocytes % 4.0 L Monocytes % 6.5 Eosinophils % 1.2 Basophils % 0.3 Nucleated Red Blood Cells % 0.0 Neutrophils # 17.2 H Lymphocytes # 0.8 Monocytes # 1.3 H Eosinophils # 0.2 Basophils # 0.1 Nucleated Red Blood Cells # 0.0 Sodium Level 139 Potassium Level 3.7 Chloride Level 95 L Carbon Dioxide Level 32 H Anion Gap 16 Blood Urea Nitrogen 14 Creatinine 0.51 L Glucose Level 97 Calcium Level 7.7 L Phosphorus Level 4.0 Magnesium Level 1.7 Blood Gas Specimen Source Blood arterial Arterial Blood Date Drawn 02/25/2017 7:51:47 AM Arterial Blood pH (Temp corrected) 7.505 H Arterial Blood pCO2 (Temp correct) 44.7 Arterial Blood pO2 (Temp corrected) 147.0 H Arterial Blood HCO3 34.5 H Arterial Blood Base Excess 10.3 H Arterial Blood Oxygen Saturation 98.5 H Raffy Test ACCEPTAB Arterial Blood Gas Puncture Site Left Radial Arterial Blood Carboxyhemoglobin 0.3 Arterial Blood Methemoglobin 0.5 Blood Gas A-a O2 Differential 521.3 H Oxyhemoglobin Percent 97.7 Total Hemoglobin 9.4 L Blood Gas Temperature 37.0 Blood Gas Respiration Rate 16.0 Blood Gas Actual Respiration Rate 34 Blood Gas Modality MASK - BIPAP FiO2 100.0 Blood Gas IPAP/EPAP Ratio 15/5 Blood Gas Notified Whom JLD Blood Gas Notified Time 02/25/2017 8:39:39 AM Medications Current Medications Pantoprazole (Protonix Iv) 40 mg DAILY@06 IV Last administered on 02/25/17 05: 51; Admin Dose 40 MG; Start 02/01/17 at 06:00 Acetaminophen/ Hydrocodone Bitart ([place] (5/325)) 1 tab Q4H PRN PO PAIN LEVEL 4 -7 Last administered on 02/09/17 18:48; Admin Dose 1 TAB; Start 02/01/17 at 20: 30 Acetaminophen/ Hydrocodone Bitart ([place] (5/325)) 2 tab Q4H PRN PO PAIN LEVEL 7 -10; Start 02/01/17 at 20:30 Bisacodyl (Dulcolax Supp) 10 mg BID PRN [place] CONSTIPATION; Start 02/01/17 at 20: 30 Sodium Biphosphate/ Sodium Phosphate (Fleet Enema) 133 ml BID PRN [place] CONSTIPATION; Start 02/01/17 at 20:30 Acetaminophen (Tylenol Liquid) 650 mg Q4H PRN GTB PAIN AND OR ELEVATED TEMP Last administered on 02/25/17 00:33; Admin Dose 650 MG; Start 02/05/17 at 18:30 Salmeterol Xinafoate/ Fluticasone (Advair 250/50 Diskus) 1 inh BID INH Last administered on 02/12/17 09:03; Admin Dose 1 INH; Start 02/07/17 at 11:00; Status Future Hold IV Flush (NS 10 ml) 10 ml PRN PRN IV IV PROTOCOL; Start 02/07/17 at 14:30 Diphenhydramine HCl 25 mg 25 mg Q6H PRN IV itching ; Start 02/07/17 at 20:00 Ondansetron HCl/ Sodium Chloride (Zofran Inj/NS) 54 ml @ 216 mls/hr Q6H PRN IV NAUSEA AND/OR VOMITING; Start 02/09/17 at 11:30 Prednisone (Prednisone) 40 mg DAILY PO Last administered on 02/12/17 09:03; Admin Dose 40 MG; Start 02/11/17 at 09:00; Status Future Hold Lorazepam (Ativan) 1 mg Q2 PRN IV AGITATION/ANXIETY Last administered on 20:10; Admin Dose 1 MG; Start 02/10/17 at 17:00 Lorazepam (Ativan) 1 mg Q1HWA PRN IM AGITATION/ANXIETY; Start 02/10/17 at 19:00 Trimethobenzamide HCl 200 mg 200 mg Q6H PRN IM NAUSEA AND/OR VOMITING; Start at 19:30 Norepinephrine/ Dextrose (Levophed/D5W) 500 ml @ 1.87 mls/hr TITRATE IV ; Start 02/13/17 at 12:00; Status Future hold Morphine Sulfate (morphine) 2 mg Q4H PRN IV pain Last administered on 12:41; Admin Dose 2 MG; Start 02/20/17 at 18:30 Docusate Sodium 100 mg 100 mg QHS PRN NGT For Constipation; Start 02/25/17 at 21:00 Fentanyl 100 ml @ 2.5 mls/hr TITRATE IV ; Start 02/25/17 at 10:00 Midazolam HCl (Versed) 50 ml @ 1 mls/hr TITRATE IV ; Start 02/25/17 at 10:00 Etomidate (Amidate) 10 mg ONCE ONCE IV ; Start 02/25/17 at 10:00; Stop at 10:01; Status UNV Succinylcholine Chloride (Anectine Syringe) 100 mg ONCE ONCE IV ; Start at 10:00; Stop 02/25/17 at 10:01; Status UNV Midazolam HCl (Versed) 2 mg ONCE ONCE IV ; Start 02/25/17 at 10:00; Stop at 10:01; Status UNV Morphine Sulfate (morphine) 2 mg ONCE ONCE IV ; Start 02/25/17 at 10:00; Stop 02/25/17 at 10:01; Status UNV Assessment/Plan Chief Complaint/Hosp Course Assessment 1. Crohn's disease with perforation of sigmoid colon and sepsis status post arthroscopic sigmoid colectomy and end colostomy with lysis of adhesions 2. Resolved metabolic acidosis with septic shock 3. Improved electrolyte imbalance 4. Hypoxemic respiratory failure mucus plugging left mainstem bronchus will require intubation mechanical ventilation and bronchoscopy 5. Thrombocytopenia resolved, likely underlying pneumonia 6. Anemia worsening hemoglobin no active GI bleeding 7. Encephalopathy likely toxic metabolic Plan 1. Will require emergent intubation and bronchoscopy 2. Broncho-alveolar lavage with cultures to be sent 3. Continue surgical wound care 4. Continue broad-spectrum antibiotic coverage 5. Patient still has significant aspiration risk discussed with speech therapy 6. DVT GI prophylaxis Disposition Continue ICU care Problems: RAMON DOUGLAS MD, [facility] February 25, 2017 11:03
--- NOTE | 2017-02-25 11:07 | EN ---
Date/Time of Note Date/Time of Note DATE: 02/25/17 TIME: 11:03 Event Note Medicine Medicine Event Note Procedure note Endotracheal intubation Indication hypoxemic respiratory failure Description The patient was placed in supine position with neck extended his blood pressure EKG and pulse oximetry were continuously monitored. He received 10 mg of etomidate and 100 mg of succinylcholine. Using laryngoscope Jovita blade 4, Vocal cords were visualized noted to be normal in appearance and movement size 7.5 endotracheal tube was passed through the vocal cords without resistance. This was secured at 24 centimeters to the lip. CO2 capnometer was immediately positive. Patient had equal breath sounds bilaterally. He was placed mechanical ventilation post intubation chest x-ray requested Patient tolerated procedure without complication RAMON DOUGLAS MD, [facility] February 25, 2017 11:07
[2017-02-25 11:08] LABS: AADO2 Arterial 445.2 mmHg (7.0-24.0); Allen Test ACCEPTAB; Arterial Base Excess 5.9 mmol/L (-3.0-3); Arterial COHb 0.3 % (0.0-3.0); Arterial HCO3 31.4 mmol/L (22.0-26.0); Arterial MetHb 0.6 % (0.0-1.5); Arterial Total Hemglobin 8.5 g/dl (12.0-18.0); MODE VENT - AC
--- NOTE | 2017-02-25 11:10 | EN ---
Date/Time of Note Date/Time of Note DATE: 02/25/17 TIME: 11:08 Event Note Medicine Medicine Event Note Procedure note Procedure was bronchoscopy with lavage Indication was left mainstem bronchus mucus plugging with volume loss of left lung subsequent hypoxemic respiratory failure Description Patient was intubated on mechanical ventilation using a flexible fiberoptic bronchoscope endotracheal tube was entered. The main hira was noted to be sharp in appearance copious secretions could be seen coming from left mainstem bronchus. Right lung was examined in detail moderate secretions were noted and easily lavaged. All orifices were patent. Left lung was then entered. Copious secretions could be seen coming from the left lung. These were easily lavaged and anatomy was noted to be within normal limits with no bronchial lesions and normal mucosa. Bronchoalveolar lavage was performed left lingula with samples to be collected for Gram stain and culture. Patient tolerated procedure without complication postprocedure chest x-rays pending at time of this dictation RAMON DOUGLAS MD, [facility] February 25, 2017 11:10
--- NOTE | 2017-02-25 11:14 | RADRPT ---
PROCEDURE: XR Chest. CLINICAL INDICATION: Check nasogastric tube position. TECHNIQUE: Single frontal view. COMPARISON: 02/25/2017. 0538 hours. FINDINGS: There is no nasogastric tube visualized. There is a new endotracheal tube in satisfactory position with the tip 5.5 cm above the hira. There is right basilar atelectasis, unchanged. There is cam ed improved aeration of the left lung. The heart size is normal. There is a small right pleural effusion and moderate left pleural effusion. There is no pneumothorax. IMPRESSION: 1. There is no nasogastric tube visualized. 2. Endotracheal tube in satisfactory position. 3. Unchanged right basilar atelectasis. 4. Marked improved aeration of the left lung. 5. Small right pleural effusion and moderate left pleural effusion. RPTAT: QQ .Rogelio Vera MD, Date Time Electronically viewed and signed by .Rogelio Vera MD, on 02/25/2017 11:13 .R/
--- NOTE | 2017-02-25 11:49 | RADRPT ---
PROCEDURE: XR Chest AP portable CLINICAL INDICATION: Post intubation, post bronchoscopy TECHNIQUE: An AP portable radiograph of the chest was submitted. COMPARISON: Study earlier on the morning of the same date FINDINGS: Support Hardware: The endotracheal tube and a right upper extremity PICC catheter are stable in posi tioning. Cardiovascular: The cardiovascular silhouette appears unremarkable. Lung Clark: The left lung remains largely opacified with greatest density projecting through the he art within the left lower lobe with an atelectatic component. Subsegmental atelectasis is again see n within the medial right lung base slightly improved. Pleural Spaces: There is again suspicion of small bilateral pleural fluid accumulations. Left apica l pleural capping is again evident. Osseous Structures: The osseous structures appear intact. Soft Tissues: The soft tissues appear unremarkable. IMPRESSION: 1. The endotracheal tube and right upper extremity PICC catheter stable in positioning. 2. Persistent diffuse left lung infiltrate which is most dense seen to the heart with in the medial left lower lobe along with an atelectatic component. Subsegmental atelectasis is slightly improved at the medial right lung base. 3. Left apical pleural capping, unchanged with suggestion of small bilateral pleural fluid accumula tions, unchanged. Physician Lani Date Time Electronically viewed and signed by Physician Lani on 02/25/2017 11:49 /
[2017-02-25] MEDS ORDERED: ETOMIDATE 20 MG INJ ONE (12:00)
[2017-02-25] MEDS ORDERED: MIDAZOLAM 1 MG/ML 2 ML INJ ONE (12:00)
[2017-02-25] MEDS: PIPER-TAZO 3.375 GM IV (PMX) 100 ML IVPB SCH ×2 (12:13→22:00)
--- NOTE | 2017-02-25 12:28 | PN ---
Date/Time of Note Date/Time of Note DATE: 02/25/17 TIME: 12:21 Assessment/Plan VTE Prophylaxis VTE Prophylaxis Intervention: heparin Lines/Catheters IV Catheter Type (from Nrs): PICC Line Central line still needed: Yes Urinary Cath still in place: Yes Reason Cath still needed: urinary retention Assessment/Plan Chief Complaint/Hosp Course Assessment/Plan: 46M with: 1. Perforated sigmoid colon 2/2 Severe Crohn's colitis * S/p Urgent Open Cronin's procedure with end colostomy, liver biopsy and abdominal lavage 02/01/17P * S/p post operative paracolic abscess drained via CT 02/14/[address] * S/p Exploration of abdomen through recent laparotomy site with closure of fascia done 02/15/17 for Fascia dehiscence - Continue Wound care and wound Vac 2. Recurrent Resp failure: Extubated then reintubated 02/13: now extubated, on NRB. CXR with left sided whiteout - for CBT, and mucomist, per pulm hold off on bronch for now. 3. Exacerbation of Crohn's disease with acute colitis and diarrhea Cultures growing ecoli / proteus / enterococcus 4. Multifocal PNA + Mook Pleural effusions - Effusions likely hydrostatic from hypoalbuminemia - monitor, ID managing abx and antifungal 5. Severe Sepsis with lactic acidosis 2/2 severe colitis / PNA - now with fevers again, oneal cx, back on abx. 6. S/p Systemic shock (hypovolemic +septic) - again, see # 5, abx. 7. TPN therapy for low prealbumin + tube feeds - Gentle diuresis with daily albumin 8. Hx of heavy alcohol and tobacco use just until admission - monitor 9. Probable underlying COPD and Cirrhosis based on hx which explains hypoalbuminemia and anasarca - monitor 10. Severe recurrent anemia likely 2/2 occult blood loss from multiple sources : PRN transfusions 11. Hypomagnesemia - replete as needed * Low dose heparin for prophylaxis CRITICAL CARE TIME: 40 mins Problems: Subjective 24 Hr Interval Summary Free Text/Dictation Pt with worsening res distress this AM, now intubated. S/p bronchoscopy earlier today as well. Exam/Review of Systems Vital Signs Vitals Vital Signs Date Time Temp Pulse Resp B/P Pulse Ox O2 Delivery O2 Flow Rate FiO2 02/25/17 10:15 137 16 100 100 02/25/17 08:00 97.4 125/85 BIPAP 02/24/17 13:00 15.0 Intake and Output 02/24/17 02/24/17 02/25/17 15:00 23:00 07:00 Intake Total 150 ml 300 ml 100 ml Output Total 550 ml 890 ml 900 ml Balance -400 ml -590 ml -800 ml Exam Constitutional: intubated, NAD Head: normocephalic Eyes: PERRL, icteric ENMT: other (NGT) Respiratory: some diminished breath sounds, No wheezing Cardiovascular: regular rate and rhythm, No murmurs/extra sounds Gastrointestinal: other (midline surgical dressing with wound vac / L sided colostomy and drain / colostomy has dark green fluidy stool), soft otherwise Genitourinary - Male: other (significant scrotal and penile edema) Musculoskeletal: swelling (generalized severe anasarca) Extremities: pitting pedal edema Neurological: confused, lethargic Results Result Diagram: 02/25/17 0450 02/25/17 0450 Results 24 hrs Laboratory Tests Test 02/24/17 21:15 02/25/17 00:48 02/25/17 03:30 02/25/17 04:50 Potassium Level 3.4 L 3.7 Blood Gas Specimen Source Blood arterial Blood arterial Arterial Blood Date Drawn 02/25/2017 12:55:16 AM 02/25/2017 3:30:54 AM Arterial Blood pH (Temp corrected) 7.516 H 7.496 H Arterial Blood pCO2 (Temp correct) 39.7 43.1 Arterial Blood pO2 (Temp corrected) 54.2 *L 66.5 L Arterial Blood HCO3 31.4 H 32.6 H Arterial Blood Base Excess 7.9 H 8.5 H Arterial Blood Oxygen Saturation 87.3 L 92.5 L Raffy Test ACCEPTAB ACCEPTAB Arterial Blood Gas Puncture Site Right Radial Right Radial Arterial Blood Carboxyhemoglobin 0.3 0.3 Arterial Blood Methemoglobin 0.4 0.2 Blood Gas A-a O2 Differential 619.1 H 603.4 H Oxyhemoglobin Percent 86.7 L 92.0 L Total Hemoglobin 9.5 L 9.8 L Blood Gas Temperature 37.0 37.0 Blood Gas Actual Respiration Rate 32 32 Blood Gas Modality HFNC MASK - BIPAP FiO2 100.0 100.0 Blood Gas Critical Value Read Back AYO CHAPPELL Blood Gas Notified Whom PAU MAI Blood Gas Notified Time 02/25/2017 1:03:17 AM 02/25/2017 3:47:31 AM Blood Gas Respiration Rate 16.0 Blood Gas Pressure Support 10 Blood Gas IPAP/EPAP Ratio 15/5 White Blood Count 19.7 H Red Blood Count 2.88 L Hemoglobin 8.3 L Hematocrit 26.0 L Mean Corpuscular Volume 90.3 Mean Corpuscular Hemoglobin 28.8 L Mean Corpuscular Hemoglobin Concent 31.9 L Red Cell Distribution Width 14.5 Platelet Count 514 H Mean Platelet Volume 10.9 H Neutrophils % 87.1 H Lymphocytes % 4.0 L Monocytes % 6.5 Eosinophils % 1.2 Basophils % 0.3 Nucleated Red Blood Cells % 0.0 Neutrophils # 17.2 H Lymphocytes # 0.8 Monocytes # 1.3 H Eosinophils # 0.2 Basophils # 0.1 Nucleated Red Blood Cells # 0.0 Sodium Level 139 Chloride Level 95 L Carbon Dioxide Level 32 H Anion Gap 16 Blood Urea Nitrogen 14 Creatinine 0.51 L Glucose Level 97 Calcium Level 7.7 L Phosphorus Level 4.0 Magnesium Level 1.7 Test 02/25/17 07:00 02/25/17 11:00 Blood Gas Specimen Source Blood arterial Blood arterial Arterial Blood Date Drawn 02/25/2017 7:51:47 AM 02/25/2017 10:50:54 AM Arterial Blood pH (Temp corrected) 7.505 H 7.401 Arterial Blood pCO2 (Temp correct) 44.7 51.8 H Arterial Blood pO2 (Temp corrected) 147.0 H 216.0 H Arterial Blood HCO3 34.5 H 31.4 H Arterial Blood Base Excess 10.3 H 5.9 H Arterial Blood Oxygen Saturation 98.5 H 98.9 H Raffy Test ACCEPTAB ACCEPTAB Arterial Blood Gas Puncture Site Left Radial Right Radial Arterial Blood Carboxyhemoglobin 0.3 0.3 Arterial Blood Methemoglobin 0.5 0.6 Blood Gas A-a O2 Differential 521.3 H 445.2 H Oxyhemoglobin Percent 97.7 98.0 Total Hemoglobin 9.4 L 8.5 L Blood Gas Temperature 37.0 37.0 Blood Gas Respiration Rate 16.0 16.0 Blood Gas Actual Respiration Rate 34 18 Blood Gas Modality MASK - BIPAP VENT - AC FiO2 100.0 100.0 Blood Gas IPAP/EPAP Ratio 15/5 Blood Gas Notified Whom JLD JLD Blood Gas Notified Time 02/25/2017 8:39:39 AM 02/25/2017 11:08:28 AM Blood Gas Tidal Volume 550.0 Blood Gas Low PEEP Setting 5.0 Medications Medications Current Medications Pantoprazole (Protonix Iv) 40 mg DAILY@06 IV Last administered on 02/25/17 05: 51; Admin Dose 40 MG; Start 02/01/17 at 06:00 Acetaminophen/ Hydrocodone Bitart ([place] (5/325)) 1 tab Q4H PRN PO PAIN LEVEL 4 -7 Last administered on 02/09/17 18:48; Admin Dose 1 TAB; Start 02/01/17 at 20: 30 Acetaminophen/ Hydrocodone Bitart ([place] (5/325)) 2 tab Q4H PRN PO PAIN LEVEL 7 -10; Start 02/01/17 at 20:30 Bisacodyl (Dulcolax Supp) 10 mg BID PRN [place] CONSTIPATION; Start 02/01/17 at 20: 30 Sodium Biphosphate/ Sodium Phosphate (Fleet Enema) 133 ml BID PRN [place] CONSTIPATION; Start 02/01/17 at 20:30 Acetaminophen (Tylenol Liquid) 650 mg Q4H PRN GTB PAIN AND OR ELEVATED TEMP Last administered on 02/25/17 00:33; Admin Dose 650 MG; Start 02/05/17 at 18:30 Salmeterol Xinafoate/ Fluticasone (Advair 250/50 Diskus) 1 inh BID INH Last administered on 02/12/17 09:03; Admin Dose 1 INH; Start 02/07/17 at 11:00; Status Future Hold IV Flush (NS 10 ml) 10 ml PRN PRN IV IV PROTOCOL; Start 02/07/17 at 14:30 Diphenhydramine HCl 25 mg 25 mg Q6H PRN IV itching ; Start 02/07/17 at 20:00 Ondansetron HCl/ Sodium Chloride (Zofran Inj/NS) 54 ml @ 216 mls/hr Q6H PRN IV NAUSEA AND/OR VOMITING; Start 02/09/17 at 11:30 Prednisone (Prednisone) 40 mg DAILY PO Last administered on 02/12/17 09:03; Admin Dose 40 MG; Start 02/11/17 at 09:00; Status Future Hold Lorazepam (Ativan) 1 mg Q2 PRN IV AGITATION/ANXIETY Last administered on 20:10; Admin Dose 1 MG; Start 02/10/17 at 17:00 Lorazepam (Ativan) 1 mg Q1HWA PRN IM AGITATION/ANXIETY; Start 02/10/17 at 19:00 Trimethobenzamide HCl 200 mg 200 mg Q6H PRN IM NAUSEA AND/OR VOMITING; Start at 19:30 Norepinephrine/ Dextrose (Levophed/D5W) 500 ml @ 1.87 mls/hr TITRATE IV ; Start 02/13/17 at 12:00; Status Future hold Morphine Sulfate (morphine) 2 mg Q4H PRN IV pain Last administered on 12:41; Admin Dose 2 MG; Start 02/20/17 at 18:30 Docusate Sodium 100 mg 100 mg QHS PRN NGT For Constipation; Start 02/25/17 at 21:00 Fentanyl 100 ml @ 2.5 mls/hr TITRATE IV ; Start 02/25/17 at 10:00 Midazolam HCl 50 ml @ 1 mls/hr TITRATE IV ; Start 02/25/17 at 10:00 Piperacillin Sod/ Tazobactam Sod (Zosyn 3.375gm/ 100 ml (Pmx)) 100 ml @ 200 mls /hr Q8 IVPB Last administered on 02/25/17 12:13; Admin Dose 200 MLS/HR; Start 02/25/17 at 12:00 SUSAN SANCHEZ February 25, 2017 12:28
--- NOTE | 2017-02-25 13:17 | PN ---
DATE: 02/24/2017 SUBJECTIVE: The patient spiked fever of 102.5 yesterday. He is status post bronchoscopy, reintubat ed, in no distress, currently afebrile. LABORATORY DATA: WBC today 19.7 with H and H 8.3 and 26, platelets 514, neutrophils 87.1. BUN 14, creatinine 0.51. DIAGNOSTICS: Chest x-ray revealed right basilar atelectasis and improved aeration of the left lung. MICROBIOLOGY: Repeat cultures pending. ANTIMICROBIALS: The patient was started on Zosyn this morning. INDWELLINGS: Endotracheal tube, Zeng catheter, PICC line. PHYSICAL EXAMINATION: GENERAL: This is a well-developed, middle-aged white man who is intubated and sedated, in no distre ss. HEENT: Head atraumatic, normocephalic. Sclerae anicteric. Buccal mucosa dry. NECK: Supple, trachea midline. CHEST: Rise symmetrical. Breath sounds diminished to bases. HEART: S1, S2. ABDOMEN: Soft, bowel sounds present. EXTREMITIES: No cyanosis. ASSESSMENT: 1. Acute respiratory failure, possible aspiration, status post bronchoscopy this morning with karla recio 2. Status post perforated viscus repair on 02/01/2017, complicated by abscess drainage on 7, status post abdominal exploration and lavage on 02/15/2017. 3. Persistent fevers, likely pulmonary source. 4. Crohn's disease. PLAN: The patient remains hemodynamically stable. Started back on antibiotics. Bronchoalveolar la vage pending. Repeat cultures pending. Dictated By: [facility] [employer] for MICKY RAMÍREZ/YAN Conf#: [id number] DID#: [id number]
[2017-02-25 13:34] LABS: ADD UMIC YES; URINE BILIRUBIN (Dip) 1+ (NEGATIVE); URINE BLOOD (Dip) NEGATIVE (NEGATIVE); URINE COLOR YELLOW (YELLOW); URINE GLUCOSE (Dip) NEGATIVE (NEGATIVE); URINE KETONES (Dip) NEGATIVE (NEGATIVE); URINE LEUKOCYTE ESTERASE (Dip) NEGATIVE (NEGATIVE); URINE NITRITE (Dip) NEGATIVE (NEGATIVE); URINE TOTAL PROTEIN (Dip) TRACE (NEGATIVE); URINE UROBILINOGEN (Dip) 0.2 E.U./dL (0.1-1.0)
[2017-02-25 13:57] LABS: BACTERIA,URINE MANY; URIC ACID CRYSTALS,URINE MODERATE
[2017-02-25] MEDS ORDERED: MAGNESIUM SULFATE 1 GM/D5W 100 ML IVPB ONE ×2 (14:15→16:00)
[2017-02-25 14:38] LABS: ICTOTEST NEGATIVE (NEGATIVE)
[2017-02-25] MEDS ORDERED: SOD CHLORIDE 0.9% 250 ML IV ONE (15:00)
[2017-02-25] MEDS ORDERED: NORepinephrine 8MG/250 ML (PMX 250 ML IV SCH (16:00)
--- NOTE | 2017-02-25 16:51 | CONS ---
Date/Time of Note Date/Time of Note DATE: 02/25/17 TIME: 16:49 Assessment/Plan Assessment/Plan Additional Assessment/Plan Perforated colon status post surgery Severe sepsis Respiratory [id number] Low normal ejection fraction 50% Acute decompensated diastolic congestive heart failure Crohn's disease Acute blood loss anemia -Patient reintubated and status post bronchoscopy. Chest x-ray with significant improvement. Patient with blood pressure on the lower and since intubated and on sedation. Would DC IV Lasix, give gentle IV fluids for blood pressure. Maintain potassium above 4.0 and magnesium above 2.0. Consultation Date/Type/Reason Admit Date/Time Feb 01, 2017 at 03:10 Initial Consult Date 02/02/17 Type of Consultation: cv Referring Provider: VINCE PADGETT 24 HR Interval Summary Free Text/Dictation Patient reintubated this morning secondary to worsening respiratory status. Patient now with blood pressure on the lower end Exam/Review of Systems Vital Signs Vitals Vital Signs Date Time Temp Pulse Resp B/P Pulse Ox O2 Delivery O2 Flow Rate FiO2 02/25/17 14:32 117 23 99 70 02/25/17 08:00 97.4 125/85 BIPAP 02/24/17 13:00 15.0 Intake and Output 02/24/17 02/24/17 02/25/17 15:00 23:00 07:00 Intake Total 150 ml 300 ml 100 ml Output Total 550 ml 890 ml 900 ml Balance -400 ml -590 ml -800 ml Exam Sedated and intubated, no apparent distress Head: normocephalic ENMT: intubated Respiratory: other (Coarse breath sounds bilaterally, no wheezing) Cardiovascular: other (S1-S2 heard), regular rate and rhythm Gastrointestinal: bowel sounds, non-tender, soft Extremities: edema Results Result Diagram: 02/25/17 0450 02/25/17 0450 Results 24 hrs Laboratory Tests Test 02/24/17 21:15 02/25/17 00:48 02/25/17 03:30 02/25/17 04:50 Potassium Level 3.4 L 3.7 Blood Gas Specimen Source Blood arterial Blood arterial Arterial Blood Date Drawn 02/25/2017 12:55:16 AM 02/25/2017 3:30:54 AM Arterial Blood pH (Temp corrected) 7.516 H 7.496 H Arterial Blood pCO2 (Temp correct) 39.7 43.1 Arterial Blood pO2 (Temp corrected) 54.2 *L 66.5 L Arterial Blood HCO3 31.4 H 32.6 H Arterial Blood Base Excess 7.9 H 8.5 H Arterial Blood Oxygen Saturation 87.3 L 92.5 L Raffy Test ACCEPTAB ACCEPTAB Arterial Blood Gas Puncture Site Right Radial Right Radial Arterial Blood Carboxyhemoglobin 0.3 0.3 Arterial Blood Methemoglobin 0.4 0.2 Blood Gas A-a O2 Differential 619.1 H 603.4 H Oxyhemoglobin Percent 86.7 L 92.0 L Total Hemoglobin 9.5 L 9.8 L Blood Gas Temperature 37.0 37.0 Blood Gas Actual Respiration Rate 32 32 Blood Gas Modality HFNC MASK - BIPAP FiO2 100.0 100.0 Blood Gas Critical Value Read Back AYO CHAPPELL Blood Gas Notified Whom PAU MAI Blood Gas Notified Time 02/25/2017 1:03:17 AM 02/25/2017 3:47:31 AM Blood Gas Respiration Rate 16.0 Blood Gas Pressure Support 10 Blood Gas IPAP/EPAP Ratio 15/5 White Blood Count 19.7 H Red Blood Count 2.88 L Hemoglobin 8.3 L Hematocrit 26.0 L Mean Corpuscular Volume 90.3 Mean Corpuscular Hemoglobin 28.8 L Mean Corpuscular Hemoglobin Concent 31.9 L Red Cell Distribution Width 14.5 Platelet Count 514 H Mean Platelet Volume 10.9 H Neutrophils % 87.1 H Lymphocytes % 4.0 L Monocytes % 6.5 Eosinophils % 1.2 Basophils % 0.3 Nucleated Red Blood Cells % 0.0 Neutrophils # 17.2 H Lymphocytes # 0.8 Monocytes # 1.3 H Eosinophils # 0.2 Basophils # 0.1 Nucleated Red Blood Cells # 0.0 Sodium Level 139 Chloride Level 95 L Carbon Dioxide Level 32 H Anion Gap 16 Blood Urea Nitrogen 14 Creatinine 0.51 L Glucose Level 97 Calcium Level 7.7 L Phosphorus Level 4.0 Magnesium Level 1.7 Test 02/25/17 07:00 02/25/17 11:00 02/25/17 12:24 02/25/17 13:11 Blood Gas Specimen Source Blood arterial Blood arterial Arterial Blood Date Drawn 02/25/2017 7:51:47 AM 02/25/2017 10:50:54 AM Arterial Blood pH (Temp corrected) 7.505 H 7.401 Arterial Blood pCO2 (Temp correct) 44.7 51.8 H Arterial Blood pO2 (Temp corrected) 147.0 H 216.0 H Arterial Blood HCO3 34.5 H 31.4 H Arterial Blood Base Excess 10.3 H 5.9 H Arterial Blood Oxygen Saturation 98.5 H 98.9 H Raffy Test ACCEPTAB ACCEPTAB Arterial Blood Gas Puncture Site Left Radial Right Radial Arterial Blood Carboxyhemoglobin 0.3 0.3 Arterial Blood Methemoglobin 0.5 0.6 Blood Gas A-a O2 Differential 521.3 H 445.2 H Oxyhemoglobin Percent 97.7 98.0 Total Hemoglobin 9.4 L 8.5 L Blood Gas Temperature 37.0 37.0 Blood Gas Respiration Rate 16.0 16.0 Blood Gas Actual Respiration Rate 34 18 Blood Gas Modality MASK - BIPAP VENT - AC FiO2 100.0 100.0 Blood Gas IPAP/EPAP Ratio 15 Blood Gas Notified Whom JLD JLD Blood Gas Notified Time 02/25/2017 8:39:39 AM 02/25/2017 11:08:28 AM Blood Gas Tidal Volume 550.0 Blood Gas Low PEEP Setting 5.0 Lactic Acid Level 0.9 Urine Color YELLOW Urine Clarity CLEAR Urine pH 5.5 Urine Specific [place] 1.025 Urine Ketones NEGATIVE Urine Nitrite NEGATIVE Urine Bilirubin 1+ H Urine Ictotest NEGATIVE Urine Urobilinogen 0.2 E.U./dL Urine Leukocyte Esterase NEGATIVE Urine Microscopic RBC 5-10 Urine Microscopic WBC 10-25 Urine Uric Acid Crystals MODERATE Urine Bacteria MANY Urine Hemoglobin NEGATIVE Urine Glucose NEGATIVE Urine Total Protein TRACE Medications Medications Current Medications Pantoprazole (Protonix Iv) 40 mg DAILY@06 IV Last administered on 02/25/17 05: 51; Admin Dose 40 MG; Start 02/01/17 at 06:00 Acetaminophen/ Hydrocodone Bitart ([place] (5/325)) 1 tab Q4H PRN PO PAIN LEVEL 4 -7 Last administered on 02/09/17 18:48; Admin Dose 1 TAB; Start 02/01/17 at 20: 30 Acetaminophen/ Hydrocodone Bitart ([place] (5/325)) 2 tab Q4H PRN PO PAIN LEVEL 7 -10; Start 02/01/17 at 20:30 Bisacodyl (Dulcolax Supp) 10 mg BID PRN [place] CONSTIPATION; Start 02/01/17 at 20: 30 Sodium Biphosphate/ Sodium Phosphate (Fleet Enema) 133 ml BID PRN [place] CONSTIPATION; Start 02/01/17 at 20:30 Acetaminophen (Tylenol Liquid) 650 mg Q4H PRN GTB PAIN AND OR ELEVATED TEMP Last administered on 02/25/17 12:58; Admin Dose 650 MG; Start 02/05/17 at 18:30 Salmeterol Xinafoate/ Fluticasone (Advair 250/50 Diskus) 1 inh BID INH Last administered on 02/12/17 09:03; Admin Dose 1 INH; Start 02/07/17 at 11:00; Status Future Hold IV Flush (NS 10 ml) 10 ml PRN PRN IV IV PROTOCOL; Start 02/07/17 at 14:30 Diphenhydramine HCl 25 mg 25 mg Q6H PRN IV itching ; Start 02/07/17 at 20:00 Ondansetron HCl/ Sodium Chloride (Zofran Inj/NS) 54 ml @ 216 mls/hr Q6H PRN IV NAUSEA AND/OR VOMITING; Start 02/09/17 at 11:30 Prednisone (Prednisone) 40 mg DAILY PO Last administered on 02/12/17 09:03; Admin Dose 40 MG; Start 02/11/17 at 09:00; Status Future Hold Lorazepam (Ativan) 1 mg Q2 PRN IV AGITATION/ANXIETY Last administered on 20:10; Admin Dose 1 MG; Start 02/10/17 at 17:00 Lorazepam (Ativan) 1 mg Q1HWA PRN IM AGITATION/ANXIETY; Start 02/10/17 at 19:00 Trimethobenzamide HCl 200 mg 200 mg Q6H PRN IM NAUSEA AND/OR VOMITING; Start at 19:30 Norepinephrine/ Dextrose (Levophed/D5W) 500 ml @ 1.87 mls/hr TITRATE IV ; Start 02/13/17 at 12:00; Status Future hold Morphine Sulfate (morphine) 2 mg Q4H PRN IV pain Last administered on 12:41; Admin Dose 2 MG; Start 02/20/17 at 18:30 Docusate Sodium 100 mg 100 mg QHS PRN NGT For Constipation; Start 02/25/17 at 21:00 Fentanyl 100 ml @ 2.5 mls/hr TITRATE IV ; Start 02/25/17 at 10:00 Midazolam HCl 50 ml @ 1 mls/hr TITRATE IV ; Start 02/25/17 at 10:00 Piperacillin Sod/ Tazobactam Sod 100 ml @ 200 mls/hr Q8 IVPB Last administered on 02/25/17t 12:13; Admin Dose 200 MLS/HR; Start 02/25/17 at 12:00 Magnesium Sulfate/ Dextrose (Magnesium Sulfate 1 Gm/D5W) 100 ml @ 100 mls/hr ONCE ONCE IVPB ; Start 02/25/17 at 16:00; Stop 02/25/17 at 16:59 Keith Gandhi DO February 25, 2017 16:51
[2017-02-25] MEDS: IPRATROPIUM (HFA) 12.9 GM INHALER INH SCH (20:10)
[2017-02-25] MEDS: ALBUTEROL 18 GM INHALER INH SCH (20:10)
[2017-02-25] MEDS ORDERED: DOCUSATE SODIUM 10 MG/ML (10ML CUP) NGT PRN (21:00)
[2017-02-25 23:27] LABS: POTASSIUM 3.3 mmol/L (3.5-5.1)
[2017-02-25 23:30] LABS: MAGNESIUM 2.1 mg/dl (1.7-2.5)
[2017-02-26] VITALS (69 sets, daily range): BP systolic 80–125; BP diastolic 53–85; PULSE 90–125; RESP 15–24
[2017-02-26] MEDS: ACETAMINOPHEN 650MG/20.3ML CUP GTB PRN ×3 (01:21→18:09)
[2017-02-26] MEDS: POTASSIUM CHLORIDE 50 ML IVPB PRN ×4 (01:23→06:40)
[2017-02-26] MEDS: ALBUTEROL 18 GM INHALER INH SCH ×4 (01:31→20:14)
[2017-02-26] MEDS: IPRATROPIUM (HFA) 12.9 GM INHALER INH SCH ×4 (01:31→20:13)
[2017-02-26] MEDS: ACETYLCYSTEINE 20% 4 ML VIAL NEB SCH ×4 (01:32→20:15)
[2017-02-26 05:28] LABS: ADD SCAN DIFF NO
[2017-02-26] MEDS: PANTOPRAZOLE 40 MG INJ IV SCH (05:32)
[2017-02-26] MEDS: PIPER-TAZO 3.375 GM IV (PMX) 100 ML IVPB SCH (05:32)
[2017-02-26 05:33] LABS: BASOPHILS % 0.2 % (0.0-2.0); EOSINOPHILS # 0.5 10^3/ul (0.0-0.5); EOSINOPHILS % 2.8 % (0.0-7.0); HEMATOCRIT 23.9 % (42.0-52.0); HEMOGLOBIN 7.4 g/dl (14.0-18.0); LYMPHOCYTES # 0.9 10^3/ul (0.8-2.9); LYMPHOCYTES % 4.4 % (15.0-51.0); MEAN CORPUSCULAR HEMOGLOBIN 28.6 pg (29.0-33.0); MEAN CORPUSCULAR VOLUME 92.3 fl (82.0-101.0); MEAN PLATELET VOLUME 10.8 fl (7.4-10.4); MONOCYTES % 5.1 % (0.0-11.0); NEUTROPHIL # 16.9 10^3/ul (1.6-7.5); NEUTROPHILS % 86.4 % (39.0-77.0); PLATELET COUNT 474 10^3/UL (140-415); RED BLOOD COUNT 2.59 10^6/ul (4.70-6.10); RED CELL DISTRIBUTION WIDTH 14.8 % (11.5-14.5); WHITE BLOOD COUNT 19.5 10^3/ul (4.8-10.8)
[2017-02-26 06:01] LABS: POTASSIUM 3.8 mmol/L (3.5-5.1)
[2017-02-26 06:04] LABS: CREATININE 0.86 mg/dl (0.61-1.24)
[2017-02-26 06:05] LABS: CALCIUM 7.6 mg/dl (8.4-10.2); MAGNESIUM 2.1 mg/dl (1.7-2.5); PHOSPHORUS 4.7 mg/dl (2.5-4.9)
--- NOTE | 2017-02-26 09:15 | PN ---
Date/Time of Note Date/Time of Note DATE: 02/25/17 TIME: 12:06 Assessment/Plan Lines/Catheters IV Catheter Type (from [facility]): PICC Line Ezng in Place (from [facility]): Yes Assessment/Plan Chief Complaint/Hosp Course Coverage for Dr. Kuo: 1. Crohn's disease with sigmoid perforation and abdominal sepsis complicated with dehiscence and re-closure and washout -abx -supportive -judicious fluid management 2. Respiratory re-failure with left sided white out s/p re-intubation this am -vent management -pulmonary toilette -abx per ID -judicious fluid management with gentle diuresis 3. Fever probably 2nd #2 -as above 4. Anemia -monitor and tx prn 5. Encephalopathy ? toxic metabolic -? imaging at some point -tx as above 6. Leukocytosis with Sepsis (multifactorial with lung, abdomen, ? other) -as above 7. Thrombocytosis 2nd inflammatory state -monitor 8. Significant hypoalbuminemia multifactorial -eventual nutritional optimization Thank you, Late entry 02/25 Problems: Subjective 24 Hr Interval Summary Fever. Continued respiratory failure with left sided white out requiring re- intubation this morning. No cough. No sz. No bleeding. No bloating. No rashes. Ostomy functional. No vomiting. Exam/Review of Systems Vital Signs Vitals Vital Signs Date Time Temp Pulse Resp B/P Pulse Ox O2 Delivery O2 Flow Rate FiO2 02/26/17 08:47 115 02/26/17 07:30 21 109/65 96 02/26/17 07:00 Mechanical Ventilator 02/26/17 05:25 35 02/26/17 04:00 100.0 02/24/17 13:00 15.0 Intake and Output 02/25/17 02/25/17 02/26/17 15:00 23:00 07:00 Intake Total 243 ml 636.0 ml 747.5 ml Output Total 600 ml 280 ml 260 ml Balance -357 ml 356.0 ml 487.5 ml Exam Constitutional: other (Intubated and sedated), No alert, No oriented Psych: confusion, No nl mood/affect Head: atraumatic, normocephalic Eyes: PERRL, nl conjunctiva, No icteric ENMT: intubated, mucosa pink and moist, nl external ears & nose, nl lips & teeth Neck: non-tender, supple Respiratory: diminished breath sounds, No congested cough, No normal air movement (Left sided diminished) Cardiovascular: No edema, No regular rate and rhythm (tachy) Gastrointestinal: other (Ostomy pink/patent), soft, No distended Musculoskeletal: nl extremities to inspection, No joint tenderness, No nl gait and stance Extremities: No calf tenderness, No cyanosis Neurological: No nl mental status, No nl speech, No nl strength Skin: nl turgor, No diaphoresis Lymph: nl lymph nodes Results Result Diagram: 02/26/17 0445 02/26/17 0445 DAY SMITH MD February 26, 2017 09:15
[2017-02-26 09:21] LABS: AADO2 Arterial 97.8 mmHg (7.0-24.0); Allen Test ACCEPTAB; Arterial Base Excess 4.8 mmol/L (-3.0-3); Arterial COHb 0.5 % (0.0-3.0); Arterial Fraction of Oxyhgb 92.5 % (93.0-99.0); Arterial HCO3 28.7 mmol/L (22.0-26.0); Arterial MetHb 0.2 % (0.0-1.5); MODE VENT - AC
--- NOTE | 2017-02-26 10:34 | RADRPT ---
PROCEDURE: XR Chest. CLINICAL INDICATION: Pneumonia; CHF. TECHNIQUE: Single frontal view of the chest was obtained. COMPARISON: Chest x-ray 02/25/2017 11:29 a.m. FINDINGS: The soft tissues are normal. There is left apical pleural thickening. The bony elements are normal . The left ventricle is mildly enlarged. The cardiomediastinal silhouette and hilar structures are normal. The pulmonary vasculature is increased. There is a left-sided aorta. There are asymmetric pulmonary infiltrates greater in the left perihilar area and left lung and in the right lower lobe. Bilateral pleural effusions are present. PICC line catheter enters a right arm with its tip in the superior vena cava. An NG tube is positioned distal to the GE junction. An endotracheal tube is i n place with its distal tip 2.8 cm from the hira. IMPRESSION: 1. Cardiomegaly with asymmetric infiltrates more prominent in the left lung and in the right lower l brianna field. A pneumonia, or pneumonia with asymmetric pulmonary edema from CHF might present this fa shion. 2. Satisfactory positioning of the PICC line catheter, endotracheal tube and nasogastric tube. 3. Left apical pleural thickening. RPTAT:AAJJ Physician Rukhsana Date Time Electronically viewed and signed by Physician Rukhsana on 02/26/2017 10:34 [id number]/
--- NOTE | 2017-02-26 11:16 | CONS ---
Date/Time of Note Date/Time of Note DATE: 02/26/17 TIME: 11:12 Assessment/Plan Assessment/Plan Additional Assessment/Plan Perforated sigmoid colon * Laparoscopic exploration,open sigmoid colectomy with Deena end colostomy with liver biopsy segment V h/o Crohn's disease Respiratory failure secondary Thrombocytopenia Liver Cirrhosis Anemia hemoglobin Atelectasis,compressive managed by pulmonary Plan: Continue present management Will reevaluate for Crohn's disease once recovered from surgery Further recommendations depend on clinical course Patient seen in collaboration with Dr. Jackson Consultation Date/Type/Reason Admit Date/Time Feb 01, 2017 at 03:10 Initial Consult Date 02/02/17 Type of Consultation: Gastroenterology Referring Provider: VINCE PADGETT 24 HR Interval Summary Free Text/Dictation Thoracentesis planned today Intubated but not sedated and following commands Hemoglobin at 7.4, all transfusions per Dr. Kuo Tube feed with minimal residual Exam/Review of Systems Vital Signs Vitals Vital Signs Date Time Temp Pulse Resp B/P Pulse Ox O2 Delivery O2 Flow Rate FiO2 02/26/17 10:30 116 21 97/63 94 02/26/17 10:00 Mechanical Ventilator 02/26/17 08:00 102.5 02/26/17 05:25 35 02/24/17 13:00 15.0 Intake and Output 02/25/17 02/25/17 02/26/17 15:00 23:00 07:00 Intake Total 243 ml 636.0 ml 747.5 ml Output Total 600 ml 280 ml 260 ml Balance -357 ml 356.0 ml 487.5 ml Exam Constitutional: frail Neck: non-tender, supple Respiratory: crackles/rales, diminished breath sounds Cardiovascular: nl pulses, regular rate and rhythm Gastrointestinal: non-tender, other (colostomy ), soft Musculoskeletal: nl extremities to inspection Lymph: nl lymph nodes Results Result Diagram: 02/26/17 0445 02/26/17 0445 Results 24 hrs Laboratory Tests Test 02/25/17 12:24 02/25/17 13:11 02/25/17 22:15 02/26/17 04:45 Lactic Acid Level 0.9 Urine Color YELLOW Urine Clarity CLEAR Urine pH 5.5 Urine Specific [place] 1.025 Urine Ketones NEGATIVE Urine Nitrite NEGATIVE Urine Bilirubin 1+ H Urine Ictotest NEGATIVE Urine Urobilinogen 0.2 E.U./dL Urine Leukocyte Esterase NEGATIVE Urine Microscopic RBC 5-10 Urine Microscopic WBC 10-25 Urine Uric Acid Crystals MODERATE Urine Bacteria MANY Urine Hemoglobin NEGATIVE Urine Glucose NEGATIVE Urine Total Protein TRACE Potassium Level 3.3 L 3.8 Magnesium Level 2.1 2.1 White Blood Count 19.5 H Red Blood Count 2.59 L Hemoglobin 7.4 L Hematocrit 23.9 L Mean Corpuscular Volume 92.3 Mean Corpuscular Hemoglobin 28.6 L Mean Corpuscular Hemoglobin Concent 31.0 L Red Cell Distribution Width 14.8 H Platelet Count 474 H Mean Platelet Volume 10.8 H Neutrophils % 86.4 H Lymphocytes % 4.4 L Monocytes % 5.1 Eosinophils % 2.8 Basophils % 0.2 Nucleated Red Blood Cells % 0.0 Neutrophils # 16.9 H Lymphocytes # 0.9 Monocytes # 1.0 H Eosinophils # 0.5 Basophils # 0.0 Nucleated Red Blood Cells # 0.0 Sodium Level 140 Chloride Level 97 Carbon Dioxide Level 33 H Anion Gap 14 Blood Urea Nitrogen 18 Creatinine 0.86 Glucose Level 106 Calcium Level 7.6 L Phosphorus Level 4.7 Test 02/26/17 07:00 02/26/17 09:30 Blood Gas Specimen Source Blood arterial Arterial Blood Date Drawn 02/26/2017 7:50:22 AM Arterial Blood pH (Temp corrected) 7.476 H Arterial Blood pCO2 (Temp correct) 39.8 Arterial Blood pO2 (Temp corrected) 69.3 L Arterial Blood HCO3 28.7 H Arterial Blood Base Excess 4.8 H Arterial Blood Oxygen Saturation 93.2 L Raffy Test ACCEPTAB Arterial Blood Gas Puncture Site Left Radial Arterial Blood Carboxyhemoglobin 0.5 Arterial Blood Methemoglobin 0.2 Blood Gas A-a O2 Differential 97.8 H Oxyhemoglobin Percent 92.5 L Total Hemoglobin 10.0 L Blood Gas Temperature 37.0 Blood Gas Respiration Rate 16.0 Blood Gas Actual Respiration Rate 19 Blood Gas Modality VENT - AC FiO2 30.0 Blood Gas Tidal Volume 550.0 Blood Gas Low PEEP Setting 5.0 Blood Gas Notified Whom JLD Blood Gas Notified Time 02/26/2017 9:20:36 AM Lactic Acid Level 2.0 Medications Medications Current Medications Pantoprazole (Protonix Iv) 40 mg DAILY@06 IV Last administered on 02/26/17t 05: 32; Admin Dose 40 MG; Start 02/01/17 at 06:00 Acetaminophen/ Hydrocodone Bitart ([place] (5/325)) 1 tab Q4H PRN PO PAIN LEVEL 4 -7 Last administered on 02/09/17 18:48; Admin Dose 1 TAB; Start 02/01/17 at 20: 30 Acetaminophen/ Hydrocodone Bitart ([place] (5/325)) 2 tab Q4H PRN PO PAIN LEVEL 7 -10; Start 02/01/17 at 20:30 Bisacodyl (Dulcolax Supp) 10 mg BID PRN [place] CONSTIPATION; Start 02/01/17 at 20: 30 Sodium Biphosphate/ Sodium Phosphate (Fleet Enema) 133 ml BID PRN [place] CONSTIPATION; Start 02/01/17 at 20:30 Acetaminophen (Tylenol Liquid) 650 mg Q4H PRN GTB PAIN AND OR ELEVATED TEMP Last administered on 02/26/17 08:37; Admin Dose 650 MG; Start 02/05/17 at 18:30 Salmeterol Xinafoate/ Fluticasone (Advair 250/50 Diskus) 1 inh BID INH Last administered on 02/12/17 09:03; Admin Dose 1 INH; Start 02/07/17 at 11:00; Status Future Hold IV Flush (NS 10 ml) 10 ml PRN PRN IV IV PROTOCOL; Start 02/07/17 at 14:30 Diphenhydramine HCl 25 mg 25 mg Q6H PRN IV itching ; Start 02/07/17 at 20:00 Ondansetron HCl/ Sodium Chloride (Zofran Inj/NS) 54 ml @ 216 mls/hr Q6H PRN IV NAUSEA AND/OR VOMITING; Start 02/09/17 at 11:30 Prednisone (Prednisone) 40 mg DAILY PO Last administered on 02/12/17 09:03; Admin Dose 40 MG; Start 02/11/17 at 09:00; Status Future Hold Lorazepam (Ativan) 1 mg Q2 PRN IV AGITATION/ANXIETY Last administered on 20:10; Admin Dose 1 MG; Start 02/10/17 at 17:00 Lorazepam (Ativan) 1 mg Q1HWA PRN IM AGITATION/ANXIETY; Start 02/10/17 at 19:00 Trimethobenzamide HCl 200 mg 200 mg Q6H PRN IM NAUSEA AND/OR VOMITING; Start at 19:30 Norepinephrine/ Dextrose (Levophed/D5W) 500 ml @ 1.87 mls/hr TITRATE IV ; Start 02/13/17 at 12:00; Status Future hold Morphine Sulfate (morphine) 2 mg Q4H PRN IV pain Last administered on 12:41; Admin Dose 2 MG; Start 02/20/17 at 18:30 Docusate Sodium 100 mg 100 mg QHS PRN NGT For Constipation; Start 02/25/17 at 21:00 Fentanyl 100 ml @ 2.5 mls/hr TITRATE IV Last administered on 02/25/17 10:15; Admin Dose 3 MLS/HR; Start 02/25/17 at 10:00 Midazolam HCl 50 ml @ 1 mls/hr TITRATE IV Last administered on 02/25/17 18:11 ; Admin Dose 3 MLS/HR; Start 02/25/17 at 10:00 Piperacillin Sod/ Tazobactam Sod (Zosyn 3.375gm/ 100 ml (Pmx)) 100 ml @ 200 mls /hr Q8 IVPB Last administered on 02/26/17 05:32; Admin Dose 200 MLS/HR; Start 02/25/17 at 12:00 TONY MCCRAY February 26, 2017 11:16
--- NOTE | 2017-02-26 12:26 | CONS ---
Date/Time of Note Date/Time of Note DATE: 02/26/17 TIME: 12:23 Assessment/Plan Assessment/Plan Additional Assessment/Plan Perforated colon status post surgery Severe sepsis Respiratory [id number] Low normal ejection fraction 50% Acute decompensated diastolic congestive heart failure Crohn's disease Acute blood loss anemia -Patient with tachycardia and fevers overnight. Sinus tachycardia likely manifestation of fevers, sepsis and respiratory failure. IV diuretics on hold. Would not restart until blood pressure remains stable. Antibiotics as per infectious disease. Updated patient's family at bedside regarding cardiac status. Consultation Date/Type/Reason Admit Date/Time Feb 01, 2017 at 03:10 Initial Consult Date 02/02/17 Type of Consultation: cv Referring Provider: VINCE PADGETT 24 HR Interval Summary Free Text/Dictation Patient remains intubated and sedated. Family at bedside. Febrile overnight with tachycardia. Exam/Review of Systems Vital Signs Vitals Vital Signs Date Time Temp Pulse Resp B/P Pulse Ox O2 Delivery O2 Flow Rate FiO2 02/26/17 10:30 116 21 97/63 94 02/26/17 10:00 Mechanical Ventilator 02/26/17 08:00 102.5 02/26/17 08:00 35 02/24/17 13:00 15.0 Intake and Output 02/25/17 02/25/17 02/26/17 15:00 23:00 07:00 Intake Total 243 ml 636.0 ml 747.5 ml Output Total 600 ml 280 ml 260 ml Balance -357 ml 356.0 ml 487.5 ml Exam Sedated and intubated, intermittently awake. No apparent distress Head: normocephalic ENMT: intubated Respiratory: other (Coarse breath sounds bilaterally with scattered rhonchi, no wheezing) Cardiovascular: other (S1-S2 heard), regular rate and rhythm Gastrointestinal: bowel sounds, non-tender, soft Extremities: edema, other (No cyanosis) Results Result Diagram: 02/26/17 0445 02/26/17 0445 Results 24 hrs Laboratory Tests Test 02/25/17 12:24 02/25/17 13:11 02/25/17 22:15 02/26/17 04:45 Lactic Acid Level 0.9 Urine Color YELLOW Urine Clarity CLEAR Urine pH 5.5 Urine Specific [place] 1.025 Urine Ketones NEGATIVE Urine Nitrite NEGATIVE Urine Bilirubin 1+ H Urine Ictotest NEGATIVE Urine Urobilinogen 0.2 E.U./dL Urine Leukocyte Esterase NEGATIVE Urine Microscopic RBC 5-10 Urine Microscopic WBC 10-25 Urine Uric Acid Crystals MODERATE Urine Bacteria MANY Urine Hemoglobin NEGATIVE Urine Glucose NEGATIVE Urine Total Protein TRACE Potassium Level 3.3 L 3.8 Magnesium Level 2.1 2.1 White Blood Count 19.5 H Red Blood Count 2.59 L Hemoglobin 7.4 L Hematocrit 23.9 L Mean Corpuscular Volume 92.3 Mean Corpuscular Hemoglobin 28.6 L Mean Corpuscular Hemoglobin Concent 31.0 L Red Cell Distribution Width 14.8 H Platelet Count 474 H Mean Platelet Volume 10.8 H Neutrophils % 86.4 H Lymphocytes % 4.4 L Monocytes % 5.1 Eosinophils % 2.8 Basophils % 0.2 Nucleated Red Blood Cells % 0.0 Neutrophils # 16.9 H Lymphocytes # 0.9 Monocytes # 1.0 H Eosinophils # 0.5 Basophils # 0.0 Nucleated Red Blood Cells # 0.0 Sodium Level 140 Chloride Level 97 Carbon Dioxide Level 33 H Anion Gap 14 Blood Urea Nitrogen 18 Creatinine 0.86 Glucose Level 106 Calcium Level 7.6 L Phosphorus Level 4.7 Test 02/26/17 07:00 02/26/17 09:30 Blood Gas Specimen Source Blood arterial Arterial Blood Date Drawn 02/26/2017 7:50:22 AM Arterial Blood pH (Temp corrected) 7.476 H Arterial Blood pCO2 (Temp correct) 39.8 Arterial Blood pO2 (Temp corrected) 69.3 L Arterial Blood HCO3 28.7 H Arterial Blood Base Excess 4.8 H Arterial Blood Oxygen Saturation 93.2 L Raffy Test ACCEPTAB Arterial Blood Gas Puncture Site Left Radial Arterial Blood Carboxyhemoglobin 0.5 Arterial Blood Methemoglobin 0.2 Blood Gas A-a O2 Differential 97.8 H Oxyhemoglobin Percent 92.5 L Total Hemoglobin 10.0 L Blood Gas Temperature 37.0 Blood Gas Respiration Rate 16.0 Blood Gas Actual Respiration Rate 19 Blood Gas Modality VENT - AC FiO2 30.0 Blood Gas Tidal Volume 550.0 Blood Gas Low PEEP Setting 5.0 Blood Gas Notified Whom JLD Blood Gas Notified Time 02/26/2017 9:20:36 AM Lactic Acid Level 2.0 Medications Medications Current Medications Pantoprazole (Protonix Iv) 40 mg DAILY@06 IV Last administered on 02/26/17 05: 32; Admin Dose 40 MG; Start 02/01/17 at 06:00 Acetaminophen/ Hydrocodone Bitart ([place] (5/325)) 1 tab Q4H PRN PO PAIN LEVEL 4 -7 Last administered on 02/09/17 18:48; Admin Dose 1 TAB; Start 02/01/17 at 20: 30 Acetaminophen/ Hydrocodone Bitart ([place] (5/325)) 2 tab Q4H PRN PO PAIN LEVEL 7 -10; Start 02/01/17 at 20:30 Bisacodyl (Dulcolax Supp) 10 mg BID PRN [place] CONSTIPATION; Start 02/01/17 at 20: 30 Sodium Biphosphate/ Sodium Phosphate (Fleet Enema) 133 ml BID PRN [place] CONSTIPATION; Start 02/01/17 at 20:30 Acetaminophen (Tylenol Liquid) 650 mg Q4H PRN GTB PAIN AND OR ELEVATED TEMP Last administered on 02/26/17 08:37; Admin Dose 650 MG; Start 02/05/17 at 18:30 Salmeterol Xinafoate/ Fluticasone (Advair 250/50 Diskus) 1 inh BID INH Last administered on 02/12/17 09:03; Admin Dose 1 INH; Start 02/07/17 at 11:00; Status Future Hold IV Flush (NS 10 ml) 10 ml PRN PRN IV IV PROTOCOL; Start 02/07/17 at 14:30 Diphenhydramine HCl 25 mg 25 mg Q6H PRN IV itching ; Start 02/07/17 at 20:00 Ondansetron HCl/ Sodium Chloride (Zofran Inj/NS) 54 ml @ 216 mls/hr Q6H PRN IV NAUSEA AND/OR VOMITING; Start 02/09/17 at 11:30 Prednisone (Prednisone) 40 mg DAILY PO Last administered on 02/12/17 09:03; Admin Dose 40 MG; Start 02/11/17 at 09:00; Status Future Hold Lorazepam (Ativan) 1 mg Q2 PRN IV AGITATION/ANXIETY Last administered on 20:10; Admin Dose 1 MG; Start 02/10/17 at 17:00 Lorazepam (Ativan) 1 mg Q1HWA PRN IM AGITATION/ANXIETY; Start 02/10/17 at 19:00 Trimethobenzamide HCl 200 mg 200 mg Q6H PRN IM NAUSEA AND/OR VOMITING; Start at 19:30 Norepinephrine/ Dextrose (Levophed/D5W) 500 ml @ 1.87 mls/hr TITRATE IV ; Start 02/13/17 at 12:00; Status Future hold Morphine Sulfate (morphine) 2 mg Q4H PRN IV pain Last administered on 12:41; Admin Dose 2 MG; Start 02/20/17 at 18:30 Docusate Sodium 100 mg 100 mg QHS PRN NGT For Constipation; Start 02/25/17 at 21:00 Fentanyl 100 ml @ 2.5 mls/hr TITRATE IV Last administered on 02/25/17 10:15; Admin Dose 3 MLS/HR; Start 02/25/17 at 10:00 Midazolam HCl 50 ml @ 1 mls/hr TITRATE IV Last administered on 02/25/17 18:11 ; Admin Dose 3 MLS/HR; Start 02/25/17 at 10:00 Piperacillin Sod/ Tazobactam Sod (Zosyn 3.375gm/ 100 ml (Pmx)) 100 ml @ 200 mls /hr Q8 IVPB Last administered on 02/26/17 05:32; Admin Dose 200 MLS/HR; Start 02/25/17 at 12:00 Keith Gandhi DO February 26, 2017 12:26
[2017-02-26] MEDS ORDERED: VANCOMYCIN IV PER PHARMACY XX SCH (12:30)
--- NOTE | 2017-02-26 12:41 | PN ---
Date/Time of Note Date/Time of Note DATE: 02/26/17 TIME: 12:38 Assessment/Plan VTE Prophylaxis VTE Prophylaxis Intervention: heparin Lines/Catheters IV [facility]ter [facility]from [facility] PICC Line Central line still needed: Yes Urinary Cath still in place: Yes Reason Cath still needed: urinary retention Assessment/Plan Chief Complaint/Hosp Course Assessment/Plan: 46M with: 1. Perforated sigmoid colon 2/2 Severe Crohn's colitis * S/p Urgent Open Cronin's procedure with end colostomy, liver biopsy and abdominal lavage 02/01/17P * S/p post operative paracolic abscess drained via CT 02/14/[address] * S/p Exploration of abdomen through recent laparotomy site with closure of fascia done 02/15/17 for Fascia dehiscence - Continue Wound care and wound Vac 2. Recurrent Resp failure: Extubated then reintubated 02/13, extubated, then reintubated 02/25/17. S/p bronch. -CBT, and mucomist, abx, f/u pulm rec's 3. Exacerbation of Crohn's disease with acute colitis and diarrhea Cultures eralier were growing ecoli / proteus / enterococcus 4. Multifocal PNA + Mook Pleural effusions - Effusions likely hydrostatic from hypoalbuminemia - monitor, ID managing abx and antifungal 5. Severe Sepsis with lactic acidosis 2/2 severe colitis / PNA - now with fevers again, oneal cx, back on abx. 6. S/p Systemic shock (hypovolemic +septic) - again, see # 5, abx. 7. TPN therapy for low prealbumin + tube feeds - Gentle diuresis with daily albumin 8. Hx of heavy alcohol and tobacco use just until admission - monitor 9. Probable underlying COPD and Cirrhosis based on hx which explains hypoalbuminemia and anasarca - monitor 10. Severe recurrent anemia likely 2/2 occult blood loss from multiple sources : PRN transfusions 11. Hypomagnesemia - replete as needed * Low dose heparin for prophylaxis CRITICAL CARE TIME: 40 mins Problems: Subjective 24 Hr Interval Summary Free Text/Dictation Pt still with fevers, awaiting thoracentesis, still intubated. Exam/Review of Systems Vital Signs Vitals Vital Signs Date Time Temp Pulse Resp B/P Pulse Ox O2 Delivery O2 Flow Rate FiO2 02/26/17 10:30 116 21 97/63 94 02/26/17 10:00 Mechanical Ventilator 02/26/17 08:00 102.5 02/26/17 08:00 35 02/24/17 13:00 15.0 Intake and Output 02/25/17 02/25/17 02/26/17 15:00 23:00 07:00 Intake Total 243 ml 636.0 ml 747.5 ml Output Total 600 ml 280 ml 260 ml Balance -357 ml 356.0 ml 487.5 ml Exam Constitutional: intubated, NAD Head: normocephalic Eyes: PERRL, icteric ENMT: other (NGT) Respiratory: some diminished breath sounds, No wheezing Cardiovascular: regular rate and rhythm, No murmurs/extra sounds Gastrointestinal: other (midline surgical dressing with wound vac / L sided colostomy and drain / colostomy has dark green fluidy stool), soft otherwise Genitourinary - Male: other (significant scrotal and penile edema) Musculoskeletal: swelling (generalized severe anasarca) Extremities: pitting pedal edema Neurological: intubated Results Result Diagram: 02/26/17 0445 02/26/17 0445 Results 24 hrs Laboratory Tests Test 02/25/17 13:11 02/25/17 22:15 02/26/17 04:45 02/26/17 07:00 Urine Color YELLOW Urine Clarity CLEAR Urine pH 5.5 Urine Specific [place] 1.025 Urine Ketones NEGATIVE Urine Nitrite NEGATIVE Urine Bilirubin 1+ H Urine Ictotest NEGATIVE Urine Urobilinogen 0.2 E.U./dL Urine Leukocyte Esterase NEGATIVE Urine Microscopic RBC 5-10 Urine Microscopic WBC 10-25 Urine Uric Acid Crystals MODERATE Urine Bacteria MANY Urine Hemoglobin NEGATIVE Urine Glucose NEGATIVE Urine Total Protein TRACE Potassium Level 3.3 L 3.8 Magnesium Level 2.1 2.1 White Blood Count 19.5 H Red Blood Count 2.59 L Hemoglobin 7.4 L Hematocrit 23.9 L Mean Corpuscular Volume 92.3 Mean Corpuscular Hemoglobin 28.6 L Mean Corpuscular Hemoglobin Concent 31.0 L Red Cell Distribution Width 14.8 H Platelet Count 474 H Mean Platelet Volume 10.8 H Neutrophils % 86.4 H Lymphocytes % 4.4 L Monocytes % 5.1 Eosinophils % 2.8 Basophils % 0.2 Nucleated Red Blood Cells % 0.0 Neutrophils # 16.9 H Lymphocytes # 0.9 Monocytes # 1.0 H Eosinophils # 0.5 Basophils # 0.0 Nucleated Red Blood Cells # 0.0 Sodium Level 140 Chloride Level 97 Carbon Dioxide Level 33 H Anion Gap 14 Blood Urea Nitrogen 18 Creatinine 0.86 Glucose Level 106 Calcium Level 7.6 L Phosphorus Level 4.7 Blood Gas Specimen Source Blood arterial Arterial Blood Date Drawn 02/26/2017 7:50:22 AM Arterial Blood pH (Temp corrected) 7.476 H Arterial Blood pCO2 (Temp correct) 39.8 Arterial Blood pO2 (Temp corrected) 69.3 L Arterial Blood HCO3 28.7 H Arterial Blood Base Excess 4.8 H Arterial Blood Oxygen Saturation 93.2 L Raffy Test ACCEPTAB Arterial Blood Gas Puncture Site Left Radial Arterial Blood Carboxyhemoglobin 0.5 Arterial Blood Methemoglobin 0.2 Blood Gas A-a O2 Differential 97.8 H Oxyhemoglobin Percent 92.5 L Total Hemoglobin 10.0 L Blood Gas Temperature 37.0 Blood Gas Respiration Rate 16.0 Blood Gas Actual Respiration Rate 19 Blood Gas Modality VENT - AC FiO2 30.0 Blood Gas Tidal Volume 550.0 Blood Gas Low PEEP Setting 5.0 Blood Gas Notified Whom JLD Blood Gas Notified Time 02/26/2017 9:20:36 AM Test 02/26/17 09:30 Lactic Acid Level 2.0 Medications Medications Current Medications Pantoprazole (Protonix Iv) 40 mg DAILY@06 IV Last administered on 02/26/17 05: 32; Admin Dose 40 MG; Start 02/01/17 at 06:00 Acetaminophen/ Hydrocodone Bitart ([place] (5/325)) 1 tab Q4H PRN PO PAIN LEVEL 4 -7 Last administered on 02/09/17 18:48; Admin Dose 1 TAB; Start 02/01/17 at 20: 30 Acetaminophen/ Hydrocodone Bitart ([place] (5/325)) 2 tab Q4H PRN PO PAIN LEVEL 7 -10; Start 02/01/17 at 20:30 Bisacodyl (Dulcolax Supp) 10 mg BID PRN [place] CONSTIPATION; Start 02/01/17 at 20: 30 Sodium Biphosphate/ Sodium Phosphate (Fleet Enema) 133 ml BID PRN [place] CONSTIPATION; Start 02/01/17 at 20:30 Acetaminophen (Tylenol Liquid) 650 mg Q4H PRN GTB PAIN AND OR ELEVATED TEMP Last administered on 02/26/17 08:37; Admin Dose 650 MG; Start 02/05/17 at 18:30 Salmeterol Xinafoate/ Fluticasone (Advair 250/50 Diskus) 1 inh BID INH Last administered on 02/12/17 09:03; Admin Dose 1 INH; Start 02/07/17 at 11:00; Status Future Hold IV Flush (NS 10 ml) 10 ml PRN PRN IV IV PROTOCOL; Start 02/07/17 at 14:30 Diphenhydramine HCl 25 mg 25 mg Q6H PRN IV itching ; Start 02/07/17 at 20:00 Ondansetron HCl/ Sodium Chloride (Zofran Inj/NS) 54 ml @ 216 mls/hr Q6H PRN IV NAUSEA AND/OR VOMITING; Start 02/09/17 at 11:30 Prednisone (Prednisone) 40 mg DAILY PO Last administered on 02/12/17 09:03; Admin Dose 40 MG; Start 02/11/17 at 09:00; Status Future Hold Lorazepam (Ativan) 1 mg Q2 PRN IV AGITATION/ANXIETY Last administered on 20:10; Admin Dose 1 MG; Start 02/10/17 at 17:00 Lorazepam (Ativan) 1 mg Q1HWA PRN IM AGITATION/ANXIETY; Start 02/10/17 at 19:00 Trimethobenzamide HCl 200 mg 200 mg Q6H PRN IM NAUSEA AND/OR VOMITING; Start at 19:30 Norepinephrine/ Dextrose (Levophed/D5W) 500 ml @ 1.87 mls/hr TITRATE IV ; Start 02/13/17 at 12:00; Status Future hold Morphine Sulfate (morphine) 2 mg Q4H PRN IV pain Last administered on 12:41; Admin Dose 2 MG; Start 02/20/17 at 18:30 Docusate Sodium 100 mg 100 mg QHS PRN NGT For Constipation; Start 02/25/17 at 21:00 Fentanyl 100 ml @ 2.5 mls/hr TITRATE IV Last administered on 02/25/17 10:15; Admin Dose 3 MLS/HR; Start 02/25/17 at 10:00 Midazolam HCl 50 ml @ 1 mls/hr TITRATE IV Last administered on 02/25/17 18:11 ; Admin Dose 3 MLS/HR; Start 02/25/17 at 10:00 Piperacillin Sod/ Tazobactam Sod (Zosyn 3.375gm/ 100 ml (Pmx)) 100 ml @ 200 mls /hr Q8 IVPB Last administered on 02/26/17 05:32; Admin Dose 200 MLS/HR; Start 02/25/17 at 12:00 SUSAN SANCHEZ February 26, 2017 12:41
[2017-02-26] MEDS: FENTAnyl (DRIP) 1000 mcg/100mL 100 ML IV SCH (13:45)
--- NOTE | 2017-02-26 13:58 | PN ---
Date/Time of Note Date/Time of Note DATE: 02/26/17 TIME: 13:49 Assessment/Plan Lines/Catheters IV Catheter Type (from Nrs): PICC Line Zeng in Place (from Nrs): Yes Assessment/Plan Assessment/Plan [facility] Progress Note Date of Service: 02/26/17 Today's Impression & Plan: Overall stable. Remains intubated with ongoing pulmonary issues. Much improved L lung farias on today's CXR. Etiology of failure to thrive is unclear. Abd remains benign and seems to be tolerating gastric feeds, although ostomy outputs are still minimal. No obvious abd distension, pain, wound issues or other obvious clarifying signs or symptoms. Stool guaiac negative x 2 (most recent one on the ), yet chronically loosing blood requiring infrequent blood transfusions. Overall unclear clinical picture. Discussed with Dr. Britt and left a message for patient's father to update him over the phone. No indication for acute surgical intervention. Remains high risk for complication given perforated colon in the setting of uncontrolled Crohn's. Recovery will take extra time with likely need for rehab. With above assessment, I've recommended the following for today: 1. Cont current cares in ICU 2. F/u on cultures 3. Cont TPN 4. Pulmonary toilet and recheck of status for the left lung; agree with plans to interrogate the left chest cavity later today and possible extubation tomorrow am 5. Cont gentle diuresis to BMP < 200 6. Social work and case management to please start working on possible rehab vs. home health nurse set up 7. Increase activity 8. Increase ICS 9. Wean off broad spec antimicrobials 10. Labs in am 11. Cont current wound care with wound vac 12. Follow up on neurohormonal lab checks (TSH, PTH, cortisol levels, etc) Thank you again for your great care of this very pleasant patient and wonderful family. If there are any questions, please feel free to call me at [phone]. TOTAL VISIT TIME: 20 minutes of which more than half was spent in [id number] discussion with the patient, possibly including family, as well as coordination of care between multiple physicians and providers. Disclaimer: Inadvertent spelling or grammatical errors are likely due to EHR/ dictation software use and do not reflect on the overall quality of patient care. Updated Clinical Summary: A very pleasant 46-year-old gentleman with history of Crohn's disease as well as prior surgery for anal fistula approximately 5 years ago, and a torn meniscus repair on the left knee, presenting with abdominal pain associated with a few weeks' duration of diarrhea. S/p an otherwise uncomplicated diagnostic laparoscopy was converted first to hand assist and then to open exploration when perforated sigmoid colon was found and it was resected with a Deena type procedure and end colostomy as well as core needle liver biopsy, segment 5, due to presence of fatty liver disease, lysis of adhesions, and abdominal lavage on 02/01/17. Failed to wean off the vent through 02/06/17. PE was evaluated 02/07/[address] angio and no evidence found. CT abd/pelvis also did not show actionable findings (no abscess; bowel thickening somewhat expected). Extubated 02/07/17. CORE INSPECTOR called early am 02/13/17 with a few minutes coding, requiring intubation and transfer to ICU. Fortunately, mentally appears to be intact and not on pressors. Lactic acid and CO2 normal with benign appearing abd and viable ostomy. Complicated by fascia dehiscence. S/p exploration of abdomen through recent laparotomy, primary closure of fascia and abdominal lavage on 02/15/17. Reintubated 02/25/17 for bronchoscopy to remove mucus plug. COMORBIDITIES: 1. Crohn disease with perforation of sigmoid colon and sepsis. S/p an otherwise uncomplicated diagnostic laparoscopy was converted first to hand assist and then to open exploration when perforated sigmoid colon was found and it was resected with a Deena type procedure and end colostomy as well as core needle liver biopsy, segment 5, due to presence of fatty liver disease, lysis of adhesions, and abdominal lavage on 02/01/17. Complicated by respiratory failure, return trip to ICU and fascia dehiscence. S/p exploration of abdomen through recent laparotomy, primary closure of fascia and abdominal lavage on 02/15. 2. Repair of a fistula approximately 5 years ago. 3. Torn meniscus on the left knee status post repair. Subjective: No major events overnight; no major complaints; no major SOB and no CP; + BM; remained intubated Objective: Vitals: See below Exam: GENERAL: On exam, the patient was laying in bed and appeared to be comfortable and in no acute distress. On the vent with orogastric tube feeding at 60 cc per hr. ABDOMEN: Soft, nontender and nondistended. Incision wound vac dressings are clean without any evidence of obvious erythema, edema, discharge, or hernia. Wound vac with no sig drainage. Surgery drain site clean. Ostomy pink and viable ; some air and stool in the bag. There are no peritoneal signs or guarding. SKIN: Skin appears to be pink and feels warm to touch. NEUROLOGIC: Patient is awake, alert and follows commands appropriately. Exam/Review of Systems Vital Signs Vitals Vital Signs Date Time Temp Pulse Resp B/P Pulse Ox O2 Delivery O2 Flow Rate FiO2 02/26/17 12:48 107 02/26/17 10:30 21 97/63 94 02/26/17 10:00 Mechanical Ventilator 02/26/17 08:00 102.5 02/26/17 08:00 35 02/24/17 13:00 15.0 Intake and Output 02/25/17 02/25/17 02/26/17 15:00 23:00 07:00 Intake Total 243 ml 636.0 ml 747.5 ml Output Total 600 ml 280 ml 260 ml Balance -357 ml 356.0 ml 487.5 ml Results Result Diagram: 02/26/17 0445 02/26/17 0445 TI HILTON M.D. February 26, 2017 13:58
[2017-02-26] MEDS ORDERED: MEROPENEM 1 GM/100 ML (PMX) 100 ML IVPB SCH (14:00)
--- NOTE | 2017-02-26 14:04 | CONS ---
Date/Time of Note Date/Time of Note DATE: 02/26/17 TIME: 14:01 Consult Date/Type/Reason Admit Date/Time Feb 01, 2017 at 03:10 Type of Consultation: Pulmonary ICU Ordering Provider: VINCE PADGETT Subjective Patient reintubated yesterday for hypoxemic respiratory failure and mucous plugging Status post bronchoscopy with clearance of extensive secretions in the left mainstem bronchus with improved aeration radiographically Remains intubated currently with profound neuromuscular weakness Objective Vital Signs Date Time Temp Pulse Resp B/P Pulse Ox O2 Delivery O2 Flow Rate FiO2 02/26/17 12:48 107 02/26/17 10:30 21 97/63 94 02/26/17 10:00 Mechanical Ventilator 02/26/17 08:00 102.5 02/26/17 08:00 35 02/24/17 13:00 15.0 Intake and Output 02/25/17 02/25/17 02/26/17 15:00 23:00 07:00 Intake Total 243 ml 636.0 ml 747.5 ml Output Total 600 ml 280 ml 260 ml Balance -357 ml 356.0 ml 487.5 ml Exam PHYSICAL EXAMINATION GENERAL chronically ill-appearing gentleman on mechanical ventilation VITAL SIGNS: see below. HEENT: Pupils equal, round, and reactive to light. CARDIAC: S1, S2, CHEST: Diminished air entry bilaterally. ABDOMEN: Mildly distended. Distal bowel sounds no guarding or rebound EXTREMITIES: No cyanosis, clubbing edema +2 NEUROLOGIC: Generalized weakness Results/Medications Result Diagram: 02/26/17 0445 02/26/17 0445 Results 24 hrs Laboratory Tests Test 02/25/17 22:15 02/26/17 04:45 02/26/17 07:00 02/26/17 09:30 Potassium Level 3.3 L 3.8 Magnesium Level 2.1 2.1 White Blood Count 19.5 H Red Blood Count 2.59 L Hemoglobin 7.4 L Hematocrit 23.9 L Mean Corpuscular Volume 92.3 Mean Corpuscular Hemoglobin 28.6 L Mean Corpuscular Hemoglobin Concent 31.0 L Red Cell Distribution Width 14.8 H Platelet Count 474 H Mean Platelet Volume 10.8 H Neutrophils % 86.4 H Lymphocytes % 4.4 L Monocytes % 5.1 Eosinophils % 2.8 Basophils % 0.2 Nucleated Red Blood Cells % 0.0 Neutrophils # 16.9 H Lymphocytes # 0.9 Monocytes # 1.0 H Eosinophils # 0.5 Basophils # 0.0 Nucleated Red Blood Cells # 0.0 Sodium Level 140 Chloride Level 97 Carbon Dioxide Level 33 H Anion Gap 14 Blood Urea Nitrogen 18 Creatinine 0.86 Glucose Level 106 Calcium Level 7.6 L Phosphorus Level 4.7 Blood Gas Specimen Source Blood arterial Arterial Blood Date Drawn 02/26/2017 7:50:22 AM Arterial Blood pH (Temp corrected) 7.476 H Arterial Blood pCO2 (Temp correct) 39.8 Arterial Blood pO2 (Temp corrected) 69.3 L Arterial Blood HCO3 28.7 H Arterial Blood Base Excess 4.8 H Arterial Blood Oxygen Saturation 93.2 L Raffy Test ACCEPTAB Arterial Blood Gas Puncture Site Left Radial Arterial Blood Carboxyhemoglobin 0.5 Arterial Blood Methemoglobin 0.2 Blood Gas A-a O2 Differential 97.8 H Oxyhemoglobin Percent 92.5 L Total Hemoglobin 10.0 L Blood Gas Temperature 37.0 Blood Gas Respiration Rate 16.0 Blood Gas Actual Respiration Rate 19 Blood Gas Modality VENT - AC FiO2 30.0 Blood Gas Tidal Volume 550.0 Blood Gas Low PEEP Setting 5.0 Blood Gas Notified Whom JLD Blood Gas Notified Time 02/26/2017 9:20:36 AM Lactic Acid Level 2.0 Test 02/26/17 12:35 Lactic Acid Level 2.2 Medications Current Medications Pantoprazole (Protonix Iv) 40 mg DAILY@06 IV Last administered on 02/26/17 05: 32; Admin Dose 40 MG; Start 02/01/17 at 06:00 Acetaminophen/ Hydrocodone Bitart ([place] (5/325)) 1 tab Q4H PRN PO PAIN LEVEL 4 -7 Last administered on 02/09/17 18:48; Admin Dose 1 TAB; Start 02/01/17 at 20: 30 Acetaminophen/ Hydrocodone Bitart ([place] (5/325)) 2 tab Q4H PRN PO PAIN LEVEL 7 -10; Start 02/01/17 at 20:30 Bisacodyl (Dulcolax Supp) 10 mg BID PRN [place] CONSTIPATION; Start 02/01/17 at 20: 30 Sodium Biphosphate/ Sodium Phosphate (Fleet Enema) 133 ml BID PRN [place] CONSTIPATION; Start 02/01/17 at 20:30 Acetaminophen (Tylenol Liquid) 650 mg Q4H PRN GTB PAIN AND OR ELEVATED TEMP Last administered on 02/26/17 08:37; Admin Dose 650 MG; Start 02/05/17 at 18:30 Salmeterol Xinafoate/ Fluticasone (Advair 250/50 Diskus) 1 inh BID INH Last administered on 02/12/17 09:03; Admin Dose 1 INH; Start 02/07/17 at 11:00; Status Future Hold IV Flush (NS 10 ml) 10 ml PRN PRN IV IV PROTOCOL; Start 02/07/17 at 14:30 Diphenhydramine HCl 25 mg 25 mg Q6H PRN IV itching ; Start 02/07/17 at 20:00 Ondansetron HCl/ Sodium Chloride (Zofran Inj/NS) 54 ml @ 216 mls/hr Q6H PRN IV NAUSEA AND/OR VOMITING; Start 02/09/17 at 11:30 Prednisone (Prednisone) 40 mg DAILY PO Last administered on 02/12/17 09:03; Admin Dose 40 MG; Start 02/11/17 at 09:00; Status Future Hold Lorazepam (Ativan) 1 mg Q2 PRN IV AGITATION/ANXIETY Last administered on 20:10; Admin Dose 1 MG; Start 02/10/17 at 17:00 Lorazepam (Ativan) 1 mg Q1HWA PRN IM AGITATION/ANXIETY; Start 02/10/17 at 19:00 Trimethobenzamide HCl 200 mg 200 mg Q6H PRN IM NAUSEA AND/OR VOMITING; Start at 19:30 Norepinephrine/ Dextrose (Levophed/D5W) 500 ml @ 1.87 mls/hr TITRATE IV ; Start 02/13/17 at 12:00; Status Future hold Morphine Sulfate (morphine) 2 mg Q4H PRN IV pain Last administered on 12:41; Admin Dose 2 MG; Start 02/20/17 at 18:30 Docusate Sodium 100 mg 100 mg QHS PRN NGT For Constipation; Start 02/25/17 at 21:00 Fentanyl 100 ml @ 2.5 mls/hr TITRATE IV Last administered on 02/26/17 13:45; Admin Dose 2.5 MLS/HR; Start 02/25/17 at 10:00 Midazolam HCl 50 ml @ 1 mls/hr TITRATE IV Last administered on 02/25/17t 18:11 ; Admin Dose 3 MLS/HR; Start 02/25/17 at 10:00 Vancomycin HCl 1.75 gm/Sodium Chloride 500 ml @ 125 mls/hr ONCE IVPB ; Start at 15:00; Stop 02/26/17 at 17:00 Meropenem 100 ml @ 200 mls/hr Q8 IVPB ; Start 02/26/17 at 14:00 Fluconazole 100 ml @ 100 mls/hr Q24H IVPB ; Start 02/26/17 at 17:00 Vancomycin HCl (Vancocin) 250 ml @ 125 mls/hr Q12H IVPB ; Start 02/27/17 at 03: 00 Assessment/Plan Chief Complaint/Hosp Course Assessment 1. Crohn's disease with perforation of sigmoid colon and sepsis status post arthroscopic sigmoid colectomy and end colostomy with lysis of adhesions 2. Resolved metabolic acidosis with septic shock 3. Improved electrolyte imbalance 4. Hypoxemic respiratory failure mucus plugging left mainstem bronchus status post intubation and bronchoscopy now with evidence of increasing left pleural effusion again 5. Thrombocytopenia resolved, likely underlying pneumonia 6. Anemia worsening hemoglobin no active GI bleeding stool guaiac negative questionable retroperitoneal bleed 7. Encephalopathy likely toxic metabolic 8. Likely critical illness neuropathy Plan 1. Continue mechanical ventilation 2. Thoracentesis left pleural effusion with pleural fluid studies 3. Continue surgical wound care discussed with , CT abdomen if hemoglobin continues to drop 4. Continue broad-spectrum antibiotic coverage 5. Patient still has significant aspiration risk discussed with speech therapy 6. DVT GI prophylaxis Disposition Continue ICU care May require tracheostomy if patient is unable to ventilate adequately Problems: RAMON DOUGLAS MD, [facility] February 26, 2017 14:04
[2017-02-26] MEDS: MEROPENEM 1 GM/100 ML (PMX) 100 ML IVPB SCH ×2 (14:16→22:05)
--- NOTE | 2017-02-26 14:30 | PN ---
DATE: 02/26/2017 INFECTIOUS DISEASE PROGRESS NOTE SUBJECTIVE: No acute changes. The patient remains intubated, continuously spiking fevers. T-max t his morning 102.5. He wakes up, comfortable on the vent. He is not on pressors. WBC 19.5, H and H 7.4 and 23.9, platelets 474, neutrophils 86.4. BUN 18, creatinine 0.86. MICROBIOLOGY: Blood cultures from 02/25/2017 remain negative. Urine culture negative. DIAGNOSTICS: Chest x-ray this morning revealed cardiomegaly with infiltrates. INDWELLINGS: PICC line, endotracheal tube, NG tube, Zeng catheter. ANTIMICROBIALS: The patient was restarted on: 1. Zosyn. 2. Fluconazole. 3. Vancomycin. 4. Meropenem. PHYSICAL EXAMINATION: GENERAL: This is a well-developed, middle-aged man, who is comfortable on the vent. HEENT: Head atraumatic, normocephalic. Sclerae are anicteric. Buccal mucosa dry. NECK: Supple, trachea midline. CHEST: Chest rise is symmetrical. Breath sounds diminished to the bases. HEART: S1, S2. ABDOMEN: Soft. Bowel tones present. EXTREMITIES: Without cyanosis. Bilateral trace edema. ASSESSMENT: 1. Severe sepsis. 2. Healthcare-associated pneumonia. 3. Crohn's disease with sigmoid perforation, status post viscus repair on 02/01/2017, abscess drain age on 02/14/2017, and abdominal exploration with lavage on 02/15/2017. 4. Recurrent respiratory failure. 5. Cirrhosis. 6. Anemia. PLAN: The patient is hemodynamically stable; however, with persistent leukocytosis and fevers, stat us post bronchoscopy yesterday, with evidence of bilateral pneumonias per chest x-ray. He is being followed by multiple consultants. Surgery is on the case as well. We will continue him on the curr ent regimen, await for bronchoalveolar lavage cultures, await for final blood and urine cultures. Dictated By: THOMAS ELLIS FAT PURIFICATION WORKER for MICKY RAMÍREZ/YAN Conf#: [id number] DID#: [id number]
[2017-02-26] MEDS ORDERED: VANCOMYCIN 1.75 GM in NS 500 ML IVPB SCH ×2 (15:00→16:30)
[2017-02-26] MEDS ORDERED: FLUCONAZOLE 200 MG/NS (PMX) 100 ML IVPB SCH (15:30)
[2017-02-26] MEDS ORDERED: LIDOCAINE 1% (MPF) 5 ML VIAL ONE (15:43)
--- NOTE | 2017-02-26 16:01 | RADRPT ---
PROCEDURE: US guided left thoracentesis. CLINICAL INDICATION: Shortness of breath. Left pleural effusion. TECHNIQUE: Prior to the procedure, informed consent was obtained. The risks, benefits, and alternatives were e xplained to the patient or the patient's family, including but not limited to bleeding, infection, p ain, visceral or vascular damage, shock, pneumothorax, chest tube placement, air embolism, and . The patient or the patient's family understood the risks and the alternatives and wished to proce ed with the study. Informed written consent was obtained. A procedural pause was performed. The patient's name, date of , and procedure to be performed were verified. Ultrasound of the left hemithorax was performed in the axial and sagittal planes. A left pleural eff usion is noted. Utilizing ultrasound guidance, optimal location for entry to the pleural cavity was ascertained. The overlying skin was prepped and draped in the usual sterile fashion. Approximately 10 ml of 1% Xylocaine was injected locally for pain control. Using ultrasound guidance, a 5-Setswana Yueh catheter was introduced into the left pleural space without difficulty. Fluid was aspirated. COMPARISON: None. FINDINGS: Initial ultrasound demonstrates fluid in the left pleural space. Approximately 0.400 liters of sero us fluid was aspirated and sent to the laboratory. IMPRESSION: 1. Satisfactory ultrasound-guided left thoracentesis. RPTAT: QQ .Rogelio Vera MD, Date Time Electronically viewed and signed by .Rogelio Vera MD, on 02/26/2017 16:01 .R/
--- NOTE | 2017-02-26 16:11 | RADRPT ---
PROCEDURE: XR Chest. CLINICAL INDICATION: Shortness of breath. Post left thoracentesis. TECHNIQUE: Single frontal view. COMPARISON: Prior study done earlier the same day. FINDINGS: The endotracheal tube, nasogastric tube, and right arm PICC line remain in satisfactory position. P ulmonary edema and atelectasis at the lung bases is slightly improved. The heart size is normal. There are small bilateral pleural effusions with the left pleural effusion now smaller than seen pre viously. There is no pneumothorax. IMPRESSION: 1. No pneumothorax following left thoracentesis. RPTAT: QQ .Rogelio Vera MD, MD Date Time Electronically viewed and signed by .Rogelio Vera MD, on 02/26/2017 16:10 .R/
[2017-02-26 16:45] LABS: FLUID APPEARANCE BLOODY
[2017-02-26 16:46] LABS: FLUID WBC'S 5480 /cmm
[2017-02-26 16:48] LABS: FLUID EOSINOPHIL 0 %
[2017-02-26 16:49] LABS: FLUID TYPE PLEURAL
[2017-02-26 16:58] LABS: FLUID TOTAL PROTEIN 2.6 g/dl; FLUID TYPE THORACENTESIS FLUID
[2017-02-26 17:01] LABS: FLUID GLUCOSE 90 mg/dl; FLUID TYPE THORACENTESIS FLUID
[2017-02-26 17:04] LABS: THYROID STIMULATING HORMONE 5.04 MIU/L (0.465-4.680)
[2017-02-26] MEDS: FLUCONAZOLE 200 MG/NS (PMX) 100 ML IVPB SCH (20:01)
[2017-02-27] VITALS (43 sets, daily range): BP systolic 100–134; BP diastolic 58–89; PULSE 83–116; RESP 16–31
[2017-02-27] MEDS: ACETAMINOPHEN 650MG/20.3ML CUP GTB PRN ×2 (01:54→12:37)
[2017-02-27] MEDS: ACETYLCYSTEINE 20% 4 ML VIAL NEB SCH ×4 (02:01→19:59)
[2017-02-27] MEDS: IPRATROPIUM (HFA) 12.9 GM INHALER INH SCH ×4 (02:01→19:59)
[2017-02-27] MEDS: ALBUTEROL 18 GM INHALER INH SCH ×4 (02:01→19:59)
[2017-02-27] MEDS: VANCOMYCIN 1 GM in NS 250 ML IVPB SCH ×2 (03:50→15:24)
[2017-02-27 04:26] LABS: ADD SCAN DIFF NO
[2017-02-27 04:31] LABS: ABNORMAL IP MESSAGE 1; MEAN CORPUSCULAR HEMOGLOBIN 28.3 pg (29.0-33.0); MEAN CORPUSCULAR HGB CONC 30.5 g/dl (32.0-37.0); MEAN CORPUSCULAR VOLUME 92.8 fl (82.0-101.0); PLATELET COUNT 451 10^3/UL (140-415); RED BLOOD COUNT 2.37 10^6/ul (4.70-6.10); RED CELL DISTRIBUTION WIDTH 14.9 % (11.5-14.5); WHITE BLOOD COUNT 16.4 10^3/ul (4.8-10.8)
[2017-02-27 04:57] LABS: POTASSIUM 3.8 mmol/L (3.5-5.1)
[2017-02-27 05:00] LABS: CALCIUM 7.4 mg/dl (8.4-10.2); CREATININE 0.74 mg/dl (0.61-1.24); PHOSPHORUS 4.4 mg/dl (2.5-4.9)
[2017-02-27 05:01] LABS: MAGNESIUM 1.6 mg/dl (1.7-2.5)
[2017-02-27] MEDS: POTASSIUM CHLORIDE 50 ML IVPB PRN (05:32)
[2017-02-27] MEDS ORDERED: SOD CHLORIDE 0.9% 250 ML IV* ONE (05:33)
[2017-02-27] MEDS: PANTOPRAZOLE 40 MG INJ IV SCH (05:40)
[2017-02-27] MEDS ORDERED: MAGNESIUM SULFATE 1 GM/D5W 100 ML IVPB ONE (06:00)
[2017-02-27] MEDS ORDERED: VANCOMYCIN 1 GM in NS 250 ML IVPB SCH (06:00)
[2017-02-27 08:12] LABS: EOSINOPHILS # 0.2 10^3/ul (0.0-0.5); LYMPHOCYTES # 0.5 10^3/ul (0.8-2.9); MONOCYTE # 0.8 10^3/ul (0.3-0.9); NEUTROPHIL # 14.9 10^3/ul (1.6-7.5)
[2017-02-27] MEDS: MEROPENEM 1 GM/100 ML (PMX) 100 ML IVPB SCH ×3 (08:47→21:10)
[2017-02-27 09:08] LABS: AADO2 Arterial 148.9 mmHg (7.0-24.0); Allen Test ACCEPTAB; Arterial Base Excess 8.3 mmol/L (-3.0-3); Arterial COHb 0.3 % (0.0-3.0); Arterial Fraction of Oxyhgb 95.4 % (93.0-99.0); Arterial HCO3 32.5 mmol/L (22.0-26.0); Arterial MetHb 0.3 % (0.0-1.5); Arterial Total Hemglobin 8.3 g/dl (12.0-18.0); MODE VENT - AC
--- NOTE | 2017-02-27 09:42 | CONS ---
Date/Time of Note Date/Time of Note DATE: 02/27/17 TIME: 09:39 Assessment/Plan Assessment/Plan Additional Assessment/Plan Perforated sigmoid colon * Laparoscopic exploration,open sigmoid colectomy with Deena end colostomy with liver biopsy segment V h/o Crohn's disease Respiratory failure secondary Thrombocytopenia Liver Cirrhosis Anemia hemoglobin Atelectasis,compressive managed by pulmonary Plan: Continue present management Will reevaluate for Crohn's disease once recovered from surgery Further recommendations depend on clinical course Patient seen in collaboration with Dr. Jackson Consultation Date/Type/Reason Admit Date/Time Feb 01, 2017 at 03:10 Initial Consult Date 02/02/17 Type of Consultation: GI Referring Provider: VINCE PADGETT 24 HR Interval Summary Free Text/Dictation 0.40 L of fluid removed from pleural space Intubated but alert and following commands Tube feed at 60 with minimal residual Colostomy with soft brown stool Exam/Review of Systems Vital Signs Vitals Vital Signs Date Time Temp Pulse Resp B/P Pulse Ox O2 Delivery O2 Flow Rate FiO2 02/27/17 06:30 98 17 109/75 100 02/27/17 06:00 Mechanical Ventilator 02/27/17 05:39 40 02/27/17 04:00 99.8 02/24/17 13:00 15.0 Intake and Output 02/26/17 02/26/17 02/27/17 15:00 23:00 07:00 Intake Total 677.5 ml 1130.0 ml 797.5 ml Output Total 350 ml 370 ml 931 ml Balance 327.5 ml 760.0 ml -133.5 ml Exam Constitutional: frail Neck: non-tender, supple Respiratory: crackles/rales, diminished breath sounds Cardiovascular: nl pulses, regular rate and rhythm Gastrointestinal: non-tender, other (colostomy ), soft Musculoskeletal: nl extremities to inspection Lymph: nl lymph nodes Results Result Diagram: 02/27/17 0400 02/27/17 0400 Results 24 hrs Laboratory Tests Test 02/26/17 12:35 02/26/17 15:30 02/26/17 16:00 02/27/17 04:00 Lactic Acid Level 2.2 2.4 H Body Fluid Type THORACENTESIS FLUID Body Fluid Volume 430.0 Body Fluid Color RED Body Fluid Appearance BLOODY Body Fluid WBC 5480 Body Fluid RBC Body Fluid Neutrophils % 94.0 Body Fluid Lymphocytes (%) 3.0 Body Fluid Monocytes % 3.0 Body Fluid Eosinophils % 0 Body Fluid Glucose 90 Body Fluid Total Protein 2.6 Body Fluid Lactate Dehydrogenase Thyroid Stimulating Hormone (TSH) 5.040 H Random Cortisol 21.4 White Blood Count 16.4 H Red Blood Count 2.37 L Hemoglobin 6.7 *L Hematocrit 22.0 L Mean Corpuscular Volume 92.8 Mean Corpuscular Hemoglobin 28.3 L Mean Corpuscular Hemoglobin Concent 30.5 L Red Cell Distribution Width 14.9 H Platelet Count 451 H Mean Platelet Volume 11.0 H Neutrophils % 91.0 H Lymphocytes % 3.0 L Monocytes % 5.0 Eosinophils % 1.0 Basophils % Nucleated Red Blood Cells % Neutrophils # 14.9 H Lymphocytes # 0.5 L Monocytes # 0.8 Eosinophils # 0.2 Basophils # Nucleated Red Blood Cells # Differential Comment MANUAL DIFF Sodium Level 140 Potassium Level 3.8 Chloride Level 99 Carbon Dioxide Level 32 H Anion Gap 13 Blood Urea Nitrogen 22 H Creatinine 0.74 Glucose Level 112 Calcium Level 7.4 L Phosphorus Level 4.4 Magnesium Level 1.6 L Test 02/27/17 07:00 Blood Gas Specimen Source Blood arterial Arterial Blood Date Drawn 02/27/2017 8:00:28 AM Arterial Blood pH (Temp corrected) 7.484 H Arterial Blood pCO2 (Temp correct) 44.3 Arterial Blood pO2 (Temp corrected) 85.4 Arterial Blood HCO3 32.5 H Arterial Blood Base Excess 8.3 H Arterial Blood Oxygen Saturation 96.0 Raffy Test ACCEPTAB Arterial Blood Gas Puncture Site Right Radial Arterial Blood Carboxyhemoglobin 0.3 Arterial Blood Methemoglobin 0.3 Blood Gas A-a O2 Differential 148.9 H Oxyhemoglobin Percent 95.4 Total Hemoglobin 8.3 L Blood Gas Temperature 37.0 Blood Gas Respiration Rate 16.0 Blood Gas Actual Respiration Rate 21 Blood Gas Modality VENT - AC FiO2 40.0 Blood Gas Tidal Volume 550.0 Blood Gas High PEEP Setting 5.0 Blood Gas Notified Whom TM Blood Gas Notified Time 02/27/2017 9:08:45 AM Medications Medications Current Medications Pantoprazole (Protonix Iv) 40 mg DAILY@06 IV Last administered on 02/27/17t 05: 40; Admin Dose 40 MG; Start 02/01/17 at 06:00 Acetaminophen/ Hydrocodone Bitart ([place] (5/325)) 1 tab Q4H PRN PO PAIN LEVEL 4 -7 Last administered on 02/09/17 18:48; Admin Dose 1 TAB; Start 02/01/17 at 20: 30 Acetaminophen/ Hydrocodone Bitart ([place] (5/325)) 2 tab Q4H PRN PO PAIN LEVEL 7 -10; Start 02/01/17 at 20:30 Bisacodyl (Dulcolax Supp) 10 mg BID PRN [place] CONSTIPATION; Start 02/01/17 at 20: 30 Sodium Biphosphate/ Sodium Phosphate (Fleet Enema) 133 ml BID PRN [place] CONSTIPATION; Start 02/01/17 at 20:30 Acetaminophen (Tylenol Liquid) 650 mg Q4H PRN GTB PAIN AND OR ELEVATED TEMP Last administered on 02/27/17 01:54; Admin Dose 650 MG; Start 02/05/17 at 18:30 Salmeterol Xinafoate/ Fluticasone (Advair 250/50 Diskus) 1 inh BID INH Last administered on 02/12/17 09:03; Admin Dose 1 INH; Start 02/07/17 at 11:00; Status Future Hold IV Flush (NS 10 ml) 10 ml PRN PRN IV IV PROTOCOL; Start 02/07/17 at 14:30 Diphenhydramine HCl 25 mg 25 mg Q6H PRN IV itching ; Start 02/07/17 at 20:00 Ondansetron HCl/ Sodium Chloride (Zofran Inj/NS) 54 ml @ 216 mls/hr Q6H PRN IV NAUSEA AND/OR VOMITING; Start 02/09/17 at 11:30 Prednisone (Prednisone) 40 mg DAILY PO Last administered on 02/12/17 09:03; Admin Dose 40 MG; Start 02/11/17 at 09:00; Status Future Hold Lorazepam (Ativan) 1 mg Q2 PRN IV AGITATION/ANXIETY Last administered on 20:10; Admin Dose 1 MG; Start 02/10/17 at 17:00 Lorazepam (Ativan) 1 mg Q1HWA PRN IM AGITATION/ANXIETY; Start 02/10/17 at 19:00 Trimethobenzamide HCl 200 mg 200 mg Q6H PRN IM NAUSEA AND/OR VOMITING; Start at 19:30 Norepinephrine/ Dextrose (Levophed/D5W) 500 ml @ 1.87 mls/hr TITRATE IV ; Start 02/13/17 at 12:00; Status Future hold Morphine Sulfate (morphine) 2 mg Q4H PRN IV pain Last administered on 12:41; Admin Dose 2 MG; Start 02/20/17 at 18:30 Docusate Sodium 100 mg 100 mg QHS PRN NGT For Constipation; Start 02/25/17 at 21:00 Fentanyl 100 ml @ 2.5 mls/hr TITRATE IV Last administered on 02/26/17 13:45; Admin Dose 2.5 MLS/HR; Start 02/25/17 at 10:00 Midazolam HCl 50 ml @ 1 mls/hr TITRATE IV Last administered on 02/25/17 18:11 ; Admin Dose 3 MLS/HR; Start 02/25/17 at 10:00 Meropenem 100 ml @ 200 mls/hr Q8 IVPB Last administered on 02/27/17 08:47; Admin Dose 200 MLS/HR; Start 02/26/17 at 14:00 Fluconazole 100 ml @ 100 mls/hr Q24H IVPB Last administered on 02/26/17 20:01 ; Admin Dose 100 MLS/HR; Start 02/26/17 at 17:00 Vancomycin HCl (Vancocin) 250 ml @ 125 mls/hr Q12H IVPB Last administered on 03:50; Admin Dose 125 MLS/HR; Start 02/27/17 at 03:00 TONY MCCRAY February 27, 2017 09:42
--- NOTE | 2017-02-27 11:07 | PN ---
Date/Time of Note Date/Time of Note DATE: 02/27/17 TIME: 11:06 Assessment/Plan VTE Prophylaxis VTE Prophylaxis Intervention: SCD's Lines/Catheters IV Catheter Type (from Nrs): PICC Line Central line still needed: No Urinary Cath still in place: Yes Reason Cath still needed: urinary retention Assessment/Plan Assessment/Plan Perforated colon status post surgery Severe sepsis Respiratory [id number] Low normal ejection fraction 50% Acute decompensated diastolic congestive heart failure Crohn's disease Acute blood loss anemia - Sinus tachycardia likely manifestation of fevers, sepsis and respiratory failure. IV diuretics on hold. Would not restart until blood pressure remains stable. Antibiotics as per infectious disease. Updated patient's family at bedside regarding cardiac status. Subjective 24 Hr Interval Summary Free Text/Dictation The patient with no change Exam/Review of Systems Vital Signs Vitals Vital Signs Date Time Temp Pulse Resp B/P Pulse Ox O2 Delivery O2 Flow Rate FiO2 02/27/17 08:00 105 02/27/17 06:30 17 109/75 100 02/27/17 06:00 Mechanical Ventilator 02/27/17 05:39 40 02/27/17 04:00 99.8 02/24/17 13:00 15.0 Intake and Output 02/26/17 02/26/17 02/27/17 15:00 23:00 07:00 Intake Total 677.5 ml 1130.0 ml 797.5 ml Output Total 350 ml 370 ml 931 ml Balance 327.5 ml 760.0 ml -133.5 ml Results Result Diagram: 02/27/17 0400 02/27/17 0400 Results 24 hrs Laboratory Tests Test 02/26/17 12:35 02/26/17 15:30 02/26/17 16:00 02/27/17 04:00 Lactic Acid Level 2.2 2.4 H Body Fluid Type THORACENTESIS FLUID Body Fluid Volume 430.0 Body Fluid Color RED Body Fluid Appearance BLOODY Body Fluid WBC 5480 Body Fluid RBC Body Fluid Neutrophils % 94.0 Body Fluid Lymphocytes (%) 3.0 Body Fluid Monocytes % 3.0 Body Fluid Eosinophils % 0 Body Fluid Glucose 90 Body Fluid Total Protein 2.6 Body Fluid Lactate Dehydrogenase Thyroid Stimulating Hormone (TSH) 5.040 H Random Cortisol 21.4 White Blood Count 16.4 H Red Blood Count 2.37 L Hemoglobin 6.7 *L Hematocrit 22.0 L Mean Corpuscular Volume 92.8 Mean Corpuscular Hemoglobin 28.3 L Mean Corpuscular Hemoglobin Concent 30.5 L Red Cell Distribution Width 14.9 H Platelet Count 451 H Mean Platelet Volume 11.0 H Neutrophils % 91.0 H Lymphocytes % 3.0 L Monocytes % 5.0 Eosinophils % 1.0 Basophils % Nucleated Red Blood Cells % Neutrophils # 14.9 H Lymphocytes # 0.5 L Monocytes # 0.8 Eosinophils # 0.2 Basophils # Nucleated Red Blood Cells # Differential Comment MANUAL DIFF Sodium Level 140 Potassium Level 3.8 Chloride Level 99 Carbon Dioxide Level 32 H Anion Gap 13 Blood Urea Nitrogen 22 H Creatinine 0.74 Glucose Level 112 Calcium Level 7.4 L Phosphorus Level 4.4 Magnesium Level 1.6 L Test 02/27/17 07:00 Blood Gas Specimen Source Blood arterial Arterial Blood Date Drawn 02/27/2017 8:00:28 AM Arterial Blood pH (Temp corrected) 7.484 H Arterial Blood pCO2 (Temp correct) 44.3 Arterial Blood pO2 (Temp corrected) 85.4 Arterial Blood HCO3 32.5 H Arterial Blood Base Excess 8.3 H Arterial Blood Oxygen Saturation 96.0 Raffy Test ACCEPTAB Arterial Blood Gas Puncture Site Right Radial Arterial Blood Carboxyhemoglobin 0.3 Arterial Blood Methemoglobin 0.3 Blood Gas A-a O2 Differential 148.9 H Oxyhemoglobin Percent 95.4 Total Hemoglobin 8.3 L Blood Gas Temperature 37.0 Blood Gas Respiration Rate 16.0 Blood Gas Actual Respiration Rate 21 Blood Gas Modality VENT - AC FiO2 40.0 Blood Gas Tidal Volume 550.0 Blood Gas High PEEP Setting 5.0 Blood Gas Notified Whom TM Blood Gas Notified Time 02/27/2017 9:08:45 AM Medications Medications Current Medications Pantoprazole (Protonix Iv) 40 mg DAILY@06 IV Last administered on 02/27/17 05: 40; Admin Dose 40 MG; Start 02/01/17 at 06:00 Acetaminophen/ Hydrocodone Bitart ([place] (5/325)) 1 tab Q4H PRN PO PAIN LEVEL 4 -7 Last administered on 02/09/17 18:48; Admin Dose 1 TAB; Start 02/01/17 at 20: 30 Acetaminophen/ Hydrocodone Bitart ([place] (5/325)) 2 tab Q4H PRN PO PAIN LEVEL 7 -10; Start 02/01/17 at 20:30 Bisacodyl (Dulcolax Supp) 10 mg BID PRN [place] CONSTIPATION; Start 02/01/17 at 20: 30 Sodium Biphosphate/ Sodium Phosphate (Fleet Enema) 133 ml BID PRN [place] CONSTIPATION; Start 02/01/17 at 20:30 Acetaminophen (Tylenol Liquid) 650 mg Q4H PRN GTB PAIN AND OR ELEVATED TEMP Last administered on 02/27/17 01:54; Admin Dose 650 MG; Start 02/05/17 at 18:30 Salmeterol Xinafoate/ Fluticasone (Advair 250/50 Diskus) 1 inh BID INH Last administered on 02/12/17 09:03; Admin Dose 1 INH; Start 02/07/17 at 11:00; Status Future Hold IV Flush (NS 10 ml) 10 ml PRN PRN IV IV PROTOCOL; Start 02/07/17 at 14:30 Diphenhydramine HCl 25 mg 25 mg Q6H PRN IV itching ; Start 02/07/17 at 20:00 Ondansetron HCl/ Sodium Chloride (Zofran Inj/NS) 54 ml @ 216 mls/hr Q6H PRN IV NAUSEA AND/OR VOMITING; Start 02/09/17 at 11:30 Prednisone (Prednisone) 40 mg DAILY PO Last administered on 02/12/17 09:03; Admin Dose 40 MG; Start 02/11/17 at 09:00; Status Future Hold Lorazepam (Ativan) 1 mg Q2 PRN IV AGITATION/ANXIETY Last administered on 20:10; Admin Dose 1 MG; Start 02/10/17 at 17:00 Lorazepam (Ativan) 1 mg Q1HWA PRN IM AGITATION/ANXIETY; Start 02/10/17 at 19:00 Trimethobenzamide HCl 200 mg 200 mg Q6H PRN IM NAUSEA AND/OR VOMITING; Start at 19:30 Norepinephrine/ Dextrose (Levophed/D5W) 500 ml @ 1.87 mls/hr TITRATE IV ; Start 02/13/17 at 12:00; Status Future hold Morphine Sulfate (morphine) 2 mg Q4H PRN IV pain Last administered on 12:41; Admin Dose 2 MG; Start 02/20/17 at 18:30 Docusate Sodium 100 mg 100 mg QHS PRN NGT For Constipation; Start 02/25/17 at 21:00 Fentanyl 100 ml @ 2.5 mls/hr TITRATE IV Last administered on 02/26/17 13:45; Admin Dose 2.5 MLS/HR; Start 02/25/17 at 10:00 Midazolam HCl 50 ml @ 1 mls/hr TITRATE IV Last administered on 02/25/17 18:11 ; Admin Dose 3 MLS/HR; Start 02/25/17 at 10:00 Meropenem 100 ml @ 200 mls/hr Q8 IVPB Last administered on 02/27/17 08:47; Admin Dose 200 MLS/HR; Start 02/26/17 at 14:00 Fluconazole 100 ml @ 100 mls/hr Q24H IVPB Last administered on 02/26/17 20:01 ; Admin Dose 100 MLS/HR; Start 02/26/17 at 17:00 Vancomycin HCl (Vancocin) 250 ml @ 125 mls/hr Q12H IVPB Last administered on 03:50; Admin Dose 125 MLS/HR; Start 02/27/17 at 03:00 FILEMON WYNNE MD February 27, 2017 11:07
--- NOTE | 2017-02-27 11:23 | RADRPT ---
PROCEDURE: XR Chest. CLINICAL INDICATION: Pneumonia, CHF TECHNIQUE: Single frontal chest x-ray. COMPARISON: 02/26/2017 FINDINGS: Hazy bibasilar pulmonary opacities are grossly stable, likely atelectasis and/or small pleural effus ions. There is no pneumothorax. Endotracheal tube, nasogastric tube, and right-sided PICC line rem ain in place. Cardiomediastinal silhouette is within normal limits. The osseous structures are unr emarkable. IMPRESSION: 1. Grossly stable bibasilar atelectasis and/or small pleural effusions. 2. Lines and tubes remain in place. 3. No significant interval change. RPTAT: QQ .Angel Whiteside MD, MD Date Time Electronically viewed and signed by .Angel Whiteside MD, on 02/27/2017 11:23 .R/
--- NOTE | 2017-02-27 11:24 | PN ---
Date/Time of Note Date/Time of Note DATE: 02/27/17 TIME: 11:19 Assessment/Plan VTE Prophylaxis VTE Prophylaxis Intervention: SCD's Lines/Catheters IV Catheter Type (from Nrs): PICC Line Central line still needed: Yes Urinary Cath still in place: Yes Reason Cath still needed: urinary retention Assessment/Plan Chief Complaint/Hosp Course Assessment/Plan: 46M with: 1. Perforated sigmoid colon 2/2 Severe Crohn's colitis * S/p Urgent Open Cronin's procedure with end colostomy, liver biopsy and abdominal lavage 02/01/17P * S/p post operative paracolic abscess drained via CT 02/14/[address] * S/p Exploration of abdomen through recent laparotomy site with closure of fascia done 02/15/17 for Fascia dehiscence - Continue Wound care and wound Vac 2. Recurrent Resp failure: Extubated then reintubated 02/13, extubated, then reintubated 02/25/17. S/p bronch. + fevere -CBT, and mucomist, abx, f/u pulm rec's 3. Exacerbation of Crohn's disease with acute colitis and diarrhea Cultures eralier were growing ecoli / proteus / enterococcus 4. Multifocal PNA + Mook Pleural effusions - Effusions likely hydrostatic from hypoalbuminemia. + fevers - monitor, ID managing abx and antifungal 5. Severe Sepsis with lactic acidosis 2/2 severe colitis / PNA - now with fevers again, oneal cx, back on abx. 6. S/p Systemic shock (hypovolemic +septic) - again, see # 5, abx. 7. TPN therapy for low prealbumin + tube feeds - Gentle diuresis with daily albumin 8. Hx of heavy alcohol and tobacco use just until admission - monitor 9. Probable underlying COPD and Cirrhosis based on hx which explains hypoalbuminemia and anasarca - monitor 10. Severe recurrent anemia likely 2/2 occult blood loss from multiple sources : PRN transfusions 11. Hypomagnesemia - replete as needed * SCD's for DVT ppx CRITICAL CARE TIME: 40 mins Problems: Subjective 24 Hr Interval Summary Free Text/Dictation Pt had thoracentesis yesterday. Still + fevers. Getting pRBC transfusion, still intubated. Exam/Review of Systems Vital Signs Vitals Vital Signs Date Time Temp Pulse Resp B/P Pulse Ox O2 Delivery O2 Flow Rate FiO2 5/13/17 08:00 105 02/27/17 06:30 17 109/75 100 02/27/17 06:00 Mechanical Ventilator 02/27/17 05:39 40 02/27/17 04:00 99.8 02/24/17 13:00 15.0 Intake and Output 02/26/17 02/26/17 02/27/17 15:00 23:00 07:00 Intake Total 677.5 ml 1130.0 ml 797.5 ml Output Total 350 ml 370 ml 931 ml Balance 327.5 ml 760.0 ml -133.5 ml Exam Constitutional: intubated, but awake today, NAD Head: normocephalic Eyes: PERRL, icteric ENMT: other (NGT) Respiratory: some diminished breath sounds, No wheezing Cardiovascular: regular rate and rhythm, No murmurs/extra sounds Gastrointestinal: other (midline surgical dressing with wound vac / L sided colostomy and drain / colostomy has dark green fluidy stool), soft otherwise Genitourinary - Male: other (significant scrotal and penile edema) Musculoskeletal: swelling (generalized severe anasarca) Extremities: pitting pedal edema Neurological: intubated Results Result Diagram: 02/27/17 0400 02/27/17 0400 Results 24 hrs Laboratory Tests Test 02/26/17 12:35 02/26/17 15:30 02/26/17 16:00 02/27/17 04:00 Lactic Acid Level 2.2 2.4 H Body Fluid Type THORACENTESIS FLUID Body Fluid Volume 430.0 Body Fluid Color RED Body Fluid Appearance BLOODY Body Fluid WBC 5480 Body Fluid RBC Body Fluid Neutrophils % 94.0 Body Fluid Lymphocytes (%) 3.0 Body Fluid Monocytes % 3.0 Body Fluid Eosinophils % 0 Body Fluid Glucose 90 Body Fluid Total Protein 2.6 Body Fluid Lactate Dehydrogenase Thyroid Stimulating Hormone (TSH) 5.040 H Random Cortisol 21.4 White Blood Count 16.4 H Red Blood Count 2.37 L Hemoglobin 6.7 *L Hematocrit 22.0 L Mean Corpuscular Volume 92.8 Mean Corpuscular Hemoglobin 28.3 L Mean Corpuscular Hemoglobin Concent 30.5 L Red Cell Distribution Width 14.9 H Platelet Count 451 H Mean Platelet Volume 11.0 H Neutrophils % 91.0 H Lymphocytes % 3.0 L Monocytes % 5.0 Eosinophils % 1.0 Basophils % Nucleated Red Blood Cells % Neutrophils # 14.9 H Lymphocytes # 0.5 L Monocytes # 0.8 Eosinophils # 0.2 Basophils # Nucleated Red Blood Cells # Differential Comment MANUAL DIFF Sodium Level 140 Potassium Level 3.8 Chloride Level 99 Carbon Dioxide Level 32 H Anion Gap 13 Blood Urea Nitrogen 22 H Creatinine 0.74 Glucose Level 112 Calcium Level 7.4 L Phosphorus Level 4.4 Magnesium Level 1.6 L Test 02/27/17 07:00 Blood Gas Specimen Source Blood arterial Arterial Blood Date Drawn 02/27/2017 8:00:28 AM Arterial Blood pH (Temp corrected) 7.484 H Arterial Blood pCO2 (Temp correct) 44.3 Arterial Blood pO2 (Temp corrected) 85.4 Arterial Blood HCO3 32.5 H Arterial Blood Base Excess 8.3 H Arterial Blood Oxygen Saturation 96.0 Raffy Test ACCEPTAB Arterial Blood Gas Puncture Site Right Radial Arterial Blood Carboxyhemoglobin 0.3 Arterial Blood Methemoglobin 0.3 Blood Gas A-a O2 Differential 148.9 H Oxyhemoglobin Percent 95.4 Total Hemoglobin 8.3 L Blood Gas Temperature 37.0 Blood Gas Respiration Rate 16.0 Blood Gas Actual Respiration Rate 21 Blood Gas Modality VENT - AC FiO2 40.0 Blood Gas Tidal Volume 550.0 Blood Gas High PEEP Setting 5.0 Blood Gas Notified Whom TM Blood Gas Notified Time 02/27/2017 9:08:45 AM Medications Medications Current Medications Pantoprazole (Protonix Iv) 40 mg DAILY@06 IV Last administered on 02/27/17 05: 40; Admin Dose 40 MG; Start 02/01/17 at 06:00 Acetaminophen/ Hydrocodone Bitart ([place] (5/325)) 1 tab Q4H PRN PO PAIN LEVEL 4 -7 Last administered on 02/09/17 18:48; Admin Dose 1 TAB; Start 02/01/17 at 20: 30 Acetaminophen/ Hydrocodone Bitart ([place] (5/325)) 2 tab Q4H PRN PO PAIN LEVEL 7 -10; Start 02/01/17 at 20:30 Bisacodyl (Dulcolax Supp) 10 mg BID PRN [place] CONSTIPATION; Start 02/01/17 at 20: 30 Sodium Biphosphate/ Sodium Phosphate (Fleet Enema) 133 ml BID PRN [place] CONSTIPATION; Start 02/01/17 at 20:30 Acetaminophen (Tylenol Liquid) 650 mg Q4H PRN GTB PAIN AND OR ELEVATED TEMP Last administered on 02/27/17 01:54; Admin Dose 650 MG; Start 02/05/17 at 18:30 Salmeterol Xinafoate/ Fluticasone (Advair 250/50 Diskus) 1 inh BID INH Last administered on 02/12/17 09:03; Admin Dose 1 INH; Start 02/07/17 at 11:00; Status Future Hold IV Flush (NS 10 ml) 10 ml PRN PRN IV IV PROTOCOL; Start 02/07/17 at 14:30 Diphenhydramine HCl 25 mg 25 mg Q6H PRN IV itching ; Start 02/07/17 at 20:00 Ondansetron HCl/ Sodium Chloride (Zofran Inj/NS) 54 ml @ 216 mls/hr Q6H PRN IV NAUSEA AND/OR VOMITING; Start 02/09/17 at 11:30 Prednisone (Prednisone) 40 mg DAILY PO Last administered on 02/12/17 09:03; Admin Dose 40 MG; Start 02/11/17 at 09:00; Status Future Hold Lorazepam (Ativan) 1 mg Q2 PRN IV AGITATION/ANXIETY Last administered on 20:10; Admin Dose 1 MG; Start 02/10/17 at 17:00 Lorazepam (Ativan) 1 mg Q1HWA PRN IM AGITATION/ANXIETY; Start 02/10/17 at 19:00 Trimethobenzamide HCl 200 mg 200 mg Q6H PRN IM NAUSEA AND/OR VOMITING; Start at 19:30 Norepinephrine/ Dextrose (Levophed/D5W) 500 ml @ 1.87 mls/hr TITRATE IV ; Start 02/13/17 at 12:00; Status Future hold Morphine Sulfate (morphine) 2 mg Q4H PRN IV pain Last administered on 12:41; Admin Dose 2 MG; Start 02/20/17 at 18:30 Docusate Sodium 100 mg 100 mg QHS PRN NGT For Constipation; Start 02/25/17 at 21:00 Fentanyl 100 ml @ 2.5 mls/hr TITRATE IV Last administered on 02/26/17 13:45; Admin Dose 2.5 MLS/HR; Start 02/25/17 at 10:00 Midazolam HCl 50 ml @ 1 mls/hr TITRATE IV Last administered on 02/25/17 18:11 ; Admin Dose 3 MLS/HR; Start 02/25/17 at 10:00 Meropenem 100 ml @ 200 mls/hr Q8 IVPB Last administered on 02/27/17 08:47; Admin Dose 200 MLS/HR; Start 02/26/17 at 14:00 Fluconazole 100 ml @ 100 mls/hr Q24H IVPB Last administered on 02/26/17 20:01 ; Admin Dose 100 MLS/HR; Start 02/26/17 at 17:00 Vancomycin HCl (Vancocin) 250 ml @ 125 mls/hr Q12H IVPB Last administered on 03:50; Admin Dose 125 MLS/HR; Start 02/27/17 at 03:00 SUSAN SANCHEZ February 27, 2017 11:24
--- NOTE | 2017-02-27 13:12 | CONS ---
Date/Time of Note Date/Time of Note DATE: 02/27/17 TIME: 13:05 Consult Date/Type/Reason Admit Date/Time Feb 01, 2017 at 03:10 Initial Consult Date 02/02/17 Type of Consultation: Pulm/CCM Ordering Provider: VINCE PADGETT Subjective Alert and awake on vent. Writing on note pad. Vital capacity 1600 ml. Objective Vital Signs Date Time Temp Pulse Resp B/P Pulse Ox O2 Delivery O2 Flow Rate FiO2 02/27/17 08:00 105 02/27/17 06:30 17 109/75 100 02/27/17 06:00 Mechanical Ventilator 02/27/17 05:39 40 02/27/17 04:00 99.8 02/24/17 13:00 15.0 Intake and Output 02/26/17 02/26/17 02/27/17 15:00 23:00 07:00 Intake Total 677.5 ml 1130.0 ml 797.5 ml Output Total 350 ml 370 ml 931 ml Balance 327.5 ml 760.0 ml -133.5 ml Exam HEENT: Neck supple; no JVD; no LAD CVS: RRR, S1 and S2 CHEST: Clear ABD: Soft, NT, + BS; wound clear EXT: No c/c/e Results/Medications Result Diagram: 02/27/17 0400 02/27/17 0400 Results 24 hrs Laboratory Tests Test 02/26/17 15:30 02/26/17 16:00 02/27/17 04:00 02/27/17 07:00 Body Fluid Type THORACENTESIS FLUID Body Fluid Volume 430.0 Body Fluid Color RED Body Fluid Appearance BLOODY Body Fluid WBC 5480 Body Fluid RBC Body Fluid Neutrophils % 94.0 Body Fluid Lymphocytes (%) 3.0 Body Fluid Monocytes % 3.0 Body Fluid Eosinophils % 0 Body Fluid Glucose 90 Body Fluid Total Protein 2.6 Body Fluid Lactate Dehydrogenase Thyroid Stimulating Hormone (TSH) 5.040 H Random Cortisol 21.4 White Blood Count 16.4 H Red Blood Count 2.37 L Hemoglobin 6.7 *L Hematocrit 22.0 L Mean Corpuscular Volume 92.8 Mean Corpuscular Hemoglobin 28.3 L Mean Corpuscular Hemoglobin Concent 30.5 L Red Cell Distribution Width 14.9 H Platelet Count 451 H Mean Platelet Volume 11.0 H Neutrophils % 91.0 H Lymphocytes % 3.0 L Monocytes % 5.0 Eosinophils % 1.0 Basophils % Nucleated Red Blood Cells % Neutrophils # 14.9 H Lymphocytes # 0.5 L Monocytes # 0.8 Eosinophils # 0.2 Basophils # Nucleated Red Blood Cells # Differential Comment MANUAL DIFF Sodium Level 140 Potassium Level 3.8 Chloride Level 99 Carbon Dioxide Level 32 H Anion Gap 13 Blood Urea Nitrogen 22 H Creatinine 0.74 Glucose Level 112 Lactic Acid Level 2.4 H Calcium Level 7.4 L Phosphorus Level 4.4 Magnesium Level 1.6 L Blood Gas Specimen Source Blood arterial Arterial Blood Date Drawn 02/27/2017 8:00:28 AM Arterial Blood pH (Temp corrected) 7.484 H Arterial Blood pCO2 (Temp correct) 44.3 Arterial Blood pO2 (Temp corrected) 85.4 Arterial Blood HCO3 32.5 H Arterial Blood Base Excess 8.3 H Arterial Blood Oxygen Saturation 96.0 Raffy Test ACCEPTAB Arterial Blood Gas Puncture Site Right Radial Arterial Blood Carboxyhemoglobin 0.3 Arterial Blood Methemoglobin 0.3 Blood Gas A-a O2 Differential 148.9 H Oxyhemoglobin Percent 95.4 Total Hemoglobin 8.3 L Blood Gas Temperature 37.0 Blood Gas Respiration Rate 16.0 Blood Gas Actual Respiration Rate 21 Blood Gas Modality VENT - AC FiO2 40.0 Blood Gas Tidal Volume 550.0 Blood Gas High PEEP Setting 5.0 Blood Gas Notified Whom TM Blood Gas Notified Time 02/27/2017 9:08:45 AM Medications Current Medications Pantoprazole (Protonix Iv) 40 mg DAILY@06 IV Last administered on 02/27/17 05: 40; Admin Dose 40 MG; Start 02/01/17 at 06:00 Acetaminophen/ Hydrocodone Bitart ([place] (5/325)) 1 tab Q4H PRN PO PAIN LEVEL 4 -7 Last administered on 02/09/17 18:48; Admin Dose 1 TAB; Start 02/01/17 at 20: 30 Acetaminophen/ Hydrocodone Bitart ([place] (5/325)) 2 tab Q4H PRN PO PAIN LEVEL 7 -10; Start 02/01/17 at 20:30 Bisacodyl (Dulcolax Supp) 10 mg BID PRN [place] CONSTIPATION; Start 02/01/17 at 20: 30 Sodium Biphosphate/ Sodium Phosphate (Fleet Enema) 133 ml BID PRN [place] CONSTIPATION; Start 02/01/17 at 20:30 Acetaminophen (Tylenol Liquid) 650 mg Q4H PRN GTB PAIN AND OR ELEVATED TEMP Last administered on 02/27/17 12:37; Admin Dose 650 MG; Start 02/05/17 at 18:30 Salmeterol Xinafoate/ Fluticasone (Advair 250/50 Diskus) 1 inh BID INH Last administered on 02/12/17 09:03; Admin Dose 1 INH; Start 02/07/17 at 11:00; Status Future Hold IV Flush (NS 10 ml) 10 ml PRN PRN IV IV PROTOCOL; Start 02/07/17 at 14:30 Diphenhydramine HCl 25 mg 25 mg Q6H PRN IV itching ; Start 02/07/17 at 20:00 Ondansetron HCl/ Sodium Chloride (Zofran Inj/NS) 54 ml @ 216 mls/hr Q6H PRN IV NAUSEA AND/OR VOMITING; Start 02/09/17 at 11:30 Prednisone (Prednisone) 40 mg DAILY PO Last administered on 02/12/17 09:03; Admin Dose 40 MG; Start 02/11/17 at 09:00; Status Future Hold Lorazepam (Ativan) 1 mg Q2 PRN IV AGITATION/ANXIETY Last administered on 20:10; Admin Dose 1 MG; Start 02/10/17 at 17:00 Lorazepam (Ativan) 1 mg Q1HWA PRN IM AGITATION/ANXIETY; Start 02/10/17 at 19:00 Trimethobenzamide HCl 200 mg 200 mg Q6H PRN IM NAUSEA AND/OR VOMITING; Start at 19:30 Norepinephrine/ Dextrose (Levophed/D5W) 500 ml @ 1.87 mls/hr TITRATE IV ; Start 02/13/17 at 12:00; Status Future hold Morphine Sulfate (morphine) 2 mg Q4H PRN IV pain Last administered on 12:41; Admin Dose 2 MG; Start 02/20/17 at 18:30 Docusate Sodium 100 mg 100 mg QHS PRN NGT For Constipation; Start 02/25/17 at 21:00 Fentanyl 100 ml @ 2.5 mls/hr TITRATE IV Last administered on 02/26/17 13:45; Admin Dose 2.5 MLS/HR; Start 02/25/17 at 10:00 Midazolam HCl 50 ml @ 1 mls/hr TITRATE IV Last administered on 02/25/17 18:11 ; Admin Dose 3 MLS/HR; Start 02/25/17 at 10:00 Meropenem 100 ml @ 200 mls/hr Q8 IVPB Last administered on 02/27/17 08:47; Admin Dose 200 MLS/HR; Start 02/26/17 at 14:00 Fluconazole 100 ml @ 100 mls/hr Q24H IVPB Last administered on 02/26/17 20:01 ; Admin Dose 100 MLS/HR; Start 02/26/17 at 17:00 Vancomycin HCl (Vancocin) 250 ml @ 125 mls/hr Q12H IVPB Last administered on 03:50; Admin Dose 125 MLS/HR; Start 02/27/17 at 03:00 Assessment/Plan Additional Assessment/Plan IMP: 1. Recurrent respiratory failure with mucus plugging and complete left lung ATX. Concern for neuromuscular weakness, though examination and Vital Capacity not consistent. Concern for bulbar issue resulting in recurrent failure 2. Crohn's Disease s/p perf 3. Fevers/Leukocytosis--r/o intra-abdominal source 4. Anemia 5. Thrombocytopenia resolved RECS: 1. Continue mechanical ventilation; will attempt weaning again however, this recurrent trend without clear etiology is troubling 2. f/u pleural fluid studies 3. CT abdomen/pelvis is reasonable 4. Continue broad-spectrum antibiotic coverage 5. Patient still has significant aspiration risk discussed with speech therapy 6. DVT GI prophylaxis 35 min cc time JAYA POPE MD February 27, 2017 13:12
--- NOTE | 2017-02-27 13:45 | PN ---
Date/Time of Note Date/Time of Note DATE: 02/27/17 TIME: 13:42 Assessment/Plan Lines/Catheters IV Catheter Type (from Nrs): PICC Line Zeng in Place (from Nrsg): Yes Assessment/Plan Assessment/Plan [facility] Progress Note Date of Service: 02/27/17 Today's Impression & Plan: Overall stable. Remains intubated with ongoing pulmonary issues. Etiology of failure to thrive is unclear. Abd remains benign and seems to be tolerating gastric feeds, although ostomy outputs are still minimal. No obvious abd distension, pain, wound issues or other obvious clarifying signs or symptoms. Stool guaiac negative x 2 (most recent one on the ), yet chronically loosing blood requiring infrequent blood transfusions. TSH slightly elevated; random cortisol normal. Overall unclear clinical picture. Discussed with Dr. Sweeney ( who had just updated patient's father). No indication for acute surgical intervention. Remains high risk for complication given perforated colon in the setting of uncontrolled Crohn's. Recovery will take extra time with likely need for rehab. With above assessment, I've recommended the following for today: 1. Cont current cares in ICU 2. F/u on cultures 3. Cont TPN 4. Pulmonary toilet and recheck of status for the left lung; agree with plans to extubate today 5. Cont gentle diuresis to BMP < 200 6. Social work and case management to please start working on possible rehab vs. home health nurse set up 7. Increase activity 8. Increase ICS 9. Wean off broad spec antimicrobials 10. Labs in am 11. Cont current wound care with wound vac 12. Consider hematology consultation and send peripheral smear 13. Add LFT's to tomorrow's labs 14. May consider brain MRI Thank you again for your great care of this very pleasant patient and wonderful family. If there are any questions, please feel free to call me at [phone]. TOTAL VISIT TIME: 20 minutes of which more than half was spent in [id number] discussion with the patient, possibly including family, as well as coordination of care between multiple physicians and providers. Disclaimer: Inadvertent spelling or grammatical errors are likely due to EHR/ dictation software use and do not reflect on the overall quality of patient care. Updated Clinical Summary: A very pleasant 46-year-old gentleman with history of Crohn's disease as well as prior surgery for anal fistula approximately 5 years ago, and a torn meniscus repair on the left knee, presenting with abdominal pain associated with a few weeks' duration of diarrhea. S/p an otherwise uncomplicated diagnostic laparoscopy was converted first to hand assist and then to open exploration when perforated sigmoid colon was found and it was resected with a Deena type procedure and end colostomy as well as core needle liver biopsy, segment 5, due to presence of fatty liver disease, lysis of adhesions, and abdominal lavage on 02/01/17. Failed to wean off the vent through 02/06/17. PE was evaluated 02/07/[address] angio and no evidence found. CT abd/pelvis also did not show actionable findings (no abscess; bowel thickening somewhat expected). Extubated 02/07/17. 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 Fortunately, mentally appears to be intact and not on pressors. Lactic acid and CO2 normal with benign appearing abd and viable ostomy. Complicated by fascia dehiscence. S/p exploration of abdomen through recent laparotomy, primary closure of fascia and abdominal lavage on 02/15/17. Reintubated 02/25/17 for bronchoscopy to remove mucus plug. COMORBIDITIES: 1. Crohn disease with perforation of sigmoid colon and sepsis. S/p an otherwise uncomplicated diagnostic laparoscopy was converted first to hand assist and then to open exploration when perforated sigmoid colon was found and it was resected with a Deena type procedure and end colostomy as well as core needle liver biopsy, segment 5, due to presence of fatty liver disease, lysis of adhesions, and abdominal lavage on 02/01/17. Complicated by respiratory failure, return trip to ICU and fascia dehiscence. S/p exploration of abdomen through recent laparotomy, primary closure of fascia and abdominal lavage on 02/15. 2. Repair of a fistula approximately 5 years ago. 3. Torn meniscus on the left knee status post repair. Subjective: No major events overnight; no major complaints; no major SOB and no CP; + BM; remained intubated Objective: Vitals: See below Exam: GENERAL: On exam, the patient was laying in bed and appeared to be comfortable and in no acute distress. On the vent. ABDOMEN: Soft, nontender and nondistended. Incision wound vac dressings are clean without any evidence of obvious erythema, edema, discharge, or hernia. Wound vac with no sig drainage. Surgery drain site clean. Ostomy pink and viable ; some air and stool in the bag. There are no peritoneal signs or guarding. SKIN: Skin appears to be pink and feels warm to touch. NEUROLOGIC: Patient is awake, alert and follows commands appropriately. Exam/Review of Systems Vital Signs Vitals Vital Signs Date Time Temp Pulse Resp B/P Pulse Ox O2 Delivery O2 Flow Rate FiO2 02/27/17 12:00 94 02/27/17 09:00 40 02/27/17 06:30 17 109/75 100 02/27/17 06:00 Mechanical Ventilator 02/27/17 04:00 99.8 02/24/17 13:00 15.0 Intake and Output 02/26/17 02/26/17 02/27/17 15:00 23:00 07:00 Intake Total 677.5 ml 1130.0 ml 797.5 ml Output Total 350 ml 370 ml 931 ml Balance 327.5 ml 760.0 ml -133.5 ml Results Result Diagram: 02/27/17 0400 02/27/17 0400 TI HILTON M.D. February 27, 2017 13:45
[2017-02-27] MEDS ORDERED: BARIUM SULF 2% 450 ML BTL (BERRY SMOOTHIE) PO ONE (14:30)
[2017-02-27] MEDS: FLUCONAZOLE 200 MG/NS (PMX) 100 ML IVPB SCH (17:33)
--- NOTE | 2017-02-27 18:30 | PN ---
DATE: 02/27/2017 SUBJECTIVE: The patient is awake, looks comfortable. He is still confused. He is still spiking fe vers with a T-max last night of 101.5. T-current 100, pulse 97, respirations 23, blood pressure 112 /72, saturation 97 on vent. WBC 16.4, H and H 6.7 and 22, platelets 451, neutrophils 91, BUN 22, creatinine 0.74. MICROBIOLOGY: Pleural fluid cultures remain negative. Bronchoalveolar lavage cultures preliminary negative. INDWELLINGS: Endotracheal tube, Zeng catheter, PICC line. ANTIMICROBIALS: 1. Vancomycin. 2. Meropenem. 3. Fluconazole. PHYSICAL EXAMINATION: GENERAL: This is an ill-appearing, middle-aged white man who is awake, in no distress. HEENT: Head atraumatic, normocephalic. Sclerae anicteric. Buccal mucosa dry. NECK: Supple, trachea midline. CHEST: Rise symmetrical. Breath sounds with scattered rhonchi. HEART: S1, S2. ABDOMEN: Soft. Bowel tones present. EXTREMITIES: With bilateral dependent edema lower extremities. ASSESSMENT: 1. Sepsis with ongoing fevers, rule out intraabdominal abscess. 2. Recurrent respiratory failure, status post reintubated. 3. Pneumonia with mucus plugs. 4. History of Crohn's disease, status post perforated viscus repair. 5. Acute on chronic anemia. PLAN: The patient remains hemodynamically stable, again with ongoing high fevers. Pulmonary cultur es have been negative. We are going to repeat CT of the abdomen to rule out intraabdominal patholog y. Dictated By: THOMAS ELLIS CONVALESCENT SITTER for MICKY RAMÍREZ/YAN Conf#: [id number] DID#: [id number]
[2017-02-28] VITALS (38 sets, daily range): BP systolic 110–143; BP diastolic 68–91; PULSE 93–107; RESP 10–41
[2017-02-28] MEDS ORDERED: ACETAMINOPHEN 1000MG/100ML IV 100 ML IVPB SCH (01:30)
[2017-02-28] MEDS: ACETYLCYSTEINE 20% 4 ML VIAL NEB SCH ×4 (01:46→20:05)
[2017-02-28] MEDS: ALBUTEROL/IPRATROPIUM (NEB) 3 ML AMP HHN SCH ×4 (01:46→20:05)
[2017-02-28] MEDS: LORAZEPAM 2 MG INJ IV PRN (03:35)
[2017-02-28] MEDS: VANCOMYCIN 1 GM in NS 250 ML IVPB SCH ×2 (03:49→15:45)
[2017-02-28 05:35] LABS: ADD SCAN DIFF NO
[2017-02-28 05:43] LABS: ABNORMAL IP MESSAGE 1; BASOPHIL # 0.1 10^3/ul (0.0-0.1); BASOPHILS % 0.7 % (0.0-2.0); EOSINOPHILS # 0.4 10^3/ul (0.0-0.5); EOSINOPHILS % 3.3 % (0.0-7.0); HEMATOCRIT 25.7 % (42.0-52.0); LYMPHOCYTES # 0.6 10^3/ul (0.8-2.9); LYMPHOCYTES % 4.6 % (15.0-51.0); MEAN CORPUSCULAR HEMOGLOBIN 28.4 pg (29.0-33.0); MEAN CORPUSCULAR HGB CONC 31.1 g/dl (32.0-37.0); MEAN CORPUSCULAR VOLUME 91.1 fl (82.0-101.0); MEAN PLATELET VOLUME 10.7 fl (7.4-10.4); MONOCYTE # 0.7 10^3/ul (0.3-0.9); MONOCYTES % 5.8 % (0.0-11.0); NEUTROPHIL # 10.9 10^3/ul (1.6-7.5); NEUTROPHILS % 84.9 % (39.0-77.0); PLATELET COUNT 486 10^3/UL (140-415); RED BLOOD COUNT 2.82 10^6/ul (4.70-6.10); RED CELL DISTRIBUTION WIDTH 14.3 % (11.5-14.5); WHITE BLOOD COUNT 12.8 10^3/ul (4.8-10.8)
[2017-02-28] MEDS: PANTOPRAZOLE 40 MG INJ IV SCH (05:57)
[2017-02-28] MEDS: MEROPENEM 1 GM/100 ML (PMX) 100 ML IVPB SCH ×3 (05:58→21:16)
[2017-02-28 06:10] LABS: POTASSIUM 3.6 mmol/L (3.5-5.1)
[2017-02-28 06:13] LABS: CREATININE 0.69 mg/dl (0.61-1.24)
[2017-02-28 06:14] LABS: CALCIUM 7.7 mg/dl (8.4-10.2)
[2017-02-28] MEDS: POTASSIUM CHLORIDE 50 ML IVPB PRN (06:57)
[2017-02-28] MEDS ORDERED: LIDOCAINE 1% (MPF) 5 ML VIAL SC ONE (07:30)
--- NOTE | 2017-02-28 09:26 | CONS ---
Date/Time of Note Date/Time of Note DATE: 02/28/17 TIME: 09:25 Assessment/Plan Assessment/Plan Additional Assessment/Plan Perforated sigmoid colon * Laparoscopic exploration,open sigmoid colectomy with Deena end colostomy with liver biopsy segment V h/o Crohn's disease Respiratory failure secondary Thrombocytopenia Liver Cirrhosis Anemia hemoglobin Atelectasis,compressive managed by pulmonary Plan: Continue present management Will reevaluate for Crohn's disease once recovered from surgery Further recommendations depend on clinical course Patient seen in collaboration with Dr. Jackson Consultation Date/Type/Reason Admit Date/Time Feb 01, 2017 at 03:10 Initial Consult Date 02/02/17 Type of Consultation: GI Referring Provider: VINCE PADGETT 24 HR Interval Summary Free Text/Dictation Safely extubated CT scan in process Exam/Review of Systems Vital Signs Vitals Vital Signs Date Time Temp Pulse Resp B/P Pulse Ox O2 Delivery O2 Flow Rate FiO2 02/28/17 08:30 98 24 98 Nasal Cannula 3.0 02/28/17 06:00 122/81 02/28/17 04:00 99.1 02/28/17 02:39 33 Intake and Output 02/27/17 02/27/17 02/28/17 15:00 23:00 07:00 Intake Total 995.0 ml 450 ml 350 ml Output Total 540 ml 710 ml 800 ml Balance 455.0 ml -260 ml -450 ml Exam Constitutional: frail Neck: non-tender, supple Respiratory: crackles/rales, diminished breath sounds Cardiovascular: nl pulses, regular rate and rhythm Gastrointestinal: non-tender, other (colostomy ), soft Musculoskeletal: nl extremities to inspection Lymph: nl lymph nodes Results Result Diagram: 02/28/17 0500 02/28/17 0500 Results 24 hrs Laboratory Tests Test 02/27/17 13:25 02/27/17 18:00 02/28/17 00:42 02/28/17 02:21 Lactic Acid Level 1.4 0.8 0.9 Vancomycin Level Trough 15.9 Test 02/28/17 05:00 White Blood Count 12.8 #H Red Blood Count 2.82 L Hemoglobin 8.0 L Hematocrit 25.7 L Mean Corpuscular Volume 91.1 Mean Corpuscular Hemoglobin 28.4 L Mean Corpuscular Hemoglobin Concent 31.1 L Red Cell Distribution Width 14.3 Platelet Count 486 H Mean Platelet Volume 10.7 H Neutrophils % 84.9 H Lymphocytes % 4.6 L Monocytes % 5.8 Eosinophils % 3.3 Basophils % 0.7 Nucleated Red Blood Cells % 0.0 Neutrophils # 10.9 H Lymphocytes # 0.6 L Monocytes # 0.7 Eosinophils # 0.4 Basophils # 0.1 Nucleated Red Blood Cells # 0.0 Sodium Level 142 Potassium Level 3.6 Chloride Level 101 Carbon Dioxide Level 31 Anion Gap 14 Blood Urea Nitrogen 18 Creatinine 0.69 Glucose Level 88 Lactic Acid Level 0.9 Calcium Level 7.7 L Magnesium Level 1.6 L Medications Medications Current Medications Pantoprazole (Protonix Iv) 40 mg DAILY@06 IV Last administered on 02/28/17 05: 57; Admin Dose 40 MG; Start 02/01/17 at 06:00 Acetaminophen/ Hydrocodone Bitart ([place] (5/325)) 1 tab Q4H PRN PO PAIN LEVEL 4 -7 Last administered on 02/09/17 18:48; Admin Dose 1 TAB; Start 02/01/17 at 20: 30 Acetaminophen/ Hydrocodone Bitart ([place] (5/325)) 2 tab Q4H PRN PO PAIN LEVEL 7 -10; Start 02/01/17 at 20:30 Bisacodyl (Dulcolax Supp) 10 mg BID PRN [place] CONSTIPATION; Start 02/01/17 at 20: 30 Sodium Biphosphate/ Sodium Phosphate (Fleet Enema) 133 ml BID PRN [place] CONSTIPATION; Start 02/01/17 at 20:30 Acetaminophen (Tylenol Liquid) 650 mg Q4H PRN GTB PAIN AND OR ELEVATED TEMP Last administered on 02/27/17 12:37; Admin Dose 650 MG; Start 02/05/17 at 18:30 Salmeterol Xinafoate/ Fluticasone (Advair 250/50 Diskus) 1 inh BID INH Last administered on 02/12/17 09:03; Admin Dose 1 INH; Start 02/07/17 at 11:00; Status Future Hold IV Flush (NS 10 ml) 10 ml PRN PRN IV IV PROTOCOL; Start 02/07/17 at 14:30 Diphenhydramine HCl 25 mg 25 mg Q6H PRN IV itching ; Start 02/07/17 at 20:00 Ondansetron HCl/ Sodium Chloride (Zofran Inj/NS) 54 ml @ 216 mls/hr Q6H PRN IV NAUSEA AND/OR VOMITING; Start 02/09/17 at 11:30 Prednisone (Prednisone) 40 mg DAILY PO Last administered on 02/12/17 09:03; Admin Dose 40 MG; Start 02/11/17 at 09:00; Status Future Hold Lorazepam (Ativan) 1 mg Q2 PRN IV AGITATION/ANXIETY Last administered on 03:35; Admin Dose 1 MG; Start 02/10/17 at 17:00 Lorazepam (Ativan) 1 mg Q1HWA PRN IM AGITATION/ANXIETY; Start 02/10/17 at 19:00 Trimethobenzamide HCl 200 mg 200 mg Q6H PRN IM NAUSEA AND/OR VOMITING; Start at 19:30 Norepinephrine/ Dextrose (Levophed/D5W) 500 ml @ 1.87 mls/hr TITRATE IV ; Start 02/13/17 at 12:00; Status Future hold Morphine Sulfate (morphine) 2 mg Q4H PRN IV pain Last administered on 12:41; Admin Dose 2 MG; Start 02/20/17 at 18:30 Docusate Sodium 100 mg 100 mg QHS PRN NGT For Constipation; Start 02/25/17 at 21:00 Fentanyl 100 ml @ 2.5 mls/hr TITRATE IV Last administered on 02/26/17 13:45; Admin Dose 2.5 MLS/HR; Start 02/25/17 at 10:00 Midazolam HCl 50 ml @ 1 mls/hr TITRATE IV Last administered on 02/25/17 18:11 ; Admin Dose 3 MLS/HR; Start 02/25/17 at 10:00 Meropenem 100 ml @ 200 mls/hr Q8 IVPB Last administered on 02/28/17 05:58; Admin Dose 200 MLS/HR; Start 02/26/17 at 14:00 Fluconazole 100 ml @ 100 mls/hr Q24H IVPB Last administered on 02/27/17 17:33 ; Admin Dose 100 MLS/HR; Start 02/26/17 at 17:00 Vancomycin HCl 250 ml @ 125 mls/hr Q12H IVPB Last administered on 02/28/17 03 :49; Admin Dose 125 MLS/HR; Start 02/27/17 at 03:00 Acetaminophen (Ofirmev 1000mg/ 100ml Iv) 100 ml @ 50 mls/hr Q6H PRN IVPB fever ; Start 02/28/17 at 07:30 TONY MCCRAY February 28, 2017 09:26
--- NOTE | 2017-02-28 10:22 | PN ---
Date/Time of Note Date/Time of Note DATE: 02/28/17 TIME: 10:19 Assessment/Plan VTE Prophylaxis VTE Prophylaxis Intervention: SCD's Lines/Catheters IV Catheter Type (from Nrs): Peripheral IV Urinary Cath still in place: Yes Reason Cath still needed: urinary retention Assessment/Plan Chief Complaint/Hosp Course Assessment/Plan: 46M with: 1. Perforated sigmoid colon 2/2 Severe Crohn's colitis * S/p Urgent Open Cronin's procedure with end colostomy, liver biopsy and abdominal lavage 02/01/17P * S/p post operative paracolic abscess drained via CT 02/14/[address] * S/p Exploration of abdomen through recent laparotomy site with closure of fascia done 02/15/17 for Fascia dehiscence - Continue Wound care and wound Vac 2. Recurrent Resp failure: Extubated then reintubated 02/13, extubated, then reintubated 02/25/17, then extubated last night. S/p bronch 2 days ago, still + fevers -CBT, and mucomist, abx, f/u pulm rec's 3. Exacerbation of Crohn's disease with acute colitis and diarrhea Cultures earlier were growing ecoli / proteus / enterococcus - for CT A/P to further assess today - f/u results 4. Multifocal PNA + Mook Pleural effusions - Effusions likely hydrostatic from hypoalbuminemia. + fevers - monitor, ID managing abx and antifungal 5. Severe Sepsis with lactic acidosis 2/2 severe colitis / PNA - now with fevers again, oneal cx, back on abx. - CT A/P 6. S/p Systemic shock (hypovolemic +septic) - again, see # 5, abx. 7. TPN therapy for low prealbumin + tube feeds - Gentle diuresis with daily albumin 8. Hx of heavy alcohol and tobacco use just until admission - monitor 9. Probable underlying COPD and Cirrhosis based on hx which explains hypoalbuminemia and anasarca - monitor 10. Severe recurrent anemia likely 2/2 occult blood loss from multiple sources : PRN transfusions 11. Hypomagnesemia - replete as needed * SCD's for DVT ppx CRITICAL CARE TIME: 45 mins Problems: Subjective 24 Hr Interval Summary Free Text/Dictation Pt extubated, still + fever last night, still confused but answering questions. Had pRBC transfusion last night. Awaiting CT A/P for later today. Exam/Review of Systems Vital Signs Vitals Vital Signs Date Time Temp Pulse Resp B/P Pulse Ox O2 Delivery O2 Flow Rate FiO2 02/28/17 08:30 98 24 98 Nasal Cannula 3.0 02/28/17 06:00 122/81 02/28/17 04:00 99.1 02/28/17 02:39 33 Intake and Output 02/27/17 02/27/17 02/28/17 15:00 23:00 07:00 Intake Total 995.0 ml 450 ml 350 ml Output Total 540 ml 710 ml 800 ml Balance 455.0 ml -260 ml -450 ml Exam Constitutional: extubated, awake, confused Head: normocephalic Eyes: PERRL, icteric ENMT: other (NGT) Respiratory: some diminished breath sounds, No wheezing Cardiovascular: regular rate and rhythm, No murmurs/extra sounds Gastrointestinal: other (midline surgical dressing with wound vac / L sided colostomy and drain / colostomy has dark green fluidy stool), soft otherwise Genitourinary - Male: other (significant scrotal and penile edema) Musculoskeletal: swelling (generalized severe anasarca) Extremities: some + pitting pedal edema Neurological: no focal deficits Results Result Diagram: 02/28/17 0500 02/28/17 0500 Results 24 hrs Laboratory Tests Test 02/27/17 13:25 02/27/17 18:00 02/28/17 00:42 02/28/17 02:21 Lactic Acid Level 1.4 0.8 0.9 Vancomycin Level Trough 15.9 Test 02/28/17 05:00 White Blood Count 12.8 #H Red Blood Count 2.82 L Hemoglobin 8.0 L Hematocrit 25.7 L Mean Corpuscular Volume 91.1 Mean Corpuscular Hemoglobin 28.4 L Mean Corpuscular Hemoglobin Concent 31.1 L Red Cell Distribution Width 14.3 Platelet Count 486 H Mean Platelet Volume 10.7 H Neutrophils % 84.9 H Lymphocytes % 4.6 L Monocytes % 5.8 Eosinophils % 3.3 Basophils % 0.7 Nucleated Red Blood Cells % 0.0 Neutrophils # 10.9 H Lymphocytes # 0.6 L Monocytes # 0.7 Eosinophils # 0.4 Basophils # 0.1 Nucleated Red Blood Cells # 0.0 Sodium Level 142 Potassium Level 3.6 Chloride Level 101 Carbon Dioxide Level 31 Anion Gap 14 Blood Urea Nitrogen 18 Creatinine 0.69 Glucose Level 88 Lactic Acid Level 0.9 Calcium Level 7.7 L Magnesium Level 1.6 L Medications Medications Current Medications Pantoprazole (Protonix Iv) 40 mg DAILY@06 IV Last administered on 02/28/17 05: 57; Admin Dose 40 MG; Start 02/01/17 at 06:00 Acetaminophen/ Hydrocodone Bitart ([place] (5/325)) 1 tab Q4H PRN PO PAIN LEVEL 4 -7 Last administered on 02/09/17 18:48; Admin Dose 1 TAB; Start 02/01/17 at 20: 30 Acetaminophen/ Hydrocodone Bitart ([place] (5/325)) 2 tab Q4H PRN PO PAIN LEVEL 7 -10; Start 02/01/17 at 20:30 Bisacodyl (Dulcolax Supp) 10 mg BID PRN [place] CONSTIPATION; Start 02/01/17 at 20: 30 Sodium Biphosphate/ Sodium Phosphate (Fleet Enema) 133 ml BID PRN [place] CONSTIPATION; Start 02/01/17 at 20:30 Acetaminophen (Tylenol Liquid) 650 mg Q4H PRN GTB PAIN AND OR ELEVATED TEMP Last administered on 02/27/17 12:37; Admin Dose 650 MG; Start 02/05/17 at 18:30 Salmeterol Xinafoate/ Fluticasone (Advair 250/50 Diskus) 1 inh BID INH Last administered on 02/12/17 09:03; Admin Dose 1 INH; Start 02/07/17 at 11:00; Status Future Hold IV Flush (NS 10 ml) 10 ml PRN PRN IV IV PROTOCOL; Start 02/07/17 at 14:30 Diphenhydramine HCl 25 mg 25 mg Q6H PRN IV itching ; Start 02/07/17 at 20:00 Ondansetron HCl/ Sodium Chloride (Zofran Inj/NS) 54 ml @ 216 mls/hr Q6H PRN IV NAUSEA AND/OR VOMITING; Start 02/09/17 at 11:30 Prednisone (Prednisone) 40 mg DAILY PO Last administered on 02/12/17 09:03; Admin Dose 40 MG; Start 02/11/17 at 09:00; Status Future Hold Lorazepam (Ativan) 1 mg Q2 PRN IV AGITATION/ANXIETY Last administered on 03:35; Admin Dose 1 MG; Start 02/10/17 at 17:00 Lorazepam (Ativan) 1 mg Q1HWA PRN IM AGITATION/ANXIETY; Start 02/10/17 at 19:00 Trimethobenzamide HCl 200 mg 200 mg Q6H PRN IM NAUSEA AND/OR VOMITING; Start at 19:30 Norepinephrine/ Dextrose (Levophed/D5W) 500 ml @ 1.87 mls/hr TITRATE IV ; Start 02/13/17 at 12:00; Status Future hold Morphine Sulfate (morphine) 2 mg Q4H PRN IV pain Last administered on 12:41; Admin Dose 2 MG; Start 02/20/17 at 18:30 Docusate Sodium 100 mg 100 mg QHS PRN NGT For Constipation; Start 02/25/17 at 21:00 Fentanyl 100 ml @ 2.5 mls/hr TITRATE IV Last administered on 02/26/17 13:45; Admin Dose 2.5 MLS/HR; Start 02/25/17 at 10:00 Midazolam HCl 50 ml @ 1 mls/hr TITRATE IV Last administered on 02/25/17 18:11 ; Admin Dose 3 MLS/HR; Start 02/25/17 at 10:00 Meropenem 100 ml @ 200 mls/hr Q8 IVPB Last administered on 02/28/17 05:58; Admin Dose 200 MLS/HR; Start 02/26/17 at 14:00 Fluconazole 100 ml @ 100 mls/hr Q24H IVPB Last administered on 02/27/17 17:33 ; Admin Dose 100 MLS/HR; Start 02/26/17 at 17:00 Vancomycin HCl 250 ml @ 125 mls/hr Q12H IVPB Last administered on 02/28/17 03 :49; Admin Dose 125 MLS/HR; Start 02/27/17 at 03:00 Acetaminophen 100 ml @ 50 mls/hr Q6H PRN IVPB fever; Start 02/28/17 at 07:30 Magnesium Sulfate/ Dextrose (Magnesium Sulfate 1 Gm/D5W) 100 ml @ 100 mls/hr ONCE ONCE IVPB ; Start 02/28/17 at 10:30; Stop 5/14/17 at 11:29; Status UNV RAHI,SUSAN S. February 28, 2017 10:22
--- NOTE | 2017-02-28 10:25 | PN ---
DATE: 02/28/2017 SUBJECTIVE: The patient is alert, rightward gaze. PHYSICAL EXAMINATION VITAL SIGNS: Temperature 99.1, pulse 90, blood pressure 122/81, oxygen saturation 98%. LABORATORY RESULTS: White count 12.8, hemoglobin 8.0, hematocrit 25.7, platelet count 486. Sodium 142, potassium 3.6, BUN 18, creatinine 0.6. CURRENT MEDICATIONS: 1. Vancomycin. 2. Fluconazole. 3. Meropenem. 4. Colace. 5. Fentanyl. 6. Morphine. 7. Tigan. 8. Ativan. ASSESSMENT: Perforated colon, status post surgery, sepsis, decompensated heart failure, now extubat ed. Would continue management as per surgical and infectious disease recommendations. Dictated By: ROGELIO CASIANO/YAN Conf#: [id number] DID#: [id number]
[2017-02-28] MEDS ORDERED: MAGNESIUM SULFATE 1 GM/D5W 100 ML IVPB ONE (10:30)
[2017-02-28 10:54] LABS: AADO2 Arterial 122.9 mmHg (7.0-24.0); Allen Test ACCEPTAB; Arterial Base Excess 4.4 mmol/L (-3.0-3); Arterial COHb 0.4 % (0.0-3.0); Arterial Fraction of Oxyhgb 84.4 % (93.0-99.0); Arterial HCO3 27.8 mmol/L (22.0-26.0); Arterial MetHb 0.3 % (0.0-1.5); Arterial Total Hemglobin 8.6 g/dl (12.0-18.0); MODE NASAL CANNULA
--- NOTE | 2017-02-28 12:07 | RADRPT ---
PROCEDURE: CT abdomen and pelvis with contrast. CLINICAL INDICATION: abdominal pain TECHNIQUE: CT scan of the abdomen and pelvis with contrast [facility] The patient was scanned after administration of 100 cc of Isovue 300 intravenous contrast. O ral contrast was also administered. Sagittal and coronal reformatted images were obtained from the axial source images. One or more of the following dose reduction techniques were used: - Automated exposure control. - Adjustment of the mA and/or kV according to patient size. - Use of iterative reconstruction technique. DLP 1640.96 mGycm. CTDIvol 12.6 and 12.4 mGy COMPARISON: 02/14/2017 FINDINGS: There is a small to moderate layering right-sided pleural effusion. There is a loculated small to m oderate left-sided pleural effusion with pleural thickening and tenting of the lung parenchyma towar ds the pleural margin. There is associated atelectasis of portions of the bilateral lower lobes. P eribronchial ground-glass is seen in the lower lungs with subpleural scarring. The heart is mildly enlarged.. Coronary artery calcifications are seen in the heart. There are multiple enhancing fluid collection seen within the abdomen and pelvis including several s ubserosal perihepatic fluid collections and the largest of these is at the dome measuring up to 7.9 x 2.7 cm which appears new from prior exam. Several other smaller collections are seen extending in feriorly along the right pericolic gutter. There is a crescentic fluid structure is seen along the left lower quadrant at the perineal margin measuring 7.5 x 1.6 cm with enhancing wall. There previo usly then a pigtail catheter placed. There is diffuse anasarca of the soft tissues of the abdomen and pelvis. There is hepatomegaly seen with diminished appearance of fatty infiltration liver since prior studie s. There is no evidence of a parenchymal hepatic lesion however there is a scalloped appearance of the pancreatic margin secondary to the serosal fluid collections. The gallbladder is partially cont racted with several layering gallstones with mild gallbladder wall thickening that is indeterminate significance. The portal vein is intact without thrombus. There is mild splenomegaly. The adrenal glands are unremarkable. The kidneys enhance symmetrically without hydronephrosis and the pancreas is within normal limits without focal lesion or surrounding inflammatory changes. There is an area of loculated fluid seen on the greater curvature of the stomach with prominent diff use mesenteric fat stranding and there is a small amount of free fluid within the peritoneal cavity. There is a left lower quadrant colostomy. There is generalized wall thickening of the small and l arge bowel without obstruction and there is no intraperitoneal free air. Zeng catheter of rectal tumor present. The prostate is at the upper limits of normal in size. Aor tic atherosclerosis is seen. There are degenerative changes of the lumbar spine without fracture or dislocation. RPTAT: AA IMPRESSION: There are several enhancing fluid collections seen with multiple collections around the hepatic tamie in and the largest of these at the dome which is new from prior study along with other fluid collect ion seen extending along the right pericolic gutter inferiorly. These are worrisome for multiple abd ominal abscesses. There is a crescentic left lower quadrant enhancing fluid collection which has diminished in size fr om prior exam and is consistent with residual abscess after prior drainage. There is a loculated left-sided mild to moderate pleural effusion and a layering right-sided mild to moderate sized pleural effusion. Cardiomegaly and diffuse anasarca is present. There is loculated fluid seen without an enhancing wall along the greater curvature of the stomach. There is diffuse wall thickening of the small and large bowel which could represent third spacing of fluid. Left lower quadrant colostomy is seen without obstruction. Gallbladder wall thickening is seen with cholelithiasis. This could represent third spacing of flui d into the gallbladder wall. Peribronchial ground-glass in the lower lungs could represent edema or atypical inflammation/infecti on. RPTAT: AA .Ifeoma Ty MD, Date Time Electronically viewed and signed by .Ifeoma Ty MD, MD on 02/28/2017 12:06 .Misty/
--- NOTE | 2017-02-28 12:31 | CONS ---
Date/Time of Note Date/Time of Note DATE: 02/28/17 TIME: 12:25 Consult Date/Type/Reason Admit Date/Time Feb 01, 2017 at 03:10 Initial Consult Date 02/02/17 Type of Consultation: Pulm Ordering Provider: VINCE PADGETT Subjective Tolerated extubation. However, a bit more confused after receiving ativan overnight. CT abdomen/pelvis reviewed. Objective Vital Signs Date Time Temp Pulse Resp B/P Pulse Ox O2 Delivery O2 Flow Rate FiO2 02/28/17 12:00 98.2 97 17 123/83 94 Nasal Cannula 4.0 02/28/17 02:39 33 Intake and Output 02/27/17 02/27/17 02/28/17 15:00 23:00 07:00 Intake Total 995.0 ml 450 ml 350 ml Output Total 540 ml 710 ml 800 ml Balance 455.0 ml -260 ml -450 ml Exam HEENT: Neck supple; no JVD; no LAD CVS: RRR, S1 and S2 CHEST: Clear anteriorly ABD: Soft, NT, + BS; wound clear EXT: No c/c/e Results/Medications Result Diagram: 02/28/17 0500 02/28/17 0500 Results 24 hrs Laboratory Tests Test 02/27/17 13:25 02/27/17 18:00 02/28/17 00:42 02/28/17 02:21 Lactic Acid Level 1.4 0.8 0.9 Vancomycin Level Trough 15.9 Test 02/28/17 05:00 02/28/17 10:00 White Blood Count 12.8 #H Red Blood Count 2.82 L Hemoglobin 8.0 L Hematocrit 25.7 L Mean Corpuscular Volume 91.1 Mean Corpuscular Hemoglobin 28.4 L Mean Corpuscular Hemoglobin Concent 31.1 L Red Cell Distribution Width 14.3 Platelet Count 486 H Mean Platelet Volume 10.7 H Neutrophils % 84.9 H Lymphocytes % 4.6 L Monocytes % 5.8 Eosinophils % 3.3 Basophils % 0.7 Nucleated Red Blood Cells % 0.0 Neutrophils # 10.9 H Lymphocytes # 0.6 L Monocytes # 0.7 Eosinophils # 0.4 Basophils # 0.1 Nucleated Red Blood Cells # 0.0 Sodium Level 142 Potassium Level 3.6 Chloride Level 101 Carbon Dioxide Level 31 Anion Gap 14 Blood Urea Nitrogen 18 Creatinine 0.69 Glucose Level 88 Lactic Acid Level 0.9 Calcium Level 7.7 L Magnesium Level 1.6 L Blood Gas Specimen Source Blood arterial Arterial Blood Date Drawn 02/28/2017 10:37:57 AM Arterial Blood pH (Temp corrected) 7.504 H Arterial Blood pCO2 (Temp correct) 36.1 Arterial Blood pO2 (Temp corrected) 48.6 *L Arterial Blood HCO3 27.8 H Arterial Blood Base Excess 4.4 H Arterial Blood Oxygen Saturation 85.0 L Raffy Test ACCEPTAB Arterial Blood Gas Puncture Site Right Radial Arterial Blood Carboxyhemoglobin 0.4 Arterial Blood Methemoglobin 0.3 Blood Gas A-a O2 Differential 122.9 H Oxyhemoglobin Percent 84.4 L Total Hemoglobin 8.6 L Blood Gas Temperature 37.0 Blood Gas Actual Respiration Rate 20 Blood Gas Modality NASAL CANNULA FiO2 30.0 Blood Gas Critical Value Read Back RN. Leti CORTES Blood Gas Notified Whom WAI DÍAZ Blood Gas Notified Time 02/28/2017 10:54:14 AM Medications Current Medications Pantoprazole (Protonix Iv) 40 mg DAILY@06 IV Last administered on 02/28/17 05: 57; Admin Dose 40 MG; Start 02/01/17 at 06:00 Acetaminophen/ Hydrocodone Bitart ([place] (5/325)) 1 tab Q4H PRN PO PAIN LEVEL 4 -7 Last administered on 02/09/17 18:48; Admin Dose 1 TAB; Start 02/01/17 at 20: 30 Acetaminophen/ Hydrocodone Bitart ([place] (5/325)) 2 tab Q4H PRN PO PAIN LEVEL 7 -10; Start 02/01/17 at 20:30 Bisacodyl (Dulcolax Supp) 10 mg BID PRN [place] CONSTIPATION; Start 02/01/17 at 20: 30 Sodium Biphosphate/ Sodium Phosphate (Fleet Enema) 133 ml BID PRN [place] CONSTIPATION; Start 02/01/17 at 20:30 Acetaminophen (Tylenol Liquid) 650 mg Q4H PRN GTB PAIN AND OR ELEVATED TEMP Last administered on 02/27/17 12:37; Admin Dose 650 MG; Start 02/05/17 at 18:30 Salmeterol Xinafoate/ Fluticasone (Advair 250/50 Diskus) 1 inh BID INH Last administered on 02/12/17 09:03; Admin Dose 1 INH; Start 02/07/17 at 11:00; Status Future Hold IV Flush (NS 10 ml) 10 ml PRN PRN IV IV PROTOCOL; Start 02/07/17 at 14:30 Diphenhydramine HCl 25 mg 25 mg Q6H PRN IV itching ; Start 02/07/17 at 20:00 Ondansetron HCl/ Sodium Chloride (Zofran Inj/NS) 54 ml @ 216 mls/hr Q6H PRN IV NAUSEA AND/OR VOMITING; Start 02/09/17 at 11:30 Prednisone (Prednisone) 40 mg DAILY PO Last administered on 02/12/17 09:03; Admin Dose 40 MG; Start 02/11/17 at 09:00; Status Future Hold Lorazepam (Ativan) 1 mg Q2 PRN IV AGITATION/ANXIETY Last administered on 03:35; Admin Dose 1 MG; Start 02/10/17 at 17:00 Lorazepam (Ativan) 1 mg Q1HWA PRN IM AGITATION/ANXIETY; Start 02/10/17 at 19:00 Trimethobenzamide HCl 200 mg 200 mg Q6H PRN IM NAUSEA AND/OR VOMITING; Start at 19:30 Norepinephrine/ Dextrose (Levophed/D5W) 500 ml @ 1.87 mls/hr TITRATE IV ; Start 02/13/17 at 12:00; Status Future hold Morphine Sulfate (morphine) 2 mg Q4H PRN IV pain Last administered on 12:41; Admin Dose 2 MG; Start 02/20/17 at 18:30 Docusate Sodium 100 mg 100 mg QHS PRN NGT For Constipation; Start 02/25/17 at 21:00 Fentanyl 100 ml @ 2.5 mls/hr TITRATE IV Last administered on 02/26/17 13:45; Admin Dose 2.5 MLS/HR; Start 02/25/17 at 10:00 Midazolam HCl 50 ml @ 1 mls/hr TITRATE IV Last administered on 02/25/17 18:11 ; Admin Dose 3 MLS/HR; Start 02/25/17 at 10:00 Meropenem 100 ml @ 200 mls/hr Q8 IVPB Last administered on 02/28/17 05:58; Admin Dose 200 MLS/HR; Start 02/26/17 at 14:00 Fluconazole 100 ml @ 100 mls/hr Q24H IVPB Last administered on 02/27/17 17:33 ; Admin Dose 100 MLS/HR; Start 02/26/17 at 17:00 Vancomycin HCl 250 ml @ 125 mls/hr Q12H IVPB Last administered on 02/28/17 03 :49; Admin Dose 125 MLS/HR; Start 02/27/17 at 03:00 Acetaminophen (Ofirmev 1000mg/ 100ml Iv) 100 ml @ 50 mls/hr Q6H PRN IVPB fever ; Start 02/28/17 at 07:30 Assessment/Plan Additional Assessment/Plan IMP: 1. Recurrent respiratory failure with mucus plugging and complete left lung ATX. Concern for neuromuscular weakness, though examination and Vital Capacity not consistent. Concern for bulbar issue resulting in recurrent failure 2. Crohn's Disease s/p perf 3. Intra-abdominal abscesses 4. Pleural effusions, with minimal loculation 5. Anemia RECS: 1. D/C ativan 2. Haldol prn agitation 3. Will discuss possible CT-guided percutaneous drainage of inta-abdominal abscesses with IR 4. Continue broad-spectrum antibiotic coverage 5. Swallow eval 6. DVT GI prophylaxis 35 min cc time JAYA POPE MD February 28, 2017 12:30
--- NOTE | 2017-02-28 14:36 | CONS ---
Date/Time of Note Date/Time of Note DATE: 02/28/17 TIME: 14:33 Assessment/Plan Assessment/Plan Chief Complaint/Hosp Course SUBJECTIVE: S/p extubated, awake, looks comfortable. MICROBIOLOGY: Pleural fluid cultures remain negative. Bronchoalveolar lavage cultures preliminary negative. INDWELLINGS: Zeng catheter, PICC line. ANTIMICROBIALS: 1. Vancomycin. 2. Meropenem. 3. Fluconazole. PHYSICAL EXAMINATION: GENERAL: This is an ill-appearing, middle-aged white man who is awake, in no distress. HEENT: Head atraumatic, normocephalic. Sclerae anicteric. Buccal mucosa dry. NECK: Supple, trachea midline. CHEST: Rise symmetrical. Breath sounds with scattered rhonchi. HEART: S1, S2. ABDOMEN: Soft. Bowel tones present. EXTREMITIES: With bilateral dependent edema lower extremities. ASSESSMENT: 1. Ongoing fevers 2 to multiple intraabdominal abscesses. 2. Recurrent respiratory failure, status post reintubated, extubated yesterday. 3. Pneumonia. 4. History of Crohn's disease, status post perforated viscus repair. 5. Acute on chronic anemia. PLAN: The patient remains hemodynamically stable, covered with abx, will dw surgery further plan of care in regards to CT abdomen findings. Continue NPO/ aspiration precautions DW staff Problems: Consultation Date/Type/Reason Admit Date/Time Feb 01, 2017 at 03:10 Initial Consult Date 02/02/17 Type of Consultation: ID Referring Provider: VINCE PADGETT Exam/Review of Systems Vital Signs Vitals Vital Signs Date Time Temp Pulse Resp B/P Pulse Ox O2 Delivery O2 Flow Rate FiO2 02/28/17 12:30 95 10 143/91 02/28/17 12:00 98.2 94 Nasal Cannula 4.0 02/28/17 02:39 33 Intake and Output 02/27/17 02/27/17 02/28/17 15:00 23:00 07:00 Intake Total 995.0 ml 450 ml 350 ml Output Total 540 ml 710 ml 800 ml Balance 455.0 ml -260 ml -450 ml Results Result Diagram: 02/28/17 0500 02/28/17 0500 Results 24 hrs Laboratory Tests Test 02/27/17 18:00 02/28/17 00:42 02/28/17 02:21 02/28/17 05:00 Lactic Acid Level 0.8 0.9 0.9 Vancomycin Level Trough 15.9 White Blood Count 12.8 #H Red Blood Count 2.82 L Hemoglobin 8.0 L Hematocrit 25.7 L Mean Corpuscular Volume 91.1 Mean Corpuscular Hemoglobin 28.4 L Mean Corpuscular Hemoglobin Concent 31.1 L Red Cell Distribution Width 14.3 Platelet Count 486 H Mean Platelet Volume 10.7 H Neutrophils % 84.9 H Lymphocytes % 4.6 L Monocytes % 5.8 Eosinophils % 3.3 Basophils % 0.7 Nucleated Red Blood Cells % 0.0 Neutrophils # 10.9 H Lymphocytes # 0.6 L Monocytes # 0.7 Eosinophils # 0.4 Basophils # 0.1 Nucleated Red Blood Cells # 0.0 Sodium Level 142 Potassium Level 3.6 Chloride Level 101 Carbon Dioxide Level 31 Anion Gap 14 Blood Urea Nitrogen 18 Creatinine 0.69 Glucose Level 88 Calcium Level 7.7 L Magnesium Level 1.6 L Test 02/28/17 10:00 02/28/17 12:28 Blood Gas Specimen Source Blood arterial Arterial Blood Date Drawn 02/28/2017 10:37:57 AM Arterial Blood pH (Temp corrected) 7.504 H Arterial Blood pCO2 (Temp correct) 36.1 Arterial Blood pO2 (Temp corrected) 48.6 *L Arterial Blood HCO3 27.8 H Arterial Blood Base Excess 4.4 H Arterial Blood Oxygen Saturation 85.0 L Raffy Test ACCEPTAB Arterial Blood Gas Puncture Site Right Radial Arterial Blood Carboxyhemoglobin 0.4 Arterial Blood Methemoglobin 0.3 Blood Gas A-a O2 Differential 122.9 H Oxyhemoglobin Percent 84.4 L Total Hemoglobin 8.6 L Blood Gas Temperature 37.0 Blood Gas Actual Respiration Rate 20 Blood Gas Modality NASAL CANNULA FiO2 30.0 Blood Gas Critical Value Read Back RN. Leti CORTES Blood Gas Notified Whom WAI DÍAZ Blood Gas Notified Time 02/28/2017 10:54:14 AM Lactic Acid Level 0.9 Medications Medications Current Medications Pantoprazole (Protonix Iv) 40 mg DAILY@06 IV Last administered on 02/28/17 05: 57; Admin Dose 40 MG; Start 02/01/17 at 06:00 Acetaminophen/ Hydrocodone Bitart ([place] (5/325)) 1 tab Q4H PRN PO PAIN LEVEL 4 -7 Last administered on 02/09/17 18:48; Admin Dose 1 TAB; Start 02/01/17 at 20: 30 Acetaminophen/ Hydrocodone Bitart ([place] (5/325)) 2 tab Q4H PRN PO PAIN LEVEL 7 -10; Start 02/01/17 at 20:30 Bisacodyl (Dulcolax Supp) 10 mg BID PRN [place] CONSTIPATION; Start 02/01/17 at 20: 30 Sodium Biphosphate/ Sodium Phosphate (Fleet Enema) 133 ml BID PRN [place] CONSTIPATION; Start 02/01/17 at 20:30 Acetaminophen (Tylenol Liquid) 650 mg Q4H PRN GTB PAIN AND OR ELEVATED TEMP Last administered on 02/27/17 12:37; Admin Dose 650 MG; Start 02/05/17 at 18:30 Salmeterol Xinafoate/ Fluticasone (Advair 250/50 Diskus) 1 inh BID INH Last administered on 02/12/17 09:03; Admin Dose 1 INH; Start 02/07/17 at 11:00; Status Future Hold IV Flush (NS 10 ml) 10 ml PRN PRN IV IV PROTOCOL; Start 02/07/17 at 14:30 Diphenhydramine HCl 25 mg 25 mg Q6H PRN IV itching ; Start 02/07/17 at 20:00 Ondansetron HCl/ Sodium Chloride (Zofran Inj/NS) 54 ml @ 216 mls/hr Q6H PRN IV NAUSEA AND/OR VOMITING; Start 02/09/17 at 11:30 Prednisone (Prednisone) 40 mg DAILY PO Last administered on 02/12/17 09:03; Admin Dose 40 MG; Start 02/11/17 at 09:00; Status Future Hold Lorazepam (Ativan) 1 mg Q1HWA PRN IM AGITATION/ANXIETY; Start 02/10/17 at 19:00 Trimethobenzamide HCl 200 mg 200 mg Q6H PRN IM NAUSEA AND/OR VOMITING; Start at 19:30 Norepinephrine/ Dextrose (Levophed/D5W) 500 ml @ 1.87 mls/hr TITRATE IV ; Start 02/13/17 at 12:00; Status Future hold Morphine Sulfate (morphine) 2 mg Q4H PRN IV pain Last administered on 12:41; Admin Dose 2 MG; Start 02/20/17 at 18:30 Docusate Sodium 100 mg 100 mg QHS PRN NGT For Constipation; Start 02/25/17 at 21:00 Fentanyl 100 ml @ 2.5 mls/hr TITRATE IV Last administered on 02/26/17 13:45; Admin Dose 2.5 MLS/HR; Start 02/25/17 at 10:00 Midazolam HCl 50 ml @ 1 mls/hr TITRATE IV Last administered on 02/25/17 18:11 ; Admin Dose 3 MLS/HR; Start 02/25/17 at 10:00 Meropenem 100 ml @ 200 mls/hr Q8 IVPB Last administered on 02/28/17 14:32; Admin Dose 200 MLS/HR; Start 02/26/17 at 14:00 Fluconazole 100 ml @ 100 mls/hr Q24H IVPB Last administered on 02/27/17 17:33 ; Admin Dose 100 MLS/HR; Start 02/26/17 at 17:00 Vancomycin HCl 250 ml @ 125 mls/hr Q12H IVPB Last administered on 02/28/17 03 :49; Admin Dose 125 MLS/HR; Start 02/27/17 at 03:00 Acetaminophen (Ofirmev 1000mg/ 100ml Iv) 100 ml @ 50 mls/hr Q6H PRN IVPB fever ; Start 02/28/17 at 07:30 Haloperidol (Haldol) 5 mg Q6H PRN IV AGITATION/ANXIETY; Start 02/28/17 at 13:00 THOMAS ELLIS NP February 28, 2017 14:36
[2017-02-28] MEDS: FLUCONAZOLE 200 MG/NS (PMX) 100 ML IVPB SCH (17:29)
[2017-03-01] VITALS (46 sets, daily range): BP systolic 99–134; BP diastolic 69–93; PULSE 82–107; RESP 17–42
[2017-03-01] MEDS: ALBUTEROL/IPRATROPIUM (NEB) 3 ML AMP HHN SCH ×4 (02:10→19:49)
[2017-03-01] MEDS: ACETYLCYSTEINE 20% 4 ML VIAL NEB SCH ×4 (02:11→19:49)
--- NOTE | 2017-03-01 02:30 | RADRPT ---
PROCEDURE: XR Chest. CLINICAL INDICATION: Ventilated patient. TECHNIQUE: Single frontal view of the chest. COMPARISON: 02/27/2017. FINDINGS: Right central venous line in place with tip in superior vena cava. Endotracheal intubation has been removed over interval. Nasogastric tube has been removed over interval. Bilateral pleural effusio ns are mild and bilateral patchy air space disease at mid lung zone lung bases compatible with mild to moderate failure. Failure is increased over interval since 02/27/2017. No signs of pneumothorax are seen. The osseous structures and soft tissues are unremarkable. IMPRESSION: Mild to moderate failure with bilateral pleural effusions, increased over interval since 02/27/2017. RPTAT: [facility] Physician [place] Date Time Electronically viewed and signed by Physician [place] on 03/01/2017 02:30 RS/
[2017-03-01] MEDS: VANCOMYCIN 1 GM in NS 250 ML IVPB SCH ×2 (04:59→15:13)
[2017-03-01] MEDS: PANTOPRAZOLE 40 MG INJ IV SCH (05:09)
[2017-03-01] MEDS: MEROPENEM 1 GM/100 ML (PMX) 100 ML IVPB SCH ×3 (05:09→22:02)
[2017-03-01 06:01] LABS: ADD SCAN DIFF NO
[2017-03-01 06:02] LABS: BASOPHIL # 0.1 10^3/ul (0.0-0.1); BASOPHILS % 0.6 % (0.0-2.0); EOSINOPHILS # 0.4 10^3/ul (0.0-0.5); EOSINOPHILS % 3.5 % (0.0-7.0); HEMATOCRIT 25.6 % (42.0-52.0); HEMOGLOBIN 7.9 g/dl (14.0-18.0); LYMPHOCYTES # 0.6 10^3/ul (0.8-2.9); LYMPHOCYTES % 5.5 % (15.0-51.0); MEAN CORPUSCULAR HEMOGLOBIN 28.3 pg (29.0-33.0); MEAN CORPUSCULAR HGB CONC 30.9 g/dl (32.0-37.0); MEAN CORPUSCULAR VOLUME 91.8 fl (82.0-101.0); MEAN PLATELET VOLUME 10.6 fl (7.4-10.4); MONOCYTE # 0.9 10^3/ul (0.3-0.9); NEUTROPHIL # 9.1 10^3/ul (1.6-7.5); NEUTROPHILS % 81.4 % (39.0-77.0); PLATELET COUNT 496 10^3/UL (140-415); RED BLOOD COUNT 2.79 10^6/ul (4.70-6.10); RED CELL DISTRIBUTION WIDTH 14.3 % (11.5-14.5); WHITE BLOOD COUNT 11.2 10^3/ul (4.8-10.8)
[2017-03-01 07:13] LABS: CALCIUM 7.9 mg/dl (8.4-10.2); CREATININE 0.62 mg/dl (0.61-1.24); POTASSIUM 3.6 mmol/L (3.5-5.1)
--- NOTE | 2017-03-01 08:11 | RADRPT ---
PROCEDURE: XR Chest. CLINICAL INDICATION: Shortness of breath. TECHNIQUE: Single frontal view. COMPARISON: 02/28/2017. FINDINGS: There is bilateral pulmonary air space disease in the mid and lower lung zones consistent with pulmo nary edema. The lungs are otherwise clear. The heart size is normal. There are small bilateral pleural effusions. There is no pneumothorax. IMPRESSION: 1. No change from 02/28/2017. RPTAT: QQ .Rogelio Vera MD, MD Date Time Electronically viewed and signed by .Rogelio Vera MD, MD on 03/01/2017 08:11 .R/
--- NOTE | 2017-03-01 08:54 | PN ---
Date/Time of Note Date/Time of Note DATE: 03/01/17 TIME: 08:38 Assessment/Plan VTE Prophylaxis VTE Prophylaxis Intervention: SCD's Lines/Catheters IV Catheter Type (from [facility]): Sal[facility] Lock Urinary Cath still in place: Yes Reason Cath still needed: other (indicate) Assessment/Plan Assessment/Plan 1. Perforated sigmoid colon 2/2 Severe Crohn's colitis * S/p Urgent Open Cronin's procedure with end colostomy, liver biopsy and abdominal lavage 02/01/17P * S/p post operative paracolic abscess drained via CT 02/14/[address] * S/p Exploration of abdomen through recent laparotomy site with closure of fascia done 02/15/17 for Fascia dehiscence 2. Recurrent Resp failure: Extubated then reintubated 02/13, extubated, then reintubated 02/25/17, then extubated 02/27 * Status post bronchoscopy with clearance of extensive secretions in the left mainstem bronchus with improved aeration radiographically 02/25 * Pulm concerned about possible neuromuscular injury contributing to recurrent resp failure 3. Exacerbation of Crohn's disease with acute colitis and diarrhea Cultures earlier were growing ecoli / proteus / enterococcus - for CT A/P to further assess today - f/u results 4. Multifocal PNA + Mook Pleural effusions - Effusions likely hydrostatic from hypoalbuminemia. + fevers - monitor, ID managing abx and antifungal 5. Severe Sepsis with lactic acidosis 2/2 severe colitis / PNA - now with fevers again, oneal cx, back on abx. - CT A/P showing new multiple abscesses, planned for possible interventional radiology drainage today. 6. S/p Systemic shock (hypovolemic +septic) - again, see # 5, abx. 7. TPN therapy for low prealbumin + tube feeds - Gentle diuresis with daily albumin 8. Hx of heavy alcohol and tobacco use just until admission - monitor 9. Probable underlying COPD and Cirrhosis based on hx which explains hypoalbuminemia and anasarca - monitor 10. Severe recurrent anemia likely 2/2 occult blood loss from multiple sources : PRN transfusions 11. Hypomagnesemia - replete as needed * SCD's for DVT ppx CRITICAL CARE TIME: >35 mins Subjective 24 Hr Interval Summary Free Text/Dictation * Nursing reports a wet cough, and continued fever. Exam/Review of Systems Vital Signs Vitals Vital Signs Date Time Temp Pulse Resp B/P Pulse Ox O2 Delivery O2 Flow Rate FiO2 03/01/17 08:08 4.0 36 03/01/17 08:05 93 27 98 03/01/17 06:30 119/79 03/01/17 04:30 98.6 03/01/17 00:29 Nasal Cannula Intake and Output 02/28/17 02/28/17 03/01/17 15:00 23:00 07:00 Intake Total 50 ml 690 ml 105 ml Output Total 650 ml 665 ml 631 ml Balance -600 ml 25 ml -526 ml Exam Constitutional: extubated, awake, confused Head: normocephalic Eyes: PERRL, icteric ENMT: other (NGT) Respiratory: some diminished breath sounds, No wheezing Cardiovascular: regular rate and rhythm, No murmurs/extra sounds Gastrointestinal: other (midline surgical dressing with wound vac / L sided colostomy and drain / colostomy has dark green fluidy stool), soft otherwise Genitourinary - Male: other (significant scrotal and penile edema) Musculoskeletal: swelling (generalized severe anasarca) Extremities: some + pitting pedal edema Neurological: Lethargic Results Result Diagram: 03/01/17 0535 03/01/17 0535 Results 24 hrs Laboratory Tests Test 02/28/17 10:00 02/28/17 12:28 02/28/17 17:40 02/28/17 21:27 Blood Gas Specimen Source Blood arterial Arterial Blood Date Drawn 02/28/2017 10:37:57 AM Arterial Blood pH (Temp corrected) 7.504 H Arterial Blood pCO2 (Temp correct) 36.1 Arterial Blood pO2 (Temp corrected) 48.6 *L Arterial Blood HCO3 27.8 H Arterial Blood Base Excess 4.4 H Arterial Blood Oxygen Saturation 85.0 L Raffy Test ACCEPTAB Arterial Blood Gas Puncture Site Right Radial Arterial Blood Carboxyhemoglobin 0.4 Arterial Blood Methemoglobin 0.3 Blood Gas A-a O2 Differential 122.9 H Oxyhemoglobin Percent 84.4 L Total Hemoglobin 8.6 L Blood Gas Temperature 37.0 Blood Gas Actual Respiration Rate 20 Blood Gas Modality NASAL CANNULA FiO2 30.0 Blood Gas Critical Value Read Back RN. Leti CORTES Blood Gas Notified Whom WAI DÍAZ Blood Gas Notified Time 02/28/2017 10:54:14 AM Lactic Acid Level 0.9 0.8 Bedside Glucose 75 Test 03/01/17 02:06 03/01/17 04:58 03/01/17 05:35 Bedside Glucose 87 Lab Scanned Report BLOOD TRANSFUSION White Blood Count 11.2 H Red Blood Count 2.79 L Hemoglobin 7.9 L Hematocrit 25.6 L Mean Corpuscular Volume 91.8 Mean Corpuscular Hemoglobin 28.3 L Mean Corpuscular Hemoglobin Concent 30.9 L Red Cell Distribution Width 14.3 Platelet Count 496 H Mean Platelet Volume 10.6 H Neutrophils % 81.4 H Lymphocytes % 5.5 L Monocytes % 8.0 Eosinophils % 3.5 Basophils % 0.6 Nucleated Red Blood Cells % 0.0 Neutrophils # 9.1 H Lymphocytes # 0.6 L Monocytes # 0.9 Eosinophils # 0.4 Basophils # 0.1 Nucleated Red Blood Cells # 0.0 Sodium Level 141 Potassium Level 3.6 Chloride Level 106 Carbon Dioxide Level 26 Anion Gap 13 Blood Urea Nitrogen 14 Creatinine 0.62 Glucose Level 84 Calcium Level 7.9 L Medications Medications Current Medications Pantoprazole (Protonix Iv) 40 mg DAILY@06 IV Last administered on 03/01/17 05: 09; Admin Dose 40 MG; Start 02/01/17 at 06:00 Acetaminophen/ Hydrocodone Bitart ([place] (5/325)) 1 tab Q4H PRN PO PAIN LEVEL 4 -7 Last administered on 02/09/17 18:48; Admin Dose 1 TAB; Start 02/01/17 at 20: 30 Acetaminophen/ Hydrocodone Bitart ([place] (5/325)) 2 tab Q4H PRN PO PAIN LEVEL 7 -10; Start 02/01/17 at 20:30 Bisacodyl (Dulcolax Supp) 10 mg BID PRN [place] CONSTIPATION; Start 02/01/17 at 20: 30 Sodium Biphosphate/ Sodium Phosphate (Fleet Enema) 133 ml BID PRN [place] CONSTIPATION; Start 02/01/17 at 20:30 Acetaminophen (Tylenol Liquid) 650 mg Q4H PRN GTB PAIN AND OR ELEVATED TEMP Last administered on 02/27/17 12:37; Admin Dose 650 MG; Start 02/05/17 at 18:30 Salmeterol Xinafoate/ Fluticasone (Advair 250/50 Diskus) 1 inh BID INH Last administered on 02/12/17 09:03; Admin Dose 1 INH; Start 02/07/17 at 11:00; Status Future Hold IV Flush (NS 10 ml) 10 ml PRN PRN IV IV PROTOCOL; Start 02/07/17 at 14:30 Diphenhydramine HCl 25 mg 25 mg Q6H PRN IV itching ; Start 02/07/17 at 20:00 Ondansetron HCl/ Sodium Chloride (Zofran Inj/NS) 54 ml @ 216 mls/hr Q6H PRN IV NAUSEA AND/OR VOMITING; Start 02/09/17 at 11:30 Prednisone (Prednisone) 40 mg DAILY PO Last administered on 02/12/17 09:03; Admin Dose 40 MG; Start 02/11/17 at 09:00; Status Future Hold Lorazepam (Ativan) 1 mg Q1HWA PRN IM AGITATION/ANXIETY; Start 02/10/17 at 19:00 Trimethobenzamide HCl 200 mg 200 mg Q6H PRN IM NAUSEA AND/OR VOMITING; Start at 19:30 Norepinephrine/ Dextrose (Levophed/D5W) 500 ml @ 1.87 mls/hr TITRATE IV ; Start 02/13/17 at 12:00; Status Future hold Morphine Sulfate (morphine) 2 mg Q4H PRN IV pain Last administered on 12:41; Admin Dose 2 MG; Start 02/20/17 at 18:30 Docusate Sodium 100 mg 100 mg QHS PRN NGT For Constipation; Start 02/25/17 at 21:00 Fentanyl 100 ml @ 2.5 mls/hr TITRATE IV Last administered on 02/26/17 13:45; Admin Dose 2.5 MLS/HR; Start 02/25/17 at 10:00 Midazolam HCl 50 ml @ 1 mls/hr TITRATE IV Last administered on 02/25/17 18:11 ; Admin Dose 3 MLS/HR; Start 02/25/17 at 10:00 Meropenem 100 ml @ 200 mls/hr Q8 IVPB Last administered on 03/01/17 05:09; Admin Dose 200 MLS/HR; Start 02/26/17 at 14:00 Fluconazole 100 ml @ 100 mls/hr Q24H IVPB Last administered on 02/28/17 17:29 ; Admin Dose 100 MLS/HR; Start 02/26/17 at 17:00 Vancomycin HCl 250 ml @ 125 mls/hr Q12H IVPB Last administered on 03/01/17 04 :59; Admin Dose 125 MLS/HR; Start 02/27/17 at 03:00 Acetaminophen (Ofirmev 1000mg/ 100ml Iv) 100 ml @ 50 mls/hr Q6H PRN IVPB fever ; Start 02/28/17 at 07:30 Haloperidol (Haldol) 5 mg Q6H PRN IV AGITATION/ANXIETY; Start 02/28/17 at 13:00 Procedures Procedures IMPRESSION: There are several enhancing fluid collections seen with multiple collections around the hepatic margin and the largest of these at the dome which is new from prior study along with other fluid collection seen extending along the right pericolic gutter inferiorly. These are worrisome for multiple abdominal abscesses. There is a crescentic left lower quadrant enhancing fluid collection which has diminished in size from prior exam and is consistent with residual abscess after prior drainage. There is a loculated left-sided mild to moderate pleural effusion and a layering right-sided mild to moderate sized pleural effusion. Cardiomegaly and diffuse anasarca is present. There is loculated fluid seen without an enhancing wall along the greater curvature of the stomach. There is diffuse wall thickening of the small and large bowel which could represent third spacing of fluid. Left lower quadrant colostomy is seen without obstruction. Gallbladder wall thickening is seen with cholelithiasis. This could represent third spacing of fluid into the gallbladder wall. Peribronchial ground-glass in the lower lungs could represent edema or atypical inflammation/infection. RPTAT: AA .Ifeoma Ty MD, MD Date Time Electronically viewed and signed by .Ifeoma Ty MD, on 02/28/2017 12:06 VINCE PADGETT March 01, 2017 08:48
[2017-03-01] MEDS: ACETAMINOPHEN 1000MG/100ML IV 100 ML IVPB PRN (08:55)
--- NOTE | 2017-03-01 09:48 | CONS ---
Date/Time of Note Date/Time of Note DATE: 03/01/17 TIME: 09:45 Assessment/Plan Assessment/Plan Additional Assessment/Plan Chest x-ray was reviewed from today which is showing scant left lower lobe infiltrate. Assessment recommendations; 1. Patient initially admitted for perforated diverticulum and required laparoscopic sigmoid resection with colostomy. 2. Status post respiratory failure 2, now successfully extubated with significant overall clinical improvement. 3. Recent complete left lung atelectasis due to mucous plugging status post bronchoscopy. 4. Anemia. 5. Pneumonia. Continue current treatment. Patient responding well to current treatment regimen. Consultation Date/Type/Reason Admit Date/Time Feb 01, 2017 at 03:10 Initial Consult Date 02/02/17 Type of Consultation: Pulmonary/critical care Referring Provider: VINCE PADGETT 24 HR Interval Summary Free Text/Dictation Patient condition is stable. Remains awake alert. Denies any shortness of breath, chest pain. Any abdominal pain, nausea vomiting. General exam; young male, awake alert currently in no distress. Exam/Review of Systems Vital Signs Vitals Vital Signs Date Time Temp Pulse Resp B/P Pulse Ox O2 Delivery O2 Flow Rate FiO2 03/01/17 08:08 4.0 36 03/01/17 08:05 93 27 98 03/01/17 06:30 119/79 03/01/17 04:30 98.6 03/01/17 00:29 Nasal Cannula Intake and Output 02/28/17 02/28/17 03/01/17 15:00 23:00 07:00 Intake Total 50 ml 690 ml 105 ml Output Total 650 ml 665 ml 631 ml Balance -600 ml 25 ml -526 ml Exam HEENT examination; supple neck, no JVD. No lymphadenopathy. Midline trachea. No thyromegaly. Pharynx is clear. Patient has fair dentition. Pupils are midsize and reactive to light. Neck Chest examination; clear to auscultation. S1-S2 audible, no murmurs. Regular rhythm. Abdomen examination; soft, there is a dressing applied in the midline. Bowel sounds are audible. No organomegaly. Nontender abdomen. Extremity examination; no peripheral edema. EDGE ROLLER examination; no focal deficit but the patient does have generalized muscular weakness. Results Result Diagram: 03/01/17 0535 03/01/17 0535 Results 24 hrs Laboratory Tests Test 02/28/17 10:00 02/28/17 12:28 02/28/17 17:40 02/28/17 21:27 Blood Gas Specimen Source Blood arterial Arterial Blood Date Drawn 02/28/2017 10:37:57 AM Arterial Blood pH (Temp corrected) 7.504 H Arterial Blood pCO2 (Temp correct) 36.1 Arterial Blood pO2 (Temp corrected) 48.6 *L Arterial Blood HCO3 27.8 H Arterial Blood Base Excess 4.4 H Arterial Blood Oxygen Saturation 85.0 L Raffy Test ACCEPTAB Arterial Blood Gas Puncture Site Right Radial Arterial Blood Carboxyhemoglobin 0.4 Arterial Blood Methemoglobin 0.3 Blood Gas A-a O2 Differential 122.9 H Oxyhemoglobin Percent 84.4 L Total Hemoglobin 8.6 L Blood Gas Temperature 37.0 Blood Gas Actual Respiration Rate 20 Blood Gas Modality NASAL CANNULA FiO2 30.0 Blood Gas Critical Value Read Back RN. Leti CORTES Blood Gas Notified Whom WAI DÍAZ Blood Gas Notified Time 02/28/2017 10:54:14 AM Lactic Acid Level 0.9 0.8 Bedside Glucose 75 Test 03/01/17 02:06 03/01/17 04:58 03/01/17 05:35 Bedside Glucose 87 Lab Scanned Report BLOOD TRANSFUSION White Blood Count 11.2 H Red Blood Count 2.79 L Hemoglobin 7.9 L Hematocrit 25.6 L Mean Corpuscular Volume 91.8 Mean Corpuscular Hemoglobin 28.3 L Mean Corpuscular Hemoglobin Concent 30.9 L Red Cell Distribution Width 14.3 Platelet Count 496 H Mean Platelet Volume 10.6 H Neutrophils % 81.4 H Lymphocytes % 5.5 L Monocytes % 8.0 Eosinophils % 3.5 Basophils % 0.6 Nucleated Red Blood Cells % 0.0 Neutrophils # 9.1 H Lymphocytes # 0.6 L Monocytes # 0.9 Eosinophils # 0.4 Basophils # 0.1 Nucleated Red Blood Cells # 0.0 Sodium Level 141 Potassium Level 3.6 Chloride Level 106 Carbon Dioxide Level 26 Anion Gap 13 Blood Urea Nitrogen 14 Creatinine 0.62 Glucose Level 84 Calcium Level 7.9 L Medications Medications Current Medications Pantoprazole (Protonix Iv) 40 mg DAILY@06 IV Last administered on 03/01/17t 05: 09; Admin Dose 40 MG; Start 02/01/17 at 06:00 Acetaminophen/ Hydrocodone Bitart ([place] (5/325)) 1 tab Q4H PRN PO PAIN LEVEL 4 -7 Last administered on 02/09/17 18:48; Admin Dose 1 TAB; Start 02/01/17 at 20: 30 Acetaminophen/ Hydrocodone Bitart ([place] (5/325)) 2 tab Q4H PRN PO PAIN LEVEL 7 -10; Start 02/01/17 at 20:30 Bisacodyl (Dulcolax Supp) [address] CONSTIPATION; Start 02/01/17 at 20: 30 Sodium Biphosphate/ Sodium Phosphate (Fleet Enema) [address] CONSTIPATION; Start 02/01/17 at 20:30 Acetaminophen (Tylenol Liquid) 650 mg Q4H PRN GTB PAIN AND OR ELEVATED TEMP Last administered on 02/27/17 12:37; Admin Dose 650 MG; Start 02/05/17 at 18:30 Salmeterol Xinafoate/ Fluticasone (Advair 250/50 Diskus) 1 inh BID INH Last administered on 02/12/17 09:03; Admin Dose 1 INH; Start 02/07/17 at 11:00; Status Future Hold IV Flush (NS 10 ml) 10 ml PRN PRN IV IV PROTOCOL; Start 02/07/17 at 14:30 Diphenhydramine HCl 25 mg 25 mg Q6H PRN IV itching ; Start 02/07/17 at 20:00 Ondansetron HCl/ Sodium Chloride (Zofran Inj/NS) 54 ml @ 216 mls/hr Q6H PRN IV NAUSEA AND/OR VOMITING; Start 02/09/17 at 11:30 Prednisone (Prednisone) 40 mg DAILY PO Last administered on 02/12/17 09:03; Admin Dose 40 MG; Start 02/11/17 at 09:00; Status Future Hold Lorazepam (Ativan) 1 mg Q1HWA PRN IM AGITATION/ANXIETY; Start 02/10/17 at 19:00 Trimethobenzamide HCl 200 mg 200 mg Q6H PRN IM NAUSEA AND/OR VOMITING; Start at 19:30 Norepinephrine/ Dextrose (Levophed/D5W) 500 ml @ 1.87 mls/hr TITRATE IV ; Start 02/13/17 at 12:00; Status Future hold Morphine Sulfate (morphine) 2 mg Q4H PRN IV pain Last administered on 12:41; Admin Dose 2 MG; Start 02/20/17 at 18:30 Docusate Sodium 100 mg 100 mg QHS PRN NGT For Constipation; Start 02/25/17 at 21:00 Fentanyl 100 ml @ 2.5 mls/hr TITRATE IV Last administered on 02/26/17 13:45; Admin Dose 2.5 MLS/HR; Start 02/25/17 at 10:00 Midazolam HCl 50 ml @ 1 mls/hr TITRATE IV Last administered on 02/25/17 18:11 ; Admin Dose 3 MLS/HR; Start 02/25/17 at 10:00 Meropenem 100 ml @ 200 mls/hr Q8 IVPB Last administered on 03/01/17 05:09; Admin Dose 200 MLS/HR; Start 02/26/17 at 14:00 Fluconazole 100 ml @ 100 mls/hr Q24H IVPB Last administered on 02/28/17 17:29 ; Admin Dose 100 MLS/HR; Start 02/26/17 at 17:00 Vancomycin HCl 250 ml @ 125 mls/hr Q12H IVPB Last administered on 03/01/17 04 :59; Admin Dose 125 MLS/HR; Start 02/27/17 at 03:00 Acetaminophen (Ofirmev 1000mg/ 100ml Iv) 100 ml @ 50 mls/hr Q6H PRN IVPB fever Last administered on 03/01/17 08:55; Admin Dose 50 MLS/HR; Start at 07:30 Haloperidol (Haldol) 5 mg Q6H PRN IV AGITATION/ANXIETY; Start 02/28/17 at 13:00 RICHAR ADRIAN March 01, 2017 09:48
[2017-03-01] MEDS ORDERED: LIDOCAINE 1% (MPF) 5 ML VIAL SC ONE (12:00)
--- NOTE | 2017-03-01 12:50 | CONS ---
Date/Time of Note Date/Time of Note DATE: 03/01/17 TIME: 12:48 Assessment/Plan Assessment/Plan Chief Complaint/Hosp Course SUBJECTIVE: No events, low grade temp, awake, looks comfortable, still confused. MICROBIOLOGY: Pleural fluid cultures remain negative. Bronchoalveolar lavage cultures preliminary negative. INDWELLINGS: Zeng catheter ANTIMICROBIALS: 1. Vancomycin. 2. Meropenem. 3. Fluconazole. PHYSICAL EXAMINATION: GENERAL: This is an ill-appearing, middle-aged white man who is awake, in no distress. HEENT: Head atraumatic, normocephalic. Sclerae anicteric. Buccal mucosa dry. NECK: Supple, trachea midline. CHEST: Rise symmetrical. Breath sounds with scattered rhonchi. HEART: S1, S2. ABDOMEN: Soft. Bowel tones present. EXTREMITIES: With bilateral dependent edema lower extremities. ASSESSMENT: 1. Ongoing fevers==> likely 2 to multiple intraabdominal abscesses===> improved 2. Recurrent respiratory failure, status post reintubated, extubated yesterday. 3. Pneumonia. 4. History of Crohn's disease, status post perforated viscus repair. 5. Acute on chronic anemia. PLAN: The patient remains hemodynamically stable, covered with abx, surgery follows, continue present care, pending PICC DW staff Problems: Consultation Date/Type/Reason Admit Date/Time Feb 01, 2017 at 03:10 Initial Consult Date 02/02/17 Type of Consultation: ID Referring Provider: VINCE PADGETT Exam/Review of Systems Vital Signs Vitals Vital Signs Date Time Temp Pulse Resp B/P Pulse Ox O2 Delivery O2 Flow Rate FiO2 03/01/17 12:42 4.0 03/01/17 12:30 85 22 121/77 98 03/01/17 12:00 98.4 Nasal Cannula 03/01/17 08:14 36 Intake and Output 02/28/17 02/28/17 03/01/17 15:00 23:00 07:00 Intake Total 50 ml 690 ml 455 ml Output Total 650 ml 665 ml 631 ml Balance -600 ml 25 ml -176 ml Results Result Diagram: 03/01/17 0535 03/01/17 0535 Results 24 hrs Laboratory Tests Test 02/28/17 17:40 02/28/17 21:27 03/01/17 02:06 03/01/17 04:58 Lactic Acid Level 0.8 Bedside Glucose 75 87 Lab Scanned Report BLOOD TRANSFUSION Test 03/01/17 05:35 White Blood Count 11.2 H Red Blood Count 2.79 L Hemoglobin 7.9 L Hematocrit 25.6 L Mean Corpuscular Volume 91.8 Mean Corpuscular Hemoglobin 28.3 L Mean Corpuscular Hemoglobin Concent 30.9 L Red Cell Distribution Width 14.3 Platelet Count 496 H Mean Platelet Volume 10.6 H Neutrophils % 81.4 H Lymphocytes % 5.5 L Monocytes % 8.0 Eosinophils % 3.5 Basophils % 0.6 Nucleated Red Blood Cells % 0.0 Neutrophils # 9.1 H Lymphocytes # 0.6 L Monocytes # 0.9 Eosinophils # 0.4 Basophils # 0.1 Nucleated Red Blood Cells # 0.0 Sodium Level 141 Potassium Level 3.6 Chloride Level 106 Carbon Dioxide Level 26 Anion Gap 13 Blood Urea Nitrogen 14 Creatinine 0.62 Glucose Level 84 Calcium Level 7.9 L Medications Medications Current Medications Pantoprazole (Protonix Iv) 40 mg DAILY@06 IV Last administered on 03/01/17 05: 09; Admin Dose 40 MG; Start 02/01/17 at 06:00 Acetaminophen/ Hydrocodone Bitart ([place] (5/325)) 1 tab Q4H PRN PO PAIN LEVEL 4 -7 Last administered on 02/09/17 18:48; Admin Dose 1 TAB; Start 02/01/17 at 20: 30 Acetaminophen/ Hydrocodone Bitart ([place] (5/325)) 2 tab Q4H PRN PO PAIN LEVEL 7 -10; Start 02/01/17 at 20:30 Bisacodyl (Dulcolax Supp) 10 mg BID PRN [place] CONSTIPATION; Start 02/01/17 at 20: 30 Sodium Biphosphate/ Sodium Phosphate (Fleet Enema) 133 ml BID PRN [place] CONSTIPATION; Start 02/01/17 at 20:30 Acetaminophen (Tylenol Liquid) 650 mg Q4H PRN GTB PAIN AND OR ELEVATED TEMP Last administered on 02/27/17 12:37; Admin Dose 650 MG; Start 02/05/17 at 18:30 Salmeterol Xinafoate/ Fluticasone (Advair 250/50 Diskus) 1 inh BID INH Last administered on 02/12/17 09:03; Admin Dose 1 INH; Start 02/07/17 at 11:00; Status Future Hold IV Flush (NS 10 ml) 10 ml PRN PRN IV IV PROTOCOL; Start 02/07/17 at 14:30 Diphenhydramine HCl 25 mg 25 mg Q6H PRN IV itching ; Start 02/07/17 at 20:00 Ondansetron HCl/ Sodium Chloride (Zofran Inj/NS) 54 ml @ 216 mls/hr Q6H PRN IV NAUSEA AND/OR VOMITING; Start 02/09/17 at 11:30 Prednisone (Prednisone) 40 mg DAILY PO Last administered on 02/12/17 09:03; Admin Dose 40 MG; Start 02/11/17 at 09:00; Status Future Hold Lorazepam (Ativan) 1 mg Q1HWA PRN IM AGITATION/ANXIETY; Start 02/10/17 at 19:00 Trimethobenzamide HCl ([place]) 200 mg Q6H PRN IM NAUSEA AND/OR VOMITING; Start 02/10/17 at 19:30 Morphine Sulfate (morphine) 2 mg Q4H PRN IV pain Last administered on 12:41; Admin Dose 2 MG; Start 02/20/17 at 18:30 Docusate Sodium 100 mg 100 mg QHS PRN NGT For Constipation; Start 02/25/17 at 21:00 Meropenem 100 ml @ 200 mls/hr Q8 IVPB Last administered on 03/01/17 05:09; Admin Dose 200 MLS/HR; Start 02/26/17 at 14:00 Fluconazole 100 ml @ 100 mls/hr Q24H IVPB Last administered on 02/28/17 17:29 ; Admin Dose 100 MLS/HR; Start 02/26/17 at 17:00 Vancomycin HCl 250 ml @ 125 mls/hr Q12H IVPB Last administered on 03/01/17 04 :59; Admin Dose 125 MLS/HR; Start 02/27/17 at 03:00 Acetaminophen (Ofirmev 1000mg/ 100ml Iv) 100 ml @ 50 mls/hr Q6H PRN IVPB fever Last administered on 03/01/17 08:55; Admin Dose 50 MLS/HR; Start at 07:30 Haloperidol 5 mg 5 mg Q6H PRN IV AGITATION/ANXIETY; Start 02/28/17 at 13:00 Total Parenteral Nutrition (Tpn) 1,000 ml @ 50 mls/hr Q20H IV ; Start 03/01/17 at 12:00 THOMAS ELLIS NP March 01, 2017 12:50
[2017-03-01] MEDS ORDERED: POTASSIUM CHLORIDE (SR) 20 MEQ TAB PO STA (13:35)
--- NOTE | 2017-03-01 13:37 | CONS ---
Date/Time of Note Date/Time of Note DATE: 03/01/17 TIME: 13:34 Assessment/Plan Assessment/Plan Additional Assessment/Plan Perforated colon status post surgery Severe sepsis Respiratory failure-extubated Low normal ejection fraction 50% Acute decompensated diastolic congestive heart failure Crohn's disease Acute blood loss anemia -Chest x-ray and recent CT of the pelvis with visualized portions of the lungs demonstrate pleural effusions and pulmonary vascular congestion. Restart diuretics and titrate as blood pressure and renal function permits. Maintain potassium above 4.0 and magnesium above 2.0. Consultation Date/Type/Reason Admit Date/Time Feb 01, 2017 at 03:10 Initial Consult Date 02/02/17 Type of Consultation: cv Referring Provider: VINCE PADGETT 24 HR Interval Summary Free Text/Dictation Denies shortness of breath, chest pain or abdominal pain Exam/Review of Systems Vital Signs Vitals Vital Signs Date Time Temp Pulse Resp B/P Pulse Ox O2 Delivery O2 Flow Rate FiO2 03/01/17 13:27 84 22 99 4.0 36 03/01/17 12:30 121/77 03/01/17 12:00 98.4 Nasal Cannula Intake and Output 02/28/17 02/28/17 03/01/17 15:00 23:00 07:00 Intake Total 50 ml 690 ml 455 ml Output Total 650 ml 665 ml 631 ml Balance -600 ml 25 ml -176 ml Exam Confused at times, follows commands, no apparent distress Constitutional: alert Head: normocephalic Respiratory: other (Coarse breath sounds bilaterally, no wheezing) Cardiovascular: other (S1-S2 heard), regular rate and rhythm Gastrointestinal: bowel sounds, non-tender, soft Extremities: edema Results Result Diagram: 03/01/17 0535 03/01/17 0535 Results 24 hrs Laboratory Tests Test 02/28/17 17:40 02/28/17 21:27 03/01/17 02:06 03/01/17 04:58 Lactic Acid Level 0.8 Bedside Glucose 75 87 Lab Scanned Report BLOOD TRANSFUSION Test 03/01/17 05:35 White Blood Count 11.2 H Red Blood Count 2.79 L Hemoglobin 7.9 L Hematocrit 25.6 L Mean Corpuscular Volume 91.8 Mean Corpuscular Hemoglobin 28.3 L Mean Corpuscular Hemoglobin Concent 30.9 L Red Cell Distribution Width 14.3 Platelet Count 496 H Mean Platelet Volume 10.6 H Neutrophils % 81.4 H Lymphocytes % 5.5 L Monocytes % 8.0 Eosinophils % 3.5 Basophils % 0.6 Nucleated Red Blood Cells % 0.0 Neutrophils # 9.1 H Lymphocytes # 0.6 L Monocytes # 0.9 Eosinophils # 0.4 Basophils # 0.1 Nucleated Red Blood Cells # 0.0 Sodium Level 141 Potassium Level 3.6 Chloride Level 106 Carbon Dioxide Level 26 Anion Gap 13 Blood Urea Nitrogen 14 Creatinine 0.62 Glucose Level 84 Calcium Level 7.9 L Medications Medications Current Medications Pantoprazole (Protonix Iv) 40 mg DAILY@06 IV Last administered on 03/01/17 05: 09; Admin Dose 40 MG; Start 02/01/17 at 06:00 Acetaminophen/ Hydrocodone Bitart ([place] (5/325)) 1 tab Q4H PRN PO PAIN LEVEL 4 -7 Last administered on 02/09/17 18:48; Admin Dose 1 TAB; Start 02/01/17 at 20: 30 Acetaminophen/ Hydrocodone Bitart ([place] (5/325)) 2 tab Q4H PRN PO PAIN LEVEL 7 -10; Start 02/01/17 at 20:30 Bisacodyl (Dulcolax Supp) 10 mg BID PRN [place] CONSTIPATION; Start 02/01/17 at 20: 30 Sodium Biphosphate/ Sodium Phosphate (Fleet Enema) 133 ml BID PRN [place] CONSTIPATION; Start 02/01/17 at 20:30 Acetaminophen (Tylenol Liquid) 650 mg Q4H PRN GTB PAIN AND OR ELEVATED TEMP Last administered on 02/27/17 12:37; Admin Dose 650 MG; Start 02/05/17 at 18:30 Salmeterol Xinafoate/ Fluticasone (Advair 250/50 Diskus) 1 inh BID INH Last administered on 02/12/17 09:03; Admin Dose 1 INH; Start 02/07/17 at 11:00; Status Future Hold IV Flush (NS 10 ml) 10 ml PRN PRN IV IV PROTOCOL; Start 02/07/17 at 14:30 Diphenhydramine HCl 25 mg 25 mg Q6H PRN IV itching ; Start 02/07/17 at 20:00 Ondansetron HCl/ Sodium Chloride (Zofran Inj/NS) 54 ml @ 216 mls/hr Q6H PRN IV NAUSEA AND/OR VOMITING; Start 02/09/17 at 11:30 Prednisone (Prednisone) 40 mg DAILY PO Last administered on 02/12/17 09:03; Admin Dose 40 MG; Start 02/11/17 at 09:00; Status Future Hold Lorazepam (Ativan) 1 mg Q1HWA PRN IM AGITATION/ANXIETY; Start 02/10/17 at 19:00 Trimethobenzamide HCl (Tigan) 200 mg Q6H PRN IM NAUSEA AND/OR VOMITING; Start 02/10/17 at 19:30 Morphine Sulfate (morphine) 2 mg Q4H PRN IV pain Last administered on 12:41; Admin Dose 2 MG; Start 02/20/17 at 18:30 Docusate Sodium 100 mg 100 mg QHS PRN NGT For Constipation; Start 02/25/17 at 21:00 Meropenem 100 ml @ 200 mls/hr Q8 IVPB Last administered on 03/01/17 05:09; Admin Dose 200 MLS/HR; Start 02/26/17 at 14:00 Fluconazole 100 ml @ 100 mls/hr Q24H IVPB Last administered on 02/28/17 17:29 ; Admin Dose 100 MLS/HR; Start 02/26/17 at 17:00 Vancomycin HCl 250 ml @ 125 mls/hr Q12H IVPB Last administered on 03/01/17 04 :59; Admin Dose 125 MLS/HR; Start 02/27/17 at 03:00 Acetaminophen (Ofirmev 1000mg/ 100ml Iv) 100 ml @ 50 mls/hr Q6H PRN IVPB fever Last administered on 03/01/17 08:55; Admin Dose 50 MLS/HR; Start at 07:30 Haloperidol 5 mg 5 mg Q6H PRN IV AGITATION/ANXIETY; Start 02/28/17 at 13:00 Total Parenteral Nutrition (Tpn) 1,000 ml @ 50 mls/hr Q20H IV ; Start 03/01/17 at 12:00 Keith Gandhi DO March 01, 2017 13:37
[2017-03-01] MEDS ORDERED: POTASSIUM CHLORIDE 20 MEQ POWDER FOR ORAL SOLN PO ONE (14:30)
[2017-03-01] MEDS: HALOPERIDOL 5 MG INJ IV PRN (15:13)
[2017-03-01] MEDS: FUROSEMIDE 20 MG INJ IV SCH ×2 (15:26→22:02)
--- NOTE | 2017-03-01 16:13 | RADRPT ---
PROCEDURE: XR Chest. CLINICAL INDICATION: Check PICC line position. TECHNIQUE: Single frontal view. COMPARISON: 03/01/2017. 0612 hours. FINDINGS: There is a right arm PICC line with the tip in the lower superior vena cava. There is bilateral pul monary air space disease in the mid and lower lung zones consistent with pulmonary edema. The lungs are otherwise clear. The heart size is normal. There are small bilateral pleural effusions. There is no pneumothorax. IMPRESSION: 1. Satisfactory position of right arm PICC line. 2. Pulmonary edema and small bilateral pleural effusions, unchanged. RPTAT: QQ .Rogelio Vera MD, MD Date Time Electronically viewed and signed by .Rogelio Vera MD, MD on 03/01/2017 16:13 .R/
--- NOTE | 2017-03-01 16:24 | PN ---
Date/Time of Note Date/Time of Note DATE: 03/01/17 TIME: 16:21 Assessment/Plan Lines/Catheters IV Catheter Type (from Nrs): Saline Lock Zeng in Place (from Nrs): Yes Assessment/Plan Assessment/Plan [facility] Progress Note Date of Service: 03/01/17 Today's Impression & Plan: Overall stable. Remains extubated. Abd benign. Discussed CT findings with Dr. Vera and we both agreed that there is not enough indication to interrogate these collections at this time. No indication for acute surgical intervention. Remains high risk for complication given perforated colon in the setting of uncontrolled Crohn's. Recovery will take extra time with likely need for rehab. With above assessment, I've recommended the following for today: 1. Cont current cares in ICU 2. F/u on cultures 3. Cont TPN 4. Pulmonary toilet and recheck of status for the left lung; agree with plans to extubate today 5. Cont gentle diuresis to BMP < 200 6. Social work and case management to please start working on possible rehab vs. home health nurse set up 7. Increase activity 8. Increase ICS 9. Wean off broad spec antimicrobials 10. Labs in am 11. Cont current wound care with wound vac 12. Consider hematology consultation and send peripheral smear 13. May consider brain MRI Thank you again for your great care of this very pleasant patient and wonderful family. If there are any questions, please feel free to call me at [phone]. TOTAL VISIT TIME: 20 minutes of which more than half was spent in [id number] discussion with the patient, possibly including family, as well as coordination of care between multiple physicians and providers. Disclaimer: Inadvertent spelling or grammatical errors are likely due to EHR/ dictation software use and do not reflect on the overall quality of patient care. Updated Clinical Summary: A very pleasant 46-year-old gentleman with history of Crohn's disease as well as prior surgery for anal fistula approximately 5 years ago, and a torn meniscus repair on the left knee, presenting with abdominal pain associated with a few weeks' duration of diarrhea. S/p an otherwise uncomplicated diagnostic laparoscopy was converted first to hand assist and then to open exploration when perforated sigmoid colon was found and it was resected with a Deena type procedure and end colostomy as well as core needle liver biopsy, segment 5, due to presence of fatty liver disease, lysis of adhesions, and abdominal lavage on 02/01/17. Failed to wean off the vent through 02/06/17. PE was evaluated 02/07/[address] angio and no evidence found. CT abd/pelvis also did not show actionable findings (no abscess; bowel thickening somewhat expected). Extubated 02/07/17. 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 Fortunately, mentally appears to be intact and not on pressors. Lactic acid and CO2 normal with benign appearing abd and viable ostomy. Complicated by fascia dehiscence. S/p exploration of abdomen through recent laparotomy, primary closure of fascia and abdominal lavage on 02/15/17. Reintubated 02/25/17 for bronchoscopy to remove mucus plug. COMORBIDITIES: 1. Crohn disease with perforation of sigmoid colon and sepsis. S/p an otherwise uncomplicated diagnostic laparoscopy was converted first to hand assist and then to open exploration when perforated sigmoid colon was found and it was resected with a Deena type procedure and end colostomy as well as core needle liver biopsy, segment 5, due to presence of fatty liver disease, lysis of adhesions, and abdominal lavage on 02/01/17. Complicated by respiratory failure, return trip to ICU and fascia dehiscence. S/p exploration of abdomen through recent laparotomy, primary closure of fascia and abdominal lavage on 02/15. 2. Repair of a fistula approximately 5 years ago. 3. Torn meniscus on the left knee status post repair. Subjective: No major events overnight per report; confused; undergoing PICC line replacement Objective: Vitals: See below Exam: Unable to examine. Undergoing PICC line placement. Wounds looked great according to the nurse. Patient confused. Exam/Review of Systems Vital Signs Vitals Vital Signs Date Time Temp Pulse Resp B/P Pulse Ox O2 Delivery O2 Flow Rate FiO2 03/01/17 13:38 87 21 100 4.0 36 03/01/17 12:30 121/77 03/01/17 12:00 98.4 Nasal Cannula Intake and Output 02/28/17 02/28/17 03/01/17 15:00 23:00 07:00 Intake Total 50 ml 690 ml 455 ml Output Total 650 ml 665 ml 631 ml Balance -600 ml 25 ml -176 ml Results Result Diagram: 03/01/17 0535 03/01/17 0535 TI HILTON M.D. March 01, 2017 16:24
--- NOTE | 2017-03-01 16:41 | PN ---
Date/Time of Note Date/Time of Note DATE: 03/01/17 TIME: 16:38 Assessment/Plan VTE Prophylaxis VTE Prophylaxis Intervention: SCD's Lines/Catheters IV Catheter Type (from Nrs): PICC Line Central line still needed: Yes Urinary Cath still in place: Yes Reason Cath still needed: urinary retention Assessment/Plan Assessment/Plan Perforated sigmoid colon * Laparoscopic exploration,open sigmoid colectomy with Deena end colostomy with liver biopsy segment V h/o Crohn's disease Respiratory failure secondary resolving Thrombocytopenia Liver Cirrhosis Anemia hemoglobin Atelectasis,compressive managed by pulmonary Plan Continue present management Will reevaluate for Crohn's disease once recovered from surgery Subjective 24 Hr Interval Summary Free Text/Dictation * Course reviewed with RN * Patient seen and examined * No abdominal pain,nor fever Exam/Review of Systems Vital Signs Vitals Vital Signs Date Time Temp Pulse Resp B/P Pulse Ox O2 Delivery O2 Flow Rate FiO2 03/01/17 16:00 95 03/01/17 13:38 21 100 4.0 36 03/01/17 12:30 121/77 03/01/17 12:00 98.4 Nasal Cannula Intake and Output 02/28/17 02/28/17 03/01/17 15:00 23:00 07:00 Intake Total 50 ml 690 ml 455 ml Output Total 650 ml 665 ml 631 ml Balance -600 ml 25 ml -176 ml Exam Constitutional: alert Psych: nl mood/affect Neck: non-tender, supple Respiratory: clear to auscultation, normal air movement Cardiovascular: nl pulses, regular rate and rhythm Gastrointestinal: bowel sounds, non-tender, soft, No rebound or guarding Musculoskeletal: nl extremities to inspection Results Result Diagram: 03/01/17 0535 03/01/17 0535 Results 24 hrs Laboratory Tests Test 02/28/17 17:40 02/28/17 21:27 03/01/17 02:06 03/01/17 04:58 Lactic Acid Level 0.8 Bedside Glucose 75 87 Lab Scanned Report BLOOD TRANSFUSION Test 03/01/17 05:35 White Blood Count 11.2 H Red Blood Count 2.79 L Hemoglobin 7.9 L Hematocrit 25.6 L Mean Corpuscular Volume 91.8 Mean Corpuscular Hemoglobin 28.3 L Mean Corpuscular Hemoglobin Concent 30.9 L Red Cell Distribution Width 14.3 Platelet Count 496 H Mean Platelet Volume 10.6 H Neutrophils % 81.4 H Lymphocytes % 5.5 L Monocytes % 8.0 Eosinophils % 3.5 Basophils % 0.6 Nucleated Red Blood Cells % 0.0 Neutrophils # 9.1 H Lymphocytes # 0.6 L Monocytes # 0.9 Eosinophils # 0.4 Basophils # 0.1 Nucleated Red Blood Cells # 0.0 Sodium Level 141 Potassium Level 3.6 Chloride Level 106 Carbon Dioxide Level 26 Anion Gap 13 Blood Urea Nitrogen 14 Creatinine 0.62 Glucose Level 84 Calcium Level 7.9 L Medications Medications Current Medications Pantoprazole (Protonix Iv) 40 mg DAILY@06 IV Last administered on 03/01/17 05: 09; Admin Dose 40 MG; Start 02/01/17 at 06:00 Acetaminophen/ Hydrocodone Bitart ([place] (5/325)) 1 tab Q4H PRN PO PAIN LEVEL 4 -7 Last administered on 02/09/17 18:48; Admin Dose 1 TAB; Start 02/01/17 at 20: 30 Acetaminophen/ Hydrocodone Bitart ([place] (5/325)) 2 tab Q4H PRN PO PAIN LEVEL 7 -10; Start 02/01/17 at 20:30 Bisacodyl (Dulcolax Supp) 10 mg BID PRN [place] CONSTIPATION; Start 02/01/17 at 20: 30 Sodium Biphosphate/ Sodium Phosphate (Fleet Enema) 133 ml BID PRN [place] CONSTIPATION; Start 02/01/17 at 20:30 Acetaminophen (Tylenol Liquid) 650 mg Q4H PRN GTB PAIN AND OR ELEVATED TEMP Last administered on 02/27/17 12:37; Admin Dose 650 MG; Start 02/05/17 at 18:30 Salmeterol Xinafoate/ Fluticasone (Advair 250/50 Diskus) 1 inh BID INH Last administered on 02/12/17 09:03; Admin Dose 1 INH; Start 02/07/17 at 11:00; Status Future Hold IV Flush (NS 10 ml) 10 ml PRN PRN IV IV PROTOCOL; Start 02/07/17 at 14:30 Diphenhydramine HCl 25 mg 25 mg Q6H PRN IV itching ; Start 02/07/17 at 20:00 Ondansetron HCl/ Sodium Chloride (Zofran Inj/NS) 54 ml @ 216 mls/hr Q6H PRN IV NAUSEA AND/OR VOMITING; Start 02/09/17 at 11:30 Prednisone (Prednisone) 40 mg DAILY PO Last administered on 02/12/17 09:03; Admin Dose 40 MG; Start 02/11/17 at 09:00; Status Future Hold Lorazepam (Ativan) 1 mg Q1HWA PRN IM AGITATION/ANXIETY; Start 02/10/17 at 19:00 Trimethobenzamide HCl (Tigan) 200 mg Q6H PRN IM NAUSEA AND/OR VOMITING; Start 02/10/17 at 19:30 Morphine Sulfate (morphine) 2 mg Q4H PRN IV pain Last administered on 12:41; Admin Dose 2 MG; Start 02/20/17 at 18:30 Docusate Sodium 100 mg 100 mg QHS PRN NGT For Constipation; Start 02/25/17 at 21:00 Meropenem 100 ml @ 200 mls/hr Q8 IVPB Last administered on 03/01/17 15:13; Admin Dose 200 MLS/HR; Start 02/26/17 at 14:00 Fluconazole 100 ml @ 100 mls/hr Q24H IVPB Last administered on 02/28/17 17:29 ; Admin Dose 100 MLS/HR; Start 02/26/17 at 17:00 Vancomycin HCl 250 ml @ 125 mls/hr Q12H IVPB Last administered on 03/01/17 15 :13; Admin Dose 125 MLS/HR; Start 02/27/17 at 03:00 Acetaminophen (Ofirmev 1000mg/ 100ml Iv) 100 ml @ 50 mls/hr Q6H PRN IVPB fever Last administered on 03/01/17 08:55; Admin Dose 50 MLS/HR; Start at 07:30 Haloperidol 5 mg 5 mg Q6H PRN IV AGITATION/ANXIETY Last administered on 15:13; Admin Dose 5 MG; Start 02/28/17 at 13:00 Total Parenteral Nutrition (Tpn) 1,000 ml @ 50 mls/hr Q20H IV ; Start 03/01/17 at 12:00 Furosemide (Lasix) 20 mg Q8 IV Last administered on 03/01/17 15:26; Admin Dose 20 MG; Start 03/01/17 at 14:00 SANDRA DAVIS MD March 01, 2017 16:41
[2017-03-01] MEDS: FLUCONAZOLE 200 MG/NS (PMX) 100 ML IVPB SCH (17:10)
[2017-03-01] MEDS: TPN 1,000 ML IV SCH (18:40)
[2017-03-01] MEDS ORDERED: SOD CHLORIDE 0.9% 100 ML ONE (19:10)
[2017-03-02] VITALS (30 sets, daily range): BP systolic 108–165; BP diastolic 63–98; PULSE 85–120; RESP 16–40
[2017-03-02] MEDS: ACETYLCYSTEINE 20% 4 ML VIAL NEB SCH ×4 (01:31→19:37)
[2017-03-02] MEDS: ALBUTEROL/IPRATROPIUM (NEB) 3 ML AMP HHN SCH ×4 (01:31→19:37)
[2017-03-02] MEDS: VANCOMYCIN 1 GM in NS 250 ML IVPB SCH ×2 (03:26→15:35)
[2017-03-02] MEDS: HALOPERIDOL 5 MG INJ IV PRN (04:12)
[2017-03-02 06:01] LABS: ADD SCAN DIFF NO; CALCIUM 7.9 mg/dl (8.4-10.2); CREATININE 0.59 mg/dl (0.61-1.24); POTASSIUM 3.8 mmol/L (3.5-5.1)
[2017-03-02 06:07] LABS: BASOPHIL # 0.1 10^3/ul (0.0-0.1); BASOPHILS % 0.4 % (0.0-2.0); EOSINOPHILS # 0.4 10^3/ul (0.0-0.5); EOSINOPHILS % 3.8 % (0.0-7.0); HEMATOCRIT 25.1 % (42.0-52.0); HEMOGLOBIN 7.6 g/dl (14.0-18.0); LYMPHOCYTES # 0.8 10^3/ul (0.8-2.9); LYMPHOCYTES % 6.9 % (15.0-51.0); MEAN CORPUSCULAR HEMOGLOBIN 27.8 pg (29.0-33.0); MEAN CORPUSCULAR HGB CONC 30.3 g/dl (32.0-37.0); MEAN CORPUSCULAR VOLUME 91.9 fl (82.0-101.0); MEAN PLATELET VOLUME 11.2 fl (7.4-10.4); NEUTROPHIL # 9.1 10^3/ul (1.6-7.5); NEUTROPHILS % 78.9 % (39.0-77.0); PLATELET COUNT 441 10^3/UL (140-415); RED BLOOD COUNT 2.73 10^6/ul (4.70-6.10); RED CELL DISTRIBUTION WIDTH 14.6 % (11.5-14.5); WHITE BLOOD COUNT 11.5 10^3/ul (4.8-10.8)
[2017-03-02] MEDS: FUROSEMIDE 20 MG INJ IV SCH ×3 (06:46→21:13)
[2017-03-02] MEDS: PANTOPRAZOLE 40 MG INJ IV SCH (06:46)
[2017-03-02] MEDS: MEROPENEM 1 GM/100 ML (PMX) 100 ML IVPB SCH ×3 (06:47→21:13)
[2017-03-02] MEDS: TPN 1,000 ML IV SCH ×2 (08:00→14:56)
[2017-03-02 08:27] LABS: AADO2 Arterial 98.8 mmHg (7.0-24.0); Allen Test ACCEPTAB; Arterial Base Excess 7.5 mmol/L (-3.0-3); Arterial COHb 0.1 % (0.0-3.0); Arterial Fraction of Oxyhgb 96.2 % (93.0-99.0); Arterial HCO3 31.3 mmol/L (22.0-26.0); Arterial MetHb 0.1 % (0.0-1.5); MODE NASAL CANNULA
--- NOTE | 2017-03-02 08:31 | RADRPT ---
PROCEDURE: XR Chest 1 View. CLINICAL INDICATION: Shortness of breath TECHNIQUE: AP view of the chest was obtained. COMPARISON: Yesterday FINDINGS: The cardiomediastinal silhouette is within normal limits. Right-sided PICC line is stable. Central pulmonary vascular congestion and interstitial prominence in both lungs is unchanged. Left mid and lower lung infiltrates combined with small pleural effusion are unchanged. Right basilar atelectasi s versus mild infiltrates and small right pleural effusion are stable. The osseous structures are un changed. IMPRESSION: Stable mild central pulmonary vascular congestion and interstitial prominence in both lungs. Stable left mid and lower lung infiltrates, combined with small pleural effusion. Stable right basilar atelectasis versus infiltrates, combined with small pleural effusion. RPTAT: AA .Schuyler Ugalde MD, Date Time Electronically viewed and signed by .Schuyler Ugalde MD, on 03/02/2017 08:31 .P/
--- NOTE | 2017-03-02 10:28 | CONS ---
Date/Time of Note Date/Time of Note DATE: 03/02/17 TIME: 10:26 Assessment/Plan Assessment/Plan Additional Assessment/Plan Chest x-ray was reviewed from today which is showing continued improvement in left lung infiltrates. Right lung farias are clear. Next Assessment recommendations; 1. Patient admitted with sigmoid diverticulitis status post laparoscopic sigmoid resection with colostomy. 2. Patient had a respiratory failure immediately postop and then subsequently later on due to development of complete left lung atelectasis no successfully extubated again with continued improvement in chest x-ray. 3. 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 4. Anemia. Continue current treatment. Discontinue as needed Haldol dosing and start the patient on Haldol 3 mg IM every 8 hours at least for 3 scheduled doses. Consultation Date/Type/Reason Admit Date/Time Feb 01, 2017 at 03:10 Initial Consult Date 02/02/17 Type of Consultation: Pulmonary/critical care Referring Provider: VINCE PADGETT 24 HR Interval Summary Free Text/Dictation Patient's condition is tenuous at best. Patient is having hallucinations. And has to be restrained. Has remained hemodynamically stable. General exam; middle-aged male, awake, alert. Confused. Patient however is not in any distress. Exam/Review of Systems Vital Signs Vitals Vital Signs Date Time Temp Pulse Resp B/P Pulse Ox O2 Delivery O2 Flow Rate FiO2 03/02/17 08:22 96 4.0 03/02/17 08:00 98.7 93 25 127/86 Nasal Cannula 03/01/17 13:38 36 Intake and Output 03/01/17 03/01/17 03/02/17 14:59 22:59 06:59 Intake Total 350 ml 995 ml 750 ml Output Total 455 ml 1315 ml 1250 ml Balance -105 ml -320 ml -500 ml Exam HEENT exam is; supple neck, no JVD. No lymphadenopathy. Midline trachea. No thyromegaly. Patient has fair dentition. Pupils are midsize. Chest examination; diminished but clear vessel. S1-S2 audible, no murmurs. Regular rhythm. Abdomen examination; soft, colostomy in place. Bowel sounds audible. Nontender. Nondistended. Extremity examination; no peripheral edema. COMPLEX HUMAN RESOURCES MANAGER examination; patient is awake moves all 4 extremities on command. Results Result Diagram: 03/02/17 0415 03/02/17 041 Results 24 hrs Laboratory Tests Test 03/02/17 04:15 03/02/17 07:00 White Blood Count 11.5 H Red Blood Count 2.73 L Hemoglobin 7.6 L Hematocrit 25.1 L Mean Corpuscular Volume 91.9 Mean Corpuscular Hemoglobin 27.8 L Mean Corpuscular Hemoglobin Concent 30.3 L Red Cell Distribution Width 14.6 H Platelet Count 441 H Mean Platelet Volume 11.2 H Neutrophils % 78.9 H Lymphocytes % 6.9 L Monocytes % 9.0 Eosinophils % 3.8 Basophils % 0.4 Nucleated Red Blood Cells % 0.0 Neutrophils # 9.1 H Lymphocytes # 0.8 Monocytes # 1.0 H Eosinophils # 0.4 Basophils # 0.1 Nucleated Red Blood Cells # 0.0 Sodium Level 140 Potassium Level 3.8 Chloride Level 104 Carbon Dioxide Level 31 Anion Gap 9 Blood Urea Nitrogen 12 Creatinine 0.59 L Glucose Level 103 Calcium Level 7.9 L Phosphorus Level 3.5 Magnesium Level 1.3 L Blood Gas Specimen Source Blood arterial Arterial Blood Date Drawn 03/02/2017 7:49:05 AM Arterial Blood pH (Temp corrected) 7.501 H Arterial Blood pCO2 (Temp correct) 41.0 Arterial Blood pO2 (Temp corrected) 88.6 Arterial Blood HCO3 31.3 H Arterial Blood Base Excess 7.5 H Arterial Blood Oxygen Saturation 96.4 Raffy Test ACCEPTAB Arterial Blood Gas Puncture Site Right Radial Arterial Blood Carboxyhemoglobin 0.1 Arterial Blood Methemoglobin 0.1 Blood Gas A-a O2 Differential 98.8 H Oxyhemoglobin Percent 96.2 Total Hemoglobin 11.0 L Blood Gas Temperature 37.0 Blood Gas Modality NASAL CANNULA FiO2 33.0 Blood Gas Notified Whom JLD Blood Gas Notified Time 03/02/2017 8:27:33 AM Medications Medications Current Medications Pantoprazole (Protonix Iv) 40 mg DAILY@06 IV Last administered on 03/02/17 06: 46; Admin Dose 40 MG; Start 02/01/17 at 06:00 Acetaminophen/ Hydrocodone Bitart ([place] (5/325)) 1 tab Q4H PRN PO PAIN LEVEL 4 -7 Last administered on 02/09/17 18:48; Admin Dose 1 TAB; Start 02/01/17 at 20: 30 Acetaminophen/ Hydrocodone Bitart ([place] (5/325)) 2 tab Q4H PRN PO PAIN LEVEL 7 -10; Start 02/01/17 at 20:30 Bisacodyl (Dulcolax Supp) 10 mg BID PRN [place] CONSTIPATION; Start 02/01/17 at 20: 30 Sodium Biphosphate/ Sodium Phosphate (Fleet Enema) 133 ml BID PRN [place] CONSTIPATION; Start 02/01/17 at 20:30 Acetaminophen (Tylenol Liquid) 650 mg Q4H PRN GTB PAIN AND OR ELEVATED TEMP Last administered on 02/27/17 12:37; Admin Dose 650 MG; Start 02/05/17 at 18:30 Salmeterol Xinafoate/ Fluticasone (Advair 250/50 Diskus) 1 inh BID INH Last administered on 02/12/17 09:03; Admin Dose 1 INH; Start 02/07/17 at 11:00; Status Future Hold IV Flush (NS 10 ml) 10 ml PRN PRN IV IV PROTOCOL; Start 02/07/17 at 14:30 Diphenhydramine HCl 25 mg 25 mg Q6H PRN IV itching Last administered on 00:00; Admin Dose 25 MG; Start 02/07/17 at 20:00 Ondansetron HCl/ Sodium Chloride (Zofran Inj/NS) 54 ml @ 216 mls/hr Q6H PRN IV NAUSEA AND/OR VOMITING; Start 02/09/17 at 11:30 Prednisone (Prednisone) 40 mg DAILY PO Last administered on 02/12/17 09:03; Admin Dose 40 MG; Start 02/11/17 at 09:00; Status Future Hold Lorazepam (Ativan) 1 mg Q1HWA PRN IM AGITATION/ANXIETY; Start 02/10/17 at 19:00 Trimethobenzamide HCl (Tigan) 200 mg Q6H PRN IM NAUSEA AND/OR VOMITING; Start 02/10/17 at 19:30 Morphine Sulfate (morphine) 2 mg Q4H PRN IV pain Last administered on 12:41; Admin Dose 2 MG; Start 02/20/17 at 18:30 Docusate Sodium 100 mg 100 mg QHS PRN NGT For Constipation; Start 02/25/17 at 21:00 Meropenem 100 ml @ 200 mls/hr Q8 IVPB Last administered on 03/02/17 06:47; Admin Dose 200 MLS/HR; Start 02/26/17 at 14:00 Fluconazole 100 ml @ 100 mls/hr Q24H IVPB Last administered on 03/01/17 17:10 ; Admin Dose 100 MLS/HR; Start 02/26/17 at 17:00 Vancomycin HCl 250 ml @ 125 mls/hr Q12H IVPB Last administered on 03/02/17 03 :26; Admin Dose 125 MLS/HR; Start 02/27/17 at 03:00 Acetaminophen (Ofirmev 1000mg/ 100ml Iv) 100 ml @ 50 mls/hr Q6H PRN IVPB fever Last administered on 03/01/17 08:55; Admin Dose 50 MLS/HR; Start at 07:30 Furosemide 20 mg 20 mg Q8 IV Last administered on 03/02/17 06:46; Admin Dose 20 MG; Start 03/01/17 at 14:00 Total Parenteral Nutrition (Tpn) 1,000 ml @ 50 mls/hr Q20H IV ; Start 03/02/17 at 14:00 RICHAR ADRIAN March 02, 2017 10:28
--- NOTE | 2017-03-02 11:38 | PN ---
Date/Time of Note Date/Time of Note DATE: 03/02/17 TIME: 11:28 Assessment/Plan VTE Prophylaxis VTE Prophylaxis Intervention: SCD's Lines/Catheters IV Catheter Type (from [facility]): PICC Line Central line still needed: Yes Urinary Cath still in place: Yes Reason Cath still needed: other (indicate) Assessment/Plan Assessment/Plan 1. Perforated sigmoid colon 2/2 Severe Crohn's colitis * S/p Urgent Open Cronin's procedure with end colostomy, liver biopsy and abdominal lavage 02/01/17P * S/p post operative paracolic abscess drained via CT 02/14/[address] * S/p Exploration of abdomen through recent laparotomy site with closure of fascia done 02/15/17 for Fascia dehiscence 2. Recurrent Resp failure: Extubated then reintubated 02/13, extubated, then reintubated 02/25/17, then extubated 02/27 * Status post bronchoscopy with clearance of extensive secretions in the left mainstem bronchus with improved aeration radiographically 02/25 * Pulm concerned about possible neuromuscular injury contributing to recurrent resp failure 3. Exacerbation of Crohn's disease with acute colitis and diarrhea Cultures earlier were growing ecoli / proteus / enterococcus 4. Multifocal PNA + Mook Pleural effusions - Effusions likely hydrostatic from hypoalbuminemia. + fevers - monitor, ID managing abx and antifungal 5. Severe Sepsis with lactic acidosis 2/2 severe colitis / PNA - now with fevers again though last episode was >24hrs ago, back on abx. - CT A/P showing new multiple abscesses / infection not likely from these per surgery - Continue abx per ID 6. S/p Systemic shock (hypovolemic +septic) - again, see # 5, abx. 7. TPN therapy for low prealbumin + tube feeds - Gentle diuresis with daily albumin 8. Hx of heavy alcohol and tobacco use just until admission - monitor 9. Probable underlying COPD and Cirrhosis based on hx which explains hypoalbuminemia and anasarca - monitor 10. Severe recurrent anemia likely 2/2 occult blood loss from multiple sources : PRN transfusions 11. Hypomagnesemia - replete as needed 12. TPN therapy: patient is not eeating very well yet, begin weaning when appetite improved. 13. Encephalopathy / Confusion : patient may have suffered some anoxic brain insult during the course of his hospitalization / May improve / continue restraints for now / will start low dose seroquel when less of an aspiration risk. Dispo: Remain in ICU for now, high reintubation risk especially with diet Plan to transfer when doing well with diet Heparin if ok with surgery CRITICAL CARE TIME: >35 mins Subjective 24 Hr Interval Summary Free Text/Dictation awake alert, confused, trying to climb out of bed, restraints Exam/Review of Systems Vital Signs Vitals Vital Signs Date Time Temp Pulse Resp B/P Pulse Ox O2 Delivery O2 Flow Rate FiO2 03/02/17 08:22 96 4.0 03/02/17 08:00 98.7 93 25 127/86 Nasal Cannula 03/01/17 13:38 36 Intake and Output 03/01/17 03/01/17 03/02/17 15:00 23:00 07:00 Intake Total 100 ml 1145 ml 600 ml Output Total 420 ml 1625 ml 900 ml Balance -320 ml -480 ml -300 ml Exam Constitutional: extubated, awake, confused, restraints, climbing out of bed Head: normocephalic Eyes: PERRL, icteric Respiratory: some diminished breath sounds, No wheezing Cardiovascular: regular rate and rhythm, No murmurs/extra sounds Gastrointestinal: other (midline surgical dressing with wound vac / L sided colostomy and drain / colostomy has dark green fluidy stool), soft otherwise Genitourinary - Male: other (significant scrotal and penile edema) Musculoskeletal: swelling (generalized severe anasarca) Extremities: some + pitting pedal edema Neurological: Lethargic Results Result Diagram: 03/02/17 0415 03/02/17 0415 Results 24 hrs Laboratory Tests Test 03/02/17 04:15 03/02/17 07:00 White Blood Count 11.5 H Red Blood Count 2.73 L Hemoglobin 7.6 L Hematocrit 25.1 L Mean Corpuscular Volume 91.9 Mean Corpuscular Hemoglobin 27.8 L Mean Corpuscular Hemoglobin Concent 30.3 L Red Cell Distribution Width 14.6 H Platelet Count 441 H Mean Platelet Volume 11.2 H Neutrophils % 78.9 H Lymphocytes % 6.9 L Monocytes % 9.0 Eosinophils % 3.8 Basophils % 0.4 Nucleated Red Blood Cells % 0.0 Neutrophils # 9.1 H Lymphocytes # 0.8 Monocytes # 1.0 H Eosinophils # 0.4 Basophils # 0.1 Nucleated Red Blood Cells # 0.0 Sodium Level 140 Potassium Level 3.8 Chloride Level 104 Carbon Dioxide Level 31 Anion Gap 9 Blood Urea Nitrogen 12 Creatinine 0.59 L Glucose Level 103 Calcium Level 7.9 L Phosphorus Level 3.5 Magnesium Level 1.3 L Blood Gas Specimen Source Blood arterial Arterial Blood Date Drawn 03/02/2017 7:49:05 AM Arterial Blood pH (Temp corrected) 7.501 H Arterial Blood pCO2 (Temp correct) 41.0 Arterial Blood pO2 (Temp corrected) 88.6 Arterial Blood HCO3 31.3 H Arterial Blood Base Excess 7.5 H Arterial Blood Oxygen Saturation 96.4 Raffy Test ACCEPTAB Arterial Blood Gas Puncture Site Right Radial Arterial Blood Carboxyhemoglobin 0.1 Arterial Blood Methemoglobin 0.1 Blood Gas A-a O2 Differential 98.8 H Oxyhemoglobin Percent 96.2 Total Hemoglobin 11.0 L Blood Gas Temperature 37.0 Blood Gas Modality NASAL CANNULA FiO2 33.0 Blood Gas Notified Whom JLD Blood Gas Notified Time 03/02/2017 8:27:33 AM Medications Medications Current Medications Pantoprazole (Protonix Iv) 40 mg DAILY@06 IV Last administered on 03/02/17 06: 46; Admin Dose 40 MG; Start 02/01/17 at 06:00 Acetaminophen/ Hydrocodone Bitart ([place] (5/325)) 1 tab Q4H PRN PO PAIN LEVEL 4 -7 Last administered on 02/09/17 18:48; Admin Dose 1 TAB; Start 02/01/17 at 20: 30 Acetaminophen/ Hydrocodone Bitart ([place] (5/325)) 2 tab Q4H PRN PO PAIN LEVEL 7 -10; Start 02/01/17 at 20:30 Bisacodyl (Dulcolax Supp) 10 mg BID PRN [place] CONSTIPATION; Start 02/01/17 at 20: 30 Sodium Biphosphate/ Sodium Phosphate (Fleet Enema) 133 ml BID PRN [place] CONSTIPATION; Start 02/01/17 at 20:30 Acetaminophen (Tylenol Liquid) 650 mg Q4H PRN GTB PAIN AND OR ELEVATED TEMP Last administered on 02/27/17 12:37; Admin Dose 650 MG; Start 02/05/17 at 18:30 Salmeterol Xinafoate/ Fluticasone (Advair 250/50 Diskus) 1 inh BID INH Last administered on 02/12/17 09:03; Admin Dose 1 INH; Start 02/07/17 at 11:00; Status Future Hold IV Flush (NS 10 ml) 10 ml PRN PRN IV IV PROTOCOL; Start 02/07/17 at 14:30 Diphenhydramine HCl 25 mg 25 mg Q6H PRN IV itching Last administered on 00:00; Admin Dose 25 MG; Start 02/07/17 at 20:00 Ondansetron HCl/ Sodium Chloride (Zofran Inj/NS) 54 ml @ 216 mls/hr Q6H PRN IV NAUSEA AND/OR VOMITING; Start 02/09/17 at 11:30 Prednisone (Prednisone) 40 mg DAILY PO Last administered on 02/12/17 09:03; Admin Dose 40 MG; Start 02/11/17 at 09:00; Status Future Hold Lorazepam (Ativan) 1 mg Q1HWA PRN IM AGITATION/ANXIETY; Start 02/10/17 at 19:00 Trimethobenzamide HCl (Tigan) 200 mg Q6H PRN IM NAUSEA AND/OR VOMITING; Start 02/10/17 at 19:30 Morphine Sulfate (morphine) 2 mg Q4H PRN IV pain Last administered on 12:41; Admin Dose 2 MG; Start 02/20/17 at 18:30 Docusate Sodium 100 mg 100 mg QHS PRN NGT For Constipation; Start 02/25/17 at 21:00 Meropenem 100 ml @ 200 mls/hr Q8 IVPB Last administered on 03/02/17 06:47; Admin Dose 200 MLS/HR; Start 02/26/17 at 14:00 Fluconazole 100 ml @ 100 mls/hr Q24H IVPB Last administered on 03/01/17 17:10 ; Admin Dose 100 MLS/HR; Start 02/26/17 at 17:00 Vancomycin HCl 250 ml @ 125 mls/hr Q12H IVPB Last administered on 03/02/17 03 :26; Admin Dose 125 MLS/HR; Start 02/27/17 at 03:00 Acetaminophen (Ofirmev 1000mg/ 100ml Iv) 100 ml @ 50 mls/hr Q6H PRN IVPB fever Last administered on 03/01/17 08:55; Admin Dose 50 MLS/HR; Start at 07:30 Furosemide 20 mg 20 mg Q8 IV Last administered on 03/02/17t 06:46; Admin Dose 20 MG; Start 03/01/17 at 14:00 Total Parenteral Nutrition (Tpn) 1,000 ml @ 50 mls/hr Q20H IV ; Start 03/02/17 at 14:00 Procedures Procedures PROCEDURE: XR Chest 1 View. CLINICAL INDICATION: Shortness of breath TECHNIQUE: AP view of the chest was obtained. COMPARISON: Yesterday FINDINGS: The cardiomediastinal silhouette is within normal limits. Right-sided PICC line is stable. Central pulmonary vascular congestion and interstitial prominence in both lungs is unchanged. Left mid and lower lung infiltrates combined with small pleural effusion are unchanged. Right basilar atelectasis versus mild infiltrates and small right pleural effusion are stable. The osseous structures are unchanged. IMPRESSION: Stable mild central pulmonary vascular congestion and interstitial prominence in both lungs. Stable left mid and lower lung infiltrates, combined with small pleural effusion. Stable right basilar atelectasis versus infiltrates, combined with small pleural effusion. RPTAT: AA .Schuyler Ugalde MD, MD Date Time Electronically viewed and signed by .Schuyler Ugalde MD, MD on 03/02/2017 08:31 .P/ CC: RICHAR ADRIAN BOLATITO M. March 02, 2017 11:38
--- NOTE | 2017-03-02 12:33 | CONS ---
Date/Time of Note Date/Time of Note DATE: 03/02/17 TIME: 12:31 Assessment/Plan Assessment/Plan Chief Complaint/Hosp Course SUBJECTIVE: No events, awake, looks comfortable, still confused. MICROBIOLOGY: Pleural fluid cultures remain negative. Bronchoalveolar lavage cultures + yeast. INDWELLINGS: Zeng catheter PICC 03/01 ANTIMICROBIALS: 1. Vancomycin. 2. Meropenem. 3. Fluconazole. PHYSICAL EXAMINATION: GENERAL: This is an ill-appearing, middle-aged white man who is awake, in no distress. HEENT: Head atraumatic, normocephalic. Sclerae anicteric. Buccal mucosa dry. NECK: Supple, trachea midline. CHEST: Rise symmetrical. Breath sounds with scattered rhonchi. HEART: S1, S2. ABDOMEN: Soft. Bowel tones present. EXTREMITIES: With bilateral dependent edema lower extremities. ASSESSMENT: 1. Resolving sepsis 2. Recurrent respiratory failure, status post reintubated and extubated. 3. Pneumonia, s/p bronchoscopy===> BAL cx + yeast. 4. History of Crohn's disease, status post perforated viscus repair. 5. Multiple intraabdominal abscesses===> too small for CT guided drainage 6. Anemia PLAN: The patient remains hemodynamically stable, continue TPN, abx, aspiration precautions, surgical rec-s noted DW staff Problems: Consultation Date/Type/Reason Admit Date/Time Feb 01, 2017 at 03:10 Initial Consult Date 02/02/17 Type of Consultation: id Referring Provider: VINCE PADGETT Exam/Review of Systems Vital Signs Vitals Vital Signs Date Time Temp Pulse Resp B/P Pulse Ox O2 Delivery O2 Flow Rate FiO2 03/02/17 08:22 96 4.0 03/02/17 08:00 98.7 93 25 127/86 Nasal Cannula 03/01/17 13:38 36 Intake and Output 03/01/17 03/01/17 03/02/17 15:00 23:00 07:00 Intake Total 100 ml 1145 ml 600 ml Output Total 420 ml 1625 ml 900 ml Balance -320 ml -480 ml -300 ml Results Result Diagram: 03/02/17 0415 03/02/17 0415 Results 24 hrs Laboratory Tests Test 03/02/17 04:15 03/02/17 07:00 White Blood Count 11.5 H Red Blood Count 2.73 L Hemoglobin 7.6 L Hematocrit 25.1 L Mean Corpuscular Volume 91.9 Mean Corpuscular Hemoglobin 27.8 L Mean Corpuscular Hemoglobin Concent 30.3 L Red Cell Distribution Width 14.6 H Platelet Count 441 H Mean Platelet Volume 11.2 H Neutrophils % 78.9 H Lymphocytes % 6.9 L Monocytes % 9.0 Eosinophils % 3.8 Basophils % 0.4 Nucleated Red Blood Cells % 0.0 Neutrophils # 9.1 H Lymphocytes # 0.8 Monocytes # 1.0 H Eosinophils # 0.4 Basophils # 0.1 Nucleated Red Blood Cells # 0.0 Sodium Level 140 Potassium Level 3.8 Chloride Level 104 Carbon Dioxide Level 31 Anion Gap 9 Blood Urea Nitrogen 12 Creatinine 0.59 L Glucose Level 103 Calcium Level 7.9 L Phosphorus Level 3.5 Magnesium Level 1.3 L Blood Gas Specimen Source Blood arterial Arterial Blood Date Drawn 03/02/2017 7:49:05 AM Arterial Blood pH (Temp corrected) 7.501 H Arterial Blood pCO2 (Temp correct) 41.0 Arterial Blood pO2 (Temp corrected) 88.6 Arterial Blood HCO3 31.3 H Arterial Blood Base Excess 7.5 H Arterial Blood Oxygen Saturation 96.4 Raffy Test ACCEPTAB Arterial Blood Gas Puncture Site Right Radial Arterial Blood Carboxyhemoglobin 0.1 Arterial Blood Methemoglobin 0.1 Blood Gas A-a O2 Differential 98.8 H Oxyhemoglobin Percent 96.2 Total Hemoglobin 11.0 L Blood Gas Temperature 37.0 Blood Gas Modality NASAL CANNULA FiO2 33.0 Blood Gas Notified Whom JLD Blood Gas Notified Time 03/02/2017 8:27:33 AM Medications Medications Current Medications Pantoprazole (Protonix Iv) 40 mg DAILY@06 IV Last administered on 03/02/17 06: 46; Admin Dose 40 MG; Start 02/01/17 at 06:00 Acetaminophen/ Hydrocodone Bitart ([place] (5/325)) 1 tab Q4H PRN PO PAIN LEVEL 4 -7 Last administered on 02/09/17 18:48; Admin Dose 1 TAB; Start 02/01/17 at 20: 30 Acetaminophen/ Hydrocodone Bitart ([place] (5/325)) 2 tab Q4H PRN PO PAIN LEVEL 7 -10; Start 02/01/17 at 20:30 Bisacodyl (Dulcolax Supp) 10 mg BID PRN [place] CONSTIPATION; Start 02/01/17 at 20: 30 Sodium Biphosphate/ Sodium Phosphate (Fleet Enema) 133 ml BID PRN [place] CONSTIPATION; Start 02/01/17 at 20:30 Acetaminophen (Tylenol Liquid) 650 mg Q4H PRN GTB PAIN AND OR ELEVATED TEMP Last administered on 02/27/17 12:37; Admin Dose 650 MG; Start 02/05/17 at 18:30 Salmeterol Xinafoate/ Fluticasone (Advair 250/50 Diskus) 1 inh BID INH Last administered on 02/12/17 09:03; Admin Dose 1 INH; Start 02/07/17 at 11:00; Status Future Hold IV Flush (NS 10 ml) 10 ml PRN PRN IV IV PROTOCOL; Start 02/07/17 at 14:30 Diphenhydramine HCl 25 mg 25 mg Q6H PRN IV itching Last administered on 00:00; Admin Dose 25 MG; Start 02/07/17 at 20:00 Ondansetron HCl/ Sodium Chloride (Zofran Inj/NS) 54 ml @ 216 mls/hr Q6H PRN IV NAUSEA AND/OR VOMITING; Start 02/09/17 at 11:30 Prednisone (Prednisone) 40 mg DAILY PO Last administered on 02/12/17 09:03; Admin Dose 40 MG; Start 02/11/17 at 09:00; Status Future Hold Lorazepam (Ativan) 1 mg Q1HWA PRN IM AGITATION/ANXIETY; Start 02/10/17 at 19:00 Trimethobenzamide HCl (Tigan) 200 mg Q6H PRN IM NAUSEA AND/OR VOMITING; Start 02/10/17 at 19:30 Morphine Sulfate (morphine) 2 mg Q4H PRN IV pain Last administered on 12:41; Admin Dose 2 MG; Start 02/20/17 at 18:30 Docusate Sodium 100 mg 100 mg QHS PRN NGT For Constipation; Start 02/25/17 at 21:00 Meropenem 100 ml @ 200 mls/hr Q8 IVPB Last administered on 03/02/17 06:47; Admin Dose 200 MLS/HR; Start 02/26/17 at 14:00 Fluconazole 100 ml @ 100 mls/hr Q24H IVPB Last administered on 03/01/17 17:10 ; Admin Dose 100 MLS/HR; Start 02/26/17 at 17:00 Vancomycin HCl 250 ml @ 125 mls/hr Q12H IVPB Last administered on 03/02/17 03 :26; Admin Dose 125 MLS/HR; Start 02/27/17 at 03:00 Acetaminophen (Ofirmev 1000mg/ 100ml Iv) 100 ml @ 50 mls/hr Q6H PRN IVPB fever Last administered on 03/01/17 08:55; Admin Dose 50 MLS/HR; Start at 07:30 Furosemide 20 mg 20 mg Q8 IV Last administered on 03/02/17 06:46; Admin Dose 20 MG; Start 03/01/17 at 14:00 Total Parenteral Nutrition (Tpn) 1,000 ml @ 50 mls/hr Q20H IV ; Start 03/02/17 at 14:00 THOMAS ELLIS NP March 02, 2017 12:33
[2017-03-02] MEDS ORDERED: POTASSIUM CHLORIDE (SR) 20 MEQ TAB PO STA (13:07)
--- NOTE | 2017-03-02 13:10 | CONS ---
Date/Time of Note Date/Time of Note DATE: 03/02/17 TIME: 13:08 Assessment/Plan Assessment/Plan Additional Assessment/Plan Perforated colon status post surgery Severe sepsis Respiratory failure-extubated Low normal ejection fraction 50% Acute decompensated diastolic congestive heart failure Crohn's disease Acute blood loss anemia -Lung examination improved, continue IV diuretics as blood pressure and renal function permits. Supplement potassium to maintain above 4.0 and magnesium above 2.0. Consultation Date/Type/Reason Admit Date/Time Feb 01, 2017 at 03:10 Initial Consult Date 02/02/17 Type of Consultation: cv Referring Provider: VINCE PADGETT 24 HR Interval Summary Free Text/Dictation Denies shortness of breath, chest pain, palpitations. Still with episodes of confusion as per nursing staff Exam/Review of Systems Vital Signs Vitals Vital Signs Date Time Temp Pulse Resp B/P Pulse Ox O2 Delivery O2 Flow Rate FiO2 03/02/17 12:00 98.9 101 40 125/85 96 Nasal Cannula 3.0 03/01/17 13:38 36 Intake and Output 03/01/17 03/01/17 03/02/17 15:00 23:00 07:00 Intake Total 100 ml 1145 ml 600 ml Output Total 420 ml 1625 ml 900 ml Balance -320 ml -480 ml -300 ml Exam Confused at times, no apparent distress, following commands Constitutional: alert Head: normocephalic Neck: supple Respiratory: other (Coarse breath sounds bilaterally, no wheezing) Cardiovascular: other (S1-S2 heard), regular rate and rhythm Gastrointestinal: bowel sounds, non-tender, soft Extremities: edema Results Result Diagram: 03/02/17 0415 03/02/17 0415 Results 24 hrs Laboratory Tests Test 03/02/17 04:15 03/02/17 07:00 White Blood Count 11.5 H Red Blood Count 2.73 L Hemoglobin 7.6 L Hematocrit 25.1 L Mean Corpuscular Volume 91.9 Mean Corpuscular Hemoglobin 27.8 L Mean Corpuscular Hemoglobin Concent 30.3 L Red Cell Distribution Width 14.6 H Platelet Count 441 H Mean Platelet Volume 11.2 H Neutrophils % 78.9 H Lymphocytes % 6.9 L Monocytes % 9.0 Eosinophils % 3.8 Basophils % 0.4 Nucleated Red Blood Cells % 0.0 Neutrophils # 9.1 H Lymphocytes # 0.8 Monocytes # 1.0 H Eosinophils # 0.4 Basophils # 0.1 Nucleated Red Blood Cells # 0.0 Sodium Level 140 Potassium Level 3.8 Chloride Level 104 Carbon Dioxide Level 31 Anion Gap 9 Blood Urea Nitrogen 12 Creatinine 0.59 L Glucose Level 103 Calcium Level 7.9 L Phosphorus Level 3.5 Magnesium Level 1.3 L Blood Gas Specimen Source Blood arterial Arterial Blood Date Drawn 03/02/2017 7:49:05 AM Arterial Blood pH (Temp corrected) 7.501 H Arterial Blood pCO2 (Temp correct) 41.0 Arterial Blood pO2 (Temp corrected) 88.6 Arterial Blood HCO3 31.3 H Arterial Blood Base Excess 7.5 H Arterial Blood Oxygen Saturation 96.4 Raffy Test ACCEPTAB Arterial Blood Gas Puncture Site Right Radial Arterial Blood Carboxyhemoglobin 0.1 Arterial Blood Methemoglobin 0.1 Blood Gas A-a O2 Differential 98.8 H Oxyhemoglobin Percent 96.2 Total Hemoglobin 11.0 L Blood Gas Temperature 37.0 Blood Gas Modality NASAL CANNULA FiO2 33.0 Blood Gas Notified Whom JLD Blood Gas Notified Time 03/02/2017 8:27:33 AM Medications Medications Current Medications Pantoprazole (Protonix Iv) 40 mg DAILY@06 IV Last administered on 03/02/17 06: 46; Admin Dose 40 MG; Start 02/01/17 at 06:00 Acetaminophen/ Hydrocodone Bitart ([place] (5/325)) 1 tab Q4H PRN PO PAIN LEVEL 4 -7 Last administered on 02/09/17 18:48; Admin Dose 1 TAB; Start 02/01/17 at 20: 30 Acetaminophen/ Hydrocodone Bitart ([place] (5/325)) 2 tab Q4H PRN PO PAIN LEVEL 7 -10; Start 02/01/17 at 20:30 Bisacodyl (Dulcolax Supp) 10 mg BID PRN [place] CONSTIPATION; Start 02/01/17 at 20: 30 Sodium Biphosphate/ Sodium Phosphate (Fleet Enema) 133 ml BID PRN [place] CONSTIPATION; Start 02/01/17 at 20:30 Acetaminophen (Tylenol Liquid) 650 mg Q4H PRN GTB PAIN AND OR ELEVATED TEMP Last administered on 02/27/17 12:37; Admin Dose 650 MG; Start 02/05/17 at 18:30 Salmeterol Xinafoate/ Fluticasone (Advair 250/50 Diskus) 1 inh BID INH Last administered on 02/12/17 09:03; Admin Dose 1 INH; Start 02/07/17 at 11:00; Status Future Hold IV Flush (NS 10 ml) 10 ml PRN PRN IV IV PROTOCOL; Start 02/07/17 at 14:30 Diphenhydramine HCl 25 mg 25 mg Q6H PRN IV itching Last administered on 00:00; Admin Dose 25 MG; Start 02/07/17 at 20:00 Ondansetron HCl/ Sodium Chloride (Zofran Inj/NS) 54 ml @ 216 mls/hr Q6H PRN IV NAUSEA AND/OR VOMITING; Start 02/09/17 at 11:30 Prednisone (Prednisone) 40 mg DAILY PO Last administered on 02/12/17 09:03; Admin Dose 40 MG; Start 02/11/17 at 09:00; Status Future Hold Lorazepam (Ativan) 1 mg Q1HWA PRN IM AGITATION/ANXIETY; Start 02/10/17 at 19:00 Trimethobenzamide HCl (Tigan) 200 mg Q6H PRN IM NAUSEA AND/OR VOMITING; Start 02/10/17 at 19:30 Morphine Sulfate (morphine) 2 mg Q4H PRN IV pain Last administered on 12:41; Admin Dose 2 MG; Start 02/20/17 at 18:30 Docusate Sodium 100 mg 100 mg QHS PRN NGT For Constipation; Start 02/25/17 at 21:00 Meropenem 100 ml @ 200 mls/hr Q8 IVPB Last administered on 03/02/17 06:47; Admin Dose 200 MLS/HR; Start 02/26/17 at 14:00 Fluconazole 100 ml @ 100 mls/hr Q24H IVPB Last administered on 03/01/17 17:10 ; Admin Dose 100 MLS/HR; Start 02/26/17 at 17:00 Vancomycin HCl 250 ml @ 125 mls/hr Q12H IVPB Last administered on 03/02/17 03 :26; Admin Dose 125 MLS/HR; Start 02/27/17 at 03:00 Acetaminophen (Ofirmev 1000mg/ 100ml Iv) 100 ml @ 50 mls/hr Q6H PRN IVPB fever Last administered on 03/01/17 08:55; Admin Dose 50 MLS/HR; Start at 07:30 Furosemide 20 mg 20 mg Q8 IV Last administered on 03/02/17 06:46; Admin Dose 20 MG; Start 03/01/17 at 14:00 Total Parenteral Nutrition (Tpn) 1,000 ml @ 50 mls/hr Q20H IV ; Start 03/02/17 at 14:00 Keith Gandhi DO March 02, 2017 13:10
[2017-03-02] MEDS ORDERED: HALOPERIDOL 5 MG INJ IM SCH (14:00)
[2017-03-02] MEDS ORDERED: MAGNESIUM SULFATE 4 GM/100 ML 100 ML IVPB ONE (14:30)
--- NOTE | 2017-03-02 16:34 | PN ---
Date/Time of Note Date/Time of Note DATE: 03/02/17 TIME: 16:31 Assessment/Plan VTE Prophylaxis VTE Prophylaxis Intervention: SCD's Lines/Catheters IV [facility] ([facility]): PICC Line Central line still needed: Yes Urinary Cath still in place: Yes Reason Cath still needed: urinary retention Assessment/Plan Assessment/Plan Perforated sigmoid colon * Laparoscopic exploration,open sigmoid colectomy with Deena end colostomy with liver biopsy segment V h/o Crohn's disease Respiratory failure secondary resolving Thrombocytopenia Liver Cirrhosis Anemia hemoglobin Atelectasis,compressive managed by pulmonary Plan Continue present management Will reevaluate for Crohn's disease once recovered from surgery Subjective 24 Hr Interval Summary Free Text/Dictation * Course reviewed with RN * Patient seen and examined * still confused * Hemoglobin 7.6 Exam/Review of Systems Vital Signs Vitals Vital Signs Date Time Temp Pulse Resp B/P Pulse Ox O2 Delivery O2 Flow Rate FiO2 03/02/17 16:00 98.3 104 27 121/82 97 Nasal Cannula 3.0 03/01/17 13:38 36 Intake and Output 03/01/17 03/01/17 03/02/17 14:59 22:59 06:59 Intake Total 350 ml 995 ml 750 ml Output Total 455 ml 1315 ml 1250 ml Balance -105 ml -320 ml -500 ml Exam Constitutional: frail Neck: non-tender, supple Respiratory: clear to auscultation, diminished breath sounds, normal air movement Cardiovascular: nl pulses, regular rate and rhythm Gastrointestinal: non-tender, other (colostomy), soft Musculoskeletal: nl extremities to inspection Results Result Diagram: 03/02/17 0415 03/02/17 0415 Results 24 hrs Laboratory Tests Test 03/02/17 04:15 03/02/17 07:00 White Blood Count 11.5 H Red Blood Count 2.73 L Hemoglobin 7.6 L Hematocrit 25.1 L Mean Corpuscular Volume 91.9 Mean Corpuscular Hemoglobin 27.8 L Mean Corpuscular Hemoglobin Concent 30.3 L Red Cell Distribution Width 14.6 H Platelet Count 441 H Mean Platelet Volume 11.2 H Neutrophils % 78.9 H Lymphocytes % 6.9 L Monocytes % 9.0 Eosinophils % 3.8 Basophils % 0.4 Nucleated Red Blood Cells % 0.0 Neutrophils # 9.1 H Lymphocytes # 0.8 Monocytes # 1.0 H Eosinophils # 0.4 Basophils # 0.1 Nucleated Red Blood Cells # 0.0 Sodium Level 140 Potassium Level 3.8 Chloride Level 104 Carbon Dioxide Level 31 Anion Gap 9 Blood Urea Nitrogen 12 Creatinine 0.59 L Glucose Level 103 Calcium Level 7.9 L Phosphorus Level 3.5 Magnesium Level 1.3 L Blood Gas Specimen Source Blood arterial Arterial Blood Date Drawn 03/02/2017 7:49:05 AM Arterial Blood pH (Temp corrected) 7.501 H Arterial Blood pCO2 (Temp correct) 41.0 Arterial Blood pO2 (Temp corrected) 88.6 Arterial Blood HCO3 31.3 H Arterial Blood Base Excess 7.5 H Arterial Blood Oxygen Saturation 96.4 Raffy Test ACCEPTAB Arterial Blood Gas Puncture Site Right Radial Arterial Blood Carboxyhemoglobin 0.1 Arterial Blood Methemoglobin 0.1 Blood Gas A-a O2 Differential 98.8 H Oxyhemoglobin Percent 96.2 Total Hemoglobin 11.0 L Blood Gas Temperature 37.0 Blood Gas Modality NASAL CANNULA FiO2 33.0 Blood Gas Notified Whom JLD Blood Gas Notified Time 03/02/2017 8:27:33 AM Medications Medications Current Medications Pantoprazole (Protonix Iv) 40 mg DAILY@06 IV Last administered on 03/02/17 06: 46; Admin Dose 40 MG; Start 02/01/17 at 06:00 Acetaminophen/ Hydrocodone Bitart ([place] (5/325)) 1 tab Q4H PRN PO PAIN LEVEL 4 -7 Last administered on 02/09/17 18:48; Admin Dose 1 TAB; Start 02/01/17 at 20: 30 Acetaminophen/ Hydrocodone Bitart ([place] (5/325)) 2 tab Q4H PRN PO PAIN LEVEL 7 -10; Start 02/01/17 at 20:30 Bisacodyl (Dulcolax Supp) 10 mg BID PRN [place] CONSTIPATION; Start 02/01/17 at 20: 30 Sodium Biphosphate/ Sodium Phosphate (Fleet Enema) 133 ml BID PRN [place] CONSTIPATION; Start 02/01/17 at 20:30 Acetaminophen (Tylenol Liquid) 650 mg Q4H PRN GTB PAIN AND OR ELEVATED TEMP Last administered on 02/27/17 12:37; Admin Dose 650 MG; Start 02/05/17 at 18:30 Salmeterol Xinafoate/ Fluticasone (Advair 250/50 Diskus) 1 inh BID INH Last administered on 02/12/17 09:03; Admin Dose 1 INH; Start 02/07/17 at 11:00; Status Future Hold IV Flush (NS 10 ml) 10 ml PRN PRN IV IV PROTOCOL; Start 02/07/17 at 14:30 Diphenhydramine HCl 25 mg 25 mg Q6H PRN IV itching Last administered on 00:00; Admin Dose 25 MG; Start 02/07/17 at 20:00 Ondansetron HCl/ Sodium Chloride (Zofran Inj/NS) 54 ml @ 216 mls/hr Q6H PRN IV NAUSEA AND/OR VOMITING; Start 02/09/17 at 11:30 Prednisone (Prednisone) 40 mg DAILY PO Last administered on 02/12/17 09:03; Admin Dose 40 MG; Start 02/11/17 at 09:00; Status Future Hold Lorazepam (Ativan) 1 mg Q1HWA PRN IM AGITATION/ANXIETY; Start 02/10/17 at 19:00 Trimethobenzamide HCl (Tigan) 200 mg Q6H PRN IM NAUSEA AND/OR VOMITING; Start 02/10/17 at 19:30 Morphine Sulfate (morphine) 2 mg Q4H PRN IV pain Last administered on 12:41; Admin Dose 2 MG; Start 02/20/17 at 18:30 Docusate Sodium 100 mg 100 mg QHS PRN NGT For Constipation; Start 02/25/17 at 21:00 Meropenem 100 ml @ 200 mls/hr Q8 IVPB Last administered on 03/02/17 13:42; Admin Dose 200 MLS/HR; Start 02/26/17 at 14:00 Fluconazole 100 ml @ 100 mls/hr Q24H IVPB Last administered on 03/01/17 17:10 ; Admin Dose 100 MLS/HR; Start 02/26/17 at 17:00 Vancomycin HCl 250 ml @ 125 mls/hr Q12H IVPB Last administered on 03/02/17 15 :35; Admin Dose 125 MLS/HR; Start 02/27/17 at 03:00 Acetaminophen (Ofirmev 1000mg/ 100ml Iv) 100 ml @ 50 mls/hr Q6H PRN IVPB fever Last administered on 03/01/17 08:55; Admin Dose 50 MLS/HR; Start at 07:30 Furosemide 20 mg 20 mg Q8 IV Last administered on 03/02/17 14:56; Admin Dose 20 MG; Start 03/01/17 at 14:00 Total Parenteral Nutrition 1,000 ml @ 50 mls/hr Q20H IV Last administered on 14:56; Admin Dose 50 MLS/HR; Start 03/02/17 at 14:00 Magnesium Sulfate (Magnesium Sulfate 4 Gm/100 ml) 100 ml @ 25 mls/hr ONCE ONCE IVPB ; Start 03/02/17 at 14:30; Stop 03/02/17 at 18:29 Miscellaneous Information (*Rx Drug Level Order Reminder*) 1 ONCE ONCE XX ; Start 03/03/17 at 02:00; Stop 03/03/17 at 02:01 SANDRA DAVIS MD March 02, 2017 16:34
--- NOTE | 2017-03-02 16:44 | PN ---
Date/Time of Note Date/Time of Note DATE: 03/02/17 TIME: 16:38 Assessment/Plan Lines/Catheters IV Catheter Type (from Nrsg): PICC Line Zeng in Place (from Nrsg): Yes Assessment/Plan Assessment/Plan [facility] Progress Note Date of Service: 03/02/17 Today's Impression & Plan: Overall stable. Remains extubated and so far no major pulmonary issues noted or reported. Significantly confused, but interestingly is oriented to person, year and president (not to place or reason for being in the hospital). Abd remains benign. No evidence for peritonitis or major symptomatic abscess. Ostomy still pink and viable and productive, although amounts are low. Still not clear why he is failing to thrive and having [employer] issues. Remains high risk for complication given perforated colon in the setting of uncontrolled Crohn's. Recovery will take extra time with likely need for rehab. With above assessment, I've recommended the following for today: 1. Cont current cares in ICU 2. F/u on cultures 3. Cont TPN 4. Pulmonary toilet 5. Cont gentle diuresis to BMP < 200 6. Social work and case management to please start working on possible rehab vs. home health nurse set up 7. Increase activity 8. Increase ICS 9. Wean off broad spec antimicrobials 10. Labs in am 11. Cont current wound care with wound vac 12. Consider hematology consultation and send peripheral smear 13. Add LFT's to tomorrow's labs 14. May consider brain MRI 15. Please resume prophylactic anticoagulation (no contraindication from surgical standpoint) Thank you again for your great care of this very pleasant patient and wonderful family. If there are any questions, please feel free to call me at [phone]. TOTAL VISIT TIME: 20 minutes of which more than half was spent in [id number] discussion with the patient, possibly including family, as well as coordination of care between multiple physicians and providers. Disclaimer: Inadvertent spelling or grammatical errors are likely due to EHR/ dictation software use and do not reflect on the overall quality of patient care. Updated Clinical Summary: A very pleasant 46-year-old gentleman with history of Crohn's disease as well as prior surgery for anal fistula approximately 5 years ago, and a torn meniscus repair on the left knee, presenting with abdominal pain associated with a few weeks' duration of diarrhea. S/p an otherwise uncomplicated diagnostic laparoscopy was converted first to hand assist and then to open exploration when perforated sigmoid colon was found and it was resected with a Deena type procedure and end colostomy as well as core needle liver biopsy, segment 5, due to presence of fatty liver disease, lysis of adhesions, and abdominal lavage on 02/01/17. Failed to wean off the vent through 02/06/17. PE was evaluated 02/07/[address] angio and no evidence found. CT abd/pelvis also did not show actionable findings (no abscess; bowel thickening somewhat expected). Extubated 02/07/17. [employer] called early am 02/13/17 with a few minutes coding, requiring intubation and transfer to ICU. Fortunately, mentally appears to be intact and not on pressors. Lactic acid and CO2 normal with benign appearing abd and viable ostomy. Complicated by fascia dehiscence. S/p exploration of abdomen through recent laparotomy, primary closure of fascia and abdominal lavage on 02/15/17. Reintubated 02/25/17 for bronchoscopy to remove mucus plug. Extubated 02/28/17. COMORBIDITIES: 1. Crohn disease with perforation of sigmoid colon and sepsis. S/p an otherwise uncomplicated diagnostic laparoscopy was converted first to hand assist and then to open exploration when perforated sigmoid colon was found and it was resected with a Deena type procedure and end colostomy as well as core needle liver biopsy, segment 5, due to presence of fatty liver disease, lysis of adhesions, and abdominal lavage on 02/01/17. Complicated by respiratory failure, return trip to ICU and fascia dehiscence. S/p exploration of abdomen through recent laparotomy, primary closure of fascia and abdominal lavage on 02/15. 2. Repair of a fistula approximately 5 years ago. 3. Torn meniscus on the left knee status post repair. Subjective: No major events overnight; no major complaints; no major SOB and no CP; + BM Objective: Vitals: See below Exam: GENERAL: On exam, the patient was laying in bed and appeared to be comfortable and in no acute distress. On the vent. ABDOMEN: Soft, nontender and nondistended. Incision wound vac dressings are clean without any evidence of obvious erythema, edema, discharge, or hernia. Wound vac with no sig drainage. Surgery drain site clean. Ostomy pink and viable ; some air and stool in the bag. There are no peritoneal signs or guarding. SKIN: Skin appears to be pink and feels warm to touch. NEUROLOGIC: Patient is awake, alert and does not follow commands appropriately. Significantly confused and speaking in comprehensible but non-sense terms, but interestingly is oriented to person, year and president (not to place or reason for being in the hospital). Exam/Review of Systems Vital Signs Vitals Vital Signs Date Time Temp Pulse Resp B/P Pulse Ox O2 Delivery O2 Flow Rate FiO2 03/02/17 16:00 98.3 104 27 121/82 97 Nasal Cannula 3.0 03/01/17 13:38 36 Intake and Output 03/01/17 03/01/17 03/02/17 15:00 23:00 07:00 Intake Total 100 ml 1145 ml 650 ml Output Total 420 ml 1625 ml 900 ml Balance -320 ml -480 ml -250 ml Results Result Diagram: 03/02/17 0415 03/02/17 0415 TI HILTON M.D. March 02, 2017 16:44
[2017-03-02] MEDS: FLUCONAZOLE 200 MG/NS (PMX) 100 ML IVPB SCH (17:40)
[2017-03-03] VITALS (24 sets, daily range): BP systolic 110–140; BP diastolic 71–108; PULSE 89–109; RESP 16–36
[2017-03-03] MEDS: ALBUTEROL/IPRATROPIUM (NEB) 3 ML AMP HHN SCH ×4 (01:42→19:26)
[2017-03-03] MEDS: ACETYLCYSTEINE 20% 4 ML VIAL NEB SCH ×4 (01:42→19:32)
[2017-03-03] MEDS: VANCOMYCIN 1 GM in NS 250 ML IVPB SCH (03:27)
[2017-03-03 05:40] LABS: ADD SCAN DIFF NO
[2017-03-03 06:03] LABS: BASOPHIL # 0.1 10^3/ul (0.0-0.1); BASOPHILS % 0.4 % (0.0-2.0); EOSINOPHILS # 0.5 10^3/ul (0.0-0.5); EOSINOPHILS % 4.6 % (0.0-7.0); HEMATOCRIT 25.7 % (42.0-52.0); HEMOGLOBIN 7.9 g/dl (14.0-18.0); LYMPHOCYTES # 0.9 10^3/ul (0.8-2.9); LYMPHOCYTES % 7.6 % (15.0-51.0); MEAN CORPUSCULAR HEMOGLOBIN 27.8 pg (29.0-33.0); MEAN CORPUSCULAR HGB CONC 30.7 g/dl (32.0-37.0); MEAN CORPUSCULAR VOLUME 90.5 fl (82.0-101.0); MEAN PLATELET VOLUME 10.7 fl (7.4-10.4); MONOCYTES % 8.4 % (0.0-11.0); NEUTROPHIL # 8.8 10^3/ul (1.6-7.5); NEUTROPHILS % 77.3 % (39.0-77.0); PLATELET COUNT 435 10^3/UL (140-415); RED BLOOD COUNT 2.84 10^6/ul (4.70-6.10); RED CELL DISTRIBUTION WIDTH 14.4 % (11.5-14.5); WHITE BLOOD COUNT 11.4 10^3/ul (4.8-10.8)
[2017-03-03 06:05] LABS: MAGNESIUM 1.9 mg/dl (1.7-2.5); PHOSPHORUS 3.6 mg/dl (2.5-4.9); POTASSIUM 3.6 mmol/L (3.5-5.1)
[2017-03-03 06:07] LABS: CREATININE 0.6 mg/dl (0.61-1.24)
[2017-03-03 06:08] LABS: CALCIUM 8.4 mg/dl (8.4-10.2)
[2017-03-03] MEDS: PANTOPRAZOLE 40 MG INJ IV SCH (06:32)
[2017-03-03] MEDS: FUROSEMIDE 20 MG INJ IV SCH ×2 (06:32→14:04)
[2017-03-03] MEDS: MEROPENEM 1 GM/100 ML (PMX) 100 ML IVPB SCH ×3 (06:33→22:05)
[2017-03-03] MEDS: ENOXAPARIN 40 MG/0.4 ML SYG SC SCH (08:42)
[2017-03-03] MEDS: TPN 1,000 ML IV SCH (09:56)
--- NOTE | 2017-03-03 10:16 | PN ---
Date/Time of Note Date/Time of Note DATE: 03/03/17 TIME: 10:09 Assessment/Plan VTE Prophylaxis VTE Prophylaxis Intervention: LMWH Lines/Catheters IV Catheter Type (from Nrs): PICC Line Central line still needed: Yes Urinary Cath still in place: Yes Reason Cath still needed: other (indicate) (Severe debility) Assessment/Plan Assessment/Plan 1. Perforated sigmoid colon 2/2 Severe Crohn's colitis * S/p Urgent Open Cronin's procedure with end colostomy, liver biopsy and abdominal lavage 02/01/17P * S/p post operative paracolic abscess drained via CT 02/14/[address] * S/p Exploration of abdomen through recent laparotomy site with closure of fascia done 02/15/17 for Fascia dehiscence 2. Recurrent Resp failure: Extubated then reintubated 02/13, extubated, then reintubated 02/25/17, then extubated 02/27 * Status post bronchoscopy with clearance of extensive secretions in the left mainstem bronchus with improved aeration radiographically 02/25 * Pulm concerned about possible neuromuscular injury contributing to recurrent resp failure 3. Exacerbation of Crohn's disease with acute colitis and diarrhea Cultures earlier were growing ecoli / proteus / enterococcus 4. Multifocal PNA + Mook Pleural effusions - Effusions likely hydrostatic from hypoalbuminemia. + fevers - monitor, ID managing abx and antifungal 5. Severe Sepsis with lactic acidosis 2/2 severe colitis / PNA - now with fevers again though last episode was >24hrs ago, back on abx. - CT A/P showing new multiple abscesses / infection not likely from these per surgery - Continue abx per ID 6. S/p Systemic shock (hypovolemic +septic) - again, see # 5, abx: Resolved 7. TPN therapy for low prealbumin + tube feeds 8. Hx of heavy alcohol and tobacco use just until admission - monitor 9. Probable underlying COPD and Cirrhosis based on hx which explains hypoalbuminemia and anasarca - monitor 10. Severe recurrent anemia likely 2/2 occult blood loss from multiple sources : PRN transfusions 11. Hypomagnesemia - replete as needed 12. TPN therapy: patient is not eating very well yet, begin weaning when appetite improved. 13. Encephalopathy / Confusion : patient may have suffered some anoxic brain insult during the course of his hospitalization / May improve / continue restraints for now as needed/ will start low dose seroquel when less of an aspiration risk. Dispo: Patient is stable to transfer now to telemetry if okay with pulmonary. CRITICAL CARE TIME: >35 mins Subjective 24 Hr Interval Summary Free Text/Dictation Patient is looking much better today. Still having a wet cough. Currently undergoing chest PT. Seems to be able to cough just a little bit better. Exam/Review of Systems Vital Signs Vitals Vital Signs Date Time Temp Pulse Resp B/P Pulse Ox O2 Delivery O2 Flow Rate FiO2 03/03/17 09:00 104 35 117/85 99 Nasal Cannula 3.0 03/03/17 08:45 98.8 03/03/17 08:00 32 Intake and Output 03/02/17 03/02/17 03/03/17 15:00 23:00 07:00 Intake Total 850 ml 800.0 ml 625 ml Output Total 1360 ml 2240 ml 1710 ml Balance -510 ml -1440.0 ml -1085 ml Exam Constitutional: extubated, awake, confused, less lethargic, and more cooperative. Head: normocephalic Eyes: PERRL, icteric Respiratory: some diminished breath sounds, No wheezing Cardiovascular: regular rate and rhythm, No murmurs/extra sounds Gastrointestinal: other (midline surgical dressing with wound vac / L sided colostomy and drain / colostomy has dark green fluidy stool), soft otherwise Genitourinary - Male: other (significant scrotal and penile edema) Musculoskeletal: swelling (generalized severe anasarca) Extremities: + pitting pedal edema Neurological: Lethargic Results Result Diagram: 03/03/1730 03/03/17 0530 Results 24 hrs Laboratory Tests Test 03/03/17 02:00 03/03/17 05:30 03/03/17 09:31 Vancomycin Level Trough 18.6 White Blood Count 11.4 H Red Blood Count 2.84 L Hemoglobin 7.9 L Hematocrit 25.7 L Mean Corpuscular Volume 90.5 Mean Corpuscular Hemoglobin 27.8 L Mean Corpuscular Hemoglobin Concent 30.7 L Red Cell Distribution Width 14.4 Platelet Count 435 H Mean Platelet Volume 10.7 H Neutrophils % 77.3 H Lymphocytes % 7.6 L Monocytes % 8.4 Eosinophils % 4.6 Basophils % 0.4 Nucleated Red Blood Cells % 0.0 Neutrophils # 8.8 H Lymphocytes # 0.9 Monocytes # 1.0 H Eosinophils # 0.5 Basophils # 0.1 Nucleated Red Blood Cells # 0.0 Sodium Level 140 Potassium Level 3.6 Chloride Level 100 Carbon Dioxide Level 31 Anion Gap 13 Blood Urea Nitrogen 13 Creatinine 0.60 L Glucose Level 111 Calcium Level 8.4 Phosphorus Level 3.6 Magnesium Level 1.9 Lab Scanned Report REFERENCE LAB Medications Medications Current Medications Pantoprazole (Protonix Iv) 40 mg DAILY@06 IV Last administered on 03/03/17 06: 32; Admin Dose 40 MG; Start 02/01/17 at 06:00 Acetaminophen/ Hydrocodone Bitart ([place] (5/325)) 1 tab Q4H PRN PO PAIN LEVEL 4 -7 Last administered on 02/09/17 18:48; Admin Dose 1 TAB; Start 02/01/17 at 20: 30 Acetaminophen/ Hydrocodone Bitart ([place] (5/325)) 2 tab Q4H PRN PO PAIN LEVEL 7 -10; Start 02/01/17 at 20:30 Bisacodyl (Dulcolax Supp) 10 mg BID PRN [place] CONSTIPATION; Start 02/01/17 at 20: 30 Sodium Biphosphate/ Sodium Phosphate (Fleet Enema) 133 ml BID PRN [place] CONSTIPATION; Start 02/01/17 at 20:30 Acetaminophen (Tylenol Liquid) 650 mg Q4H PRN GTB PAIN AND OR ELEVATED TEMP Last administered on 02/27/17 12:37; Admin Dose 650 MG; Start 02/05/17 at 18:30 Salmeterol Xinafoate/ Fluticasone (Advair 250/50 Diskus) 1 inh BID INH Last administered on 02/12/17 09:03; Admin Dose 1 INH; Start 02/07/17 at 11:00; Status Future Hold IV Flush (NS 10 ml) 10 ml PRN PRN IV IV PROTOCOL; Start 02/07/17 at 14:30 Diphenhydramine HCl 25 mg 25 mg Q6H PRN IV itching Last administered on 00:00; Admin Dose 25 MG; Start 02/07/17 at 20:00 Ondansetron HCl/ Sodium Chloride (Zofran Inj/NS) 54 ml @ 216 mls/hr Q6H PRN IV NAUSEA AND/OR VOMITING; Start 02/09/17 at 11:30 Prednisone (Prednisone) 40 mg DAILY PO Last administered on 02/12/17 09:03; Admin Dose 40 MG; Start 02/11/17 at 09:00; Status Future Hold Lorazepam (Ativan) 1 mg Q1HWA PRN IM AGITATION/ANXIETY; Start 02/10/17 at 19:00 Trimethobenzamide HCl (Tigan) 200 mg Q6H PRN IM NAUSEA AND/OR VOMITING; Start 02/10/17 at 19:30 Morphine Sulfate (morphine) 2 mg Q4H PRN IV pain Last administered on 12:41; Admin Dose 2 MG; Start 02/20/17 at 18:30 Docusate Sodium 100 mg 100 mg QHS PRN NGT For Constipation; Start 02/25/17 at 21:00 Meropenem 100 ml @ 200 mls/hr Q8 IVPB Last administered on 03/03/17 06:33; Admin Dose 200 MLS/HR; Start 02/26/17 at 14:00 Fluconazole 100 ml @ 100 mls/hr Q24H IVPB Last administered on 03/02/17 17:40 ; Admin Dose 100 MLS/HR; Start 02/26/17 at 17:00 Acetaminophen (Ofirmev 1000mg/ 100ml Iv) 100 ml @ 50 mls/hr Q6H PRN IVPB fever Last administered on 03/01/17 08:55; Admin Dose 50 MLS/HR; Start at 07:30 Furosemide 20 mg 20 mg Q8 IV Last administered on 03/03/17 06:32; Admin Dose 20 MG; Start 03/01/17 at 14:00 Total Parenteral Nutrition (Tpn) 1,000 ml @ 50 mls/hr Q20H IV Last administered on 03/03/17 09:56; Admin Dose 50 MLS/HR; Start 03/02/17 at 14:00 Enoxaparin Sodium 40 mg 40 mg DAILY SC Last administered on 03/03/17 08:42; Admin Dose 40 MG; Start 03/03/17 at 09:00 Vancomycin HCl/ Sodium Chloride (Vancocin/NS) 150 ml @ 75 mls/hr Q12H IVPB ; Start 03/03/17 at 15:00 Procedures Procedures PROCEDURE: XR Chest 1 View. CLINICAL INDICATION: Shortness of breath TECHNIQUE: AP view of the chest was obtained. COMPARISON: Yesterday FINDINGS: The cardiomediastinal silhouette is within normal limits. Right-sided PICC line is stable. Central pulmonary vascular congestion and interstitial prominence in both lungs is unchanged. Left mid and lower lung infiltrates combined with small pleural effusion are unchanged. Right basilar atelectasis versus mild infiltrates and small right pleural effusion are stable. The osseous structures are unchanged. IMPRESSION: Stable mild central pulmonary vascular congestion and interstitial prominence in both lungs. Stable left mid and lower lung infiltrates, combined with small pleural effusion. Stable right basilar atelectasis versus infiltrates, combined with small pleural effusion. RPTAT: AA .Schuyler Ugalde MD, Date Time Electronically viewed and signed by .Schuyler Ugalde MD, on 03/02/2017 08:31 .P/ CC: RICHAR ADRIAN BOLATITO M. March 03, 2017 10:16
--- NOTE | 2017-03-03 10:42 | CONS ---
Date/Time of Note Date/Time of Note DATE: 03/03/17 TIME: 10:39 Assessment/Plan Assessment/Plan Additional Assessment/Plan Assessment recommendations; 1. Patient admitted for acute diverticulitis with rupture requiring a laparoscopic sigmoid resection with colostomy. 2. Postop respiratory failure requiring intubation again for complete left lung atelectasis with marked radiological improvement outpatient no successfully extubated several days ago. 3. Pneumonia. 4. In-hospital psychosis with very gradual clinical improvement. 5. Anemia. Continue current supportive care. Consultation Date/Type/Reason Admit Date/Time Feb 01, 2017 at 03:10 Initial Consult Date 02/02/17 Type of Consultation: Pulmonary/critical care Referring Provider: VINCE PADGETT 24 HR Interval Summary Free Text/Dictation Patient condition is gradually improving although very slowly. Patient seems less confused today. Answering questions appropriately. Denies any shortness of breath, abdominal pain, nausea vomiting. General exam; young male, awake alert currently in no distress. Exam/Review of Systems Vital Signs Vitals Vital Signs Date Time Temp Pulse Resp B/P Pulse Ox O2 Delivery O2 Flow Rate FiO2 03/03/17 09:00 104 35 117/85 99 Nasal Cannula 3.0 03/03/17 08:45 98.8 03/03/17 08:00 32 Intake and Output 03/02/17 03/02/17 03/03/17 15:00 23:00 07:00 Intake Total 850 ml 800.0 ml 625 ml Output Total 1360 ml 2240 ml 1710 ml Balance -510 ml -1440.0 ml -1085 ml Exam HEENT examination; supple neck, no JVD. No lymphadenopathy. Midline trachea. No thyromegaly. Patient has fair dentition. Pupils are small bilaterally. Chest examination; clear to auscultation. S1-S2 audible, no murmurs. Regular rhythm. Abdomen examination; soft, no organomegaly. There is a well-healed midline incision. Colostomy in place. Bowel sounds audible. Extremity examination; no peripheral edema. Pulses 1+ bilaterally. ACUTE CARE SURGEON examination; no focal motor deficit. Results Result Diagram: 03/03/17 0530 03/03/17 0530 Results 24 hrs Laboratory Tests Test 03/03/17 02:00 03/03/17 05:30 03/03/17 09:31 Vancomycin Level Trough 18.6 White Blood Count 11.4 H Red Blood Count 2.84 L Hemoglobin 7.9 L Hematocrit 25.7 L Mean Corpuscular Volume 90.5 Mean Corpuscular Hemoglobin 27.8 L Mean Corpuscular Hemoglobin Concent 30.7 L Red Cell Distribution Width 14.4 Platelet Count 435 H Mean Platelet Volume 10.7 H Neutrophils % 77.3 H Lymphocytes % 7.6 L Monocytes % 8.4 Eosinophils % 4.6 Basophils % 0.4 Nucleated Red Blood Cells % 0.0 Neutrophils # 8.8 H Lymphocytes # 0.9 Monocytes # 1.0 H Eosinophils # 0.5 Basophils # 0.1 Nucleated Red Blood Cells # 0.0 Sodium Level 140 Potassium Level 3.6 Chloride Level 100 Carbon Dioxide Level 31 Anion Gap 13 Blood Urea Nitrogen 13 Creatinine 0.60 L Glucose Level 111 Calcium Level 8.4 Phosphorus Level 3.6 Magnesium Level 1.9 Lab Scanned Report REFERENCE LAB Medications Medications Current Medications Pantoprazole (Protonix Iv) 40 mg DAILY@06 IV Last administered on 03/03/17 06: 32; Admin Dose 40 MG; Start 02/01/17 at 06:00 Acetaminophen/ Hydrocodone Bitart ([place] (5/325)) 1 tab Q4H PRN PO PAIN LEVEL 4 -7 Last administered on 02/09/17 18:48; Admin Dose 1 TAB; Start 02/01/17 at 20: 30 Acetaminophen/ Hydrocodone Bitart ([place] (5/325)) 2 tab Q4H PRN PO PAIN LEVEL 7 -10; Start 02/01/17 at 20:30 Bisacodyl (Dulcolax Supp) 10 mg BID PRN [place] CONSTIPATION; Start 02/01/17 at 20: 30 Sodium Biphosphate/ Sodium Phosphate (Fleet Enema) 133 ml BID PRN [place] CONSTIPATION; Start 02/01/17 at 20:30 Acetaminophen (Tylenol Liquid) 650 mg Q4H PRN GTB PAIN AND OR ELEVATED TEMP Last administered on 02/27/17 12:37; Admin Dose 650 MG; Start 02/05/17 at 18:30 Salmeterol Xinafoate/ Fluticasone (Advair 250/50 Diskus) 1 inh BID INH Last administered on 02/12/17 09:03; Admin Dose 1 INH; Start 02/07/17 at 11:00; Status Future Hold IV Flush (NS 10 ml) 10 ml PRN PRN IV IV PROTOCOL; Start 02/07/17 at 14:30 Diphenhydramine HCl 25 mg 25 mg Q6H PRN IV itching Last administered on 00:00; Admin Dose 25 MG; Start 02/07/17 at 20:00 Ondansetron HCl/ Sodium Chloride (Zofran Inj/NS) 54 ml @ 216 mls/hr Q6H PRN IV NAUSEA AND/OR VOMITING; Start 02/09/17 at 11:30 Prednisone (Prednisone) 40 mg DAILY PO Last administered on 02/12/17 09:03; Admin Dose 40 MG; Start 02/11/17 at 09:00; Status Future Hold Lorazepam (Ativan) 1 mg Q1HWA PRN IM AGITATION/ANXIETY; Start 02/10/17 at 19:00 Trimethobenzamide HCl (Tigan) 200 mg Q6H PRN IM NAUSEA AND/OR VOMITING; Start 02/10/17 at 19:30 Morphine Sulfate (morphine) 2 mg Q4H PRN IV pain Last administered on 12:41; Admin Dose 2 MG; Start 02/20/17 at 18:30 Docusate Sodium 100 mg 100 mg QHS PRN NGT For Constipation; Start 02/25/17 at 21:00 Meropenem 100 ml @ 200 mls/hr Q8 IVPB Last administered on 03/03/17 06:33; Admin Dose 200 MLS/HR; Start 02/26/17 at 14:00 Fluconazole 100 ml @ 100 mls/hr Q24H IVPB Last administered on 03/02/17 17:40 ; Admin Dose 100 MLS/HR; Start 02/26/17 at 17:00 Acetaminophen (Ofirmev 1000mg/ 100ml Iv) 100 ml @ 50 mls/hr Q6H PRN IVPB fever Last administered on 03/01/17 08:55; Admin Dose 50 MLS/HR; Start at 07:30 Furosemide 20 mg 20 mg Q8 IV Last administered on 03/03/17 06:32; Admin Dose 20 MG; Start 03/01/17 at 14:00 Total Parenteral Nutrition (Tpn) 1,000 ml @ 50 mls/hr Q20H IV Last administered on 03/03/17 09:56; Admin Dose 50 MLS/HR; Start 03/02/17 at 14:00 Enoxaparin Sodium 40 mg 40 mg DAILY SC Last administered on 03/03/17 08:42; Admin Dose 40 MG; Start 03/03/17 at 09:00 Vancomycin HCl/ Sodium Chloride (Vancocin/NS) 150 ml @ 75 mls/hr Q12H IVPB ; Start 03/03/17 at 15:00 RICHAR ADRIAN March 03, 2017 10:42
--- NOTE | 2017-03-03 11:09 | CONS ---
Date/Time of Note Date/Time of Note DATE: 03/03/17 TIME: 11:08 Assessment/Plan Assessment/Plan Additional Assessment/Plan Perforated colon status post surgery Severe sepsis Respiratory failure-extubated Low normal ejection fraction 50% Acute decompensated diastolic congestive heart failure Crohn's disease Acute blood loss anemia -Lung examination lower extremity edema continues to improve. In discussion with nurse, patient with intermittent compliance with p.o. medications. Would switch Lasix to twice daily, supplement potassium to maintain above 4.0 and magnesium above 2.0. Consultation Date/Type/Reason Admit Date/Time Feb 01, 2017 at 03:10 Initial Consult Date 02/02/17 Type of Consultation: cv Referring Provider: VINCE PADGETT 24 HR Interval Summary Free Text/Dictation Denies shortness of breath, palpitations, chest pain Exam/Review of Systems Vital Signs Vitals Vital Signs Date Time Temp Pulse Resp B/P Pulse Ox O2 Delivery O2 Flow Rate FiO2 03/03/17 09:00 104 35 117/85 99 Nasal Cannula 3.0 03/03/17 08:45 98.8 03/03/17 08:00 32 Intake and Output 03/02/17 03/02/17 03/03/17 15:00 23:00 07:00 Intake Total 850 ml 800.0 ml 625 ml Output Total 1360 ml 2240 ml 1710 ml Balance -510 ml -1440.0 ml -1085 ml Exam Following commands, confused at times, no apparent distress Constitutional: alert Head: normocephalic Respiratory: other (Coarse breath sounds bilaterally, no wheezing) Cardiovascular: other (S1-S2 heard), regular rate and rhythm Gastrointestinal: bowel sounds, non-tender, soft Extremities: edema Results Result Diagram: 03/03/17 0530 03/03/17 0530 Results 24 hrs Laboratory Tests Test 03/03/17 02:00 03/03/17 05:30 03/03/17 09:31 Vancomycin Level Trough 18.6 White Blood Count 11.4 H Red Blood Count 2.84 L Hemoglobin 7.9 L Hematocrit 25.7 L Mean Corpuscular Volume 90.5 Mean Corpuscular Hemoglobin 27.8 L Mean Corpuscular Hemoglobin Concent 30.7 L Red Cell Distribution Width 14.4 Platelet Count 435 H Mean Platelet Volume 10.7 H Neutrophils % 77.3 H Lymphocytes % 7.6 L Monocytes % 8.4 Eosinophils % 4.6 Basophils % 0.4 Nucleated Red Blood Cells % 0.0 Neutrophils # 8.8 H Lymphocytes # 0.9 Monocytes # 1.0 H Eosinophils # 0.5 Basophils # 0.1 Nucleated Red Blood Cells # 0.0 Sodium Level 140 Potassium Level 3.6 Chloride Level 100 Carbon Dioxide Level 31 Anion Gap 13 Blood Urea Nitrogen 13 Creatinine 0.60 L Glucose Level 111 Calcium Level 8.4 Phosphorus Level 3.6 Magnesium Level 1.9 Lab Scanned Report REFERENCE LAB Medications Medications Current Medications Pantoprazole (Protonix Iv) 40 mg DAILY@06 IV Last administered on 03/03/17 06: 32; Admin Dose 40 MG; Start 02/01/17 at 06:00 Acetaminophen/ Hydrocodone Bitart ([place] (5/325)) 1 tab Q4H PRN PO PAIN LEVEL 4 -7 Last administered on 02/09/17 18:48; Admin Dose 1 TAB; Start 02/01/17 at 20: 30 Acetaminophen/ Hydrocodone Bitart ([place] (5/325)) 2 tab Q4H PRN PO PAIN LEVEL 7 -10; Start 02/01/17 at 20:30 Bisacodyl (Dulcolax Supp) 10 mg BID PRN [place] CONSTIPATION; Start 02/01/17 at 20: 30 Sodium Biphosphate/ Sodium Phosphate (Fleet Enema) 133 ml BID PRN [place] CONSTIPATION; Start 02/01/17 at 20:30 Acetaminophen (Tylenol Liquid) 650 mg Q4H PRN GTB PAIN AND OR ELEVATED TEMP Last administered on 02/27/17 12:37; Admin Dose 650 MG; Start 02/05/17 at 18:30 Salmeterol Xinafoate/ Fluticasone (Advair 250/50 Diskus) 1 inh BID INH Last administered on 02/12/17 09:03; Admin Dose 1 INH; Start 02/07/17 at 11:00; Status Future Hold IV Flush (NS 10 ml) 10 ml PRN PRN IV IV PROTOCOL; Start 02/07/17 at 14:30 Diphenhydramine HCl 25 mg 25 mg Q6H PRN IV itching Last administered on 00:00; Admin Dose 25 MG; Start 02/07/17 at 20:00 Ondansetron HCl/ Sodium Chloride (Zofran Inj/NS) 54 ml @ 216 mls/hr Q6H PRN IV NAUSEA AND/OR VOMITING; Start 02/09/17 at 11:30 Prednisone (Prednisone) 40 mg DAILY PO Last administered on 02/12/17 09:03; Admin Dose 40 MG; Start 02/11/17 at 09:00; Status Future Hold Lorazepam (Ativan) 1 mg Q1HWA PRN IM AGITATION/ANXIETY; Start 02/10/17 at 19:00 Trimethobenzamide HCl (Tigan) 200 mg Q6H PRN IM NAUSEA AND/OR VOMITING; Start 02/10/17 at 19:30 Morphine Sulfate (morphine) 2 mg Q4H PRN IV pain Last administered on 12:41; Admin Dose 2 MG; Start 02/20/17 at 18:30 Docusate Sodium 100 mg 100 mg QHS PRN NGT For Constipation; Start 02/25/17 at 21:00 Meropenem 100 ml @ 200 mls/hr Q8 IVPB Last administered on 03/03/17 06:33; Admin Dose 200 MLS/HR; Start 02/26/17 at 14:00 Fluconazole 100 ml @ 100 mls/hr Q24H IVPB Last administered on 03/02/17 17:40 ; Admin Dose 100 MLS/HR; Start 02/26/17 at 17:00 Acetaminophen (Ofirmev 1000mg/ 100ml Iv) 100 ml @ 50 mls/hr Q6H PRN IVPB fever Last administered on 03/01/17 08:55; Admin Dose 50 MLS/HR; Start at 07:30 Furosemide 20 mg 20 mg Q8 IV Last administered on 03/03/17 06:32; Admin Dose 20 MG; Start 03/01/17 at 14:00 Total Parenteral Nutrition (Tpn) 1,000 ml @ 50 mls/hr Q20H IV Last administered on 03/03/17 09:56; Admin Dose 50 MLS/HR; Start 03/02/17 at 14:00 Enoxaparin Sodium 40 mg 40 mg DAILY SC Last administered on 03/03/17 08:42; Admin Dose 40 MG; Start 03/03/17 at 09:00 Vancomycin HCl/ Sodium Chloride (Vancocin/NS) 150 ml @ 75 mls/hr Q12H IVPB ; Start 03/03/17 at 15:00 Keith Gandhi DO March 03, 2017 11:09
[2017-03-03] MEDS: POTASSIUM CHLORIDE 50 ML IVPB SCH ×2 (11:12→14:02)
[2017-03-03] MEDS ORDERED: MAGNESIUM SULFATE 2 GM/50 ML 50 ML IVPB ONE (11:30)
--- NOTE | 2017-03-03 14:01 | PN ---
DATE: INFECTIOUS DISEASE PROGRESS NOTE SUBJECTIVE: The patient is awake, looks comfortable. Denies pain. No fevers. VITAL SIGNS: Temperature 98.8, pulse 104, respirations 24, blood pressure 117/85, saturation 99 on 3 liters. INDWELLINGS: PICC line placed on 03/01/2017 and Zeng catheter. ANTIMICROBIALS: 1. Vancomycin. 2. Meropenem. 3. Fluconazole. OBJECTIVE: GENERAL: Well-developed, middle-aged white man who is awake, in no distress. HEENT: Atraumatic, normocephalic. Sclerae are anicteric. Buccal mucosa dry. NECK: Supple. CHEST: Rise symmetrical. Breath sounds clear, diminished bases. HEART: S1, S2. ABDOMEN: Soft. Wound VAC present. EXTREMITIES: With bilateral lower extremity dependent edema. ASSESSMENT: 1. Resolving sepsis status post shock. 2. Status post acute respiratory failure, extubated several days ago. 3. History of Crohn's disease and liver cirrhosis. 4. Status post perforated sigmoid colon repair complicated by intra-abdominal abscess status post d rainage and abdominal exploration with lavaged on 02/15/2017. 5. Evidence of multiple intra-abdominal abscesses per CT scan done on 02/28/2017, too small to be C T-guide aspirated as per surgical note. PLAN: The patient remains stable, overall improving. We will continue him on current antimicrobial s. Continue anti aspiration precautions. Follow recommendations of consultants. Dictated By: CLARE SANTIAGO/YAN Conf#: [id number] DID#: [id number]
[2017-03-03] MEDS: VANCOMYCIN 750 MG in SOD CHLORIDE 0.9% 150 ML IVPB SCH (15:42)
--- NOTE | 2017-03-03 16:22 | PN ---
Date/Time of Note Date/Time of Note DATE: 03/03/17 TIME: 16:20 Assessment/Plan VTE Prophylaxis VTE Prophylaxis Intervention: SCD's Lines/Catheters IV Catheter Type (from Nrs): PICC Line Central line still needed: Yes Urinary Cath still in place: Yes Reason Cath still needed: urinary retention Assessment/Plan Assessment/Plan Assessment/Plan Perforated sigmoid colon * Laparoscopic exploration,open sigmoid colectomy with Deena end colostomy with liver biopsy segment V h/o Crohn's disease Respiratory failure Thrombocytopenia Liver Cirrhosis Anemia hemoglobin Atelectasis,compressive managed by pulmonary Plan Continue present management Will reevaluate for Crohn's disease once recovered from surgery will sign out for now but if needed were available Subjective 24 Hr Interval Summary Free Text/Dictation * Course reviewed with RN * patient seen and examined * bouts of confusion,afebrile Exam/Review of Systems Vital Signs Vitals Vital Signs Date Time Temp Pulse Resp B/P Pulse Ox O2 Delivery O2 Flow Rate FiO2 03/03/17 15:00 104 34 115/88 94 Nasal Cannula 03/03/17 13:50 3.0 32 03/03/17 12:00 98.0 Intake and Output 03/02/17 03/02/17 03/03/17 15:00 23:00 07:00 Intake Total 850 ml 800.0 ml 625 ml Output Total 1360 ml 2240 ml 1710 ml Balance -510 ml -1440.0 ml -1085 ml Exam Constitutional: frail Neck: non-tender, supple Respiratory: clear to auscultation, diminished breath sounds, normal air movement Cardiovascular: nl pulses, regular rate and rhythm Gastrointestinal: bowel sounds, non-tender, other (colostomy), soft Musculoskeletal: nl extremities to inspection Extremities: normal pulses Results Result Diagram: 03/03/17 0530 03/03/17 0530 Results 24 hrs Laboratory Tests Test 03/03/17 02:00 03/03/17 05:30 03/03/17 09:31 Vancomycin Level Trough 18.6 White Blood Count 11.4 H Red Blood Count 2.84 L Hemoglobin 7.9 L Hematocrit 25.7 L Mean Corpuscular Volume 90.5 Mean Corpuscular Hemoglobin 27.8 L Mean Corpuscular Hemoglobin Concent 30.7 L Red Cell Distribution Width 14.4 Platelet Count 435 H Mean Platelet Volume 10.7 H Neutrophils % 77.3 H Lymphocytes % 7.6 L Monocytes % 8.4 Eosinophils % 4.6 Basophils % 0.4 Nucleated Red Blood Cells % 0.0 Neutrophils # 8.8 H Lymphocytes # 0.9 Monocytes # 1.0 H Eosinophils # 0.5 Basophils # 0.1 Nucleated Red Blood Cells # 0.0 Sodium Level 140 Potassium Level 3.6 Chloride Level 100 Carbon Dioxide Level 31 Anion Gap 13 Blood Urea Nitrogen 13 Creatinine 0.60 L Glucose Level 111 Calcium Level 8.4 Phosphorus Level 3.6 Magnesium Level 1.9 Lab Scanned Report REFERENCE LAB Medications Medications Current Medications Pantoprazole (Protonix Iv) 40 mg DAILY@06 IV Last administered on 03/03/17 06: 32; Admin Dose 40 MG; Start 02/01/17 at 06:00 Acetaminophen/ Hydrocodone Bitart ([place] (5/325)) 1 tab Q4H PRN PO PAIN LEVEL 4 -7 Last administered on 02/09/17 18:48; Admin Dose 1 TAB; Start 02/01/17 at 20: 30 Acetaminophen/ Hydrocodone Bitart ([place] (5/325)) 2 tab Q4H PRN PO PAIN LEVEL 7 -10; Start 02/01/17 at 20:30 Bisacodyl (Dulcolax Supp) 10 mg BID PRN [place] CONSTIPATION; Start 02/01/17 at 20: 30 Sodium Biphosphate/ Sodium Phosphate (Fleet Enema) 133 ml BID PRN [place] CONSTIPATION; Start 02/01/17 at 20:30 Acetaminophen (Tylenol Liquid) 650 mg Q4H PRN GTB PAIN AND OR ELEVATED TEMP Last administered on 02/27/17 12:37; Admin Dose 650 MG; Start 02/05/17 at 18:30 Salmeterol Xinafoate/ Fluticasone (Advair 250/50 Diskus) 1 inh BID INH Last administered on 02/12/17 09:03; Admin Dose 1 INH; Start 02/07/17 at 11:00; Status Future Hold IV Flush (NS 10 ml) 10 ml PRN PRN IV IV PROTOCOL; Start 02/07/17 at 14:30 Diphenhydramine HCl 25 mg 25 mg Q6H PRN IV itching Last administered on 00:00; Admin Dose 25 MG; Start 02/07/17 at 20:00 Ondansetron HCl/ Sodium Chloride (Zofran Inj/NS) 54 ml @ 216 mls/hr Q6H PRN IV NAUSEA AND/OR VOMITING; Start 02/09/17 at 11:30 Prednisone (Prednisone) 40 mg DAILY PO Last administered on 02/12/17 09:03; Admin Dose 40 MG; Start 02/11/17 at 09:00; Status Future Hold Lorazepam (Ativan) 1 mg Q1HWA PRN IM AGITATION/ANXIETY; Start 02/10/17 at 19:00 Trimethobenzamide HCl (Tigan) 200 mg Q6H PRN IM NAUSEA AND/OR VOMITING; Start 02/10/17 at 19:30 Morphine Sulfate (morphine) 2 mg Q4H PRN IV pain Last administered on 12:41; Admin Dose 2 MG; Start 02/20/17 at 18:30 Docusate Sodium 100 mg 100 mg QHS PRN NGT For Constipation; Start 02/25/17 at 21:00 Meropenem 100 ml @ 200 mls/hr Q8 IVPB Last administered on 03/03/17 14:03; Admin Dose 200 MLS/HR; Start 02/26/17 at 14:00 Fluconazole 100 ml @ 100 mls/hr Q24H IVPB Last administered on 03/02/17 17:40 ; Admin Dose 100 MLS/HR; Start 02/26/17 at 17:00 Acetaminophen 100 ml @ 50 mls/hr Q6H PRN IVPB fever Last administered on 08:55; Admin Dose 50 MLS/HR; Start 02/28/17 at 07:30 Total Parenteral Nutrition (Tpn) 1,000 ml @ 50 mls/hr Q20H IV Last administered on 03/03/17 09:56; Admin Dose 50 MLS/HR; Start 03/02/17 at 14:00 Enoxaparin Sodium 40 mg 40 mg DAILY SC Last administered on 03/03/17 08:42; Admin Dose 40 MG; Start 03/03/17 at 09:00 Vancomycin HCl/ Sodium Chloride (Vancocin/NS) 150 ml @ 75 mls/hr Q12H IVPB Last administered on 03/03/17 15:42; Admin Dose 75 MLS/HR; Start 03/03/17 at 15 :00 SANDRA DAVIS MD March 03, 2017 16:22
--- NOTE | 2017-03-03 16:59 | PN ---
Date/Time of Note Date/Time of Note DATE: 03/03/17 TIME: 16:56 Assessment/Plan Lines/Catheters IV Catheter Type (from Nrsg): PICC Line Zeng in Place (from Nrsg): Yes Assessment/Plan Assessment/Plan [facility] Progress Note Date of Service: 03/03/17 Today's Impression & Plan: Overall stable. Remains extubated and so far no major pulmonary issues noted or reported. Still significantly confused. Abd remains benign. No evidence for peritonitis or major symptomatic abscess. Ostomy still pink and viable and productive. 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 Remains high risk for complication given perforated colon in the setting of uncontrolled Crohn's. Recovery will take extra time with likely need for rehab. With above assessment, I've recommended the following for today: 1. Cont current cares in ICU 2. F/u on cultures 3. Cont TPN 4. Pulmonary toilet 5. Cont gentle diuresis to BMP < 200 6. Social work and case management to please start working on possible rehab vs. home health nurse set up 7. Increase activity 8. Increase ICS 9. Wean off broad spec antimicrobials 10. Labs in am 11. Cont current wound care with wound vac 12. Consider hematology consultation and send peripheral smear 13. Add LFT's to tomorrow's labs 14. I ordered a brain MRI 15. Continue prophylactic anticoagulation (no contraindication from surgical standpoint) Thank you again for your great care of this very pleasant patient and wonderful family. If there are any questions, please feel free to call me at [phone]. TOTAL VISIT TIME: 20 minutes of which more than half was spent in [id number] discussion with the patient, possibly including family, as well as coordination of care between multiple physicians and providers. Disclaimer: Inadvertent spelling or grammatical errors are likely due to EHR/ dictation software use and do not reflect on the overall quality of patient care. Updated Clinical Summary: A very pleasant 46-year-old gentleman with history of Crohn's disease as well as prior surgery for anal fistula approximately 5 years ago, and a torn meniscus repair on the left knee, presenting with abdominal pain associated with a few weeks' duration of diarrhea. S/p an otherwise uncomplicated diagnostic laparoscopy was converted first to hand assist and then to open exploration when perforated sigmoid colon was found and it was resected with a Deena type procedure and end colostomy as well as core needle liver biopsy, segment 5, due to presence of fatty liver disease, lysis of adhesions, and abdominal lavage on 02/01/17. Failed to wean off the vent through 02/06/17. PE was evaluated 02/07/[address] angio and no evidence found. CT abd/pelvis also did not show actionable findings (no abscess; bowel thickening somewhat expected). Extubated 02/07/17. [employer] HELPER called early am 02/13/17 with a few minutes coding, requiring intubation and transfer to ICU. Fortunately, mentally appears to be intact and not on pressors. Lactic acid and CO2 normal with benign appearing abd and viable ostomy. Complicated by fascia dehiscence. S/p exploration of abdomen through recent laparotomy, primary closure of fascia and abdominal lavage on 02/15/17. Reintubated 02/25/17 for bronchoscopy to remove mucus plug. Extubated 02/28/17. COMORBIDITIES: 1. Crohn disease with perforation of sigmoid colon and sepsis. S/p an otherwise uncomplicated diagnostic laparoscopy was converted first to hand assist and then to open exploration when perforated sigmoid colon was found and it was resected with a Deena type procedure and end colostomy as well as core needle liver biopsy, segment 5, due to presence of fatty liver disease, lysis of adhesions, and abdominal lavage on 02/01/17. Complicated by respiratory failure, return trip to ICU and fascia dehiscence. S/p exploration of abdomen through recent laparotomy, primary closure of fascia and abdominal lavage on 02/15. 2. Repair of a fistula approximately 5 years ago. 3. Torn meniscus on the left knee status post repair. Subjective: No major events overnight; no major complaints; no major SOB and no CP; + BM Objective: Vitals: See below Exam: GENERAL: On exam, the patient was laying in bed and appeared to be comfortable and in no acute distress. ABDOMEN: Soft, nontender and nondistended. Incision wound vac dressings are clean without any evidence of obvious erythema, edema, discharge, or hernia. Wound vac with no sig drainage. Surgery drain site clean. Ostomy pink and viable ; some air and stool in the bag. There are no peritoneal signs or guarding. SKIN: Skin appears to be pink and feels warm to touch. NEUROLOGIC: Patient is awake, alert and does not follow commands appropriately. Significantly confused and speaking in comprehensible but non-sense terms. Exam/Review of Systems Vital Signs Vitals Vital Signs Date Time Temp Pulse Resp B/P Pulse Ox O2 Delivery O2 Flow Rate FiO2 03/03/17 16:00 106 35 117/83 98 Nasal Cannula 03/03/17 13:50 3.0 32 03/03/17 12:00 98.0 Intake and Output 03/02/17 03/02/17 03/03/17 15:00 23:00 07:00 Intake Total 850 ml 800.0 ml 625 ml Output Total 1360 ml 2240 ml 1710 ml Balance -510 ml -1440.0 ml -1085 ml Results Result Diagram: 03/03/17 0530 03/03/17 0530 TI HILTON M.D. March 03, 2017 16:59
[2017-03-03] MEDS: FLUCONAZOLE 200 MG/NS (PMX) 100 ML IVPB SCH (17:09)
[2017-03-04] VITALS (25 sets, daily range): BP systolic 121–158; BP diastolic 80–103; PULSE 95–112; RESP 10–47
[2017-03-04] MEDS: ALBUTEROL/IPRATROPIUM (NEB) 3 ML AMP HHN SCH ×4 (01:08→19:35)
[2017-03-04] MEDS: ACETYLCYSTEINE 20% 4 ML VIAL NEB SCH ×4 (01:18→19:43)
[2017-03-04] MEDS: VANCOMYCIN 750 MG in SOD CHLORIDE 0.9% 150 ML IVPB SCH ×2 (02:32→14:55)
[2017-03-04] MEDS: PANTOPRAZOLE 40 MG INJ IV SCH (05:07)
[2017-03-04] MEDS: FUROSEMIDE 20 MG INJ IV SCH ×2 (05:07→17:09)
[2017-03-04] MEDS: MEROPENEM 1 GM/100 ML (PMX) 100 ML IVPB SCH ×3 (05:08→21:51)
[2017-03-04] MEDS: TPN 1,000 ML IV SCH (05:08)
[2017-03-04 06:11] LABS: ADD SCAN DIFF NO
[2017-03-04 06:20] LABS: BASOPHIL # 0.1 10^3/ul (0.0-0.1); BASOPHILS % 0.4 % (0.0-2.0); EOSINOPHILS # 0.5 10^3/ul (0.0-0.5); EOSINOPHILS % 4.6 % (0.0-7.0); HEMATOCRIT 26.6 % (42.0-52.0); HEMOGLOBIN 8.2 g/dl (14.0-18.0); LYMPHOCYTES # 0.7 10^3/ul (0.8-2.9); LYMPHOCYTES % 6.3 % (15.0-51.0); MEAN CORPUSCULAR HEMOGLOBIN 28.2 pg (29.0-33.0); MEAN CORPUSCULAR HGB CONC 30.8 g/dl (32.0-37.0); MEAN CORPUSCULAR VOLUME 91.4 fl (82.0-101.0); MONOCYTE # 0.9 10^3/ul (0.3-0.9); NEUTROPHIL # 9.2 10^3/ul (1.6-7.5); NEUTROPHILS % 79.1 % (39.0-77.0); PLATELET COUNT 428 10^3/UL (140-415); RED BLOOD COUNT 2.91 10^6/ul (4.70-6.10); RED CELL DISTRIBUTION WIDTH 14.5 % (11.5-14.5); WHITE BLOOD COUNT 11.6 10^3/ul (4.8-10.8)
[2017-03-04 06:54] LABS: MAGNESIUM 1.7 mg/dl (1.7-2.5); PHOSPHORUS 4.3 mg/dl (2.5-4.9)
[2017-03-04 06:55] LABS: POTASSIUM 4.1 mmol/L (3.5-5.1)
[2017-03-04 06:58] LABS: CALCIUM 8.6 mg/dl (8.4-10.2); CREATININE 0.54 mg/dl (0.61-1.24)
[2017-03-04] MEDS ORDERED: ETOMIDATE 20 MG INJ ONE (07:00)
[2017-03-04] MEDS ORDERED: ROCURONIUM 50 MG INJ ONE (07:00)
[2017-03-04] MEDS: ENOXAPARIN 40 MG/0.4 ML SYG SC SCH (08:24)
--- NOTE | 2017-03-04 10:29 | CONS ---
Date/Time of Note Date/Time of Note DATE: 03/04/17 TIME: 10:26 Assessment/Plan Assessment/Plan Additional Assessment/Plan Assessment recommendations; 1. Patient admitted for acute diverticulitis status post laparoscopic sigmoidectomy with colostomy, patient also developed pneumonia and was extubated after surgery but had to be reintubated for complete atelectasis of the left lung and required a bronchoscopy with significant improvement since then. 2. ICU psychosis. 3. Pneumonia. Continue current treatment. Will obtain follow-up chest x-ray. Patient will be moved to a different room with more natural light in order to possibly help him over in coming acute psychosis that he is experiencing. Consultation Date/Type/Reason Admit Date/Time Feb 01, 2017 at 03:10 Initial Consult Date 02/02/17 Type of Consultation: Pulmonary/critical care Referring Provider: VINCE PADGETT 24 HR Interval Summary Free Text/Dictation Patient's condition remains tenuous at best in terms of persistent ICU psychosis. Patient however has remained hemodynamically stable. General exam; middle-aged male, awake, alert. Exhibiting obvious confusion. Exam/Review of Systems Vital Signs Vitals Vital Signs Date Time Temp Pulse Resp B/P Pulse Ox O2 Delivery O2 Flow Rate FiO2 03/04/17 09:03 109 34 121/80 96 Nasal Cannula 3.0 03/04/17 08:00 98.1 03/03/17 17:58 32 Intake and Output 03/03/17 03/03/17 03/04/17 15:00 23:00 07:00 Intake Total 600 ml 650 ml 550 ml Output Total 1400 ml 1167 ml 690 ml Balance -800 ml -517 ml -140 ml Exam HEENT examination; supple neck, no JVD. No lymphadenopathy. Midline trachea. Patient has fair dentition. Chest examined; diminished but clear vessel. S1-S2 audible, no murmurs. Regular rhythm. Abdomen examination; soft, nontender. Colostomy in place. Bowel sounds audible. Extremity exam; trace peripheral edema. GOLD NIB GRINDER exam is; patient is awake and moves all 4 extremities. Results Result Diagram: 03/04/17 0500 03/04/17 0500 Results 24 hrs Laboratory Tests Test 03/04/17 05:00 White Blood Count 11.6 H Red Blood Count 2.91 L Hemoglobin 8.2 L Hematocrit 26.6 L Mean Corpuscular Volume 91.4 Mean Corpuscular Hemoglobin 28.2 L Mean Corpuscular Hemoglobin Concent 30.8 L Red Cell Distribution Width 14.5 Platelet Count 428 H Mean Platelet Volume 11.0 H Neutrophils % 79.1 H Lymphocytes % 6.3 L Monocytes % 8.0 Eosinophils % 4.6 Basophils % 0.4 Nucleated Red Blood Cells % 0.0 Neutrophils # 9.2 H Lymphocytes # 0.7 L Monocytes # 0.9 Eosinophils # 0.5 Basophils # 0.1 Nucleated Red Blood Cells # 0.0 Sodium Level 139 Potassium Level 4.1 Chloride Level 98 Carbon Dioxide Level 31 Anion Gap 14 Blood Urea Nitrogen 15 Creatinine 0.54 L Glucose Level 98 Calcium Level 8.6 Phosphorus Level 4.3 Magnesium Level 1.7 Medications Medications Current Medications Pantoprazole (Protonix Iv) 40 mg DAILY@06 IV Last administered on 03/04/17 05: 07; Admin Dose 40 MG; Start 02/01/17 at 06:00 Acetaminophen/ Hydrocodone Bitart ([place] (5/325)) 1 tab Q4H PRN PO PAIN LEVEL 4 -7 Last administered on 02/09/17 18:48; Admin Dose 1 TAB; Start 02/01/17 at 20: 30 Acetaminophen/ Hydrocodone Bitart ([place] (5/325)) 2 tab Q4H PRN PO PAIN LEVEL 7 -10; Start 02/01/17 at 20:30 Bisacodyl (Dulcolax Supp) 10 mg BID PRN [place] CONSTIPATION; Start 02/01/17 at 20: 30 Sodium Biphosphate/ Sodium Phosphate (Fleet Enema) 133 ml BID PRN [place] CONSTIPATION; Start 02/01/17 at 20:30 Acetaminophen (Tylenol Liquid) 650 mg Q4H PRN GTB PAIN AND OR ELEVATED TEMP Last administered on 02/27/17 12:37; Admin Dose 650 MG; Start 02/05/17 at 18:30 Salmeterol Xinafoate/ Fluticasone (Advair 250/50 Diskus) 1 inh BID INH Last administered on 02/12/17 09:03; Admin Dose 1 INH; Start 02/07/17 at 11:00; Status Future Hold IV Flush (NS 10 ml) 10 ml PRN PRN IV IV PROTOCOL; Start 02/07/17 at 14:30 Diphenhydramine HCl 25 mg 25 mg Q6H PRN IV itching Last administered on 00:00; Admin Dose 25 MG; Start 02/07/17 at 20:00 Ondansetron HCl/ Sodium Chloride (Zofran Inj/NS) 54 ml @ 216 mls/hr Q6H PRN IV NAUSEA AND/OR VOMITING; Start 02/09/17 at 11:30 Prednisone (Prednisone) 40 mg DAILY PO Last administered on 02/12/17 09:03; Admin Dose 40 MG; Start 02/11/17 at 09:00; Status Future Hold Lorazepam (Ativan) 1 mg Q1HWA PRN IM AGITATION/ANXIETY; Start 02/10/17 at 19:00 Trimethobenzamide HCl (Tigan) 200 mg Q6H PRN IM NAUSEA AND/OR VOMITING; Start 02/10/17 at 19:30 Morphine Sulfate (morphine) 2 mg Q4H PRN IV pain Last administered on 12:41; Admin Dose 2 MG; Start 02/20/17 at 18:30 Docusate Sodium 100 mg 100 mg QHS PRN NGT For Constipation; Start 02/25/17 at 21:00 Meropenem 100 ml @ 200 mls/hr Q8 IVPB Last administered on 03/04/17 05:08; Admin Dose 200 MLS/HR; Start 02/26/17 at 14:00 Fluconazole 100 ml @ 100 mls/hr Q24H IVPB Last administered on 03/03/17 17:09 ; Admin Dose 100 MLS/HR; Start 02/26/17 at 17:00 Acetaminophen 100 ml @ 50 mls/hr Q6H PRN IVPB fever Last administered on 08:55; Admin Dose 50 MLS/HR; Start 02/28/17 at 07:30 Total Parenteral Nutrition (Tpn) 1,000 ml @ 50 mls/hr Q20H IV Last administered on 03/04/17 05:08; Admin Dose 50 MLS/HR; Start 03/02/17 at 14:00 Enoxaparin Sodium 40 mg 40 mg DAILY SC Last administered on 03/04/17 08:24; Admin Dose 40 MG; Start 03/03/17 at 09:00 Vancomycin HCl/ Sodium Chloride (Vancocin/NS) 150 ml @ 75 mls/hr Q12H IVPB Last administered on 03/04/17t 02:32; Admin Dose 75 MLS/HR; Start 03/03/17 at 15 :00 RICHAR ADRIAN March 04, 2017 10:29
--- NOTE | 2017-03-04 10:43 | PN ---
Date/Time of Note Date/Time of Note DATE: 03/04/17 TIME: 10:36 Assessment/Plan VTE Prophylaxis VTE Prophylaxis Intervention: LMWH Lines/Catheters IV [facility]atheter Type (from [facility]): PICC Line Central line still needed: Yes Urinary Cath still in place: Yes Reason Cath still needed: other (indicate) Assessment/Plan Assessment/Plan 1. Perforated sigmoid colon 2/2 Severe Crohn's colitis * S/p Urgent Open Cronin's procedure with end colostomy, liver biopsy and abdominal lavage 02/01/17P * S/p post operative paracolic abscess drained via CT 02/14/[address] * S/p Exploration of abdomen through recent laparotomy site with closure of fascia done 02/15/17 for Fascia dehiscence 2. Recurrent Resp failure: Extubated then reintubated 02/13, extubated, then reintubated 02/25/17, then extubated 02/27 * Status post bronchoscopy with clearance of extensive secretions in the left mainstem bronchus with improved aeration radiographically 02/25 * Pulm concerned about possible neuromuscular injury contributing to recurrent resp failure 3. Exacerbation of Crohn's disease with acute colitis and diarrhea Cultures earlier were growing ecoli / proteus / enterococcus 4. Multifocal PNA + Mook Pleural effusions - Effusions likely hydrostatic from hypoalbuminemia. + fevers - monitor, ID managing abx and antifungal 5. Severe Sepsis with lactic acidosis 2/2 severe colitis / PNA - now with fevers again though last episode was >24hrs ago, back on abx. - CT A/P showing new multiple abscesses / infection not likely from these per surgery - Continue abx per ID 6. S/p Systemic shock (hypovolemic +septic) - again, see # 5, abx: Resolved 7. TPN therapy for low prealbumin + tube feeds: patient is not eating very well yet, begin weaning when appetite improved. 8. Hx of heavy alcohol and tobacco use just until admission - monitor 9. Probable underlying COPD and Cirrhosis based on hx which explains hypoalbuminemia and anasarca - monitor 10. Severe recurrent anemia likely 2/2 occult blood loss from multiple sources : PRN transfusions 11. Hypomagnesemia - replete as needed 12. Encephalopathy / Confusion : patient may have suffered some anoxic brain insult during the course of his hospitalization / May improve / continue restraints for now as needed/ will start low dose seroquel when less of an aspiration risk /MRI pending Dispo: Patient is stable to transfer now to telemetry if okay with pulmonary. CRITICAL CARE TIME: >35 mins Subjective 24 Hr Interval Summary Free Text/Dictation Patient remains confused, but a lot calmer, and a lot more stable respiratory feliciano. Nursing reports extremely poor appetite Exam/Review of Systems Vital Signs Vitals Vital Signs Date Time Temp Pulse Resp B/P Pulse Ox O2 Delivery O2 Flow Rate FiO2 03/04/17 09:03 109 34 121/80 96 Nasal Cannula 3.0 03/04/17 08:00 98.1 03/03/17 17:58 32 Intake and Output 03/03/17 03/03/17 03/04/17 15:00 23:00 07:00 Intake Total 600 ml 650 ml 550 ml Output Total 1400 ml 1167 ml 690 ml Balance -800 ml -517 ml -140 ml Exam Constitutional: extubated, awake, confused, less lethargic, and more cooperative. Head: normocephalic Eyes: PERRL, icteric Respiratory: some diminished breath sounds, No wheezing Cardiovascular: regular rate and rhythm, No murmurs/extra sounds Gastrointestinal: other (midline surgical dressing with wound vac / L sided colostomy and drain / colostomy has dark green fluidy stool), soft otherwise Genitourinary - Male: other (significant scrotal and penile edema) Musculoskeletal: swelling (generalized anasarca) Extremities: + pitting pedal edema, patient moves both upper extremities spontaneously, but he still having difficulty moving both lower extremities. Some medial deviation of left foot noted. Neurological: Lethargic Results Result Diagram: 03/04/17 0500 03/04/17 0500 Results 24 hrs Laboratory Tests Test 03/04/17 05:00 White Blood Count 11.6 H Red Blood Count 2.91 L Hemoglobin 8.2 L Hematocrit 26.6 L Mean Corpuscular Volume 91.4 Mean Corpuscular Hemoglobin 28.2 L Mean Corpuscular Hemoglobin Concent 30.8 L Red Cell Distribution Width 14.5 Platelet Count 428 H Mean Platelet Volume 11.0 H Neutrophils % 79.1 H Lymphocytes % 6.3 L Monocytes % 8.0 Eosinophils % 4.6 Basophils % 0.4 Nucleated Red Blood Cells % 0.0 Neutrophils # 9.2 H Lymphocytes # 0.7 L Monocytes # 0.9 Eosinophils # 0.5 Basophils # 0.1 Nucleated Red Blood Cells # 0.0 Sodium Level 139 Potassium Level 4.1 Chloride Level 98 Carbon Dioxide Level 31 Anion Gap 14 Blood Urea Nitrogen 15 Creatinine 0.54 L Glucose Level 98 Calcium Level 8.6 Phosphorus Level 4.3 Magnesium Level 1.7 Medications Medications Current Medications Pantoprazole (Protonix Iv) 40 mg DAILY@06 IV Last administered on 03/04/17 05: 07; Admin Dose 40 MG; Start 02/01/17 at 06:00 Acetaminophen/ Hydrocodone Bitart ([place] (5/325)) 1 tab Q4H PRN PO PAIN LEVEL 4 -7 Last administered on 02/09/17 18:48; Admin Dose 1 TAB; Start 02/01/17 at 20: 30 Acetaminophen/ Hydrocodone Bitart ([place] (5/325)) 2 tab Q4H PRN PO PAIN LEVEL 7 -10; Start 02/01/17 at 20:30 Bisacodyl (Dulcolax Supp) 10 mg BID PRN [place] CONSTIPATION; Start 02/01/17 at 20: 30 Sodium Biphosphate/ Sodium Phosphate (Fleet Enema) 133 ml BID PRN [place] CONSTIPATION; Start 02/01/17 at 20:30 Acetaminophen (Tylenol Liquid) 650 mg Q4H PRN GTB PAIN AND OR ELEVATED TEMP Last administered on 02/27/17 12:37; Admin Dose 650 MG; Start 02/05/17 at 18:30 Salmeterol Xinafoate/ Fluticasone (Advair 250/50 Diskus) 1 inh BID INH Last administered on 02/12/17 09:03; Admin Dose 1 INH; Start 02/07/17 at 11:00; Status Future Hold IV Flush (NS 10 ml) 10 ml PRN PRN IV IV PROTOCOL; Start 02/07/17 at 14:30 Diphenhydramine HCl 25 mg 25 mg Q6H PRN IV itching Last administered on 00:00; Admin Dose 25 MG; Start 02/07/17 at 20:00 Ondansetron HCl/ Sodium Chloride (Zofran Inj/NS) 54 ml @ 216 mls/hr Q6H PRN IV NAUSEA AND/OR VOMITING; Start 02/09/17 at 11:30 Prednisone (Prednisone) 40 mg DAILY PO Last administered on 02/12/17 09:03; Admin Dose 40 MG; Start 02/11/17 at 09:00; Status Future Hold Lorazepam (Ativan) 1 mg Q1HWA PRN IM AGITATION/ANXIETY; Start 02/10/17 at 19:00 Trimethobenzamide HCl (Tigan) 200 mg Q6H PRN IM NAUSEA AND/OR VOMITING; Start 02/10/17 at 19:30 Morphine Sulfate (morphine) 2 mg Q4H PRN IV pain Last administered on 12:41; Admin Dose 2 MG; Start 02/20/17 at 18:30 Docusate Sodium 100 mg 100 mg QHS PRN NGT For Constipation; Start 02/25/17 at 21:00 Meropenem 100 ml @ 200 mls/hr Q8 IVPB Last administered on 03/04/17 05:08; Admin Dose 200 MLS/HR; Start 02/26/17 at 14:00 Fluconazole 100 ml @ 100 mls/hr Q24H IVPB Last administered on 03/03/17 17:09 ; Admin Dose 100 MLS/HR; Start 02/26/17 at 17:00 Acetaminophen 100 ml @ 50 mls/hr Q6H PRN IVPB fever Last administered on 08:55; Admin Dose 50 MLS/HR; Start 02/28/17 at 07:30 Total Parenteral Nutrition (Tpn) 1,000 ml @ 50 mls/hr Q20H IV Last administered on 03/04/17 05:08; Admin Dose 50 MLS/HR; Start 03/02/17 at 14:00 Enoxaparin Sodium 40 mg 40 mg DAILY SC Last administered on 03/04/17 08:24; Admin Dose 40 MG; Start 03/03/17 at 09:00 Vancomycin HCl/ Sodium Chloride (Vancocin/NS) 150 ml @ 75 mls/hr Q12H IVPB Last administered on 03/04/17 02:32; Admin Dose 75 MLS/HR; Start 03/03/17 at 15 :00 VINCE PADGETT March 04, 2017 10:43
[2017-03-04 11:57] LABS: TOTAL IRON BINDING CAPACITY 147 ug/dl (241-421)
[2017-03-04 12:00] LABS: IRON < 10 ug/dl (35-150)
--- NOTE | 2017-03-04 13:31 | PN ---
DATE: 03/04/2017 SUBJECTIVE: The patient is alert, confused, looks comfortable, no fevers. LABORATORY DATA: WBC today 11.6, platelets 428, neutrophils 79.1, H and H 8.2 and 26.6. BUN 15, cr eatinine 0.54. INDWELLINGS: PICC line, Zeng catheter. ANTIMICROBIALS: 1. Vancomycin. 2. Merrem 3. Fluconazole. PHYSICAL EXAMINATION: GENERAL: Ill-appearing, middle-aged white man who is alert, in no distress. HEENT: Head atraumatic, normocephalic. Sclerae anicteric. Buccal mucosa dry. NECK: Supple. CHEST: Rise symmetrical. Breath sounds diminished to bases. HEART: S1, S2. ABDOMEN: Soft, bowel sounds present. EXTREMITIES: With bilateral lower extremity dependent trace edema. ASSESSMENT: 1. Resolving sepsis status post shock. 2. Status post pneumonia, respiratory failure. 3. Crohn's disease. 4. Status post perforated viscus repair. 5. History of ETOH abuse. 6. Evidence of multiple small intra-abdominal abscesses per CT of the abdomen, too small to drain. PLAN: The patient remains stable, no fevers. White blood cell count improving. He is being seen b y multiple consultants. Continue on current antimicrobials. Dictated By: [facility] MUSIC THERAPIST for MICKY RAMÍREZ/YAN Conf#: [id number] DID#: [id number]
--- NOTE | 2017-03-04 13:46 | PN ---
Date/Time of Note Date/Time of Note DATE: 03/04/17 TIME: 13:44 Assessment/Plan Lines/Catheters IV Catheter Type (from Nrsg): PICC Line Zeng in Place (from Nrsg): Yes Assessment/Plan Assessment/Plan [facility] Progress Note Date of Service: 03/04/17 Today's Impression & Plan: Overall stable. Still significantly confused. Abd remains benign. No evidence for peritonitis or major symptomatic abscess. Ostomy still pink and viable and productive. Still not clear why he is failing to thrive and having SALESPERSON SURGICAL APPLIANCES issues. Remains high risk for complication given perforated colon in the setting of uncontrolled Crohn's. Recovery will take extra time with likely need for rehab. With above assessment, I've recommended the following for today: 1. Cont current cares in ICU 2. F/u on cultures 3. Cont TPN 4. Pulmonary toilet 5. Cont gentle diuresis to BMP < 200 6. Social work and case management to please start working on possible rehab vs. home health nurse set up 7. Increase activity 8. Increase ICS 9. Wean off broad spec antimicrobials 10. Labs in am 11. Cont current wound care with wound vac 12. Consider hematology consultation and send peripheral smear 13. Add LFT's to tomorrow's labs 14. I ordered a brain MRI 15. Continue prophylactic anticoagulation (no contraindication from surgical standpoint) Thank you again for your great care of this very pleasant patient and wonderful family. If there are any questions, please feel free to call me at [phone]. TOTAL VISIT TIME: 20 minutes of which more than half was spent in [id number] discussion with the patient, possibly including family, as well as coordination of care between multiple physicians and providers. Disclaimer: Inadvertent spelling or grammatical errors are likely due to EHR/ dictation software use and do not reflect on the overall quality of patient care. Updated Clinical Summary: A very pleasant 46-year-old gentleman with history of Crohn's disease as well as prior surgery for anal fistula approximately 5 years ago, and a torn meniscus repair on the left knee, presenting with abdominal pain associated with a few weeks' duration of diarrhea. S/p an otherwise uncomplicated diagnostic laparoscopy was converted first to hand assist and then to open exploration when perforated sigmoid colon was found and it was resected with a Deena type procedure and end colostomy as well as core needle liver biopsy, segment 5, due to presence of fatty liver disease, lysis of adhesions, and abdominal lavage on 02/01/17. Failed to wean off the vent through 02/06/17. PE was evaluated 02/07/[address] angio and no evidence found. CT abd/pelvis also did not show actionable findings (no abscess; bowel thickening somewhat expected). Extubated 02/07/17. COMMUNITY WORKER called early am 02/13/17 with a few minutes coding, requiring intubation and transfer to ICU. Fortunately, mentally appears to be intact and not on pressors. Lactic acid and CO2 normal with benign appearing abd and viable ostomy. Complicated by fascia dehiscence. S/p exploration of abdomen through recent laparotomy, primary closure of fascia and abdominal lavage on 02/15/17. Reintubated 02/25/17 for bronchoscopy to remove mucus plug. Extubated 02/28/17. COMORBIDITIES: 1. Crohn disease with perforation of sigmoid colon and sepsis. S/p an otherwise uncomplicated diagnostic laparoscopy was converted first to hand assist and then to open exploration when perforated sigmoid colon was found and it was resected with a Deena type procedure and end colostomy as well as core needle liver biopsy, segment 5, due to presence of fatty liver disease, lysis of adhesions, and abdominal lavage on 02/01/17. Complicated by respiratory failure, return trip to ICU and fascia dehiscence. S/p exploration of abdomen through recent laparotomy, primary closure of fascia and abdominal lavage on 02/15. 2. Repair of a fistula approximately 5 years ago. 3. Torn meniscus on the left knee status post repair. Subjective: No major events overnight; no major complaints; no major SOB and no CP; + BM Objective: Vitals: See below Exam: GENERAL: On exam, the patient was laying in bed and appeared to be comfortable and in no acute distress. ABDOMEN: Soft, nontender and nondistended. Incision wound vac dressings are clean without any evidence of obvious erythema, edema, discharge, or hernia. Wound vac with no sig drainage. Surgery drain site clean. Ostomy pink and viable ; some air and stool in the bag. There are no peritoneal signs or guarding. SKIN: Skin appears to be pink and feels warm to touch. NEUROLOGIC: Patient is awake, alert and does not follow commands appropriately. Significantly confused and speaking in comprehensible but non-sense terms. Exam/Review of Systems Vital Signs Vitals Vital Signs Date Time Temp Pulse Resp B/P Pulse Ox O2 Delivery O2 Flow Rate FiO2 03/04/17 12:00 100 03/04/17 12:00 98.4 37 132/98 96 Nasal Cannula 3.0 03/03/17 17:58 32 Intake and Output 03/03/17 03/03/17 03/04/17 15:00 23:00 07:00 Intake Total 600 ml 650 ml 550 ml Output Total 1400 ml 1167 ml 690 ml Balance -800 ml -517 ml -140 ml Results Result Diagram: 03/04/17 0500 03/04/17 0500 TI HILTON M.D. March 04, 2017 13:46
--- NOTE | 2017-03-04 13:48 | CONS ---
Date/Time of Note Date/Time of Note DATE: 03/04/17 TIME: 13:47 Assessment/Plan Assessment/Plan Additional Assessment/Plan Perforated colon status post surgery Severe sepsis Respiratory failure-extubated Low normal ejection fraction 50% Acute decompensated diastolic congestive heart failure Crohn's disease Acute blood loss anemia -Volume status continues to improve. Would continue diuretics at the current time and titrate down as patient responds. Maintain potassium above 4.0 and magnesium above 2.0. Consultation Date/Type/Reason Admit Date/Time Feb 01, 2017 at 03:10 Initial Consult Date 02/02/17 Type of Consultation: cv Referring Provider: VINCE PADGETT 24 HR Interval Summary Free Text/Dictation Patient seen and examined. No new cardiac issues as per nursing staff Exam/Review of Systems Vital Signs Vitals Vital Signs Date Time Temp Pulse Resp B/P Pulse Ox O2 Delivery O2 Flow Rate FiO2 03/04/17 13:00 99 22 127/88 96 Nasal Cannula 3.0 03/04/17 12:00 98.4 03/03/17 17:58 32 Intake and Output 03/03/17 03/03/17 03/04/17 15:00 23:00 07:00 Intake Total 600 ml 650 ml 550 ml Output Total 1400 ml 1167 ml 690 ml Balance -800 ml -517 ml -140 ml Exam Confused at times, no apparent distress Constitutional: alert Head: normocephalic Respiratory: other (Coarse breath sounds bilaterally, no wheezing) Cardiovascular: other (S1-S2 heard), regular rate and rhythm Gastrointestinal: bowel sounds, non-tender, soft Extremities: edema Results Result Diagram: 03/04/17 0500 03/04/17 0500 Results 24 hrs Laboratory Tests Test 03/04/17 05:00 White Blood Count 11.6 H Red Blood Count 2.91 L Hemoglobin 8.2 L Hematocrit 26.6 L Mean Corpuscular Volume 91.4 Mean Corpuscular Hemoglobin 28.2 L Mean Corpuscular Hemoglobin Concent 30.8 L Red Cell Distribution Width 14.5 Platelet Count 428 H Mean Platelet Volume 11.0 H Neutrophils % 79.1 H Lymphocytes % 6.3 L Monocytes % 8.0 Eosinophils % 4.6 Basophils % 0.4 Nucleated Red Blood Cells % 0.0 Neutrophils # 9.2 H Lymphocytes # 0.7 L Monocytes # 0.9 Eosinophils # 0.5 Basophils # 0.1 Nucleated Red Blood Cells # 0.0 Sodium Level 139 Potassium Level 4.1 Chloride Level 98 Carbon Dioxide Level 31 Anion Gap 14 Blood Urea Nitrogen 15 Creatinine 0.54 L Glucose Level 98 Calcium Level 8.6 Phosphorus Level 4.3 Magnesium Level 1.7 Iron Level < 10 L Total Iron Binding Capacity 147 L Percent Iron Saturation Medications Medications Current Medications Pantoprazole (Protonix Iv) 40 mg DAILY@06 IV Last administered on 03/04/17 05: 07; Admin Dose 40 MG; Start 02/01/17 at 06:00 Acetaminophen/ Hydrocodone Bitart ([place] (5/325)) 1 tab Q4H PRN PO PAIN LEVEL 4 -7 Last administered on 02/09/17 18:48; Admin Dose 1 TAB; Start 02/01/17 at 20: 30 Acetaminophen/ Hydrocodone Bitart ([place] (5/325)) 2 tab Q4H PRN PO PAIN LEVEL 7 -10; Start 02/01/17 at 20:30 Bisacodyl (Dulcolax Supp) 10 mg BID PRN [place] CONSTIPATION; Start 02/01/17 at 20: 30 Sodium Biphosphate/ Sodium Phosphate (Fleet Enema) 133 ml BID PRN [place] CONSTIPATION; Start 02/01/17 at 20:30 Acetaminophen (Tylenol Liquid) 650 mg Q4H PRN GTB PAIN AND OR ELEVATED TEMP Last administered on 02/27/17 12:37; Admin Dose 650 MG; Start 02/05/17 at 18:30 IV Flush (NS 10 ml) 10 ml PRN PRN IV IV PROTOCOL; Start 02/07/17 at 14:30 Diphenhydramine HCl 25 mg 25 mg Q6H PRN IV itching Last administered on 00:00; Admin Dose 25 MG; Start 02/07/17 at 20:00 Ondansetron HCl/ Sodium Chloride (Zofran Inj/NS) 54 ml @ 216 mls/hr Q6H PRN IV NAUSEA AND/OR VOMITING; Start 02/09/17 at 11:30 Lorazepam (Ativan) 1 mg Q1HWA PRN IM AGITATION/ANXIETY; Start 02/10/17 at 19:00 Trimethobenzamide HCl (Tigan) 200 mg Q6H PRN IM NAUSEA AND/OR VOMITING; Start 02/10/17 at 19:30 Morphine Sulfate (morphine) 2 mg Q4H PRN IV pain Last administered on 12:41; Admin Dose 2 MG; Start 02/20/17 at 18:30 Docusate Sodium 100 mg 100 mg QHS PRN NGT For Constipation; Start 02/25/17 at 21:00 Meropenem 100 ml @ 200 mls/hr Q8 IVPB Last administered on 03/04/17 05:08; Admin Dose 200 MLS/HR; Start 02/26/17 at 14:00 Fluconazole 100 ml @ 100 mls/hr Q24H IVPB Last administered on 03/03/17 17:09 ; Admin Dose 100 MLS/HR; Start 02/26/17 at 17:00 Acetaminophen 100 ml @ 50 mls/hr Q6H PRN IVPB fever Last administered on 08:55; Admin Dose 50 MLS/HR; Start 02/28/17 at 07:30 Total Parenteral Nutrition (Tpn) 1,000 ml @ 50 mls/hr Q20H IV Last administered on 03/04/17 05:08; Admin Dose 50 MLS/HR; Start 03/02/17 at 14:00 Enoxaparin Sodium 40 mg 40 mg DAILY SC Last administered on 03/04/17 08:24; Admin Dose 40 MG; Start 03/03/17 at 09:00 Vancomycin HCl/ Sodium Chloride (Vancocin/NS) 150 ml @ 75 mls/hr Q12H IVPB Last administered on 03/04/17 02:32; Admin Dose 75 MLS/HR; Start 03/03/17 at 15 :00 Keith Gandhi DO March 04, 2017 13:48
[2017-03-04] MEDS ORDERED: MAGNESIUM SULFATE 2 GM/50 ML 50 ML IVPB ONE (14:00)
[2017-03-04] MEDS: FLUCONAZOLE 200 MG/NS (PMX) 100 ML IVPB SCH (17:09)
[2017-03-04 23:53] LABS: AADO2 Arterial 92.5 mmHg (7.0-24.0); Allen Test ACCEPTAB; Arterial Base Excess 0.1 mmol/L (-3.0-3); Arterial COHb 0.3 % (0.0-3.0); Arterial Fraction of Oxyhgb 94.7 % (93.0-99.0); Arterial HCO3 27.6 mmol/L (22.0-26.0); Arterial MetHb 0.3 % (0.0-1.5); Arterial Total Hemglobin 10.3 g/dl (12.0-18.0); MODE NASAL CANNULA
[2017-03-05] VITALS (51 sets, daily range): BP systolic 83–152; BP diastolic 66–94; PULSE 84–144; RESP 14–35
[2017-03-05] MEDS ORDERED: LORAZEPAM 2 MG INJ IV ONE (00:38)
[2017-03-05 01:18] LABS: AADO2 Arterial 404.1 mmHg (7.0-24.0); Allen Test ACCEPTAB; Arterial Base Excess 2.5 mmol/L (-3.0-3); Arterial COHb 0.3 % (0.0-3.0); Arterial Fraction of Oxyhgb 98.5 % (93.0-99.0); Arterial HCO3 29.4 mmol/L (22.0-26.0); Arterial MetHb 0.3 % (0.0-1.5); Arterial Total Hemglobin 9.9 g/dl (12.0-18.0); Blood Gas IEPAP 18/5; MODE MASK - BIPAP
[2017-03-05] MEDS: TPN 1,000 ML IV SCH ×2 (01:51→23:46)
[2017-03-05 02:29] LABS: AADO2 Arterial 165.4 mmHg (7.0-24.0); Allen Test ACCEPTAB; Arterial COHb 0.3 % (0.0-3.0); Arterial Fraction of Oxyhgb 93.3 % (93.0-99.0); Arterial HCO3 30.3 mmol/L (22.0-26.0); Arterial MetHb 0.2 % (0.0-1.5); Arterial Total Hemglobin 9.8 g/dl (12.0-18.0); Blood Gas IEPAP 22/5; MODE BIPAP
[2017-03-05] MEDS: ALBUTEROL/IPRATROPIUM (NEB) 3 ML AMP HHN SCH ×4 (02:40→19:22)
[2017-03-05] MEDS: ACETYLCYSTEINE 20% 4 ML VIAL NEB SCH ×4 (02:51→19:22)
[2017-03-05] MEDS: VANCOMYCIN 750 MG in SOD CHLORIDE 0.9% 150 ML IVPB SCH ×2 (03:47→15:10)
[2017-03-05] MEDS: morphine 2 MG INJ IV PRN (04:14)
--- NOTE | 2017-03-05 04:40 | QN ---
Documentation Comment Called to ICU for stat emergency intubation. Patient had been extubated today and was failing with acidotic blood gas tachycardia and desaturation. ET intubation note: Patient was creatinine with bag mask ventilation to oxygen saturation 100%. RSI was used with 20 of etomidate 100 rocuronium. Size 7.5 ET tube was easily introduced through visualized cords using a MAC 4 blade. Tubes are visualized. Entitled CO2 color change was positive. Patient saturating 100% of the procedure with no change in vital signs. Tolerated well , no complications. GEOVANNY HORVATH DO March 05, 2017 04:40
[2017-03-05] MEDS ORDERED: ROCURONIUM 50 MG INJ IV ONE (05:00)
[2017-03-05] MEDS ORDERED: SOD CHLORIDE 0.9% 500 ML IV ONE (05:00)
[2017-03-05] MEDS ORDERED: ETOMIDATE 20 MG INJ IV ONE (05:00)
--- NOTE | 2017-03-05 05:11 | RADRPT ---
PROCEDURE: Chest. CLINICAL INDICATION: Chest pain. TECHNIQUE: Single frontal view of the chest was obtained. COMPARISON: 03/02/2017. FINDINGS: There is an endotracheal tube 5 cm above the hira. There is a right-sided PICC line extending to the SVC. The cardiac silhouette is within normal limits. The aortic arch is unremarkable. There a re hazy opacities bilaterally. There are bilateral small pleural effusions with underlying atelecta sis. There is no pneumothorax. IMPRESSION: Bilateral hazy opacities could represent interstitial edema or infiltrates, slightly decreased. Bilateral small pleural effusions with underlying atelectasis, slightly decreased. Tube and line in place. .Wayne Abarca MD, Date Time Electronically viewed and signed by .Wayne Abarca MD, MD on 03/05/2017 05:10 .T/
[2017-03-05] MEDS: PROPOFOL 100 ML IV SCH ×2 (05:14→17:49)
[2017-03-05] MEDS: FUROSEMIDE 20 MG INJ IV SCH ×2 (05:24→17:49)
[2017-03-05] MEDS: MEROPENEM 1 GM/100 ML (PMX) 100 ML IVPB SCH ×3 (05:31→23:45)
[2017-03-05] MEDS: PANTOPRAZOLE 40 MG INJ IV SCH (05:31)
[2017-03-05 05:34] LABS: AADO2 Arterial 322.3 mmHg (7.0-24.0); Allen Test ACCEPTAB; Arterial Base Excess 4.6 mmol/L (-3.0-3); Arterial COHb 0.3 % (0.0-3.0); Arterial Fraction of Oxyhgb 98.8 % (93.0-99.0); Arterial HCO3 30.3 mmol/L (22.0-26.0); Arterial MetHb 0.3 % (0.0-1.5); Arterial Total Hemglobin 9.8 g/dl (12.0-18.0); MODE VENT - AC
[2017-03-05 06:04] LABS: ADD SCAN DIFF NO
[2017-03-05 06:09] LABS: BASOPHIL # 0.1 10^3/ul (0.0-0.1); BASOPHILS % 0.3 % (0.0-2.0); EOSINOPHILS # 0.4 10^3/ul (0.0-0.5); EOSINOPHILS % 2.9 % (0.0-7.0); HEMATOCRIT 29.1 % (42.0-52.0); HEMOGLOBIN 8.9 g/dl (14.0-18.0); LYMPHOCYTES # 0.9 10^3/ul (0.8-2.9); LYMPHOCYTES % 5.5 % (15.0-51.0); MEAN CORPUSCULAR HEMOGLOBIN 27.9 pg (29.0-33.0); MEAN CORPUSCULAR HGB CONC 30.6 g/dl (32.0-37.0); MEAN CORPUSCULAR VOLUME 91.2 fl (82.0-101.0); MEAN PLATELET VOLUME 11.3 fl (7.4-10.4); MONOCYTE # 1.3 10^3/ul (0.3-0.9); MONOCYTES % 8.2 % (0.0-11.0); NEUTROPHIL # 12.6 10^3/ul (1.6-7.5); NEUTROPHILS % 81.5 % (39.0-77.0); PLATELET COUNT 467 10^3/UL (140-415); RED BLOOD COUNT 3.19 10^6/ul (4.70-6.10); RED CELL DISTRIBUTION WIDTH 14.7 % (11.5-14.5); WHITE BLOOD COUNT 15.4 10^3/ul (4.8-10.8)
[2017-03-05 06:24] LABS: ALBUMIN 2.5 g/dl (3.3-4.9); POTASSIUM 4.6 mmol/L (3.5-5.1)
[2017-03-05 06:26] LABS: CREATININE 0.53 mg/dl (0.61-1.24)
[2017-03-05 06:27] LABS: PHOSPHORUS 5.4 mg/dl (2.5-4.9)
[2017-03-05 06:28] LABS: CALCIUM 8.9 mg/dl (8.4-10.2)
[2017-03-05] MEDS: ENOXAPARIN 40 MG/0.4 ML SYG SC SCH (09:07)
--- NOTE | 2017-03-05 09:35 | CONS ---
Date/Time of Note Date/Time of Note DATE: 03/05/17 TIME: 09:31 Assessment/Plan Assessment/Plan Additional Assessment/Plan Chest X ray was reviewed from this morning which is essentially unremarkable. Endotracheal tube is at an adequate level. Ventilator setting; AC of 16, tidal volume 500, PEEP of 5, 60% FiO2. Patient currently on propofol at 10 mics micrograms per minute, TPN as well. Assessment recommendations; 1. Patient initially admitted for diverticulitis with rupture requiring laparoscopic sigmoid resection with colostomy. However patient could not be immediately extubated because of delirium as well as pneumonia got extubated and had to be reintubated for development of complete left lung atelectasis, got extubated again and had to be reintubated again this morning because of very poor mental status as well as ICU psychosis and worsening hypoxemia. 2. Multiple small abdominal abscesses, requiring continued IV antibiotics. 3. Ileus, on TPN. Next Continue current treatment. Patient did have a tracheostomy performed. Prognosis is guarded. Next 35 minutes of critical care time spent evaluating the patient. Consultation Date/Type/Reason Admit Date/Time Feb 01, 2017 at 03:10 Initial Consult Date 02/02/17 Type of Consultation: Pulmonary/critical care Referring Provider: VINCE PADGETT 24 HR Interval Summary Free Text/Dictation Patient condition has taken a turn for the worse. Patient had to be reintubated early this morning by the ER physician because of worsening hypoxemia and severe mental agitation. Next Miller; young male, orally intubated, sedated currently in no distress. Exam/Review of Systems Vital Signs Vitals Vital Signs Date Time Temp Pulse Resp B/P Pulse Ox O2 Delivery O2 Flow Rate FiO2 03/05/17 08:00 115 03/05/17 07:39 18 100 60 03/05/17 06:00 94/66 Mechanical Ventilator 03/05/17 04:00 98.2 03/05/17 02:00 5.0 Intake and Output 03/04/17 03/04/17 03/05/17 15:00 23:00 07:00 Intake Total 525 ml 775 ml 615.57 ml Output Total 970 ml 1020 ml 445 ml Balance -445 ml -245 ml 170.57 ml Exam HEENT exam is; supple neck, no JVD. No lymphadenopathy. Midline trachea. No thyromegaly. Orally intubated. Patient has fair dentition. Chest examination; clear to auscultation. S1-S2 audible, no murmurs. Regular rhythm. Abdomen examination; soft, colostomy in place bowel sounds audible. No organomegaly felt. Extremity exam is; trace edema. C[employer] WORK[employer] HEL[employer] examination; patient is sedated. Results Result Diagram: 03/05/17 0500 03/05/17 0500 Results 24 hrs Laboratory Tests Test 03/04/17 23:40 03/05/17 01:30 03/05/17 02:30 03/05/17 05:00 Blood Gas Specimen Source Blood arterial Blood arterial Blood arterial Arterial Blood Date Drawn 03/04/2017 11:49:27 PM 03/05/2017 1:10:44 AM 03/05/2017 2:20:50 AM Arterial Blood pH (Temp corrected) 7.281 *L 7.322 L 7.465 H Arterial Blood pCO2 (Temp correct) 59.9 H 58.2 H 43.1 Arterial Blood pO2 (Temp corrected) 94.7 250.7 H 70.2 L Arterial Blood HCO3 27.6 H 29.4 H 30.3 H Arterial Blood Base Excess 0.1 2.5 6.0 H Arterial Blood Oxygen Saturation 95.3 99.1 H 93.8 L Raffy Test ACCEPTAB ACCEPTAB ACCEPTAB Arterial Blood Gas Puncture Site Left Radial Left Radial Left Radial Arterial Blood Carboxyhemoglobin 0.3 0.3 0.3 Arterial Blood Methemoglobin 0.3 0.3 0.2 Blood Gas A-a O2 Differential 92.5 H 404.1 H 165.4 H Oxyhemoglobin Percent 94.7 98.5 93.3 Total Hemoglobin 10.3 L 9.9 L 9.8 L Blood Gas Temperature 37.0 37.0 37.0 Blood Gas Modality NASAL CANNULA MASK - BIPAP BIPAP FiO2 36.0 100.0 40.0 Blood Gas Critical Value Read Back DEV ALEYDA CHAPPELL Blood Gas Notified Whom KENYETTA KUMARI RCP Blood Gas Notified Time 03/04/2017 11:53:09 PM 03/05/2017 1:17:49 AM 03/05/2017 2:28:59 AM Blood Gas Respiration Rate 18.0 20.0 Blood Gas Actual Respiration Rate 27 20 Blood Gas Tidal Volume 433.0 639.0 Blood Gas IPAP/EPAP Ratio 04/03 08/03 White Blood Count 15.4 #H Red Blood Count 3.19 L Hemoglobin 8.9 L Hematocrit 29.1 L Mean Corpuscular Volume 91.2 Mean Corpuscular Hemoglobin 27.9 L Mean Corpuscular Hemoglobin Concent 30.6 L Red Cell Distribution Width 14.7 H Platelet Count 467 H Mean Platelet Volume 11.3 H Neutrophils % 81.5 H Lymphocytes % 5.5 L Monocytes % 8.2 Eosinophils % 2.9 Basophils % 0.3 Nucleated Red Blood Cells % 0.0 Neutrophils # 12.6 H Lymphocytes # 0.9 Monocytes # 1.3 H Eosinophils # 0.4 Basophils # 0.1 Nucleated Red Blood Cells # 0.0 Sodium Level 138 Potassium Level 4.6 Chloride Level 95 L Carbon Dioxide Level 30 Anion Gap 18 H Blood Urea Nitrogen 18 Creatinine 0.53 L Glucose Level 113 Calcium Level 8.9 Phosphorus Level 5.4 H Magnesium Level 1.8 Albumin 2.5 L Test 03/05/17 05:30 Blood Gas Specimen Source Blood arterial Arterial Blood Date Drawn 03/05/2017 5:15:50 AM Arterial Blood pH (Temp corrected) 7.393 Arterial Blood pCO2 (Temp correct) 50.9 H Arterial Blood pO2 (Temp corrected) 339.8 H Arterial Blood HCO3 30.3 H Arterial Blood Base Excess 4.6 H Arterial Blood Oxygen Saturation 99.4 H Raffy Test ACCEPTAB Arterial Blood Gas Puncture Site Left Radial Arterial Blood Carboxyhemoglobin 0.3 Arterial Blood Methemoglobin 0.3 Blood Gas A-a O2 Differential 322.3 H Oxyhemoglobin Percent 98.8 Total Hemoglobin 9.8 L Blood Gas Temperature 37.0 Blood Gas Respiration Rate 14.0 Blood Gas Actual Respiration Rate 14 Blood Gas Modality VENT - AC FiO2 100.0 Blood Gas Tidal Volume 500.0 Blood Gas Low PEEP Setting 5.0 Blood Gas Notified Whom MA Blood Gas Notified Time 03/05/2017 5:34:36 AM Medications Medications Current Medications Pantoprazole (Protonix Iv) 40 mg DAILY@06 IV Last administered on 03/05/17 05: 31; Admin Dose 40 MG; Start 02/01/17 at 06:00 Acetaminophen/ Hydrocodone Bitart ([place] (5/325)) 1 tab Q4H PRN PO PAIN LEVEL 4 -7 Last administered on 02/09/17 18:48; Admin Dose 1 TAB; Start 02/01/17 at 20: 30 Acetaminophen/ Hydrocodone Bitart ([place] (5/325)) 2 tab Q4H PRN PO PAIN LEVEL 7 -10; Start 02/01/17 at 20:30 Bisacodyl (Dulcolax Supp) 10 mg BID PRN [place] CONSTIPATION; Start 02/01/17 at 20: 30 Sodium Biphosphate/ Sodium Phosphate (Fleet Enema) 133 ml BID PRN [place] CONSTIPATION; Start 02/01/17 at 20:30 Acetaminophen (Tylenol Liquid) 650 mg Q4H PRN GTB PAIN AND OR ELEVATED TEMP Last administered on 02/27/17 12:37; Admin Dose 650 MG; Start 02/05/17 at 18:30 IV Flush (NS 10 ml) 10 ml PRN PRN IV IV PROTOCOL; Start 02/07/17 at 14:30 Diphenhydramine HCl 25 mg 25 mg Q6H PRN IV itching Last administered on 00:00; Admin Dose 25 MG; Start 02/07/17 at 20:00 Ondansetron HCl/ Sodium Chloride (Zofran Inj/NS) 54 ml @ 216 mls/hr Q6H PRN IV NAUSEA AND/OR VOMITING; Start 02/09/17 at 11:30 Lorazepam (Ativan) 1 mg Q1HWA PRN IM AGITATION/ANXIETY; Start 02/10/17 at 19:00 Trimethobenzamide HCl (Tigan) 200 mg Q6H PRN IM NAUSEA AND/OR VOMITING; Start 02/10/17 at 19:30 Morphine Sulfate (morphine) 2 mg Q4H PRN IV pain Last administered on 04:14; Admin Dose 2 MG; Start 02/20/17 at 18:30 Docusate Sodium 100 mg 100 mg QHS PRN NGT For Constipation; Start 02/25/17 at 21:00 Meropenem 100 ml @ 200 mls/hr Q8 IVPB Last administered on 03/05/17 05:31; Admin Dose 200 MLS/HR; Start 02/26/17 at 14:00 Fluconazole 100 ml @ 100 mls/hr Q24H IVPB Last administered on 03/04/17 17:09 ; Admin Dose 100 MLS/HR; Start 02/26/17 at 17:00 Acetaminophen 100 ml @ 50 mls/hr Q6H PRN IVPB fever Last administered on 08:55; Admin Dose 50 MLS/HR; Start 02/28/17 at 07:30 Total Parenteral Nutrition (Tpn) 1,000 ml @ 50 mls/hr Q20H IV Last administered on 03/05/17 01:51; Admin Dose 50 MLS/HR; Start 03/02/17 at 14:00 Enoxaparin Sodium 40 mg 40 mg DAILY SC Last administered on 03/05/17 09:07; Admin Dose 40 MG; Start 03/03/17 at 09:00 Vancomycin HCl 750 mg/Sodium Chloride 150 ml @ 75 mls/hr Q12H IVPB Last administered on 03/05/17 03:47; Admin Dose 75 MLS/HR; Start 03/03/17 at 15:00 Propofol (Diprivan) 100 ml @ 2.787 mls/ hr Q12H IV Last administered on 05:14; Admin Dose 5.574 MLS/HR; Start 03/05/17 at 05:00 RICHAR ADRIAN March 05, 2017 09:35
--- NOTE | 2017-03-05 09:51 | CONS ---
Date/Time of Note Date/Time of Note DATE: 03/05/17 TIME: 09:50 Assessment/Plan Assessment/Plan Additional Assessment/Plan Perforated colon status post surgery Severe sepsis Respiratory failure-reintubated Low normal ejection fraction 50% Acute decompensated diastolic congestive heart failure Crohn's disease Acute blood loss anemia -Unfortunately, patient with worsening respiratory status overnight and this morning and reintubated. Would continue IV diuretics as blood pressure and renal function permits. Maintain potassium above 4.0 and magnesium above 2.0. Consultation Date/Type/Reason Admit Date/Time Feb 01, 2017 at 03:10 Initial Consult Date 02/02/17 Type of Consultation: cv Referring Provider: VINCE PADGETT 24 HR Interval Summary Free Text/Dictation Patient with worsening respiratory status overnight and reintubated this morning. Exam/Review of Systems Vital Signs Vitals Vital Signs Date Time Temp Pulse Resp B/P Pulse Ox O2 Delivery O2 Flow Rate FiO2 03/05/17 09:27 101 16 100 60 03/05/17 06:00 94/66 Mechanical Ventilator 03/05/17 04:00 98.2 03/05/17 02:00 5.0 Intake and Output 03/04/17 03/04/17 03/05/17 15:00 23:00 07:00 Intake Total 525 ml 775 ml 615.57 ml Output Total 970 ml 1020 ml 445 ml Balance -445 ml -245 ml 170.57 ml Exam Sedated and intubated, no apparent distress Head: normocephalic ENMT: intubated Respiratory: other (Coarse breath sounds bilaterally, no wheezing) Cardiovascular: other (S1-S2 heard), regular rate and rhythm Gastrointestinal: bowel sounds, non-tender, soft Extremities: edema Results Result Diagram: 03/05/17 0500 03/05/17 0500 Results 24 hrs Laboratory Tests Test 03/04/17 23:40 03/05/17 01:30 03/05/17 02:30 03/05/17 05:00 Blood Gas Specimen Source Blood arterial Blood arterial Blood arterial Arterial Blood Date Drawn 03/04/2017 11:49:27 PM 03/05/2017 1:10:44 AM 03/05/2017 2:20:50 AM Arterial Blood pH (Temp corrected) 7.281 *L 7.322 L 7.465 H Arterial Blood pCO2 (Temp correct) 59.9 H 58.2 H 43.1 Arterial Blood pO2 (Temp corrected) 94.7 250.7 H 70.2 L Arterial Blood HCO3 27.6 H 29.4 H 30.3 H Arterial Blood Base Excess 0.1 2.5 6.0 H Arterial Blood Oxygen Saturation 95.3 99.1 H 93.8 L Raffy Test ACCEPTAB ACCEPTAB ACCEPTAB Arterial Blood Gas Puncture Site Left Radial Left Radial Left Radial Arterial Blood Carboxyhemoglobin 0.3 0.3 0.3 Arterial Blood Methemoglobin 0.3 0.3 0.2 Blood Gas A-a O2 Differential 92.5 H 404.1 H 165.4 H Oxyhemoglobin Percent 94.7 98.5 93.3 Total Hemoglobin 10.3 L 9.9 L 9.8 L Blood Gas Temperature 37.0 37.0 37.0 Blood Gas Modality NASAL CANNULA MASK - BIPAP BIPAP FiO2 36.0 100.0 40.0 Blood Gas Critical Value Read Back MARCELA MAYNARD RN Blood Gas Notified Whom KENYETTA KUMARI RCP Blood Gas Notified Time 03/04/2017 11:53:09 PM 03/05/2017 1:17:49 AM 03/05/2017 2:28:59 AM Blood Gas Respiration Rate 18.0 20.0 Blood Gas Actual Respiration Rate 27 20 Blood Gas Tidal Volume 433.0 639.0 Blood Gas IPAP/EPAP Ratio 18/ 22/5 White Blood Count 15.4 #H Red Blood Count 3.19 L Hemoglobin 8.9 L Hematocrit 29.1 L Mean Corpuscular Volume 91.2 Mean Corpuscular Hemoglobin 27.9 L Mean Corpuscular Hemoglobin Concent 30.6 L Red Cell Distribution Width 14.7 H Platelet Count 467 H Mean Platelet Volume 11.3 H Neutrophils % 81.5 H Lymphocytes % 5.5 L Monocytes % 8.2 Eosinophils % 2.9 Basophils % 0.3 Nucleated Red Blood Cells % 0.0 Neutrophils # 12.6 H Lymphocytes # 0.9 Monocytes # 1.3 H Eosinophils # 0.4 Basophils # 0.1 Nucleated Red Blood Cells # 0.0 Sodium Level 138 Potassium Level 4.6 Chloride Level 95 L Carbon Dioxide Level 30 Anion Gap 18 H Blood Urea Nitrogen 18 Creatinine 0.53 L Glucose Level 113 Calcium Level 8.9 Phosphorus Level 5.4 H Magnesium Level 1.8 Albumin 2.5 L Test 03/05/17 05:30 Blood Gas Specimen Source Blood arterial Arterial Blood Date Drawn 03/05/2017 5:15:50 AM Arterial Blood pH (Temp corrected) 7.393 Arterial Blood pCO2 (Temp correct) 50.9 H Arterial Blood pO2 (Temp corrected) 339.8 H Arterial Blood HCO3 30.3 H Arterial Blood Base Excess 4.6 H Arterial Blood Oxygen Saturation 99.4 H Raffy Test ACCEPTAB Arterial Blood Gas Puncture Site Left Radial Arterial Blood Carboxyhemoglobin 0.3 Arterial Blood Methemoglobin 0.3 Blood Gas A-a O2 Differential 322.3 H Oxyhemoglobin Percent 98.8 Total Hemoglobin 9.8 L Blood Gas Temperature 37.0 Blood Gas Respiration Rate 14.0 Blood Gas Actual Respiration Rate 14 Blood Gas Modality VENT - AC FiO2 100.0 Blood Gas Tidal Volume 500.0 Blood Gas Low PEEP Setting 5.0 Blood Gas Notified Whom MA Blood Gas Notified Time 03/05/2017 5:34:36 AM Medications Medications Current Medications Pantoprazole (Protonix Iv) 40 mg DAILY@06 IV Last administered on 03/05/17 05: 31; Admin Dose 40 MG; Start 02/01/17 at 06:00 Acetaminophen/ Hydrocodone Bitart ([place] (5/325)) 1 tab Q4H PRN PO PAIN LEVEL 4 -7 Last administered on 02/09/17 18:48; Admin Dose 1 TAB; Start 02/01/17 at 20: 30 Acetaminophen/ Hydrocodone Bitart ([place] (5/325)) 2 tab Q4H PRN PO PAIN LEVEL 7 -10; Start 02/01/17 at 20:30 Bisacodyl (Dulcolax Supp) 10 mg BID PRN [place] CONSTIPATION; Start 02/01/17 at 20: 30 Sodium Biphosphate/ Sodium Phosphate (Fleet Enema) 133 ml BID PRN [place] CONSTIPATION; Start 02/01/17 at 20:30 Acetaminophen (Tylenol Liquid) 650 mg Q4H PRN GTB PAIN AND OR ELEVATED TEMP Last administered on 02/27/17 12:37; Admin Dose 650 MG; Start 02/05/17 at 18:30 IV Flush (NS 10 ml) 10 ml PRN PRN IV IV PROTOCOL; Start 02/07/17 at 14:30 Diphenhydramine HCl 25 mg 25 mg Q6H PRN IV itching Last administered on 00:00; Admin Dose 25 MG; Start 02/07/17 at 20:00 Ondansetron HCl/ Sodium Chloride (Zofran Inj/NS) 54 ml @ 216 mls/hr Q6H PRN IV NAUSEA AND/OR VOMITING; Start 02/09/17 at 11:30 Lorazepam (Ativan) 1 mg Q1HWA PRN IM AGITATION/ANXIETY; Start 02/10/17 at 19:00 Trimethobenzamide HCl (Tigan) 200 mg Q6H PRN IM NAUSEA AND/OR VOMITING; Start 02/10/17 at 19:30 Morphine Sulfate (morphine) 2 mg Q4H PRN IV pain Last administered on 04:14; Admin Dose 2 MG; Start 02/20/17 at 18:30 Docusate Sodium 100 mg 100 mg QHS PRN NGT For Constipation; Start 02/25/17 at 21:00 Meropenem 100 ml @ 200 mls/hr Q8 IVPB Last administered on 03/05/17 05:31; Admin Dose 200 MLS/HR; Start 02/26/17 at 14:00 Fluconazole 100 ml @ 100 mls/hr Q24H IVPB Last administered on 03/04/17 17:09 ; Admin Dose 100 MLS/HR; Start 02/26/17 at 17:00 Acetaminophen 100 ml @ 50 mls/hr Q6H PRN IVPB fever Last administered on 08:55; Admin Dose 50 MLS/HR; Start 02/28/17 at 07:30 Total Parenteral Nutrition (Tpn) 1,000 ml @ 50 mls/hr Q20H IV Last administered on 03/05/17 01:51; Admin Dose 50 MLS/HR; Start 03/02/17 at 14:00 Enoxaparin Sodium 40 mg 40 mg DAILY SC Last administered on 03/05/17 09:07; Admin Dose 40 MG; Start 03/03/17 at 09:00 Vancomycin HCl 750 mg/Sodium Chloride 150 ml @ 75 mls/hr Q12H IVPB Last administered on 03/05/17 03:47; Admin Dose 75 MLS/HR; Start 03/03/17 at 15:00 Propofol (Diprivan) 100 ml @ 2.787 mls/ hr Q12H IV Last administered on t 05:14; Admin Dose 5.574 MLS/HR; Start 03/05/17 at 05:00 Keith Gandhi DO March 05, 2017 09:51
[2017-03-05 12:13] LABS: HEMOGLOBIN 6.7 g/dl (14.0-18.0)
--- NOTE | 2017-03-05 12:40 | PN ---
Date/Time of Note Date/Time of Note DATE: 03/05/17 TIME: 12:37 Assessment/Plan VTE Prophylaxis VTE Prophylaxis Intervention: LMWH Lines/Catheters IV Catheter Type (from Nrs): PICC Line Central line still needed: Yes Urinary Cath still in place: Yes Reason Cath still needed: terminal illness/intractable pain Assessment/Plan Assessment/Plan 1. Perforated sigmoid colon 2/2 Severe Crohn's colitis * S/p Urgent Open Cronin's procedure with end colostomy, liver biopsy and abdominal lavage 02/01/17P * S/p post operative paracolic abscess drained via CT 02/14/[address] * S/p Exploration of abdomen through recent laparotomy site with closure of fascia done 02/15/17 for Fascia dehiscence 2. Recurrent Resp failure: Extubated then reintubated 02/13, extubated, then reintubated 02/25/17, then extubated 02/27 and reintubated 03/04 * Status post bronchoscopy with clearance of extensive secretions in the left mainstem bronchus with improved aeration radiographically 02/25 * Pulm concerned about possible neuromuscular injury contributing to recurrent resp failure 3. Exacerbation of Crohn's disease with acute colitis and diarrhea Cultures earlier were growing ecoli / proteus / enterococcus 4. Multifocal PNA + Mook Pleural effusions - Effusions likely hydrostatic from hypoalbuminemia. + fevers - monitor, ID managing abx and antifungal 5. Severe Sepsis with lactic acidosis 2/2 severe colitis / PNA - now with fevers again though last episode was >24hrs ago, back on abx. - CT A/P showing new multiple abscesses / infection not likely from these per surgery - Continue abx per ID 6. S/p Systemic shock (hypovolemic +septic) - again, see # 5, abx: Resolved 7. TPN therapy for low prealbumin + tube feeds: patient is not eating very well yet, begin weaning when appetite improved. 8. Hx of heavy alcohol and tobacco use just until admission - monitor 9. Probable underlying COPD and Cirrhosis based on hx which explains hypoalbuminemia and anasarca - monitor 10. Severe recurrent anemia likely 2/2 occult blood loss from multiple sources : PRN transfusions 11. Hypomagnesemia - replete as needed 12. Encephalopathy / Confusion : patient may have suffered some anoxic brain insult during the course of his hospitalization / May improve / continue restraints for now as needed/ will start low dose seroquel when less of an aspiration risk /MRI pending Dispo: Due to recurrent respiratory failure, and vent dependence, patient may benefit from tracheostomy placement. Will obtain palliative care consultation to assist the family in making this decision Continue all other ICU supportive care CRITICAL CARE TIME: >35 mins Subjective 24 Hr Interval Summary Free Text/Dictation Patient got reintubated this morning again for hypoxemia and worsening mental status. Currently intubated and sedated. Exam/Review of Systems Vital Signs Vitals Vital Signs Date Time Temp Pulse Resp B/P Pulse Ox O2 Delivery O2 Flow Rate FiO2 03/05/17 11:25 109 16 100 50 03/05/17 10:30 99/73 03/05/17 10:00 Mechanical Ventilator 03/05/17 08:00 99.1 03/05/17 02:00 5.0 Intake and Output 03/04/17 03/04/17 03/05/17 15:00 23:00 07:00 Intake Total 525 ml 775 ml 615.57 ml Output Total 970 ml 1020 ml 445 ml Balance -445 ml -245 ml 170.57 ml Exam Constitutional: intubated, comfortable on vent Head: normocephalic Eyes: PERRL, icteric ENMT: Intubated Respiratory: some diminished breath sounds, No wheezing Cardiovascular: regular rate and rhythm, No murmurs/extra sounds Gastrointestinal: other (midline surgical dressing with wound vac / L sided colostomy and drain / colostomy has dark green fluidy stool), soft otherwise Genitourinary - Male: other (significant scrotal and penile edema) Musculoskeletal: swelling (generalized severe anasarca) Extremities: pitting pedal edema Neurological: intubated Results Result Diagram: 03/05/17 0500 03/05/17 0500 Results 24 hrs Laboratory Tests Test 03/04/17 23:40 03/05/17 01:30 03/05/17 02:30 03/05/17 05:00 Blood Gas Specimen Source Blood arterial Blood arterial Blood arterial Arterial Blood Date Drawn 03/04/2017 11:49:27 PM 03/05/2017 1:10:44 AM 03/05/2017 2:20:50 AM Arterial Blood pH (Temp corrected) 7.281 *L 7.322 L 7.465 H Arterial Blood pCO2 (Temp correct) 59.9 H 58.2 H 43.1 Arterial Blood pO2 (Temp corrected) 94.7 250.7 H 70.2 L Arterial Blood HCO3 27.6 H 29.4 H 30.3 H Arterial Blood Base Excess 0.1 2.5 6.0 H Arterial Blood Oxygen Saturation 95.3 99.1 H 93.8 L Raffy Test ACCEPTAB ACCEPTAB ACCEPTAB Arterial Blood Gas Puncture Site Left Radial Left Radial Left Radial Arterial Blood Carboxyhemoglobin 0.3 0.3 0.3 Arterial Blood Methemoglobin 0.3 0.3 0.2 Blood Gas A-a O2 Differential 92.5 H 404.1 H 165.4 H Oxyhemoglobin Percent 94.7 98.5 93.3 Total Hemoglobin 10.3 L 9.9 L 9.8 L Blood Gas Temperature 37.0 37.0 37.0 Blood Gas Modality NASAL CANNULA MASK - BIPAP BIPAP FiO2 36.0 100.0 40.0 Blood Gas Critical Value Read Back MARCELA MAYNARD RN Blood Gas Notified Whom KENYETTA KUMARI RCP Blood Gas Notified Time 03/04/2017 11:53:09 PM 03/05/2017 1:17:49 AM 03/05/2017 2:28:59 AM Blood Gas Respiration Rate 18.0 20.0 Blood Gas Actual Respiration Rate 27 20 Blood Gas Tidal Volume 433.0 639.0 Blood Gas IPAP/EPAP Ratio 18/ 22/5 White Blood Count 15.4 #H Red Blood Count 3.19 L Hemoglobin 8.9 L Hematocrit 29.1 L Mean Corpuscular Volume 91.2 Mean Corpuscular Hemoglobin 27.9 L Mean Corpuscular Hemoglobin Concent 30.6 L Red Cell Distribution Width 14.7 H Platelet Count 467 H Mean Platelet Volume 11.3 H Neutrophils % 81.5 H Lymphocytes % 5.5 L Monocytes % 8.2 Eosinophils % 2.9 Basophils % 0.3 Nucleated Red Blood Cells % 0.0 Neutrophils # 12.6 H Lymphocytes # 0.9 Monocytes # 1.3 H Eosinophils # 0.4 Basophils # 0.1 Nucleated Red Blood Cells # 0.0 Sodium Level 138 Potassium Level 4.6 Chloride Level 95 L Carbon Dioxide Level 30 Anion Gap 18 H Blood Urea Nitrogen 18 Creatinine 0.53 L Glucose Level 113 Calcium Level 8.9 Phosphorus Level 5.4 H Magnesium Level 1.8 Albumin 2.5 L Test 03/05/17 05:30 Blood Gas Specimen Source Blood arterial Arterial Blood Date Drawn 03/05/2017 5:15:50 AM Arterial Blood pH (Temp corrected) 7.393 Arterial Blood pCO2 (Temp correct) 50.9 H Arterial Blood pO2 (Temp corrected) 339.8 H Arterial Blood HCO3 30.3 H Arterial Blood Base Excess 4.6 H Arterial Blood Oxygen Saturation 99.4 H Raffy Test ACCEPTAB Arterial Blood Gas Puncture Site Left Radial Arterial Blood Carboxyhemoglobin 0.3 Arterial Blood Methemoglobin 0.3 Blood Gas A-a O2 Differential 322.3 H Oxyhemoglobin Percent 98.8 Total Hemoglobin 9.8 L Blood Gas Temperature 37.0 Blood Gas Respiration Rate 14.0 Blood Gas Actual Respiration Rate 14 Blood Gas Modality VENT - AC FiO2 100.0 Blood Gas Tidal Volume 500.0 Blood Gas Low PEEP Setting 5.0 Blood Gas Notified Whom MA Blood Gas Notified Time 03/05/2017 5:34:36 AM Medications Medications Current Medications Pantoprazole (Protonix Iv) 40 mg DAILY@06 IV Last administered on 03/05/17 05: 31; Admin Dose 40 MG; Start 02/01/17 at 06:00 Acetaminophen/ Hydrocodone Bitart ([place] (5/325)) 1 tab Q4H PRN PO PAIN LEVEL 4 -7 Last administered on 02/09/17 18:48; Admin Dose 1 TAB; Start 02/01/17 at 20: 30 Acetaminophen/ Hydrocodone Bitart ([place] (5/325)) 2 tab Q4H PRN PO PAIN LEVEL 7 -10; Start 02/01/17 at 20:30 Bisacodyl (Dulcolax Supp) 10 mg BID PRN MS CONSTIPATION; Start 02/01/17 at 20: 30 Sodium Biphosphate/ Sodium Phosphate (Fleet Enema) 133 ml BID PRN MS CONSTIPATION; Start 02/01/17 at 20:30 Acetaminophen (Tylenol Liquid) 650 mg Q4H PRN GTB PAIN AND OR ELEVATED TEMP Last administered on 02/27/17 12:37; Admin Dose 650 MG; Start 02/05/17 at 18:30 IV Flush (NS 10 ml) 10 ml PRN PRN IV IV PROTOCOL; Start 02/07/17 at 14:30 Diphenhydramine HCl 25 mg 25 mg Q6H PRN IV itching Last administered on 00:00; Admin Dose 25 MG; Start 02/07/17 at 20:00 Ondansetron HCl/ Sodium Chloride (Zofran Inj/NS) 54 ml @ 216 mls/hr Q6H PRN IV NAUSEA AND/OR VOMITING; Start 02/09/17 at 11:30 Lorazepam (Ativan) 1 mg Q1HWA PRN IM AGITATION/ANXIETY; Start 02/10/17 at 19:00 Trimethobenzamide HCl (Tigan) 200 mg Q6H PRN IM NAUSEA AND/OR VOMITING; Start 02/10/17 at 19:30 Morphine Sulfate (morphine) 2 mg Q4H PRN IV pain Last administered on 04:14; Admin Dose 2 MG; Start 02/20/17 at 18:30 Docusate Sodium 100 mg 100 mg QHS PRN NGT For Constipation; Start 02/25/17 at 21:00 Meropenem 100 ml @ 200 mls/hr Q8 IVPB Last administered on 03/05/17 05:31; Admin Dose 200 MLS/HR; Start 02/26/17 at 14:00 Fluconazole 100 ml @ 100 mls/hr Q24H IVPB Last administered on 03/04/17 17:09 ; Admin Dose 100 MLS/HR; Start 02/26/17 at 17:00 Acetaminophen 100 ml @ 50 mls/hr Q6H PRN IVPB fever Last administered on 08:55; Admin Dose 50 MLS/HR; Start 02/28/17 at 07:30 Total Parenteral Nutrition (Tpn) 1,000 ml @ 50 mls/hr Q20H IV Last administered on 03/05/17 01:51; Admin Dose 50 MLS/HR; Start 03/02/17 at 14:00 Enoxaparin Sodium 40 mg 40 mg DAILY SC Last administered on 03/05/17 09:07; Admin Dose 40 MG; Start 03/03/17 at 09:00 Vancomycin HCl 750 mg/Sodium Chloride 150 ml @ 75 mls/hr Q12H IVPB Last administered on 03/05/17 03:47; Admin Dose 75 MLS/HR; Start 03/03/17 at 15:00 Propofol (Diprivan) 100 ml @ 2.787 mls/ hr Q12H IV Last administered on t 05:14; Admin Dose 5.574 MLS/HR; Start 03/05/17 at 05:00 Procedures Procedures PROCEDURE: Chest. CLINICAL INDICATION: Chest pain. TECHNIQUE: Single frontal view of the chest was obtained. COMPARISON: 03/02/2017. FINDINGS: There is an endotracheal tube 5 cm above the hira. There is a right-sided PICC line extending to the SVC. The cardiac silhouette is within normal limits. The aortic arch is unremarkable. There are hazy opacities bilaterally. There are bilateral small pleural effusions with underlying atelectasis. There is no pneumothorax. IMPRESSION: Bilateral hazy opacities could represent interstitial edema or infiltrates, slightly decreased. Bilateral small pleural effusions with underlying atelectasis, slightly decreased. Tube and line in place. .Wayne Abarca MD, MD Date Time Electronically viewed and signed by .Wayne Abarca MD, on 03/05/2017 05:10 .T/ CC: MICK HERRERA MD, B[place] M. March 05, 2017 12:40
--- NOTE | 2017-03-05 13:56 | RADRPT ---
PROCEDURE: XR Chest AP portable CLINICAL INDICATION: Endotracheal tube placement verification TECHNIQUE: An AP portable radiograph of the chest was submitted. COMPARISON: Stated earlier on the same date FINDINGS: Support Hardware: The endotracheal tube is stable in positioning with the tip at the level of T4. T he right upper extremity PICC catheter is also stable in positioning. Cardiovascular: The cardiovascular silhouette appears unremarkable. Lung Clark: There is again atelectasis and possibly infiltrate within the left lower lobe and subse gmental atelectasis is seen within the medial right lung base. Pleural Spaces: A small left pleural fluid accumulation cannot be excluded as the costophrenic angle is blunted. No pneumothorax is evident. Osseous Structures: The osseous structures appear intact. Soft Tissues: The soft tissues appear unremarkable. IMPRESSION: 1. The endotracheal tube and the right upper extremity PICC catheter remain satisfactorily position ed. 2. Persistent atelectasis involving the left lower lobe with subsegmental atelectasis again seen at the medial right lung base. A small left pleural fluid accumulation can again not be excluded. Physician Lani Date Time Electronically viewed and signed by Physician Lani on 03/05/2017 13:55 /
--- NOTE | 2017-03-05 15:15 | PN ---
Date/Time of Note Date/Time of Note DATE: 03/05/17 TIME: 15:09 Assessment/Plan Lines/Catheters IV Catheter Type (from Nrsg): PICC Line Zeng in Place (from Nrsg): Yes Assessment/Plan Assessment/Plan [facility] Progress Note Date of Service: 03/05/17 Today's Impression & Plan: Overall semi stable with need for mechanical ventilation early this am. This is the third episode. PaO2 appropriately increased and therefore argues against PE. Not on pressors, but SBP slightly on the low side. Abd remains benign. No evidence for peritonitis or major symptomatic abscess. Ostomy still pink and viable and productive. 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 Discussed option of trach with family (two separate phone conversions; one with his father; separate phone call to his mother). Answered all questions. Family understandably anxious and frustrated about lack of clinical improvement. Remains high risk for complication given perforated colon in the setting of uncontrolled Crohn's. Recovery will take extra time with likely need for rehab. With above assessment, I've recommended the following for today: 1. Cont current cares in ICU 2. F/u on cultures 3. Cont TPN (goal should be about 1800 to 2000 kCal per day) 4. Pulmonary toilet 5. Cont gentle diuresis to BMP < 200 6. Social work and case management to please start working on possible rehab vs. home health nurse set up 7. Increase activity 8. Increase ICS 9. Wean off broad spec antimicrobials 10. Labs in am 11. Cont current wound care with wound vac 12. F/u on hematology w/u 13. Add HIV, hep virus panel, LFT's, lactic acid, lipase and BNP to tomorrow's labs 14. F/u on brain MRI 15. Continue prophylactic anticoagulation (no contraindication from surgical standpoint) 16. Set up for trach for early next week Thank you again for your great care of this very pleasant patient and wonderful family. If there are any questions, please feel free to call me at [phone]. TOTAL VISIT TIME: 20 minutes of which more than half was spent in [id number] discussion with the patient, possibly including family, as well as coordination of care between multiple physicians and providers. Disclaimer: Inadvertent spelling or grammatical errors are likely due to EHR/ dictation software use and do not reflect on the overall quality of patient care. Updated Clinical Summary: A very pleasant 46-year-old gentleman with history of Crohn's disease as well as prior surgery for anal fistula approximately 5 years ago, and a torn meniscus repair on the left knee, presenting with abdominal pain associated with a few weeks' duration of diarrhea. S/p an otherwise uncomplicated diagnostic laparoscopy was converted first to hand assist and then to open exploration when perforated sigmoid colon was found and it was resected with a Deena type procedure and end colostomy as well as core needle liver biopsy, segment 5, due to presence of fatty liver disease, lysis of adhesions, and abdominal lavage on 02/01/17. Failed to wean off the vent through 02/06/17. PE was evaluated 02/07/[address] angio and no evidence found. CT abd/pelvis also did not show actionable findings (no abscess; bowel thickening somewhat expected). Extubated 02/07/17. A[employer]ION SPECIALIST called early am 02/13/17 with a few minutes coding, requiring intubation and transfer to ICU. Fortunately, mentally appears to be intact and not on pressors. Lactic acid and CO2 normal with benign appearing abd and viable ostomy. Complicated by fascia dehiscence. S/p exploration of abdomen through recent laparotomy, primary closure of fascia and abdominal lavage on 02/15/17. Reintubated 02/25/17 for bronchoscopy to remove mucus plug. Extubated 02/28/17. Re-intubated 03/05/17 due to respiratory failure and hypoxia. COMORBIDITIES: 1. Crohn disease with perforation of sigmoid colon and sepsis. S/p an otherwise uncomplicated diagnostic laparoscopy was converted first to hand assist and then to open exploration when perforated sigmoid colon was found and it was resected with a Deena type procedure and end colostomy as well as core needle liver biopsy, segment 5, due to presence of fatty liver disease, lysis of adhesions, and abdominal lavage on 02/01/17. Complicated by respiratory failure, return trip to ICU and fascia dehiscence. S/p exploration of abdomen through recent laparotomy, primary closure of fascia and abdominal lavage on 02/15. 2. Repair of a fistula approximately 5 years ago. 3. Torn meniscus on the left knee status post repair. Subjective: Events as above; required reintubation due to respiratory failure/hypoxia; no major complaints; no major SOB and no CP; + BM Objective: Vitals: See below Exam: GENERAL: On exam, the patient was laying in bed and appeared to be comfortable and in no acute distress. Intubated and on the vent. Eyes closed, but opens to voice. ABDOMEN: Soft, nontender and nondistended. Incision wound vac dressings are clean without any evidence of obvious erythema, edema, discharge, or hernia. Wound vac with no sig drainage. Surgery drain site clean. Ostomy pink and viable ; some air and stool in the bag. There are no peritoneal signs or guarding. SKIN: Skin appears to be pink and feels warm to touch. NEUROLOGIC: Patient's eyes closed, but opens to voice and follows simple commands appropriately. Exam/Review of Systems Vital Signs Vitals Vital Signs Date Time Temp Pulse Resp B/P Pulse Ox O2 Delivery O2 Flow Rate FiO2 03/05/17 14:30 110 18 92/68 03/05/17 14:00 96 Mechanical Ventilator 03/05/17 13:22 45 03/05/17 12:00 99.6 03/05/17 02:00 5.0 Intake and Output 03/04/17 03/04/17 03/05/17 15:00 23:00 07:00 Intake Total 525 ml 775 ml 615.57 ml Output Total 970 ml 1020 ml 445 ml Balance -445 ml -245 ml 170.57 ml Results Result Diagram: 03/05/17 0500 03/05/17 0500 TI HILTON M.D. March 05, 2017 15:15
[2017-03-05 15:55] LABS: HAAIG REFLEX REFLEX FILED
[2017-03-05] MEDS: ACETAMINOPHEN 1000MG/100ML IV 100 ML IVPB PRN (16:09)
[2017-03-05 17:15] LABS: HEPATITIS B CORE ANTIBODY NEGATIVE (NEGATIVE)
[2017-03-05] MEDS: FLUCONAZOLE 200 MG/NS (PMX) 100 ML IVPB SCH (17:48)
--- NOTE | 2017-03-05 23:14 | RADRPT ---
PROCEDURE: MRI Brain with and without contrast. CLINICAL INDICATION: Altered mental status, history of perforated colon. TECHNIQUE: An MRI of the brain was performed with and without contrast utilizing the following seq uences: Sagittal T1 weighted, sagittal FLAIR, axial T1, axial FLAIR, axial T2 weighted, axial diffu shelly weighted (EPI technique [id number]), axial ADC mapping, and post contrast axial and coronal T1 weig hted, and axial FLAIR. 10 cc of Magnevist was given intravenously without complication. The images were reviewed on a high-resolution PACS workstation. COMPARISON: No prior studies are available for comparison. FINDINGS: Diffusion weighted sequences demonstrate no evidence of acute lacunar or lobar infarction. There is no intracranial hemorrhage, extra-axial fluid collection, mass lesion, midline shift or hydrocephal ous. There is mild prominence of the cerebral sulci, lateral and third ventricles. The basal cister ns are patent. The signal intensity is normal throughout the cerebrum, brain stem and cerebellum. Normal flow voids are visible the proximal intracranial arteries and dural sinuses, indicating paten cy. The midline structures are intact. The postcontrast images show no abnormal parenchymal, leptom eningeal, or dural enhancement. There are moderate inflammatory changes of the left frontal sinus, left anterior ethmoid air cells a nd the left maxillary sinus. There is mild fluid opacification of the mastoid air cells and middle ear cavities. The orbits, calvarium and extracranial soft tissues are normal in appearance. IMPRESSION: 1. No acute intracranial abnormality. No intracranial hemorrhage, enhancing mass lesion, infarctio n or hydrocephalous. 2. Mild peripheral and central cerebral volume loss. 3. Moderate inflammatory changes of the left frontal sinus, ethmoid air cells and maxillary sinus. Given the distribution of findings, concern is raised for possible ostiomeatal unit obstruction. 4. Mild inflammatory changes of the bilateral mastoid air cells without evidence of coalescent mast oiditis. RPTAT: HGAS .Romeo Hill MD, Date Time Electronically viewed and signed by .Romeo Hill MD, on 03/05/2017 23:13 .S/
[2017-03-06] VITALS (55 sets, daily range): BP systolic 95–134; BP diastolic 67–92; PULSE 84–126; RESP 16–34
[2017-03-06] MEDS: ALBUTEROL/IPRATROPIUM (NEB) 3 ML AMP HHN SCH ×4 (01:08→20:00)
[2017-03-06] MEDS: ACETYLCYSTEINE 20% 4 ML VIAL NEB SCH ×4 (01:08→19:50)
[2017-03-06] MEDS: VANCOMYCIN 750 MG in SOD CHLORIDE 0.9% 150 ML IVPB SCH ×2 (03:00→15:46)
[2017-03-06 05:48] LABS: ADD SCAN DIFF NO
[2017-03-06] MEDS: MEROPENEM 1 GM/100 ML (PMX) 100 ML IVPB SCH ×3 (05:48→23:50)
[2017-03-06] MEDS: PANTOPRAZOLE 40 MG INJ IV SCH (05:49)
[2017-03-06] MEDS: FUROSEMIDE 20 MG INJ IV SCH ×2 (05:49→18:34)
[2017-03-06 05:54] LABS: BASOPHIL # 0.1 10^3/ul (0.0-0.1); BASOPHILS % 0.4 % (0.0-2.0); EOSINOPHILS # 0.5 10^3/ul (0.0-0.5); EOSINOPHILS % 3.5 % (0.0-7.0); HEMATOCRIT 25.3 % (42.0-52.0); HEMOGLOBIN 7.8 g/dl (14.0-18.0); LYMPHOCYTES # 0.9 10^3/ul (0.8-2.9); LYMPHOCYTES % 6.1 % (15.0-51.0); MEAN CORPUSCULAR HEMOGLOBIN 27.7 pg (29.0-33.0); MEAN CORPUSCULAR HGB CONC 30.8 g/dl (32.0-37.0); MEAN CORPUSCULAR VOLUME 89.7 fl (82.0-101.0); MEAN PLATELET VOLUME 11.6 fl (7.4-10.4); MONOCYTES % 7.4 % (0.0-11.0); NEUTROPHIL # 11.4 10^3/ul (1.6-7.5); NEUTROPHILS % 81.3 % (39.0-77.0); PLATELET COUNT 451 10^3/UL (140-415); RED BLOOD COUNT 2.82 10^6/ul (4.70-6.10)
[2017-03-06 06:04] LABS: INR 1.09; PROTIME 14.1 Sec (12.2-14.2); PT RATIO 1.1
[2017-03-06 06:05] LABS: PARTIAL THROMBOPLASTIN TIME 39.4 Sec (25.0-35.0)
[2017-03-06 06:16] LABS: ALBUMIN 2.4 g/dl (3.3-4.9); POTASSIUM 4.1 mmol/L (3.5-5.1)
[2017-03-06 06:17] LABS: ALBUMIN 2.2 g/dl (3.3-4.9)
[2017-03-06 06:18] LABS: POTASSIUM 4.4 mmol/L (3.5-5.1)
[2017-03-06 06:19] LABS: BILIRUBIN,INDIRECT 0.1 mg/dl (0-1.1); BILIRUBIN,TOTAL 0.1 mg/dl (0.2-1.3); CALCIUM 8.5 mg/dl (8.4-10.2); CREATININE 0.55 mg/dl (0.61-1.24); CREATININE 0.57 mg/dl (0.61-1.24); PHOSPHORUS 3.9 mg/dl (2.5-4.9)
[2017-03-06 06:20] LABS: ALBUMIN/GLOBULIN RATIO 0.64; TOTAL PROTEIN 5.6 g/dl (6.1-8.1)
[2017-03-06 06:21] LABS: CALCIUM 8.5 mg/dl (8.4-10.2); MAGNESIUM 1.5 mg/dl (1.7-2.5)
[2017-03-06] MEDS: PROPOFOL 100 ML IV SCH ×3 (06:58→18:34)
[2017-03-06] MEDS: ACETAMINOPHEN 1000MG/100ML IV 100 ML IVPB PRN ×2 (08:23→20:44)
[2017-03-06] MEDS: ENOXAPARIN 40 MG/0.4 ML SYG SC SCH (08:24)
--- NOTE | 2017-03-06 10:33 | PN ---
Date/Time of Note Date/Time of Note DATE: 03/06/17 TIME: 10:29 Assessment/Plan VTE Prophylaxis VTE Prophylaxis Intervention: LMWH Lines/Catheters IV Catheter Type (from Nrs): PICC Line Central line still needed: Yes Urinary Cath still in place: Yes Reason Cath still needed: other (indicate) (Intubated and sedated) Assessment/Plan Assessment/Plan 1. Perforated sigmoid colon 2/2 Severe Crohn's colitis * S/p Urgent Open Cronin's procedure with end colostomy, liver biopsy and abdominal lavage 02/01/17P * S/p post operative paracolic abscess drained via CT 02/14/[address] * S/p Exploration of abdomen through recent laparotomy site with closure of fascia done 02/15/17 for Fascia dehiscence 2. Recurrent Resp failure: Extubated then reintubated 02/13, extubated, then reintubated 02/25/17, then extubated 02/27 and reintubated 03/04 * Status post bronchoscopy with clearance of extensive secretions in the left mainstem bronchus with improved aeration radiographically 02/25 * Pulm concerned about possible neuromuscular injury contributing to recurrent resp failure 3. Exacerbation of Crohn's disease with acute colitis and diarrhea Cultures earlier were growing ecoli / proteus / enterococcus 4. Multifocal PNA + Mook Pleural effusions - Effusions likely hydrostatic from hypoalbuminemia. + fevers - monitor, ID managing abx and antifungal 5. Severe Sepsis with lactic acidosis 2/2 severe colitis / PNA - now with fevers again though last episode was >24hrs ago, back on abx. - CT A/P showing new multiple abscesses / infection not likely from these per surgery - Continue abx per ID 6. S/p Systemic shock (hypovolemic +septic) - again, see # 5, abx: Resolved 7. TPN therapy for low prealbumin: 8. Hx of heavy alcohol and tobacco use just until admission - monitor 9. Probable underlying COPD and Cirrhosis based on hx which explains hypoalbuminemia and anasarca - monitor 10. Severe recurrent anemia likely 2/2 occult blood loss from multiple sources : PRN transfusions 11. Hypomagnesemia - replete as needed 12. Encephalopathy / Confusion : patient may have suffered some anoxic brain insult during the course of his hospitalization MRI concerning for possible ostiomeatal unit obstruction / will discuss with ENT the implications of this Dispo: Due to recurrent respiratory failure , (third reintubation ) and vent dependence, patient may benefit from tracheostomy placement. Palliative care consultation to assist the family in making this decision Consider resuming tube feeds while intubated Continue all other ICU supportive care CRITICAL CARE TIME: >35 mins Subjective 24 Hr Interval Summary Free Text/Dictation Remains intubated and sedated. No acute overnight events Nursing reports no concerns. Subjective hx not possible: pt critical status Exam/Review of Systems Vital Signs Vitals Vital Signs Date Time Temp Pulse Resp B/P Pulse Ox O2 Delivery O2 Flow Rate FiO2 03/06/17 09:15 99.7 03/06/17 08:30 114 03/06/17 08:30 16 113/79 100 Mechanical Ventilator 03/06/17 07:40 40 03/05/17 02:00 5.0 Intake and Output 03/05/17 03/05/17 03/06/17 15:00 23:00 07:00 Intake Total 444.56 ml 300.13 ml 843.99 ml Output Total 470 ml 635 ml 525 ml Balance -25.44 ml -334.87 ml 318.99 ml Exam Constitutional: intubated, comfortable on vent Head: normocephalic Eyes: PERRL, icteric ENMT: Intubated Respiratory: some diminished breath sounds, No wheezing Cardiovascular: regular rate and rhythm, No murmurs/extra sounds Gastrointestinal: other (midline surgical dressing with wound vac / L sided colostomy and drain / colostomy has dark green fluidy stool), soft otherwise Genitourinary - Male: other (significant scrotal and penile edema) Musculoskeletal: swelling (generalized severe anasarca) Extremities: pitting pedal edema Neurological: intubated Results Result Diagram: 03/06/17 0440 03/06/17 0440 Results 24 hrs Laboratory Tests Test 03/05/17 15:45 03/06/17 02:20 03/06/17 04:40 Hepatitis B Surface Antigen NEGATIVE Hepatitis B Core Total Antibody NEGATIVE Hepatitis C Antibody NEGATIVE HIV (1&2) Antibody NEGATIVE Vancomycin Level Trough 15.9 White Blood Count 14.0 H Red Blood Count 2.82 L Hemoglobin 7.8 L Hematocrit 25.3 L Mean Corpuscular Volume 89.7 Mean Corpuscular Hemoglobin 27.7 L Mean Corpuscular Hemoglobin Concent 30.8 L Red Cell Distribution Width 15.0 H Platelet Count 451 H Mean Platelet Volume 11.6 H Neutrophils % 81.3 H Lymphocytes % 6.1 L Monocytes % 7.4 Eosinophils % 3.5 Basophils % 0.4 Nucleated Red Blood Cells % 0.0 Neutrophils # 11.4 H Lymphocytes # 0.9 Monocytes # 1.0 H Eosinophils # 0.5 Basophils # 0.1 Nucleated Red Blood Cells # 0.0 Prothrombin Time 14.1 Prothrombin Time Ratio 1.1 INR International Normalized Ratio 1.09 Activated Partial Thromboplast Time 39.4 H Sodium Level 135 Potassium Level 4.1 Chloride Level 95 L Carbon Dioxide Level 30 Anion Gap 14 Blood Urea Nitrogen 18 Creatinine 0.57 L Glucose Level 97 Lactic Acid Level 1.4 Calcium Level 8.5 Phosphorus Level 3.9 Magnesium Level 1.5 L Total Bilirubin 0.1 L Direct Bilirubin 0.00 Indirect Bilirubin 0.1 Aspartate Amino Transf (AST/SGOT) 29 Alanine Aminotransferase (ALT/SGPT) 26 Alkaline Phosphatase 127 H B-Type Natriuretic Peptide 611 H Total Protein 5.6 L Albumin 2.4 L Globulin 3.40 H Albumin/Globulin Ratio 0.64 Lipase 67 Medications Medications Current Medications Pantoprazole (Protonix Iv) 40 mg DAILY@06 IV Last administered on 03/06/17 05: 49; Admin Dose 40 MG; Start 02/01/17 at 06:00 Acetaminophen/ Hydrocodone Bitart ([place] (5/325)) 1 tab Q4H PRN PO PAIN LEVEL 4 -7 Last administered on 02/09/17 18:48; Admin Dose 1 TAB; Start 02/01/17 at 20: 30 Acetaminophen/ Hydrocodone Bitart ([place] (5/325)) 2 tab Q4H PRN PO PAIN LEVEL 7 -10; Start 02/01/17 at 20:30 Bisacodyl (Dulcolax Supp) 10 mg BID PRN [place] CONSTIPATION; Start 02/01/17 at 20: 30 Sodium Biphosphate/ Sodium Phosphate (Fleet Enema) 133 ml BID PRN [place] CONSTIPATION; Start 02/01/17 at 20:30 Acetaminophen (Tylenol Liquid) 650 mg Q4H PRN GTB PAIN AND OR ELEVATED TEMP Last administered on 02/27/17 12:37; Admin Dose 650 MG; Start 02/05/17 at 18:30 IV Flush (NS 10 ml) 10 ml PRN PRN IV IV PROTOCOL; Start 02/07/17 at 14:30 Diphenhydramine HCl 25 mg 25 mg Q6H PRN IV itching Last administered on 00:00; Admin Dose 25 MG; Start 02/07/17 at 20:00 Ondansetron HCl/ Sodium Chloride (Zofran Inj/NS) 54 ml @ 216 mls/hr Q6H PRN IV NAUSEA AND/OR VOMITING; Start 02/09/17 at 11:30 Lorazepam (Ativan) 1 mg Q1HWA PRN IM AGITATION/ANXIETY; Start 02/10/17 at 19:00 Trimethobenzamide HCl (Tigan) 200 mg Q6H PRN IM NAUSEA AND/OR VOMITING; Start 02/10/17 at 19:30 Morphine Sulfate (morphine) 2 mg Q4H PRN IV pain Last administered on 04:14; Admin Dose 2 MG; Start 02/20/17 at 18:30 Docusate Sodium 100 mg 100 mg QHS PRN NGT For Constipation; Start 02/25/17 at 21:00 Meropenem 100 ml @ 200 mls/hr Q8 IVPB Last administered on 03/06/17 05:48; Admin Dose 200 MLS/HR; Start 02/26/17 at 14:00 Fluconazole 100 ml @ 100 mls/hr Q24H IVPB Last administered on 03/05/17 17:48 ; Admin Dose 100 MLS/HR; Start 02/26/17 at 17:00 Acetaminophen 100 ml @ 50 mls/hr Q6H PRN IVPB fever Last administered on 08:23; Admin Dose 50 MLS/HR; Start 02/28/17 at 07:30 Total Parenteral Nutrition (Tpn) 1,000 ml @ 50 mls/hr Q20H IV Last administered on 03/05/17 23:46; Admin Dose 50 MLS/HR; Start 03/02/17 at 14:00 Enoxaparin Sodium 40 mg 40 mg DAILY SC Last administered on 03/06/17 08:24; Admin Dose 40 MG; Start 03/03/17 at 09:00 Vancomycin HCl 750 mg/Sodium Chloride 150 ml @ 75 mls/hr Q12H IVPB Last administered on 03/06/17 03:00; Admin Dose 75 MLS/HR; Start 03/03/17 at 15:00 Propofol (Diprivan) 100 ml @ 2.787 mls/ hr Q12H IV Last administered on 06:58; Admin Dose 5.574 MLS/HR; Start 03/05/17 at 05:00 Procedures Procedures PROCEDURE: MRI Brain with and without contrast. CLINICAL INDICATION: Altered mental status, history of perforated colon. TECHNIQUE: An MRI of the brain was performed with and without contrast utilizing the following sequences: Sagittal T1 weighted, sagittal FLAIR, axial T1, axial FLAIR, axial T2 weighted, axial diffusion weighted (EPI technique b= 1000), axial ADC mapping, and post contrast axial and coronal T1 weighted, and axial FLAIR. 10 cc of Magnevist was given intravenously without complication. The images were reviewed on a high-resolution PACS workstation. COMPARISON: No prior studies are available for comparison. FINDINGS: Diffusion weighted sequences demonstrate no evidence of acute lacunar or lobar infarction. There is no intracranial hemorrhage, extra-axial fluid collection, mass lesion, midline shift or hydrocephalous. There is mild prominence of the cerebral sulci, lateral and third ventricles. The basal cisterns are patent. The signal intensity is normal throughout the cerebrum, brain stem and cerebellum. Normal flow voids are visible the proximal intracranial arteries and dural sinuses, indicating patency. The midline structures are intact. The postcontrast images show no abnormal parenchymal, leptomeningeal, or dural enhancement. There are moderate inflammatory changes of the left frontal sinus, left anterior ethmoid air cells and the left maxillary sinus. There is mild fluid opacification of the mastoid air cells and middle ear cavities. The orbits, calvarium and extracranial soft tissues are normal in appearance. IMPRESSION: 1. No acute intracranial abnormality. No intracranial hemorrhage, enhancing mass lesion, infarction or hydrocephalous. 2. Mild peripheral and central cerebral volume loss. 3. Moderate inflammatory changes of the left frontal sinus, ethmoid air cells and maxillary sinus. Given the distribution of findings, concern is raised for possible ostiomeatal unit obstruction. 4. Mild inflammatory changes of the bilateral mastoid air cells without evidence of coalescent mastoiditis. RPTAT: HGAS .Romeo Hill MD, MD Date Time Electronically viewed and signed by .Romeo Hill MD, MD on 03/05/2017 23: 13 .S/ CC: TI HILTON M.D., [place] M. March 06, 2017 10:33
--- NOTE | 2017-03-06 10:54 | CONS ---
Date/Time of Note Date/Time of Note DATE: 03/06/17 TIME: 10:23 Assessment/Plan Assessment/Plan Chief Complaint/Hosp Course ID PROGRESS NOTE TOTAL ABX DAY # => Vanco IV, Merrem, Diflucan 24H INTERVAL SUMMARY * Orally intubated-> Vented, non-communicative, failure to thrive ? * Fevers today - all micro has been negative -- appreciate surgeon note, no evidence ABD infection * Per RN sedation OFF -> Possible extubation attempt? * MRI BRAIN 03/05/17: * 1. No acute intracranial abnormality. No intracranial hemorrhage, enhancing mass lesion, infarction or hydrocephalous. * 2. Mild peripheral and central cerebral volume loss. * 3. Moderate inflammatory changes of the left frontal sinus, ethmoid air cells and maxillary sinus. Given the distribution of findings, concern is raised for possible ostiomeatal unit obstruction. * 4. Mild inflammatory changes of the bilateral mastoid air cells without evidence of coalescent mastoiditis. PHYSICAL EXAMINATION: GENERAL: Critically ill on the Vent in the ICU, calm, looks comfortable HEENT: ETT-> Secure to Vent NECK: Supple, trach midline CHEST: Equal chest rise bilaterally, without tachypnea HEART: Mild tachycardia ABDOMEN: STEVE present EXTREMITIES: Warm SKIN: Warm, dry ID ASSESSMENT: 46 yo M w/PMHx Crohn's disease admitted with: * POD # 02/01/17 => s/p Laparoscopic exploration,open sigmoid colectomy with Deena end colostomy with liver biopsy segment V * POD # 02/15/17=> S/p exploration of abdomen through recent laparotomy, primary closure of fascia and abdominal lavage. 1. Resolving sepsis, status post perforated viscus repair - OFF Pressors, SIRS continues w/ * Fever today ?SIRS vs lines, HCAP ? Sinusitis? * CT 02/28/17: There are several enhancing fluid collections seen with multiple collections around the hepatic margin and the largest of these at the dome which is new from prior study along with other fluid collection seen extending along the right pericolic gutter inferiorly. These are worrisome for multiple abdominal abscesses. There is a crescentic left lower quadrant enhancing fluid collection which has diminished in size from prior exam and is consistent with residual abscess after prior drainage. * s/p peritonitis w/ 02/01/17MICRO: Abdominal fluid culture growing Proteus mirabilis, E. coli, enterococcus species and strep * CT ABD 02/11: Small volume ascites w/enhancement suggestive of peritonitis 2. Acute recurrent respiratory failure=>Suspect HCAP although all micro is negative * Loculated pleural effusions on CT 02/28/17 * s/p THORA 03/04/17 Micro (-) * s/p Bronch -> BAL (+)Yeast 4. Anasarca: CT 02/28/17 5. Left frontal ethmoid/maxillary sinusitis w/ possible ostiomeatal unit obstruction. * Mild inflammatory changes of the bilateral mastoid air cells without evidence of coalescent mastoiditis. 6. Status post acute renal failure. 7. LIVER DX: Fatty liver w/necroinflammatory activity, no fibrosis, small iron deposit on stain * CT 02/28/17 -> less fatty liver seen as compared to prior 8. Hx of heavy alcohol and tobacco use just until admission - ?ETOH Withdrawal SXS? 9. Probable underlying COPD 10. Hepatosplenomegaly w/pancreatic fluid margin - QUERY early underlying Cirrhosis based on hx which explains hypoalbuminemia - monitor 11. Anemia with persistent thrombocytopenia, possibly secondary to early liver disease, sepsis and antibiotics * Zosyn was changed to Levaquin. * rule out heparin-induced thrombocytopenia versus other etiologies (-)MRSA Nares INVASIVES: * STEVE, PICC 02/27, ETT, OGT ABX ALLERGIES: KNDA CURRENT ABX: TOTAL ABX DAY #14 => Vanco IV, Merrem, Diflucan S/P Zosyn ID RECOMMENDATIONS: 1. Per RN, possible extubation attempt; hence will NOT DC ABX due to pending risk of aspiration 2. Alternatively, if no extubation planned - consider ABD HOLIDAY 48H "Time Out " -- stop ABX and if he spikes fevers repeat cultures 48H off ABX * Low B/P in setting of anemia, hypoalbuminemia w/anasarca == not clearly related to sepsis although he is clearly at risk 3. Further recs pulmonary & surgery appreciated / . . . Problems: Consultation Date/Type/Reason Admit Date/Time Feb 01, 2017 at 03:10 Initial Consult Date 02/02/17 Type of Consultation: ID Referring Provider: VINCE PADGETT Exam/Review of Systems Vital Signs Vitals Vital Signs Date Time Temp Pulse Resp B/P Pulse Ox O2 Delivery O2 Flow Rate FiO2 520/17 09:15 99.7 03/06/17 08:30 114 03/06/17 08:30 16 113/79 100 Mechanical Ventilator 03/06/17 07:40 40 03/05/17 02:00 5.0 Intake and Output 03/05/17 03/05/17 03/06/17 15:00 23:00 07:00 Intake Total 444.56 ml 300.13 ml 843.99 ml Output Total 470 ml 635 ml 525 ml Balance -25.44 ml -334.87 ml 318.99 ml Results Result Diagram: 03/06/170 03/06/17 0440 Results 24 hrs Laboratory Tests Test 03/05/17 15:45 03/06/17 02:20 03/06/17 04:40 Hepatitis B Surface Antigen NEGATIVE Hepatitis B Core Total Antibody NEGATIVE Hepatitis C Antibody NEGATIVE HIV (1&2) Antibody NEGATIVE Vancomycin Level Trough 15.9 White Blood Count 14.0 H Red Blood Count 2.82 L Hemoglobin 7.8 L Hematocrit 25.3 L Mean Corpuscular Volume 89.7 Mean Corpuscular Hemoglobin 27.7 L Mean Corpuscular Hemoglobin Concent 30.8 L Red Cell Distribution Width 15.0 H Platelet Count 451 H Mean Platelet Volume 11.6 H Neutrophils % 81.3 H Lymphocytes % 6.1 L Monocytes % 7.4 Eosinophils % 3.5 Basophils % 0.4 Nucleated Red Blood Cells % 0.0 Neutrophils # 11.4 H Lymphocytes # 0.9 Monocytes # 1.0 H Eosinophils # 0.5 Basophils # 0.1 Nucleated Red Blood Cells # 0.0 Prothrombin Time 14.1 Prothrombin Time Ratio 1.1 INR International Normalized Ratio 1.09 Activated Partial Thromboplast Time 39.4 H Sodium Level 135 Potassium Level 4.1 Chloride Level 95 L Carbon Dioxide Level 30 Anion Gap 14 Blood Urea Nitrogen 18 Creatinine 0.57 L Glucose Level 97 Lactic Acid Level 1.4 Calcium Level 8.5 Phosphorus Level 3.9 Magnesium Level 1.5 L Total Bilirubin 0.1 L Direct Bilirubin 0.00 Indirect Bilirubin 0.1 Aspartate Amino Transf (AST/SGOT) 29 Alanine Aminotransferase (ALT/SGPT) 26 Alkaline Phosphatase 127 H B-Type Natriuretic Peptide 611 H Total Protein 5.6 L Albumin 2.4 L Globulin 3.40 H Albumin/Globulin Ratio 0.64 Lipase 67 Medications Medications Current Medications Pantoprazole (Protonix Iv) 40 mg DAILY@06 IV Last administered on 03/06/17 05: 49; Admin Dose 40 MG; Start 02/01/17 at 06:00 Acetaminophen/ Hydrocodone Bitart ([place] (5/325)) 1 tab Q4H PRN PO PAIN LEVEL 4 -7 Last administered on 02/09/17 18:48; Admin Dose 1 TAB; Start 02/01/17 at 20: 30 Acetaminophen/ Hydrocodone Bitart ([place] (5/325)) 2 tab Q4H PRN PO PAIN LEVEL 7 -10; Start 02/01/17 at 20:30 Bisacodyl (Dulcolax Supp) 10 mg BID PRN [place] CONSTIPATION; Start 02/01/17 at 20: 30 Sodium Biphosphate/ Sodium Phosphate (Fleet Enema) 133 ml BID PRN [place] CONSTIPATION; Start 02/01/17 at 20:30 Acetaminophen (Tylenol Liquid) 650 mg Q4H PRN GTB PAIN AND OR ELEVATED TEMP Last administered on 02/27/17 12:37; Admin Dose 650 MG; Start 02/05/17 at 18:30 IV Flush (NS 10 ml) 10 ml PRN PRN IV IV PROTOCOL; Start 02/07/17 at 14:30 Diphenhydramine HCl 25 mg 25 mg Q6H PRN IV itching Last administered on 00:00; Admin Dose 25 MG; Start 02/07/17 at 20:00 Ondansetron HCl/ Sodium Chloride (Zofran Inj/NS) 54 ml @ 216 mls/hr Q6H PRN IV NAUSEA AND/OR VOMITING; Start 02/09/17 at 11:30 Lorazepam (Ativan) 1 mg Q1HWA PRN IM AGITATION/ANXIETY; Start 02/10/17 at 19:00 Trimethobenzamide HCl (Tigan) 200 mg Q6H PRN IM NAUSEA AND/OR VOMITING; Start 02/10/17 at 19:30 Morphine Sulfate (morphine) 2 mg Q4H PRN IV pain Last administered on 04:14; Admin Dose 2 MG; Start 02/20/17 at 18:30 Docusate Sodium 100 mg 100 mg QHS PRN NGT For Constipation; Start 02/25/17 at 21:00 Meropenem 100 ml @ 200 mls/hr Q8 IVPB Last administered on 03/06/17 05:48; Admin Dose 200 MLS/HR; Start 02/26/17 at 14:00 Fluconazole 100 ml @ 100 mls/hr Q24H IVPB Last administered on 03/05/17 17:48 ; Admin Dose 100 MLS/HR; Start 02/26/17 at 17:00 Acetaminophen 100 ml @ 50 mls/hr Q6H PRN IVPB fever Last administered on 08:23; Admin Dose 50 MLS/HR; Start 02/28/17 at 07:30 Total Parenteral Nutrition (Tpn) 1,000 ml @ 50 mls/hr Q20H IV Last administered on 03/05/17 23:46; Admin Dose 50 MLS/HR; Start 03/02/17 at 14:00 Enoxaparin Sodium 40 mg 40 mg DAILY SC Last administered on 03/06/17 08:24; Admin Dose 40 MG; Start 03/03/17 at 09:00 Vancomycin HCl 750 mg/Sodium Chloride 150 ml @ 75 mls/hr Q12H IVPB Last administered on 03/06/17 03:00; Admin Dose 75 MLS/HR; Start 03/03/17 at 15:00 Propofol (Diprivan) 100 ml @ 2.787 mls/ hr Q12H IV Last administered on 06:58; Admin Dose 5.574 MLS/HR; Start 03/05/17 at 05:00 DARIUSZ QUINTERO NP March 06, 2017 10:35
--- NOTE | 2017-03-06 11:56 | CONS ---
Date/Time of Note Date/Time of Note DATE: 03/06/17 TIME: 11:52 Assessment/Plan Assessment/Plan Additional Assessment/Plan Chest x-ray was reviewed from yesterday evening which is essentially clear now. Ventilator setting; AC of 16, tidal volume 550, PEEP of 5, 40% FiO2. Next Patient currently on propofol 15 mics per milligram per minute, also on TPN. Next Assessment recommendations; 1. Patient admitted initially for diverticulitis with perforation requiring laparoscopic sigmoid resection with colostomy and then has had a very complicated postop course requiring multiple re-intubations due to pneumonia as well as atelectasis then subsequently developed significant ICU psychosis with hypoxemia and tachypnea requiring reintubation again. However over the last 24 hours the patient's overall status has markedly improved again. 2. Anemia. 3. Abdominal abscesses, currently on appropriate antibiotic regimen. Hold sedation again. Once the patient is off sedation he will be evaluated for weaning from ventilator again. Meanwhile continue supportive care. 35 minutes of critical care time was spent evaluating the patient. Consultation Date/Type/Reason Admit Date/Time Feb 01, 2017 at 03:10 Initial Consult Date 02/02/17 Type of Consultation: Pulmonary/critical care Referring Provider: VINCE PADGETT 24 HR Interval Summary Free Text/Dictation Patient condition remains critical but stable. Patient is completely awake and alert. Not exhibiting any further signs of ICU psychosis. Has remained hemodynamically stable. General exam; middle-aged male, orally intubated, currently in no distress. Awake and alert. Exam/Review of Systems Vital Signs Vitals Vital Signs Date Time Temp Pulse Resp B/P Pulse Ox O2 Delivery O2 Flow Rate FiO2 03/06/17 09:15 99.7 03/06/17 08:30 114 03/06/17 08:30 16 113/79 100 Mechanical Ventilator 03/06/17 08:00 40 03/05/17 02:00 5.0 Intake and Output 03/05/17 03/05/17 03/06/17 15:00 23:00 07:00 Intake Total 444.56 ml 300.13 ml 843.99 ml Output Total 470 ml 635 ml 525 ml Balance -25.44 ml -334.87 ml 318.99 ml Exam HEENT examination; supple neck, no JVD. No lymphadenopathy. Midline trachea. No thyromegaly. Orally intubated. Patient has fair dentition. Pupils are small bilaterally. Chest examination; clear to auscultation. S1-S2 audible, no murmurs. Regular rhythm. Abdomen examination; soft, nontender. No organomegaly. Bowel sounds audible. Colostomy in place. Extremity examination; no peripheral edema. RNP examination; patient is awake and alert follows commands and moves all 4 extremities. Results Result Diagram: 03/06/17 0440 03/06/17 0440 Results 24 hrs Laboratory Tests Test 03/05/17 15:45 03/06/17 02:20 03/06/17 04:40 Hepatitis B Surface Antigen NEGATIVE Hepatitis B Core Total Antibody NEGATIVE Hepatitis C Antibody NEGATIVE HIV (1&2) Antibody NEGATIVE Vancomycin Level Trough 15.9 White Blood Count 14.0 H Red Blood Count 2.82 L Hemoglobin 7.8 L Hematocrit 25.3 L Mean Corpuscular Volume 89.7 Mean Corpuscular Hemoglobin 27.7 L Mean Corpuscular Hemoglobin Concent 30.8 L Red Cell Distribution Width 15.0 H Platelet Count 451 H Mean Platelet Volume 11.6 H Neutrophils % 81.3 H Lymphocytes % 6.1 L Monocytes % 7.4 Eosinophils % 3.5 Basophils % 0.4 Nucleated Red Blood Cells % 0.0 Neutrophils # 11.4 H Lymphocytes # 0.9 Monocytes # 1.0 H Eosinophils # 0.5 Basophils # 0.1 Nucleated Red Blood Cells # 0.0 Prothrombin Time 14.1 Prothrombin Time Ratio 1.1 INR International Normalized Ratio 1.09 Activated Partial Thromboplast Time 39.4 H Sodium Level 135 Potassium Level 4.1 Chloride Level 95 L Carbon Dioxide Level 30 Anion Gap 14 Blood Urea Nitrogen 18 Creatinine 0.57 L Glucose Level 97 Lactic Acid Level 1.4 Calcium Level 8.5 Phosphorus Level 3.9 Magnesium Level 1.5 L Total Bilirubin 0.1 L Direct Bilirubin 0.00 Indirect Bilirubin 0.1 Aspartate Amino Transf (AST/SGOT) 29 Alanine Aminotransferase (ALT/SGPT) 26 Alkaline Phosphatase 127 H B-Type Natriuretic Peptide 611 H Total Protein 5.6 L Albumin 2.4 L Globulin 3.40 H Albumin/Globulin Ratio 0.64 Lipase 67 Medications Medications Current Medications Pantoprazole (Protonix Iv) 40 mg DAILY@06 IV Last administered on 03/06/17t 05: 49; Admin Dose 40 MG; Start 02/01/17 at 06:00 Acetaminophen/ Hydrocodone Bitart ([place] (5/325)) 1 tab Q4H PRN PO PAIN LEVEL 4 -7 Last administered on 02/09/17 18:48; Admin Dose 1 TAB; Start 02/01/17 at 20: 30 Acetaminophen/ Hydrocodone Bitart ([place] (5/325)) 2 tab Q4H PRN PO PAIN LEVEL 7 -10; Start 02/01/17 at 20:30 Bisacodyl (Dulcolax Supp) 10 mg BID PRN [place] CONSTIPATION; Start 02/01/17 at 20: 30 Sodium Biphosphate/ Sodium Phosphate (Fleet Enema) 133 ml BID PRN [place] CONSTIPATION; Start 02/01/17 at 20:30 Acetaminophen (Tylenol Liquid) 650 mg Q4H PRN GTB PAIN AND OR ELEVATED TEMP Last administered on 02/27/17 12:37; Admin Dose 650 MG; Start 02/05/17 at 18:30 IV Flush (NS 10 ml) 10 ml PRN PRN IV IV PROTOCOL; Start 02/07/17 at 14:30 Diphenhydramine HCl 25 mg 25 mg Q6H PRN IV itching Last administered on 00:00; Admin Dose 25 MG; Start 02/07/17 at 20:00 Ondansetron HCl/ Sodium Chloride (Zofran Inj/NS) 54 ml @ 216 mls/hr Q6H PRN IV NAUSEA AND/OR VOMITING; Start 02/09/17 at 11:30 Lorazepam (Ativan) 1 mg Q1HWA PRN IM AGITATION/ANXIETY; Start 02/10/17 at 19:00 Trimethobenzamide HCl (Tigan) 200 mg Q6H PRN IM NAUSEA AND/OR VOMITING; Start 02/10/17 at 19:30 Morphine Sulfate (morphine) 2 mg Q4H PRN IV pain Last administered on 04:14; Admin Dose 2 MG; Start 02/20/17 at 18:30 Docusate Sodium 100 mg 100 mg QHS PRN NGT For Constipation; Start 02/25/17 at 21:00 Meropenem 100 ml @ 200 mls/hr Q8 IVPB Last administered on 03/06/17 05:48; Admin Dose 200 MLS/HR; Start 02/26/17 at 14:00 Fluconazole 100 ml @ 100 mls/hr Q24H IVPB Last administered on 03/05/17 17:48 ; Admin Dose 100 MLS/HR; Start 02/26/17 at 17:00 Acetaminophen 100 ml @ 50 mls/hr Q6H PRN IVPB fever Last administered on 08:23; Admin Dose 50 MLS/HR; Start 02/28/17 at 07:30 Total Parenteral Nutrition (Tpn) 1,000 ml @ 50 mls/hr Q20H IV Last administered on 03/05/17 23:46; Admin Dose 50 MLS/HR; Start 03/02/17 at 14:00 Enoxaparin Sodium 40 mg 40 mg DAILY SC Last administered on 03/06/17 08:24; Admin Dose 40 MG; Start 03/03/17 at 09:00 Vancomycin HCl 750 mg/Sodium Chloride 150 ml @ 75 mls/hr Q12H IVPB Last administered on 03/06/17 03:00; Admin Dose 75 MLS/HR; Start 03/03/17 at 15:00 Propofol (Diprivan) 100 ml @ 2.787 mls/ hr Q12H IV Last administered on 06:58; Admin Dose 5.574 MLS/HR; Start 03/05/17 at 05:00 RICHAR ADRIAN March 06, 2017 11:56
[2017-03-06] MEDS: morphine 2 MG INJ IV PRN (12:22)
--- NOTE | 2017-03-06 13:43 | PN ---
DATE: 03/05/2017 SUBJECTIVE: The patient was intubated yesterday, currently spiking fevers with a T-max of 100.8. H e is in no distress. WBC today is 15.4; H and H 8.2 and 29.1, platelets 467, neutrophils 81.5, BUN 18, creatinine 0.53. DIAGNOSTICS: Chest x-ray revealed bilateral hazy opacities, slightly decreased. INDWELLING: Endotracheal tube, right upper extremity PICC line, Zeng catheter. ANTIMICROBIALS: 1. Vancomycin. 2. Meropenem. 3. Fluconazole. PHYSICAL EXAMINATION: GENERAL: This is a well-developed, chronically ill-appearing, middle-aged white man, who is intubat ed and sedated, in no distress. HEENT: Head atraumatic, normocephalic. Sclerae anicteric. Buccal mucosa dry. NECK: Supple, trachea midline. CHEST: Rise symmetrical. Breath sounds diminished at the bases. HEART: S1, S2. ABDOMEN: Soft, bowel tones present. EXTREMITIES: Without cyanosis. Bilateral lower extremities: Trace dependent edema. ASSESSMENT: 1. Recurrent respiratory failure, status post reintubated. 2. Pneumonia with secretion retention. 3. Multiple small intraabdominal abscesses, too small to be drained. 4. Crohn's disease status post perforated viscus repair. 5. History of ethyl alcohol abuse. PLAN: The patient remains stable, comfortable on vent. Continue present care. Continue on current antibiotics. Bronchial wash with culture on 02/25 is growing yeast. Dictated By: THOMAS E[employer]ICER joshua RAMÍREZ/NTS Conf#: [id number] DID#: [id number]
--- NOTE | 2017-03-06 14:33 | PN ---
Date/Time of Note Date/Time of Note DATE: 03/06/17 TIME: 14:30 Assessment/Plan Lines/Catheters IV Catheter Type (from Nrsg): PICC Line Zeng in Place (from Nrsg): Yes Assessment/Plan Assessment/Plan [facility] Progress Note Date of Service: 03/06/17 Today's Impression & Plan: Overall stable on the vent. Failed CPAP. Abd benign. HIV negative and hepatitis B&C neg. Brain MRI did not contribute to the diagnosis, but no mass effect, obvious hemorrhage or other explanatory findings. No indication for acute surgical intervention. Remains high risk for complication given perforated colon in the setting of uncontrolled Crohn's. Recovery will take extra time with likely need for rehab. With above assessment, I've recommended the following for today: 1. Cont current cares in ICU 2. F/u on cultures 3. Cont TPN (goal should be about 1800 to 2000 kCal per day) 4. Pulmonary toilet 5. Cont gentle diuresis to BMP < 200 6. Social work and case management to please start working on possible rehab vs. home health nurse set up 7. Increase activity 8. Increase ICS 9. Wean off broad spec antimicrobials 10. Labs in am 11. Cont current wound care with wound vac 12. F/u on hematology w/u 13. Continue prophylactic anticoagulation (no contraindication from surgical standpoint) 14. Set up for trach for early next week Thank you again for your great care of this very pleasant patient and wonderful family. If there are any questions, please feel free to call me at [phone]. TOTAL VISIT TIME: 20 minutes of which more than half was spent in [id number] discussion with the patient, possibly including family, as well as coordination of care between multiple physicians and providers. Disclaimer: Inadvertent spelling or grammatical errors are likely due to EHR/ dictation software use and do not reflect on the overall quality of patient care. Updated Clinical Summary: A very pleasant 46-year-old gentleman with history of Crohn's disease as well as prior surgery for anal fistula approximately 5 years ago, and a torn meniscus repair on the left knee, presenting with abdominal pain associated with a few weeks' duration of diarrhea. S/p an otherwise uncomplicated diagnostic laparoscopy was converted first to hand assist and then to open exploration when perforated sigmoid colon was found and it was resected with a Deena type procedure and end colostomy as well as core needle liver biopsy, segment 5, due to presence of fatty liver disease, lysis of adhesions, and abdominal lavage on 02/01/17. Failed to wean off the vent through 02/06/17. PE was evaluated 02/07/[address] angio and no evidence found. CT abd/pelvis also did not show actionable findings (no abscess; bowel thickening somewhat expected). Extubated 02/07/17. [facility] TILER called early am 02/13/17 with a few minutes coding, requiring intubation and transfer to ICU. Fortunately, mentally appears to be intact and not on pressors. Lactic acid and CO2 normal with benign appearing abd and viable ostomy. Complicated by fascia dehiscence. S/p exploration of abdomen through recent laparotomy, primary closure of fascia and abdominal lavage on 02/15/17. Reintubated 02/25/17 for bronchoscopy to remove mucus plug. Extubated 02/28/17. Re-intubated 03/05/17 due to respiratory failure and hypoxia. COMORBIDITIES: 1. Crohn disease with perforation of sigmoid colon and sepsis. S/p an otherwise uncomplicated diagnostic laparoscopy was converted first to hand assist and then to open exploration when perforated sigmoid colon was found and it was resected with a Deena type procedure and end colostomy as well as core needle liver biopsy, segment 5, due to presence of fatty liver disease, lysis of adhesions, and abdominal lavage on 02/01/17. Complicated by respiratory failure, return trip to ICU and fascia dehiscence. S/p exploration of abdomen through recent laparotomy, primary closure of fascia and abdominal lavage on 02/15. 2. Repair of a fistula approximately 5 years ago. 3. Torn meniscus on the left knee status post repair. Subjective: Events as above; on the vent Objective: Vitals: See below Exam: GENERAL: On exam, the patient was laying in bed and appeared to be comfortable and in no acute distress. Intubated and on the vent. Eyes open and responds to voice. ABDOMEN: Soft, nontender and nondistended. Incision wound vac dressings are clean without any evidence of obvious erythema, edema, discharge, or hernia. Wound vac with no sig drainage. Surgery drain site clean. Ostomy pink and viable ; some air and stool in the bag. There are no peritoneal signs or guarding. SKIN: Skin appears to be pink and feels warm to touch. NEUROLOGIC: Patient's eyes open and responds to voice. and follows simple commands appropriately. Exam/Review of Systems Vital Signs Vitals Vital Signs Date Time Temp Pulse Resp B/P Pulse Ox O2 Delivery O2 Flow Rate FiO2 03/06/17 13:55 116 16 100 40 03/06/17 13:00 116/82 Mechanical Ventilator 03/06/17 12:00 98.6 03/05/17 02:00 5.0 Intake and Output 03/05/17 03/05/17 03/06/17 15:00 23:00 07:00 Intake Total 444.56 ml 300.13 ml 843.99 ml Output Total 470 ml 635 ml 525 ml Balance -25.44 ml -334.87 ml 318.99 ml Results Result Diagram: 03/06/17 0440 03/06/17 0440 TI HILTON M.D. March 06, 2017 14:33
[2017-03-06] MEDS: FLUCONAZOLE 200 MG/NS (PMX) 100 ML IVPB SCH (17:53)
[2017-03-06] MEDS: TPN 1,000 ML IV SCH (20:39)
[2017-03-07] VITALS (43 sets, daily range): BP systolic 96–128; BP diastolic 69–88; PULSE 85–99; RESP 15–23
[2017-03-07] MEDS: ALBUTEROL/IPRATROPIUM (NEB) 3 ML AMP HHN SCH (01:02)
[2017-03-07] MEDS: ACETYLCYSTEINE 20% 4 ML VIAL NEB SCH ×4 (01:12→19:23)
[2017-03-07] MEDS: VANCOMYCIN 750 MG in SOD CHLORIDE 0.9% 150 ML IVPB SCH ×2 (03:46→16:59)
[2017-03-07 05:06] LABS: ADD SCAN DIFF NO
[2017-03-07 05:10] LABS: BASOPHIL # 0.1 10^3/ul (0.0-0.1); BASOPHILS % 0.5 % (0.0-2.0); EOSINOPHILS # 0.5 10^3/ul (0.0-0.5); EOSINOPHILS % 3.2 % (0.0-7.0); HEMATOCRIT 23.4 % (42.0-52.0); HEMOGLOBIN 7.4 g/dl (14.0-18.0); LYMPHOCYTES # 0.8 10^3/ul (0.8-2.9); LYMPHOCYTES % 5.4 % (15.0-51.0); MEAN CORPUSCULAR HEMOGLOBIN 28.1 pg (29.0-33.0); MEAN CORPUSCULAR HGB CONC 31.6 g/dl (32.0-37.0); MEAN PLATELET VOLUME 11.4 fl (7.4-10.4); MONOCYTE # 1.2 10^3/ul (0.3-0.9); MONOCYTES % 7.6 % (0.0-11.0); NEUTROPHIL # 12.6 10^3/ul (1.6-7.5); NEUTROPHILS % 81.7 % (39.0-77.0); PLATELET COUNT 459 10^3/UL (140-415); RED BLOOD COUNT 2.63 10^6/ul (4.70-6.10); RED CELL DISTRIBUTION WIDTH 15.2 % (11.5-14.5); WHITE BLOOD COUNT 15.4 10^3/ul (4.8-10.8)
[2017-03-07] MEDS: PROPOFOL 100 ML IV SCH ×3 (05:16→20:44)
[2017-03-07] MEDS: FUROSEMIDE 20 MG INJ IV SCH ×2 (05:26→18:11)
[2017-03-07] MEDS: PANTOPRAZOLE 40 MG INJ IV SCH (05:26)
[2017-03-07] MEDS: MEROPENEM 1 GM/100 ML (PMX) 100 ML IVPB SCH ×3 (05:26→22:16)
[2017-03-07 05:28] LABS: ALBUMIN 2.5 g/dl (3.3-4.9); POTASSIUM 4.1 mmol/L (3.5-5.1)
[2017-03-07 05:30] LABS: CREATININE 0.59 mg/dl (0.61-1.24)
[2017-03-07 05:31] LABS: CALCIUM 8.6 mg/dl (8.4-10.2); PHOSPHORUS 4.5 mg/dl (2.5-4.9)
[2017-03-07] MEDS: ALBUTEROL 18 GM INHALER INH SCH ×3 (08:00→19:23)
[2017-03-07] MEDS: IPRATROPIUM (HFA) 12.9 GM INHALER INH SCH ×3 (08:00→19:23)
[2017-03-07] MEDS: ENOXAPARIN 40 MG/0.4 ML SYG SC SCH (09:24)
--- NOTE | 2017-03-07 09:39 | PN ---
Date/Time of Note Date/Time of Note DATE: 03/07/17 TIME: 09:24 Assessment/Plan VTE Prophylaxis VTE Prophylaxis Intervention: LMWH Lines/Catheters IV Catheter Type (from Nrs): PICC Line Central line still needed: Yes Urinary Cath still in place: Yes Reason Cath still needed: other (indicate) Assessment/Plan Assessment/Plan 1. Perforated sigmoid colon 2/2 Severe Crohn's colitis * S/p Urgent Open Cronin's procedure with end colostomy, liver biopsy and abdominal lavage 02/01/17P * S/p post operative paracolic abscess drained via CT 02/14/[address] * S/p Exploration of abdomen through recent laparotomy site with closure of fascia done 02/15/17 for Fascia dehiscence 2. Recurrent Resp failure: Extubated then reintubated 02/13, extubated, then reintubated 02/25/17, then extubated 02/27 and reintubated 03/04 * Status post bronchoscopy with clearance of extensive secretions in the left mainstem bronchus with improved aeration radiographically 02/25 * Pulm concerned about possible neuromuscular injury contributing to recurrent resp failure 3. Exacerbation of Crohn's disease with acute colitis and diarrhea Cultures earlier were growing ecoli / proteus / enterococcus 4. Multifocal PNA + Mook Pleural effusions - Effusions likely hydrostatic from hypoalbuminemia. + fevers - monitor, ID managing abx and antifungal 5. Severe Sepsis with lactic acidosis 2/2 severe colitis / PNA - now with fevers again though last episode was >24hrs ago, back on abx. - CT A/P showing new multiple abscesses / infection not likely from these per surgery - Continue abx per ID 6. S/p Systemic shock (hypovolemic +septic) - again, see # 5, abx: Resolved 7. TPN therapy for low prealbumin: 8. Hx of heavy alcohol and tobacco use just until admission - monitor 9. Probable underlying COPD and Cirrhosis based on hx which explains hypoalbuminemia and anasarca - monitor 10. Severe recurrent anemia likely 2/2 occult blood loss from multiple sources : PRN transfusions 11. Hypomagnesemia - replete as needed 12. Encephalopathy / Confusion : patient may have suffered some anoxic brain insult during the course of his hospitalization MRI concerning for possible ostiomeatal unit obstruction / will discuss with ENT the implications of this Dispo: Due to recurrent respiratory failure , (third reintubation ) and vent dependence, patient may benefit from tracheostomy placement, however pulmonary seems optimistic about re-extubation spoke also with ENT regarding MRI findings of sinusitis, not likely to be contributory, but Dr. Brito will see patient. Palliative care consultation to assist the family in making this decision Consider resuming tube feeds while intubated Continue all other ICU supportive care CRITICAL CARE TIME: >35 mins Subjective 24 Hr Interval Summary Free Text/Dictation Remains intubated and sedated. Weaning trials the plan for today. Subjective hx not possible: pt non-verbal Exam/Review of Systems Vital Signs Vitals Vital Signs Date Time Temp Pulse Resp B/P Pulse Ox O2 Delivery O2 Flow Rate FiO2 03/07/17 08:00 93 03/07/17 08:00 99.9 17 110/81 100 Mechanical Ventilator 03/07/17 05:53 40 03/05/17 02:00 5.0 Intake and Output 03/06/17 03/06/17 03/07/17 15:00 23:00 07:00 Intake Total 413.92 ml 522.440 ml 755.592 ml Output Total 1005 ml 700 ml 640 ml Balance -591.08 ml -177.560 ml 115.592 ml Exam Constitutional: intubated, comfortable on vent Head: normocephalic Eyes: PERRL, icteric ENMT: Intubated Respiratory: some diminished breath sounds, No wheezing Cardiovascular: regular rate and rhythm, No murmurs/extra sounds Gastrointestinal: other (midline surgical dressing with wound vac / L sided colostomy and drain / colostomy has dark green fluidy stool), soft otherwise Genitourinary - Male: other (significant scrotal and penile edema) Musculoskeletal: swelling (generalized severe anasarca) Extremities: pitting pedal edema Neurological: intubated Results Result Diagram: 03/07/17 0430 03/07/17 0430 Results 24 hrs Laboratory Tests Test 03/07/17 04:30 White Blood Count 15.4 H Red Blood Count 2.63 L Hemoglobin 7.4 L Hematocrit 23.4 L Mean Corpuscular Volume 89.0 Mean Corpuscular Hemoglobin 28.1 L Mean Corpuscular Hemoglobin Concent 31.6 L Red Cell Distribution Width 15.2 H Platelet Count 459 H Mean Platelet Volume 11.4 H Neutrophils % 81.7 H Lymphocytes % 5.4 L Monocytes % 7.6 Eosinophils % 3.2 Basophils % 0.5 Nucleated Red Blood Cells % 0.0 Neutrophils # 12.6 H Lymphocytes # 0.8 Monocytes # 1.2 H Eosinophils # 0.5 Basophils # 0.1 Nucleated Red Blood Cells # 0.0 Sodium Level 134 L Potassium Level 4.1 Chloride Level 94 L Carbon Dioxide Level 30 Anion Gap 14 Blood Urea Nitrogen 18 Creatinine 0.59 L Glucose Level 101 Calcium Level 8.6 Phosphorus Level 4.5 Albumin 2.5 L Medications Medications Current Medications Pantoprazole (Protonix Iv) 40 mg DAILY@06 IV Last administered on 03/07/17 05: 26; Admin Dose 40 MG; Start 02/01/17 at 06:00 Acetaminophen/ Hydrocodone Bitart ([place] (5/325)) 1 tab Q4H PRN PO PAIN LEVEL 4 -7 Last administered on 02/09/17 18:48; Admin Dose 1 TAB; Start 02/01/17 at 20: 30 Acetaminophen/ Hydrocodone Bitart ([place] (5/325)) 2 tab Q4H PRN PO PAIN LEVEL 7 -10; Start 02/01/17 at 20:30 Bisacodyl (Dulcolax Supp) 10 mg BID PRN [place] CONSTIPATION; Start 02/01/17 at 20: 30 Sodium Biphosphate/ Sodium Phosphate (Fleet Enema) 133 ml BID PRN [place] CONSTIPATION; Start 02/01/17 at 20:30 Acetaminophen (Tylenol Liquid) 650 mg Q4H PRN GTB PAIN AND OR ELEVATED TEMP Last administered on 02/27/17 12:37; Admin Dose 650 MG; Start 02/05/17 at 18:30 IV Flush (NS 10 ml) 10 ml PRN PRN IV IV PROTOCOL; Start 02/07/17 at 14:30 Diphenhydramine HCl 25 mg 25 mg Q6H PRN IV itching Last administered on 00:00; Admin Dose 25 MG; Start 02/07/17 at 20:00 Ondansetron HCl/ Sodium Chloride (Zofran Inj/NS) 54 ml @ 216 mls/hr Q6H PRN IV NAUSEA AND/OR VOMITING; Start 02/09/17 at 11:30 Lorazepam (Ativan) 1 mg Q1HWA PRN IM AGITATION/ANXIETY; Start 02/10/17 at 19:00 Trimethobenzamide HCl (Tigan) 200 mg Q6H PRN IM NAUSEA AND/OR VOMITING; Start 02/10/17 at 19:30 Morphine Sulfate (morphine) 2 mg Q4H PRN IV pain Last administered on 12:22; Admin Dose 2 MG; Start 02/20/17 at 18:30 Docusate Sodium 100 mg 100 mg QHS PRN NGT For Constipation; Start 02/25/17 at 21:00 Meropenem 100 ml @ 200 mls/hr Q8 IVPB Last administered on 03/07/17 05:26; Admin Dose 200 MLS/HR; Start 02/26/17 at 14:00 Fluconazole 100 ml @ 100 mls/hr Q24H IVPB Last administered on 03/06/17 17:53 ; Admin Dose 100 MLS/HR; Start 02/26/17 at 17:00 Acetaminophen 100 ml @ 50 mls/hr Q6H PRN IVPB fever Last administered on 20:44; Admin Dose 50 MLS/HR; Start 02/28/17 at 07:30 Total Parenteral Nutrition (Tpn) 1,000 ml @ 50 mls/hr Q20H IV Last administered on 03/06/17 20:39; Admin Dose 50 MLS/HR; Start 03/02/17 at 14:00 Enoxaparin Sodium 40 mg 40 mg DAILY SC Last administered on 03/06/17 08:24; Admin Dose 40 MG; Start 03/03/17 at 09:00 Vancomycin HCl 750 mg/Sodium Chloride 150 ml @ 75 mls/hr Q12H IVPB Last administered on 03/07/17 03:46; Admin Dose 75 MLS/HR; Start 03/03/17 at 15:00 Propofol (Diprivan) 100 ml @ 2.787 mls/ hr Q12H IV Last administered on 05:16; Admin Dose 11.148 MLS/HR; Start 03/05/17 at 05:00 VINCE PADGETT March 07, 2017 09:34
--- NOTE | 2017-03-07 10:00 | CONS ---
Date/Time of Note Date/Time of Note DATE: 03/07/17 TIME: 09:56 Assessment/Plan Assessment/Plan Additional Assessment/Plan Ventilator setting; AC of 16, tidal volume 550, PEEP of 5, 40% FiO2. Patient currently on propofol at 20 mics per kilogram per minute. Assessment recommendations; 1. Patient initially admitted for diverticulitis with perforation requiring a laparoscopic sigmoidectomy with colostomy. Patient developed respiratory failure due to poor mucus clearance requiring multiple re-intubations. 2. Failure to be weaned from ventilator despite numerous attempts. 3. Anemia. 4. ICU psychosis. 5. Pneumonia. 6. Multiple small intra-abdominal abscesses, currently on appropriate antibiotic regimen. Continue current treatment. Patient scheduled for tracheostomy and G-tube placement. Prognosis is guarded. Consultation Date/Type/Reason Admit Date/Time Feb 01, 2017 at 03:10 Initial Consult Date 02/02/17 Type of Consultation: Pulmonary/critical care Referring Provider: VINCE PADGETT 24 HR Interval Summary Free Text/Dictation Patient condition remains critical. Patient has failed numerous weaning trials from ventilator. Patient was switched over to CPAP mode yesterday and again failed with ensuing severe tachypnea and tachycardia. Patient however has remained hemodynamically stable. General exam; diligent male, awake alert currently in no distress. Exam/Review of Systems Vital Signs Vitals Vital Signs Date Time Temp Pulse Resp B/P Pulse Ox O2 Delivery O2 Flow Rate FiO2 03/07/17 08:00 93 03/07/17 08:00 99.9 17 110/81 100 Mechanical Ventilator 03/07/17 05:53 40 03/05/17 02:00 5.0 Intake and Output 03/06/17 03/06/17 03/07/17 15:00 23:00 07:00 Intake Total 413.92 ml 522.440 ml 755.592 ml Output Total 1005 ml 700 ml 640 ml Balance -591.08 ml -177.560 ml 115.592 ml Exam HEENT exam is; supple neck, no JVD. No lymphadenopathy. Midline trachea. No thyromegaly. Orally intubated. Patient has fair dentition. Pupils are small bilaterally. Chest examination; clear to auscultation. S1-S2 audible, no murmurs. Regular rhythm. Abdomen examination; soft, no organomegaly. Midline dressing in place. Colostomy in place. Bowel sounds audible. Abdomen is nondistended. Extremity examination; no peripheral edema. COMMUNITY SERVICE OFFICER COORDINATOR examination; patient is awake and alert. Follows simple commands and moves all 4 extremities. Results Result Diagram: 03/07/17 0430 03/07/17 0430 Results 24 hrs Laboratory Tests Test 03/07/17 04:30 White Blood Count 15.4 H Red Blood Count 2.63 L Hemoglobin 7.4 L Hematocrit 23.4 L Mean Corpuscular Volume 89.0 Mean Corpuscular Hemoglobin 28.1 L Mean Corpuscular Hemoglobin Concent 31.6 L Red Cell Distribution Width 15.2 H Platelet Count 459 H Mean Platelet Volume 11.4 H Neutrophils % 81.7 H Lymphocytes % 5.4 L Monocytes % 7.6 Eosinophils % 3.2 Basophils % 0.5 Nucleated Red Blood Cells % 0.0 Neutrophils # 12.6 H Lymphocytes # 0.8 Monocytes # 1.2 H Eosinophils # 0.5 Basophils # 0.1 Nucleated Red Blood Cells # 0.0 Sodium Level 134 L Potassium Level 4.1 Chloride Level 94 L Carbon Dioxide Level 30 Anion Gap 14 Blood Urea Nitrogen 18 Creatinine 0.59 L Glucose Level 101 Calcium Level 8.6 Phosphorus Level 4.5 Albumin 2.5 L Medications Medications Current Medications Pantoprazole (Protonix Iv) 40 mg DAILY@06 IV Last administered on 03/07/17 05: 26; Admin Dose 40 MG; Start 02/01/17 at 06:00 Acetaminophen/ Hydrocodone Bitart ([place] (5/325)) 1 tab Q4H PRN PO PAIN LEVEL 4 -7 Last administered on 02/09/17 18:48; Admin Dose 1 TAB; Start 02/01/17 at 20: 30 Acetaminophen/ Hydrocodone Bitart ([place] (5/325)) 2 tab Q4H PRN PO PAIN LEVEL 7 -10; Start 02/01/17 at 20:30 Bisacodyl (Dulcolax Supp) 10 mg BID PRN [place] CONSTIPATION; Start 02/01/17 at 20: 30 Sodium Biphosphate/ Sodium Phosphate (Fleet Enema) 133 ml BID PRN [place] CONSTIPATION; Start 02/01/17 at 20:30 Acetaminophen (Tylenol Liquid) 650 mg Q4H PRN GTB PAIN AND OR ELEVATED TEMP Last administered on 02/27/17 12:37; Admin Dose 650 MG; Start 02/05/17 at 18:30 IV Flush (NS 10 ml) 10 ml PRN PRN IV IV PROTOCOL; Start 02/07/17 at 14:30 Diphenhydramine HCl 25 mg 25 mg Q6H PRN IV itching Last administered on 00:00; Admin Dose 25 MG; Start 02/07/17 at 20:00 Ondansetron HCl/ Sodium Chloride (Zofran Inj/NS) 54 ml @ 216 mls/hr Q6H PRN IV NAUSEA AND/OR VOMITING; Start 02/09/17 at 11:30 Lorazepam (Ativan) 1 mg Q1HWA PRN IM AGITATION/ANXIETY; Start 02/10/17 at 19:00 Trimethobenzamide HCl (Tigan) 200 mg Q6H PRN IM NAUSEA AND/OR VOMITING; Start 02/10/17 at 19:30 Morphine Sulfate (morphine) 2 mg Q4H PRN IV pain Last administered on 12:22; Admin Dose 2 MG; Start 02/20/17 at 18:30 Docusate Sodium 100 mg 100 mg QHS PRN NGT For Constipation; Start 02/25/17 at 21:00 Meropenem 100 ml @ 200 mls/hr Q8 IVPB Last administered on 03/07/17 05:26; Admin Dose 200 MLS/HR; Start 02/26/17 at 14:00 Fluconazole 100 ml @ 100 mls/hr Q24H IVPB Last administered on 03/06/17 17:53 ; Admin Dose 100 MLS/HR; Start 02/26/17 at 17:00 Acetaminophen 100 ml @ 50 mls/hr Q6H PRN IVPB fever Last administered on 20:44; Admin Dose 50 MLS/HR; Start 02/28/17 at 07:30 Total Parenteral Nutrition (Tpn) 1,000 ml @ 50 mls/hr Q20H IV Last administered on 03/06/17 20:39; Admin Dose 50 MLS/HR; Start 03/02/17 at 14:00 Enoxaparin Sodium 40 mg 40 mg DAILY SC Last administered on 03/07/17 09:24; Admin Dose 40 MG; Start 03/03/17 at 09:00 Vancomycin HCl 750 mg/Sodium Chloride 150 ml @ 75 mls/hr Q12H IVPB Last administered on 03/07/17 03:46; Admin Dose 75 MLS/HR; Start 03/03/17 at 15:00 Propofol (Diprivan) 100 ml @ 2.787 mls/ hr Q12H IV Last administered on 05:16; Admin Dose 11.148 MLS/HR; Start 03/05/17 at 05:00 RICHAR ADRIAN March 07, 2017 10:00
--- NOTE | 2017-03-07 12:23 | PN ---
Date/Time of Note Date/Time of Note DATE: 03/07/17 TIME: 12:20 Assessment/Plan Lines/Catheters IV Catheter Type (from Nrsg): PICC Line Zeng in Place (from Nrsg): Yes Assessment/Plan Assessment/Plan [facility] Progress Note Date of Service: 03/07/17 Today's Impression & Plan: Overall stable on the vent. Abd benign. No indication for acute surgical intervention. Remains high risk for complication given perforated colon in the setting of uncontrolled Crohn's. Recovery will take extra time with likely need for rehab. With above assessment, I've recommended the following for today: 1. Cont current cares in ICU 2. F/u on cultures 3. Cont TPN (goal should be about 1800 to 2000 kCal per day) 4. Pulmonary toilet 5. Cont gentle diuresis to BMP < 200 6. Social work and case management to please start working on possible rehab vs. home health nurse set up 7. Increase activity 8. Increase ICS 9. Wean off broad spec antimicrobials 10. Labs in am 11. Cont current wound care with wound vac 12. F/u on hematology w/u 13. Continue prophylactic anticoagulation (no contraindication from surgical standpoint) 14. Set up for trach for early next week Thank you again for your great care of this very pleasant patient and wonderful family. If there are any questions, please feel free to call me at [phone]. TOTAL VISIT TIME: 20 minutes of which more than half was spent in [id number] discussion with the patient, possibly including family, as well as coordination of care between multiple physicians and providers. Disclaimer: Inadvertent spelling or grammatical errors are likely due to EHR/ dictation software use and do not reflect on the overall quality of patient care. Updated Clinical Summary: A very pleasant 46-year-old gentleman with history of Crohn's disease as well as prior surgery for anal fistula approximately 5 years ago, and a torn meniscus repair on the left knee, presenting with abdominal pain associated with a few weeks' duration of diarrhea. S/p an otherwise uncomplicated diagnostic laparoscopy was converted first to hand assist and then to open exploration when perforated sigmoid colon was found and it was resected with a Deena type procedure and end colostomy as well as core needle liver biopsy, segment 5, due to presence of fatty liver disease, lysis of adhesions, and abdominal lavage on 4/17/17. Failed to wean off the vent through 02/06/17. PE was evaluated 02/07/[address] angio and no evidence found. CT abd/pelvis also did not show actionable findings (no abscess; bowel thickening somewhat expected). Extubated 02/07/17. SPRING FITTER called early am 02/13/17 with a few minutes coding, requiring intubation and transfer to ICU. Fortunately, mentally appears to be intact and not on pressors. Lactic acid and CO2 normal with benign appearing abd and viable ostomy. Complicated by fascia dehiscence. S/p exploration of abdomen through recent laparotomy, primary closure of fascia and abdominal lavage on 02/15/17. Reintubated 02/25/17 for bronchoscopy to remove mucus plug. Extubated 02/28/17. Re-intubated 03/05/17 due to respiratory failure and hypoxia. 03/05/17: HIV negative and hepatitis B&C neg. Brain MRI did not contribute to the diagnosis, but no mass effect, obvious hemorrhage or other explanatory findings. COMORBIDITIES: 1. Crohn disease with perforation of sigmoid colon and sepsis. S/p an otherwise uncomplicated diagnostic laparoscopy was converted first to hand assist and then to open exploration when perforated sigmoid colon was found and it was resected with a Deena type procedure and end colostomy as well as core needle liver biopsy, segment 5, due to presence of fatty liver disease, lysis of adhesions, and abdominal lavage on 02/01/17. Complicated by respiratory failure, return trip to ICU and fascia dehiscence. S/p exploration of abdomen through recent laparotomy, primary closure of fascia and abdominal lavage on 02/15. 2. Repair of a fistula approximately 5 years ago. 3. Torn meniscus on the left knee status post repair. Subjective: No major events or complications; remains on the vent; seems more interactive; difficult to clearly communicate with him with the vent, but does not seem to indicate any abdominal pain, SOB, CP or nausea Objective: Vitals: See below Exam: GENERAL: On exam, the patient was laying in bed and appeared to be comfortable and in no acute distress. Intubated and on the vent. Eyes open and responds to voice. ABDOMEN: Soft, nontender and nondistended. Incision wound vac dressings are clean without any evidence of obvious erythema, edema, discharge, or hernia. Wound vac with no sig drainage. Surgery drain site clean. Ostomy pink and viable ; some air and stool in the bag. There are no peritoneal signs or guarding. SKIN: Skin appears to be pink and feels warm to touch. NEUROLOGIC: Patient's eyes open and responds to voice. and follows simple commands appropriately. Exam/Review of Systems Vital Signs Vitals Vital Signs Date Time Temp Pulse Resp B/P Pulse Ox O2 Delivery O2 Flow Rate FiO2 03/07/17 12:00 92 03/07/17 10:00 16 115/81 98 Mechanical Ventilator 03/07/17 09:10 40 03/07/17 08:00 99.9 03/05/17 02:00 5.0 Intake and Output 03/06/17 03/06/17 03/07/17 15:00 23:00 07:00 Intake Total 413.92 ml 522.440 ml 755.592 ml Output Total 1005 ml 700 ml 640 ml Balance -591.08 ml -177.560 ml 115.592 ml Results Result Diagram: 03/07/17 0430 03/07/17 0430 TI HILTON M.D. March 07, 2017 12:23
--- NOTE | 2017-03-07 13:33 | CONS ---
Date/Time of Note Date/Time of Note DATE: 03/07/17 TIME: 13:27 Assessment/Plan Assessment/Plan Chief Complaint/Hosp Course ID PROGRESS NOTE TOTAL ABX DAY # 15 => Vanco IV, Merrem, Diflucan 24H INTERVAL SUMMARY * Sedated on Propofol -> Failed CPAP weaning trial again yesterday * Orally intubated-> Vented, non-communicative, failure to thrive ? * Fevers yesterday w/low grade TMax 100.4 today - all micro has been negative -- * On ABX for resolving ABD infection per CT small abscess, micro perf * MRI BRAIN 03/05/17: Sinusitis w/possible ostiomeatal unit obstruction. PHYSICAL EXAMINATION: GENERAL: Critically ill on the Vent in the ICU, calm, looks comfortable HEENT: ETT-> Secure to Vent NECK: Supple, trach midline CHEST: Equal chest rise bilaterally, without tachypnea HEART: Mild tachycardia ABDOMEN: STEVE present EXTREMITIES: Warm SKIN: Warm, dry ID ASSESSMENT: 46 yo M w/PMHx Crohn's disease admitted with: * POD # 02/01/17 => s/p Laparoscopic exploration,open sigmoid colectomy with Deena end colostomy with liver biopsy segment V * POD # 02/15/17=> S/p exploration of abdomen through recent laparotomy, primary closure of fascia and abdominal lavage. 1. Resolving sepsis, status post perforated viscus repair - OFF Pressors, SIRS continues w/ * Fevers - persisting => Lines, HCAP, resolving ABD infx, MRI w/sinusitis MRI BRAIN 03/05/17: Sinusitis w/possible ostiomeatal unit obstruction. * CT 02/28/17: There are several enhancing fluid collections seen with multiple collections around the hepatic margin and the largest of these at the dome which is new from prior study along with other fluid collection seen extending along the right pericolic gutter inferiorly. These are worrisome for multiple abdominal abscesses. There is a crescentic left lower quadrant enhancing fluid collection which has diminished in size from prior exam and is consistent with residual abscess after prior drainage. * s/p peritonitis w/ 02/01/17MICRO: Abdominal fluid culture growing Proteus mirabilis, E. coli, enterococcus species and strep * CT ABD 02/11: Small volume ascites w/enhancement suggestive of peritonitis 2. Acute recurrent respiratory failure=>Suspect HCAP although all micro is negative * Loculated pleural effusions on CT 02/28/17 * s/p THORA 03/04/17 Micro (-) * s/p Bronch -> BAL (+)Yeast 4. Anasarca: CT 02/28/17 5. Left frontal ethmoid/maxillary sinusitis w/ possible ostiomeatal unit obstruction. * Mild inflammatory changes of the bilateral mastoid air cells without evidence of coalescent mastoiditis. 6. Status post acute renal failure. 7. LIVER DX: Fatty liver w/necroinflammatory activity, no fibrosis, small iron deposit on stain * CT 02/28/17 -> less fatty liver seen as compared to prior 8. Hx of heavy alcohol and tobacco use just until admission - ?ETOH Withdrawal SXS? 9. Probable underlying COPD 10. Hepatosplenomegaly w/pancreatic fluid margin - QUERY early underlying Cirrhosis based on hx which explains hypoalbuminemia - monitor 11. Anemia with persistent thrombocytopenia, possibly secondary to early liver disease, sepsis and antibiotics * Zosyn was changed to Levaquin. * rule out heparin-induced thrombocytopenia versus other etiologies (-)MRSA Nares INVASIVES: * STEVE, PICC 02/27, ETT, OGT ABX ALLERGIES: KNDA CURRENT ABX: TOTAL ABX DAY #15 => Vanco IV, Merrem, Diflucan S/P Zosyn ID RECOMMENDATIONS: 1. Remains on ABX=>Fevers persisting => Lines, HCAP, resolving ABD infx, MRI w/ sinusitis MRI BRAIN 03/05/17: Sinusitis w/possible ostiomeatal unit obstruction. 2. Consider future ABD HOLIDAY 48H "Time Out" -- stop ABX and if he spikes fevers repeat cultures 48H off ABX * Low B/P in setting of anemia, hypoalbuminemia w/anasarca == not clearly related to sepsis although he is clearly at risk 3. Further recs pulmonary & surgery appreciated / . . . Problems: Consultation Date/Type/Reason Admit Date/Time Feb 01, 2017 at 03:10 Initial Consult Date 02/02/17 Type of Consultation: ID Referring Provider: VINCE PADGETT Exam/Review of Systems Vital Signs Vitals Vital Signs Date Time Temp Pulse Resp B/P Pulse Ox O2 Delivery O2 Flow Rate FiO2 03/07/17 12:00 99.9 93 16 112/77 99 Mechanical Ventilator 03/07/17 09:10 40 03/05/17 02:00 5.0 Intake and Output 03/06/17 03/06/17 03/07/17 15:00 23:00 07:00 Intake Total 413.92 ml 522.440 ml 755.592 ml Output Total 1005 ml 700 ml 640 ml Balance -591.08 ml -177.560 ml 115.592 ml Results Result Diagram: 03/07/17 0430 03/07/17 0430 Results 24 hrs Laboratory Tests Test 03/07/17 04:30 White Blood Count 15.4 H Red Blood Count 2.63 L Hemoglobin 7.4 L Hematocrit 23.4 L Mean Corpuscular Volume 89.0 Mean Corpuscular Hemoglobin 28.1 L Mean Corpuscular Hemoglobin Concent 31.6 L Red Cell Distribution Width 15.2 H Platelet Count 459 H Mean Platelet Volume 11.4 H Neutrophils % 81.7 H Lymphocytes % 5.4 L Monocytes % 7.6 Eosinophils % 3.2 Basophils % 0.5 Nucleated Red Blood Cells % 0.0 Neutrophils # 12.6 H Lymphocytes # 0.8 Monocytes # 1.2 H Eosinophils # 0.5 Basophils # 0.1 Nucleated Red Blood Cells # 0.0 Sodium Level 134 L Potassium Level 4.1 Chloride Level 94 L Carbon Dioxide Level 30 Anion Gap 14 Blood Urea Nitrogen 18 Creatinine 0.59 L Glucose Level 101 Calcium Level 8.6 Phosphorus Level 4.5 Albumin 2.5 L Medications Medications Current Medications Pantoprazole (Protonix Iv) 40 mg DAILY@06 IV Last administered on 03/07/17 05: 26; Admin Dose 40 MG; Start 02/01/17 at 06:00 Acetaminophen/ Hydrocodone Bitart ([place] (5/325)) 1 tab Q4H PRN PO PAIN LEVEL 4 -7 Last administered on 02/09/17 18:48; Admin Dose 1 TAB; Start 02/01/17 at 20: 30 Acetaminophen/ Hydrocodone Bitart ([place] (5/325)) 2 tab Q4H PRN PO PAIN LEVEL 7 -10; Start 02/01/17 at 20:30 Bisacodyl (Dulcolax Supp) 10 mg BID PRN [place] CONSTIPATION; Start 02/01/17 at 20: 30 Sodium Biphosphate/ Sodium Phosphate (Fleet Enema) 133 ml BID PRN [place] CONSTIPATION; Start 02/01/17 at 20:30 Acetaminophen (Tylenol Liquid) 650 mg Q4H PRN GTB PAIN AND OR ELEVATED TEMP Last administered on 02/27/17 12:37; Admin Dose 650 MG; Start 02/05/17 at 18:30 IV Flush (NS 10 ml) 10 ml PRN PRN IV IV PROTOCOL; Start 02/07/17 at 14:30 Diphenhydramine HCl 25 mg 25 mg Q6H PRN IV itching Last administered on 00:00; Admin Dose 25 MG; Start 02/07/17 at 20:00 Ondansetron HCl/ Sodium Chloride (Zofran Inj/NS) 54 ml @ 216 mls/hr Q6H PRN IV NAUSEA AND/OR VOMITING; Start 02/09/17 at 11:30 Lorazepam (Ativan) 1 mg Q1HWA PRN IM AGITATION/ANXIETY; Start 02/10/17 at 19:00 Trimethobenzamide HCl (Tigan) 200 mg Q6H PRN IM NAUSEA AND/OR VOMITING; Start 02/10/17 at 19:30 Morphine Sulfate (morphine) 2 mg Q4H PRN IV pain Last administered on 12:22; Admin Dose 2 MG; Start 02/20/17 at 18:30 Docusate Sodium 100 mg 100 mg QHS PRN NGT For Constipation; Start 02/25/17 at 21:00 Meropenem 100 ml @ 200 mls/hr Q8 IVPB Last administered on 03/07/17 05:26; Admin Dose 200 MLS/HR; Start 02/26/17 at 14:00 Fluconazole 100 ml @ 100 mls/hr Q24H IVPB Last administered on 03/06/17 17:53 ; Admin Dose 100 MLS/HR; Start 02/26/17 at 17:00 Acetaminophen 100 ml @ 50 mls/hr Q6H PRN IVPB fever Last administered on 20:44; Admin Dose 50 MLS/HR; Start 02/28/17 at 07:30 Total Parenteral Nutrition (Tpn) 1,000 ml @ 50 mls/hr Q20H IV Last administered on 03/06/17 20:39; Admin Dose 50 MLS/HR; Start 03/02/17 at 14:00 Enoxaparin Sodium 40 mg 40 mg DAILY SC Last administered on 03/07/17 09:24; Admin Dose 40 MG; Start 03/03/17 at 09:00 Vancomycin HCl 750 mg/Sodium Chloride 150 ml @ 75 mls/hr Q12H IVPB Last administered on 03/07/17 03:46; Admin Dose 75 MLS/HR; Start 03/03/17 at 15:00 Propofol (Diprivan) 100 ml @ 2.787 mls/ hr Q12H IV Last administered on 05:16; Admin Dose 11.148 MLS/HR; Start 03/05/17 at 05:00 DARIUSZ QUINTERO NP March 07, 2017 13:33
[2017-03-07] MEDS: TPN 1,000 ML IV SCH (16:59)
--- NOTE | 2017-03-07 17:26 | RADRPT ---
PROCEDURE: XR Chest. CLINICAL INDICATION: Shortness of breath. TECHNIQUE: Single frontal view. COMPARISON: 03/05/2017. FINDINGS: The endotracheal tube and right arm PICC line remain in satisfactory position. There is mild atelec tasis at the lung bases with left worse than right, unchanged. The lungs are otherwise clear. The heart size is normal. There are small bilateral pleural effusions. There is no pneumothorax. IMPRESSION: 1. No change from 03/05/2017. RPTAT: QQ .Rogelio Vera MD, MD Date Time Electronically viewed and signed by .Rogelio Vera MD, MD on 03/07/2017 17:26 .R/
[2017-03-07] MEDS: FLUCONAZOLE 200 MG/NS (PMX) 100 ML IVPB SCH (18:11)
[2017-03-08] VITALS (35 sets, daily range): BP systolic 90–125; BP diastolic 71–86; PULSE 82–98; RESP 16–22
[2017-03-08] MEDS: ALBUTEROL 18 GM INHALER INH SCH ×4 (01:19→19:04)
[2017-03-08] MEDS: IPRATROPIUM (HFA) 12.9 GM INHALER INH SCH ×4 (01:20→19:04)
[2017-03-08] MEDS: ACETYLCYSTEINE 20% 4 ML VIAL NEB SCH ×4 (01:20→19:03)
[2017-03-08] MEDS: PROPOFOL 100 ML IV SCH ×4 (02:37→21:41)
[2017-03-08] MEDS: VANCOMYCIN 750 MG in SOD CHLORIDE 0.9% 150 ML IVPB SCH ×2 (02:37→15:26)
[2017-03-08 04:35] LABS: ADD SCAN DIFF NO
[2017-03-08 04:37] LABS: BASOPHIL # 0.1 10^3/ul (0.0-0.1); BASOPHILS % 0.5 % (0.0-2.0); EOSINOPHILS # 0.6 10^3/ul (0.0-0.5); EOSINOPHILS % 4.5 % (0.0-7.0); HEMATOCRIT 23.2 % (42.0-52.0); HEMOGLOBIN 7.3 g/dl (14.0-18.0); LYMPHOCYTES # 0.8 10^3/ul (0.8-2.9); LYMPHOCYTES % 5.8 % (15.0-51.0); MEAN CORPUSCULAR HEMOGLOBIN 28.3 pg (29.0-33.0); MEAN CORPUSCULAR HGB CONC 31.5 g/dl (32.0-37.0); MEAN CORPUSCULAR VOLUME 89.9 fl (82.0-101.0); MONOCYTE # 0.9 10^3/ul (0.3-0.9); MONOCYTES % 7.3 % (0.0-11.0); NEUTROPHIL # 10.3 10^3/ul (1.6-7.5); NEUTROPHILS % 79.8 % (39.0-77.0); PLATELET COUNT 492 10^3/UL (140-415); RED BLOOD COUNT 2.58 10^6/ul (4.70-6.10); RED CELL DISTRIBUTION WIDTH 15.2 % (11.5-14.5); WHITE BLOOD COUNT 12.9 10^3/ul (4.8-10.8)
[2017-03-08] MEDS: PANTOPRAZOLE 40 MG INJ IV SCH (06:00)
[2017-03-08] MEDS: MEROPENEM 1 GM/100 ML (PMX) 100 ML IVPB SCH ×3 (06:00→21:40)
[2017-03-08] MEDS: FUROSEMIDE 20 MG INJ IV SCH (06:02)
--- NOTE | 2017-03-08 07:10 | PN ---
DATE: 03/07/2017 CARDIOLOGY FOLLOWUP SUBJECTIVE: Discussed with the staff in the ICU. The patient remains intubated on the vent. Rhyth m strip was reviewed and discussed with the staff. The patient remains in sinus rhythm. No new car diac event. MEDICATIONS: Reviewed as per medication reconciliation, personally reviewed. PHYSICAL EXAMINATION: VITAL SIGNS: Temperature 98.7, T-max is 101, heart rate of 91, blood pressure 115/81, respiration r ate of 16, saturating 100%. HEENT: Normocephalic, atraumatic. Thin, cachectic gentleman. Status post intubation on the vent. CARDIOVASCULAR: Regular rate and rhythm, systolic murmur. PULMONARY: With mild rhonchi. GASTROINTESTINAL: Status post colostomy surgery. EXTREMITIES: No significant lower extremity edema. NEUROLOGIC: Awake, responds appropriately. PSYCHIATRIC: Appears to be calm. LABORATORY: Sodium 134, potassium 4.1, BUN of 18, creatinine 0.59, glucose 101. Albumin is 2.5. W BC of 16.4, hemoglobin 7.4, platelets of 459. ASSESSMENT AND PLAN: 1. Perforated colon, status post surgery. 2. Sepsis. 3. Respiratory failure, recurrent and currently back intubated. 4. ____ cardiomyopathy, ejection fraction is estimated about 50%. 5. Congestive heart failure secondary to diastolic dysfunction, mostly. 6. History of Crohn disease. 7. Severe anemia. RECOMMENDATIONS: We will continue with the respiratory support. Nutritional support and TPN as per surgery will be continued. Antibiotic as per internal medicine. I will continue with the current dose of diuretics for now and adjust it accordingly. Continue with the ICU care and vent support. Dr. Gandhi will follow up tomorrow. More than 36 minutes of critical care time was spent managing this patient excluding procedures. Dictated By: LEONID GORDILLO MD AV/NTS Conf#: [id number] DID#: [id number] CC: VINCE PADGETT MD;*EndCC*
[2017-03-08 08:15] LABS: POTASSIUM 4.1 mmol/L (3.5-5.1)
[2017-03-08 08:17] LABS: CREATININE 0.55 mg/dl (0.61-1.24)
[2017-03-08 08:18] LABS: CALCIUM 8.6 mg/dl (8.4-10.2); MAGNESIUM 1.7 mg/dl (1.7-2.5); PHOSPHORUS 4.2 mg/dl (2.5-4.9)
[2017-03-08] MEDS: ENOXAPARIN 40 MG/0.4 ML SYG SC SCH (09:08)
--- NOTE | 2017-03-08 09:59 | CONS ---
Date/Time of Note Date/Time of Note DATE: 03/08/17 TIME: 09:56 Assessment/Plan Assessment/Plan Additional Assessment/Plan Ventilator setting; AC of 16, tidal volume 550, PEEP of 5, 40% FiO2. Chest x-ray was reviewed from yesterday evening which is essentially clear. Assessment recommendations; 1. Patient admitted for acute diverticulitis with sigmoid colon rupture requiring laparoscopic sigmoid resection with colostomy. 2. Complicated postop course punctuated by multiple episodes of respiratory failure requiring multiple re-intubations. 3. Pneumonia with marked radiological improvement. 4. In-hospital psychosis. 5. Ileus. 6. Anemia. 7. Failure to be weaned from ventilator. 8. Multiple small intra-abdominal abscesses, not amenable to percutaneous drainage. Continue current supportive care. Transfuse packed RBC. Patient is scheduled for tracheostomy and G-tube placement. Consultation Date/Type/Reason Admit Date/Time Feb 01, 2017 at 03:10 Initial Consult Date 02/02/17 Type of Consultation: Pulmonary/critical care Referring Provider: VINCE PADGETT 24 HR Interval Summary Free Text/Dictation Patient condition remains critical but stable to remains awake and alert. Has remained hemodynamically stable. Patient is scheduled for tracheostomy and G- tube placement soon. General exam; middle-aged male, awake alert currently in no distress orally intubated. Exam/Review of Systems Vital Signs Vitals Vital Signs Date Time Temp Pulse Resp B/P Pulse Ox O2 Delivery O2 Flow Rate FiO2 03/08/17 08:00 92 03/08/17 07:37 16 100 40 03/08/17 06:00 99.0 120/85 Mechanical Ventilator 03/05/17 02:00 5.0 Intake and Output 03/07/17 03/07/17 03/08/17 15:00 23:00 07:00 Intake Total 479.752 ml 962.180 ml 807.87 ml Output Total 1075 ml 1065 ml 470 ml Balance -595.248 ml -102.820 ml 337.87 ml Exam HEENT examination; supple neck, no JVD. No lymphadenopathy. Midline trachea. No thyromegaly. Orally intubated. Pupils are midsize and reactive to light. Patient has fair dentition. Chest examination; clear to auscultation. S1-S2 audible, no murmurs. Regular rhythm. Abdomen examination; soft, midline dressing in place. Colostomy in place. Bowel sounds audible. Extremity examination; no peripheral edema. Pulses 2+ bilaterally. NDT INSPECTOR examination; no focal motor deficit. Results Result Diagram: 03/08/17 0426 03/08/17 0426 Results 24 hrs Laboratory Tests Test 03/08/17 04:26 03/08/17 05:25 White Blood Count 12.9 H Red Blood Count 2.58 L Hemoglobin 7.3 L Hematocrit 23.2 L Mean Corpuscular Volume 89.9 Mean Corpuscular Hemoglobin 28.3 L Mean Corpuscular Hemoglobin Concent 31.5 L Red Cell Distribution Width 15.2 H Platelet Count 492 H Mean Platelet Volume 11.0 H Neutrophils % 79.8 H Lymphocytes % 5.8 L Monocytes % 7.3 Eosinophils % 4.5 Basophils % 0.5 Nucleated Red Blood Cells % 0.0 Neutrophils # 10.3 H Lymphocytes # 0.8 Monocytes # 0.9 Eosinophils # 0.6 H Basophils # 0.1 Nucleated Red Blood Cells # 0.0 Sodium Level 135 Potassium Level 4.1 Chloride Level 96 L Carbon Dioxide Level 29 Anion Gap 14 Blood Urea Nitrogen 17 Creatinine 0.55 L Glucose Level 100 Calcium Level 8.6 Phosphorus Level 4.2 Magnesium Level 1.7 Bedside Glucose 109 Medications Medications Current Medications Pantoprazole (Protonix Iv) 40 mg DAILY@06 IV Last administered on 03/08/17 06: 00; Admin Dose 40 MG; Start 02/01/17 at 06:00 Acetaminophen/ Hydrocodone Bitart ([place] (5/325)) 1 tab Q4H PRN PO PAIN LEVEL 4 -7 Last administered on 02/09/17 18:48; Admin Dose 1 TAB; Start 02/01/17 at 20: 30 Acetaminophen/ Hydrocodone Bitart ([place] (5/325)) 2 tab Q4H PRN PO PAIN LEVEL 7 -10; Start 02/01/17 at 20:30 Bisacodyl (Dulcolax Supp) 10 mg BID PRN [place] CONSTIPATION; Start 02/01/17 at 20: 30 Sodium Biphosphate/ Sodium Phosphate (Fleet Enema) 133 ml BID PRN [place] CONSTIPATION; Start 02/01/17 at 20:30 Acetaminophen (Tylenol Liquid) 650 mg Q4H PRN GTB PAIN AND OR ELEVATED TEMP Last administered on 02/27/17 12:37; Admin Dose 650 MG; Start 02/05/17 at 18:30 IV Flush (NS 10 ml) 10 ml PRN PRN IV IV PROTOCOL; Start 02/07/17 at 14:30 Diphenhydramine HCl 25 mg 25 mg Q6H PRN IV itching Last administered on 00:00; Admin Dose 25 MG; Start 02/07/17 at 20:00 Ondansetron HCl/ Sodium Chloride (Zofran Inj/NS) 54 ml @ 216 mls/hr Q6H PRN IV NAUSEA AND/OR VOMITING; Start 02/09/17 at 11:30 Lorazepam (Ativan) 1 mg Q1HWA PRN IM AGITATION/ANXIETY; Start 02/10/17 at 19:00 Trimethobenzamide HCl (Tigan) 200 mg Q6H PRN IM NAUSEA AND/OR VOMITING; Start 02/10/17 at 19:30 Morphine Sulfate (morphine) 2 mg Q4H PRN IV pain Last administered on 12:22; Admin Dose 2 MG; Start 02/20/17 at 18:30 Docusate Sodium 100 mg 100 mg QHS PRN NGT For Constipation; Start 02/25/17 at 21:00 Meropenem 100 ml @ 200 mls/hr Q8 IVPB Last administered on 03/08/17 06:00; Admin Dose 200 MLS/HR; Start 02/26/17 at 14:00 Fluconazole 100 ml @ 100 mls/hr Q24H IVPB Last administered on 03/07/17 18:11 ; Admin Dose 100 MLS/HR; Start 02/26/17 at 17:00 Acetaminophen 100 ml @ 50 mls/hr Q6H PRN IVPB fever Last administered on 20:44; Admin Dose 50 MLS/HR; Start 02/28/17 at 07:30 Total Parenteral Nutrition (Tpn) 1,000 ml @ 50 mls/hr Q20H IV Last administered on 03/07/17 16:59; Admin Dose 50 MLS/HR; Start 03/02/17 at 14:00 Enoxaparin Sodium 40 mg 40 mg DAILY SC Last administered on 03/08/17 09:08; Admin Dose 40 MG; Start 03/03/17 at 09:00 Vancomycin HCl 750 mg/Sodium Chloride 150 ml @ 75 mls/hr Q12H IVPB Last administered on 03/08/17 02:37; Admin Dose 75 MLS/HR; Start 03/03/17 at 15:00 Propofol (Diprivan) 100 ml @ 2.787 mls/ hr Q12H IV Last administered on 07:08; Admin Dose 16.722 MLS/HR; Start 03/05/17 at 05:00 RICHAR ADRIAN March 08, 2017 09:59
--- NOTE | 2017-03-08 10:13 | PN ---
Date/Time of Note Date/Time of Note DATE: 03/08/17 TIME: 10:06 Assessment/Plan VTE Prophylaxis VTE Prophylaxis Intervention: LMWH Lines/Catheters IV Catheter Type (from Nrs): PICC Line Central line still needed: Yes Urinary Cath still in place: Yes Reason Cath still needed: urinary retention Assessment/Plan Chief Complaint/Hosp Course Assessment/Plan: 46M with: 1. Perforated sigmoid colon 2/2 Severe Crohn's colitis * S/p Urgent Open Cronin's procedure with end colostomy, liver biopsy and abdominal lavage 02/01/17P * S/p post operative paracolic abscess drained via CT 02/14/[address] * S/p Exploration of abdomen through recent laparotomy site with closure of fascia done 02/15/17 for Fascia dehiscence 2. Recurrent Resp failure: Extubated then reintubated 02/13, extubated, then reintubated 02/25/17, then extubated 02/27 and reintubated 03/04 * Status post bronchoscopy with clearance of extensive secretions in the left mainstem bronchus with improved aeration radiographically 02/25 * Pulm concerned about possible neuromuscular injury contributing to recurrent resp failure - for possible trach placement - family still deciding about this. 3. Exacerbation of Crohn's disease with acute colitis and diarrhea Cultures earlier were growing ecoli / proteus / enterococcus 4. Multifocal PNA + Mook Pleural effusions - Effusions likely hydrostatic from hypoalbuminemia. + fevers - monitor, ID managing abx and antifungal 5. Severe Sepsis with lactic acidosis 2/2 severe colitis / PNA - Continue abx per ID 6. S/p Systemic shock (hypovolemic +septic) - again, see # 5, abx: Resolved 7. TPN therapy for low prealbumin: monitor 8. Hx of heavy alcohol and tobacco use just until admission - monitor 9. Probable underlying COPD and Cirrhosis based on hx which explains hypoalbuminemia and anasarca - monitor 10. Severe recurrent anemia likely 2/2 occult blood loss from multiple sources : PRN transfusions 11. Hypomagnesemia - replete as needed 12. Encephalopathy / Confusion : patient may have suffered some anoxic brain insult during the course of his hospitalization MRI concerning for possible ostiomeatal unit obstruction / will discuss with ENT the implications of this Dispo: Due to recurrent respiratory failure, (third reintubation ) and vent dependence, patient may benefit from tracheostomy placement spoke also with ENT regarding MRI findings of sinusitis, not likely to be contributory, but Dr. Brito will see patient. Palliative care consultation and Neuro consults to assist in encephalopathy, and for the family in making this decision Consider resuming tube feeds while intubated Continue all other ICU supportive care CRITICAL CARE TIME: 45 mins Problems: Subjective 24 Hr Interval Summary Free Text/Dictation Pt still intubated, family still deciding about trach placement. No acute events overnight. Exam/Review of Systems Vital Signs Vitals Vital Signs Date Time Temp Pulse Resp B/P Pulse Ox O2 Delivery O2 Flow Rate FiO2 03/08/17 09:15 80 22 100 40 03/08/17 06:00 99.0 120/85 Mechanical Ventilator 03/05/17 02:00 5.0 Intake and Output 03/07/17 03/07/17 03/08/17 15:00 23:00 07:00 Intake Total 479.752 ml 962.180 ml 807.87 ml Output Total 1075 ml 1065 ml 470 ml Balance -595.248 ml -102.820 ml 337.87 ml Exam Constitutional: intubated, comfortable on vent Head: normocephalic Eyes: PERRL, icteric ENMT: Intubated Respiratory: some diminished breath sounds, No wheezing Cardiovascular: regular rate and rhythm, No murmurs/extra sounds Gastrointestinal: other (midline surgical dressing with wound vac / L sided colostomy and drain / colostomy has dark green fluidy stool), soft otherwise Genitourinary - Male: other (significant scrotal and penile edema) Musculoskeletal: swelling (generalized severe anasarca) Extremities: pitting pedal edema Neurological: intubated Results Result Diagram: 03/08/17 0426 03/08/17 0426 Results 24 hrs Laboratory Tests Test 03/08/17 04:26 03/08/17 05:25 White Blood Count 12.9 H Red Blood Count 2.58 L Hemoglobin 7.3 L Hematocrit 23.2 L Mean Corpuscular Volume 89.9 Mean Corpuscular Hemoglobin 28.3 L Mean Corpuscular Hemoglobin Concent 31.5 L Red Cell Distribution Width 15.2 H Platelet Count 492 H Mean Platelet Volume 11.0 H Neutrophils % 79.8 H Lymphocytes % 5.8 L Monocytes % 7.3 Eosinophils % 4.5 Basophils % 0.5 Nucleated Red Blood Cells % 0.0 Neutrophils # 10.3 H Lymphocytes # 0.8 Monocytes # 0.9 Eosinophils # 0.6 H Basophils # 0.1 Nucleated Red Blood Cells # 0.0 Sodium Level 135 Potassium Level 4.1 Chloride Level 96 L Carbon Dioxide Level 29 Anion Gap 14 Blood Urea Nitrogen 17 Creatinine 0.55 L Glucose Level 100 Calcium Level 8.6 Phosphorus Level 4.2 Magnesium Level 1.7 Bedside Glucose 109 Medications Medications Current Medications Pantoprazole (Protonix Iv) 40 mg DAILY@06 IV Last administered on 03/08/17 06: 00; Admin Dose 40 MG; Start 02/01/17 at 06:00 Acetaminophen/ Hydrocodone Bitart ([place] (5/325)) 1 tab Q4H PRN PO PAIN LEVEL 4 -7 Last administered on 02/09/17 18:48; Admin Dose 1 TAB; Start 02/01/17 at 20: 30 Acetaminophen/ Hydrocodone Bitart ([place] (5/325)) 2 tab Q4H PRN PO PAIN LEVEL 7 -10; Start 02/01/17 at 20:30 Bisacodyl (Dulcolax Supp) 10 mg BID PRN [place] CONSTIPATION; Start 02/01/17 at 20: 30 Sodium Biphosphate/ Sodium Phosphate (Fleet Enema) 133 ml BID PRN [place] CONSTIPATION; Start 02/01/17 at 20:30 Acetaminophen (Tylenol Liquid) 650 mg Q4H PRN GTB PAIN AND OR ELEVATED TEMP Last administered on 02/27/17 12:37; Admin Dose 650 MG; Start 02/05/17 at 18:30 IV Flush (NS 10 ml) 10 ml PRN PRN IV IV PROTOCOL; Start 02/07/17 at 14:30 Diphenhydramine HCl 25 mg 25 mg Q6H PRN IV itching Last administered on 00:00; Admin Dose 25 MG; Start 02/07/17 at 20:00 Ondansetron HCl/ Sodium Chloride (Zofran Inj/NS) 54 ml @ 216 mls/hr Q6H PRN IV NAUSEA AND/OR VOMITING; Start 02/09/17 at 11:30 Lorazepam (Ativan) 1 mg Q1HWA PRN IM AGITATION/ANXIETY; Start 02/10/17 at 19:00 Trimethobenzamide HCl (Tigan) 200 mg Q6H PRN IM NAUSEA AND/OR VOMITING; Start 02/10/17 at 19:30 Morphine Sulfate (morphine) 2 mg Q4H PRN IV pain Last administered on 12:22; Admin Dose 2 MG; Start 02/20/17 at 18:30 Docusate Sodium 100 mg 100 mg QHS PRN NGT For Constipation; Start 02/25/17 at 21:00 Meropenem 100 ml @ 200 mls/hr Q8 IVPB Last administered on 03/08/17 06:00; Admin Dose 200 MLS/HR; Start 02/26/17 at 14:00 Fluconazole 100 ml @ 100 mls/hr Q24H IVPB Last administered on 03/07/17 18:11 ; Admin Dose 100 MLS/HR; Start 02/26/17 at 17:00 Acetaminophen 100 ml @ 50 mls/hr Q6H PRN IVPB fever Last administered on 20:44; Admin Dose 50 MLS/HR; Start 02/28/17 at 07:30 Total Parenteral Nutrition (Tpn) 1,000 ml @ 50 mls/hr Q20H IV Last administered on 03/07/17 16:59; Admin Dose 50 MLS/HR; Start 03/02/17 at 14:00 Enoxaparin Sodium 40 mg 40 mg DAILY SC Last administered on 03/08/17 09:08; Admin Dose 40 MG; Start 03/03/17 at 09:00 Vancomycin HCl 750 mg/Sodium Chloride 150 ml @ 75 mls/hr Q12H IVPB Last administered on 03/08/17 02:37; Admin Dose 75 MLS/HR; Start 03/03/17 at 15:00 Propofol (Diprivan) 100 ml @ 2.787 mls/ hr Q12H IV Last administered on 07:08; Admin Dose 16.722 MLS/HR; Start 03/05/17 at 05:00 SUSAN SANCHEZ March 08, 2017 10:13
--- NOTE | 2017-03-08 11:17 | PN ---
Date/Time of Note Date/Time of Note DATE: 03/08/17 TIME: 11:11 Assessment/Plan Lines/Catheters IV Catheter Type (from Nrsg): PICC Line Zeng in Place (from Nrsg): Yes Assessment/Plan Assessment/Plan [facility] Progress Note Date of Service: 03/08/17 Today's Impression & Plan: Overall stable on the vent. Abd remains benign. Wound healing well. No indication for acute surgical intervention. Had a long discussion with patient' s father yesterday over the phone, and today discussed case with Dr. Britt and team. There seems to be disagreement within the family regarding care decisions. My impression is that the patient's mother is overwhelmed with what he is going through and she is not making sound decisions for him (she seems to be mistakenly thinking that there is no hope and that he is only suffering at this point). I disagree with this thought and discussed the available evidence to the contrary with the patient's father who seems to understand and agree with my impressions. Remains high risk for complication given perforated colon in the setting of uncontrolled Crohn's. Recovery will take extra time with likely need for rehab. With above assessment, I've recommended the following for today: 1. Cont current cares in ICU 2. F/u on cultures 3. Cont TPN (goal should be about 1800 to 2000 kCal per day) 4. Pulmonary toilet 5. Cont gentle diuresis to BMP < 200 6. Social work and case management to please start working on possible rehab vs. home health nurse set up 7. Increase activity 8. Increase ICS 9. Wean off broad spec antimicrobials 10. Labs in am 11. Cont current wound care with wound vac 12. F/u on hematology w/u 13. Continue prophylactic anticoagulation (no contraindication from surgical standpoint) 14. Set up for family meeting to hopefully gain total consensus on the care plan (tentatively set up for am; agree it would be beneficial to do the Trach and PEG sooner than later). 15. Track and PEG at this point are necessary and should be planned once we have permission from patient's decision maker(s) Thank you again for your great care of this very pleasant patient and wonderful family. If there are any questions, please feel free to call me at [phone]. TOTAL VISIT TIME: 20 minutes of which more than half was spent in [id number] discussion with the patient, possibly including family, as well as coordination of care between multiple physicians and providers. Disclaimer: Inadvertent spelling or grammatical errors are likely due to EHR/ dictation software use and do not reflect on the overall quality of patient care. Updated Clinical Summary: A very pleasant 46-year-old gentleman with history of Crohn's disease as well as prior surgery for anal fistula approximately 5 years ago, and a torn meniscus repair on the left knee, presenting with abdominal pain associated with a few weeks' duration of diarrhea. S/p an otherwise uncomplicated diagnostic laparoscopy was converted first to hand assist and then to open exploration when perforated sigmoid colon was found and it was resected with a Deena type procedure and end colostomy as well as core needle liver biopsy, segment 5, due to presence of fatty liver disease, lysis of adhesions, and abdominal lavage on 02/01/17. Failed to wean off the vent through 02/06/17. PE was evaluated 02/07/[address] angio and no evidence found. CT abd/pelvis also did not show actionable findings (no abscess; bowel thickening somewhat expected). Extubated 02/07/17. SALES AND MARKETING DIRECTOR called early am 02/13/17 with a few minutes coding, requiring intubation and transfer to ICU. Fortunately, mentally appears to be intact and not on pressors. Lactic acid and CO2 normal with benign appearing abd and viable ostomy. Complicated by fascia dehiscence. S/p exploration of abdomen through recent laparotomy, primary closure of fascia and abdominal lavage on 02/15/17. Reintubated 02/25/17 for bronchoscopy to remove mucus plug. Extubated 02/28/17. Re-intubated 03/05/17 due to respiratory failure and hypoxia. 03/05/17: HIV negative and hepatitis B&C neg. Brain MRI did not contribute to the diagnosis, but no mass effect, obvious hemorrhage or other explanatory findings. COMORBIDITIES: 1. Crohn disease with perforation of sigmoid colon and sepsis. S/p an otherwise uncomplicated diagnostic laparoscopy was converted first to hand assist and then to open exploration when perforated sigmoid colon was found and it was resected with a Deena type procedure and end colostomy as well as core needle liver biopsy, segment 5, due to presence of fatty liver disease, lysis of adhesions, and abdominal lavage on 02/01/17. Complicated by respiratory failure, return trip to ICU and fascia dehiscence. S/p exploration of abdomen through recent laparotomy, primary closure of fascia and abdominal lavage on 02/15. 2. Repair of a fistula approximately 5 years ago. 3. Torn meniscus on the left knee status post repair. Subjective: No major events or complications; remains on the vent; seems reasonably interactive; difficult to clearly communicate with him with the vent, but does not seem to indicate any abdominal pain, SOB, CP or nausea Objective: Vitals: See below Exam: GENERAL: On exam, the patient was laying in bed and appeared to be comfortable and in no acute distress. Intubated and on the vent. Eyes open and responds to voice. ABDOMEN: Soft, nontender and nondistended. Incision wound vac dressings dc'd and incisions are clean without any evidence of obvious erythema, edema, discharge, or hernia. Nice beefy red granulation tissue in the bed. Wound vac with no sig drainage. Surgery drain site clean. Ostomy pink and viable; some air and stool in the bag. There are no peritoneal signs or guarding. SKIN: Skin appears to be pink and feels warm to touch. NEUROLOGIC: Patient's eyes open and responds to voice. and follows simple commands appropriately. Exam/Review of Systems Vital Signs Vitals Vital Signs Date Time Temp Pulse Resp B/P Pulse Ox O2 Delivery O2 Flow Rate FiO2 03/08/17 09:15 80 22 100 40 03/08/17 06:00 99.0 120/85 Mechanical Ventilator 03/05/17 02:00 5.0 Intake and Output 03/07/17 03/07/17 03/08/17 15:00 23:00 07:00 Intake Total 479.752 ml 962.180 ml 807.87 ml Output Total 1075 ml 1065 ml 470 ml Balance -595.248 ml -102.820 ml 337.87 ml Results Result Diagram: 03/08/17 0426 03/08/17 0426 TI HILTON M.D. March 08, 2017 11:17
--- NOTE | 2017-03-08 12:35 | PN ---
DATE: 03/08/2017 SUBJECTIVE: Patient remains intubated. He is awake, in no distress. He is afebrile currently with a T-max yesterday of 99.9. T-current 99.4, pulse 93, respirations 17, blood pressure 105/81, saturation 100 on 40 FIO2. LABORATORIES: WBC 12.9, H and H 7.3 and 23.2, platelets 492, neutrophils 79.8, BUN 17, creatinine 0.55. DIAGNOSTICS: Chest x-ray from yesterday revealed no change. Lungs with mild atelectasis to the bases, left worse than right, unchanged. INDWELLINGS: Endotracheal tube, PICC line, Zeng catheter. ANTIMICROBIALS: 1. Vancomycin. 2. Fluconazole. 3. Meropenem. PHYSICAL EXAMINATION: GENERAL: This is a fragile, chronically ill-appearing, middle-aged man who is awake, in no distress. HEENT: Head atraumatic, normocephalic. Sclerae anicteric. Buccal mucosa dry. NECK: Supple, trachea midline. CHEST: Rise symmetrical. Breath sounds diminished to bases. HEART: S1, S2. ABDOMEN: Soft. Bowel tones present. EXTREMITIES: Without cyanosis. Bilateral trace edema. ASSESSMENT: 1. Recurrent fevers, possibly secondary to intra-abdominal process. 2. Resolved pneumonia, status post bronchoscopy with bronchoalveolar lavage grew yeast, patient is on fluconazole. 3. Crohn disease. 4. Status post perforated viscus repair. 5. History of ETOH abuse. 6. Anemia. PLAN 1. The patient will remain on antibiotics. 2. If he spikes a fever of 101, we will reculture him. 3. He is being followed by multiple consultants. Dr Kuo is on case and seeing him in surgical consultation who recommends trach and PEG. DW Dr Kuo Dictated By: THOMAS ELLIS CHROME TANNER for MICKY RAMÍREZ/YAN Conf#: [id number] DID#: [id number] MTDD
--- NOTE | 2017-03-08 13:22 | CONS ---
DATE OF ADMISSION: 02/01/2017 DATE OF CONSULTATION: 03/08/2017 REASON FOR CONSULTATION: Evaluation for tracheostomy. Thank you, Dr. Kuo and Dr. Britt, for asking me to see this patient. HISTORY OF PRESENT ILLNESS: This is a 46-year-old male with a history of Crohn disease and anal fis david repaired 5 years ago. The patient was admitted because of abdominal distention, lactic acidosi s, underwent bowel surgery. Postoperatively, he has been intubated, unable to come off the ventilat or secondary to multiple comorbidities. He has failed extubation. Currently, patient is being andrea ryder for sepsis and will be needing long-term vent support and a tracheostomy. PAST MEDICAL HISTORY: Significant for Crohn disease and left knee meniscus tear. PAST SURGICAL HISTORY: Left knee surgery and recent abdominal exploration and bowel surgery. MEDICATIONS: List reviewed. PHYSICAL EXAMINATION: VITAL SIGNS: Blood pressure is 105/81, pulse is 92, respirations 17, saturations 100% on 40% FIO2. The patient is orotracheally intubated. Temperature is 99.4. HEENT: Orotracheally intubated. CARDIOVASCULAR: Regular rate and rhythm. LUNGS: Diminished breath sounds at the bases. ABDOMEN: Soft. EXTREMITIES: Warm. LABORATORY VALUES: Hemoglobin is 7.3, white count is 12.9, platelet count is 492, INR 1.09. IMPRESSION: Respiratory failure. RECOMMENDATIONS: We will proceed with the placement of a tracheostomy. Will discuss with the refer ring physicians. Dictated By: ROMAN BOWLING/YAN Conf#: [id number] DID#: [id number]
[2017-03-08] MEDS: TPN 1,000 ML IV SCH (14:13)
--- NOTE | 2017-03-08 17:05 | CONS ---
Date/Time of Note Date/Time of Note DATE: 03/08/17 TIME: 17:04 Assessment/Plan Assessment/Plan Additional Assessment/Plan Perforated colon status post surgery Severe sepsis Respiratory failure-reintubated Low normal ejection fraction 50% Acute decompensated diastolic congestive heart failure Crohn's disease Acute blood loss anemia -Patient with significant improvement in lower extremity edema and chest x-ray. Would decrease Lasix to daily. Maintain potassium above 4.0 and magnesium above 2.0. Consultation Date/Type/Reason Admit Date/Time Feb 01, 2017 at 03:10 Initial Consult Date 02/02/17 Type of Consultation: cv Referring Provider: VINCE PADGETT 24 HR Interval Summary Free Text/Dictation Patient remains intubated. No new cardiac issues as per nursing staff Exam/Review of Systems Vital Signs Vitals Vital Signs Date Time Temp Pulse Resp B/P Pulse Ox O2 Delivery O2 Flow Rate FiO2 03/08/17 16:00 93 16 110/80 99 Mechanical Ventilator 03/08/17 15:21 40 03/08/17 12:00 99.2 03/05/17 02:00 5.0 Intake and Output 03/07/17 03/07/17 03/08/17 15:00 23:00 07:00 Intake Total 479.752 ml 962.180 ml 807.87 ml Output Total 1075 ml 1065 ml 650 ml Balance -595.248 ml -102.820 ml 157.87 ml Exam Intubated, no apparent distress, following commands Head: normocephalic ENMT: intubated Respiratory: other (Coarse breath sounds bilaterally, no wheezing) Cardiovascular: other (S1-S2 heard), regular rate and rhythm Gastrointestinal: bowel sounds, non-tender, soft Extremities: other (No edema) Results Result Diagram: 03/08/17 0426 03/08/17 0426 Results 24 hrs Laboratory Tests Test 03/08/17 04:26 03/08/17 05:25 White Blood Count 12.9 H Red Blood Count 2.58 L Hemoglobin 7.3 L Hematocrit 23.2 L Mean Corpuscular Volume 89.9 Mean Corpuscular Hemoglobin 28.3 L Mean Corpuscular Hemoglobin Concent 31.5 L Red Cell Distribution Width 15.2 H Platelet Count 492 H Mean Platelet Volume 11.0 H Neutrophils % 79.8 H Lymphocytes % 5.8 L Monocytes % 7.3 Eosinophils % 4.5 Basophils % 0.5 Nucleated Red Blood Cells % 0.0 Neutrophils # 10.3 H Lymphocytes # 0.8 Monocytes # 0.9 Eosinophils # 0.6 H Basophils # 0.1 Nucleated Red Blood Cells # 0.0 Sodium Level 135 Potassium Level 4.1 Chloride Level 96 L Carbon Dioxide Level 29 Anion Gap 14 Blood Urea Nitrogen 17 Creatinine 0.55 L Glucose Level 100 Calcium Level 8.6 Phosphorus Level 4.2 Magnesium Level 1.7 Bedside Glucose 109 Medications Medications Current Medications Pantoprazole (Protonix Iv) 40 mg DAILY@06 IV Last administered on 03/08/17 06: 00; Admin Dose 40 MG; Start 02/01/17 at 06:00 Acetaminophen/ Hydrocodone Bitart ([place] (5/325)) 1 tab Q4H PRN PO PAIN LEVEL 4 -7 Last administered on 02/09/17 18:48; Admin Dose 1 TAB; Start 02/01/17 at 20: 30 Acetaminophen/ Hydrocodone Bitart ([place] (5/325)) 2 tab Q4H PRN PO PAIN LEVEL 7 -10; Start 02/01/17 at 20:30 Bisacodyl (Dulcolax Supp) 10 mg BID PRN WI CONSTIPATION; Start 02/01/17 at 20: 30 Sodium Biphosphate/ Sodium Phosphate (Fleet Enema) 133 ml BID PRN WI CONSTIPATION; Start 02/01/17 at 20:30 Acetaminophen (Tylenol Liquid) 650 mg Q4H PRN GTB PAIN AND OR ELEVATED TEMP Last administered on 02/27/17 12:37; Admin Dose 650 MG; Start 02/05/17 at 18:30 IV Flush (NS 10 ml) 10 ml PRN PRN IV IV PROTOCOL; Start 02/07/17 at 14:30 Diphenhydramine HCl 25 mg 25 mg Q6H PRN IV itching Last administered on 00:00; Admin Dose 25 MG; Start 02/07/17 at 20:00 Ondansetron HCl/ Sodium Chloride (Zofran Inj/NS) 54 ml @ 216 mls/hr Q6H PRN IV NAUSEA AND/OR VOMITING; Start 02/09/17 at 11:30 Lorazepam (Ativan) 1 mg Q1HWA PRN IM AGITATION/ANXIETY; Start 02/10/17 at 19:00 Trimethobenzamide HCl (Tigan) 200 mg Q6H PRN IM NAUSEA AND/OR VOMITING; Start 02/10/17 at 19:30 Morphine Sulfate (morphine) 2 mg Q4H PRN IV pain Last administered on 12:22; Admin Dose 2 MG; Start 02/20/17 at 18:30 Docusate Sodium 100 mg 100 mg QHS PRN NGT For Constipation; Start 02/25/17 at 21:00 Meropenem 100 ml @ 200 mls/hr Q8 IVPB Last administered on 03/08/17 14:09; Admin Dose 200 MLS/HR; Start 02/26/17 at 14:00 Fluconazole 100 ml @ 100 mls/hr Q24H IVPB Last administered on 03/07/17 18:11 ; Admin Dose 100 MLS/HR; Start 02/26/17 at 17:00 Acetaminophen 100 ml @ 50 mls/hr Q6H PRN IVPB fever Last administered on 20:44; Admin Dose 50 MLS/HR; Start 02/28/17 at 07:30 Total Parenteral Nutrition (Tpn) 1,000 ml @ 50 mls/hr Q20H IV Last administered on 03/08/17 14:13; Admin Dose 50 MLS/HR; Start 03/02/17 at 14:00 Enoxaparin Sodium 40 mg 40 mg DAILY SC Last administered on 03/08/17 09:08; Admin Dose 40 MG; Start 03/03/17 at 09:00 Vancomycin HCl 750 mg/Sodium Chloride 150 ml @ 75 mls/hr Q12H IVPB Last administered on 03/08/17 15:26; Admin Dose 75 MLS/HR; Start 03/03/17 at 15:00 Propofol (Diprivan) 100 ml @ 2.787 mls/ hr Q12H IV Last administered on 16:05; Admin Dose 16.722 MLS/HR; Start 03/05/17 at 05:00 Furosemide (Lasix) 20 mg DAILY IV ; Start 03/09/17 at 09:00 Keiht Gandhi DO March 08, 2017 17:05
[2017-03-08] MEDS: FLUCONAZOLE 200 MG/NS (PMX) 100 ML IVPB SCH (17:21)
--- NOTE | 2017-03-08 17:27 | CONS ---
DATE OF ADMISSION: 02/01/2017 DATE OF CONSULTATION: 03/06/2017 ASSESSMENT AND PLAN: This gentleman is intubated and cannot participate in answering any questions. My consultation will include my conversation with patient's mother. Suggestions are PEG and trach patient as per recommendations from pulmonary medicine. However, conversation should be done with family members first. It is my understanding that parents are . I have had a conversation w leonard patient's mother and she is in agreement with the PEG and trach; however, she defers that final decision to her . I have spoken to Dr. Satya Britt and after his conversation with amparo harvey's father final decision on PEG and trach will be discussed with the rest of his family and more co ntact will be made with family members concerning consent. HISTORY OF PRESENT ILLNESS: This is an extremely ill gentleman who has failed extubation on 3 occas ions. He came in with a perforated colon with a history of Crohn's disease, hemodynamically comprom ised at that time extremely ill and was seen and examined by Dr. Kuo on 02/15/2017. Operation wa s performed with exploration of the abdomen through recent laparotomy, closure of fascia and abdomin al lavage. The patient remains in the intensive care unit still critically ill. Other issues: This patient is also status post Deena's procedure with end colostomy, multifocal pneumonia, sepsis s yndrome, malnourished, history of heavy alcohol and tobacco use per review of patient's medical arabella rds. Background has been covered, voice and participants on the patient's behalf are difficult as jeannie vance has recently given up her decision making ability and the father is now the only decision maker. The patient is intermittently able to make some decisions. It is unclear whether or not he is cogn izant enough to do so. Therefore, his understanding of his current clinical condition is unclear. Issues insofar as acceptable quality of life, strength, fears, past experiences with critical medica l issue cannot be addressed at all with this gentleman at this time and family member meeting will b e scheduled to assess their understanding. We will follow up with a more extensive note after zack medrano family conference. There are no pain issues to address at this time or ethical issues at this p oint. Dictated By: ZAK HEARN MD, LP/YAN Conf#: [id number] [facility]#: [id number]
[2017-03-08] MEDS ORDERED: MAGNESIUM SULFATE 2 GM/50 ML 50 ML IVPB ONE (17:30)
--- NOTE | 2017-03-08 18:57 | CONS ---
DATE OF ADMISSION: 02/01/2017 DATE OF CONSULTATION: HISTORY OF PRESENT ILLNESS: Dale Frye is a 46-year-old gentleman recently admitted for intestinal perforation. He underwent emergent sigmoid resection with colostomy. He has had issues with being extubated and has failed multiple times. On a recent MRI done 03/05/2017 there was some mild bilate ral mastoiditis as well as mild left frontal and ethmoid inflammation as well as moderate left maxil nicolette sinusitis. The right side was completely clear with regards to the sinuses. There was a sam rn that could be causing an issue. As far as antibiotics he is on: 1. Meropenem. 2. Vancomycin. 3. Fluconazole. PAST MEDICAL HISTORY: Crohn's disease. PAST SURGICAL HISTORY: His above noted recent abdominal surgery as well as left knee meniscal tear repair. ALLERGIES: NO KNOWN DRUG ALLERGIES. MEDICATIONS: List was reviewed. SOCIAL HISTORY: Positive for one-half pack per day tobacco use. Negative for alcohol or drug abuse . FAMILY HISTORY: Negative for any heart, lung, kidney failure, liver disease. REVIEW OF SYSTEMS: A 12-point review of systems otherwise noncontributory. PHYSICAL EXAMINATION: Today, his septum is anteriorly deviated to the left. There is no mucosal ed pavel or erythema. Bilateral nasal endoscopy was performed. On the right side there was no evidence of purulent secretions, polyps or active bacterial infection. In fact, it was a fairly normal exam. The nasopharynx is clear. There is no significant drainage from the middle meatus on the left laura e; however, the septum does deviate moderately and is touching the lateral nasal wall. There is; ho wever, some edema there so that can contribute to the contact. With that being said the region of t he middle meatus shows minimal edema and no significant drainage whatsoever. The oral cavity and or opharynx shows that he is intubated but no lesions are seen. Neck reveals no lymphadenopathy or thyr omegaly. His trachea is midline. His parotid and submandibular glands without lesion. IMPRESSION: 1. Chronic sinusitis. 2. Respiratory failure. 3. Chronic mastoiditis. PLAN: I do not believe his disease seen on the MRI significant. I suspected it could be due to recent NG tube use as it was purely unilateral and there was no significant evidence of disease o n nasal endoscopy. If there are any questions or concerns, please feel free to reconsult at any time . Dictated By: CAMDEN MICHEL/YAN Conf#: [id number] DID#: [id number]
[2017-03-09] VITALS (39 sets, daily range): BP systolic 104–146; BP diastolic 73–107; PULSE 84–94; RESP 15–22
[2017-03-09] MEDS: IPRATROPIUM (HFA) 12.9 GM INHALER INH SCH ×4 (01:18→19:23)
[2017-03-09] MEDS: ALBUTEROL 18 GM INHALER INH SCH ×4 (01:18→19:22)
[2017-03-09] MEDS: ACETYLCYSTEINE 20% 4 ML VIAL NEB SCH ×4 (01:18→19:22)
--- NOTE | 2017-03-09 01:36 | CONS ---
DATE OF ADMISSION: 02/01/2017 DATE OF CONSULTATION: 03/08/2017 HISTORY OF PRESENT ILLNESS: The patient is a 46-year-old gentleman who was admitted to the hospital on 02/01/2017 with perforated colon. He has history of Crohn disease. His ongoing problems includ e failed extubation on 3 occasions. Currently family is considering trach and PEG placement. Statu s post Deena procedure. He has severe sepsis, congestive heart failure, anemia, pneumonia. He h ad MRI of the brain a few days ago, which shows absence of acute abnormality, though moderate sinusi tis was seen. Chest x-ray: Atelectasis, bilateral pleural effusion. Lab shows WBC count 12.9, hem oglobin 7.3, hematocrit 23.2, platelets 492, 80% neutrophils. Chemistry: Normal basic metabolic pa db. Alkaline phosphatase 127, albumin 2.2. Normal PT, PTT 39. SOCIAL HISTORY: According to the chart, previous history of heavy alcohol and tobacco use. CURRENT MEDICATIONS: 1. Propofol. 2. Lovenox. 3. Total parenteral nutrition. 4. Fluconazole. 5. Meropenem. 6. Vancomycin. 7. Different p.r.n. ALLERGIES: NONE. FAMILY HISTORY: Not contributory. REVIEW OF SYSTEMS: Unable to obtain. PHYSICAL EXAMINATION: VITAL SIGNS: Temperature 99.1, pulse 84, respirations 16, 118/79 blood pressure. GENERAL: He is in no acute distress, lying in bed, intubated orally, somewhat emaciated gentleman. NECK: Supple. LUNGS: Coarse breath sounds bilaterally. CARDIAC: Normal rhythm and sounds. ABDOMEN: Soft. Not distended. EXTREMITIES: No clubbing, cyanosis, or edema. NEUROLOGIC: The patient was lethargic, but was easily arousable by voice. Looks bilaterally. Foll ows simple commands. Was able to close his eyes 2 times. I asked him to show me 2 fingers on the l eft hand. He initially showed me on the right. When I repeated left hand, he did show me 2 fingers on the left hand. He was moving extremities on request. Present response to visual threat bilater ally. Pupils reacted from 3 to 2 mm bilaterally. Extraocular movements intact without nystagmus. Symmetrical face. Preserved facial strength and sensation. Tongue is in the midline. Palate eleva sarai symmetrically. Motor strength examination seemed to be limited, but the patient is able to move all extremities, at least minimally. In lower extremities, against gravity, at least 3-/5. Upper extremities seem to be better. He is in ____ strength, so approximately strength is at least 3+ or 4 in the sweater operator. The patient withdraws to minimal noxious stimulation. Deep tendon reflexes are 2+ t hroughout. Downgoing toes bilaterally. Coordination was not checked. IMPRESSION: Encephalopathy, likely due to multiple ongoing medical problems. Mental status examina tion is limited, apparently because patient is intubated, but he was arousable and was able to follo w commands. I would recommend to continue current treatment. His generalized weakness related to prolonged ICU stay. Continue current treatment. Thank you very much for this interesting consultation. Dictated By: FRANCIS GUEVARA/YAN Conf#: [id number] DID#: [id number]
[2017-03-09] MEDS: PROPOFOL 100 ML IV SCH ×2 (03:45→08:43)
[2017-03-09] MEDS: VANCOMYCIN 750 MG in SOD CHLORIDE 0.9% 150 ML IVPB SCH ×2 (03:45→15:51)
[2017-03-09 05:47] LABS: MAGNESIUM 2.1 mg/dl (1.7-2.5)
[2017-03-09 06:04] LABS: CREATININE 0.53 mg/dl (0.61-1.24)
[2017-03-09 06:05] LABS: CALCIUM 8.7 mg/dl (8.4-10.2)
[2017-03-09] MEDS: TPN 1,000 ML IV SCH (06:22)
[2017-03-09] MEDS: PANTOPRAZOLE 40 MG INJ IV SCH (06:22)
[2017-03-09] MEDS: MEROPENEM 1 GM/100 ML (PMX) 100 ML IVPB SCH ×3 (06:22→21:30)
--- NOTE | 2017-03-09 07:05 | PN ---
Date/Time of Note Date/Time of Note DATE: 03/09/17 TIME: 07:05 Assessment/Plan Lines/Catheters IV Catheter Type (from Nrsg): PICC Line Zeng in Place (from Nrsg): Yes Assessment/Plan Assessment/Plan [facility] Progress Note Date of Service: 03/09/17 Today's Impression & Plan: Overall stable on the vent. Abd remains benign. Wound healing well. No indication for acute surgical intervention. Remains high risk for complication given perforated colon in the setting of uncontrolled Crohn's. Recovery will take extra time with likely need for rehab. With above assessment, I've recommended the following for today: 1. Cont current cares in ICU 2. F/u on cultures 3. Cont TPN (goal should be about 1800 to 2000 kCal per day) 4. Pulmonary toilet 5. Cont gentle diuresis to BMP < 200 6. Social work and case management to please start working on possible rehab vs. home health nurse set up 7. Increase activity 8. Increase ICS 9. Wean off broad spec antimicrobials 10. Labs in am 11. Cont current wound care with wound vac 12. F/u on hematology w/u 13. Continue prophylactic anticoagulation (no contraindication from surgical standpoint) 14. Set up for family meeting to hopefully gain total consensus on the care plan (tentatively set up for am; agree it would be beneficial to do the Trach and PEG sooner than later). 15. Track and PEG at this point are necessary and should be planned once we have permission from patient's decision maker(s) Thank you again for your great care of this very pleasant patient and wonderful family. If there are any questions, please feel free to call me at [phone]. TOTAL VISIT TIME: 20 minutes of which more than half was spent in [id number] discussion with the patient, possibly including family, as well as coordination of care between multiple physicians and providers. Disclaimer: Inadvertent spelling or grammatical errors are likely due to EHR/ dictation software use and do not reflect on the overall quality of patient care. Updated Clinical Summary: A very pleasant 46-year-old gentleman with history of Crohn's disease as well as prior surgery for anal fistula approximately 5 years ago, and a torn meniscus repair on the left knee, presenting with abdominal pain associated with a few weeks' duration of diarrhea. S/p an otherwise uncomplicated diagnostic laparoscopy was converted first to hand assist and then to open exploration when perforated sigmoid colon was found and it was resected with a Deena type procedure and end colostomy as well as core needle liver biopsy, segment 5, due to presence of fatty liver disease, lysis of adhesions, and abdominal lavage on 02/01/17. Failed to wean off the vent through 02/06/17. PE was evaluated 02/07/[address] angio and no evidence found. CT abd/pelvis also did not show actionable findings (no abscess; bowel thickening somewhat expected). Extubated 02/07/17. RETAIL LINK ANALYST called early am 02/13/17 with a few minutes coding, requiring intubation and transfer to ICU. Fortunately, mentally appears to be intact and not on pressors. Lactic acid and CO2 normal with benign appearing abd and viable ostomy. Complicated by fascia dehiscence. S/p exploration of abdomen through recent laparotomy, primary closure of fascia and abdominal lavage on 02/15/17. Reintubated 02/25/17 for bronchoscopy to remove mucus plug. Extubated 02/28/17. Re-intubated 03/05/17 due to respiratory failure and hypoxia. 03/05/17: HIV negative and hepatitis B&C neg. Brain MRI did not contribute to the diagnosis, but no mass effect, obvious hemorrhage or other explanatory findings. COMORBIDITIES: 1. Crohn disease with perforation of sigmoid colon and sepsis. S/p an otherwise uncomplicated diagnostic laparoscopy was converted first to hand assist and then to open exploration when perforated sigmoid colon was found and it was resected with a Deena type procedure and end colostomy as well as core needle liver biopsy, segment 5, due to presence of fatty liver disease, lysis of adhesions, and abdominal lavage on 02/01/17. Complicated by respiratory failure, return trip to ICU and fascia dehiscence. S/p exploration of abdomen through recent laparotomy, primary closure of fascia and abdominal lavage on 02/15. 2. Repair of a fistula approximately 5 years ago. 3. Torn meniscus on the left knee status post repair. Subjective: No major events or complications; remains on the vent; seems reasonably interactive; difficult to clearly communicate with him with the vent, but does not seem to indicate any abdominal pain, SOB, CP or nausea Objective: Vitals: See below Exam: GENERAL: On exam, the patient was laying in bed and appeared to be comfortable and in no acute distress. Intubated and on the vent. Eyes open and responds to voice. ABDOMEN: Soft, nontender and nondistended. Incision wound vac dressings dc'd and incisions are clean without any evidence of obvious erythema, edema, discharge, or hernia. Nice beefy red granulation tissue in the bed. Wound vac with no sig drainage. Surgery drain site clean. Ostomy pink and viable; some air and stool in the bag. There are no peritoneal signs or guarding. SKIN: Skin appears to be pink and feels warm to touch. NEUROLOGIC: Patient's eyes open and responds to voice. and follows simple commands appropriately. Exam/Review of Systems Vital Signs Vitals Vital Signs Date Time Temp Pulse Resp B/P Pulse Ox O2 Delivery O2 Flow Rate FiO2 03/09/17 05:37 85 18 100 40 03/09/17 01:00 119/75 Mechanical Ventilator 03/09/17 00:00 99.3 Intake and Output 03/08/17 03/08/17 03/09/17 15:00 23:00 07:00 Intake Total 636 ml 560.16 ml Output Total 925 ml 495 ml Balance -289 ml 65.16 ml Results Result Diagram: 03/08/17 0426 03/09/17 0400 TI HILTON M.D. March 09, 2017 07:05
[2017-03-09] MEDS: FUROSEMIDE 20 MG INJ IV SCH (08:43)
[2017-03-09] MEDS: ENOXAPARIN 40 MG/0.4 ML SYG SC SCH (08:44)
--- NOTE | 2017-03-09 10:54 | PN ---
Date/Time of Note Date/Time of Note DATE: 03/09/17 TIME: 10:50 Assessment/Plan VTE Prophylaxis VTE Prophylaxis Intervention: LMWH Lines/Catheters IV Catheter Type (from Nrs): PICC Line Central line still needed: Yes Urinary Cath still in place: Yes Reason Cath still needed: urinary retention Assessment/Plan Chief Complaint/Hosp Course Assessment/Plan: 46M with: 1. Perforated sigmoid colon 2/2 Severe Crohn's colitis * S/p Urgent Open Cronin's procedure with end colostomy, liver biopsy and abdominal lavage 02/01/17P * S/p post operative paracolic abscess drained via CT 02/14/[address] * S/p Exploration of abdomen through recent laparotomy site with closure of fascia done 02/15/17 for Fascia dehiscence 2. Recurrent Resp failure: Extubated then reintubated 02/13, extubated, then reintubated 02/25/17, then extubated 02/27 and reintubated 03/04 * Status post bronchoscopy with clearance of extensive secretions in the left mainstem bronchus with improved aeration radiographically 02/25 * Pulm concerned about possible neuromuscular injury contributing to recurrent resp failure - for trach placement today - f/u rec's 3. Exacerbation of Crohn's disease with acute colitis and diarrhea Cultures earlier were growing ecoli / proteus / enterococcus 4. Multifocal PNA + Mook Pleural effusions - Effusions likely hydrostatic from hypoalbuminemia. + fevers - monitor, ID managing abx and antifungal 5. Severe Sepsis with lactic acidosis 2/2 severe colitis / PNA - Continue abx per ID 6. S/p Systemic shock (hypovolemic +septic) - again, see # 5, abx: Resolved 7. TPN therapy for low prealbumin: monitor 8. Hx of heavy alcohol and tobacco use just until admission - monitor 9. Probable underlying COPD and Cirrhosis based on hx which explains hypoalbuminemia and anasarca - monitor 10. Severe recurrent anemia likely 2/2 occult blood loss from multiple sources : PRN transfusions 11. Hypomagnesemia - replete as needed 12. Encephalopathy / Confusion : patient may have suffered some anoxic brain insult during the course of his hospitalization. Appreciate Neuro consult - likely multifactorial. Also MRI concerning for possible ostiomeatal unit obstruction / appreciate ENT input on this - continue current tx for now. Dispo: Due to recurrent respiratory failure, (third reintubation ) and vent dependence, for tracheostomy placement today Palliative care consultation for the family in making decision On TPN now, may need special or different type of PEG placement as well by IR - discuss with GI about this Continue all other ICU supportive care CRITICAL CARE TIME: 45 mins Problems: Subjective 24 Hr Interval Summary Free Text/Dictation Pt awaiting trach placement today. On TPN. Exam/Review of Systems Vital Signs Vitals Vital Signs Date Time Temp Pulse Resp B/P Pulse Ox O2 Delivery O2 Flow Rate FiO2 03/09/17 09:09 88 17 100 40 03/09/17 07:00 125/87 Mechanical Ventilator 03/09/17 04:00 99.7 Intake and Output 03/08/17 03/08/17 03/09/17 15:00 23:00 07:00 Intake Total 636 ml 560.16 ml 767.72 ml Output Total 925 ml 495 ml 325 ml Balance -289 ml 65.16 ml 442.72 ml Exam Constitutional: intubated, comfortable on vent Head: normocephalic Eyes: PERRL, icteric ENMT: Intubated Respiratory: some diminished breath sounds, No wheezing Cardiovascular: regular rate and rhythm, No murmurs/extra sounds Gastrointestinal: other (midline surgical dressing with wound vac / L sided colostomy and drain / colostomy has dark green fluidy stool), soft otherwise Genitourinary - Male: other (significant scrotal and penile edema) Musculoskeletal: swelling (generalized severe anasarca) Extremities: pitting pedal edema Neurological: intubated Results Result Diagram: 03/08/17 0426 03/09/17 0400 Results 24 hrs Laboratory Tests Test 03/09/17 04:00 Sodium Level 136 Potassium Level 4.0 Chloride Level 97 Carbon Dioxide Level 28 Anion Gap 15 Blood Urea Nitrogen 16 Creatinine 0.53 L Glucose Level 96 Calcium Level 8.7 Phosphorus Level 4.0 Magnesium Level 2.1 Medications Medications Current Medications Pantoprazole (Protonix Iv) 40 mg DAILY@06 IV Last administered on 03/09/17 06: 22; Admin Dose 40 MG; Start 02/01/17 at 06:00 Acetaminophen/ Hydrocodone Bitart ([place] (5/325)) 1 tab Q4H PRN PO PAIN LEVEL 4 -7 Last administered on 02/09/17 18:48; Admin Dose 1 TAB; Start 02/01/17 at 20: 30 Acetaminophen/ Hydrocodone Bitart ([place] (5/325)) 2 tab Q4H PRN PO PAIN LEVEL 7 -10; Start 02/01/17 at 20:30 Bisacodyl (Dulcolax Supp) 10 mg BID PRN [place] CONSTIPATION; Start 02/01/17 at 20: 30 Sodium Biphosphate/ Sodium Phosphate (Fleet Enema) 133 ml BID PRN [place] CONSTIPATION; Start 02/01/17 at 20:30 Acetaminophen (Tylenol Liquid) 650 mg Q4H PRN GTB PAIN AND OR ELEVATED TEMP Last administered on 02/27/17 12:37; Admin Dose 650 MG; Start 02/05/17 at 18:30 IV Flush (NS 10 ml) 10 ml PRN PRN IV IV PROTOCOL; Start 02/07/17 at 14:30 Diphenhydramine HCl 25 mg 25 mg Q6H PRN IV itching Last administered on 00:00; Admin Dose 25 MG; Start 02/07/17 at 20:00 Ondansetron HCl/ Sodium Chloride (Zofran Inj/NS) 54 ml @ 216 mls/hr Q6H PRN IV NAUSEA AND/OR VOMITING; Start 02/09/17 at 11:30 Lorazepam (Ativan) 1 mg Q1HWA PRN IM AGITATION/ANXIETY; Start 02/10/17 at 19:00 Trimethobenzamide HCl (Tigan) 200 mg Q6H PRN IM NAUSEA AND/OR VOMITING; Start 02/10/17 at 19:30 Morphine Sulfate (morphine) 2 mg Q4H PRN IV pain Last administered on 12:22; Admin Dose 2 MG; Start 02/20/17 at 18:30 Docusate Sodium 100 mg 100 mg QHS PRN NGT For Constipation; Start 02/25/17 at 21:00 Meropenem 100 ml @ 200 mls/hr Q8 IVPB Last administered on 03/09/17 06:22; Admin Dose 200 MLS/HR; Start 02/26/17 at 14:00 Fluconazole 100 ml @ 100 mls/hr Q24H IVPB Last administered on 03/08/17 17:21 ; Admin Dose 100 MLS/HR; Start 02/26/17 at 17:00 Acetaminophen 100 ml @ 50 mls/hr Q6H PRN IVPB fever Last administered on 20:44; Admin Dose 50 MLS/HR; Start 02/28/17 at 07:30 Total Parenteral Nutrition (Tpn) 1,000 ml @ 50 mls/hr Q20H IV Last administered on 03/09/17 06:22; Admin Dose 50 MLS/HR; Start 03/02/17 at 14:00 Enoxaparin Sodium 40 mg 40 mg DAILY SC Last administered on 03/08/17 09:08; Admin Dose 40 MG; Start 03/03/17 at 09:00 Vancomycin HCl 750 mg/Sodium Chloride 150 ml @ 75 mls/hr Q12H IVPB Last administered on 03/09/17 03:45; Admin Dose 75 MLS/HR; Start 03/03/17 at 15:00 Propofol (Diprivan) 100 ml @ 1.869 mls/ hr Q12H IV Last administered on 08:43; Admin Dose 13.083 MLS/HR; Start 03/05/17 at 05:00 Furosemide (Lasix) 20 mg DAILY IV Last administered on 03/09/17 08:43; Admin Dose 20 MG; Start 03/09/17 at 09:00 Miscellaneous Information (*Rx Drug Level Order Reminder*) 1 ONCE ONCE XX ; Start 03/09/17 at 14:00; Stop 03/09/17 at 14:01 SUSAN SANCHEZ March 09, 2017 10:54
--- NOTE | 2017-03-09 11:01 | CONS ---
Date/Time of Note Date/Time of Note DATE: 03/09/17 TIME: 10:58 Consult Date/Type/Reason Admit Date/Time Feb 01, 2017 at 03:10 Type of Consultation: Pulmonary ICU Ordering Provider: VINCE PADGETT Subjective Patient remains intubated on mechanical ventilation Objective Vital Signs Date Time Temp Pulse Resp B/P Pulse Ox O2 Delivery O2 Flow Rate FiO2 03/09/17 09:09 88 17 100 40 03/09/17 07:00 125/87 Mechanical Ventilator 03/09/17 04:00 99.7 Intake and Output 03/08/17 03/08/17 03/09/17 15:00 23:00 07:00 Intake Total 636 ml 560.16 ml 767.72 ml Output Total 925 ml 495 ml 325 ml Balance -289 ml 65.16 ml 442.72 ml Exam PHYSICAL EXAMINATION GENERAL: Chronically ill-appearing gentleman, intubated on mechanical ventilation, opens eyes. VITAL SIGNS: see below. HEENT: Pupils equal, round, and reactive to light. CARDIAC: S1, S2, 1/6 systolic ejection murmur CHEST: Diminished air entry bilaterally. ABDOMEN: Mildly distended. Bowel sounds present no guarding or rebound EXTREMITIES: No cyanosis, clubbing edema +1 NEUROLOGIC: Generalized weakness Results/Medications Result Diagram: 03/08/17 0426 03/09/17 0400 Results 24 hrs Laboratory Tests Test 03/09/17 04:00 Sodium Level 136 Potassium Level 4.0 Chloride Level 97 Carbon Dioxide Level 28 Anion Gap 15 Blood Urea Nitrogen 16 Creatinine 0.53 L Glucose Level 96 Calcium Level 8.7 Phosphorus Level 4.0 Magnesium Level 2.1 Medications Current Medications Pantoprazole (Protonix Iv) 40 mg DAILY@06 IV Last administered on 03/09/17 06: 22; Admin Dose 40 MG; Start 02/01/17 at 06:00 Acetaminophen/ Hydrocodone Bitart ([place] (5/325)) 1 tab Q4H PRN PO PAIN LEVEL 4 -7 Last administered on 02/09/17 18:48; Admin Dose 1 TAB; Start 02/01/17 at 20: 30 Acetaminophen/ Hydrocodone Bitart ([place] (5/325)) 2 tab Q4H PRN PO PAIN LEVEL 7 -10; Start 02/01/17 at 20:30 Bisacodyl (Dulcolax Supp) 10 mg BID PRN [place] CONSTIPATION; Start 02/01/17 at 20: 30 Sodium Biphosphate/ Sodium Phosphate (Fleet Enema) 133 ml BID PRN [place] CONSTIPATION; Start 02/01/17 at 20:30 Acetaminophen (Tylenol Liquid) 650 mg Q4H PRN GTB PAIN AND OR ELEVATED TEMP Last administered on 02/27/17 12:37; Admin Dose 650 MG; Start 02/05/17 at 18:30 IV Flush (NS 10 ml) 10 ml PRN PRN IV IV PROTOCOL; Start 02/07/17 at 14:30 Diphenhydramine HCl 25 mg 25 mg Q6H PRN IV itching Last administered on 00:00; Admin Dose 25 MG; Start 02/07/17 at 20:00 Ondansetron HCl/ Sodium Chloride (Zofran Inj/NS) 54 ml @ 216 mls/hr Q6H PRN IV NAUSEA AND/OR VOMITING; Start 02/09/17 at 11:30 Lorazepam (Ativan) 1 mg Q1HWA PRN IM AGITATION/ANXIETY; Start 02/10/17 at 19:00 Trimethobenzamide HCl (Tigan) 200 mg Q6H PRN IM NAUSEA AND/OR VOMITING; Start 02/10/17 at 19:30 Morphine Sulfate (morphine) 2 mg Q4H PRN IV pain Last administered on 12:22; Admin Dose 2 MG; Start 02/20/17 at 18:30 Docusate Sodium 100 mg 100 mg QHS PRN NGT For Constipation; Start 02/25/17 at 21:00 Meropenem 100 ml @ 200 mls/hr Q8 IVPB Last administered on 03/09/17 06:22; Admin Dose 200 MLS/HR; Start 02/26/17 at 14:00 Fluconazole 100 ml @ 100 mls/hr Q24H IVPB Last administered on 03/08/17 17:21 ; Admin Dose 100 MLS/HR; Start 02/26/17 at 17:00 Acetaminophen 100 ml @ 50 mls/hr Q6H PRN IVPB fever Last administered on 20:44; Admin Dose 50 MLS/HR; Start 02/28/17 at 07:30 Total Parenteral Nutrition (Tpn) 1,000 ml @ 50 mls/hr Q20H IV Last administered on 03/09/17 06:22; Admin Dose 50 MLS/HR; Start 03/02/17 at 14:00 Enoxaparin Sodium 40 mg 40 mg DAILY SC Last administered on 03/08/17 09:08; Admin Dose 40 MG; Start 03/03/17 at 09:00 Vancomycin HCl 750 mg/Sodium Chloride 150 ml @ 75 mls/hr Q12H IVPB Last administered on 03/09/17 03:45; Admin Dose 75 MLS/HR; Start 03/03/17 at 15:00 Propofol (Diprivan) 100 ml @ 1.869 mls/ hr Q12H IV Last administered on 08:43; Admin Dose 13.083 MLS/HR; Start 03/05/17 at 05:00 Furosemide (Lasix) 20 mg DAILY IV Last administered on 03/09/17 08:43; Admin Dose 20 MG; Start 03/09/17 at 09:00 Miscellaneous Information (*Rx Drug Level Order Reminder*) 1 ONCE ONCE XX ; Start 03/09/17 at 14:00; Stop 03/09/17 at 14:01 Assessment/Plan Chief Complaint/Hosp Course Assessment 1. Crohn's disease with perforation of sigmoid colon and sepsis status post arthroscopic sigmoid colectomy and end colostomy with lysis of adhesions 2. Resolved metabolic acidosis with septic shock 3. Improved electrolyte imbalance 4. Hypoxemic respiratory failure mucus plugging left mainstem bronchus status post intubation and bronchoscopy 5. Thrombocytopenia resolved, likely underlying pneumonia 6. Anemia worsening hemoglobin no active GI bleeding stool guaiac negative questionable retroperitoneal bleed 7. Encephalopathy likely toxic metabolic 8. Likely critical illness neuropathy Plan 1. Continue mechanical ventilation pending tracheostomy following family conference 2. Repeat chest x-ray to evaluate for pleural effusion 3. Continue surgical wound care discussed with , CT abdomen if hemoglobin continues to drop 4. Continue broad-spectrum antibiotic coverage 5. DVT GI prophylaxis 6. Continue tube feeding as tolerated, okay for PEG tube according to general surgery Disposition Family conference scheduled for this Problems: RAMON DOUGLAS MD, FCCP March 09, 2017 11:01
[2017-03-09] MEDS ORDERED: LIDOCAINE 0.5%/EPI (MDV) 50 ML INJ ONE (11:11)
[2017-03-09] MEDS ORDERED: LIDOCAINE 2% (SDV) 5 ML INJ ONE (11:39)
[2017-03-09] MEDS ORDERED: ROCURONIUM 50 MG INJ ONE (11:39)
[2017-03-09] MEDS ORDERED: NEOSTIGMINE 3 MG/3 ML SYRINGE ONE (11:39)
[2017-03-09] MEDS ORDERED: MIDAZOLAM 1 MG/ML 2 ML INJ ONE (11:39)
[2017-03-09] MEDS ORDERED: PROPOFOL 20 ML ONE (11:39)
[2017-03-09] MEDS ORDERED: GLYCOPYRROLATE 0.4 MG INJ ONE (11:39)
[2017-03-09] MEDS ORDERED: FENTAnyl 50 MCG/ML VIAL ONE (11:39)
--- NOTE | 2017-03-09 12:08 | OPR ---
Date/Time of Note Date/Time of Note DATE: 03/09/17 TIME: 12:08 Operative Report Preoperative Diagnosis Resp Failure Postoperative Diagnosis same Operation Performed Tracheostomy Surgeon: ROMAN OROZCO MD Anesthesia: general Complications: None Pt Condition Post Procedure: critical ROMAN OROZCO MD March 09, 2017 12:08
[2017-03-09] MEDS: FLUCONAZOLE 200 MG/NS (PMX) 100 ML IVPB SCH (17:26)
--- NOTE | 2017-03-09 18:59 | OPR ---
DATE OF OPERATION: PREOPERATIVE DIAGNOSIS: Respiratory failure. POSTOPERATIVE DIAGNOSIS: Respiratory failure. PROCEDURE PERFORMED: Tracheostomy. SURGEON: Roman Gamboa MD ANESTHESIA: General. CONSENT: Risks, benefits, complications, and alternative therapies explained to the patient and the family, consent obtained. OPERATIVE TECHNIQUE: The patient was placed in supine position, prepped and draped in usual sterile fashion. Lidocaine 1% was used throughout the operation for local anesthesia. A 2 cm incision was made, 1 fingerbreadth superior to the sternal notch in a horizontal fashion. Incision was taken do wn to the subcutaneous tissue which was then opened using electrocautery. Access was gained into th e trachea. Guidewire was advanced through without any difficulty. Subcutaneous tissues were dilate d using progressively larger dilators. Endotracheal tube was removed and an 8 cuffed tracheostomy t ube advanced into the trachea, secured to the skin using silk sutures and a trach tie. The patient tolerated the procedure well. Dictated By: ROMAN BOWLING/YAN Conf#: [id number] DID#: [id number]
--- NOTE | 2017-03-09 19:00 | PN ---
DATE: 03/09/2017 SUBJECTIVE: Infectious disease progress note. No acute changes. No fevers. The patient is intuba ryder, lying comfortably in bed. No labs this morning. ANTIMICROBIALS: Remains on: 1. Vancomycin. 2. Meropenem. 3. Fluconazole. MICROBIOLOGY: Bronchoalveolar lavage on 02/25/2017 grew yeast. INDWELLINGS: Endotracheal tube, Zeng. PICC line placed on 03/01/2017. PHYSICAL EXAMINATION: GENERAL: This is a chronically ill-appearing, middle-aged man who is in no distress. HEENT: Head atraumatic, normocephalic. Sclerae anicteric. Buccal mucosa dry. NECK: Supple, trachea midline. CHEST: Rise symmetrical. Breath sounds diminished to bases. HEART: S1, S2. ABDOMEN: Soft, bowel tones present. EXTREMITIES: Without cyanosis. ASSESSMENT: 1. Acute respiratory failure, failed multiple extubations, pending PEG and tracheostomy today. 2. Status post pneumonia. 3. Crohn disease. 4. Status post perforated viscus repair. 5. Anemia. 6. History of ETOH. 7. Intraabdominal abscess per CT of the abdomen on 02/28/2017, too small to be drained. PLAN: The patient remains stable. Continue present care, antibiotics, pending trach and PEG. El ow surgical recommendations. Dictated By: THOMAS ELLIS MOLD FILLER AND DRAINER for MICKY RAMÍREZ/YAN Conf#: [id number] DID#: [id number]
[2017-03-10] VITALS (37 sets, daily range): BP systolic 114–137; BP diastolic 72–96; PULSE 85–97; RESP 14–26
[2017-03-10] MEDS: ACETYLCYSTEINE 20% 4 ML VIAL NEB SCH ×4 (01:05→19:26)
[2017-03-10] MEDS: IPRATROPIUM (HFA) 12.9 GM INHALER INH SCH ×4 (01:05→19:26)
[2017-03-10] MEDS: ALBUTEROL 18 GM INHALER INH SCH ×4 (01:05→19:26)
[2017-03-10] MEDS: TPN 1,000 ML IV SCH ×2 (01:31→22:02)
[2017-03-10] MEDS: VANCOMYCIN 750 MG in SOD CHLORIDE 0.9% 150 ML IVPB SCH ×2 (03:01→16:58)
[2017-03-10 04:59] LABS: ADD SCAN DIFF NO
[2017-03-10 05:09] LABS: BASOPHIL # 0.1 10^3/ul (0.0-0.1); BASOPHILS % 0.5 % (0.0-2.0); EOSINOPHILS # 0.5 10^3/ul (0.0-0.5); EOSINOPHILS % 4.1 % (0.0-7.0); HEMATOCRIT 23.8 % (42.0-52.0); HEMOGLOBIN 7.3 g/dl (14.0-18.0); LYMPHOCYTES # 0.8 10^3/ul (0.8-2.9); LYMPHOCYTES % 6.4 % (15.0-51.0); MEAN CORPUSCULAR HEMOGLOBIN 27.3 pg (29.0-33.0); MEAN CORPUSCULAR HGB CONC 30.7 g/dl (32.0-37.0); MEAN CORPUSCULAR VOLUME 89.1 fl (82.0-101.0); MEAN PLATELET VOLUME 11.3 fl (7.4-10.4); MONOCYTE # 1.2 10^3/ul (0.3-0.9); MONOCYTES % 9.3 % (0.0-11.0); NEUTROPHIL # 9.7 10^3/ul (1.6-7.5); NEUTROPHILS % 77.5 % (39.0-77.0); PLATELET COUNT 492 10^3/UL (140-415); RED BLOOD COUNT 2.67 10^6/ul (4.70-6.10); RED CELL DISTRIBUTION WIDTH 15.4 % (11.5-14.5); WHITE BLOOD COUNT 12.5 10^3/ul (4.8-10.8)
[2017-03-10 05:26] LABS: CREATININE 0.47 mg/dl (0.61-1.24)
[2017-03-10 05:27] LABS: CALCIUM 8.5 mg/dl (8.4-10.2); MAGNESIUM 1.6 mg/dl (1.7-2.5)
[2017-03-10] MEDS: PANTOPRAZOLE 40 MG INJ IV SCH (06:03)
[2017-03-10] MEDS: MEROPENEM 1 GM/100 ML (PMX) 100 ML IVPB SCH ×3 (06:03→22:03)
[2017-03-10 08:14] LABS: AADO2 Arterial 114.8 mmHg (7.0-24.0); Allen Test ACCEPTAB; Arterial Base Excess 3.6 mmol/L (-3.0-3); Arterial COHb 0.3 % (0.0-3.0); Arterial Fraction of Oxyhgb 97.4 % (93.0-99.0); Arterial HCO3 27.4 mmol/L (22.0-26.0); Arterial MetHb 0.5 % (0.0-1.5); Arterial Total Hemglobin 11.3 g/dl (12.0-18.0); MODE VENT - AC
--- NOTE | 2017-03-10 09:56 | RADRPT ---
PROCEDURE: Chest Radiograph. CLINICAL INDICATION: Pneumonia. CHF. TECHNIQUE: Single frontal chest radiograph. COMPARISON: Chest radiograph 03/07/2017 FINDINGS: There has been interval removal of endotracheal tube and placement of tracheostomy tube. A right up per extremity PICC remains in place with distal tip in the region of the cavoatrial junction. Heart size is within normal limits . There are small bilateral pleural effusions with adjacent atelectas is. There is no pneumothorax. IMPRESSION: 1. Interval removal of endotracheal tube and placement of tracheostomy tube. Stable right upper ex tremity PICC. 2. Small bilateral pleural effusions with adjacent atelectasis/infiltrate. RPTAT: KK .Patrick Rodriguez MD, MD Date Time Electronically viewed and signed by .Patrick Rodriguez MD, on 03/10/2017 09:56 .B/
[2017-03-10] MEDS: FUROSEMIDE 20 MG INJ IV SCH (10:06)
[2017-03-10] MEDS: ENOXAPARIN 40 MG/0.4 ML SYG SC SCH (10:07)
--- NOTE | 2017-03-10 10:25 | PN ---
Date/Time of Note Date/Time of Note DATE: 03/10/17 TIME: 10:23 Assessment/Plan VTE Prophylaxis VTE Prophylaxis Intervention: LMWH Lines/Catheters IV Catheter Type (from Nrs): PICC Line Central line still needed: Yes Urinary Cath still in place: Yes Reason Cath still needed: urinary retention Assessment/Plan Chief Complaint/Hosp Course Assessment/Plan: 46M with: 1. Perforated sigmoid colon 2/2 Severe Crohn's colitis * S/p Urgent Open Cronin's procedure with end colostomy, liver biopsy and abdominal lavage 02/01/17P * S/p post operative paracolic abscess drained via CT 02/14/[address] * S/p Exploration of abdomen through recent laparotomy site with closure of fascia done 02/15/17 for Fascia dehiscence 2. Recurrent Resp failure: Extubated then reintubated 02/13, extubated, then reintubated 02/25/17, then extubated 02/27 and reintubated 03/04 * Status post bronchoscopy with clearance of extensive secretions in the left mainstem bronchus with improved aeration radiographically 02/25 * Pulm concerned about possible neuromuscular injury contributing to recurrent resp failure - s/p trach placement yesterday - f/u rec's 3. Exacerbation of Crohn's disease with acute colitis and diarrhea Cultures earlier were growing ecoli / proteus / enterococcus 4. Multifocal PNA + Mook Pleural effusions - Effusions likely hydrostatic from hypoalbuminemia. + fevers - monitor, ID managing abx and antifungal 5. Severe Sepsis with lactic acidosis 2/2 severe colitis / PNA - Continue abx per ID 6. S/p Systemic shock (hypovolemic +septic) - again, see # 5, abx: Resolved 7. TPN therapy for low prealbumin: monitor 8. Hx of heavy alcohol and tobacco use just until admission - monitor 9. Probable underlying COPD and Cirrhosis based on hx which explains hypoalbuminemia and anasarca - monitor 10. Severe recurrent anemia likely 2/2 occult blood loss from multiple sources : PRN transfusions 11. Hypomagnesemia - replete as needed 12. Encephalopathy / Confusion : patient may have suffered some anoxic brain insult during the course of his hospitalization. Appreciate Neuro consult - likely multifactorial. Also MRI concerning for possible ostiomeatal unit obstruction / appreciate ENT input on this - continue current tx for now. Dispo: Palliative care consultation for the family in making decision On TPN now, may need special or different type of PEG placement as well by IR - discuss with GI about this Continue all other ICU supportive care CRITICAL CARE TIME: 45 mins Problems: Subjective 24 Hr Interval Summary Free Text/Dictation Pt had trach placed yesterday. Exam/Review of Systems Vital Signs Vitals Vital Signs Date Time Temp Pulse Resp B/P Pulse Ox O2 Delivery O2 Flow Rate FiO2 03/10/17 09:00 88 14 132/89 100 Mechanical Ventilator 03/10/17 08:00 98.9 03/10/17 07:59 40 Intake and Output 03/09/17 03/09/17 03/10/17 15:00 23:00 07:00 Intake Total 252.4 ml 1250 ml 600 ml Output Total 1350 ml 750 ml 755 ml Balance -1097.6 ml 500 ml -155 ml Exam Constitutional: sleeping Head: normocephalic Eyes: PERRL, icteric ENMT: trach in place Respiratory: some diminished breath sounds, No wheezing Cardiovascular: regular rate and rhythm, No murmurs/extra sounds Gastrointestinal: other (midline surgical dressing with wound vac / L sided colostomy and drain / colostomy has dark green fluidy stool), soft otherwise Genitourinary - Male: other (significant scrotal and penile edema) Musculoskeletal: swelling (generalized severe anasarca) Extremities: pitting pedal edema Neurological: unable to fully assess now Results Result Diagram: 03/10/17 0430 03/10/17 0430 Results 24 hrs Laboratory Tests Test 03/09/17 13:57 03/10/17 04:30 03/10/17 07:00 Vancomycin Level Trough 13.8 White Blood Count 12.5 H Red Blood Count 2.67 L Hemoglobin 7.3 L Hematocrit 23.8 L Mean Corpuscular Volume 89.1 Mean Corpuscular Hemoglobin 27.3 L Mean Corpuscular Hemoglobin Concent 30.7 L Red Cell Distribution Width 15.4 H Platelet Count 492 H Mean Platelet Volume 11.3 H Neutrophils % 77.5 H Lymphocytes % 6.4 L Monocytes % 9.3 Eosinophils % 4.1 Basophils % 0.5 Nucleated Red Blood Cells % 0.0 Neutrophils # 9.7 H Lymphocytes # 0.8 Monocytes # 1.2 H Eosinophils # 0.5 Basophils # 0.1 Nucleated Red Blood Cells # 0.0 Sodium Level 136 Potassium Level 4.0 Chloride Level 97 Carbon Dioxide Level 29 Anion Gap 14 Blood Urea Nitrogen 15 Creatinine 0.47 L Glucose Level 103 Calcium Level 8.5 Phosphorus Level 4.0 Magnesium Level 1.6 L Blood Gas Specimen Source Blood arterial Arterial Blood Date Drawn 03/10/2017 7:40:18 AM Arterial Blood pH (Temp corrected) 7.468 H Arterial Blood pCO2 (Temp correct) 38.7 Arterial Blood pO2 (Temp corrected) 125.9 H Arterial Blood HCO3 27.4 H Arterial Blood Base Excess 3.6 H Arterial Blood Oxygen Saturation 98.2 H Raffy Test ACCEPTAB Arterial Blood Gas Puncture Site Right Radial Arterial Blood Carboxyhemoglobin 0.3 Arterial Blood Methemoglobin 0.5 Blood Gas A-a O2 Differential 114.8 H Oxyhemoglobin Percent 97.4 Total Hemoglobin 11.3 L Blood Gas Temperature 37.0 Blood Gas Respiration Rate 18.0 Blood Gas Actual Respiration Rate 18 Blood Gas Modality VENT - AC FiO2 40.0 Blood Gas Tidal Volume 550.0 Blood Gas Low PEEP Setting 5.0 Blood Gas Notified Whom JLD Blood Gas Notified Time 03/10/2017 8:13:54 AM Medications Medications Current Medications Pantoprazole (Protonix Iv) 40 mg DAILY@06 IV Last administered on 03/10/17 06: 03; Admin Dose 40 MG; Start 02/01/17 at 06:00 Acetaminophen/ Hydrocodone Bitart ([place] (5/325)) 1 tab Q4H PRN PO PAIN LEVEL 4 -7 Last administered on 02/09/17 18:48; Admin Dose 1 TAB; Start 02/01/17 at 20: 30 Acetaminophen/ Hydrocodone Bitart ([place] (5/325)) 2 tab Q4H PRN PO PAIN LEVEL 7 -10; Start 02/01/17 at 20:30 Bisacodyl (Dulcolax Supp) 10 mg BID PRN [place] CONSTIPATION; Start 02/01/17 at 20: 30 Sodium Biphosphate/ Sodium Phosphate (Fleet Enema) 133 ml BID PRN [place] CONSTIPATION; Start 02/01/17 at 20:30 Acetaminophen (Tylenol Liquid) 650 mg Q4H PRN GTB PAIN AND OR ELEVATED TEMP Last administered on 02/27/17 12:37; Admin Dose 650 MG; Start 02/05/17 at 18:30 IV Flush (NS 10 ml) 10 ml PRN PRN IV IV PROTOCOL; Start 02/07/17 at 14:30 Diphenhydramine HCl 25 mg 25 mg Q6H PRN IV itching Last administered on 00:00; Admin Dose 25 MG; Start 02/07/17 at 20:00 Ondansetron HCl/ Sodium Chloride (Zofran Inj/NS) 54 ml @ 216 mls/hr Q6H PRN IV NAUSEA AND/OR VOMITING; Start 02/09/17 at 11:30 Lorazepam (Ativan) 1 mg Q1HWA PRN IM AGITATION/ANXIETY; Start 02/10/17 at 19:00 Trimethobenzamide HCl (Tigan) 200 mg Q6H PRN IM NAUSEA AND/OR VOMITING; Start 02/10/17 at 19:30 Morphine Sulfate (morphine) 2 mg Q4H PRN IV pain Last administered on 12:22; Admin Dose 2 MG; Start 02/20/17 at 18:30 Docusate Sodium 100 mg 100 mg QHS PRN NGT For Constipation; Start 02/25/17 at 21:00 Meropenem 100 ml @ 200 mls/hr Q8 IVPB Last administered on 03/10/17 06:03; Admin Dose 200 MLS/HR; Start 02/26/17 at 14:00 Fluconazole 100 ml @ 100 mls/hr Q24H IVPB Last administered on 03/09/17 17:26 ; Admin Dose 100 MLS/HR; Start 02/26/17 at 17:00 Acetaminophen 100 ml @ 50 mls/hr Q6H PRN IVPB fever Last administered on 20:44; Admin Dose 50 MLS/HR; Start 02/28/17 at 07:30 Total Parenteral Nutrition (Tpn) 1,000 ml @ 50 mls/hr Q20H IV Last administered on 03/10/17 01:31; Admin Dose 50 MLS/HR; Start 03/02/17 at 14:00 Enoxaparin Sodium 40 mg 40 mg DAILY SC Last administered on 03/10/17 10:07; Admin Dose 40 MG; Start 03/03/17 at 09:00 Vancomycin HCl 750 mg/Sodium Chloride 150 ml @ 75 mls/hr Q12H IVPB Last administered on 03/10/17 03:01; Admin Dose 75 MLS/HR; Start 03/03/17 at 15:00 Propofol (Diprivan) 100 ml @ 1.869 mls/ hr Q12H IV Last administered on 08:43; Admin Dose 13.083 MLS/HR; Start 03/05/17 at 05:00 Furosemide (Lasix) 20 mg DAILY IV Last administered on 03/10/17 10:06; Admin Dose 20 MG; Start 03/09/17 at 09:00 SUSAN SANCHEZ March 10, 2017 10:25
[2017-03-10] MEDS ORDERED: MAGNESIUM SULFATE 2 GM/50 ML 50 ML IVPB ONE (10:30)
--- NOTE | 2017-03-10 10:53 | CONS ---
Date/Time of Note Date/Time of Note DATE: 03/10/17 TIME: 10:52 Assessment/Plan Assessment/Plan Additional Assessment/Plan Perforated colon status post surgery Severe sepsis Respiratory failure-status post tracheostomy Low normal ejection fraction 50% Acute decompensated diastolic congestive heart failure Crohn's disease Acute blood loss anemia -We will continue IV Lasix as blood pressure and renal function permits and transition to p.o. once PEG tube is placed. Maintain potassium above 4.0 and magnesium above 2.0. Consultation Date/Type/Reason Admit Date/Time Feb 01, 2017 at 03:10 Initial Consult Date 02/02/17 Type of Consultation: cv Referring Provider: VINCE PADGETT 24 HR Interval Summary Free Text/Dictation Patient status post tracheostomy Exam/Review of Systems Vital Signs Vitals Vital Signs Date Time Temp Pulse Resp B/P Pulse Ox O2 Delivery O2 Flow Rate FiO2 03/10/17 09:00 88 14 132/89 100 Mechanical Ventilator 03/10/17 08:00 98.9 03/10/17 07:59 40 Intake and Output 03/09/17 03/09/17 03/10/17 15:00 23:00 07:00 Intake Total 252.4 ml 1250 ml 600 ml Output Total 1350 ml 750 ml 755 ml Balance -1097.6 ml 500 ml -155 ml Exam Sleeping but arousable, no apparent distress, following commands Head: normocephalic Neck: other (Tracheostomy) Respiratory: other (Coarse breath sounds bilaterally, no wheezing) Cardiovascular: other (S1-S2 heard), regular rate and rhythm Gastrointestinal: bowel sounds, non-tender, soft Extremities: other (No edema) Results Result Diagram: 03/10/17 0430 03/10/17 0430 Results 24 hrs Laboratory Tests Test 03/09/17 13:57 03/10/17 04:30 03/10/17 07:00 Vancomycin Level Trough 13.8 White Blood Count 12.5 H Red Blood Count 2.67 L Hemoglobin 7.3 L Hematocrit 23.8 L Mean Corpuscular Volume 89.1 Mean Corpuscular Hemoglobin 27.3 L Mean Corpuscular Hemoglobin Concent 30.7 L Red Cell Distribution Width 15.4 H Platelet Count 492 H Mean Platelet Volume 11.3 H Neutrophils % 77.5 H Lymphocytes % 6.4 L Monocytes % 9.3 Eosinophils % 4.1 Basophils % 0.5 Nucleated Red Blood Cells % 0.0 Neutrophils # 9.7 H Lymphocytes # 0.8 Monocytes # 1.2 H Eosinophils # 0.5 Basophils # 0.1 Nucleated Red Blood Cells # 0.0 Sodium Level 136 Potassium Level 4.0 Chloride Level 97 Carbon Dioxide Level 29 Anion Gap 14 Blood Urea Nitrogen 15 Creatinine 0.47 L Glucose Level 103 Calcium Level 8.5 Phosphorus Level 4.0 Magnesium Level 1.6 L Blood Gas Specimen Source Blood arterial Arterial Blood Date Drawn 03/10/2017 7:40:18 AM Arterial Blood pH (Temp corrected) 7.468 H Arterial Blood pCO2 (Temp correct) 38.7 Arterial Blood pO2 (Temp corrected) 125.9 H Arterial Blood HCO3 27.4 H Arterial Blood Base Excess 3.6 H Arterial Blood Oxygen Saturation 98.2 H Raffy Test ACCEPTAB Arterial Blood Gas Puncture Site Right Radial Arterial Blood Carboxyhemoglobin 0.3 Arterial Blood Methemoglobin 0.5 Blood Gas A-a O2 Differential 114.8 H Oxyhemoglobin Percent 97.4 Total Hemoglobin 11.3 L Blood Gas Temperature 37.0 Blood Gas Respiration Rate 18.0 Blood Gas Actual Respiration Rate 18 Blood Gas Modality VENT - AC FiO2 40.0 Blood Gas Tidal Volume 550.0 Blood Gas Low PEEP Setting 5.0 Blood Gas Notified Whom JLD Blood Gas Notified Time 03/10/2017 8:13:54 AM Medications Medications Current Medications Pantoprazole (Protonix Iv) 40 mg DAILY@06 IV Last administered on 03/10/17 06: 03; Admin Dose 40 MG; Start 02/01/17 at 06:00 Acetaminophen/ Hydrocodone Bitart ([place] (5/325)) 1 tab Q4H PRN PO PAIN LEVEL 4 -7 Last administered on 02/09/17 18:48; Admin Dose 1 TAB; Start 02/01/17 at 20: 30 Acetaminophen/ Hydrocodone Bitart ([place] (5/325)) 2 tab Q4H PRN PO PAIN LEVEL 7 -10; Start 02/01/17 at 20:30 Bisacodyl (Dulcolax Supp) 10 mg BID PRN [place] CONSTIPATION; Start 02/01/17 at 20: 30 Sodium Biphosphate/ Sodium Phosphate (Fleet Enema) 133 ml BID PRN [place] CONSTIPATION; Start 02/01/17 at 20:30 Acetaminophen (Tylenol Liquid) 650 mg Q4H PRN GTB PAIN AND OR ELEVATED TEMP Last administered on 02/27/17 12:37; Admin Dose 650 MG; Start 02/05/17 at 18:30 IV Flush (NS 10 ml) 10 ml PRN PRN IV IV PROTOCOL; Start 02/07/17 at 14:30 Diphenhydramine HCl 25 mg 25 mg Q6H PRN IV itching Last administered on 00:00; Admin Dose 25 MG; Start 02/07/17 at 20:00 Ondansetron HCl/ Sodium Chloride (Zofran Inj/NS) 54 ml @ 216 mls/hr Q6H PRN IV NAUSEA AND/OR VOMITING; Start 02/09/17 at 11:30 Lorazepam (Ativan) 1 mg Q1HWA PRN IM AGITATION/ANXIETY; Start 02/10/17 at 19:00 Trimethobenzamide HCl (Tigan) 200 mg Q6H PRN IM NAUSEA AND/OR VOMITING; Start 02/10/17 at 19:30 Morphine Sulfate (morphine) 2 mg Q4H PRN IV pain Last administered on 12:22; Admin Dose 2 MG; Start 02/20/17 at 18:30 Docusate Sodium 100 mg 100 mg QHS PRN NGT For Constipation; Start 02/25/17 at 21:00 Meropenem 100 ml @ 200 mls/hr Q8 IVPB Last administered on 03/10/17 06:03; Admin Dose 200 MLS/HR; Start 02/26/17 at 14:00 Fluconazole 100 ml @ 100 mls/hr Q24H IVPB Last administered on 03/09/17 17:26 ; Admin Dose 100 MLS/HR; Start 02/26/17 at 17:00 Acetaminophen 100 ml @ 50 mls/hr Q6H PRN IVPB fever Last administered on 20:44; Admin Dose 50 MLS/HR; Start 02/28/17 at 07:30 Total Parenteral Nutrition (Tpn) 1,000 ml @ 50 mls/hr Q20H IV Last administered on 03/10/17 01:31; Admin Dose 50 MLS/HR; Start 03/02/17 at 14:00 Enoxaparin Sodium 40 mg 40 mg DAILY SC Last administered on 03/10/17 10:07; Admin Dose 40 MG; Start 03/03/17 at 09:00 Vancomycin HCl 750 mg/Sodium Chloride 150 ml @ 75 mls/hr Q12H IVPB Last administered on 03/10/17 03:01; Admin Dose 75 MLS/HR; Start 03/03/17 at 15:00 Propofol (Diprivan) 100 ml @ 1.869 mls/ hr Q12H IV Last administered on 08:43; Admin Dose 13.083 MLS/HR; Start 03/05/17 at 05:00 Furosemide 20 mg 20 mg DAILY IV Last administered on 03/10/17 10:06; Admin Dose 20 MG; Start 03/09/17 at 09:00 Magnesium Sulfate (Magnesium Sulfate 2 Gm/50 ml) 50 ml @ 25 mls/hr ONCE ONCE IVPB ; Start 03/10/17 at 10:30; Stop 03/10/17 at 12:29 Keith Gandhi DO March 10, 2017 10:53
--- NOTE | 2017-03-10 11:31 | CONS ---
Date/Time of Note Date/Time of Note DATE: 03/10/17 TIME: 11:30 Consult Date/Type/Reason Admit Date/Time Feb 01, 2017 at 03:10 Type of Consultation: Pulmonary ICU Ordering Provider: VINCE PADGETT Subjective Patient stable following tracheostomy placement Objective Vital Signs Date Time Temp Pulse Resp B/P Pulse Ox O2 Delivery O2 Flow Rate FiO2 03/10/17 09:00 88 14 132/89 100 Mechanical Ventilator 03/10/17 08:00 98.9 03/10/17 07:59 40 Intake and Output 03/09/17 03/09/17 03/10/17 15:00 23:00 07:00 Intake Total 252.4 ml 1250 ml 600 ml Output Total 1350 ml 750 ml 755 ml Balance -1097.6 ml 500 ml -155 ml Exam PHYSICAL EXAMINATION GENERAL: Chronically ill-appearing gentleman, on mechanical ventilation via tracheostomy VITAL SIGNS: see below. HEENT: Pupils equal, round, and reactive to light. CARDIAC: S1, S2, 1/6 systolic ejection murmur CHEST: Diminished air entry bilaterally. ABDOMEN: Mildly distended. Bowel sounds present no guarding or rebound EXTREMITIES: No cyanosis, clubbing edema +1 NEUROLOGIC: Generalized weakness Results/Medications Result Diagram: 03/10/17 0430 03/10/17 0430 Results 24 hrs Laboratory Tests Test 03/09/17 13:57 03/10/17 04:30 03/10/17 07:00 Vancomycin Level Trough 13.8 White Blood Count 12.5 H Red Blood Count 2.67 L Hemoglobin 7.3 L Hematocrit 23.8 L Mean Corpuscular Volume 89.1 Mean Corpuscular Hemoglobin 27.3 L Mean Corpuscular Hemoglobin Concent 30.7 L Red Cell Distribution Width 15.4 H Platelet Count 492 H Mean Platelet Volume 11.3 H Neutrophils % 77.5 H Lymphocytes % 6.4 L Monocytes % 9.3 Eosinophils % 4.1 Basophils % 0.5 Nucleated Red Blood Cells % 0.0 Neutrophils # 9.7 H Lymphocytes # 0.8 Monocytes # 1.2 H Eosinophils # 0.5 Basophils # 0.1 Nucleated Red Blood Cells # 0.0 Sodium Level 136 Potassium Level 4.0 Chloride Level 97 Carbon Dioxide Level 29 Anion Gap 14 Blood Urea Nitrogen 15 Creatinine 0.47 L Glucose Level 103 Calcium Level 8.5 Phosphorus Level 4.0 Magnesium Level 1.6 L Blood Gas Specimen Source Blood arterial Arterial Blood Date Drawn 03/10/2017 7:40:18 AM Arterial Blood pH (Temp corrected) 7.468 H Arterial Blood pCO2 (Temp correct) 38.7 Arterial Blood pO2 (Temp corrected) 125.9 H Arterial Blood HCO3 27.4 H Arterial Blood Base Excess 3.6 H Arterial Blood Oxygen Saturation 98.2 H Raffy Test ACCEPTAB Arterial Blood Gas Puncture Site Right Radial Arterial Blood Carboxyhemoglobin 0.3 Arterial Blood Methemoglobin 0.5 Blood Gas A-a O2 Differential 114.8 H Oxyhemoglobin Percent 97.4 Total Hemoglobin 11.3 L Blood Gas Temperature 37.0 Blood Gas Respiration Rate 18.0 Blood Gas Actual Respiration Rate 18 Blood Gas Modality VENT - AC FiO2 40.0 Blood Gas Tidal Volume 550.0 Blood Gas Low PEEP Setting 5.0 Blood Gas Notified Whom JLD Blood Gas Notified Time 03/10/2017 8:13:54 AM Medications Current Medications Pantoprazole (Protonix Iv) 40 mg DAILY@06 IV Last administered on 03/10/17 06: 03; Admin Dose 40 MG; Start 02/01/17 at 06:00 Acetaminophen/ Hydrocodone Bitart ([place] (5/325)) 1 tab Q4H PRN PO PAIN LEVEL 4 -7 Last administered on 02/09/17 18:48; Admin Dose 1 TAB; Start 02/01/17 at 20: 30 Acetaminophen/ Hydrocodone Bitart ([place] (5/325)) 2 tab Q4H PRN PO PAIN LEVEL 7 -10; Start 02/01/17 at 20:30 Bisacodyl (Dulcolax Supp) 10 mg BID PRN [place] CONSTIPATION; Start 02/01/17 at 20: 30 Sodium Biphosphate/ Sodium Phosphate (Fleet Enema) 133 ml BID PRN [place] CONSTIPATION; Start 02/01/17 at 20:30 Acetaminophen (Tylenol Liquid) 650 mg Q4H PRN GTB PAIN AND OR ELEVATED TEMP Last administered on 02/27/17 12:37; Admin Dose 650 MG; Start 02/05/17 at 18:30 IV Flush (NS 10 ml) 10 ml PRN PRN IV IV PROTOCOL; Start 02/07/17 at 14:30 Diphenhydramine HCl 25 mg 25 mg Q6H PRN IV itching Last administered on 00:00; Admin Dose 25 MG; Start 02/07/17 at 20:00 Ondansetron HCl/ Sodium Chloride (Zofran Inj/NS) 54 ml @ 216 mls/hr Q6H PRN IV NAUSEA AND/OR VOMITING; Start 02/09/17 at 11:30 Lorazepam (Ativan) 1 mg Q1HWA PRN IM AGITATION/ANXIETY; Start 02/10/17 at 19:00 Trimethobenzamide HCl (Tigan) 200 mg Q6H PRN IM NAUSEA AND/OR VOMITING; Start 02/10/17 at 19:30 Morphine Sulfate (morphine) 2 mg Q4H PRN IV pain Last administered on 12:22; Admin Dose 2 MG; Start 02/20/17 at 18:30 Docusate Sodium 100 mg 100 mg QHS PRN NGT For Constipation; Start 02/25/17 at 21:00 Meropenem 100 ml @ 200 mls/hr Q8 IVPB Last administered on 03/10/17 06:03; Admin Dose 200 MLS/HR; Start 02/26/17 at 14:00 Fluconazole 100 ml @ 100 mls/hr Q24H IVPB Last administered on 03/09/17 17:26 ; Admin Dose 100 MLS/HR; Start 02/26/17 at 17:00 Acetaminophen 100 ml @ 50 mls/hr Q6H PRN IVPB fever Last administered on 20:44; Admin Dose 50 MLS/HR; Start 02/28/17 at 07:30 Total Parenteral Nutrition (Tpn) 1,000 ml @ 50 mls/hr Q20H IV Last administered on 03/10/17 01:31; Admin Dose 50 MLS/HR; Start 03/02/17 at 14:00 Enoxaparin Sodium 40 mg 40 mg DAILY SC Last administered on 03/10/17 10:07; Admin Dose 40 MG; Start 03/03/17 at 09:00 Vancomycin HCl 750 mg/Sodium Chloride 150 ml @ 75 mls/hr Q12H IVPB Last administered on 03/10/17 03:01; Admin Dose 75 MLS/HR; Start 03/03/17 at 15:00 Propofol (Diprivan) 100 ml @ 1.869 mls/ hr Q12H IV Last administered on 08:43; Admin Dose 13.083 MLS/HR; Start 03/05/17 at 05:00 Furosemide 20 mg 20 mg DAILY IV Last administered on 03/10/17 10:06; Admin Dose 20 MG; Start 03/09/17 at 09:00 Magnesium Sulfate (Magnesium Sulfate 2 Gm/50 ml) 50 ml @ 25 mls/hr ONCE ONCE IVPB ; Start 03/10/17 at 10:30; Stop 03/10/17 at 12:29 Assessment/Plan Chief Complaint/Hosp Course Assessment 1. Crohn's disease with perforation of sigmoid colon and sepsis status post arthroscopic sigmoid colectomy and end colostomy with lysis of adhesions 2. Resolved metabolic acidosis with septic shock 3. Encephalopathy toxic metabolic 4. Hypoxemic respiratory failure mucus plugging left mainstem bronchus status post intubation and bronchoscopy, now with tracheostomy in place 5. Thrombocytopenia resolved, likely underlying pneumonia 6. Anemia worsening hemoglobin no active GI bleeding stool guaiac negative questionable retroperitoneal bleed 7. Likely critical illness myopathy Plan 1. Continue mechanical ventilation, continue tracheostomy care 2. Bronchodilators as needed 3. Continue surgical wound care discussed with , CT abdomen if hemoglobin continues to drop 4. Continue broad-spectrum antibiotic coverage 5. DVT GI prophylaxis 6. G-tube placement Disposition Continue current level of care transferred to telemetry floor when stable. Problems: RAMON DOUGLAS MD, [facility] March 10, 2017 11:31
[2017-03-10 12:46] LABS: INR 1.08; PT RATIO 1.1
[2017-03-10 12:47] LABS: PARTIAL THROMBOPLASTIN TIME 46.2 Sec (25.0-35.0)
--- NOTE | 2017-03-10 13:28 | PN ---
DATE: 03/10/2017 SUBJECTIVE: No changes. The patient is awake, pleasantly confused, in no distress. No fevers. VITAL SIGNS: Temperature 98.9, pulse 96, respirations 20, blood pressure 132/89, saturation 100% on vent support. LABORATORY DATA: WBC 12.5, platelets 492, H and H 7.3 and 23.8, neutrophils 77.5. BUN 15, creatini ne 0.47. DIAGNOSTICS: Chest x-ray this morning revealed stable bilateral pleural effusions with adjacent ate lectasis. INDWELLINGS: Trach, Zeng, PICC line placed on 03/01/2017. ANTIMICROBIALS: 1. Vancomycin. 2. Fluconazole. 3. Meropenem day #13. PHYSICAL EXAMINATION: GENERAL: This is a chronically ill-appearing, fragile, middle-aged white man who is awake, in no di stress. HEENT: Head atraumatic, normocephalic. Sclerae anicteric. Buccal mucosa dry. NECK: Supple. Tracheostomy present. CHEST: Rise symmetrical. Breath sounds diminished to bases. HEART: S1, S2. ABDOMEN: Soft, bowel sounds present. EXTREMITIES: No cyanosis. ASSESSMENT: 1. Resolving sepsis status post shock. 2. Status post pneumonia. 3. Respiratory failure, status post tracheostomy. 4. Crohn's disease, status post perforated viscus repair. 5. Anemia. 6. History of ETOH. PLAN: The patient remains stable. Completing antibiotic. Pending PEG. Dictated By: THOMAS ELLIS PILE OPERATOR for MICKY RAMÍREZ/YAN Conf#: [id number] DID#: [id number]
--- NOTE | 2017-03-10 14:08 | PN ---
Date/Time of Note Date/Time of Note DATE: 03/10/17 TIME: 14:07 Assessment/Plan Lines/Catheters IV Catheter Type (from Nrsg): PICC Line Zeng in Place (from Nrsg): Yes Assessment/Plan Chief Complaint/Hosp Course SP tracheostomy will continue vent support pulm toilet Trach care Problems: Subjective 24 Hr Interval Summary Constitutional: improved Pain Control: mild Exam/Review of Systems Vital Signs Vitals Vital Signs Date Time Temp Pulse Resp B/P Pulse Ox O2 Delivery O2 Flow Rate FiO2 03/10/17 13:03 81 16 100 40 03/10/17 09:00 132/89 Mechanical Ventilator 03/10/17 08:00 98.9 Intake and Output 03/09/17 03/09/17 03/10/17 15:00 23:00 07:00 Intake Total 252.4 ml 1250 ml 600 ml Output Total 1350 ml 750 ml 755 ml Balance -1097.6 ml 500 ml -155 ml Exam Neck: non-tender, supple Respiratory: clear to auscultation, normal air movement Cardiovascular: nl pulses, regular rate and rhythm Gastrointestinal: nl liver, spleen, non-tender, soft Results Result Diagram: 03/10/17 0430 03/10/17 0430 ROMAN OROZCO MD March 10, 2017 14:08
[2017-03-10] MEDS: FLUCONAZOLE 200 MG/NS (PMX) 100 ML IVPB SCH (15:52)
[2017-03-10] MEDS ORDERED: LIDOCAINE 2% (SDV) 5 ML INJ ONE (16:52)
[2017-03-10] MEDS ORDERED: PROPOFOL 20 ML ONE (16:52)
[2017-03-10] MEDS ORDERED: MIDAZOLAM 1 MG/ML 2 ML INJ ONE (16:52)
[2017-03-11] VITALS (36 sets, daily range): BP systolic 110–130; BP diastolic 75–88; PULSE 85–92; RESP 14–30
[2017-03-11] MEDS: ALBUTEROL 18 GM INHALER INH SCH ×4 (01:24→19:34)
[2017-03-11] MEDS: ACETYLCYSTEINE 20% 4 ML VIAL NEB SCH ×4 (01:24→19:34)
[2017-03-11] MEDS: IPRATROPIUM (HFA) 12.9 GM INHALER INH SCH ×4 (01:24→19:34)
[2017-03-11] MEDS: morphine 2 MG INJ IV PRN (01:44)
[2017-03-11] MEDS: VANCOMYCIN 750 MG in SOD CHLORIDE 0.9% 150 ML IVPB SCH (03:20)
[2017-03-11] MEDS ORDERED: ALTEPLASE (CATHFLO) 2 MG INJ CATHETER PRN ×2 (04:30)
[2017-03-11 05:14] LABS: ADD SCAN DIFF NO
[2017-03-11 05:25] LABS: BASOPHIL # 0.1 10^3/ul (0.0-0.1); BASOPHILS % 0.5 % (0.0-2.0); EOSINOPHILS # 0.5 10^3/ul (0.0-0.5); EOSINOPHILS % 3.5 % (0.0-7.0); HEMOGLOBIN 7.5 g/dl (14.0-18.0); LYMPHOCYTES # 0.8 10^3/ul (0.8-2.9); LYMPHOCYTES % 6.5 % (15.0-51.0); MEAN CORPUSCULAR HEMOGLOBIN 28.1 pg (29.0-33.0); MEAN CORPUSCULAR HGB CONC 31.3 g/dl (32.0-37.0); MEAN CORPUSCULAR VOLUME 89.9 fl (82.0-101.0); MEAN PLATELET VOLUME 11.2 fl (7.4-10.4); MONOCYTE # 1.1 10^3/ul (0.3-0.9); MONOCYTES % 8.7 % (0.0-11.0); NEUTROPHIL # 10.2 10^3/ul (1.6-7.5); NEUTROPHILS % 79.3 % (39.0-77.0); PLATELET COUNT 499 10^3/UL (140-415); RED BLOOD COUNT 2.67 10^6/ul (4.70-6.10); RED CELL DISTRIBUTION WIDTH 15.3 % (11.5-14.5); WHITE BLOOD COUNT 12.8 10^3/ul (4.8-10.8)
[2017-03-11 05:42] LABS: POTASSIUM 4.2 mmol/L (3.5-5.1)
[2017-03-11 05:44] LABS: CREATININE 0.49 mg/dl (0.61-1.24)
[2017-03-11 05:46] LABS: CALCIUM 8.6 mg/dl (8.4-10.2); MAGNESIUM 1.8 mg/dl (1.7-2.5)
[2017-03-11] MEDS: MEROPENEM 1 GM/100 ML (PMX) 100 ML IVPB SCH (05:51)
[2017-03-11] MEDS: PANTOPRAZOLE 40 MG INJ IV SCH (05:51)
--- NOTE | 2017-03-11 06:04 | GILP ---
DATE OF PROCEDURE: PROCEDURE: Esophagogastroduodenoscopy with percutaneous endoscopic gastrostomy tube placement. BRIEF HISTORY AND INDICATIONS: The patient with recent tracheostomy placement, requiring enteral fe eding support. PREMEDICATION: Monitored anesthesia care by anesthesiologist. SURGEON: Sandra Jackson MD INSTRUMENT USED: Olympus panendoscope. TECHNIQUE: After informed consent, with the patient and/or family members understanding the procedur e, its indications, potential risks and complications, including but not limited to: allergic reacti on, bleeding, perforation, infection or leakage, and after all pertinent questions were answered to the patient and/or family members satisfaction, the patient and/or family member signed witnessed in formed consent. Following this, premedication was administered slowly IV push, under careful cardiovascular and resp iratory monitoring with pulse oximetry, blood pressure and resource teacher. Once the sedative effect was achieved the patient was place in the supine position, the panendoscope was introduced and advanced under visual guidance. Careful examination of the upper gastrointestinal tract, on insertion as well as withdrawal of the i nstrument disclosed the following findings: ESOPHAGUS: The mucosa of the entire esophagus appears within normal limits. There is no evidence of esophagitis, varices, neoplasm or stricture. STOMACH: Upon entrance to the stomach air was insufflated, the gastric ag distended normally. Th e mucosa of the fundus, body and antrum of the stomach was carefully examined both head-on and on re troflexion, and shows no abnormalities. There is no evidence of gastritis, ulcers or neoplasm. PYLORUS: The pylorus appears patent and within normal limits, with no evidence of gastric outlet ob struction. DUODENUM: The duodenal mucosa was carefully examined in the duodenal bulb as well as the second por tion of the duodenum and appears unremarkable with no evidence of duodenitis, ulcer or neoplasm. The instrument was then brought back to the stomach and the anterior wall mid-body was identified by transillumination and "finger indentation", this area was then marked in the anterior wall of the a bdomen, it was cleansed with Betadine and infiltrated with Xylocaine 1%. Following this a trocar nee dle was introduced into the gastric lumen under visual control with the endoscope, once in the gastr ic lumen a guide wire was advanced and secured with a polypectomy snare, at this point the endoscope was withdrawn bringing the guide wire out through the patients mouth. Following this a gastrostomy tube was introduced over the guide wire, with the Sacks-Vinne technique without difficulty, a small incision was performed in the skin to allow easy passage of the G-tube, once the position of the gas trostomy tube was confirmed, the external stopper and connectors were installed, and a clean dressin g applied. Gastrostomy tube used is a [place] 20 gastrostomy tube. The patient tolerated the procedure well and was transferred out of the endoscopy suite awake, and i n good condition to continue recovery under observation, feedings will started in the next 12-24h an d gastrostomy care will be instituted. IMPRESSION: Uneventful percutaneous endoscopic gastrostomy tube placement of a [place] 20 gastrostom y tube. PLAN: Feedings will be started tomorrow morning. Dictated By: SANDRA CAMPBELL Conf#: [id number] DID#: [id number]
[2017-03-11] MEDS: FUROSEMIDE 20 MG INJ IV SCH (09:27)
[2017-03-11] MEDS: ENOXAPARIN 40 MG/0.4 ML SYG SC SCH (09:27)
--- NOTE | 2017-03-11 10:03 | PN ---
Date/Time of Note Date/Time of Note DATE: 03/11/17 TIME: 10:01 Assessment/Plan VTE Prophylaxis VTE Prophylaxis Intervention: LMWH Lines/Catheters IV C[facility]ter Type (from [facility]): PICC Line Central line still needed: Yes Urinary Cath still in place: Yes Reason Cath still needed: urinary retention Assessment/Plan Chief Complaint/Hosp Course Assessment/Plan: 46M with: 1. Perforated sigmoid colon 2/2 Severe Crohn's colitis * S/p Urgent Open Cronin's procedure with end colostomy, liver biopsy and abdominal lavage 02/01/17P * S/p post operative paracolic abscess drained via CT 02/14/[address] * S/p Exploration of abdomen through recent laparotomy site with closure of fascia done 02/15/17 for Fascia dehiscence * PEG placed yesterday as well. Will need to wean off TPN and start PEG feeds. 2. Recurrent Resp failure: Extubated then reintubated 02/13, extubated, then reintubated 02/25/17, then extubated 02/27 and reintubated 03/04 * Status post bronchoscopy with clearance of extensive secretions in the left mainstem bronchus with improved aeration radiographically 02/25 * Pulm concerned about possible neuromuscular injury contributing to recurrent resp failure - s/p trach placement 2 days ago - f/u rec's 3. Exacerbation of Crohn's disease with acute colitis and diarrhea Cultures earlier were growing ecoli / proteus / enterococcus 4. Multifocal PNA + Mook Pleural effusions - Effusions likely hydrostatic from hypoalbuminemia. + fevers - monitor, ID managing abx and antifungal 5. Severe Sepsis with lactic acidosis 2/2 severe colitis / PNA - Continue abx per ID 6. S/p Systemic shock (hypovolemic +septic) - again, see # 5, abx: Resolved 7. TPN therapy for low prealbumin: monitor 8. Hx of heavy alcohol and tobacco use just until admission - monitor 9. Probable underlying COPD and Cirrhosis based on hx which explains hypoalbuminemia and anasarca - monitor 10. Severe recurrent anemia likely 2/2 occult blood loss from multiple sources : PRN transfusions 11. Hypomagnesemia - replete as needed 12. Encephalopathy / Confusion, although less today. patient may have suffered some anoxic brain insult during the course of his hospitalization. Appreciate Neuro consult - likely multifactorial. Also MRI concerning for possible ostiomeatal unit obstruction / appreciate ENT input on this - continue current tx for now. Dispo: Palliative care consultation for the family in making decision On TPN now, but will try to wean off since pt has now PEG placement. Continue all other ICU supportive care Awaiting possible to [facility] if accepted. CRITICAL CARE TIME: 40 mins Problems: Subjective 24 Hr Interval Summary Free Text/Dictation Pt had PEG placed yesterday. No acute events overnight. Exam/Review of Systems Vital Signs Vitals Vital Signs Date Time Temp Pulse Resp B/P Pulse Ox O2 Delivery O2 Flow Rate FiO2 03/11/17 09:15 89 16 99 40 03/11/17 09:00 124/84 Mechanical Ventilator 03/11/17 08:00 98.8 Intake and Output 03/10/17 03/10/17 03/11/17 15:00 23:00 07:00 Intake Total 500 ml 675 ml 650 ml Output Total 1245 ml 755 ml 495 ml Balance -745 ml -80 ml 155 ml Exam Constitutional: sleeping Head: normocephalic Eyes: PERRL, icteric ENMT: trach in place Respiratory: some diminished breath sounds, No wheezing Cardiovascular: regular rate and rhythm, No murmurs/extra sounds Gastrointestinal: other (midline surgical dressing with wound vac / L sided colostomy and drain / colostomy has dark green fluid stool), soft otherwise. PEG in place Genitourinary - Male: other (significant scrotal and penile edema) Musculoskeletal: swelling (generalized severe anasarca) Extremities: pitting pedal edema Neurological: unable to fully assess now Results Result Diagram: 03/11/17 0400 03/11/17 0400 Results 24 hrs Laboratory Tests Test 03/10/17 11:35 03/11/17 04:00 Prothrombin Time 14.0 Prothrombin Time Ratio 1.1 INR International Normalized Ratio 1.08 Activated Partial Thromboplast Time 46.2 H White Blood Count 12.8 H Red Blood Count 2.67 L Hemoglobin 7.5 L Hematocrit 24.0 L Mean Corpuscular Volume 89.9 Mean Corpuscular Hemoglobin 28.1 L Mean Corpuscular Hemoglobin Concent 31.3 L Red Cell Distribution Width 15.3 H Platelet Count 499 H Mean Platelet Volume 11.2 H Neutrophils % 79.3 H Lymphocytes % 6.5 L Monocytes % 8.7 Eosinophils % 3.5 Basophils % 0.5 Nucleated Red Blood Cells % 0.0 Neutrophils # 10.2 H Lymphocytes # 0.8 Monocytes # 1.1 H Eosinophils # 0.5 Basophils # 0.1 Nucleated Red Blood Cells # 0.0 Sodium Level 136 Potassium Level 4.2 Chloride Level 97 Carbon Dioxide Level 29 Anion Gap 14 Blood Urea Nitrogen 15 Creatinine 0.49 L Glucose Level 94 Calcium Level 8.6 Phosphorus Level 4.0 Magnesium Level 1.8 Medications Medications Current Medications Pantoprazole (Protonix Iv) 40 mg DAILY@06 IV Last administered on 03/11/17 05: 51; Admin Dose 40 MG; Start 02/01/17 at 06:00 Acetaminophen/ Hydrocodone Bitart ([place] (5/325)) 1 tab Q4H PRN PO PAIN LEVEL 4 -7 Last administered on 02/09/17 18:48; Admin Dose 1 TAB; Start 02/01/17 at 20: 30 Acetaminophen/ Hydrocodone Bitart ([place] (5/325)) 2 tab Q4H PRN PO PAIN LEVEL 7 -10; Start 02/01/17 at 20:30 Bisacodyl (Dulcolax Supp) 10 mg BID PRN [place] CONSTIPATION; Start 02/01/17 at 20: 30 Sodium Biphosphate/ Sodium Phosphate (Fleet Enema) 133 ml BID PRN [place] CONSTIPATION; Start 02/01/17 at 20:30 Acetaminophen (Tylenol Liquid) 650 mg Q4H PRN GTB PAIN AND OR ELEVATED TEMP Last administered on 02/27/17 12:37; Admin Dose 650 MG; Start 02/05/17 at 18:30 IV Flush (NS 10 ml) 10 ml PRN PRN IV IV PROTOCOL; Start 02/07/17 at 14:30 Diphenhydramine HCl 25 mg 25 mg Q6H PRN IV itching Last administered on 00:00; Admin Dose 25 MG; Start 02/07/17 at 20:00 Ondansetron HCl/ Sodium Chloride (Zofran Inj/NS) 54 ml @ 216 mls/hr Q6H PRN IV NAUSEA AND/OR VOMITING; Start 02/09/17 at 11:30 Lorazepam (Ativan) 1 mg Q1HWA PRN IM AGITATION/ANXIETY; Start 02/10/17 at 19:00 Trimethobenzamide HCl (Tigan) 200 mg Q6H PRN IM NAUSEA AND/OR VOMITING; Start 02/10/17 at 19:30 Morphine Sulfate (morphine) 2 mg Q4H PRN IV pain Last administered on 01:44; Admin Dose 2 MG; Start 02/20/17 at 18:30 Docusate Sodium 100 mg 100 mg QHS PRN NGT For Constipation; Start 02/25/17 at 21:00 Meropenem 100 ml @ 200 mls/hr Q8 IVPB Last administered on 03/11/17 05:51; Admin Dose 200 MLS/HR; Start 02/26/17 at 14:00 Fluconazole 100 ml @ 100 mls/hr Q24H IVPB Last administered on 03/10/17 15:52 ; Admin Dose 100 MLS/HR; Start 02/26/17 at 17:00 Acetaminophen 100 ml @ 50 mls/hr Q6H PRN IVPB fever Last administered on 20:44; Admin Dose 50 MLS/HR; Start 02/28/17 at 07:30 Total Parenteral Nutrition (Tpn) 1,000 ml @ 50 mls/hr Q20H IV Last administered on 03/10/17 22:02; Admin Dose 50 MLS/HR; Start 03/02/17 at 14:00 Enoxaparin Sodium 40 mg 40 mg DAILY SC Last administered on 03/11/17 09:27; Admin Dose 40 MG; Start 03/03/17 at 09:00 Vancomycin HCl/ Sodium Chloride (Vancocin/NS) 150 ml @ 75 mls/hr Q12H IVPB Last administered on 03/11/17 03:20; Admin Dose 75 MLS/HR; Start 03/03/17 at 15 :00 Furosemide (Lasix) 20 mg DAILY IV Last administered on 03/11/17 09:27; Admin Dose 20 MG; Start 03/09/17 at 09:00 Alteplase, Recombinant (Cathflo (Activase)) 2 mg PRN PRN CATHETER FLUSH LINE Last administered on 03/11/17 09:21; Admin Dose 2 MG; Start 03/11/17 at 04:30 SUSAN SANCHEZ March 11, 2017 10:03
--- NOTE | 2017-03-11 10:46 | CONS ---
Date/Time of Note Date/Time of Note DATE: 03/11/17 TIME: 10:43 Assessment/Plan Assessment/Plan Additional Assessment/Plan Ventilator setting; AC of 16, tidal volume 550, PEEP of 5, 40% FiO2. Patient currently on TPN. Assessment recommendations; 1. Patient admitted for bowel perforation due to diverticulitis status post laparoscopic sigmoidectomy with colostomy. 2. Complicated postop course punctuated by multiple episodes of respiratory failure due to atelectasis, pneumonia, and poor mental status. 3. Status post tracheostomy and G-tube placement. 4. Ileus, with interval resolution. 5. Multiple small intra-abdominal abscesses, patient currently on broad- spectrum antibiotic and antifungal coverage. 6. Pneumonia. With interval improvement as well. Continue current treatment. Patient antibiotics will be stopped today. We will give the patient challenge of tube feeding. If he had a central TPN will be discontinued. Ventilator settings have been adjusted, patient has been switched over to SIMV with a rate of 10, pressure support 10 with continuation of 40% FiO2. Patient also will be evaluated for possible transfer to a rehab center. Prognosis is fair. Consultation Date/Type/Reason Admit Date/Time Feb 01, 2017 at 03:10 Initial Consult Date 02/02/17 Type of Consultation: Pulmonary ICU Referring Provider: VINCE PADGETT 24 HR Interval Summary Free Text/Dictation Patient condition is stable. Underwent tracheostomy and G-tube placement. He is completely awake alert. And is communicating by writing. Denies any chest pain, abdominal pain, nausea vomiting. General exam; young male, on ventilator via tracheostomy currently in no distress. Exam/Review of Systems Vital Signs Vitals Vital Signs Date Time Temp Pulse Resp B/P Pulse Ox O2 Delivery O2 Flow Rate FiO2 03/11/17 10:25 94 20 99 40 03/11/17 09:00 124/84 Mechanical Ventilator 03/11/17 08:00 98.8 Intake and Output 03/10/17 03/10/17 03/11/17 15:00 23:00 07:00 Intake Total 500 ml 675 ml 650 ml Output Total 1245 ml 755 ml 495 ml Balance -745 ml -80 ml 155 ml Exam HEENT examination; supple neck, no JVD. No lymphadenopathy. Midline trachea. No thyromegaly. Pupils are midsize and reactive to light. Dentition is fair. Tracheostomy in place with clean insertion site. Chest examination; clear to auscultation. S1-S2 audible, no murmurs. Regular rhythm. Abdomen examination; soft, colostomy in place. Midline dressing in place bowel sounds audible. Abdomen is nondistended. Nontender. Extremity exam; no peripheral edema. Pulses 1+ bilaterally. [employer] examination; no focal deficit. Results Result Diagram: 03/11/17 0400 03/11/17 0400 Results 24 hrs Laboratory Tests Test 03/10/17 11:35 03/11/17 04:00 Prothrombin Time 14.0 Prothrombin Time Ratio 1.1 INR International Normalized Ratio 1.08 Activated Partial Thromboplast Time 46.2 H White Blood Count 12.8 H Red Blood Count 2.67 L Hemoglobin 7.5 L Hematocrit 24.0 L Mean Corpuscular Volume 89.9 Mean Corpuscular Hemoglobin 28.1 L Mean Corpuscular Hemoglobin Concent 31.3 L Red Cell Distribution Width 15.3 H Platelet Count 499 H Mean Platelet Volume 11.2 H Neutrophils % 79.3 H Lymphocytes % 6.5 L Monocytes % 8.7 Eosinophils % 3.5 Basophils % 0.5 Nucleated Red Blood Cells % 0.0 Neutrophils # 10.2 H Lymphocytes # 0.8 Monocytes # 1.1 H Eosinophils # 0.5 Basophils # 0.1 Nucleated Red Blood Cells # 0.0 Sodium Level 136 Potassium Level 4.2 Chloride Level 97 Carbon Dioxide Level 29 Anion Gap 14 Blood Urea Nitrogen 15 Creatinine 0.49 L Glucose Level 94 Calcium Level 8.6 Phosphorus Level 4.0 Magnesium Level 1.8 Medications Medications Current Medications Pantoprazole (Protonix Iv) 40 mg DAILY@06 IV Last administered on 03/11/17 05: 51; Admin Dose 40 MG; Start 02/01/17 at 06:00 Acetaminophen/ Hydrocodone Bitart ([place] (5/325)) 1 tab Q4H PRN PO PAIN LEVEL 4 -7 Last administered on 02/09/17 18:48; Admin Dose 1 TAB; Start 02/01/17 at 20: 30 Acetaminophen/ Hydrocodone Bitart ([place] (5/325)) 2 tab Q4H PRN PO PAIN LEVEL 7 -10; Start 02/01/17 at 20:30 Bisacodyl (Dulcolax Supp) 10 mg BID PRN [place] CONSTIPATION; Start 02/01/17 at 20: 30 Sodium Biphosphate/ Sodium Phosphate (Fleet Enema) 133 ml BID PRN [place] CONSTIPATION; Start 02/01/17 at 20:30 Acetaminophen (Tylenol Liquid) 650 mg Q4H PRN GTB PAIN AND OR ELEVATED TEMP Last administered on 02/27/17 12:37; Admin Dose 650 MG; Start 02/05/17 at 18:30 IV Flush (NS 10 ml) 10 ml PRN PRN IV IV PROTOCOL; Start 02/07/17 at 14:30 Diphenhydramine HCl 25 mg 25 mg Q6H PRN IV itching Last administered on 00:00; Admin Dose 25 MG; Start 02/07/17 at 20:00 Ondansetron HCl/ Sodium Chloride (Zofran Inj/NS) 54 ml @ 216 mls/hr Q6H PRN IV NAUSEA AND/OR VOMITING; Start 02/09/17 at 11:30 Lorazepam (Ativan) 1 mg Q1HWA PRN IM AGITATION/ANXIETY; Start 02/10/17 at 19:00 Trimethobenzamide HCl (Tigan) 200 mg Q6H PRN IM NAUSEA AND/OR VOMITING; Start 02/10/17 at 19:30 Morphine Sulfate (morphine) 2 mg Q4H PRN IV pain Last administered on 01:44; Admin Dose 2 MG; Start 02/20/17 at 18:30 Docusate Sodium 100 mg 100 mg QHS PRN NGT For Constipation; Start 02/25/17 at 21:00 Meropenem 100 ml @ 200 mls/hr Q8 IVPB Last administered on 03/11/17 05:51; Admin Dose 200 MLS/HR; Start 02/26/17 at 14:00 Fluconazole 100 ml @ 100 mls/hr Q24H IVPB Last administered on 03/10/17 15:52 ; Admin Dose 100 MLS/HR; Start 02/26/17 at 17:00 Acetaminophen 100 ml @ 50 mls/hr Q6H PRN IVPB fever Last administered on 20:44; Admin Dose 50 MLS/HR; Start 02/28/17 at 07:30 Total Parenteral Nutrition (Tpn) 1,000 ml @ 50 mls/hr Q20H IV Last administered on 03/10/17 22:02; Admin Dose 50 MLS/HR; Start 03/02/17 at 14:00 Enoxaparin Sodium 40 mg 40 mg DAILY SC Last administered on 03/11/17 09:27; Admin Dose 40 MG; Start 03/03/17 at 09:00 Vancomycin HCl/ Sodium Chloride (Vancocin/NS) 150 ml @ 75 mls/hr Q12H IVPB Last administered on 03/11/17 03:20; Admin Dose 75 MLS/HR; Start 03/03/17 at 15 :00 Furosemide (Lasix) 20 mg DAILY IV Last administered on 03/11/17 09:27; Admin Dose 20 MG; Start 03/09/17 at 09:00 Alteplase, Recombinant (Cathflo (Activase)) 2 mg PRN PRN CATHETER FLUSH LINE Last administered on 03/11/17 09:21; Admin Dose 2 MG; Start 03/11/17 at 04:30 RICHAR ADRIAN March 11, 2017 10:46
--- NOTE | 2017-03-11 12:18 | PN ---
Date/Time of Note Date/Time of Note DATE: 03/11/17 TIME: 12:15 Assessment/Plan Lines/Catheters IV Catheter Type (from Nrsg): PICC Line Zeng in Place (from Nrsg): Yes Assessment/Plan Assessment/Plan [facility] Progress Note Date of Service: 03/11/17 Today's Impression & Plan: Overall stable on the vent. S/p successful trach and PEG (much appreciate all involved). Abd remains benign. Wound healing well. No indication for acute surgical intervention. Remains high risk for complication given perforated colon in the setting of uncontrolled Crohn's. Recovery will take extra time with likely need for rehab. With above assessment, I've recommended the following for today: 1. Cont current cares in ICU 2. F/u on cultures 3. Cont TPN (goal should be about 1800 to 2000 kCal per day), but start weaning off once tolerating full enteric feeds 4. Pulmonary toilet 5. Cont gentle diuresis to BMP < 200 6. Social work and case management to please start working on [facility] placement 7. Increase activity 8. Increase ICS 9. Wean off broad spec antimicrobials 10. Labs in am 11. Cont current wound care with wound vac 12. F/u on hematology w/u 13. Continue prophylactic anticoagulation (no contraindication from surgical standpoint) Thank you again for your great care of this very pleasant patient and wonderful family. If there are any questions, please feel free to call me at [phone]. TOTAL VISIT TIME: 20 minutes of which more than half was spent in [id number] discussion with the patient, possibly including family, as well as coordination of care between multiple physicians and providers. Disclaimer: Inadvertent spelling or grammatical errors are likely due to EHR/ dictation software use and do not reflect on the overall quality of patient care. Updated Clinical Summary: A very pleasant 46-year-old gentleman with history of Crohn's disease as well as prior surgery for anal fistula approximately 5 years ago, and a torn meniscus repair on the left knee, presenting with abdominal pain associated with a few weeks' duration of diarrhea. S/p an otherwise uncomplicated diagnostic laparoscopy was converted first to hand assist and then to open exploration when perforated sigmoid colon was found and it was resected with a Deena type procedure and end colostomy as well as core needle liver biopsy, segment 5, due to presence of fatty liver disease, lysis of adhesions, and abdominal lavage on 02/01/17. Failed to wean off the vent through 02/06/17. PE was evaluated 02/07/[address] angio and no evidence found. CT abd/pelvis also did not show actionable findings (no abscess; bowel thickening somewhat expected). Extubated 02/07/17. [employer] called early am 02/13/17 with a few minutes coding, requiring intubation and transfer to ICU. Fortunately, mentally appears to be intact and not on pressors. Lactic acid and CO2 normal with benign appearing abd and viable ostomy. Complicated by fascia dehiscence. S/p exploration of abdomen through recent laparotomy, primary closure of fascia and abdominal lavage on 02/15/17. Reintubated 02/25/17 for bronchoscopy to remove mucus plug. Extubated 02/28/17. Re-intubated 03/05/17 due to respiratory failure and hypoxia. 03/05/17: HIV negative and hepatitis B&C neg. Brain MRI did not contribute to the diagnosis, but no mass effect, obvious hemorrhage or other explanatory findings. S/p trach and PEG 03/09/17. COMORBIDITIES: 1. Crohn disease with perforation of sigmoid colon and sepsis. S/p an otherwise uncomplicated diagnostic laparoscopy was converted first to hand assist and then to open exploration when perforated sigmoid colon was found and it was resected with a Deena type procedure and end colostomy as well as core needle liver biopsy, segment 5, due to presence of fatty liver disease, lysis of adhesions, and abdominal lavage on 02/01/17. Complicated by respiratory failure, return trip to ICU and fascia dehiscence. S/p exploration of abdomen through recent laparotomy, primary closure of fascia and abdominal lavage on 02/15. 2. Repair of a fistula approximately 5 years ago. 3. Torn meniscus on the left knee status post repair. 4. S/p trach and PEG 03/09/17 at [facility]. Subjective: No major events or complications; remains on the vent; seems reasonably interactive; difficult to clearly communicate with him with the vent, but does not seem to indicate any abdominal pain, SOB, CP or nausea; appears less confused. Objective: Vitals: See below Exam: GENERAL: On exam, the patient was laying in bed and appeared to be comfortable and in no acute distress. Intubated and on the vent. Eyes open and responds to voice. Trach in place and on the vent. ABDOMEN: Soft, nontender and nondistended. Incision wound vac dressings dc'd and incisions are clean without any evidence of obvious erythema, edema, discharge, or hernia. Nice beefy red granulation tissue in the bed. Wound vac with no sig drainage. Surgery drain site clean. Ostomy pink and viable; some air and stool in the bag. There are no peritoneal signs or guarding. PEG in place and tube feeing ongoing. SKIN: Skin appears to be pink and feels warm to touch. NEUROLOGIC: Patient's eyes open and responds to voice. and follows simple commands appropriately. Exam/Review of Systems Vital Signs Vitals Vital Signs Date Time Temp Pulse Resp B/P Pulse Ox O2 Delivery O2 Flow Rate FiO2 03/11/17 11:47 91 23 98 40 03/11/17 09:00 124/84 Mechanical Ventilator 03/11/17 08:00 98.8 Intake and Output 03/10/17 03/10/17 03/11/17 15:00 23:00 07:00 Intake Total 500 ml 675 ml 650 ml Output Total 1245 ml 755 ml 495 ml Balance -745 ml -80 ml 155 ml Results Result Diagram: 03/11/17 0400 03/11/17 0400 TI HILTON M.D. March 11, 2017 12:17
--- NOTE | 2017-03-11 13:12 | PN ---
DATE: 03/11/2017 INFECTIOUS DISEASE PROGRESS NOTE SUBJECTIVE: No events overnight. No fevers. The patient is awake, confused, in no distress, looks comfortable. He is status post trach, PEG. VITAL SIGNS: Temperature 98.8, pulse 89, respirations 18, blood pressure 121/85, saturation 99 on 4 0 FIO2. WBC 12.8, H and H 7.5 and 24, platelets 499, neutrophils 79.3, BUN 15, creatinine 0.49. MICROBIOLOGY: Cultures have been negative. INDWELLINGS: Trach, PEG, Zeng. PICC line placed on 03/01/2017. PHYSICAL EXAMINATION: GENERAL: Fragile, middle-aged white man, who is awake, in no distress. HEENT: Head atraumatic, normocephalic. Sclerae anicteric. Buccal mucosa dry. NECK: Supple. Tracheostomy present. CHEST: Chest rise is symmetrical. Breath sounds clear. HEART: S1, S2. ABDOMEN: Soft, bowel tones present. EXTREMITIES: Without cyanosis. ASSESSMENT: 1. Status post septic shock, intraabdominal abscess and pneumonia. 2. Crohn's disease. 3. Status post perforated viscus repair. 4. Anemia. 5. History of ETOH. PLAN: The patient remains stable. We are going to discontinue antibiotics and observe him. Dictated By: THOMAS ELLIS CUTTER OPERATOR ASBESTOS SHINGLE for MICKY RAMÍREZ/YAN Conf#: [id number] DID#: [id number]
--- NOTE | 2017-03-11 17:28 | PN ---
Date/Time of Note Date/Time of Note DATE: 03/11/17 TIME: 17:24 Assessment/Plan VTE Prophylaxis VTE Prophylaxis Intervention: SCD's Lines/Catheters IV Catheter Type (from Nrs): PICC Line Central line still needed: Yes Urinary Cath still in place: Yes Reason Cath still needed: urinary retention Assessment/Plan Assessment/Plan Dysphagia S/P PEG placement Perforated sigmoid colon * Laparoscopic exploration,open sigmoid colectomy with Deena end colostomy with liver biopsy segment V h/o Crohn's disease Respiratory failure Thrombocytopenia Liver Cirrhosis Anemia hemoglobin Atelectasis,compressive managed by pulmonary Plan Continue present management tolerating tube feeding Subjective 24 Hr Interval Summary Free Text/Dictation * course reviewed with RN * patient seen and examined * S/P PEG insertion 03/10/2017 Exam/Review of Systems Vital Signs Vitals Vital Signs Date Time Temp Pulse Resp B/P Pulse Ox O2 Delivery O2 Flow Rate FiO2 03/11/17 16:00 97.6 23 116/83 100 Mechanical Ventilator 03/11/17 15:44 93 40 Intake and Output 03/10/17 03/10/17 03/11/17 15:00 23:00 07:00 Intake Total 500 ml 675 ml 650 ml Output Total 1245 ml 755 ml 495 ml Balance -745 ml -80 ml 155 ml Exam Constitutional: alert, frail Neck: non-tender, supple Respiratory: clear to auscultation, normal air movement Cardiovascular: nl pulses, regular rate and rhythm Gastrointestinal: bowel sounds, nl liver, spleen, non-tender, other (peg in placed), soft Musculoskeletal: nl extremities to inspection Extremities: normal pulses Results Result Diagram: 03/11/17 0400 03/11/17 0400 Results 24 hrs Laboratory Tests Test 03/11/17 04:00 White Blood Count 12.8 H Red Blood Count 2.67 L Hemoglobin 7.5 L Hematocrit 24.0 L Mean Corpuscular Volume 89.9 Mean Corpuscular Hemoglobin 28.1 L Mean Corpuscular Hemoglobin Concent 31.3 L Red Cell Distribution Width 15.3 H Platelet Count 499 H Mean Platelet Volume 11.2 H Neutrophils % 79.3 H Lymphocytes % 6.5 L Monocytes % 8.7 Eosinophils % 3.5 Basophils % 0.5 Nucleated Red Blood Cells % 0.0 Neutrophils # 10.2 H Lymphocytes # 0.8 Monocytes # 1.1 H Eosinophils # 0.5 Basophils # 0.1 Nucleated Red Blood Cells # 0.0 Sodium Level 136 Potassium Level 4.2 Chloride Level 97 Carbon Dioxide Level 29 Anion Gap 14 Blood Urea Nitrogen 15 Creatinine 0.49 L Glucose Level 94 Calcium Level 8.6 Phosphorus Level 4.0 Magnesium Level 1.8 Medications Medications Current Medications Pantoprazole (Protonix Iv) 40 mg DAILY@06 IV Last administered on 03/11/17 05: 51; Admin Dose 40 MG; Start 02/01/17 at 06:00 Acetaminophen/ Hydrocodone Bitart ([place] (5/325)) 1 tab Q4H PRN PO PAIN LEVEL 4 -7 Last administered on 02/09/17 18:48; Admin Dose 1 TAB; Start 02/01/17 at 20: 30 Acetaminophen/ Hydrocodone Bitart ([place] (5/325)) 2 tab Q4H PRN PO PAIN LEVEL 7 -10; Start 02/01/17 at 20:30 Bisacodyl (Dulcolax Supp) 10 mg BID PRN [place] CONSTIPATION; Start 02/01/17 at 20: 30 Sodium Biphosphate/ Sodium Phosphate (Fleet Enema) 133 ml BID PRN [place] CONSTIPATION; Start 02/01/17 at 20:30 Acetaminophen (Tylenol Liquid) 650 mg Q4H PRN GTB PAIN AND OR ELEVATED TEMP Last administered on 02/27/17 12:37; Admin Dose 650 MG; Start 02/05/17 at 18:30 IV Flush (NS 10 ml) 10 ml PRN PRN IV IV PROTOCOL; Start 02/07/17 at 14:30 Diphenhydramine HCl 25 mg 25 mg Q6H PRN IV itching Last administered on 00:00; Admin Dose 25 MG; Start 02/07/17 at 20:00 Ondansetron HCl/ Sodium Chloride (Zofran Inj/NS) 54 ml @ 216 mls/hr Q6H PRN IV NAUSEA AND/OR VOMITING; Start 02/09/17 at 11:30 Lorazepam (Ativan) 1 mg Q1HWA PRN IM AGITATION/ANXIETY; Start 02/10/17 at 19:00 Trimethobenzamide HCl (Tigan) 200 mg Q6H PRN IM NAUSEA AND/OR VOMITING; Start 02/10/17 at 19:30 Morphine Sulfate (morphine) 2 mg Q4H PRN IV pain Last administered on 01:44; Admin Dose 2 MG; Start 02/20/17 at 18:30 Docusate Sodium 100 mg 100 mg QHS PRN NGT For Constipation; Start 02/25/17 at 21:00 Acetaminophen 100 ml @ 50 mls/hr Q6H PRN IVPB fever Last administered on 20:44; Admin Dose 50 MLS/HR; Start 02/28/17 at 07:30 Total Parenteral Nutrition (Tpn) 1,000 ml @ 50 mls/hr Q20H IV Last administered on 03/10/17 22:02; Admin Dose 50 MLS/HR; Start 03/02/17 at 14:00 Enoxaparin Sodium (Lovenox) 40 mg DAILY SC Last administered on 03/11/17 09:27 ; Admin Dose 40 MG; Start 03/03/17 at 09:00 Furosemide (Lasix) 20 mg DAILY IV Last administered on 03/11/17 09:27; Admin Dose 20 MG; Start 03/09/17 at 09:00 SANDRA DAVIS MD March 11, 2017 17:28
[2017-03-11] MEDS: TPN 1,000 ML IV SCH (18:00)
[2017-03-11] MEDS ORDERED: MAGNESIUM SULFATE 3 GM in SOD CHLORIDE 0.9% 100 ML IVPB ONE (18:30)
--- NOTE | 2017-03-11 22:35 | PN ---
Date/Time of Note Date/Time of Note DATE: 03/11/17 TIME: 22:34 Assessment/Plan Lines/Catheters IV Catheter Type (from Nrsg): PICC Line Zeng in Place (from Nrsg): Yes Assessment/Plan Chief Complaint/Hosp Course SP tracheostomy will continue vent support pulm toilet Trach care Problems: Subjective 24 Hr Interval Summary Constitutional: improved Pain Control: mild Exam/Review of Systems Vital Signs Vitals Vital Signs Date Time Temp Pulse Resp B/P Pulse Ox O2 Delivery O2 Flow Rate FiO2 03/11/17 21:00 91 24 99 40 03/11/17 18:00 115/80 Mechanical Ventilator 03/11/17 16:00 97.6 Intake and Output 03/10/17 03/10/17 03/11/17 15:00 23:00 07:00 Intake Total 500 ml 675 ml 650 ml Output Total 1245 ml 755 ml 495 ml Balance -745 ml -80 ml 155 ml Exam Neck: non-tender, supple Respiratory: clear to auscultation, normal air movement Cardiovascular: nl pulses, regular rate and rhythm Gastrointestinal: nl liver, spleen, non-tender, soft Results Result Diagram: 03/11/170 03/11/170 ROMAN OROZCO MD March 11, 2017 22:35
[2017-03-12] VITALS (34 sets, daily range): BP systolic 104–122; BP diastolic 72–84; PULSE 86–95; RESP 10–29
[2017-03-12] MEDS: ALBUTEROL 18 GM INHALER INH SCH ×4 (01:43→23:47)
[2017-03-12] MEDS: IPRATROPIUM (HFA) 12.9 GM INHALER INH SCH ×4 (01:43→23:47)
[2017-03-12] MEDS: ACETYLCYSTEINE 20% 4 ML VIAL NEB SCH ×4 (01:45→23:47)
[2017-03-12 04:29] LABS: ADD SCAN DIFF NO
[2017-03-12 04:32] LABS: BASOPHIL # 0.1 10^3/ul (0.0-0.1); BASOPHILS % 0.5 % (0.0-2.0); EOSINOPHILS # 0.6 10^3/ul (0.0-0.5); EOSINOPHILS % 4.8 % (0.0-7.0); HEMATOCRIT 23.5 % (42.0-52.0); HEMOGLOBIN 7.4 g/dl (14.0-18.0); LYMPHOCYTES # 0.8 10^3/ul (0.8-2.9); LYMPHOCYTES % 6.4 % (15.0-51.0); MEAN CORPUSCULAR HEMOGLOBIN 27.9 pg (29.0-33.0); MEAN CORPUSCULAR HGB CONC 31.5 g/dl (32.0-37.0); MEAN CORPUSCULAR VOLUME 88.7 fl (82.0-101.0); MEAN PLATELET VOLUME 11.2 fl (7.4-10.4); MONOCYTE # 1.1 10^3/ul (0.3-0.9); MONOCYTES % 8.9 % (0.0-11.0); NEUTROPHIL # 9.9 10^3/ul (1.6-7.5); NEUTROPHILS % 77.9 % (39.0-77.0); PLATELET COUNT 471 10^3/UL (140-415); RED BLOOD COUNT 2.65 10^6/ul (4.70-6.10); RED CELL DISTRIBUTION WIDTH 15.3 % (11.5-14.5); WHITE BLOOD COUNT 12.7 10^3/ul (4.8-10.8)
[2017-03-12 04:57] LABS: POTASSIUM 4.4 mmol/L (3.5-5.1)
[2017-03-12 04:59] LABS: CREATININE 0.52 mg/dl (0.61-1.24)
[2017-03-12 05:00] LABS: CALCIUM 8.7 mg/dl (8.4-10.2); PHOSPHORUS 4.7 mg/dl (2.5-4.9)
[2017-03-12] MEDS: PANTOPRAZOLE 40 MG INJ IV SCH (05:53)
--- NOTE | 2017-03-12 08:37 | CONS ---
Date/Time of Note Date/Time of Note DATE: 03/12/17 TIME: 08:35 Assessment/Plan Assessment/Plan Additional Assessment/Plan Ventilator settings; SIMV of 10, pressure support 10, PEEP of 5, tidal volume 550, 40% FiO2. Assessment recommendations; 1. Patient admitted for perforated diverticular colitis involving sigmoid colon status post laparoscopic resection with colostomy. 2. Complicated postop course punctuated by recurrent respiratory failure requiring multiple re-intubations. 3. Status post complete atelectasis of left lung, status post bronchoscopy with marked radiological improvement. 4. Failure to be weaned from ventilator, status post tracheostomy and G-tube placement. 5. Anemia. 6. Multiple small intra-abdominal abscesses, currently on appropriate antibiotic regimen. Continue current treatment. Patient currently is not in a position to be switched over to cool aerosol via tracheostomy. Patient was assessed at bedside on CPAP mode currently does not have adequate weaning parameters. Patient would benefit from transfer to a rehab center. Consultation Date/Type/Reason Admit Date/Time Feb 01, 2017 at 03:10 Initial Consult Date 02/02/17 Type of Consultation: Pulmonary/critical care Referring Provider: VINCE PADGETT 24 HR Interval Summary Free Text/Dictation Patient condition is stable. Remains completely awake alert. Follows commands and moving all 4 extremities on command. Able to communicate by writing. Has remained hemodynamically stable. General exam; young male, awake alert currently in no distress. Exam/Review of Systems Vital Signs Vitals Vital Signs Date Time Temp Pulse Resp B/P Pulse Ox O2 Delivery O2 Flow Rate FiO2 03/12/17 08:00 98.6 18 114/83 Mechanical Ventilator 03/12/17 07:25 90 100 40 Intake and Output 03/11/17 03/11/17 03/12/17 15:00 23:00 07:00 Intake Total 550 ml 691 ml 500 ml Output Total 595 ml 350 ml 380 ml Balance -45 ml 341 ml 120 ml Exam HEENT examination; supple neck, no JVD. No lymphadenopathy. Midline trachea. No thyromegaly. Trach ostomy in place with clean insertion site. Patient has fair dentition. Pupils are midsize and reactive to light. Chest examined; clear to auscultation. S1-S2 audible, no murmurs. Regular rhythm. Abdomen examination; soft, colostomy in place G-tube in place bowel sounds audible. It is nondistended. Nontender. Next Extremity exam is; no peripheral edema. Pulses 1+ bilaterally. DESIGNATED BROKER examination; no focal deficit. Results Result Diagram: 03/12/170 03/12/17 040 Results 24 hrs Laboratory Tests Test 03/12/17 04:00 White Blood Count 12.7 H Red Blood Count 2.65 L Hemoglobin 7.4 L Hematocrit 23.5 L Mean Corpuscular Volume 88.7 Mean Corpuscular Hemoglobin 27.9 L Mean Corpuscular Hemoglobin Concent 31.5 L Red Cell Distribution Width 15.3 H Platelet Count 471 H Mean Platelet Volume 11.2 H Neutrophils % 77.9 H Lymphocytes % 6.4 L Monocytes % 8.9 Eosinophils % 4.8 Basophils % 0.5 Nucleated Red Blood Cells % 0.0 Neutrophils # 9.9 H Lymphocytes # 0.8 Monocytes # 1.1 H Eosinophils # 0.6 H Basophils # 0.1 Nucleated Red Blood Cells # 0.0 Sodium Level 136 Potassium Level 4.4 Chloride Level 98 Carbon Dioxide Level 28 Anion Gap 14 Blood Urea Nitrogen 18 Creatinine 0.52 L Glucose Level 106 Calcium Level 8.7 Phosphorus Level 4.7 Magnesium Level 2.0 Medications Medications Current Medications Pantoprazole (Protonix Iv) 40 mg DAILY@06 IV Last administered on 03/12/17 05: 53; Admin Dose 40 MG; Start 02/01/17 at 06:00 Acetaminophen/ Hydrocodone Bitart ([place] (5/325)) 1 tab Q4H PRN PO PAIN LEVEL 4 -7 Last administered on 02/09/17 18:48; Admin Dose 1 TAB; Start 02/01/17 at 20: 30 Acetaminophen/ Hydrocodone Bitart ([place] (5/325)) 2 tab Q4H PRN PO PAIN LEVEL 7 -10; Start 02/01/17 at 20:30 Bisacodyl (Dulcolax Supp) 10 mg BID PRN [place] CONSTIPATION; Start 02/01/17 at 20: 30 Sodium Biphosphate/ Sodium Phosphate (Fleet Enema) 133 ml BID PRN [place] CONSTIPATION; Start 02/01/17 at 20:30 Acetaminophen (Tylenol Liquid) 650 mg Q4H PRN GTB PAIN AND OR ELEVATED TEMP Last administered on 02/27/17 12:37; Admin Dose 650 MG; Start 02/05/17 at 18:30 IV Flush (NS 10 ml) 10 ml PRN PRN IV IV PROTOCOL; Start 02/07/17 at 14:30 Diphenhydramine HCl 25 mg 25 mg Q6H PRN IV itching Last administered on 00:00; Admin Dose 25 MG; Start 02/07/17 at 20:00 Ondansetron HCl/ Sodium Chloride (Zofran Inj/NS) 54 ml @ 216 mls/hr Q6H PRN IV NAUSEA AND/OR VOMITING; Start 02/09/17 at 11:30 Lorazepam (Ativan) 1 mg Q1HWA PRN IM AGITATION/ANXIETY; Start 02/10/17 at 19:00 Trimethobenzamide HCl (Tigan) 200 mg Q6H PRN IM NAUSEA AND/OR VOMITING; Start 02/10/17 at 19:30 Morphine Sulfate (morphine) 2 mg Q4H PRN IV pain Last administered on 01:44; Admin Dose 2 MG; Start 02/20/17 at 18:30 Docusate Sodium 100 mg 100 mg QHS PRN NGT For Constipation; Start 02/25/17 at 21:00 Acetaminophen 100 ml @ 50 mls/hr Q6H PRN IVPB fever Last administered on 20:44; Admin Dose 50 MLS/HR; Start 02/28/17 at 07:30 Total Parenteral Nutrition (Tpn) 1,000 ml @ 50 mls/hr Q20H IV Last administered on 03/10/17 22:02; Admin Dose 50 MLS/HR; Start 03/02/17 at 14:00 Enoxaparin Sodium (Lovenox) 40 mg DAILY SC Last administered on 03/11/17 09:27 ; Admin Dose 40 MG; Start 03/03/17 at 09:00 Furosemide (Lasix) 20 mg DAILY IV Last administered on 03/11/17 09:27; Admin Dose 20 MG; Start 03/09/17 at 09:00 Thiamine HCl (Vitamin B1) 100 mg AM PO ; Start 03/12/17 at 09:00; Stop 03/26/17 at 10:00 Zinc Sulfate (Zinc Sulfate) 220 mg DAILY PO ; Start 03/12/17 at 09:00; Stop 03/26 at 10:00 RICHAR ADRIAN March 12, 2017 08:37
[2017-03-12] MEDS: FUROSEMIDE 20 MG INJ IV SCH (08:45)
[2017-03-12] MEDS: THIAMINE 100 MG TAB PO SCH (08:45)
[2017-03-12] MEDS: ZINC SULFATE 220 MG CAP PO SCH (08:45)
[2017-03-12] MEDS: ENOXAPARIN 40 MG/0.4 ML SYG SC SCH (08:46)
--- NOTE | 2017-03-12 09:01 | CONS ---
Date/Time of Note Date/Time of Note DATE: 03/12/17 TIME: 09:00 Assessment/Plan Assessment/Plan Additional Assessment/Plan Perforated colon status post surgery Severe sepsis Respiratory failure-status post tracheostomy Low normal ejection fraction 50% Acute decompensated diastolic congestive heart failure-improved Crohn's disease Acute blood loss anemia -Diuretics changed to via the PEG. Continue maintenance diuretics as needed with close monitoring of renal function and electrolytes. Maintain potassium above 4.0 and magnesium above 2.0. Consultation Date/Type/Reason Admit Date/Time Feb 01, 2017 at 03:10 Initial Consult Date 02/02/17 Type of Consultation: cv Referring Provider: VINCE PADGETT 24 HR Interval Summary Free Text/Dictation Denies shortness of breath, chest pain Exam/Review of Systems Vital Signs Vitals Vital Signs Date Time Temp Pulse Resp B/P Pulse Ox O2 Delivery O2 Flow Rate FiO2 03/12/17 08:00 98.6 18 114/83 Mechanical Ventilator 03/12/17 07:25 90 100 40 Intake and Output 03/11/17 03/11/17 03/12/17 15:00 23:00 07:00 Intake Total 550 ml 691 ml 500 ml Output Total 595 ml 350 ml 380 ml Balance -45 ml 341 ml 120 ml Exam Following commands, no apparent distress Constitutional: alert, frail Head: normocephalic Neck: other (Tracheostomy) Respiratory: other (Coarse breath sounds bilaterally, no wheezing) Cardiovascular: other (S1-S2 heard), regular rate and rhythm Gastrointestinal: bowel sounds, non-tender, soft Extremities: other (No edema) Results Result Diagram: 03/12/17 0400 03/12/17 0400 Results 24 hrs Laboratory Tests Test 03/12/17 04:00 White Blood Count 12.7 H Red Blood Count 2.65 L Hemoglobin 7.4 L Hematocrit 23.5 L Mean Corpuscular Volume 88.7 Mean Corpuscular Hemoglobin 27.9 L Mean Corpuscular Hemoglobin Concent 31.5 L Red Cell Distribution Width 15.3 H Platelet Count 471 H Mean Platelet Volume 11.2 H Neutrophils % 77.9 H Lymphocytes % 6.4 L Monocytes % 8.9 Eosinophils % 4.8 Basophils % 0.5 Nucleated Red Blood Cells % 0.0 Neutrophils # 9.9 H Lymphocytes # 0.8 Monocytes # 1.1 H Eosinophils # 0.6 H Basophils # 0.1 Nucleated Red Blood Cells # 0.0 Sodium Level 136 Potassium Level 4.4 Chloride Level 98 Carbon Dioxide Level 28 Anion Gap 14 Blood Urea Nitrogen 18 Creatinine 0.52 L Glucose Level 106 Calcium Level 8.7 Phosphorus Level 4.7 Magnesium Level 2.0 Medications Medications Current Medications Pantoprazole (Protonix Iv) 40 mg DAILY@06 IV Last administered on 03/12/17 05: 53; Admin Dose 40 MG; Start 02/01/17 at 06:00 Acetaminophen/ Hydrocodone Bitart ([place] (5/325)) 1 tab Q4H PRN PO PAIN LEVEL 4 -7 Last administered on 02/09/17 18:48; Admin Dose 1 TAB; Start 02/01/17 at 20: 30 Acetaminophen/ Hydrocodone Bitart ([place] (5/325)) 2 tab Q4H PRN PO PAIN LEVEL 7 -10; Start 02/01/17 at 20:30 Bisacodyl (Dulcolax Supp) 10 mg BID PRN [place] CONSTIPATION; Start 02/01/17 at 20: 30 Sodium Biphosphate/ Sodium Phosphate (Fleet Enema) 133 ml BID PRN [place] CONSTIPATION; Start 02/01/17 at 20:30 Acetaminophen (Tylenol Liquid) 650 mg Q4H PRN GTB PAIN AND OR ELEVATED TEMP Last administered on 02/27/17 12:37; Admin Dose 650 MG; Start 02/05/17 at 18:30 IV Flush (NS 10 ml) 10 ml PRN PRN IV IV PROTOCOL; Start 02/07/17 at 14:30 Diphenhydramine HCl 25 mg 25 mg Q6H PRN IV itching Last administered on 00:00; Admin Dose 25 MG; Start 02/07/17 at 20:00 Ondansetron HCl/ Sodium Chloride (Zofran Inj/NS) 54 ml @ 216 mls/hr Q6H PRN IV NAUSEA AND/OR VOMITING; Start 02/09/17 at 11:30 Lorazepam (Ativan) 1 mg Q1HWA PRN IM AGITATION/ANXIETY; Start 02/10/17 at 19:00 Trimethobenzamide HCl (Tigan) 200 mg Q6H PRN IM NAUSEA AND/OR VOMITING; Start 02/10/17 at 19:30 Morphine Sulfate (morphine) 2 mg Q4H PRN IV pain Last administered on 01:44; Admin Dose 2 MG; Start 02/20/17 at 18:30 Docusate Sodium 100 mg 100 mg QHS PRN NGT For Constipation; Start 02/25/17 at 21:00 Acetaminophen 100 ml @ 50 mls/hr Q6H PRN IVPB fever Last administered on 20:44; Admin Dose 50 MLS/HR; Start 02/28/17 at 07:30 Total Parenteral Nutrition (Tpn) 1,000 ml @ 50 mls/hr Q20H IV Last administered on 03/10/17 22:02; Admin Dose 50 MLS/HR; Start 03/02/17 at 14:00 Enoxaparin Sodium (Lovenox) 40 mg DAILY SC Last administered on 03/12/17 08:46 ; Admin Dose 40 MG; Start 03/03/17 at 09:00 Furosemide (Lasix) 20 mg DAILY IV Last administered on 03/12/17 08:45; Admin Dose 20 MG; Start 03/09/17 at 09:00 Thiamine HCl (Vitamin B1) 100 mg AM PO Last administered on 03/12/17 08:45; Admin Dose 100 MG; Start 03/12/17 at 09:00; Stop 03/26/17 at 10:00 Zinc Sulfate (Zinc Sulfate) 220 mg DAILY PO Last administered on 03/12/17 08: 45; Admin Dose 220 MG; Start 03/12/17 at 09:00; Stop 03/26/17 at 10:00 Keith Gandhi DO March 12, 2017 09:01
--- NOTE | 2017-03-12 10:26 | PN ---
Date/Time of Note Date/Time of Note DATE: 03/12/17 TIME: 10:20 Assessment/Plan VTE Prophylaxis VTE Prophylaxis Intervention: LMWH Lines/Catheters [facility] PICC Line Central line still needed: Yes Urinary Cath still in place: Yes Reason Cath still needed: urinary retention Assessment/Plan Chief Complaint/Hosp Course Assessment/Plan: 46M with: 1. Perforated sigmoid colon 2/2 Severe Crohn's colitis * S/p Urgent Open Cronin's procedure with end colostomy, liver biopsy and abdominal lavage 02/01/17P * S/p post operative paracolic abscess drained via CT 02/14/[address] * S/p Exploration of abdomen through recent laparotomy site with closure of fascia done 02/15/17 for Fascia dehiscence * PEG placed 2 days ago - continue PEG feeds. 2. Recurrent Resp failure: Extubated then reintubated 02/13, extubated, then reintubated 02/25/17, then extubated 02/27 and reintubated 03/04 * Status post bronchoscopy with clearance of extensive secretions in the left mainstem bronchus with improved aeration radiographically 02/25 * Pulm concerned about possible neuromuscular injury contributing to recurrent resp failure - s/p trach placement 3 days ago - f/u rec's 3. Exacerbation of Crohn's disease with acute colitis and diarrhea Cultures earlier were growing ecoli / proteus / enterococcus 4. Multifocal PNA + Mook Pleural effusions - Effusions likely hydrostatic from hypoalbuminemia. + fevers - monitor, ID managing abx and antifungal 5. Severe Sepsis with lactic acidosis 2/2 severe colitis / PNA - Continue abx per ID 6. S/p Systemic shock (hypovolemic +septic) - again, see # 5, abx: Resolved 7. TPN therapy for low prealbumin: monitor 8. Hx of heavy alcohol and tobacco use just until admission - monitor 9. Probable underlying COPD and Cirrhosis based on hx which explains hypoalbuminemia and anasarca - monitor 10. Severe recurrent anemia likely 2/2 occult blood loss from multiple sources : PRN transfusions 11. Hypomagnesemia - replete as needed 12. Encephalopathy / Confusion, although less today. patient may have suffered some anoxic brain insult during the course of his hospitalization. Appreciate Neuro consult - likely multifactorial. Also MRI concerning for possible ostiomeatal unit obstruction / appreciate ENT input on this - continue current tx for now. Dispo: Palliative care consultation for the family in making decision Continue all other ICU supportive care Awaiting possible to [facility] if accepted vs sub-acute facility. CRITICAL CARE TIME: 40 mins Problems: Subjective 24 Hr Interval Summary Free Text/Dictation Pt appears a bit more alert today. Now on G-tube feeds (and off TPN). Exam/Review of Systems Vital Signs Vitals Vital Signs Date Time Temp Pulse Resp B/P Pulse Ox O2 Delivery O2 Flow Rate FiO2 03/12/17 10:00 28 115/82 Mechanical Ventilator 03/12/17 09:00 100 03/12/17 08:58 91 40 03/12/17 08:00 98.6 Intake and Output 03/11/17 03/11/17 03/12/17 14:59 22:59 06:59 Intake Total 520 ml 721 ml 550 ml Output Total 530 ml 380 ml 415 ml Balance -10 ml 341 ml 135 ml Exam Constitutional: conversing a bit Head: normocephalic Eyes: PERRL, icteric ENMT: trach in place Respiratory: some diminished breath sounds, No wheezing Cardiovascular: regular rate and rhythm, No murmurs/extra sounds Gastrointestinal: other (midline surgical dressing with wound vac / L sided colostomy and drain / colostomy has dark green fluid stool), soft otherwise. PEG in place Genitourinary - Male: other (some scrotal and penile edema) Musculoskeletal: some swelling (generalized anasarca) Extremities: some pitting pedal edema Results Result Diagram: 03/12/17 0400 03/12/17 0400 Results 24 hrs Laboratory Tests Test 03/12/17 04:00 White Blood Count 12.7 H Red Blood Count 2.65 L Hemoglobin 7.4 L Hematocrit 23.5 L Mean Corpuscular Volume 88.7 Mean Corpuscular Hemoglobin 27.9 L Mean Corpuscular Hemoglobin Concent 31.5 L Red Cell Distribution Width 15.3 H Platelet Count 471 H Mean Platelet Volume 11.2 H Neutrophils % 77.9 H Lymphocytes % 6.4 L Monocytes % 8.9 Eosinophils % 4.8 Basophils % 0.5 Nucleated Red Blood Cells % 0.0 Neutrophils # 9.9 H Lymphocytes # 0.8 Monocytes # 1.1 H Eosinophils # 0.6 H Basophils # 0.1 Nucleated Red Blood Cells # 0.0 Sodium Level 136 Potassium Level 4.4 Chloride Level 98 Carbon Dioxide Level 28 Anion Gap 14 Blood Urea Nitrogen 18 Creatinine 0.52 L Glucose Level 106 Calcium Level 8.7 Phosphorus Level 4.7 Magnesium Level 2.0 Medications Medications Current Medications Pantoprazole (Protonix Iv) 40 mg DAILY@06 IV Last administered on 03/12/17 05: 53; Admin Dose 40 MG; Start 02/01/17 at 06:00 Acetaminophen/ Hydrocodone Bitart ([place] (5/325)) 1 tab Q4H PRN PO PAIN LEVEL 4 -7 Last administered on 02/09/17 18:48; Admin Dose 1 TAB; Start 02/01/17 at 20: 30 Acetaminophen/ Hydrocodone Bitart ([place] (5/325)) 2 tab Q4H PRN PO PAIN LEVEL 7 -10; Start 02/01/17 at 20:30 Bisacodyl (Dulcolax Supp) 10 mg BID PRN [place] CONSTIPATION; Start 02/01/17 at 20: 30 Sodium Biphosphate/ Sodium Phosphate (Fleet Enema) 133 ml BID PRN [place] CONSTIPATION; Start 02/01/17 at 20:30 Acetaminophen (Tylenol Liquid) 650 mg Q4H PRN GTB PAIN AND OR ELEVATED TEMP Last administered on 02/27/17 12:37; Admin Dose 650 MG; Start 02/05/17 at 18:30 IV Flush (NS 10 ml) 10 ml PRN PRN IV IV PROTOCOL; Start 02/07/17 at 14:30 Diphenhydramine HCl 25 mg 25 mg Q6H PRN IV itching Last administered on 00:00; Admin Dose 25 MG; Start 02/07/17 at 20:00 Ondansetron HCl/ Sodium Chloride (Zofran Inj/NS) 54 ml @ 216 mls/hr Q6H PRN IV NAUSEA AND/OR VOMITING; Start 02/09/17 at 11:30 Lorazepam (Ativan) 1 mg Q1HWA PRN IM AGITATION/ANXIETY; Start 02/10/17 at 19:00 Trimethobenzamide HCl (Tigan) 200 mg Q6H PRN IM NAUSEA AND/OR VOMITING; Start 02/10/17 at 19:30 Morphine Sulfate (morphine) 2 mg Q4H PRN IV pain Last administered on 01:44; Admin Dose 2 MG; Start 02/20/17 at 18:30 Docusate Sodium 100 mg 100 mg QHS PRN NGT For Constipation; Start 02/25/17 at 21:00 Acetaminophen 100 ml @ 50 mls/hr Q6H PRN IVPB fever Last administered on 20:44; Admin Dose 50 MLS/HR; Start 02/28/17 at 07:30 Total Parenteral Nutrition (Tpn) 1,000 ml @ 50 mls/hr Q20H IV Last administered on 03/10/17 22:02; Admin Dose 50 MLS/HR; Start 03/02/17 at 14:00 Enoxaparin Sodium (Lovenox) 40 mg DAILY SC Last administered on 03/12/17 08:46 ; Admin Dose 40 MG; Start 03/03/17 at 09:00 Furosemide (Lasix) 20 mg DAILY IV Last administered on 03/12/17 08:45; Admin Dose 20 MG; Start 03/09/17 at 09:00 Thiamine HCl (Vitamin B1) 100 mg AM PO Last administered on 03/12/17 08:45; Admin Dose 100 MG; Start 03/12/17 at 09:00; Stop 03/26/17 at 10:00 Zinc Sulfate (Zinc Sulfate) 220 mg DAILY PO Last administered on 03/12/17 08: 45; Admin Dose 220 MG; Start 03/12/17 at 09:00; Stop 03/26/17 at 10:00 SUSAN SANCHEZ March 12, 2017 10:26
--- NOTE | 2017-03-12 13:27 | CONS ---
Date/Time of Note Date/Time of Note DATE: 03/12/17 TIME: 13:26 Assessment/Plan Assessment/Plan Chief Complaint/Hosp Course SUBJECTIVE: No events overnight. No fevers. The patient is awake, in no distress, looks comfortable. INDWELLINGS: Trach, PEG, Zeng. PICC line placed on 03/01/2017. PHYSICAL EXAMINATION: GENERAL: Fragile, middle-aged white man, who is awake, in no distress. HEENT: Head atraumatic, normocephalic. Sclerae anicteric. Buccal mucosa dry. NECK: Supple. Tracheostomy present. CHEST: Chest rise is symmetrical. Breath sounds clear. HEART: S1, S2. ABDOMEN: Soft, bowel tones present. EXTREMITIES: Without cyanosis. ASSESSMENT: 1. Status post septic shock, intraabdominal abscess and pneumonia. 2. Crohn's disease. 3. Status post perforated viscus repair. 4. Anemia. 5. History of ETOH. PLAN: The patient remains stable, off antibiotics, will oneal cx prn DW staff Problems: Consultation Date/Type/Reason Admit Date/Time Feb 01, 2017 at 03:10 Initial Consult Date 02/02/17 Type of Consultation: ID Referring Provider: VINCE PADGETT Exam/Review of Systems Vital Signs Vitals Vital Signs Date Time Temp Pulse Resp B/P Pulse Ox O2 Delivery O2 Flow Rate FiO2 03/12/17 13:21 92 11 100 40 03/12/17 10:00 115/82 Mechanical Ventilator 03/12/17 08:00 98.6 Intake and Output 03/11/17 03/11/17 03/12/17 15:00 23:00 07:00 Intake Total 550 ml 691 ml 570 ml Output Total 595 ml 350 ml 380 ml Balance -45 ml 341 ml 190 ml Results Result Diagram: 03/12/17 0400 03/12/17 0400 Results 24 hrs Laboratory Tests Test 03/12/17 04:00 White Blood Count 12.7 H Red Blood Count 2.65 L Hemoglobin 7.4 L Hematocrit 23.5 L Mean Corpuscular Volume 88.7 Mean Corpuscular Hemoglobin 27.9 L Mean Corpuscular Hemoglobin Concent 31.5 L Red Cell Distribution Width 15.3 H Platelet Count 471 H Mean Platelet Volume 11.2 H Neutrophils % 77.9 H Lymphocytes % 6.4 L Monocytes % 8.9 Eosinophils % 4.8 Basophils % 0.5 Nucleated Red Blood Cells % 0.0 Neutrophils # 9.9 H Lymphocytes # 0.8 Monocytes # 1.1 H Eosinophils # 0.6 H Basophils # 0.1 Nucleated Red Blood Cells # 0.0 Sodium Level 136 Potassium Level 4.4 Chloride Level 98 Carbon Dioxide Level 28 Anion Gap 14 Blood Urea Nitrogen 18 Creatinine 0.52 L Glucose Level 106 Calcium Level 8.7 Phosphorus Level 4.7 Magnesium Level 2.0 Medications Medications Current Medications Pantoprazole (Protonix Iv) 40 mg DAILY@06 IV Last administered on 03/12/17 05: 53; Admin Dose 40 MG; Start 02/01/17 at 06:00 Acetaminophen/ Hydrocodone Bitart ([place] (5/325)) 1 tab Q4H PRN PO PAIN LEVEL 4 -7 Last administered on 02/09/17 18:48; Admin Dose 1 TAB; Start 02/01/17 at 20: 30 Acetaminophen/ Hydrocodone Bitart ([place] (5/325)) 2 tab Q4H PRN PO PAIN LEVEL 7 -10; Start 02/01/17 at 20:30 Bisacodyl (Dulcolax Supp) 10 mg BID PRN [place] CONSTIPATION; Start 02/01/17 at 20: 30 Sodium Biphosphate/ Sodium Phosphate (Fleet Enema) 133 ml BID PRN [place] CONSTIPATION; Start 02/01/17 at 20:30 Acetaminophen (Tylenol Liquid) 650 mg Q4H PRN GTB PAIN AND OR ELEVATED TEMP Last administered on 02/27/17 12:37; Admin Dose 650 MG; Start 02/05/17 at 18:30 IV Flush (NS 10 ml) 10 ml PRN PRN IV IV PROTOCOL; Start 02/07/17 at 14:30 Diphenhydramine HCl 25 mg 25 mg Q6H PRN IV itching Last administered on 00:00; Admin Dose 25 MG; Start 02/07/17 at 20:00 Ondansetron HCl/ Sodium Chloride (Zofran Inj/NS) 54 ml @ 216 mls/hr Q6H PRN IV NAUSEA AND/OR VOMITING; Start 02/09/17 at 11:30 Trimethobenzamide HCl (Tigan) 200 mg Q6H PRN IM NAUSEA AND/OR VOMITING; Start 02/10/17 at 19:30 Morphine Sulfate (morphine) 2 mg Q4H PRN IV pain Last administered on 01:44; Admin Dose 2 MG; Start 02/20/17 at 18:30 Docusate Sodium 100 mg 100 mg QHS PRN NGT For Constipation; Start 02/25/17 at 21:00 Acetaminophen (Ofirmev 1000mg/ 100ml Iv) 100 ml @ 50 mls/hr Q6H PRN IVPB fever Last administered on 03/06/17 20:44; Admin Dose 50 MLS/HR; Start at 07:30 Enoxaparin Sodium (Lovenox) 40 mg DAILY SC Last administered on 03/12/17 08:46 ; Admin Dose 40 MG; Start 03/03/17 at 09:00 Furosemide (Lasix) 20 mg DAILY IV Last administered on 03/12/17 08:45; Admin Dose 20 MG; Start 03/09/17 at 09:00 Thiamine HCl (Vitamin B1) 100 mg AM PO Last administered on 03/12/17 08:45; Admin Dose 100 MG; Start 03/12/17 at 09:00; Stop 03/26/17 at 10:00 Zinc Sulfate (Zinc Sulfate) 220 mg DAILY PO Last administered on 03/12/17 08: 45; Admin Dose 220 MG; Start 03/12/17 at 09:00; Stop 03/26/17 at 10:00 Lorazepam (Ativan) 0.5 mg Q6H PRN IV ANXIETY; Start 03/12/17 at 12:30 THOMAS ELLIS NP March 12, 2017 13:27
--- NOTE | 2017-03-12 14:08 | CONS ---
Date/Time of Note Date/Time of Note DATE: 03/12/17 TIME: 13:36 Assessment/Plan Assessment/Plan Additional Assessment/Plan Dysphagia * S/P PEG placement Perforated sigmoid colon * Laparoscopic exploration,open sigmoid colectomy with Deena end colostomy with liver biopsy segment V h/o Crohn's disease Respiratory failure * Status post tracheostomy Thrombocytopenia Liver Cirrhosis Anemia Plan: Monitor tube feed every shift, hold tube feeds for residual greater than 150 mL Monitor hemoglobin daily and transfuse to keep above 7.5 Continue present management GI sign off. Consultation available as needed Patient seen in collaboration with Dr. Jackson Consultation Date/Type/Reason Admit Date/Time Feb 01, 2017 at 03:10 Initial Consult Date 02/02/17 Type of Consultation: GI Referring Provider: VINCE PADGETT 24 HR Interval Summary Free Text/Dictation Tube feed at 70 with minimal residual Plan on discharge to SNF or [facility] Adequate output from colostomy GI sign off Exam/Review of Systems Vital Signs Vitals Vital Signs Date Time Temp Pulse Resp B/P Pulse Ox O2 Delivery O2 Flow Rate FiO2 03/12/17 13:21 92 11 100 40 03/12/17 10:00 115/82 Mechanical Ventilator 03/12/17 08:00 98.6 Intake and Output 03/11/17 03/11/17 03/12/17 15:00 23:00 07:00 Intake Total 550 ml 691 ml 570 ml Output Total 595 ml 350 ml 380 ml Balance -45 ml 341 ml 190 ml Exam Constitutional: alert, frail Neck: non-tender, supple Respiratory: clear to auscultation, normal air movement Cardiovascular: nl pulses, regular rate and rhythm Gastrointestinal: bowel sounds, nl liver, spleen, non-tender, other (peg in place), soft Musculoskeletal: nl extremities to inspection Extremities: normal pulses Results Result Diagram: 03/12/17 0400 03/12/17 0400 Results 24 hrs Laboratory Tests Test 03/12/17 04:00 White Blood Count 12.7 H Red Blood Count 2.65 L Hemoglobin 7.4 L Hematocrit 23.5 L Mean Corpuscular Volume 88.7 Mean Corpuscular Hemoglobin 27.9 L Mean Corpuscular Hemoglobin Concent 31.5 L Red Cell Distribution Width 15.3 H Platelet Count 471 H Mean Platelet Volume 11.2 H Neutrophils % 77.9 H Lymphocytes % 6.4 L Monocytes % 8.9 Eosinophils % 4.8 Basophils % 0.5 Nucleated Red Blood Cells % 0.0 Neutrophils # 9.9 H Lymphocytes # 0.8 Monocytes # 1.1 H Eosinophils # 0.6 H Basophils # 0.1 Nucleated Red Blood Cells # 0.0 Sodium Level 136 Potassium Level 4.4 Chloride Level 98 Carbon Dioxide Level 28 Anion Gap 14 Blood Urea Nitrogen 18 Creatinine 0.52 L Glucose Level 106 Calcium Level 8.7 Phosphorus Level 4.7 Magnesium Level 2.0 Medications Medications Current Medications Pantoprazole (Protonix Iv) 40 mg DAILY@06 IV Last administered on 03/12/17 05: 53; Admin Dose 40 MG; Start 02/01/17 at 06:00 Acetaminophen/ Hydrocodone Bitart ([place] (5/325)) 1 tab Q4H PRN PO PAIN LEVEL 4 -7 Last administered on 02/09/17 18:48; Admin Dose 1 TAB; Start 02/01/17 at 20: 30 Acetaminophen/ Hydrocodone Bitart ([place] (5/325)) 2 tab Q4H PRN PO PAIN LEVEL 7 -10; Start 02/01/17 at 20:30 Bisacodyl (Dulcolax Supp) 10 mg BID PRN [place] CONSTIPATION; Start 02/01/17 at 20: 30 Sodium Biphosphate/ Sodium Phosphate (Fleet Enema) 133 ml BID PRN [place] CONSTIPATION; Start 02/01/17 at 20:30 Acetaminophen (Tylenol Liquid) 650 mg Q4H PRN GTB PAIN AND OR ELEVATED TEMP Last administered on 02/27/17 12:37; Admin Dose 650 MG; Start 02/05/17 at 18:30 IV Flush (NS 10 ml) 10 ml PRN PRN IV IV PROTOCOL; Start 02/07/17 at 14:30 Diphenhydramine HCl 25 mg 25 mg Q6H PRN IV itching Last administered on 00:00; Admin Dose 25 MG; Start 02/07/17 at 20:00 Ondansetron HCl/ Sodium Chloride (Zofran Inj/NS) 54 ml @ 216 mls/hr Q6H PRN IV NAUSEA AND/OR VOMITING; Start 02/09/17 at 11:30 Trimethobenzamide HCl (Tigan) 200 mg Q6H PRN IM NAUSEA AND/OR VOMITING; Start 02/10/17 at 19:30 Morphine Sulfate (morphine) 2 mg Q4H PRN IV pain Last administered on 01:44; Admin Dose 2 MG; Start 02/20/17 at 18:30 Docusate Sodium 100 mg 100 mg QHS PRN NGT For Constipation; Start 02/25/17 at 21:00 Acetaminophen (Ofirmev 1000mg/ 100ml Iv) 100 ml @ 50 mls/hr Q6H PRN IVPB fever Last administered on 03/06/17 20:44; Admin Dose 50 MLS/HR; Start at 07:30 Enoxaparin Sodium (Lovenox) 40 mg DAILY SC Last administered on 03/12/17 08:46 ; Admin Dose 40 MG; Start 03/03/17 at 09:00 Furosemide (Lasix) 20 mg DAILY IV Last administered on 03/12/17 08:45; Admin Dose 20 MG; Start 03/09/17 at 09:00 Thiamine HCl (Vitamin B1) 100 mg AM PO Last administered on 03/12/17 08:45; Admin Dose 100 MG; Start 03/12/17 at 09:00; Stop 03/26/17 at 10:00 Zinc Sulfate (Zinc Sulfate) 220 mg DAILY PO Last administered on 03/12/17 08: 45; Admin Dose 220 MG; Start 03/12/17 at 09:00; Stop 03/26/17 at 10:00 Lorazepam (Ativan) 0.5 mg Q6H PRN IV ANXIETY; Start 03/12/17 at 12:30 TONY MCCRAY March 12, 2017 14:07
--- NOTE | 2017-03-12 14:49 | PN ---
Date/Time of Note Date/Time of Note DATE: 03/12/17 TIME: 14:46 Assessment/Plan Lines/Catheters IV Catheter Type (from Nrsg): PICC Line Zeng in Place (from Nrsg): Yes Assessment/Plan Assessment/Plan [facility] Progress Note Date of Service: 03/12/17 Today's Impression & Plan: Overall stable on the vent; tolerating trach and PEG. Abd remains benign. Wound healing well. No indication for acute surgical intervention. Remains high risk for complication given perforated colon in the setting of uncontrolled Crohn's. Recovery will take extra time with need for subacute rehab. With above assessment, I've recommended the following for today: 1. Cont current cares in ICU 2. F/u on cultures 3. Cont TPN (goal should be about 1800 to 2000 kCal per day), but start weaning off once tolerating full enteric feeds 4. Pulmonary toilet 5. Cont gentle diuresis to BMP < 200 6. Social work and case management to please start working on training [facility] hospital placement 7. Increase activity 8. Increase ICS 9. Wean off broad spec antimicrobials 10. Labs in am 11. Cont current wound care with wound vac 12. F/u on hematology w/u 13. Continue prophylactic anticoagulation (no contraindication from surgical standpoint) Thank you again for your great care of this very pleasant patient and wonderful family. If there are any questions, please feel free to call me at [phone]. TOTAL VISIT TIME: 20 minutes of which more than half was spent in [id number] discussion with the patient, possibly including family, as well as coordination of care between multiple physicians and providers. Disclaimer: Inadvertent spelling or grammatical errors are likely due to EHR/ dictation software use and do not reflect on the overall quality of patient care. Updated Clinical Summary: A very pleasant 46-year-old gentleman with history of Crohn's disease as well as prior surgery for anal fistula approximately 5 years ago, and a torn meniscus repair on the left knee, presenting with abdominal pain associated with a few weeks' duration of diarrhea. S/p an otherwise uncomplicated diagnostic laparoscopy was converted first to hand assist and then to open exploration when perforated sigmoid colon was found and it was resected with a Deena type procedure and end colostomy as well as core needle liver biopsy, segment 5, due to presence of fatty liver disease, lysis of adhesions, and abdominal lavage on 02/01/17. Failed to wean off the vent through 02/06/17. PE was evaluated 02/07/[address] angio and no evidence found. CT abd/pelvis also did not show actionable findings (no abscess; bowel thickening somewhat expected). Extubated 02/07/17. [employer] called early am 02/13/17 with a few minutes coding, requiring intubation and transfer to ICU. Fortunately, mentally appears to be intact and not on pressors. Lactic acid and CO2 normal with benign appearing abd and viable ostomy. Complicated by fascia dehiscence. S/p exploration of abdomen through recent laparotomy, primary closure of fascia and abdominal lavage on 02/15/17. Reintubated 02/25/17 for bronchoscopy to remove mucus plug. Extubated 02/28/17. Re-intubated 03/05/17 due to respiratory failure and hypoxia. 03/05/17: HIV negative and hepatitis B&C neg. Brain MRI did not contribute to the diagnosis, but no mass effect, obvious hemorrhage or other explanatory findings. S/p trach and PEG 03/09/17. COMORBIDITIES: 1. Crohn disease with perforation of sigmoid colon and sepsis. S/p an otherwise uncomplicated diagnostic laparoscopy was converted first to hand assist and then to open exploration when perforated sigmoid colon was found and it was resected with a Deena type procedure and end colostomy as well as core needle liver biopsy, segment 5, due to presence of fatty liver disease, lysis of adhesions, and abdominal lavage on 02/01/17. Complicated by respiratory failure, return trip to ICU and fascia dehiscence. S/p exploration of abdomen through recent laparotomy, primary closure of fascia and abdominal lavage on 02/15. 2. Repair of a fistula approximately 5 years ago. 3. Torn meniscus on the left knee status post repair. 4. S/p trach and PEG 03/09/17 at [facility]. Subjective: No major events or complications; remains on the vent; seems reasonably interactive; difficult to clearly communicate with him with the vent, but does not seem to indicate any abdominal pain, SOB, CP or nausea; appears less confused and more engaged, but per nursing report still mainly confused. Objective: Vitals: See below Exam: GENERAL: On exam, the patient was laying in bed and appeared to be comfortable and in no acute distress. Intubated and on the vent. Eyes open and responds to voice. Trach in place and on the vent. ABDOMEN: Soft, nontender and nondistended. Incision wound vac dressings clean without any evidence of obvious erythema, edema, discharge, or hernia. Wound vac with no sig drainage. Surgery drain site clean. Ostomy pink and viable; some air and stool in the bag. There are no peritoneal signs or guarding. PEG in place and tube feeing ongoing. SKIN: Skin appears to be pink and feels warm to touch. NEUROLOGIC: Patient's eyes open and responds to voice. and follows simple commands appropriately. Writes questions down on a paper pad; legible; words make sense (no questions for me). Exam/Review of Systems Vital Signs Vitals Vital Signs Date Time Temp Pulse Resp B/P Pulse Ox O2 Delivery O2 Flow Rate FiO2 03/12/17 13:21 92 11 100 40 03/12/17 10:00 115/82 Mechanical Ventilator 03/12/17 08:00 98.6 Intake and Output 03/11/17 03/11/17 03/12/17 15:00 23:00 07:00 Intake Total 550 ml 691 ml 570 ml Output Total 595 ml 350 ml 380 ml Balance -45 ml 341 ml 190 ml Results Result Diagram: 03/12/170 03/12/17399 TI HILTON M.D. March 12, 2017 14:49
--- NOTE | 2017-03-12 17:34 | PN ---
Date/Time of Note Date/Time of Note DATE: 03/12/17 TIME: 17:34 Assessment/Plan Lines/Catheters IV Catheter Type (from Nrsg): PICC Line Zeng in Place (from Nrsg): Yes Assessment/Plan Chief Complaint/Hosp Course SP tracheostomy will continue vent support pulm toilet Trach care Problems: Subjective 24 Hr Interval Summary Constitutional: improved Pain Control: mild Exam/Review of Systems Vital Signs Vitals Vital Signs Date Time Temp Pulse Resp B/P Pulse Ox O2 Delivery O2 Flow Rate FiO2 03/12/17 16:00 90 03/12/17 15:14 29 100 40 03/12/17 15:00 112/83 Mechanical Ventilator 03/12/17 12:00 98.5 Intake and Output 03/11/17 03/11/17 03/12/17 15:00 23:00 07:00 Intake Total 550 ml 691 ml 570 ml Output Total 595 ml 350 ml 380 ml Balance -45 ml 341 ml 190 ml Exam ENMT: mucosa pink and moist, nl external ears & nose, nl lips & teeth, nl nasal mucosa & septum Neck: non-tender, supple Respiratory: clear to auscultation, normal air movement Cardiovascular: nl pulses, regular rate and rhythm Results Result Diagram: 03/12/170 03/12/170 ROMAN OROZCO MD March 12, 2017 17:34
[2017-03-13] VITALS (24 sets, daily range): BP systolic 120–134; BP diastolic 75–84; PULSE 84–101; RESP 18–30
[2017-03-13] MEDS: LORAZEPAM 2 MG INJ IV PRN (01:16)
[2017-03-13] MEDS: IPRATROPIUM (HFA) 12.9 GM INHALER INH SCH ×4 (01:49→20:48)
[2017-03-13] MEDS: ACETYLCYSTEINE 20% 4 ML VIAL NEB SCH ×4 (01:49→20:48)
[2017-03-13] MEDS: ALBUTEROL 18 GM INHALER INH SCH ×4 (01:49→20:48)
[2017-03-13] MEDS: PANTOPRAZOLE 40 MG INJ IV SCH (06:16)
[2017-03-13 07:00] LABS: ADD SCAN DIFF NO
[2017-03-13 07:05] LABS: BASOPHIL # 0.1 10^3/ul (0.0-0.1); BASOPHILS % 0.6 % (0.0-2.0); EOSINOPHILS # 0.5 10^3/ul (0.0-0.5); EOSINOPHILS % 4.2 % (0.0-7.0); HEMATOCRIT 23.9 % (42.0-52.0); HEMOGLOBIN 7.5 g/dl (14.0-18.0); LYMPHOCYTES # 0.9 10^3/ul (0.8-2.9); LYMPHOCYTES % 7.1 % (15.0-51.0); MEAN CORPUSCULAR HEMOGLOBIN 27.9 pg (29.0-33.0); MEAN CORPUSCULAR HGB CONC 31.4 g/dl (32.0-37.0); MEAN CORPUSCULAR VOLUME 88.8 fl (82.0-101.0); MEAN PLATELET VOLUME 11.3 fl (7.4-10.4); MONOCYTE # 1.2 10^3/ul (0.3-0.9); MONOCYTES % 9.3 % (0.0-11.0); NEUTROPHIL # 9.8 10^3/ul (1.6-7.5); NEUTROPHILS % 77.5 % (39.0-77.0); PLATELET COUNT 473 10^3/UL (140-415); RED BLOOD COUNT 2.69 10^6/ul (4.70-6.10); RED CELL DISTRIBUTION WIDTH 15.4 % (11.5-14.5); WHITE BLOOD COUNT 12.6 10^3/ul (4.8-10.8)
[2017-03-13] MEDS: THIAMINE 100 MG TAB PO SCH (08:20)
[2017-03-13] MEDS: ZINC SULFATE 220 MG CAP PO SCH (08:21)
[2017-03-13] MEDS: FUROSEMIDE 20 MG INJ IV SCH (08:22)
[2017-03-13] MEDS: ENOXAPARIN 40 MG/0.4 ML SYG SC SCH (08:26)
--- NOTE | 2017-03-13 10:31 | PN ---
Date/Time of Note Date/Time of Note DATE: 03/13/17 TIME: 10:29 Assessment/Plan VTE Prophylaxis VTE Prophylaxis Intervention: SCD's Lines/Catheters IV Catheter Type (from Nrs): PICC Line Central line still needed: Yes Urinary Cath still in place: Yes Reason Cath still needed: urinary retention Assessment/Plan Assessment/Plan Dysphagia S/P PEG placement Perforated sigmoid colon * Laparoscopic exploration,open sigmoid colectomy with Deena end colostomy with liver biopsy segment V h/o Crohn's disease Respiratory failure Thrombocytopenia Liver Cirrhosis Anemia hemoglobin Atelectasis,compressive managed by pulmonary Plan Continue present management tolerating tube feeding Subjective 24 Hr Interval Summary Free Text/Dictation * Course reviewed with RN * Patient seen and examined * tolerating tube feeding no residual Exam/Review of Systems Vital Signs Vitals Vital Signs Date Time Temp Pulse Resp B/P Pulse Ox O2 Delivery O2 Flow Rate FiO2 03/13/17 09:40 106 30 100 40 03/13/17 08:21 98.0 123/76 03/12/17 18:00 Mechanical Ventilator Intake and Output 03/12/17 03/12/17 03/13/17 15:00 23:00 07:00 Intake Total 610 ml 260 ml 940 ml Output Total 720 ml 265 ml 580 ml Balance -110 ml -5 ml 360 ml Exam Constitutional: alert, frail Neck: non-tender, other (tracheostomy), supple Respiratory: clear to auscultation, normal air movement Cardiovascular: nl pulses, regular rate and rhythm Gastrointestinal: nl liver, spleen, non-tender, soft Musculoskeletal: nl extremities to inspection Extremities: normal pulses Skin: nl turgor Results Result Diagram: 03/13/17 0625 03/12/17 0400 Results 24 hrs Laboratory Tests Test 03/13/17 06:25 White Blood Count 12.6 H Red Blood Count 2.69 L Hemoglobin 7.5 L Hematocrit 23.9 L Mean Corpuscular Volume 88.8 Mean Corpuscular Hemoglobin 27.9 L Mean Corpuscular Hemoglobin Concent 31.4 L Red Cell Distribution Width 15.4 H Platelet Count 473 H Mean Platelet Volume 11.3 H Neutrophils % 77.5 H Lymphocytes % 7.1 L Monocytes % 9.3 Eosinophils % 4.2 Basophils % 0.6 Nucleated Red Blood Cells % 0.0 Neutrophils # 9.8 H Lymphocytes # 0.9 Monocytes # 1.2 H Eosinophils # 0.5 Basophils # 0.1 Nucleated Red Blood Cells # 0.0 Medications Medications Current Medications Pantoprazole (Protonix Iv) 40 mg DAILY@06 IV Last administered on 03/13/17 06: 16; Admin Dose 40 MG; Start 02/01/17 at 06:00 Acetaminophen/ Hydrocodone Bitart ([place] (5/325)) 1 tab Q4H PRN PO PAIN LEVEL 4 -7 Last administered on 02/09/17 18:48; Admin Dose 1 TAB; Start 02/01/17 at 20: 30 Acetaminophen/ Hydrocodone Bitart ([place] (5/325)) 2 tab Q4H PRN PO PAIN LEVEL 7 -10; Start 02/01/17 at 20:30 Bisacodyl (Dulcolax Supp) 10 mg BID PRN [place] CONSTIPATION; Start 02/01/17 at 20: 30 Sodium Biphosphate/ Sodium Phosphate (Fleet Enema) 133 ml BID PRN [place] CONSTIPATION; Start 02/01/17 at 20:30 Acetaminophen (Tylenol Liquid) 650 mg Q4H PRN GTB PAIN AND OR ELEVATED TEMP Last administered on 02/27/17 12:37; Admin Dose 650 MG; Start 02/05/17 at 18:30 IV Flush (NS 10 ml) 10 ml PRN PRN IV IV PROTOCOL; Start 02/07/17 at 14:30 Diphenhydramine HCl 25 mg 25 mg Q6H PRN IV itching Last administered on 00:00; Admin Dose 25 MG; Start 02/07/17 at 20:00 Ondansetron HCl/ Sodium Chloride (Zofran Inj/NS) 54 ml @ 216 mls/hr Q6H PRN IV NAUSEA AND/OR VOMITING; Start 02/09/17 at 11:30 Trimethobenzamide HCl (Tigan) 200 mg Q6H PRN IM NAUSEA AND/OR VOMITING; Start 02/10/17 at 19:30 Morphine Sulfate (morphine) 2 mg Q4H PRN IV pain Last administered on 01:44; Admin Dose 2 MG; Start 02/20/17 at 18:30 Docusate Sodium 100 mg 100 mg QHS PRN NGT For Constipation; Start 02/25/17 at 21:00 Acetaminophen (Ofirmev 1000mg/ 100ml Iv) 100 ml @ 50 mls/hr Q6H PRN IVPB fever Last administered on 03/06/17 20:44; Admin Dose 50 MLS/HR; Start at 07:30 Enoxaparin Sodium (Lovenox) 40 mg DAILY SC Last administered on 03/12/17 08:46 ; Admin Dose 40 MG; Start 03/03/17 at 09:00 Furosemide (Lasix) 20 mg DAILY IV Last administered on 03/13/17 08:22; Admin Dose 20 MG; Start 03/09/17 at 09:00 Thiamine HCl (Vitamin B1) 100 mg AM PO Last administered on 03/13/17 08:20; Admin Dose 100 MG; Start 03/12/17 at 09:00; Stop 03/26/17 at 10:00 Zinc Sulfate (Zinc Sulfate) 220 mg DAILY PO Last administered on 03/13/17 08: 21; Admin Dose 220 MG; Start 03/12/17 at 09:00; Stop 03/26/17 at 10:00 Lorazepam (Ativan) 0.5 mg Q6H PRN IV ANXIETY Last administered on 03/13/17 01: 16; Admin Dose 0.5 MG; Start 03/12/17 at 12:30 SANDRA DAVIS MD March 13, 2017 10:31
--- NOTE | 2017-03-13 11:30 | PN ---
Date/Time of Note Date/Time of Note DATE: 03/13/17 TIME: 11:29 Assessment/Plan VTE Prophylaxis VTE Prophylaxis Intervention: LMWH Lines/Catheters IV Catheter Type (from [facility]): PICC Line Central line still needed: Yes Urinary Cath still in place: Yes Reason Cath still needed: urinary retention Assessment/Plan Chief Complaint/Hosp Course Assessment/Plan: 46M with: 1. Perforated sigmoid colon 2/2 Severe Crohn's colitis * S/p Urgent Open Cronin's procedure with end colostomy, liver biopsy and abdominal lavage 02/01/17P * S/p post operative paracolic abscess drained via CT 02/14/[address] * S/p Exploration of abdomen through recent laparotomy site with closure of fascia done 02/15/17 for Fascia dehiscence * PEG placed 3 days ago - continue PEG feeds. 2. Recurrent Resp failure: Extubated then reintubated 02/13, extubated, then reintubated 02/25/17, then extubated 02/27 and reintubated 03/04 * Status post bronchoscopy with clearance of extensive secretions in the left mainstem bronchus with improved aeration radiographically 02/25 * Pulm concerned about possible neuromuscular injury contributing to recurrent resp failure - s/p trach placement 4 days ago - f/u rec's 3. Exacerbation of Crohn's disease with acute colitis and diarrhea Cultures earlier were growing ecoli / proteus / enterococcus 4. Multifocal PNA + Mook Pleural effusions - Effusions likely hydrostatic from hypoalbuminemia. + fevers - monitor, ID managing abx and antifungal 5. Severe Sepsis with lactic acidosis 2/2 severe colitis / PNA - Continue abx per ID 6. S/p Systemic shock (hypovolemic +septic) - again, see # 5, abx: Resolved 7. TPN therapy for low prealbumin: monitor 8. Hx of heavy alcohol and tobacco use just until admission - monitor 9. Probable underlying COPD and Cirrhosis based on hx which explains hypoalbuminemia and anasarca - monitor 10. Severe recurrent anemia likely 2/2 occult blood loss from multiple sources : PRN transfusions 11. Hypomagnesemia - replete as needed 12. Encephalopathy / Confusion, although less today. patient may have suffered some anoxic brain insult during the course of his hospitalization. Appreciate Neuro consult - likely multifactorial. Also MRI concerning for possible ostiomeatal unit obstruction / appreciate ENT input on this - continue current tx for now. Dispo: Palliative care consultation for the family in making decision Continue all other ICU supportive care Awaiting possible to [facility] if accepted vs sub-acute facility. CRITICAL CARE TIME: 40 mins Problems: Subjective 24 Hr Interval Summary Free Text/Dictation Pt transferred out of ICU. No acute events overnight. Exam/Review of Systems Vital Signs Vitals Vital Signs Date Time Temp Pulse Resp B/P Pulse Ox O2 Delivery O2 Flow Rate FiO2 03/13/17 09:40 106 30 100 40 03/13/17 08:21 98.0 123/76 03/12/17 18:00 Mechanical Ventilator Intake and Output 03/12/17 03/12/17 03/13/17 15:00 23:00 07:00 Intake Total 610 ml 260 ml 940 ml Output Total 720 ml 265 ml 580 ml Balance -110 ml -5 ml 360 ml Exam Constitutional: conversing a bit Head: normocephalic Eyes: PERRL, icteric ENMT: trach in place Respiratory: less diminished breath sounds, No wheezing Cardiovascular: regular rate and rhythm, No murmurs/extra sounds Gastrointestinal: other (midline surgical dressing with wound vac / L sided colostomy and drain / colostomy has dark green fluid stool), soft otherwise. PEG in place Musculoskeletal: some swelling (generalized anasarca) Extremities: some pitting pedal edema Results Result Diagram: 03/13/17 0625 03/12/17 0400 Results 24 hrs Laboratory Tests Test 03/13/17 06:25 White Blood Count 12.6 H Red Blood Count 2.69 L Hemoglobin 7.5 L Hematocrit 23.9 L Mean Corpuscular Volume 88.8 Mean Corpuscular Hemoglobin 27.9 L Mean Corpuscular Hemoglobin Concent 31.4 L Red Cell Distribution Width 15.4 H Platelet Count 473 H Mean Platelet Volume 11.3 H Neutrophils % 77.5 H Lymphocytes % 7.1 L Monocytes % 9.3 Eosinophils % 4.2 Basophils % 0.6 Nucleated Red Blood Cells % 0.0 Neutrophils # 9.8 H Lymphocytes # 0.9 Monocytes # 1.2 H Eosinophils # 0.5 Basophils # 0.1 Nucleated Red Blood Cells # 0.0 Medications Medications Current Medications Pantoprazole (Protonix Iv) 40 mg DAILY@06 IV Last administered on 03/13/17t 06: 16; Admin Dose 40 MG; Start 02/01/17 at 06:00 Acetaminophen/ Hydrocodone Bitart ([place] (5/325)) 1 tab Q4H PRN PO PAIN LEVEL 4 -7 Last administered on 02/09/17 18:48; Admin Dose 1 TAB; Start 02/01/17 at 20: 30 Acetaminophen/ Hydrocodone Bitart ([place] (5/325)) 2 tab Q4H PRN PO PAIN LEVEL 7 -10; Start 02/01/17 at 20:30 Bisacodyl (Dulcolax Supp) 10 mg BID PRN [place] CONSTIPATION; Start 02/01/17 at 20: 30 Sodium Biphosphate/ Sodium Phosphate (Fleet Enema) 133 ml BID PRN [place] CONSTIPATION; Start 02/01/17 at 20:30 Acetaminophen (Tylenol Liquid) 650 mg Q4H PRN GTB PAIN AND OR ELEVATED TEMP Last administered on 02/27/17 12:37; Admin Dose 650 MG; Start 02/05/17 at 18:30 IV Flush (NS 10 ml) 10 ml PRN PRN IV IV PROTOCOL; Start 02/07/17 at 14:30 Diphenhydramine HCl 25 mg 25 mg Q6H PRN IV itching Last administered on 00:00; Admin Dose 25 MG; Start 02/07/17 at 20:00 Ondansetron HCl/ Sodium Chloride (Zofran Inj/NS) 54 ml @ 216 mls/hr Q6H PRN IV NAUSEA AND/OR VOMITING; Start 02/09/17 at 11:30 Trimethobenzamide HCl (Tigan) 200 mg Q6H PRN IM NAUSEA AND/OR VOMITING; Start 02/10/17 at 19:30 Morphine Sulfate (morphine) 2 mg Q4H PRN IV pain Last administered on 01:44; Admin Dose 2 MG; Start 02/20/17 at 18:30 Docusate Sodium 100 mg 100 mg QHS PRN NGT For Constipation; Start 02/25/17 at 21:00 Acetaminophen (Ofirmev 1000mg/ 100ml Iv) 100 ml @ 50 mls/hr Q6H PRN IVPB fever Last administered on 03/06/17 20:44; Admin Dose 50 MLS/HR; Start at 07:30 Enoxaparin Sodium (Lovenox) 40 mg DAILY SC Last administered on 03/12/17 08:46 ; Admin Dose 40 MG; Start 03/03/17 at 09:00 Furosemide (Lasix) 20 mg DAILY IV Last administered on 03/13/17 08:22; Admin Dose 20 MG; Start 03/09/17 at 09:00 Thiamine HCl (Vitamin B1) 100 mg AM PO Last administered on 03/13/17 08:20; Admin Dose 100 MG; Start 03/12/17 at 09:00; Stop 03/26/17 at 10:00 Zinc Sulfate (Zinc Sulfate) 220 mg DAILY PO Last administered on 03/13/17 08: 21; Admin Dose 220 MG; Start 03/12/17 at 09:00; Stop 03/26/17 at 10:00 Lorazepam (Ativan) 0.5 mg Q6H PRN IV ANXIETY Last administered on 03/13/17 01: 16; Admin Dose 0.5 MG; Start 03/12/17 at 12:30 SUSAN SANCHEZ March 13, 2017 11:30
--- NOTE | 2017-03-13 13:08 | PN ---
DATE: 03/13/2017 PALLIATIVE CARE FOLLOWUP NOTE Mr. Frye has been moved from the ICU to medical floor on telemetry. There has been no major change in his overall clinical condition. He is communicative, but he is somnolent. He is FULL CODE. I initially spoke to the patient's mother, but she deferred all continuing decision making to the [facility]. The plan is if patient is stable enough, he will eventually be transferred to [place] for pulmon dory rehabilitation ____ participates in the decision making, patient's mother and father, backgroun d, social history, and family members have been discussed on my prior consultation note. The family understanding is very clear and they are pursuing aggressive intervention with the hopes that he wi ll improve and go back to an acceptable quality of life. Overall, I believe that that is a realisti c goal. This transfer, fears, their cultural issues have been addressed also. The patient when he was in the intensive care unit could not make up his own mind and did not have cognitive abilities a t that time to do so. His overall estimated prognosis is good. His palliative performance scale is not indicated at this time. Psychosocial issues, ethical, legal issues have been addressed with kalin morales members. We will continue with current level of care, strongly recommend a POLST form prior to patient being transferred to [facility]. Dictated By: ZAK HEARN MD, LP/YAN Conf#: [id number] DID#: [id number]
--- NOTE | 2017-03-13 13:57 | CONS ---
Date/Time of Note Date/Time of Note DATE: 03/13/17 TIME: 13:51 Assessment/Plan Assessment/Plan Chief Complaint/Hosp Course ID PROGRESS NOTE TOTAL ABX DAY # => OFF ABX DAY #2 s/p Vanco IV, Merrem, Diflucan 24H INTERVAL SUMMARY * Napping, awakens, he has been able to communicate w/writing * No fever, stable off ABX PHYSICAL EXAMINATION: GENERAL: Frail, afebrile, NAD HEENT: Unremarkable NECK: Trach -> secure to Vent CHEST: Equal chest rise bilaterally,course BS HEART: Mild tachycardia ABDOMEN: soft EXTREMITIES: Warm, moves extremities SKIN: Warm, dry ID ASSESSMENT: 46 yo M w/PMHx Crohn's disease admitted with: * POD # 02/01/17 => s/p Laparoscopic exploration,open sigmoid colectomy with Deena end colostomy with liver biopsy segment V * POD # 02/15/17=> S/p exploration of abdomen through recent laparotomy, primary closure of fascia and abdominal lavage. 1. s/p sepsis, status post perforated viscus repair => RESOLVED * S/P ABD abscess = treated * s/p peritonitis w/ 02/01/17MICRO: Abdominal fluid culture growing Proteus mirabilis, E. coli, enterococcus species and strep * CT ABD 02/11: Small volume ascites w/enhancement suggestive of peritonitis 2. Acute recurrent respiratory failure=>Suspect HCAP although all micro is negative * Loculated pleural effusions on CT 02/28/17 * s/p THORA 03/04/17 Micro (-) * s/p Bronch -> BAL (+)Yeast 4. Anasarca: CT 02/28/17 = improved 5. Left frontal ethmoid/maxillary sinusitis w/ possible ostiomeatal unit obstruction. * Mild inflammatory changes of the bilateral mastoid air cells without evidence of coalescent mastoiditis. 6. Status post acute renal failure. 7. LIVER DX: Fatty liver w/necroinflammatory activity, no fibrosis, small iron deposit on stain * CT 02/28/17 -> less fatty liver seen as compared to prior 8. Hx of heavy alcohol and tobacco use just until admission - ?ETOH Withdrawal SXS? 9. Probable underlying COPD 10. Hepatosplenomegaly w/pancreatic fluid margin - QUERY early underlying Cirrhosis based on hx which explains hypoalbuminemia - monitor 11. Anemia with persistent thrombocytopenia, possibly secondary to early liver disease, sepsis and antibiotics * Zosyn was changed to Levaquin. * rule out heparin-induced thrombocytopenia versus other etiologies (-)MRSA Nares INVASIVES: * STEVE, PICC 02/27, ABX ALLERGIES: KNDA CURRENT ABX: TOTAL ABX DAY =. OFF ABX ID RECOMMENDATIONS: 1. Continue to monitor OFF ABX / . . . Problems: Consultation Date/Type/Reason Admit Date/Time Feb 01, 2017 at 03:10 Initial Consult Date 02/02/17 Type of Consultation: ID Referring Provider: VINCE PADGETT Exam/Review of Systems Vital Signs Vitals Vital Signs Date Time Temp Pulse Resp B/P Pulse Ox O2 Delivery O2 Flow Rate FiO2 03/13/17 13:44 103 30 99 40 03/13/17 12:01 97.9 120/75 03/12/17 18:00 Mechanical Ventilator Intake and Output 03/12/17 03/12/17 03/13/17 15:00 23:00 07:00 Intake Total 610 ml 260 ml 940 ml Output Total 720 ml 265 ml 580 ml Balance -110 ml -5 ml 360 ml Results Result Diagram: 03/13/17 0625 03/12/17 0400 Results 24 hrs Laboratory Tests Test 03/13/17 06:25 White Blood Count 12.6 H Red Blood Count 2.69 L Hemoglobin 7.5 L Hematocrit 23.9 L Mean Corpuscular Volume 88.8 Mean Corpuscular Hemoglobin 27.9 L Mean Corpuscular Hemoglobin Concent 31.4 L Red Cell Distribution Width 15.4 H Platelet Count 473 H Mean Platelet Volume 11.3 H Neutrophils % 77.5 H Lymphocytes % 7.1 L Monocytes % 9.3 Eosinophils % 4.2 Basophils % 0.6 Nucleated Red Blood Cells % 0.0 Neutrophils # 9.8 H Lymphocytes # 0.9 Monocytes # 1.2 H Eosinophils # 0.5 Basophils # 0.1 Nucleated Red Blood Cells # 0.0 Medications Medications Current Medications Pantoprazole (Protonix Iv) 40 mg DAILY@06 IV Last administered on 03/13/17t 06: 16; Admin Dose 40 MG; Start 02/01/17 at 06:00 Acetaminophen/ Hydrocodone Bitart ([place] (5/325)) 1 tab Q4H PRN PO PAIN LEVEL 4 -7 Last administered on 02/09/17 18:48; Admin Dose 1 TAB; Start 02/01/17 at 20: 30 Acetaminophen/ Hydrocodone Bitart ([place] (5/325)) 2 tab Q4H PRN PO PAIN LEVEL 7 -10; Start 02/01/17 at 20:30 Bisacodyl (Dulcolax Supp) 10 mg BID PRN [place] CONSTIPATION; Start 02/01/17 at 20: 30 Sodium Biphosphate/ Sodium Phosphate (Fleet Enema) 133 ml BID PRN [place] CONSTIPATION; Start 02/01/17 at 20:30 Acetaminophen (Tylenol Liquid) 650 mg Q4H PRN GTB PAIN AND OR ELEVATED TEMP Last administered on 02/27/17 12:37; Admin Dose 650 MG; Start 02/05/17 at 18:30 IV Flush (NS 10 ml) 10 ml PRN PRN IV IV PROTOCOL; Start 02/07/17 at 14:30 Diphenhydramine HCl 25 mg 25 mg Q6H PRN IV itching Last administered on 00:00; Admin Dose 25 MG; Start 02/07/17 at 20:00 Ondansetron HCl/ Sodium Chloride (Zofran Inj/NS) 54 ml @ 216 mls/hr Q6H PRN IV NAUSEA AND/OR VOMITING; Start 02/09/17 at 11:30 Trimethobenzamide HCl (Tigan) 200 mg Q6H PRN IM NAUSEA AND/OR VOMITING; Start 02/10/17 at 19:30 Morphine Sulfate (morphine) 2 mg Q4H PRN IV pain Last administered on 01:44; Admin Dose 2 MG; Start 02/20/17 at 18:30 Docusate Sodium 100 mg 100 mg QHS PRN NGT For Constipation; Start 02/25/17 at 21:00 Acetaminophen (Ofirmev 1000mg/ 100ml Iv) 100 ml @ 50 mls/hr Q6H PRN IVPB fever Last administered on 03/06/17 20:44; Admin Dose 50 MLS/HR; Start at 07:30 Enoxaparin Sodium (Lovenox) 40 mg DAILY SC Last administered on 03/12/17 08:46 ; Admin Dose 40 MG; Start 03/03/17 at 09:00 Furosemide (Lasix) 20 mg DAILY IV Last administered on 03/13/17 08:22; Admin Dose 20 MG; Start 03/09/17 at 09:00 Thiamine HCl (Vitamin B1) 100 mg AM PO Last administered on 03/13/17 08:20; Admin Dose 100 MG; Start 03/12/17 at 09:00; Stop 03/26/17 at 10:00 Zinc Sulfate (Zinc Sulfate) 220 mg DAILY PO Last administered on 03/13/17 08: 21; Admin Dose 220 MG; Start 03/12/17 at 09:00; Stop 03/26/17 at 10:00 Lorazepam (Ativan) 0.5 mg Q6H PRN IV ANXIETY Last administered on 03/13/17 01: 16; Admin Dose 0.5 MG; Start 03/12/17 at 12:30 DARIUSZ QUINTERO NP March 13, 2017 13:57
--- NOTE | 2017-03-13 16:33 | CONS ---
Date/Time of Note Date/Time of Note DATE: 03/13/17 TIME: 16:32 Consult Date/Type/Reason Admit Date/Time Feb 01, 2017 at 03:10 Initial Consult Date 02/02/17 Type of Consultation: Pulm Ordering Provider: VINCE PADGETT Subjective On vent. No events. Objective Vital Signs Date Time Temp Pulse Resp B/P Pulse Ox O2 Delivery O2 Flow Rate FiO2 03/13/17 16:14 84 03/13/17 15:34 98.4 18 128/82 94 03/13/17 15:13 40 03/12/17 18:00 Mechanical Ventilator Intake and Output 03/12/17 03/12/17 03/13/17 15:00 23:00 07:00 Intake Total 610 ml 260 ml 940 ml Output Total 720 ml 265 ml 580 ml Balance -110 ml -5 ml 360 ml Exam HEENT: Neck supple; no JVD; no LAD; trach site intact CVS: RRR, S1 and S2 CHEST: Clear ABD: Soft, NT, + BS EXT: No c/c/e Results/Medications Result Diagram: 03/13/17 0625 03/12/17 0400 Results 24 hrs Laboratory Tests Test 03/13/17 06:25 White Blood Count 12.6 H Red Blood Count 2.69 L Hemoglobin 7.5 L Hematocrit 23.9 L Mean Corpuscular Volume 88.8 Mean Corpuscular Hemoglobin 27.9 L Mean Corpuscular Hemoglobin Concent 31.4 L Red Cell Distribution Width 15.4 H Platelet Count 473 H Mean Platelet Volume 11.3 H Neutrophils % 77.5 H Lymphocytes % 7.1 L Monocytes % 9.3 Eosinophils % 4.2 Basophils % 0.6 Nucleated Red Blood Cells % 0.0 Neutrophils # 9.8 H Lymphocytes # 0.9 Monocytes # 1.2 H Eosinophils # 0.5 Basophils # 0.1 Nucleated Red Blood Cells # 0.0 Medications Current Medications Pantoprazole (Protonix Iv) 40 mg DAILY@06 IV Last administered on 03/13/17 06: 16; Admin Dose 40 MG; Start 02/01/17 at 06:00 Acetaminophen/ Hydrocodone Bitart ([place] (5/325)) 1 tab Q4H PRN PO PAIN LEVEL 4 -7 Last administered on 02/09/17 18:48; Admin Dose 1 TAB; Start 02/01/17 at 20: 30 Acetaminophen/ Hydrocodone Bitart ([place] (5/325)) 2 tab Q4H PRN PO PAIN LEVEL 7 -10; Start 02/01/17 at 20:30 Bisacodyl (Dulcolax Supp) 10 mg BID PRN [place] CONSTIPATION; Start 02/01/17 at 20: 30 Sodium Biphosphate/ Sodium Phosphate (Fleet Enema) 133 ml BID PRN [place] CONSTIPATION; Start 02/01/17 at 20:30 Acetaminophen (Tylenol Liquid) 650 mg Q4H PRN GTB PAIN AND OR ELEVATED TEMP Last administered on 02/27/17 12:37; Admin Dose 650 MG; Start 02/05/17 at 18:30 IV Flush (NS 10 ml) 10 ml PRN PRN IV IV PROTOCOL; Start 02/07/17 at 14:30 Diphenhydramine HCl 25 mg 25 mg Q6H PRN IV itching Last administered on 00:00; Admin Dose 25 MG; Start 02/07/17 at 20:00 Ondansetron HCl/ Sodium Chloride (Zofran Inj/NS) 54 ml @ 216 mls/hr Q6H PRN IV NAUSEA AND/OR VOMITING; Start 02/09/17 at 11:30 Trimethobenzamide HCl (Tigan) 200 mg Q6H PRN IM NAUSEA AND/OR VOMITING; Start 02/10/17 at 19:30 Morphine Sulfate (morphine) 2 mg Q4H PRN IV pain Last administered on 01:44; Admin Dose 2 MG; Start 02/20/17 at 18:30 Docusate Sodium 100 mg 100 mg QHS PRN NGT For Constipation; Start 02/25/17 at 21:00 Acetaminophen (Ofirmev 1000mg/ 100ml Iv) 100 ml @ 50 mls/hr Q6H PRN IVPB fever Last administered on 03/06/17 20:44; Admin Dose 50 MLS/HR; Start at 07:30 Enoxaparin Sodium (Lovenox) 40 mg DAILY SC Last administered on 03/12/17 08:46 ; Admin Dose 40 MG; Start 03/03/17 at 09:00 Furosemide (Lasix) 20 mg DAILY IV Last administered on 03/13/17 08:22; Admin Dose 20 MG; Start 03/09/17 at 09:00 Thiamine HCl (Vitamin B1) 100 mg AM PO Last administered on 03/13/17 08:20; Admin Dose 100 MG; Start 03/12/17 at 09:00; Stop 03/26/17 at 10:00 Zinc Sulfate (Zinc Sulfate) 220 mg DAILY PO Last administered on 03/13/17 08: 21; Admin Dose 220 MG; Start 03/12/17 at 09:00; Stop 03/26/17 at 10:00 Lorazepam (Ativan) 0.5 mg Q6H PRN IV ANXIETY Last administered on 03/13/17 01: 16; Admin Dose 0.5 MG; Start 03/12/17 at 12:30 Assessment/Plan Additional Assessment/Plan IMP: 1. Patient admitted for perforated diverticular colitis involving sigmoid colon status post laparoscopic resection with colostomy. 2. Complicated postop course punctuated by recurrent respiratory failure requiring multiple re-intubations. 3. Status post complete atelectasis of left lung, status post bronchoscopy with marked radiological improvement. 4. Failure to be weaned from ventilator, status post tracheostomy and G-tube placement. 5. Anemia. 6. Multiple small intra-abdominal abscesses, currently on appropriate antibiotic regimen. RECS: 1. Would benefit from a slow SIMV/PS wean. JAYA POPE MD March 13, 2017 16:33
--- NOTE | 2017-03-13 17:48 | PN ---
Date/Time of Note Date/Time of Note DATE: 03/13/17 TIME: 17:47 Assessment/Plan Lines/Catheters IV Catheter Type (from Nrsg): PICC Line Zeng in Place (from Nrsg): Yes Assessment/Plan Chief Complaint/Hosp Course SP tracheostomy will continue vent support pulm toilet Trach care Problems: Subjective 24 Hr Interval Summary Constitutional: improved Pain Control: mild Exam/Review of Systems Vital Signs Vitals Vital Signs Date Time Temp Pulse Resp B/P Pulse Ox O2 Delivery O2 Flow Rate FiO2 03/13/17 17:34 105 26 99 40 03/13/17 15:34 98.4 128/82 03/12/17 18:00 Mechanical Ventilator Intake and Output 03/12/17 03/12/17 03/13/17 15:00 23:00 07:00 Intake Total 610 ml 260 ml 940 ml Output Total 720 ml 265 ml 580 ml Balance -110 ml -5 ml 360 ml Exam ENMT: mucosa pink and moist, nl external ears & nose, nl lips & teeth, nl nasal mucosa & septum Neck: non-tender, supple Respiratory: clear to auscultation, normal air movement Cardiovascular: nl pulses, regular rate and rhythm Gastrointestinal: nl liver, spleen, non-tender, soft Results Result Diagram: 03/13/17 0625 03/12/17 0400 ROMAN OROZCO MD March 13, 2017 17:48
--- NOTE | 2017-03-13 19:52 | PN ---
Date/Time of Note Date/Time of Note DATE: 03/13/17 TIME: 19:49 Assessment/Plan Lines/Catheters IV Catheter Type (from Nrsg): PICC Line Zeng in Place (from Nrsg): Yes Assessment/Plan Assessment/Plan [facility] Progress Note Date of Service: 03/13/17 Today's Impression & Plan: Overall stable on the vent with trach; tolerating trach and PEG. Abd remains benign. Wound healing well. No indication for acute surgical intervention. Still fairly confused. Able to communicate, but I'm not sure how much he understands about his clinical situation. Remains high risk for complication given perforated colon in the setting of uncontrolled Crohn's. Recovery will take extra time with need for subacute rehab. With above assessment, I've recommended the following for today: 1. Cont current cares in ICU 2. F/u on cultures 3. Cont TPN (goal should be about 1800 to 2000 kCal per day), but start weaning off once tolerating full enteric feeds 4. Pulmonary toilet 5. Cont gentle diuresis to BMP < 200 6. Social work and case management to please start working on [facility] placement 7. Increase activity 8. Increase ICS 9. Wean off broad spec antimicrobials 10. Labs in am 11. Cont current wound care with wound vac 12. F/u on hematology w/u 13. Continue prophylactic anticoagulation (no contraindication from surgical standpoint) Thank you again for your great care of this very pleasant patient and wonderful family. If there are any questions, please feel free to call me at [phone]. TOTAL VISIT TIME: 20 minutes of which more than half was spent in [id number] discussion with the patient, possibly including family, as well as coordination of care between multiple physicians and providers. Disclaimer: Inadvertent spelling or grammatical errors are likely due to EHR/ dictation software use and do not reflect on the overall quality of patient care. Updated Clinical Summary: A very pleasant 46-year-old gentleman with history of Crohn's disease as well as prior surgery for anal fistula approximately 5 years ago, and a torn meniscus repair on the left knee, presenting with abdominal pain associated with a few weeks' duration of diarrhea. S/p an otherwise uncomplicated diagnostic laparoscopy was converted first to hand assist and then to open exploration when perforated sigmoid colon was found and it was resected with a Deena type procedure and end colostomy as well as core needle liver biopsy, segment 5, due to presence of fatty liver disease, lysis of adhesions, and abdominal lavage on 02/01/17. Failed to wean off the vent through 02/06/17. PE was evaluated 02/07/[address] angio and no evidence found. CT abd/pelvis also did not show actionable findings (no abscess; bowel thickening somewhat expected). Extubated 02/07/17. CLINICAL TRIAL ASSOCIATE called early am 02/13/17 with a few minutes coding, requiring intubation and transfer to ICU. Fortunately, mentally appears to be intact and not on pressors. Lactic acid and CO2 normal with benign appearing abd and viable ostomy. Complicated by fascia dehiscence. S/p exploration of abdomen through recent laparotomy, primary closure of fascia and abdominal lavage on 02/15/17. Reintubated 02/25/17 for bronchoscopy to remove mucus plug. Extubated 02/28/17. Re-intubated 03/05/17 due to respiratory failure and hypoxia. 03/05/17: HIV negative and hepatitis B&C neg. Brain MRI did not contribute to the diagnosis, but no mass effect, obvious hemorrhage or other explanatory findings. S/p trach and PEG 03/09/17. COMORBIDITIES: 1. Crohn disease with perforation of sigmoid colon and sepsis. S/p an otherwise uncomplicated diagnostic laparoscopy was converted first to hand assist and then to open exploration when perforated sigmoid colon was found and it was resected with a Deena type procedure and end colostomy as well as core needle liver biopsy, segment 5, due to presence of fatty liver disease, lysis of adhesions, and abdominal lavage on 02/01/17. Complicated by respiratory failure, return trip to ICU and fascia dehiscence. S/p exploration of abdomen through recent laparotomy, primary closure of fascia and abdominal lavage on 02/15. 2. Repair of a fistula approximately 5 years ago. 3. Torn meniscus on the left knee status post repair. 4. S/p trach and PEG 03/09/17 at [facility]. Subjective: No major events or complications; remains on the vent; seems reasonably interactive; difficult to clearly communicate with him with the vent, but does not report any major abdominal pain, SOB, CP or nausea; writes down questions. Asked me about why he has not seen his son. Also asked me what happened to him. Objective: Vitals: See below Exam: GENERAL: On exam, the patient was laying in bed and appeared to be comfortable and in no acute distress. On the vent with trach. Eyes open and responds to voice. ABDOMEN: Soft, nontender and nondistended. Incision wound vac dressings clean without any evidence of obvious erythema, edema, discharge, or hernia. Wound vac with no sig drainage. Surgery drain site clean. Ostomy pink and viable; some air and stool in the bag. There are no peritoneal signs or guarding. PEG in place and tube feeing ongoing. SKIN: Skin appears to be pink and feels warm to touch. NEUROLOGIC: Patient's eyes open and responds to voice. and follows simple commands appropriately. Writes questions down on a paper pad; legible; words make sense, but logic is questionable. Exam/Review of Systems Vital Signs Vitals Vital Signs Date Time Temp Pulse Resp B/P Pulse Ox O2 Delivery O2 Flow Rate FiO2 03/13/17 17:34 105 26 99 40 03/13/17 15:34 98.4 128/82 03/12/17 18:00 Mechanical Ventilator Intake and Output 03/12/17 03/12/17 03/13/17 15:00 23:00 07:00 Intake Total 610 ml 260 ml 940 ml Output Total 720 ml 265 ml 580 ml Balance -110 ml -5 ml 360 ml Results Result Diagram: 03/13/17 0625 03/12/17 0400 TI HILTON M.D. March 13, 2017 19:51
[2017-03-13] MEDS: HYDROCODONE/APAP (5/325) TAB PO PRN (22:39)
[2017-03-14] VITALS (24 sets, daily range): BP systolic 115–126; BP diastolic 68–82; PULSE 86–100; RESP 15–28
[2017-03-14] MEDS: ALBUTEROL 18 GM INHALER INH SCH ×4 (01:42→20:22)
[2017-03-14] MEDS: ACETYLCYSTEINE 20% 4 ML VIAL NEB SCH ×4 (01:42→20:22)
[2017-03-14] MEDS: IPRATROPIUM (HFA) 12.9 GM INHALER INH SCH ×4 (01:42→20:22)
[2017-03-14] MEDS: PANTOPRAZOLE 40 MG INJ IV SCH (05:32)
[2017-03-14 06:46] LABS: ADD SCAN DIFF NO
[2017-03-14 07:12] LABS: BASOPHILS % 0.3 % (0.0-2.0); EOSINOPHILS # 0.5 10^3/ul (0.0-0.5); EOSINOPHILS % 4.3 % (0.0-7.0); HEMATOCRIT 23.8 % (42.0-52.0); HEMOGLOBIN 7.4 g/dl (14.0-18.0); LYMPHOCYTES # 0.9 10^3/ul (0.8-2.9); LYMPHOCYTES % 7.6 % (15.0-51.0); MEAN CORPUSCULAR HEMOGLOBIN 27.2 pg (29.0-33.0); MEAN CORPUSCULAR HGB CONC 31.1 g/dl (32.0-37.0); MEAN CORPUSCULAR VOLUME 87.5 fl (82.0-101.0); MEAN PLATELET VOLUME 11.3 fl (7.4-10.4); MONOCYTE # 1.2 10^3/ul (0.3-0.9); MONOCYTES % 9.4 % (0.0-11.0); NEUTROPHIL # 9.5 10^3/ul (1.6-7.5); NEUTROPHILS % 77.2 % (39.0-77.0); PLATELET COUNT 432 10^3/UL (140-415); RED BLOOD COUNT 2.72 10^6/ul (4.70-6.10); RED CELL DISTRIBUTION WIDTH 15.4 % (11.5-14.5); WHITE BLOOD COUNT 12.3 10^3/ul (4.8-10.8)
[2017-03-14] MEDS: THIAMINE 100 MG TAB PO SCH (08:47)
[2017-03-14] MEDS: ZINC SULFATE 220 MG CAP PO SCH (08:47)
[2017-03-14] MEDS: FUROSEMIDE 20 MG INJ IV SCH (08:48)
[2017-03-14] MEDS: ENOXAPARIN 40 MG/0.4 ML SYG SC SCH (08:52)
--- NOTE | 2017-03-14 10:20 | PN ---
Date/Time of Note Date/Time of Note DATE: 03/14/17 TIME: 10:19 Assessment/Plan VTE Prophylaxis VTE Prophylaxis Intervention: SCD's Lines/Catheters IV Catheter Type (from Nrs): PICC Line Central line still needed: No Urinary Cath still in place: Yes Reason Cath still needed: urinary retention Assessment/Plan Assessment/Plan Perforated colon status post surgery Severe sepsis Respiratory failure-status post tracheostomy Low normal ejection fraction 50% Acute decompensated diastolic congestive heart failure-improved Crohn's disease Acute blood loss anemia -Diuretics changed to via the PEG. Continue maintenance diuretics as needed with close monitoring of renal function and electrolytes. Maintain potassium above 4.0 and magnesium above 2.0. Subjective 24 Hr Interval Summary Free Text/Dictation The patient with no change Exam/Review of Systems Vital Signs Vitals Vital Signs Date Time Temp Pulse Resp B/P Pulse Ox O2 Delivery O2 Flow Rate FiO2 03/14/17 09:02 102 98 23 03/14/17 08:06 97.9 18 117/73 03/12/17 18:00 Mechanical Ventilator Intake and Output 03/13/17 03/13/17 03/14/17 15:00 23:00 07:00 Intake Total 900 ml 1140 ml Output Total 930 ml 950 ml Balance -30 ml 190 ml Results Result Diagram: 03/14/17 0510 03/12/17 0400 Results 24 hrs Laboratory Tests Test 03/14/17 05:10 White Blood Count 12.3 H Red Blood Count 2.72 L Hemoglobin 7.4 L Hematocrit 23.8 L Mean Corpuscular Volume 87.5 Mean Corpuscular Hemoglobin 27.2 L Mean Corpuscular Hemoglobin Concent 31.1 L Red Cell Distribution Width 15.4 H Platelet Count 432 H Mean Platelet Volume 11.3 H Neutrophils % 77.2 H Lymphocytes % 7.6 L Monocytes % 9.4 Eosinophils % 4.3 Basophils % 0.3 Nucleated Red Blood Cells % 0.0 Neutrophils # 9.5 H Lymphocytes # 0.9 Monocytes # 1.2 H Eosinophils # 0.5 Basophils # 0.0 Nucleated Red Blood Cells # 0.0 Medications Medications Current Medications Pantoprazole (Protonix Iv) 40 mg DAILY@06 IV Last administered on 03/14/17t 05: 32; Admin Dose 40 MG; Start 02/01/17 at 06:00 Acetaminophen/ Hydrocodone Bitart ([place] (5/325)) 1 tab Q4H PRN PO PAIN LEVEL 4 -7 Last administered on 02/09/17 18:48; Admin Dose 1 TAB; Start 02/01/17 at 20: 30 Acetaminophen/ Hydrocodone Bitart ([place] (5/325)) 2 tab Q4H PRN PO PAIN LEVEL 7 -10 Last administered on 03/13/17 22:39; Admin Dose 2 TAB; Start 02/01/17 at 20 :30 Bisacodyl (Dulcolax Supp) 10 mg BID PRN [place] CONSTIPATION; Start 02/01/17 at 20: 30 Sodium Biphosphate/ Sodium Phosphate (Fleet Enema) 133 ml BID PRN [place] CONSTIPATION; Start 02/01/17 at 20:30 Acetaminophen (Tylenol Liquid) 650 mg Q4H PRN GTB PAIN AND OR ELEVATED TEMP Last administered on 02/27/17 12:37; Admin Dose 650 MG; Start 02/05/17 at 18:30 IV Flush (NS 10 ml) 10 ml PRN PRN IV IV PROTOCOL; Start 02/07/17 at 14:30 Diphenhydramine HCl 25 mg 25 mg Q6H PRN IV itching Last administered on 00:00; Admin Dose 25 MG; Start 02/07/17 at 20:00 Ondansetron HCl/ Sodium Chloride (Zofran Inj/NS) 54 ml @ 216 mls/hr Q6H PRN IV NAUSEA AND/OR VOMITING; Start 02/09/17 at 11:30 Trimethobenzamide HCl (Tigan) 200 mg Q6H PRN IM NAUSEA AND/OR VOMITING; Start 02/10/17 at 19:30 Morphine Sulfate (morphine) 2 mg Q4H PRN IV pain Last administered on 01:44; Admin Dose 2 MG; Start 02/20/17 at 18:30 Docusate Sodium 100 mg 100 mg QHS PRN NGT For Constipation; Start 02/25/17 at 21:00 Acetaminophen (Ofirmev 1000mg/ 100ml Iv) 100 ml @ 50 mls/hr Q6H PRN IVPB fever Last administered on 03/06/17 20:44; Admin Dose 50 MLS/HR; Start at 07:30 Enoxaparin Sodium (Lovenox) 40 mg DAILY SC Last administered on 03/14/17 08:52 ; Admin Dose 40 MG; Start 03/03/17 at 09:00 Furosemide (Lasix) 20 mg DAILY IV Last administered on 03/14/17 08:48; Admin Dose 20 MG; Start 03/09/17 at 09:00 Thiamine HCl (Vitamin B1) 100 mg AM PO Last administered on 03/14/17 08:47; Admin Dose 100 MG; Start 03/12/17 at 09:00; Stop 03/26/17 at 10:00 Zinc Sulfate (Zinc Sulfate) 220 mg DAILY PO Last administered on 03/14/17 08: 47; Admin Dose 220 MG; Start 03/12/17 at 09:00; Stop 03/26/17 at 10:00 Lorazepam (Ativan) 0.5 mg Q6H PRN IV ANXIETY Last administered on 03/13/17 01: 16; Admin Dose 0.5 MG; Start 03/12/17 at 12:30 FILEMON WYNNE MD March 14, 2017 10:20
--- NOTE | 2017-03-14 10:48 | PN ---
Date/Time of Note Date/Time of Note DATE: 03/14/17 TIME: 10:44 Assessment/Plan VTE Prophylaxis VTE Prophylaxis Intervention: SCD's Lines/Catheters IV Catheter Type (from Nrs): PICC Line Central line still needed: Yes Urinary Cath still in place: Yes Reason Cath still needed: urinary retention Assessment/Plan Assessment/Plan Dysphagia S/P PEG placement Perforated sigmoid colon * Laparoscopic exploration,open sigmoid colectomy with Deena end colostomy with liver biopsy segment V h/o Crohn's disease Respiratory failure Thrombocytopenia Liver Cirrhosis Anemia hemoglobin Atelectasis,compressive managed by pulmonary Plan Continue present management Will reevaluate for Crohn's disease once recovered from surgery will sign out for now but if needed were available Subjective 24 Hr Interval Summary Free Text/Dictation * Course reviewed with RN * Patient seen and examined * Tolerating tube feeding Exam/Review of Systems Vital Signs Vitals Vital Signs Date Time Temp Pulse Resp B/P Pulse Ox O2 Delivery O2 Flow Rate FiO2 03/14/17 09:02 102 98 23 03/14/17 08:06 97.9 18 117/73 03/12/17 18:00 Mechanical Ventilator Intake and Output 03/13/17 03/13/17 03/14/17 15:00 23:00 07:00 Intake Total 900 ml 1140 ml Output Total 930 ml 950 ml Balance -30 ml 190 ml Exam Constitutional: frail Neck: non-tender, supple Respiratory: clear to auscultation, normal air movement Cardiovascular: nl pulses, regular rate and rhythm Gastrointestinal: non-tender, other (PEG), soft Musculoskeletal: nl extremities to inspection Results Result Diagram: 03/14/17 0510 03/12/17 0400 Results 24 hrs Laboratory Tests Test 03/14/17 05:10 White Blood Count 12.3 H Red Blood Count 2.72 L Hemoglobin 7.4 L Hematocrit 23.8 L Mean Corpuscular Volume 87.5 Mean Corpuscular Hemoglobin 27.2 L Mean Corpuscular Hemoglobin Concent 31.1 L Red Cell Distribution Width 15.4 H Platelet Count 432 H Mean Platelet Volume 11.3 H Neutrophils % 77.2 H Lymphocytes % 7.6 L Monocytes % 9.4 Eosinophils % 4.3 Basophils % 0.3 Nucleated Red Blood Cells % 0.0 Neutrophils # 9.5 H Lymphocytes # 0.9 Monocytes # 1.2 H Eosinophils # 0.5 Basophils # 0.0 Nucleated Red Blood Cells # 0.0 Medications Medications Current Medications Pantoprazole (Protonix Iv) 40 mg DAILY@06 IV Last administered on 03/14/17 05: 32; Admin Dose 40 MG; Start 02/01/17 at 06:00 Acetaminophen/ Hydrocodone Bitart ([place] (5/325)) 1 tab Q4H PRN PO PAIN LEVEL 4 -7 Last administered on 02/09/17 18:48; Admin Dose 1 TAB; Start 02/01/17 at 20: 30 Acetaminophen/ Hydrocodone Bitart ([place] (5/325)) 2 tab Q4H PRN PO PAIN LEVEL 7 -10 Last administered on 03/13/17 22:39; Admin Dose 2 TAB; Start 02/01/17 at 20 :30 Bisacodyl (Dulcolax Supp) 10 mg BID PRN [place] CONSTIPATION; Start 02/01/17 at 20: 30 Sodium Biphosphate/ Sodium Phosphate (Fleet Enema) 133 ml BID PRN [place] CONSTIPATION; Start 02/01/17 at 20:30 Acetaminophen (Tylenol Liquid) 650 mg Q4H PRN GTB PAIN AND OR ELEVATED TEMP Last administered on 02/27/17 12:37; Admin Dose 650 MG; Start 02/05/17 at 18:30 IV Flush (NS 10 ml) 10 ml PRN PRN IV IV PROTOCOL; Start 02/07/17 at 14:30 Diphenhydramine HCl 25 mg 25 mg Q6H PRN IV itching Last administered on 00:00; Admin Dose 25 MG; Start 02/07/17 at 20:00 Ondansetron HCl/ Sodium Chloride (Zofran Inj/NS) 54 ml @ 216 mls/hr Q6H PRN IV NAUSEA AND/OR VOMITING; Start 02/09/17 at 11:30 Trimethobenzamide HCl (Tigan) 200 mg Q6H PRN IM NAUSEA AND/OR VOMITING; Start 02/10/17 at 19:30 Morphine Sulfate (morphine) 2 mg Q4H PRN IV pain Last administered on 01:44; Admin Dose 2 MG; Start 02/20/17 at 18:30 Docusate Sodium 100 mg 100 mg QHS PRN NGT For Constipation; Start 02/25/17 at 21:00 Acetaminophen (Ofirmev 1000mg/ 100ml Iv) 100 ml @ 50 mls/hr Q6H PRN IVPB fever Last administered on 03/06/17 20:44; Admin Dose 50 MLS/HR; Start at 07:30 Enoxaparin Sodium (Lovenox) 40 mg DAILY SC Last administered on 03/14/17 08:52 ; Admin Dose 40 MG; Start 03/03/17 at 09:00 Furosemide (Lasix) 20 mg DAILY IV Last administered on 03/14/17 08:48; Admin Dose 20 MG; Start 03/09/17 at 09:00 Thiamine HCl (Vitamin B1) 100 mg AM PO Last administered on 03/14/17 08:47; Admin Dose 100 MG; Start 03/12/17 at 09:00; Stop 03/26/17 at 10:00 Zinc Sulfate (Zinc Sulfate) 220 mg DAILY PO Last administered on 03/14/17 08: 47; Admin Dose 220 MG; Start 03/12/17 at 09:00; Stop 03/26/17 at 10:00 Lorazepam (Ativan) 0.5 mg Q6H PRN IV ANXIETY Last administered on 03/13/17 01: 16; Admin Dose 0.5 MG; Start 03/12/17 at 12:30 SANDRA DAVIS MD March 14, 2017 10:48
--- NOTE | 2017-03-14 10:56 | PN ---
Date/Time of Note Date/Time of Note DATE: 03/14/17 TIME: 10:54 Assessment/Plan VTE Prophylaxis VTE Prophylaxis Intervention: LMWH Lines/Catheters IV Catheter Type (from [facility]): PICC Line Central line still needed: Yes Urinary Cath still in place: Yes Reason Cath still needed: urinary retention Assessment/Plan Chief Complaint/Hosp Course Assessment/Plan: 46M with: 1. Perforated sigmoid colon 2/2 Severe Crohn's colitis * S/p Urgent Open Cronin's procedure with end colostomy, liver biopsy and abdominal lavage 02/01/17P * S/p post operative paracolic abscess drained via CT 02/14/[address] * S/p Exploration of abdomen through recent laparotomy site with closure of fascia done 02/15/17 for Fascia dehiscence * PEG placed 4 days ago - continue PEG feeds. 2. Recurrent Resp failure: Extubated then reintubated 02/13, extubated, then reintubated 02/25/17, then extubated 02/27 and reintubated 03/04 * Status post bronchoscopy with clearance of extensive secretions in the left mainstem bronchus with improved aeration radiographically 02/25 * Pulm concerned about possible neuromuscular injury contributing to recurrent resp failure - s/p trach placement 5 days ago - f/u rec's 3. Exacerbation of Crohn's disease with acute colitis and diarrhea Cultures earlier were growing ecoli / proteus / enterococcus 4. Multifocal PNA + Mook Pleural effusions - Effusions likely hydrostatic from hypoalbuminemia. + fevers - monitor, ID managing abx and antifungal 5. Severe Sepsis with lactic acidosis 2/2 severe colitis / PNA - Continue abx per ID 6. S/p Systemic shock (hypovolemic +septic) - again, see # 5, abx: Resolved 7. TPN therapy for low prealbumin: monitor 8. Hx of heavy alcohol and tobacco use just until admission - monitor 9. Probable underlying COPD and Cirrhosis based on hx which explains hypoalbuminemia and anasarca - monitor 10. Severe recurrent anemia likely 2/2 occult blood loss from multiple sources : PRN transfusions 11. Hypomagnesemia - replete as needed 12. Encephalopathy / Confusion, although less today. patient may have suffered some anoxic brain insult during the course of his hospitalization. Appreciate Neuro consult - likely multifactorial. Also MRI concerning for possible ostiomeatal unit obstruction / appreciate ENT input on this - continue current tx for now. Dispo: Palliative care consultation for the family in making decision Continue all other ICU supportive care Awaiting possible to [facility] if accepted vs sub-acute facility. CRITICAL CARE TIME: 40 mins Problems: Subjective 24 Hr Interval Summary Free Text/Dictation No acute events overnight, appears more alert today. Exam/Review of Systems Vital Signs Vitals Vital Signs Date Time Temp Pulse Resp B/P Pulse Ox O2 Delivery O2 Flow Rate FiO2 03/14/17 09:02 102 98 23 03/14/17 08:06 97.9 18 117/73 03/12/17 18:00 Mechanical Ventilator Intake and Output 03/13/17 03/13/17 03/14/17 15:00 23:00 07:00 Intake Total 900 ml 1140 ml Output Total 930 ml 950 ml Balance -30 ml 190 ml Exam Constitutional: conversing a bit Head: normocephalic Eyes: PERRL, icteric ENMT: trach in place Respiratory: less diminished breath sounds, No wheezing Cardiovascular: regular rate and rhythm, No murmurs/extra sounds Gastrointestinal: other (midline surgical dressing with wound vac / L sided colostomy and drain / colostomy has dark green fluid stool), soft otherwise. PEG in place Musculoskeletal: some swelling (generalized anasarca) Extremities: some pitting pedal edema Results Result Diagram: 03/14/17 0510 03/12/17 0400 Results 24 hrs Laboratory Tests Test 03/14/17 05:10 White Blood Count 12.3 H Red Blood Count 2.72 L Hemoglobin 7.4 L Hematocrit 23.8 L Mean Corpuscular Volume 87.5 Mean Corpuscular Hemoglobin 27.2 L Mean Corpuscular Hemoglobin Concent 31.1 L Red Cell Distribution Width 15.4 H Platelet Count 432 H Mean Platelet Volume 11.3 H Neutrophils % 77.2 H Lymphocytes % 7.6 L Monocytes % 9.4 Eosinophils % 4.3 Basophils % 0.3 Nucleated Red Blood Cells % 0.0 Neutrophils # 9.5 H Lymphocytes # 0.9 Monocytes # 1.2 H Eosinophils # 0.5 Basophils # 0.0 Nucleated Red Blood Cells # 0.0 Medications Medications Current Medications Pantoprazole (Protonix Iv) 40 mg DAILY@06 IV Last administered on 03/14/17t 05: 32; Admin Dose 40 MG; Start 02/01/17 at 06:00 Acetaminophen/ Hydrocodone Bitart ([place] (5/325)) 1 tab Q4H PRN PO PAIN LEVEL 4 -7 Last administered on 02/09/17 18:48; Admin Dose 1 TAB; Start 02/01/17 at 20: 30 Acetaminophen/ Hydrocodone Bitart ([place] (5/325)) 2 tab Q4H PRN PO PAIN LEVEL 7 -10 Last administered on 03/13/17 22:39; Admin Dose 2 TAB; Start 02/01/17 at 20 :30 Bisacodyl (Dulcolax Supp) 10 mg BID PRN [place] CONSTIPATION; Start 02/01/17 at 20: 30 Sodium Biphosphate/ Sodium Phosphate (Fleet Enema) 133 ml BID PRN [place] CONSTIPATION; Start 02/01/17 at 20:30 Acetaminophen (Tylenol Liquid) 650 mg Q4H PRN GTB PAIN AND OR ELEVATED TEMP Last administered on 02/27/17 12:37; Admin Dose 650 MG; Start 02/05/17 at 18:30 IV Flush (NS 10 ml) 10 ml PRN PRN IV IV PROTOCOL; Start 02/07/17 at 14:30 Diphenhydramine HCl 25 mg 25 mg Q6H PRN IV itching Last administered on 00:00; Admin Dose 25 MG; Start 02/07/17 at 20:00 Ondansetron HCl/ Sodium Chloride (Zofran Inj/NS) 54 ml @ 216 mls/hr Q6H PRN IV NAUSEA AND/OR VOMITING; Start 02/09/17 at 11:30 Trimethobenzamide HCl (Tigan) 200 mg Q6H PRN IM NAUSEA AND/OR VOMITING; Start 02/10/17 at 19:30 Morphine Sulfate (morphine) 2 mg Q4H PRN IV pain Last administered on 01:44; Admin Dose 2 MG; Start 02/20/17 at 18:30 Docusate Sodium 100 mg 100 mg QHS PRN NGT For Constipation; Start 02/25/17 at 21:00 Acetaminophen (Ofirmev 1000mg/ 100ml Iv) 100 ml @ 50 mls/hr Q6H PRN IVPB fever Last administered on 03/06/17 20:44; Admin Dose 50 MLS/HR; Start at 07:30 Enoxaparin Sodium (Lovenox) 40 mg DAILY SC Last administered on 03/14/17 08:52 ; Admin Dose 40 MG; Start 03/03/17 at 09:00 Furosemide (Lasix) 20 mg DAILY IV Last administered on 03/14/17 08:48; Admin Dose 20 MG; Start 03/09/17 at 09:00 Thiamine HCl (Vitamin B1) 100 mg AM PO Last administered on 03/14/17 08:47; Admin Dose 100 MG; Start 03/12/17 at 09:00; Stop 03/26/17 at 10:00 Zinc Sulfate (Zinc Sulfate) 220 mg DAILY PO Last administered on 03/14/17 08: 47; Admin Dose 220 MG; Start 03/12/17 at 09:00; Stop 03/26/17 at 10:00 Lorazepam (Ativan) 0.5 mg Q6H PRN IV ANXIETY Last administered on 03/13/17 01: 16; Admin Dose 0.5 MG; Start 03/12/17 at 12:30 SUSAN SANCHEZ March 14, 2017 10:56
--- NOTE | 2017-03-14 13:33 | CONS ---
Date/Time of Note Date/Time of Note DATE: 03/14/17 TIME: 13:28 Consult Date/Type/Reason Admit Date/Time Feb 01, 2017 at 03:10 Initial Consult Date 02/02/17 Type of Consultation: Pulm Ordering Provider: VINCE PADGETT Subjective Tolerating SIMV with PS Objective Vital Signs Date Time Temp Pulse Resp B/P Pulse Ox O2 Delivery O2 Flow Rate FiO2 03/14/17 12:06 100 03/14/17 11:45 98.8 18 124/68 96 03/14/17 11:21 23 03/12/17 18:00 Mechanical Ventilator Intake and Output 03/13/17 03/13/17 03/14/17 15:00 23:00 07:00 Intake Total 900 ml 1140 ml Output Total 930 ml 950 ml Balance -30 ml 190 ml Exam HEENT: Neck supple; no JVD; no LAD; trach site intact CVS: RRR, S1 and S2 CHEST: Clear ABD: Soft, NT, + BS EXT: No c/c/e Results/Medications Result Diagram: 03/14/17 0510 03/12/17 0400 Results 24 hrs Laboratory Tests Test 03/14/17 05:10 White Blood Count 12.3 H Red Blood Count 2.72 L Hemoglobin 7.4 L Hematocrit 23.8 L Mean Corpuscular Volume 87.5 Mean Corpuscular Hemoglobin 27.2 L Mean Corpuscular Hemoglobin Concent 31.1 L Red Cell Distribution Width 15.4 H Platelet Count 432 H Mean Platelet Volume 11.3 H Neutrophils % 77.2 H Lymphocytes % 7.6 L Monocytes % 9.4 Eosinophils % 4.3 Basophils % 0.3 Nucleated Red Blood Cells % 0.0 Neutrophils # 9.5 H Lymphocytes # 0.9 Monocytes # 1.2 H Eosinophils # 0.5 Basophils # 0.0 Nucleated Red Blood Cells # 0.0 Medications Current Medications Pantoprazole (Protonix Iv) 40 mg DAILY@06 IV Last administered on 03/14/17 05: 32; Admin Dose 40 MG; Start 02/01/17 at 06:00 Acetaminophen/ Hydrocodone Bitart ([place] (5/325)) 1 tab Q4H PRN PO PAIN LEVEL 4 -7 Last administered on 02/09/17 18:48; Admin Dose 1 TAB; Start 02/01/17 at 20: 30 Acetaminophen/ Hydrocodone Bitart ([place] (5/325)) 2 tab Q4H PRN PO PAIN LEVEL 7 -10 Last administered on 03/13/17 22:39; Admin Dose 2 TAB; Start 02/01/17 at 20 :30 Bisacodyl (Dulcolax Supp) 10 mg BID PRN [place]; Start 02/01/17 at 20: 30 Sodium Biphosphate/ Sodium Phosphate (Fleet Enema) 133 ml BID PRN [place]; Start 02/01/17 at 20:30 Acetaminophen (Tylenol Liquid) 650 mg Q4H PRN GTB PAIN AND OR ELEVATED TEMP Last administered on 02/27/17 12:37; Admin Dose 650 MG; Start 02/05/17 at 18:30 IV Flush (NS 10 ml) 10 ml PRN PRN IV IV PROTOCOL; Start 02/07/17 at 14:30 Diphenhydramine HCl 25 mg 25 mg Q6H PRN IV itching Last administered on 00:00; Admin Dose 25 MG; Start 02/07/17 at 20:00 Ondansetron HCl/ Sodium Chloride (Zofran Inj/NS) 54 ml @ 216 mls/hr Q6H PRN IV NAUSEA AND/OR VOMITING; Start 02/09/17 at 11:30 Trimethobenzamide HCl (Tigan) 200 mg Q6H PRN IM NAUSEA AND/OR VOMITING; Start 02/10/17 at 19:30 Morphine Sulfate (morphine) 2 mg Q4H PRN IV pain Last administered on 01:44; Admin Dose 2 MG; Start 02/20/17 at 18:30 Docusate Sodium 100 mg 100 mg QHS PRN NGT For Constipation; Start 02/25/17 at 21:00 Acetaminophen (Ofirmev 1000mg/ 100ml Iv) 100 ml @ 50 mls/hr Q6H PRN IVPB fever Last administered on 03/06/17 20:44; Admin Dose 50 MLS/HR; Start at 07:30 Enoxaparin Sodium (Lovenox) 40 mg DAILY SC Last administered on 03/14/17 08:52 ; Admin Dose 40 MG; Start 03/03/17 at 09:00 Furosemide (Lasix) 20 mg DAILY IV Last administered on 03/14/17 08:48; Admin Dose 20 MG; Start 03/09/17 at 09:00 Thiamine HCl (Vitamin B1) 100 mg AM PO Last administered on 03/14/17 08:47; Admin Dose 100 MG; Start 03/12/17 at 09:00; Stop 03/26/17 at 10:00 Zinc Sulfate (Zinc Sulfate) 220 mg DAILY PO Last administered on 03/14/17 08: 47; Admin Dose 220 MG; Start 03/12/17 at 09:00; Stop 03/26/17 at 10:00 Lorazepam (Ativan) 0.5 mg Q6H PRN IV ANXIETY Last administered on 03/13/17 01: 16; Admin Dose 0.5 MG; Start 03/12/17 at 12:30 Assessment/Plan Additional Assessment/Plan IMP: 1. Patient admitted for perforated diverticular colitis involving sigmoid colon status post laparoscopic resection with colostomy. 2. Complicated postop course punctuated by recurrent respiratory failure requiring multiple re-intubations. 3. Status post complete atelectasis of left lung, status post bronchoscopy with marked radiological improvement. 4. Failure to be weaned from ventilator, status post tracheostomy and G-tube placement. 5. Anemia. 6. Multiple small intra-abdominal abscesses, currently on appropriate antibiotic regimen. RECS: 1. Reduce SIMV rate to 4; Cont PS 10 JAYA POPE MD March 14, 2017 13:33
--- NOTE | 2017-03-14 16:17 | CONS ---
Date/Time of Note Date/Time of Note DATE: 03/14/17 TIME: 16:16 Assessment/Plan Assessment/Plan Chief Complaint/Hosp Course ID PROGRESS NOTE TOTAL ABX DAY # => OFF ABX DAY #3 s/p Vanco IV, Merrem, Diflucan 24H INTERVAL SUMMARY * Stable off ABX -- generalized weakness, weaning from Vent, Napping, awakens, he has been able to communicate w/writing * No fever, stable off ABX PHYSICAL EXAMINATION: GENERAL: Frail, afebrile, NAD HEENT: Unremarkable NECK: Trach -> secure to Vent CHEST: Equal chest rise bilaterally,course BS HEART: Mild tachycardia ABDOMEN: soft EXTREMITIES: Warm, moves extremities SKIN: Warm, dry ID ASSESSMENT: 46 yo M w/PMHx Crohn's disease admitted with: * POD # 02/01/17 => s/p Laparoscopic exploration,open sigmoid colectomy with Deena end colostomy with liver biopsy segment V * POD # 02/15/17=> S/p exploration of abdomen through recent laparotomy, primary closure of fascia and abdominal lavage. 1. s/p sepsis, status post perforated viscus repair => RESOLVED * S/P ABD abscess = treated * s/p peritonitis w/ 02/01/17MICRO: Abdominal fluid culture growing Proteus mirabilis, E. coli, enterococcus species and strep * CT ABD 02/11: Small volume ascites w/enhancement suggestive of peritonitis 2. Acute recurrent respiratory failure=>Suspect HCAP although all micro is negative * Loculated pleural effusions on CT 02/28/17 * s/p THORA 03/04/17 Micro (-) * s/p Bronch -> BAL (+)Yeast 4. Anasarca: CT 02/28/17 = improved 5. Left frontal ethmoid/maxillary sinusitis w/ possible ostiomeatal unit obstruction. * Mild inflammatory changes of the bilateral mastoid air cells without evidence of coalescent mastoiditis. 6. Status post acute renal failure. 7. LIVER DX: Fatty liver w/necroinflammatory activity, no fibrosis, small iron deposit on stain * CT 02/28/17 -> less fatty liver seen as compared to prior 8. Hx of heavy alcohol and tobacco use just until admission - ?ETOH Withdrawal SXS? 9. Probable underlying COPD 10. Hepatosplenomegaly w/pancreatic fluid margin - QUERY early underlying Cirrhosis based on hx which explains hypoalbuminemia - monitor 11. Anemia with persistent thrombocytopenia, possibly secondary to early liver disease, sepsis and antibiotics * Zosyn was changed to Levaquin. * rule out heparin-induced thrombocytopenia versus other etiologies (-)MRSA Nares INVASIVES: * STEVE, PICC 02/27, Trach ABX ALLERGIES: KNDA CURRENT ABX: TOTAL ABX DAY =. OFF ABX ID RECOMMENDATIONS: 1. Continue to monitor OFF ABX / . . . Problems: Consultation Date/Type/Reason Admit Date/Time Feb 01, 2017 at 03:10 Initial Consult Date 02/02/17 Type of Consultation: ID Referring Provider: VINCE PADGETT Exam/Review of Systems Vital Signs Vitals Vital Signs Date Time Temp Pulse Resp B/P Pulse Ox O2 Delivery O2 Flow Rate FiO2 03/14/17 16:12 94 03/14/17 15:44 98.1 18 126/82 97 03/14/17 15:35 35 03/12/17 18:00 Mechanical Ventilator Intake and Output 03/13/17 03/13/17 03/14/17 15:00 23:00 07:00 Intake Total 900 ml 1140 ml Output Total 930 ml 950 ml Balance -30 ml 190 ml Results Result Diagram: 03/14/17 0510 03/12/17 0400 Results 24 hrs Laboratory Tests Test 03/14/17 05:10 White Blood Count 12.3 H Red Blood Count 2.72 L Hemoglobin 7.4 L Hematocrit 23.8 L Mean Corpuscular Volume 87.5 Mean Corpuscular Hemoglobin 27.2 L Mean Corpuscular Hemoglobin Concent 31.1 L Red Cell Distribution Width 15.4 H Platelet Count 432 H Mean Platelet Volume 11.3 H Neutrophils % 77.2 H Lymphocytes % 7.6 L Monocytes % 9.4 Eosinophils % 4.3 Basophils % 0.3 Nucleated Red Blood Cells % 0.0 Neutrophils # 9.5 H Lymphocytes # 0.9 Monocytes # 1.2 H Eosinophils # 0.5 Basophils # 0.0 Nucleated Red Blood Cells # 0.0 Medications Medications Current Medications Pantoprazole (Protonix Iv) 40 mg DAILY@06 IV Last administered on 03/14/17t 05: 32; Admin Dose 40 MG; Start 02/01/17 at 06:00 Acetaminophen/ Hydrocodone Bitart ([place] (5/325)) 1 tab Q4H PRN PO PAIN LEVEL 4 -7 Last administered on 02/09/17 18:48; Admin Dose 1 TAB; Start 02/01/17 at 20: 30 Acetaminophen/ Hydrocodone Bitart ([place] (5/325)) 2 tab Q4H PRN PO PAIN LEVEL 7 -10 Last administered on 03/13/17 22:39; Admin Dose 2 TAB; Start 02/01/17 at 20 :30 Bisacodyl (Dulcolax Supp) 10 mg BID PRN [place]; Start 02/01/17 at 20: 30 Sodium Biphosphate/ Sodium Phosphate (Fleet Enema) 133 ml BID PRN [place]; Start 02/01/17 at 20:30 Acetaminophen (Tylenol Liquid) 650 mg Q4H PRN GTB PAIN AND OR ELEVATED TEMP Last administered on 02/27/17 12:37; Admin Dose 650 MG; Start 02/05/17 at 18:30 IV Flush (NS 10 ml) 10 ml PRN PRN IV IV PROTOCOL; Start 02/07/17 at 14:30 Diphenhydramine HCl 25 mg 25 mg Q6H PRN IV itching Last administered on 00:00; Admin Dose 25 MG; Start 02/07/17 at 20:00 Ondansetron HCl/ Sodium Chloride (Zofran Inj/NS) 54 ml @ 216 mls/hr Q6H PRN IV NAUSEA AND/OR VOMITING; Start 02/09/17 at 11:30 Trimethobenzamide HCl (Tigan) 200 mg Q6H PRN IM NAUSEA AND/OR VOMITING; Start 02/10/17 at 19:30 Morphine Sulfate (morphine) 2 mg Q4H PRN IV pain Last administered on 01:44; Admin Dose 2 MG; Start 02/20/17 at 18:30 Docusate Sodium 100 mg 100 mg QHS PRN NGT For Constipation; Start 02/25/17 at 21:00 Acetaminophen (Ofirmev 1000mg/ 100ml Iv) 100 ml @ 50 mls/hr Q6H PRN IVPB fever Last administered on 03/06/17 20:44; Admin Dose 50 MLS/HR; Start at 07:30 Enoxaparin Sodium (Lovenox) 40 mg DAILY SC Last administered on 03/14/17 08:52 ; Admin Dose 40 MG; Start 03/03/17 at 09:00 Furosemide (Lasix) 20 mg DAILY IV Last administered on 03/14/17 08:48; Admin Dose 20 MG; Start 03/09/17 at 09:00 Thiamine HCl (Vitamin B1) 100 mg AM PO Last administered on 03/14/17 08:47; Admin Dose 100 MG; Start 03/12/17 at 09:00; Stop 03/26/17 at 10:00 Zinc Sulfate (Zinc Sulfate) 220 mg DAILY PO Last administered on 03/14/17 08: 47; Admin Dose 220 MG; Start 03/12/17 at 09:00; Stop 03/26/17 at 10:00 Lorazepam (Ativan) 0.5 mg Q6H PRN IV ANXIETY Last administered on 03/13/17 01: 16; Admin Dose 0.5 MG; Start 03/12/17 at 12:30 DARIUSZ QUINTERO NP March 14, 2017 16:17
--- NOTE | 2017-03-14 17:13 | PN ---
Date/Time of Note Date/Time of Note DATE: 03/14/17 TIME: 17:12 Assessment/Plan Lines/Catheters IV Catheter Type (from Nrsg): PICC Line Zeng in Place (from Nrsg): Yes Assessment/Plan Chief Complaint/Hosp Course SP tracheostomy will continue vent support pulm toilet Trach care Problems: Subjective 24 Hr Interval Summary Constitutional: improved Pain Control: mild Exam/Review of Systems Vital Signs Vitals Vital Signs Date Time Temp Pulse Resp B/P Pulse Ox O2 Delivery O2 Flow Rate FiO2 03/14/17 16:12 94 03/14/17 15:44 98.1 18 126/82 97 03/14/17 15:35 35 03/12/17 18:00 Mechanical Ventilator Intake and Output 03/13/17 03/13/17 03/14/17 15:00 23:00 07:00 Intake Total 900 ml 1140 ml Output Total 930 ml 950 ml Balance -30 ml 190 ml Exam Neck: non-tender, supple Respiratory: clear to auscultation, normal air movement Cardiovascular: nl pulses, regular rate and rhythm Results Result Diagram: 03/14/17 0510 03/12/17 0400 ROMAN OROZCO MD March 14, 2017 17:13
[2017-03-14] MEDS: HYDROCODONE/APAP (5/325) TAB PO PRN (21:02)
[2017-03-15] VITALS (23 sets, daily range): BP systolic 111–143; BP diastolic 71–81; PULSE 88–108; RESP 17–36
[2017-03-15] MEDS: IPRATROPIUM (HFA) 12.9 GM INHALER INH SCH ×4 (01:42→19:13)
[2017-03-15] MEDS: ALBUTEROL 18 GM INHALER INH SCH ×4 (01:42→19:13)
[2017-03-15] MEDS: ACETYLCYSTEINE 20% 4 ML VIAL NEB SCH ×4 (01:43→19:13)
[2017-03-15] MEDS: PANTOPRAZOLE 40 MG INJ IV SCH (05:25)
[2017-03-15] MEDS: ZINC SULFATE 220 MG CAP PO SCH (09:41)
[2017-03-15] MEDS: ACETAMINOPHEN 650MG/20.3ML CUP GTB PRN (09:41)
[2017-03-15] MEDS: THIAMINE 100 MG TAB PO SCH (09:41)
[2017-03-15] MEDS: FUROSEMIDE 20 MG INJ IV SCH (09:42)
[2017-03-15] MEDS: ENOXAPARIN 40 MG/0.4 ML SYG SC SCH (09:49)
[2017-03-15 11:36] LABS: ADD SCAN DIFF NO
[2017-03-15 11:41] LABS: BASOPHIL # 0.1 10^3/ul (0.0-0.1); BASOPHILS % 0.4 % (0.0-2.0); EOSINOPHILS # 0.4 10^3/ul (0.0-0.5); EOSINOPHILS % 2.3 % (0.0-7.0); HEMATOCRIT 23.7 % (42.0-52.0); HEMOGLOBIN 7.5 g/dl (14.0-18.0); LYMPHOCYTES # 0.8 10^3/ul (0.8-2.9); LYMPHOCYTES % 5.1 % (15.0-51.0); MEAN CORPUSCULAR HEMOGLOBIN 27.4 pg (29.0-33.0); MEAN CORPUSCULAR HGB CONC 31.6 g/dl (32.0-37.0); MEAN CORPUSCULAR VOLUME 86.5 fl (82.0-101.0); MEAN PLATELET VOLUME 11.1 fl (7.4-10.4); MONOCYTE # 1.2 10^3/ul (0.3-0.9); MONOCYTES % 7.9 % (0.0-11.0); NEUTROPHIL # 12.8 10^3/ul (1.6-7.5); NEUTROPHILS % 83.5 % (39.0-77.0); PLATELET COUNT 435 10^3/UL (140-415); RED BLOOD COUNT 2.74 10^6/ul (4.70-6.10); RED CELL DISTRIBUTION WIDTH 15.5 % (11.5-14.5); WHITE BLOOD COUNT 15.4 10^3/ul (4.8-10.8)
[2017-03-15 11:59] LABS: CALCIUM 9.1 mg/dl (8.4-10.2); CREATININE 0.52 mg/dl (0.61-1.24); MAGNESIUM 1.3 mg/dl (1.7-2.5); POTASSIUM 4.4 mmol/L (3.5-5.1)
--- NOTE | 2017-03-15 13:21 | CONS ---
Date/Time of Note Date/Time of Note DATE: 03/15/17 TIME: 13:19 Consult Date/Type/Reason Admit Date/Time Feb 01, 2017 at 03:10 Initial Consult Date 02/02/17 Type of Consultation: Pulm Ordering Provider: VINCE PADGETT Subjective Tolerating SIMV rate 4 and PS 10 Objective Vital Signs Date Time Temp Pulse Resp B/P Pulse Ox O2 Delivery O2 Flow Rate FiO2 03/15/17 12:25 92 03/15/17 11:36 98.3 18 111/71 100 03/15/17 09:20 35 03/12/17 18:00 Mechanical Ventilator Intake and Output 03/14/17 03/14/17 03/15/17 15:00 23:00 07:00 Intake Total 800 ml 1140 ml Output Total 20 ml 940 ml 950 ml Balance -20 ml -140 ml 190 ml Exam HEENT: Neck supple; no JVD; no LAD; trach site intact CVS: RRR, S1 and S2 CHEST: Clear ABD: Soft, NT, + BS EXT: No c/c/e Results/Medications Result Diagram: 03/15/17 1115 03/15/17 1115 Results 24 hrs Laboratory Tests Test 03/15/17 11:15 White Blood Count 15.4 #H Red Blood Count 2.74 L Hemoglobin 7.5 L Hematocrit 23.7 L Mean Corpuscular Volume 86.5 Mean Corpuscular Hemoglobin 27.4 L Mean Corpuscular Hemoglobin Concent 31.6 L Red Cell Distribution Width 15.5 H Platelet Count 435 H Mean Platelet Volume 11.1 H Neutrophils % 83.5 H Lymphocytes % 5.1 L Monocytes % 7.9 Eosinophils % 2.3 Basophils % 0.4 Nucleated Red Blood Cells % 0.0 Neutrophils # 12.8 H Lymphocytes # 0.8 Monocytes # 1.2 H Eosinophils # 0.4 Basophils # 0.1 Nucleated Red Blood Cells # 0.0 Sodium Level 134 L Potassium Level 4.4 Chloride Level 90 L Carbon Dioxide Level 32 H Anion Gap 16 Blood Urea Nitrogen 21 H Creatinine 0.52 L Glucose Level 111 Calcium Level 9.1 Magnesium Level 1.3 L Medications Current Medications Pantoprazole (Protonix Iv) 40 mg DAILY@06 IV Last administered on 03/15/17t 05: 25; Admin Dose 40 MG; Start 02/01/17 at 06:00 Acetaminophen/ Hydrocodone Bitart ([place] (5/325)) 1 tab Q4H PRN PO PAIN LEVEL 4 -7 Last administered on 03/14/17 21:02; Admin Dose 1 TAB; Start 02/01/17 at 20: 30 Acetaminophen/ Hydrocodone Bitart ([place] (5/325)) 2 tab Q4H PRN PO PAIN LEVEL 7 -10 Last administered on 03/13/17 22:39; Admin Dose 2 TAB; Start 02/01/17 at 20 :30 Bisacodyl (Dulcolax Supp) 10 mg BID PRN [place] CONSTIPATION; Start 02/01/17 at 20: 30 Sodium Biphosphate/ Sodium Phosphate ([place]leet Enema) 133 ml BID PRN [place] CONSTIPATION; Start 02/01/17 at 20:30 Acetaminophen (Tylenol Liquid) 650 mg Q4H PRN GTB PAIN AND OR ELEVATED TEMP Last administered on 03/15/17 09:41; Admin Dose 650 MG; Start 02/05/17 at 18:30 IV Flush (NS 10 ml) 10 ml PRN PRN IV IV PROTOCOL; Start 02/07/17 at 14:30 Diphenhydramine HCl 25 mg 25 mg Q6H PRN IV itching Last administered on 00:00; Admin Dose 25 MG; Start 02/07/17 at 20:00 Ondansetron HCl/ Sodium Chloride (Zofran Inj/NS) 54 ml @ 216 mls/hr Q6H PRN IV NAUSEA AND/OR VOMITING; Start 02/09/17 at 11:30 Trimethobenzamide HCl (Tigan) 200 mg Q6H PRN IM NAUSEA AND/OR VOMITING; Start 02/10/17 at 19:30 Morphine Sulfate (morphine) 2 mg Q4H PRN IV pain Last administered on 01:44; Admin Dose 2 MG; Start 02/20/17 at 18:30 Docusate Sodium 100 mg 100 mg QHS PRN NGT For Constipation; Start 02/25/17 at 21:00 Acetaminophen (Ofirmev 1000mg/ 100ml Iv) 100 ml @ 50 mls/hr Q6H PRN IVPB fever Last administered on 03/06/17 20:44; Admin Dose 50 MLS/HR; Start at 07:30 Enoxaparin Sodium (Lovenox) 40 mg DAILY SC Last administered on 03/15/17 09:49 ; Admin Dose 40 MG; Start 03/03/17 at 09:00 Furosemide (Lasix) 20 mg DAILY IV Last administered on 03/15/17 09:42; Admin Dose 20 MG; Start 03/09/17 at 09:00 Thiamine HCl (Vitamin B1) 100 mg AM PO Last administered on 03/15/17 09:41; Admin Dose 100 MG; Start 03/12/17 at 09:00; Stop 03/26/17 at 10:00 Zinc Sulfate (Zinc Sulfate) 220 mg DAILY PO Last administered on 03/15/17 09: 41; Admin Dose 220 MG; Start 03/12/17 at 09:00; Stop 03/26/17 at 10:00 Lorazepam 0.5 mg 0.5 mg Q6H PRN IV ANXIETY Last administered on 03/13/17 01:16 ; Admin Dose 0.5 MG; Start 03/12/17 at 12:30 Magnesium Sulfate/ Sodium Chloride (Magnesium Sulfate/NS) 106 ml @ 35.333 mls/ hr ONCE ONCE IVPB ; Start 03/15/17 at 14:00; Stop 03/15/17 at 16:59 Assessment/Plan Additional Assessment/Plan IMP: 1. Patient admitted for perforated diverticular colitis involving sigmoid colon status post laparoscopic resection with colostomy. 2. Complicated postop course punctuated by recurrent respiratory failure requiring multiple re-intubations. 3. Status post complete atelectasis of left lung, status post bronchoscopy with marked radiological improvement. 4. Failure to be weaned from ventilator, status post tracheostomy and G-tube placement. 5. Anemia. 6. Multiple small intra-abdominal abscesses, currently on appropriate antibiotic regimen. RECS: 1. Wean to CPAP 5; PS 10 2. If he tolerates this, may transition to trach collar tomorrow JAYA POPE MD March 15, 2017 13:21
--- NOTE | 2017-03-15 13:53 | PN ---
Date/Time of Note Date/Time of Note DATE: 03/15/17 TIME: 13:50 Assessment/Plan VTE Prophylaxis VTE Prophylaxis Intervention: LMWH Lines/Catheters IV Catheter Type (from Nrs): PICC Line Central line still needed: Yes Urinary Cath still in place: Yes Reason Cath still needed: other (indicate) Assessment/Plan Assessment/Plan 1. Perforated sigmoid colon 2/2 Severe Crohn's colitis * S/p Urgent Open Cronin's procedure with end colostomy, liver biopsy and abdominal lavage 02/01/17P * S/p post operative paracolic abscess drained via CT 02/14/[address] * S/p Exploration of abdomen through recent laparotomy site with closure of fascia done 02/15/17 for Fascia dehiscence * PEG placed 4 days ago - continue PEG feeds. 2. Recurrent Resp failure: Extubated then reintubated 02/13, extubated, then reintubated 02/25/17, then extubated 02/27 and reintubated 03/04 * Status post bronchoscopy with clearance of extensive secretions in the left mainstem bronchus with improved aeration radiographically 02/25 * Pulm concerned about possible neuromuscular injury contributing to recurrent resp failure - s/p trach placement 5 days ago - f/u rec's 3. Exacerbation of Crohn's disease with acute colitis and diarrhea Cultures earlier were growing ecoli / proteus / enterococcus 4. Multifocal PNA + Mook Pleural effusions - Effusions likely hydrostatic from hypoalbuminemia. + fevers - monitor, ID managing abx and antifungal 5. Severe Sepsis with lactic acidosis 2/2 severe colitis / PNA - Continue abx per ID 6. S/p Systemic shock (hypovolemic +septic) - again, see # 5, abx: Resolved 7. TPN therapy for low prealbumin: monitor 8. Hx of heavy alcohol and tobacco use just until admission - monitor 9. Probable underlying COPD and Cirrhosis based on hx which explains hypoalbuminemia and anasarca - monitor 10. Severe recurrent anemia likely 2/2 occult blood loss from multiple sources : PRN transfusions 11. Hypomagnesemia - replete as needed 12. Encephalopathy / Confusion, although less today. patient may have suffered some anoxic brain insult during the course of his hospitalization. Appreciate Neuro consult - likely multifactorial. Also MRI concerning for possible ostiomeatal unit obstruction / appreciate ENT input on this - continue current tx for now. Dispo: Continue current regimen SNF placement pending CPAP trials today Subjective 24 Hr Interval Summary Free Text/Dictation Patient seen and examined. Nursing reports no acute overnight events. confused Exam/Review of Systems Vital Signs Vitals Vital Signs Date Time Temp Pulse Resp B/P Pulse Ox O2 Delivery O2 Flow Rate FiO2 03/15/17 12:25 92 03/15/17 11:36 98.3 18 111/71 100 03/15/17 09:20 35 03/12/17 18:00 Mechanical Ventilator Intake and Output 03/14/17 03/14/17 03/15/17 15:00 23:00 07:00 Intake Total 800 ml 1140 ml Output Total 20 ml 940 ml 950 ml Balance -20 ml -140 ml 190 ml Exam Constitutional: conversing a bit Head: normocephalic Eyes: PERRL, icteric ENMT: trach in place Respiratory: less diminished breath sounds, No wheezing Cardiovascular: regular rate and rhythm, No murmurs/extra sounds Gastrointestinal: other (midline surgical dressing with wound vac / L sided colostomy and drain / colostomy has dark green fluid stool), soft otherwise. PEG in place Musculoskeletal: some swelling (generalized anasarca) Extremities: some pitting pedal edema Results Result Diagram: 03/15/17 1115 03/15/17 1115 Results 24 hrs Laboratory Tests Test 03/15/17 11:15 White Blood Count 15.4 #H Red Blood Count 2.74 L Hemoglobin 7.5 L Hematocrit 23.7 L Mean Corpuscular Volume 86.5 Mean Corpuscular Hemoglobin 27.4 L Mean Corpuscular Hemoglobin Concent 31.6 L Red Cell Distribution Width 15.5 H Platelet Count 435 H Mean Platelet Volume 11.1 H Neutrophils % 83.5 H Lymphocytes % 5.1 L Monocytes % 7.9 Eosinophils % 2.3 Basophils % 0.4 Nucleated Red Blood Cells % 0.0 Neutrophils # 12.8 H Lymphocytes # 0.8 Monocytes # 1.2 H Eosinophils # 0.4 Basophils # 0.1 Nucleated Red Blood Cells # 0.0 Sodium Level 134 L Potassium Level 4.4 Chloride Level 90 L Carbon Dioxide Level 32 H Anion Gap 16 Blood Urea Nitrogen 21 H Creatinine 0.52 L Glucose Level 111 Calcium Level 9.1 Magnesium Level 1.3 L Medications Medications Current Medications Pantoprazole (Protonix Iv) 40 mg DAILY@06 IV Last administered on 03/15/17 05: 25; Admin Dose 40 MG; Start 02/01/17 at 06:00 Acetaminophen/ Hydrocodone Bitart ([place] (5/325)) 1 tab Q4H PRN PO PAIN LEVEL 4 -7 Last administered on 03/14/17 21:02; Admin Dose 1 TAB; Start 02/01/17 at 20: 30 Acetaminophen/ Hydrocodone Bitart ([place] (5/325)) 2 tab Q4H PRN PO PAIN LEVEL 7 -10 Last administered on 03/13/17 22:39; Admin Dose 2 TAB; Start 02/01/17 at 20 :30 Bisacodyl (Dulcolax Supp) 10 mg BID PRN [place] CONSTIPATION; Start 02/01/17 at 20: 30 Sodium Biphosphate/ Sodium Phosphate (Fleet Enema) 133 ml BID PRN [place] CONSTIPATION; Start 02/01/17 at 20:30 Acetaminophen (Tylenol Liquid) 650 mg Q4H PRN GTB PAIN AND OR ELEVATED TEMP Last administered on 03/15/17 09:41; Admin Dose 650 MG; Start 02/05/17 at 18:30 IV Flush (NS 10 ml) 10 ml PRN PRN IV IV PROTOCOL; Start 02/07/17 at 14:30 Diphenhydramine HCl 25 mg 25 mg Q6H PRN IV itching Last administered on 00:00; Admin Dose 25 MG; Start 02/07/17 at 20:00 Ondansetron HCl/ Sodium Chloride (Zofran Inj/NS) 54 ml @ 216 mls/hr Q6H PRN IV NAUSEA AND/OR VOMITING; Start 02/09/17 at 11:30 Trimethobenzamide HCl (Tigan) 200 mg Q6H PRN IM NAUSEA AND/OR VOMITING; Start 02/10/17 at 19:30 Morphine Sulfate (morphine) 2 mg Q4H PRN IV pain Last administered on 01:44; Admin Dose 2 MG; Start 02/20/17 at 18:30 Docusate Sodium 100 mg 100 mg QHS PRN NGT For Constipation; Start 02/25/17 at 21:00 Acetaminophen (Ofirmev 1000mg/ 100ml Iv) 100 ml @ 50 mls/hr Q6H PRN IVPB fever Last administered on 03/06/17 20:44; Admin Dose 50 MLS/HR; Start at 07:30 Enoxaparin Sodium (Lovenox) 40 mg DAILY SC Last administered on 03/15/17 09:49 ; Admin Dose 40 MG; Start 03/03/17 at 09:00 Furosemide (Lasix) 20 mg DAILY IV Last administered on 03/15/17 09:42; Admin Dose 20 MG; Start 03/09/17 at 09:00 Thiamine HCl (Vitamin B1) 100 mg AM PO Last administered on 03/15/17 09:41; Admin Dose 100 MG; Start 03/12/17 at 09:00; Stop 03/26/17 at 10:00 Zinc Sulfate (Zinc Sulfate) 220 mg DAILY PO Last administered on 03/15/17 09: 41; Admin Dose 220 MG; Start 03/12/17 at 09:00; Stop 03/26/17 at 10:00 Lorazepam 0.5 mg 0.5 mg Q6H PRN IV ANXIETY Last administered on 03/13/17 01:16 ; Admin Dose 0.5 MG; Start 03/12/17 at 12:30 Magnesium Sulfate/ Sodium Chloride (Magnesium Sulfate/NS) 106 ml @ 35.333 mls/ hr ONCE ONCE IVPB ; Start 03/15/17 at 14:00; Stop 03/15/17 at 16:59 VINCE PADGETT March 15, 2017 13:53
[2017-03-15] MEDS ORDERED: MAGNESIUM SULFATE 3 GM in SOD CHLORIDE 0.9% 100 ML IVPB ONE (14:00)
--- NOTE | 2017-03-15 15:30 | PN ---
DATE: 03/15/2017 SUBJECTIVE: The patient is alert, status post tracheostomy, otherwise seems stable. OBJECTIVE: VITAL SIGNS: Temperature 98.3, pulse 92, blood pressure 111/71, oxygen saturation 100%. NECK: No jugular venous distention. LUNGS: Clear. CARDIAC: Regular rate and rhythm. ABDOMEN: Soft, nontender. EXTREMITIES: Reveal no edema. LABORATORY RESULTS: White count 15.4 up trending, hematocrit 23.7, platelet count 435. Sodium 134, potassium 4.4, BUN 21, creatinine 1.5. ASSESSMENT: Perforated colon, severe sepsis, respiratory failure, ejection fraction 50%, acute deco mpensated heart failure which is now improved. Acute ____anemia. The patient continues on maintenance diuretic. Renal function to be monitored and potassium to be r etained above. Dictated By: ROGELIO CASIANO/YAN Conf#: [id number] DID#: [id number]
--- NOTE | 2017-03-15 16:38 | PN ---
Date/Time of Note Date/Time of Note DATE: 03/15/17 TIME: 16:38 Assessment/Plan Lines/Catheters IV Catheter Type (from Nrsg): PICC Line Zeng in Place (from Nrsg): Yes Assessment/Plan Chief Complaint/Hosp Course SP tracheostomy will continue vent support pulm toilet Trach care Problems: Subjective 24 Hr Interval Summary Constitutional: improved Pain Control: mild Exam/Review of Systems Vital Signs Vitals Vital Signs Date Time Temp Pulse Resp B/P Pulse Ox O2 Delivery O2 Flow Rate FiO2 03/15/17 16:19 91 03/15/17 15:20 28 97 35 03/15/17 15:09 97.9 122/79 03/12/17 18:00 Mechanical Ventilator Intake and Output 03/14/17 03/14/17 03/15/17 15:00 23:00 07:00 Intake Total 800 ml 1140 ml Output Total 20 ml 940 ml 950 ml Balance -20 ml -140 ml 190 ml Exam Neck: non-tender, supple Respiratory: clear to auscultation, normal air movement Cardiovascular: nl pulses, regular rate and rhythm Gastrointestinal: nl liver, spleen, non-tender, soft Results Result Diagram: 03/15/17 1115 03/15/17 1115 ROMAN OROZCO MD March 15, 2017 16:38
[2017-03-16] VITALS (25 sets, daily range): BP systolic 109–145; BP diastolic 69–79; PULSE 90–104; RESP 13–29
[2017-03-16] MEDS: IPRATROPIUM (HFA) 12.9 GM INHALER INH SCH ×4 (01:12→19:19)
[2017-03-16] MEDS: ALBUTEROL 18 GM INHALER INH SCH ×4 (01:12→19:19)
[2017-03-16] MEDS: ACETYLCYSTEINE 20% 4 ML VIAL NEB SCH ×4 (01:12→19:20)
[2017-03-16] MEDS: PANTOPRAZOLE 40 MG INJ IV SCH (06:10)
[2017-03-16] MEDS: THIAMINE 100 MG TAB PO SCH (09:02)
[2017-03-16] MEDS: ZINC SULFATE 220 MG CAP PO SCH (09:02)
[2017-03-16] MEDS: FUROSEMIDE 20 MG INJ IV SCH (09:02)
[2017-03-16] MEDS: ENOXAPARIN 40 MG/0.4 ML SYG SC SCH (09:12)
--- NOTE | 2017-03-16 10:32 | CONS ---
Date/Time of Note Date/Time of Note DATE: 03/16/17 TIME: 10:30 Assessment/Plan Assessment/Plan Additional Assessment/Plan Ventilator settings; SIMV of 10, tidal volume 550, pressure support 10, 40% FiO2. PEEP of 5. Assessment recommendations; 1. Patient admitted for perforated diverticulitis involving sigmoid colon status post laparoscopic sigmoidectomy with colostomy. 2. Complicated postop course punctuated by multiple episodes of respiratory failure requiring multiple re-intubations, status post tracheostomy. 3. Episode of agitation off and on. 4. Pneumonia, with marked radiological improvement. 5. Multiple small intra-abdominal abscesses. Continue current treatment. Consultation Date/Type/Reason Admit Date/Time Feb 01, 2017 at 03:10 Initial Consult Date 02/02/17 Type of Consultation: Pulm Referring Provider: VINCE PADGETT 24 HR Interval Summary Free Text/Dictation Patient condition remains stable. Remains awake and alert. Follows simple commands moves all 4 extremity's. Still has episodes of agitation. General exam; middle-aged male, awake alert currently in no distress, on ventilator via tracheostomy. Exam/Review of Systems Vital Signs Vitals Vital Signs Date Time Temp Pulse Resp B/P Pulse Ox O2 Delivery O2 Flow Rate FiO2 03/16/17 09:30 95 26 99 35 03/16/17 07:25 98.3 109/69 03/12/17 18:00 Mechanical Ventilator Intake and Output 03/15/17 03/15/17 03/16/17 15:00 23:00 07:00 Intake Total 1040 ml 1040 ml Output Total 1100 ml 1400 ml Balance -60 ml -360 ml Exam HEENT examination; supple neck, no JVD. No lymphadenopathy. Midline trachea. No thyromegaly. Tracheostomy in place with clean insertion site. Dentition is fair. Pupils are midsize and reactive to light. Chest examination; clear to auscultation. S1-S2 audible, no murmurs. Regular rhythm. Abdomen examination; soft, no organomegaly. Bowel sounds audible. G tube in place. Colostomy in place. Extremity exam; no peripheral edema. SHAPE CARVER examination; no focal deficit. Results Result Diagram: 03/15/17 1115 03/15/17 1115 Results 24 hrs Laboratory Tests Test 03/15/17 11:15 White Blood Count 15.4 #H Red Blood Count 2.74 L Hemoglobin 7.5 L Hematocrit 23.7 L Mean Corpuscular Volume 86.5 Mean Corpuscular Hemoglobin 27.4 L Mean Corpuscular Hemoglobin Concent 31.6 L Red Cell Distribution Width 15.5 H Platelet Count 435 H Mean Platelet Volume 11.1 H Neutrophils % 83.5 H Lymphocytes % 5.1 L Monocytes % 7.9 Eosinophils % 2.3 Basophils % 0.4 Nucleated Red Blood Cells % 0.0 Neutrophils # 12.8 H Lymphocytes # 0.8 Monocytes # 1.2 H Eosinophils # 0.4 Basophils # 0.1 Nucleated Red Blood Cells # 0.0 Sodium Level 134 L Potassium Level 4.4 Chloride Level 90 L Carbon Dioxide Level 32 H Anion Gap 16 Blood Urea Nitrogen 21 H Creatinine 0.52 L Glucose Level 111 Calcium Level 9.1 Magnesium Level 1.3 L Medications Medications Current Medications Pantoprazole (Protonix Iv) 40 mg DAILY@06 IV Last administered on 03/16/17 06: 10; Admin Dose 40 MG; Start 02/01/17 at 06:00 Acetaminophen/ Hydrocodone Bitart ([place] (5/325)) 1 tab Q4H PRN PO PAIN LEVEL 4 -7 Last administered on 03/14/17 21:02; Admin Dose 1 TAB; Start 02/01/17 at 20: 30 Acetaminophen/ Hydrocodone Bitart ([place] (5/325)) 2 tab Q4H PRN PO PAIN LEVEL 7 -10 Last administered on 03/13/17 22:39; Admin Dose 2 TAB; Start 02/01/17 at 20 :30 Bisacodyl (Dulcolax Supp) 10 mg BID PRN [place] CONSTIPATION; Start 02/01/17 at 20: 30 Sodium Biphosphate/ Sodium Phosphate (Fleet Enema) 133 ml BID PRN [place] CONSTIPATION; Start 02/01/17 at 20:30 Acetaminophen (Tylenol Liquid) 650 mg Q4H PRN GTB PAIN AND OR ELEVATED TEMP Last administered on 03/15/17 09:41; Admin Dose 650 MG; Start 02/05/17 at 18:30 IV Flush (NS 10 ml) 10 ml PRN PRN IV IV PROTOCOL; Start 02/07/17 at 14:30 Diphenhydramine HCl 25 mg 25 mg Q6H PRN IV itching Last administered on 00:00; Admin Dose 25 MG; Start 02/07/17 at 20:00 Ondansetron HCl/ Sodium Chloride (Zofran Inj/NS) 54 ml @ 216 mls/hr Q6H PRN IV NAUSEA AND/OR VOMITING; Start 02/09/17 at 11:30 Trimethobenzamide HCl (Tigan) 200 mg Q6H PRN IM NAUSEA AND/OR VOMITING; Start 02/10/17 at 19:30 Morphine Sulfate (morphine) 2 mg Q4H PRN IV pain Last administered on 01:44; Admin Dose 2 MG; Start 02/20/17 at 18:30 Docusate Sodium 100 mg 100 mg QHS PRN NGT For Constipation; Start 02/25/17 at 21:00 Acetaminophen (Ofirmev 1000mg/ 100ml Iv) 100 ml @ 50 mls/hr Q6H PRN IVPB fever Last administered on 03/06/17 20:44; Admin Dose 50 MLS/HR; Start at 07:30 Enoxaparin Sodium (Lovenox) 40 mg DAILY SC Last administered on 03/16/17 09:12 ; Admin Dose 40 MG; Start 03/03/17 at 09:00 Furosemide (Lasix) 20 mg DAILY IV Last administered on 03/16/17 09:02; Admin Dose 20 MG; Start 03/09/17 at 09:00 Thiamine HCl (Vitamin B1) 100 mg AM PO Last administered on 03/16/17 09:02; Admin Dose 100 MG; Start 03/12/17 at 09:00; Stop 03/26/17 at 10:00 Zinc Sulfate (Zinc Sulfate) 220 mg DAILY PO Last administered on 03/16/17 09: 02; Admin Dose 220 MG; Start 03/12/17 at 09:00; Stop 03/26/17 at 10:00 Lorazepam (Ativan) 0.5 mg Q6H PRN IV ANXIETY Last administered on 03/13/17 01: 16; Admin Dose 0.5 MG; Start 03/12/17 at 12:30 RICHAR ADRIAN March 16, 2017 10:32
--- NOTE | 2017-03-16 12:32 | PN ---
DATE: 03/16/2017 PAIN MANAGEMENT PROGRESS NOTE Mr. Frye is on medical/surgical floor on telemetry at this time, waiting for approval to go to [facility]. He seems to be comfortable. He is answering questions for me. Denies any severe discomfort, b ut that he looks uncomfortable. Although on my insistence on asking him if he is in fact uncom fortable, he states that he is okay. States he has 0 pain at this time, but he does look like he is uncomfortable. He is grimacing, not moaning, neither does he looks nervous or having nonpurposeful movements. He is bedridden. He is PEG/trached. Therefore, we cannot assess his physical function moods, sleeping patterns. Overall, my impression he has suffered a significant amount of weight loss just visually and appears to be once again uncomfortable. There is no history that I could obtain of recent nausea, vomiting , constipation, mental cloudiness sweating, fatigue, drowsiness. ASSESSMENT AND PLAN: We will continue with this current level of care without instituting any guevara e in his pain control regimen, but encourage him to allow us to medicate him in the event that he whyte s any acceleration of his discomfort. Currently, his pain control medications include [place]. I viry l discontinue lorazepam and discontinue morphine. Dictated By: ZAK HEARN MD, LP/YAN Conf#: [id number] DID#: [id number]
--- NOTE | 2017-03-16 13:14 | CONS ---
Date/Time of Note Date/Time of Note DATE: 03/16/17 TIME: 13:12 Assessment/Plan Assessment/Plan Additional Assessment/Plan Perforated colon status post surgery Severe sepsis Respiratory failure-status post tracheostomy Low normal ejection fraction 50% Acute decompensated diastolic congestive heart failure-improved Crohn's disease Acute blood loss anemia -Continue maintenance diuretics as needed with close monitoring of renal function and electrolytes. Maintain potassium above 4.0 and magnesium above 2.0. Consultation Date/Type/Reason Admit Date/Time Feb 01, 2017 at 03:10 Initial Consult Date 02/02/17 Type of Consultation: cv Referring Provider: VINCE PADGETT 24 HR Interval Summary Free Text/Dictation Denies chest pain or shortness of breath Exam/Review of Systems Vital Signs Vitals Vital Signs Date Time Temp Pulse Resp B/P Pulse Ox O2 Delivery O2 Flow Rate FiO2 03/16/17 11:46 98 25 99 35 03/16/17 11:08 98.3 118/73 03/12/17 18:00 Mechanical Ventilator Intake and Output 03/15/17 03/15/17 03/16/17 15:00 23:00 07:00 Intake Total 1140 ml 1040 ml Output Total 1100 ml 1400 ml Balance 40 ml -360 ml Exam No apparent distress Constitutional: alert, oriented Head: normocephalic Neck: other (Tracheostomy) Respiratory: other (Coarse breath sounds bilaterally, no wheezing) Cardiovascular: other (S1-S2 heard), regular rate and rhythm Gastrointestinal: bowel sounds, non-tender, soft Extremities: other (No edema) Results Result Diagram: 03/15/17 1115 03/15/17 1115 Medications Medications Current Medications Pantoprazole (Protonix Iv) 40 mg DAILY@06 IV Last administered on 03/16/17 06: 10; Admin Dose 40 MG; Start 02/01/17 at 06:00 Acetaminophen/ Hydrocodone Bitart ([place] (5/325)) 1 tab Q4H PRN PO PAIN LEVEL 4 -7 Last administered on 03/14/17 21:02; Admin Dose 1 TAB; Start 02/01/17 at 20: 30 Acetaminophen/ Hydrocodone Bitart ([place] (5/325)) 2 tab Q4H PRN PO PAIN LEVEL 7 -10 Last administered on 03/13/17 22:39; Admin Dose 2 TAB; Start 02/01/17 at 20 :30 Bisacodyl (Dulcolax Supp) 10 mg BID PRN [place] CONSTIPATION; Start 02/01/17 at 20: 30 Sodium Biphosphate/ Sodium Phosphate (Fleet Enema) 133 ml BID PRN [place] CONSTIPATION; Start 02/01/17 at 20:30 Acetaminophen (Tylenol Liquid) 650 mg Q4H PRN GTB PAIN AND OR ELEVATED TEMP Last administered on 03/15/17 09:41; Admin Dose 650 MG; Start 02/05/17 at 18:30 IV Flush (NS 10 ml) 10 ml PRN PRN IV IV PROTOCOL; Start 02/07/17 at 14:30 Diphenhydramine HCl 25 mg 25 mg Q6H PRN IV itching Last administered on 00:00; Admin Dose 25 MG; Start 02/07/17 at 20:00 Ondansetron HCl/ Sodium Chloride (Zofran Inj/NS) 54 ml @ 216 mls/hr Q6H PRN IV NAUSEA AND/OR VOMITING; Start 02/09/17 at 11:30 Trimethobenzamide HCl (Tigan) 200 mg Q6H PRN IM NAUSEA AND/OR VOMITING; Start 02/10/17 at 19:30 Morphine Sulfate (morphine) 2 mg Q4H PRN IV pain Last administered on 01:44; Admin Dose 2 MG; Start 02/20/17 at 18:30 Docusate Sodium 100 mg 100 mg QHS PRN NGT For Constipation; Start 02/25/17 at 21:00 Acetaminophen (Ofirmev 1000mg/ 100ml Iv) 100 ml @ 50 mls/hr Q6H PRN IVPB fever Last administered on 03/06/17 20:44; Admin Dose 50 MLS/HR; Start at 07:30 Enoxaparin Sodium (Lovenox) 40 mg DAILY SC Last administered on 03/16/17 09:12 ; Admin Dose 40 MG; Start 03/03/17 at 09:00 Furosemide (Lasix) 20 mg DAILY IV Last administered on 03/16/17 09:02; Admin Dose 20 MG; Start 03/09/17 at 09:00 Thiamine HCl (Vitamin B1) 100 mg AM PO Last administered on 03/16/17 09:02; Admin Dose 100 MG; Start 03/12/17 at 09:00; Stop 03/26/17 at 10:00 Zinc Sulfate (Zinc Sulfate) 220 mg DAILY PO Last administered on 03/16/17 09: 02; Admin Dose 220 MG; Start 03/12/17 at 09:00; Stop 03/26/17 at 10:00 Lorazepam (Ativan) 0.5 mg Q6H PRN IV ANXIETY Last administered on 03/13/17 01: 16; Admin Dose 0.5 MG; Start 03/12/17 at 12:30 Keith Gandhi DO March 16, 2017 13:14
--- NOTE | 2017-03-16 13:42 | PN ---
Date/Time of Note Date/Time of Note DATE: 03/16/17 TIME: 13:37 Assessment/Plan Lines/Catheters IV Catheter Type (from Nrsg): PICC Line Zeng in Place (from Nrsg): Yes Assessment/Plan Assessment/Plan [facility] Progress Note Date of Service: 03/16/17 Today's Impression & Plan: Overall stable on the vent with trach; tolerating trach and PEG. Off the TPN. Abd remains benign. Wound healing well. No indication for acute surgical intervention. Appears less confused. Able to communicate and asking more substantive and pertinent questions in a logical way. I continue to be encouraged by the findings. Updated patient's father over the phone and answered all questions. Remains high risk for complication given perforated colon in the setting of uncontrolled Crohn's. Recovery will take extra time with need for subacute rehab. With above assessment, I've recommended the following for today: 1. Cont current cares 2. F/u on cultures 3. Cont PEG enteric feeds 4. Cont weaning off the vent with continued pulmonary toilet 5. Cont gentle diuresis to BMP < 200 6. Social work and case management to please continue working on [facility] subacute care hospital placement 7. Increase activity 8. Increase ICS 9. Cont current wound care with wound vac 10. Continue prophylactic anticoagulation (no contraindication from surgical standpoint) Thank you again for your great care of this very pleasant patient and wonderful family. If there are any questions, please feel free to call me at [phone]. TOTAL VISIT TIME: 20 minutes of which more than half was spent in [id number] discussion with the patient, possibly including family, as well as coordination of care between multiple physicians and providers. Disclaimer: Inadvertent spelling or grammatical errors are likely due to EHR/ dictation software use and do not reflect on the overall quality of patient care. Updated Clinical Summary: A very pleasant 46-year-old gentleman with history of Crohn's disease as well as prior surgery for anal fistula approximately 5 years ago, and a torn meniscus repair on the left knee, presenting with abdominal pain associated with a few weeks' duration of diarrhea. S/p an otherwise uncomplicated diagnostic laparoscopy was converted first to hand assist and then to open exploration when perforated sigmoid colon was found and it was resected with a Deena type procedure and end colostomy as well as core needle liver biopsy, segment 5, due to presence of fatty liver disease, lysis of adhesions, and abdominal lavage on 02/01/17. Failed to wean off the vent through 02/06/17. PE was evaluated 02/07/[address] angio and no evidence found. CT abd/pelvis also did not show actionable findings (no abscess; bowel thickening somewhat expected). Extubated 02/07/17. LITERACY CONSULTANT called early am 02/13/17 with a few minutes coding, requiring intubation and transfer to ICU. Fortunately, mentally appears to be intact and not on pressors. Lactic acid and CO2 normal with benign appearing abd and viable ostomy. Complicated by fascia dehiscence. S/p exploration of abdomen through recent laparotomy, primary closure of fascia and abdominal lavage on 02/15/17. Reintubated 02/25/17 for bronchoscopy to remove mucus plug. Extubated 02/28/17. Re-intubated 03/05/17 due to respiratory failure and hypoxia. 03/05/17: HIV negative and hepatitis B&C neg. Brain MRI did not contribute to the diagnosis, but no mass effect, obvious hemorrhage or other explanatory findings. S/p trach and PEG 03/09/17. COMORBIDITIES: 1. Crohn disease with perforation of sigmoid colon and sepsis. S/p an otherwise uncomplicated diagnostic laparoscopy was converted first to hand assist and then to open exploration when perforated sigmoid colon was found and it was resected with a Deena type procedure and end colostomy as well as core needle liver biopsy, segment 5, due to presence of fatty liver disease, lysis of adhesions, and abdominal lavage on 02/01/17. Complicated by respiratory failure, return trip to ICU and fascia dehiscence. S/p exploration of abdomen through recent laparotomy, primary closure of fascia and abdominal lavage on 02/15. 2. Repair of a fistula approximately 5 years ago. 3. Torn meniscus on the left knee status post repair. 4. S/p trach and PEG 03/09/17 at [facility]. Subjective: No major events or complications; remains on the vent; seems interactive; difficult to clearly communicate with him with the vent, but does not report any major abdominal pain, SOB, CP or nausea; asked more logical questions with no non-sense questions. Objective: Vitals: See below Exam: GENERAL: On exam, the patient was laying in bed and appeared to be comfortable and in no acute distress. On the vent with trach. Eyes open and responds to voice. ABDOMEN: Soft, nontender and nondistended. Incision wound vac dressings clean without any evidence of obvious erythema, edema, discharge, or hernia. Wound vac with no sig drainage. Surgery drain site clean. Ostomy pink and viable; some air and stool in the bag. There are no peritoneal signs or guarding. PEG in place and tube feeing ongoing. SKIN: Skin appears to be pink and feels warm to touch. NEUROLOGIC: Patient's eyes open and responds to voice. and follows simple commands appropriately. Exam/Review of Systems Vital Signs Vitals Vital Signs Date Time Temp Pulse Resp B/P Pulse Ox O2 Delivery O2 Flow Rate FiO2 03/16/17 11:46 98 25 99 35 03/16/17 11:08 98.3 118/73 03/12/17 18:00 Mechanical Ventilator Intake and Output 03/15/17 03/15/17 03/16/17 15:00 23:00 07:00 Intake Total 1140 ml 1040 ml Output Total 1100 ml 1400 ml Balance 40 ml -360 ml Results Result Diagram: 03/15/17 1115 03/15/17 1115 TI HILTON M.D. March 16, 2017 13:42
--- NOTE | 2017-03-16 14:10 | PN ---
DATE: 03/08/2017 SUBJECTIVE: No fevers. The patient is alert, looks comfortable, denies pain. No labs this morning . INDWELLINGS: Trach, PEG, Zeng, PICC line. PHYSICAL EXAMINATION: GENERAL: Cachectic, well-developed, middle-aged white man who is alert, in no distress. HEENT: Head atraumatic, normocephalic. Sclerae anicteric. Buccal mucosa dry. NECK: Supple. Tracheostomy present. CHEST: Rise symmetrical. Breath sounds clear. HEART: S1, S2. ABDOMEN: Soft, bowel sounds present. EXTREMITIES: No cyanosis. ASSESSMENT: 1. Status post sepsis with shock. 2. Status post perforated diverticulitis repair. 3. Status post pneumonia. 4. Crohn's disease. 5. History of ETOH abuse. PLAN: The patient remains stable off antibiotics. We will repeat cultures p.r.n. . Dictated By: THOMAS ELLIS BENEFITS CLERK for MICKY RAMÍREZ/YAN Conf#: [id number] DID#: [id number]
--- NOTE | 2017-03-16 16:22 | PN ---
Date/Time of Note Date/Time of Note DATE: 03/16/17 TIME: 16:22 Assessment/Plan VTE Prophylaxis VTE Prophylaxis Intervention: other Lines/Catheters IV Catheter Type (from Nrsg): Central line still needed: No Urinary Cath still in place: No Assessment/Plan Chief Complaint/Hosp Course SP tracheostomy will continue vent support pulm toilet Trach care Problems: Subjective 24 Hr Interval Summary Gastrointestinal: no complaints Genitourinary: no complaints Musculoskeletal: no complaints Skin: no complaints Exam/Review of Systems Vital Signs Vitals Vital Signs Date Time Temp Pulse Resp B/P Pulse Ox O2 Delivery O2 Flow Rate FiO2 03/16/17 15:36 91 22 99 35 03/16/17 15:23 98.1 112/71 03/12/17 18:00 Mechanical Ventilator Intake and Output 03/15/17 03/15/17 03/16/17 15:00 23:00 07:00 Intake Total 1140 ml 1040 ml Output Total 1100 ml 1400 ml Balance 40 ml -360 ml Results Result Diagram: 03/15/17 1115 03/15/17 1115 Medications Medications Current Medications Pantoprazole (Protonix Iv) 40 mg DAILY@06 IV Last administered on 03/16/17 06: 10; Admin Dose 40 MG; Start 02/01/17 at 06:00 Acetaminophen/ Hydrocodone Bitart ([place] (5/325)) 1 tab Q4H PRN PO PAIN LEVEL 4 -7 Last administered on 03/14/17 21:02; Admin Dose 1 TAB; Start 02/01/17 at 20: 30 Acetaminophen/ Hydrocodone Bitart ([place] (5/325)) 2 tab Q4H PRN PO PAIN LEVEL 7 -10 Last administered on 03/13/17 22:39; Admin Dose 2 TAB; Start 02/01/17 at 20 :30 Bisacodyl (Dulcolax Supp) 10 mg BID PRN [place] CONSTIPATION; Start 02/01/17 at 20: 30 Sodium Biphosphate/ Sodium Phosphate (Fleet Enema) 133 ml BID PRN [place] CONSTIPATION; Start 02/01/17 at 20:30 Acetaminophen (Tylenol Liquid) 650 mg Q4H PRN GTB PAIN AND OR ELEVATED TEMP Last administered on 03/15/17 09:41; Admin Dose 650 MG; Start 02/05/17 at 18:30 IV Flush (NS 10 ml) 10 ml PRN PRN IV IV PROTOCOL; Start 02/07/17 at 14:30 Diphenhydramine HCl 25 mg 25 mg Q6H PRN IV itching Last administered on 00:00; Admin Dose 25 MG; Start 02/07/17 at 20:00 Ondansetron HCl/ Sodium Chloride (Zofran Inj/NS) 54 ml @ 216 mls/hr Q6H PRN IV NAUSEA AND/OR VOMITING; Start 02/09/17 at 11:30 Trimethobenzamide HCl (Tigan) 200 mg Q6H PRN IM NAUSEA AND/OR VOMITING; Start 02/10/17 at 19:30 Morphine Sulfate (morphine) 2 mg Q4H PRN IV pain Last administered on 01:44; Admin Dose 2 MG; Start 02/20/17 at 18:30 Docusate Sodium 100 mg 100 mg QHS PRN NGT For Constipation; Start 02/25/17 at 21:00 Acetaminophen (Ofirmev 1000mg/ 100ml Iv) 100 ml @ 50 mls/hr Q6H PRN IVPB fever Last administered on 03/06/17 20:44; Admin Dose 50 MLS/HR; Start at 07:30 Enoxaparin Sodium (Lovenox) 40 mg DAILY SC Last administered on 03/16/17 09:12 ; Admin Dose 40 MG; Start 03/03/17 at 09:00 Thiamine HCl (Vitamin B1) 100 mg AM PO Last administered on 03/16/17 09:02; Admin Dose 100 MG; Start 03/12/17 at 09:00; Stop 03/26/17 at 10:00 Zinc Sulfate (Zinc Sulfate) 220 mg DAILY PO Last administered on 03/16/17 09: 02; Admin Dose 220 MG; Start 03/12/17 at 09:00; Stop 03/26/17 at 10:00 Lorazepam (Ativan) 0.5 mg Q6H PRN IV ANXIETY Last administered on 03/13/17 01: 16; Admin Dose 0.5 MG; Start 03/12/17 at 12:30 Furosemide (Lasix) 20 mg DAILY PEG ; Start 03/17/17 at 09:00 ROMAN OROZCO MD March 16, 2017 16:22
--- NOTE | 2017-03-16 18:11 | PN ---
Date/Time of Note Date/Time of Note DATE: 03/16/17 TIME: 18:07 Assessment/Plan VTE Prophylaxis VTE Prophylaxis Intervention: SCD's Lines/Catheters IV Catheter Type (from [facility]): Urinary Cath still in place: No Assessment/Plan Chief Complaint/Hosp Course Assessment/Plan 1. Perforated sigmoid colon 2/2 Severe Crohn's colitis * S/p Urgent Open Cronin's procedure with end colostomy, liver biopsy and abdominal lavage 02/01/17 * S/p post operative paracolic abscess drained via CT 02/14/[address] * S/p Exploration of abdomen through recent laparotomy site with closure of fascia done 02/15/17 for Fascia dehiscence * PEG placed 4 days ago - continue PEG feeds. 2. Recurrent Resp failure: Extubated then reintubated 02/13, extubated, then reintubated 02/25/17, then extubated 02/27 and reintubated 03/04 * Status post bronchoscopy with clearance of extensive secretions in the left mainstem bronchus with improved aeration radiographically 02/25 * Pulm concerned about possible neuro muscular injury contributing to recurrent resp failure - s/p trach placement ,continue vent management 3. Exacerbation of Crohn's disease with acute colitis and diarrhea Cultures earlier were growing ecoli / proteus / enterococcus 4. Multifocal PNA + Mook Pleural effusions - Effusions likely hydrostatic from hypoalbuminemia. + fevers - monitor, ID managing abx and antifungal 5. Severe Sepsis with lactic acidosis 2/2 severe colitis / PNA - Continue abx per ID 6. S/p Systemic shock (hypovolemic +septic) - again, see # 5, abx: Resolved 7. Status post TPN therapy for low prealbumin: At this time patient is on PEG tube feeding 8. Hx of heavy alcohol and tobacco use just until admission - monitor 9. Probable underlying COPD and Cirrhosis based on hx which explains hypoalbuminemia and anasarca - monitor 10. Severe recurrent anemia likely 2/2 occult blood loss from multiple sources : PRN transfusions 11. Hypomagnesemia - replete as needed 12. Encephalopathy / Confusion, resolving, patient may have suffered some anoxic brain insult during the course of his hospitalization. Appreciate Neuro consult - likely multifactorial. Also MRI concerning for possible ostiomeatal unit obstruction / appreciate ENT input on this - continue current tx for now. Dispo: Continue current regimen SNF placement pending Follow-up tobacco cutter and general surgery recommendation Problems: Subjective 24 Hr Interval Summary Free Text/Dictation No acute changes Tolerating vent and PEG tube feeding Denies of any chest pain Exam/Review of Systems Vital Signs Vitals Vital Signs Date Time Temp Pulse Resp B/P Pulse Ox O2 Delivery O2 Flow Rate FiO2 03/16/17 17:35 92 15 99 35 03/16/17 15:23 98.1 112/71 03/12/17 18:00 Mechanical Ventilator Intake and Output 03/15/17 03/15/17 03/16/17 15:00 23:00 07:00 Intake Total 1140 ml 1040 ml Output Total 1100 ml 1400 ml Balance 40 ml -360 ml Exam General: The patient is underweight, Not in acute distress. HEENT: Atraumatic, normocephalic. The pupils are equal and round . Neck: Supple, trach in place Chest: Normal expansion of the thorax during inspiration Lungs: Clear to auscultation bilaterally Heart: Normal S1-S2, Regular rhythm and rate. Abdomen: Soft , nontender, nondistended , bowel sounds are present. PEG tube in place, wound VAC in mid abdominal region. Extremities: Evidence of muscle wasting bilateral lower extremity, full range of motion, no edema no cyanosis Neurologic: Normal mental status,The patient is awake, alert and oriented . Results Result Diagram: 03/15/17 1115 03/15/17 1115 Medications Medications Current Medications Pantoprazole (Protonix Iv) 40 mg DAILY@06 IV Last administered on 03/16/17 06: 10; Admin Dose 40 MG; Start 02/01/17 at 06:00 Acetaminophen/ Hydrocodone Bitart ([place] (5/325)) 1 tab Q4H PRN PO PAIN LEVEL 4 -7 Last administered on 03/14/17 21:02; Admin Dose 1 TAB; Start 02/01/17 at 20: 30 Acetaminophen/ Hydrocodone Bitart ([place] (5/325)) 2 tab Q4H PRN PO PAIN LEVEL 7 -10 Last administered on 03/13/17 22:39; Admin Dose 2 TAB; Start 02/01/17 at 20 :30 Bisacodyl (Dulcolax Supp) 10 mg BID PRN [place] CONSTIPATION; Start 02/01/17 at 20: 30 Sodium Biphosphate/ Sodium Phosphate (Fleet Enema) 133 ml BID PRN CO CONSTIPATION; Start 02/01/17 at 20:30 Acetaminophen (Tylenol Liquid) 650 mg Q4H PRN GTB PAIN AND OR ELEVATED TEMP Last administered on 03/15/17 09:41; Admin Dose 650 MG; Start 02/05/17 at 18:30 IV Flush (NS 10 ml) 10 ml PRN PRN IV IV PROTOCOL; Start 02/07/17 at 14:30 Diphenhydramine HCl 25 mg 25 mg Q6H PRN IV itching Last administered on 00:00; Admin Dose 25 MG; Start 02/07/17 at 20:00 Ondansetron HCl/ Sodium Chloride (Zofran Inj/NS) 54 ml @ 216 mls/hr Q6H PRN IV NAUSEA AND/OR VOMITING; Start 02/09/17 at 11:30 Trimethobenzamide HCl (Tigan) 200 mg Q6H PRN IM NAUSEA AND/OR VOMITING; Start 02/10/17 at 19:30 Morphine Sulfate (morphine) 2 mg Q4H PRN IV pain Last administered on 01:44; Admin Dose 2 MG; Start 02/20/17 at 18:30 Docusate Sodium 100 mg 100 mg QHS PRN NGT For Constipation; Start 02/25/17 at 21:00 Acetaminophen (Ofirmev 1000mg/ 100ml Iv) 100 ml @ 50 mls/hr Q6H PRN IVPB fever Last administered on 03/06/17 20:44; Admin Dose 50 MLS/HR; Start at 07:30 Enoxaparin Sodium (Lovenox) 40 mg DAILY SC Last administered on 03/16/17 09:12 ; Admin Dose 40 MG; Start 03/03/17 at 09:00 Thiamine HCl (Vitamin B1) 100 mg AM PO Last administered on 03/16/17 09:02; Admin Dose 100 MG; Start 03/12/17 at 09:00; Stop 03/26/17 at 10:00 Zinc Sulfate (Zinc Sulfate) 220 mg DAILY PO Last administered on 03/16/17 09: 02; Admin Dose 220 MG; Start 03/12/17 at 09:00; Stop 03/26/17 at 10:00 Lorazepam (Ativan) 0.5 mg Q6H PRN IV ANXIETY Last administered on 03/13/17t 01: 16; Admin Dose 0.5 MG; Start 03/12/17 at 12:30 Furosemide (Lasix) 20 mg DAILY PEG ; Start 03/17/17 at 09:00 CRISTIANA LAM MD March 16, 2017 18:11
[2017-03-17] VITALS (23 sets, daily range): BP systolic 111–125; BP diastolic 65–74; PULSE 90–99; RESP 16–27
[2017-03-17] MEDS: ACETYLCYSTEINE 20% 4 ML VIAL NEB SCH ×4 (01:35→19:33)
[2017-03-17] MEDS: ALBUTEROL 18 GM INHALER INH SCH ×4 (01:35→19:33)
[2017-03-17] MEDS: IPRATROPIUM (HFA) 12.9 GM INHALER INH SCH ×4 (01:35→19:33)
[2017-03-17] MEDS: PANTOPRAZOLE 40 MG INJ IV SCH (06:01)
[2017-03-17 06:41] LABS: ADD SCAN DIFF NO
[2017-03-17 07:15] LABS: CALCIUM 9.8 mg/dl (8.4-10.2); CREATININE 0.49 mg/dl (0.61-1.24); MAGNESIUM 1.5 mg/dl (1.7-2.5); POTASSIUM 4.1 mmol/L (3.5-5.1)
--- NOTE | 2017-03-17 08:05 | PN ---
Date/Time of Note Date/Time of Note DATE: 03/17/17 TIME: 08:05 Assessment/Plan VTE Prophylaxis VTE Prophylaxis Intervention: other Lines/Catheters IV Catheter Type (from Nrsg): Central line still needed: No Urinary Cath still in place: No Assessment/Plan Chief Complaint/Hosp Course SP tracheostomy will continue vent support pulm toilet Trach care Problems: Subjective 24 Hr Interval Summary Gastrointestinal: no complaints Genitourinary: no complaints Musculoskeletal: no complaints Skin: no complaints Neurologic: no complaints Exam/Review of Systems Vital Signs Vitals Vital Signs Date Time Temp Pulse Resp B/P Pulse Ox O2 Delivery O2 Flow Rate FiO2 03/17/17 07:45 95 18 99 35 03/17/17 07:35 98.2 123/74 Intake and Output 03/16/17 03/16/17 03/17/17 15:00 23:00 07:00 Intake Total 1040 ml 1040 ml Output Total 1700 ml 1400 ml Balance -660 ml -360 ml Exam ENMT: nl external ears & nose, nl lips & teeth, nl nasal mucosa & septum Neck: non-tender, supple Respiratory: clear to auscultation, normal air movement Cardiovascular: nl pulses, regular rate and rhythm Results Result Diagram: 03/15/17 1115 03/17/17 0601 Results 24 hrs Laboratory Tests Test 03/17/17 06:01 Sodium Level 132 L Potassium Level 4.1 Chloride Level 93 L Carbon Dioxide Level 30 Anion Gap 13 Blood Urea Nitrogen 21 H Creatinine 0.49 L Glucose Level 98 Calcium Level 9.8 Magnesium Level 1.5 L Medications Medications Current Medications Pantoprazole (Protonix Iv) 40 mg DAILY@06 IV Last administered on 03/17/17 06: 01; Admin Dose 40 MG; Start 02/01/17 at 06:00 Acetaminophen/ Hydrocodone Bitart ([place] (5/325)) 1 tab Q4H PRN PO PAIN LEVEL 4 -7 Last administered on 03/14/17 21:02; Admin Dose 1 TAB; Start 02/01/17 at 20: 30 Acetaminophen/ Hydrocodone Bitart ([place] (5/325)) 2 tab Q4H PRN PO PAIN LEVEL 7 -10 Last administered on 03/13/17 22:39; Admin Dose 2 TAB; Start 02/01/17 at 20 :30 Bisacodyl (Dulcolax Supp) 10 mg BID PRN OR CONSTIPATION; Start 02/01/17 at 20: 30 Sodium Biphosphate/ Sodium Phosphate (Fleet Enema) 133 ml BID PRN OR CONSTIPATION; Start 02/01/17 at 20:30 Acetaminophen (Tylenol Liquid) 650 mg Q4H PRN GTB PAIN AND OR ELEVATED TEMP Last administered on 03/15/17 09:41; Admin Dose 650 MG; Start 02/05/17 at 18:30 IV Flush (NS 10 ml) 10 ml PRN PRN IV IV PROTOCOL; Start 02/07/17 at 14:30 Diphenhydramine HCl 25 mg 25 mg Q6H PRN IV itching Last administered on 00:00; Admin Dose 25 MG; Start 02/07/17 at 20:00 Ondansetron HCl/ Sodium Chloride (Zofran Inj/NS) 54 ml @ 216 mls/hr Q6H PRN IV NAUSEA AND/OR VOMITING; Start 02/09/17 at 11:30 Trimethobenzamide HCl (Tigan) 200 mg Q6H PRN IM NAUSEA AND/OR VOMITING; Start 02/10/17 at 19:30 Morphine Sulfate (morphine) 2 mg Q4H PRN IV pain Last administered on 01:44; Admin Dose 2 MG; Start 02/20/17 at 18:30 Docusate Sodium 100 mg 100 mg QHS PRN NGT For Constipation; Start 02/25/17 at 21:00 Acetaminophen (Ofirmev 1000mg/ 100ml Iv) 100 ml @ 50 mls/hr Q6H PRN IVPB fever Last administered on 03/06/17 20:44; Admin Dose 50 MLS/HR; Start at 07:30 Enoxaparin Sodium (Lovenox) 40 mg DAILY SC Last administered on 03/16/17 09:12 ; Admin Dose 40 MG; Start 03/03/17 at 09:00 Thiamine HCl (Vitamin B1) 100 mg AM PO Last administered on 03/16/17 09:02; Admin Dose 100 MG; Start 03/12/17 at 09:00; Stop 03/26/17 at 10:00 Zinc Sulfate (Zinc Sulfate) 220 mg DAILY PO Last administered on 03/16/17 09: 02; Admin Dose 220 MG; Start 03/12/17 at 09:00; Stop 03/26/17 at 10:00 Lorazepam (Ativan) 0.5 mg Q6H PRN IV ANXIETY Last administered on 03/13/17t 01: 16; Admin Dose 0.5 MG; Start 03/12/17 at 12:30 Furosemide (Lasix) 20 mg DAILY PEG ; Start 03/17/17 at 09:00 ROMAN OROZCO MD March 17, 2017 08:05
[2017-03-17] MEDS: THIAMINE 100 MG TAB PO SCH (09:22)
[2017-03-17] MEDS: ZINC SULFATE 220 MG CAP PO SCH (09:22)
[2017-03-17] MEDS: FUROSEMIDE 20 MG TAB PEG SCH (09:23)
[2017-03-17] MEDS: ENOXAPARIN 40 MG/0.4 ML SYG SC SCH (09:34)
--- NOTE | 2017-03-17 10:32 | PN ---
Date/Time of Note Date/Time of Note DATE: 03/17/17 TIME: 10:30 Assessment/Plan Lines/Catheters IV Catheter Type (from Nrs): Zeng in Place (from Nrs): No Assessment/Plan Assessment/Plan [facility] Progress Note Date of Service: 03/17/17 Today's Impression & Plan: Overall stable on the vent with trach; tolerating trach and PEG. Abd remains benign. Wound healing well. No indication for acute surgical intervention. With above assessment, I've recommended the following for today: 1. Cont current cares 2. F/u on cultures 3. Cont PEG enteric feeds 4. Cont weaning off the vent with continued pulmonary toilet 5. Cont gentle diuresis to BMP < 200 6. 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 Increase activity 8. Increase ICS 9. Cont current wound care with wound vac 10. Continue prophylactic anticoagulation (no contraindication from surgical standpoint) Thank you again for your great care of this very pleasant patient and wonderful family. If there are any questions, please feel free to call me at [phone]. TOTAL VISIT TIME: 20 minutes of which more than half was spent in [id number] discussion with the patient, possibly including family, as well as coordination of care between multiple physicians and providers. Disclaimer: Inadvertent spelling or grammatical errors are likely due to EHR/ dictation software use and do not reflect on the overall quality of patient care. Updated Clinical Summary: A very pleasant 46-year-old gentleman with history of Crohn's disease as well as prior surgery for anal fistula approximately 5 years ago, and a torn meniscus repair on the left knee, presenting with abdominal pain associated with a few weeks' duration of diarrhea. S/p an otherwise uncomplicated diagnostic laparoscopy was converted first to hand assist and then to open exploration when perforated sigmoid colon was found and it was resected with a Deena type procedure and end colostomy as well as core needle liver biopsy, segment 5, due to presence of fatty liver disease, lysis of adhesions, and abdominal lavage on 02/01/17. Failed to wean off the vent through 02/06/17. PE was evaluated 02/07/[address] angio and no evidence found. CT abd/pelvis also did not show actionable findings (no abscess; bowel thickening somewhat expected). Extubated 02/07/17. [employer] called early am 02/13/17 with a few minutes coding, requiring intubation and transfer to ICU. Fortunately, mentally appears to be intact and not on pressors. Lactic acid and CO2 normal with benign appearing abd and viable ostomy. Complicated by fascia dehiscence. S/p exploration of abdomen through recent laparotomy, primary closure of fascia and abdominal lavage on 02/15/17. Reintubated 02/25/17 for bronchoscopy to remove mucus plug. Extubated 02/28/17. Re-intubated 03/05/17 due to respiratory failure and hypoxia. 03/05/17: HIV negative and hepatitis B&C neg. Brain MRI did not contribute to the diagnosis, but no mass effect, obvious hemorrhage or other explanatory findings. S/p trach and PEG 03/09/17. COMORBIDITIES: 1. Crohn disease with perforation of sigmoid colon and sepsis. S/p an otherwise uncomplicated diagnostic laparoscopy was converted first to hand assist and then to open exploration when perforated sigmoid colon was found and it was resected with a Deena type procedure and end colostomy as well as core needle liver biopsy, segment 5, due to presence of fatty liver disease, lysis of adhesions, and abdominal lavage on 02/01/17. Complicated by respiratory failure, return trip to ICU and fascia dehiscence. S/p exploration of abdomen through recent laparotomy, primary closure of fascia and abdominal lavage on 02/15. 2. Repair of a fistula approximately 5 years ago. 3. Torn meniscus on the left knee status post repair. 4. S/p trach and PEG 03/09/17 at [facility]. Subjective: No major events or complications; remains on the vent; seems interactive; does not report any major abdominal pain, SOB, CP or nausea Objective: Vitals: See below Exam: GENERAL: On exam, the patient was laying in bed and appeared to be comfortable and in no acute distress. On the vent with trach. Eyes open and responds to voice. ABDOMEN: Soft, nontender and nondistended. Incision wound vac dressings clean without any evidence of obvious erythema, edema, discharge, or hernia. Wound vac with no sig drainage. Surgery drain site clean. Ostomy pink and viable; some air and stool in the bag. There are no peritoneal signs or guarding. PEG in place and tube feeing ongoing. SKIN: Skin appears to be pink and feels warm to touch. NEUROLOGIC: Patient's eyes open and responds to voice. and follows simple commands appropriately. Exam/Review of Systems Vital Signs Vitals Vital Signs Date Time Temp Pulse Resp B/P Pulse Ox O2 Delivery O2 Flow Rate FiO2 03/17/17 09:37 96 27 98 35 03/17/17 07:35 98.2 123/74 Intake and Output 03/16/17 03/16/17 03/17/17 15:00 23:00 07:00 Intake Total 1040 ml 1040 ml Output Total 1700 ml 1400 ml Balance -660 ml -360 ml Results Result Diagram: 03/15/17 1115 03/17/17 0601 TI HILTON M.D. March 17, 2017 10:32
[2017-03-17 10:33] LABS: BASOPHIL # 0.1 10^3/ul (0.0-0.1); BASOPHILS % 0.3 % (0.0-2.0); EOSINOPHILS # 0.3 10^3/ul (0.0-0.5); HEMATOCRIT 27.6 % (42.0-52.0); HEMOGLOBIN 8.6 g/dl (14.0-18.0); LYMPHOCYTES # 0.8 10^3/ul (0.8-2.9); MEAN CORPUSCULAR HEMOGLOBIN 27.4 pg (29.0-33.0); MEAN CORPUSCULAR HGB CONC 31.2 g/dl (32.0-37.0); MEAN CORPUSCULAR VOLUME 87.9 fl (82.0-101.0); MEAN PLATELET VOLUME 11.9 fl (7.4-10.4); MONOCYTE # 1.3 10^3/ul (0.3-0.9); MONOCYTES % 8.1 % (0.0-11.0); NEUTROPHIL # 13.3 10^3/ul (1.6-7.5); NEUTROPHILS % 83.8 % (39.0-77.0); PLATELET COUNT 472 10^3/UL (140-415); RED BLOOD COUNT 3.14 10^6/ul (4.70-6.10); RED CELL DISTRIBUTION WIDTH 15.3 % (11.5-14.5); WHITE BLOOD COUNT 15.9 10^3/ul (4.8-10.8)
--- NOTE | 2017-03-17 11:47 | PN ---
DATE: 03/17/2017 PAIN MANAGEMENT PALLIATIVE CARE We are waiting for patient to be evaluated by [facility] and possibly patient will be transferred there. I have asked him whether or not he has any complaints of discomfort. He shakes his head negative. Continue to follow him. I suspect he may have some ongoing discomfort w hen he starts to ambulate on [facility] and we will continue speak to family members. Dictated By: ZAK HEARN MD, LP/YAN Conf#: [id number] DID#: [id number]
--- NOTE | 2017-03-17 13:32 | PN ---
Date/Time of Note Date/Time of Note DATE: 03/17/17 TIME: 13:31 Assessment/Plan VTE Prophylaxis VTE Prophylaxis Intervention: SCD's Lines/Catheters IV Catheter Type (from Nrs): Urinary Cath still in place: Yes Reason Cath still needed: urinary retention Assessment/Plan Assessment/Plan Perforated colon status post surgery Severe sepsis Respiratory failure-status post tracheostomy Low normal ejection fraction 50% Acute decompensated diastolic congestive heart failure-improved Crohn's disease Acute blood loss anemia -Continue maintenance diuretics as needed with close monitoring of renal function and electrolytes. Maintain potassium above 4.0 and magnesium above 2.0. Subjective 24 Hr Interval Summary Free Text/Dictation the patient with no cahgne Exam/Review of Systems Vital Signs Vitals Vital Signs Date Time Temp Pulse Resp B/P Pulse Ox O2 Delivery O2 Flow Rate FiO2 03/17/17 13:20 95 16 98 35 03/17/17 11:05 98.0 115/65 Intake and Output 03/16/17 03/16/17 03/17/17 15:00 23:00 07:00 Intake Total 1040 ml 1040 ml Output Total 1700 ml 1400 ml Balance -660 ml -360 ml Results Result Diagram: 03/17/17 0601 03/17/17 0601 Results 24 hrs Laboratory Tests Test 03/17/17 06:01 White Blood Count 15.9 H Red Blood Count 3.14 L Hemoglobin 8.6 L Hematocrit 27.6 L Mean Corpuscular Volume 87.9 Mean Corpuscular Hemoglobin 27.4 L Mean Corpuscular Hemoglobin Concent 31.2 L Red Cell Distribution Width 15.3 H Platelet Count 472 H Mean Platelet Volume 11.9 H Neutrophils % 83.8 H Lymphocytes % 5.0 L Monocytes % 8.1 Eosinophils % 2.0 Basophils % 0.3 Nucleated Red Blood Cells % 0.0 Neutrophils # 13.3 H Lymphocytes # 0.8 Monocytes # 1.3 H Eosinophils # 0.3 Basophils # 0.1 Nucleated Red Blood Cells # 0.0 Sodium Level 132 L Potassium Level 4.1 Chloride Level 93 L Carbon Dioxide Level 30 Anion Gap 13 Blood Urea Nitrogen 21 H Creatinine 0.49 L Glucose Level 98 Calcium Level 9.8 Magnesium Level 1.5 L Medications Medications Current Medications Pantoprazole (Protonix Iv) 40 mg DAILY@06 IV Last administered on 03/17/17t 06: 01; Admin Dose 40 MG; Start 4/17/17 at 06:00 Acetaminophen/ Hydrocodone Bitart ([place] (5/325)) 1 tab Q4H PRN PO PAIN LEVEL 4 -7 Last administered on 03/14/17 21:02; Admin Dose 1 TAB; Start 02/01/17 at 20: 30 Acetaminophen/ Hydrocodone Bitart ([place] (5/325)) 2 tab Q4H PRN PO PAIN LEVEL 7 -10 Last administered on 03/13/17 22:39; Admin Dose 2 TAB; Start 02/01/17 at 20 :30 Bisacodyl (Dulcolax Supp) 10 mg BID PRN MD CONSTIPATION; Start 02/01/17 at 20: 30 Sodium Biphosphate/ Sodium Phosphate (Fleet Enema) 133 ml BID PRN MD CONSTIPATION; Start 02/01/17 at 20:30 Acetaminophen (Tylenol Liquid) 650 mg Q4H PRN GTB PAIN AND OR ELEVATED TEMP Last administered on 03/15/17 09:41; Admin Dose 650 MG; Start 02/05/17 at 18:30 IV Flush (NS 10 ml) 10 ml PRN PRN IV IV PROTOCOL; Start 02/07/17 at 14:30 Diphenhydramine HCl 25 mg 25 mg Q6H PRN IV itching Last administered on 00:00; Admin Dose 25 MG; Start 02/07/17 at 20:00 Ondansetron HCl/ Sodium Chloride (Zofran Inj/NS) 54 ml @ 216 mls/hr Q6H PRN IV NAUSEA AND/OR VOMITING; Start 02/09/17 at 11:30 Trimethobenzamide HCl (Tigan) 200 mg Q6H PRN IM NAUSEA AND/OR VOMITING; Start 02/10/17 at 19:30 Morphine Sulfate (morphine) 2 mg Q4H PRN IV pain Last administered on 01:44; Admin Dose 2 MG; Start 02/20/17 at 18:30 Docusate Sodium 100 mg 100 mg QHS PRN NGT For Constipation; Start 02/25/17 at 21:00 Acetaminophen (Ofirmev 1000mg/ 100ml Iv) 100 ml @ 50 mls/hr Q6H PRN IVPB fever Last administered on 03/06/17 20:44; Admin Dose 50 MLS/HR; Start at 07:30 Enoxaparin Sodium (Lovenox) 40 mg DAILY SC Last administered on 03/17/17 09:34 ; Admin Dose 40 MG; Start 03/03/17 at 09:00 Thiamine HCl (Vitamin B1) 100 mg AM PO Last administered on 03/17/17 09:22; Admin Dose 100 MG; Start 03/12/17 at 09:00; Stop 03/26/17 at 10:00 Zinc Sulfate (Zinc Sulfate) 220 mg DAILY PO Last administered on 03/17/17 09: 22; Admin Dose 220 MG; Start 03/12/17 at 09:00; Stop 03/26/17 at 10:00 Lorazepam (Ativan) 0.5 mg Q6H PRN IV ANXIETY Last administered on 03/13/17 01: 16; Admin Dose 0.5 MG; Start 03/12/17 at 12:30 Furosemide (Lasix) 20 mg DAILY PEG Last administered on 03/17/17 09:23; Admin Dose 20 MG; Start 03/17/17 at 09:00 FILEMON WYNNE MD March 17, 2017 13:32
--- NOTE | 2017-03-17 15:15 | PN ---
Date/Time of Note Date/Time of Note DATE: 03/17/17 TIME: 15:13 Assessment/Plan VTE Prophylaxis VTE Prophylaxis Intervention: SCD's Lines/Catheters IV Catheter Type (from [facility]): Urinary Cath still in place: Yes Reason Cath still needed: other (indicate) Assessment/Plan Chief Complaint/Hosp Course Assessment/Plan 1. Perforated sigmoid colon 2/2 Severe Crohn's colitis * S/p Urgent Open Cronin's procedure with end colostomy, liver biopsy and abdominal lavage 02/01/17 * S/p post operative paracolic abscess drained via CT 02/14/[address] * S/p Exploration of abdomen through recent laparotomy site with closure of fascia done 02/15/17 for Fascia dehiscence * PEG placed 4 days ago - continue PEG feeds. 2. Recurrent Resp failure: Extubated then reintubated 02/13, extubated, then reintubated 02/25/17, then extubated 02/27 and reintubated 03/04 * Status post bronchoscopy with clearance of extensive secretions in the left mainstem bronchus with improved aeration radiographically 02/25 * Pulm concerned about possible neuro muscular injury contributing to recurrent resp failure - s/p trach placement ,continue vent management 3. Exacerbation of Crohn's disease with acute colitis and diarrhea Cultures earlier were growing ecoli / proteus / enterococcus 4. Multifocal PNA + Mook Pleural effusions - Effusions likely hydrostatic from hypoalbuminemia. + fevers - monitor, ID managing abx and antifungal 5. Severe Sepsis with lactic acidosis 2/2 severe colitis / PNA - Continue abx per ID 6. S/p Systemic shock (hypovolemic +septic) - again, see # 5, abx: Resolved 7. Status post TPN therapy for low prealbumin: At this time patient is on PEG tube feeding 8. Hx of heavy alcohol and tobacco use just until admission - monitor 9. Probable underlying COPD and Cirrhosis based on hx which explains hypoalbuminemia and anasarca - monitor 10. Severe recurrent anemia likely 2/2 occult blood loss from multiple sources : PRN transfusions 11. Hypomagnesemia - replete as needed 12. Encephalopathy / Confusion, resolving, patient may have suffered some anoxic brain insult during the course of his hospitalization. Appreciate Neuro consult - likely multifactorial. Also MRI concerning for possible ostiomeatal unit obstruction / appreciate ENT input on this - continue current tx for now. Dispo: Continue current regimen SNF versus [facility] placement pending Follow-up check airman and general surgery recommendation Problems: Subjective 24 Hr Interval Summary Free Text/Dictation No acute changes Lying on the bed comfortably without any acute distress Exam/Review of Systems Vital Signs Vitals Vital Signs Date Time Temp Pulse Resp B/P Pulse Ox O2 Delivery O2 Flow Rate FiO2 03/17/17 13:20 95 16 98 35 03/17/17 11:05 98.0 115/65 Intake and Output 03/16/17 03/16/17 03/17/17 15:00 23:00 07:00 Intake Total 1040 ml 1040 ml Output Total 1700 ml 1400 ml Balance -660 ml -360 ml Exam General: The patient is underweight, Not in acute distress. HEENT: , normocephalic. The pupils are equal and round . Neck: Trach in place Chest: Normal expansion of the thorax during inspiration Lungs: Clear to auscultation bilaterally Heart: Normal S1-S2, Regular rhythm and rate. Abdomen: Soft , nontender, nondistended , bowel sounds are present. Wound VAC and PEG tube in place Extremities: Evidence of muscle wasting bilateral lower extremity, no edema no cyanosis Neurologic: Normal mental status,The patient is awake, alert and oriented . Results Result Diagram: 03/17/17 0603/17/17 06 Results 24 hrs Laboratory Tests Test 03/17/17 06:01 White Blood Count 15.9 H Red Blood Count 3.14 L Hemoglobin 8.6 L Hematocrit 27.6 L Mean Corpuscular Volume 87.9 Mean Corpuscular Hemoglobin 27.4 L Mean Corpuscular Hemoglobin Concent 31.2 L Red Cell Distribution Width 15.3 H Platelet Count 472 H Mean Platelet Volume 11.9 H Neutrophils % 83.8 H Lymphocytes % 5.0 L Monocytes % 8.1 Eosinophils % 2.0 Basophils % 0.3 Nucleated Red Blood Cells % 0.0 Neutrophils # 13.3 H Lymphocytes # 0.8 Monocytes # 1.3 H Eosinophils # 0.3 Basophils # 0.1 Nucleated Red Blood Cells # 0.0 Sodium Level 132 L Potassium Level 4.1 Chloride Level 93 L Carbon Dioxide Level 30 Anion Gap 13 Blood Urea Nitrogen 21 H Creatinine 0.49 L Glucose Level 98 Calcium Level 9.8 Magnesium Level 1.5 L Medications Medications Current Medications Pantoprazole (Protonix Iv) 40 mg DAILY@06 IV Last administered on 03/17/17 06: 01; Admin Dose 40 MG; Start 02/01/17 at 06:00 Acetaminophen/ Hydrocodone Bitart ([place] (5/325)) 1 tab Q4H PRN PO PAIN LEVEL 4 -7 Last administered on 03/14/17 21:02; Admin Dose 1 TAB; Start 02/01/17 at 20: 30 Acetaminophen/ Hydrocodone Bitart ([place] (5/325)) 2 tab Q4H PRN PO PAIN LEVEL 7 -10 Last administered on 03/13/17 22:39; Admin Dose 2 TAB; Start 02/01/17 at 20 :30 Bisacodyl (Dulcolax Supp) [address] CONSTIPATION; Start 02/01/17 at 20: 30 Sodium Biphosphate/ Sodium Phosphate (Fleet Enema) [address] CONSTIPATION; Start 02/01/17 at 20:30 Acetaminophen (Tylenol Liquid) 650 mg Q4H PRN GTB PAIN AND OR ELEVATED TEMP Last administered on 03/15/17 09:41; Admin Dose 650 MG; Start 02/05/17 at 18:30 IV Flush (NS 10 ml) 10 ml PRN PRN IV IV PROTOCOL; Start 02/07/17 at 14:30 Diphenhydramine HCl 25 mg 25 mg Q6H PRN IV itching Last administered on 00:00; Admin Dose 25 MG; Start 02/07/17 at 20:00 Ondansetron HCl/ Sodium Chloride (Zofran Inj/NS) 54 ml @ 216 mls/hr Q6H PRN IV NAUSEA AND/OR VOMITING; Start 02/09/17 at 11:30 Trimethobenzamide HCl (Tigan) 200 mg Q6H PRN IM NAUSEA AND/OR VOMITING; Start 02/10/17 at 19:30 Morphine Sulfate (morphine) 2 mg Q4H PRN IV pain Last administered on 01:44; Admin Dose 2 MG; Start 02/20/17 at 18:30 Docusate Sodium 100 mg 100 mg QHS PRN NGT For Constipation; Start 02/25/17 at 21:00 Acetaminophen (Ofirmev 1000mg/ 100ml Iv) 100 ml @ 50 mls/hr Q6H PRN IVPB fever Last administered on 03/06/17 20:44; Admin Dose 50 MLS/HR; Start at 07:30 Enoxaparin Sodium (Lovenox) 40 mg DAILY SC Last administered on 03/17/17 09:34 ; Admin Dose 40 MG; Start 03/03/17 at 09:00 Thiamine HCl (Vitamin B1) 100 mg AM PO Last administered on 03/17/17 09:22; Admin Dose 100 MG; Start 03/12/17 at 09:00; Stop 03/26/17 at 10:00 Zinc Sulfate (Zinc Sulfate) 220 mg DAILY PO Last administered on 03/17/17 09: 22; Admin Dose 220 MG; Start 03/12/17 at 09:00; Stop 03/26/17 at 10:00 Lorazepam (Ativan) 0.5 mg Q6H PRN IV ANXIETY Last administered on 03/13/17 01: 16; Admin Dose 0.5 MG; Start 03/12/17 at 12:30 Furosemide (Lasix) 20 mg DAILY PEG Last administered on 03/17/17 09:23; Admin Dose 20 MG; Start 03/17/17 at 09:00 CRISTIANA LAM MD March 17, 2017 15:15
--- NOTE | 2017-03-17 15:30 | CONS ---
Date/Time of Note Date/Time of Note DATE: 03/17/17 TIME: 15:27 Consult Date/Type/Reason Admit Date/Time Feb 01, 2017 at 03:10 Type of Consultation: Pulmonary Ordering Provider: VINCE PADGETT Subjective Patient stable this morning no new events Objective Vital Signs Date Time Temp Pulse Resp B/P Pulse Ox O2 Delivery O2 Flow Rate FiO2 03/17/17 15:26 98.2 89 16 122/65 99 03/17/17 13:20 35 Intake and Output 03/16/17 03/16/17 03/17/17 14:59 22:59 06:59 Intake Total 1040 ml 1040 ml Output Total 1700 ml 1400 ml Balance -660 ml -360 ml Exam PHYSICAL EXAMINATION GENERAL: Chronically ill appearing gentleman comfortable at rest VITAL SIGNS: see below. HEENT: Pupils equal, round, and reactive to light. Tracheostomy site clean and intact. CARDIAC: S1, S2, 1/6 systolic ejection murmur CHEST: Diminished air entry bilaterally. ABDOMEN: Mildly distended. Bowel sounds present no guarding or rebound EXTREMITIES: No cyanosis, clubbing edema +1 NEUROLOGIC: Generalized weakness Results/Medications Result Diagram: 03/17/17 0601 03/17/17 0601 Results 24 hrs Laboratory Tests Test 03/17/17 06:01 White Blood Count 15.9 H Red Blood Count 3.14 L Hemoglobin 8.6 L Hematocrit 27.6 L Mean Corpuscular Volume 87.9 Mean Corpuscular Hemoglobin 27.4 L Mean Corpuscular Hemoglobin Concent 31.2 L Red Cell Distribution Width 15.3 H Platelet Count 472 H Mean Platelet Volume 11.9 H Neutrophils % 83.8 H Lymphocytes % 5.0 L Monocytes % 8.1 Eosinophils % 2.0 Basophils % 0.3 Nucleated Red Blood Cells % 0.0 Neutrophils # 13.3 H Lymphocytes # 0.8 Monocytes # 1.3 H Eosinophils # 0.3 Basophils # 0.1 Nucleated Red Blood Cells # 0.0 Sodium Level 132 L Potassium Level 4.1 Chloride Level 93 L Carbon Dioxide Level 30 Anion Gap 13 Blood Urea Nitrogen 21 H Creatinine 0.49 L Glucose Level 98 Calcium Level 9.8 Magnesium Level 1.5 L Medications Current Medications Pantoprazole (Protonix Iv) 40 mg DAILY@06 IV Last administered on 03/17/17t 06: 01; Admin Dose 40 MG; Start 02/01/17 at 06:00 Acetaminophen/ Hydrocodone Bitart ([place] (5/325)) 1 tab Q4H PRN PO PAIN LEVEL 4 -7 Last administered on 03/14/17 21:02; Admin Dose 1 TAB; Start 02/01/17 at 20: 30 Acetaminophen/ Hydrocodone Bitart ([place] (5/325)) 2 tab Q4H PRN PO PAIN LEVEL 7 -10 Last administered on 03/13/17 22:39; Admin Dose 2 TAB; Start 02/01/17 at 20 :30 Bisacodyl (Dulcolax Supp) 10 mg BID PRN [place] CONSTIPATION; Start 02/01/17 at 20: 30 Sodium Biphosphate/ Sodium Phosphate (Fleet Enema) 133 ml BID PRN [place] CONSTIPATION; Start 02/01/17 at 20:30 Acetaminophen (Tylenol Liquid) 650 mg Q4H PRN GTB PAIN AND OR ELEVATED TEMP Last administered on 03/15/17 09:41; Admin Dose 650 MG; Start 02/05/17 at 18:30 IV Flush (NS 10 ml) 10 ml PRN PRN IV IV PROTOCOL; Start 02/07/17 at 14:30 Diphenhydramine HCl 25 mg 25 mg Q6H PRN IV itching Last administered on 00:00; Admin Dose 25 MG; Start 02/07/17 at 20:00 Ondansetron HCl/ Sodium Chloride (Zofran Inj/NS) 54 ml @ 216 mls/hr Q6H PRN IV NAUSEA AND/OR VOMITING; Start 02/09/17 at 11:30 Trimethobenzamide HCl (Tigan) 200 mg Q6H PRN IM NAUSEA AND/OR VOMITING; Start 02/10/17 at 19:30 Morphine Sulfate (morphine) 2 mg Q4H PRN IV pain Last administered on 01:44; Admin Dose 2 MG; Start 02/20/17 at 18:30 Docusate Sodium 100 mg 100 mg QHS PRN NGT For Constipation; Start 02/25/17 at 21:00 Acetaminophen (Ofirmev 1000mg/ 100ml Iv) 100 ml @ 50 mls/hr Q6H PRN IVPB fever Last administered on 03/06/17 20:44; Admin Dose 50 MLS/HR; Start at 07:30 Enoxaparin Sodium (Lovenox) 40 mg DAILY SC Last administered on 03/17/17 09:34 ; Admin Dose 40 MG; Start 03/03/17 at 09:00 Thiamine HCl (Vitamin B1) 100 mg AM PO Last administered on 03/17/17 09:22; Admin Dose 100 MG; Start 03/12/17 at 09:00; Stop 03/26/17 at 10:00 Zinc Sulfate (Zinc Sulfate) 220 mg DAILY PO Last administered on 03/17/17 09: 22; Admin Dose 220 MG; Start 03/12/17 at 09:00; Stop 03/26/17 at 10:00 Lorazepam (Ativan) 0.5 mg Q6H PRN IV ANXIETY Last administered on 03/13/17 01: 16; Admin Dose 0.5 MG; Start 03/12/17 at 12:30 Furosemide 20 mg 20 mg DAILY PEG Last administered on 03/17/17 09:23; Admin Dose 20 MG; Start 03/17/17 at 09:00 Magnesium Sulfate/ Sodium Chloride (Magnesium Sulfate/NS) 106 ml @ 35.333 mls/ hr ONCE ONCE IVPB ; Start 03/17/17 at 17:00; Stop 03/17/17 at 19:59 Assessment/Plan Chief Complaint/Hosp Course Assessment 1. Crohn's disease with perforation of sigmoid colon and sepsis status post arthroscopic sigmoid colectomy and end colostomy with lysis of adhesions 2. Resolved metabolic acidosis with septic shock 3. Encephalopathy toxic metabolic 4. Hypoxemic respiratory failure mucus plugging left mainstem bronchus status post intubation and bronchoscopy, now with tracheostomy in place 5. Thrombocytopenia resolved, likely underlying pneumonia 6. Anemia worsening hemoglobin no active GI bleeding stool guaiac negative questionable retroperitoneal bleed 7. Likely critical illness myopathy Plan 1. Continue mechanical ventilation, continue tracheostomy care 2. Bronchodilators as needed 3. Continue surgical wound care discussed with , 4. Continue broad-spectrum antibiotic coverage 5. DVT GI prophylaxis Disposition Pending transfer to subacute facility or [facility] Problems: RAMON DOUGLAS MD, FCCP March 17, 2017 15:30
[2017-03-17] MEDS: HYDROCODONE/APAP (5/325) TAB PO PRN (16:12)
[2017-03-17] MEDS ORDERED: MAGNESIUM SULFATE 3 GM in SOD CHLORIDE 0.9% 100 ML IVPB ONE (17:00)
--- NOTE | 2017-03-17 19:27 | CONS ---
Date/Time of Note Date/Time of Note DATE: 03/17/17 TIME: 19:26 Assessment/Plan Assessment/Plan Chief Complaint/Hosp Course SUBJECTIVE: No events. The patient is alert, looks comfortable, denies pain. INDWELLINGS: Trach, PEG, Zeng, PICC line. PHYSICAL EXAMINATION: GENERAL: Cachectic, well-developed, middle-aged white man who is alert, in no distress. HEENT: Head atraumatic, normocephalic. Sclerae anicteric. Buccal mucosa dry. NECK: Supple. Tracheostomy present. CHEST: Rise symmetrical. Breath sounds clear. HEART: S1, S2. ABDOMEN: Soft, bowel sounds present. EXTREMITIES: No cyanosis. ASSESSMENT: 1. Status post sepsis with shock. 2. Status post perforated diverticulitis repair. 3. Status post pneumonia. 4. Crohn's disease. 5. History of ETOH abuse. PLAN: The patient remains stable off antibiotics. We will repeat cultures p.r.n. DW staff . Problems: Consultation Date/Type/Reason Admit Date/Time Feb 01, 2017 at 03:10 Initial Consult Date 02/02/17 Type of Consultation: ID Referring Provider: VINCE PADGETT Exam/Review of Systems Vital Signs Vitals Vital Signs Date Time Temp Pulse Resp B/P Pulse Ox O2 Delivery O2 Flow Rate FiO2 03/17/17 17:13 92 23 97 35 03/17/17 15:26 98.2 122/65 Intake and Output 03/16/17 03/16/17 03/17/17 15:00 23:00 07:00 Intake Total 1040 ml 1040 ml Output Total 1700 ml 1400 ml Balance -660 ml -360 ml Results Result Diagram: 03/17/17 0601 03/17/17 0601 Results 24 hrs Laboratory Tests Test 03/17/17 06:01 White Blood Count 15.9 H Red Blood Count 3.14 L Hemoglobin 8.6 L Hematocrit 27.6 L Mean Corpuscular Volume 87.9 Mean Corpuscular Hemoglobin 27.4 L Mean Corpuscular Hemoglobin Concent 31.2 L Red Cell Distribution Width 15.3 H Platelet Count 472 H Mean Platelet Volume 11.9 H Neutrophils % 83.8 H Lymphocytes % 5.0 L Monocytes % 8.1 Eosinophils % 2.0 Basophils % 0.3 Nucleated Red Blood Cells % 0.0 Neutrophils # 13.3 H Lymphocytes # 0.8 Monocytes # 1.3 H Eosinophils # 0.3 Basophils # 0.1 Nucleated Red Blood Cells # 0.0 Sodium Level 132 L Potassium Level 4.1 Chloride Level 93 L Carbon Dioxide Level 30 Anion Gap 13 Blood Urea Nitrogen 21 H Creatinine 0.49 L Glucose Level 98 Calcium Level 9.8 Magnesium Level 1.5 L Medications Medications Current Medications Pantoprazole (Protonix Iv) 40 mg DAILY@06 IV Last administered on 03/17/17 06: 01; Admin Dose 40 MG; Start 02/01/17 at 06:00 Acetaminophen/ Hydrocodone Bitart ([place] (5/325)) 1 tab Q4H PRN PO PAIN LEVEL 4 -7 Last administered on 03/17/17 16:12; Admin Dose 1 TAB; Start 02/01/17 at 20: 30 Acetaminophen/ Hydrocodone Bitart ([place] (5/325)) 2 tab Q4H PRN PO PAIN LEVEL 7 -10 Last administered on 03/13/17 22:39; Admin Dose 2 TAB; Start 02/01/17 at 20 :30 Bisacodyl (Dulcolax Supp) 10 mg BID PRN [place] CONSTIPATION; Start 02/01/17 at 20: 30 Sodium Biphosphate/ Sodium Phosphate (Fleet Enema) 133 ml BID PRN [place] CONSTIPATION; Start 02/01/17 at 20:30 Acetaminophen (Tylenol Liquid) 650 mg Q4H PRN GTB PAIN AND OR ELEVATED TEMP Last administered on 03/15/17 09:41; Admin Dose 650 MG; Start 02/05/17 at 18:30 IV Flush (NS 10 ml) 10 ml PRN PRN IV IV PROTOCOL; Start 02/07/17 at 14:30 Diphenhydramine HCl 25 mg 25 mg Q6H PRN IV itching Last administered on 00:00; Admin Dose 25 MG; Start 02/07/17 at 20:00 Ondansetron HCl/ Sodium Chloride (Zofran Inj/NS) 54 ml @ 216 mls/hr Q6H PRN IV NAUSEA AND/OR VOMITING; Start 02/09/17 at 11:30 Trimethobenzamide HCl (Tigan) 200 mg Q6H PRN IM NAUSEA AND/OR VOMITING; Start 02/10/17 at 19:30 Morphine Sulfate (morphine) 2 mg Q4H PRN IV pain Last administered on 01:44; Admin Dose 2 MG; Start 02/20/17 at 18:30 Docusate Sodium 100 mg 100 mg QHS PRN NGT For Constipation; Start 02/25/17 at 21:00 Acetaminophen (Ofirmev 1000mg/ 100ml Iv) 100 ml @ 50 mls/hr Q6H PRN IVPB fever Last administered on 03/06/17 20:44; Admin Dose 50 MLS/HR; Start at 07:30 Enoxaparin Sodium (Lovenox) 40 mg DAILY SC Last administered on 03/17/17 09:34 ; Admin Dose 40 MG; Start 03/03/17 at 09:00 Thiamine HCl (Vitamin B1) 100 mg AM PO Last administered on 03/17/17 09:22; Admin Dose 100 MG; Start 03/12/17 at 09:00; Stop 03/26/17 at 10:00 Zinc Sulfate (Zinc Sulfate) 220 mg DAILY PO Last administered on 03/17/17 09: 22; Admin Dose 220 MG; Start 03/12/17 at 09:00; Stop 03/26/17 at 10:00 Lorazepam (Ativan) 0.5 mg Q6H PRN IV ANXIETY Last administered on 03/13/17 01: 16; Admin Dose 0.5 MG; Start 03/12/17 at 12:30 Furosemide 20 mg 20 mg DAILY PEG Last administered on 03/17/17 09:23; Admin Dose 20 MG; Start 03/17/17 at 09:00 Magnesium Sulfate/ Sodium Chloride (Magnesium Sulfate/NS) 106 ml @ 35.333 mls/ hr ONCE ONCE IVPB Last administered on 03/17/17 16:44; Admin Dose 35.333 MLS/ HR; Start 03/17/17 at 17:00; Stop 03/17/17 at 19:59 THOMAS ELLIS NP March 17, 2017 19:27
[2017-03-17 20:58] LABS: AADO2 Arterial 105.2 mmHg (7.0-24.0); Allen Test ACCEPTAB; Arterial Base Excess 7.3 mmol/L (-3.0-3); Arterial COHb 0.3 % (0.0-3.0); Arterial Fraction of Oxyhgb 95.8 % (93.0-99.0); Arterial HCO3 31.8 mmol/L (22.0-26.0); Arterial MetHb 0.6 % (0.0-1.5); Arterial Total Hemglobin 8.9 g/dl (12.0-18.0); Blood Gas Mean Airway Pressure 10; Blood Gas PS 10; MODE VENT - CPAP
[2017-03-18] VITALS (24 sets, daily range): BP systolic 111–129; BP diastolic 69–78; PULSE 91–110; RESP 15–27
[2017-03-18] MEDS: morphine 2 MG INJ IV PRN (00:36)
[2017-03-18] MEDS: ACETYLCYSTEINE 20% 4 ML VIAL NEB SCH ×4 (01:33→19:33)
[2017-03-18] MEDS: ALBUTEROL 18 GM INHALER INH SCH ×4 (01:34→19:33)
[2017-03-18] MEDS: IPRATROPIUM (HFA) 12.9 GM INHALER INH SCH ×4 (01:34→19:33)
[2017-03-18] MEDS: PANTOPRAZOLE 40 MG INJ IV SCH (05:52)
[2017-03-18 06:15] LABS: ADD SCAN DIFF NO
[2017-03-18 06:29] LABS: BASOPHIL # 0.1 10^3/ul (0.0-0.1); BASOPHILS % 0.3 % (0.0-2.0); EOSINOPHILS # 0.2 10^3/ul (0.0-0.5); EOSINOPHILS % 1.3 % (0.0-7.0); HEMATOCRIT 25.9 % (42.0-52.0); HEMOGLOBIN 8.3 g/dl (14.0-18.0); LYMPHOCYTES # 0.9 10^3/ul (0.8-2.9); LYMPHOCYTES % 5.3 % (15.0-51.0); MEAN CORPUSCULAR HEMOGLOBIN 27.5 pg (29.0-33.0); MEAN CORPUSCULAR VOLUME 85.8 fl (82.0-101.0); MEAN PLATELET VOLUME 11.3 fl (7.4-10.4); MONOCYTE # 1.5 10^3/ul (0.3-0.9); MONOCYTES % 8.7 % (0.0-11.0); NEUTROPHILS % 83.7 % (39.0-77.0); PLATELET COUNT 470 10^3/UL (140-415); RED BLOOD COUNT 3.02 10^6/ul (4.70-6.10); RED CELL DISTRIBUTION WIDTH 15.5 % (11.5-14.5); WHITE BLOOD COUNT 16.7 10^3/ul (4.8-10.8)
[2017-03-18 07:16] LABS: ALBUMIN 3.4 g/dl (3.3-4.9); ALBUMIN/GLOBULIN RATIO 0.97; BILIRUBIN,INDIRECT 0.1 mg/dl (0-1.1); BILIRUBIN,TOTAL 0.1 mg/dl (0.2-1.3); CALCIUM 9.4 mg/dl (8.4-10.2); CREATININE 0.46 mg/dl (0.61-1.24); POTASSIUM 4.6 mmol/L (3.5-5.1); TOTAL PROTEIN 6.9 g/dl (6.1-8.1)
[2017-03-18] MEDS: ZINC SULFATE 220 MG CAP PO SCH (08:17)
[2017-03-18] MEDS: THIAMINE 100 MG TAB PO SCH (08:17)
[2017-03-18] MEDS: FUROSEMIDE 20 MG TAB PEG SCH (08:18)
[2017-03-18] MEDS: ENOXAPARIN 40 MG/0.4 ML SYG SC SCH (08:22)
[2017-03-18 09:15] LABS: AADO2 Arterial 91.9 mmHg (7.0-24.0); Allen Test ACCEPTAB; Arterial Base Excess 6.9 mmol/L (-3.0-3); Arterial COHb 0.3 % (0.0-3.0); Arterial Fraction of Oxyhgb 96.4 % (93.0-99.0); Arterial HCO3 31.3 mmol/L (22.0-26.0); Arterial MetHb 0.7 % (0.0-1.5); Arterial Total Hemglobin 7.9 g/dl (12.0-18.0); Blood Gas PS 10; MODE VENT - CPAP
--- NOTE | 2017-03-18 12:16 | CONS ---
Date/Time of Note Date/Time of Note DATE: 03/18/17 TIME: 12:15 Consult Date/Type/Reason Admit Date/Time Feb 01, 2017 at 03:10 Type of Consultation: Pulm Ordering Provider: VINCE PADGETT Subjective Comfortable, no new events. Objective Vital Signs Date Time Temp Pulse Resp B/P Pulse Ox O2 Delivery O2 Flow Rate FiO2 03/18/17 11:56 98.6 98 18 122/73 99 03/18/17 11:14 35 Intake and Output 03/17/17 03/17/17 03/18/17 15:00 23:00 07:00 Intake Total 1090 ml 335 ml Output Total 600 ml 600 ml Balance 490 ml -265 ml Exam PHYSICAL EXAMINATION GENERAL: Chronically ill appearing gentleman comfortable at rest VITAL SIGNS: see below. HEENT: Pupils equal, round, and reactive to light. Tracheostomy site clean and intact. CARDIAC: S1, S2, 1/6 systolic ejection murmur CHEST: Diminished air entry bilaterally. ABDOMEN: Mildly distended. Bowel sounds present no guarding or rebound EXTREMITIES: No cyanosis, clubbing edema +1 NEUROLOGIC: Generalized weakness Results/Medications Result Diagram: 03/18/17 0600 03/18/17 0600 Results 24 hrs Laboratory Tests Test 03/17/17 21:00 03/18/17 06:00 03/18/17 09:00 Blood Gas Specimen Source Blood arterial Blood arterial Arterial Blood Date Drawn 03/17/2017 8:46:13 PM 03/18/2017 8:55:21 AM Arterial Blood pH (Temp corrected) 7.466 H 7.466 H Arterial Blood pCO2 (Temp correct) 45.1 H 44.4 Arterial Blood pO2 (Temp corrected) 91.9 106.0 H Arterial Blood HCO3 31.8 H 31.3 H Arterial Blood Base Excess 7.3 H 6.9 H Arterial Blood Oxygen Saturation 96.7 97.4 Raffy Test ACCEPTAB ACCEPTAB Arterial Blood Gas Puncture Site Right Radial Right Radial Arterial Blood Carboxyhemoglobin 0.3 0.3 Arterial Blood Methemoglobin 0.6 0.7 Blood Gas A-a O2 Differential 105.2 H 91.9 H Oxyhemoglobin Percent 95.8 96.4 Total Hemoglobin 8.9 L 7.9 L Blood Gas Temperature 37.0 37.0 Blood Gas Actual Respiration Rate 22 20 Blood Gas Modality VENT - CPAP VENT - CPAP FiO2 35.0 35.0 Blood Gas Mean Airway Pressure 10 Blood Gas Low PEEP Setting 5.0 5.0 Blood Gas Pressure Support 10 10 Blood Gas Notified Whom SHERI VALENTIN Blood Gas Notified Time 03/17/2017 8:58:00 PM 03/18/2017 9:15:28 AM White Blood Count 16.7 H Red Blood Count 3.02 L Hemoglobin 8.3 L Hematocrit 25.9 L Mean Corpuscular Volume 85.8 Mean Corpuscular Hemoglobin 27.5 L Mean Corpuscular Hemoglobin Concent 32.0 Red Cell Distribution Width 15.5 H Platelet Count 470 H Mean Platelet Volume 11.3 H Neutrophils % 83.7 H Lymphocytes % 5.3 L Monocytes % 8.7 Eosinophils % 1.3 Basophils % 0.3 Nucleated Red Blood Cells % 0.0 Neutrophils # 14.0 H Lymphocytes # 0.9 Monocytes # 1.5 H Eosinophils # 0.2 Basophils # 0.1 Nucleated Red Blood Cells # 0.0 Sodium Level 132 L Potassium Level 4.6 Chloride Level 94 L Carbon Dioxide Level 31 Anion Gap 12 Blood Urea Nitrogen 21 H Creatinine 0.46 L Glucose Level 100 Calcium Level 9.4 Magnesium Level 2.0 Total Bilirubin 0.1 L Direct Bilirubin 0.00 Indirect Bilirubin 0.1 Aspartate Amino Transf (AST/SGOT) 21 Alanine Aminotransferase (ALT/SGPT) 27 Alkaline Phosphatase 142 H Total Protein 6.9 Albumin 3.4 Globulin 3.50 H Albumin/Globulin Ratio 0.97 Medications Current Medications Pantoprazole (Protonix Iv) 40 mg DAILY@06 IV Last administered on 03/18/17 05: 52; Admin Dose 40 MG; Start 02/01/17 at 06:00 Acetaminophen/ Hydrocodone Bitart ([place] (5/325)) 1 tab Q4H PRN PO PAIN LEVEL 4 -7 Last administered on 03/17/17 16:12; Admin Dose 1 TAB; Start 02/01/17 at 20: 30 Acetaminophen/ Hydrocodone Bitart ([place] (5/325)) 2 tab Q4H PRN PO PAIN LEVEL 7 -10 Last administered on 03/13/17 22:39; Admin Dose 2 TAB; Start 02/01/17 at 20 :30 Bisacodyl (Dulcolax Supp) 10 mg BID PRN [place] CONSTIPATION; Start 02/01/17 at 20: 30 Sodium Biphosphate/ Sodium Phosphate (Fleet Enema) 133 ml BID PRN [place] CONSTIPATION; Start 02/01/17 at 20:30 Acetaminophen (Tylenol Liquid) 650 mg Q4H PRN GTB PAIN AND OR ELEVATED TEMP Last administered on 03/15/17 09:41; Admin Dose 650 MG; Start 02/05/17 at 18:30 IV Flush (NS 10 ml) 10 ml PRN PRN IV IV PROTOCOL; Start 02/07/17 at 14:30 Diphenhydramine HCl 25 mg 25 mg Q6H PRN IV itching Last administered on 00:00; Admin Dose 25 MG; Start 02/07/17 at 20:00 Ondansetron HCl/ Sodium Chloride (Zofran Inj/NS) 54 ml @ 216 mls/hr Q6H PRN IV NAUSEA AND/OR VOMITING; Start 02/09/17 at 11:30 Trimethobenzamide HCl (Tigan) 200 mg Q6H PRN IM NAUSEA AND/OR VOMITING; Start 02/10/17 at 19:30 Morphine Sulfate (morphine) 2 mg Q4H PRN IV pain Last administered on 03/18/17 00:36; Admin Dose 2 MG; Start 02/20/17 at 18:30 Docusate Sodium 100 mg 100 mg QHS PRN NGT For Constipation; Start 02/25/17 at 21:00 Acetaminophen (Ofirmev 1000mg/ 100ml Iv) 100 ml @ 50 mls/hr Q6H PRN IVPB fever Last administered on 03/06/17 20:44; Admin Dose 50 MLS/HR; Start at 07:30 Enoxaparin Sodium (Lovenox) 40 mg DAILY SC Last administered on 03/18/17 08:22 ; Admin Dose 40 MG; Start 03/03/17 at 09:00 Thiamine HCl (Vitamin B1) 100 mg AM PO Last administered on 03/18/17 08:17; Admin Dose 100 MG; Start 03/12/17 at 09:00; Stop 03/26/17 at 10:00 Zinc Sulfate (Zinc Sulfate) 220 mg DAILY PO Last administered on 03/18/17 08:17 ; Admin Dose 220 MG; Start 03/12/17 at 09:00; Stop 03/26/17 at 10:00 Lorazepam (Ativan) 0.5 mg Q6H PRN IV ANXIETY Last administered on 03/13/17 01: 16; Admin Dose 0.5 MG; Start 03/12/17 at 12:30 Furosemide (Lasix) 20 mg DAILY PEG Last administered on 03/18/17 08:18; Admin Dose 20 MG; Start 03/17/17 at 09:00 Assessment/Plan Chief Complaint/Hosp Course Assessment 1. Crohn's disease with perforation of sigmoid colon and sepsis status post arthroscopic sigmoid colectomy and end colostomy with lysis of adhesions 2. Resolved metabolic acidosis with septic shock 3. Encephalopathy toxic metabolic 4. Hypoxemic respiratory failure mucus plugging left mainstem bronchus status post intubation and bronchoscopy, now with tracheostomy in place 5. Thrombocytopenia resolved, likely underlying pneumonia 6. Anemia worsening hemoglobin no active GI bleeding stool guaiac negative questionable retroperitoneal bleed 7. Likely critical illness myopathy Plan 1. Continue mechanical ventilation, continue tracheostomy care 2. Bronchodilators as needed 3. Continue surgical wound care discussed with , 4. Continue broad-spectrum antibiotic coverage 5. DVT GI prophylaxis Disposition Pending transfer to subacute facility or [facility] Problems: RAMON DOUGLAS MD, [facility] Mar 18, 2017 12:16
--- NOTE | 2017-03-18 13:00 | PN ---
Date/Time of Note Date/Time of Note DATE: 03/18/17 TIME: 12:59 Assessment/Plan VTE Prophylaxis VTE Prophylaxis Intervention: SCD's Lines/Catheters IV Catheter Type (from Nrs): Saline Lock Urinary Cath still in place: Yes Reason Cath still needed: urinary retention Assessment/Plan Assessment/Plan Perforated colon status post surgery Severe sepsis Respiratory failure-status post tracheostomy Low normal ejection fraction 50% Acute decompensated diastolic congestive heart failure-improved Crohn's disease Acute blood loss anemia -Continue maintenance diuretics as needed with close monitoring of renal function and electrolytes. Maintain potassium above 4.0 and magnesium above 2.0. Subjective 24 Hr Interval Summary Free Text/Dictation the patient stable Exam/Review of Systems Vital Signs Vitals Vital Signs Date Time Temp Pulse Resp B/P Pulse Ox O2 Delivery O2 Flow Rate FiO2 03/18/17 12:00 98 03/18/17 11:56 98.6 18 122/73 99 03/18/17 11:14 35 Intake and Output 03/17/17 03/17/17 03/18/17 15:00 23:00 07:00 Intake Total 1090 ml 335 ml Output Total 600 ml 600 ml Balance 490 ml -265 ml Results Result Diagram: 03/18/17 0600 03/18/17 0600 Results 24 hrs Laboratory Tests Test 03/17/17 21:00 03/18/17 06:00 03/18/17 09:00 Blood Gas Specimen Source Blood arterial Blood arterial Arterial Blood Date Drawn 03/17/2017 8:46:13 PM 03/18/2017 8:55:21 AM Arterial Blood pH (Temp corrected) 7.466 H 7.466 H Arterial Blood pCO2 (Temp correct) 45.1 H 44.4 Arterial Blood pO2 (Temp corrected) 91.9 106.0 H Arterial Blood HCO3 31.8 H 31.3 H Arterial Blood Base Excess 7.3 H 6.9 H Arterial Blood Oxygen Saturation 96.7 97.4 Raffy Test ACCEPTAB ACCEPTAB Arterial Blood Gas Puncture Site Right Radial Right Radial Arterial Blood Carboxyhemoglobin 0.3 0.3 Arterial Blood Methemoglobin 0.6 0.7 Blood Gas A-a O2 Differential 105.2 H 91.9 H Oxyhemoglobin Percent 95.8 96.4 Total Hemoglobin 8.9 L 7.9 L Blood Gas Temperature 37.0 37.0 Blood Gas Actual Respiration Rate 22 20 Blood Gas Modality VENT - CPAP VENT - CPAP FiO2 35.0 35.0 Blood Gas Mean Airway Pressure 10 Blood Gas Low PEEP Setting 5.0 5.0 Blood Gas Pressure Support 10 10 Blood Gas Notified Whom SHERI VALNETIN Blood Gas Notified Time 03/17/2017 8:58:00 PM 03/18/2017 9:15:28 AM White Blood Count 16.7 H Red Blood Count 3.02 L Hemoglobin 8.3 L Hematocrit 25.9 L Mean Corpuscular Volume 85.8 Mean Corpuscular Hemoglobin 27.5 L Mean Corpuscular Hemoglobin Concent 32.0 Red Cell Distribution Width 15.5 H Platelet Count 470 H Mean Platelet Volume 11.3 H Neutrophils % 83.7 H Lymphocytes % 5.3 L Monocytes % 8.7 Eosinophils % 1.3 Basophils % 0.3 Nucleated Red Blood Cells % 0.0 Neutrophils # 14.0 H Lymphocytes # 0.9 Monocytes # 1.5 H Eosinophils # 0.2 Basophils # 0.1 Nucleated Red Blood Cells # 0.0 Sodium Level 132 L Potassium Level 4.6 Chloride Level 94 L Carbon Dioxide Level 31 Anion Gap 12 Blood Urea Nitrogen 21 H Creatinine 0.46 L Glucose Level 100 Calcium Level 9.4 Magnesium Level 2.0 Total Bilirubin 0.1 L Direct Bilirubin 0.00 Indirect Bilirubin 0.1 Aspartate Amino Transf (AST/SGOT) 21 Alanine Aminotransferase (ALT/SGPT) 27 Alkaline Phosphatase 142 H Total Protein 6.9 Albumin 3.4 Globulin 3.50 H Albumin/Globulin Ratio 0.97 Medications Medications Current Medications Pantoprazole (Protonix Iv) 40 mg DAILY@06 IV Last administered on 03/18/17 05: 52; Admin Dose 40 MG; Start 02/01/17 at 06:00 Acetaminophen/ Hydrocodone Bitart ([place] (5/325)) 1 tab Q4H PRN PO PAIN LEVEL 4 -7 Last administered on 03/17/17 16:12; Admin Dose 1 TAB; Start 02/01/17 at 20: 30 Acetaminophen/ Hydrocodone Bitart ([place] (5/325)) 2 tab Q4H PRN PO PAIN LEVEL 7 -10 Last administered on 03/13/17 22:39; Admin Dose 2 TAB; Start 02/01/17 at 20 :30 Bisacodyl (Dulcolax Supp) 10 mg BID PRN [place] CONSTIPATION; Start 02/01/17 at 20: 30 Sodium Biphosphate/ Sodium Phosphate (Fleet Enema) 133 ml BID PRN [place] CONSTIPATION; Start 02/01/17 at 20:30 Acetaminophen (Tylenol Liquid) 650 mg Q4H PRN GTB PAIN AND OR ELEVATED TEMP Last administered on 03/15/17 09:41; Admin Dose 650 MG; Start 02/05/17 at 18:30 IV Flush (NS 10 ml) 10 ml PRN PRN IV IV PROTOCOL; Start 02/07/17 at 14:30 Diphenhydramine HCl 25 mg 25 mg Q6H PRN IV itching Last administered on 00:00; Admin Dose 25 MG; Start 02/07/17 at 20:00 Ondansetron HCl/ Sodium Chloride (Zofran Inj/NS) 54 ml @ 216 mls/hr Q6H PRN IV NAUSEA AND/OR VOMITING; Start 02/09/17 at 11:30 Trimethobenzamide HCl (Tigan) 200 mg Q6H PRN IM NAUSEA AND/OR VOMITING; Start 02/10/17 at 19:30 Morphine Sulfate (morphine) 2 mg Q4H PRN IV pain Last administered on 03/18/17 00:36; Admin Dose 2 MG; Start 02/20/17 at 18:30 Docusate Sodium 100 mg 100 mg QHS PRN NGT For Constipation; Start 02/25/17 at 21:00 Acetaminophen (Ofirmev 1000mg/ 100ml Iv) 100 ml @ 50 mls/hr Q6H PRN IVPB fever Last administered on 03/06/17 20:44; Admin Dose 50 MLS/HR; Start at 07:30 Enoxaparin Sodium (Lovenox) 40 mg DAILY SC Last administered on 03/18/17 08:22 ; Admin Dose 40 MG; Start 03/03/17 at 09:00 Thiamine HCl (Vitamin B1) 100 mg AM PO Last administered on 03/18/17 08:17; Admin Dose 100 MG; Start 03/12/17 at 09:00; Stop 03/26/17 at 10:00 Zinc Sulfate (Zinc Sulfate) 220 mg DAILY PO Last administered on 03/18/17 08:17 ; Admin Dose 220 MG; Start 03/12/17 at 09:00; Stop 03/26/17 at 10:00 Lorazepam (Ativan) 0.5 mg Q6H PRN IV ANXIETY Last administered on 03/13/17 01: 16; Admin Dose 0.5 MG; Start 03/12/17 at 12:30 Furosemide (Lasix) 20 mg DAILY PEG Last administered on 03/18/17 08:18; Admin Dose 20 MG; Start 03/17/17 at 09:00 FILEMON WYNNE MD Mar 18, 2017 12:59
--- NOTE | 2017-03-18 13:48 | CONS ---
Date/Time of Note Date/Time of Note DATE: 03/18/17 TIME: 13:46 Assessment/Plan Assessment/Plan Chief Complaint/Hosp Course SUBJECTIVE: high residuals, TF at 30 cc /hr, sleeping, comfortable on titus, no fevers. INDWELLINGS: Trach, PEG, Zeng, PICC line. PHYSICAL EXAMINATION: GENERAL: Cachectic, well-developed, middle-aged white man who is alert, in no distress. HEENT: Head atraumatic, normocephalic. Sclerae anicteric. Buccal mucosa dry. NECK: Supple. Tracheostomy present. CHEST: Rise symmetrical. Breath sounds clear. HEART: S1, S2. ABDOMEN: Soft, bowel sounds present. EXTREMITIES: No cyanosis. ASSESSMENT: 1. Status post sepsis with shock. 2. Status post perforated diverticulitis repair. 3. Status post pneumonia. 4. Crohn's disease. 5. History of ETOH abuse. PLAN: Stable off antibiotics. WBC increasing, will order CXR and urine cx [facility] staff . Problems: Consultation Date/Type/Reason Admit Date/Time Feb 01, 2017 at 03:10 Initial Consult Date 02/02/17 Type of Consultation: id Referring Provider: VINCE PADGETT Exam/Review of Systems Vital Signs Vitals Vital Signs Date Time Temp Pulse Resp B/P Pulse Ox O2 Delivery O2 Flow Rate FiO2 03/18/17 13:32 94 26 97 35 03/18/17 11:56 98.6 122/73 Intake and Output 03/17/17 03/17/17 03/18/17 15:00 23:00 07:00 Intake Total 1090 ml 335 ml Output Total 600 ml 600 ml Balance 490 ml -265 ml Results Result Diagram: 03/18/17 0600 03/18/17 0600 Results 24 hrs Laboratory Tests Test 03/17/17 21:00 03/18/17 06:00 03/18/17 09:00 Blood Gas Specimen Source Blood arterial Blood arterial Arterial Blood Date Drawn 03/17/2017 8:46:13 PM 03/18/2017 8:55:21 AM Arterial Blood pH (Temp corrected) 7.466 H 7.466 H Arterial Blood pCO2 (Temp correct) 45.1 H 44.4 Arterial Blood pO2 (Temp corrected) 91.9 106.0 H Arterial Blood HCO3 31.8 H 31.3 H Arterial Blood Base Excess 7.3 H 6.9 H Arterial Blood Oxygen Saturation 96.7 97.4 Raffy Test ACCEPTAB ACCEPTAB Arterial Blood Gas Puncture Site Right Radial Right Radial Arterial Blood Carboxyhemoglobin 0.3 0.3 Arterial Blood Methemoglobin 0.6 0.7 Blood Gas A-a O2 Differential 105.2 H 91.9 H Oxyhemoglobin Percent 95.8 96.4 Total Hemoglobin 8.9 L 7.9 L Blood Gas Temperature 37.0 37.0 Blood Gas Actual Respiration Rate 22 20 Blood Gas Modality VENT - CPAP VENT - CPAP FiO2 35.0 35.0 Blood Gas Mean Airway Pressure 10 Blood Gas Low PEEP Setting 5.0 5.0 Blood Gas Pressure Support 10 10 Blood Gas Notified Whom SHERI VALENTIN Blood Gas Notified Time 03/17/2017 8:58:00 PM 03/18/2017 9:15:28 AM White Blood Count 16.7 H Red Blood Count 3.02 L Hemoglobin 8.3 L Hematocrit 25.9 L Mean Corpuscular Volume 85.8 Mean Corpuscular Hemoglobin 27.5 L Mean Corpuscular Hemoglobin Concent 32.0 Red Cell Distribution Width 15.5 H Platelet Count 470 H Mean Platelet Volume 11.3 H Neutrophils % 83.7 H Lymphocytes % 5.3 L Monocytes % 8.7 Eosinophils % 1.3 Basophils % 0.3 Nucleated Red Blood Cells % 0.0 Neutrophils # 14.0 H Lymphocytes # 0.9 Monocytes # 1.5 H Eosinophils # 0.2 Basophils # 0.1 Nucleated Red Blood Cells # 0.0 Sodium Level 132 L Potassium Level 4.6 Chloride Level 94 L Carbon Dioxide Level 31 Anion Gap 12 Blood Urea Nitrogen 21 H Creatinine 0.46 L Glucose Level 100 Calcium Level 9.4 Magnesium Level 2.0 Total Bilirubin 0.1 L Direct Bilirubin 0.00 Indirect Bilirubin 0.1 Aspartate Amino Transf (AST/SGOT) 21 Alanine Aminotransferase (ALT/SGPT) 27 Alkaline Phosphatase 142 H Total Protein 6.9 Albumin 3.4 Globulin 3.50 H Albumin/Globulin Ratio 0.97 Medications Medications Current Medications Pantoprazole (Protonix Iv) 40 mg DAILY@06 IV Last administered on 03/18/17t 05: 52; Admin Dose 40 MG; Start 02/01/17 at 06:00 Acetaminophen/ Hydrocodone Bitart ([place] (5/325)) 1 tab Q4H PRN PO PAIN LEVEL 4 -7 Last administered on 03/17/17 16:12; Admin Dose 1 TAB; Start 02/01/17 at 20: 30 Acetaminophen/ Hydrocodone Bitart ([place] (5/325)) 2 tab Q4H PRN PO PAIN LEVEL 7 -10 Last administered on 03/13/17 22:39; Admin Dose 2 TAB; Start 02/01/17 at 20 :30 Bisacodyl (Dulcolax Supp) 10 mg BID PRN [place] CONSTIPATION; Start 02/01/17 at 20: 30 Sodium Biphosphate/ Sodium Phosphate (Fleet Enema) 133 ml BID PRN [place] CONSTIPATION; Start 02/01/17 at 20:30 Acetaminophen (Tylenol Liquid) 650 mg Q4H PRN GTB PAIN AND OR ELEVATED TEMP Last administered on 03/15/17 09:41; Admin Dose 650 MG; Start 02/05/17 at 18:30 IV Flush (NS 10 ml) 10 ml PRN PRN IV IV PROTOCOL; Start 02/07/17 at 14:30 Diphenhydramine HCl 25 mg 25 mg Q6H PRN IV itching Last administered on 00:00; Admin Dose 25 MG; Start 02/07/17 at 20:00 Ondansetron HCl/ Sodium Chloride (Zofran Inj/NS) 54 ml @ 216 mls/hr Q6H PRN IV NAUSEA AND/OR VOMITING; Start 02/09/17 at 11:30 Trimethobenzamide HCl (Tigan) 200 mg Q6H PRN IM NAUSEA AND/OR VOMITING; Start 02/10/17 at 19:30 Morphine Sulfate (morphine) 2 mg Q4H PRN IV pain Last administered on 03/18/17 00:36; Admin Dose 2 MG; Start 02/20/17 at 18:30 Docusate Sodium 100 mg 100 mg QHS PRN NGT For Constipation; Start 02/25/17 at 21:00 Acetaminophen (Ofirmev 1000mg/ 100ml Iv) 100 ml @ 50 mls/hr Q6H PRN IVPB fever Last administered on 03/06/17 20:44; Admin Dose 50 MLS/HR; Start at 07:30 Enoxaparin Sodium (Lovenox) 40 mg DAILY SC Last administered on 03/18/17 08:22 ; Admin Dose 40 MG; Start 03/03/17 at 09:00 Thiamine HCl (Vitamin B1) 100 mg AM PO Last administered on 03/18/17 08:17; Admin Dose 100 MG; Start 03/12/17 at 09:00; Stop 03/26/17 at 10:00 Zinc Sulfate (Zinc Sulfate) 220 mg DAILY PO Last administered on 03/18/17 08:17 ; Admin Dose 220 MG; Start 03/12/17 at 09:00; Stop 03/26/17 at 10:00 Lorazepam (Ativan) 0.5 mg Q6H PRN IV ANXIETY Last administered on 03/13/17 01: 16; Admin Dose 0.5 MG; Start 03/12/17 at 12:30 Furosemide (Lasix) 20 mg DAILY PEG Last administered on 03/18/17 08:18; Admin Dose 20 MG; Start 03/17/17 at 09:00 THOMAS ELLIS NP Mar 18, 2017 13:47
--- NOTE | 2017-03-18 14:00 | PN ---
Date/Time of Note Date/Time of Note DATE: 03/18/17 TIME: 14:00 Assessment/Plan Lines/Catheters IV Catheter Type (from Nrsg): Saline Lock Zeng in Place (from Nrsg): Yes Assessment/Plan Chief Complaint/Hosp Course SP tracheostomy will continue vent support pulm toilet Trach care Problems: Subjective 24 Hr Interval Summary Constitutional: improved Pain Control: mild Exam/Review of Systems Vital Signs Vitals Vital Signs Date Time Temp Pulse Resp B/P Pulse Ox O2 Delivery O2 Flow Rate FiO2 03/18/17 13:32 94 26 97 35 03/18/17 11:56 98.6 122/73 Intake and Output 03/17/17 03/17/17 03/18/17 15:00 23:00 07:00 Intake Total 1090 ml 335 ml Output Total 600 ml 600 ml Balance 490 ml -265 ml Exam Neck: non-tender, supple Respiratory: clear to auscultation, normal air movement Cardiovascular: nl pulses, regular rate and rhythm Gastrointestinal: nl liver, spleen, non-tender, soft Results Result Diagram: 03/18/17 0600 03/18/17 0600 MALEROMAN LAMA MD Mar 18, 2017 14:00
--- NOTE | 2017-03-18 16:44 | PN ---
Date/Time of Note Date/Time of Note DATE: 03/18/17 TIME: 16:40 Assessment/Plan VTE Prophylaxis VTE Prophylaxis Intervention: SCD's Lines/Catheters IV [facility]from [facility] Saline Lock Urinary Cath still in place: Yes Reason Cath still needed: other (indicate) Assessment/Plan Chief Complaint/Hosp Course Assessment/Plan 1. Perforated sigmoid colon 2/2 Severe Crohn's colitis * S/p Urgent Open Cronin's procedure with end colostomy, liver biopsy and abdominal lavage 02/01/17 * S/p post operative paracolic abscess drained via CT 02/14/[address] * S/p Exploration of abdomen through recent laparotomy site with closure of fascia done 02/15/17 for Fascia dehiscence * PEG placed 4 days ago - continue PEG feeds. 2. Recurrent Resp failure: Extubated then reintubated 02/13, extubated, then reintubated 02/25/17, then extubated 02/27 and reintubated 03/04 * Status post bronchoscopy with clearance of extensive secretions in the left mainstem bronchus with improved aeration radiographically 02/25 * Pulm concerned about possible neuro muscular injury contributing to recurrent resp failure - s/p trach placement ,continue vent management 3. Exacerbation of Crohn's disease with acute colitis and diarrhea Cultures earlier were growing ecoli / proteus / enterococcus 4. Multifocal PNA + Mook Pleural effusions - Effusions likely hydrostatic from hypoalbuminemia. + fevers - monitor, ID managing abx and antifungal 5. Severe Sepsis with lactic acidosis 2/2 severe colitis / PNA - Continue abx per ID 6. S/p Systemic shock (hypovolemic +septic) - again, see # 5, abx: Resolved 7. Status post TPN therapy for low prealbumin: At this time patient is on PEG tube feeding 8. Hx of heavy alcohol and tobacco use just until admission - monitor 9. Probable underlying COPD and Cirrhosis based on hx which explains hypoalbuminemia and anasarca - monitor 10. Severe recurrent anemia likely 2/2 occult blood loss from multiple sources : PRN transfusions 11. Hypomagnesemia - replete as needed 12. Encephalopathy / Confusion, resolved, patient may have suffered some anoxic brain insult during the course of his hospitalization. Dispo: Continue current regimen SNF versus [facility] placement pending Follow-up uncrater and general surgery recommendation Problems: Subjective 24 Hr Interval Summary Free Text/Dictation Patient had positive residual from PEG tube feeding No bowel movement 2 days Denies any chest pain or shortness of breath Exam/Review of Systems Vital Signs Vitals Vital Signs Date Time Temp Pulse Resp B/P Pulse Ox O2 Delivery O2 Flow Rate FiO2 03/18/17 16:00 91 03/18/17 15:49 98.2 18 119/70 98 03/18/17 15:10 35 Intake and Output 03/17/17 03/17/17 03/18/17 15:00 23:00 07:00 Intake Total 1090 ml 335 ml Output Total 600 ml 600 ml Balance 490 ml -265 ml Exam General: The patient is well-developed, Not in acute distress. HEENT: , normocephalic. The pupils are equal and round . Neck: Tracheostomy in place Chest: Normal expansion of the thorax during inspiration Lungs: Clear to auscultation bilaterally Heart: Normal S1-S2, Regular rhythm and rate. Abdomen: Soft , nontender, nondistended , bowel sounds are present. PEG tube in place, wound VAC in the mid abdominal region Extremities: Normal to inspection, no edema no cyanosis Neurologic: Normal mental status,The patient is awake, alert and oriented . Results Result Diagram: 03/18/17 0600 03/18/17 0600 Results 24 hrs Laboratory Tests Test 03/17/17 21:00 03/18/17 06:00 03/18/17 09:00 Blood Gas Specimen Source Blood arterial Blood arterial Arterial Blood Date Drawn 03/17/2017 8:46:13 PM 03/18/2017 8:55:21 AM Arterial Blood pH (Temp corrected) 7.466 H 7.466 H Arterial Blood pCO2 (Temp correct) 45.1 H 44.4 Arterial Blood pO2 (Temp corrected) 91.9 106.0 H Arterial Blood HCO3 31.8 H 31.3 H Arterial Blood Base Excess 7.3 H 6.9 H Arterial Blood Oxygen Saturation 96.7 97.4 Raffy Test ACCEPTAB ACCEPTAB Arterial Blood Gas Puncture Site Right Radial Right Radial Arterial Blood Carboxyhemoglobin 0.3 0.3 Arterial Blood Methemoglobin 0.6 0.7 Blood Gas A-a O2 Differential 105.2 H 91.9 H Oxyhemoglobin Percent 95.8 96.4 Total Hemoglobin 8.9 L 7.9 L Blood Gas Temperature 37.0 37.0 Blood Gas Actual Respiration Rate 22 20 Blood Gas Modality VENT - CPAP VENT - CPAP FiO2 35.0 35.0 Blood Gas Mean Airway Pressure 10 Blood Gas Low PEEP Setting 5.0 5.0 Blood Gas Pressure Support 10 10 Blood Gas Notified Whom SHERI VALENTIN Blood Gas Notified Time 03/17/2017 8:58:00 PM 03/18/2017 9:15:28 AM White Blood Count 16.7 H Red Blood Count 3.02 L Hemoglobin 8.3 L Hematocrit 25.9 L Mean Corpuscular Volume 85.8 Mean Corpuscular Hemoglobin 27.5 L Mean Corpuscular Hemoglobin Concent 32.0 Red Cell Distribution Width 15.5 H Platelet Count 470 H Mean Platelet Volume 11.3 H Neutrophils % 83.7 H Lymphocytes % 5.3 L Monocytes % 8.7 Eosinophils % 1.3 Basophils % 0.3 Nucleated Red Blood Cells % 0.0 Neutrophils # 14.0 H Lymphocytes # 0.9 Monocytes # 1.5 H Eosinophils # 0.2 Basophils # 0.1 Nucleated Red Blood Cells # 0.0 Sodium Level 132 L Potassium Level 4.6 Chloride Level 94 L Carbon Dioxide Level 31 Anion Gap 12 Blood Urea Nitrogen 21 H Creatinine 0.46 L Glucose Level 100 Calcium Level 9.4 Magnesium Level 2.0 Total Bilirubin 0.1 L Direct Bilirubin 0.00 Indirect Bilirubin 0.1 Aspartate Amino Transf (AST/SGOT) 21 Alanine Aminotransferase (ALT/SGPT) 27 Alkaline Phosphatase 142 H Total Protein 6.9 Albumin 3.4 Globulin 3.50 H Albumin/Globulin Ratio 0.97 Medications Medications Current Medications Pantoprazole (Protonix Iv) 40 mg DAILY@06 IV Last administered on 03/18/17 05: 52; Admin Dose 40 MG; Start 02/01/17 at 06:00 Acetaminophen/ Hydrocodone Bitart ([place] (5/325)) 1 tab Q4H PRN PO PAIN LEVEL 4 -7 Last administered on 03/17/17 16:12; Admin Dose 1 TAB; Start 02/01/17 at 20: 30 Acetaminophen/ Hydrocodone Bitart ([place] (5/325)) 2 tab Q4H PRN PO PAIN LEVEL 7 -10 Last administered on 03/13/17 22:39; Admin Dose 2 TAB; Start 02/01/17 at 20 :30 Bisacodyl (Dulcolax Supp) 10 mg BID PRN [place] CONSTIPATION; Start 02/01/17 at 20: 30 Sodium Biphosphate/ Sodium Phosphate (Fleet Enema) 133 ml BID PRN [place] CONSTIPATION; Start 02/01/17 at 20:30 Acetaminophen (Tylenol Liquid) 650 mg Q4H PRN GTB PAIN AND OR ELEVATED TEMP Last administered on 03/15/17 09:41; Admin Dose 650 MG; Start 02/05/17 at 18:30 IV Flush (NS 10 ml) 10 ml PRN PRN IV IV PROTOCOL; Start 02/07/17 at 14:30 Diphenhydramine HCl 25 mg 25 mg Q6H PRN IV itching Last administered on 00:00; Admin Dose 25 MG; Start 02/07/17 at 20:00 Ondansetron HCl/ Sodium Chloride (Zofran Inj/NS) 54 ml @ 216 mls/hr Q6H PRN IV NAUSEA AND/OR VOMITING; Start 02/09/17 at 11:30 Trimethobenzamide HCl (Tigan) 200 mg Q6H PRN IM NAUSEA AND/OR VOMITING; Start 02/10/17 at 19:30 Morphine Sulfate (morphine) 2 mg Q4H PRN IV pain Last administered on 03/18/17 00:36; Admin Dose 2 MG; Start 02/20/17 at 18:30 Docusate Sodium 100 mg 100 mg QHS PRN NGT For Constipation; Start 02/25/17 at 21:00 Acetaminophen (Ofirmev 1000mg/ 100ml Iv) 100 ml @ 50 mls/hr Q6H PRN IVPB fever Last administered on 03/06/17 20:44; Admin Dose 50 MLS/HR; Start at 07:30 Enoxaparin Sodium (Lovenox) 40 mg DAILY SC Last administered on 03/18/17 08:22 ; Admin Dose 40 MG; Start 03/03/17 at 09:00 Thiamine HCl (Vitamin B1) 100 mg AM PO Last administered on 03/18/17 08:17; Admin Dose 100 MG; Start 03/12/17 at 09:00; Stop 03/26/17 at 10:00 Zinc Sulfate (Zinc Sulfate) 220 mg DAILY PO Last administered on 03/18/17 08:17 ; Admin Dose 220 MG; Start 03/12/17 at 09:00; Stop 03/26/17 at 10:00 Lorazepam (Ativan) 0.5 mg Q6H PRN IV ANXIETY Last administered on 03/13/17 01: 16; Admin Dose 0.5 MG; Start 03/12/17 at 12:30 Furosemide (Lasix) 20 mg DAILY PEG Last administered on 03/18/17 08:18; Admin Dose 20 MG; Start 03/17/17 at 09:00 CRISTIANA LAM MD Mar 18, 2017 16:44
[2017-03-18] MEDS ORDERED: POLYETHYLENE GLYCOL 17 GM PACKET GTB PRN (17:00)
[2017-03-18] MEDS: METOCLOPRAMIDE 5 MG TAB PO SCH (21:35)
[2017-03-19] VITALS (24 sets, daily range): BP systolic 119–138; BP diastolic 77–80; PULSE 92–117; RESP 12–36
[2017-03-19] MEDS: ACETYLCYSTEINE 20% 4 ML VIAL NEB SCH ×4 (01:40→20:09)
[2017-03-19] MEDS: ALBUTEROL 18 GM INHALER INH SCH ×4 (01:40→20:05)
[2017-03-19] MEDS: IPRATROPIUM (HFA) 12.9 GM INHALER INH SCH ×4 (01:40→20:04)
[2017-03-19] MEDS ORDERED: ZOLPIDEM 5 MG TAB GTB ONE ×2 (03:10→03:30)
[2017-03-19] MEDS: PANTOPRAZOLE 40 MG INJ IV SCH (05:00)
--- NOTE | 2017-03-19 06:51 | RADRPT ---
PROCEDURE: XR Chest. CLINICAL INDICATION: Pneumonia TECHNIQUE: Portable single view of the chest COMPARISON: 03/10 FINDINGS: Right PICC line has been removed. Tracheostomy tube remains in place. Left greater than right basi lar atelectasis or infiltrates and small effusions are unchanged. Heart size remains within normal limits. IMPRESSION: Removal of right-sided PICC line. Otherwise stable exam. RPTAT: [facility] Kavitha Ham Physician Date Time Electronically viewed and signed by Kavitha Ham, Physician on 03/19/2017 06:50 LE/
[2017-03-19 07:05] LABS: ADD SCAN DIFF NO
[2017-03-19 07:16] LABS: BASOPHIL # 0.1 10^3/ul (0.0-0.1); BASOPHILS % 0.4 % (0.0-2.0); EOSINOPHILS # 0.2 10^3/ul (0.0-0.5); EOSINOPHILS % 1.3 % (0.0-7.0); HEMOGLOBIN 8.1 g/dl (14.0-18.0); LYMPHOCYTES # 0.9 10^3/ul (0.8-2.9); LYMPHOCYTES % 5.4 % (15.0-51.0); MEAN CORPUSCULAR HEMOGLOBIN 26.9 pg (29.0-33.0); MEAN CORPUSCULAR HGB CONC 31.2 g/dl (32.0-37.0); MEAN CORPUSCULAR VOLUME 86.4 fl (82.0-101.0); MEAN PLATELET VOLUME 11.4 fl (7.4-10.4); MONOCYTE # 1.4 10^3/ul (0.3-0.9); MONOCYTES % 8.3 % (0.0-11.0); NEUTROPHIL # 14.2 10^3/ul (1.6-7.5); NEUTROPHILS % 83.9 % (39.0-77.0); PLATELET COUNT 496 10^3/UL (140-415); RED BLOOD COUNT 3.01 10^6/ul (4.70-6.10); RED CELL DISTRIBUTION WIDTH 15.8 % (11.5-14.5); WHITE BLOOD COUNT 16.9 10^3/ul (4.8-10.8)
[2017-03-19 07:25] LABS: CALCIUM 9.4 mg/dl (8.4-10.2); CREATININE 0.53 mg/dl (0.61-1.24); MAGNESIUM 1.6 mg/dl (1.7-2.5); POTASSIUM 4.5 mmol/L (3.5-5.1)
[2017-03-19] MEDS: METOCLOPRAMIDE 5 MG TAB PO SCH ×3 (10:33→21:42)
[2017-03-19] MEDS: THIAMINE 100 MG TAB PO SCH (10:34)
[2017-03-19] MEDS: FUROSEMIDE 20 MG TAB PEG SCH (10:34)
[2017-03-19] MEDS: ZINC SULFATE 220 MG CAP PO SCH (10:34)
[2017-03-19] MEDS: ENOXAPARIN 40 MG/0.4 ML SYG SC SCH (10:44)
--- NOTE | 2017-03-19 12:14 | PN ---
Date/Time of Note Date/Time of Note DATE: 03/19/17 TIME: 12:13 Assessment/Plan VTE Prophylaxis VTE Prophylaxis Intervention: SCD's Lines/Catheters IV Catheter Type (from [facility]): [facility] [facility] Urinary Cath still in place: Yes Reason Cath still needed: other (indicate) Assessment/Plan Chief Complaint/Hosp Course Assessment/Plan 1. Perforated sigmoid colon 2/2 Severe Crohn's colitis * S/p Urgent Open Cronin's procedure with end colostomy, liver biopsy and abdominal lavage 02/01/17 * S/p post operative paracolic abscess drained via CT 02/14/[address] * S/p Exploration of abdomen through recent laparotomy site with closure of fascia done 02/15/17 for Fascia dehiscence * PEG placed 4 days ago - continue PEG feeds. 2. Recurrent Resp failure: Extubated then reintubated 02/13, extubated, then reintubated 02/25/17, then extubated 02/27 and reintubated 03/04 * Status post bronchoscopy with clearance of extensive secretions in the left mainstem bronchus with improved aeration radiographically 02/25 * Pulm concerned about possible neuro muscular injury contributing to recurrent resp failure - s/p trach placement ,continue vent management 3. Exacerbation of Crohn's disease with acute colitis and diarrhea Cultures earlier were growing ecoli / proteus / enterococcus 4. Multifocal PNA + Mook Pleural effusions - Effusions likely hydrostatic from hypoalbuminemia. + fevers - monitor, ID managing abx and antifungal 5. Severe Sepsis with lactic acidosis 2/2 severe colitis / PNA - Continue abx per ID 6. S/p Systemic shock (hypovolemic +septic) - again, see # 5, abx: Resolved 7. Status post TPN therapy for low prealbumin: At this time patient is on PEG tube feeding 8. Hx of heavy alcohol and tobacco use just until admission - monitor 9. Probable underlying COPD and Cirrhosis based on hx which explains hypoalbuminemia and anasarca - monitor 10. Severe recurrent anemia likely 2/2 occult blood loss from multiple sources : PRN transfusions 11. Hypomagnesemia - replete as needed 12. Encephalopathy / Confusion, resolved, patient may have suffered some anoxic brain insult during the course of his hospitalization. Dispo: Continue current regimen SNF versus [facility] placement pending Follow-up two way radio technician and general surgery recommendation Problems: Subjective 24 Hr Interval Summary Free Text/Dictation No acute changes Positive bowel movement today No nausea vomiting diarrhea Tolerating PEG tube feeding Exam/Review of Systems Vital Signs Vitals Vital Signs Date Time Temp Pulse Resp B/P Pulse Ox O2 Delivery O2 Flow Rate FiO2 03/19/17 11:21 112 30 97 35 03/19/17 10:56 98.6 119/79 Intake and Output 03/18/17 03/18/17 03/19/17 15:00 23:00 07:00 Intake Total 480 ml 720 ml Output Total 400 ml 400 ml Balance 80 ml 320 ml Exam General: The patient is well-developed, Not in acute distress. HEENT: Atraumatic, normocephalic. The pupils are equal and round . Neck: Tracheostomy in place Chest: Normal expansion of the thorax during inspiration Lungs: Clear to auscultation bilaterally Heart: Normal S1-S2, Regular rhythm and rate. Abdomen: Soft , nontender, nondistended , bowel sounds are present. PEG tube and wound VAC in mid abdominal region Extremities: Normal to inspection, no edema no cyanosis Neurologic: Normal mental status,The patient is awake, alert and oriented . Results Result Diagram: 03/19/17 0600 03/19/17 0600 Results 24 hrs Laboratory Tests Test 03/19/17 06:00 White Blood Count 16.9 H Red Blood Count 3.01 L Hemoglobin 8.1 L Hematocrit 26.0 L Mean Corpuscular Volume 86.4 Mean Corpuscular Hemoglobin 26.9 L Mean Corpuscular Hemoglobin Concent 31.2 L Red Cell Distribution Width 15.8 H Platelet Count 496 H Mean Platelet Volume 11.4 H Neutrophils % 83.9 H Lymphocytes % 5.4 L Monocytes % 8.3 Eosinophils % 1.3 Basophils % 0.4 Nucleated Red Blood Cells % 0.0 Neutrophils # 14.2 H Lymphocytes # 0.9 Monocytes # 1.4 H Eosinophils # 0.2 Basophils # 0.1 Nucleated Red Blood Cells # 0.0 Sodium Level 138 Potassium Level 4.5 Chloride Level 92 L Carbon Dioxide Level 34 H Anion Gap 17 H Blood Urea Nitrogen 21 H Creatinine 0.53 L Glucose Level 110 Calcium Level 9.4 Magnesium Level 1.6 L Medications Medications Current Medications Pantoprazole (Protonix Iv) 40 mg DAILY@06 IV Last administered on 03/19/17t 05: 00; Admin Dose 40 MG; Start 02/01/17 at 06:00 Acetaminophen/ Hydrocodone Bitart ([place] (5/325)) 1 tab Q4H PRN PO PAIN LEVEL 4 -7 Last administered on 03/17/17 16:12; Admin Dose 1 TAB; Start 02/01/17 at 20: 30 Acetaminophen/ Hydrocodone Bitart ([place] (5/325)) 2 tab Q4H PRN PO PAIN LEVEL 7 -10 Last administered on 03/13/17 22:39; Admin Dose 2 TAB; Start 02/01/17 at 20 :30 Bisacodyl (Dulcolax Supp) 10 mg BID PRN [place] CONSTIPATION; Start 02/01/17 at 20: 30 Sodium Biphosphate/ Sodium Phosphate (Fleet Enema) 133 ml BID PRN [place] CONSTIPATION; Start 02/01/17 at 20:30 Acetaminophen (Tylenol Liquid) 650 mg Q4H PRN GTB PAIN AND OR ELEVATED TEMP Last administered on 03/15/17 09:41; Admin Dose 650 MG; Start 02/05/17 at 18:30 IV Flush (NS 10 ml) 10 ml PRN PRN IV IV PROTOCOL; Start 02/07/17 at 14:30 Diphenhydramine HCl 25 mg 25 mg Q6H PRN IV itching Last administered on 00:00; Admin Dose 25 MG; Start 02/07/17 at 20:00 Ondansetron HCl/ Sodium Chloride (Zofran Inj/NS) 54 ml @ 216 mls/hr Q6H PRN IV NAUSEA AND/OR VOMITING; Start 02/09/17 at 11:30 Trimethobenzamide HCl (Tigan) 200 mg Q6H PRN IM NAUSEA AND/OR VOMITING; Start 02/10/17 at 19:30 Morphine Sulfate (morphine) 2 mg Q4H PRN IV pain Last administered on 03/18/17 00:36; Admin Dose 2 MG; Start 02/20/17 at 18:30 Docusate Sodium 100 mg 100 mg QHS PRN NGT For Constipation; Start 02/25/17 at 21:00 Acetaminophen (Ofirmev 1000mg/ 100ml Iv) 100 ml @ 50 mls/hr Q6H PRN IVPB fever Last administered on 03/06/17 20:44; Admin Dose 50 MLS/HR; Start at 07:30 Enoxaparin Sodium (Lovenox) 40 mg DAILY SC Last administered on 03/19/17 10:44 ; Admin Dose 40 MG; Start 03/03/17 at 09:00 Thiamine HCl (Vitamin B1) 100 mg AM PO Last administered on 03/19/17 10:34; Admin Dose 100 MG; Start 03/12/17 at 09:00; Stop 03/26/17 at 10:00 Zinc Sulfate (Zinc Sulfate) 220 mg DAILY PO Last administered on 03/19/17 10:34 ; Admin Dose 220 MG; Start 03/12/17 at 09:00; Stop 03/26/17 at 10:00 Lorazepam (Ativan) 0.5 mg Q6H PRN IV ANXIETY Last administered on 03/13/17 01: 16; Admin Dose 0.5 MG; Start 03/12/17 at 12:30 Furosemide (Lasix) 20 mg DAILY PEG Last administered on 03/19/17 10:34; Admin Dose 20 MG; Start 03/17/17 at 09:00 Metoclopramide HCl (Reglan) 5 mg TID PO Last administered on 03/19/17 10:33; Admin Dose 5 MG; Start 03/18/17 at 21:00 Polyethylene Glycol (Miralax) 17 gm Q72H PRN GTB CONSTIPATION Last administered on 03/19/17 03:15; Admin Dose 17 GM; Start 03/18/17 at 17:00 CRISTIANA LAM MD Mar 19, 2017 12:14
--- NOTE | 2017-03-19 12:30 | CONS ---
Date/Time of Note Date/Time of Note DATE: 03/19/17 TIME: 12:29 Consult Date/Type/Reason Admit Date/Time Feb 01, 2017 at 03:10 Type of Consultation: Pulmonary Ordering Provider: VINCE PADGETT Subjective Patient comfortable no new events Stable on CPAP without respiratory distress Objective Vital Signs Date Time Temp Pulse Resp B/P Pulse Ox O2 Delivery O2 Flow Rate FiO2 03/19/17 12:00 100 03/19/17 11:21 30 97 35 03/19/17 10:56 98.6 119/79 Intake and Output 03/18/17 03/18/17 03/19/17 15:00 23:00 07:00 Intake Total 480 ml 720 ml Output Total 400 ml 400 ml Balance 80 ml 320 ml Exam PHYSICAL EXAMINATION GENERAL: Chronically ill appearing gentleman comfortable at rest VITAL SIGNS: see below. HEENT: Pupils equal, round, and reactive to light. Tracheostomy site clean and intact. CARDIAC: S1, S2, 1/6 systolic ejection murmur CHEST: Diminished air entry bilaterally. ABDOMEN: Mildly distended. Bowel sounds present no guarding or rebound EXTREMITIES: No cyanosis, clubbing edema +1 NEUROLOGIC: Generalized weakness Results/Medications Result Diagram: 03/19/17 0600 03/19/17 0600 Results 24 hrs Laboratory Tests Test 03/19/17 06:00 White Blood Count 16.9 H Red Blood Count 3.01 L Hemoglobin 8.1 L Hematocrit 26.0 L Mean Corpuscular Volume 86.4 Mean Corpuscular Hemoglobin 26.9 L Mean Corpuscular Hemoglobin Concent 31.2 L Red Cell Distribution Width 15.8 H Platelet Count 496 H Mean Platelet Volume 11.4 H Neutrophils % 83.9 H Lymphocytes % 5.4 L Monocytes % 8.3 Eosinophils % 1.3 Basophils % 0.4 Nucleated Red Blood Cells % 0.0 Neutrophils # 14.2 H Lymphocytes # 0.9 Monocytes # 1.4 H Eosinophils # 0.2 Basophils # 0.1 Nucleated Red Blood Cells # 0.0 Sodium Level 138 Potassium Level 4.5 Chloride Level 92 L Carbon Dioxide Level 34 H Anion Gap 17 H Blood Urea Nitrogen 21 H Creatinine 0.53 L Glucose Level 110 Calcium Level 9.4 Magnesium Level 1.6 L Medications Current Medications Pantoprazole (Protonix Iv) 40 mg DAILY@06 IV Last administered on 6/2/17at 05: 00; Admin Dose 40 MG; Start 02/01/17 at 06:00 Acetaminophen/ Hydrocodone Bitart ([place] (5/325)) 1 tab Q4H PRN PO PAIN LEVEL 4 -7 Last administered on 03/17/17 16:12; Admin Dose 1 TAB; Start 02/01/17 at 20: 30 Acetaminophen/ Hydrocodone Bitart ([place] (5/325)) 2 tab Q4H PRN PO PAIN LEVEL 7 -10 Last administered on 03/13/17 22:39; Admin Dose 2 TAB; Start 02/01/17 at 20 :30 Bisacodyl (Dulcolax Supp) 10 mg BID PRN [place] CONSTIPATION; Start 02/01/17 at 20: 30 Sodium Biphosphate/ Sodium Phosphate (Fleet Enema) 133 ml BID PRN [place] CONSTIPATION; Start 02/01/17 at 20:30 Acetaminophen (Tylenol Liquid) 650 mg Q4H PRN GTB PAIN AND OR ELEVATED TEMP Last administered on 03/15/17 09:41; Admin Dose 650 MG; Start 02/05/17 at 18:30 IV Flush (NS 10 ml) 10 ml PRN PRN IV IV PROTOCOL; Start 02/07/17 at 14:30 Diphenhydramine HCl 25 mg 25 mg Q6H PRN IV itching Last administered on 00:00; Admin Dose 25 MG; Start 02/07/17 at 20:00 Ondansetron HCl/ Sodium Chloride (Zofran Inj/NS) 54 ml @ 216 mls/hr Q6H PRN IV NAUSEA AND/OR VOMITING; Start 02/09/17 at 11:30 Trimethobenzamide HCl (Tigan) 200 mg Q6H PRN IM NAUSEA AND/OR VOMITING; Start 02/10/17 at 19:30 Morphine Sulfate (morphine) 2 mg Q4H PRN IV pain Last administered on 03/18/17 00:36; Admin Dose 2 MG; Start 02/20/17 at 18:30 Docusate Sodium 100 mg 100 mg QHS PRN NGT For Constipation; Start 02/25/17 at 21:00 Acetaminophen (Ofirmev 1000mg/ 100ml Iv) 100 ml @ 50 mls/hr Q6H PRN IVPB fever Last administered on 03/06/17 20:44; Admin Dose 50 MLS/HR; Start at 07:30 Enoxaparin Sodium (Lovenox) 40 mg DAILY SC Last administered on 03/19/17 10:44 ; Admin Dose 40 MG; Start 03/03/17 at 09:00 Thiamine HCl (Vitamin B1) 100 mg AM PO Last administered on 03/19/17 10:34; Admin Dose 100 MG; Start 03/12/17 at 09:00; Stop 03/26/17 at 10:00 Zinc Sulfate (Zinc Sulfate) 220 mg DAILY PO Last administered on 03/19/17 10:34 ; Admin Dose 220 MG; Start 03/12/17 at 09:00; Stop 03/26/17 at 10:00 Lorazepam (Ativan) 0.5 mg Q6H PRN IV ANXIETY Last administered on 03/13/17 01: 16; Admin Dose 0.5 MG; Start 03/12/17 at 12:30 Furosemide (Lasix) 20 mg DAILY PEG Last administered on 03/19/17 10:34; Admin Dose 20 MG; Start 03/17/17 at 09:00 Metoclopramide HCl (Reglan) 5 mg TID PO Last administered on 03/19/17 10:33; Admin Dose 5 MG; Start 03/18/17 at 21:00 Polyethylene Glycol (Miralax) 17 gm Q72H PRN GTB CONSTIPATION Last administered on 03/19/17 03:15; Admin Dose 17 GM; Start 03/18/17 at 17:00 Assessment/Plan Chief Complaint/Hosp Course Assessment 1. Crohn's disease with perforation of sigmoid colon and sepsis status post arthroscopic sigmoid colectomy and end colostomy with lysis of adhesions 2. Resolved metabolic acidosis with septic shock 3. Encephalopathy toxic metabolic resolving 4. Hypoxemic respiratory failure now with tracheostomy in place 5. Thrombocytopenia resolved, likely underlying pneumonia 6. Anemia as above 7. Likely critical illness myopathy 8. Persistent leukocytosis Plan 1. Continue mechanical ventilation, continue tracheostomy care 2. Bronchodilators as needed 3. Continue surgical wound care discussed with , 4. Continue broad-spectrum antibiotic coverage 5. DVT GI prophylaxis Disposition Discharge planning okay from pulmonary standpoint Problems: RAMON DOUGLAS MD, [facility] Mar 19, 2017 12:30
--- NOTE | 2017-03-19 12:52 | CONS ---
Date/Time of Note Date/Time of Note DATE: 03/19/17 TIME: 12:51 Assessment/Plan Assessment/Plan Chief Complaint/Hosp Course Perforated colon status post surgery Severe sepsis Respiratory failure-reintubated Low normal ejection fraction 50% Crohn's disease Acute blood loss anemia Problems: Additional Assessment/Plan continue gentle diuresis Consultation Date/Type/Reason Admit Date/Time Feb 01, 2017 at 03:10 Initial Consult Date 02/02/17 Type of Consultation: cv Referring Provider: VINCE PADGETT 24 HR Interval Summary Free Text/Dictation on ventilator Exam/Review of Systems Vital Signs Vitals Vital Signs Date Time Temp Pulse Resp B/P Pulse Ox O2 Delivery O2 Flow Rate FiO2 03/19/17 12:00 100 03/19/17 11:21 30 97 35 03/19/17 10:56 98.6 119/79 Intake and Output 03/18/17 03/18/17 03/19/17 15:00 23:00 07:00 Intake Total 480 ml 720 ml Output Total 400 ml 400 ml Balance 80 ml 320 ml Exam Head: atraumatic, normocephalic Neck: supple Respiratory: diminished breath sounds Cardiovascular: regular rate and rhythm Gastrointestinal: soft Musculoskeletal: nl extremities to inspection Extremities: normal pulses Results Result Diagram: 03/19/17 0600 03/19/17 0600 Results 24 hrs Laboratory Tests Test 03/19/17 06:00 White Blood Count 16.9 H Red Blood Count 3.01 L Hemoglobin 8.1 L Hematocrit 26.0 L Mean Corpuscular Volume 86.4 Mean Corpuscular Hemoglobin 26.9 L Mean Corpuscular Hemoglobin Concent 31.2 L Red Cell Distribution Width 15.8 H Platelet Count 496 H Mean Platelet Volume 11.4 H Neutrophils % 83.9 H Lymphocytes % 5.4 L Monocytes % 8.3 Eosinophils % 1.3 Basophils % 0.4 Nucleated Red Blood Cells % 0.0 Neutrophils # 14.2 H Lymphocytes # 0.9 Monocytes # 1.4 H Eosinophils # 0.2 Basophils # 0.1 Nucleated Red Blood Cells # 0.0 Sodium Level 138 Potassium Level 4.5 Chloride Level 92 L Carbon Dioxide Level 34 H Anion Gap 17 H Blood Urea Nitrogen 21 H Creatinine 0.53 L Glucose Level 110 Calcium Level 9.4 Magnesium Level 1.6 L Medications Medications Current Medications Pantoprazole (Protonix Iv) 40 mg DAILY@06 IV Last administered on 03/19/17 05: 00; Admin Dose 40 MG; Start 02/01/17 at 06:00 Acetaminophen/ Hydrocodone Bitart ([place] (5/325)) 1 tab Q4H PRN PO PAIN LEVEL 4 -7 Last administered on 03/17/17 16:12; Admin Dose 1 TAB; Start 02/01/17 at 20: 30 Acetaminophen/ Hydrocodone Bitart ([place] (5/325)) 2 tab Q4H PRN PO PAIN LEVEL 7 -10 Last administered on 03/13/17 22:39; Admin Dose 2 TAB; Start 02/01/17 at 20 :30 Bisacodyl (Dulcolax Supp) 10 mg BID PRN [place] CONSTIPATION; Start 02/01/17 at 20: 30 Sodium Biphosphate/ Sodium Phosphate (Fleet Enema) 133 ml BID PRN [place] CONSTIPATION; Start 02/01/17 at 20:30 Acetaminophen (Tylenol Liquid) 650 mg Q4H PRN GTB PAIN AND OR ELEVATED TEMP Last administered on 03/15/17 09:41; Admin Dose 650 MG; Start 02/05/17 at 18:30 IV Flush (NS 10 ml) 10 ml PRN PRN IV IV PROTOCOL; Start 02/07/17 at 14:30 Diphenhydramine HCl 25 mg 25 mg Q6H PRN IV itching Last administered on 00:00; Admin Dose 25 MG; Start 02/07/17 at 20:00 Ondansetron HCl/ Sodium Chloride (Zofran Inj/NS) 54 ml @ 216 mls/hr Q6H PRN IV NAUSEA AND/OR VOMITING; Start 02/09/17 at 11:30 Trimethobenzamide HCl (Tigan) 200 mg Q6H PRN IM NAUSEA AND/OR VOMITING; Start 02/10/17 at 19:30 Morphine Sulfate (morphine) 2 mg Q4H PRN IV pain Last administered on 03/18/17 00:36; Admin Dose 2 MG; Start 02/20/17 at 18:30 Docusate Sodium 100 mg 100 mg QHS PRN NGT For Constipation; Start 02/25/17 at 21:00 Acetaminophen (Ofirmev 1000mg/ 100ml Iv) 100 ml @ 50 mls/hr Q6H PRN IVPB fever Last administered on 03/06/17 20:44; Admin Dose 50 MLS/HR; Start at 07:30 Enoxaparin Sodium (Lovenox) 40 mg DAILY SC Last administered on 03/19/17 10:44 ; Admin Dose 40 MG; Start 03/03/17 at 09:00 Thiamine HCl (Vitamin B1) 100 mg AM PO Last administered on 03/19/17 10:34; Admin Dose 100 MG; Start 03/12/17 at 09:00; Stop 03/26/17 at 10:00 Zinc Sulfate (Zinc Sulfate) 220 mg DAILY PO Last administered on 03/19/17 10:34 ; Admin Dose 220 MG; Start 03/12/17 at 09:00; Stop 03/26/17 at 10:00 Lorazepam (Ativan) 0.5 mg Q6H PRN IV ANXIETY Last administered on 03/13/17 01: 16; Admin Dose 0.5 MG; Start 03/12/17 at 12:30 Furosemide (Lasix) 20 mg DAILY PEG Last administered on 03/19/17 10:34; Admin Dose 20 MG; Start 03/17/17 at 09:00 Metoclopramide HCl (Reglan) 5 mg TID PO Last administered on 03/19/17 10:33; Admin Dose 5 MG; Start 03/18/17 at 21:00 Polyethylene Glycol (Miralax) 17 gm Q72H PRN GTB CONSTIPATION Last administered on 03/19/17 03:15; Admin Dose 17 GM; Start 03/18/17 at 17:00 CAIT ELLIS MD Mar 19, 2017 12:52
[2017-03-19] MEDS ORDERED: BARIUM SULF 2% 450 ML BTL (BERRY SMOOTHIE) PO ONE (13:00)
--- NOTE | 2017-03-19 13:57 | CONS ---
Date/Time of Note Date/Time of Note DATE: 03/19/17 TIME: 13:56 Assessment/Plan Assessment/Plan Chief Complaint/Hosp Course SUBJECTIVE: no fevers, alert, looks comfortable. INDWELLINGS: Trach, PEG, Zeng, PICC line. PHYSICAL EXAMINATION: GENERAL: Cachectic, well-developed, middle-aged white man who is alert, in no distress. HEENT: Head atraumatic, normocephalic. Sclerae anicteric. Buccal mucosa dry. NECK: Supple. Tracheostomy present. CHEST: Rise symmetrical. Breath sounds clear. HEART: S1, S2. ABDOMEN: Soft, bowel sounds present. EXTREMITIES: No cyanosis. ASSESSMENT: 1. Status post sepsis with shock. 2. Status post perforated diverticulitis repair. 3. Status post pneumonia. 4. Crohn's disease. 5. History of ETOH abuse. 6. Persistent leukocytosis==> pending urine cx PLAN: Clinically stable, off antibiotics, will pna cx prn DW staff . Problems: Consultation Date/Type/Reason Admit Date/Time Feb 01, 2017 at 03:10 Initial Consult Date 02/02/17 Type of Consultation: id Referring Provider: VINCE PADGETT Exam/Review of Systems Vital Signs Vitals Vital Signs Date Time Temp Pulse Resp B/P Pulse Ox O2 Delivery O2 Flow Rate FiO2 03/19/17 12:00 100 03/19/17 11:21 30 97 35 03/19/17 10:56 98.6 119/79 Intake and Output 03/18/17 03/18/17 03/19/17 15:00 23:00 07:00 Intake Total 480 ml 720 ml Output Total 400 ml 400 ml Balance 80 ml 320 ml Results Result Diagram: 03/19/17 0600 03/19/17 0600 Results 24 hrs Laboratory Tests Test 03/19/17 06:00 White Blood Count 16.9 H Red Blood Count 3.01 L Hemoglobin 8.1 L Hematocrit 26.0 L Mean Corpuscular Volume 86.4 Mean Corpuscular Hemoglobin 26.9 L Mean Corpuscular Hemoglobin Concent 31.2 L Red Cell Distribution Width 15.8 H Platelet Count 496 H Mean Platelet Volume 11.4 H Neutrophils % 83.9 H Lymphocytes % 5.4 L Monocytes % 8.3 Eosinophils % 1.3 Basophils % 0.4 Nucleated Red Blood Cells % 0.0 Neutrophils # 14.2 H Lymphocytes # 0.9 Monocytes # 1.4 H Eosinophils # 0.2 Basophils # 0.1 Nucleated Red Blood Cells # 0.0 Sodium Level 138 Potassium Level 4.5 Chloride Level 92 L Carbon Dioxide Level 34 H Anion Gap 17 H Blood Urea Nitrogen 21 H Creatinine 0.53 L Glucose Level 110 Calcium Level 9.4 Magnesium Level 1.6 L Medications Medications Current Medications Pantoprazole (Protonix Iv) 40 mg DAILY@06 IV Last administered on 03/19/17 05: 00; Admin Dose 40 MG; Start 02/01/17 at 06:00 Acetaminophen/ Hydrocodone Bitart ([place] (5/325)) 1 tab Q4H PRN PO PAIN LEVEL 4 -7 Last administered on 03/17/17 16:12; Admin Dose 1 TAB; Start 02/01/17 at 20: 30 Acetaminophen/ Hydrocodone Bitart ([place] (5/325)) 2 tab Q4H PRN PO PAIN LEVEL 7 -10 Last administered on 03/13/17 22:39; Admin Dose 2 TAB; Start 02/01/17 at 20 :30 Bisacodyl (Dulcolax Supp) 10 mg BID PRN [place] CONSTIPATION; Start 02/01/17 at 20: 30 Sodium Biphosphate/ Sodium Phosphate (Fleet Enema) 133 ml BID PRN [place] CONSTIPATION; Start 02/01/17 at 20:30 Acetaminophen (Tylenol Liquid) 650 mg Q4H PRN GTB PAIN AND OR ELEVATED TEMP Last administered on 03/15/17 09:41; Admin Dose 650 MG; Start 02/05/17 at 18:30 IV Flush (NS 10 ml) 10 ml PRN PRN IV IV PROTOCOL; Start 02/07/17 at 14:30 Diphenhydramine HCl 25 mg 25 mg Q6H PRN IV itching Last administered on 00:00; Admin Dose 25 MG; Start 02/07/17 at 20:00 Ondansetron HCl/ Sodium Chloride (Zofran Inj/NS) 54 ml @ 216 mls/hr Q6H PRN IV NAUSEA AND/OR VOMITING; Start 02/09/17 at 11:30 Trimethobenzamide HCl (Tigan) 200 mg Q6H PRN IM NAUSEA AND/OR VOMITING; Start 02/10/17 at 19:30 Morphine Sulfate (morphine) 2 mg Q4H PRN IV pain Last administered on 03/18/17 00:36; Admin Dose 2 MG; Start 02/20/17 at 18:30 Docusate Sodium 100 mg 100 mg QHS PRN NGT For Constipation; Start 02/25/17 at 21:00 Acetaminophen (Ofirmev 1000mg/ 100ml Iv) 100 ml @ 50 mls/hr Q6H PRN IVPB fever Last administered on 03/06/17 20:44; Admin Dose 50 MLS/HR; Start at 07:30 Enoxaparin Sodium (Lovenox) 40 mg DAILY SC Last administered on 03/19/17 10:44 ; Admin Dose 40 MG; Start 03/03/17 at 09:00 Thiamine HCl (Vitamin B1) 100 mg AM PO Last administered on 03/19/17 10:34; Admin Dose 100 MG; Start 03/12/17 at 09:00; Stop 03/26/17 at 10:00 Zinc Sulfate (Zinc Sulfate) 220 mg DAILY PO Last administered on 03/19/17 10:34 ; Admin Dose 220 MG; Start 03/12/17 at 09:00; Stop 03/26/17 at 10:00 Lorazepam (Ativan) 0.5 mg Q6H PRN IV ANXIETY Last administered on 03/13/17 01: 16; Admin Dose 0.5 MG; Start 03/12/17 at 12:30 Furosemide (Lasix) 20 mg DAILY PEG Last administered on 03/19/17 10:34; Admin Dose 20 MG; Start 03/17/17 at 09:00 Metoclopramide HCl (Reglan) 5 mg TID PO Last administered on 03/19/17 13:22; Admin Dose 5 MG; Start 03/18/17 at 21:00 Polyethylene Glycol (Miralax) 17 gm Q72H PRN GTB CONSTIPATION Last administered on 03/19/17 03:15; Admin Dose 17 GM; Start 03/18/17 at 17:00 THOMAS ELLIS NP Mar 19, 2017 13:57
--- NOTE | 2017-03-19 14:24 | PN ---
Date/Time of Note Date/Time of Note DATE: 03/19/17 TIME: 14:22 Assessment/Plan VTE Prophylaxis VTE Prophylaxis Intervention: other Lines/Catheters IV Catheter Type (from Nrs): Central line still needed: No Urinary Cath still in place: No Assessment/Plan Chief Complaint/Hosp Course SP tracheostomy will continue vent support pulm toilet Trach care Problems: Subjective 24 Hr Interval Summary Gastrointestinal: no complaints Genitourinary: no complaints Musculoskeletal: no complaints Skin: no complaints Exam/Review of Systems Vital Signs Vitals Vital Signs Date Time Temp Pulse Resp B/P Pulse Ox O2 Delivery O2 Flow Rate FiO2 03/19/17 12:00 100 03/19/17 11:21 30 97 35 03/19/17 10:56 98.6 119/79 Intake and Output 03/18/17 03/18/17 03/19/17 15:00 23:00 07:00 Intake Total 480 ml 720 ml Output Total 400 ml 400 ml Balance 80 ml 320 ml Exam ENMT: nl external ears & nose, nl lips & teeth, nl nasal mucosa & septum Neck: non-tender, supple Respiratory: clear to auscultation, normal air movement Cardiovascular: nl pulses, regular rate and rhythm Results Result Diagram: 03/19/17 0600 03/19/17 0600 Results 24 hrs Laboratory Tests Test 03/19/17 06:00 White Blood Count 16.9 H Red Blood Count 3.01 L Hemoglobin 8.1 L Hematocrit 26.0 L Mean Corpuscular Volume 86.4 Mean Corpuscular Hemoglobin 26.9 L Mean Corpuscular Hemoglobin Concent 31.2 L Red Cell Distribution Width 15.8 H Platelet Count 496 H Mean Platelet Volume 11.4 H Neutrophils % 83.9 H Lymphocytes % 5.4 L Monocytes % 8.3 Eosinophils % 1.3 Basophils % 0.4 Nucleated Red Blood Cells % 0.0 Neutrophils # 14.2 H Lymphocytes # 0.9 Monocytes # 1.4 H Eosinophils # 0.2 Basophils # 0.1 Nucleated Red Blood Cells # 0.0 Sodium Level 138 Potassium Level 4.5 Chloride Level 92 L Carbon Dioxide Level 34 H Anion Gap 17 H Blood Urea Nitrogen 21 H Creatinine 0.53 L Glucose Level 110 Calcium Level 9.4 Magnesium Level 1.6 L Medications Medications Current Medications Pantoprazole (Protonix Iv) 40 mg DAILY@06 IV Last administered on 03/19/17 05: 00; Admin Dose 40 MG; Start 02/01/17 at 06:00 Acetaminophen/ Hydrocodone Bitart ([place]ise (5/325)) 1 tab Q4H PRN PO PAIN LEVEL 4 -7 Last administered on 03/17/17 16:12; Admin Dose 1 TAB; Start 02/01/17 at 20: 30 Acetaminophen/ Hydrocodone Bitart ([place]ise (5/325)) 2 tab Q4H PRN PO PAIN LEVEL 7 -10 Last administered on 03/13/17 22:39; Admin Dose 2 TAB; Start 02/01/17 at 20 :30 Bisacodyl (Dulcolax Supp) 10 mg BID PRN [place] CONSTIPATION; Start 02/01/17 at 20: 30 Sodium Biphosphate/ Sodium Phosphate (Fleet Enema) 133 ml BID PRN [place] CONSTIPATION; Start 02/01/17 at 20:30 Acetaminophen (Tylenol Liquid) 650 mg Q4H PRN GTB PAIN AND OR ELEVATED TEMP Last administered on 03/15/17 09:41; Admin Dose 650 MG; Start 02/05/17 at 18:30 IV Flush (NS 10 ml) 10 ml PRN PRN IV IV PROTOCOL; Start 02/07/17 at 14:30 Diphenhydramine HCl 25 mg 25 mg Q6H PRN IV itching Last administered on 00:00; Admin Dose 25 MG; Start 02/07/17 at 20:00 Ondansetron HCl/ Sodium Chloride (Zofran Inj/NS) 54 ml @ 216 mls/hr Q6H PRN IV NAUSEA AND/OR VOMITING; Start 02/09/17 at 11:30 Trimethobenzamide HCl (Tigan) 200 mg Q6H PRN IM NAUSEA AND/OR VOMITING; Start 02/10/17 at 19:30 Morphine Sulfate (morphine) 2 mg Q4H PRN IV pain Last administered on 03/18/17 00:36; Admin Dose 2 MG; Start 02/20/17 at 18:30 Docusate Sodium 100 mg 100 mg QHS PRN NGT For Constipation; Start 02/25/17 at 21:00 Acetaminophen (Ofirmev 1000mg/ 100ml Iv) 100 ml @ 50 mls/hr Q6H PRN IVPB fever Last administered on 03/06/17 20:44; Admin Dose 50 MLS/HR; Start at 07:30 Enoxaparin Sodium (Lovenox) 40 mg DAILY SC Last administered on 03/19/17 10:44 ; Admin Dose 40 MG; Start 03/03/17 at 09:00 Thiamine HCl (Vitamin B1) 100 mg AM PO Last administered on 03/19/17 10:34; Admin Dose 100 MG; Start 03/12/17 at 09:00; Stop 03/26/17 at 10:00 Zinc Sulfate (Zinc Sulfate) 220 mg DAILY PO Last administered on 03/19/17 10:34 ; Admin Dose 220 MG; Start 03/12/17 at 09:00; Stop 03/26/17 at 10:00 Lorazepam (Ativan) 0.5 mg Q6H PRN IV ANXIETY Last administered on 03/13/17 01: 16; Admin Dose 0.5 MG; Start 03/12/17 at 12:30 Furosemide (Lasix) 20 mg DAILY PEG Last administered on 03/19/17 10:34; Admin Dose 20 MG; Start 03/17/17 at 09:00 Metoclopramide HCl (Reglan) 5 mg TID PO Last administered on 03/19/17 13:22; Admin Dose 5 MG; Start 03/18/17 at 21:00 Polyethylene Glycol (Miralax) 17 gm Q72H PRN GTB CONSTIPATION Last administered on 03/19/17 03:15; Admin Dose 17 GM; Start 03/18/17 at 17:00 ROMAN OROZCO MD Mar 19, 2017 14:23
[2017-03-19] MEDS: HYDROCODONE/APAP (5/325) TAB PO PRN (16:09)
[2017-03-19] MEDS ORDERED: IOHEXOL 14.3 MG(I)/ML (ADULT) BTL PO ONE (17:00)
[2017-03-19] MEDS ORDERED: MAGNESIUM SULFATE 2 GM/50 ML 50 ML IVPB ONE (17:00)
[2017-03-20] VITALS (17 sets, daily range): BP systolic 111–123; BP diastolic 68–76; PULSE 10–110; RESP 15–35
[2017-03-20] MEDS: ACETAMINOPHEN 650MG/20.3ML CUP GTB PRN (01:59)
[2017-03-20] MEDS: ACETYLCYSTEINE 20% 4 ML VIAL NEB SCH ×3 (02:00→07:53)
[2017-03-20] MEDS: IPRATROPIUM (HFA) 12.9 GM INHALER INH SCH ×4 (02:01→19:31)
[2017-03-20] MEDS: ALBUTEROL 18 GM INHALER INH SCH ×3 (02:02→19:31)
[2017-03-20] MEDS: PANTOPRAZOLE 40 MG INJ IV SCH (06:20)
--- NOTE | 2017-03-20 08:00 | PN ---
Date/Time of Note Date/Time of Note DATE: 03/18/17 TIME: 07:57 Assessment/Plan Lines/Catheters IV Catheter Type (from Nrsg): Saline Lock Zeng in Place (from Nrsg): Yes Assessment/Plan Assessment/Plan [facility] Progress Note (late entry) Date of Service: 03/18/17 Today's Impression & Plan: Overall stable on the vent with trach and slowly improving; tolerating trach and PEG. Abd remains benign. Wound healing well. No indication for acute surgical intervention. Getting the sense that his mind is working better. With above assessment, I've recommended the following for today: 1. Cont current cares 2. F/u on cultures 3. Cont PEG enteric feeds 4. Cont weaning off the vent with continued pulmonary toilet 5. Social work and case management to please continue working on [facility] 6. Please involve PT/OT as much as possible 7. Increase activity 8. Increase ICS 9. Cont current wound care with wound vac 10. Continue prophylactic anticoagulation (no contraindication from surgical standpoint) Thank you again for your great care of this very pleasant patient and wonderful family. If there are any questions, please feel free to call me at [phone]. TOTAL VISIT TIME: 20 minutes of which more than half was spent in [id number] discussion with the patient, possibly including family, as well as coordination of care between multiple physicians and providers. Disclaimer: Inadvertent spelling or grammatical errors are likely due to EHR/ dictation software use and do not reflect on the overall quality of patient care. Updated Clinical Summary: A very pleasant 46-year-old gentleman with history of Crohn's disease as well as prior surgery for anal fistula approximately 5 years ago, and a torn meniscus repair on the left knee, presenting with abdominal pain associated with a few weeks' duration of diarrhea. S/p an otherwise uncomplicated diagnostic laparoscopy was converted first to hand assist and then to open exploration when perforated sigmoid colon was found and it was resected with a Deena type procedure and end colostomy as well as core needle liver biopsy, segment 5, due to presence of fatty liver disease, lysis of adhesions, and abdominal lavage on 02/01/17. Failed to wean off the vent through 02/06/17. PE was evaluated 02/07/[address] angio and no evidence found. CT abd/pelvis also did not show actionable findings (no abscess; bowel thickening somewhat expected). Extubated 02/07/17. KEY BED INSTALLER called early am 02/13/17 with a few minutes coding, requiring intubation and transfer to ICU. Fortunately, mentally appears to be intact and not on pressors. Lactic acid and CO2 normal with benign appearing abd and viable ostomy. Complicated by fascia dehiscence. S/p exploration of abdomen through recent laparotomy, primary closure of fascia and abdominal lavage on 02/15/17. Reintubated 02/25/17 for bronchoscopy to remove mucus plug. Extubated 02/28/17. Re-intubated 03/05/17 due to respiratory failure and hypoxia. 03/05/17: HIV negative and hepatitis B&C neg. Brain MRI did not contribute to the diagnosis, but no mass effect, obvious hemorrhage or other explanatory findings. S/p trach and PEG 03/09/17. COMORBIDITIES: 1. Crohn disease with perforation of sigmoid colon and sepsis. S/p an otherwise uncomplicated diagnostic laparoscopy was converted first to hand assist and then to open exploration when perforated sigmoid colon was found and it was resected with a Deena type procedure and end colostomy as well as core needle liver biopsy, segment 5, due to presence of fatty liver disease, lysis of adhesions, and abdominal lavage on 02/01/17. Complicated by respiratory failure, return trip to ICU and fascia dehiscence. S/p exploration of abdomen through recent laparotomy, primary closure of fascia and abdominal lavage on 02/15. 2. Repair of a fistula approximately 5 years ago. 3. Torn meniscus on the left knee status post repair. 4. S/p trach and PEG 03/09/17 at [facility]. Subjective: No major events or complications; remains on the vent; seems interactive; does not report any major abdominal pain, SOB, CP or nausea; on CPAP on the vent and does not report respiratory difficulties Objective: Vitals: See below Exam: GENERAL: On exam, the patient was laying in bed and appeared to be comfortable and in no acute distress. On the vent with trach. Eyes open and responds to voice. ABDOMEN: Soft, nontender and nondistended. Incision wound vac dressings clean without any evidence of obvious erythema, edema, discharge, or hernia. Wound vac with no sig drainage. Surgery drain site clean. Ostomy pink and viable; some air and stool in the bag. There are no peritoneal signs or guarding. PEG in place and tube feeing ongoing. SKIN: Skin appears to be pink and feels warm to touch. NEUROLOGIC: Patient's eyes open and responds to voice. and follows simple commands appropriately. Exam/Review of Systems Vital Signs Vitals Vital Signs Date Time Temp Pulse Resp B/P Pulse Ox O2 Delivery O2 Flow Rate FiO2 03/20/17 05:06 104 31 98 35 03/20/17 04:00 98.2 118/68 Intake and Output 03/19/17 03/19/17 03/20/17 15:00 23:00 07:00 Intake Total 825 ml 700 ml Output Total 140 ml Balance 685 ml 700 ml Results Result Diagram: 03/19/17 0600 03/19/17 0600 TI HILTON M.D. Mar 20, 2017 08:00
--- NOTE | 2017-03-20 08:05 | PN ---
Date/Time of Note Date/Time of Note DATE: 03/19/17 TIME: 08:00 Assessment/Plan Lines/Catheters IV Catheter Type (from Nrsg): Saline Lock Zeng in Place (from Nrsg): Yes Assessment/Plan Assessment/Plan [facility] Progress Note (late entry) Date of Service: 03/19/17 Today's Impression & Plan: Overall stable on the vent with trach and continuing to improve; tolerating trach and PEG. Abd remains benign. Wound healing well. No indication for acute surgical intervention. Answered several questions (patient wrote them down and they were pertinent and timely questions, indicating much improved neurologic state). Despite normal albumin, patient still requires a bit more than his maintenance caloric intake given the long hospitalization and catabolic state that he had over several weeks. With above assessment, I've recommended the following for today: 1. Cont current cares 2. F/u on cultures 3. Cont PEG enteric feeds; please gear feeds for a goal of about 1800 to 2000 kCal per day; check pre-albumin and albumin to monitor 4. Cont weaning off the vent with continued pulmonary toilet 5. Social work and case management to please continue working on [facility] 6. Please involve PT/OT as much as possible 7. Increase activity 8. Increase ICS 9. Cont current wound care with wound vac 10. Continue prophylactic anticoagulation (no contraindication from surgical standpoint) Thank you again for your great care of this very pleasant patient and wonderful family. If there are any questions, please feel free to call me at [phone]. TOTAL VISIT TIME: 20 minutes of which more than half was spent in [id number] discussion with the patient, possibly including family, as well as coordination of care between multiple physicians and providers. Disclaimer: Inadvertent spelling or grammatical errors are likely due to EHR/ dictation software use and do not reflect on the overall quality of patient care. Updated Clinical Summary: A very pleasant 46-year-old gentleman with history of Crohn's disease as well as prior surgery for anal fistula approximately 5 years ago, and a torn meniscus repair on the left knee, presenting with abdominal pain associated with a few weeks' duration of diarrhea. S/p an otherwise uncomplicated diagnostic laparoscopy was converted first to hand assist and then to open exploration when perforated sigmoid colon was found and it was resected with a Deena type procedure and end colostomy as well as core needle liver biopsy, segment 5, due to presence of fatty liver disease, lysis of adhesions, and abdominal lavage on 02/01/17. Failed to wean off the vent through 02/06/17. PE was evaluated 02/07/[address] angio and no evidence found. CT abd/pelvis also did not show actionable findings (no abscess; bowel thickening somewhat expected). Extubated 02/07/17. BODY ROLLING MACHINE TENDER called early am 02/13/17 with a few minutes coding, requiring intubation and transfer to ICU. Fortunately, mentally appears to be intact and not on pressors. Lactic acid and CO2 normal with benign appearing abd and viable ostomy. Complicated by fascia dehiscence. S/p exploration of abdomen through recent laparotomy, primary closure of fascia and abdominal lavage on 02/15/17. Reintubated 02/25/17 for bronchoscopy to remove mucus plug. Extubated 02/28/17. Re-intubated 03/05/17 due to respiratory failure and hypoxia. 03/05/17: HIV negative and hepatitis B&C neg. Brain MRI did not contribute to the diagnosis, but no mass effect, obvious hemorrhage or other explanatory findings. S/p trach and PEG 03/09/17. COMORBIDITIES: 1. Crohn disease with perforation of sigmoid colon and sepsis. S/p an otherwise uncomplicated diagnostic laparoscopy was converted first to hand assist and then to open exploration when perforated sigmoid colon was found and it was resected with a Deena type procedure and end colostomy as well as core needle liver biopsy, segment 5, due to presence of fatty liver disease, lysis of adhesions, and abdominal lavage on 02/01/17. Complicated by respiratory failure, return trip to ICU and fascia dehiscence. S/p exploration of abdomen through recent laparotomy, primary closure of fascia and abdominal lavage on 02/15. 2. Repair of a fistula approximately 5 years ago. 3. Torn meniscus on the left knee status post repair. 4. S/p trach and PEG 03/09/17 at [facility]. Subjective: No major events or complications; remains on the vent; seems interactive; does not report any major abdominal pain, SOB, CP or nausea Objective: Vitals: See below Exam: GENERAL: On exam, the patient was laying in bed and appeared to be comfortable and in no acute distress. On the vent with trach. Eyes open and responds to voice. ABDOMEN: Soft, nontender and nondistended. Incision wound vac dressings clean without any evidence of obvious erythema, edema, discharge, or hernia. Wound vac with no sig drainage. Surgery drain site clean. Ostomy pink and viable; some air and stool in the bag. There are no peritoneal signs or guarding. PEG in place and tube feeing ongoing. SKIN: Skin appears to be pink and feels warm to touch. NEUROLOGIC: Patient's eyes open and responds to voice. and follows simple commands appropriately. Exam/Review of Systems Vital Signs Vitals Vital Signs Date Time Temp Pulse Resp B/P Pulse Ox O2 Delivery O2 Flow Rate FiO2 03/20/17 05:06 104 31 98 35 03/20/17 04:00 98.2 118/68 Intake and Output 03/19/17 03/19/17 03/20/17 15:00 23:00 07:00 Intake Total 825 ml 700 ml Output Total 140 ml Balance 685 ml 700 ml Results Result Diagram: 03/19/17 0600 03/19/17 0600 TI HILTON M.D. Mar 20, 2017 08:05
[2017-03-20] MEDS ORDERED: IOHEXOL 300MG/ML 150 ML BTL ONE (09:00)
[2017-03-20] MEDS ORDERED: SOD CHLORIDE 0.9% 100 ML ONE (09:00)
[2017-03-20] MEDS: ZINC SULFATE 220 MG CAP PO SCH (10:06)
[2017-03-20] MEDS: METOCLOPRAMIDE 5 MG TAB PO SCH ×3 (10:06→21:27)
[2017-03-20] MEDS: THIAMINE 100 MG TAB PO SCH (10:06)
[2017-03-20] MEDS: HYDROCODONE/APAP (5/325) TAB PO PRN (10:09)
[2017-03-20] MEDS: ENOXAPARIN 40 MG/0.4 ML SYG SC SCH (10:17)
[2017-03-20] MEDS: FUROSEMIDE 20 MG TAB PEG SCH (10:17)
--- NOTE | 2017-03-20 10:31 | RADRPT ---
PROCEDURE: CT abdomen and pelvis with contrast. CLINICAL INDICATION: Follow-up of fluid collections TECHNIQUE: CT scan of the abdomen and pelvis with contrast was [facility] The patient was scanned after administration of 90 cc of Omnipaque-300 intravenous contrast. Sagittal and coronal reformatted images were obtained from the axial source images. One or more of the following dose reduction techniques were used: - Automated exposure control. - Adjustment of the mA and/or kV according to patient size. - Use of iterative reconstruction technique. DLP 438.0 mGycm. CTDIvol 7.2 mGy COMPARISON: 02/28/2017 FINDINGS: Previously seen right-sided pleural effusion has diminished and there is no a focus of consolidation seen in the posterior right lower lobe and associated with an area of bronchial occlusion. There i s a loculated small to moderate left-sided pleural effusion with pleural thickening and tenting of t he lung parenchyma towards the pleural margin. This is unchanged. There is continued peribronchial g round-glass is seen in the lower lungs with subpleural scarring. The heart is mildly enlarged.. Claudia nary artery calcifications are seen in the heart. There are multiple enhancing fluid collection seen within the abdomen and pelvis including several s ubserosal perihepatic fluid collections and the largest of these is again at the dome measuring up t o 4.4 x 4.7 cm previously 7.9 x 2.7 cm diminished in size from prior exam. Several other smaller col lections are again seen extending inferiorly along the right pericolic gutter. There is a slightly d iminished in size subjectively overall. Previously seen crescentic fluid collection along the left p eritoneal margin of the left abdomen has since resolved. There is continued fat stranding inflammat ion involving the mesentery of the abdomen and pelvis of moderate severity and this appears to sligh tly diminished as well. There is diffuse mild anasarca of the soft tissues of the abdomen and pelvis. There is hepatomegaly seen there is stable. There is no evidence of a parenchymal hepatic lesion how ever there is a stable scalloped appearance of the hepatic margin secondary to the serosal fluid col lections. The gallbladder is partially contracted with possible mild gallstones. Trace gallbladder wall thickening could represent third spacing of fluid which is stable. The portal vein is intact wi thout thrombus. There is mild splenomegaly. The adrenal glands are unremarkable. The kidneys enhance symmetrically w ithout hydronephrosis and the pancreas is within normal limits without focal lesion or surrounding i nflammatory changes. Previously seen crescentic fluid collection along the gastric margin has since resolved. There is a gastrostomy tube in place which appears grossly uncomplicated. There is a left lower quadrant colo stomy. There is generalized mild wall thickening of the small and large bowel without obstruction an d there is no intraperitoneal free air. Zeng catheter of rectal tumor present. The prostate is at the upper limits of normal in size. Aorti c atherosclerosis is seen. There are degenerative changes of the lumbar spine without fracture or di slocation. RPTAT: AA IMPRESSION: Left lower quadrant fluid collection and the gastric fluid collection of both resolved. There are se veral right-sided fluid collections which remain that appears slightly diminished in size. Scallope d appearance of the liver is again seen secondary to a pair hepatic collections. There is development of right lower lobe peribronchial consolidation with an area of focal airways o cclusion. This can be correlated with bronchoscopy. Loculated left pleural effusion is stable. Cardiomegaly and diffuse mild anasarca is present. There is stable mild diffuse wall thickening of the small and large bowel which could represent thir d spacing of fluid. Left lower quadrant colostomy is seen without obstruction. Gallbladder wall thickening is seen with cholelithiasis. This could represent third spacing of fluid into the gallbladder wall. Peribronchial ground-glass in the lower lungs could represent edema or atypical inflammation/infecti on. Gastrostomy tube is in place which appears grossly uncomplicated. RPTAT: AA .Ifeoma Ty MD, Date Time Electronically viewed and signed by .Ifeoma Ty MD, MD on 03/20/2017 10:31 .J/
--- NOTE | 2017-03-20 11:54 | CONS ---
Date/Time of Note Date/Time of Note DATE: 03/20/17 TIME: 11:52 Assessment/Plan Assessment/Plan Additional Assessment/Plan Assessment recommendations; 1. Patient admitted for diverticulitis requiring left sigmoidectomy with colostomy however patient has a negative postop course on treated by multiple episodes of respiratory failure due to pneumonia and atelectasis requiring tracheostomy ultimately with G-tube. 2. Markedly improved overall clinical status. 3. Multiple abdominal fluid collections likely seromas. Patient off antibiotics. Give the patient a trial of T-piece as tolerated. Continue current supportive measures. Consultation Date/Type/Reason Admit Date/Time Feb 01, 2017 at 03:10 Initial Consult Date 02/02/17 Type of Consultation: Pulmonary Referring Provider: VINCE PADGETT 24 HR Interval Summary Free Text/Dictation Patient condition stable. Remains completely awake alert. Follows simple commands and moves all 4 extremities on command. Has remained hemodynamically stable. Patient has been on CPAP mode for the last 1 day. And is exhibiting adequate weaning parameters. General exam; middle-aged male, awake alert currently in no distress on ventilator via tracheostomy. Exam/Review of Systems Vital Signs Vitals Vital Signs Date Time Temp Pulse Resp B/P Pulse Ox O2 Delivery O2 Flow Rate FiO2 03/20/17 09:35 87 25 100 30 03/20/17 09:00 99.1 123/76 Intake and Output 03/19/17 03/19/17 03/20/17 15:00 23:00 07:00 Intake Total 825 ml 700 ml Output Total 140 ml Balance 685 ml 700 ml Exam HEENT exam; supple neck, no JVD. No lymphadenopathy. Midline trachea. No thyromegaly. Tracheostomy in place with clean insertion site. Patient has fair dentition. Pupils are midsize and reactive to light. Chest examination; clear to ulceration. S1-S2 audible, no murmurs. Regular rhythm. Abdomen examination; soft, no organomegaly. Nontender. Colostomy in place. G- tube in place. Bowel sounds audible. Extremity examination; no peripheral edema. TANK INSULATOR RUBBER examination; no focal motor deficit. Results Result Diagram: 03/19/17 0600 03/19/17 0600 Medications Medications Current Medications Pantoprazole (Protonix Iv) 40 mg DAILY@06 IV Last administered on 03/20/17t 06: 20; Admin Dose 40 MG; Start 02/01/17 at 06:00 Acetaminophen/ Hydrocodone Bitart ([place] (5/325)) 1 tab Q4H PRN PO PAIN LEVEL 4 -7 Last administered on 03/17/17 16:12; Admin Dose 1 TAB; Start 02/01/17 at 20: 30 Acetaminophen/ Hydrocodone Bitart ([place] (5/325)) 2 tab Q4H PRN PO PAIN LEVEL 7 -10 Last administered on 03/20/17 10:09; Admin Dose 2 TAB; Start 02/01/17 at 20: 30 Bisacodyl (Dulcolax Supp) 10 mg BID PRN [place] CONSTIPATION; Start 02/01/17 at 20: 30 Sodium Biphosphate/ Sodium Phosphate (Fleet Enema) 133 ml BID PRN [place] CONSTIPATION; Start 02/01/17 at 20:30 Acetaminophen (Tylenol Liquid) 650 mg Q4H PRN GTB PAIN AND OR ELEVATED TEMP Last administered on 03/20/17 01:59; Admin Dose 650 MG; Start 02/05/17 at 18:30 IV Flush (NS 10 ml) 10 ml PRN PRN IV IV PROTOCOL; Start 02/07/17 at 14:30 Diphenhydramine HCl 25 mg 25 mg Q6H PRN IV itching Last administered on 00:00; Admin Dose 25 MG; Start 02/07/17 at 20:00 Ondansetron HCl/ Sodium Chloride (Zofran Inj/NS) 54 ml @ 216 mls/hr Q6H PRN IV NAUSEA AND/OR VOMITING; Start 02/09/17 at 11:30 Trimethobenzamide HCl (Tigan) 200 mg Q6H PRN IM NAUSEA AND/OR VOMITING; Start 02/10/17 at 19:30 Morphine Sulfate (morphine) 2 mg Q4H PRN IV pain Last administered on 03/18/17 00:36; Admin Dose 2 MG; Start 02/20/17 at 18:30 Docusate Sodium 100 mg 100 mg QHS PRN NGT For Constipation; Start 02/25/17 at 21:00 Acetaminophen (Ofirmev 1000mg/ 100ml Iv) 100 ml @ 50 mls/hr Q6H PRN IVPB fever Last administered on 03/06/17 20:44; Admin Dose 50 MLS/HR; Start at 07:30 Enoxaparin Sodium (Lovenox) 40 mg DAILY SC Last administered on 03/20/17 10:17 ; Admin Dose 40 MG; Start 03/03/17 at 09:00 Thiamine HCl (Vitamin B1) 100 mg AM PO Last administered on 03/20/17 10:06; Admin Dose 100 MG; Start 03/12/17 at 09:00; Stop 03/26/17 at 10:00 Zinc Sulfate (Zinc Sulfate) 220 mg DAILY PO Last administered on 03/20/17 10:06 ; Admin Dose 220 MG; Start 03/12/17 at 09:00; Stop 03/26/17 at 10:00 Lorazepam (Ativan) 0.5 mg Q6H PRN IV ANXIETY Last administered on 03/13/17 01: 16; Admin Dose 0.5 MG; Start 03/12/17 at 12:30 Furosemide (Lasix) 20 mg DAILY PEG Last administered on 03/20/17 10:17; Admin Dose 20 MG; Start 03/17/17 at 09:00 Metoclopramide HCl (Reglan) 5 mg TID PO Last administered on 03/20/17 10:06; Admin Dose 5 MG; Start 03/18/17 at 21:00 Polyethylene Glycol (Miralax) 17 gm Q72H PRN GTB CONSTIPATION Last administered on 03/19/17 03:15; Admin Dose 17 GM; Start 03/18/17 at 17:00 RICHAR ADRIAN Mar 20, 2017 11:54
--- NOTE | 2017-03-20 12:36 | PN ---
Date/Time of Note Date/Time of Note DATE: 03/20/17 TIME: 12:32 Assessment/Plan VTE Prophylaxis VTE Prophylaxis Intervention: LMWH Lines/Catheters IV C[facility] Type [facility]from [facility] Saline Lock Urinary Cath still in place: Yes Reason Cath still needed: other (indicate) Assessment/Plan Assessment/Plan 1. Perforated sigmoid colon 2/2 Severe Crohn's colitis * S/p Urgent Open Cronin's procedure with end colostomy, liver biopsy and abdominal lavage 02/01/17 * S/p post operative paracolic abscess drained via CT 02/14/[address] * S/p Exploration of abdomen through recent laparotomy site with closure of fascia done 02/15/17 for Fascia dehiscence * PEG placed 03/11/17 days ago - continue PEG feeds. 2. Recurrent Resp failure: Extubated then reintubated 02/13, extubated, then reintubated 02/25/17, then extubated 02/27 and reintubated 03/04 * Status post bronchoscopy with clearance of extensive secretions in the left mainstem bronchus with improved aeration radiographically 02/25 * Pulm concerned about possible neuro muscular injury contributing to recurrent resp failure - s/p trach placement , patient is planned for T piece trial today 3. S/p Exacerbation of Crohn's disease with acute colitis and diarrhea: See # 1 Cultures earlier were growing ecoli / proteus / enterococcus /patient is now off antibiotic 4. s/p Multifocal PNA + Mook Pleural effusions - Effusions likely hydrostatic from hypoalbuminemia. + fevers -Off antibiotics 5. s/p Severe Sepsis with lactic acidosis 2/2 severe colitis / PNA - off abx 6. S/p Systemic shock (hypovolemic +septic) - again, see # 5, abx: Resolved 7. Status post TPN therapy for low prealbumin: At this time patient is on PEG tube feeding 8. Hx of heavy alcohol and tobacco use just until admission - monitor 9. Probable underlying COPD and Cirrhosis based on hx which explains hypoalbuminemia and anasarca - monitor 10. Severe recurrent anemia likely 2/2 occult blood loss from multiple sources : PRN transfusions 11. Hypomagnesemia - replete as needed 12. Encephalopathy / Confusion, resolved, patient may have suffered some anoxic brain insult during the course of his hospitalization.: Patient is quite oriented at this time Dispo: Continue current regimen SNF versus [facility] placement pending Tolerating tube feeds Follow-up senior data integration developer and general surgery recommendation Subjective 24 Hr Interval Summary Free Text/Dictation Patient significantly reviewed from the time of my last review. Patient is able to answer questions or follow commands appropriately at this time. He has no new complaints. Exam/Review of Systems Vital Signs Vitals Vital Signs Date Time Temp Pulse Resp B/P Pulse Ox O2 Delivery O2 Flow Rate FiO2 03/20/17 09:35 87 25 100 30 03/20/17 09:00 99.1 123/76 Intake and Output 03/19/17 03/19/17 03/20/17 14:59 22:59 06:59 Intake Total 825 ml 700 ml Output Total 140 ml Balance 685 ml 700 ml Exam General: The patient is well-developed, Not in acute distress. HEENT: Atraumatic, normocephalic. The pupils are equal and round . Neck: Tracheostomy in place Chest: Normal expansion of the thorax during inspiration Lungs: Clear to auscultation bilaterally Heart: Normal S1-S2, Regular rhythm and rate. Abdomen: Soft , nontender, nondistended , bowel sounds are present. PEG tube and wound VAC in mid abdominal region Extremities: Normal to inspection, no edema no cyanosis Neurologic: Normal mental status,The patient is awake, alert and oriented . Results Result Diagram: 03/19/17 0600 03/19/17 0600 Medications Medications Current Medications Pantoprazole (Protonix Iv) 40 mg DAILY@06 IV Last administered on 03/20/17 06: 20; Admin Dose 40 MG; Start 02/01/17 at 06:00 Acetaminophen/ Hydrocodone Bitart ([place] (5/325)) 1 tab Q4H PRN PO PAIN LEVEL 4 -7 Last administered on 03/17/17 16:12; Admin Dose 1 TAB; Start 02/01/17 at 20: 30 Acetaminophen/ Hydrocodone Bitart ([place] (5/325)) 2 tab Q4H PRN PO PAIN LEVEL 7 -10 Last administered on 03/20/17 10:09; Admin Dose 2 TAB; Start 02/01/17 at 20: 30 Bisacodyl (Dulcolax Supp) 10 mg BID PRN [place] CONSTIPATION; Start 02/01/17 at 20: 30 Sodium Biphosphate/ Sodium Phosphate (Fleet Enema) 133 ml BID PRN [place] CONSTIPATION; Start 02/01/17 at 20:30 Acetaminophen (Tylenol Liquid) 650 mg Q4H PRN GTB PAIN AND OR ELEVATED TEMP Last administered on 03/20/17 01:59; Admin Dose 650 MG; Start 02/05/17 at 18:30 IV Flush (NS 10 ml) 10 ml PRN PRN IV IV PROTOCOL; Start 02/07/17 at 14:30 Diphenhydramine HCl 25 mg 25 mg Q6H PRN IV itching Last administered on 00:00; Admin Dose 25 MG; Start 02/07/17 at 20:00 Ondansetron HCl/ Sodium Chloride (Zofran Inj/NS) 54 ml @ 216 mls/hr Q6H PRN IV NAUSEA AND/OR VOMITING; Start 02/09/17 at 11:30 Trimethobenzamide HCl (Tigan) 200 mg Q6H PRN IM NAUSEA AND/OR VOMITING; Start 02/10/17 at 19:30 Morphine Sulfate (morphine) 2 mg Q4H PRN IV pain Last administered on 03/18/17 00:36; Admin Dose 2 MG; Start 02/20/17 at 18:30 Docusate Sodium 100 mg 100 mg QHS PRN NGT For Constipation; Start 02/25/17 at 21:00 Acetaminophen (Ofirmev 1000mg/ 100ml Iv) 100 ml @ 50 mls/hr Q6H PRN IVPB fever Last administered on 03/06/17 20:44; Admin Dose 50 MLS/HR; Start at 07:30 Enoxaparin Sodium (Lovenox) 40 mg DAILY SC Last administered on 03/20/17 10:17 ; Admin Dose 40 MG; Start 03/03/17 at 09:00 Thiamine HCl (Vitamin B1) 100 mg AM PO Last administered on 03/20/17 10:06; Admin Dose 100 MG; Start 03/12/17 at 09:00; Stop 03/26/17 at 10:00 Zinc Sulfate (Zinc Sulfate) 220 mg DAILY PO Last administered on 03/20/17 10:06 ; Admin Dose 220 MG; Start 03/12/17 at 09:00; Stop 03/26/17 at 10:00 Lorazepam (Ativan) 0.5 mg Q6H PRN IV ANXIETY Last administered on 03/13/17 01: 16; Admin Dose 0.5 MG; Start 03/12/17 at 12:30 Furosemide (Lasix) 20 mg DAILY PEG Last administered on 03/20/17 10:17; Admin Dose 20 MG; Start 03/17/17 at 09:00 Metoclopramide HCl (Reglan) 5 mg TID PO Last administered on 03/20/17 10:06; Admin Dose 5 MG; Start 03/18/17 at 21:00 Polyethylene Glycol (Miralax) 17 gm Q72H PRN GTB CONSTIPATION Last administered on 03/19/17 03:15; Admin Dose 17 GM; Start 03/18/17 at 17:00 VINCE PADGETT Mar 20, 2017 12:36
--- NOTE | 2017-03-20 15:21 | PN ---
Date/Time of Note Date/Time of Note DATE: 03/20/17 TIME: 15:20 Assessment/Plan Lines/Catheters IV Catheter Type (from Nrsg): Saline Lock Zeng in Place (from Nrsg): Yes Assessment/Plan Chief Complaint/Hosp Course SP tracheostomy will continue vent support pulm toilet Trach care DC sutures Problems: Subjective 24 Hr Interval Summary Constitutional: improved Pain Control: mild Exam/Review of Systems Vital Signs Vitals Vital Signs Date Time Temp Pulse Resp B/P Pulse Ox O2 Delivery O2 Flow Rate FiO2 03/20/17 13:00 95 5.0 28 03/20/17 12:31 96 03/20/17 12:00 98.1 17 111/71 Intake and Output 03/19/17 03/19/17 03/20/17 15:00 23:00 07:00 Intake Total 825 ml 700 ml Output Total 140 ml Balance 685 ml 700 ml Exam ENMT: mucosa pink and moist, nl external ears & nose, nl lips & teeth, nl nasal mucosa & septum Neck: non-tender, supple Respiratory: clear to auscultation, normal air movement Cardiovascular: nl pulses, regular rate and rhythm Results Result Diagram: 03/19/17 0600 03/19/17 0600 MALEROMAN LAMA MD Mar 20, 2017 15:21
--- NOTE | 2017-03-20 15:21 | PN ---
DATE: 03/20/2017 SUBJECTIVE: Patient is alert, comfortable on T-piece. No fevers. His T-max last night was 100.8. WBC today 16.9 with H and H 8.1 and 26, platelets 496, neutrophils 83.9, BUN 21, creatinine 0.53. INDWELLINGS: Trach, PEG, Zeng, PICC line. DIAGNOSTICS: CT of the abdomen and pelvis resolved. Left lower quadrant fluid collection and gastr ic fluid collection. Several right-sided fluid collections remain apparently slightly diminished in size. Development of right lower lobe peribronchial consolidation with an area of focal airway occ lusion. Loculated left pleural effusion, stable. Gallbladder thickening with cholelithiasis. PHYSICAL EXAMINATION: GENERAL: This is a well-developed, wasted, middle-aged white man who is alert, in no distress. HEENT: Head atraumatic, normocephalic. Sclerae anicteric. Buccal mucosa dry. NECK: Supple. Tracheostomy present. CHEST: Rise symmetrical. Breath sounds diminished to bases. HEART: S1, S2. ABDOMEN: Soft. Bowel tones present. EXTREMITIES: Without cyanosis or edema. ASSESSMENT: 1. Systemic inflammatory response syndrome with low grade fevers and leukocytosis. 2. Possible early pneumonia as per CT of the abdomen and pelvis. 3. Status post perforated bowel repair. 4. History of ETOH abuse. 5. Crohn's disease. PLAN: The patient remains stable. We are going to start him on Zosyn. We will repeat blood cultur es if he spikes fever of 101 or above. Follow pulmonary surgical recommendations. Dictated By: THOMAS ELLIS SENIOR CASE MANAGER for MICKY RAMÍREZ/YAN Conf#: [id number] DID#: [id number]
[2017-03-20] MEDS: morphine 2 MG INJ IV PRN (15:39)
--- NOTE | 2017-03-20 15:42 | PDOCDIS ---
Discharge Instructions CONDITION Patient Condition: Stable HOME CARE INSTRUCTIONS: Special Diet: TUBE FEEDING. FOLLOW UP/APPOINTMENTS Appointments Patient is to follow-up with Shiela Blackwood in 2-4 weeks. VINCE PADGETT Mar 20, 2017 15:42
[2017-03-20] MEDS: PIPER-TAZO 3.375 GM IV (PMX) 100 ML IVPB SCH ×2 (16:11→21:27)
[2017-03-20] MEDS: LORAZEPAM 2 MG INJ IV PRN (16:57)
[2017-03-20] MEDS: ALBUTEROL/IPRATROPIUM (NEB) 3 ML AMP HHN PRN (19:40)
[2017-03-21] VITALS (10 sets, daily range): BP systolic 108–162; BP diastolic 62–76; PULSE 85–100; RESP 15–20
[2017-03-21] MEDS: ACETAMINOPHEN 650MG/20.3ML CUP GTB PRN ×2 (00:49→09:15)
[2017-03-21] MEDS: morphine 2 MG INJ IV PRN (01:04)
[2017-03-21] MEDS: IPRATROPIUM (HFA) 12.9 GM INHALER INH SCH ×3 (01:10→20:20)
[2017-03-21] MEDS: ALBUTEROL 18 GM INHALER INH SCH ×3 (01:10→20:20)
[2017-03-21] MEDS: ALBUTEROL/IPRATROPIUM (NEB) 3 ML AMP HHN PRN (01:11)
[2017-03-21] MEDS: PIPER-TAZO 3.375 GM IV (PMX) 100 ML IVPB SCH ×5 (02:48→23:52)
[2017-03-21] MEDS: PANTOPRAZOLE 40 MG INJ IV SCH (05:58)
[2017-03-21] MEDS: FUROSEMIDE 20 MG TAB PEG SCH (09:00)
[2017-03-21] MEDS: THIAMINE 100 MG TAB PO SCH (09:15)
[2017-03-21] MEDS: METOCLOPRAMIDE 5 MG TAB PO SCH ×3 (09:15→21:25)
[2017-03-21] MEDS: ZINC SULFATE 220 MG CAP PO SCH (09:15)
[2017-03-21] MEDS: ENOXAPARIN 40 MG/0.4 ML SYG SC SCH (09:21)
--- NOTE | 2017-03-21 14:11 | CONS ---
Date/Time of Note Date/Time of Note DATE: 03/21/17 TIME: 14:09 Assessment/Plan Assessment/Plan Additional Assessment/Plan Assessment recommendations; 1. Patient admitted for diverticulitis requiring a sigmoid resection laparoscopically with colostomy however patient developed significant postop complications fluctuated by recurrent respiratory failure due to atelectasis and pneumonia subsequently requiring a tracheostomy and G-tube. 2. Muscular weakness. From critical illness myopathy, clinically improving. 3. Respiratory failure, patient weaned to tracheal T piece and is doing very well from that perspective. 4. Multiple small intra-abdominal fluid collections possibly abscesses, started on Zosyn yesterday. Continue current supportive care. Consultation Date/Type/Reason Admit Date/Time Feb 01, 2017 at 03:10 Initial Consult Date 02/02/17 Type of Consultation: Pulmonary Referring Provider: VINCE PADGETT 24 HR Interval Summary Free Text/Dictation Patient condition stable. Remains completely awake and alert. Has been switched over to oral aerosol via tracheal T piece and the patient is tolerating that very well. General exam; middle-aged male, awake alert currently in no distress. Exam/Review of Systems Vital Signs Vitals Vital Signs Date Time Temp Pulse Resp B/P Pulse Ox O2 Delivery O2 Flow Rate FiO2 03/21/17 13:48 88 20 97 28 03/21/17 10:57 98.8 108/70 03/21/17 05:28 5.0 Intake and Output 03/20/17 03/20/17 03/21/17 15:00 23:00 07:00 Intake Total 900 ml 700 ml Output Total 700 ml 450 ml Balance 200 ml 250 ml Exam HEENT examination; supple neck, no JVD. No lymphadenopathy. Midline trachea. No thyromegaly. Trach ostomy placed with clean insertion site. S2 T-piece. Patient has fair dentition. Pupils are midsize and reactive to light. Chest examination; clear to auscultation. S1-S2 audible, no murmurs. Regular rhythm. Abdomen examination; soft, G-tube in place. No organomegaly. Colostomy in place. Bowel sounds audible. Extremity examination; no peripheral edema. Pulses 1+ bilaterally. PRODUCT MARKETING CONSULTANT examination; no focal motor deficit. Results Result Diagram: 03/19/17 0600 03/19/17 0600 Results 24 hrs Laboratory Tests Test 03/21/17 01:58 Lactic Acid Level 0.9 Medications Medications Current Medications Pantoprazole (Protonix Iv) 40 mg DAILY@06 IV Last administered on 03/21/17 05: 58; Admin Dose 40 MG; Start 02/01/17 at 06:00 Acetaminophen/ Hydrocodone Bitart ([place] (5/325)) 1 tab Q4H PRN PO PAIN LEVEL 4 -7 Last administered on 03/17/17 16:12; Admin Dose 1 TAB; Start 02/01/17 at 20: 30 Acetaminophen/ Hydrocodone Bitart ([place] (5/325)) 2 tab Q4H PRN PO PAIN LEVEL 7 -10 Last administered on 03/20/17 10:09; Admin Dose 2 TAB; Start 02/01/17 at 20: 30 Bisacodyl (Dulcolax Supp) 10 mg BID PRN [place] CONSTIPATION; Start 02/01/17 at 20: 30 Sodium Biphosphate/ Sodium Phosphate (Fleet Enema) 133 ml BID PRN [place] CONSTIPATION; Start 02/01/17 at 20:30 Acetaminophen (Tylenol Liquid) 650 mg Q4H PRN GTB PAIN AND OR ELEVATED TEMP Last administered on 03/21/17 09:15; Admin Dose 650 MG; Start 02/05/17 at 18:30 IV Flush (NS 10 ml) 10 ml PRN PRN IV IV PROTOCOL; Start 02/07/17 at 14:30 Diphenhydramine HCl 25 mg 25 mg Q6H PRN IV itching Last administered on 00:00; Admin Dose 25 MG; Start 02/07/17 at 20:00 Ondansetron HCl/ Sodium Chloride (Zofran Inj/NS) 54 ml @ 216 mls/hr Q6H PRN IV NAUSEA AND/OR VOMITING; Start 02/09/17 at 11:30 Trimethobenzamide HCl (Tigan) 200 mg Q6H PRN IM NAUSEA AND/OR VOMITING; Start 02/10/17 at 19:30 Morphine Sulfate (morphine) 2 mg Q4H PRN IV pain Last administered on 03/21/17 01:04; Admin Dose 2 MG; Start 02/20/17 at 18:30 Docusate Sodium 100 mg 100 mg QHS PRN NGT For Constipation; Start 02/25/17 at 21:00 Acetaminophen (Ofirmev 1000mg/ 100ml Iv) 100 ml @ 50 mls/hr Q6H PRN IVPB fever Last administered on 03/06/17 20:44; Admin Dose 50 MLS/HR; Start at 07:30 Enoxaparin Sodium (Lovenox) 40 mg DAILY SC Last administered on 03/21/17 09:21 ; Admin Dose 40 MG; Start 03/03/17 at 09:00 Thiamine HCl (Vitamin B1) 100 mg AM PO Last administered on 03/21/17 09:15; Admin Dose 100 MG; Start 03/12/17 at 09:00; Stop 03/26/17 at 10:00 Zinc Sulfate (Zinc Sulfate) 220 mg DAILY PO Last administered on 03/21/17 09:15 ; Admin Dose 220 MG; Start 03/12/17 at 09:00; Stop 03/26/17 at 10:00 Lorazepam (Ativan) 0.5 mg Q6H PRN IV ANXIETY Last administered on 03/20/17 16: 57; Admin Dose 0.5 MG; Start 03/12/17 at 12:30 Furosemide (Lasix) 20 mg DAILY PEG Last administered on 03/20/17 10:17; Admin Dose 20 MG; Start 03/17/17 at 09:00 Metoclopramide HCl (Reglan) 5 mg TID PO Last administered on 03/21/17 09:15; Admin Dose 5 MG; Start 03/18/17 at 21:00 Polyethylene Glycol 17 gm 17 gm Q72H PRN GTB CONSTIPATION Last administered on 03/19/17 03:15; Admin Dose 17 GM; Start 03/18/17 at 17:00 Piperacillin Sod/ Tazobactam Sod (Zosyn 3.375gm/ 100 ml (Pmx)) 100 ml @ 200 mls /hr Q6 IVPB Last administered on 03/21/17 12:38; Admin Dose 200 MLS/HR; Start 03/20/17 at 15:30 RICHAR ADRIAN 4, 2017 14:11
--- NOTE | 2017-03-21 14:32 | CONS ---
Date/Time of Note Date/Time of Note DATE: 03/21/17 TIME: 14:31 Assessment/Plan Assessment/Plan Additional Assessment/Plan Perforated colon status post surgery Severe sepsis Respiratory failure-status post tracheostomy Low normal ejection fraction 50% Acute decompensated diastolic congestive heart failure-improved Crohn's disease Acute blood loss anemia -Continue maintenance diuretics as blood pressure and renal function permits. Maintain potassium above 4.0 and magnesium above 2.0. Consultation Date/Type/Reason Admit Date/Time Feb 01, 2017 at 03:10 Initial Consult Date 02/02/17 Type of Consultation: cv Referring Provider: VINCE PADGETT 24 HR Interval Summary Free Text/Dictation Patient remains on trach collar. Denies shortness of breath or chest pain Exam/Review of Systems Vital Signs Vitals Vital Signs Date Time Temp Pulse Resp B/P Pulse Ox O2 Delivery O2 Flow Rate FiO2 03/21/17 13:48 88 20 97 28 03/21/17 10:57 98.8 108/70 03/21/17 05:28 5.0 Intake and Output 03/20/17 03/20/17 03/21/17 15:00 23:00 07:00 Intake Total 900 ml 700 ml Output Total 700 ml 450 ml Balance 200 ml 250 ml Exam Following commands, no apparent distress Constitutional: alert Head: normocephalic Neck: other (Tracheostomy) Respiratory: other (Coarse breath sounds bilaterally, no wheezing) Cardiovascular: other (S1-S2 heard), regular rate and rhythm Gastrointestinal: bowel sounds, non-tender, soft Extremities: other (No edema) Results Result Diagram: 03/19/17 0600 03/19/17 0600 Results 24 hrs Laboratory Tests Test 03/21/17 01:58 Lactic Acid Level 0.9 Medications Medications Current Medications Pantoprazole (Protonix Iv) 40 mg DAILY@06 IV Last administered on 03/21/17 05: 58; Admin Dose 40 MG; Start 02/01/17 at 06:00 Acetaminophen/ Hydrocodone Bitart ([place] (5/325)) 1 tab Q4H PRN PO PAIN LEVEL 4 -7 Last administered on 03/17/17 16:12; Admin Dose 1 TAB; Start 02/01/17 at 20: 30 Acetaminophen/ Hydrocodone Bitart ([place] (5/325)) 2 tab Q4H PRN PO PAIN LEVEL 7 -10 Last administered on 03/20/17 10:09; Admin Dose 2 TAB; Start 02/01/17 at 20: 30 Bisacodyl (Dulcolax Supp) 10 mg BID PRN [place] CONSTIPATION; Start 02/01/17 at 20: 30 Sodium Biphosphate/ Sodium Phosphate (Fleet Enema) 133 ml BID PRN [place] CONSTIPATION; Start 02/01/17 at 20:30 Acetaminophen (Tylenol Liquid) 650 mg Q4H PRN GTB PAIN AND OR ELEVATED TEMP Last administered on 03/21/17 09:15; Admin Dose 650 MG; Start 02/05/17 at 18:30 IV Flush (NS 10 ml) 10 ml PRN PRN IV IV PROTOCOL; Start 02/07/17 at 14:30 Diphenhydramine HCl 25 mg 25 mg Q6H PRN IV itching Last administered on 00:00; Admin Dose 25 MG; Start 02/07/17 at 20:00 Ondansetron HCl/ Sodium Chloride (Zofran Inj/NS) 54 ml @ 216 mls/hr Q6H PRN IV NAUSEA AND/OR VOMITING; Start 02/09/17 at 11:30 Trimethobenzamide HCl (Tigan) 200 mg Q6H PRN IM NAUSEA AND/OR VOMITING; Start 02/10/17 at 19:30 Morphine Sulfate (morphine) 2 mg Q4H PRN IV pain Last administered on 03/21/17 01:04; Admin Dose 2 MG; Start 02/20/17 at 18:30 Docusate Sodium 100 mg 100 mg QHS PRN NGT For Constipation; Start 02/25/17 at 21:00 Acetaminophen (Ofirmev 1000mg/ 100ml Iv) 100 ml @ 50 mls/hr Q6H PRN IVPB fever Last administered on 03/06/17 20:44; Admin Dose 50 MLS/HR; Start at 07:30 Enoxaparin Sodium (Lovenox) 40 mg DAILY SC Last administered on 03/21/17 09:21 ; Admin Dose 40 MG; Start 03/03/17 at 09:00 Thiamine HCl (Vitamin B1) 100 mg AM PO Last administered on 03/21/17 09:15; Admin Dose 100 MG; Start 03/12/17 at 09:00; Stop 03/26/17 at 10:00 Zinc Sulfate (Zinc Sulfate) 220 mg DAILY PO Last administered on 03/21/17 09:15 ; Admin Dose 220 MG; Start 03/12/17 at 09:00; Stop 03/26/17 at 10:00 Lorazepam (Ativan) 0.5 mg Q6H PRN IV ANXIETY Last administered on 03/20/17 16: 57; Admin Dose 0.5 MG; Start 03/12/17 at 12:30 Furosemide (Lasix) 20 mg DAILY PEG Last administered on 03/20/17 10:17; Admin Dose 20 MG; Start 03/17/17 at 09:00 Metoclopramide HCl (Reglan) 5 mg TID PO Last administered on 03/21/17 14:19; Admin Dose 5 MG; Start 03/18/17 at 21:00 Polyethylene Glycol 17 gm 17 gm Q72H PRN GTB CONSTIPATION Last administered on 03/19/17 03:15; Admin Dose 17 GM; Start 03/18/17 at 17:00 Piperacillin Sod/ Tazobactam Sod (Zosyn 3.375gm/ 100 ml (Pmx)) 100 ml @ 200 mls /hr Q6 IVPB Last administered on 03/21/17 12:38; Admin Dose 200 MLS/HR; Start 03/20/17 at 15:30 Keith Gandhi DO Mar 21, 2017 14:32
--- NOTE | 2017-03-21 14:45 | CONS ---
Date/Time of Note Date/Time of Note DATE: 03/21/17 TIME: 14:44 Assessment/Plan Assessment/Plan Chief Complaint/Hosp Course SUBJECTIVE: Patient is alert, comfortable on T-piece. No fevers. INDWELLINGS: Trach, PEG, Zeng, PICC line. DIAGNOSTICS: CT of the abdomen and pelvis resolved. Left lower quadrant fluid collection and gastric fluid collection. Several right-sided fluid collections remain apparently slightly diminished in size. Development of right lower lobe peribronchial consolidation with an area of focal airway occlusion. Loculated left pleural effusion, stable. Gallbladder thickening with cholelithiasis. PHYSICAL EXAMINATION: GENERAL: This is a well-developed, wasted, middle-aged white man who is alert, in no distress. HEENT: Head atraumatic, normocephalic. Sclerae anicteric. Buccal mucosa dry. NECK: Supple. Tracheostomy present. CHEST: Rise symmetrical. Breath sounds diminished to bases. HEART: S1, S2. ABDOMEN: Soft. Bowel tones present. EXTREMITIES: Without cyanosis or edema. ASSESSMENT: 1. Systemic inflammatory response syndrome with low grade fevers and leukocytosis. 2. Possible early pneumonia as per CT of the abdomen and pelvis. 3. Status post perforated bowel repair. 4. History of ETOH abuse. 5. Crohn's disease. PLAN: The patient remains stable, on Zosyn #2. Will f/u labs in am, repeat blood cultures if he spikes fever of 101 or above. Follow pulmonary surgical recommendations. DW staff Problems: Consultation Date/Type/Reason Admit Date/Time Feb 01, 2017 at 03:10 Initial Consult Date 02/02/17 Type of Consultation: ID Referring Provider: VINCE PADGETT Exam/Review of Systems Vital Signs Vitals Vital Signs Date Time Temp Pulse Resp B/P Pulse Ox O2 Delivery O2 Flow Rate FiO2 03/21/17 14:39 97 5.0 28 03/21/17 13:48 88 20 03/21/17 10:57 98.8 108/70 Intake and Output 03/20/17 03/20/17 03/21/17 15:00 23:00 07:00 Intake Total 900 ml 700 ml Output Total 700 ml 450 ml Balance 200 ml 250 ml Results Result Diagram: 03/19/17 0600 03/19/17 0600 Results 24 hrs Laboratory Tests Test 03/21/17 01:58 Lactic Acid Level 0.9 Medications Medications Current Medications Pantoprazole (Protonix Iv) 40 mg DAILY@06 IV Last administered on 03/21/17 05: 58; Admin Dose 40 MG; Start 02/01/17 at 06:00 Acetaminophen/ Hydrocodone Bitart ([place] (5/325)) 1 tab Q4H PRN PO PAIN LEVEL 4 -7 Last administered on 03/17/17 16:12; Admin Dose 1 TAB; Start 02/01/17 at 20: 30 Acetaminophen/ Hydrocodone Bitart ([place] (5/325)) 2 tab Q4H PRN PO PAIN LEVEL 7 -10 Last administered on 03/20/17 10:09; Admin Dose 2 TAB; Start 02/01/17 at 20: 30 Bisacodyl (Dulcolax Supp) 10 mg BID PRN [place] CONSTIPATION; Start 02/01/17 at 20: 30 Sodium Biphosphate/ Sodium Phosphate (Fleet Enema) 133 ml BID PRN MD CONSTIPATION; Start 02/01/17 at 20:30 Acetaminophen (Tylenol Liquid) 650 mg Q4H PRN GTB PAIN AND OR ELEVATED TEMP Last administered on 03/21/17 09:15; Admin Dose 650 MG; Start 02/05/17 at 18:30 IV Flush (NS 10 ml) 10 ml PRN PRN IV IV PROTOCOL; Start 02/07/17 at 14:30 Diphenhydramine HCl 25 mg 25 mg Q6H PRN IV itching Last administered on 00:00; Admin Dose 25 MG; Start 02/07/17 at 20:00 Ondansetron HCl/ Sodium Chloride (Zofran Inj/NS) 54 ml @ 216 mls/hr Q6H PRN IV NAUSEA AND/OR VOMITING; Start 02/09/17 at 11:30 Trimethobenzamide HCl (Tigan) 200 mg Q6H PRN IM NAUSEA AND/OR VOMITING; Start 02/10/17 at 19:30 Morphine Sulfate (morphine) 2 mg Q4H PRN IV pain Last administered on 03/21/17 01:04; Admin Dose 2 MG; Start 02/20/17 at 18:30 Docusate Sodium 100 mg 100 mg QHS PRN NGT For Constipation; Start 02/25/17 at 21:00 Acetaminophen (Ofirmev 1000mg/ 100ml Iv) 100 ml @ 50 mls/hr Q6H PRN IVPB fever Last administered on 03/06/17 20:44; Admin Dose 50 MLS/HR; Start at 07:30 Enoxaparin Sodium (Lovenox) 40 mg DAILY SC Last administered on 03/21/17 09:21 ; Admin Dose 40 MG; Start 03/03/17 at 09:00 Thiamine HCl (Vitamin B1) 100 mg AM PO Last administered on 03/21/17 09:15; Admin Dose 100 MG; Start 03/12/17 at 09:00; Stop 03/26/17 at 10:00 Zinc Sulfate (Zinc Sulfate) 220 mg DAILY PO Last administered on 03/21/17 09:15 ; Admin Dose 220 MG; Start 03/12/17 at 09:00; Stop 03/26/17 at 10:00 Lorazepam (Ativan) 0.5 mg Q6H PRN IV ANXIETY Last administered on 03/20/17 16: 57; Admin Dose 0.5 MG; Start 03/12/17 at 12:30 Furosemide (Lasix) 20 mg DAILY PEG Last administered on 03/20/17 10:17; Admin Dose 20 MG; Start 03/17/17 at 09:00 Metoclopramide HCl (Reglan) 5 mg TID PO Last administered on 03/21/17 14:19; Admin Dose 5 MG; Start 03/18/17 at 21:00 Polyethylene Glycol 17 gm 17 gm Q72H PRN GTB CONSTIPATION Last administered on 03/19/17 03:15; Admin Dose 17 GM; Start 03/18/17 at 17:00 Piperacillin Sod/ Tazobactam Sod (Zosyn 3.375gm/ 100 ml (Pmx)) 100 ml @ 200 mls /hr Q6 IVPB Last administered on 03/21/17 12:38; Admin Dose 200 MLS/HR; Start 03/20/17 at 15:30 THOMAS ELLIS NP Mar 21, 2017 14:45
--- NOTE | 2017-03-21 15:11 | PN ---
Date/Time of Note Date/Time of Note DATE: 03/21/17 TIME: 15:11 Assessment/Plan Lines/Catheters IV Catheter Type (from Nrsg): Saline Lock Zeng in Place (from Nrsg): Yes Assessment/Plan Chief Complaint/Hosp Course SP tracheostomy will continue vent support pulm toilet Trach care DC sutures Problems: Subjective 24 Hr Interval Summary Constitutional: improved Pain Control: mild Exam/Review of Systems Vital Signs Vitals Vital Signs Date Time Temp Pulse Resp B/P Pulse Ox O2 Delivery O2 Flow Rate FiO2 03/21/17 14:39 97 5.0 28 03/21/17 13:48 88 20 03/21/17 10:57 98.8 108/70 Intake and Output 03/20/17 03/20/17 03/21/17 15:00 23:00 07:00 Intake Total 900 ml 700 ml Output Total 700 ml 450 ml Balance 200 ml 250 ml Exam ENMT: mucosa pink and moist, nl external ears & nose, nl lips & teeth, nl nasal mucosa & septum Neck: non-tender, supple Respiratory: clear to auscultation, normal air movement Cardiovascular: nl pulses, regular rate and rhythm Results Result Diagram: 03/19/17 0600 03/19/17 0600 MALEROMAN LAMA MD Mar 21, 2017 15:11
--- NOTE | 2017-03-21 15:39 | DS ---
Date/Time of Note Date/Time of Note DATE: 03/21/17 TIME: 15:36 Discharge Summary Admission/Discharge Info Admit Date/Time Feb 01, 2017 at 03:10 Discharge Date/Time March 21, 2017 Final Diagnosis 1. Perforated sigmoid colon 2/2 Severe Crohn's colitis * S/p Urgent Open Cronin's procedure with end colostomy, liver biopsy and abdominal lavage 02/01/17 * S/p post operative paracolic abscess drained via CT 02/14/[address] * S/p Exploration of abdomen through recent laparotomy site with closure of fascia done 02/15/17 for Fascia dehiscence * PEG placed 03/11/17 days ago - continue PEG feeds. 2. Recurrent Resp failure: Extubated then reintubated 02/13, extubated, then reintubated 02/25/17, then extubated 02/27 and reintubated 03/04 * Status post bronchoscopy with clearance of extensive secretions in the left mainstem bronchus with improved aeration radiographically 02/25 * Pulm concerned about possible neuro muscular injury contributing to recurrent resp failure - s/p trach placement , patient is now on T piece 3. S/p Exacerbation of Crohn's disease with acute colitis and diarrhea: See # 1 Cultures earlier were growing ecoli / proteus / enterococcus /patient is now off antibiotic 4. s/p Multifocal PNA + Mook Pleural effusions - Effusions likely hydrostatic from hypoalbuminemia. + fevers 5. s/p Severe Sepsis with lactic acidosis 2/2 severe colitis / PNA 6. S/p Systemic shock (hypovolemic +septic) - again, see # 5, abx: Resolved 7. Status post TPN therapy for low prealbumin: At this time patient is on PEG tube feeding 8. Hx of heavy alcohol and tobacco use just until admission - monitor 9. Probable underlying COPD and Cirrhosis based on hx which explains hypoalbuminemia and anasarca - monitor 10. Severe recurrent anemia likely 2/2 occult blood loss from multiple sources : PRN transfusions 11. Hypomagnesemia - replete as needed 12. Encephalopathy / Confusion, resolved, patient may have suffered some anoxic brain insult during the course of his hospitalization.: Patient is quite oriented at this time . Patient Condition: Stable Hospital Course This is a 46-year-old male with chronic Crohn's disease who had presented to us with a two-week history of severe profuse diarrhea. he also came in with severe abdominal pain. He was found on imaging to have a severe colitis with associated perforation. He was then taken to the operating room where he had an urgent open Deena's procedure with end colostomy liver biopsy and abdominal lavage February 01, 2017. On February 14, [address] showed that he had developed a paracolic abscess and this was drained via CT guidance. He had to go back to the operating room February 15, 2017 for excision of the abdomen through the recent laparotomy site with closure of fascia done for fascia dehiscence. He after that had a wound VAC placed and he has done very well since. His hospitalization course was however complicated by recurrent respiratory failure the patient was initially intubated when he first came in because of severe sepsis he got extubated but then got reintubated 3 more times. With the last intubation the patient got a tracheostomy and has been slowly weaned off the ventilator and now is on T piece to trach and is doing well on this regimen. The goal is for a slow weaning to room air and hopefully at the end trach closure. This will be done over at the [facility] facility. He also underwent bronchoscopy at one time with clearance of extensive secretions February 25, 2017 during the course of 1 of his intubations. It was thought that there was a possible neuromuscular injury contributing to his recurrent respiratory failure, but he has done very well so far with a tracheostomy. Also he got a PEG tube placed March 11, 2017 for tube feedings as he is currently trach to T piece. Other conditions that complicated his hospitalization where multifocal pneumonia with bilateral pleural effusions, systemic shock with requiring pressor support, recurrent anemia requiring recurrent blood transfusions as well as encephalopathy and confusion which has currently resolved. At this time he is doing very well. He is status post aggressive antibiotic therapy based on his cultures and sensitivities. He has been cleared for transfer to [facility] facility by all consultants. His physical examination today's is below PHYSICAL EXAMINATION: GENERAL: This is a well-developed, wasted, middle-aged white man who is alert, in no distress. HEENT: Head atraumatic, normocephalic. Sclerae anicteric. Buccal mucosa dry. NECK: Supple. Tracheostomy present. CHEST: Rise symmetrical. Breath sounds diminished to bases. HEART: S1, S2. ABDOMEN: Soft. Bowel tones present. EXTREMITIES: Without cyanosis or edema. . Home Meds Unable to Obtain Active Prescriptions or Reported Meds Follow-up Plan Plan to be closely followed by primary care physician at [facility] facility, speech as well as physical therapy as well as occupational therapy. . Primary Care Provider Not On Staff Doctor Time spent on discharge: > 30 minutes Pending Labs Laboratory Tests Test 03/21/17 01:58 Lactic Acid Level 0.9mmol/L (0.5-2.2) VINCE PADGETT Mar 21, 2017 15:38
[2017-03-22] VITALS (8 sets, daily range): BP systolic 108–113; BP diastolic 57–70; PULSE 92–100; RESP 18–19
[2017-03-22] MEDS: LORAZEPAM 2 MG INJ IV PRN (00:41)
[2017-03-22] MEDS: PANTOPRAZOLE 40 MG INJ IV SCH (06:24)
[2017-03-22] MEDS: PIPER-TAZO 3.375 GM IV (PMX) 100 ML IVPB SCH ×2 (06:25→12:00)
[2017-03-22 07:08] LABS: ADD SCAN DIFF NO
[2017-03-22 07:27] LABS: BASOPHIL # 0.1 10^3/ul (0.0-0.1); BASOPHILS % 0.3 % (0.0-2.0); EOSINOPHILS # 0.6 10^3/ul (0.0-0.5); EOSINOPHILS % 3.8 % (0.0-7.0); HEMATOCRIT 26.2 % (42.0-52.0); HEMOGLOBIN 8.1 g/dl (14.0-18.0); LYMPHOCYTES % 6.3 % (15.0-51.0); MEAN CORPUSCULAR HEMOGLOBIN 26.4 pg (29.0-33.0); MEAN CORPUSCULAR HGB CONC 30.9 g/dl (32.0-37.0); MEAN CORPUSCULAR VOLUME 85.3 fl (82.0-101.0); MEAN PLATELET VOLUME 12.3 fl (7.4-10.4); MONOCYTE # 1.2 10^3/ul (0.3-0.9); MONOCYTES % 7.7 % (0.0-11.0); NEUTROPHIL # 13.2 10^3/ul (1.6-7.5); NEUTROPHILS % 81.3 % (39.0-77.0); PLATELET COUNT 543 10^3/UL (140-415); RED BLOOD COUNT 3.07 10^6/ul (4.70-6.10); RED CELL DISTRIBUTION WIDTH 15.7 % (11.5-14.5); WHITE BLOOD COUNT 16.2 10^3/ul (4.8-10.8)
[2017-03-22 07:56] LABS: CALCIUM 9.9 mg/dl (8.4-10.2); CREATININE 0.47 mg/dl (0.61-1.24); MAGNESIUM 1.5 mg/dl (1.7-2.5); POTASSIUM 4.6 mmol/L (3.5-5.1)
[2017-03-22] MEDS: ALBUTEROL 18 GM INHALER INH SCH (08:00)
[2017-03-22] MEDS: IPRATROPIUM (HFA) 12.9 GM INHALER INH SCH (08:00)
[2017-03-22] MEDS: ALBUTEROL/IPRATROPIUM (NEB) 3 ML AMP HHN PRN (08:14)
[2017-03-22] MEDS: FUROSEMIDE 20 MG TAB PEG SCH (09:08)
[2017-03-22] MEDS: THIAMINE 100 MG TAB PO SCH (09:08)
[2017-03-22] MEDS: ZINC SULFATE 220 MG CAP PO SCH (09:08)
[2017-03-22] MEDS: METOCLOPRAMIDE 5 MG TAB PO SCH (09:08)
[2017-03-22] MEDS: ENOXAPARIN 40 MG/0.4 ML SYG SC SCH (09:12)
--- NOTE | 2017-03-22 10:37 | PN ---
Date/Time of Note Date/Time of Note DATE: 03/22/17 TIME: 10:30 Assessment/Plan Lines/Catheters IV Catheter Type (from Nrsg): Saline Lock Zeng in Place (from Nrsg): Yes Assessment/Plan Assessment/Plan [facility] Progress Note Date of Service: 03/22/17 Today's Impression & Plan: Overall stable and continues to improve. Off the vent and breathing on his own; tolerating PEG tube feeds. Abd remains benign. Wound healing well. No indication for acute surgical intervention. Next steps are moving toward oral intake, weaning off the tube feeds and ability for him to speak with the trach. Full recovery will likely take another 12-24 months and requires intense rehabilitation. Family and patient aware and agree with the plans. With above assessment, I've recommended the following for today: 1. Cont PEG enteric feeds; please gear feeds for a goal of about 1800 to 2000 kCal per day; check pre-albumin and albumin to monitor 2. Cont pulmonary toilet 3. Social work and case management to please continue working on middle or intermediate school principal subacute care hospital placement 4. Ok to d/c wound vac (incision almost completely healed and small compared to a few weeks ago 5. Very important for the rehab to include adequate attention to the trach and physical activity; with good rehab, patient has a good chance of full recovery 6. Colostomy takedown in 3-6 months after significant nutritional and physical recovery (will benefit from colon and rectal surgery involvement given his clinical picture) Thank you again for your great care of this very pleasant patient and wonderful family. If there are any questions, please feel free to call me at [phone]. TOTAL VISIT TIME: 20 minutes of which more than half was spent in [id number] discussion with the patient, possibly including family, as well as coordination of care between multiple physicians and providers. Disclaimer: Inadvertent spelling or grammatical errors are likely due to EHR/ dictation software use and do not reflect on the overall quality of patient care. Updated Clinical Summary: A very pleasant 46-year-old gentleman with history of Crohn's disease as well as prior surgery for anal fistula approximately 5 years ago, and a torn meniscus repair on the left knee, presenting with abdominal pain associated with a few weeks' duration of diarrhea. S/p an otherwise uncomplicated diagnostic laparoscopy was converted first to hand assist and then to open exploration when perforated sigmoid colon was found and it was resected with a Deena type procedure and end colostomy as well as core needle liver biopsy, segment 5, due to presence of fatty liver disease, lysis of adhesions, and abdominal lavage on 02/01/17. Failed to wean off the vent through 02/06/17. PE was evaluated 02/07/[address] angio and no evidence found. CT abd/pelvis also did not show actionable findings (no abscess; bowel thickening somewhat expected). Extubated 02/07/17. MANAGER PERSONNEL SELECTION called early am 02/13/17 with a few minutes coding, requiring intubation and transfer to ICU. Fortunately, mentally appears to be intact and not on pressors. Lactic acid and CO2 normal with benign appearing abd and viable ostomy. Complicated by fascia dehiscence. S/p exploration of abdomen through recent laparotomy, primary closure of fascia and abdominal lavage on 02/15/17. Reintubated 02/25/17 for bronchoscopy to remove mucus plug. Extubated 02/28/17. Re-intubated 03/05/17 due to respiratory failure and hypoxia. 03/05/17: HIV negative and hepatitis B&C neg. Brain MRI did not contribute to the diagnosis, but no mass effect, obvious hemorrhage or other explanatory findings. S/p trach and PEG 03/09/17. Weaned off the vent by 03/22/17. COMORBIDITIES: 1. Crohn disease with perforation of sigmoid colon and sepsis. S/p an otherwise uncomplicated diagnostic laparoscopy was converted first to hand assist and then to open exploration when perforated sigmoid colon was found and it was resected with a Deena type procedure and end colostomy as well as core needle liver biopsy, segment 5, due to presence of fatty liver disease, lysis of adhesions, and abdominal lavage on 02/01/17. Complicated by respiratory failure, return trip to ICU and fascia dehiscence. S/p exploration of abdomen through recent laparotomy, primary closure of fascia and abdominal lavage on 02/15. 2. Repair of a fistula approximately 5 years ago. 3. Torn meniscus on the left knee status post repair. 4. S/p trach and PEG 03/09/17 at [facility]. Subjective: No major events or complications; breathing off the vent; seems interactive; does not report any major abdominal pain, SOB, CP or nausea Objective: Vitals: See below Exam: GENERAL: On exam, the patient was laying in bed and appeared to be comfortable and in no acute distress. Breathing with trach dome O2. Eyes open and responds to voice. ABDOMEN: Soft, nontender and nondistended. Incision wound vac dressings clean without any evidence of obvious erythema, edema, discharge, or hernia. Wound vac with no sig drainage. Surgery drain site clean. Ostomy pink and viable; some air and stool in the bag. There are no peritoneal signs or guarding. PEG in place and tube feeing ongoing. SKIN: Skin appears to be pink and feels warm to touch. NEUROLOGIC: Patient's eyes open and responds to voice. and follows simple commands appropriately. Exam/Review of Systems Vital Signs Vitals Vital Signs Date Time Temp Pulse Resp B/P Pulse Ox O2 Delivery O2 Flow Rate FiO2 03/22/17 08:54 95 03/22/17 08:23 98.3 19 108/70 98 03/22/17 07:36 5.0 28 03/22/17 07:36 Aerosol T Tube Intake and Output 03/21/17 03/21/17 03/22/17 15:00 23:00 07:00 Intake Total 100 ml 800 ml 950 ml Output Total 600 ml 510 ml Balance 100 ml 200 ml 440 ml Results Result Diagram: 03/22/17 0546 03/22/17 0546 TI HILTON M.D. Mar 22, 2017 10:37
--- NOTE | 2017-03-22 12:50 | CONS ---
Date/Time of Note Date/Time of Note DATE: 03/22/17 TIME: 12:48 Consult Date/Type/Reason Admit Date/Time Feb 01, 2017 at 03:10 Type of Consultation: Pulmonary Ordering Provider: VINCE PADGETT Subjective Patient comfortable no new events. Objective Vital Signs Date Time Temp Pulse Resp B/P Pulse Ox O2 Delivery O2 Flow Rate FiO2 03/22/17 12:44 92 03/22/17 11:51 98.1 18 110/69 98 03/22/17 07:36 5.0 28 03/22/17 07:36 Aerosol T Tube Intake and Output 03/21/17 03/21/17 03/22/17 14:59 22:59 06:59 Intake Total 100 ml 800 ml 950 ml Output Total 600 ml 510 ml Balance 100 ml 200 ml 440 ml Exam PHYSICAL EXAMINATION GENERAL: Chronically ill appearing gentleman comfortable at rest VITAL SIGNS: see below. HEENT: Pupils equal, round, and reactive to light. Tracheostomy site clean and intact. CARDIAC: S1, S2, 1/6 systolic ejection murmur CHEST: Diminished air entry bilaterally. ABDOMEN: Mildly distended. Bowel sounds present no guarding or rebound EXTREMITIES: No cyanosis, clubbing edema +1 NEUROLOGIC: Generalized weakness Results/Medications Result Diagram: 03/22/17 0546 03/22/17 0546 Results 24 hrs Laboratory Tests Test 03/22/17 05:46 White Blood Count 16.2 H Red Blood Count 3.07 L Hemoglobin 8.1 L Hematocrit 26.2 L Mean Corpuscular Volume 85.3 Mean Corpuscular Hemoglobin 26.4 L Mean Corpuscular Hemoglobin Concent 30.9 L Red Cell Distribution Width 15.7 H Platelet Count 543 H Mean Platelet Volume 12.3 H Neutrophils % 81.3 H Lymphocytes % 6.3 L Monocytes % 7.7 Eosinophils % 3.8 Basophils % 0.3 Nucleated Red Blood Cells % 0.0 Neutrophils # 13.2 H Lymphocytes # 1.0 Monocytes # 1.2 H Eosinophils # 0.6 H Basophils # 0.1 Nucleated Red Blood Cells # 0.0 Sodium Level 138 Potassium Level 4.6 Chloride Level 96 L Carbon Dioxide Level 29 Anion Gap 18 H Blood Urea Nitrogen 20 Creatinine 0.47 L Glucose Level 90 Calcium Level 9.9 Magnesium Level 1.5 L Medications Current Medications Pantoprazole (Protonix Iv) 40 mg DAILY@06 IV Last administered on 03/22/17 06: 24; Admin Dose 40 MG; Start 02/01/17 at 06:00 Acetaminophen/ Hydrocodone Bitart ([place] (5/325)) 1 tab Q4H PRN PO PAIN LEVEL 4 -7 Last administered on 03/17/17 16:12; Admin Dose 1 TAB; Start 02/01/17 at 20: 30 Acetaminophen/ Hydrocodone Bitart ([place] (5/325)) 2 tab Q4H PRN PO PAIN LEVEL 7 -10 Last administered on 03/20/17 10:09; Admin Dose 2 TAB; Start 02/01/17 at 20: 30 Bisacodyl (Dulcolax Supp) 10 mg BID PRN [place] CONSTIPATION; Start 02/01/17 at 20: 30 Sodium Biphosphate/ Sodium Phosphate (Fleet Enema) 133 ml BID PRN [place] CONSTIPATION; Start 02/01/17 at 20:30 Acetaminophen (Tylenol Liquid) 650 mg Q4H PRN GTB PAIN AND OR ELEVATED TEMP Last administered on 03/21/17 09:15; Admin Dose 650 MG; Start 02/05/17 at 18:30 IV Flush (NS 10 ml) 10 ml PRN PRN IV IV PROTOCOL; Start 02/07/17 at 14:30 Diphenhydramine HCl 25 mg 25 mg Q6H PRN IV itching Last administered on 00:00; Admin Dose 25 MG; Start 02/07/17 at 20:00 Ondansetron HCl/ Sodium Chloride (Zofran Inj/NS) 54 ml @ 216 mls/hr Q6H PRN IV NAUSEA AND/OR VOMITING; Start 02/09/17 at 11:30 Trimethobenzamide HCl (Tigan) 200 mg Q6H PRN IM NAUSEA AND/OR VOMITING; Start 02/10/17 at 19:30 Morphine Sulfate (morphine) 2 mg Q4H PRN IV pain Last administered on 03/21/17 01:04; Admin Dose 2 MG; Start 02/20/17 at 18:30 Docusate Sodium 100 mg 100 mg QHS PRN NGT For Constipation; Start 02/25/17 at 21:00 Acetaminophen (Ofirmev 1000mg/ 100ml Iv) 100 ml @ 50 mls/hr Q6H PRN IVPB fever Last administered on 03/06/17 20:44; Admin Dose 50 MLS/HR; Start at 07:30 Enoxaparin Sodium (Lovenox) 40 mg DAILY SC Last administered on 03/22/17 09:12 ; Admin Dose 40 MG; Start 03/03/17 at 09:00 Thiamine HCl (Vitamin B1) 100 mg AM PO Last administered on 03/22/17 09:08; Admin Dose 100 MG; Start 03/12/17 at 09:00; Stop 03/26/17 at 10:00 Zinc Sulfate (Zinc Sulfate) 220 mg DAILY PO Last administered on 03/22/17 09:08 ; Admin Dose 220 MG; Start 03/12/17 at 09:00; Stop 03/26/17 at 10:00 Lorazepam (Ativan) 0.5 mg Q6H PRN IV ANXIETY Last administered on 03/22/17 00: 41; Admin Dose 0.5 MG; Start 03/12/17 at 12:30 Furosemide (Lasix) 20 mg DAILY PEG Last administered on 03/22/17 09:08; Admin Dose 20 MG; Start 03/17/17 at 09:00 Metoclopramide HCl (Reglan) 5 mg TID PO Last administered on 03/22/17 09:08; Admin Dose 5 MG; Start 03/18/17 at 21:00 Polyethylene Glycol 17 gm 17 gm Q72H PRN GTB CONSTIPATION Last administered on 03/19/17 03:15; Admin Dose 17 GM; Start 03/18/17 at 17:00 Piperacillin Sod/ Tazobactam Sod (Zosyn 3.375gm/ 100 ml (Pmx)) 100 ml @ 200 mls /hr Q6 IVPB Last administered on 03/22/17 06:25; Admin Dose 200 MLS/HR; Start 03/20/17 at 15:30 Assessment/Plan Chief Complaint/Hosp Course Assessment 1. Crohn's disease with perforation of sigmoid colon and sepsis status post arthroscopic sigmoid colectomy and end colostomy with lysis of adhesions 2. Resolved metabolic acidosis with septic shock 3. Encephalopathy toxic metabolic resolving 4. Hypoxemic respiratory failure now with tracheostomy in place 5. Thrombocytopenia resolved, likely underlying pneumonia 6. Anemia as above 7. Likely critical illness myopathy 8. Persistent leukocytosis Plan 1. Continue mechanical ventilation, continue tracheostomy care 2. Bronchodilators as needed 3. Continue surgical wound care discussed with , 4. Continue broad-spectrum antibiotic coverage, ID recommendations noted. 5. DVT GI prophylaxis Disposition Discharge planning okay from pulmonary standpoint Problems: RAMON DOUGLAS MD, [facility] Mar 22, 2017 12:50
--- NOTE | 2017-03-22 14:56 | PN ---
DATE: 03/22/2017 INFECTIOUS DISEASE PROGRESS NOTE SUBJECTIVE: No acute events. No fevers. The patient is alert, up with physical therapy. LABORATORY DATA: WBC today 16.2, no bands. BUN 20, creatinine 0.47. INDWELLINGS: Trach, PEG, PICC line. ANTIMICROBIALS: Zosyn. PHYSICAL EXAMINATION: GENERAL: This is a well-developed, wasted, middle-aged white man who is alert, in no distress. HEENT: Head atraumatic, normocephalic. Sclerae anicteric. Buccal mucosa pink. NECK: Supple. CHEST: Rise symmetrical. Breath sounds with scattered rhonchi. HEART: S1, S2. ABDOMEN: Soft. Bowel sounds present. ASSESSMENT: 1. Status post sepsis with shock. 2. Systemic inflammatory response syndrome with persistent leukocytosis, status post low-grade feve r, possible early pneumonia. 3. History of perforated bowel repair. 4. Crohn's disease. PLAN: The patient remains stable. Continue present care. Continue on antibiotics. Follow chest x -ray. Pending discharge planning. Dictated By: THOMAS ELLIS [employer] REP for MICKY RAMÍREZ/YAN Conf#: [id number] DID#: [id number]
== END 2017-03-22 13:05 | DRG 3 ==
LOC: E/R 22:04 → ICU 02-01 03:10 → TEL 02-08 18:58 → ICU 02-13 05:33 → TEL 03-12 20:53
PROVIDERS: ADMIT Internal Medicine; ATTEND Internal Medicine
PROC: 0DTN0ZZ Resection of Sigmoid Colon, Open Approach (ICD-10-PCS; 2017-02-01)
PROC: 5A1955Z Respiratory Ventilation, Greater than 96 Consecutive Hours (ICD-10-PCS; 2017-02-01)
PROC: 0D1M0Z4 Bypass Descending Colon to Cutaneous, Open Approach (ICD-10-PCS; 2017-02-01)
PROC: 0DNN0ZZ Release Sigmoid Colon, Open Approach (ICD-10-PCS; 2017-02-01)
PROC: 0WJP4ZZ Inspection of Gastrointestinal Tract, Percutaneous Endoscopic Approach (ICD-10-PCS; 2017-02-01)
PROC: 0FB10ZX Excision of Right Lobe Liver, Open Approach, Diagnostic (ICD-10-PCS; 2017-02-01)
PROC: 02HV33Z Insertion of Infusion Device into Superior Vena Cava, Percutaneous Approach (ICD-10-PCS; principal; 2017-02-07)
PROC: 0W993ZX Drainage of Right Pleural Cavity, Percutaneous Approach, Diagnostic (ICD-10-PCS; 2017-02-12)
PROC: 0BH17EZ Insertion of Endotracheal Airway into Trachea, Via Natural or Artificial Opening (ICD-10-PCS; 2017-02-13)
PROC: 5A12012 Performance of Cardiac Output, Single, Manual (ICD-10-PCS; 2017-02-13)
PROC: 0W9B3ZZ Drainage of Left Pleural Cavity, Percutaneous Approach (ICD-10-PCS; 2017-02-13)
PROC: 5A1955Z Respiratory Ventilation, Greater than 96 Consecutive Hours (ICD-10-PCS; 2017-02-13)
PROC: 30243N1 Transfusion of Nonautologous Red Blood Cells into Central Vein, Percutaneous Approach (ICD-10-PCS; 2017-02-13)
PROC: 02HV33Z Insertion of Infusion Device into Superior Vena Cava, Percutaneous Approach (ICD-10-PCS; 2017-02-14)
PROC: 0W9G3ZX Drainage of Peritoneal Cavity, Percutaneous Approach, Diagnostic (ICD-10-PCS; 2017-02-14)
PROC: 0JQ80ZZ Repair Abdomen Subcutaneous Tissue and Fascia, Open Approach (ICD-10-PCS; 2017-02-15)
PROC: 0W9B3ZX Drainage of Left Pleural Cavity, Percutaneous Approach, Diagnostic (ICD-10-PCS; 2017-02-23)
PROC: 0B9H8ZX Drainage of Lung Lingula, Via Natural or Artificial Opening Endoscopic, Diagnostic (ICD-10-PCS; 2017-02-25)
PROC: 0BH17EZ Insertion of Endotracheal Airway into Trachea, Via Natural or Artificial Opening (ICD-10-PCS; 2017-02-25)
PROC: 5A1945Z Respiratory Ventilation, 24-96 Consecutive Hours (ICD-10-PCS; 2017-02-25)
PROC: 0W9B3ZX Drainage of Left Pleural Cavity, Percutaneous Approach, Diagnostic (ICD-10-PCS; 2017-02-26)
PROC: 02HV33Z Insertion of Infusion Device into Superior Vena Cava, Percutaneous Approach (ICD-10-PCS; 2017-03-01)
PROC: 0BH17EZ Insertion of Endotracheal Airway into Trachea, Via Natural or Artificial Opening (ICD-10-PCS; 2017-03-05)
PROC: 5A1955Z Respiratory Ventilation, Greater than 96 Consecutive Hours (ICD-10-PCS; 2017-03-05)
PROC: 0B110F4 Bypass Trachea to Cutaneous with Tracheostomy Device, Open Approach (ICD-10-PCS; 2017-03-09)
PROC: 0DH63UZ Insertion of Feeding Device into Stomach, Percutaneous Approach (ICD-10-PCS; 2017-03-10)
DX: A41.9 Sepsis, unspecified organism (principal); K63.1 Perforation of intestine (nontraumatic); K65.1 Peritoneal abscess; G93.1 Anoxic brain damage, not elsewhere classified; I50.33 Acute on chronic diastolic (congestive) heart failure; R65.21 Severe sepsis with septic shock; R57.1 Hypovolemic shock; J90 Pleural effusion, not elsewhere classified; J18.9 Pneumonia, unspecified organism; J96.01 Acute respiratory failure with hypoxia; I46.9 Cardiac arrest, cause unspecified; K50.90 Crohn's disease, unspecified, without complications; D62 Acute posthemorrhagic anemia; E87.1 Hypo-osmolality and hyponatremia; N17.9 Acute kidney failure, unspecified; K56.7 Ileus, unspecified; T81.32XA Disruption of internal operation (surgical) wound, not elsewhere classified, initial encounter; F10.239 Alcohol dependence with withdrawal, unspecified; J98.11 Atelectasis; T17.890A Other foreign object in other parts of respiratory tract causing asphyxiation, initial encounter; E46 Unspecified protein-calorie malnutrition; Z68.1 Body mass index [BMI] 19.9 or less, adult; R64 Cachexia; E87.6 Hypokalemia; E88.09 Other disorders of plasma-protein metabolism, not elsewhere classified; J44.9 Chronic obstructive pulmonary disease, unspecified; E83.51 Hypocalcemia; D69.6 Thrombocytopenia, unspecified; Y83.8 Other surgical procedures as the cause of abnormal reaction of the patient, or of later complication, without mention of misadventure at the time of the procedure; K70.0 Alcoholic fatty liver; K70.30 Alcoholic cirrhosis of liver without ascites; J32.0 Chronic maxillary sinusitis; H70.13 Chronic mastoiditis, bilateral; E83.42 Hypomagnesemia; X58.XXXA Exposure to other specified factors, initial encounter; Y92.238 Other place in hospital as the place of occurrence of the external cause
CPT/HCPCS: 31500; 32555; 36415; 36430; 36569; 36589; 36600; 70553; 71010; 71250; 71260; 71275; 74000; 74176; 74177; 74178; 76937; 76942; 77012; 80048; 80053; 80061; 80069; 80076; 80202; 80306; 81001; 81003; 82140; 82150; 82270; 82310; 82330; 82533; 82803; 82945; 82962; 83540; 83605; 83615; 83690; 83735; 83880; 83986; 84100; 84132; 84134; 84157; 84443; 84484; 85014; 85018; 85025; 85049; 85362; 85378; 85384; 85610; 85670; 85730; 86022; 86078; 86703; 86704; 86709; 86803; 86850; 86900; 86901; 86920; 87040; 87070; 87075; 87081; 87086; 87102; 87116; 87340; 88104; 88305; 88307; 88309; 88313; 89050; 89220; 92526; 92610; 92950; 93005; 93306; 93970; 94002; 94003; 94640; 94660; 94664; 94770; 96361; 96365; 96366; 96368; 96375; 96376; 97110; 97162; 97164; 97530; J1940; C1769; C9113; J0131; J0610; J0692; J1170; J1200; J1630; J1650; J1720; J1956; J2060; J2185; J2250; J2270; J2405; J2543; J2710; J2765; J2920; J2997; J3010; J3370; J3411; J3475; J3480; J7030; J7040; J7042; J7050; J7060; J7070; J7512; J7999; P9016; P9045; P9047; Q9967

== ENCOUNTER 2017-04-21 11:17 | Outpatient (CLI) | payer OTHER ==
[~2017-04-21] VITALS: Ht 188 cm; Wt 56.8 kg
[2017-04-21 11:15] VITALS: BP 115/77; PULSE 74; RESP 18; Ht 188 cm; Wt 56.8 kg
[2017-04-21] MEDS ORDERED: THIA100T10 G-TUBE (11:52)
[2017-04-21] MEDS ORDERED: POLY17PO6 G-TUBE (11:52)
[2017-04-21] MEDS ORDERED: MULT-761 G-TUBE (11:52)
[2017-04-21] MEDS ORDERED: ZINC220C5 G-TUBE (11:52)
[2017-04-21] MEDS ORDERED: METO5TAB58 G-TUBE (11:52)
[2017-04-21] MEDS ORDERED: FOLI-49 PO (11:52)
[2017-04-21] MEDS ORDERED: FERR300S G-TUBE (11:52)
[2017-04-21] MEDS ORDERED: CHLO118L3 ORAL (11:52)
[2017-04-21] MEDS ORDERED: FOLI-49 G-TUBE (11:52)
[2017-04-21] MEDS ORDERED: NA P230E RC (11:52)
[2017-04-21] MEDS ORDERED: DOCU-144 PO (11:52)
[2017-04-21] MEDS ORDERED: MAGN400O4 G-TUBE (11:52)
[2017-04-21] MEDS ORDERED: BISA10SU55 RC (11:52)
[2017-04-21] MEDS ORDERED: PANT40SU G-TUBE (11:52)
[2017-04-21] MEDS ORDERED: ALBU2.5V3 NEB (11:52)
[2017-04-21] MEDS ORDERED: HYDR-906 G-TUBE (11:52)
[2017-04-21] MEDS ORDERED: ENOX40DI14 SC (11:52)
[2017-04-21] MEDS ORDERED: ACET325T33 G-TUBE (11:52)
--- NOTE | 2017-04-21 13:24 | PN ---
Date/Time of Note Date/Time of Note DATE: 04/21/17 TIME: 13:04 Assessment/Plan Assessment/Plan Assessment/Plan [facility] Progress Note Date of Service: 04/21/17 Today's Impression & Plan: Overall stable and showing remarkable signs of improvement. Currently remains off the vent and breathing on his own and able to speak; off of PEG tube feeds and reportedly has been taking adequate p.o. intake. Abd remains benign. Wound healed well. Added 20 pounds since time of discharge. Overall, I am very pleased with the patient's progress so far. No indication for acute surgical intervention. Next steps are moving toward discontinuation of the trach as well as removal of the gastrostomy tube, which I foresee happening over the course of the next few weeks. Full recovery will likely take another 12-24 months and requires intense rehabilitation. Family and patient aware/updated and agree with the plans. I spent time along with the patient reviewing above and then had a separate meeting with the patient's mother and stepfather for another 20 minutes of updates and answering questions. With above assessment, I've recommended the following for today: 1. Cont current management 2. Consider discontinuation of the tracheostomy tube when okay by Dr. Gamboa 3. Will consider discontinuation of the PEG tube on the next clinic visit 4. Follow-up with us in 4-6 weeks 5. Very important to continue aggressive rehab 6. Colostomy takedown in 6-12 months after significant nutritional and physical recovery (will benefit from colon and rectal surgery involvement given his clinical picture) Thank you again for your great care of this very pleasant patient and wonderful family. If there are any questions, please feel free to call me at [phone]. Disclaimer: Inadvertent spelling or grammatical errors are likely due to EHR/ dictation software use and do not reflect on the overall quality of patient care. Updated Clinical Summary: A very pleasant 46-year-old gentleman with history of Crohn's disease as well as prior surgery for anal fistula approximately 5 years ago, and a torn meniscus repair on the left knee, presenting with abdominal pain associated with a few weeks' duration of diarrhea. S/p an otherwise uncomplicated diagnostic laparoscopy was converted first to hand assist and then to open exploration when perforated sigmoid colon was found and it was resected with a Deena type procedure and end colostomy as well as core needle liver biopsy, segment 5, due to presence of fatty liver disease, lysis of adhesions, and abdominal lavage on 02/01/17. Failed to wean off the vent through 02/06/17. PE was evaluated 02/07/[address] angio and no evidence found. CT abd/pelvis also did not show actionable findings (no abscess; bowel thickening somewhat expected). Extubated 02/07/17. TAILERCPA called early am 02/13/17 with a few minutes coding, requiring intubation and transfer to ICU. Fortunately, mentally appears to be intact and not on pressors. Lactic acid and CO2 normal with benign appearing abd and viable ostomy. Complicated by fascia dehiscence. S/p exploration of abdomen through recent laparotomy, primary closure of fascia and abdominal lavage on 02/15/17. Reintubated 02/25/17 for bronchoscopy to remove mucus plug. Extubated 02/28/17. Re-intubated 03/05/17 due to respiratory failure and hypoxia. 03/05/17: HIV negative and hepatitis B&C neg. Brain MRI did not contribute to the diagnosis, but no mass effect, obvious hemorrhage or other explanatory findings. S/p trach and PEG 03/09/17. Weaned off the vent by 03/22/17. DC to rehab on 03/22/17. COMORBIDITIES: 1. Crohn disease with perforation of sigmoid colon and sepsis. S/p an otherwise uncomplicated diagnostic laparoscopy was converted first to hand assist and then to open exploration when perforated sigmoid colon was found and it was resected with a Deena type procedure and end colostomy as well as core needle liver biopsy, segment 5, due to presence of fatty liver disease, lysis of adhesions, and abdominal lavage on 02/01/17. Complicated by respiratory failure, return trip to ICU and fascia dehiscence. S/p exploration of abdomen through recent laparotomy, primary closure of fascia and abdominal lavage on 02/15. 2. Repair of a fistula approximately 5 years ago. 3. Torn meniscus on the left knee status post repair. 4. S/p trach and PEG 03/09/17 at [facility]. Subjective: No major events or complications since leaving the hospital; has been off the ventilator for a number of weeks and is able to talk with a Shiley valve without any major reported difficulties. Has also been reportedly eating regular food without the use of PEG tubing. Does not report any major abdominal pain, SOB, CP or nausea. Has added approximately 20 pounds to lose weight. As expected, he has very little recollection of the events in the hospital. Objective: Vitals: See below Exam: GENERAL: On exam, the patient was laying in bed and appeared to be comfortable and in no acute distress. Breathing with trach dome O2. Eyes open and responds to voice. ABDOMEN: Soft, nontender and nondistended. Incision wound vac dressings no longer present and his incisions appear to have healed completely and are clean without any evidence of obvious erythema, edema, discharge, or hernia. Surgery drain site clean. Ostomy pink and viable; some air and stool in the bag. There are no peritoneal signs or guarding. PEG in place and tube insertion site clean. SKIN: Skin appears to be pink and feels warm to touch. NEUROLOGIC: Patient is awake, alert, and follows commands appropriately. Exam/Review of Systems Vital Signs Vitals Vital Signs Date Time Temp Pulse Resp B/P Pulse Ox O2 Delivery O2 Flow Rate FiO2 04/21/17 11:15 98.2 74 18 115/77 100 Trach Collar 2.0 TI HILTON M.D. Apr 21, 2017 13:24
== END 2017-04-21 16:14 | disposition home or self-care (01) ==
LOC: HPC 11:17
PROVIDERS: ATTEND Transplant Surgery
DX: K50.90 Crohn's disease, unspecified, without complications (principal); Z93.0 Tracheostomy status; Z93.3 Colostomy status
CPT/HCPCS: G0463

== ENCOUNTER 2017-05-26 09:35 | Outpatient (CLI) | payer OTHER ==
[~2017-05-26] VITALS: Ht 188 cm; Wt 57.7 kg
[~2017-05-26 09:35] MED LIST changes: +ACET325T33 G-TUBE; +ALBU2.5V3 NEB; +BISA10SU55 RC; +CHLO118L3 ORAL; +DOCU-144 PO; +ENOX40DI14 SC; +FERR300S G-TUBE; +FOLI-49 G-TUBE; +FOLI-49 PO; +HYDR-906 G-TUBE; +MAGN400O4 G-TUBE; +METO5TAB58 G-TUBE; +MULT-761 G-TUBE; +NA P230E RC; +PANT40SU G-TUBE; +POLY17PO6 G-TUBE; +THIA100T10 G-TUBE; +ZINC220C5 G-TUBE; -[UNRECOGNIZED DRUG - REMARK]
[2017-05-26 09:45] VITALS: BP 109/69; PULSE 67; RESP 18; Ht 188 cm; Wt 57.7 kg
--- NOTE | 2017-05-26 17:59 | PN ---
Date/Time of Note Date/Time of Note DATE: 05/26/17 TIME: 17:51 Assessment/Plan Assessment/Plan Assessment/Plan [facility] Progress Note Date of Service: 05/26/17 Today's Impression & Plan: Overall stable and continuing to show remarkable signs of improvement. Trach is out. PEG has not been used for a while now and the patient is able to eat. Will likely be able to discontinue PEG once his medications have been reviewed by primary care physician. Continues to gain weight slowly and slow increase in strength. Suspect another 6 months to a year before full recovery. That would be also the time when we will take the colostomy down with the help of colorectal surgery. Answered all questions. With above assessment, I've recommended the following for today: 1. Cont current management 2. Consider discontinuation of PEG tube 3. Follow-up with us in 4-6 weeks 4. Very important to continue aggressive rehab 5. Colostomy takedown in 6-12 months after significant nutritional and physical recovery (will benefit from colon and rectal surgery involvement given his clinical picture) Thank you again for your great care of this very pleasant patient and wonderful family. If there are any questions, please feel free to call me at [phone]. Disclaimer: Inadvertent spelling or grammatical errors are likely due to EHR/ dictation software use and do not reflect on the overall quality of patient care. Updated Clinical Summary: A very pleasant 46-year-old gentleman with history of Crohn's disease as well as prior surgery for anal fistula approximately 5 years ago, and a torn meniscus repair on the left knee, presenting with abdominal pain associated with a few weeks' duration of diarrhea. S/p an otherwise uncomplicated diagnostic laparoscopy was converted first to hand assist and then to open exploration when perforated sigmoid colon was found and it was resected with a Deena type procedure and end colostomy as well as core needle liver biopsy, segment 5, due to presence of fatty liver disease, lysis of adhesions, and abdominal lavage on 02/01/17. Failed to wean off the vent through 02/06/17. PE was evaluated 02/07/[address] angio and no evidence found. CT abd/pelvis also did not show actionable findings (no abscess; bowel thickening somewhat expected). Extubated 02/07/17. L[employer]ER called early am 02/13/17 with a few minutes coding, requiring intubation and transfer to ICU. Fortunately, mentally appears to be intact and not on pressors. Lactic acid and CO2 normal with benign appearing abd and viable ostomy. Complicated by fascia dehiscence. S/p exploration of abdomen through recent laparotomy, primary closure of fascia and abdominal lavage on 02/15/17. Reintubated 02/25/17 for bronchoscopy to remove mucus plug. Extubated 02/28/17. Re-intubated 03/05/17 due to respiratory failure and hypoxia. 03/05/17: HIV negative and hepatitis B&C neg. Brain MRI did not contribute to the diagnosis, but no mass effect, obvious hemorrhage or other explanatory findings. S/p trach and PEG 03/09/17. Weaned off the vent by 03/22/17. DC to rehab on 03/22/17. Trach out end of April 2017. COMORBIDITIES: 1. Crohn disease with perforation of sigmoid colon and sepsis. S/p an otherwise uncomplicated diagnostic laparoscopy was converted first to hand assist and then to open exploration when perforated sigmoid colon was found and it was resected with a Deena type procedure and end colostomy as well as core needle liver biopsy, segment 5, due to presence of fatty liver disease, lysis of adhesions, and abdominal lavage on 02/01/17. Complicated by respiratory failure, return trip to ICU and fascia dehiscence. S/p exploration of abdomen through recent laparotomy, primary closure of fascia and abdominal lavage on 02/15. 2. Repair of a fistula approximately 5 years ago. 3. Torn meniscus on the left knee status post repair. 4. S/p trach and PEG 03/09/17 at [facility]. Subjective: No major events or complications other than above removal of trach towards the end of April 2017; reports slightly stronger and able to tolerate p.o.'s. Has been continuing to slowly gain weight. No other major complaints including no pain complaints. Objective: Vitals: See below Exam: GENERAL: On exam, the patient was sitting in a wheelchair and appeared to be comfortable and in no acute distress. Breathing room air. Eyes open and responds to voice. Tracheostomy site covered by dressing. ABDOMEN: Soft, nontender and nondistended. Incision wound vac dressings no longer present and his incisions appear to have healed completely and are clean without any evidence of obvious erythema, edema, discharge, or hernia. Surgery drain site clean. Ostomy pink and viable; some air and stool in the bag. There are no peritoneal signs or guarding. PEG in place and tube insertion site clean. SKIN: Skin appears to be pink and feels warm to touch. NEUROLOGIC: Patient is awake, alert, and follows commands appropriately. Exam/Review of Systems Vital Signs Vitals Vital Signs Date Time Temp Pulse Resp B/P Pulse Ox O2 Delivery O2 Flow Rate FiO2 05/26/17 09:45 97.9 67 18 109/69 100 Room Air TI HILTON M.D. May 26, 2017 17:59
== END 2017-05-26 17:00 | disposition home or self-care (01) ==
LOC: HPC 09:35
PROVIDERS: ATTEND Transplant Surgery
DX: K50.90 Crohn's disease, unspecified, without complications (principal); K63.1 Perforation of intestine (nontraumatic)
CPT/HCPCS: G0463

== ENCOUNTER 2017-06-10 17:15 | Inpatient (IN) | payer OTHER ==
[~2017-06-10] VITALS: Ht 188 cm; Wt 60.4 kg
[~2017-06-10 17:15] MED LIST changes: -BISA10SU55 RC; -CHLO118L3 ORAL; -ENOX40DI14 SC; -FOLI-49 G-TUBE; -POLY17PO6 G-TUBE
--- NOTE | 2017-06-10 22:14 | ERA ---
ER Documentation Chief Complaint Date/Time DATE: 06/10/17 TIME: 22:13 Chief Complaint ABD PAIN HPI The patient is a 46-year-old male, presenting to the ER because right-sided abdominal pain for 1 day, worse since 11 PM, 06/27, no aggravating or relieving factor. He denies similar symptoms previously, denies fever, chills, neck pain , chest pain, dysuria, diarrhea. He recently had colostomy and STEVE drainage due to perforated sigmoid colon on March 2017. He smokes and drinks socially Past medical history: Asthma, Crohn's disease Past surgical history: Left knee, left femur ROS All systems reviewed and are negative except as per history of present illness. Medications Home Meds Reported Medications Metoclopramide* (Reglan*) 5 Mg Tablet, 5 MG G-TUBE TID for NAUSEA, TAB 04/21/17 Pantoprazole Sodium (Protonix) 40 Mg Granpkt.dr, 40 MG G-TUBE 04/21/17 Folic Acid* (Folic Acid*) 1 Mg Tablet, 1 MG PO DAILY, TAB 04/21/17 Discontinued Reported Medications Zinc Sulfate* (Zinc Sulfate*) 220 Mg Cap, 220 MG G-TUBE DAILY, CAP 04/21/17 Acetaminophen* (Tylenol*) 325 Mg Tablet, 650 MG G-TUBE Q4H Y for MILD PAIN LEVEL 1-3, TAB 04/21/17 Thiamine* (Thiamine*) 100 Mg Tablet, 100 MG G-TUBE DAILY, TAB 04/21/17 Hydrocodone/Acetaminophen (Friend 5-325 Tablet) 1 Each Tablet, 1 EACH G-TUBE BID , TAB 04/21/17 Multivitamin (MULTI VITAMIN DAILY) 1 Each Tablet, 1 TAB G-TUBE DAILY, TAB 04/21/17 Magnesium Hydroxide* (Milk Of Magnesia*) 400 Mg/5 Ml Oral.susp, 30 ML G-TUBE Q24H for CONSTIPATION, ML 04/21/17 Na Phos,M-B/Na Phos,Di-Ba (Fleet Enema Extra) 230 Ml Enema, 230 ML RC DAILY for CONSTIPATION, ENEMA 04/21/17 Ferrous Sulfate (FEROSUL) 300 Mg/6.82 Ml Solution, 330 MG G-TUBE DAILY 04/21/17 Docusate Sodium* (Colace*) 100 Mg Capsule, 100 MG PO DAILY for CONSTIPATION, # 30 CAP 04/21/17 Albuterol Sulfate* (Albuterol Sulfate* Neb) 0.083%-3 Ml Neb, 2.5 MG NEB Q3H Y for WHEEZING AND SOB, #30 VIAL 04/21/17 Allergies Allergies: Coded Allergies: No Known Allergy (Unverified , 06/10/17) PMhx/Soc History of Surgery: Yes (L KNEE SX (MENISUC) 05/2016, L LEG BROKEN FEMUR, ANAL FISTUAL SX 5 YRS AGO) Anesthesia Reaction: No Hx Neurological Disorder: No Hx Respiratory Disorders: Yes (ASTHMA) Hx Cardiac Disorders: No Hx Psychiatric Problems: No Hx Miscellaneous Medical Probl: Yes (Chrons, L knee surgery) Hx Alcohol Use: No Hx Substance Use: No Hx Tobacco Use: Yes (QUIT A FEW WEEKS AGO, 1/2 PACK SINCE 19 YRS OLD) Smoking Status: Former smoker Physical Exam Vitals Vital Signs Date Time Temp Pulse Resp B/P Pulse Ox O2 Delivery O2 Flow Rate FiO2 06/10/17 23:38 98.4 76 20 110/71 100 Room Air 06/10/17 17:19 98.6 89 18 103/69 100 Physical Exam Const: No acute distress. Dehydrated Head: Atraumatic. Eyes: Normal Conjunctiva. ENT: Normal External Ears, Nose and Mouth. Neck: Full range of motion. No meningismus. Resp: Clear to auscultation bilaterally. Cardio: Regular rate and rhythm. Abd: Soft, non distended, normal bowel sounds, moderate right-sided abdominal tenderness, no rigidity, rebound, CVA tenderness Skin: No petechiae or rashes. Back: No midline or flank tenderness. Ext: No cyanosis, or edema. Neur: Awake and alert. No focal deficit Psych: Normal Mood and Affect. Result Diagram: 06/10/17224106/10/172241 Results 24 hrs Laboratory Tests Test 06/10/17 22:42 06/10/17 23:00 White Blood Count 14.610^3/ul Red Blood Count 5.5610^6/ul Hemoglobin 14.6g/dl Hematocrit 45.3% Mean Corpuscular Volume 81.5fl Mean Corpuscular Hemoglobin 26.3pg Mean Corpuscular Hemoglobin Concent 32.2g/dl Red Cell Distribution Width 15.0% Platelet Count 04338^3/UL Mean Platelet Volume 10.2fl Neutrophils % 86.3% Lymphocytes % 8.2% Monocytes % 4.1% Eosinophils % 0.8% Basophils % 0.3% Nucleated Red Blood Cells % 0.0/100WBC Neutrophils # (Manual) 12.610^3/ul Lymphocytes # 1.210^3/ul Monocytes # 0.610^3/ul Eosinophils # 0.110^3/ul Basophils # 0.110^3/ul Nucleated Red Blood Cells # 0.010^3/ul Sodium Level 143mmol/L Potassium Level 4.1mmol/L Chloride Level 97mmol/L Carbon Dioxide Level 27mmol/L Anion Gap 23 Blood Urea Nitrogen 21mg/dl Creatinine 1.07mg/dl Glucose Level 103mg/dl Calcium Level 13.3mg/dl Total Bilirubin 0.1mg/dl Direct Bilirubin 0.00mg/dl Indirect Bilirubin 0.1mg/dl Aspartate Amino Transf (AST/SGOT) 17IU/L Alanine Aminotransferase (ALT/SGPT) 16IU/L Alkaline Phosphatase 128IU/L Total Protein 9.7g/dl Albumin 4.6g/dl Globulin 5.10g/dl Albumin/Globulin Ratio 0.90 Lipase 51U/L Bedside Urine pH (LAB) 5.0 Bedside Urine Protein (LAB) 1+ Bedside Urine Glucose (UA) Negative Bedside Urine Ketones (LAB) Negative Bedside Urine Blood Negative Bedside Urine Nitrite (LAB) Negative Bedside Urine Leukocyte Esterase (L Negative Current Medications Medications (Trade) Dose Ordered Sig/Malcom Route PRN Reason Start Time Stop Time Status Last Admin Dose Admin Sodium Chloride (NS) 1,000 ml @ 1,000 mls/hr Q1H STAT IV 06/10/17 22:36 06/10/17 23:35 DC 06/10/17 22:46 Morphine Sulfate (morphine) 2 mg ONCE STAT IV 06/10/17 22:36 06/10/17 22:38 DC 06/10/17 22:47 Ondansetron HCl 4 mg 4 mg ONCE STAT IV 06/10/17 22:36 06/10/17 22:38 DC 06/10/17 22:47 Sodium Chloride (NS) 100 ml @ ud STK-MED ONCE .ROUTE 06/10/17 23:43 06/10/17 23:44 DC 06/11/17 00:03 Iohexol 150 ml 150 ml STK-MED ONCE .ROUTE 06/10/17 23:43 06/10/17 23:44 DC 06/11/17 00:02 Piperacillin Sod/ Tazobactam Sod (Zosyn 3.375gm/ 100 ml (Pmx)) 100 ml @ 200 mls/hr ONCE ONCE IVPB 06/11/17 01:30 06/11/17 01:59 DC 06/11/17 02:25 Procedures/MDM [place] [address] Radiology Main Line: [phone] DIAGNOSTIC IMAGING REPORT Patient: ENIO MARROQUIN : 1970 Age: 46 Sex: M MR #: [id number] DOS: 06/10/172235 Ordering MD: KEITH COULTER MD Location: E/R Room/Bed: PROCEDURE: CT ABDOMEN AND PELVIS WITH CONTRAST: CLINICAL INDICATION: 46 years of age, male, abdominal pain. COMPARISON: None available. TECHNIQUE: CT of the abdomen, and pelvis was performed following administration of 100 mL IV Omnipaque-300. Oral contrast was not administered prior to the examination. Coronal and sagittal reformatted images were obtained from the axial source images. Images were reviewed on a high-resolution PACS workstation. Dose information: Based on a 32 cm phantom, the estimated radiation dose (CTDI vol mGy for each series in this exam is 4.8. The estimated cumulative dose ( DLP mGy-cm) is 300. FINDINGS: LUNG BASES: There is linear atelectasis at bilateral lung bases. Previously identified right lower lobe bronchiolitis and pneumonitis and left lower lobe consolidation has resolved. Previously identified left pleural effusion has resolved. There are small pulmonary nodules that are unchanged. For example 0.6 cm nodule in left lung lingula is unchanged (12/27). ABDOMEN/PELVIS: Intra-abdominal fluid collections are similar or decreased in size since prior exam. Some of the collections demonstrate increased enhancement with less a central liquefaction. They are as follows: 1. Right subphrenic over the right hepatic dome (): 1.7 x 5.5 x 6.8 cm ( previous 1.9 x 6 cm x 5.9). Similar size. Peripheral enhancement is mildly increased and central liquefaction is mildly decreased. 2. Right perihepatic overlying segment 6 (3/48): 1.1 x 4 cm (previous 1.5 x 3 cm). Similar size. Enhancement is increased and central liquefaction is decreased. 3. Right perihepatic inferior segment 6 (83): 0.7 cm (previous 1.7 cm). Decreased in size. 4. Right mid abdomen deep to the abdominal wall (601/34): 1.1 x 2.8 cm ( previous 2.5 x 5.1 cm). Decreased in size pill Liver: Normal. Portal veins, splenic vein and SMV are patent. Hepatic veins are patent. Gallbladder: Cholelithiasis without evidence of acute cholecystitis. Bile ducts: No intrahepatic or extrahepatic biliary duct dilatation. There are two small hyperdense foci in the intrapancreatic segment of the common bile duct that likely represent calculi (60/44 and 12/1982). Spleen: Normal. Pancreas: 1.1 cm hypodensity in the uncinate process is more conspicuous than on prior exams and is indeterminate and may represent volume averaging through fat or a duodenal diverticulum (). Pancreas is otherwise normal. Adrenal glands: Normal. Kidneys and ureters: Normal. Aorta and IVC: Patent. Lymph nodes: Normal. Gastrointestinal tract: Status post sigmoid colon resection with rectal stump and left lower quadrant colostomy. There is a percutaneous G tube. There are mildly dilated fluid-filled loops of bowel in the central abdomen without a transition point in keeping with an ileus. Appendix: Appendix is enlarged and measures up to 1.2 cm (3/128). Appendiceal wall is hyperemic. There is gas in the lumen of the appendix. Negative for edema in the surrounding fat. This is more conspicuous than on prior exams. Bladder: Normal. Pelvic Organs: Normal. Peritoneal cavity: Fluid collections are described above. 0.7 cm nodule extraperitoneal fat lower quadrant may be postsurgical fat necrosis (103). Negative for free fluid or free intraperitoneal air. Abdominal wall: Normal. BONES: Musculoskeletal: There is bony sclerosis and mild height loss with anterior wedging at L1 that is unchanged in since February 28, 2017. There are multilevel degenerative changes in the lumbar spine. Orthopedic hardware proximal left femur. No new or suspicious bone lesions. IMPRESSION: Linear atelectasis at bilateral lung bases with unchanged pulmonary nodules. Previously identified right lower lobe pneumonitis and left lower lobe consolidation has resolved. Intra-abdominal fluid collections in the right upper quadrant of the abdomen are similar or decreased in size since March 20, 2017. Similar size collections overlying the right hepatic lobe demonstrate increased enhancement and decreased central liquefaction. More inferior collections have decreased in size but have not resolved. Cholelithiasis without evidence of acute cholecystitis. There is suspected choledocholithiasis with two small calculi in the intrapancreatic segment of the common bile duct without evidence of biliary obstruction. Enlarged and hyperemic appendix without edema in the surrounding fat and with intraluminal gas. This is equivocal for acute appendicitis. Recommend clinical correlation. Bony sclerosis at L1 with mild height loss and anterior wedging is unchanged in since February 28, 2017. Findings were discussed with Dr Keith Coulter by Dr. Anum Hudson on June 11, 2017 at 12:41 AM. RPTAT: HCTS Physician Hilda Date Time Electronically viewed and signed by Karly Hudson Physician on 06/11/2017 00: 45 CS/ CC: KEITH COULTER MD MEDICAL MAKING DECISION: The patient is a 46-year-old male, presenting with acute abdominal pain that is concerning for early acute appendicitis, cholecystitis, acute hypercalcemia. He was treated with 2 L normal saline for acute dehydration and acute hyperglycemia, morphine 2 mg IV for pain and Zofran 4 mg IV for nausea, Zosyn IV for possible acute early appendicitis with good response. The differential diagnoses considered include but are not limited to appendicitis, cholecystitis, small bowel obstruction, ileus, abscess, cystitis, pyelonephritis Departure Diagnosis: Primary Impression: Abdominal pain Additional Impressions: Dehydration Biliary colic Hypercalcemia Condition: Stable Comments Consultation: I discussed the patient with his general surgeon Dr. Tatum at 1: 40 AM, who was made aware of the lab, the treatment, the patient condition. He accepted the consult I discussed the findings with the patient. I discussed the patient with the on- call hospitalist Dr. Johnson who was made aware of the lab, the treatment, the patient condition and my discussion with the general surgeon. The patient is admitted to KEITH Wagner MD Jun 10, 2017 22:10
[2017-06-10] MEDS ORDERED: SOD CHLORIDE 0.9% 1,000 ML IV STA (22:36)
[2017-06-10] MEDS ORDERED: morphine 2 MG INJ IV STA (22:36)
[2017-06-10] MEDS ORDERED: ONDANSETRON 4 MG INJ IV STA (22:36)
[2017-06-10 22:55] LABS: URINE BLOOD (Dip) POC Negative (NEGATIVE)
[2017-06-10 23:12] LABS: BASOPHIL # 0.1 10^3/ul (0.0-0.1); BASOPHILS % 0.3 % (0.0-2.0); EOSINOPHILS # 0.1 10^3/ul (0.0-0.5); EOSINOPHILS % 0.8 % (0.0-7.0); HEMATOCRIT 45.3 % (42.0-52.0); HEMOGLOBIN 14.6 g/dl (14.0-18.0); LYMPHOCYTES # 1.2 10^3/ul (0.8-2.9); LYMPHOCYTES % 8.2 % (15.0-51.0); MEAN CORPUSCULAR HEMOGLOBIN 26.3 pg (29.0-33.0); MEAN CORPUSCULAR HGB CONC 32.2 g/dl (32.0-37.0); MEAN CORPUSCULAR VOLUME 81.5 fl (82.0-101.0); MEAN PLATELET VOLUME 10.2 fl (7.4-10.4); MONOCYTE # 0.6 10^3/ul (0.3-0.9); MONOCYTES % 4.1 % (0.0-11.0); NEUTROPHILS % 86.3 % (39.0-77.0); PLATELET COUNT 406 10^3/UL (140-415); RED BLOOD COUNT 5.56 10^6/ul (4.70-6.10); WHITE BLOOD COUNT 14.6 10^3/ul (4.8-10.8)
[2017-06-10 23:26] LABS: ALBUMIN 4.6 g/dl (3.3-4.9); ALBUMIN/GLOBULIN RATIO 0.9; BILIRUBIN,INDIRECT 0.1 mg/dl (0-1.1); BILIRUBIN,TOTAL 0.1 mg/dl (0.2-1.3); CREATININE 1.07 mg/dl (0.61-1.24); POTASSIUM 4.1 mmol/L (3.5-5.1); TOTAL PROTEIN 9.7 g/dl (6.1-8.1)
[2017-06-10 23:36] LABS: CALCIUM 13.3 mg/dl (8.4-10.2)
[2017-06-10 23:38] VITALS: TEMP 98.4
[2017-06-10] MEDS ORDERED: SOD CHLORIDE 0.9% 100 ML ONE (23:43)
[2017-06-10] MEDS ORDERED: IOHEXOL 300MG/ML 150 ML BTL ONE (23:43)
[2017-06-11] VITALS (10 sets, daily range): BP systolic 100–118; BP diastolic 60–68; PULSE 57–63; RESP 18–20; Ht 188 cm; Wt 60.4 kg
--- NOTE | 2017-06-11 00:46 | RADRPT ---
AMENDMENT: 06/19/2017 10:30:33 PM Anum Hudson M.D One or more of the following dose reduction techniques were used: - Automated exposure control. - Adjustment of the mA and/or kV according to patient size. - Use of iterative reconstruction technique. PROCEDURE: CT ABDOMEN AND PELVIS WITH CONTRAST: CLINICAL INDICATION: 46 years of age, male, abdominal pain. COMPARISON: None available. TECHNIQUE: CT of the abdomen, and pelvis was performed following administration of 100 mL IV Omni paque-300. Oral contrast was not administered prior to the examination. Coronal and sagittal reformatted images were obtained from the axial source images. Images were revi ewed on a high-resolution PACS workstation. Dose information: Based on a 32 cm phantom, the estimated radiation dose (CTDI vol mGy for each seri es in this exam is 4.8. The estimated cumulative dose (DLP mGy-cm) is 300. FINDINGS: LUNG BASES: There is linear atelectasis at bilateral lung bases. Previously identified right lower lobe bronchiolitis and pneumonitis and left lower lobe consolidation has resolved. Previously ident ified left pleural effusion has resolved. There are small pulmonary nodules that are unchanged. Fo r example 0.6 cm nodule in left lung lingula is unchanged (12/27). ABDOMEN/PELVIS: Intra-abdominal fluid collections are similar or decreased in size since prior exam. Some of the co llections demonstrate increased enhancement with less a central liquefaction. They are as follows: 1. Right subphrenic over the right hepatic dome (601/54): 1.7 x 5.5 x 6.8 cm (previous 1.9 x 6 cm x 5.9). Similar size. Peripheral enhancement is mildly increased and central liquefaction is mildly decreased. 2. Right perihepatic overlying segment 6 (): 1.1 x 4 cm (previous 1.5 x 3 cm). Similar size. Enhancement is increased and central liquefaction is decreased. 3. Right perihepatic inferior segment 6 (): 0.7 cm (previous 1.7 cm). Decreased in size. 4. Right mid abdomen deep to the abdominal wall (601/34): 1.1 x 2.8 cm (previous 2.5 x 5.1 cm). De creased in size pill Liver: Normal. Portal veins, splenic vein and SMV are patent. Hepatic veins are patent. Gallbladder: Cholelithiasis without evidence of acute cholecystitis. Bile ducts: No intrahepatic or extrahepatic biliary duct dilatation. There are two small hyperdense foci in the intrapancreatic segment of the common bile duct that likely represent calculi (601/44 an d 12/1982). Spleen: Normal. Pancreas: 1.1 cm hypodensity in the uncinate process is more conspicuous than on prior exams and is indeterminate and may represent volume averaging through fat or a duodenal diverticulum (). Panc reas is otherwise normal. Adrenal glands: Normal. Kidneys and ureters: Normal. Aorta and IVC: Patent. Lymph nodes: Normal. Gastrointestinal tract: Status post sigmoid colon resection with rectal stump and left lower quadran t colostomy. There is a percutaneous G tube. There are mildly dilated fluid-filled loops of bowel in the central abdomen without a transition point in keeping with an ileus. Appendix: Appendix is enlarged and measures up to 1.2 cm (/128). Appendiceal wall is hyperemic. T here is gas in the lumen of the appendix. Negative for edema in the surrounding fat. This is more conspicuous than on prior exams. Bladder: Normal. Pelvic Organs: Normal. Peritoneal cavity: Fluid collections are described above. 0.7 cm nodule extraperitoneal fat lower quadrant may be postsurgical fat necrosis (). Negative for free fluid or free intraperitoneal air. Abdominal wall: Normal. BONES: Musculoskeletal: There is bony sclerosis and mild height loss with anterior wedging at L1 that is un changed in since February 28, 2017. There are multilevel degenerative changes in the lumbar spine. Ortho pedic hardware proximal left femur. No new or suspicious bone lesions. IMPRESSION: Linear atelectasis at bilateral lung bases with unchanged pulmonary nodules. Previously identified right lower lobe pneumonitis and left lower lobe consolidation has resolved. Intra-abdominal fluid collections in the right upper quadrant of the abdomen are similar or decrease d in size since March 20, 2017. Similar size collections overlying the right hepatic lobe demonstrate increased enhancement and decreased central liquefaction. More inferior collections have decreased in size but have not resolved. Cholelithiasis without evidence of acute cholecystitis. There is suspected choledocholithiasis with two small calculi in the intrapancreatic segment of the common bile duct without evidence of biliar y obstruction. Enlarged and hyperemic appendix without edema in the surrounding fat and with intraluminal gas. Thi s is equivocal for acute appendicitis. Recommend clinical correlation. Bony sclerosis at L1 with mild height loss and anterior wedging is unchanged in since February 28, 2017. Findings were discussed with Dr Keith Flowers by Dr. Anum Hudson on June 11, 2017 at 12:41 AM. RPTAT: HCTS Karly Hudson, Physician Date Time Electronically viewed and signed by Karly Hudson, Physician on 06/19/2017 22:31 CS/
[2017-06-11] MEDS ORDERED: PIPER-TAZO 3.375 GM IV (PMX) 100 ML IVPB ONE (01:30)
[2017-06-11] MEDS ORDERED: SOD CHLORIDE 0.9% 1,000 ML IV ONE (02:00)
[2017-06-11] MEDS ORDERED: morphine 2 MG INJ IV PRN (04:00)
[2017-06-11] MEDS ORDERED: ONDANSETRON 4 MG INJ IV PRN (04:00)
[2017-06-11] MEDS: SOD CHLORIDE 0.9% 1,000 ML IV SCH ×2 (04:17→13:45)
[2017-06-11] MEDS ORDERED: DIPHENHYDRAMINE 25 MG CAP PO ONE (04:30)
--- NOTE | 2017-06-11 06:32 | HP ---
DATE OF ADMISSION: 06/11/2017 CHIEF COMPLAINT: Right lower quadrant abdominal pain for 1 day's duration. HISTORY OF PRESENT ILLNESS: Dale is a 46-year-old male known to me from previous admission to our facility where he had come in at that time with history of severe Crohn's colitis with exacerbation and had to undergo emergent surgery and had prolonged hospitalization due to multiple complications to include respiratory failure that warranted multiple intubations, recurrent surgeries, lactic acidosis, multiple pneumonia. The patient was discharged after he underwent a tracheostomy and had a PEG tube placed and since has had his tracheostomy removed and has been doing well. He presents today with a right lower quadrant abdominal pain of 1 day's duration, being described as intermittent. It has been worsening. There has been no fever. He denies chest pain. He denies fever. A CT scan in the emergency room is concerning for a possible acute appendicitis, as well as suspected choledocholithiasis; however, based on the location of his pain, it is likely secondary to the appendix. He is being admitted for surgical review and further workup. PAST MEDICAL HISTORY: Positive for: 1. Crohn's disease. 2. History of severe respiratory failure requiring endotracheal intubation about 4 times. 3. History of Deena's procedure to perforated bowel from severe Crohn's disease. 4. Remote history of heavy alcohol and tobacco use. SURGICAL HISTORY: Also includes repair of fistula many years ago, torn meniscus in the left knee, status post repair, status post trach and PEG at [facility], also multiple surgeries to include Deena's procedure, exploration of the abdominal laparotomy sites, colostomy placement. ALLERGIES: HE HAS NO KNOWN DRUG ALLERGIES. SOCIAL HISTORY: Denies tobacco, alcohol or illicit drug use. FAMILY HISTORY: Noncontributory. PHYSICAL EXAMINATION: VITAL SIGNS: Temperature 98.4, pulse 76, respirations 20, blood pressure 110 , saturation 100 percent on room air. GENERAL APPEARANCE: Dale is a gentleman, alert, oriented. Currently, no distress. HEENT: Head normocephalic. Pupils are equal. His trach site is healing well, clean and dry. LUNGS: His breath sounds are diminished bilaterally. ABDOMEN: Surgical sites are clean and healing well. Ostomy is grayish-pink with some air and stool in the bag. He does have right lower quadrant tenderness with mild guarding. PEG tube and Zeng are in place. EXTREMITIES: Lower extremities negative for edema. PSYCHIATRIC: Patient cooperative with exam. LABORATORY VALUES: His calcium level was quite elevated at 13.3 and the BUN was also elevated at 21, which could be secondary to dehydration. His LFTs: Alkaline phosphatase mildly elevated, as well as his total protein levels. He did have a leukocytosis of 14,000, but normal hemoglobin, which could be secondary to hemoconcentration, but low MCV and MCH. He also had a neutrophil- predominant picture but no bands. Coagulation profile is urine. IMAGING: CT of abdomen and pelvis showed multiple not significant, multiple intra-abdominal fluid collections that have been similar or decreased in size since March 2017, and cholelithiasis without evidence of cholecystitis with suspected choledocholithiasis, as well as an enlarged and hyperemic appendix, which is suggestive of an acute appendicitis. IMPRESSION: A 46-year-old male with an extensive medical history in this facility after he presented with perforated viscus in the setting Crohn's colitis and then has done well, who is here with right lower quadrant abdominal pain and managed as follows: 1. Rule out acute appendicitis. 2. Suspected choledocholithiasis without obstruction or cholecystitis. 3. Status post percutaneous endoscopic gastrostomy tube, as well as colostomy placement. 4. Dehydration with hypercalcemia. 5. History of Crohn's colitis. PLAN: Admit patient, commence gentle hydration, commence empiric antibiotic treatment, keep patient n.p.o. General surgical review with Dr. Ahmet Kuo. Provide supportive care with pain control, as well as antiemetics and antipyretics as needed. Further intervention will depend on his clinical course. Prophylaxis will be with Lovenox and Pepcid. Dictated By: Bettie Johnson MD /[email or web address]/yumiko /Document#: [id number]
[2017-06-11 06:59] LABS: BASOPHILS % 0.5 % (0.0-2.0); EOSINOPHILS # 0.5 10^3/ul (0.0-0.5); EOSINOPHILS % 5.1 % (0.0-7.0); HEMATOCRIT 33.5 % (42.0-52.0); HEMOGLOBIN 10.8 g/dl (14.0-18.0); LYMPHOCYTES # 1.6 10^3/ul (0.8-2.9); LYMPHOCYTES % 18.2 % (15.0-51.0); MEAN CORPUSCULAR HEMOGLOBIN 26.3 pg (29.0-33.0); MEAN CORPUSCULAR HGB CONC 32.2 g/dl (32.0-37.0); MEAN CORPUSCULAR VOLUME 81.5 fl (82.0-101.0); MEAN PLATELET VOLUME 9.8 fl (7.4-10.4); MONOCYTE # 0.8 10^3/ul (0.3-0.9); MONOCYTES % 8.6 % (0.0-11.0); NEUTROPHILS % 67.3 % (39.0-77.0); PLATELET COUNT 304 10^3/UL (140-415); RED BLOOD COUNT 4.11 10^6/ul (4.70-6.10); WHITE BLOOD COUNT 8.9 10^3/ul (4.8-10.8)
[2017-06-11 07:33] LABS: CREATININE 0.89 mg/dl (0.61-1.24); MAGNESIUM 1.6 mg/dl (1.7-2.5); PHOSPHORUS 3.6 mg/dl (2.5-4.9); POTASSIUM 3.7 mmol/L (3.5-5.1)
--- NOTE | 2017-06-11 08:35 | RADRPT ---
PROCEDURE: US Abdomen (right upper quadrant). CLINICAL INDICATION: Right upper quadrant pain. Possible choledocholithiasis seen on the CT 06/10 TECHNIQUE: Multiple real-time longitudinal and transverse images of the right upper quadrant of th e abdomen were acquired utilizing a curved array transducer. Images were reviewed on a high-resoluti on PACS workstation. COMPARISON: CT abdomen pelvis from 06/10/2017 FINDINGS: The liver is normal in size and echotexture without focal mass or intrahepatic biliary dilatation. There is normal hepatopedal flow within the main portal vein. The gallbladder is well displayed wit h multiple small echogenic poorly shadowing calculi. There is no wall thickening. The common bile duct measures 4.5 mm in maximal dimension. No definite choledocholithiasis is appreciated P The visu alized portions of the pancreas are unremarkable with obscuration of the tail of the pancreas. No f ree fluid is identified. The right kidney measures 11 point save cm in length. There is normal echogenicity within the right kidney. There is no perinephric fluid collection. No hydronephrosis, mass, or calculus is seen. IMPRESSION: 1. Cholelithiasis without evidence of biliary tree dilatation. No definite choledocholithiasis see n. MRCP is suggested in further evaluation. RPTAT: [facility] Physician Manuel Date Time Electronically viewed and signed by Physician Manuel on 06/11/2017 08:35 /
[2017-06-11] MEDS: FAMOTIDINE 20 MG INJ IV SCH ×2 (10:32→21:49)
[2017-06-11] MEDS: ENOXAPARIN 40 MG/0.4 ML SYG SC SCH (10:32)
[2017-06-11] MEDS ORDERED: PIPER-TAZO 3.375 GM IV (PMX) 100 ML IVPB SCH (13:00)
[2017-06-11] MEDS: PIPER-TAZO 3.375 GM IV (PMX) 100 ML IVPB SCH ×2 (13:02→17:49)
--- NOTE | 2017-06-11 17:05 | CONS ---
Date/Time of Note Date/Time of Note DATE: 06/11/17 TIME: 16:56 Assessment/Plan Assessment/Plan Additional Assessment/Plan Assessment: * Rule out acute appendicitis * Cholelithiasis/rule out choledocholithiasis * Crohn's disease/rule out exacerbation * Post sigmoid perforation/post Deena procedure * Post trach/removed * Post PEG * History of ethanol abuse currently abstinent Plan: * NPO until seen by surgeon * Surgical consultation pending * Once cleared by surgery MRI MRCP * Will also benefit from CT enterography to assess activity of Crohn's * Colonoscopy will have to be deferred until definite exclusion of appendicitis Consultation Date/Type/Reason Admit Date/Time Jun 11, 2017 at 01:41 Date of Consultation: Jun 11, 2017 Type of Consultation: GI Reason for Consultation Abdominal pain Hx of Present Illness 46-year-old man with a complex past medical history the patient was hospitalized recently with a perforated sigmoid. Underwent colostomy placement and had a very difficult recovery. Ultimately gastrostomy tube and tracheostomy was placed, a tracheostomy has since been removed the patient still has a gastrostomy tube which he is not using. Patient presents to the emergency room with approximately 24-36 hours of progressively worsening right lower quadrant abdominal pain. There is no fever, chills or diaphoresis. Evaluation in the emergency room included a CT of the abdomen and pelvis which raises questions about the possibility of appendicitis and also the possibility of choledocholithiasis. The patient appears comfortable at the present time he does have pain in the right lower quadrant area which appears to be intermittent with significant exacerbations. There has been no overt gastrointestinal bleeding. Surgical consult is pending at this time. The patient will be closely observed once appendicitis has been excluded the patient should have MRI MRCP to assess the biliary tree. Further evaluation should also be undertaken to determine the activity of Crohn's disease and initiate therapy if appropriate Constitutional: improved, no complaints Eyes: no complaints ENT: no complaints Respiratory: no complaints Cardiovascular: no complaints Gastrointestinal: other (See HPI) Genitourinary: no complaints Musculoskeletal: no complaints Skin: no complaints Neurologic: no complaints Endocrine: no complaints Lymphatic: no complaints Psychological: nl mood/affect, no complaints Immunologic: no complaints Past Medical History Crohn's disease Post sigmoid perforation Post trach/removed Post PEG History of ethanol abuse currently abstinent Past Surgical History Cronin's procedure Post PEG Post trach/closed Family History Significant Family History: no pertinent family hx Social History Alcohol Use: sober Smoking Status: Former smoker Drug Use: none Exam/Review of Systems Vital Signs Vitals Vital Signs Date Time Temp Pulse Resp B/P Pulse Ox O2 Delivery O2 Flow Rate FiO2 06/11/17 16:10 63 06/11/17 15:36 98.1 20 110/68 99 06/10/17 23:38 Room Air Exam PHYSICAL EXAMINATION: GENERAL: Well developed, well nourished, alert & oriented x 3, in no acute distress SKIN: No lesions, no stigmata chronic liver disease, no evidence of bleeding diathesis LYMPHATIC: No palpable lymphadenopathy. HEAD: Normocephalic, atraumatic, no tenderness. EYES: Pupils equal reactive to light and accommodation, full extraocular movements, sclera clear, non-icteric, no discharge. EARS/NOSE AND THROAT: Ears normal, nose normal, oropharynx normal, oral membranes well hydrated without lesions. NECK: Supple, no masses, thyroid normal, JVP within normal limits, carotids normal without bruits. CHEST: Inspection within normal limits, breasts grossly normal. CARDIOVASCULAR: Heart: Regular rate and rhythm, no murmurs, gallops or rubs. Peripheral pulses present within normal limits, no cyanosis, clubbing or edemas. No pulsatile abdominal mass RESPIRATORY: Lungs clear to auscultation and percussion, no wheezing, no rubs GASTROINTESTINAL AND LIVER: Abdomen: Colostomy bag in the left abdomen, soft, moderate right lower quadrant tenderness, non-distended, no hernias, no masses, no organomegaly, no ascites, no guarding, no rebound tenderness, normoactive bowel sounds. Rectal: Deferred. GENITOURINARY: [Male genitalia within normal limits.] MUSCULO-SKELETAL: Gait and station within normal limits, range of motion adequate. Results Result Diagram: 06/11/17 0643 06/11/17 0643 Results 24 hrs Laboratory Tests Test 06/10/17 22:42 06/11/17 06:43 White Blood Count 14.6 H 8.9 # Red Blood Count 5.56 # 4.11 #L Hemoglobin 14.6 # 10.8 #L Hematocrit 45.3 # 33.5 #L Mean Corpuscular Volume 81.5 L 81.5 L Mean Corpuscular Hemoglobin 26.3 L 26.3 L Mean Corpuscular Hemoglobin Concent 32.2 32.2 Red Cell Distribution Width 15.0 H 15.0 H Platelet Count 406 # 304 # Mean Platelet Volume 10.2 9.8 Neutrophils % 86.3 H 67.3 Lymphocytes % 8.2 L 18.2 Monocytes % 4.1 8.6 Eosinophils % 0.8 5.1 Basophils % 0.3 0.5 Nucleated Red Blood Cells % 0.0 0.0 Neutrophils # (Manual) 12.6 H 6.0 Lymphocytes # 1.2 1.6 Monocytes # 0.6 0.8 Eosinophils # 0.1 0.5 Basophils # 0.1 0.0 Nucleated Red Blood Cells # 0.0 0.0 Sodium Level 143 143 Potassium Level 4.1 3.7 Chloride Level 97 107 # Carbon Dioxide Level 27 24 Anion Gap 23 H 16 # Blood Urea Nitrogen 21 H 17 Creatinine 1.07 0.89 Glucose Level 103 93 Calcium Level 13.3 *H 11.0 #H Total Bilirubin 0.1 L Direct Bilirubin 0.00 Indirect Bilirubin 0.1 Aspartate Amino Transf (AST/SGOT) 17 Alanine Aminotransferase (ALT/SGPT) 16 Alkaline Phosphatase 128 H Total Protein 9.7 H Albumin 4.6 Globulin 5.10 H Albumin/Globulin Ratio 0.90 Lipase 51 Phosphorus Level 3.6 Magnesium Level 1.6 L Medications Medications Current Medications Morphine Sulfate 2 mg 2 mg Q4H PRN IV pain; Start 06/11/17 at 04:00 Sodium Chloride (NS) 1,000 ml @ 100 mls/hr Q10H IV Last administered on 13:45; Admin Dose 100 MLS/HR; Start 06/11/17 at 04:00 Ondansetron HCl (Zofran Inj) 4 mg Q6H PRN IV NAUSEA AND/OR VOMITING; Start at 04:00 Enoxaparin Sodium (Lovenox) 40 mg DAILY SC Last administered on 06/11/17 10:32 ; Admin Dose 40 MG; Start 06/11/17 at 09:00 Famotidine 20 mg 20 mg BID IV Last administered on 06/11/17 10:32; Admin Dose 20 MG; Start 06/11/17 at 09:00 Piperacillin Sod/ Tazobactam Sod (Zosyn 3.375gm/ 100 ml (Pmx)) 100 ml @ 200 mls /hr Q6 IVPB Last administered on 06/11/17t 13:02; Admin Dose 200 MLS/HR; Start 06/11/17 at 13:00 SANDRA DAVIS MD Jun 11, 2017 17:05
--- NOTE | 2017-06-11 21:08 | CONS ---
Date/Time of Note Date/Time of Note DATE: 06/11/17 TIME: 21:05 Assessment/Plan Assessment/Plan Additional Assessment/Plan [facility] Progress Note Date of Service: 06/11/17 Today's Impression & Plan: Overall stable with improved abdominal pain after admission to the hospital and treatment. Findings on the CT scan are equivocal. Even if he has minor acute appendicitis, the patient can benefit from antimicrobial therapy alone since he is at high risk for surgical intervention. Fortunately, I do not see any indication for acute surgical intervention and strongly recommend medical management of the issues. Explained to patient and discussed with team. Answered all questions to the best my ability. Patient appeared to understand and agree with the plans. With above assessment, I've recommended the following for today: 1. Cont current management 2. Continue on broad-spectrum antimicrobials 3. Treat symptoms 4. Labs in a.m. Thank you again for your great care of this very pleasant patient and wonderful family. If there are any questions, please feel free to call me at [phone]. Disclaimer: Inadvertent spelling or grammatical errors are likely due to EHR/ dictation software use and do not reflect on the overall quality of patient care. Updated Clinical Summary: A very pleasant 46-year-old gentleman with history of Crohn's disease as well as prior surgery for anal fistula approximately 5 years ago, and a torn meniscus repair on the left knee, presenting with abdominal pain associated with a few weeks' duration of diarrhea. S/p an otherwise uncomplicated diagnostic laparoscopy was converted first to hand assist and then to open exploration when perforated sigmoid colon was found and it was resected with a Deena type procedure and end colostomy as well as core needle liver biopsy, segment 5, due to presence of fatty liver disease, lysis of adhesions, and abdominal lavage on 02/01/17. Failed to wean off the vent through 02/06/17. PE was evaluated 02/07/[address] angio and no evidence found. CT abd/pelvis also did not show actionable findings (no abscess; bowel thickening somewhat expected). Extubated 02/07/17. MONORAIL OPERATOR called early am 02/13/17 with a few minutes coding, requiring intubation and transfer to ICU. Fortunately, mentally appears to be intact and not on pressors. Lactic acid and CO2 normal with benign appearing abd and viable ostomy. Complicated by fascia dehiscence. S/p exploration of abdomen through recent laparotomy, primary closure of fascia and abdominal lavage on 02/15/17. Reintubated 02/25/17 for bronchoscopy to remove mucus plug. Extubated 02/28/17. Re-intubated 03/05/17 due to respiratory failure and hypoxia. 03/05/17: HIV negative and hepatitis B&C neg. Brain MRI did not contribute to the diagnosis, but no mass effect, obvious hemorrhage or other explanatory findings. S/p trach and PEG 03/09/17. Weaned off the vent by 03/22/17. DC to rehab on 03/22/17. Trach out end of April 2017. COMORBIDITIES: 1. Crohn disease with perforation of sigmoid colon and sepsis. S/p an otherwise uncomplicated diagnostic laparoscopy was converted first to hand assist and then to open exploration when perforated sigmoid colon was found and it was resected with a Deena type procedure and end colostomy as well as core needle liver biopsy, segment 5, due to presence of fatty liver disease, lysis of adhesions, and abdominal lavage on 02/01/17. Complicated by respiratory failure, return trip to ICU and fascia dehiscence. S/p exploration of abdomen through recent laparotomy, primary closure of fascia and abdominal lavage on 02/15. 2. Repair of a fistula approximately 5 years ago. 3. Torn meniscus on the left knee status post repair. 4. S/p trach and PEG 03/09/17 at [facility]. Subjective: Readmitted for abdominal pain and concerns for possible acute appendicitis and finding of known cholelithiasis. Reports significantly improved since admission with no abdominal pain currently. No other major events or complications; reports slightly stronger and able to tolerate p.o.'s. Has been continuing to slowly gain weight. No other major complaints including no pain complaints. Objective: Vitals: See below Exam: GENERAL: On exam, the patient was laying in bed and appeared to be comfortable and in no acute distress. Breathing room air. Eyes open and responds to voice. ABDOMEN: Soft, nontender and nondistended. Incision wound vac dressings no longer present and his incisions appear to have healed completely and are clean without any evidence of obvious erythema, edema, discharge, or hernia. Surgery drain site clean. Ostomy pink and viable; some air and stool in the bag. There are no peritoneal signs or guarding. PEG in place and tube insertion site clean. SKIN: Skin appears to be pink and feels warm to touch. NEUROLOGIC: Patient is awake, alert, and follows commands appropriately. Consultation Date/Type/Reason Admit Date/Time Jun 11, 2017 at 01:41 Constitutional: improved, no complaints Eyes: no complaints ENT: no complaints Respiratory: no complaints Cardiovascular: no complaints Gastrointestinal: other (See HPI) Genitourinary: no complaints Musculoskeletal: no complaints Skin: no complaints Neurologic: no complaints Endocrine: no complaints Lymphatic: no complaints Psychological: nl mood/affect, no complaints Immunologic: no complaints Social History Alcohol Use: sober Smoking Status: Former smoker Drug Use: none Exam/Review of Systems Vital Signs Vitals Vital Signs Date Time Temp Pulse Resp B/P Pulse Ox O2 Delivery O2 Flow Rate FiO2 06/11/17 20:57 62 06/11/17 15:36 98.1 20 110/68 99 06/10/17 23:38 Room Air Results Result Diagram: 06/11/17 0643 06/11/17 0643 Results 24 hrs Laboratory Tests Test 06/10/17 22:42 06/11/17 06:43 White Blood Count 14.6 H 8.9 # Red Blood Count 5.56 # 4.11 #L Hemoglobin 14.6 # 10.8 #L Hematocrit 45.3 # 33.5 #L Mean Corpuscular Volume 81.5 L 81.5 L Mean Corpuscular Hemoglobin 26.3 L 26.3 L Mean Corpuscular Hemoglobin Concent 32.2 32.2 Red Cell Distribution Width 15.0 H 15.0 H Platelet Count 406 # 304 # Mean Platelet Volume 10.2 9.8 Neutrophils % 86.3 H 67.3 Lymphocytes % 8.2 L 18.2 Monocytes % 4.1 8.6 Eosinophils % 0.8 5.1 Basophils % 0.3 0.5 Nucleated Red Blood Cells % 0.0 0.0 Neutrophils # (Manual) 12.6 H 6.0 Lymphocytes # 1.2 1.6 Monocytes # 0.6 0.8 Eosinophils # 0.1 0.5 Basophils # 0.1 0.0 Nucleated Red Blood Cells # 0.0 0.0 Sodium Level 143 143 Potassium Level 4.1 3.7 Chloride Level 97 107 # Carbon Dioxide Level 27 24 Anion Gap 23 H 16 # Blood Urea Nitrogen 21 H 17 Creatinine 1.07 0.89 Glucose Level 103 93 Calcium Level 13.3 *H 11.0 #H Total Bilirubin 0.1 L Direct Bilirubin 0.00 Indirect Bilirubin 0.1 Aspartate Amino Transf (AST/SGOT) 17 Alanine Aminotransferase (ALT/SGPT) 16 Alkaline Phosphatase 128 H Total Protein 9.7 H Albumin 4.6 Globulin 5.10 H Albumin/Globulin Ratio 0.90 Lipase 51 Phosphorus Level 3.6 Magnesium Level 1.6 L Medications Medications Current Medications Morphine Sulfate 2 mg 2 mg Q4H PRN IV pain; Start 06/11/17 at 04:00 Sodium Chloride (NS) 1,000 ml @ 100 mls/hr Q10H IV Last administered on 13:45; Admin Dose 100 MLS/HR; Start 06/11/17 at 04:00 Ondansetron HCl (Zofran Inj) 4 mg Q6H PRN IV NAUSEA AND/OR VOMITING; Start at 04:00 Enoxaparin Sodium (Lovenox) 40 mg DAILY SC Last administered on 06/11/17 10:32 ; Admin Dose 40 MG; Start 06/11/17 at 09:00 Famotidine 20 mg 20 mg BID IV Last administered on 06/11/17 10:32; Admin Dose 20 MG; Start 06/11/17 at 09:00 Piperacillin Sod/ Tazobactam Sod (Zosyn 3.375gm/ 100 ml (Pmx)) 100 ml @ 200 mls /hr Q6 IVPB Last administered on 06/11/17 17:49; Admin Dose 200 MLS/HR; Start 06/11/17 at 13:00 TI HILTON M.D. Jun 11, 2017 21:08
[2017-06-12] VITALS (11 sets, daily range): BP systolic 115–145; BP diastolic 60–76; PULSE 50–68; RESP 16–19
[2017-06-12] MEDS: PIPER-TAZO 3.375 GM IV (PMX) 100 ML IVPB SCH ×4 (06:00→18:00)
[2017-06-12] MEDS: SOD CHLORIDE 0.9% 1,000 ML IV SCH ×3 (07:00→12:34)
[2017-06-12 07:09] LABS: BASOPHIL # 0.1 10^3/ul (0.0-0.1); BASOPHILS % 0.6 % (0.0-2.0); EOSINOPHILS # 0.6 10^3/ul (0.0-0.5); EOSINOPHILS % 5.3 % (0.0-7.0); HEMATOCRIT 35.6 % (42.0-52.0); HEMOGLOBIN 11.3 g/dl (14.0-18.0); LYMPHOCYTES # 1.2 10^3/ul (0.8-2.9); LYMPHOCYTES % 10.9 % (15.0-51.0); MEAN CORPUSCULAR HEMOGLOBIN 26.2 pg (29.0-33.0); MEAN CORPUSCULAR HGB CONC 31.7 g/dl (32.0-37.0); MEAN CORPUSCULAR VOLUME 82.6 fl (82.0-101.0); MEAN PLATELET VOLUME 10.6 fl (7.4-10.4); MONOCYTE # 0.6 10^3/ul (0.3-0.9); NEUTROPHILS % 76.8 % (39.0-77.0); PLATELET COUNT 313 10^3/UL (140-415); RED BLOOD COUNT 4.31 10^6/ul (4.70-6.10); RED CELL DISTRIBUTION WIDTH 14.9 % (11.5-14.5); WHITE BLOOD COUNT 10.6 10^3/ul (4.8-10.8)
[2017-06-12 07:22] LABS: CALCIUM 11.3 mg/dl (8.4-10.2); POTASSIUM 3.9 mmol/L (3.5-5.1)
[2017-06-12] MEDS: FAMOTIDINE 20 MG INJ IV SCH ×2 (09:23→21:00)
[2017-06-12] MEDS: ENOXAPARIN 40 MG/0.4 ML SYG SC SCH (09:23)
--- NOTE | 2017-06-12 15:42 | PN ---
Date/Time of Note Date/Time of Note DATE: 06/12/17 TIME: 15:38 Assessment/Plan VTE Prophylaxis VTE Prophylaxis Intervention: LMWH Lines/Catheters IV Catheter Type (from Nrs): Peripheral IV Assessment/Plan Chief Complaint/Hosp Course 46 yo male wiht h/o Crohns leading to mild protein-calorie malnutrition, s/p prolonged stay requiring Hartmanss w ostomy and trach/PEG. Now here wiht likely appendicitis Appendicitis: - Continue medical management w abx, doing very well Crohns: - Abd MRI per [facility] - Has never been on biologic, management per GI - Check nutrition labs PEG can be removed, per Dr Kuo Problems: Subjective 24 Hr Interval Summary Free Text/Dictation Pain much improved No need for surgery per Dr Kuo Wants to eat food Exam/Review of Systems Vital Signs Vitals Vital Signs Date Time Temp Pulse Resp B/P Pulse Ox O2 Delivery O2 Flow Rate FiO2 06/12/17 15:32 98.2 62 119/70 06/12/17 15:19 19 96 06/12/17 04:00 Room Air Intake and Output 06/11/17 06/11/17 06/12/17 15:00 23:00 07:00 Intake Total 1100 ml 100 ml 1400 ml Output Total 1350 ml Balance 1100 ml -1250 ml 1400 ml Exam Well appearing no distress Abd soft nt nd PEG, ostomy No edema Results Result Diagram: 06/12/17 0520 06/12/17 0520 Results 24 hrs Laboratory Tests Test 06/12/17 05:20 White Blood Count 10.6 Red Blood Count 4.31 L Hemoglobin 11.3 L Hematocrit 35.6 L Mean Corpuscular Volume 82.6 Mean Corpuscular Hemoglobin 26.2 L Mean Corpuscular Hemoglobin Concent 31.7 L Red Cell Distribution Width 14.9 H Platelet Count 313 Mean Platelet Volume 10.6 H Neutrophils % 76.8 Lymphocytes % 10.9 L Monocytes % 6.0 Eosinophils % 5.3 Basophils % 0.6 Nucleated Red Blood Cells % 0.0 Neutrophils # (Manual) 8.1 H Lymphocytes # 1.2 Monocytes # 0.6 Eosinophils # 0.6 H Basophils # 0.1 Nucleated Red Blood Cells # 0.0 Sodium Level 145 H Potassium Level 3.9 Chloride Level 106 Carbon Dioxide Level 24 Anion Gap 19 H Blood Urea Nitrogen 12 Creatinine 1.00 Glucose Level 63 #L Calcium Level 11.3 H Medications Medications Current Medications Morphine Sulfate 2 mg 2 mg Q4H PRN IV pain; Start 06/11/17 at 04:00 Sodium Chloride (NS) 1,000 ml @ 100 mls/hr Q10H IV Last administered on 12:34; Admin Dose 100 MLS/HR; Start 06/11/17 at 04:00 Ondansetron HCl (Zofran Inj) 4 mg Q6H PRN IV NAUSEA AND/OR VOMITING; Start at 04:00 Enoxaparin Sodium (Lovenox) 40 mg DAILY SC Last administered on 06/12/17 09:23 ; Admin Dose 40 MG; Start 06/11/17 at 09:00 Famotidine 20 mg 20 mg BID IV Last administered on 06/12/17 09:23; Admin Dose 20 MG; Start 06/11/17 at 09:00 Piperacillin Sod/ Tazobactam Sod (Zosyn 3.375gm/ 100 ml (Pmx)) 100 ml @ 200 mls /hr Q6 IVPB Last administered on 06/12/17 12:34; Admin Dose 200 MLS/HR; Start 06/11/17 at 13:00 SAY PIEDRA MD Jun 12, 2017 15:42
--- NOTE | 2017-06-12 17:58 | PN ---
Date/Time of Note Date/Time of Note DATE: 06/12/17 TIME: 17:55 Assessment/Plan VTE Prophylaxis VTE Prophylaxis Intervention: SCD's Lines/Catheters IV [facility] (from [facility]): Peripheral IV Assessment/Plan Assessment/Plan Assessment: * Rule out acute appendicitis * Cholelithiasis/rule out choledocholithiasis * Crohn's disease/rule out exacerbation * Post sigmoid perforation/post Deena procedure * Post trach/removed * Post PEG * History of ethanol abuse currently abstinent Plan: * Surgical consultation noted * Once cleared by surgery MRI MRCP * Will also benefit from CT enterography to assess activity of Crohn's * Colonoscopy will have to be deferred until definite exclusion of appendicitis * case discussed with Dr Jackson * Further orders will depend on clinical course Subjective 24 Hr Interval Summary Free Text/Dictation * Course reviewed with RN * Patient seen and examined * No untoward incident overnight Exam/Review of Systems Vital Signs Vitals Vital Signs Date Time Temp Pulse Resp B/P Pulse Ox O2 Delivery O2 Flow Rate FiO2 06/12/17 16:05 63 06/12/17 15:32 98.2 119/70 06/12/17 15:19 19 96 06/12/17 04:00 Room Air Intake and Output 06/11/17 06/11/17 06/12/17 15:00 23:00 07:00 Intake Total 1100 ml 100 ml 1400 ml Output Total 1350 ml Balance 1100 ml -1250 ml 1400 ml Exam Constitutional: alert, frail Neck: non-tender, supple Respiratory: clear to auscultation, normal air movement Cardiovascular: nl pulses, regular rate and rhythm Gastrointestinal: non-tender, other (colostomy), soft Musculoskeletal: nl extremities to inspection Extremities: normal pulses Neurological: nl speech Results Result Diagram: 06/12/17 0520 06/12/17 0520 Results 24 hrs Laboratory Tests Test 06/12/17 05:20 White Blood Count 10.6 Red Blood Count 4.31 L Hemoglobin 11.3 L Hematocrit 35.6 L Mean Corpuscular Volume 82.6 Mean Corpuscular Hemoglobin 26.2 L Mean Corpuscular Hemoglobin Concent 31.7 L Red Cell Distribution Width 14.9 H Platelet Count 313 Mean Platelet Volume 10.6 H Neutrophils % 76.8 Lymphocytes % 10.9 L Monocytes % 6.0 Eosinophils % 5.3 Basophils % 0.6 Nucleated Red Blood Cells % 0.0 Neutrophils # (Manual) 8.1 H Lymphocytes # 1.2 Monocytes # 0.6 Eosinophils # 0.6 H Basophils # 0.1 Nucleated Red Blood Cells # 0.0 Sodium Level 145 H Potassium Level 3.9 Chloride Level 106 Carbon Dioxide Level 24 Anion Gap 19 H Blood Urea Nitrogen 12 Creatinine 1.00 Glucose Level 63 #L Calcium Level 11.3 H Medications Medications Current Medications Morphine Sulfate (morphine) 2 mg Q4H PRN IV pain; Start 06/11/17 at 04:00 Ondansetron HCl (Zofran Inj) 4 mg Q6H PRN IV NAUSEA AND/OR VOMITING; Start at 04:00 Enoxaparin Sodium (Lovenox) 40 mg DAILY SC Last administered on 06/12/17 09:23 ; Admin Dose 40 MG; Start 06/11/17 at 09:00 Famotidine 20 mg 20 mg BID IV Last administered on 06/12/17 09:23; Admin Dose 20 MG; Start 06/11/17 at 09:00 Piperacillin Sod/ Tazobactam Sod (Zosyn 3.375gm/ 100 ml (Pmx)) 100 ml @ 200 mls /hr Q6 IVPB Last administered on 06/12/17 12:34; Admin Dose 200 MLS/HR; Start 06/11/17 at 13:00 VANCE NESBITT NP Jun 12, 2017 17:58
--- NOTE | 2017-06-12 19:14 | PN ---
Date/Time of Note Date/Time of Note DATE: 06/12/17 TIME: 19:12 Assessment/Plan Lines/Catheters IV Catheter Type (from Nrsg): Peripheral IV Assessment/Plan Assessment/Plan [facility] Progress Note Date of Service: 06/12/17 Today's Impression & Plan: Overall stable with no further abdominal pain. Okay from my standpoint to discharge home. Explained to patient and discussed with team. Answered all questions to the best my ability. Patient appeared to understand and agree with the plans. With above assessment, I've recommended the following for today: 1. Consider discharging home 2. Consider removing PEG during this hospitalization Thank you again for your great care of this very pleasant patient and wonderful family. If there are any questions, please feel free to call me at [phone]. Disclaimer: Inadvertent spelling or grammatical errors are likely due to EHR/ dictation software use and do not reflect on the overall quality of patient care. Updated Clinical Summary: A very pleasant 46-year-old gentleman with history of Crohn's disease as well as prior surgery for anal fistula approximately 5 years ago, and a torn meniscus repair on the left knee, presenting with abdominal pain associated with a few weeks' duration of diarrhea. S/p an otherwise uncomplicated diagnostic laparoscopy was converted first to hand assist and then to open exploration when perforated sigmoid colon was found and it was resected with a Deena type procedure and end colostomy as well as core needle liver biopsy, segment 5, due to presence of fatty liver disease, lysis of adhesions, and abdominal lavage on 02/01/17. Failed to wean off the vent through 02/06/17. PE was evaluated 02/07/[address] angio and no evidence found. CT abd/pelvis also did not show actionable findings (no abscess; bowel thickening somewhat expected). Extubated 02/07/17. WELL HEAD PUMPER called early am 02/13/17 with a few minutes coding, requiring intubation and transfer to ICU. Fortunately, mentally appears to be intact and not on pressors. Lactic acid and CO2 normal with benign appearing abd and viable ostomy. Complicated by fascia dehiscence. S/p exploration of abdomen through recent laparotomy, primary closure of fascia and abdominal lavage on 02/15/17. Reintubated 02/25/17 for bronchoscopy to remove mucus plug. Extubated 02/28/17. Re-intubated 03/05/17 due to respiratory failure and hypoxia. 03/05/17: HIV negative and hepatitis B&C neg. Brain MRI did not contribute to the diagnosis, but no mass effect, obvious hemorrhage or other explanatory findings. S/p trach and PEG 03/09/17. Weaned off the vent by 03/22/17. DC to rehab on 03/22/17. Trach out end of April 2017. COMORBIDITIES: 1. Crohn disease with perforation of sigmoid colon and sepsis. S/p an otherwise uncomplicated diagnostic laparoscopy was converted first to hand assist and then to open exploration when perforated sigmoid colon was found and it was resected with a Deena type procedure and end colostomy as well as core needle liver biopsy, segment 5, due to presence of fatty liver disease, lysis of adhesions, and abdominal lavage on 02/01/17. Complicated by respiratory failure, return trip to ICU and fascia dehiscence. S/p exploration of abdomen through recent laparotomy, primary closure of fascia and abdominal lavage on 02/15. 2. Repair of a fistula approximately 5 years ago. 3. Torn meniscus on the left knee status post repair. 4. S/p trach and PEG 03/09/17 at [facility]. Subjective: Overall has remained stable without any major events. No further abdominal pain complaints. Feels well. + Bowel activity Objective: Vitals: See below Exam: GENERAL: On exam, the patient was laying in bed and appeared to be comfortable and in no acute distress. Breathing room air. Eyes open and responds to voice. ABDOMEN: Soft, nontender and nondistended. Incision wound vac dressings no longer present and his incisions appear to have healed completely and are clean without any evidence of obvious erythema, edema, discharge, or hernia. Surgery drain site clean. Ostomy pink and viable; some air and stool in the bag. There are no peritoneal signs or guarding. PEG in place and tube insertion site clean. SKIN: Skin appears to be pink and feels warm to touch. NEUROLOGIC: Patient is awake, alert, and follows commands appropriately. Exam/Review of Systems Vital Signs Vitals Vital Signs Date Time Temp Pulse Resp B/P Pulse Ox O2 Delivery O2 Flow Rate FiO2 06/12/17 16:05 63 06/12/17 15:32 98.2 119/70 06/12/17 15:19 19 96 06/12/17 04:00 Room Air Intake and Output 06/11/17 06/11/17 06/12/17 15:00 23:00 07:00 Intake Total 1100 ml 100 ml 1400 ml Output Total 1350 ml Balance 1100 ml -1250 ml 1400 ml Results Result Diagram: 06/12/17 0520 06/12/17 0520 TI HILTON M.D. Jun 12, 2017 19:14
[2017-06-12] MEDS: metroNIDAZOLE 500 MG TAB PO SCH (21:18)
[2017-06-12] MEDS: AMOXICILLIN/CLAV 875 MG TAB PO SCH (21:18)
[2017-06-13] VITALS (13 sets, daily range): BP systolic 106–136; BP diastolic 60–79; PULSE 52–63; RESP 16–19
[2017-06-13] MEDS: PIPER-TAZO 3.375 GM IV (PMX) 100 ML IVPB SCH ×2 (05:47)
[2017-06-13] MEDS: metroNIDAZOLE 500 MG TAB PO SCH ×3 (06:05→21:54)
[2017-06-13] MEDS: ENOXAPARIN 40 MG/0.4 ML SYG SC SCH (09:00)
[2017-06-13] MEDS: FAMOTIDINE 20 MG INJ IV SCH (09:00)
[2017-06-13] MEDS: AMOXICILLIN/CLAV 875 MG TAB PO SCH ×2 (09:02→21:54)
--- NOTE | 2017-06-13 11:01 | PN ---
Date/Time of Note Date/Time of Note DATE: 06/13/17 TIME: 10:56 Assessment/Plan VTE Prophylaxis VTE Prophylaxis Intervention: SCD's Lines/Catheters IV Catheter Type (from Nrsg): Peripheral IV Assessment/Plan Assessment/Plan Assessment: * Abdominal pain resolved * Cholelithiasis/rule out choledocholithiasis * Crohn's disease/rule out exacerbation * Post sigmoid perforation/post Deena procedure * Post trach/removed * Post PEG * History of ethanol abuse currently abstinent Plan: * continue present management * Stable for outpatient management * Follow up at our clinic in 4 weeks in [place] if discharged * case discussed with Dr Jackson Subjective 24 Hr Interval Summary Free Text/Dictation * Course reviewed with RN * Patient seen and examined * No abdominal pain * Afebrile Exam/Review of Systems Vital Signs Vitals Vital Signs Date Time Temp Pulse Resp B/P Pulse Ox O2 Delivery O2 Flow Rate FiO2 06/13/17 08:05 55 06/13/17 07:46 98.6 18 109/63 98 06/12/17 04:00 Room Air Intake and Output 06/12/17 06/12/17 06/13/17 14:59 22:59 06:59 Intake Total 600 ml Balance 600 ml Exam Constitutional: alert, frail Neck: non-tender, supple Respiratory: clear to auscultation, normal air movement Cardiovascular: nl pulses, regular rate and rhythm Gastrointestinal: soft Musculoskeletal: nl extremities to inspection Extremities: normal pulses Skin: nl turgor Results Result Diagram: 06/12/1751906/12/17519 Medications Medications Current Medications Morphine Sulfate (morphine) 2 mg Q4H PRN IV pain; Start 06/11/17 at 04:00 Ondansetron HCl (Zofran Inj) 4 mg Q6H PRN IV NAUSEA AND/OR VOMITING; Start at 04:00 Enoxaparin Sodium (Lovenox) 40 mg DAILY SC Last administered on 06/12/17 09:23 ; Admin Dose 40 MG; Start 06/11/17 at 09:00 Famotidine (Pepcid Iv) 20 mg BID IV Last administered on 06/12/17 09:23; Admin Dose 20 MG; Start 06/11/17 at 09:00 Amoxicillin/ Clavulanate Potassium (Augmentin) 875 mg BID PO Last administered on 06/13/17 09:02; Admin Dose 875 MG; Start 06/12/17 at 21:00 Metronidazole (Flagyl) 500 mg Q8 PO Last administered on 06/13/17 06:05; Admin Dose 500 MG; Start 06/12/17 at 22:00 VANCE NESBITT NP Jun 13, 2017 11:01
--- NOTE | 2017-06-13 12:02 | PN ---
Date/Time of Note Date/Time of Note DATE: 06/13/17 TIME: 11:52 Assessment/Plan VTE Prophylaxis VTE Prophylaxis Intervention: SCD's Lines/Catheters IV Catheter Type (from Nrsg): Peripheral IV Assessment/Plan Assessment/Plan 46 yo male wiht h/o Crohns leading to mild protein-calorie malnutrition, s/p prolonged stay requiring Hartmanss w ostomy and trach/PEG. Now here wiht likely appendicitis Acute Appendicitis: no sugical intervention needed as per G surg - Continue medical management w abx, doing very well Crohns: - MRCP has been ordered - Has never been on biologic, management per GI - Check nutrition labs SCD for DVT prophylaxis, pt will need IV access for MRCP- if not able to place it then call ICU Nurse for it Subjective 24 Hr Interval Summary Free Text/Dictation pain better, tolerating po diet well, CT showed dilated CBD, Exam/Review of Systems Vital Signs Vitals Vital Signs Date Time Temp Pulse Resp B/P Pulse Ox O2 Delivery O2 Flow Rate FiO2 06/13/17 08:05 55 06/13/17 07:46 98.6 18 109/63 98 06/12/17 04:00 Room Air Intake and Output 06/12/17 06/12/17 06/13/17 15:00 23:00 07:00 Intake Total 600 ml Balance 600 ml Exam Constitutional: alert Psych: no complaints Head: normocephalic Eyes: nl conjunctiva ENMT: nl external ears & nose Neck: non-tender, supple Respiratory: clear to auscultation, diminished breath sounds, normal air movement Cardiovascular: nl pulses, regular rate and rhythm Gastrointestinal: non-tender, soft Extremities: normal pulses Neurological: WORK DISTRIBUTOR II-XII intact Skin: nl turgor Lymph: nl lymph nodes Results Result Diagram: 06/12/1751906/12/17519 Medications Medications Current Medications Morphine Sulfate (morphine) 2 mg Q4H PRN IV pain; Start 06/11/17 at 04:00 Ondansetron HCl (Zofran Inj) 4 mg Q6H PRN IV NAUSEA AND/OR VOMITING; Start at 04:00 Enoxaparin Sodium (Lovenox) 40 mg DAILY SC Last administered on 06/12/17t 09:23 ; Admin Dose 40 MG; Start 06/11/17 at 09:00 Famotidine (Pepcid Iv) 20 mg BID IV Last administered on 06/12/17 09:23; Admin Dose 20 MG; Start 06/11/17 at 09:00 Amoxicillin/ Clavulanate Potassium (Augmentin) 875 mg BID PO Last administered on 06/13/17 09:02; Admin Dose 875 MG; Start 06/12/17 at 21:00 Metronidazole (Flagyl) 500 mg Q8 PO Last administered on 06/13/17 06:05; Admin Dose 500 MG; Start 06/12/17 at 22:00 MAVERICK MAYNARD MD Jun 13, 2017 12:02
[2017-06-13] MEDS ORDERED: LORA10TA3 PO (13:10)
[2017-06-13] MEDS: LORATADINE 10 MG TAB PO SCH (13:46)
[2017-06-13 14:20] LABS: BASOPHILS % 0.5 % (0.0-2.0); EOSINOPHILS # 0.5 10^3/ul (0.0-0.5); EOSINOPHILS % 5.9 % (0.0-7.0); HEMATOCRIT 37.6 % (42.0-52.0); HEMOGLOBIN 12.3 g/dl (14.0-18.0); LYMPHOCYTES # 1.3 10^3/ul (0.8-2.9); LYMPHOCYTES % 14.4 % (15.0-51.0); MEAN CORPUSCULAR HEMOGLOBIN 26.5 pg (29.0-33.0); MEAN CORPUSCULAR HGB CONC 32.7 g/dl (32.0-37.0); MEAN CORPUSCULAR VOLUME 80.9 fl (82.0-101.0); MEAN PLATELET VOLUME 9.8 fl (7.4-10.4); MONOCYTE # 0.7 10^3/ul (0.3-0.9); MONOCYTES % 7.6 % (0.0-11.0); NEUTROPHILS % 71.4 % (39.0-77.0); PLATELET COUNT 329 10^3/UL (140-415); RED BLOOD COUNT 4.65 10^6/ul (4.70-6.10); RED CELL DISTRIBUTION WIDTH 14.8 % (11.5-14.5); WHITE BLOOD COUNT 8.8 10^3/ul (4.8-10.8)
[2017-06-13 14:40] LABS: IRON 25 ug/dl (35-150)
[2017-06-13 14:43] LABS: CALCIUM 10.8 mg/dl (8.4-10.2); CREATININE 0.83 mg/dl (0.61-1.24); POTASSIUM 3.8 mmol/L (3.5-5.1)
[2017-06-13 14:49] LABS: TOTAL IRON BINDING CAPACITY 224 ug/dl (241-421)
--- NOTE | 2017-06-13 16:25 | RADRPT ---
PROCEDURE: MRCP. CLINICAL INDICATION: Elevated liver function tests. TECHNIQUE: MRCP was performed. The following sequences were obtained: Three plane gradient echo localizers, coronal gradient echo images, breath hold axial T2-weighted fat saturation images, kelsea nal T2-weighted images, axial 3-D LAVA images, axial T2-weighted breath hold fast spin echo images, and 3-D coronal rotating MIP images of the biliary tree. COMPARISON: Right upper quadrant abdomen ultrasound dated 06/11/2070. CT scan of the abdomen and pelvis dated 06/10/2017. FINDINGS: The liver is normal in size. There is normal signal intensity within the liver. There is an irregul ar fluid collection in the right subphrenic space as seen on prior CT scan measuring approximately 2 .7 x 4.5 cm in AP and transverse dimensions. There is no focal hepatic lesion. The spleen is normal in size and homogeneous in signal intensity. Multiple gallstones are present in the gallbladder. There is no gallbladder wall thickening or flui d around the gallbladder. The bile ducts are not dilated. The common bile duct measures 4.3 mm in diameter. There are small filling defects in the distal common bile duct as seen on prior CT scan. The pancreatic duct is grossly normal. The kidneys are grossly normal. The abdominal aorta is not dilated. IMPRESSION: 1. Irregular fluid collection in the right subphrenic space as seen on prior CT scan, unchanged. 2. Gallstones in the gallbladder. No evidence of cholecystitis. 3. Small filling defects in the distal common bile duct which may be stones as seen on prior CT sca n. 4. Otherwise unremarkable study. RPTAT: QQ .Rogelio Vera MD, Date Time Electronically viewed and signed by .Rogelio Vera MD, MD on 06/13/2017 16:25 .R/
[2017-06-13] MEDS: FAMOTIDINE 20 MG TAB PO SCH (21:54)
[2017-06-14] VITALS (8 sets, daily range): BP systolic 99–132; BP diastolic 60–76; PULSE 53–66; RESP 19
[2017-06-14] MEDS: metroNIDAZOLE 500 MG TAB PO SCH (06:03)
[2017-06-14 07:04] LABS: BASOPHIL # 0.1 10^3/ul (0.0-0.1); BASOPHILS % 0.6 % (0.0-2.0); EOSINOPHILS # 0.6 10^3/ul (0.0-0.5); EOSINOPHILS % 6.2 % (0.0-7.0); HEMATOCRIT 37.2 % (42.0-52.0); LYMPHOCYTES # 1.4 10^3/ul (0.8-2.9); LYMPHOCYTES % 16.3 % (15.0-51.0); MEAN CORPUSCULAR HEMOGLOBIN 26.1 pg (29.0-33.0); MEAN CORPUSCULAR HGB CONC 32.3 g/dl (32.0-37.0); MEAN CORPUSCULAR VOLUME 80.9 fl (82.0-101.0); MEAN PLATELET VOLUME 10.3 fl (7.4-10.4); MONOCYTE # 0.7 10^3/ul (0.3-0.9); MONOCYTES % 7.9 % (0.0-11.0); NEUTROPHILS % 68.7 % (39.0-77.0); PLATELET COUNT 310 10^3/UL (140-415); RED CELL DISTRIBUTION WIDTH 14.8 % (11.5-14.5); WHITE BLOOD COUNT 8.8 10^3/ul (4.8-10.8)
[2017-06-14 07:27] LABS: INR 0.97; PROTIME 12.9 Sec (12.2-14.2)
[2017-06-14 07:28] LABS: PARTIAL THROMBOPLASTIN TIME 29.3 Sec (25.0-35.0)
[2017-06-14 07:28] LABS: ALBUMIN 3.4 g/dl (3.3-4.9); ALBUMIN/GLOBULIN RATIO 0.85; CALCIUM 11.1 mg/dl (8.4-10.2); CREATININE 0.87 mg/dl (0.61-1.24); POTASSIUM 3.6 mmol/L (3.5-5.1); TOTAL PROTEIN 7.4 g/dl (6.1-8.1)
[2017-06-14] MEDS: LORATADINE 10 MG TAB PO SCH (08:17)
[2017-06-14] MEDS: FAMOTIDINE 20 MG TAB PO SCH (08:17)
[2017-06-14] MEDS: ENOXAPARIN 40 MG/0.4 ML SYG SC SCH (08:17)
[2017-06-14] MEDS: AMOXICILLIN/CLAV 875 MG TAB PO SCH (08:17)
--- NOTE | 2017-06-14 12:23 | PDOCDIS ---
Discharge Instructions CONDITION Patient Condition: Stable HOME CARE INSTRUCTIONS: Diet Instructions: Regular FOLLOW UP/APPOINTMENTS Follow-up Plan 1.Follow-up with in 1week [address] [place] [address] Office 2.Follow-up with in 4weeks [id number] [facility] [address] [place] [address] Office 2.Follow up with primary care physician in 1 week If you don't have one please let someone know, we can give you resources that may help you pick one. You may also call your insurance company to assign one to you. Review your medication list with your nurse before leaving and if you need new prescriptions please let your nurse know. I may have made changes to your home medications or given you new prescriptions, please let your primary doctor know as well. Stay compliant with your medications and report any side effects to your PCP or pharmacist. Return to the ER if you have any concerns and cannot reach your doctors or call your insurance company, they usually have a nurse that can help you. 3. Call 911 or go to the nearest emergency room if experiencing loss of consciousness, dizziness, chest pain, shortness of breath, vomiting/abdominal pain, speech difficulties, motor weakness or any unusual symptoms. HOLLEY HICKS NP Jun 14, 2017 12:23
[2017-06-14] MEDS ORDERED: METR500T PO (12:25)
[2017-06-14] MEDS ORDERED: AMOX1TAB10 PO (12:25)
[2017-06-14] MEDS ORDERED: HYDR-842 PO (12:25)
--- NOTE | 2017-06-14 12:42 | PN ---
Date/Time of Note Date/Time of Note DATE: 06/14/17 TIME: 12:41 Assessment/Plan Lines/Catheters IV Catheter Type (from Nrs): Peripheral IV Assessment/Plan Assessment/Plan [facility] Progress Note Date of Service: 06/14/17 Today's Impression & Plan: Overall stable with no further abdominal pain. MRCP with questionable stone within common bile duct. ERCP being discussed. No indication for acute surgical intervention. Explained to patient and discussed with team. Answered all questions to the best my ability. Patient appeared to understand and agree with the plans. With above assessment, I've recommended the following for today: 1. Consider discharging home after common bile duct issue has been resolved 2. Consider removing PEG during this hospitalization Thank you again for your great care of this very pleasant patient and wonderful family. If there are any questions, please feel free to call me at [phone]. Disclaimer: Inadvertent spelling or grammatical errors are likely due to EHR/ dictation software use and do not reflect on the overall quality of patient care. Updated Clinical Summary: A very pleasant 46-year-old gentleman with history of Crohn's disease as well as prior surgery for anal fistula approximately 5 years ago, and a torn meniscus repair on the left knee, presenting with abdominal pain associated with a few weeks' duration of diarrhea. S/p an otherwise uncomplicated diagnostic laparoscopy was converted first to hand assist and then to open exploration when perforated sigmoid colon was found and it was resected with a Deena type procedure and end colostomy as well as core needle liver biopsy, segment 5, due to presence of fatty liver disease, lysis of adhesions, and abdominal lavage on 02/01/17. Failed to wean off the vent through 02/06/17. PE was evaluated 02/07/[address] angio and no evidence found. CT abd/pelvis also did not show actionable findings (no abscess; bowel thickening somewhat expected). Extubated 02/07/17. 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 Fortunately, mentally appears to be intact and not on pressors. Lactic acid and CO2 normal with benign appearing abd and viable ostomy. Complicated by fascia dehiscence. S/p exploration of abdomen through recent laparotomy, primary closure of fascia and abdominal lavage on 02/15/17. Reintubated 02/25/17 for bronchoscopy to remove mucus plug. Extubated 02/28/17. Re-intubated 03/05/17 due to respiratory failure and hypoxia. 03/05/17: HIV negative and hepatitis B&C neg. Brain MRI did not contribute to the diagnosis, but no mass effect, obvious hemorrhage or other explanatory findings. S/p trach and PEG 03/09/17. Weaned off the vent by 03/22/17. DC to rehab on 03/22/17. Trach out end of April 2017. COMORBIDITIES: 1. Crohn disease with perforation of sigmoid colon and sepsis. S/p an otherwise uncomplicated diagnostic laparoscopy was converted first to hand assist and then to open exploration when perforated sigmoid colon was found and it was resected with a Deena type procedure and end colostomy as well as core needle liver biopsy, segment 5, due to presence of fatty liver disease, lysis of adhesions, and abdominal lavage on 02/01/17. Complicated by respiratory failure, return trip to ICU and fascia dehiscence. S/p exploration of abdomen through recent laparotomy, primary closure of fascia and abdominal lavage on 02/15. 2. Repair of a fistula approximately 5 years ago. 3. Torn meniscus on the left knee status post repair. 4. S/p trach and PEG 03/09/17 at [facility]. Subjective: Overall has remained stable without any major events. No further abdominal pain complaints. Feels well. + Bowel activity. MRCP done yesterday showing possible defect in common bile duct. Objective: Vitals: See below Exam: GENERAL: On exam, the patient was laying in bed and appeared to be comfortable and in no acute distress. Breathing room air. Eyes open and responds to voice. ABDOMEN: Soft, nontender and nondistended. Incision wound vac dressings no longer present and his incisions appear to have healed completely and are clean without any evidence of obvious erythema, edema, discharge, or hernia. Surgery drain site clean. Ostomy pink and viable; some air and stool in the bag. There are no peritoneal signs or guarding. PEG in place and tube insertion site clean. SKIN: Skin appears to be pink and feels warm to touch. NEUROLOGIC: Patient is awake, alert, and follows commands appropriately. Exam/Review of Systems Vital Signs Vitals Vital Signs Date Time Temp Pulse Resp B/P Pulse Ox O2 Delivery O2 Flow Rate FiO2 06/14/17 11:20 98.0 54 19 101/67 98 06/12/17 04:00 Room Air Intake and Output 06/13/17 06/13/17 06/14/17 15:00 23:00 07:00 Intake Total 670 ml 300 ml Output Total 1400 ml 1200 ml Balance -730 ml -900 ml Results Result Diagram: 06/14/17 0600 06/14/17 0620 TI HILTON M.D. Jun 14, 2017 12:42
--- NOTE | 2017-06-14 16:29 | DS ---
Date/Time of Note Date/Time of Note DATE: 06/14/17 TIME: 16:20 Discharge Summary Admission/Discharge Info Admit Date/Time Jun 11, 2017 at 01:41 Discharge Date/Time Jun 14, 2017 at 14:00 Discharge Diagnosis 1. Mild Acute appendicitis,Equivocal responded to medical mgmt. 2. Suspected choledocholithiasis without obstruction or cholecystitis.Needs outpt monitoring 3. Crohn's disease with perforated sigmoid colon with colostomy 4. Dehydration with hypercalcemia.stable. 5. History of , anal fistula repair 6. status post trach and PEG in February 2017- Patient Condition: Stable Consults ,Surgery ,GI Procedures 06/13/17. MRCP IMPRESSION: 1. Irregular fluid collection in the right subphrenic space as seen on prior CT scan, unchanged. 2. Gallstones in the gallbladder. No evidence of cholecystitis. 3. Small filling defects in the distal common bile duct which may be stones as seen on prior CT scan. 4. Otherwise unremarkable study. Hospital Course This is a very pleasant 46-year-old male with a past medical history of Crohn's disease with perforated sigmoid colon and sepsis, colostomy, anal fistula repair , status post trach and PEG in February 2017, left knee torn meniscus repair, who presented to the emergency room with a few weeks duration of right-sided abdominal pain. Initial workup showed mild acute appendicitis, equivocal. Patient also had WBC 99475. no fevers. Patient was evaluated by surgery and recommended antimicrobial therapy. He did not have any signs of sepsis. Patient was also noted with questionable common bile duct stones which was evaluated by gastroenterology. There was no signs of obstruction in MRCP. There was no LFTs remained stable. Patient symptoms were improving with antibiotics. He was able to tolerate diet and activities. At this time, there is no indication for ERCP per gastroenterology colleagues and patient can be monitored as outpatient. Patient did not have any further pain. He was tolerating regular diet. PEG tube remained clamped. He was feeling back to baseline. Vital signs and labs remain stable. There is no further inpatient workup indicated at this time. Colostomy also functioning well.Patient was recommended to see drug regulatory affairs specialist and surgeon in clinic in 4 weeks and PEG tube may be removed if indicated at that time. Disposition: Patient will be discharged home with outpatient GI and surgery follow-up. Patient was recommended to continue antibiotics upon discharge. He verbalized discharge instructions. Approximately 60mins spent on coordinating discharge [facility] case discussed with . Home Meds Active Scripts Hydroxyzine Hcl* (Atarax*) 25 Mg Tab, 25 MG PO Q6H Y for ITCHING, #30 TAB Prov:HOLLEY HICKS V. [employer]ION[employer] SYSTEMS REPAIRER 06/14/17 Metronidazole* (Flagyl*) 500 Mg Tablet, 500 MG PO Q8 for 7 Days, #7 TAB Prov:HOLLEY HICKS V. [employer]ION[employer] SYSTEMS REPAIRER 06/14/17 Amoxicillin/Potassium Clav (Amox-Clav 875-125 mg Tablet) 875-125 mg Tab, 875 MG PO BID for 7 Days, #14 TAB Prov:HOLLEY HICKS V. [employer]ION[employer] SYSTEMS REPAIRER 06/14/17 Reported Medications Metoclopramide* (Reglan*) 5 Mg Tablet, 5 MG G-TUBE TID for NAUSEA, TAB 04/21/17 Pantoprazole Sodium (Protonix) 40 Mg Granpkt.dr, 40 MG G-TUBE 04/21/17 Folic Acid* (Folic Acid*) 1 Mg Tablet, 1 MG PO DAILY, TAB 04/21/17 Discontinued Reported Medications Loratadine* (Loratadine*) 10 Mg Tablet, 10 MG PO DAILY, #30 TAB 06/13/17 Zinc Sulfate* (Zinc Sulfate*) 220 Mg Cap, 220 MG G-TUBE DAILY, CAP 04/21/17 Acetaminophen* (Tylenol*) 325 Mg Tablet, 650 MG G-TUBE Q4H Y for MILD PAIN LEVEL 1-3, TAB 04/21/17 Thiamine* (Thiamine*) 100 Mg Tablet, 100 MG G-TUBE DAILY, TAB 04/21/17 Hydrocodone/Acetaminophen ([place] 5-325 Tablet) 1 Each Tablet, 1 EACH G-TUBE BID , TAB 04/21/17 Multivitamin (MULTI VITAMIN DAILY) 1 Each Tablet, 1 TAB G-TUBE DAILY, TAB 04/21/17 Magnesium Hydroxide* (Milk Of Magnesia*) 400 Mg/5 Ml Oral.susp, 30 ML G-TUBE Q24H for CONSTIPATION, ML 04/21/17 Na Phos,M-B/Na Phos,Di-Ba (Fleet Enema Extra) 230 Ml Enema, 230 ML RC DAILY for CONSTIPATION, ENEMA 04/21/17 Ferrous Sulfate (FEROSUL) 300 Mg/6.82 Ml Solution, 330 MG G-TUBE DAILY 04/21/17 Docusate Sodium* (Colace*) 100 Mg Capsule, 100 MG PO DAILY for CONSTIPATION, # 30 CAP 04/21/17 Albuterol Sulfate* (Albuterol Sulfate* Neb) 0.083%-3 Ml Neb, 2.5 MG NEB Q3H Y for WHEEZING AND SOB, #30 VIAL 04/21/17 Follow-up Plan OME CARE INSTRUCTIONS: Diet Instructions: Regular FOLLOW UP/APPOINTMENTS Follow-up Plan 1.Follow-up with in 1week [address] [place] [address] Office 2.Follow-up with in 4weeks [address] [place] [address] Office 2.Follow up with primary care physician in 1 week If you don't have one please let someone know, we can give you resources that may help you pick one. You may also call your insurance company to assign one to you. Review your medication list with your nurse before leaving and if you need new prescriptions please let your nurse know. I may have made changes to your home medications or given you new prescriptions, please let your primary doctor know as well. Stay compliant with your medications and report any side effects to your PCP or pharmacist. Return to the ER if you have any concerns and cannot reach your doctors or call your insurance company, they usually have a nurse that can help you. 3. Call 911 or go to the nearest emergency room if experiencing loss of consciousness, dizziness, chest pain, shortness of breath, vomiting/abdominal pain, speech difficulties, motor weakness or any unusual symptoms. Primary Care Provider [facility] Pending Labs Laboratory Tests Test 06/14/17 06:00 06/14/17 06:20 White Blood Count 8.810^3/ul (4.8-10.8) Red Blood Count 4.6010^6/ul (4.70-6.10) Hemoglobin 12.0g/dl (14.0-18.0) Hematocrit 37.2% (42.0-52.0) Mean Corpuscular Volume 80.9fl (82.0-101.0) Mean Corpuscular Hemoglobin 26.1pg (29.0-33.0) Mean Corpuscular Hemoglobin Concent 32.3g/dl (32.0-37.0) Red Cell Distribution Width 14.8% (11.5-14.5) Platelet Count 15683^3/UL (140-415) Mean Platelet Volume 10.3fl (7.4-10.4) Neutrophils % 68.7% (39.0-77.0) Lymphocytes % 16.3% (15.0-51.0) Monocytes % 7.9% (0.0-11.0) Eosinophils % 6.2% (0.0-7.0) Basophils % 0.6% (0.0-2.0) Nucleated Red Blood Cells % 0.0/100WBC (0.0-0.0) Neutrophils # (Manual) 6.110^3/ul (1.7-7.5) Lymphocytes # 1.410^3/ul (0.8-2.9) Monocytes # 0.710^3/ul (0.3-0.9) Eosinophils # 0.610^3/ul (0.0-0.5) Basophils # 0.110^3/ul (0.0-0.1) Nucleated Red Blood Cells # 0.010^3/ul (0.0-0.0) Prothrombin Time 12.9Sec (12.2-14.2) Prothrombin Time Ratio 1.0 INR International Normalized Ratio 0.97 Activated Partial Thromboplast Time 29.3Sec (25.0-35.0) Sodium Level 138mmol/L (135-144) Potassium Level 3.6mmol/L (3.5-5.1) Chloride Level 102mmol/L (97-110) Carbon Dioxide Level 26mmol/L (21-31) Anion Gap 14 (8-16) Blood Urea Nitrogen 15mg/dl (7-20) Creatinine 0.87mg/dl (0.61-1.24) Glucose Level 97mg/dl (70-220) Calcium Level 11.1mg/dl (8.4-10.2) Total Bilirubin 0.0mg/dl (0.2-1.3) Direct Bilirubin 0.00mg/dl (0.00-0.20) Indirect Bilirubin 0.0mg/dl (0-1.1) Aspartate Amino Transf (AST/SGOT) 14IU/L (15-46) Alanine Aminotransferase (ALT/SGPT) 17IU/L (13-69) Alkaline Phosphatase 81IU/L (42-121) Total Protein 7.4g/dl (6.1-8.1) Albumin 3.4g/dl (3.3-4.9) Globulin 4.00g/dl (1.3-3.2) Albumin/Globulin Ratio 0.85 Amylase Level 56U/L (11-123) Lipase 85U/L (23-300) HOLLEY HICKS NP Jun 14, 2017 16:28
== END 2017-06-14 14:00 | disposition home or self-care (01) | DRG 394 ==
LOC: E/R 17:15 → TEL 06-11 01:41
PROVIDERS: ADMIT Family Medicine; ATTEND Family Medicine
DX: K35.80 Unspecified acute appendicitis (principal); E44.1 Mild protein-calorie malnutrition; Z68.1 Body mass index [BMI] 19.9 or less, adult; E83.52 Hypercalcemia; Z93.1 Gastrostomy status; J45.909 Unspecified asthma, uncomplicated; E86.0 Dehydration; K80.50 Calculus of bile duct without cholangitis or cholecystitis without obstruction; Z93.3 Colostomy status; Z87.19 Personal history of other diseases of the digestive system; Z87.891 Personal history of nicotine dependence
CPT/HCPCS: 36415; 74177; 74181; 76705; 80048; 80053; 81003; 82150; 82728; 83540; 83690; 83735; 84100; 85025; 85610; 85730; 96374; 96375; J1650; J2270; J2405; J2543; J7030; Q9967

== ENCOUNTER → 2017-06-30 | Outpatient (CLI) | payer OTHER ==
[~2017-06-30] VITALS: Ht 188 cm; Wt 62.3 kg
[~2017-06-30] MED LIST changes: -ACET325T33 G-TUBE; -ALBU2.5V3 NEB; +AMOX1TAB10 PO; -DOCU-144 PO; -FERR300S G-TUBE; +HYDR-842 PO; -HYDR-906 G-TUBE; -MAGN400O4 G-TUBE; +METR500T PO; -MULT-761 G-TUBE; -NA P230E RC; -THIA100T10 G-TUBE; -ZINC220C5 G-TUBE
[2017-06-30 09:40] VITALS: BP 117/77; PULSE 74; RESP 18; Ht 188 cm; Wt 62.3 kg
--- NOTE | 2017-06-30 10:28 | PN ---
Date/Time of Note Date/Time of Note DATE: 06/30/17 TIME: 10:24 Assessment/Plan Assessment/Plan Assessment/Plan [facility] Progress Note Date of Service: 06/30/17 Today's Impression & Plan: Overall stable and doing relatively well. New rash seems unrelated to surgical issues and being managed by the PCP. His PEG needs to be removed. Ostomy takedown will likely be possible towards the end of this year or early 2018. D/ W patient and answered all questions. Patient appeared to understand and agree with the plans. With above assessment, I've recommended the following for today: 1. Schedule for PEG removal 2. F/u with PCP regarding rash 3. F/u with Dr. Jackson for Crohn's management and other GI issues 4. F/u with us in 2-3 months as pre-op visit; will likely need pre-op colonoscopy (Dr. Jackson to please manage) Thank you again for your great care of this very pleasant patient and wonderful family. If there are any questions, please feel free to call me at [phone]. Disclaimer: Inadvertent spelling or grammatical errors are likely due to EHR/ dictation software use and do not reflect on the overall quality of patient care. Updated Clinical Summary: A very pleasant 46-year-old gentleman with history of Crohn's disease as well as prior surgery for anal fistula approximately 5 years ago, and a torn meniscus repair on the left knee, presenting with abdominal pain associated with a few weeks' duration of diarrhea. S/p an otherwise uncomplicated diagnostic laparoscopy was converted first to hand assist and then to open exploration when perforated sigmoid colon was found and it was resected with a Deena type procedure and end colostomy as well as core needle liver biopsy, segment 5, due to presence of fatty liver disease, lysis of adhesions, and abdominal lavage on 02/01/17. Failed to wean off the vent through 02/06/17. PE was evaluated 02/07/[address] angio and no evidence found. CT abd/pelvis also did not show actionable findings (no abscess; bowel thickening somewhat expected). Extubated 02/07/17. 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 Fortunately, mentally appears to be intact and not on pressors. Lactic acid and CO2 normal with benign appearing abd and viable ostomy. Complicated by fascia dehiscence. S/p exploration of abdomen through recent laparotomy, primary closure of fascia and abdominal lavage on 02/15/17. Reintubated 02/25/17 for bronchoscopy to remove mucus plug. Extubated 02/28/17. Re-intubated 03/05/17 due to respiratory failure and hypoxia. 03/05/17: HIV negative and hepatitis B&C neg. Brain MRI did not contribute to the diagnosis, but no mass effect, obvious hemorrhage or other explanatory findings. S/p trach and PEG 03/09/17. Weaned off the vent by 03/22/17. DC to rehab on 03/22/17. Trach out end of April 2017. Short hospital visit in May 2017 without sig intervention. PEG tube removal scheduled in Jun 2017. COMORBIDITIES: 1. Crohn disease with perforation of sigmoid colon and sepsis. S/p an otherwise uncomplicated diagnostic laparoscopy was converted first to hand assist and then to open exploration when perforated sigmoid colon was found and it was resected with a Deena type procedure and end colostomy as well as core needle liver biopsy, segment 5, due to presence of fatty liver disease, lysis of adhesions, and abdominal lavage on 02/01/17. Complicated by respiratory failure, return trip to ICU and fascia dehiscence. S/p exploration of abdomen through recent laparotomy, primary closure of fascia and abdominal lavage on 02/15. 2. Repair of a fistula approximately 5 years ago. 3. Torn meniscus on the left knee status post repair. 4. S/p trach and PEG 03/09/17 at [facility]. Subjective: Overall has remained stable without any major events. No abdominal pain complaints. Feels well. + Bowel activity. No n/v/d. No f/c/c. No sob/cp. Objective: Vitals: See below Exam: GENERAL: On exam, the patient was sitting in a chair and appeared to be comfortable and in no acute distress. Breathing room air. Eyes open and responds to voice. ABDOMEN: Soft, nontender and nondistended. Incisions appear to have healed completely and are clean without any evidence of obvious erythema, edema, discharge, or hernia. Ostomy pink and viable; some air and stool in the bag. There are no peritoneal signs or guarding. PEG in place and tube insertion site clean. SKIN: Skin appears to be pink and feels warm to touch. NEUROLOGIC: Patient is awake, alert, and follows commands appropriately. Exam/Review of Systems Vital Signs Vitals Vital Signs Date Time Temp Pulse Resp B/P Pulse Ox O2 Delivery O2 Flow Rate FiO2 06/30/17 09:40 98.3 74 18 117/77 100 Room Air TI HILTON M.D. Jun 30, 2017 10:28
== END | disposition home or self-care (01) ==
LOC: HPC 09:34
PROVIDERS: ATTEND Transplant Surgery
DX: K50.90 Crohn's disease, unspecified, without complications (principal); R21 Rash and other nonspecific skin eruption; K76.0 Fatty (change of) liver, not elsewhere classified; J96.90 Respiratory failure, unspecified, unspecified whether with hypoxia or hypercapnia; K66.0 Peritoneal adhesions (postprocedural) (postinfection)

== ENCOUNTER 2017-08-04 12:40 | Day surgery (SDC) | payer OTHER ==
[~2017-08-04] VITALS: Ht 188 cm; Wt 63.9 kg
[~2017-08-04 12:40] MED LIST changes: -METR500T PO
[2017-08-04] MEDS ORDERED: [UNRECOGNIZED DRUG - OTHER] (13:40)
[2017-08-04 13:42] VITALS: Ht 188 cm; Wt 63.9 kg
[2017-08-04 13:57] VITALS: BP 106/77; PULSE 77; RESP 18
[2017-08-04] MEDS ORDERED: PROPOFOL 40 ML ONE ×2 (14:22→15:08)
[2017-08-04] MEDS ORDERED: LIDOCAINE 2% (SDV) 5 ML INJ ONE (14:22)
[2017-08-04] MEDS ORDERED: MIDAZOLAM 1 MG/ML 2 ML INJ ONE (14:42)
[2017-08-04 15:50] VITALS: BP 114/73; PULSE 72; RESP 18
--- NOTE | 2017-08-04 16:00 | OPPN ---
Date/Time of Note Date/Time of Note DATE: 08/04/17 TIME: 15:57 Proc Note GI Procedure Date 08/04/17 Indication: other (History of Crohn's disease) Pre-procedure Diagnosis History of Crohn's disease Post-procedure Diagnosis Impression: Colonoscopy via colostomy * No evidence of active colitis * Multitude of pseudopolyps. * Random biopsies obtained a sending colon, pseudopolyps, transverse colon, descending colon Colonoscopy via rectum * Procedure material in the rectum the mucosa appears unremarkable. * Moderate-sized internal hemorrhoids Plan: Review pathology as soon as available Continue present regimen with Delzicol 800 mg 3 times daily No contraindication to reanastomosis pending review of pathology Procedure Performed: Colonoscopy (Via colostomy with biopsies colonoscopy via rectum) Surgeon SANDRA DAVIS MD See signature line Research Analyst none Anesthesia Type: MAC Anesthesiologist: DANIE LONGO DO Tourniquet Time none EBL none Transfusion required none Biopsy 1: Ascending colon Biopsy 2: Pseudopolyps Biopsy 3: Transverse colon Additional Biopsy: Descending: Grafts/Implants none Tubes/Drains none Complication(s) none Disposition: home Procedure Description Procedure Description After informed consent, with the patient/relatives understanding the procedure, its indications and potential risks and complications, including but not limited to: Allergic reaction, bleeding, perforation, infection, and after all pertinent questions were answered to the patient's satisfaction, the patient/ relatives signed the witnessed informed consent. Following this, premedication was administered slowly IV push under careful cardiovascular and respiratory monitoring with pulse OXIMETRY, automatic blood pressure, and radiation monitor. Once the sedative effect was achieved, the patient was placed in the left lateral decubitus position, digital rectal examination was performed. The colonoscopy was initially performed through the colostomy bag and subsequently through the rectum. The colonoscope was then introduced via colostomy and advanced under visual control throughout all segments of the colon including: descending colon, splenic flexure, transverse colon, hepatic flexure, ascending colon and finally reaching the cecum which was clearly identified by transillumination, finger indentation and the ileocecal valve. Subsequently the patient was placed in left lateral decubitus and the colonoscope was introduced through the rectum to the end of the residual rectum. Careful examination of the mucosa of the lower gastrointestinal tract both on insertion as well as withdrawal of the instrument disclosed the following findings: PREPARATION QUALITY: [Adequate], RECTAL EXAM: The anorectal area was visualized examined and digital rectal examination performed with the following findings: Deformity of the endorectal area. No evidence of perirectal disease, no masses. COLONIC MUCOSA: The mucosa of all segments of the colon was carefully examined and showed the following findings: Via colostomy the mucosa appears unremarkable with exception multitude of pseudopolyps. Multiple biopsies were obtained. The rectum the mucosa appears unremarkable some residual material is noted in the rectal vault. Moderate- sized internal hemorrhoids are present. Otherwise the examined mucosa appears within normal limits. There is no evidence of inflammatory changes, diverticular formation, other neoplasms, vascular malformation, or any other abnormality. The instrument was then withdrawn, the patient tolerated the procedure well and was transferred out of the Endoscopy Suite awake and in good condition to continue recovery under observation. Copies To: Copies To: CC: SANDRA DAVIS MD, MORDO MD Aug 04, 2017 15:39 Copies To: CC: SANDRA DAVIS MD, MORDO MD Aug 04, 2017 16:00
--- NOTE | 2017-08-04 16:05 | OPPN ---
Date/Time of Note Date/Time of Note DATE: 08/04/17 TIME: 16:02 Proc Note GI Procedure Date 08/04/17 Indication: other (Dyspepsia/G-tube removal) Pre-procedure Diagnosis Dyspepsia/G-tube removal Post-procedure Diagnosis Post-procedure Diagnosis Impression: Mild gastritis. Rule out H. pylori infection. Biopsies obtained Post uneventful gastrostomy tube removal Plan: Continue present regimen Review pathology Ostomy care . Procedure Performed: Endoscopy (Plus biopsies. EGD with G-tube removal) Surgeon SANDRA DAVIS MD See signature line Actuarial Intern none Anesthesia Type: MAC Anesthesiologist: DANIE LONGO DO Tourniquet Time none EBL none Transfusion required none Biopsy 1: Gastric body and antrum Grafts/Implants none Tubes/Drains none Complication(s) none Disposition: home Procedure Description Procedure Date Procedure Description Preoperative Diagnosis: After informed consent, with the patient/relatives understanding the procedure, its indications, potential risks and complications, including but not limited to : allergic reaction, bleeding, perforation or infection, and after all pertinent questions were answered to the patients satisfaction, the patient/ relatives signed witnessed informed consent. Following this, premedication was administered slowly IV push under careful cardiovascular and respiratory monitoring with pulse oximetry, automatic blood pressure, and monitor tech. Once the sedative effect was achieved the patient was place in the left lateral decubitus, the panendoscope was introduced and advanced under visual control. Careful examination of the upper gastrointestinal tract, both on insertion as well as withdrawal of the instrument disclosing the following findings: ESOPHAGUS: the mucosa of the entire esophagus was carefully examined and showed the following findings: the mucosa appears within normal limits. There is no evidence of esophagitis, varices, neoplasm, or stricture. No Hiatal Hernia identified. STOMACH: Upon entrance to the stomach air was insufflated, the gastric ag distended normally. The mucosa of the fundus, body and antrum of the stomach was carefully examined both head-on and on retroflexion, and showed the following findings: A gastrostomy tube is noted in the mid body of the stomach. It was removed without difficulty by securing it with a polypectomy snare and cautery the gastrostomy tube in the outside. The inner portion of the gastrostomy tube was then retrieved upon withdrawal of the instrument. There is erythema and edema in the because of a mild degree. Biopsies were obtained to rule out H. pylori infection. Otherwise the mucosa appears within normal limits with no abnormalities. There is no evidence of ulcers or neoplasm. PYLORUS: The pylorus was carefully examined and showed the following findings: the pylorus appears patent and within normal limits, with no evidence of gastric outlet obstruction. DUODENUM: The duodenal mucosa was carefully examined in the duodenal bulb as well as the second portion of the duodenum and showed the following findings: the mucosa appears unremarkable with no evidence of duodenitis, ulcer or neoplasm. SANDRA DAVIS MD Aug 04, 2017 15:33 Copies To: CC: SANDRA DAVIS MD, MORDO MD Aug 04, 2017 16:05
== END 2017-08-04 17:04 | disposition home or self-care (01) ==
LOC: GIL 12:40
PROVIDERS: ATTEND Internal Medicine Gastroenterology
DX: K29.70 Gastritis, unspecified, without bleeding (principal); K63.5 Polyp of colon; K64.8 Other hemorrhoids
CPT/HCPCS: 88305; 88312; J2250

== ENCOUNTER 2017-09-29 09:39 | Outpatient (CLI) | payer OTHER ==
[~2017-09-29] VITALS: Ht 188 cm; Wt 72.0 kg
[~2017-09-29 09:39] MED LIST changes: -AMOX1TAB10 PO; -FOLI-49 PO; -HYDR-842 PO; -METO5TAB58 G-TUBE; -PANT40SU G-TUBE; +[UNRECOGNIZED DRUG - OTHER]
[2017-09-29 09:45] VITALS: BP 115/73; PULSE 74; RESP 18; Ht 188 cm; Wt 72.0 kg
--- NOTE | 2017-09-29 13:01 | CONS ---
DATE OF CONSULTATION: 09/29/2017 [facility] OUTPATIENT PROGRESS NOTE PLACE OF SERVICE: [facility]. Updated Clinical Summary: A very pleasant 46-year-old gentleman with history of Crohn's disease as well as prior surgery for anal fistula approximately 5 years ago, and a torn meniscus repair on the left knee, presenting with abdominal pain associated with a few weeks' duration of diarrhea. S/p an otherwise uncomplicated diagnostic laparoscopy was converted first to hand assist and then to open exploration when perforated sigmoid colon was found and it was resected with a Deena type procedure and end colostomy as well as core needle liver biopsy, segment 5, due to presence of fatty liver disease, lysis of adhesions, and abdominal lavage on 02/01/17. Failed to wean off the vent through 02/06/17. PE was evaluated 02/07/[address] angio and no evidence found. CT abd/pelvis also did not show actionable findings (no abscess; bowel thickening somewhat expected). Extubated 02/07/17. [employer] called early am 02/13/17 with a few minutes coding, requiring intubation and transfer to ICU. Fortunately, mentally appears to be intact and not on pressors. Lactic acid and CO2 normal with benign appearing abd and viable ostomy. Complicated by fascia dehiscence. S/p exploration of abdomen through recent laparotomy, primary closure of fascia and abdominal lavage on 02/15/17. Reintubated 02/25/17 for bronchoscopy to remove mucus plug. Extubated 02/28/17. Re-intubated 03/05/17 due to respiratory failure and hypoxia. 03/05/17: HIV negative and hepatitis B&C neg. Brain MRI did not contribute to the diagnosis, but no mass effect, obvious hemorrhage or other explanatory findings. S/p trach and PEG 03/09/17. Weaned off the vent by 03/22/17. DC to rehab on 03/22/17. Trach out end of April 2017. Short hospital visit in May 2017 without sig intervention. PEG tube removal scheduled in Jun 2017. Comorbidities: 1. Crohn disease with perforation of sigmoid colon and sepsis. S/p an otherwise uncomplicated diagnostic laparoscopy was converted first to hand assist and then to open exploration when perforated sigmoid colon was found and it was resected with a Deena type procedure and end colostomy as well as core needle liver biopsy, segment 5, due to presence of fatty liver disease, lysis of adhesions, and abdominal lavage on 02/01/17. Complicated by respiratory failure, return trip to ICU and fascia dehiscence. S/p exploration of abdomen through recent laparotomy, primary closure of fascia and abdominal lavage on 02/15. 2. Repair of a fistula approximately 5 years ago. 3. Torn meniscus on the left knee status post repair. 4. S/p trach and PEG 03/09/17 at [facility]. SUBJECTIVE: The patient returns today as a followup for management of his perforated colon in the setting of Crohn's disease that required operative intervention and significant length of stay in the hospital including long stay in the ICU and several issues that had to be managed. The patient has done very well in the last few months and has been able to be off of ventilator and have is trach removed as well as the PEG tube removed. He reports having gained weight with his BMI today at 20.4. No nausea or vomiting and no significant abdominal discomfort. He has been having normal bowel movements through his ostomy and overall has no major complaints. Minor complaints are perhaps a small hernia in the upper portion of his midline incision and also the contour of his lower abdominal wall, which is 2 bulges around the area of the rectus muscles, exacerbated and pronounced by the scarring that we see in the midline. No other major complaints during this visit. OBJECTIVE: VITAL SIGNS: BMI 20.4. Vital signs are normal. ABDOMEN: Soft, nondistended and nontender. The midline incision appears to be well healed. There is a small 2-3 cm hernia in the uppermost portion of the incision. The lower portion appears to be intact and the scarring that is present within the middle, which was due to healing by tertiary intention is exacerbating the appearance of the course of the rectus muscles on both sides of this. The ostomy itself is pink and viable and appears to be healthy. There are no peritoneal signs or guarding of the abdomen. SKIN: His skin appears to be pink and feels warm to touch. NEUROLOGIC: He is awake, alert, and follows commands appropriately. ASSESSMENT AND PLAN: A very pleasant 47-year-old gentleman well known to me from his emergency operation for perforated sigmoid colon due to Crohn's disease in 01/2017, which was very complicated, presenting with signs of healing and showing a clinical picture that at this point, is allowing possible takedown of his ostomy. I believe that physiologically the patient has improved enough that he would be eligible for an operative intervention with acceptable amount of risk. In minimizing the risk, I have requested that we also involved the opinion of one of our esteemed colorectal surgeon colleagues. Given the appearance of his abdominal wall and his concerns for the cosmetic result, I would also encourage a visit with one of our esteemed plastic surgeons in order for their opinion to be on the chart and perhaps to coordinate his care so that we may attend to various needs of this patient and allow him to get back to a normal life without an ostomy bag. I have explained the operation to the patient rather briefly and did not fully consent him for the operation since I need the opinion of our colleagues in this matter as well. We are hoping to have all of the above done and the authorizations obtained for an ostomy takedown perhaps with other procedures including but not limited to hernia repair, abdominoplasty, cholecystectomy and appendectomy or other needed procedures since this would be a major operation and potentially could be complicated by the patient's Crohn's disease. I answered all the patient's questions (no family in the room) and the patient appears to understand and agreed with the plan. With above assessments, I have recommended the followin. Preoperative history and physical with the goal of getting the patient to the operating room in October. 2. Colorectal consultation with regards to Crohn's disease and ostomy takedown. 3. Plastic surgery consultation with regards to patient's abdominal contour and any suggestions or involvement in the operation for better cosmetic result. 4. Please expedite the approval process with the goal of getting the patient to the operating room, perhaps towards the end of October. Thank you again for allowing us to continue to participate in the care of this very pleasant gentleman and his wonderful family. If there are any questions, please feel free to contact me at [phone]. NATURE OF PRESENTING PROBLEM: High risk. COMPLEXITY OF DECISION-MAKING: High complexity. Dictated By: TI RICHMOND/YAN Conf#: [id number] DID#: [id number] MTDD
== END 2017-09-29 15:26 | disposition home or self-care (01) ==
LOC: HPC 09:39
PROVIDERS: ATTEND Transplant Surgery
DX: K50.118 Crohn's disease of large intestine with other complication (principal)
CPT/HCPCS: G0463

== ENCOUNTER 2017-11-16 05:29 | Inpatient (IN) | END 2017-11-19 16:57 | disposition home or self-care (01) | DRG 346 ==

== ENCOUNTER 2017-12-01 11:04 | Outpatient (CLI) | END 2017-12-01 15:52 | disposition home or self-care (01) ==

== ENCOUNTER 2018-06-02 13:40 | Emergency (ER) | END 2018-06-02 16:05 | disposition home or self-care (01) ==